=== PATIENT | male | born 1965 | race Caucasian/White ===

== ENCOUNTER 2017-10-23 15:45 | Observation (INO) | payer OTHER, SELFPAY ==
[2017-10-23] VITALS (10 sets, daily range): BP systolic 111–124; BP diastolic 69–91; PULSE 66–95; RESP 12–16; TEMP 36.4–37.1; O2SAT 96–100; BMI 29.9; BMI 27.8
--- NOTE | 2017-10-23 16:06 | EKG12_ITS ---
Test Reason : CHEST PAIN Blood Pressure : / mmHG Vent. Rate : 080 BPM Atrial Rate : 080 BPM P-R Int : 160 ms QRS Dur : 092 ms QT Int : 396 ms P-R-T Axes : 046 -29 019 degrees QTc Int : 456 ms Normal sinus rhythm Inferior infarct , age undetermined Abnormal ECG Confirmed by CORIE MCKINNEY ([id number]), clinical editor MARILY SILVA ([id number]) on 10/27/2017 1:42:25 PM Referred By: ROSY Confirmed By:CORIE MCKINNEY
--- NOTE | 2017-10-23 16:08 | RAD_ITS ---
STUDY: X-RAY CHEST REASON FOR EXAM: Male, 52 years old. Chest pain, history of [place] 9 years ago with cardiac stents TECHNIQUE: Single AP portable view of the chest. 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 The lungs are clear and expanded. There is no demonstrated pleural abnormality. Normal size heart. Normal mediastinum and [place]. Normal visualized pulmonary arteries. Normal visualized aortic arch and descending thoracic aorta. Normal visualized thoracic spine. Normal visualized ribs, clavicles, and shoulders. There is no demonstrated abnormality of the visualized soft tissue structures of the upper abdomen. RAD/Chest 1 View (Portable) IMPRESSION: Normal x-ray examination of the chest. Electronically Signed: Jd Elder MD at 16:42 EDT , Service support ,
[2017-10-23 16:16] LABS: Absolute Neutrophil Count 3.3 X10^3/uL (2.0-7.7); Basophil# 0.04 X10^3/uL; Basophil% 0.6 % (0-1); Eosinophil# 0.36 X10^3/uL; Eosinophils% 5.7 % (0-5); Hematocrit 44.4 % (40-54); Lymphocyte % 33.3 % (19-41); Mean Corp Hgb Conc 33.8 g/gl (32-36); Mean Corpuscular Volume 97.8 fL (80-94); Monocyte# 0.47 X10^3/uL; Monocyte% 7.5 % (0-10); Neutrophil # 3.32 X10^3/uL (2.7-7.7); Neutrophil % 52.7 % (47-70); Platelet Count 193 K/mm3 (150-450); RBC Distribution Width CV 13.5 % (11.6-14.6); Red Blood Count 4.54 M/mm3 (4.6-6.2); White Blood Count 6.3 K/mm3 (4.4-11.0)
[2017-10-23 16:18] LABS: POSITIVE COUNT NO; POSITIVE DIFFERENTIAL NO; POSITIVE MORPHOLOGY NO
[2017-10-23 16:33] LABS: Anion Gap 6 (5-15); BUN 11 mg/dL (7-18); BUN/Creat Ratio 10.6 RATIO (10-20); Calcium,Total 8.7 mg/dL (8.5-10.1); Chloride 106 mmol/L (98-107); Creatinine, Serum 1.04 mg/dL (0.70-1.30); EST Glomerular Filtration Rate 79 mL/min (>60); Est Glom Filt Rate - Afr Amer 96 mL/min (>60); Estimated Creatinine Clearance 89.12 ml/min; Glucose 119 mg/dL (74-106); Potassium 3.8 mmol/L (3.5-5.1); Sodium Level 138 mmol/L (136-145)
--- NOTE | 2017-10-23 18:24 | ED.DCSUM_ITS ---
- ER Visit Summary Date of Service: 10/23/17 Chief Complaint: Chest pain History of Present Illness: The patient is a 52 M presenting for evaluation secondary chest pain. Patient has a underlying history of coronary artery disease. Patient states that he received 6 stents 9 years ago and his most recent stress test was 4 years ago. Patient was at rest today and he had a sudden onset of chest pressure. Patient states that it was associated with diaphoresis and a feeling of presyncope. Patient states that it did not improve with a 9-year-old nitroglycerin pill that he took so he came to the emergency department. Denies any PE risk factors. Patient does take hypertension high cholesterol medications and occasionally smokes. Physical Examination: Vital signs are within normal limits, patient is afebrile. General: Patient is well-nourished well-developed and in no acute distress. Head: Normocephalic, atraumatic Eyes: Pupils equal round and reactive bilaterally, extra occular motion intact bialterally ENT: Moist mucous membranes Neck: Supple, no lymphadenopathy, no JVD, no meningismus CVS: Heart regular rate and rhythm, no murmurs, rubs or gallops, radial pulses 2 + bilaterally Resp: Respirations nondistressed, lung sounds clear bilaterally Abdomen: Soft, nontender, nondistended, no palpable masses, normal bowel sounds Back: Nontender Extremities: Nontender, atraumatic, active full range of motion, no peripheral edema Skin: warm, no rashes, no petechia Neuro: Alert and oriented x 4, CN 2-12 intact, no lateralizing neurological defecits Psyc: Normal affect Test Results: EKG shows sinus rhythm of [address] segments normal T waves and old Q waves inferiorly. Repeat EKG is unchanged from this. CBC chemistry troponin unremarkable, chest x-ray unremarkable per radiology Emergency Department Course and Treatment: Patient presented for evaluation secondary to chest pain. Patient's workup was negative as noted above. Patient was administered aspirin and nitroglycerin in the emergency department was chest pain-free on reevaluation. Patient's JENN risk score is 3 out of 7 and his heart score is 5. I do believe that he requires admission. Patient will be admitted under the hospitalist. Disposition: Admission Impression: 1 chest pain 2 history of coronary artery disease This note was generated with [employer] dictation software. It may contain incorrect words, spelling, and punctuation that were not noted in review of the chart prior to signing ED Disposition - Plan for ED Patient: Chief Complaint: Chest Pain
--- NOTE | 2017-10-23 19:04 | PCM.HP.STD ---
Problem List (1) Coronary artery disease Status: Chronic (2) H/O percutaneous transluminal coronary angioplasty Status: Chronic (3) HLD (hyperlipidemia) Status: Chronic Qualifiers: (4) HTN (hypertension) Status: Chronic Qualifiers: History of Present Illness Date of Admission: 10/23/17 Chief Complaint: Chest pain. The patient is a 52 year old M with past medical history as mentioned above presented to the medicine because of chest pain. His symptoms started today when he was driving with sudden onset chest pain, retrosternal/epigastric pain, dull aching pain, 5 out of 10 in severity, lasted for few minutes, associated with blurry vision and mild dizziness as well as diaphoresis and he was about to pass out and there was no aggravating or relieving factors. He took nitroglycerin which he has in his car but without improvement. He mentioned that his vision improved but he continued to have some chest discomfort/pressure. He denied associated shortness of breath, syncope but he reported that he was about to pass out. He denied nausea or vomiting. He denied heartburn or abdominal pain. He denied facial numbness or tingling. Denied slurred speech, focal arm or leg weakness. In the emergency room, his vital signs were stable. His routine blood work was unremarkable. His troponin was negative. EKG revealed normal sinus rhythm without evidence of acute ischemic changes. Chest x-ray showed no acute infiltrate, consolidation or effusion. He is being admitted for atypical chest pain for evaluation. Past Medical History Past Medical History (Chronic Problems): Chronic Problems (Last Updated 08/06/17 @ 10:02 by Zee King) Coronary artery disease (Chronic) H/O percutaneous transluminal coronary angioplasty (Chronic) HLD (hyperlipidemia) (Chronic) HTN (hypertension) (Chronic) Old myocardial infarction (Chronic) Atherosclerotic heart disease of [place] coronary artery without angina pectoris (Chronic) Allergies No Known Allergies Allergy (Verified 08/12/17 09:41) Home Medications: Ambulatory Orders Medication Instructions Recorded aspirin 81 mg tablet,delayed 81 mg PO QDAY 08/06/17 release clonazepam 0.5 mg tablet 0.5 mg PO PRN PRN 10 Days #30 tab 08/06/17 clopidogrel 75 mg tablet 75 mg PO QDAY 90 Days #90 tab 08/06/17 ezetimibe 10 mg tablet 10 mg PO QDAY 90 Days #90 tab 08/06/17 famotidine 20 mg tablet 20 mg PO QDAY 08/06/17 lisinopril 10 mg tablet 10 mg PO QDAY 90 Days #90 tab 08/06/17 loratadine 10 mg tablet 10 mg PO QDAY PRN 08/06/17 nitroglycerin 0.4 mg sublingual 0.4 mg SUBLINGUAL Q5M PRN 08/06/17 tablet pravastatin 80 mg tablet 80 mg PO QDAY 90 Days #90 tab 08/06/17 tadalafil 5 mg tablet 5 mg PO QDAY 30 Days #30 tab 08/06/17 Surgical History: - - PTCA. Psychiatric History: No pertinent psych hx Lives: Spouse/ Significant Other Smoking Status: Current some day smoker Tobacco Use: Cigars Alcohol: Heavy Drugs: None - *Family History Maternal History Items: No pertinent history Paternal History Items: No pertinent history Review of Systems Constitutional: Denies: Anorexia, Chills, Fever, Weakness Eyes: Reports: Blurred vision, Double vision. Denies: Drainage, Redness, Vision Change HEENT: Denies: Difficulty Hearing, Ear Pain, Eye Pain, Nasal bleeding, Nasal Congestion, Sore Throat Cardiovascular: Reports: Chest Pain, Light Headedness. Denies: Chest Tightness, Edema, Heaviness, Orthopnea, Palpitations, Paroxysmal Noc. Dyspnea, Syncope Respiratory: Denies: Cough, Pleuritic Pain, Shortness of Breath, Sputum production, Wheezing Gastrointestinal: Reports: Nausea. Denies: Abdominal Pain, Constipation, Diarrhea, Vomiting Genitourinary: Denies: Dysuria, Frequency, Hematuria Musculoskeletal: Denies: Arm Pain, Back Pain, Foot Pain Skin: Denies: Dryness, Jaundice Neurological: Denies: Balance problems, Double vision, Change in Speech, Slurred speech, Focal weakness, Headaches, Incoordination Psychiatric: Reports: Anxiety. Denies: Depression Endocrine: Denies: Change in Body Habitus, Polydipsia VTE Information - Inpt Only VTE Present on Admission: No VTE Mechan Device Prophylaxis: None VTE Pharm Prophylaxis ordered?: No - Physical Exam General: Alert, Oriented x3, Cooperative, No apparent distress HEENT: Atraumatic, PERRLA, EOMI Oral: Moist Mucosa, No Gingival or Mucosal Lesions/ Ulcerations Neck: Supple, No JVD, Negative Carotid Bruits, Trachea Midline, Thyroid Normal Size and Texture Lungs: Clear to auscultation, No rhonchi, No wheeze, No rales, Diminished Cardiovascular: Regular rate, Regular Rhythm, Normal S1, Normal S2, No murmurs, PMI Normal Abdomen: Bowel Sounds Present, Soft, Non Tender, Non-Distended, No Hepato-splenomegaly Extremities: No clubbing, No cyanosis, No edema Skin: No rashes, No breakdown Lymphatic: No Cervical, Supraclavicular, or Inguinal Adenopathy Neurological: Cranial nerves II-XII grossly intact, Motor Exam 5/5 strength throughout Psych/Mental Status: Normal Affect, Appropriate, Alert and oriented to time, place, person, mood and affect Vital Signs Temp Pulse Resp BP Pulse Ox 98.7 F 68 16 120/81 H 98 10/23/17 18:55 10/23/17 18:55 10/23/17 18:55 10/23/17 18:55 10/23/17 18:55 Oxygen Flow Rate (L/min) 2 Oxygen Delivery Method Room Air Weight: 204 lb 12.951 oz Body Mass Index (BMI) 27.8 Laboratory Tests 10/23/17 10/23/17 Range/Units 15:50 15:50 WBC 6.3 (4.4-11.0) K/mm3 RBC 4.54 L (4.6-6.2) M/mm3 Hgb 15.0 (13.0-16.5) g/dl Hct 44.4 (40-54) % MCV 97.8 H (80-94) fL MCH 33.0 H (27.0-32.0) pg MCHC 33.8 (32-36) g/gl RDW 13.5 (11.6-14.6) % RDW Differential 48.0 H (35.1-43.9) fl Plt Count 193 (150-450) K/mm3 MPV 10.0 (6.2-12.0) fl Immature Gran % (Auto) 0.200 (0.0-0.9) % Neut % (Auto) 52.7 (47-70) % Lymph % (Auto) 33.3 (19-41) % [place] % (Auto) 7.5 (0-10) % Eos % (Auto) 5.7 H (0-5) % Baso % (Auto) 0.6 (0-1) % Absolute Neuts (auto) 3.3 (2.0-7.7) X10^3/uL Absolute Lymphs (auto) 2.10 (0.83-4.51) X10^3/ul Total Counted Not Reportable Sodium 138 (136-145) mmol/L Potassium 3.8 (3.5-5.1) mmol/L Chloride 106 (98-107) mmol/L Carbon Dioxide 26.0 (21.0-32.0) mmol/L Anion Gap 6 (5-15) BUN 11 (7-18) mg/dL Creatinine 1.04 (0.70-1.30) mg/dL Estim Creat Clear Calc 89.12 ml/min Est GFR (MDRD) Af Amer 96 (>60) mL/min Est GFR (MDRD) Non-Af 79 (>60) mL/min BUN/Creatinine Ratio 10.6 (10-20) RATIO Glucose 119 H (74-106) mg/dL Calcium 8.7 (8.5-10.1) mg/dL Troponin I < 0.02 (<0.06) ng/mL Clinical Impression(s) from Imaging Studies Chest X-Ray 10/23/17 16:08 IMPRESSION: Normal x-ray examination of the chest. Electronically Signed: Jd Elder MD at 16:42 EDT , Service support , Assessment/Plan This is a 52 years old male patient presented to the medicine because of chest pain with blurry vision and is being admitted for evaluation. #1 atypical chest pain: With symptoms of blurry vision and mild dizziness. EKG revealed no acute ischemic changes. Troponin was negative. Vital signs are stable. No symptoms suggestive of stroke. He denied numbness or tingling, no focal arm or leg weakness. Chest x-ray showed no acute findings. He does have a history of CAD status post multiple stents. Plan: Admit to PCU for observation, cardiac monitoring, continue aspirin and Plavix, serial cardiac enzymes, repeat EKG tomorrow morning, nuclear stress test tomorrow morning if cardiac enzymes are negative. #2 CAD status post stents: EKG and troponin was unremarkable. Plan as above. Continue aspirin, Plavix, and lisinopril. #3 hypertension: Blood pressure stable, continue lisinopril. #4 hyperlipidemia: Continue statins. #5 DVT prophylaxis: Low risk patient, no prophylaxis indicated. This note was generated with [employer] software. It may contain incorrect words, spelling, and punctuation that were not noted in checking the note before signing. Code Visit OBSV E&M: 03997 Initial observation care L3
--- NOTE | 2017-10-23 19:11 | HP.PCM_ITS ---
Problem List (1) Coronary artery disease Status: Chronic (2) H/O percutaneous transluminal coronary angioplasty Status: Chronic (3) HLD (hyperlipidemia) Status: Chronic Qualifiers: (4) HTN (hypertension) Status: Chronic Qualifiers: History of Present Illness Date of Admission: 10/23/17 Chief Complaint: Chest pain. The patient is a 52 year old M with past medical history as mentioned above presented to the medicine because of chest pain. His symptoms started today when he was driving with sudden onset chest pain, retrosternal/epigastric pain, dull aching pain, 5 out of 10 in severity, lasted for few minutes, associated with blurry vision and mild dizziness as well as diaphoresis and he was about to pass out and there was no aggravating or relieving factors. He took nitroglycerin which he has in his car but without improvement. He mentioned that his vision improved but he continued to have some chest discomfort/ pressure. He denied associated shortness of breath, syncope but he reported that he was about to pass out. He denied nausea or vomiting. He denied heartburn or abdominal pain. He denied facial numbness or tingling. Denied slurred speech, focal arm or leg weakness. In the emergency room, his vital signs were stable. His routine blood work was unremarkable. His troponin was negative. EKG revealed normal sinus rhythm without evidence of acute ischemic changes. Chest x-ray showed no acute infiltrate, consolidation or effusion. He is being admitted for atypical chest pain for evaluation. Past Medical History Past Medical History (Chronic Problems): Chronic Problems (Last Updated 08/06/17 @ 10:02 by Zee King) Coronary artery disease (Chronic) H/O percutaneous transluminal coronary angioplasty (Chronic) HLD (hyperlipidemia) (Chronic) HTN (hypertension) (Chronic) Old myocardial infarction (Chronic) Atherosclerotic heart disease of [place] coronary artery without angina pectoris (Chronic) Allergies No Known Allergies Allergy (Verified 08/12/17 09:41) Home Medications: Ambulatory Orders Medication Instructions Recorded aspirin 81 mg tablet,delayed 81 mg PO QDAY 08/06/17 release clonazepam 0.5 mg tablet 0.5 mg PO PRN PRN 10 Days #30 tab 08/06/17 clopidogrel 75 mg tablet 75 mg PO QDAY 90 Days #90 tab 08/06/17 ezetimibe 10 mg tablet 10 mg PO QDAY 90 Days #90 tab 08/06/17 famotidine 20 mg tablet 20 mg PO QDAY 08/06/17 lisinopril 10 mg tablet 10 mg PO QDAY 90 Days #90 tab 08/06/17 loratadine 10 mg tablet 10 mg PO QDAY PRN 08/06/17 nitroglycerin 0.4 mg sublingual 0.4 mg SUBLINGUAL Q5M PRN 08/06/17 tablet pravastatin 80 mg tablet 80 mg PO QDAY 90 Days #90 tab 08/06/17 tadalafil 5 mg tablet 5 mg PO QDAY 30 Days #30 tab 08/06/17 Surgical History: - - PTCA. Psychiatric History: No pertinent psych hx Lives: Spouse/ Significant Other Smoking Status: Current some day smoker Tobacco Use: Cigars Alcohol: Heavy Drugs: None - *Family History Maternal History Items: No pertinent history Paternal History Items: No pertinent history Review of Systems Constitutional: Denies: Anorexia, Chills, Fever, Weakness Eyes: Reports: Blurred vision, Double vision. Denies: Drainage, Redness, Vision Change HEENT: Denies: Difficulty Hearing, Ear Pain, Eye Pain, Nasal bleeding, Nasal Congestion, Sore Throat Cardiovascular: Reports: Chest Pain, Light Headedness. Denies: Chest Tightness , Edema, Heaviness, Orthopnea, Palpitations, Paroxysmal Noc. Dyspnea, Syncope Respiratory: Denies: Cough, Pleuritic Pain, Shortness of Breath, Sputum production, Wheezing Gastrointestinal: Reports: Nausea. Denies: Abdominal Pain, Constipation, Diarrhea, Vomiting Genitourinary: Denies: Dysuria, Frequency, Hematuria Musculoskeletal: Denies: Arm Pain, Back Pain, Foot Pain Skin: Denies: Dryness, Jaundice Neurological: Denies: Balance problems, Double vision, Change in Speech, Slurred speech, Focal weakness, Headaches, Incoordination Psychiatric: Reports: Anxiety. Denies: Depression Endocrine: Denies: Change in Body Habitus, Polydipsia VTE Information - Inpt Only VTE Present on Admission: No VTE Mechan Device Prophylaxis: None VTE Pharm Prophylaxis ordered?: No - Physical Exam General: Alert, Oriented x3, Cooperative, No apparent distress HEENT: Atraumatic, PERRLA, EOMI Oral: Moist Mucosa, No Gingival or Mucosal Lesions/ Ulcerations Neck: Supple, No JVD, Negative Carotid Bruits, Trachea Midline, Thyroid Normal Size and Texture Lungs: Clear to auscultation, No rhonchi, No wheeze, No rales, Diminished Cardiovascular: Regular rate, Regular Rhythm, Normal S1, Normal S2, No murmurs, PMI Normal Abdomen: Bowel Sounds Present, Soft, Non Tender, Non-Distended, No Hepato- splenomegaly Extremities: No clubbing, No cyanosis, No edema Skin: No rashes, No breakdown Lymphatic: No Cervical, Supraclavicular, or Inguinal Adenopathy Neurological: Cranial nerves II-XII grossly intact, Motor Exam 5/5 strength throughout Psych/Mental Status: Normal Affect, Appropriate, Alert and oriented to time, place, person, mood and affect Vital Signs Temp Pulse Resp BP Pulse Ox 98.7 F 68 16 120/81 H 98 10/23/17 18:55 10/23/17 18:55 10/23/17 18:55 10/23/17 18:55 10/23/17 18:55 Oxygen Flow Rate (L/min) 2 Oxygen Delivery Method Room Air Weight: 204 lb 12.951 oz Body Mass Index (BMI) 27.8 Laboratory Tests 3 10/23/17 10/23/17 Range/Units 15:50 15:50 WBC 6.3 (4.4-11.0) K/mm3 RBC 4.54 L (4.6-6.2) M/mm3 Hgb 15.0 (13.0-16.5) g/dl Hct 44.4 (40-54) % MCV 97.8 H (80-94) fL MCH 33.0 H (27.0-32.0) pg MCHC 33.8 (32-36) g/gl RDW 13.5 (11.6-14.6) % RDW Differential 48.0 H (35.1-43.9) fl Plt Count 193 (150-450) K/mm3 MPV 10.0 (6.2-12.0) fl Immature Gran % (Auto) 0.200 (0.0-0.9) % Neut % (Auto) 52.7 (47-70) % Lymph % (Auto) 33.3 (19-41) % [place] % (Auto) 7.5 (0-10) % Eos % (Auto) 5.7 H (0-5) % Baso % (Auto) 0.6 (0-1) % Absolute Neuts (auto) 3.3 (2.0-7.7) X10^3/uL Absolute Lymphs (auto) 2.10 (0.83-4.51) X10^3/ul Total Counted Not Reportable Sodium 138 (136-145) mmol/L Potassium 3.8 (3.5-5.1) mmol/L Chloride 106 (98-107) mmol/L Carbon Dioxide 26.0 (21.0-32.0) mmol/L Anion Gap 6 (5-15) BUN 11 (7-18) mg/dL Creatinine 1.04 (0.70-1.30) mg/dL Estim Creat Clear Calc 89.12 ml/min Est GFR (MDRD) Af Amer 96 (>60) mL/min Est GFR (MDRD) Non-Af 79 (>60) mL/min BUN/Creatinine Ratio 10.6 (10-20) RATIO Glucose 119 H (74-106) mg/dL Calcium 8.7 (8.5-10.1) mg/dL Troponin I < 0.02 (<0.06) ng/mL Clinical Impression(s) from Imaging Studies Chest X-Ray 10/23/17 16:08 IMPRESSION: Normal x-ray examination of the chest. Electronically Signed: Jd Elder MD at 16:42 EDT , Service support , Assessment/Plan This is a 52 years old male patient presented to the medicine because of chest pain with blurry vision and is being admitted for evaluation. #1 atypical chest pain: With symptoms of blurry vision and mild dizziness. EKG revealed no acute ischemic changes. Troponin was negative. Vital signs are stable. No symptoms suggestive of stroke. He denied numbness or tingling, no focal arm or leg weakness. Chest x-ray showed no acute findings. He does have a history of CAD status post multiple stents. Plan: Admit to PCU for observation, cardiac monitoring, continue aspirin and Plavix, serial cardiac enzymes, repeat EKG tomorrow morning, nuclear stress test tomorrow morning if cardiac enzymes are negative. #2 CAD status post stents: EKG and troponin was unremarkable. Plan as above. Continue aspirin, Plavix, and lisinopril. #3 hypertension: Blood pressure stable, continue lisinopril. #4 hyperlipidemia: Continue statins. #5 DVT prophylaxis: Low risk patient, no prophylaxis indicated. This note was generated with [employer] software. It may contain incorrect words, spelling, and punctuation that were not noted in checking the note before signing. Code Visit OBSV E&M: 45988 Initial observation care L3
[2017-10-23] MEDS: 0.9% Normal Saline 1,000 ML 75 ML IV (20:56)
[2017-10-24 02:56] VITALS: PULSE 76
[2017-10-24 03:01] VITALS: BP 104/67; PULSE 62; RESP 14; TEMP 36.7; O2SAT 96
--- NOTE | 2017-10-24 04:56 | EKG12_ITS ---
Test Reason : AM EKG Blood Pressure : / mmHG Vent. Rate : 074 BPM Atrial Rate : 074 BPM P-R Int : 158 ms QRS Dur : 096 ms QT Int : 388 ms P-R-T Axes : 047 -19 032 degrees QTc Int : 430 ms Normal sinus rhythm Normal ECG When compared with ECG of 23-OCT-2017 16:07, MANUAL COMPARISON REQUIRED, DATA IS UNCONFIRMED Confirmed by CORIE MCKINNEY ([id number]), editor managing director MARILY SILVA ([id number]) on 10/27/2017 3:29:32 PM Referred By: KUMAR Confirmed By:CORIE MCKINNEY
[2017-10-24 05:42] VITALS: BP 126/74; PULSE 75; RESP 14; TEMP 36.8; O2SAT 96
[2017-10-24] MEDS: Lisinopril 10 MG Tablet PO (05:47)
[2017-10-24] MEDS: Clopidogrel Bisulfate 75 MG Tablet PO (05:47)
--- NOTE | 2017-10-24 05:55 | EKG12_ITS ---
Test Reason : REPEAT Blood Pressure : / mmHG Vent. Rate : 076 BPM Atrial Rate : 076 BPM P-R Int : 162 ms QRS Dur : 096 ms QT Int : 412 ms P-R-T Axes : 049 -27 036 degrees QTc Int : 463 ms Normal sinus rhythm Inferior infarct , age undetermined Abnormal ECG Confirmed by CORIE MCKINNEY ([id number]), medical editor MARILY SILVA ([id number]) on 10/27/2017 1:42:44 PM Referred By: VANNA Confirmed By:CORIE MCKINNEY
[2017-10-24] MEDS: Ezetimibe 10 MG Tablet PO (09:53)
[2017-10-24] MEDS: Famotidine 20 MG Tablet PO (09:53)
--- NOTE | 2017-10-24 09:58 | STRESSREP ---
Stress Test Report Exercise myocardial perfusion stress test. 52-year-old man with a history of chest pain. Stress protocol: Resting EKG demonstrates normal sinus rhythm with a rate of 76 bpm normal intervals and noted resting blood pressure is 130/82 mmHg. The patient exercised according to the regular Abhinav protocol for total duration of 8 minutes completing 2 minutes into stage III of the Abhinav protocol. The maximum heart rate attained was 162 bpm which was 97% maximum predicted heart rate the maximum workload attained was 10.1 metabolic equivalents. At rest there were no ST or T-wave changes noticed ischemia peak exercise upsloping ST changes were noted with no meet the criteria for ischemia. No clinical angina was noted no arrhythmias were noted. The test was terminated due to leg fatigue. The resting blood pressure was 130/82 with a final blood pressure 134/78. Myocardial perfusion protocol. 11.8 mCi of technetium 99m sestamibi was injected at rest. The patient exercised according to regular Abhinav protocol for 8 minutes attaining 97% maximum predicted heart rate at peak exercise 34.1 mCi of technetium 99m sestamibi was injected stress images were obtained stress and rest images were reconstructed and compared in the short axis vertical long and horizontal long axis. Gated images were also obtained. Perfusion SPECT analysis. Review of the stress images demonstrate normal uptake of tracer noted in all areas of the myocardium. The resting images similarly demonstrate normal uptake of tracer noted in all areas of the myocardium. No areas of reversibility are noted suggest ischemia. No previous infarct is noted. Gated SPECT analysis. Gated ejection fraction is 66%. Conclusion: Normal exercise myocardial perfusion stress test at a high workload. Preserved ejection fraction. No angina noted.
[2017-10-24 10:56] VITALS: BP 104/64; PULSE 72; RESP 16; TEMP 36.7; O2SAT 99
--- NOTE | 2017-10-24 11:10 | PCM.DC ---
- Discharge Diagnoses Current Active Problems: Current Active and Chronic Problems (Last Updated 08/06/17 @ 10:02 by Zee King) Coronary artery disease (Chronic) You will use the following diet at home:: Cardiac Discharge Activity: Return to Normal Activity Allergies/Adverse Reactions: Allergies No Known Allergies Allergy (Verified 08/12/17 09:41) Medications to take at Discharge aspirin 81 mg tablet,delayed release 81 mg PO QDAY 08/06/17 clonazepam 0.5 mg tablet 0.5 mg PO BID 10 Days #30 tab 08/06/17 clopidogrel 75 mg tablet 75 mg PO QDAY 90 Days #90 tab 08/06/17 ezetimibe 10 mg tablet 10 mg PO QDAY 90 Days #90 tab 08/06/17 famotidine 20 mg tablet 20 mg PO QDAY 08/06/17 loratadine 10 mg tablet 10 mg PO QDAY PRN 08/06/17 nitroglycerin 0.4 mg sublingual tablet 0.4 mg SUBLINGUAL Q5M PRN 08/06/17 pravastatin 80 mg tablet 80 mg PO QDAY 90 Days #90 tab 08/06/17 tadalafil 5 mg tablet 5 mg PO PRN PRN 30 Days #30 tab 08/06/17 Lisinopril [Prinivil] 5 mg PO QDAY 90 Days #90 tab 10/24/17 Primary Care Physician: Sergei Henley MD [Primary Care Provider] - Please follow up with your Primary Care Physician in: IN 2-3 WEEKS
--- NOTE | 2017-10-24 11:11 | DS.PCM_ITS ---
Discharge Date and Diagnosis Date of Admission: 10/23/17 Date of Discharge: 10/24/17 - Primary Discharge Diagnosis atypical chest pain most probably due to cart/musculoskeletal pain - Secondary Discharge Diagnosis Chronic Problems (Last Updated 08/06/17 @ 10:02 by Zee King) Coronary artery disease (Chronic) H/O percutaneous transluminal coronary angioplasty (Chronic) HLD (hyperlipidemia) (Chronic) HTN (hypertension) (Chronic) Old myocardial infarction (Chronic) Atherosclerotic heart disease of [place] coronary artery without angina pectoris (Chronic) Hospital Course and Treatment Imaging Results: 10/24/17 05:55 Nuclear Stress Test - Treadmil [NM] Routine Summary of Care Provided: [] This is a 52 years old male patient presented to the medicine because of chest pain with blurry vision and is being admitted for evaluation. #1 atypical chest pain most probably due to cart/musculoskeletal pain:. EKG revealed no acute ischemic changes. Troponin was negative. Vital signs are stable. No symptoms suggestive of stroke. He denied numbness or tingling, no focal arm or leg weakness. Chest x-ray showed no acute findings. He does have a history of CAD status post multiple stents. Patient was admitted on the monitored bed. continue aspirin and Plavix, serial cardiac enzymes, repeat EKG does not show any acute change. nuclear stress test done and does not show stress-induced ischemia. EF 66%. Reported as normal exercise myocardial perfusion stress test at high workload. No Angina noted. #2 CAD status post stents: EKG and troponin was unremarkable. Plan as above. Continue aspirin, Plavix, and lisinopril. #3 hypertension: Blood pressure stable, continue lisinopril. #4 hyperlipidemia: Continue statins. #5 DVT prophylaxis: Low risk patient, no prophylaxis indicated. Discharge meds reconciliation done. Discharge follow-up instructions completed. Discharge Activity: Return to Normal Activity Home Medications: Medications to take at Discharge aspirin 81 mg tablet,delayed release 81 mg PO QDAY 08/06/17 clonazepam 0.5 mg tablet 0.5 mg PO BID 10 Days #30 tab 08/06/17 clopidogrel 75 mg tablet 75 mg PO QDAY 90 Days #90 tab 08/06/17 ezetimibe 10 mg tablet 10 mg PO QDAY 90 Days #90 tab 08/06/17 famotidine 20 mg tablet 20 mg PO QDAY 08/06/17 loratadine 10 mg tablet 10 mg PO QDAY PRN 08/06/17 nitroglycerin 0.4 mg sublingual tablet 0.4 mg SUBLINGUAL Q5M PRN 08/06/17 pravastatin 80 mg tablet 80 mg PO QDAY 90 Days #90 tab 08/06/17 tadalafil 5 mg tablet 5 mg PO PRN PRN 30 Days #30 tab 08/06/17 Lisinopril [Prinivil] 5 mg PO QDAY 90 Days #90 tab 10/24/17 Primary Care Physician: Sergei Henley MD [Primary Care Provider] - Please follow up with your Primary Care Physician in: IN 2-3 WEEKS Meaningful Use Info Meaningful Use Diagnoses (Choose all that apply): None applicable Code Visit OBSV E&M: 79489 Observation care discharge
[2017-10-24 11:14] VITALS: PULSE 85
== END 2017-10-24 11:10 | disposition home or self-care (01) ==
LOC: ED 18:03 → PCU 18:18
PROVIDERS: Admitting Provider Hospitalist; Emergency Provider Emergency Medicine; Family Provider Family Medicine; PCP Family Medicine; Visit Provider Internal Medicine
DX: R07.89 Other chest pain (principal); I25.10 Atherosclerotic heart disease of native coronary artery without angina pectoris; I10 Essential (primary) hypertension; E78.5 Hyperlipidemia, unspecified; Z79.899 Other long term (current) drug therapy; Z79.82 Long term (current) use of aspirin; Z79.02 Long term (current) use of antithrombotics/antiplatelets; F17.290 Nicotine dependence, other tobacco product, uncomplicated; Z95.5 Presence of coronary angioplasty implant and graft; I25.2 Old myocardial infarction
CPT/HCPCS: 36415; 71045; 78452; 80048; 84484; 85025; 93005; 93017; 96360; 96361; 99218; 99285; 99406; A9500; J7030; A4216; G0378

== ENCOUNTER → 2019-01-14 08:31 | Outpatient (CLI) | payer OTHER, SELFPAY ==
[2018-07-28 08:20] VITALS: BMI 28.8
[2019-01-14 10:39] LABS: ALB/GLOB Ratio 1.1 RATIO (0.9-2.4); AST(SGOT) 35 U/L (15-37); Alanine Aminotransfer ALT/SGPT 50 U/L (16-61); Alkaline Phosphatase 85 U/L (45-117); Anion Gap 6 (5-15); BUN 12 mg/dL (7-18); BUN/Creat Ratio 13.3 RATIO (10-20); Calcium,Total 9.3 mg/dL (8.5-10.1); Chloride 107 mmol/L (98-107); Cholesterol 156 mg/dL (200); EST Glomerular Filtration Rate 92 mL/min (>60); Est Glom Filt Rate - Afr Amer 112 mL/min (>60); Globulin 3.6 g/dL (2.2-4.2); Glucose 102 mg/dL (74-106); High Density Lipoprotein 58 mg/dL; Potassium 4.6 mmol/L (3.5-5.1); Protein, Total 7.6 g/dL (6.4-8.2); Sodium Level 140 mmol/L (136-145); Triglycerides 103 mg/dL; Very Low Density Lipoprotein 21 mg/dL (5-40)
== END ==
PROVIDERS: Family Provider Family Medicine; PCP Family Medicine; Referring Provider Family Medicine; Visit Provider Family Medicine
DX: F43.29 Adjustment disorder with other symptoms (principal)
CPT/HCPCS: 36415; 80053; 80061

== ENCOUNTER → 2019-08-24 07:04 | Outpatient (CLI) | payer OTHER, SELFPAY ==
[2019-08-16 08:34] VITALS: BMI 28.2
[2019-08-24 10:45] LABS: ALB/GLOB Ratio 0.9 RATIO (0.9-2.4); AST(SGOT) 27 U/L (15-37); Alanine Aminotransfer ALT/SGPT 49 U/L (16-61); Albumin, Serum 3.8 g/dL (3.2-5.0); Alkaline Phosphatase 72 U/L (45-117); Anion Gap 3 (5-15); BUN 19 mg/dL (7-18); BUN/Creat Ratio 19.2 RATIO (10-20); Chloride 108 mmol/L (98-107); Cholesterol 186 mg/dL (200); Creatinine, Serum 0.99 mg/dL (0.70-1.30); EST Glomerular Filtration Rate 83 mL/min (>60); Est Glom Filt Rate - Afr Amer 101 mL/min (>60); Globulin 4.1 g/dL (2.2-4.2); Glucose 104 mg/dL (74-106); High Density Lipoprotein 60 mg/dL; PSA,Total - Annual Screen 0.55 ng/mL (0.00-4.00); Potassium 4.2 mmol/L (3.5-5.1); Protein, Total 7.9 g/dL (6.4-8.2); Sodium Level 140 mmol/L (136-145); Triglycerides 84 mg/dL; Very Low Density Lipoprotein 17 mg/dL (5-40)
[2019-08-24 10:49] LABS: AST(SGOT) 29 U/L (15-37); Alanine Aminotransfer ALT/SGPT 51 U/L (16-61); Albumin, Serum 3.9 g/dL (3.2-5.0); Alkaline Phosphatase 73 U/L (45-117); Bilirubin, Direct 0.06 mg/dL (0.00-0.30); Cholesterol 186 mg/dL (200); Globulin 3.9 g/dL (2.2-4.2); High Density Lipoprotein 61 mg/dL; Protein, Total 7.8 g/dL (6.4-8.2); Triglycerides 78 mg/dL; Very Low Density Lipoprotein 16 mg/dL (5-40)
== END ==
PROVIDERS: Family Provider Family Medicine; PCP Family Medicine; Referring Provider Internal Medicine Cardiovascular Disease; Visit Provider Internal Medicine Cardiovascular Disease
DX: I25.10 Atherosclerotic heart disease of native coronary artery without angina pectoris (principal); I10 Essential (primary) hypertension; E78.00 Pure hypercholesterolemia, unspecified; E78.5 Hyperlipidemia, unspecified; N52.9 Male erectile dysfunction, unspecified; Z95.5 Presence of coronary angioplasty implant and graft
CPT/HCPCS: 36415; 80053; 80061; 80076; 84153; G0103

== ENCOUNTER → 2019-08-26 12:02 | Outpatient (CLI) | payer OTHER, SELFPAY ==
[2019-08-16 08:34] VITALS: BMI 28.2
--- NOTE | 2019-08-26 12:06 | RAD_ITS ---
STUDY: X-RAY - RIGHT ANKLE REASON FOR EXAM: Male, 53 years old. Rolled right ankle today, swelling and pain lateral TECHNIQUE: 3 view(s) of the ankle. COMPARISON: None. FINDINGS: No fracture or dislocation. Large ankle joint effusion. Joint spaces are otherwise well-maintained. Marked lateral soft tissue swelling. Soft tissues and bony structures are otherwise unremarkable. RAD/Ankle min 3 Views IMPRESSION: 1. Joint effusion. 2. Marked lateral soft tissue swelling. Otherwise negative study. Electronically Signed: Felicita Turk MD at 17:55 EST Tel , Service support ,
== END ==
PROVIDERS: PCP Family Medicine; Referring Provider Nurse Practitioner Family; Visit Provider Nurse Practitioner Family
DX: S99.911A Unspecified injury of right ankle, initial encounter (principal); X50.1XXA Overexertion from prolonged static or awkward postures, initial encounter
CPT/HCPCS: 73610

== ENCOUNTER → 2020-09-20 08:24 | Outpatient (CLI) | payer OTHER, SELFPAY ==
[2020-08-14 08:21] VITALS: BMI 29.1
[2020-09-20 10:39] LABS: AST(SGOT) 28 U/L (15-37); Alanine Aminotransfer ALT/SGPT 52 U/L (16-61); Alkaline Phosphatase 69 U/L (45-117); Anion Gap 5 (5-15); BUN 12 mg/dL (7-18); BUN/Creat Ratio 11.3 RATIO (10-20); Calcium,Total 9.5 mg/dL (8.5-10.1); Chloride 106 mmol/L (98-107); Creatinine, Serum 1.06 mg/dL (0.70-1.30); EST Glomerular Filtration Rate 77 mL/min (>60); Est Glom Filt Rate - Afr Amer 93 mL/min (>60); Globulin 4.2 g/dL (2.2-4.2); Glucose 102 mg/dL (74-106); PSA,Total - Annual Screen 0.96 ng/mL (0.00-4.00); Potassium 4.7 mmol/L (3.5-5.1); Protein, Total 8.2 g/dL (6.4-8.2); Sodium Level 139 mmol/L (136-145)
[2020-09-20 10:42] LABS: AST(SGOT) 33 U/L (15-37); Alanine Aminotransfer ALT/SGPT 52 U/L (16-61); Alkaline Phosphatase 75 U/L (45-117); Bilirubin, Direct 0.11 mg/dL (0.00-0.30); Cholesterol 198 mg/dL (200); Globulin 4.2 g/dL (2.2-4.2); High Density Lipoprotein 71 mg/dL; Protein, Total 8.2 g/dL (6.4-8.2); Triglycerides 135 mg/dL; Very Low Density Lipoprotein 27 mg/dL (5-40)
== END ==
PROVIDERS: PCP Family Medicine; Referring Provider Family Medicine; Visit Provider Internal Medicine Cardiovascular Disease
DX: Z12.5 Encounter for screening for malignant neoplasm of prostate (principal); E78.00 Pure hypercholesterolemia, unspecified; I25.10 Atherosclerotic heart disease of native coronary artery without angina pectoris
CPT/HCPCS: 36415; 80053; 80061; 80076; 84153; G0103

== ENCOUNTER 2021-10-30 14:59 | Observation (INO) | payer OTHER, SELFPAY ==
[2021-10-30] VITALS (15 sets, daily range): BP systolic 89–178; BP diastolic 52–97; PULSE 53–112; RESP 13–19; TEMP 2.7–36.9; O2SAT 98–100; BMI 30.2; BMI 29.0
--- NOTE | 2021-10-30 15:10 | ED.VIS.CHEST ---
HPI History of Present Illness Chief Complaint: Chest Pain Informant: patient Onset/Context/Timing Onset: Today and Hours (1) Activity at onset: gradual Timing: Continuous Quality: Positive for Tightness Location: Right Chest and Left Chest Worsened By: Breathing Relieved By: - (It improves briefly after exhaling after taking a deep breath) Associated Symptoms: Negative for Nausea, Vomiting, Diaphoresis, Dyspnea, Cough, Fever, Lightheadedness, Acid Reflux and Palpitations Narrative Narrative: Patient presents with chest pain that began approximately 1 hour prior to arrival. Patient states he was driving when this began. Patient states it is mainly over his upper chest. Patient describes it as a tightness. Patient states it is starting to radiate into his left arm. Patient states it is worse whenever he takes a deep breath but feels better briefly whenever he exhales. Patient denies any nausea or vomiting. Patient denies any diaphoresis. Patient denies any shortness of breath or cough. Patient denies any lightheadedness. Patient denies any palpitations. CVD Risk Factors: Positive for Hypertension and Hypercholesterolemia; Negative for Diabetes, Family History 1' </=55 and Smoking PE Risk Factors: Negative for Recent Travel/Surgery, Recent Immobilization, Prior DVT or PE, Cancer and OCP + Smoking + >/=35 PFSH PFSH Medical History Atherosclerotic heart disease of [place] coronary artery without angina pectoris Essential hypertension HLD (hyperlipidemia) Old myocardial infarction Presence of stent in coronary artery (~06/19/10) Home Medications aspirin 81 mg tablet,delayed release 81 mg PO QDAY 08/06/17 [History Last Taken 10/23/17] clopidogrel 75 mg tablet 75 mg PO QDAY 90 Days #90 tab 08/06/17 [History Last Taken 10/23/17] ezetimibe 10 mg tablet 10 mg PO QDAY 90 Days #90 tab 08/06/17 [History Last Taken 10/23/17] loratadine 10 mg tablet 10 mg PO QDAY PRN 08/06/17 [History Last Taken 10/23/17] nitroglycerin 0.4 mg sublingual tablet 0.4 mg SUBLINGUAL Q5M PRN 08/06/17 [History Last Taken 10/23/17] pravastatin 80 mg tablet 80 mg PO QDAY 90 Days #90 tab 08/06/17 [History Last Taken 10/23/17] Allergy/AdvReac Type Severity Reaction Status Date / Time No Known Allergies Allergy Verified 10/30/21 15:07 Family History Grandfather , age 76 CVA (cerebral vascular accident) Surgical History History of left heart catheterization (~12/2010) Presence of coronary angioplasty implant and graft (~06/19/10) Social History Smoking Status: Former smoker how long ago did patient quit smokin alcohol intake: current alcohol intake frequency: 0-2 drinks per day Alcohol type: beer substance use type: does not use caffeine: Yes Type: coffee Number of servings: 2 what type of physical activity do you participate in: none seatbelt use: sometimes do you feel safe at home: Yes ROS ROS ED Constitutional Constitutional ED: Denies chills or fever(s) Eyes Eyes: Denies blurry vision or change in vision ENT ENT ED: Denies rhinorrhea or sore throat Cardiovascular Cardiovascular: Reports chest pain; Denies palpitations Respiratory/Chest Respiratory/Chest: Denies cough or dyspnea Gastrointestinal Gastrointestinal: Denies abdominal pain, nausea or vomiting Genitourinary Genitourinary ED: Denies dysuria or hematuria Musculoskeletal Musculoskeletal: Denies back pain or neck pain Integumentary Denies abscess or rash Neurologic Neurologic: Denies headache(s) or weakness Allergic/Immunologic Allergic/Immunologic ED: Denies mouth swelling or urticaria EXAM Physical Exam Const Vital Signs: 10/30/21 15:00 10/30/21 15:04 10/30/21 15:16 Temperature 97.5 F L Temperature Source Temporal Pulse Rate 106 H Respiratory Rate 17 Respiratory Effort Normal Blood Pressure 178/97 H Blood Pressure Mean 124 Pulse Ox 99 100 Oxygen Delivery Method Room Air Room Air Oxygen Flow Rate (L/min) 10/30/21 15:41 10/30/21 15:46 10/30/21 15:50 Temperature Temperature Source Pulse Rate 86 99 107 H Respiratory Rate Respiratory Effort Blood Pressure 144/95 H 143/94 H 127/91 H Blood Pressure Mean Pulse Ox Oxygen Delivery Method Oxygen Flow Rate (L/min) 10/30/21 16:00 10/30/21 17:00 10/30/21 17:32 Temperature Temperature Source Pulse Rate 86 87 53 L Respiratory Rate 13 15 17 Respiratory Effort Blood Pressure 130/87 H 131/91 H 89/52 L Blood Pressure Mean 101 104 64 Pulse Ox 98 98 100 Oxygen Delivery Method Room Air Room Air Nasal Cannula Oxygen Flow Rate (L/min) 2 10/30/21 17:35 10/30/21 18:00 Temperature Temperature Source Pulse Rate 53 L 87 Respiratory Rate 13 Respiratory Effort Blood Pressure 98/68 125/85 H Blood Pressure Mean 78 98 Pulse Ox 100 Oxygen Delivery Method Nasal Cannula Oxygen Flow Rate (L/min) 2 Positive well nourished and well developed General Appearance ED: well developed and NAD HEENT normocephalic and atraumatic Eyes PERRL and EOMs intact bilaterally Neck supple and no JVD Chest Wall palpation of chest normal Resp normal respiratory effort and clear to auscultation bilaterally Effort and Inspection: Negative for respiratory distress Cardio regular rate, regular rhythm and no murmurs GI normal to inspection, nondistended, normoactive bowel sounds, soft to palpation, non-tender and non-distended Extremity normal to inspection General Extremety ED: Negative for edema or tenderness General Extremity: Negative for edema Neuro oriented x3, CN's II-XII intact bilaterally and no sensory deficits noted Sensorium / Orientation: awake and alert Motor Exam: strength 5/5 throughout Psych mental status grossly normal Heart Score History: Moderately Suspicious ECG: Normal Age: >45 - <65 years Risk Factors: >/= 3 Risk Factors or History of CAD Troponin: </= Normal Limit Score: 4 MDM MDM MDM Narrative Medical decision making narrative: Patient was given aspirin and sublingual nitroglycerin here. Patient had no relief with this. Patient was given a dose of morphine. EKG was obtained. On my interpretation, it showed a normal sinus rhythm with a rate of 105. TN interval, QRS interval, and QTc intervals were all normal. [place] was normal. There are no acute ST or T wave changes. CBC and basic metabolic profile was obtained and was within normal limits. Initial high-sensitivity troponin was less than 3. D-dimer was 0.37. Portable 1 view chest x-ray was obtained. On my interpretation, lung osman are clear. There is normal cardiac silhouette. Bony thorax is normal. There is no acute process noted. Radiologist also interpreted the x-ray and agrees. While here in the emergency department, patient had an episode of bradycardia and hypotension. Because of this, CTA of the chest was ordered. There is no evidence of pulmonary embolus or aortic dissection. Repeat EKG was also obtained. On my interpretation there is a normal sinus rhythm with a rate of 89. There are no acute ST or T wave changes. This was unchanged compared to previous EKG. Patient was given a dose of Dilaudid here. 2-hour repeat high-sensitivity troponin was also less than 3. Case was discussed with the hospitalist. He will admit the patient for observation. Patient understood and was agreeable with the plan. All questions were answered. Lab Data Attestation: I reviewed the patient's lab results. Labs: Laboratory Results - last 24 hr 10/30/21 10/30/21 10/30/21 15:15 15:15 15:15 WBC 7.2 RBC 4.96 Hgb 16.4 Hct 47.8 MCV 96.4 H MCH 33.1 H MCHC 34.3 RDW Std Deviation 44.9 H RDW Coeff of [place] 12.7 Plt Count 235 MPV 9.7 Immature Gran % (Auto) 0.300 Neut % (Auto) 58.0 Lymph % (Auto) 27.6 [place] % (Auto) 10.3 H Eos % (Auto) 3.4 Baso % (Auto) 0.4 Absolute Neuts (auto) 4.2 Absolute Lymphs (auto) 1.97 Nucleated RBC % 0 D-Dimer Quant (PE/DVT) 0.37 Sodium 140 Potassium 3.9 Chloride 106 Carbon Dioxide 30.0 Anion Gap 4 L BUN 19 H Creatinine 1.19 Estim Creat Clear Calc 74.27 Est GFR (MDRD) Af Amer 81 Est GFR (MDRD) Non-Af 67 BUN/Creatinine Ratio 16.0 Glucose 94 Calcium 9.5 Magnesium Troponin I High Sens < 3 L 10/30/21 10/30/21 15:15 17:18 WBC RBC Hgb Hct MCV MCH MCHC RDW Std Deviation RDW Coeff of [place] Plt Count MPV Immature Gran % (Auto) Neut % (Auto) Lymph % (Auto) [place] % (Auto) Eos % (Auto) Baso % (Auto) Absolute Neuts (auto) Absolute Lymphs (auto) Nucleated RBC % D-Dimer Quant (PE/DVT) Sodium Potassium Chloride Carbon Dioxide Anion Gap BUN Creatinine Estim Creat Clear Calc Est GFR (MDRD) Af Amer Est GFR (MDRD) Non-Af BUN/Creatinine Ratio Glucose Calcium Magnesium 2.3 Troponin I High Sens < 3 L Radiography Diagnostic Testing: Clinical Impression(s) from Imaging Studies Chest X-Ray 10/30/21 15:25 IMPRESSION: Hyperinflation. The lungs are clear. Electronically Signed: Keith Bragg MD at 15:44 EDT , Chest CTA 10/30/21 17:30 IMPRESSION: ASHD and mild atelectasis within the dependent portion of both upper and lower lobes. No evidence for pulmonary embolus. No evidence for aortic aneurysm periaortic leak or dissection Electronically Signed: Pato Mahmood MD at 18:27 EDT , EKG Initial EKG: Attestation: I personally reviewed and interpreted this EKG as follows: Interpretation: No Acute Injury Pattern and Sinus Tachycardia (105) Comments: Old inferior infarct Follow-up EKG: Attestation: I personally reviewed and interpreted this EKG as follows: Interpretation: Sinus Rhythm (89) and No Acute Injury Pattern Prior: Unchanged Discharge Plan Dx/Rx/DC Orders Clinical Impression: Chest pain Disposition Disposition: Acute Care Hospital [facility]
--- NOTE | 2021-10-30 15:14 | EKG12_ITS ---
Test Reason : CP Blood Pressure : / mmHG Vent. Rate : 089 BPM Atrial Rate : 089 BPM P-R Int : 170 ms QRS Dur : 104 ms QT Int : 376 ms P-R-T Axes : 044 -23 020 degrees QTc Int : 457 ms Normal sinus rhythm Inferior [place], age undetermined Confirmed by AMMON SY, CIERRA ([id number]), food expeditor JOY PAULSON ([id number]) on 11/01/2021 9:58:38 AM Referred By: ETHEL Confirmed By:CIERRA VERDE MD
[2021-10-30] MEDS: Aspirin 81 MG TAB.CHEW 324 MG PO (15:18)
--- NOTE | 2021-10-30 15:25 | RAD_ITS ---
STUDY: X-RAY CHEST REASON FOR EXAM: Male, 56 years old. Chest pain TECHNIQUE: Single AP portable view of the chest. COMPARISON: Comparison is made with prior examination dated 10/23/2017. FINDINGS: EKG electrodes are seen. Hyperinflation. The lungs are clear. There is no demonstrated pleural abnormality. Normal size heart. Normal mediastinum and [place]. Normal visualized pulmonary arteries. Normal visualized aortic arch and descending thoracic aorta. There are degenerative changes of the visualized thoracic spine. Normal visualized ribs, clavicles, and shoulders. There is no demonstrated abnormality of the visualized soft tissue structures of the upper abdomen. RAD/Chest 1 View (Portable) IMPRESSION: Hyperinflation. The lungs are clear. Electronically Signed: Keith Bragg MD at 15:44 EDT ,
[2021-10-30 15:29] LABS: Absolute Lymphocyte Count 1.97 X10^3/uL (0.83-4.51); Absolute Neutrophil Count 4.2 X10^3/uL (2.0-7.7); Basophil# 0.03 X10^3/uL; Basophil% 0.4 % (0-1); Eosinophil# 0.24 X10^3/uL; Eosinophils% 3.4 % (0-5); Hematocrit 47.8 % (40-54); Hemoglobin 16.4 g/dL (13.0-16.5); Lymphocyte # 1.97 X10^3/ul (0.83-4.51); Lymphocyte % 27.6 % (19-41); Mean Corp Hgb Conc 34.3 g/dL (32-36); Mean Corpuscular Hgb 33.1 pg (27.0-32.0); Mean Corpuscular Volume 96.4 fL (80-94); Mean Platelet Vol. 9.7 fl (6.2-12.0); Monocyte# 0.74 X10^3/uL; Monocyte% 10.3 % (0-10); NRBC Flagged by Analyzer 0 % (0-5); Neutrophil # 4.15 X10^3/uL (2.7-7.7); Platelet Count 235 K/mm3 (150-450); RBC Distribution Width CV 12.7 % (11.6-14.6); RBC Distribution Width SD 44.9 fl (35.1-43.9); Red Blood Count 4.96 M/mm3 (4.6-6.2); White Blood Count 7.2 K/mm3 (4.4-11.0)
[2021-10-30] MEDS: Nitroglycerin SL (ED/IMG/CATH) 0.4 MG TABLET SL ×3 (15:41→15:50)
[2021-10-30 15:48] LABS: Anion Gap 4 (5-15); BUN 19 mg/dL (7-18); Calcium,Total 9.5 mg/dL (8.5-10.1); Chloride 106 mmol/L (98-107); Creatinine, Serum 1.19 mg/dL (0.70-1.30); EST Glomerular Filtration Rate 67 mL/min (>60); Est Glom Filt Rate - Afr Amer 81 mL/min (>60); Estimated Creatinine Clearance 74.27 ml/min; Glucose 94 mg/dL (74-106); Potassium 3.9 mmol/L (3.5-5.1); Sodium Level 140 mmol/L (136-145); Troponin-I HS < 3 pg/mL (3.0-78.0)
[2021-10-30 16:10] LABS: D-Dimer Quantitative (DVT/PE) 0.37 FEU/ug/m (0.27-0.49)
[2021-10-30] MEDS: Morphine 4 MG/ML Syringe IV (17:22)
--- NOTE | 2021-10-30 17:30 | CT_ITS ---
STUDY: CTA CHEST REASON FOR EXAM: Male, 56 years old. Chest pain RADIATION DOSAGE (If Supplied By Facility): CTDIvol = ( 11.87 ) mGy, DLP = ( 446.90 ) mGycm TECHNIQUE: The examination was performed with the intravenous administration of IV 100mL Isovue-370. Post-processing of the angiographic images was performed, with multiplanar reformation and 3D reconstruction. Individualized dose optimization techniques were used for this CT. COMPARISON: None. FINDINGS: Normal enhancement of the main pulmonary artery and right and left pulmonary arteries. Normal enhancement of the bilateral peripheral pulmonary arteries. There is no demonstrated pulmonary embolism. Minor atherosclerotic changes of the aorta without evidence for aneurysm. There is no demonstrated aortic dissection. Heart size is normal. There is multivessel coronary artery disease.. Normal mediastinum. Normal hilar regions. Normal visualized trachea and bronchi. The lungs are well expanded. Mild atelectasis within the dependent portion of both upper and lower lobes. There are thin-walled cystic changes in both upper lobes likely emphysematous changes.. Normal pleura. Normal chest wall structures. Dorsal spine demonstrates degenerative changes Normal visualized upper abdomen. CT/CTA Chest W/WO Contrast IMPRESSION: ASHD and mild atelectasis within the dependent portion of both upper and lower lobes. No evidence for pulmonary embolus. No evidence for aortic aneurysm periaortic leak or dissection Electronically Signed: Pato Mahmood MD at 18:27 EDT ,
--- NOTE | 2021-10-30 17:33 | EKG12_ITS ---
Test Reason : CP Blood Pressure : / mmHG Vent. Rate : 105 BPM Atrial Rate : 105 BPM P-R Int : 162 ms QRS Dur : 092 ms QT Int : 352 ms P-R-T Axes : 063 -41 041 degrees QTc Int : 465 ms Sinus tachycardia Left axis deviation Inferior infarct , age undetermined Abnormal ECG Confirmed by AMMON SY, CIERRA ([id number]), editorial writer JOY PAULSON ([id number]) on 11/01/2021 9:58:52 AM Referred By: ED Confirmed By:CIERRA VERDE MD
[2021-10-30] MEDS: Ondansetron 4 MG/2 ML Vial IV (17:34)
[2021-10-30] MEDS: 0.9% Normal Saline 1,000 ML 999 ML IV (17:34)
[2021-10-30 17:41] LABS: Troponin-I HS < 3 pg/mL (3.0-78.0)
--- NOTE | 2021-10-30 17:48 | EKG12_ITS ---
Test Reason : CP Blood Pressure : / mmHG Vent. Rate : 088 BPM Atrial Rate : 088 BPM P-R Int : 172 ms QRS Dur : 096 ms QT Int : 378 ms P-R-T Axes : 048 -27 017 degrees QTc Int : 457 ms Normal sinus rhythm Inferior [place], age undetermined, cannot be excluded Confirmed by AMMON SY, CIERRA ([id number]), editorial specialist JOY PAULSON ([id number]) on 11/02/2021 8:56:08 AM Referred By: ETHEL Confirmed By:CIERRA VERDE MD
[2021-10-30] MEDS: HYDROmorphone 1 MG/ML Syringe 0.5 MG IV (18:49)
--- NOTE | 2021-10-30 19:04 | PCM.HP.STD ---
HPI - General General Date of Admission: 10/30/21 Date of Service: 10/30/21 Chief Complaint: Chest pain since morning 10/30/2021 HPI Narrative JOVANY MUÑIZ, is a 56 M with history of coronary artery disease status post stent in May and June 2010 came to ED for chest pain that started about 10 AM today. Initially he felt 3-4/10 intensity and thought probably dyspepsia and took antacids with no relief. The pain got worse, 10/10 intensity with radiation to left arm and interscapular area. Chest pain, pressure quality, constant without relief from nitroglycerin but improved with IV morphine. Chest pain gets worse with deep inspiration. He denies any unusual exertional work more than his normal daily routine. Denies associated shortness of breath, dizziness, lightheadedness, palpitation or diaphoresis. No cough, fever or reviewed recent URI symptoms. In ED, vitals BP 136/88, heart rate 88/min. No hypoxia or tachypnea. Patient 2 high-sensitivity troponins negative. First EKG at admission sinus tachycardia 105 bpm, LAD, old inferior infarct. Second EKG at 1747 hrs. normal sinus rhythm 89 bpm with no significant ST-T changes. QTc 457 ms. Labs reviewed. D-dimer negative. Patient had chest x-ray and CTA chest, individually reviewed. Chest x-ray clear lung, hyperinflation. Chest CTA no evidence for pulmonary embolism, aortic aneurysm, dissection or periaortic leak. Mild atelectasis within the dependent portions of both upper and lower lobes. [facility] Medical History (Updated 10/30/21 @ 19:[address] Lucas Wood MD) Atherosclerotic heart disease of [place] coronary artery without angina pectoris Essential hypertension HLD (hyperlipidemia) Old myocardial infarction Presence of stent in coronary artery (~06/19/10) Home Medications aspirin 81 mg tablet,delayed release 81 mg PO QDAY 08/06/17 [History Last Taken 10/23/17] clopidogrel 75 mg tablet 75 mg PO QDAY 90 Days #90 tab 08/06/17 [History Last Taken 10/23/17] ezetimibe 10 mg tablet 10 mg PO QDAY 90 Days #90 tab 08/06/17 [History Last Taken 10/23/17] loratadine 10 mg tablet 10 mg PO QDAY PRN 08/06/17 [History Last Taken 10/23/17] nitroglycerin 0.4 mg sublingual tablet 0.4 mg SUBLINGUAL Q5M PRN 08/06/17 [History Last Taken 10/23/17] pravastatin 80 mg tablet 80 mg PO QDAY 90 Days #90 tab 08/06/17 [History Last Taken 10/23/17] Allergy/AdvReac Type Severity Reaction Status Date / Time No Known Allergies Allergy Verified 10/30/21 15:07 Family History Grandfather , age 76 CVA (cerebral vascular accident) Surgical History History of left heart catheterization (~12/2010) Presence of coronary angioplasty implant and graft (~06/19/10) Social History Smoking Status: Former smoker how long ago did patient quit smokin alcohol intake: current alcohol intake frequency: 0-2 drinks per day Alcohol type: beer substance use type: does not use caffeine: Yes Type: coffee Number of servings: 2 what type of physical activity do you participate in: none seatbelt use: sometimes do you feel safe at home: Yes ROS ROS Narrative Constitutional: Chest discomfort/pain. No fever. HEENT: Reports systems reviewed and no addt'l complaints, except as documented Respiratory/Chest: Admission HPI Gastrointestinal: Denies coffee ground emesis, hematemesis or vomiting or melena. Genitourinary: Denies burning urination or new urinary tract symptoms Musculoskeletal: Denies joint pain and limited range of motion Neurologic: No focal muscle weakness. Denies seizure-like activity skin: No ulcer. No rash Endocrinology: Reports systems reviewed and no addt'l complaints, except as documented Hematologic/Lymphatic: Reports systems reviewed and no addt'l complaints, except as documented Rest 14 ROS are negative except as mentioned in HPI Vital Signs Vital Signs Vital Signs: 10/30/21 15:00 10/30/21 15:04 10/30/21 15:16 Temperature 97.5 F L Temperature Source Temporal Pulse Rate 106 H Respiratory Rate 17 Respiratory Effort Normal Blood Pressure 178/97 H Blood Pressure Mean 124 Pulse Ox 99 100 Oxygen Delivery Method Room Air Room Air Oxygen Flow Rate (L/min) 10/30/21 15:41 10/30/21 15:46 10/30/21 15:50 Temperature Temperature Source Pulse Rate 86 99 107 H Respiratory Rate Respiratory Effort Blood Pressure 144/95 H 143/94 H 127/91 H Blood Pressure Mean Pulse Ox Oxygen Delivery Method Oxygen Flow Rate (L/min) 10/30/21 16:00 10/30/21 17:00 10/30/21 17:32 Temperature Temperature Source Pulse Rate 86 87 53 L Respiratory Rate 13 15 17 Respiratory Effort Blood Pressure 130/87 H 131/91 H 89/52 L Blood Pressure Mean 101 104 64 Pulse Ox 98 98 100 Oxygen Delivery Method Room Air Room Air Nasal Cannula Oxygen Flow Rate (L/min) 2 10/30/21 17:35 10/30/21 18:00 Temperature Temperature Source Pulse Rate 53 L 87 Respiratory Rate 13 Respiratory Effort Blood Pressure 98/68 125/85 H Blood Pressure Mean 78 98 Pulse Ox 100 Oxygen Delivery Method Nasal Cannula Oxygen Flow Rate (L/min) 2 Weight Weight: 222 lb 7.143 oz Body Mass Index (BMI) 30.2 Physical Exam Narrative General: Alert, Oriented x3, Cooperative HEENT: Atraumatic, PERRLA, EOMI, Normocephalic Oral: Oral mucosa dry. No Gingival or Mucosal Lesions/ Ulcerations Neck: Supple, No JVD, Negative Carotid Bruits Lungs: Air entry diminished in bilateral lung bases. No crepitation/rhonchi Cardiovascular: Regular rate, Regular Rhythm, Normal S1, Normal S2, No murmurs Abdomen: Bowel Sounds Present, Soft, Non Tender, Non-Distended : No renal angle tenderness. No suprapubic tenderness. Extremities: No edema, Capillary Refill Less than 3 Seconds Skin: No rashes, No breakdown Musculoskeletal: No Tenderness to Palpation of Joints or Extremities Neurological: Cranial nerves II-XII grossly intact, DTR 2+/4 and Symmetrical, Neuro grossly intact Psych/Mental Status: Normal Affect, Appropriate Results Lab / Micro Data Result Diagrams: 10/30/21 15:15 10/30/21 15:15 Labs: Laboratory Results - last 24 hr 10/30/21 15:15: WBC 7.2, RBC 4.96, Hgb 16.4, Hct 47.8, MCV 96.4 H, MCH 33.1 H, MCHC 34.3, RDW Std Deviation 44.9 H, RDW Coeff of Leticia 12.7, Plt Count 235, MPV 9.7, Immature Gran % (Auto) 0.300, Neut % (Auto) 58.0, Lymph % (Auto) 27.6, Will % (Auto) 10.3 H, Eos % (Auto) 3.4, Baso % (Auto) 0.4, Absolute Neuts (auto) 4.2, Absolute Lymphs (auto) 1.97, Nucleated RBC % 0 10/30/21 15:15: D-Dimer Quant (PE/DVT) 0.37 10/30/21 15:15: Sodium 140, Potassium 3.9, Chloride 106, Carbon Dioxide 30.0, Anion Gap 4 L, BUN 19 H, Creatinine 1.19, Estim Creat Clear Calc 74.27, Est GFR (MDRD) Af Amer 81, Est GFR (MDRD) Non-Af 67, BUN/Creatinine Ratio 16.0, Glucose 94, Calcium 9.5, Troponin I High Sens < 3 L 10/30/21 17:18: Troponin I High Sens < 3 L Radiology Impression Chest X-Ray 10/30/21 15:25 IMPRESSION: Hyperinflation. The lungs are clear. Electronically Signed: Keith Bragg MD at 15:44 EDT , Chest CTA 10/30/21 17:30 IMPRESSION: ASHD and mild atelectasis within the dependent portion of both upper and lower lobes. No evidence for pulmonary embolus. No evidence for aortic aneurysm periaortic leak or dissection Electronically Signed: Pato Mahmood MD at 18:27 EDT , Assessment & Plan Assessment/Plan (1) Chest pain, atypical: PLAN: 1. Atypical chest pain:The patient is being admitted in PCU in observation status. JENN risk score 3. Patient has known coronary artery disease status post stent. 1 more troponin after 6 hours of second troponin. If negative exercise/treadmill nuclear stress test tomorrow a.m. Chest pain since pleuritic/musculoskeletal in nature. TSH tomorrow a.m. 2. Atherosclerotic coronary artery disease status post stent in 2009: Patient follows Dr. Whyte. Last cardiology visit 08/20/2021 virtual visit. Patient was last admitted in October 2017 for similar chest pain and at that time exercise nuclear stress test was negative. Patient on aspirin Plavix and lisinopril. 3. Hypertension: Most recent blood pressure 142/89, not involved. Monitor BP and titrate up the dose as needed. 4. Dyslipidemia: Patient on pravastatin estimated. Fasting profile tomorrow a.m. 5. Obesity grade 1: BMI 30.2 kg/m?. Advised weight loss, counseling done. Ex-smoker. Quit smoking 2009. Living will/advanced directive/end of life care: Patient does not have living will or advanced directive. No designated power of corporate associate attorney for health. His is next to kin. After discussion of benefits/risks procedures involved with full code, DNR CC arrest and DNR CC, the patient and his opted for full code. Patient does want artificial life support including intubation, tube feed, ventilator and/chest compression, central venous catheter, vasopressor and DC shock if needed Total time spent in [id number] encounter in discussion of advanced directive 16 minutes. Charges/Coding Visit Charges OBSV E&M: 68671 Initial observation care L3 Procedures Hospitalists Procedures: 05533 Advncd Care Plan 30 Min
[2021-10-30 19:13] LABS: Magnesium 2.3 mg/dL (1.6-2.6)
--- NOTE | 2021-10-30 20:00 | EKG12_ITS ---
Test Reason : AM EKG Blood Pressure : / mmHG Vent. Rate : 095 BPM Atrial Rate : 095 BPM P-R Int : 164 ms QRS Dur : 108 ms QT Int : 374 ms P-R-T Axes : 059 -24 021 degrees QTc Int : 469 ms Normal sinus rhythm Inferior infarct , age undetermined Abnormal ECG When compared with ECG of 30-OCT-2021 19:55, MANUAL COMPARISON REQUIRED, DATA IS UNCONFIRMED Confirmed by JAY SY, EZIO ([id number]), order editor JOY PAULSON ([id number]) on 11/01/2021 9:32:13 AM Referred By: HEBER Confirmed By:EZIO THOMPSON MD
[2021-10-30] MEDS: Enoxaparin 40 MG/0.4 ML Syringe SC (20:31)
[2021-10-30] MEDS: Lactated Ringers 1,000 ML 100 ML IV (20:31)
[2021-10-30] MEDS: Acetaminophen 325 MG Tablet 650 MG PO (21:07)
[2021-10-30 21:38] LABS: Troponin-I HS < 3 pg/mL (3.0-78.0)
[2021-10-31] VITALS (7 sets, daily range): BP systolic 125–146; BP diastolic 86–104; PULSE 82–93; RESP 16–20; TEMP 36.4–36.7; O2SAT 94–98
[2021-10-31] MEDS: 0.9% Saline Lock 10 ML Syringe IV (01:47)
[2021-10-31] MEDS: Morphine 2 MG/ML Syringe IV (01:48)
--- NOTE | 2021-10-31 05:00 | EKG12_ITS ---
Test Reason : CP ADMIT Blood Pressure : / mmHG Vent. Rate : 101 BPM Atrial Rate : 101 BPM P-R Int : 164 ms QRS Dur : 108 ms QT Int : 344 ms P-R-T Axes : 055 -28 026 degrees QTc Int : 446 ms Sinus tachycardia Nonspecific T wave abnormality Abnormal ECG Confirmed by AMMON SY, CIERRA ([id number]), medical transcription editor JOY PAULSON ([id number]) on 11/01/2021 10:01:11 AM Referred By: HEBER Confirmed By:CIERRA VERDE MD
[2021-10-31 05:17] LABS: Hematocrit 43.2 % (40-54); Hemoglobin 14.2 g/dL (13.0-16.5); Mean Corp Hgb Conc 32.9 g/dL (32-36); Mean Corpuscular Hgb 32.3 pg (27.0-32.0); Mean Corpuscular Volume 98.2 fL (80-94); Mean Platelet Vol. 9.9 fl (6.2-12.0); Platelet Count 188 K/mm3 (150-450); RBC Distribution Width SD 46.4 fl (35.1-43.9); White Blood Count 6.1 K/mm3 (4.4-11.0)
[2021-10-31 05:55] LABS: Anion Gap 3 (5-15); BUN 9 mg/dL (7-18); Calcium,Total 8.6 mg/dL (8.5-10.1); Chloride 108 mmol/L (98-107); Cholesterol 158 mg/dL (200); EST Glomerular Filtration Rate 92 mL/min (>60); Est Glom Filt Rate - Afr Amer 112 mL/min (>60); Glucose 112 mg/dL (74-106); High Density Lipoprotein 66 mg/dL; Potassium 3.9 mmol/L (3.5-5.1); Sodium Level 139 mmol/L (136-145); Triglycerides 147 mg/dL; Very Low Density Lipoprotein 29 mg/dL (5-40)
[2021-10-31] MEDS: Clopidogrel Bisulfate 75 MG Tablet PO (06:08)
[2021-10-31] MEDS: Aspirin E.C. 81 MG Tablet PO (06:08)
[2021-10-31] MEDS: Acetaminophen 325 MG Tablet 650 MG PO (06:11)
[2021-10-31] MEDS: Pravastatin 80 MG Tablet PO (10:54)
[2021-10-31] MEDS: Ezetimibe 10 MG Tablet PO (10:54)
--- NOTE | 2021-10-31 12:37 | STRESSREP_ITS ---
Stress Test Report Date: 10-31-2021 Procedure: Exercise tolerance test/imaging study Indications: Chest pain; CAD; PCI Consent: Per the patient Procedure: The patient exercised on a Abhinav protocol for 9 minutes completing Stage III achieving a peak heart rate of 150 bpm (92% predicted maximal heart rate) with a peak blood pressure 184/72 mmHg and a peak MET capacity of 10 METs. The baseline ECG demonstrated normal sinus rhythm. The peak exercise ECG demonstrated no obvious ECG changes. There were no cardiac dysrhythmias pretest, during exercise, or recovery. The functional capacity was considered good. There was to have chest discomfort pretest, during exercise, and recovery without significant change. The examination was discontinued secondary to dyspnea. Impression: 1. Technically adequate (percent predicted maximal heart rate greater than 85%) exercise tolerance test 2. Peak exercise ECG with no obvious ECG changes 3. There were no cardiac dysrhythmias pretest, during exercise, or recovery 4. Nuclear images pending Myocardial perfusion imaging study: Technique: The patient was injected with 11.0 mCi of technetium 99m Cardiolite and subsequently rest SPECT Cardiolite nuclear imaging was obtained in the horizontal long, vertical long, and short axis views. The patient exercised on a Abhinav protocol for 9 minutes completing Stage III achieving a peak heart rate of 150 bpm (92% predicted maximal heart rate) with a peak blood pressure 184/72 mmHg and a peak MET capacity of 10 METs. The patient was injected with 33.8 mCi of technetium 99m Cardiolite and subsequently stress SPECT Cardiolite nuclear imaging was obtained in the horizontal long, vertical long, and short axis views. A gated Cardiolite study at peak stress was obtained. Interpretation: Rest and stress SPECT Cardiolite nuclear imaging status post realignment, normalization, and attenuation correction, demonstrates the appearance of relative uniform tracer uptake and myocardial perfusion appearing within normal limits. There is end systolic thickening and brightening. The gated Cardiolite study demonstrates myocardial thickening and inward wall motion. The reported LVEF is 68%. Impression: 1. Rest and stress SPECT Cardiolite nuclear imaging demonstrate relative uniform tracer uptake and myocardial perfusion appearing within normal limits. 2. The gated Cardiolite study reports an LVEF of 68%. This note was generated with [employer] software. It may contain incorrect words, spelling, and punctuation that were not noted in checking the note before signing.
--- NOTE | 2021-10-31 14:43 | PCM.DC ---
Discharge Instructions Diet Discharge Diet: No restrictions Activity Discharge Activity: Return to Normal Activity Weight Bearing Status: Full weight bearing Follow Up Care Test Results: Test results from this visit will be discussed in further detail at your follow-up appointment, if applicable. Discharge Plan Admission Admit Date/Time: 10/30/21 18:42 Primary Reason for Your Visit: non cardiac chest pain Attending Provider: Tera Weeks Primary Care Provider: Sergei Henley Discharge Orders/Prescriptions Prescriptions: Continued aspirin [Adult Low Dose Aspirin] 81 mg tablet,delayed release (DR/EC) 81 mg PO QDAY RF: 0 clopidogrel 75 mg tablet 75 mg PO QDAY 90 Days Qty: 90 RF: 0 ezetimibe 10 mg tablet 10 mg PO QDAY 90 Days Qty: 90 RF: 0 nitroglycerin [Nitrostat] 0.4 mg tablet, sublingual 0.4 mg SUBLINGUAL Q5M PRN (Reason: CHEST PAIN) RF: 0 pravastatin 80 mg tablet 80 mg PO QDAY 90 Days Qty: 90 RF: 0 loratadine [Claritin] 10 mg tablet 10 mg PO QDAY PRN (Reason: Allergies) RF: 0 Referrals / Follow Up: Sergei Henley MD [Primary Care Provider] - Within 2 Weeks Disposition Disposition (needs filled in before D/C Order can be placed): Home, Self Care
--- NOTE | 2021-10-31 15:06 | DS.PCM_ITS ---
Providers Date of Admission: 10/30/21 Date of Discharge: 10/31/21 Primary Care Physician: Dr. Sergei Henley MD Reason For Visit: CHEST PAIN Diagnosis Discharge Diagnosis (1) Chest pain, atypical: Status: Acute Code(s): R07.89 - Other chest pain Plan: 1. Musculoskeletal chest pain #2 coronary artery disease #3 essential hypertension #4 hyperlipidemia Medications at Discharge Home Medications aspirin 81 mg tablet,delayed release 81 mg PO QDAY 08/06/17 clopidogrel 75 mg tablet 75 mg PO QDAY 90 Days #90 tab 08/06/17 ezetimibe 10 mg tablet 10 mg PO QDAY 90 Days #90 tab 08/06/17 loratadine 10 mg tablet 10 mg PO QDAY PRN 08/06/17 nitroglycerin 0.4 mg sublingual tablet 0.4 mg SUBLINGUAL Q5M PRN 08/06/17 pravastatin 80 mg tablet 80 mg PO QDAY 90 Days #90 tab 08/06/17 Hospital Course Operations None Procedures Nuclear stress test Summary of Care Provided Minutes Spent on Discharge: 30 Hospital Course: This 56-year-old white male was seen in the emergency room at [facility] with chief complaint of precordial chest pain, [place] ent has a history of coronary artery disease in the past with a stent placed approximately 12 years ago. Patient's troponin was unremarkable, EKG did not show any acute ischemia, chest x-ray was unremarkable. Patient was placed in observation status on PCU, serial enzymes were obtained and these remained normal. On 10/31/2021, patient underwent a nuclear stress test that was negative for reversible ischemia. Patient was seen and examined on 10/31/2021: On examination he appeared in good health and spirits. Vital signs as documented. Skin warm and dry and without overt rashes. Neck without JVD, neck was supple, trachea midline, thyroid was normal. Lungs clear bilaterally, normal air movement was noted. Heart exam notable for regular rhythm, normal sounds and absence of murmurs, rubs or ga llops. Abdomen unremarkable and without evidence of organomegaly, masses, or abdominal aortic enlargement. Bowel sounds are present, abdomen is not distended. Extremities nonedematous, no cyanosis was noted, no clubbing was noted. Neuro: Cranial nerves II through XII are grossly intact, no focal motor deficits were noted, sensation to light touch and pinprick intact, motor exam 5/5 throughout. Psych: Patient is alert and oriented x3, he does not appear anxious or depressed, he does not appear agitated. Patient was discharged home in stable condition on 10/31/2021. Weight / BMI Weight Weight: 97 kg Body Mass Index (BMI) 29.0 ABG / Lab / Microbiology Data Result Diagrams: 10/31/21 04:43 10/31/21 04:43 Laboratory: Laboratory Results - last 24 hr 10/30/21 15:15: WBC 7.2, RBC 4.96, Hgb 16.4, Hct 47.8, MCV 96.4 H, MCH 33.1 H, MCHC 34.3, RDW Std Deviation 44.9 H, RDW Coeff of Leticia 12.7, Plt Count 235, MPV 9.7, Immature Gran % (Auto) 0.300, Neut % (Auto) 58.0, Lymph % (Auto) 27.6, [place] % (Auto) 10.3 H, Eos % (Auto) 3.4, Baso % (Auto) 0.4, Absolute Neuts (auto) 4.2, Absolute Lymphs (auto) 1.97, Nucleated RBC % 0 10/30/21 15:15: D-Dimer Quant (PE/DVT) 0.37 10/30/21 15:15: Sodium 140, Potassium 3.9, Chloride 106, Carbon Dioxide 30.0, An ion Gap 4 L, BUN 19 H, Creatinine 1.19, Estim Creat Clear Calc 74.27, Est GFR (MDRD) Af Amer 81, Est GFR (MDRD) Non-Af 67, BUN/Creatinine Ratio 16.0, Glucose 94, Calcium 9.5, Troponin I High Sens < 3 L 10/30/21 15:15: Magnesium 2.3 10/30/21 17:18: Troponin I High Sens < 3 L 10/30/21 21:13: Troponin I High Sens < 3 L 10/31/21 04:43: WBC 6.1, RBC 4.40 L, Hgb 14.2, Hct 43.2, MCV 98.2 H, MCH 32.3 H, MCHC 32.9, RDW Std Deviation 46.4 H, RDW Coeff of [place]icia 13.0, Plt Count 188, MPV 9.9 10/31/21 04:43: Sodium 139, Potassium 3.9, Chloride 108 H, Carbon Dioxide 28.0, Anion Gap 3 L, BUN 9, Creatinine 0.90, Estim Creat Clear Calc 98.20, Est GFR (MDRD) Af Amer 112, Est GFR (MDRD) Non-Af 92, BUN/Creatinine Ratio 10.0, Glucose 112 H, Calcium 8.6, Triglycerides 147, Cholesterol 158, LDL Cholesterol 63, VLDL Cholesterol 29, HDL Cholesterol 66, TSH 0.80 Radiography Diagnostic Testing: Radiology Impression Chest X-Ray 10/30/21 15:25 IMPRESSION: Hyperinflation. The lungs are clear. Electronically Signed: Keith Bragg MD at 15:44 EDT , Chest CTA 10/30/21 17:30 IMPRESSION: ASHD and mild atelectasis within the dependent portion of both upper and lower lobes. No evidence for pulmonary embolus. No evidence for aortic aneurysm periaortic leak or dissection Electronically Signed: Pato Mahmood MD at 18:27 EDT , D/C Instructions Discharge Diet: No restrictions Weight Bearing Status: Full weight bearing Meaningful Use Info Meaningful Use Diagnoses (Choose all that apply): None applicable Discharge Plan Admission Admit Date/Time: 10/30/21 18:42 Primary Reason for Your Visit: non cardiac chest pain Attending Provider: Tera Weeks Primary Care Provider: Sergei Henley Discharge Orders/Prescriptions Prescriptions: Continued aspirin [Adult Low Dose Aspirin] 81 mg tablet,delayed release (DR/EC) 81 mg PO QDAY RF: 0 clopidogrel 75 mg tablet 75 mg PO QDAY 90 Days Qty: 90 RF: 0 ezetimibe 10 mg tablet 10 mg PO QDAY 90 Days Qty: 90 RF: 0 nitroglycerin [Nitrostat] 0.4 mg tablet, sublingual 0.4 mg SUBLINGUAL Q5M PRN (Reason: CHEST PAIN) RF: 0 pravastatin 80 mg tablet 80 mg PO QDAY 90 Days Qty: 90 RF: 0 loratadine [Claritin] 10 mg tablet 10 mg PO QDAY PRN (Reason: Allergies) RF: 0 Referrals / Follow Up: Sergei Henley MD [Primary Care Provider] - Within 2 Weeks Disposition Disposition (needs filled in before D/C Order can be placed): Home, Self Care Charges/Coding Visit Charges OBSV E&M: 25624 Observation care discharge
== END 2021-10-31 14:45 | disposition home or self-care (01) ==
LOC: ED 18:45 → PCU 19:04
PROVIDERS: Admitting Provider Internal Medicine; Emergency Provider Emergency Medicine; PCP Family Medicine; Visit Provider Internal Medicine
DX: R07.89 Other chest pain (principal); R00.1 Bradycardia, unspecified; I25.10 Atherosclerotic heart disease of native coronary artery without angina pectoris; I10 Essential (primary) hypertension; E78.5 Hyperlipidemia, unspecified; I25.2 Old myocardial infarction; R00.0 Tachycardia, unspecified; R94.31 Abnormal electrocardiogram [ECG] [EKG]; Z87.891 Personal history of nicotine dependence; Z79.899 Other long term (current) drug therapy; Z79.02 Long term (current) use of antithrombotics/antiplatelets; Z79.82 Long term (current) use of aspirin; E66.9 Obesity, unspecified; Z68.30 Body mass index [BMI] 30.0-30.9, adult
CPT/HCPCS: 36415; 71045; 71275; 78452; 80048; 80061; 83735; 84443; 84484; 85025; 85027; 85379; 93005; 93017; 96361; 96372; 96374; 96375; 96376; 99218; 99251; 99285; A9500; J7030; J7120; A4216; G0378; G0463; J2405

== ENCOUNTER → 2022-05-06 | Outpatient (CLI) | payer OTHER, SELFPAY ==
[2022-05-06 10:07] LABS: Absolute Lymphocyte Count 1.23 X10^3/uL (0.83-4.51); Basophil# 0.04 X10^3/uL; Basophil% 0.7 % (0-1); Eosinophil# 0.18 X10^3/uL; Erythrocyte Sedimentation Rate 17 mm/hr (0-20); Hematocrit 47.7 % (40-54); Hemoglobin 15.8 g/dL (13.0-16.5); Lymphocyte # 1.23 X10^3/ul (0.83-4.51); Lymphocyte % 20.5 % (19-41); Mean Corp Hgb Conc 33.1 g/dL (32-36); Mean Corpuscular Hgb 32.6 pg (27.0-32.0); Mean Corpuscular Volume 98.4 fL (80-94); Mean Platelet Vol. 9.9 fl (6.2-12.0); Monocyte# 0.51 X10^3/uL; Monocyte% 8.5 % (0-10); NRBC Flagged by Analyzer 0 % (0-5); Neutrophil # 4.02 X10^3/uL (2.7-7.7); Neutrophil % 66.8 % (47-70); Platelet Count 223 K/mm3 (150-450); RBC Distribution Width CV 12.9 % (11.6-14.6); RBC Distribution Width SD 46.7 fl (35.1-43.9); Red Blood Count 4.85 M/mm3 (4.6-6.2)
[2022-05-06 10:20] LABS: Vitamin B12 289 pg/mL (211-911); Vitamin D,25 Hydroxy 37.3 ng/mL
[2022-05-06 10:25] LABS: ALB/GLOB Ratio 0.8 RATIO (0.9-2.4); AST(SGOT) 54 U/L (15-37); Alanine Aminotransfer ALT/SGPT 78 U/L (16-61); Albumin, Serum 3.6 g/dL (3.2-5.0); Alkaline Phosphatase 82 U/L (45-117); Anion Gap 9 (5-15); BUN 10 mg/dL (7-18); BUN/Creat Ratio 8.1 RATIO (10-20); Chloride 105 mmol/L (98-107); Cholesterol 179 mg/dL (200); Creatinine, Serum 1.24 mg/dL (0.70-1.30); EST Glomerular Filtration Rate 64 mL/min (>60); Est Glom Filt Rate - Afr Amer 77 mL/min (>60); Globulin 4.7 g/dL (2.2-4.2); Glucose 104 mg/dL (74-106); High Density Lipoprotein 78 mg/dL; Potassium 4.3 mmol/L (3.5-5.1); Protein, Total 8.3 g/dL (6.4-8.2); Sodium Level 140 mmol/L (136-145); Thyroid Stim Hormone (TSH) 0.99 uIU/mL (0.358-3.74); Triglycerides 169 mg/dL; Very Low Density Lipoprotein 34 mg/dL (5-40)
== END | disposition home or self-care (01) ==
LOC: MFPLAB 08:29
PROVIDERS: PCP Family Medicine; Referring Provider Family Medicine; Visit Provider Family Medicine
DX: I25.10 Atherosclerotic heart disease of native coronary artery without angina pectoris (principal); R41.3 Other amnesia
CPT/HCPCS: 36415; 80053; 80061; 82306; 82607; 84443; 85025; 85652

== ENCOUNTER → 2022-12-10 | Outpatient (CLI) | payer OTHER, SELFPAY ==
[2022-12-10 10:40] LABS: Hematocrit 47.1 % (40-54); Hemoglobin 15.8 g/dL (13.0-16.5); Mean Corp Hgb Conc 33.5 g/dL (32-36); Mean Corpuscular Hgb 33.2 pg (27.0-32.0); Mean Corpuscular Volume 98.9 fL (80-94); Mean Platelet Vol. 10.1 fl (6.2-12.0); Platelet Count 255 K/mm3 (150-450); RBC Distribution Width CV 13.2 % (11.6-14.6); RBC Distribution Width SD 48.8 fl (35.1-43.9); Red Blood Count 4.76 M/mm3 (4.6-6.2); White Blood Count 4.8 K/mm3 (4.4-11.0)
[2022-12-10 10:57] LABS: ALB/GLOB Ratio 0.8 RATIO (0.9-2.4); AST(SGOT) 32 U/L (15-37); Alanine Aminotransfer ALT/SGPT 42 U/L (16-61); Albumin, Serum 3.4 g/dL (3.2-5.0); Alkaline Phosphatase 78 U/L (45-117); Anion Gap 5 (5-15); BUN 14 mg/dL (7-18); BUN/Creat Ratio 12.6 RATIO (10-20); Chloride 106 mmol/L (98-107); Cholesterol 225 mg/dL (200); Creatinine, Serum 1.11 mg/dL (0.70-1.30); EST Glomerular Filtration Rate 72 mL/min (>60); Est Glom Filt Rate - Afr Amer 87 mL/min (>60); Globulin 4.3 g/dL (2.2-4.2); Glucose 99 mg/dL (74-106); High Density Lipoprotein 67 mg/dL; PSA,Total - Annual Screen 0.72 ng/mL (0.00-4.00); Potassium 4.5 mmol/L (3.5-5.1); Protein, Total 7.7 g/dL (6.4-8.2); Sodium Level 140 mmol/L (136-145); Triglycerides 94 mg/dL; Very Low Density Lipoprotein 19 mg/dL (5-40)
== END | disposition home or self-care (01) ==
LOC: MFPLAB 08:31
PROVIDERS: PCP Family Medicine; Visit Provider Family Medicine
DX: I25.10 Atherosclerotic heart disease of native coronary artery without angina pectoris (principal); Z12.5 Encounter for screening for malignant neoplasm of prostate
CPT/HCPCS: 36415; 80053; 80061; 84153; 85027; G0103

== ENCOUNTER 2023-04-23 21:32 | Observation (INO) | payer OTHER, SELFPAY ==
[2023-04-23 21:34] VITALS: BP 121/80; PULSE 83; RESP 12; O2SAT 99
--- NOTE | 2023-04-23 21:34 | CT_ITS ---
We are attempting to reach an attending provider to discuss findings. An addendum with communication details will be sent when the communication is complete. INDICATION: Neuro deficit, acute, stroke suspected EXAMINATION: CT BRAIN - CT Head Stroke Protocol W/O Contrast Injection TECHNIQUE: Multiple axial images were obtained of the head without intravenous contrast. A radiation dose optimization technique was used for this scan. IV Contrast dosage and agent: None. RADIATION DOSAGE (If Supplied By Facility): CTDIvol = ( ) mGy, DLP = ( ) mGycm COMPARISON: FINDINGS: BRAIN PARENCHYMA: No intra- or extra-axial hemorrhage. No evidence of acute infarct. No intracranial mass or mass effect. There is preservation of the marin/white matter interface. Posterior fossa structures are unremarkable. CSF SPACES: Appropriate for age. No hydrocephalus. Basal cisterns are patent. CALVARIUM, SKULL BASE, PARANASAL SINUSES AND MASTOID AIR CELLS: Clear. No discrete lytic or blastic abnormalities. ORBITS: Both globes, extraocular muscles, optic nerves and retrobulbar fat appear unremarkable. ASPECTS Score for Acute Strokes: 10 CT/STROKE Brain/Head without Cont IMPRESSION: Negative Brain CT without contrast. Electronically Signed: Kris White MD at 21:54 EDT ,
--- NOTE | 2023-04-23 21:34 | CT_ITS ---
We are attempting to reach an attending provider to discuss findings. An addendum with communication details will be sent when the communication is complete. STUDY: CTA HEAD AND NECK WITH CONTRAST REASON FOR EXAM: Male, 57 years old. Neuro deficit, acute, stroke suspected RADIATION DOSAGE (If Supplied By Facility): CTDIvol = ( 28.57 ) mGy, DLP = ( 868.89 ) mGycm TECHNIQUE: CT angiography was performed with a multi-detector CT scanner. Data acquisition was obtained from the skull base through the vertex following intravenous administration of IV 100mL [id number]-[id number]. MIP images were reconstructed from the axial data set. Post-processing of the angiographic images was performed, with multiplanar reformation and 3D reconstruction. Individualized dose optimization techniques were used for this CT. COMPARISON: No relevant priors. FINDINGS: Normal bilateral petrous carotid arteries. Normal right cavernous carotid artery with a normal supraclinoid bifurcation. Normal left cavernous carotid artery with a normal supraclinoid bifurcation. Normal right A1 segments of the anterior cerebral artery. Normal left A1 segments of the anterior cerebral artery. Normal intact anterior communicating artery (ACOM). Normal bilateral A2 segments of the anterior cerebral arteries. Normal right M1 and M2 segments of the middle cerebral arteries, with a normal M1 bifurcation. Normal left M1 and M2 segments of the middle cerebral arteries, with a normal M1 bifurcation. Normal right posterior communicating artery (PCOM). Normal left posterior communicating artery (PCOM). Normal bilateral vertebral arteries. Normal basilar artery with a normal basilar bifurcation. The visualized bilateral superior cerebellar (SCA) arteries are normal. Normal bilateral P1, P2 and visualized P3 segments of the posterior cerebral arteries. There is no demonstrated aneurysm of the [place]. There is no demonstrated abnormality of the visualized brain. AORTIC ARCH: Normal visualized aortic arch. Normal origins of the brachiocephalic, left common carotid, and left subclavian arteries. RIGHT CAROTID ARTERIES: Normal right common carotid artery (CCA). There is moderate atherosclerotic plaque formation with moderate narrowing of the right carotid bulb. There is moderate atherosclerotic plaque formation of the origin of the right internal carotid artery with an estimated stenosis of 50-69% stenosis. Normal visualized cervical portion of the right internal carotid artery. Normal origin of the right external carotid artery (ECA). LEFT CAROTID ARTERIES: Normal left common carotid artery (CCA). There is moderate atherosclerotic plaque formation with moderate narrowing of the carotid bulb. There is moderate atherosclerotic plaque formation of the origin of the left internal carotid artery with an estimated stenosis of 50-69% stenosis. Normal visualized cervical portion of the left internal carotid artery. Normal origin of the left external carotid artery (ECA). VERTEBRAL ARTERIES: Normal bilateral vertebral arteries. CT/STROKE CTA Head AND Neck W/Con IMPRESSION: Normal CTA Head with contrast. Moderate (60%) carotid stenosis bilaterally. Patent vertebral arteries bilaterally. Electronically Signed: Kris White MD at 22:05 EDT ,
--- NOTE | 2023-04-23 21:34 | EKG12_ITS ---
Test Reason : STROKE Blood Pressure : / mmHG Vent. Rate : 084 BPM Atrial Rate : 084 BPM P-R Int : 188 ms QRS Dur : 100 ms QT Int : 414 ms P-R-T Axes : 070 -33 -19 degrees QTc Int : 489 ms Critical Test Result: STEMI Normal sinus rhythm Left axis deviation Inferior infarct (cited on or before 31-OCT-2021) Lateral injury pattern ACUTE [place] / STEMI Abnormal ECG Confirmed by JAY SY, EZIO ([id number]), international editorial producer RUBI ROMERO ([id number]) on 04/24/2023 12:13:14 PM Referred By: Confirmed By:EZIO THOMPSON MD
--- NOTE | 2023-04-23 21:35 | ED.VIS.STROK ---
HPI History of Present Illness Chief Complaint: Stroke Alert Detail of Chief Complaint: Stroke and chest pain Informant: patient Narrative Narrative: Patient presents the emergency department via EMS. Initial call went out for person with chest pain. Patient was found to be bradycardic. In route to the hospital patient started experiencing left-sided facial droop and left-sided weakness. Stroke team was called from the field. Patient with prior cardiac history and cardiac stenting. No prior stroke history. He denies falls or head injuries. Denies recent illness. Describes pressure in his chest. Slight shortness of breath. PFSH PFSH Medical History Atherosclerotic heart disease of [place] coronary artery without angina pectoris Essential hypertension HLD (hyperlipidemia) Old myocardial infarction Presence of stent in coronary artery (~06/19/10) Home Medications aspirin 81 mg tablet,delayed release (Adult Low Dose Aspirin) 81 mg PO QDAY heart health 08/06/17 [History Last Taken 10/30/21] clopidogrel 75 mg tablet 75 mg PO QDAY anti platelet 90 days #90 tabs 08/06/17 [History Last Taken 10/30/21] loratadine 10 mg tablet (Claritin) 10 mg PO QDAY PRN Allergies 08/06/17 [History Last Taken 10/30/21] nitroglycerin 0.4 mg sublingual tablet (Nitrostat) 0.4 mg sublingual Q5M PRN CHEST PAIN 08/06/17 [History Last Taken 10/30/21] buspirone 5 mg tablet 5 mg PO BID 04/23/23 [History Last Taken Unknown] losartan 50 mg tablet 50 mg PO .day 04/23/23 [History Last Taken Unknown] sildenafil 100 mg tablet 100 mg PO PRN PRN sexual activity 04/23/23 [History Last Taken Unknown] Allergy/AdvReac Type Severity Reaction Status Date / Time No Known Allergies Allergy Verified 09/05/22 14:16 Family History Grandfather , age 76 CVA (cerebral vascular accident) Surgical History History of left heart catheterization (~12/2010) Presence of coronary angioplasty implant and graft (~06/19/10) Social History Smoking Status: Former smoker how long ago did patient quit smokin alcohol intake: current alcohol intake frequency: 0-2 drinks per day Alcohol type: beer substance use type: does not use caffeine: Yes Type: coffee Number of servings: 2 what type of physical activity do you participate in: none seatbelt use: sometimes do you feel safe at home: Yes ROS ROS ED Review of Systems ROS Unobtainable: other Constitutional Constitutional ED: Reports lethargy; Denies chills, fever(s), sweats or weight loss Eyes Eyes: Denies blurry vision, change in vision or diplopia ENT ENT ED: Denies rhinorrhea or sore throat Cardiovascular Cardiovascular: Reports chest pain; Denies orthopnea or racing heartbeat Respiratory/Chest Respiratory/Chest: Denies cough, dyspnea, dyspnea on exertion, orthopnea or sputum Gastrointestinal Gastrointestinal: Denies abdominal pain, diarrhea, nausea or vomiting Genitourinary Genitourinary ED: Denies dysuria, hematuria or urinary frequency Musculoskeletal Musculoskeletal: Denies arthralgias, back pain, myalgias or neck pain Integumentary Denies abscess, Abrasions or rash Neurologic Neurologic: Reports weakness; Denies headache(s) Psychiatric Psychiatric: Denies anxiety, depression or suicidal thoughts Endocrine Endocrinology: Denies polydipsia, polyphagia or polyuria Hematologic/Lymphatic Hematologic/Lymphatic: Denies easy bleeding, easy bruising or lymphadenopathy Allergic/Immunologic Allergic/Immunologic ED: Denies mouth swelling, tongue swelling or urticaria EXAM Physical Exam Const Vital Signs: 04/23/23 21:44 04/23/23 21:55 04/23/23 21:34 Temperature 97.0 F L Temperature Source Axillary Pulse Rate 82 83 Respiratory Rate 14 12 Blood Pressure 121/80 H 121/80 H Blood Pressure Mean 93 93 Pulse Ox 98 99 99 Oxygen Delivery Method Room Air Room Air Room Air 04/23/23 21:58 Temperature 96.7 F L Temperature Source Oral Pulse Rate Respiratory Rate Blood Pressure Blood Pressure Mean Pulse Ox Oxygen Delivery Method Positive well nourished and well developed General Appearance ED: well developed and NAD HEENT Reports TM's clear and moist mucous membranes normocephalic and atraumatic; Negative for trauma or tenderness Tympanic Membrane ED: Yes TM's clear Eyes PERRL and EOMs intact bilaterally General Eye ED: Negative for pale conjunctiva or scleral icterus Neck no lymphadenopathy, supple and no JVD General: Negative for tenderness Chest Wall inspection of chest normal and palpation of chest normal Chest: Negative for tenderness Resp normal respiratory effort and clear to auscultation bilaterally Effort and Inspection: Negative for respiratory distress or pain with movement Auscultation: Negative for rhonchi, wheezes or diminished lung sounds Cardio regular rate, regular rhythm, S1 normal heart sound, S2 normal heart sound and no murmurs Peripheral Pulses: pulses 2+ throughout GI normal to inspection, nondistended, normoactive bowel sounds, soft to palpation, non-tender, non-distended and no masses Back/Spine no CVA tenderness and no thoracic nor lumbar tenderness Extremity normal to inspection General Extremety ED: Negative for edema General Extremity: Negative for edema Neuro oriented x3, CN's II-XII intact bilaterally, no sensory deficits noted and gait normal Neuro Narrative: NIH stroke scale is a 10. Patient has left-sided facial droop with dysarthria as well as subtle weakness of the left arm and left leg with decree sensation on the left. Sensorium / Orientation: awake, alert, oriented to person, oriented to place and oriented to time Motor Exam: strength 5/5 throughout and strength abnormal Psych mental status grossly normal Skin no rashes or lesions noted and no wounds MDM MDM MDM Narrative Medical decision making narrative: Patient arrives via EMS. Stroke team called. Patient was evaluated in the hallway and sent to CT scanner. I did evaluate the transmitted EKG from [facility] which showed bradycardia without signs of ST elevation DE. Will obtain EKG upon arrival back to the room as well as basic labs and troponin. Patient will be evaluated by stroke neurologist via robot from [facility]. Patient was evaluated by [facility] neurology. When he arrived back from CT scanner his stroke symptoms had resolved. Facial droop was resolved slurred speech resolved weakness and paresthesias resolved. Stroke neurologist felt patient did not meet thrombolysis criteria and I am in agreement with this. Patient does continue to complain of chest pain and pressure. He was given morphine for pain. I withheld giving nitro as patient had taken a Viagra tablet prior to coming to the emergency department. EKG obtained on arrival showed a sinus rhythm with a rate of [address] elevation DE noted although the computer thought there was ST elevation DE. CT scan of the brain without contrast was normal. Patient had a CTA of the head and neck that showed 60% stenosis of bilateral carotid arteries. No LVO. Case will be discussed with hospitalist to evaluate patient for admission for TIA and chest pain. Lab Data Attestation: I reviewed the patient's lab results. Labs: Laboratory Results - last 24 hr 04/23/23 04/23/23 21:30 21:55 WBC 5.3 RBC 4.28 L Hgb 14.0 Hct 42.3 MCV 98.8 H MCH 32.7 H MCHC 33.1 RDW Std Deviation 45.7 H RDW Coeff of Leticia 12.6 Plt Count 226 MPV 9.5 Immature Gran % (Auto) 0.400 Neut % (Auto) 48.0 Lymph % (Auto) 32.1 [place] % (Auto) 12.1 H Eos % (Auto) 6.3 H Baso % (Auto) 1.1 H Absolute Neuts (auto) 2.5 Absolute Lymphs (auto) 1.69 Nucleated RBC % 0 PT 12.9 INR 1.0 APTT 23.0 L Sodium 141 Potassium 3.4 L Chloride 108 H Carbon Dioxide 24.0 Anion Gap 9 BUN 15 Creatinine 1.24 Estim Creat Clear Calc 70.40 Est GFR (MDRD) Af Amer 77 Est GFR (MDRD) Non-Af 63 BUN/Creatinine Ratio 12.1 Glucose 104 Calcium 8.8 Troponin I High Sens 6 Radiography Chest X-Ray - ED: 1 View Diagnostic Testing: Clinical Impression(s) from Imaging Studies Brain CT 04/23/23 21:34 IMPRESSION: Negative Brain CT without contrast. Electronically Signed: Kris White MD at 21:54 EDT , ADDENDUM: 04/23/232201 IMPRESSION: Negative Brain CT without contrast. N.B. : The above Results were Read Back by Kris White MD to Perez Dave DO, and understanding confirmed on 04/23/2023 21:55:56 (ET). Electronically Signed: Kris White MD at 21:54 EDT Reading Location ID and State: [id number] / [employer] , Service support , Head/Neck CTA 04/23/23 21:34 IMPRESSION: Normal CTA Head with contrast. Moderate (60%) carotid stenosis bilaterally. Patent vertebral arteries bilaterally. Electronically Signed: Kris White MD at 22:05 EDT Reading Location ID and State: [id number] / [employer] , Service support , ADDENDUM: 04/23/23 2213 IMPRESSION: Normal CTA Head with contrast. Moderate (60%) carotid stenosis bilaterally. Patent vertebral arteries bilaterally. N.B. : The above Results were Read Back by Kris White MD to Perez Dave DO, and understanding confirmed on 04/23/2023 22:06:20 (ET). Electronically Signed: Kris White MD at 22:05 EDT Reading Location ID and State: [id number] / [employer] , Service support , Chest X-Ray 04/23/23 22:14 IMPRESSION: Normal x-ray examination of the chest. Electronically Signed: Kris White MD at 22:32 EDT Reading Location ID and State: [id number] / [employer] , Service support , 1 view chest x-ray obtained interpreted by myself as no acute disease process. No evidence of infiltrate or pneumothorax. Radiology in agreement. EKG Initial EKG: Attestation: I personally reviewed and interpreted this EKG as follows: Comments: Sinus rhythm with a rate of [address] elevation DE noted. He had some nonspecific ST changes. Prior EKG tracings: available for review Prior: Unchanged Discharge Plan Dx/Rx/DC Orders Clinical Impression: Brain TIA, History of coronary artery disease, Chest pain Disposition Disposition: Acute Care Hospital [facility] Discharge Date/Time: 04/23/23 23:43
[2023-04-23 21:44] VITALS: BP 121/80; PULSE 82; RESP 14; TEMP 36.1; O2SAT 98
[2023-04-23 21:44] LABS: Absolute Lymphocyte Count 1.69 X10^3/uL (0.83-4.51); Absolute Neutrophil Count 2.5 X10^3/uL (2.0-7.7); Basophil# 0.06 X10^3/uL; Basophil% 1.1 % (0-1); Eosinophil# 0.33 X10^3/uL; Eosinophils% 6.3 % (0-5); Hematocrit 42.3 % (40-54); Lymphocyte # 1.69 X10^3/ul (0.83-4.51); Lymphocyte % 32.1 % (19-41); Mean Corp Hgb Conc 33.1 g/dL (32-36); Mean Corpuscular Hgb 32.7 pg (27.0-32.0); Mean Corpuscular Volume 98.8 fL (80-94); Mean Platelet Vol. 9.5 fl (6.2-12.0); Monocyte# 0.64 X10^3/uL; Monocyte% 12.1 % (0-10); NRBC Flagged by Analyzer 0 % (0-5); Neutrophil # 2.53 X10^3/uL (2.7-7.7); Platelet Count 226 K/mm3 (150-450); RBC Distribution Width CV 12.6 % (11.6-14.6); RBC Distribution Width SD 45.7 fl (35.1-43.9); Red Blood Count 4.28 M/mm3 (4.6-6.2); White Blood Count 5.3 K/mm3 (4.4-11.0)
[2023-04-23 21:55] VITALS: O2SAT 99
[2023-04-23 21:58] VITALS: TEMP 35.9; BMI 29.5
[2023-04-23 22:01] LABS: Anion Gap 9 (5-15); BUN 15 mg/dL (7-18); BUN/Creat Ratio 12.1 RATIO (10-20); Calcium,Total 8.8 mg/dL (8.5-10.1); Chloride 108 mmol/L (98-107); Creatinine, Serum 1.24 mg/dL (0.70-1.30); EST Glomerular Filtration Rate 63 mL/min (>60); Est Glom Filt Rate - Afr Amer 77 mL/min (>60); Glucose 104 mg/dL (74-106); Potassium 3.4 mmol/L (3.5-5.1); Sodium Level 141 mmol/L (136-145); Troponin-I HS 6 pg/mL (3.0-78.0)
[2023-04-23 22:12] LABS: Prothrombin Time (Protime)PT. 12.9 SECONDS (11.7-14.9)
--- NOTE | 2023-04-23 22:14 | RAD_ITS ---
STUDY: X-RAY CHEST REASON FOR EXAM: Male, 57 years old. Neuro deficit, acute, stroke suspected TECHNIQUE: Single AP portable view of the chest. COMPARISON: 10/30/2021 FINDINGS: The lungs are clear and expanded. There is no demonstrated pleural abnormality. Normal size heart. Normal mediastinum and [place]. Normal visualized pulmonary arteries. Normal visualized aortic arch and descending thoracic aorta. Normal visualized thoracic spine. Normal visualized ribs, clavicles, and shoulders. There is no demonstrated abnormality of the visualized soft tissue structures of the upper abdomen. RAD/Chest 1 View IMPRESSION: Normal x-ray examination of the chest. Electronically Signed: Kris White MD at 22:32 EDT ,
[2023-04-23] MEDS: Morphine 4 MG/ML Syringe IV (22:28)
[2023-04-23] MEDS: Ondansetron 4 MG/2 ML Vial IV (22:28)
--- NOTE | 2023-04-23 23:00 | EKG12_ITS ---
Test Reason : CP Admission Blood Pressure : / mmHG Vent. Rate : 086 BPM Atrial Rate : 086 BPM P-R Int : 182 ms QRS Dur : 096 ms QT Int : 396 ms P-R-T Axes : 043 -43 -20 degrees QTc Int : 473 ms Normal sinus rhythm Left axis deviation Inferior infarct , age undetermined Abnormal ECG When compared with ECG of 23-APR-2023 21:45, MANUAL COMPARISON REQUIRED, DATA IS UNCONFIRMED Confirmed by JAY SY, EZIO ([id number]), editor in chief newspaper RUBI ROMERO ([id number]) on 05/21/2023 1:49:06 PM Referred By: Brian Confirmed By:EZIO THOMPSON MD
--- NOTE | 2023-04-23 23:01 | HP.PCM.HOS_ITS ---
HPI - General General Date of Admission: 04/23/23 Date of Service: 04/23/23 Chief Complaint: chest pain HPI Narrative JOVANY MUÑIZ, is a 57 M history of CAD status post assistance about 13 years ago who presents emergency department with chest pain. Of note patient took half a tablet of sildenafil. His chest pain started after sexual encounter. His chest pain is substernal and nonradiating. He described chest pain as tightness and heaviness. He received morphine in the emergency department to help with his chest pain. Enroute to the hospital by the squad patient had strokelike symptoms. His strokelike symptoms was described at left facial droop; dysarthria; left arm weakness; and left leg weakness. Of note patient also had numbness of his left. ED physician reported that on initial presentation patient still had strokelike symptoms including facial droop. However after a CT scan patient's strokelike symptoms completely resolved. Teleneurologist saw patient and patient was not a candidate of thrombolytics. [facility] Medical History Atherosclerotic heart disease of [place] coronary artery without angina pectoris Essential hypertension HLD (hyperlipidemia) Old myocardial infarction Presence of stent in coronary artery (~06/19/10) Home Medications aspirin 81 mg tablet,delayed release (Adult Low Dose Aspirin) 81 mg PO QDAY [facility] 08/06/17 [History Last Taken 10/30/21] clopidogrel 75 mg tablet 75 mg PO QDAY anti platelet 90 days #90 tabs 08/06/17 [History Last Taken 10/30/21] loratadine 10 mg tablet (Claritin) 10 mg PO QDAY PRN Allergies 08/06/17 [History Last Taken 10/30/21] nitroglycerin 0.4 mg sublingual tablet (Nitrostat) 0.4 mg sublingual Q5M PRN CHEST PAIN 08/06/17 [History Last Taken 10/30/21] buspirone 5 mg tablet 5 mg PO BID 04/23/23 [History Last Taken Unknown] losartan 50 mg tablet 50 mg PO .day 04/23/23 [History Last Taken Unknown] sildenafil 100 mg tablet 100 mg PO PRN PRN sexual activity 04/23/23 [History Last Taken Unknown] Allergy/AdvReac Type Severity Reaction Status Date / Time No Known Allergies Allergy Verified 09/05/22 14:16 Family History Grandfather , age 76 CVA (cerebral vascular accident) Surgical History History of left heart catheterization (~12/2010) Presence of coronary angioplasty implant and graft (~06/19/10) Social History Smoking Status: Former smoker how long ago did patient quit smokin alcohol intake: current alcohol intake frequency: 0-2 drinks per day Alcohol type: beer substance use type: does not use caffeine: Yes Type: coffee Number of servings: 2 what type of physical activity do you participate in: none seatbelt use: sometimes do you feel safe at home: Yes ROS ROS Narrative Pertinent positives and pertinent negatives as noted in HPI. All other systems were reviewed and are negative Vital Signs Vital Signs Vital Signs: 04/23/23 21:44 04/23/23 21:55 04/23/23 21:34 Temperature 97.0 F L Temperature Source Axillary Pulse Rate 82 83 Respiratory Rate 14 12 Blood Pressure 121/80 H 121/80 H Blood Pressure Mean 93 93 Pulse Ox 98 99 99 Oxygen Delivery Method Room Air Room Air Room Air 04/23/23 21:58 Temperature 96.7 F L Temperature Source Oral Pulse Rate Respiratory Rate Blood Pressure Blood Pressure Mean Pulse Ox Oxygen Delivery Method Weight Weight: 98.7 kg Body Mass Index (BMI) 29.5 Physical Exam Narrative Physical exam: General: Well-nourished, well-developed. Head: Normocephalic, atraumatic, no tenderness Eyes: Vision is grossly intact. EOMI ENT, no trauma, moist mucous membranes, no rhinorrhea Neck: Nontender, No thyromegaly. CVS: Regular rate and rhythm. S1-S2 present. No murmur, gallop or rub. Respiratory : clear to auscultation bilaterally, chest wall nontender Abdomen: Soft, nontender, nondistended, normal bowel sounds, no masses : Deferred Back: Nontender, no CVA tenderness, no midline spinal tenderness, deformities, step-offs Extremities: Nontender full range of motion, no trauma Skin: Normal color, no trauma, abrasions Neuro: Alert, oriented, cranial nerves II through XII grossly intact. Psychiatry: Normal mood. Normal affect. Not depressed. Not anxious. Results Lab / Micro Data 04/24/23 03:25 04/24/23 03:25 Labs: Laboratory Results - last 24 hr 04/23/23 21:30: WBC 5.3, RBC 4.28 L, Hgb 14.0, Hct 42.3, MCV 98.8 H, MCH 32.7 H, MCHC 33.1, RDW Std Deviation 45.7 H, RDW Coeff of Leticia 12.6, Plt Count 226, MPV 9.5, Immature Gran % (Auto) 0.400, Neut % (Auto) 48.0, Lymph % (Auto) 32.1, [place] % (Auto) 12.1 H, Eos % (Auto) 6.3 H, Baso % (Auto) 1.1 H, Absolute Neuts (auto) 2.5, Absolute Lymphs (auto) 1.69, Nucleated RBC % 0, Sodium 141, Potassium 3.4 L , Chloride 108 H, Carbon Dioxide 24.0, Anion Gap 9, BUN 15, Creatinine 1.24, Estim Creat Clear Calc 70.40, Est GFR (MDRD) Af Amer 77, Est GFR (MDRD) Non-Af 63, BUN/Creatinine Ratio 12.1, Glucose 104, Calcium 8.8, Troponin I High Sens 6 04/23/23 21:55: PT 12.9, INR 1.0, APTT 23.0 L Radiology Impression Brain CT 04/23/23 21:34 IMPRESSION: Negative Brain CT without contrast. Electronically Signed: Kris White MD at 21:54 EDT , ADDENDUM: 04/23/232201 IMPRESSION: Negative Brain CT without contrast. N.B. : The above Results were Read Back by Kris White MD to Perez Dave DO, and understanding confirmed on 04/23/2023 21:55:56 (ET). Electronically Signed: Kris White MD at 21:54 EDT Reading Location ID and State: [id number] / [employer] , Service support , Head/Neck CTA 04/23/23 21:34 IMPRESSION: Normal CTA Head with contrast. Moderate (60%) carotid stenosis bilaterally. Patent vertebral arteries bilaterally. Electronically Signed: Kris White MD at 22:05 EDT Reading Location ID and State: [id number] / [employer] , Service support , ADDENDUM: 04/23/23 2213 IMPRESSION: Normal CTA Head with contrast. Moderate (60%) carotid stenosis bilaterally. Patent vertebral arteries bilaterally. N.B. : The above Results were Read Back by Kris White MD to Perez Dave DO, and understanding confirmed on 04/23/2023 22:06:20 (ET). Electronically Signed: Kris White MD at 22:05 EDT Reading Location ID and State: [id number] / [employer] , Service support , Chest X-Ray 04/23/23 22:14 IMPRESSION: Normal x-ray examination of the chest. Electronically Signed: Kris White MD at 22:32 EDT Reading Location ID and State: [id number] / [employer] , Service support , Assessment & Plan Assessment/Plan (1) Brain TIA: (2) Chest pain: PLAN: Plan TIA Serial NINDS NIH Scale ordered Impression of head/neck CTA by radiology:Normal CTA Head with contrast. Moderate (60%) carotid stenosis bilaterally. Patent vertebral arteries bilaterally Upon my personal head CT image review: I agree with radiologist interpretation Lipid profile and A1c ordered. Physical therapy, occupational therapy and speech therapy to work with patient. N.p.o. until bedside swallow eval. Daily aspirin. High intensity statin Permissive hypertension. Control blood pressure with labetalol for systolic blood pressure of more than 220 or diastolic blood pressure of more than 120. MRI of brain Echocardiogram ordered. Non-STEMI Place on a monitored bed at progressive care unit Actual CXR image was independently interpreted. No acute cardiopulmonary process was noted. Agrees with radiology disposition Actual EKG tracing was independently visualized. EKG tracing did not show ST elevation AK. ASA 81 mg p.o. daily; and Plavix continued. Morphine as needed for pain ordered We will check lipid panel. Statin: High intensity statin ordered. Initial high sensitive troponin 6 trended to 11,986 on fourth troponin. Stat EKG as needed for chest pain Started on a heparin drip and cardiology consulted. DVT prophylaxis ordered: Not indicated as patient be started on heparin drip for non-STEMI. Time spent in the patient's overall evaluation,decision-making process, review of diagnostic data, adjustment of management, discussion with other providers, nursing nursing and ancillary staff involved in patient's care documentation, 70 minutes. Charges/Coding Visit Charges Inpatient E&M: 95508 Init Hosp L3
[2023-04-23 23:38] VITALS: BP 126/83; PULSE 86; RESP 17; TEMP 36.6; O2SAT 99
[2023-04-23 23:55] VITALS: BP 117/81; PULSE 86; RESP 16; TEMP 36.6; O2SAT 96
[2023-04-24] VITALS (12 sets, daily range): BP systolic 110–142; BP diastolic 75–98; PULSE 70–87; RESP 15–18; TEMP 36.6–36.8; O2SAT 97–99; BMI 28.9
--- NOTE | 2023-04-24 00:08 | MRI_ITS ---
EXAM: MR brain without contrast. HISTORY: stroke TECHNIQUE: MR Brain W/O Contrast COMPARISON: Head CT April 23, 2023. LIMITATIONS: None. BRAIN: Normal marin/white matter differentiation. No diffusion abnormalities. Prominent vascular spaces on the right near the inferior basal ganglia at the level of the anterior commissure. VENTRICLES: No hydrocephalus. EXTRA-AXIAL SPACES: No hemorrhages, fluid collections, or masses. CALVARIUM/SKULL BASE: Normal. FACE/SINUSES: Mild mucosal thickening in the paranasal sinuses. SOFT TISSUES: Normal. OTHER: None. CONCLUSION: No acute infarct. Electronically Signed: Juventino Swain MD at 16:34 EDT , MRI/Brain without Contrast IMPRESSION: undefined
--- NOTE | 2023-04-24 00:08 | ECHOD_ITS ---
Reason For Study: TIA/CVA, Chest pain Procedure This was a 2D Doppler, Color Flow transthoracic echocardiogram. Exam performed portable in patient room. Left Ventricle Normal LV size. Left ventricular systolic function is normal. The estimated ejection fraction is 60 %. Stage 1 diastolic dysfunction. No regional wall motion abnormalities noted. Right Ventricle Normal RV size. Normal systolic function. Atria Normal left atrium. Normal right atrium. Mitral Valve Normal mitral valve. Tricuspid Valve Normal tricuspid valve. Aortic Valve Normal aortic valve. Pulmonic Valve Normal pulmonic valve. Great Vessels Normal aortic root. The pulmonary artery is normal size. Normal inferior vena cava. Pericardium/Pleural No pericardial effusion. MMode/2D Measurements & Calculations LVIDd: 5.0 cm IVSd: 1.2 cm Ao root diam: 3.2 cm LVIDs: 3.5 cm LVPWd: 1.2 cm RVDd: 4.1 cm FS: 30.0 % LAV(MOD-bp): 35.9 ml LVAd ap4: 27.2 cm2 LVAd ap2: 24.4 cm2 LAV(MOD-bp) Indexed: 16.3 ml/m2 LVLd ap4: 7.5 cm LVLd ap2: 7.9 cm LAV(MOD-sp2): 46.4 ml EDV(MOD-sp4): 90.5 ml EDV(MOD-sp2): 64.9 ml LAV(MOD-sp4): 27.6 ml EDV(sp4-el): 84.2 ml EDV(sp2-el): 64.3 ml LVAs ap4: 12.7 cm2 LVAs ap2: 13.0 cm2 LVLs ap4: 5.7 cm LVLs ap2: 6.4 cm ESV(MOD-sp4): 33.4 ml ESV(MOD-sp2): 30.8 ml ESV(sp4-el): 24.3 ml ESV(sp2-el): 22.4 ml EF(MOD-sp4): 63.0 % EF(MOD-sp2): 52.5 % EF(sp4-el): 71.1 % SV(MOD-sp4): 57.0 ml SV(MOD-sp2): 34.1 ml SV(sp4-el): 59.9 ml LA dimension(2D): 3.6 cm LA A4 area: 12.9 cm2 RA A4 area: 14.8 cm2 TAPSE: 2.0 cm Time Measurements MV dec time: 0.25 sec Doppler Measurements & Calculations MV E max raj: 49.4 cm/sec Lat Peak E' Raj: 10.4 cm/sec Med Peak E' Raj: 6.9 cm/sec MV A max raj: 56.6 cm/sec E/E' lat: 4.8 E/E' med: 7.1 MV E/A: 0.87 MV dec slope: 204.1 cm/sec2 Ao V2 max: 105.5 cm/sec LV V1 max: 86.2 cm/sec Ao max P.5 mmHg LV V1 max P.0 mmHg Ao V2 mean: 73.6 cm/sec LV V1 mean P.6 mmHg Ao mean P.5 mmHg LV V1 mean: 60.2 cm/sec Ao V2 VTI: 22.2 cm LV V1 VTI: 15.1 cm AV (velocity ratio): 0.68 PA V2 max: 110.8 cm/sec PA V2 mean: 81.1 cm/sec ECHO/Echo Complete Interpretation Summary Normal LV size. Left ventricular systolic function is normal. The estimated ejection fraction is 60 %. Stage 1 diastolic dysfunction. Ordering Physician: Ar Torres Referring Physician: Eduard Henley MD Performed By: Karely Sanchez RDCS, RVT
[2023-04-24 02:16] LABS: Troponin-I HS 2962 pg/mL (3.0-78.0)
[2023-04-24] MEDS: Heparin Injection (Vial) 5,000 UNIT/ML VIAL 4000 UNIT IV (03:23)
[2023-04-24] MEDS: HEPARIN/D5w 25,000 UNITS 25,000 UNITS/250 ML IV.SOLN. 10 UNITS CONT INF (03:25)
[2023-04-24] MEDS: 0.9% Saline Lock 10 ML Syringe IV (03:29)
[2023-04-24 03:34] LABS: Absolute Lymphocyte Count 1.02 X10^3/uL (0.83-4.51); Absolute Neutrophil Count 3.1 X10^3/uL (2.0-7.7); Basophil# 0.04 X10^3/uL; Basophil% 0.8 % (0-1); Eosinophil# 0.21 X10^3/uL; Eosinophils% 4.3 % (0-5); Hemoglobin 13.9 g/dL (13.0-16.5); Lymphocyte # 1.02 X10^3/ul (0.83-4.51); Lymphocyte % 20.9 % (19-41); Mean Corp Hgb Conc 33.1 g/dL (32-36); Mean Corpuscular Hgb 32.9 pg (27.0-32.0); Mean Corpuscular Volume 99.3 fL (80-94); Mean Platelet Vol. 9.2 fl (6.2-12.0); Monocyte# 0.45 X10^3/uL; Monocyte% 9.2 % (0-10); NRBC Flagged by Analyzer 0 % (0-5); Neutrophil # 3.12 X10^3/uL (2.7-7.7); Neutrophil % 64.2 % (47-70); Platelet Count 192 K/mm3 (150-450); RBC Distribution Width CV 12.8 % (11.6-14.6); RBC Distribution Width SD 45.9 fl (35.1-43.9); Red Blood Count 4.23 M/mm3 (4.6-6.2); White Blood Count 4.9 K/mm3 (4.4-11.0)
[2023-04-24 03:45] LABS: Partial Thromboplast Time 22.7 Seconds (24.1-36.2); Prothrombin Time (Protime)PT. 12.8 SECONDS (11.7-14.9)
[2023-04-24 04:01] LABS: Anion Gap 6 (5-15); BUN 14 mg/dL (7-18); BUN/Creat Ratio 15.4 RATIO (10-20); Calcium,Total 9.2 mg/dL (8.5-10.1); Chloride 108 mmol/L (98-107); Cholesterol 210 mg/dL (200); Creatinine, Serum 0.91 mg/dL (0.70-1.30); EST Glomerular Filtration Rate 91 mL/min (>60); Est Glom Filt Rate - Afr Amer 110 mL/min (>60); Estimated Creatinine Clearance 95.93 ml/min; Glucose 106 mg/dL (74-106); High Density Lipoprotein 71 mg/dL; Sodium Level 138 mmol/L (136-145); Triglycerides 258 mg/dL; Very Low Density Lipoprotein 52 mg/dL (5-40)
[2023-04-24 04:02] LABS: Troponin-I HS 10728 pg/mL (3.0-78.0)
[2023-04-24] MEDS: Aspirin E.C. 81 MG Tablet PO (06:25)
[2023-04-24] MEDS: Losartan Potassium 50 MG Tablet PO (06:25)
[2023-04-24] MEDS: Clopidogrel Bisulfate 75 MG Tablet PO (06:25)
--- NOTE | 2023-04-24 06:28 | EKG12_ITS ---
Test Reason : Blood Pressure : / mmHG Vent. Rate : 072 BPM Atrial Rate : 072 BPM P-R Int : 158 ms QRS Dur : 098 ms QT Int : 422 ms P-R-T Axes : 037 -19 -14 degrees QTc Int : 462 ms Normal sinus rhythm Nonspecific T wave abnormality Prolonged QT Abnormal ECG When compared with ECG of 24-APR-2023 00:38, MANUAL COMPARISON REQUIRED, DATA IS UNCONFIRMED Confirmed by JAY SY, EZIO ([id number]), editor in chief newspaper RUBI ROMERO ([id number]) on 05/21/2023 1:48:50 PM Referred By: JAY Confirmed By:EZIO THOMPSON MD
--- NOTE | 2023-04-24 07:26 | CON.PCM.CA_ITS ---
Assessment & Plan Assessment/Plan (1) NSTEMI (non-ST elevated myocardial infarction): PLAN: He presents with chest discomfort and is noted to have a non-ST elevation myocardial infarction. The plan at this time will be for him to undergo a left heart catheterization risk benefits alternatives have been explained to him and depending on the findings further recommendations will be made. * In the meantime he will continue on the aspirin * Continue clopidogrel * Continue beta-robert * Continue high intensity statin. (2) Atherosclerotic heart disease of [place] coronary artery without angina pectoris: QUALIFIERS: [place] vs. transplanted heart: [place] heart Qualified Code(s): I25.10 - Atherosclerotic heart disease of [place] coronary artery without angina pectoris PLAN: He does have a history of atherosclerotic cardiovascular disease. He has had previous stenting of the obtuse marginal branch and left anterior descending artery and this will be reevaluated at the cardiac catheterization. (3) Essential hypertension: PLAN: His blood pressure will continue to be treated by the current regimen. (4) HLD (hyperlipidemia): QUALIFIERS: Hyperlipidemia type: unspecified Qualified Code(s): E78.5 - Hyperlipidemia, unspecified PLAN: He will continue on high intensity statin. PLAN: Plan Cardiac catheterization demonstrated the following: Normal left main coronary artery. Left anterior descending artery previously stented is noted to have distal portion of the stent with a 95% stenotic lesion. Ramus intermedius which is subtotally occluded. Left circumflex artery with mild disease. Codominant right coronary artery with no significant disease. Preserved left ventricular systolic function. Based on the above angiographic findings the patient will undergo PCI of the mid LAD. HPI Consult Data Date of Consult: 04/24/23 HPI Narrative HPI Narrative: JOVANY MUÑIZ, is a 57 M who presents to the emergency room complaining of chest discomfort as well as difficulty enunciating his words. This apparently started last night. He had been compliant with all his medications and denied any shortness of breath or paroxysmal nocturnal dyspnea. He started complaining of the above called the emergency medical squad who at the time initially thought that he had had a cerebrovascular accident. He was brought to the emergency room and EKG on my read did demonstrate subtle changes in lead I and aVL and ST depression noted in 3 and aVF which may be considered on injury pattern but a ST FREDA was not called. And CT scan did not demonstrate any acute changes. Cardiac enzymes however were noted to be abnormal. He does have a history of hypertension, coronary artery disease status post previous angioplasty and stenting of the obtuse marginal branch, left circumflex artery, and left a nterior descending artery. He had had a stress test a year ago which demonstrated no evidence of ischemia. At this particular time his cardiac enzymes were noted to be markedly elevated. He was treated with intravenous heparin cardiology was called for further evaluation and management. [facility] Medical History (Updated 04/24/23 @ 07:[address] Jose Lockwood MD) Atherosclerotic heart disease of [place] coronary artery without angina pectoris Essential hypertension HLD (hyperlipidemia) Old myocardial infarction Presence of stent in coronary artery (~06/19/10) Home Medications aspirin 81 mg tablet,delayed release (Adult Low Dose Aspirin) 81 mg PO QDAY heart health 08/06/17 [History Last Taken 10/30/21] clopidogrel 75 mg tablet 75 mg PO QDAY anti platelet 90 days #90 tabs 08/06/17 [History Last Taken 10/30/21] loratadine 10 mg tablet (Claritin) 10 mg PO QDAY PRN Allergies 08/06/17 [History Last Taken 10/30/21] nitroglycerin 0.4 mg sublingual tablet (Nitrostat) 0.4 mg sublingual Q5M PRN CHEST PAIN 08/06/17 [History Last Taken 10/30/21] buspirone 5 mg tablet 5 mg PO BID 04/23/23 [History Last Taken Unknown] losartan 50 mg tablet 50 mg PO .day 04/23/23 [History Last Taken Unknown] sildenafil 100 mg tablet 100 mg PO PRN PRN sexual activity 04/23/23 [History Last Taken Unknown] Allergy/AdvReac Type Severity Reaction Status Date / Time No Known Allergies Allergy Verified 09/05/22 14:16 Family History Grandfather , age 76 CVA (cerebral vascular accident) Surgical History History of left heart catheterization (~12/2010) Presence of coronary angioplasty implant and graft (~06/19/10) Social History Smoking Status: Former smoker how long ago did patient quit smokin alcohol intake: current alcohol intake frequency: 0-2 drinks per day Alcohol type: beer substance use type: does not use caffeine: Yes Type: coffee Number of servings: 2 what type of physical activity do you participate in: none seatbelt use: sometimes do you feel safe at home: Yes ROS Constitutional Constitutional: Denies fever(s) or weight loss Eyes Eyes: Reports systems reviewed and no addt'l complaints, except as documented ENT HEENT: Reports systems reviewed and no addt'l complaints, except as documented Cardiovascular Cardiovascular: Denies chest pain at rest, chest pain with activity, dyspnea at rest, dyspnea on exertion, edema, palpitations or paroxysmal nocturnal dyspnea Respiratory/Chest Respiratory/Chest: Denies dyspnea on exertion, productive cough, shortness of breath at rest or shortness of breath with exertion Gastrointestinal Gastrointestinal: Denies change in bowel habits, nausea, vomiting or weight changes Genitourinary Genitourinary: Denies difficulty urinating Musculoskeletal Musculoskeletal: Denies joint stiffness or muscle weakness Integumentary Integumentary: Denies lesions Neurologic Neurologic: Denies dizziness or syncope Psychiatric Psychiatric: Denies anxiety Endocrine Endocrinology: Denies excessive sweating or fatigue Hematologic/Lymphatic Hematologic/Lymphatic: Denies anemia Allergic/Immunologic Allergic/Immunologic: Denies seasonal rhinorrhea Physical Exam Const alert, oriented x3 and no apparent distress General Appearance: cooperative HEENT hearing grossly normal bilaterally Head and Scalp: atraumatic Eyes EOMs intact bilaterally Neck General: normal visual inspection Chest inspection of chest normal and palpation of chest normal Resp normal respiratory effort Auscultation: clear to auscultation bilaterally Cardio regular rate, regular rhythm, S1 normal heart sound and S2 normal heart sound Jugular Venous Distention: JVD GI normal to inspection, nondistended, normoactive bowel sounds Extremity normal capillary refill and no pedal edema Peripheral Pulses: Yes pulses 2+ throughout and femoral pulses present Skin no rashes or lesions noted Neuro oriented x3 and CN's II-XII intact bilaterally Psych Appearance: grossly normal and appropriate Risk Stratification Risk Stratification Applicable: Yes Age >/= 65: No >/= 3 CAD Risk Factors (HTN, HLD, DM, family hx of CAD, or current smoker): Yes Aspirin Use in the Past 7 Days: Yes Severe Angina (>/= episodes in 24 hours): Yes EKG ST Changes >/= 0.5mm: No Positive Cardiac Marker: Yes JENN Risk Stratification Score: 4 JENN % Risk: 20% Risk Objective Data Vital Signs: Vital Signs Temp Pulse Resp BP Pulse Ox O2 Del Method 98.1 F 86 17 119/80 98 Room Air 04/24/23 03:37 04/24/23 03:37 04/24/23 03:37 04/24/23 03:37 04/24/23 03:37 04/24/23 03:37 Oxygen Delivery Method Room Air Weight: 213 lb 2.992 oz Body Mass Index (BMI) 28.9 Lab / Micro Data 04/24/23 03:25 04/24/23 03:25 Labs: Laboratory Results - last 24 hr 04/23/23 21:30: WBC 5.3, RBC 4.28 L, Hgb 14.0, Hct 42.3, MCV 98.8 H, MCH 32.7 H, MCHC 33.1, RDW Std Deviation 45.7 H, RDW Coeff of [place] 12.6, Plt Count 226, MPV 9.5, Immature Gran % (Auto) 0.400, Neut % (Auto) 48.0, Lymph % (Auto) 32.1, [place] % (Auto) 12.1 H, Eos % (Auto) 6.3 H, Baso % (Auto) 1.1 H, Absolute Neuts (auto) 2.5, Absolute Lymphs (auto) 1.69, Nucleated RBC % 0, Sodium 141, Potassium 3.4 L , Chloride 108 H, Carbon Dioxide 24.0, Anion Gap 9, BUN 15, Creatinine 1.24, Estim Creat Clear Calc 70.40, Est GFR (MDRD) Af Amer 77, Est GFR (MDRD) Non-Af 63, BUN/Creatinine Ratio 12.1, Glucose 104, Calcium 8.8, Troponin I High Sens 6 04/23/23 21:55: PT 12.9, INR 1.0, APTT 23.0 L 04/24/23 01:20: Troponin I High Sens 2962 H* 04/24/23 03:25: WBC 4.9, RBC 4.23 L, Hgb 13.9, Hct 42.0, MCV 99.3 H, MCH 32.9 H, MCHC 33.1, RDW Std Deviation 45.9 H, RDW Coeff of [place] 12.8, Plt Count 192, MPV 9.2, Immature Gran % (Auto) 0.600, Neut % (Auto) 64.2, Lymph % (Auto) 20.9, [place] % (Auto) 9.2, Eos % (Auto) 4.3, Baso % (Auto) 0.8, Absolute Neuts (auto) 3.1, Absolute Lymphs (auto) 1.02, Nucleated RBC % 0, PT 12.8, INR 1.0, APTT 22.7 L, Sodium 138, Potassium 4.0, Chloride 108 H, Carbon Dioxide 24.0, Anion Gap 6, BUN 14, Creatinine 0.91, Estim Creat Clear Calc 95.93, Est GFR (MDRD) Af Amer 110, Est GFR (MDRD) Non-Af 91, BUN/Creatinine Ratio 15.4, Glucose 106, Calcium 9.2, Troponin I High Sens 73919 H*, Triglycerides 258 H, Cholesterol 210 H, LDL Cholesterol 87, VLDL Cholesterol 52 H, HDL Cholesterol 71 Cardiology Labs/Tests 04/23/23 21:30: WBC 5.3, RBC 4.28 L, Hgb 14.0, Hct 42.3, MCV 98.8 H, MCH 32.7 H, MCHC 33.1, Plt Count 226, MPV 9.5, Immature Gran % (Auto) 0.400, Neut % (Auto) 48.0, Lymph % (Auto) 32.1, [place] % (Auto) 12.1 H, Eos % (Auto) 6.3 H, Baso % (Auto) 1.1 H, Absolute Neuts (auto) 2.5, Nucleated RBC % 0, Sodium 141, Potassium 3.4 L, Chloride 108 H, Carbon Dioxide 24.0, Anion Gap 9, BUN 15, Creatinine 1.24, Est GFR (MDRD) Af Amer 77, Est GFR (MDRD) Non-Af 63, BUN/Creatinine Ratio 12.1, Glucose 104, Calcium 8.8 04/23/23 21:55: PT 12.9, INR 1.0, APTT 23.0 L 04/24/23 03:25: WBC 4.9, RBC 4.23 L, Hgb 13.9, Hct 42.0, MCV 99.3 H, MCH 32.9 H, MCHC 33.1, Plt Count 192, MPV 9.2, Immature Gran % (Auto) 0.600, Neut % (Auto) 64.2, Lymph % (Auto) 20.9, [place] % (Auto) 9.2, Eos % (Auto) 4.3, Baso % (Auto) 0.8, Absolute Neuts (auto) 3.1, Nucleated RBC % 0, PT 12.8, INR 1.0, APTT 22.7 L , Sodium 138, Potassium 4.0, Chloride 108 H, Carbon Dioxide 24.0, Anion Gap 6, BUN 14, Creatinine 0.91, Est GFR (MDRD) Af Amer 110, Est GFR (MDRD) Non-Af 91, BUN/Creatinine Ratio 15.4, Glucose 106, Calcium 9.2, Triglycerides 258 H, Cholesterol 210 H, LDL Cholesterol 87, VLDL Cholesterol 52 H, HDL Cholesterol 71 Rhythm: EKG: ECHO: Stress Test: Cardiac Cath: PCI: CT Surgery: Holter monitor: EPS: PPM: CXR: Chest CT Scan: Radiography Diagnostic Testing: Radiology Impression Brain CT 04/23/23 21:34 IMPRESSION: Negative Brain CT without contrast. Electronically Signed: Kris White MD at 21:54 EDT , ADDENDUM: 04/23/232201 IMPRESSION: Negative Brain CT without contrast. N.B. : The above Results were Read Back by Kris White MD to Perez Dave DO, and understanding confirmed on 04/23/2023 21:55:56 (ET). Electronically Signed: Kris White MD at 21:54 EDT , Head/Neck CTA 04/23/23 21:34 IMPRESSION: Normal CTA Head with contrast. Moderate (60%) carotid stenosis bilaterally. Patent vertebral arteries bilaterally. Electronically Signed: Kris White MD at 22:05 EDT , ADDENDUM: 04/23/233 IMPRESSION: Normal CTA Head with contrast. Moderate (60%) carotid stenosis bilaterally. Patent vertebral arteries bilaterally. N.B. : The above Results were Read Back by Kris White MD to Perez Dave DO, and understanding confirmed on 04/23/2023 22:06:20 (ET). Electronically Signed: Kris White MD at 22:05 EDT , Chest X-Ray 04/23/23 22:14 IMPRESSION: Normal x-ray examination of the chest. Electronically Signed: Kris White MD at 22:32 EDT Reading Location ID and State: [id number] / [employer] , Service support ,
[2023-04-24 08:07] LABS: Troponin-I HS 11986 pg/mL (3.0-78.0)
--- NOTE | 2023-04-24 08:20 | PN.HOSP_ITS ---
Subjective Subjective Feels well. Some mild chest discomfort, but vastly improved. States that he had left sided weakness from his face to his leg. Now completely resolved. Objective Data Objective Data Vital Signs: Vital Signs Temp Pulse Resp BP Pulse Ox O2 Del Method 36.7 C 86 17 119/80 98 Room Air 04/24/23 03:37 04/24/23 03:37 04/24/23 03:37 04/24/23 03:37 04/24/23 03:37 04/24/23 03:37 Oxygen Delivery Method Room Air Weight: 96.7 kg Body Mass Index (BMI) 28.9 Lab / Micro Data 04/24/23 03:25 04/24/23 03:25 Labs: Laboratory Results - last 24 hr 04/23/23 21:30: WBC 5.3, RBC 4.28 L, Hgb 14.0, Hct 42.3, MCV 98.8 H, MCH 32.7 H, MCHC 33.1, RDW Std Deviation 45.7 H, RDW Coeff of [place] 12.6, Plt Count 226, MPV 9.5, Immature Gran % (Auto) 0.400, Neut % (Auto) 48.0, Lymph % (Auto) 32.1, [place] % (Auto) 12.1 H, Eos % (Auto) 6.3 H, Baso % (Auto) 1.1 H, Absolute Neuts (auto) 2.5, Absolute Lymphs (auto) 1.69, Nucleated RBC % 0, Sodium 141, Potassium 3.4 L , Chloride 108 H, Carbon Dioxide 24.0, Anion Gap 9, BUN 15, Creatinine 1.24, Estim Creat Clear Calc 70.40, Est GFR (MDRD) Af Amer 77, Est GFR (MDRD) Non-Af 63, BUN/Creatinine Ratio 12.1, Glucose 104, Calcium 8.8, Troponin I High Sens 6 04/23/23 21:55: PT 12.9, INR 1.0, APTT 23.0 L 04/24/23 01:20: Troponin I High Sens 2962 H* 04/24/23 03:25: WBC 4.9, RBC 4.23 L, Hgb 13.9, Hct 42.0, MCV 99.3 H, MCH 32.9 H, MCHC 33.1, RDW Std Deviation 45.9 H, RDW Coeff of [place] 12.8, Plt Count 192, MPV 9.2, Immature Gran % (Auto) 0.600, Neut % (Auto) 64.2, Lymph % (Auto) 20.9, [place] % (Auto) 9.2, Eos % (Auto) 4.3, Baso % (Auto) 0.8, Absolute Neuts (auto) 3.1, Absolute Lymphs (auto) 1.02, Nucleated RBC % 0, PT 12.8, INR 1.0, APTT 22.7 L, Sodium 138, Potassium 4.0, Chloride 108 H, Carbon Dioxide 24.0, Anion Gap 6, BUN 14, Creatinine 0.91, Estim Creat Clear Calc 95.93, Est GFR (MDRD) Af Amer 110, Est GFR (MDRD) Non-Af 91, BUN/Creatinine Ratio 15.4, Glucose 106, Calcium 9.2, Troponin I High Sens 68467 H*, Triglycerides 258 H, Cholesterol 210 H, LDL Cholesterol 87, VLDL Cholesterol 52 H, HDL Cholesterol 71 04/24/23 07:02: Troponin I High Sens 46416 H* Radiography Diagnostic Testing: Radiology Impression Brain CT 04/23/23 21:34 IMPRESSION: Negative Brain CT without contrast. Electronically Signed: Kris White MD at 21:54 EDT , ADDENDUM: 04/23/232 IMPRESSION: Negative Brain CT without contrast. N.B. : The above Results were Read Back by Kris White MD to Perez Dave DO, and understanding confirmed on 04/23/2023 21:55:56 (ET). Electronically Signed: Kris White MD at 21:54 EDT , Head/Neck CTA 04/23/23 21:34 IMPRESSION: Normal CTA Head with contrast. Moderate (60%) carotid stenosis bilaterally. Patent vertebral arteries bilaterally. Electronically Signed: Kris White MD at 22:05 EDT Reading Location ID and State: [phone] / [employer] Tel , Service support , ADDENDUM: 04/23/23 3091 IMPRESSION: Normal CTA Head with contrast. Moderate (60%) carotid stenosis bilaterally. Patent vertebral arteries bilaterally. N.B. : The above Results were Read Back by Kris White MD to Perez Dave DO, and understanding confirmed on 04/23/2023 22:06:20 (ET). Electronically Signed: Kris White MD at 22:05 EDT Reading Location ID and State: [phone] / [employer] Tel , Service support , Chest X-Ray 04/23/23 22:14 IMPRESSION: Normal x-ray examination of the chest. Electronically Signed: Kris White MD at 22:32 EDT Reading Location ID and State: [phone] / [employer] Tel , Service support , Physical Exam Const alert and no apparent distress HEENT head/scalp atraumatic and moist oral mucous membranes Resp normal respiratory effort, no retractions, no use of accessory muscles and clear to auscultation bilaterally Cardio regular rate, regular rhythm, S1 normal heart sound and S2 normal heart sound GI normal to inspection, nondistended, normoactive bowel sounds, soft to palpation and non-tender Extremity normal to inspection Neuro oriented x3, CN's II-XII intact bilaterally, moves all extremities, no focal motor deficits and no sensory deficits noted Sensorium / Orientation: awake and alert Coordination / Balance: [id number] test normal and [id number] test normal Speech: speech normal Psych affect normal Assessment & Plan Assessment/Plan (1) Brain TIA: PLAN: Suspected Pt had left-sided paresthesias and facial droop Head CT negative. CTA H/N showed 60% carotid stenosis. MRI pending PT OT ST Continue ASA (2) NSTEMI (non-ST elevated myocardial infarction): PLAN: Troponins up to 11,986. Heparin gtt ASA, clopidogrel, losartan s/p PCI to high-grade stenosis of LAD. Echo shows and EF of 60% PLAN: Plan Chronic conditions: * CAD: known. Previous PCI to OM and LAD. * HTN: continue losartan * ED: event occurred during sexual encounter while taking sildenafil. VTE prophylaxis: not indicted as pt is anticoagulated. Charges/Coding Visit Charges Inpatient E&M: 58536 Subs Hosp L2
--- NOTE | 2023-04-24 09:08 | NURSING ---
hemodialysis lab technician called saying that pt done with echo and ready. pt up to void and iv heparin continues. in at bedside. pt with no questions over proceedure. again with vent tachycardia obs on monitor with 8beats obs. pt pain free and no neuro symptoms at this time.
--- NOTE | 2023-04-24 10:09 | CL.D_ITS ---
Patient Name: JOVANY MUÑIZ Study Date: 04/24/2023 Performing: Jose Lockwood MD Ht: 72 inches 182.88 cm : 1965 Wt: 213.19 lbs 96.7 kg Age: 57 Gender: male BSA: 2.19 PROCEDURE(S) PERFORMED [id number])LHC/COR/LV CLINICAL PROFILE AND INDICATIONS Indications: ACS <= 24 hrs Heart Failure: None Stress/Imaging Stress/Image Study Performed: No CAD Presentations: Non-STEMI. Symptom onset Date/Time: 04/23/23 Time Not Available CONCLUSIONS High-grade stenosis noted in the mid LAD immediately post stent and is subtotally occluded ramus intermedius RECOMMENDATIONS Referred for immediate PCI DESCRIPTION OF PROCEDURE The patient arrived to the procedure lab. The risks and benefits of the procedure as well as a full description of our services here and current unavailability of surgical backup were fully explained to the patient and/or their significant other prior to the catheterization. The Timeout was completed, verifying the correct patient and procedure. The patient's procedural site was prepped and draped in the usual fashion. Local anesthetic was given subcutaneously to right radial region with Lidocaine 2%. Using a modified Seldinger technique, arterial access was obtained via the right radial artery, a 6Fr sheath was inserted. Left Coronary Artery selective angiography was performed in multiple views using a 5 Fr. 4.0 [place] catheter. Right Coronary Artery selective angiography was then performed in multiple views using a 5 Fr. 4.0 [place] catheter. Left Ventriculography was performed in [place] projection using a 5 Fr. [place] catheter. LV to AO pullback pressures were then recorded. CORONARY ANGIOGRAPHY DOMINANCE: Co- Dominant LEFT HEART ASSESSMENT Left Ventricular Ejection Fraction: by LV Gram 60 % Normal LV wall motion Normal Left Ventricular systolic function LEFT MAIN: Angiographically normal LEFT ANTERIOR DESCENDING ARTERY: Previously stented vessel is noted to be patent with the distal portion having a high-grade 95% stenotic lesion noted. The first diagonal vessel has mild disease CIRCUMFLEX ARTERY: Mild luminal irregularities RAMUS: Subtotally occluded RIGHT CORONARY ARTERY: Mild luminal irregularities COMPLICATIONS PROCEDURE MEDICATIONS Versed 1 mg IV Fentanyl 50 mcg IV Oxygen: 2 L/min via nasal cannula Heparin 5000 unit(s) IV 04/24/2023 10:02:23 SUMMARY OF HEMODYNAMIC DATA Time AIR REST ECG 09:30:15 AO 133/77 (102) SA 09:51:12 LV 128/0, 8 09:56:12 LV 129/0, 8 09:56:20 LV 125/1, 7 09:56:59 LV 133/3, 11 09:57:07 LVp 131/2, 11 09:57:13 AOp 128/79 (102) 09:57:20 Signed By Jose Lockwood MD On 04/24/2023 10:09:07 Jose Lockwood MD
--- NOTE | 2023-04-24 12:02 | CRPHASE1_ITS ---
Patient Communication Patient Information Former Patient:: Phase I PHII Cardiac Rehab Discussed with Patient:: Yes Guide to Cardiac Rehab Given to Patient:: Yes Cardiac Rehab Facility Choice List Given to Patient:: Yes Communication to Cardiac Rehab Choice Program [facility] CR PHII:: Communication Given to CR Rail Detector Car Operator:: Eileen Ray Phase II Cardiac Rehab:: Yes Sessions:: 36 sessions - 3 days/wk, 12 weeks Cardiac Rehabilitation Info Program Information Cardiac Rehabilitation Program Information: Cardiac Rehab The cardiac rehab team at [facility] consists of highly skilled exercise physiologists, nurses, respiratory therapists and physicians working together with you. Our purpose is to help you have a full recovery and achieve the goals you set for yourself. Over the years many of our patients have returned to activities they assumed they would never do again! We can help restore your confidence and motivation to make lifestyle changes that can have a significant impact on your health and quality of life! We can help answer questions and concerns you may have about exercise, lifestyle, medications, diet, stress and anxiety which are common following a hospitalization. WE monitor ECG and vital signs during exercise and discuss your progress with you and report to your physician(s). Cardiac Rehab is proven to help reduce readmissions, improve functional capacity and lower recurrence of problems with your heart. Our Cardiac Rehab program is Certified by the [place] [employer]-Vascular and Pulmonary [employer] (AACVPR) and Accredited by the [place] [employer] through our [facility]. You can contact us at . We invite you to call us with your questions or to get started in our program. If you have other questions or concerns be sure to ask your physician/provider during your follow-up visit. WE look forward to seeing you!
--- NOTE | 2023-04-24 12:03 | CRPH1.INSTRU ---
General Education Discussed with Patient CAD and cardiac anatomy and function:: Patient communicates acknowledgment Explanation of diagnoses and procedures:: Patient communicates acknowledgment Sign/Symptoms of PA:: Patient communicates acknowledgment Antiplatelet therapy: Patient communicates acknowledgment Proper use of NTG-SL: Patient communicates acknowledgment Emergency procedures and activation of EMS: Patient communicates acknowledgment Compliance of all prescribed medications: Patient communicates acknowledgment Smoking Risk Factors Patient Nicotine/Smoking Risk Factors Are:: Cigarettes and Non-smoker Recommendations Recommendations Include:: Previous smoker; encourage continued cessation Response Code Nicotine/Smoking Response Code:: Patient communicates acknowledgment Dyslipidemia Risk Factors Patient Dyslipidemia Risk Factors Are:: Total Cholesterol, Triglycerides, HDL and LDL Recommendations Recommendations Include:: Lipid profile provided, Reviewed NCEP/ATP guidelines and Therapeutic Lifestyle Change dietary guidelines Response Code Dyslipidemia Response Code:: Patient communicates acknowledgment Overweight/Obesity Risk Factors Patient Overweight/Obesity Risk Factors Are:: Overweight = 26-29 Recommendations Recommendations Include:: Weight loss of 5-10%, Reduced calorie diet and Exercise 5-7 times/week Response Code Overweight/Obesity:: Patient communicates acknowledgment Hypertension Recommendations Recommendations Include:: Maintain BP <130/85, DASH dietary guidelines, Decrease/maintain normal body weight and Moderation of ETOH Response Code Hypertension:: Patient communicates acknowledgment Heart Disease Risk Factors Patient Heart Disease Risk Factors Are:: Previous cardiac event Recommendations Recommendations Include:: Educated family members of their risk Response Code Heart Disease Response Code:: Patient communicates acknowledgment Diabetes Risk Factors Patient Diabetes Risk Factors Are:: No documented hx of diabetes Metabolic Syndrome Recommendations Recommendations Include:: Does not meet criteria Sedentary Risk Factors Patient Sedentary Risk Factors Are:: Lack of regular exercise Recommendations Recommendations Include:: Aerobic exercise 5-7 times/week for 20-30 minutes continuously, Benefits of regular exercise, Discussed home walking program and Monitored Outpatient Cardiac Rehab Response Code Sedentary Response Code:: Patient communicates acknowledgment Stress Recommendations Recommendations Include:: Identification of stressors, and assessment of coping skills and Stress management techniques Response Code Stress Response Code:: Patient communicates acknowledgment
[2023-04-24 12:13] LABS: ACT Activated Clotting Time 197 sec (74-137)
[2023-04-24] MEDS: 0.9% Normal Saline (1000mL) 1,000 ML 80 ML IV (12:28)
[2023-04-24] MEDS: TICAGRELOR 90 MG TABLET 180 MG PO (12:28)
[2023-04-24] MEDS: busPIRone 5 MG Tablet PO ×2 (12:28→21:55)
--- NOTE | 2023-04-24 14:05 | CASEMGMT ---
RN CM Face to Face with patient for initial transition planning/care coordination assessment. RN CM introduced self and role at [facility]. Patient lying in bed, alert and oriented, at bedside. Patient willing to participate in assessment and is able to answer all questions appropriately. Care providers, pharmacy, and demographics verified. Patient wishes to discharge home, denies need for home health at this time. Patient states he has no further needs or concerns at this time. CM to follow for discharge planning needs that may arise. PCP: Kale Specialists: [facility] Preferred Pharmacy: [facility] Insurance: [employer] Prescription Benefit: yes Living Will/HPOA: none LNOK: Living Arrangements: Patient lives with in a 1.5 story home with bed and bath on first floor. Patient has 1 step to enter the home. Patient states he is independent at home. Transportation: self, DME/HHC: Patient states he has raised toilet. No previous HHC or SNF Disposition Plan: Patient to discharge home with family support and follow-up plans in place. Margo BARRERA, RN, CM
[2023-04-24] MEDS: Acetaminophen 325 MG Tablet 650 MG PO (18:23)
[2023-04-24] MEDS: Atorvastatin Calcium 80 MG Tablet PO (21:55)
[2023-04-25 02:23] VITALS: BMI 28.9
[2023-04-25 04:12] VITALS: BP 126/80; PULSE 62; RESP 18; TEMP 36.2; O2SAT 97
[2023-04-25 06:52] LABS: Hematocrit 41.3 % (40-54); Hemoglobin 13.9 g/dL (13.0-16.5); Mean Corp Hgb Conc 33.7 g/dL (32-36); Mean Corpuscular Hgb 33.6 pg (27.0-32.0); Mean Corpuscular Volume 99.8 fL (80-94); Mean Platelet Vol. 9.5 fl (6.2-12.0); Platelet Count 185 K/mm3 (150-450); RBC Distribution Width CV 12.9 % (11.6-14.6); RBC Distribution Width SD 47.3 fl (35.1-43.9); Red Blood Count 4.14 M/mm3 (4.6-6.2); White Blood Count 4.7 K/mm3 (4.4-11.0)
--- NOTE | 2023-04-25 07:20 | PN.CARD_ITS ---
Subjective Subjective Patient seen and evaluated appears to be doing well. No complaints. Objective Data Vital Signs: Vital Signs Temp Pulse Resp BP Pulse Ox O2 Del Method 97.1 F L 62 18 126/80 H 97 Room Air 04/25/23 04:12 04/25/23 04:12 04/25/23 04:12 04/25/23 04:12 04/25/23 04:12 04/25/23 04:12 Oxygen Delivery Method Room Air Weight: 213 lb 2.992 oz Body Mass Index (BMI) 28.9 Intake & Output: Intake and Output for Last 24 Hours 04/23/23 04/24/23 04/25/23 23:59 23:59 23:59 Intake Total 1233.50 / 1233.50 Balance 1233.50 / 1233.50 Lab / Micro Data 04/25/23 06:27 04/24/23 03:25 Labs: Laboratory Results - last 24 hr 04/24/23 07:02: Troponin I High Sens 40049 H* 04/24/23 10:33: Activated Clotting Time 197 H 04/25/23 06:27: WBC 4.7, RBC 4.14 L, Hgb 13.9, Hct 41.3, MCV 99.8 H, MCH 33.6 H, MCHC 33.7, RDW Std Deviation 47.3 H, RDW Coeff of Leticia 12.9, Plt Count 185, MPV 9.5 Cardiology Labs/Tests 04/25/23 06:27: WBC 4.7, RBC 4.14 L, Hgb 13.9, Hct 41.3, MCV 99.8 H, MCH 33.6 H, MCHC 33.7, Plt Count 185, MPV 9.5 Rhythm: EKG: ECHO: Stress Test: Cardiac Cath: PCI: CT Surgery: Holter monitor: EPS: PPM: CXR: Chest CT Scan: Radiography Diagnostic Testing: Radiology Impression Brain MRI 04/24/23 00:08 IMPRESSION: undefined Echocardiogram 04/24/23 00:08 Interpretation Summary Normal LV size. Left ventricular systolic function is normal. The estimated ejection fraction is 60 %. Stage 1 diastolic dysfunction. Ordering Physician: Ar Torres Referring Physician: Eduard Henley MD Performed By: Karely Sanchez, RDCS, RVT Physical Exam Const alert and no apparent distress HEENT head/scalp atraumatic and moist oral mucous membranes Resp normal respiratory effort, no retractions, no use of accessory muscles and clear to auscultation bilaterally Cardio regular rate, regular rhythm, S1 normal heart sound and S2 normal heart sound GI normal to inspection, nondistended, normoactive bowel sounds, soft to palpation and non-tender Extremity normal to inspection Neuro oriented x3, CN's II-XII intact bilaterally, moves all extremities, no focal mot or deficits and no sensory deficits noted Sensorium / Orientation: awake and alert Coordination / Balance: [id number] test normal and [id number] test normal Speech: speech normal Psych affect normal Assessment & Plan Assessment/Plan (1) NSTEMI (non-ST elevated myocardial infarction): PLAN: He presents with chest discomfort and is noted to have a non-ST elevation myocardial infarction. Patient underwent PCI of the mid LAD previously stented vessel and ramus intermedius. Episode of 4 beat nonsustained VT noted. * In the meantime he will continue on the aspirin * Continue Brilinta * Continue beta-robert * Continue high intensity statin. (2) Atherosclerotic heart disease of [place] coronary artery without angina pecto ris: QUALIFIERS: [place] vs. transplanted heart: [place] heart Qualified Code(s): I25.10 - Atherosclerotic heart disease of [place] coronary artery without angina pectoris PLAN: He does have a history of atherosclerotic cardiovascular disease. He has had previous stenting of the obtuse marginal branch and left anterior descending artery. (3) Essential hypertension: PLAN: His blood pressure will continue to be treated by the current regimen. (4) HLD (hyperlipidemia): QUALIFIERS: Hyperlipidemia type: unspecified Qualified Code(s): E78.5 - Hyperlipidemia, unspecified PLAN: He will continue on high intensity statin. PLAN: Plan Cardiac catheterization demonstrated the following: Normal left main coronary artery. Left anterior descending artery previously stented is noted to have distal portion of the stent with a 95% stenotic lesion. Ramus intermedius which is subtotally occluded. Left circumflex artery with mild disease. Codominant right coronary artery with no significant disease. Preserved left ventricular systolic function. Based on the above angiographic findings the patient underwent PCI of the mid LAD and the ramus intermedius. Patient can be discharged for outpatient follow-up.
[2023-04-25 07:23] LABS: ALB/GLOB Ratio 0.8 RATIO (0.9-2.4); AST(SGOT) 73 U/L (15-37); Alanine Aminotransfer ALT/SGPT 50 U/L (16-61); Albumin, Serum 3.1 g/dL (3.2-5.0); Alkaline Phosphatase 61 U/L (45-117); Anion Gap 3 (5-15); BUN 10 mg/dL (7-18); BUN/Creat Ratio 10.2 RATIO (10-20); Calcium,Total 8.6 mg/dL (8.5-10.1); Chloride 109 mmol/L (98-107); Creatinine, Serum 0.98 mg/dL (0.70-1.30); EST Glomerular Filtration Rate 83 mL/min (>60); Est Glom Filt Rate - Afr Amer 100 mL/min (>60); Estimated Creatinine Clearance 89.08 ml/min; Globulin 3.9 g/dL (2.2-4.2); Glucose 104 mg/dL (74-106); Potassium 3.9 mmol/L (3.5-5.1); Sodium Level 139 mmol/L (136-145)
[2023-04-25 07:36] VITALS: O2SAT 96
--- NOTE | 2023-04-25 08:50 | PCM.PN.HOSP ---
Reason for Visit Reason for Visit: Diagnoses Hyperlipidemia, unspecified (04/23/23) Transient cerebral ischemic attack, unspecified (04/23/23) Essential (primary) hypertension (04/23/23) Non-ST elevation (NSTEMI) myocardial infarction (04/23/23) Atherosclerotic heart disease of [place] coronary artery without angina pectoris (04/23/23) Chest pain, unspecified (04/23/23) Subjective Subjective feels good Objective Data Objective Data Vital Signs: Vital Signs Temp Pulse Resp BP Pulse Ox O2 Del Method 36.2 C L 62 18 126/80 H 97 Room Air 04/25/23 04:12 04/25/23 04:12 04/25/23 04:12 04/25/23 04:12 04/25/23 04:12 04/25/23 07:50 Oxygen Delivery Method Room Air Weight: 96.7 kg Body Mass Index (BMI) 28.9 Intake & Output: Intake and Output for Last 24 Hours 04/23/23 04/24/23 04/25/23 23:59 23:59 23:59 Intake Total 1233.50 / 1233.50 Balance 1233.50 / 1233.50 Lab / Micro Data 04/25/23 06:27 04/25/23 06:27 Labs: Laboratory Results - last 24 hr 04/24/23 10:33: Activated Clotting Time 197 H 04/25/23 06:27: WBC 4.7, RBC 4.14 L, Hgb 13.9, Hct 41.3, MCV 99.8 H, MCH 33.6 H, MCHC 33.7, RDW Std Deviation 47.3 H, RDW Coeff of Leticia 12.9, Plt Count 185, MPV 9.5, Sodium 139, Potassium 3.9, Chloride 109 H, Carbon Dioxide 27.0, Anion Gap 3 L, BUN 10, Creatinine 0.98, Estim Creat Clear Calc 89.08, Est GFR (MDRD) Af Amer 100, Est GFR (MDRD) Non-Af 83, BUN/Creatinine Ratio 10.2, Glucose 104, Calcium 8.6, Total Bilirubin 0.40, AST 73 H, ALT 50, Alkaline Phosphatase 61, Total Protein 7.0, Albumin 3.1 L, Globulin 3.9, Albumin/Globulin Ratio 0.8 L Radiography Diagnostic Testing: Radiology Impression Brain MRI 04/24/23 00:08 IMPRESSION: undefined Echocardiogram 04/24/23 00:08 Interpretation Summary Normal LV size. Left ventricular systolic function is normal. The estimated ejection fraction is 60 %. Stage 1 diastolic dysfunction. Ordering Physician: Ar Torres Referring Physician: Eduard Henley MD Performed By: Karely Sanchez, LASHAWN, RVT Physical Exam Const alert and no apparent distress HEENT head/scalp atraumatic and moist oral mucous membranes Resp normal respiratory effort, no retractions, no use of accessory muscles and clear to auscultation bilaterally Cardio regular rate, regular rhythm, S1 normal heart sound and S2 normal heart sound GI normal to inspection, nondistended, normoactive bowel sounds, soft to palpation, non-tender and non-distended Extremity normal to inspection Assessment & Plan Assessment/Plan (1) NSTEMI (non-ST elevated myocardial infarction): PLAN: Troponins up to 11,986. ASA, ticagrelor, losartan s/p PCI to high-grade stenosis of LAD. Echo shows and EF of 60% (2) Brain TIA: PLAN: Suspected Pt had left-sided paresthesias and facial droop Head CT negative. CTA H/N showed 60% carotid stenosis. MRI negative. PT OT ST Continue ASA PLAN: Plan Chronic conditions: CAD: known. Previous PCI to OM and LAD. HTN: continue losartan ED: event occurred during sexual encounter while taking sildenafil.
[2023-04-25 09:32] LABS: Hemoglobin A1c 5.6 % (3.8-5.6)
--- NOTE | 2023-04-25 10:00 | EKG12_ITS ---
Test Reason : AM EKG Blood Pressure : / mmHG Vent. Rate : 063 BPM Atrial Rate : 063 BPM P-R Int : 156 ms QRS Dur : 092 ms QT Int : 428 ms P-R-T Axes : 038 -30 036 degrees QTc Int : 437 ms Normal sinus rhythm Left axis deviation Inferior infarct , age undetermined Abnormal ECG Confirmed by JAY SY, EZIO ([id number]), digital editor LEXII BARNES ([id number]) on 05/27/2023 2:28:53 PM Referred By: Confirmed By:EZIO THOMPSON MD
[2023-04-25 10:23] VITALS: BP 112/78; PULSE 63; RESP 18; TEMP 36.6; O2SAT 96
[2023-04-25] MEDS: Losartan Potassium 50 MG Tablet PO (10:30)
[2023-04-25] MEDS: Aspirin E.C. 81 MG Tablet PO (10:30)
[2023-04-25] MEDS: TICAGRELOR 90 MG TABLET PO (10:30)
[2023-04-25] MEDS: busPIRone 5 MG Tablet PO (10:30)
--- NOTE | 2023-04-25 11:01 | CL.I_ITS ---
Patient Name: JOVANY MUÑIZ Study Date: 04/24/2023 Performing: Keron Ray MD Ht: 72 inches 182.88 cm : 1965 Wt: 213.19 lbs 96.7 kg Age: 57 Gender: male BSA: 2.19 PROCEDURE(S) PERFORMED IC12-(81837/[id number])CONNIE W/WO PTCA, SINGLE CORONARY ARTERY IC12-([id number])CONNIE W/WO PTCA, SINGLE CORONARY ARTERY CLINICAL PROFILE AND CO-MORBIDITIES Indications: ACS <= 24 hrs Heart Failure: None Stress/Imaging Stress/Image Study Performed: No CAD Presentations: Non-STEMI. Symptom onset Date/Time: 04/23/23 Time Not Available CONCLUSIONS Successful CONNIE to mid LAD and proximal OM1. RECOMMENDATIONS DESCRIPTION OF PROCEDURE The patient arrived to the procedure lab. The risks and benefits of the procedure as well as a full description of our services here and current unavailability of surgical backup were fully explained to the patient and/or their significant other prior to the catheterization. The Timeout was completed, verifying the correct patient and procedure. The patient's procedural site was prepped and draped in the usual fashion. Local anesthetic was given subcutaneously to right radial region with Lidocaine 2% Using a modified Seldinger technique,arterial access was obtained via the right radial artery, a 6Fr sheath was inserted. Left Coronary Artery selective angiography was performed in multiple views using a 5 Fr. 4.0 [place] catheter. Right Coronary Artery selective angiography was then performed in multiple views using a 5 Fr. 4.0 [place] catheter. Left Ventriculography was performed in CHING projection using a 5 Fr. Pigtail catheter. LV to AO pullback pressures were then recorded.The images were reviewed and options discussed. A decision was then made to proceed with an Intervention, IVUS or other adjunct procedure. xb3.0 Guide catheter was inserted and engaged into the LCA. bmw Guide wire was advanced to the LAD. BMW Guide wire was advanced to the LAD. resolute 2x12 Drug Eluting stent was inserted. Drug Eluting stent was advanced across the lesion in the LAD, mid. Angiogram performed pre stent deployment. Angiogram performed post stent deployment. Guide wire was repositioned to the 1st OM 1.5x15 emerge Balloon catheter was inserted. Balloon catheter was advanced across lesion in the first obtuse marginal, proximal. PTCA balloon inflated at 12 atms for 14 secs. PTCA balloon inflated at 12 atms for 4 secs. PTCA balloon inflated at 12 atms for 7 secs. PTCA balloon inflated at 14 atms for 22 secs. PTCA balloon inflated at 12 atms for 5 secs. 2x18 resolute Drug Eluting stent was inserted. Drug Eluting stent was advanced across the lesion in the first obtuse marginal, proximal. Angiogram performed pre stent deployment. Angiogram performed post stent deployment. Angiogram performed post stent deployment. bmw Guide wire was advanced to the Circumflex. Priority One inserted Pass # 1 Priority One Removed Guide wire was repositioned to the 1st OM 2x12 emerge Balloon catheter was advanced across lesion in the first obtuse marginal, proximal. Angiogram performed pre balloon dilatation. The arterial sheath was pulled and a TR Band was applied for hemostasis INTERVENTION INFORMATION LESION SITE: LAD (Mid) Lesion Complexity: High/C, chronic total occlusion: No, lesion at bifurcation: No, thrombus present: No, lesion length: 12 mm, culprit lesion: Yes, Previously treated lesion: No Pre Stenosis: 95 % Pre intervention JENN flow: 3 PROCEDURE: Drug Eluting Stent Post Stenosis: 0 % Post intervention JENN flow: 3 Lesion Devices: [place] .014 190cm BMW [place] Straight Cordis 6 Fr XB3.0 100cm Guide Catheter Medtronic Resolute [place] RX CONNIE 2.0x12 LESION SITE: 1st OM (Proximal) Lesion Complexity: High/C, chronic total occlusion: No, lesion at bifurcation: Yes, thrombus present: No, lesion length: 15 mm, culprit lesion: Yes, Previously treated lesion: No Pre Stenosis: 99 % Pre intervention JENN flow: 2 PROCEDURE: Drug Eluting Stent with pre dilatation. We placed the stent taking care not to come back into the circumflex as the circumflex itself was a larger vessel. At the end of the PCI there appeared to be some haziness in the proximal part of the circumflex in some views. We inserted the guidewire into the circumflex and performed aspiration thrombectomy. We then reentered the OM1 and attempted to post dilate the stent with an NC balloon. The NC balloon did not cross into the OM1. There was excellent angiographic result and we did not pursue further attempts at postdilatation. Post Stenosis: 0 % Post intervention JENN flow: 3 Lesion Devices: [place] .014 190cm BMW [place] Straight Cordis 6 Fr XB3.0 100cm Guide Catheter Florencio Sci EMERGE MR 1.50x15 BALLOON Medtronic Resolute [place] RX CONNIE 2.0x18 Florencio Sci EMERGE MR 2.00x12 BALLOON COMPLICATIONS No Complications PROCEDURE MEDICATIONS Versed 1 mg IV Fentanyl 50 mcg IV Fentanyl 50 mcg IV Oxygen: 2 L/min via nasal cannula Heparin 5000 unit(s) IV 04/24/2023 10:02:23 Heparin 2000 unit(s) IV 04/24/2023 10:37:53 SUMMARY OF HEMODYNAMIC DATA Time AIR REST ECG 09:30:15 AO 133/77 (102) SA 09:51:12 LV 128/0, 8 09:56:12 LV 129/0, 8 09:56:20 LV 125/1, 7 09:56:59 LV 133/3, 11 09:57:07 LVp 131/2, 11 09:57:13 AOp 128/79 (102) 09:57:20 Signed By Keron Ray MD On 04/25/2023 11:01:10 Keron Ray MD
--- NOTE | 2023-04-25 12:03 | DS.PCM_ITS ---
Providers Date of Admission: 04/23/23 Primary Care Physician: Dr. Sergei Henley MD Consultations 04/24/23 02:23 Consult: Cardiology Routine Consulting Provider: Jose Lockwood Reason for Consult: non stemi EMERGENT Consult: No MD Notified: Yes Date Notified: 04/24/23 Time Notified: 02:23 Method of Notification: Text Method of Consult:: In-Person Reason For Visit: CHEST PAIN, TIA Diagnosis Discharge Diagnosis (1) NSTEMI (non-ST elevated myocardial infarction): Status: Acute Code(s): I21.4 - Non-ST elevation (NSTEMI) myocardial infarction Plan: Troponins up to 11,986. ASA, ticagrelor, losartan s/p PCI to high-grade stenosis of LAD. Echo shows and EF of 60% (2) Brain TIA: Status: Acute Code(s): G45.9 - Transient cerebral ischemic attack, unspecified Plan: Suspected Pt had left-sided paresthesias and facial droop Head CT negative. CTA H/N showed 60% carotid stenosis. MRI negative. PT OT ST Continue ASA Plan Chronic conditions: * CAD: known. Previous PCI to OM and LAD. * HTN: continue losartan * ED: event occurred during sexual encounter while taking sildenafil. Medications at Discharge Home Medications aspirin 81 mg tablet,delayed release (Adult Low Dose Aspirin) 81 mg PO QDAY heart health 08/06/17 loratadine 10 mg tablet (Claritin) 10 mg PO QDAY PRN Allergies 08/06/17 nitroglycerin 0.4 mg sublingual tablet (Nitrostat) 0.4 mg sublingual Q5M PRN CHEST PAIN 08/06/17 buspirone 5 mg tablet 5 mg PO BID 04/23/23 losartan 50 mg tablet 50 mg PO .day 04/23/23 sildenafil 100 mg tablet 100 mg PO PRN PRN sexual activity 04/23/23 atorvastatin 80 mg tablet 80 mg PO QHS #30 tabs 04/25/23 ticagrelor 90 mg tablet (Brilinta) 90 mg PO BID #60 tabs 04/25/23 Hospital Course Operations None Procedures 2-D Echocardiogram and Cardiac catheterization Summary of Care Provided Minutes Spent on Discharge: 32 Hospital Course: Patient presents with chest pain as well as left-sided paresthesias and weakness. Left-sided weakness paresthesias resolved. Patient was found to have non-ST ovation myocardial infarction. Patient underwent PCI to high-grade stenosis of the LAD. Echocardiogram showed EF of 60%. Patient was already on aspirin and clopidogrel but will continue with aspirin and be started on ticagrelor as well as high intensity statin with atorvastatin. For left-sided weakness, his work-up was unremarkable. His MRI of the brain was negative. Concerned the patient may have had a TIA but no evidence of that at this time. Patient is otherwise feeling well. The treatment will be overlapped with his myocardial infarction with a dual antiplatelet therapy. Weight / BMI Weight Weight: 96.7 kg Body Mass Index (BMI) 28.9 ABG / Lab / Microbiology Data 04/25/23 06:27 04/25/23 06:27 Laboratory: Laboratory Results - last 24 hr 04/24/23 10:33: Activated Clotting Time 197 H 04/25/23 06:27: WBC 4.7, RBC 4.14 L, Hgb 13.9, Hct 41.3, MCV 99.8 H, MCH 33.6 H, MCHC 33.7, RDW Std Deviation 47.3 H, RDW Coeff of Leticia 12.9, Plt Count 185, MPV 9.5, Sodium 139, Potassium 3.9, Chloride 109 H, Carbon Dioxide 27.0, Anion Gap 3 L, BUN 10, Creatinine 0.98, Estim Creat Clear Calc 89.08, Est GFR (MDRD) Af Amer 100, Est GFR (MDRD) Non-Af 83, BUN/Creatinine Ratio 10.2, Glucose 104, Hemoglobin A1c 5.6, Calcium 8.6, Total Bilirubin 0.40, AST 73 H, ALT 50, Alkaline Phosphatase 61, Total Protein 7.0, Albumin 3.1 L, Globulin 3.9, Albumin/Globulin Ratio 0.8 L Radiography Diagnostic Testing: Radiology Impression Brain MRI 04/24/23 00:08 IMPRESSION: undefined Meaningful Use Info Meaningful Use Diagnoses (Choose all that apply): AMI AMI/Post PCI/Angioplasty Aspirin given w/in 24hrs of arrival?: Yes ASA at discharge?: Yes Antiplatelet Therapy at Discharge:: Yes Statins at discharge?: Yes Taz/ARB at discharge?: Yes Beta Spencer at discharge?: No Reason Beta Spencer not ordered:: Drug Interaction Done w/ Acute VT measure.: Yes Documented LVEF (%): 60 Discharge Plan Admission Admit Date/Time: 04/23/23 22:47 Primary Reason for Your Visit: Myocardial infarction. Attending Provider: Rommel Youssef Primary Care Provider: Sergei Henley Consulting Providers: Jose Lockwood; Ar Torres Discharge Orders/Prescriptions Prescriptions: New atorvastatin 80 mg Tablet 80 mg PO QHS Qty: 30 0RF Brilinta 90 mg Tablet 90 mg PO BID Qty: 60 0RF Continued aspirin [Adult Low Dose Aspirin] 81 mg tablet,delayed release (DR/EC) 81 mg PO QDAY nitroglycerin [Nitrostat] 0.4 mg tablet, sublingual 0.4 mg SUBLINGUAL Q5M PRN (Reason: CHEST PAIN) Patient Comments: chest pain loratadine [Claritin] 10 mg tablet 10 mg PO QDAY PRN (Reason: Allergies) Patient Comments: allergy losartan 50 mg tablet 50 mg PO .day Patient Comments: TAKE 1 TABLET BY MOUTH EVERY DAY buspirone 5 mg tablet 5 mg PO BID Patient Comments: TAKE 1 TABLET BY MOUTH TWICE A DAY Held sildenafil 100 mg tablet 100 mg PO PRN PRN (Reason: sexual activity) Hold Instructions: until cleared by cargiology. Patient Comments: TAKE 1 TABLET BY MOUTH 1 HOUR PRIOR TO DESIRED INTERCOURSE Discontinued clopidogrel 75 mg tablet 75 mg PO QDAY 90 Days Qty: 90 Patient Comments: Referrals / Follow Up: [facility] [Provider Group] - Within 1 Month Sergei Henley MD [Primary Care Provider] - Within 2 Weeks Disposition Disposition (needs filled in before D/C Order can be placed): Home, Self Care Charges/Coding Visit Charges Inpatient E&M: 51812 Disch Hosp >30min
[2023-04-25 13:00] VITALS: BMI 28.9
--- NOTE | 2023-04-25 13:28 | CASEMGMT ---
Patient has order for discharge. Patient will be discharging on Brilinta. RN CM called [facility], copay is $49.72. RN CM in to update patient of copay, savings card provided to patient. Patient denies needs at discharge. Patient had no further questions or concerns.
== END 2023-04-25 14:51 | disposition home or self-care (01) | DRG 247 ==
LOC: ED 22:32 → PCU 23:10
PROVIDERS: Specialist; Admitting Provider Hospitalist; Emergency Provider Emergency Medicine; PCP Family Medicine
DX: I21.4 Non-ST elevation (NSTEMI) myocardial infarction (principal); I10 Essential (primary) hypertension; I25.10 Atherosclerotic heart disease of native coronary artery without angina pectoris; I25.2 Old myocardial infarction; E78.00 Pure hypercholesterolemia, unspecified; N52.2 Drug-induced erectile dysfunction; Z95.5 Presence of coronary angioplasty implant and graft; Z79.02 Long term (current) use of antithrombotics/antiplatelets; Z79.82 Long term (current) use of aspirin; Z79.899 Other long term (current) drug therapy; Z87.891 Personal history of nicotine dependence; R00.1 Bradycardia, unspecified; R53.1 Weakness; R29.810 Facial weakness
CPT/HCPCS: 36415; 70450; 70496; 70498; 70551; 71045; 80048; 80053; 80061; 83036; 84484; 85025; 85027; 85347; 85610; 85730; 92928; 93005; 93306; 93458; 96361; 96365; 96366; 96375; 96376; 99152; 99153; 99221; 99285; C1757; J7030; J7040; Q9967; A4216; C1769; C1887; C1894; C9600; G0378; J1327; J2405

== ENCOUNTER → 2023-06-02 | Outpatient (CLI) | payer OTHER, SELFPAY ==
[2023-06-02 10:17] LABS: Erythrocyte Sedimentation Rate 8 mm/hr (0-20)
[2023-06-02 10:20] LABS: Hematocrit 42.4 % (40-54); Hemoglobin 13.7 g/dL (13.0-16.5); Mean Corp Hgb Conc 32.3 g/dL (32-36); Mean Corpuscular Hgb 32.5 pg (27.0-32.0); Mean Corpuscular Volume 100.7 fL (80-94); Mean Platelet Vol. 9.8 fl (6.2-12.0); Platelet Count 261 K/mm3 (150-450); RBC Distribution Width CV 12.8 % (11.6-14.6); RBC Distribution Width SD 47.6 fl (35.1-43.9); Red Blood Count 4.21 M/mm3 (4.6-6.2); White Blood Count 6.3 K/mm3 (4.4-11.0)
[2023-06-02 10:42] LABS: Vitamin B12 309 pg/mL (211-911); Vitamin D,25 Hydroxy 34.5 ng/mL
[2023-06-02 11:11] LABS: ALB/GLOB Ratio 0.8 RATIO (0.9-2.4); AST(SGOT) 24 U/L (15-37); Alanine Aminotransfer ALT/SGPT 35 U/L (16-61); Albumin, Serum 3.4 g/dL (3.2-5.0); Alkaline Phosphatase 72 U/L (45-117); Anion Gap 4 (5-15); BUN 14 mg/dL (7-18); BUN/Creat Ratio 14.4 RATIO (10-20); Calcium,Total 8.7 mg/dL (8.5-10.1); Chloride 109 mmol/L (98-107); Creatinine, Serum 0.98 mg/dL (0.70-1.30); EST Glomerular Filtration Rate 84 mL/min (>60); Est Glom Filt Rate - Afr Amer 101 mL/min (>60); Ferritin 285 ng/mL (26-388); Globulin 4.2 g/dL (2.2-4.2); Glucose 103 mg/dL (74-106); Iron 101 ug/dL (65-175); Magnesium 2.6 mg/dL (1.6-2.6); Potassium 4.6 mmol/L (3.5-5.1); Protein, Total 7.6 g/dL (6.4-8.2); Sodium Level 141 mmol/L (136-145); Thyroid Stim Hormone (TSH) 1.26 uIU/mL (0.358-3.74)
== END | disposition home or self-care (01) ==
LOC: MFPLAB 08:24
PROVIDERS: PCP Family Medicine; Visit Provider Family Medicine
DX: M79.606 Pain in leg, unspecified (principal)
CPT/HCPCS: 36415; 80053; 82306; 82607; 82728; 83540; 83735; 84443; 85027; 85652

== ENCOUNTER 2023-06-14 16:35 | Observation (INO) | payer OTHER, SELFPAY ==
[2023-06-14 16:36] VITALS: BP 133/96; PULSE 100; RESP 20; TEMP 36.4; O2SAT 98; BMI 28.8
--- NOTE | 2023-06-14 16:48 | CT_ITS ---
STUDY: CT ABDOMEN AND PELVIS WITH CONTRAST REASON FOR EXAM: Male, 57 years old. Abdominal pain RADIATION DOSAGE (If Supplied By Facility): CTDIvol = ( 18.55 ) mGy, DLP = ( 1142.51 ) mGycm TECHNIQUE: Transaxial images were obtained from the dome of the diaphragm to the symphysis pubis without oral contrast. IV 100mL Isovue-370 was administered. Sagittal and coronal images were reconstructed. Individualized dose optimization techniques were used for this CT. COMPARISON: None. FINDINGS: Some dependent bibasilar atelectasis. The visualized portions of the heart are within normal limits. Normal liver. Normal gallbladder and extrahepatic biliary system. Normal spleen. Normal pancreas. Normal bilateral adrenal glands. Normal right kidney. Normal left kidney. Normal visualized stomach. Normal small intestine. There is diverticulosis, with thickening of the colon wall, and pericolonic inflammation changes consistent with acute diverticulitis. No loculated fluid collection to stress abscess. No pneumoperitoneum to suggest perforation. There is non-visualization of the appendix. Normal abdominal aorta. Normal inferior vena cava. Normal retroperitoneum. Normal urinary bladder. Normal abdominal wall. Normal osseous structures. CT/Abdomen/Pelvis W IV Cont ONLY IMPRESSION: Sigmoid diverticulitis without abscess or perforation. Electronically Signed: Kris White MD at 17:53 EDT ,
--- NOTE | 2023-06-14 16:48 | ED.VIS.GI ---
HPI HPI - GI History of Present Illness Chief Complaint: Abd Pain Narrative Narrative: 57-year-old male past medical history of hyperlipidemia, hypertension, coronary artery disease presents with abdominal pain that he has had since yesterday morning. He relates history that he has an intolerance to statins. Few months ago he had an [place]/stent placement, and was restarted on a statin. He was having intolerance to it with abdominal pain and leg cramping. He did not take it for 2 weeks and they started him on a new statin on Friday, approximately 5 days ago. He states he started the new statin, then began having the leg cramps and abdominal pain. This was early Friday morning. He stopped taking it, but continued to have pain and states it is worse even today. It started in the right lower quadrant and now has radiated to diffuse abdominal pain. He states his abdomen is also distended. He denies any previous past abdominal surgeries. No nausea or vomiting. He states he has not had a bowel movement since yesterday and he is not passing gas. [facility] Medical History Atherosclerotic heart disease of [place] coronary artery without angina pectoris (04/25/23) Essential hypertension History of coronary artery disease HLD (hyperlipidemia) Old myocardial infarction Presence of stent in coronary artery (04/25/23) Home Medications aspirin 81 mg tablet,delayed release (Adult Low Dose Aspirin) 81 mg PO QDAY [facility] 08/06/17 [History Last Taken 10/30/21] buspirone 5 mg tablet 5 mg PO BID 04/23/23 [History Last Taken Unknown] coenzyme Q10 100 mg capsule 100 mg PO DAILY 05/05/23 [History Last Taken Unknown] cetirizine 10 mg tablet 10 mg PO DAILY PRN 05/20/23 [History Last Taken Unknown] clopidogrel 75 mg tablet (Plavix) 75 mg PO QDAY #93 tabs 05/20/23 [Rx Last Taken Unknown] losartan 50 mg tablet 50 mg PO DAILY 05/20/23 [History Last Taken Unknown] evolocumab 140 mg/mL subcutaneous pen injector (Repatha SureLeonardick) 140 mg subcut Q2W #2 mL 06/13/23 [Rx Last Taken Unknown] nitroglycerin 0.4 mg sublingual tablet (Nitrostat) 0.4 mg sublingual Q5-15M PRN CHEST PAIN #25 tabs 06/13/23 [Rx Last Taken Unknown] Allergy/AdvReac Type Severity Reaction Status Date / Time No Known Allergies Allergy Verified 06/14/23 16:36 Family History Grandfather , age 76 CVA (cerebral vascular accident) Surgical History History of left heart catheterization (~12/2010) Presence of coronary angioplasty implant and graft (~06/19/10) Social History Smoking Status: Former smoker how long ago did patient quit smokin alcohol intake: current alcohol intake frequency: 0-2 drinks per day Alcohol type: beer substance use type: does not use caffeine: Yes Type: coffee Number of servings: 2 what type of physical activity do you participate in: none seatbelt use: sometimes do you feel safe at home: Yes ROS ROS ED ROS Narrative Constitutional: No fever, no chills. HEENT: No sore throat. No neck pain. No loss of vision. No rhinorrhea. Cardiovascular: No chest pain. No palpitations. No pedal edema. Respiratory: No cough, no shortness of breath. Abdominal: Positive right lower quadrant to diffuse abdominal pain. No nausea. No vomiting. Positive abdominal distention. Lack of flatulence. Genitourinary: No dysuria. No hematuria. Musculoskeletal: No myalgias. No arthralgias. Neurologic: No headaches. No dizziness. No lightheadedness. Skin: No rash. No change in color. Psychiatric: No depression. No anxiety. EXAM Physical Exam Narrative Exam Narrative: Afebrile. Vital signs noted. HEENT: Normocephalic. Atraumatic. PERRL, EOMI. Neck soft and supple. No point tenderness or step off. Cardiovascular: Regular rate and rhythm. No murmurs, rubs, or gallops appreciated. Respiratory: No tachypnea. Lungs clear to auscultation bilaterally. Gastrointestinal: Abdomen soft, diffuse tenderness, concentrated in right lower quadrant with normoactive bowel sounds. No rebound or guarding. Mild abdominal distention. Neurological: Awake. Alert. Nonfocal, nonlateralizing. Skin: No rash. Normal color. No pallor. Musculoskeletal: No pedal edema. Full range of motion extremities. Const Vital Signs: 06/14/23 16:36 06/14/23 17:16 Temperature 97.5 F L Temperature Source Temporal Pulse Rate 100 89 Respiratory Rate 20 H 18 Blood Pressure 133/96 H 131/93 H Blood Pressure Mean 108 105 Pulse Ox 98 96 Oxygen Delivery Method Room Air Room Air MDM MDM MDM Narrative Medical decision making narrative: In the differential diagnosis is bowel obstruction versus appendicitis versus diverticulitis/colitis. Patient was administered morphine and ondansetron for analgesia and bolused normal saline. I will obtain a CBC, CMP, and lipase along with UA. I do feel that CT imaging is indicated with IV contrast. I reviewed his laboratory work and he has normal white count of 8.9, hemoglobin 14.1, hematocrit 43.3, platelet count 251. Review of his CMP shows chloride slightly elevated at 108, glucose appropriately elevated at 119 with an anion gap low at 4, LFTs are grossly unremarkable with a normal AST and ALT. His lipase is slightly elevated to 35. He states that he drinks 2 beers daily but none yesterday. I do not feel he has a full-blown pancreatitis. I reviewed the CT report of the CT with IV contrast of the abdomen and pelvis which shows uncomplicated sigmoid diverticulitis without abscess or perforation. He was started on IV Cipro and Flagyl as he states that the initial dose of morphine did nothing for his pain. He was given an additional dose and reassessed. He states he is having intractable pain and cannot go through another night like he did last night of this type of pain. He was given 1.5 of Dilaudid intravenously. I discussed patient with Dr. Ligia Ramírez for assignment to observation on the medical surgical floor. Patient is in stable condition. History & Record Review Discussion w/independent historian: Patient Lab Data Attestation: I reviewed the patient's lab results. Labs: Laboratory Results - last 24 hr 06/14/23 17:01 WBC 8.9 RBC 4.32 L Hgb 14.1 Hct 43.3 MCV 100.2 H MCH 32.6 H MCHC 32.6 RDW Std Deviation 48.7 H RDW Coeff of Leticia 13.1 Plt Count 251 MPV 9.4 Immature Gran % (Auto) 0.500 Neut % (Auto) 83.8 H Lymph % (Auto) 10.2 L [place] % (Auto) 2.7 Eos % (Auto) 2.5 Baso % (Auto) 0.3 Absolute Neuts (auto) 7.4 Absolute Lymphs (auto) 0.90 Nucleated RBC % 0 Sodium 139 Potassium 4.4 Chloride 108 H Carbon Dioxide 27.0 Anion Gap 4 L BUN 13 Creatinine 1.09 Estim Creat Clear Calc 80.09 Est GFR (MDRD) Af Amer 89 Est GFR (MDRD) Non-Af 73 BUN/Creatinine Ratio 11.9 Glucose 119 H Calcium 9.0 Total Bilirubin 0.60 AST 18 ALT 30 Alkaline Phosphatase 72 Total Protein 8.0 Albumin 3.2 Globulin 4.8 H Albumin/Globulin Ratio 0.7 L Lipase 235 H Urine Color Yellow Urine Clarity Clear Urine pH 7.0 Ur Specific [place] 1.010 Urine Protein Negative Urine Glucose (UA) Normal Urine Ketones Negative Urine Occult Blood Negative Urine Nitrite Negative Urine Bilirubin Negative Urine Urobilinogen Normal Ur Leukocyte Esterase Negative Urine RBC 0 SEEN Urine WBC 0 SEEN Ur Squamous Epith Cells 0 SEEN Urine Bacteria 0 SEEN Urine Mucus 0 SEEN Radiography Diagnostic Testing: Clinical Impression(s) from Imaging Studies Abdomen/Pelvis CT 06/14/23 16:48 IMPRESSION: Sigmoid diverticulitis without abscess or perforation. Electronically Signed: Kris White MD at 17:53 EDT , Management Discussion w/another healthcare provider: Hospitalist Discharge Plan Dx/Rx/DC Orders Clinical Impression: Intractable abdominal pain, Sigmoid diverticulitis Disposition Disposition: Acute Care [facility]
[2023-06-14] MEDS: Ondansetron 4 MG/2 ML Vial IV (17:05)
[2023-06-14] MEDS: Morphine 4 MG/ML Syringe IV ×2 (17:05→18:27)
[2023-06-14 17:06] LABS: Bacteria 0 SEEN /hpf (None Seen); Mucous, Urine 0 SEEN /hpf (<or=2+); Red Blood Cells-Urine 0 SEEN /hpf (0-5); Squamous Epithelial Cells - UA 0 SEEN /hpf (0-5); White Blood Cells 0 SEEN /hpf (0-5)
[2023-06-14 17:09] LABS: Absolute Neutrophil Count 7.4 X10^3/uL (2.0-7.7); Basophil# 0.03 X10^3/uL; Basophil% 0.3 % (0-1); Eosinophil# 0.22 X10^3/uL; Eosinophils% 2.5 % (0-5); Hematocrit 43.3 % (40-54); Hemoglobin 14.1 g/dL (13.0-16.5); Lymphocyte % 10.2 % (19-41); Mean Corp Hgb Conc 32.6 g/dL (32-36); Mean Corpuscular Hgb 32.6 pg (27.0-32.0); Mean Corpuscular Volume 100.2 fL (80-94); Mean Platelet Vol. 9.4 fl (6.2-12.0); Monocyte# 0.24 X10^3/uL; Monocyte% 2.7 % (0-10); NRBC Flagged by Analyzer 0 % (0-5); Neutrophil # 7.42 X10^3/uL (2.7-7.7); Neutrophil % 83.8 % (47-70); Platelet Count 251 K/mm3 (150-450); RBC Distribution Width CV 13.1 % (11.6-14.6); RBC Distribution Width SD 48.7 fl (35.1-43.9); Red Blood Count 4.32 M/mm3 (4.6-6.2); White Blood Count 8.9 K/mm3 (4.4-11.0)
[2023-06-14 17:10] LABS: Color, Urine Yellow (Yellow); Glucose, Dipstick Normal (Normal); Ketone-Dipstick Negative (Negative); Leukocyte Esterase-Dipstick Negative /ul (Negative); Nitrite-Dipstick Negative (Negative); Occult Blood-Urine Negative /ul (Negative); Protein-Dipstick Negative (Negative); Urine Bilirubin Dipstick Negative (Negative); Urine Clarity Clear (Clear); Urine Urobilinogen Normal (Normal)
[2023-06-14 17:16] VITALS: BP 131/93; PULSE 89; RESP 18; O2SAT 96
[2023-06-14 17:26] LABS: ALB/GLOB Ratio 0.7 RATIO (0.9-2.4); AST(SGOT) 18 U/L (15-37); Alanine Aminotransfer ALT/SGPT 30 U/L (16-61); Albumin, Serum 3.2 g/dL (3.2-5.0); Alkaline Phosphatase 72 U/L (45-117); Anion Gap 4 (5-15); BUN 13 mg/dL (7-18); BUN/Creat Ratio 11.9 RATIO (10-20); Chloride 108 mmol/L (98-107); Creatinine, Serum 1.09 mg/dL (0.70-1.30); EST Glomerular Filtration Rate 73 mL/min (>60); Est Glom Filt Rate - Afr Amer 89 mL/min (>60); Estimated Creatinine Clearance 80.09 ml/min; Globulin 4.8 g/dL (2.2-4.2); Glucose 119 mg/dL (74-106); Lipase 235 U/L (13-75); Potassium 4.4 mmol/L (3.5-5.1); Sodium Level 139 mmol/L (136-145)
[2023-06-14] MEDS: 0.9% Normal Saline (1000mL) 1,000 ML 1000 ML IV (17:30)
[2023-06-14] MEDS: Ciprofloxacin 400 MG/200 ML BAG 200 MG IV (18:27)
--- NOTE | 2023-06-14 19:31 | PCM.HP.STD ---
HPI - General General Date of Admission: 06/14/23 Date of Service: 06/14/23 Chief Complaint: Abdominal pain HPI Narrative JOVANY MUÑIZ, is a 57-year-old male history of hypertension, coronary artery disease with stent placement 2 months ago who presented to [facility] 06/14/2023 with abdominal pain x1 day. Due to his coronary artery disease he had previously been on a statin but due to abdominal pain and leg cramping he was off it for 2 weeks and they tried a new statin 5 days ago but he had leg cramping and abdominal pain again which he stopped taking but pain is persisted, its primarily right lower quadrant but is somewhat generalized and he feels he has some abdominal distention as well. Not passing gas and no bowel movement since yesterday. CT abdomen obtained and showed sigmoid diverticulitis without perforation. Patient required IV pain medication and was having intractable pain and was deemed patient cannot be discharged home due to need for pain control, hospitalist contacted for admission. Patient evaluated with with at bedside. Reports history as above, reports he is feeling quite bloated presently and last bowel movement was yesterday morning, chronically has some loose stools but nothing different than usual, not feeling nauseous or vomiting at this time, primarily just has some generalized abdominal pain worse in the lower quadrants. Has been drinking water but has not been eating much food over this past day as he feels this worsens his symptoms. Had sweats last night but does not note of any fever. Denies any substance use, reports he drinks 2 beers daily and when clarifying he drinks 2 tall beers daily but patient not very forthcoming with drinking history with in room but denies any history of withdrawal and last up drinking for couple days when he had his heart attack in April and denied any withdrawal symptoms at that time. [facility] Medical History Atherosclerotic heart disease of [place] coronary artery without angina pectoris (04/25/23) Essential hypertension History of coronary artery disease HLD (hyperlipidemia) Old myocardial infarction Presence of stent in coronary artery (04/25/23) Home Medications aspirin 81 mg tablet,delayed release (Adult Low Dose Aspirin) 81 mg PO QDAY [employer] [facility] 08/06/17 [History Last Taken 10/30/21] buspirone 5 mg tablet 5 mg PO BID 04/23/23 [History Last Taken Unknown] coenzyme Q10 100 mg capsule 100 mg PO DAILY 05/05/23 [History Last Taken Unknown] cetirizine 10 mg tablet 10 mg PO DAILY PRN 05/20/23 [History Last Taken Unknown] clopidogrel 75 mg tablet (Plavix) 75 mg PO QDAY #93 tabs 05/20/23 [Rx Last Taken Unknown] losartan 50 mg tablet 50 mg PO DAILY 05/20/23 [History Last Taken Unknown] evolocumab 140 mg/mL subcutaneous pen injector (Repatha SureClick) 140 mg subcut Q2W #2 mL 06/13/23 [Rx Last Taken Unknown] nitroglycerin 0.4 mg sublingual tablet (Nitrostat) 0.4 mg sublingual Q5-15M PRN CHEST PAIN #25 tabs 06/13/23 [Rx Last Taken Unknown] Allergy/AdvReac Type Severity Reaction Status Date / Time No Known Allergies Allergy Verified 06/14/23 16:36 Family History Grandfather , age 76 CVA (cerebral vascular accident) Surgical History History of left heart catheterization (~12/2010) Presence of coronary angioplasty implant and graft (~06/19/10) Social History Smoking Status: Former smoker how long ago did patient quit smokin alcohol intake: current alcohol intake frequency: 0-2 drinks per day Alcohol type: beer substance use type: does not use caffeine: Yes Type: coffee Number of servings: 2 what type of physical activity do you participate in: none seatbelt use: sometimes do you feel safe at home: Yes ROS ROS Narrative General: Denies fever/chills but had some sweats yesterday HENT: Denies headache, denies stuffy nose, denies sore throat EYES: Denies changes in vision Resp: Denies cough, denies shortness of breath Cardiac: Denies chest pain GI: Diffuse abdominal pain worse in lower quadrants, denies nausea/vomiting : Denies changes in urination Extremity: Denies swelling MSK: Denies weakness Neuro: Denies any numbness/tingling Heme: Denies any bleeding or bruising Skin: Denies rashes Psychiatric: No complaints voiced Vital Signs Vital Signs Vital Signs: 06/14/23 16:36 06/14/23 17:16 Temperature 97.5 F L Temperature Source Temporal Pulse Rate 100 89 Respiratory Rate 20 H 18 Blood Pressure 133/96 H 131/93 H Blood Pressure Mean 108 105 Pulse Ox 98 96 Oxygen Delivery Method Room Air Room Air Weight Weight: 96.343 kg Body Mass Index (BMI) 28.8 Physical Exam Narrative General: Alert, oriented, no apparent distress HEENT: Atraumatic, normocephalic Eyes: Anicteric, normal conjunctiva, extraocular movements grossly intact Neck: Supple Respiratory: Clear to auscultation bilaterally, normal respiratory effort Cardiovascular: Regular rate and rhythm GI: Somewhat distended, tender primarily in lower quadrants without rebound or rigidity, some voluntary guarding with hands but did not demonstrate this when pushing with stethoscope Extremities: No edema Musculoskeletal: Moving all extremities Neuro: No overt focal neurological deficits Skin: No rashes appreciated Psych: Cooperative Results Lab / Micro Data 06/14/23 17:01 06/14/23 17:01 Labs: Laboratory Results - last 24 hr 06/14/23 17:01: WBC 8.9, RBC 4.32 L, Hgb 14.1, Hct 43.3, MCV 100.2 H, MCH 32.6 H, MCHC 32.6, RDW Std Deviation 48.7 H, RDW Coeff of Leticia 13.1, Plt Count 251, MPV 9.4, Immature Gran % (Auto) 0.500, Neut % (Auto) 83.8 H, Lymph % (Auto) 10.2 L, [place] % (Auto) 2.7, Eos % (Auto) 2.5, Baso % (Auto) 0.3, Absolute Neuts (auto) 7.4, Absolute Lymphs (auto) 0.90, Nucleated RBC % 0, Sodium 139, Potassium 4.4, Chloride 108 H, Carbon Dioxide 27.0, Anion Gap 4 L, BUN 13, Creatinine 1.09, Estim Creat Clear Calc 80.09, Est GFR (MDRD) Af Amer 89, Est GFR (MDRD) Non-Af 73, BUN/Creatinine Ratio 11.9, Glucose 119 H, Calcium 9.0, Total Bilirubin 0.60, AST 18, ALT 30, Alkaline Phosphatase 72, Total Protein 8.0, Albumin 3.2, Globulin 4.8 H, Albumin/Globulin Ratio 0.7 L, Lipase 235 H, Urine Color Yellow, Urine Clarity Clear, Urine pH 7.0, Ur Specific [place] 1.010, Urine Protein Negative, Urine Glucose (UA) Normal, Urine Ketones Negative, Urine Occult Blood Negative, Urine Nitrite Negative, Urine Bilirubin Negative, Urine Urobilinogen Normal, Ur Leukocyte Esterase Negative, Urine RBC 0 SEEN, Urine WBC 0 SEEN, Ur Squamous Epith Cells 0 SEEN, Urine Bacteria 0 SEEN, Urine Mucus 0 SEEN Radiology Impression Abdomen/Pelvis CT 06/14/23 16:48 IMPRESSION: Sigmoid diverticulitis without abscess or perforation. Electronically Signed: Kris White MD at 17:53 EDT , Assessment & Plan Assessment/Plan (1) Intractable abdominal pain: (2) Sigmoid diverticulitis: (3) Presence of stent in coronary artery: (4) Essential hypertension: PLAN: Plan #Abdominal pain secondary to sigmoid diverticulitis -CT abdomen demonstrated sigmoid diverticulitis -Patient with intractable pain necessitating IV pain medication so patient unable to be discharged from ED -Clear liquid diet, advance diet as tolerated, pain control -IV fluids -Zosyn, avoiding Cipro/Flagyl combination given his alcohol use and suspect poor outcomes versus nonadherence of discharged on Flagyl -Lipase is slightly elevated however symptoms, exam, imaging consistent with diverticulitis and not pancreatitis #coronary artery disease with stent 04/25/2023 -Patient on aspirin and Plavix at home -Has intolerance to statin #Alcohol use -Not very forthcoming with drinking history with in room but drinks 2 tall beers a day -Denies any history of significant withdrawal but again unclear if there is some underestimating of drinking and symptoms -CIWA monitoring with as needed Ativan coverage -Do not think patient needs started on phenobarb taper at this time #Hypertension -On home losartan #DVT ppx: Lovenox subcu Meliza Ramírez MD Time spent in the patient's overall evaluation,decision-making process, review of diagnostic data, adjustment of management, discussion with other providers, nursing nursing and ancillary staff involved in patient's care documentation, 56 minutes Charges/Coding Visit Charges Inpatient E&M: 52291 Init Hosp L2
[2023-06-14] MEDS: HYDROmorphone 0.5 MG/0.5 ML SYRINGE IV (19:51)
[2023-06-14] MEDS: metroNIDAZOLE 500 MG/100 ML BAG 100 MG IV (20:15)
[2023-06-14 20:16] VITALS: BP 137/86; PULSE 95; RESP 16; O2SAT 94
[2023-06-14 21:09] VITALS: BP 152/100; PULSE 88; RESP 22; TEMP 36.9; O2SAT 93
[2023-06-14 21:15] VITALS: BMI 29.0
[2023-06-14 21:28] VITALS: BP 127/86; PULSE 88; RESP 18; TEMP 36.7; O2SAT 95
[2023-06-14] MEDS: oxyCODONE 5 MG Tablet PO (21:39)
[2023-06-14] MEDS: Acetaminophen 325 MG Tablet 650 MG PO (21:39)
[2023-06-14] MEDS: 0.9% Normal Saline (1000mL) 1,000 ML 75 ML IV (21:39)
[2023-06-14] MEDS: Piperacil/Tazobactam 3.375 GM in 0.9% Normal Saline (50mL MB+) 50 ML IV (23:33)
[2023-06-14] MEDS: busPIRone 5 MG Tablet PO (23:35)
[2023-06-15] MEDS: oxyCODONE 5 MG Tablet PO (01:05)
[2023-06-15] MEDS: Acetaminophen 325 MG Tablet 650 MG PO (03:21)
[2023-06-15 03:27] VITALS: BP 128/89; PULSE 82; RESP 18; TEMP 36.6; O2SAT 99
[2023-06-15] MEDS: Morphine 2 MG/ML Syringe IV (03:30)
[2023-06-15] MEDS: Piperacil/Tazobactam 3.375 GM in 0.9% Normal Saline (50mL MB+) 50 ML IV (05:27)
[2023-06-15] MEDS: Ketorolac 15 MG/ML Vial IV (05:29)
[2023-06-15 07:26] VITALS: BP 119/83; PULSE 80; RESP 16; TEMP 36.6; O2SAT 99
--- NOTE | 2023-06-15 07:33 | PN.HOSP_ITS ---
Subjective Subjective Feeling better. Tolerated full liquid diet. Still with abdominal pain, but much better. Objective Data Objective Data Vital Signs: Vital Signs Temp Pulse Resp BP Pulse Ox O2 Del Method 36.6 C 80 16 119/83 H 99 Room Air 06/15/23 07:26 06/15/23 07:26 06/15/23 07:26 06/15/23 07:26 06/15/23 07:26 06/15/23 07:26 Oxygen Delivery Method Room Air Weight: 97.1 kg Body Mass Index (BMI) 29.0 Intake & Output: Intake and Output for Last 24 Hours 06/13/23 06/14/23 06/15/23 23:59 23:59 22:59 Intake Total 1900 / 1900 650 / 650 Balance 1900 / 1900 650 / 650 Lab / Micro Data 06/15/23 05:45 06/15/23 05:45 Labs: Laboratory Results - last 24 hr 06/14/23 17:01: WBC 8.9, RBC 4.32 L, Hgb 14.1, Hct 43.3, MCV 100.2 H, MCH 32.6 H , MCHC 32.6, RDW Std Deviation 48.7 H, RDW Coeff of [place] 13.1, Plt Count 251, MPV 9.4, Immature Gran % (Auto) 0.500, Neut % (Auto) 83.8 H, Lymph % (Auto) 10.2 L, [place] % (Auto) 2.7, Eos % (Auto) 2.5, Baso % (Auto) 0.3, Absolute Neuts (auto) 7.4, Absolute Lymphs (auto) 0.90, Nucleated RBC % 0, Sodium 139, Potassium 4.4, Chloride 108 H, Carbon Dioxide 27.0, Anion Gap 4 L, BUN 13, Creatinine 1.09, Estim Creat Clear Calc 80.09, Est GFR (MDRD) Af Amer 89, Est GFR (MDRD) Non-Af 73, BUN/Creatinine Ratio 11.9, Glucose 119 H, Calcium 9.0, Total Bilirubin 0.60, AST 18, ALT 30, Alkaline Phosphatase 72, Total Protein 8.0, Albumin 3.2, Globulin 4.8 H, Albumin/Globulin Ratio 0.7 L, Lipase 235 H, Urine Color Yellow, Urine Clarity Clear, Urine pH 7.0, Ur Specific [place] 1.010, Urine Protein Negative, Urine Glucose (UA) Normal, Urine Ketones Negative, Urine Occult Blood Negative, Urine Nitrite Negative, Urine Bilirubin Negative, Urine Urobilinogen Normal, Ur Leukocyte Esterase Negative, Urine RBC 0 SEEN, Urine WBC 0 SEEN, Ur Squamous Epith Cells 0 SEEN, Urine Bacteria 0 SEEN, Urine Mucus 0 SEEN Radiography Diagnostic Testing: Radiology Impression Abdomen/Pelvis CT 06/14/23 16:48 IMPRESSION: Sigmoid diverticulitis without abscess or perforation. Electronically Signed: Kris White MD at 17:53 EDT , Physical Exam Const alert and no apparent distress GI GI Narrative: distended, not taut. RLQ abdominal pain. Assessment & Plan Assessment/Plan (1) Sigmoid diverticulitis: PLAN: Abdominal pain secondary to sigmoid diverticulitis CT abdomen demonstrated sigmoid diverticulitis Patient with intractable pain necessitating IV pain medication so patient unable to be discharged from ED Full liquid diet, advance diet as tolerated, pain control IV fluids Zosyn, avoiding Cipro/Flagyl combination given his alcohol use and suspect poor outcomes versus nonadherence of discharged on Flagyl Lipase is slightly elevated however symptoms, exam, imaging consistent with diverticulitis and not pancreatitis Tolerated FLD. Feeling better. DC with augmentin. PLAN: Plan Chronic conditions: * coronary artery disease with stent 04/25/2023-Patient on aspirin and Plavix at home-Has intolerance to statin * Recent suspected TIA: ASA and clopidogrel * Alcohol use-Not very forthcoming with drinking history with in room but drinks 2 tall beers a day-Denies any history of significant withdrawal but again unclear if there is some underestimating of drinking and symptoms-CIWA monitoring with as needed Ativan coverage-Do not think patient needs started on phenobarb taper at this time * Hypertension-On home losartan #DVT ppx: Lovenox subcu
[2023-06-15 08:00] LABS: Absolute Lymphocyte Count 0.73 X10^3/uL (0.83-4.51); Absolute Neutrophil Count 5.7 X10^3/uL (2.0-7.7); Basophil# 0.02 X10^3/uL; Basophil% 0.3 % (0-1); Eosinophil# 0.18 X10^3/uL; Eosinophils% 2.6 % (0-5); Hematocrit 36.5 % (40-54); Hemoglobin 11.7 g/dL (13.0-16.5); Lymphocyte # 0.73 X10^3/ul (0.83-4.51); Lymphocyte % 10.5 % (19-41); Mean Corp Hgb Conc 32.1 g/dL (32-36); Mean Corpuscular Hgb 32.5 pg (27.0-32.0); Mean Corpuscular Volume 101.4 fL (80-94); Mean Platelet Vol. 9.9 fl (6.2-12.0); Monocyte# 0.32 X10^3/uL; Monocyte% 4.6 % (0-10); NRBC Flagged by Analyzer 0 % (0-5); Neutrophil # 5.69 X10^3/uL (2.7-7.7); Neutrophil % 81.6 % (47-70); Platelet Count 205 K/mm3 (150-450); RBC Distribution Width CV 13.4 % (11.6-14.6); RBC Distribution Width SD 50.3 fl (35.1-43.9)
[2023-06-15 08:38] LABS: ALB/GLOB Ratio 0.6 RATIO (0.9-2.4); AST(SGOT) 12 U/L (15-37); Alanine Aminotransfer ALT/SGPT 22 U/L (16-61); Albumin, Serum 2.5 g/dL (3.2-5.0); Alkaline Phosphatase 61 U/L (45-117); Anion Gap 7 (5-15); BUN 9 mg/dL (7-18); BUN/Creat Ratio 11.1 RATIO (10-20); Calcium,Total 7.9 mg/dL (8.5-10.1); Chloride 109 mmol/L (98-107); Creatinine, Serum 0.81 mg/dL (0.70-1.30); EST Glomerular Filtration Rate 103 mL/min (>60); Est Glom Filt Rate - Afr Amer 124 mL/min (>60); Estimated Creatinine Clearance 107.78 ml/min; Globulin 4.3 g/dL (2.2-4.2); Glucose 93 mg/dL (74-106); Potassium 3.6 mmol/L (3.5-5.1); Protein, Total 6.8 g/dL (6.4-8.2); Sodium Level 138 mmol/L (136-145)
--- NOTE | 2023-06-15 10:24 | DS.PCM_ITS ---
Providers Date of Admission: 06/14/23 Primary Care Physician: Dr. Sergei Henley MD Reason For Visit: DIVERTICULITIS Diagnosis Discharge Diagnosis (1) Sigmoid diverticulitis: Status: Acute Code(s): K57.32 - Diverticulitis of large intestine without perforation or abscess without bleeding Plan: Abdominal pain secondary to sigmoid diverticulitis CT abdomen demonstrated sigmoid diverticulitis Patient with intractable pain necessitating IV pain medication so patient unable to be discharged from ED Full liquid diet, advance diet as tolerated, pain control IV fluids Zosyn, avoiding Cipro/Flagyl combination given his alcohol use and suspect poor outcomes versus nonadherence of discharged on Flagyl Lipase is slightly elevated however symptoms, exam, imaging consistent with diverticulitis and not pancreatitis Tolerated FLD. Feeling better. DC with augmentin. Plan Chronic conditions: * coronary artery disease with stent 04/25/2023-Patient on aspirin and Plavix at home-Has intolerance to statin * Recent suspected TIA: ASA and clopidogrel * Alcohol use-Not very forthcoming with drinking history with in room but drinks 2 tall beers a day-Denies any history of significant withdrawal but again unclear if there is some underestimating of drinking and symptoms-CIWA monitoring with as needed Ativan coverage-Do not think patient needs started on phenobarb taper at this time * Hypertension-On home losartan #DVT ppx: Lovenox subcu Medications at Discharge Home Medications aspirin 81 mg tablet,delayed release (Adult Low Dose Aspirin) 81 mg PO QDAY [facility] 08/06/17 buspirone 5 mg tablet 5 mg PO BID 04/23/23 coenzyme Q10 100 mg capsule 100 mg PO DAILY 05/05/23 cetirizine 10 mg tablet 10 mg PO DAILY PRN allergy symptoms 05/20/23 clopidogrel 75 mg tablet (Plavix) 75 mg PO QDAY #93 tabs 05/20/23 losartan 50 mg tablet 50 mg PO DAILY 05/20/23 evolocumab 140 mg/mL subcutaneous pen injector (Repatha SureClick) 140 mg subcut Q2W #2 mL 06/13/23 nitroglycerin 0.4 mg sublingual tablet (Nitrostat) 0.4 mg sublingual Q5-15M PRN CHEST PAIN #25 tabs 06/13/23 cholecalciferol (vitamin D3) 25 mcg (1,000 unit) capsule 1,000 unit PO BID 06/14/23 cobalamine combinations capsule cap PO DAILY 06/14/23 acetaminophen 500 mg capsule 1,000 mg (2 x 500 mg) PO Q8H PRN PRN fever or pain #30 caps 06/15/23 amoxicillin 875 mg-potassium clavulanate 125 mg tablet 1 tab PO Q12H #14 tabs 06/15/23 oxycodone 5 mg capsule 5 mg PO Q6H PRN pain 3 days #12 caps 06/15/23 Hospital Course Operations None Procedures None Summary of Care Provided Minutes Spent on Discharge: 32 Hospital Course: 57-year-old male presents with 1 day history of abdominal pain. Patient had a CAT scan that showed diverticulitis. Patient was started on piperacillin/tazobactam was here. Today, the patient is doing much better and did have liquid diet. States that he is passing some liquidy stools but overall feeling better. Patient is otherwise stable and will be discharged home in stable condition. Patient advised to continue with antibiotics, which will be Augmentin, as well as a bland diet and advance as tolerated. Also advised the patient that, given his age he should have outpatient colonoscopy. Weight / BMI Weight Weight: 97.1 kg Body Mass Index (BMI) 29.0 ABG / Lab / Microbiology Data 06/15/23 05:45 06/15/23 05:45 Laboratory: Laboratory Results - last 24 hr 06/14/23 17:01: WBC 8.9, RBC 4.32 L, Hgb 14.1, Hct 43.3, MCV 100.2 H, MCH 32.6 H , MCHC 32.6, RDW Std Deviation 48.7 H, RDW Coeff of Leticia 13.1, Plt Count 251, MPV 9.4, Immature Gran % (Auto) 0.500, Neut % (Auto) 83.8 H, Lymph % (Auto) 10.2 L, Daniels % (Auto) 2.7, Eos % (Auto) 2.5, Baso % (Auto) 0.3, Absolute Neuts (auto) 7.4, Absolute Lymphs (auto) 0.90, Nucleated RBC % 0, Sodium 139, Potassium 4.4, Chloride 108 H, Carbon Dioxide 27.0, Anion Gap 4 L, BUN 13, Creatinine 1.09, Estim Creat Clear Calc 80.09, Est GFR (MDRD) Af Amer 89, Est GFR (MDRD) Non-Af 73, BUN/Creatinine Ratio 11.9, Glucose 119 H, Calcium 9.0, Total Bilirubin 0.60, AST 18, ALT 30, Alkaline Phosphatase 72, Total Protein 8.0, Albumin 3.2, Globulin 4.8 H, Albumin/Globulin Ratio 0.7 L, Lipase 235 H, Urine Color Yellow, Urine Clarity Clear, Urine pH 7.0, Ur Specific Pray 1.010, Urine Protein Negative, Urine Glucose (UA) Normal, Urine Ketones Negative, Urine Occult Blood Negative, Urine Nitrite Negative, Urine Bilirubin Negative, Urine Urobilinogen Normal, Ur Leukocyte Esterase Negative, Urine RBC 0 SEEN, Urine WBC 0 SEEN, Ur Squamous Epith Cells 0 SEEN, Urine Bacteria 0 SEEN, Urine Mucus 0 SEEN 06/15/23 05:45: WBC 7.0, RBC 3.60 L, Hgb 11.7 L, Hct 36.5 L, MCV 101.4 H, MCH 32.5 H, MCHC 32.1, RDW Std Deviation 50.3 H, RDW Coeff of Leticia 13.4, Plt Count 205, MPV 9.9, Immature Gran % (Auto) 0.400, Neut % (Auto) 81.6 H, Lymph % (Auto) 10.5 L, Daniels % (Auto) 4.6, Eos % (Auto) 2.6, Baso % (Auto) 0.3, Absolute Neuts (auto) 5.7, Absolute Lymphs (auto) 0.73 L, Nucleated RBC % 0, Sodium 138, Potassium 3.6, Chloride 109 H, Carbon Dioxide 22.0, Anion Gap 7, BUN 9, Creatinine 0.81, Estim Creat Clear Calc 107.78, Est GFR (MDRD) Af Amer 124, Est GFR (MDRD) Non-Af 103, BUN/Creatinine Ratio 11.1, Glucose 93, Calcium 7.9 L, Total Bilirubin 0.50, AST 12 L, ALT 22, Alkaline Phosphatase 61, Total Protein 6.8, Albumin 2.5 L, Globulin 4.3 H, Albumin/Globulin Ratio 0.6 L Radiography Diagnostic Testing: Radiology Impression Abdomen/Pelvis CT 06/14/23 16:48 IMPRESSION: Sigmoid diverticulitis without abscess or perforation. Electronically Signed: Kris White MD at 17:53 EDT , D/C Instructions Discharge Diet: Low fat / Low cholesterol ([place] diet, advance as tolerated.) Meaningful Use Info Meaningful Use Diagnoses (Choose all that apply): None applicable Discharge Plan Admission Admit Date/Time: 06/14/23 19:31 Primary Reason for Your Visit: Diverticulitis Attending Provider: Rommel Youssef Primary Care Provider: Sergei Henley Consulting Providers: Meliza Ramírez Instructions Additional Instructions / Restrictions: You had diverticulitis, which is infection of the colon. You are on antibiotics and please complete the antibiotics. If you have worsening abdominal pain, notify your physician or return to the emergency room for evaluation. For your diet, recommend just bland, boring diet, such as bananas, rice, applesauce and toast and then advance as tolerated. Given your age you should also have colonoscopy as outpatient. No urgency on the but over the coming several months would recommend following up with a senior online marketing manager. Discharge Orders/Prescriptions Prescriptions: New amoxicillin-pot clavulanate 875-125 mg tablet 1 tab PO Q12H Qty: 14 0RF oxycodone 5 mg capsule 5 mg PO Q6H PRN (Reason: pain) 3 Days Qty: 12 0RF acetaminophen 500 mg capsule 1,000 mg PO Q8H PRN PRN (Reason: fever or pain) Qty: 30 0RF Continued aspirin [Adult Low Dose Aspirin] 81 mg tablet,delayed release (DR/EC) 81 mg PO QDAY cetirizine 10 mg tablet 10 mg PO DAILY PRN (Reason: allergy symptoms) clopidogrel [Plavix] 75 mg tablet 75 mg PO QDAY Qty: 93 3RF Rx Instructions: 300mg (4 pills) on day one followed by 75mg (1 pill) daily starting day two cobalamine combinations Capsule PO DAILY Patient Comments: 1000mg daily cholecalciferol (vitamin D3) 25 mcg (1,000 unit) capsule 1,000 unit PO BID buspirone 5 mg tablet 5 mg PO BID Hold Instructions: not taking Patient Comments: TAKE 1 TABLET BY MOUTH TWICE A DAY losartan 50 mg tablet 50 mg PO DAILY coenzyme Q10 100 mg capsule 100 mg PO DAILY Hold Instructions: Side effects Repatha SureClick 140 mg/mL pen injector 140 mg subcut Q2W Qty: 2 11RF Patient Comments: pt was just prescribed it, has not started taking it yet nitroglycerin [Nitrostat] 0.4 mg tablet, sublingual 0.4 mg SUBLINGUAL Q5-15M PRN (Reason: CHEST PAIN) Qty: 25 3RF Referrals / Follow Up: [facility] [Provider Group] - Within 3 Months Sergei Henley MD [Primary Care Provider] - Within 2 Weeks Disposition Disposition (needs filled in before D/C Order can be placed): Home, Self Care Charges/Coding Visit Charges Inpatient E&M: 21909 Disch Hosp >30min
[2023-06-15] MEDS: 0.9% Normal Saline (1000mL) 1,000 ML 75 ML IV (10:26)
[2023-06-15] MEDS: busPIRone 5 MG Tablet PO (10:26)
[2023-06-15] MEDS: Clopidogrel Bisulfate 75 MG Tablet PO (10:26)
[2023-06-15] MEDS: Aspirin E.C. 81 MG Tablet PO (10:29)
== END 2023-06-15 11:40 | disposition home or self-care (01) ==
LOC: ED 19:19 → MS3 19:52
PROVIDERS: Admitting Provider Internal Medicine; Emergency Provider Emergency Medicine; PCP Family Medicine
DX: K57.32 Diverticulitis of large intestine without perforation or abscess without bleeding (principal); I25.10 Atherosclerotic heart disease of native coronary artery without angina pectoris; Z79.82 Long term (current) use of aspirin; I10 Essential (primary) hypertension; Z87.891 Personal history of nicotine dependence; Z95.5 Presence of coronary angioplasty implant and graft; E78.5 Hyperlipidemia, unspecified; I25.2 Old myocardial infarction; Z79.899 Other long term (current) drug therapy; Z79.02 Long term (current) use of antithrombotics/antiplatelets
CPT/HCPCS: 36415; 74177; 80053; 81001; 83690; 85025; 96361; 96365; 96366; 96367; 96375; 96376; 99221; 99283; J7030; J7040; Q9967; G0378; J0744; J2405

== ENCOUNTER → 2023-07-07 | Outpatient (CLI) | payer OTHER, SELFPAY ==
[2023-07-07 12:51] LABS: AST(SGOT) 31 U/L (15-37); Alanine Aminotransfer ALT/SGPT 52 U/L (16-61); Albumin, Serum 3.6 g/dL (3.2-5.0); Alkaline Phosphatase 72 U/L (45-117); Bilirubin, Direct 0.17 mg/dL (0.00-0.30); Cholesterol 152 mg/dL (200); Globulin 4.6 g/dL (2.2-4.2); High Density Lipoprotein 65 mg/dL; Protein, Total 8.2 g/dL (6.4-8.2); Triglycerides 140 mg/dL; Very Low Density Lipoprotein 28 mg/dL (5-40)
== END | disposition home or self-care (01) ==
PROVIDERS: PCP Family Medicine; Referring Provider Nurse Practitioner Family; Visit Provider Nurse Practitioner Family
DX: E78.5 Hyperlipidemia, unspecified (principal); Z95.5 Presence of coronary angioplasty implant and graft
CPT/HCPCS: 36415; 80061; 80076

== ENCOUNTER → 2023-09-10 | Outpatient (CLI) | payer OTHER, SELFPAY ==
--- OUTSIDE RECORDS SUMMARY | 2023-09-10 09:33 | XMS RPT_ITS | CCD ---
Author Name Unknown Address [address] [place] [address] Organization [facility] Care Team Providers Care Stonehand Name Role Phone Zee King Unavailable Unavailable Slava ZAZUETA, Bhavani Pike Unavailable [phone] Zee King Y Unavailable Unavailable Zee King Y Unavailable Unavailable Zee King Y Unavailable Unavailable Medications Completed/Discontinued Medications Medication Drug Class(es) Dates Sig (Normalized) Sig (Original) amoxicillin 500 mg oral capsule (5 sources) Penicillin-class Antibacterial Start: 07-07-2010 End: 07-14-2010 take 1 tablet by mouth twice daily AMOXICILLIN 500 MG CAPS One tablet by mouth twice daily AMOXICILLIN [id number] Latisha Zayas PA-C aspirin 81 mg oral tablet (10 sources) Nonsteroidal Anti-inflammatory Drug Start: 11-27-2011 take 1 tablet by mouth once daily ASPIRIN 81 MG TABS One tablet by mouth daily ASPIRIN [id number] Elizabet Avila Problems Active Problems Problem Classification Problem Date Documented Da te Episodic/Chronic Acute myocardial infarction (5 sources) ST elevation (STEMI) myocardial infarction of unspecified site; Translations: [ST elevation (STEMI) myocardial infarction of unspecified site] 07-07-2010 Chronic Coronary atherosclerosis and other heart disease (9 sources) Coronary atherosclerosis; Translations: [Atherosclerotic heart disease of nikolai coronary artery without angina pectoris] Onset: 11-27-2011 11-27-2011 Chronic Disorders of lipid metabolism (5 sources) Hyperlipidemia; Translations: [Hyperlipidemia, unspecified] 07-07-2010 Chronic Essential hypertension (5 sources) Hypertensive disorder; Translations: [Essential (primary) hypertension] 07-07-2010 Chronic Unclassified (6 sources) Long-term drug therapy; Translations: [Long-term (current) use of other medications] Onset: 06-10-2012 Resolved: 05-03-2015 06-10-2012 Past or Other Problems Problem Classification Problem Date Documented Da te Episodic/Chronic Coronary atherosclerosis and other heart disease (7 sources) Coronary angioplasty status; Translations: [History of myocardial infarction] Onset: 11-27-2011 11-27-2011 Episodic Disorders of teeth and jaw (5 sources) Dental caries; Translations: [Dental caries, unspecified] Onset: 07-07-2010 07-07-2010 Episodic Other aftercare (9 sources) Long-term (current) use of other medications; Translations: [Other manager long term care (current) drug therapy] Onset: 06-10-2012 Resolved: 05-03-2015 06-10-2012 Episodic Other circulatory disease (3 sources) History of myocardial infarction; Translations: [Old myocardial infarction] Onset: 11-27-2011 11-27-2011 Episodic Other nutritional; endocrine; and metabolic disorders (1 source) Body mass index (BMI) 28.0-28.9, adult; Translations: [Body mass index (BMI) 28.0-28.9, adult] Onset: 10-25-2013 07-09-2016 Episodic Unclassified (8 sources) Body mass index (BMI) 27.0-27.9, adult; Translations: [Body mass index (BMI) 28.0-28.9, adult] Onset: 10-25-2013 10-25-2013 Episodic Unclassified (6 sources) Family history of stroke; Translations: [Body mass index (BMI) 28.0-28.9, adult] Onset: 10-25-2013 05-05-2015 Episodic Results Test Name Value Interpretation Reference Range Facil ity Vital Signs Date Time Vital Sign Value Performing Clinician Nova benitez 01-20-2017 08:42-0400 BMI (Body Mass Index) 28.34 kg/m2 [facility] Work Phone: 01-20-2017 08:42-0400 BP Diastolic 76 mm[Hg] [facility] Work Phone: 01-20-2017 08:42-0400 BP Systolic 118 mm[Hg] [facility] Work Phone: 01-20-2017 08:42-0400 Height 182.88 cm Harumi DeFinis [facility] Work Phone: 01-20-2017 08:42-0400 Pulse (Heart Rate) 88 /min Harumi DeFinis [facility] Work Phone: 01-20-2017 08:42-0400 Respiratory Rate 20 /min Harumi DeFinis [facility] Work Phone: 01-20-2017 08:42-0400 Weight 94.8 kg Harumi DeFinis [facility] Work Phone: 07-09-2016 08:40-0500 Heart rate 75 /min Harumi DeFinis [facility] Work Phone: 07-09-2016 08:26-0500 BMI (Body Mass Index) 28.33 kg/m2 Harumi DeFin[facility] Work Phone: 07-09-2016 08:26-0500 BP Diastolic 90 mm[Hg] Harumi DeFinis [facility] Work Phone: 07-09-2016 08:26-0500 BP Systolic 130 mm[Hg] Harumi DeFinis [facility] Work Phone: 07-09-2016 08:26-0500 BSA (Body Surface Area) 2.17 m2 Harumi DeFinis [facility] Work Phone: 07-09-2016 08:26-0500 Pulse (Heart Rate) 75 /min Harumi DeFinis [facility] Work Phone: 07-09-2016 08:26-0500 Respiratory Rate 16 /min Harumi DeFinis [facility] Work Phone: 07-09-2016 08:26-0500 Weight 94.76 kg Harumi DeFinis [facility] Work Phone: 07-07-2010 15:49-0500 Height 182.88 cm Harumi DeFinis [facility] Work Phone: Procedures Date Procedure Procedure Detail Performing Clinician Start: 01-20-2017 End: 01-20-2017 Follow Up Appt 6 months Brain Whyte MD Start: 01-20-2017 End: 01-20-2017 MMM Brain Whyte MD Start: 11-28-2016 End: 12-02-2016 *Hepatic Function Panel Bhavani grajeda PA-C Work Phone: Start: 11-28-2016 End: 12-02-2016 Lipid 1996 panel - Serum or Plasma Bhavani Ralph PA-C Work Phone: Start: 11-28-2016 End: 12-02-2016 *Hepatic Function Panel Bhavani grajeda PA-C Work Phone: Start: 11-28-2016 End: 12-02-2016 Lipid panel [AGGREGATE] Bhavani grajeda PA-C Work Phone: Start: 07-09-2016 End: 07-09-2016 Follow Up Appt 6 months Bhavani grajeda PA-C Work Phone: Start: 07-09-2016 End: 07-09-2016 PFM Bhavani Ralph PA-C Work Phone: Start: 07-09-2016 End: 07-09-2016 Follow Up Appt 6 months Bhavani grajeda PA-C Work Phone: Start: 07-09-2016 End: 07-09-2016 PFM Bhavani Ralph PA-C Work Phone: Start: 05-03-2016 End: 05-30-2016 *Hepatic Function Panel Bhavani grajeda PA-C Work Phone: Start: 05-03-2016 End: 05-30-2016 Lipid 1996 panel - Serum or Plasma Bhavani Ralph PA-C Work Phone: Start: 05-03-2016 End: 05-30-2016 *Hepatic Function Panel Bhavani grajeda PA-C Work Phone: Start: 05-03-2016 End: 05-30-2016 Lipid panel [AGGREGATE] Bhavani grajeda PA-C Work Phone: Start: 01-05-2016 End: 01-05-2016 Follow Up Appt 6 months Brain Whyte MD Start: 01-05-2016 End: 01-05-2016 GEORGE Brain Whyte MD Start: 01-05-2016 End: 01-05-2016 Dietary management education, guidance, and counseling Zee King Start: 01-05-2016 End: 01-05-2016 Follow Up Appt 6 months Brain Whyte MD Start: 01-05-2016 End: 01-05-2016 MM Brain Whyte MD Start: 10-31-2015 End: 11-01-2015 *Hepatic Function Panel rBain Whyte MD Start: 10-31-2015 End: 11-01-2015 Lipid 1996 panel - Serum or Plasma Brain Whyte MD Start: 10-31-2015 End: 11-01-2015 *Hepatic Function Panel Brain Whyte MD Start: 10-31-2015 End: 11-01-2015 Lipid panel [AGGREGATE] Brain Whyte MD Start: 05-05-2015 End: 05-30-2016 Ecg routine ecg w/least 12 lds w/i&r Bhavani Ralph PA-C Work Phone: Start: 05-05-2015 End: 07-01-2016 Follow Up Appt 6 months Bhavani grajeda PA-C Work Phone: Start: 05-05-2015 End: 05-30-2016 PFM Bhavani Ralph PA-C Work Phone: Start: 05-05-2015 End: 05-30-2016 Electrocardiogram, complete Bhavani Daniel PA-C Work Phone: Start: 05-05-2015 End: 07-01-2016 Follow Up Appt 6 months Bhavani grajeda PA-C Work Phone: Start: 05-05-2015 End: 05-30-2016 PFM Bhavani Ralph PA-C Work Phone: Start: 05-01-2015 End: 05-01-2015 *Hepatic Function Panel Brain Whyte MD Start: 05-01-2015 End: 05-01-2015 Lipid 1996 panel - Serum or Plasma Brain Whyte MD Start: 05-01-2015 End: 05-01-2015 *Hepatic Function Panel Brain Whyte MD Start: 05-01-2015 End: 05-01-2015 Lipid panel [AGGREGATE] Brain Whyte MD Start: 11-04-2014 End: 04-26-2015 *Hepatic Function Panel Brain Whyte MD Start: 11-04-2014 End: 11-05-2014 Documentation of current medications Brain Whyte MD Start: 11-04-2014 End: 04-26-2015 Follow Up Appt 6 months Brain Whyte MD Start: 11-04-2014 End: 04-26-2015 Lipid 1996 panel - Serum or Plasma Brain Whyte MD Start: 11-04-2014 End: 04-26-2015 MMM Brain Whyte MD Start: 11-04-2014 End: 04-26-2015 *Hepatic Function Panel Brain Whyte MD Start: 11-04-2014 End: 11-05-2014 Documentation of current medications Brain Whyte MD Start: 11-04-2014 End: 04-26-2015 Follow Up Appt 6 months Brain Whyte MD Start: 11-04-2014 End: 04-26-2015 Lipid panel [AGGREGATE] Brain Whyte MD Start: 11-04-2014 End: 04-26-2015 MMM Brain Whyte MD Start: 10-31-2014 End: 11-03-2014 *Hepatic Function Panel Brain Whyte MD Start: 10-31-2014 End: 11-03-2014 Lipid 1996 panel - Serum or Plasma Brain Whyte MD Start: 10-31-2014 End: 11-03-2014 *Hepatic Function Panel Brain Whyte MD Start: 10-31-2014 End: 11-03-2014 Lipid panel [AGGREGATE] Brain Whyte MD Start: 05-02-2014 End: 04-26-2015 Follow Up Appt 6 months Bhavani grajeda PA-C Work Phone: Start: 05-02-2014 End: 04-26-2015 PF Bhavani Ralph PA-C Work Phone: Start: 05-02-2014 End: 04-26-2015 Follow Up Appt 6 months Bhavani grajeda PA-C Work Phone: Start: 05-02-2014 End: 04-26-2015 [facility] Bhavani Ralph PA-C Work Phone: Start: 04-11-2014 End: 05-02-2014 *Hepatic Function Panel Brain Whyte MD Start: 04-11-2014 End: 05-02-2014 Lipid 1996 panel - Serum or Plasma Brain Whyte MD Start: 04-11-2014 End: 05-02-2014 *Hepatic Function Panel Brain Whyte MD Start: 04-11-2014 End: 05-02-2014 Lipid panel [AGGREGATE] Brain Whyte MD Start: 10-25-2013 End: 11-09-2013 *Hepatic Function Panel Brain Whyte MD Start: 10-25-2013 End: 10-25-2013 Ecg routine ecg w/least 12 lds w/i&r Brain Whyte MD Start: 10-25-2013 End: 10-25-2013 Follow Up Appt 6 months Brain Whyte MD Start: 10-25-2013 End: 11-09-2013 Lipid 1996 panel - Serum or Plasma Brain Whyte MD Start: 10-25-2013 End: 10-25-2013 MMM Brain Whyte MD Start: 10-25-2013 End: 11-10-2013 Nuclear stress test -exercise Brain Whyte MD Start: 10-25-2013 End: 11-09-2013 *Hepatic Function Panel Brain Whyte MD Start: 10-25-2013 End: 10-25-2013 Electrocardiogram, complete Brain maravilla MD Start: 10-25-2013 End: 10-25-2013 Follow Up Appt 6 months Brain Whyte MD Start: 10-25-2013 End: 11-09-2013 Lipid panel [AGGREGATE] Brain Whyte MD Start: 10-25-2013 End: 10-25-2013 MMM Brain Whyte MD Start: 10-25-2013 End: 11-10-2013 Nuclear stress test -exercise Brain Whyte MD Start: 05-11-2013 End: 06-07-2013 *Hepatic Function Panel Bhavani grajeda PA-C Work Phone: Start: 05-11-2013 End: 06-07-2013 Lipid 1996 panel - Serum or Plasma Bhavani Ralph PA-C Work Phone: Start: 05-11-2013 End: 06-07-2013 *Hepatic Function Panel Bhavani grajeda PA-C Work Phone: Start: 05-11-2013 End: 06-07-2013 Lipid panel [AGGREGATE] Bhavani grajeda PA-C Work Phone: Start: 01-11-2013 End: 01-11-2013 Follow Up Appt 6 months Bhavani grajeda PA-C Work Phone: Start: 01-11-2013 End: 01-11-2013 PFM Bhavani Ralph PA-C Work Phone: Start: 01-11-2013 End: 01-11-2013 Follow Up Appt 6 months Bhavani grajeda PA-C Work Phone: Start: 01-11-2013 End: 01-11-2013 PFM Bhavani Ralph PA-C Work Phone: Start: 11-09-2012 End: 11-11-2012 *Hepatic Function Panel Brain Whyte MD Start: 11-09-2012 End: 11-11-2012 Lipid 1996 panel - Serum or Plasma Brain Whyte MD Start: 11-09-2012 End: 11-11-2012 *Hepatic Function Panel Brain Whyte MD Start: 11-09-2012 End: 11-11-2012 Lipid panel [AGGREGATE] Brain Whyte MD Start: 06-01-2012 End: 06-10-2012 *Hepatic Function Panel Brain Whyte MD Start: 06-01-2012 End: 12-30-2012 Follow Up Appt 6 months Brain Whyte MD Start: 06-01-2012 End: 06-10-2012 Lipid 1996 panel - Serum or Plasma Brain Whyte MD Start: 06-01-2012 End: 06-10-2012 *Hepatic Function Panel Brain Whyte MD Start: 06-01-2012 End: 12-30-2012 Follow Up Appt 6 months Brain Whyte MD Start: 06-01-2012 End: 06-10-2012 Lipid panel [AGGREGATE] Brain Whyte MD Start: 11-28-2011 End: 11-28-2011 Follow Up Appt 6 months Brain Whyte MD Start: 11-28-2011 End: 11-28-2011 Follow Up Appt 6 months Brain Whyte MD Plan of Treatment Date Care Activity Detail Author Start: 01-26-2018 End: 01-26-2018 Appointment Appointment [facility] Work Phone: Start: 08-12-2017 End: 08-12-2017 Appointment Appointment [facility] Work Phone: Start: 06-03-2017 End: 12-06-2016 *Hepatic Function Panel *Hepatic Function Panel [facility] Work Phone: Start: 06-03-2017 End: 12-06-2016 Lipid panel [AGGREGATE] *Lipid Profile CC PCP [facility] Work Phone: Start: 06-03-2017 End: 12-06-2016 *Hepatic Function Panel *Hepatic Function Panel [facility] Work Phone: Start: 06-03-2017 End: 12-06-2016 Lipid panel [AGGREGATE] *Lipid Profile CC PCP [facility] Work Phone: Start: 01-20-2017 End: 01-20-2017 Appointment Appointment [facility] Work Phone: Start: 01-20-2017 End: 01-20-2017 Appointment Appointment [facility] Work Phone: Start: 01-20-2017 End: 01-20-2017 Follow Up Appt 6 months Follow Up Appt 6 months [facility] Work Phone: Start: 01-20-2017 End: 01-20-2017 MMM MMM [facility] Work Phone: Start: 11-28-2016 End: 12-02-2016 *Hepatic Function Panel *Hepatic Function Panel [facility] Work Phone: Start: 11-28-2016 End: 12-02-2016 Lipid panel [AGGREGATE] *Lipid Profile CC PCP [facility] Work Phone: Start: 11-28-2016 End: 12-02-2016 *Hepatic Function Panel *Hepatic Function Panel [facility] Work Phone: Start: 11-28-2016 End: 12-02-2016 Lipid panel [AGGREGATE] *Lipid Profile CC PCP [facility] Work Phone: Start: 07-09-2016 End: 07-09-2016 Follow Up Appt 6 months Follow Up Appt 6 months [facility] Work Phone: Start: 07-09-2016 End: 07-09-2016 PFM PFM [facility] Work Phone: Start: 07-09-2016 End: 07-09-2016 Follow Up Appt 6 months Follow Up Appt 6 months [facility] Work Phone: Start: 07-09-2016 End: 07-09-2016 PFM PFM [facility] Work Phone: Start: 05-03-2016 End: 05-30-2016 *Hepatic Function Panel *Hepatic Function Panel [facility] Work Phone: Start: 05-03-2016 End: 05-30-2016 Lipid panel [AGGREGATE] *Lipid Profile CC PCP [facility] Work Phone: Start: 05-03-2016 End: 05-30-2016 *Hepatic Function Panel *Hepatic Function Panel [facility] Work Phone: Start: 05-03-2016 End: 05-30-2016 Lipid panel [AGGREGATE] *Lipid Profile CC PCP [facility] Work Phone: Start: 01-05-2016 End: 01-05-2016 Follow Up Appt 6 months Follow Up Appt 6 months [facility] Work Phone: Start: 01-05-2016 End: 01-05-2016 MMM MMM [facility] Work Phone: Start: 01-05-2016 End: 01-05-2016 Follow Up Appt 6 months Follow Up Appt 6 months [facility] Work Phone: Start: 01-05-2016 End: 01-05-2016 MMM MMM [facility] Work Phone: Start: 10-31-2015 End: 11-01-2015 *Hepatic Function Panel *Hepatic Function Panel [facility] Work Phone: Start: 10-31-2015 End: 11-01-2015 Lipid panel [AGGREGATE] *Lipid Profile CC PCP [facility] Work Phone: Start: 10-31-2015 End: 11-01-2015 *Hepatic Function Panel *Hepatic Function Panel [facility] Work Phone: Start: 10-31-2015 End: 11-01-2015 Lipid panel [AGGREGATE] *Lipid Profile CC PCP [facility] Work Phone: Start: 05-05-2015 End: 05-01-2015 *Hepatic Function Panel *Hepatic Function Panel [facility] Work Phone: Start: 05-05-2015 End: 05-30-2016 Ecg routine ecg w/least 12 lds w/i&r EKG (In office) [facility] Work Phone: Start: 05-05-2015 End: 05-05-2015 Follow Up Appt 6 months Follow Up Appt 6 months [facility] Work Phone: Start: 05-05-2015 End: 05-01-2015 Lipid panel [AGGREGATE] *Lipid Profile CC PCP [facility] Work Phone: Start: 05-05-2015 End: 05-30-2016 PFM PFM [facility] Work Phone: Start: 05-05-2015 End: 05-01-2015 *Hepatic Function Panel *Hepatic Function Panel [facility] Work Phone: Start: 05-05-2015 End: 05-30-2016 Electrocardiogram, complete EKG (In office) [facility] Work Phone: Start: 05-05-2015 End: 05-05-2015 Follow Up Appt 6 months Follow Up Appt 6 months [facility] Work Phone: Start: 05-05-2015 End: 05-01-2015 Lipid panel [AGGREGATE] *Lipid Profile CC PCP [facility] Work Phone: Start: 05-05-2015 End: 05-30-2016 PFM PFM [facility] Work Phone: Start: 11-04-2014 End: 04-26-2015 *Hepatic Function Panel *Hepatic Function Panel [facility] Work Phone: Start: 11-04-2014 End: 04-26-2015 Follow Up Appt 6 months Follow Up Appt 6 months [facility] Work Phone: Start: 11-04-2014 End: 04-26-2015 Lipid panel [AGGREGATE] *Lipid Profile CC PCP [facility] Work Phone: Start: 11-04-2014 End: 04-26-2015 MMM MMM [facility] Work Phone: Start: 11-04-2014 End: 04-26-2015 *Hepatic Function Panel *Hepatic Function Panel [facility] Work Phone: Start: 11-04-2014 End: 04-26-2015 Follow Up Appt 6 months Follow Up Appt 6 months [facility] Work Phone: Start: 11-04-2014 End: 04-26-2015 Lipid panel [AGGREGATE] *Lipid Profile CC PCP [facility] Work Phone: Start: 11-04-2014 End: 04-26-2015 MMM MMM [facility] Work Phone: Start: 10-31-2014 End: 11-03-2014 *Hepatic Function Panel *Hepatic Function Panel [facility] Work Phone: Start: 10-31-2014 End: 11-03-2014 Lipid panel [AGGREGATE] *Lipid Profile CC PCP [facility] Work Phone: Start: 10-31-2014 End: 11-03-2014 *Hepatic Function Panel *Hepatic Function Panel [facility] Work Phone: Start: 10-31-2014 End: 11-03-2014 Lipid panel [AGGREGATE] *Lipid Profile CC PCP [facility] Work Phone: Start: 05-02-2014 End: 04-26-2015 Follow Up Appt 6 months Follow Up Appt 6 months [facility] Work Phone: Start: 05-02-2014 End: 04-26-2015 PFM PFM [facility] Work Phone: Start: 05-02-2014 End: 04-26-2015 Follow Up Appt 6 months Follow Up Appt 6 months [facility] Work Phone: Start: 05-02-2014 End: 04-26-2015 PFM PFM [facility] Work Phone: Start: 04-11-2014 End: 05-02-2014 *Hepatic Function Panel *Hepatic Function Panel [facility] Work Phone: Start: 04-11-2014 End: 05-02-2014 Lipid panel [AGGREGATE] *Lipid Profile CC PCP [facility] Work Phone: Start: 04-11-2014 End: 05-02-2014 *Hepatic Function Panel *Hepatic Function Panel [facility] Work Phone: Start: 04-11-2014 End: 05-02-2014 Lipid panel [AGGREGATE] *Lipid Profile CC PCP [facility] Work Phone: Start: 10-25-2013 End: 11-09-2013 *Hepatic Function Panel *Hepatic Function Panel [facility] Work Phone: Start: 10-25-2013 End: 10-25-2013 Ecg routine ecg w/least 12 lds w/i&r EKG (In office) [facility] Phone: Start: 10-25-2013 End: 10-25-2013 Follow Up Appt 6 months Follow Up Appt 6 months [facility] Phone: Start: 10-25-2013 End: 11-09-2013 Lipid panel [AGGREGATE] *Lipid Profile CC PCP [facility] Work Phone: Start: 10-25-2013 End: 10-25-2013 MMM MMM [facility] Phone: Start: 10-25-2013 End: 10-25-2013 Nuclear stress test -exercise Nuclear stress test -exercise [facility] Phone: Start: 10-25-2013 End: 11-09-2013 *Hepatic Function Panel *Hepatic Function Panel [facility] Phone: Start: 10-25-2013 End: 10-25-2013 Electrocardiogram, complete EKG (In office) [facility] Phone: Start: 10-25-2013 End: 10-25-2013 Follow Up Appt 6 months Follow Up Appt 6 months [facility] Phone: Start: 10-25-2013 End: 11-09-2013 Lipid panel [AGGREGATE] *Lipid Profile CC PCP [facility] Work Phone: Start: 10-25-2013 End: 10-25-2013 MMM MMM [facility] Phone: Start: 10-25-2013 End: 10-25-2013 Nuclear stress test -exercise Nuclear stress test -exercise [facility] Phone: Start: 05-11-2013 End: 06-07-2013 *Hepatic Function Panel *Hepatic Function Panel [facility] Phone: Start: 05-11-2013 End: 06-07-2013 Lipid panel [AGGREGATE] *Lipid Profile [facility] Work Phone: Start: 05-11-2013 End: 06-07-2013 *Hepatic Function Panel *Hepatic Function Panel [facility] Work Phone: Start: 05-11-2013 End: 06-07-2013 Lipid panel [AGGREGATE] *Lipid Profile [facility] Work Phone: Start: 01-11-2013 End: 01-11-2013 Follow Up Appt 6 months Follow Up Appt 6 months [facility] Work Phone: Start: 01-11-2013 End: 01-11-2013 PFM PFM [facility] Work Phone: Start: 01-11-2013 End: 01-11-2013 Follow Up Appt 6 months Follow Up Appt 6 months [facility] Work Phone: Start: 01-11-2013 End: 01-11-2013 PFM PFM [facility] Work Phone: Start: 11-09-2012 End: 11-11-2012 *Hepatic Function Panel *Hepatic Function Panel [facility] Work Phone: Start: 11-09-2012 End: 11-11-2012 Lipid panel [AGGREGATE] *Lipid Profile [facility] Work Phone: Start: 11-09-2012 End: 11-11-2012 *Hepatic Function Panel *Hepatic Function Panel [facility] Work Phone: Start: 11-09-2012 End: 11-11-2012 Lipid panel [AGGREGATE] *Lipid Profile [facility] Work Phone: Start: 06-01-2012 End: 06-10-2012 *Hepatic Function Panel *Hepatic Function Panel [facility] Work Phone: Start: 06-01-2012 End: 12-30-2012 Follow Up Appt 6 months Follow Up Appt 6 months [facility] Work Phone: Start: 06-01-2012 End: 06-10-2012 Lipid panel [AGGREGATE] *Lipid Profile [facility] Work Phone: Start: 06-01-2012 End: 06-10-2012 *Hepatic Function Panel *Hepatic Function Panel [facility] Work Phone: Start: 06-01-2012 End: 12-30-2012 Follow Up Appt 6 months Follow Up Appt 6 months [facility] Work Phone: Start: 06-01-2012 End: 06-10-2012 Lipid panel [AGGREGATE] *Lipid Profile [facility] Work Phone: Start: 11-28-2011 End: 11-28-2011 Follow Up Appt 6 months Follow Up Appt 6 months [facility] Work Phone: Start: 11-28-2011 End: 11-28-2011 Follow Up Appt 6 months Follow Up Appt 6 months [facility] Work Phone: [facility] Work Phone: Additional Source Comments FOR RECORDS PERTAINING TO PATIENTS WHO ARE OR HAVE BEEN ENROLLED IN A CHEMICAL DEPENDENCY/SUBSTANCEABUSE PROGRAM, SOME INFORMATION MAY BE OMITTED. This clinical summary was aggregated from multiple sources. Caution should be exercised in using it in the provision of clinical care. This summary normalizes information from multiple sources, and as a consequence, information in this document may materially change the coding, format and clinical context of patient data. In addition, data may be omitted in some cases. CLINICAL DECISIONS SHOULD BE BASED ON THE PRIMARY CLINICAL RECORDS. [employer] provides no warranty or guarantee of the accuracy or completeness of information in this document.
[2023-09-10 10:09] LABS: Hematocrit 46.5 % (40-54); Hemoglobin 15.4 g/dL (13.0-16.5); Mean Corp Hgb Conc 33.1 g/dL (32-36); Mean Corpuscular Hgb 32.2 pg (27.0-32.0); Mean Corpuscular Volume 97.1 fL (80-94); Mean Platelet Vol. 9.9 fl (6.2-12.0); Platelet Count 260 K/mm3 (150-450); RBC Distribution Width CV 13.3 % (11.6-14.6); RBC Distribution Width SD 47.8 fl (35.1-43.9); Red Blood Count 4.79 M/mm3 (4.6-6.2); White Blood Count 5.9 K/mm3 (4.4-11.0)
[2023-09-10 10:25] LABS: Vitamin B12 438 pg/mL (211-911)
[2023-09-10 10:28] LABS: ALB/GLOB Ratio 0.9 RATIO (0.9-2.4); AST(SGOT) 32 U/L (15-37); Alanine Aminotransfer ALT/SGPT 46 U/L (16-61); Albumin, Serum 3.7 g/dL (3.2-5.0); Alkaline Phosphatase 63 U/L (45-117); Anion Gap 4 (5-15); BUN 19 mg/dL (7-18); BUN/Creat Ratio 20.5 RATIO (10-20); Calcium,Total 9.3 mg/dL (8.5-10.1); Chloride 104 mmol/L (98-107); Creatinine, Serum 0.93 mg/dL (0.70-1.30); EST Glomerular Filtration Rate 89 mL/min (>60); Est Glom Filt Rate - Afr Amer 107 mL/min (>60); Globulin 4.3 g/dL (2.2-4.2); Glucose 109 mg/dL (74-106); Potassium 4.6 mmol/L (3.5-5.1); Sodium Level 133 mmol/L (136-145)
[2023-09-10 11:18] LABS: Hemoglobin A1c 5.5 % (3.8-5.6)
[2023-09-12 13:08] LABS: Vitamin D 1,25-Dihydroxy 33.6 pg/mL (24.8-81.5)
== END | disposition home or self-care (01) ==
LOC: MFPLAB 08:53
PROVIDERS: Nurse Practitioner Family; PCP Family Medicine; Visit Provider Family Medicine
DX: R42 Dizziness and giddiness (principal); E55.9 Vitamin D deficiency, unspecified; E53.9 Vitamin B deficiency, unspecified
CPT/HCPCS: 36415; 80053; 82607; 82652; 83036; 85027

== ENCOUNTER 2023-10-02 06:24 | Day surgery (SDC) | payer OTHER, SELFPAY ==
--- OUTSIDE RECORDS SUMMARY | 2023-10-02 06:30 | XMS RPT_ITS | CCD ---
Author Name Unknown Address [address] [place] [address] Organization [facility] Care Team Providers Care Carton Stamper Name Role Phone Zee King Unavailable Unavailable Slava ZAZUETA, Bhavani Pike Unavailable [phone] Zee King Y Unavailable Unavailable Zee King Y Unavailable Unavailable Zee King Y Unavailable Unavailable Medications Completed/Discontinued Medications Medication Drug Class(es) Dates Sig (Normalized) Sig (Original) amoxicillin 500 mg oral capsule (5 sources) Penicillin-class Antibacterial Start: 07-07-2010 End: 07-14-2010 take 1 tablet by mouth twice daily AMOXICILLIN 500 MG CAPS One tablet by mouth twice daily AMOXICILLIN [id number] Latisha Zayas PA-C aspirin 81 mg oral tablet (10 sources) Nonsteroidal Anti-inflammatory Drug Start: 11-27-2011 take 1 tablet by mouth once daily ASPIRIN 81 MG TABS One tablet by mouth daily ASPIRIN [id number] Elizabet Avila Problems Active Problems Problem Classification Problem Date Documented Da te Episodic/Chronic Acute myocardial infarction (5 sources) ST elevation (STEMI) myocardial infarction of unspecified site; Translations: [ST elevation (STEMI) myocardial infarction of unspecified site] 07-07-2010 Chronic Coronary atherosclerosis and other heart disease (9 sources) Coronary atherosclerosis; Translations: [Atherosclerotic heart disease of [place] coronary artery without angina pectoris] Onset: 11-27-2011 [...] (current) use of other medications; Translations: [Other joint terminal attack controller (current) drug therapy] Onset: 06-10-2012 Resolved: 05-03-2015 [...] BMI (Body Mass Index) 28.34 kg/m2 [facility] Work Phone: 01-20-2017 08:42-0400 BP Diastolic 76 mm[Hg] [facility] Work Phone: 01-20-2017 08:42-0400 BP Systolic 118 mm[Hg] [facility] Work Phone: 01-20-2017 08:42-0400 Height 182.88 cm Harumi DeFinis [facility] Work Phone: 01-20-2017 08:42-0400 Pulse (Heart Rate) 88 /min Harumi DeFinis [facility] Work Phone: 01-20-2017 08:42-0400 Respiratory Rate 20 /min Harumi DeFinis [facility] Work Phone: 01-20-2017 08:42-0400 Weight 94.8 kg Harumi DeFinis [facility] Work Phone: 07-09-2016 08:40-0500 Heart rate 75 /min Harumi DeFinis [facility] Work Phone: 07-09-2016 08:26-0500 BMI (Body Mass Index) 28.33 kg/m2 Harumi DeFinis [facility] Work Phone: 07-09-2016 08:26-0500 BP Diastolic 90 mm[Hg] Harumi DeFinis [facility] Work Phone: 07-09-2016 08:26-0500 BP Systolic 130 mm[Hg] Harumi DeFinis [facility] Work Phone: 07-09-2016 08:26-0500 BSA (Body Surface Area) 2.17 m2 Harumi DeFinis [facility] Work Phone: 07-09-2016 08:26-0500 Pulse (Heart Rate) 75 /min Harumi DeFinis [facility] Work Phone: 07-09-2016 08:26-0500 Respiratory Rate 16 /min Harumi DeFinis [facility] Work Phone: 07-09-2016 08:26-0500 Weight 94.76 kg Harumi DeFinis [facility] Work Phone: 07-07-2010 15:49-0500 Height 182.88 cm Harumi DeFinis [facility] Work Phone: Procedures Date Procedure [...] Dietary management education, guidance, and counseling Zee Knig Start: 01-05-2016 End: 01-05-2016 Follow Up Appt 6 months Brain Whyte MD Start: 01-05-2016 End: 01-05-2016 MM Brain Whyte MD Start: 10-31-2015 End: 11-01-2015 *Hepatic Function Panel Brain Whyte MD Start: 10-31-2015 End: 11-01-2015 Lipid 1996 panel - Serum or Plasma Brani Whyte MD Start: 10-31-2015 End: 11-01-2015 *Hepatic [...] PA-C Work Phone: Start: 05-02-2014 End: 04-26-2015 [facility] Bhavani Ralph PA-C Work Phone: Start: [...] Author Start: 01-26-2018 End: 01-26-2018 Appointment Appointment [facility] Work Phone: Start: 08-12-2017 End: 08-12-2017 Appointment Appointment [facility] Work Phone: Start: 06-03-2017 End: 12-06-2016 *Hepatic Function Panel *Hepatic Function Panel [facility] Work Phone: Start: 06-03-2017 End: 12-06-2016 Lipid panel [AGGREGATE] *Lipid Profile CC PCP [facility] Work Phone: Start: 06-03-2017 End: 12-06-2016 *Hepatic Function Panel *Hepatic Function Panel [facility] Work Phone: Start: 06-03-2017 End: 12-06-2016 Lipid panel [AGGREGATE] *Lipid Profile CC PCP [facility] Work Phone: Start: 01-20-2017 End: 01-20-2017 Appointment Appointment [facility] Work Phone: Start: 01-20-2017 End: 01-20-2017 Appointment Appointment [facility] Work Phone: Start: 01-20-2017 End: 01-20-2017 Follow Up Appt 6 months Follow Up Appt 6 months [facility] Work Phone: Start: 01-20-2017 End: 01-20-2017 MMM MMM [facility] Work Phone: Start: 11-28-2016 End: 12-02-2016 *Hepatic Function Panel *Hepatic Function Panel [facility] Work Phone: Start: 11-28-2016 End: 12-02-2016 Lipid panel [AGGREGATE] *Lipid Profile CC PCP [facility] Work Phone: Start: 11-28-2016 End: 12-02-2016 *Hepatic Function Panel *Hepatic Function Panel [facility] Work Phone: Start: 11-28-2016 End: 12-02-2016 Lipid panel [AGGREGATE] *Lipid Profile CC PCP [facility] Work Phone: Start: 07-09-2016 End: 07-09-2016 Follow Up Appt 6 months Follow Up Appt 6 months [facility] Work Phone: Start: 07-09-2016 End: 07-09-2016 PFM PFM [facility] Work Phone: Start: 07-09-2016 End: 07-09-2016 Follow Up Appt 6 months Follow Up Appt 6 months [facility] Work Phone: Start: 07-09-2016 End: 07-09-2016 PFM PFM [facility] Work Phone: Start: 05-03-2016 End: 05-30-2016 *Hepatic Function Panel *Hepatic Function Panel [facility] Work Phone: Start: 05-03-2016 End: 05-30-2016 Lipid panel [AGGREGATE] *Lipid Profile CC PCP [facility] Work Phone: Start: 05-03-2016 End: 05-30-2016 *Hepatic Function Panel *Hepatic Function Panel [facility] Work Phone: Start: 05-03-2016 End: 05-30-2016 Lipid panel [AGGREGATE] *Lipid Profile CC PCP [facility] Work Phone: Start: 01-05-2016 End: 01-05-2016 Follow Up Appt 6 months Follow Up Appt 6 months [facility] Work Phone: Start: 01-05-2016 End: 01-05-2016 MMM MMM [facility] Work Phone: Start: 01-05-2016 End: 01-05-2016 Follow Up Appt 6 months Follow Up Appt 6 months [facility] Work Phone: Start: 01-05-2016 End: 01-05-2016 MMM MMM [facility] Work Phone: Start: 10-31-2015 End: 11-01-2015 *Hepatic Function Panel *Hepatic Function Panel [facility] Work Phone: Start: 10-31-2015 End: 11-01-2015 Lipid panel [AGGREGATE] *Lipid Profile CC PCP [facility] Work Phone: Start: 10-31-2015 End: 11-01-2015 *Hepatic Function Panel *Hepatic Function Panel [facility] Work Phone: Start: 10-31-2015 End: 11-01-2015 Lipid panel [AGGREGATE] *Lipid Profile CC PCP [facility] Work Phone: Start: 05-05-2015 End: 05-01-2015 *Hepatic Function Panel *Hepatic Function Panel [facility] Work Phone: Start: 05-05-2015 End: 05-30-2016 Ecg routine ecg w/least 12 lds w/i&r EKG (In office) [facility] Work Phone: Start: 05-05-2015 End: 05-05-2015 Follow Up Appt 6 months Follow Up Appt 6 months [facility] Work Phone: Start: 05-05-2015 End: 05-01-2015 Lipid panel [AGGREGATE] *Lipid Profile CC PCP [facility] Work Phone: Start: 05-05-2015 End: 05-30-2016 PFM PFM [facility] Work Phone: Start: 05-05-2015 End: 05-01-2015 *Hepatic Function Panel *Hepatic Function Panel [facility] Work Phone: Start: 05-05-2015 End: 05-30-2016 Electrocardiogram, complete EKG (In office) [facility] Work Phone: Start: 05-05-2015 End: 05-05-2015 Follow Up Appt 6 months Follow Up Appt 6 months [facility] Work Phone: Start: 05-05-2015 End: 05-01-2015 Lipid panel [AGGREGATE] *Lipid Profile CC PCP [facility] Work Phone: Start: 05-05-2015 End: 05-30-2016 PFM PFM [facility] Work Phone: Start: 11-04-2014 End: 04-26-2015 *Hepatic Function Panel *Hepatic Function Panel [facility] Work Phone: Start: 11-04-2014 End: 04-26-2015 Follow Up Appt 6 months Follow Up Appt 6 months [facility] Work Phone: Start: 11-04-2014 End: 04-26-2015 Lipid panel [AGGREGATE] *Lipid Profile CC PCP [facility] Work Phone: Start: 11-04-2014 End: 04-26-2015 MMM MMM [facility] Work Phone: Start: 11-04-2014 End: 04-26-2015 *Hepatic Function Panel *Hepatic Function Panel [facility] Work Phone: Start: 11-04-2014 End: 04-26-2015 Follow Up Appt 6 months Follow Up Appt 6 months [facility] Work Phone: Start: 11-04-2014 End: 04-26-2015 Lipid panel [AGGREGATE] *Lipid Profile CC PCP [facility] Work Phone: Start: 11-04-2014 End: 04-26-2015 MMM MMM [facility] Work Phone: Start: 10-31-2014 End: 11-03-2014 *Hepatic Function Panel *Hepatic Function Panel [facility] Work Phone: Start: 10-31-2014 End: 11-03-2014 Lipid panel [AGGREGATE] *Lipid Profile CC PCP [facility] Work Phone: Start: 10-31-2014 End: 11-03-2014 *Hepatic Function Panel *Hepatic Function Panel [facility] Work Phone: Start: 10-31-2014 End: 11-03-2014 Lipid panel [AGGREGATE] *Lipid Profile CC PCP [facility] Work Phone: Start: 05-02-2014 End: 04-26-2015 Follow Up Appt 6 months Follow Up Appt 6 months [facility] Work Phone: Start: 05-02-2014 End: 04-26-2015 PFM PFM [facility] Work Phone: Start: 05-02-2014 End: 04-26-2015 Follow Up Appt 6 months Follow Up Appt 6 months [facility] Work Phone: Start: 05-02-2014 End: 04-26-2015 PFM PFM [facility] Work Phone: Start: 04-11-2014 End: 05-02-2014 *Hepatic Function Panel *Hepatic Function Panel [facility] Work Phone: Start: 04-11-2014 End: 05-02-2014 Lipid panel [AGGREGATE] *Lipid Profile CC PCP [facility] Work Phone: Start: 04-11-2014 End: 05-02-2014 *Hepatic Function Panel *Hepatic Function Panel [facility] Work Phone: Start: 04-11-2014 End: 05-02-2014 Lipid panel [AGGREGATE] *Lipid Profile CC PCP [facility] Work Phone: Start: 10-25-2013 End: 11-09-2013 *Hepatic Function Panel *Hepatic Function Panel [facility] Work Phone: Start: 10-25-2013 End: 10-25-2013 Ecg routine ecg w/least 12 lds w/i&r EKG (In office) [facility] Phone: Start: 10-25-2013 End: 10-25-2013 Follow Up Appt 6 months Follow Up Appt 6 months [facility] Phone: Start: 10-25-2013 End: 11-09-2013 Lipid panel [AGGREGATE] *Lipid Profile CC PCP [facility] Work Phone: Start: 10-25-2013 End: 10-25-2013 MMM MMM [facility] Phone: Start: 10-25-2013 End: 10-25-2013 Nuclear stress test -exercise Nuclear stress test -exercise [facility] Phone: Start: 10-25-2013 End: 11-09-2013 *Hepatic Function Panel *Hepatic Function Panel [facility] Phone: Start: 10-25-2013 End: 10-25-2013 Electrocardiogram, complete EKG (In office) [facility] Phone: Start: 10-25-2013 End: 10-25-2013 Follow Up Appt 6 months Follow Up Appt 6 months [facility] [employer] Phone: Start: 10-25-2013 End: 11-09-2013 Lipid panel [AGGREGATE] *Lipid Profile CC PCP [facility] Work Phone: Start: 10-25-2013 End: 10-25-2013 MMM MMM [facility] Phone: Start: 10-25-2013 End: 10-25-2013 Nuclear stress test -exercise Nuclear stress test -exercise [facility] Phone: Start: 05-11-2013 End: 06-07-2013 *Hepatic Function Panel *Hepatic Function Panel [facility] [employer] Phone: Start: 05-11-2013 End: 06-07-2013 Lipid panel [AGGREGATE] *Lipid Profile [facility] Work Phone: Start: 05-11-2013 End: 06-07-2013 *Hepatic Function Panel *Hepatic Function Panel [facility] Work Phone: Start: 05-11-2013 End: 06-07-2013 Lipid panel [AGGREGATE] *Lipid Profile [facility] Work Phone: Start: 01-11-2013 End: 01-11-2013 Follow Up Appt 6 months Follow Up Appt 6 months [facility] Work Phone: Start: 01-11-2013 End: 01-11-2013 PFM PFM [facility] Work Phone: Start: 01-11-2013 End: 01-11-2013 Follow Up Appt 6 months Follow Up Appt 6 months [facility] Work Phone: Start: 01-11-2013 End: 01-11-2013 PFM PFM [facility] Work Phone: Start: 11-09-2012 End: 11-11-2012 *Hepatic Function Panel *Hepatic Function Panel [facility] Work Phone: Start: 11-09-2012 End: 11-11-2012 Lipid panel [AGGREGATE] *Lipid Profile [facility] Work Phone: Start: 11-09-2012 End: 11-11-2012 *Hepatic Function Panel *Hepatic Function Panel [facility] Work Phone: Start: 11-09-2012 End: 11-11-2012 Lipid panel [AGGREGATE] *Lipid Profile [facility] Work Phone: Start: 06-01-2012 End: 06-10-2012 *Hepatic Function Panel *Hepatic Function Panel [facility] Work Phone: Start: 06-01-2012 End: 12-30-2012 Follow Up Appt 6 months Follow Up Appt 6 months [facility] Work Phone: Start: 06-01-2012 [...] BE BASED ON THE PRIMARY CLINICAL RECORDS. [employer] provides no warranty or guarantee of the accuracy or completeness of information in this document.
[2023-10-02 06:44] VITALS: BP 134/81; PULSE 81; RESP 18; TEMP 35.8; O2SAT 100; BMI 27.5
[2023-10-02] MEDS: Lactated Ringers 1,000 ML 15 ML IV (06:54)
--- NOTE | 2023-10-02 07:25 | PCM.HP.BLA ---
History and Physical Date of Admission: 10/02/23 Date of Service: 07/17/23 MR#: [id number] Acct: [id number] Name: JOVANY KENNEY Rep #: [id number] : [id number] Provider: Dr. Olegario Segal MD Age/Sex: 57/M Location: [facility] Status: Signed Intake Vital Signs 06/14/2321:15 07/17/2308:17 Height 6 ft 6 ft Weight: 213 lb 2 oz BMI 28.9 BP 125/88 H Blood Pressure Location Rt brachial Position Sitting Respiration 18 Pulse 78 Pulse Source Monitor Temp 97.2 F L Temp Source Temporal Pulse Oximetry (%) 98 Oxygen Delivery Method room air Intake Visit Reasons: DIVERTICULITIS Chief Complaint: Diverticulitis Electrical Systems Drafter Required: No Is patient in pain?: No Allergies No Known Allergies Allergy (Verified 07/17/23 08:20) Medications aspirin 81 mg tablet,delayed release (Adult Low Dose Aspirin) 81 mg PO QDAY [facility] 08/06/17 [History Confirmed 07/17/23] coenzyme Q10 100 mg capsule 100 mg PO DAILY 05/05/23 [History Confirmed 07/17/23] cetirizine 10 mg tablet 10 mg PO DAILY PRN allergy symptoms 05/20/23 [History Confirmed 07/17/23] clopidogrel 75 mg tablet (Plavix) 75 mg PO QDAY #93 tabs 05/20/23 [Rx Confirmed 07/17/23] losartan 50 mg tablet 50 mg PO DAILY 05/20/23 [History Confirmed 07/17/23] evolocumab 140 mg/mL subcutaneous pen injector (Repatha SureClick) 140 mg subcut Q2W #2 mL 06/13/23 [Rx Confirmed 07/17/23] nitroglycerin 0.4 mg sublingual tablet (Nitrostat) 0.4 mg sublingual Q5-15M PRN CHEST PAIN #25 tabs 06/13/23 [Rx Confirmed 07/17/23] cholecalciferol (vitamin D3) 25 mcg (1,000 unit) capsule 1,000 unit PO BID 06/14/23 [History Confirmed 07/17/23] acetaminophen 500 mg capsule 1,000 mg (2 x 500 mg) PO Q8H PRN PRN fever or pain #30 caps 06/15/23 [Rx Confirmed 07/17/23] vitamin B complex (B Complex-Vitamin B12 tablet) 1 tab PO DAILY 07/17/23 [History Confirmed 07/17/23] [facility] Medical History (Updated 07/17/23 @ 15:[address] Olegario Segal MD) Atherosclerotic heart disease of [place] coronary artery without angina pectoris (04/25/23) Essential hypertension History of coronary artery disease HLD (hyperlipidemia) Old myocardial infarction Presence of stent in coronary artery (04/25/23) Sigmoid diverticulitis Surgical History History of left heart catheterization (~12/2010) Presence of coronary angioplasty implant and graft (~06/19/10) Family History Grandfather , age 76 CVA (cerebral vascular accident) Social History Smoking Status: Former smoker how long ago did patient quit smokin alcohol intake: current alcohol intake frequency: 0-2 drinks per day Alcohol type: beer substance use type: does not use caffeine: Yes Type: coffee Number of servings: 2 what type of physical activity do you participate in: none seatbelt use: sometimes do you feel safe at home: Yes HPI HPI HPI: Patient is a 57-year-old male who presents for need to schedule diagnostic colonoscopy secondary to recent episode of diverticulitis. They are referred for surgical consultation from Dr. Henley. Patient has not had prior colonoscopy, but he has had 2 negative Cologuard tests. He confirms the EMR record that he was evaluated and admitted for a brief inpatient stay related to this diagnosis early last month. He shares that the pain just left this week. He shares that he may have had a slightly delayed presentation as he initially blamed his symptoms on adverse effects from statin therapy. He has a history of multiple coronary stents?the last of which were placed this past April. He says that he was loaded up on statins after the stents and figured that his lower abdominal pain was related to this medication change. He otherwise describes that he had very small bowel movements around the time of his flare but near constant cramping like he had to go . He denies any urinary changes. He confirms this was his first and only episode to date. He denies any associated fevers or chills. He shares that his big question around this diagnosis is why he has right-sided pain when he has been advised by others that his pain should be left-sided. Mr. Kenney generally describes his bowel habits as normal . They have approximately 3 per day (all in the morning) and spend roughly 1 minute on the toilet with only some significant straining. They have not noticed recent bleeding or dark stools. They do not regularly take fiber supplements, but he does share that he recently started taking enema supplement after he was convinced by an [facility] to trial this medication. He also shares that his reasoning for starting the medication included that it is his grand daughter's name. Patient has a family history of diverticulitis in his father. He denies any awareness of inflammatory bowel disease or colon cancer. The patient's weight is stable. The patient confirms that he is prescribed Plavix and has been on this medication for the last 15 years. He confirms that he has been off this medication for planned procedures, but suggest that he may be on this medication indefinitely given his history. Relevant prior abdominal surgical history includes: None Patient does have a significant history of GERD and heartburn. He initially downplays this symptom, but then admits to episodes at least once per week where he uses Tums and then baking soda if the Tums are not effective. Lastly Mr. Lamas shares that he has a past history of tobacco smoking with at least 30 pack years. ROS General General: No weight change, appetite, fatigue, colon cancer, breast cancer or weakness HEENT HEENT: No difficulty swallowing, eye injury, eye surgery, swollen glands or hoarseness Endo Endocrine: No thyroid disease, diabetes mellitus, thyroid cancer, Hair loss, heat intolerance or cold intolerance Skin Skin: No rash or changing moles Breast Breast: No left breast lump, right breast lump, nipple discharge, breast pain, abnormal mammogram, abnormal US or breast enlargement Musc Musculoskeletal: No back problems, arthritis, rheumatoid arthritis, gout or joint pain Cardio Cardiovascular: Yes heart disease, high blood pressure, heart attack and heart stent; No murmur, pacemaker, atrial fibrillation, palpitations, shortness of breat with exertion or chest pain Psych Psychiatric: No depression, anxiety or hearing voices Resp Respiratory: No shortness of breath, No sleep apnea, No cough, No COPD, No asthma, No emphysema and No wheezing Gastro Gastrointestinal: Yes abdominal pain, No nausea or vomiting, Yes diarrhea, No constipation, No blood in stool, No acid reflux, No hemorrhoids, No ulcers, No gallbladder problem and No black,tarry stools Anthony Hematologic: Yes blood thinners, No blood disorders, No bleeding, No anemia and No blood clots Neuro Neurologic: No system reviewed and no additional complaints, except as documented, No as per HPI, No abnormal gait, No abnormal hearing, No abnormal movements, No abnormal speech, No behavioral changes, No burning sensations, No confusion, No convulsions, No disequilibrium, No dizziness, No localized weakness, No frequent falls, No headache(s), No lack of coordination, No loss of vision, No memory loss, Yes numbness, No other visual disturbances, No radicular pain, No restless legs, No sensory deficit, No syncope, Yes tingling, No tremor(s), No weakness and No other Exam Const General: cooperative and comfortable Orientation: alert, awake and oriented x3 Resp Effort & Inspection: normal respiratory effort GI Other: No scars, soft, nondistended, minimally tender to palpation along the right lower quadrant?otherwise unremarkable Assessment and Plan Assessment and Plan (1) Sigmoid diverticulitis: Status: Acute Comment: This is a 57-year-old male who presents for recent hospital follow-up of management of uncomplicated diverticulitis. As confirmed with patient this represents his first episode of diverticulitis. He also confirms that he is no longer symptomatic as of this week. Overall his exam is consistent with this report. I discussed with him the general natural history of diverticulitis and suggested that prediction of future recurrences is challenging. I did share with him that his initial presentation as a uncomplicated diagnosis is a positive. I suggested that one of the better means of preventing a recurrence is to minimize experiences of constipation. I reviewed with him his CT imaging which explains why he experienced right?sided symptoms. Per this imaging he has a redundant sigmoid colon and it was right at the turning point in his sigmoid colon where he had maximal inflammation. With all of this, I do agree that proceeding with a diagnostic colonoscopy is in order. I shared with him that occasionally colon cancer can masquerade as diverticulitis and that it is best that we proceed with a direct exam. He confirms understanding and wishes to proceed as recommended Plan: Plan will be to complete colonoscopy on first mutually agreeable date under local MAC. Pre-procedure prep (2-day) discussed and paper instructions provided. Patient is also made aware that he will need to have a car driver with him the day of the procedure. We will need to obtain clearance from cardiology to hold his Plavix for 5 days pre-? procedure. Given the recency of his stents this may affect the scheduling. (2) GERD (gastroesophageal reflux disease): Status: Acute Comment: Patient is a 57-year-old, , male with a past history of tobacco use including a 30-year pack year history who has at least weekly experiences of gastroesophageal reflux disease and heartburn. Given these demographic features and this medical history, I have shared with Mr. Kenney that we should consider possible Edan's screening EGD. After explanation he confirms an understanding of this rationale and agrees to proceed as recommended. Plan: Plan for concurrent EGD with above colonoscopy to perform screening for Dean's esophagus I have examined the patient the following changes are noted: Mr. Kenney confirms that he has had complete resolution of his abdominal pain. His bowel habits have returned to normal. He shares that his reflux remains stable in frequency is approximately 1 episode per week. He also confirms that he has completed his prep in anticipation of today's procedure and that his output is now clear. Lastly he confirms that he has held his scratch that Plavix for 6 days prior to today's procedure. Will now proceed to endoscopy suite for upper and lower endoscopy as discussed in greater detail above.
--- NOTE | 2023-10-02 07:30 | IMM_PTH ---
PATHOLOGY RESULTS PATIENT: JOVANY MUÑIZ LOC: EN U#:[id number] AGE/SX: 58/M ROOM: RE10/02/[address]: Dr. Olegario Segal MD : 1965 BED: DIS: 10/02/2023 SPEC #: [id number] RECD: 10/02/23 13:54 STATUS: ASHLEY REDex #: [id number] NICOL: 10/02/23 07:[address]: Olegario Segal DEPT: IMMUNOHISTOCHEMISTRY RECD BY: Lexii Grant ENTERED: 10/02/23 14:01 SP TYPE: IMMUNO OTHR DR: Dr. Eduard Henley MD Tissues: Stomach, NOS Gastric mucous membrane Procedures: H Pylori (initial) P53 (initial) KI-67 (add) PHYSICIAN & INSTITUTION [place] [id number] SPECIMEN INFORMATION: Tissue Source: B - Antrum, D - GE junction Clinical Info: Sigmoid diverticulitis, GERD Specimen Number: [id number] B & D CPT code: 47210 x2, 13016 METHODOLOGY: Deparaffinized sections of prefer/formalin-fixed tissue or PAP/DQ stained slides are incubated with monoclonal/polyclonal antibodies/oligonucleotide probes. Localization is made via biotin free immunoperoxidase method. Appropriate controls are performed and reacted as expected. Results on target cell population are indicated in the following table: RESULTS: ANTIBODY / CLONE RESULT Block B H Pylori (polyclonal) negative Block D P53 (DO-7) negative, null pattern Ki-67 (30-9) positive, low These tests were developed and their performance characteristics determined by [facility]. They may not have been cleared or approved by the U.S. Food and Drug Administration. The FDA has determined that such clearance or approval is not necessary. The above immunohistochemical/dualISH markers are ordered and reviewed by the Pathologist. INTERPRETATION: B. Antrum, biopsy: Negative for Helicobacter pylori organisms. D. Gastroesophageal junction, biopsy: No evidence of dysplasia. AM:ramana 10/06/2023
--- NOTE | 2023-10-02 07:30 | COLBX_PTH ---
PATHOLOGY RESULTS PATIENT: JOVANY MUÑIZ LOC: EN U#:[id number] AGE/SX: 58/M ROOM: RE10/02/[address]: Dr. Olegario Segal MD : 1965 BED: DIS: 10/02/2023 SPEC #: [id number] RECD: 10/02/23 10:41 STATUS: ASHLEY RENTERIA #: [id number] NICOL: 10/02/23 07:[address]: Olegario Segal DEPT: SURGICAL PATHOLOGY RECD BY: Dianne Carrera ENTERED: 10/02/23 10:42 SP TYPE: COLON BX OTHR DR: Dr. Eduard Henley MD Tissues: Pyloric portion of stomach Gastric mucous membrane Gastric mucous membrane Esophageal mucous membrane Esophagus, NOS Procedures: Special Stain Group II Surgery Specimen Level IV Surgery Specimen Level V Alcian Blue/PAS (control) HEADER OPERATION: Colonoscopy, EGD with biopsies PRE-OP DIAGNOSIS: Sigmoid diverticulitis, GERD TISSUE SUBMITTED: A - Pyloric nodule biopsy for histology, B - Antrum biopsy for H. pylori and path, C - Mucosal biopsy in cardia region, D - Gastroesophageal junction biopsy, E - Mid esophagus plaque biopsy MICROSCOPIC DIAGNOSIS A. Pyloric nodule, biopsy: Fragments of gastric mucosa with mild chronic inflammation. B. Gastric antrum, biopsy: Mild chronic gastritis. See comment. C. Gastric cardia, biopsy: Mild chronic inflammation. D. Gastroesophageal junction, biopsy: Mild chronic inflammation. Focal changes of reflux. 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 No evidence of dysplasia. See comment. E. Mid esophagus plaque, biopsy: Fragments of benign squamous mucosa. No evidence of inflammation. AM:ramana 10/03/2023 COMMENT B. The results of immunohistochemistry for Helicobacter pylori will be reported separately ([id number]). D. Immunohistochemistry ([id number]) for P53 and Ki-67 will be performed and results will be reported separately. Alcian blue/PAS stain with matched control supports the above diagnosis. MICROSCOPIC DESCRIPTION Slides are reviewed. GROSS DESCRIPTION A - Received in fixative is one container labeled with the patient's name and designated pyloric nodule biopsy. The specimen consists of two irregular fragments of light huang soft tissue that in aggregate measure 0.6 x 0.3 x 0.1 cm. The specimen is totally submitted in one cassette. B - Received in fixative is one container labeled with the patient's name and designated antrum biopsy. The specimen consists of multiple irregular fragments of light huang soft tissue that in aggregate measure 0.6 x 0.2 x 0.1 cm. The specimen is totally submitted in one cassette. C - Received in fixative is one container labeled with the patient's name and designated mucosal biopsy in cardia region. The specimen consists of one irregular fragment of light huang soft tissue that measures 0.4 x 0.3 x 0.1 cm. The specimen is totally submitted in one cassette. D - Received in fixative is one container labeled with the patient's name and designated GE junction biopsy. The specimen consists of multiple irregular fragments of light huang soft tissue that in aggregate measure 0.6 x 0.6 x 0.1 cm. The specimen is totally submitted in one cassette. E - Received in fixative is one container labeled with the patient's name and designated mid esophagus plaque biopsy. The specimen consists of two irregular fragments of light huang soft tissue that in aggregate measure 0.3 x 0.3 x 0.1 cm. The specimen is totally submitted in one cassette. / YIN:ramana 10/02/2023 TC:3 CPT: 52815 x5, 21569
[2023-10-02 08:30] VITALS: BP 107/74; BP 134/81; PULSE 89; RESP 16; TEMP 37; O2SAT 98
[2023-10-02 08:35] VITALS: BP 113/79; BP 134/81; PULSE 86; RESP 16; O2SAT 97
--- NOTE | 2023-10-02 08:37 | OP.CCLET_ITS ---
10/02/2023 Seregi Henley [address] [place] [address] Re : Upper GI endoscopy procedure for Ramsey Kenney Dear Dr. Henley This procedure was performed on September. My impressions and recommendations are as follows: Impressions : - No gross lesions in the entire examined duodenum. No specimens collected. - A single mucosal papule (nodule) found in the stomach. Biopsied. - Erythematous mucosa in the antrum. Biopsied. - Gastric mucosal variant. Biopsied. - Gastroesophageal flap valve classified as Hill Grade II (fold present, opens with respiration). No specimens collected. - Z-line irregular, 43 cm from the incisors. Biopsied. - Multiple plaques in the middle third of the esophagus. Biopsied. - Tortuous esophagus. No specimens collected. Recommendations : - Discharge patient to home (via wheelchair). - Resume previous diet today. - Use Protonix (pantoprazole) 40 mg PO daily today. - Await pathology results. - Telephone my office for pathology results in 1 week. - Post-Procedure Resumption of Antiplatelet Medications: Restart Plavix (clopidogrel) in 2 days 75 mg PO daily. Refer to managing physician for further adjustment of therapy. My findings are described in the full procedure note, which is enclosed. If I can be of further assistance, please feel free to contact me at Doctor phone number(s): , Work: . Sincerely, Olegario Segal MD 10/02/2023 8:36:40 AM This report has been signed electronically.
--- NOTE | 2023-10-02 08:37 | OP.EGD_ITS ---
Patient Name: Ramsey Kenney Procedure Date: 10/02/2023 7:14 AM Date of : 1965 Age: 58 Procedure: Upper GI endoscopy Indications: Screening for Dean's esophagus in patient at risk for this condition Providers: Olegario Segal MD Referring MD: Olegario Segal MD Medicines: See the Anesthesia note for documentation of the administered medications Patient Profile: Refer to note in patient chart for documentation of history and physical. Complications: No immediate complications. Estimated blood loss: Minimal. Procedure: Pre-Anesthesia Assessment: - The heart rate, respiratory rate, oxygen saturations, blood pressure, adequacy of pulmonary ventilation, and response to care were monitored throughout the procedure. After obtaining informed consent, the endoscope was passed under direct vision. Throughout the procedure, the patient's blood pressure, pulse, and oxygen saturations were monitored continuously. The Colonoscope was introduced through the mouth, and advanced to the third part of duodenum. The upper GI endoscopy was accomplished without difficulty. The patient tolerated the procedure well. Scope In: 7:39:34 AM Scope Out: 7:57:56 AM Total Procedure Duration Time 0 hours 18 minutes 22 seconds Findings: No gross lesions were noted in the entire examined duodenum. No biopsies or other specimens were collected for this exam. A single 3 mm mucosal papule (nodule) with no bleeding and no stigmata of recent bleeding was found at the pylorus. Biopsies were taken with a cold forceps for histology. Estimated blood loss was minimal. Localized mildly erythematous mucosa without bleeding was found in the gastric antrum. Biopsies were taken with a cold forceps for Helicobacter pylori testing. Estimated blood loss was minimal. Localized mild mucosal variance characterized by longitudinal markings was found in the cardia. Biopsies were taken with a cold forceps for histology. The gastroesophageal flap valve was visualized endoscopically and classified as Hill Grade II (fold present, opens with respiration). No biopsies or other specimens were collected for this exam. The Z-line was irregular and was found 43 cm from the incisors. Biopsies were taken with a cold forceps for histology. Estimated blood loss was minimal. Multiple 5 mm plaques were found in the middle third of the esophagus. Biopsies were taken with a cold forceps for histology. The lower third of the esophagus was moderately tortuous. No biopsies or other specimens were collected for this exam. Impression: - No gross lesions in the entire examined duodenum. No specimens collected. - A single mucosal papule (nodule) found in the stomach. Biopsied. - Erythematous mucosa in the antrum. Biopsied. - Gastric mucosal variant. Biopsied. - Gastroesophageal flap valve classified as Hill Grade II (fold present, opens with respiration). No specimens collected. - Z-line irregular, 43 cm from the incisors. Biopsied. - Multiple plaques in the middle third of the esophagus. Biopsied. - Tortuous esophagus. No specimens collected. Recommendation: - Discharge patient to home (via wheelchair). - Resume previous diet today. - Use Protonix (pantoprazole) 40 mg PO daily today. - Await pathology results. - Telephone my office for pathology results in 1 week. - Post-Procedure Resumption of Antiplatelet Medications: Restart Plavix (clopidogrel) in 2 days 75 mg PO daily. Refer to managing physician for further adjustment of therapy. Procedure Code(s): --- Professional --- 97178, Esophagogastroduodenoscopy, flexible, transoral; with biopsy, single or multiple Diagnosis Code(s): --- Professional --- K31.89, Other diseases of stomach and duodenum K22.89, Other specified disease of esophagus Q39.9, Congenital malformation of esophagus, unspecified Z13.810, Encounter for screening for upper gastrointestinal disorder CPT copyright 2021 [employer]. All rights reserved. The codes documented in this report are preliminary and upon medical records coder review may be revised to meet current compliance requirements. Olegario Segal MD 10/02/2023 8:36:40 AM This report has been signed electronically. Number of Addenda: 0 Note Initiated On: 10/02/2023 7:14 AM
[2023-10-02 08:40] VITALS: BP 119/85; BP 134/81; PULSE 80; RESP 16; O2SAT 100
--- NOTE | 2023-10-02 08:42 | OP.CCLET_ITS ---
10/02/2023 Sergei Henley [address] [place] [address] Re : Colonoscopy procedure for Ramsey Kenney Dear Dr. Henley This procedure was performed on September. My impressions and recommendations are as follows: Impressions : - Diverticulosis in the sigmoid colon. No specimens collected. - Internal hemorrhoids. No specimens collected. Recommendations : - Repeat colonoscopy in 10 years for screening purposes. - Telephone my office for study results in 1 week. - Post-Procedure Resumption of Antiplatelet Medications: Restart Plavix (clopidogrel) in 2 days 75 mg PO daily. Refer to managing physician for further adjustment of therapy. My findings are described in the full procedure note, which is enclosed. If I can be of further assistance, please feel free to contact me at Doctor phone number(s): , Work: . Sincerely, Olegario Segal MD 10/02/2023 8:42:13 AM This report has been signed electronically.
--- NOTE | 2023-10-02 08:42 | OP.COLON_ITS ---
Patient Name: Ramsey Kenney Procedure Date: 10/02/2023 7:58 AM Date of : 1965 Age: 58 Procedure: Colonoscopy Indications: Follow-up of diverticulitis Providers: Olegario Segal MD Referring MD: Olegario Segal MD Medicines: See the Anesthesia note for documentation of the administered medications Patient Profile: Refer to note in patient chart for documentation of history and physical. Last Colonoscopy: none. The patient's first colonoscopy is today. Complications: Asystole Procedure: Pre-Anesthesia Assessment: - The heart rate, respiratory rate, oxygen saturations, blood pressure, adequacy of pulmonary ventilation, and response to care were monitored throughout the procedure. After I obtained informed consent, the scope was passed under direct vision. Throughout the procedure, the patient's blood pressure, pulse, and oxygen saturations were monitored continuously. The Colonoscope was introduced through the anus and advanced to the cecum, identified by appendiceal orifice and ileocecal valve. The Colonoscope was introduced through the and advanced to. The colonoscopy was performed without difficulty. The patient tolerated the procedure fairly well. The quality of the bowel preparation was adequate to identify polyps greater than 5 mm in size. Scope In: 8:00:08 AM Scope Withdrawal Time 0 hours 12 minutes 32 seconds Scope Out: 8:22:45 AM Total Procedure Duration Time 0 hours 22 minutes 37 seconds Findings: The perianal and digital rectal examinations were normal. Many small and large-mouthed diverticula were found in the sigmoid colon. No biopsies or other specimens were collected for this exam. Internal hemorrhoids were found during retroflexion. The hemorrhoids were Grade I (internal hemorrhoids that do not prolapse). No biopsies or other specimens were collected for this exam. Impression: - Diverticulosis in the sigmoid colon. No specimens collected. - Internal hemorrhoids. No specimens collected. Recommendation: - Repeat colonoscopy in 10 years for screening purposes. - Telephone my office for study results in 1 week. - Post-Procedure Resumption of Antiplatelet Medications: Restart Plavix (clopidogrel) in 2 days 75 mg PO daily. Refer to managing physician for further adjustment of therapy. Procedure Code(s): --- Professional --- 48634, Colonoscopy, flexible; diagnostic, including collection of specimen(s) by brushing or washing, when performed (separate procedure) Diagnosis Code(s): --- Professional --- K64.0, First degree hemorrhoids K57.32, Diverticulitis of large intestine without perforation or abscess without bleeding K57.30, Diverticulosis of large intestine without perforation or abscess without bleeding CPT copyright 2021 [employer]. All rights reserved. The codes documented in this report are preliminary and upon death claim clerk review may be revised to meet current compliance requirements. Olegario Segal MD 10/02/2023 8:42:13 AM This report has been signed electronically. Number of Addenda: 0 Note Initiated On: 10/02/2023 7:58 AM
[2023-10-02 08:45] VITALS: BP 117/84; BP 134/81; PULSE 83; RESP 18; TEMP 37; O2SAT 97
[2023-10-02 09:00] VITALS: BP 134/81
== END 2023-10-02 09:15 | disposition home or self-care (01) ==
LOC: EN 06:27 → AC 06:28
PROVIDERS: PCP Family Medicine; Referring Provider Surgery; Visit Provider Surgery
PROC: 0DJD8ZZ Inspection of Lower Intestinal Tract, Via Natural or Artificial Opening Endoscopic (ICD-10-PCS; CPT 45378; principal; 2023-10-02 07:25)
DX: K57.32 Diverticulitis of large intestine without perforation or abscess without bleeding (principal); K22.70 Barrett's esophagus without dysplasia; K29.50 Unspecified chronic gastritis without bleeding; K64.0 First degree hemorrhoids; K21.9 Gastro-esophageal reflux disease without esophagitis; I25.10 Atherosclerotic heart disease of native coronary artery without angina pectoris; Q39.8 Other congenital malformations of esophagus; E78.00 Pure hypercholesterolemia, unspecified; I10 Essential (primary) hypertension; I25.2 Old myocardial infarction; Z95.5 Presence of coronary angioplasty implant and graft; Z79.02 Long term (current) use of antithrombotics/antiplatelets; Z79.82 Long term (current) use of aspirin; Z79.899 Other long term (current) drug therapy; Z87.891 Personal history of nicotine dependence; Z83.79 Family history of other diseases of the digestive system
CPT/HCPCS: 45378; 43239; 88305; 88307; 88313; 88341; 88342; J7120; J2405

== ENCOUNTER 2024-09-03 00:22 | Emergency (ER) | payer OTHER, SELFPAY ==
[2024-09-03 00:23] VITALS: BP 178/117; PULSE 99; RESP 24; TEMP 36.6; O2SAT 99; BMI 28.6
--- NOTE | 2024-09-03 00:29 | EKG12_ITS ---
Test Reason : CP Blood Pressure : */* mmHG Vent. Rate : 94 BPM Atrial Rate : 94 BPM P-R Int : 158 ms QRS Dur : 98 ms QT Int : 364 ms P-R-T Axes : 92 -28 28 degrees QTcB Int : 455 ms Normal sinus rhythm Cannot rule out Inferior infarct (cited on or before 25-Apr-2023) Abnormal ECG Confirmed by LJ SY, GUANAKO ([id number]), assignment editor RUBI ROMERO ([id number]) on 09/07/2024 7:16:39 AM Referred By: TB Confirmed By: GUANAKO CALHOUN MD
--- NOTE | 2024-09-03 00:29 | RAD_ITS ---
STUDY: X-RAY CHEST REASON FOR EXAM: Male, 58 years old patient with chest pain. TECHNIQUE: PA and lateral views of the chest. COMPARISON: April 23, 2023. FINDINGS: Cardiac monitoring leads are present. The lungs are clear and expanded. There is no demonstrated pleural abnormality. Normal size heart. Normal mediastinum and verona. Normal visualized pulmonary arteries. Normal visualized aortic arch and descending thoracic aorta. There are diffuse degenerative changes of the visualized thoracic spine. Normal visualized ribs, clavicles, and shoulders. There is no demonstrated abnormality of the visualized soft tissue structures of the upper abdomen. RAD/Chest PA and Lateral IMPRESSION: No radiographic evidence of acute cardiopulmonary disease. Electronically Signed: Layne Suh MD at 1:46 EST ,
--- NOTE | 2024-09-03 00:37 | ED.VIS.CHEST ---
HPI History of Present Illness Chief Complaint: Chest Pain Narrative Narrative: Patient is a 58-year-old male with past medical history of hypercholesteremia, GERD, hyperlipidemia, CAD status post stent May 2024 who presents to the emergency department chief complaint of chest pain and palpitations. Patient states that around 9:00 this evening he noted that his heart was racing and he developed chest discomfort. He states that he checked his blood pressure and it was elevated. He states that he attempted to take hot shower which originally made him feel better and he was able to go to sleep. He states that he woke up around 11 PM this evening and once again was not feeling right checked his blood pressure and was noted to be elevated therefore he came here further evaluation management. Patient states that he did take nitro prior to arrival and states that this did not help his chest discomfort. Patient states that he did take 2 aspirin prior to arrival here. Patient states that when this all started he was attempting to unfreeze his daughter's pipe at their trailer but was not do anything strenuous. Patient states that he saw his printed circuit board panels developer the day after Gisela and the checkup went well. [facility] Medical History Wears partial dentures High cholesterol Heartburn Gastric reflux History of diverticulitis Former smoker History of heart attack History of echocardiogram History of stress test Hypertension Cardiology follow-up encounter Sigmoid diverticulitis History of coronary artery disease Presence of stent in coronary artery (04/25/23) Essential hypertension HLD (hyperlipidemia) Old myocardial infarction Atherosclerotic heart disease of [place] coronary artery without angina pectoris (04/25/23) Home Medications ?Medication ?Instructions ?Recorded ?Last Taken ?Type aspirin 81 mg tablet,delayed 81 mg PO QDAY [facility] 08/06/17 09/26/23 History release (Adult Low Dose Aspirin) cetirizine 10 mg tablet 10 mg PO DAILY PRN allergy symptoms 05/20/23 Unknown History nitroglycerin 0.4 mg sublingual 0.4 mg sublingual Q5-15M PRN CHEST 06/13/23 Unknown Rx tablet (Nitrostat) PAIN #25 tabs acetaminophen 500 mg capsule 1,000 mg (2 x 500 mg) PO Q8H PRN 06/15/23 10/01/23 Rx PRN fever or pain #30 caps clopidogrel 75 mg tablet (Plavix) 75 mg PO QDAY #90 tabs 07/20/24 Unknown Rx losartan 50 mg tablet 100 mg PO DAILY 08/06/24 Unknown History pantoprazole 40 mg tablet,delayed 20 mg PO DAILY 08/06/24 Unknown History release pitavastatin calcium 1 mg tablet 1 mg PO QDAY 08/06/24 Unknown History Allergy/AdvReac Type Severity Reaction Status Date / Time No Known Allergies Allergy Verified 09/03/24 00:23 Family History Grandfather , age 76 CVA (cerebral vascular accident) Surgical History History of coronary artery stent placement History of cardiac catheterization Presence of coronary angioplasty implant and graft (04/25/23) History of left heart catheterization (~12/2010) Social History Smoking Status: Former smoker how long ago did patient quit smokin alcohol intake: current alcohol intake frequency: 0-2 drinks per day Alcohol type: beer substance use type: does not use caffeine: Yes Type: coffee Number of servings: 2 what type of physical activity do you participate in: none seatbelt use: sometimes do you feel safe at home: Yes ROS ROS ED ROS Narrative Constitutional: Denies any fevers, chills, headaches, lightheadedness, dizziness Eyes: Denies change in vision double vision blurry vision Cardiovascular: Complains of chest discomfort as noted above denies palpitations currently Respiratory: Denies coughing wheezing shortness of breath Abdomen: Denies abdominal pain nausea vomiting diarrhea currently : Denies any urinary symptoms Neurological: Denies numbness, weakness, tingling Musculoskeletal: Denies back pain Skin: Denies any rashes or lesions EXAM Physical Exam Narrative Exam Narrative: General: Patient was lying in bed rest comfortably did not appear to be acute distress Head: Atraumatic, normocephalic Eyes: PERRL bilaterally, EOMI bilaterally, no conjunctival injection noted Neck: Soft, supple, trachea midline Cardiovascular: Regular rate and rhythm no murmurs gallops rubs noted Respiratory: Clear to auscultation bilaterally no rales rhonchi or wheezes noted Abdomen: Soft, nondistended, nontender to palpation, bowel sounds present x 4 Extremities: +5/5 strength noted in the bilateral upper and lower extremities, radial pulses +2/4 in the bilateral extremities, no pedal edema on exam Neurological: Patient following commands knew that he was at [facility] year is 2024 Skin: Warm, dry, intact no rashes or lesions noted Const Vital Signs: 09/03/24 00:23 09/03/24 00:26 09/03/24 00:37 Temperature 98 F Temperature Source Oral Pulse Rate 99 Respiratory Rate 24 H Respiratory Effort Normal Blood Pressure 178/117 H Blood Pressure Mean 137 Pulse Ox 99 Oxygen Delivery Method Room Air Room Air 09/03/24 01:23 09/03/24 02:00 09/03/24 03:00 Temperature Temperature Source Pulse Rate 81 75 79 Respiratory Rate 12 16 18 Respiratory Effort Blood Pressure 144/91 H 150/105 H 140/89 H Blood Pressure Mean 108 120 106 Pulse Ox 97 99 97 Oxygen Delivery Method Room Air Room Air Room Air MDM MDM MDM Narrative Medical decision making narrative: Patient is a 58-year-old male who presented to the emerged part with a chief complaint of chest tightness and palpitations earlier this evening. Patient also is complaining of elevated blood pressure. On the differential diagnose includes but not limited to hypertensive emergency, hypertension, flash pulmonary edema, ACS. Once workup is obtained reviewed he will be reevaluated. Patient has noted be hypertensive here in the emergency department however his blood pressure slowly returning to baseline he is not tachycardic and his heart rate is in sinus rhythm. Patient will be given the remainder of the 325 mg of aspirin. Patient CBC reviewed and showed no evidence leukocytosis white blood count was 95.7, hemoglobin 13.4, plate count was noted to be 236. Patient sodium was 130, potassium normal at 3.8, creatinine normal at 1.29. Patient's magnesium level was 2.4. Patient's troponin was noted to be normal at 5 with a delta troponin obtained and normal at 6. Patient's EKG reviewed and independently interpreted by myself showed sinus rhythm with a rate of 94 beats per minutes patient's EKG was compared to a EKG on 04/23/2023 which was largely unchanged. Patient's chest x-ray reviewed by myself and by radiology showed no acute cardiopulmonary processes. I did add on a D-dimer to the workup which was normal at 0.44. Patient ambulated well here in the emergency department felt his normal self had no evidence hypoxia. Patient blood pressure has improved to a 140/89. I did review the patient's previous notes from his cardiology office visit on 08/06/2024 which once again showed that he had a stent placed where his other stent was to relieve a area of critical stenosis in the LAD. Did note that at the next office visit they will plan on obtaining a stress test. I called and discussed case with on-call printed circuit board panels developer Dr. Ray and he believes that he can follow-up in the outpatient setting with his printed circuit board panels developer as well as primary care physician. Once again the patient's pain did not get better with nitroglycerin. Advised the patient to keep a blood pressure log by randomly taking his blood pressure 2-3 times a day and write this down and take this to his appointment and to see if he needs to have his blood pressure medication adjusted. He was encouraged to return with worsening symptoms or any concerns. He is agreeable this plan as well as significant other bedside. He would like to go home at this point time all question concerns he is discharged home in stable condition. Lab Data Labs: Laboratory Results - last 24 hr 09/03/24 09/03/24 09/03/24 00:30 02:21 03:12 WBC 5.7 RBC 4.06 L Hgb 13.4 Hct 39.8 L MCV 98.0 H MCH 33.0 H MCHC 33.7 RDW Std Deviation 47.3 H RDW Coeff of Leticia 13.2 Plt Count 236 MPV 10.0 Immature Gran % (Auto) 0.500 Neut % (Auto) 53.8 Lymph % (Auto) 30.3 Beauregard % (Auto) 10.9 H Eos % (Auto) 3.3 Baso % (Auto) 1.2 H Absolute Neuts (auto) 3.1 Absolute Lymphs (auto) 1.72 Nucleated RBC % 0 D-Dimer Quant (PE/DVT) 0.44 Sodium 138 Potassium 3.8 Chloride 104 Carbon Dioxide 26.0 Anion Gap 8 BUN 18 Creatinine 1.29 Estim Creat Clear Calc 73.11 Est GFR (MDRD) Af Amer 73 Est GFR (MDRD) Non-Af 60 BUN/Creatinine Ratio 14.0 Glucose 102 Calcium 9.3 Magnesium 2.4 Troponin I High Sens 5 6 B-Natriuretic Peptide 7.1 TSH 2.110 Radiography Diagnostic Testing: Clinical Impression(s) from Imaging Studies Chest X-Ray 09/03/24 00:29 IMPRESSION: No radiographic evidence of acute cardiopulmonary disease. Electronically Signed: Layne Suh MD at 1:46 EST Reading Location ID and State: [address] [place] [address] , Service support , Discharge Plan Triage Chief Complaint: Chest Pain ED Provider: Jesus Romero Dx/Rx/DC Orders Clinical Impression: Chest pain, Essential hypertension Prescriptions: No Action aspirin [Adult Low Dose Aspirin] 81 mg tablet,delayed release (DR/EC) 81 mg PO QDAY cetirizine 10 mg tablet 10 mg PO DAILY PRN (Reason: allergy symptoms) pantoprazole 40 mg tablet,delayed release (DR/EC) 20 mg PO DAILY Rx Instructions: Take one tablet by mouth daily pitavastatin calcium 1 mg tablet 1 mg PO QDAY acetaminophen 500 mg capsule 1,000 mg PO Q8H PRN PRN (Reason: fever or pain) Qty: 30 0RF losartan 50 mg tablet 100 mg PO DAILY nitroglycerin [Nitrostat] 0.4 mg tablet, sublingual 0.4 mg SUBLINGUAL Q5-15M PRN (Reason: CHEST PAIN) Qty: 25 3RF clopidogrel [Plavix] 75 mg tablet 75 mg PO QDAY Qty: 90 3RF Primary Care Provider: Eduard Henley Referrals: Eduard Henley MD [Primary Care Provider] - Activity Restrictions/Additional Instructions: Follow-up with your primary care physician outpatient setting. Follow-up with your printed circuit board panels developer in the outpatient setting. Keep a blood pressure log as we discussed here by randomly writing the blood pressure down 2-3 times a day and take this to your scheduled appointment for them to review and to see if they need to increase your medication or add a second blood pressure medication. Return with worsening symptoms or any concerns. Print Language: [place] Disposition Disposition: Home, Self Care
[2024-09-03 00:39] LABS: Absolute Lymphocyte Count 1.72 X10^3/uL (0.83-4.51); Absolute Neutrophil Count 3.1 X10^3/uL (2.0-7.7); Basophil# 0.07 X10^3/uL; Basophil% 1.2 % (0-1); Eosinophil# 0.19 X10^3/uL; Eosinophils% 3.3 % (0-5); Hematocrit 39.8 % (40-54); Hemoglobin 13.4 g/dL (13.0-16.5); Lymphocyte # 1.72 X10^3/ul (0.83-4.51); Lymphocyte % 30.3 % (19-41); Mean Corp Hgb Conc 33.7 g/dL (32-36); Monocyte# 0.62 X10^3/uL; Monocyte% 10.9 % (0-10); NRBC Flagged by Analyzer 0 % (0-5); Neutrophil # 3.05 X10^3/uL (2.7-7.7); Neutrophil % 53.8 % (47-70); Platelet Count 236 K/mm3 (150-450); RBC Distribution Width CV 13.2 % (11.6-14.6); RBC Distribution Width SD 47.3 fl (35.1-43.9); Red Blood Count 4.06 M/mm3 (4.6-6.2); White Blood Count 5.7 K/mm3 (4.4-11.0)
[2024-09-03] MEDS: Aspirin 81 MG TAB.CHEW 162 MG PO (00:48)
[2024-09-03 01:04] LABS: Anion Gap 8 (5-15); BUN 18 mg/dL (7-18); Calcium,Total 9.3 mg/dL (8.5-10.1); Chloride 104 mmol/L (98-107); Creatinine, Serum 1.29 mg/dL (0.70-1.30); EST Glomerular Filtration Rate 60 mL/min (>60); Est Glom Filt Rate - Afr Amer 73 mL/min (>60); Estimated Creatinine Clearance 73.11 ml/min; Glucose 102 mg/dL (74-106); Magnesium 2.4 mg/dL (1.6-2.6); Potassium 3.8 mmol/L (3.5-5.1); Sodium Level 138 mmol/L (136-145); Troponin-I HS (w/2H Reflex) 5 pg/mL (3.0-78.0)
[2024-09-03 01:05] LABS: BNP,B-Type NATRIURETIC PEPTIDE 7.1 pg/mL (0-100)
[2024-09-03 01:23] VITALS: BP 144/91; PULSE 81; RESP 12; O2SAT 97
[2024-09-03 02:00] VITALS: BP 150/105; PULSE 75; RESP 16; O2SAT 99
[2024-09-03 02:24] LABS: Reflex Troponin-HS? (from REC) Y
[2024-09-03 02:40] VITALS: O2SAT 96
[2024-09-03 02:47] LABS: Troponin-I HS 6 pg/mL (3.0-78.0)
[2024-09-03 03:00] VITALS: BP 140/89; PULSE 79; RESP 18; O2SAT 97
[2024-09-03 03:34] LABS: D-Dimer Quantitative (DVT/PE) 0.44 FEU/ug/m (0.27-0.49)
[2024-09-03 03:53] VITALS: BP 145/100; PULSE 86; RESP 18; TEMP 36.7; O2SAT 98
== END 2024-09-03 03:55 | disposition home or self-care (01) ==
PROVIDERS: Emergency Provider Emergency Medicine; PCP Family Medicine; Visit Provider Emergency Medicine
DX: R07.89 Other chest pain (principal); I10 Essential (primary) hypertension; E78.00 Pure hypercholesterolemia, unspecified; I25.10 Atherosclerotic heart disease of native coronary artery without angina pectoris; I25.2 Old myocardial infarction; Z95.5 Presence of coronary angioplasty implant and graft; Z79.02 Long term (current) use of antithrombotics/antiplatelets; Z79.82 Long term (current) use of aspirin; Z79.899 Other long term (current) drug therapy; Z87.891 Personal history of nicotine dependence
CPT/HCPCS: 71046; 80048; 83735; 83880; 84443; 84484; 85025; 85379; 87631; 93005; 99284; A4216

== ENCOUNTER → 2024-09-03 | Outpatient (CLI) | payer OTHER, SELFPAY | END | disposition home or self-care (01) | LOC: CVS 01:39 | PROVIDERS: PCP Family Medicine; Referring Provider Specialist; Visit Provider Specialist | DX: R00.2 Palpitations (principal) | CPT/HCPCS: 93225; 93226 ==

== ENCOUNTER → 2024-09-28 | Outpatient (CLI) | payer OTHER, SELFPAY ==
[2024-09-28 11:04] LABS: ALB/GLOB Ratio 0.8 RATIO (0.9-2.4); AST(SGOT) 29 U/L (15-37); Alanine Aminotransfer ALT/SGPT 38 U/L (16-61); Albumin, Serum 3.7 g/dL (3.2-5.0); Alkaline Phosphatase 66 U/L (45-117); Anion Gap 5 (5-15); BUN 18 mg/dL (7-18); Calcium,Total 9.9 mg/dL (8.5-10.1); Chloride 104 mmol/L (98-107); Cholesterol 245 mg/dL (200); EST Glomerular Filtration Rate 65 mL/min (>60); Est Glom Filt Rate - Afr Amer 79 mL/min (>60); Globulin 4.8 g/dL (2.2-4.2); Glucose 105 mg/dL (74-106); High Density Lipoprotein 81 mg/dL; PSA,Total - Annual Screen 0.78 ng/mL (0.00-4.00); Potassium 4.4 mmol/L (3.5-5.1); Protein, Total 8.5 g/dL (6.4-8.2); Sodium Level 138 mmol/L (136-145); Triglycerides 101 mg/dL; Very Low Density Lipoprotein 20 mg/dL (5-40)
[2024-09-28 14:56] LABS: Vitamin B12 337 pg/mL (211-911)
[2024-09-30 15:30] LABS: Vitamin D,25 Hydroxy 35.3 ng/mL
== END | disposition home or self-care (01) ==
LOC: MFPLAB 08:20
PROVIDERS: PCP Family Medicine; Referring Provider Family Medicine; Visit Provider Family Medicine
DX: E53.9 Vitamin B deficiency, unspecified (principal); E78.5 Hyperlipidemia, unspecified; Z12.5 Encounter for screening for malignant neoplasm of prostate; R79.89 Other specified abnormal findings of blood chemistry
CPT/HCPCS: 36415; 80053; 80061; 82306; 82607; 84153; G0103

== ENCOUNTER → 2024-11-03 | Outpatient (CLI) | payer OTHER, SELFPAY ==
--- NOTE | 2024-11-03 18:05 | STRESSREP ---
Stress Test Report Exercise myocardial perfusion stress test. 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 The patient exercised according to the regular Abhinav protocol for a total duration of 6 minutes attaining a maximum heart rate of 155 bpm which was 97% of maximum predicted heart rate; the maximum workload was 7 metabolic equivalents. At rest there were no ST or T wave changes noted to suggest ischemia and at peak exercise upsloping ST changes only were noted which did not meet the criteria for ischemia. No clinical angina was noted the test was terminated due to the target heart rate being achieved/fatigue. The peak blood pressure was 150/78 mmHg. Rate-pressure product was 22,600. Myocardial perfusion protocol. 14.7 mCi of technetium 99m sestamibi was injected at rest. The patient exercised according to regular Abhinav protocol for total duration of 6 minutes and at peak exercise 44.1 mCi of technetium 99m sestamibi was injected stress images were obtained stress and rest images were reconstructed in comparing the short axis vertical long and horizontal long axis. Gated images were also obtained. Perfusion SPECT analysis: Review of the stress images demonstrate normal uptake of tracer noted in all areas of the myocardium. The resting images similarly demonstrate normal uptake of tracer noted in all areas of the myocardium. No areas of reversibility are noted to suggest ischemia no previous infarct was noted. Gated SPECT analysis: The gated ejection fraction is 61%. Conclusion: Normal exercise myocardial perfusion stress test at a moderate workload Preserved ejection fraction.
== END | disposition home or self-care (01) ==
PROVIDERS: PCP Family Medicine; Referring Provider Nurse Practitioner Family; Visit Provider Nurse Practitioner Family
DX: Z02.89 Encounter for other administrative examinations (principal); Z95.5 Presence of coronary angioplasty implant and graft; I10 Essential (primary) hypertension; E78.5 Hyperlipidemia, unspecified; R00.2 Palpitations
CPT/HCPCS: 78452; 93017; A9500

== ENCOUNTER 2025-01-22 13:46 | Emergency (ER) | payer OTHER, SELFPAY ==
[2025-01-22 13:46] VITALS: BP 166/108; PULSE 98; RESP 18; TEMP 36.4; O2SAT 100; BMI 27.1
--- NOTE | 2025-01-22 13:52 | EKG12_ITS ---
Test Reason : CP Blood Pressure : */* mmHG Vent. Rate : 88 BPM Atrial Rate : 88 BPM P-R Int : 168 ms QRS Dur : 98 ms QT Int : 384 ms P-R-T Axes : 66 -15 45 degrees QTcB Int : 464 ms Normal sinus rhythm with sinus arrhythmia Normal ECG Confirmed by JAY SY, EZIO ([id number]), health editor JOY PAULSON ([id number]) on 01/25/2025 7:48:42 AM Referred By: ISHA/OMAR Confirmed By: EZIO THOMPSON MD
[2025-01-22 14:09] LABS: Absolute Lymphocyte Count 1.12 X10^3/uL (0.83-4.51); Absolute Neutrophil Count 3.3 X10^3/uL (2.0-7.7); Basophil# 0.04 X10^3/uL; Basophil% 0.8 % (0-1); Eosinophil# 0.12 X10^3/uL; Eosinophils% 2.4 % (0-5); Hematocrit 43.5 % (40-54); Hemoglobin 14.9 g/dL (13.0-16.5); Lymphocyte # 1.12 X10^3/ul (0.83-4.51); Lymphocyte % 22.1 % (19-41); Mean Corp Hgb Conc 34.3 g/dL (32-36); Mean Corpuscular Hgb 33.3 pg (27.0-32.0); Mean Corpuscular Volume 97.1 fL (80-94); Mean Platelet Vol. 9.4 fl (6.2-12.0); Monocyte# 0.51 X10^3/uL; Monocyte% 10.1 % (0-10); NRBC Flagged by Analyzer 0 % (0-5); Neutrophil # 3.26 X10^3/uL (2.7-7.7); Neutrophil % 64.2 % (47-70); Platelet Count 211 K/mm3 (150-450); RBC Distribution Width SD 46.8 fl (35.1-43.9); Red Blood Count 4.48 M/mm3 (4.6-6.2); White Blood Count 5.1 K/mm3 (4.4-11.0)
--- NOTE | 2025-01-22 14:25 | RAD_ITS ---
PROCEDURE: CHEST 1 VIEW (PORTABLE) 01/22/2025 REASON FOR EXAM: CHEST PAIN TECHNIQUE: Frontal view of the chest. COMPARISON: Chest radiograph 09/03/2024. FINDINGS: Hardware: None. Heart: The heart size is normal. Lungs: No focal consolidation, pleural effusion or pneumothorax. Bones: Degenerative changes are identified within the thoracic spine. RAD/Chest 1 View (Portable) IMPRESSION: Negative Chest. Reading Location: [id number]
--- NOTE | 2025-01-22 14:35 | CM.ED ---
Social Work Date of referral: 01/22/25 Reason For Referral: Request for Advanced Care Directives (ACD's)Needed Referred by: Social Work Identification Patient provided consent to Social Work visit. sample worker requested patient bring in a copy of ACD's either during next visit or when out in the community (can drop off). Patient agreeable. Ligia Sue, KVNG, NECKTIE TURNER, 01/22/2025
[2025-01-22 14:36] LABS: Anion Gap 14 (5-15); BUN 12 mg/dL (4-19); Calcium,Total 9.5 mg/dL (7.6-11.0); Carbon Dioxide 21.7 mmol/L (21.0-32.0); Chloride 103 mmol/L (98-108); Creatinine, Serum 1.11 mg/dL (0.70-1.20); EST Glomerular Filtration Rate 76 (>60); Estimated Creatinine Clearance 76.71 ml/min (50-250); Glucose 97 mg/dL (70-99); Potassium 4.8 mmol/L (3.3-5.1); Sodium Level 139 mmol/L (133-145); Troponin T High Sensitivity < 6 ng/L (<=22)
--- NOTE | 2025-01-22 14:50 | ED.VIS.CHEST ---
HPI History of Present Illness Chief Complaint: Chest Pain Informant: patient and spouse/S.O. Onset/Context/Timing Onset: Today and Hours Activity at onset: gradual Timing: Continuous Quality: Positive for Dull Location: Substernal Current Severity: Mild Maximum Severity: Mild Worsened By: Nothing Relieved By: Nothing Associated Symptoms: Positive for Nausea; Negative for Vomiting, Diaphoresis, Dyspnea, Cough, Fever, Lightheadedness, Acid Reflux or Palpitations Narrative Narrative: 59-year-old male history of prior to MIs, CAD with a cardiac stents and hypertension. Is on Plavix and aspirin. He felt following up this morning Zemel last several days. He denies recent chest pain or exertional chest pain or exertional shortness of breath. His weight at work this morning 6 7 AM he started having some pain in his back. Which he states he had before with his MIs. And he gets some mild chest tightness. States felt fatigued. Mild nausea no vomiting. Prior Similar Symptoms: Yes Recent Illness/Hospitalization: No CVD Risk Factors: Positive for Hypertension PE Risk Factors: Negative for Recent Travel/Surgery, Recent Immobilization, Prior DVT or PE, Cancer or OCP + Smoking + >/=35 TAD Risk Factors: Negative for Marfan's Syndrome [facility] Medical History Wears partial dentures High cholesterol Heartburn Gastric reflux History of diverticulitis Former smoker History of heart attack History of echocardiogram History of stress test Hypertension Cardiology follow-up encounter Sigmoid diverticulitis History of coronary artery disease Presence of stent in coronary artery (04/25/23) Essential hypertension HLD (hyperlipidemia) Old myocardial infarction Atherosclerotic heart disease of [place] coronary artery without angina pectoris (04/25/23) Home Medications ?Medication ?Instructions ?Recorded ?Last Taken ?Type aspirin 81 mg tablet,delayed 81 mg PO QDAY [facility] 08/06/17 09/26/23 History release (Adult Low Dose Aspirin) cetirizine 10 mg tablet 10 mg PO DAILY PRN allergy symptoms 05/20/23 Unknown History nitroglycerin 0.4 mg sublingual 0.4 mg sublingual Q5-15M PRN CHEST 06/13/23 Unknown Rx tablet (Nitrostat) PAIN #25 tabs acetaminophen 500 mg capsule 1,000 mg (2 x 500 mg) PO Q8H PRN 06/15/23 10/01/23 Rx PRN fever or pain #30 caps clopidogrel 75 mg tablet (Plavix) 75 mg PO QDAY #90 tabs 07/20/24 Unknown Rx losartan 50 mg tablet 100 mg PO DAILY 08/06/24 Unknown History pantoprazole 40 mg tablet,delayed 20 mg PO DAILY 08/06/24 Unknown History release pitavastatin calcium 1 mg tablet 1 mg PO QDAY 08/06/24 Unknown History Allergy/AdvReac Type Severity Reaction Status Date / Time No Known Allergies Allergy Verified 10/27/24 08:12 Family History Grandfather , age 76 CVA (cerebral vascular accident) Surgical History History of coronary artery stent placement History of cardiac catheterization Presence of coronary angioplasty implant and graft (04/25/23) History of left heart catheterization (~12/2010) Social History Smoking Status: Former smoker how long ago did patient quit smokin alcohol intake: current alcohol intake frequency: 0-2 drinks per day Alcohol type: beer substance use type: does not use caffeine: Yes Type: coffee Number of servings: 2 what type of physical activity do you participate in: none seatbelt use: sometimes do you feel safe at home: Yes ROS ROS ED ROS Narrative Denies recent chest pain or exertional dyspnea or exertional chest pain. He had back pain and chest tightness today. Constitutional Constitutional ED: Denies chills or fever(s) Eyes Eyes: Reports none ENT ENT ED: Reports ear pain Cardiovascular Cardiovascular: Reports as per HPI and chest pain; Denies palpitations or racing heartbeat Respiratory/Chest Respiratory/Chest: Denies cough or dyspnea Gastrointestinal Gastrointestinal: Reports nausea; Denies abdominal pain, diarrhea, melena or vomiting Genitourinary Genitourinary ED: Denies dysuria or hematuria Musculoskeletal Musculoskeletal: Denies arthralgias Integumentary Denies abscess Neurologic Neurologic: Denies headache(s) Psychiatric Psychiatric: Denies anxiety Endocrine Endocrinology: Denies cold intolerance Hematologic/Lymphatic Hematologic/Lymphatic: Denies easy bleeding Allergic/Immunologic Allergic/Immunologic ED: Denies mouth swelling, tongue swelling or urticaria EXAM Physical Exam Narrative Exam Narrative: Well-appearing 59-year-old male. Vital signs stable afebrile. Pulse ox 100% on room air no hypoxia. at bedside. H EENT exam pupils round react light. Moist mucous membrane. Neck nontender no JVD. Lungs clear to auscultation bilaterally. Heart regular rhythm rate about 90 no murmur. Chest wall ribs nontender. Abdomen soft nontender. Moving all 4 extremities. Nontender no edema in his cast. 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 Equal and symmetrical radial pulses. Dorsi plantarflexion intact. Back nontender. Neurologically he is awake and alert answering questions and following commands. Const Vital Signs: 01/22/25 13:46 01/22/25 13:52 01/22/25 14:52 Temperature 97.5 F L Temperature Source Oral Pulse Rate 98 74 Respiratory Rate 18 12 Blood Pressure 166/108 H 140/95 H Blood Pressure Mean 127 110 Pulse Ox 100 100 Oxygen Delivery Method Room Air Room Air Room Air 01/22/25 15:06 01/22/25 16:00 01/22/25 17:00 Temperature Temperature Source Pulse Rate 68 74 72 Respiratory Rate 13 12 18 Blood Pressure 132/90 H 143/93 H 133/88 H Blood Pressure Mean 104 109 103 Pulse Ox 100 99 100 Oxygen Delivery Method Room Air Room Air Room Air Positive well nourished and well developed; Negative for cachectic, contractures or unkempt General Appearance ED: well developed and NAD; Negative for unkempt, cachectic, contractures or pallor Nutritional Appearance: Negative for cachectic HEENT Reports moist mucous membranes normocephalic and atraumatic Eyes PERRL and EOMs intact bilaterally Neck no lymphadenopathy, supple and no JVD General: Negative for tenderness Chest Wall inspection of chest normal and palpation of chest normal Chest: Negative for tenderness Resp normal respiratory effort and clear to auscultation bilaterally Cardio regular rhythm, S1 normal heart sound, S2 normal heart sound and no murmurs Peripheral Pulses: pulses 2+ throughout GI normal to inspection, nondistended, normoactive bowel sounds, soft to palpation, non-tender, non-distended and no masses Back/Spine no CVA tenderness and no thoracic nor lumbar tenderness Extremity normal to inspection General Extremety ED: Negative for edema, pulses abnormal or tenderness General Extremity: Negative for edema or pulses abnormal Neuro oriented x3 and CN's II-XII intact bilaterally Sensorium / Orientation: awake, alert, oriented to person, oriented to place and oriented to time; Negative for confused, lethargic or stuporous Motor Exam: strength 5/5 throughout Psych mental status grossly normal Appearance: Negative for unkempt Attitude: No agitated Mood & Affect: Negative for depressed, anxious or tearful Skin no rashes or lesions noted and no wounds General Skin Exam: Negative for jaundice or pallor Rashes: No rashes noted Trauma: Negative for abrasion, laceration or puncture Heart Score History: Slightly/Non-Suspicious ECG: Normal Age: >45 - <65 years Risk Factors: >/= 3 Risk Factors or History of CAD Troponin: </= Normal Limit Score: 3 MDM MDM MDM Narrative Medical decision making narrative: 59-year-old male with neck discomfort and chest tightness. Exam benign. No reproducible pain. Initial cardiac workup is negative. Awaiting a 2-hour troponin. He does have obviously cardiac history of multiple stents. He is on Plavix and aspirin. No signs of a dissection on chest x-ray exam. No evidence of any RP wound. Repeat exam patient is doing well at 5:52 PM. His tests are negative. Will be discharged home with outpatient follow-up as needed. History & Record Review Discussion w/independent historian: Patient Additional record(s) reviewed:: Prior inpatient record, Prior outpatient record, Prior ED visit and Prior labs Lab Data Attestation: I reviewed the patient's lab results. Lab results narrative: CBC white count of 5.1. H&H 14 and 43. Platelets 211. Electrolytes show gap 14. BUN and creatinine 12 and 1.1. Glucose 97. Initial troponin is less than 6. Chest x-ray is negative. 2-hour troponin less than 6. Labs: Laboratory Results - last 24 hr 01/22/25 01/22/25 14:00 15:58 WBC 5.1 RBC 4.48 L Hgb 14.9 Hct 43.5 MCV 97.1 H MCH 33.3 H MCHC 34.3 RDW Std Deviation 46.8 H RDW Coeff of Leticia 13.0 Plt Count 211 MPV 9.4 Immature Gran % (Auto) 0.400 Neut % (Auto) 64.2 Lymph % (Auto) 22.1 Clare % (Auto) 10.1 H Eos % (Auto) 2.4 Baso % (Auto) 0.8 Absolute Neuts (auto) 3.3 Absolute Lymphs (auto) 1.12 Nucleated RBC % 0 Sodium 139 Potassium 4.8 Chloride 103 Carbon Dioxide 21.7 Anion Gap 14 BUN 12 Creatinine 1.11 Estim Creat Clear Calc 76.71 Est GFR (MDRD) Non-Af 76 BUN/Creatinine Ratio 11.0 Glucose 97 Calcium 9.5 Troponin T High Sens < 6 Troponin T Hi Sens 2 Hr < 6 Radiography Chest X-Ray - ED: 1 View, Read by ED Physician, Normal, Heart, Lungs, Mediastinum, Bony Structures, No Acute Disease and Chronic Changes Diagnostic Testing: Clinical Impression(s) from Imaging Studies Chest X-Ray 01/22/25 14:25 IMPRESSION: Negative Chest. Reading Location: [facility] Chest x-ray, portable, single view interpreted by myself shows normal cardiac silhouette. Normal mediastinum. No goiter knob. Normal lung osman. No acute process. Rhythm Strip Rhythm Strip: Sinus Rhythm Rate: 88 Ectopy: None EKG Initial EKG: Attestation: I personally reviewed and interpreted this EKG as follows: Interpretation: Sinus Rhythm and No Acute Injury Pattern Comments: Normal sinus rhythm rate 88 no acute signs of [place] or ischemia. Discharge Plan Triage Chief Complaint: Chest Pain ED Provider: Robert Mercer Dx/Rx/DC Orders Clinical Impression: Chest pain, History of coronary artery disease, History of [place] (myocardial infarction) Instructions: ED Chest Pain, Uncertain Cause Prescriptions: No Action aspirin [Adult Low Dose Aspirin] 81 mg tablet,delayed release (DR/EC) 81 mg PO QDAY cetirizine 10 mg tablet 10 mg PO DAILY PRN (Reason: allergy symptoms) pantoprazole 40 mg tablet,delayed release (DR/EC) 20 mg PO DAILY Rx Instructions: Take one tablet by mouth daily pitavastatin calcium 1 mg tablet 1 mg PO QDAY acetaminophen 500 mg capsule 1,000 mg PO Q8H PRN PRN (Reason: fever or pain) Qty: 30 0RF losartan 50 mg tablet 100 mg PO DAILY nitroglycerin [Nitrostat] 0.4 mg tablet, sublingual 0.4 mg SUBLINGUAL Q5-15M PRN (Reason: CHEST PAIN) Qty: 25 3RF clopidogrel [Plavix] 75 mg tablet 75 mg PO QDAY Qty: 90 3RF Primary Care Provider: Eduard Henley Referrals: Eduard Henley MD [Primary Care Provider] - 3-5 Days Activity Restrictions/Additional Instructions: All your labs, EKG, chest x-ray were unremarkable. Follow-up with your doctor. Return if you are feeling worse. Nothing bad we can find today. Print Language: Sami Disposition Disposition: Home, Self Care
[2025-01-22 14:52] VITALS: BP 140/95; PULSE 74; RESP 12; O2SAT 100
--- OUTSIDE RECORDS SUMMARY | 2025-01-22 14:56 | XMS RPT_ITS | CCD ---
Author Organization [facility] Care Team Providers Care Home Improvement Installer Name Role Phone DeFinis, Harumi Y Unavailable Unavailable Slava RN, Bhavani Pike Unavailable DeFinis, Harumi Y Unavailable Unavailable DeFinis, Harumi Y Unavailable Unavailable DeFinis, Harumi Y Unavailable Unavailable Dr. Sergei Henley Primary Care Provider Dr. Sergei Henley Referring Provider Troy ESCUDERO, EUGENIA Miranda Attending Provider Dr. Rommel Lieberman Emergency Provider Dr. Lucas Wood Admit Provider Dr. Lucas Wood Attending Provider Dr. Lucas Wood Other Provider Dr. Tera Weeks Other Provider Dr. Brain Whyte Attending Provider Dr. Sergei Henley Primary Care Provider [phone] Dr. Perez Dave Emergency Provider Dr. Ar Torres Admit Provider Dr. Ar Torres Attending Provider Dr. Ar Torres Other Provider Dr. Jose Lockwood Other Provider Dr. Rommel Youssef Other Provider Dr. Rommel Youssef Attending Provider Dr. Jose Lockwood Attending Provider Dr. Sergei Henley Referring Provider Roof BINDER ROLLER, BINDER ROLLER-C Mitchell Harvey Attending Provider Dr. Sergei Henley Primary Care Provider Dr. Perez Dave Emergency Provider Dr. Ar Torres Admit Provider Dr. Ar Torres Attending Provider Dr. Ar Torres Other Provider Dr. Jose Lockwood Other Provider Dr. Rommel Youssef Other Provider Dr. Rommel Youssef Attending Provider Dr. Jose Lockwood Attending Provider [phone] Sergei Henley Referring Provider Sherly BINDER ROLLER, BINDER ROLLER-C Mitchell Harvey Attending Provider MD Donta Swenson Emergency Provider Dr. Meliza Ramírez Admit Provider Dr. Meliza Ramírez Other Provider Dr. Sergei Henley Primary Care Provider Dr. Rommel Youssef Attending Provider Dr. Rommel Youssef Other Provider Dr. Olegario Segal Attending Provider Dr. Sergei Henley Primary Care Provider Dr. Sergei Henley Referring Provider Sherly BINDER ROLLER, BINDER ROLLER-Cliff Harvey Attending Provider Dr. Olegario Segal Referring Provider Dr. Olegario Segal Other Provider Dr. Eduard Henley MD Primary Care Provider Dr. Eduard Henley MD Referring Provider Dr. Jose Lockwood MD Attending Provider Dr. Jesus Romero DO Attending Provider Dr. Jesus Romero DO Emergency Provider Flor SY, Dr. Arellano Attending Provider Flor SY, Dr. Arellano Referring Provider Kale SY, Dr. Chapa Attending Provider Roof BINDER ROLLER-C, Mitchell Candice Attending Provider [phone] Roof BINDER ROLLER-C, Mitchell H Referring Provider [phone] Roof BINDER ROLLER-C, Mitchell H Other Provider Kale, Eduard Primary Care Unavailable Akua Vang Attending Unavailable Kale, Eduard Referring Unavailable Rannic, Christopher Primary Care Unavailable Nuno Rayapradee Referring Unavailabl e Eileen Ray Attending UnavailJose Frederick Attending Unavailable Roof BINDER ROLLER, Mitchell Harvey Consulting Unavailable Roof BINDER ROLLER, Mitchell Harvey Referring Unavailable Kale, Christalexer Primary Care Unavailable Rannic, Christopher Primary Care Unavailable Mg Lewis Attending Unavailable Kale, Eduard Referring Unavailable Charly Canales Attending Unavailable [facility] Unavailable Ranney, Eduard Referring Unavailable Jose Lockwood Attending Unavailable Rannic, Christopher Primary Care Unavailable Ranney, Christalexer Referring Unavailable Ranney, Christopher Primary Care Unavailable Roof BINDER ROLLER, Mitchell Harvey Attending Unavailable Roof BINDER ROLLER, Mitchell Harvey Referring Unavailable Ranney, Christopher Primary Care Unavailable Eduard Henley Attending Unavailable Kale, Nunoer Referring Unavailable Ranney, Christopher Primary Care Unavailable Jesus Romero Attending Unavailable Flor, Nunoapradee Referring Unavailabl e Ranney, Christopher Primary Care Unavailable Eileen Ray Attending Unavailabl e Medications Current Medications Medication Drug Class(es) Dates Sig (Normalized) Sig (Original) acetaminophen 500 mg oral capsule (5 sources) Start: 06-15-2023 take 2 capsules by mouth every eight hours as needed for pain Acetaminophen 500 mg capsule Active 1000 mg PO EVERY 8 HOURS NEEDED as needed for fever or pain June 15, 2023 11:28am Start: 06-15-2023 take 1000 mg by mout h every eight hours as needed Acetaminophen Active 1000 MG PO EVERY 8 HOURS NEEDED June 15, 2023 10:28am aspirin 81 mg delayed release oral tablet (20 sources) Nonsteroidal Anti-inflammatory Drug Start: 08-06-2017 Aspirin (Adult Lo w Dose Aspirin) 81 mg tablet,delayed release (DR/EC) Active 81 mg PO daily August 06, 2017 1:00am Start: 11-27-2011 take 1 tablet by kolton th once daily ASPIRIN 81 MG TABS One tablet by mouth daily ASPIRIN [id number] Elizabet [facility] Start: 11-27-2011 take 1 tablet by kolton th once daily ASPIRIN 81 MG TABS One tablet by mouth daily [facility] [id number] [facility] Start: 11-27-2011 take 1 tablet by kolton th once daily ASPIRIN EC 81 MG TBEC One tablet by mouth daily ASPIRIN [id number] Bhavani Ralph PA-C cetirizine hydrochloride 10 mg oral tablet (7 sources) Histamine-1 Receptor Antagonist Start: 05-20-2023 take 1 tablet by mouth once daily as needed Cetirizine 10 mg tablet Active 10 mg PO DAILY as needed for allergy symptoms May 20, 2023 12:00am clopidogrel 75 mg oral tablet (20 sources) [id number] Platelet Inhibitor Start: 04-19-2024 End: 07-20-2024 take 1 tablet by mouth once daily Clopidogrel (Plavix) 75 mg tablet Active 75 mg PO daily July 20, 2024 12:09pm Start: 05-20-2023 End: 04-19-2024 take 2 tablets by mouth once daily Clopidogrel (Plavix) 75 mg tablet Discontinued 75 mg PO daily May 20, 2023 12:00am April 19, 2024 9:15am 300mg (4 pills) on day one followed by 75mg (1 pill) daily starting day two Start: 08-06-2017 End: 04-25-2023 take 1 tablet by mouth once daily Clopidogrel 75 mg tablet Discontinued 75 mg PO daily August 06, 2017 1:00am April 25, 2023 12:07pm Start: 11-27-2011 take 1 tablet by kolton th once daily PLAVIX 75 MG TABS One tablet by mouth daily CLOPIDOGREL BISULFATE [id number] Elizabet Avila 1 ml evolocumab 140 mg/ml auto-injector (4 sources) PCSK9 Inhibitor Start: 06-13-2023 Evolocumab (Repatha Sureclick) 140 mg/mL pen injector Active 140 MG SC every 2 weeks June 12, 2023 11:00pm On Hold: 09/11/2023- ? Side Effects losartan potassium 50 mg oral tablet (17 sources) Angiotensin 2 Receptor Robert Start: 08-06-2024 take 2 tablets by mouth once daily Losartan 50 mg tablet Active 100 mg PO DAILY August 06, 2024 2:50pm Start: 04-23-2023 End: 08-06-2024 take 1 tablet by mouth once daily Losartan 50 mg tablet Discontinued 50 mg PO DAILY May 20, 2023 1:31pm August 06, 2024 2:52pm nitroglycerin 0.4 mg sublingual tablet (20 sources) Nitrate Vasodilator Start: 06-13-2023 End: 06-13-2023 Nitroglycerin (Nitrostat) 0.4 mg tablet, sublingual Active 0.4 mg SL every 5 to 15 minutes as needed for CHEST PAIN June 13, 2023 10:53am Start: 06-13-2023 End: 06-13-2023 Nitroglycerin (Nitrostat) 0. 4 mg tablet, sublingual Active 0.4 MG SL every 5 to 15 minutes June 13, 2023 9:53am Start: 08-06-2017 End: 06-13-2023 Nitroglycerin (Nitrostat) 0. 4 mg tablet, sublingual Discontinued 0.4 mg SL Q5M as needed for CHEST PAIN August 06, 2017 1:00am June 13, 2023 10:53am Start: 08-06-2017 End: 06-13-2023 Nitroglycerin (Nitrostat) 0. 4 mg tablet, sublingual Discontinued 0.4 MG SL Q5M August 06, 2017 12:00am June 13, 2023 9:53am Start: 06-01-2012 NITROSTAT 0.4 MG SUBL 1 tablet under tongue every 5 min up to 3 X NITROGLYCERIN [id number] Brain Whyte MD Start: 11-27-2011 NITROGLYCERIN 0.4 MG/HR PT24 1 tablet under tongue every 5 min up to 3 X NITROGLYCERIN [id number] Elizabet Avila pantoprazole 40 mg delayed release oral tablet (2 sources) Proton Pump Inhibitor Start: 10-08-2023 End: 08-06-2024 take 1 tablet by mouth once daily Pantoprazole 40 mg tablet,delayed release (DR/EC) Active 20 mg PO DAILY August 06, 2024 2:50pm Take one tablet by mouth daily pitavastatin calcium 1 mg oral tablet (1 source) HMG-CoA Reductase Inhibitor Start: 08-06-2024 take 1 tablet by mouth once daily Pitavastatin Calcium 1 mg tablet Active 1 mg PO daily August 06, 2024 1:00am Completed/Discontinued Medications Medication Drug Class(es) Dates Sig (Normalized) Sig (Original) amoxicillin 500 mg oral capsule (5 sources) Penicillin-class Antibacterial Start: 07-07-2010 End: 07-14-2010 take 1 tablet by mouth twice daily AMOXICILLIN 500 MG CAPS One tablet by mouth twice daily AMOXICILLIN [id number] Latisha Zayas PA-C amoxicillin 875 mg / clavulanate 125 mg oral tablet (5 sources) Penicillin-class Antibacterial Start: 06-15-2023 End: 07-17-2023 Amoxicillin-Pot Clavulanate 875-125 mg tablet Discontinued 1 {tbl} PO Q12H June 15, 2023 12:00am July 17, 2023 9:20am Start: 06-15-2023 End: 07-17-2023 take 1 tablet by mouth every twelve hours Amoxicillin-Pot Clavulanate Discontinued 1 TABLET PO Q12H June 14, 2023 11:00pm July 17, 2023 8:20am atorvastatin 80 mg oral tablet (8 sources) HMG-CoA Reductase Inhibitor Start: 04-25-2023 End: 05-05-2023 take 1 tablet by mouth at bedtime Atorvastatin 80 mg Tablet Discontinued 80 mg PO AT BEDTIME April 25, 2023 12:00am May 05, 2023 4:32pm On Hold: Myalgias, diarrhea busPIRone hydrochloride 5 mg oral tablet (9 sources) Start: 04-23-2023 End: 07-17-2023 take 1 tablet by mouth twice daily Buspirone 5 mg tablet Discontinued 5 mg PO TWICE A DAY April 23, 2023 12:00am July 17, 2023 9:20am cholecalciferol 0.025 mg oral capsule (6 sources) Vitamin D Start: 06-14-2023 End: 08-06-2024 take 1 capsule by mouth twice daily Cholecalciferol (Vitamin D3) 25 mcg (1,000 unit) capsule Discontinued 1000 U PO TWICE A DAY June 14, 2023 12:00am August 06, 2024 2:51pm clonazePAM 0.5 mg oral tablet (17 sources) Benzodiazepine Start: 08-06-2017 End: 07-28-2018 take 1 tablet by mouth twice daily Clonazepam 0.5 mg tablet Discontinued 0.5 mg PO TWICE A DAY 30 August 06, 2017 1:00am July 28, 2018 9:30am Start: 11-27-2011 take 1 tablet by kolton three times daily as needed KLONOPIN 0.5 MG TABS One tablet by mouth three times daily as needed CLONAZEPAM [id number] Elizabet Avila Cobalamine Combinations (5 sources) Start: 06-14-2023 End: 07-17-2023 take 1 capsule by mouth once daily Cobalamine Combinations Discontinued CAP PO DAILY June 13, 2023 11:00pm July 17, 2023 8:21am Start: 06-14-2023 take 1 capsule by mo [facility] once daily Cobalamine Combinations Active CAP PO DAILY June 13, 2023 11:00pm Start: 06-14-2023 take 1 capsule by mo ut once daily Cobalamine Combinations Active CAP PO DAILY June 14, 2023 12:00am Cobalamine Combinations capsule (1 source) Start: 06-14-2023 End: 07-17-2023 take 1 capsule by mouth once daily Cobalamine Combinations capsule Discontinued NMA PO DAILY June 14, 2023 12:00am July 17, 2023 9:21am ezetimibe 10 mg oral tablet (17 sources) Dietary Cholesterol Absorption Inhibitor Start: 08-06-2017 End: 04-23-2023 take 1 tablet by mouth once daily Ezetimibe 10 mg tablet Discontinued 10 mg PO daily 90 90 August 06, 2017 1:00am April 23, 2023 9:57pm On Hold: elevated LFT Start: 06-01-2012 take 1 tablet by kolton th once daily ZETIA 10 MG TABS One tablet by mouth daily EZETIMIBE [id number] Brain Whyte MD famotidine 20 mg oral tablet (5 sources) Histamine-2 Receptor Antagonist Start: 10-25-2013 take 1 tablet by mouth once daily FAMOTIDINE 20 MG TABS One tablet by mouth daily FAMOTIDINE [id number] Brain Whyte MD fish oil (10 sources) Start: 06-01-2012 End: 01-11-2013 take 1 tablet by mouth once daily FISH OIL CAPS One tablet by mouth daily OMEGA-3 FATTY ACIDS CAPS [id number] Bhavani Ralph PA-C Start: 06-01-2012 take 1 tablet by kolton th once daily FISH OIL CAPS One tablet by mouth daily OMEGA-3 FATTY ACIDS CAPS [id number] Brain Whyte MD Start: 06-01-2012 End: 01-11-2013 take 1 tablet by mouth once daily FISH OIL CAPS One tablet by mouth daily OMEGA-3 FATTY ACIDS CAPS [id number] Bhavani Ralph PA-C Start: 06-01-2012 take 1 tablet by kolton th once daily FISH OIL CAPS One tablet by mouth daily OMEGA-3 FATTY ACIDS CAPS [id number] Brain Whyte MD lisinopril 10 mg oral tablet (20 sources) Angiotensin Converting Enzyme Inhibitor Start: 10-24-2017 End: 01-26-2018 take 5 mg by mouth once daily before breakfast Lisinopril 10 mg tablet Discontinued 5 mg PO daily October 24, 2017 11:09am January 26, 2018 8:38am Hold if SBP Advised to check blood pressure in the morning before breakfast. Start: 10-24-2017 End: 01-26-2018 take 5 mg by mouth once daily before breakfast Lisinopril Discontinued 5 MG PO daily October 24, 2017 10:09am January 26, 2018 7:38am Hold if SBP Advised to check blood pressure in the morning before breakfast. Start: 08-06-2017 End: 10-24-2017 take 1 tablet by mouth once daily Lisinopril 10 mg tablet Discontinued 10 mg PO daily August 06, 2017 1:00am October 24, 2017 11:09am Start: 11-28-2011 take 1 tablet by kolton th once daily LISINOPRIL 5 MG TABS One tablet by mouth daily LISINOPRIL [id number] Brain Whyte MD Start: 11-28-2011 End: 01-11-2013 take 1 tablet by mouth once daily LISINOPRIL 10 MG TABS One tablet by mouth daily LISINOPRIL [id number] Bhavani Ralph PA-C Start: 11-27-2011 take 1 tablet by kolton th once daily LISINOPRIL 2.5 MG TABS One tablet by mouth daily LISINOPRIL [id number] Elizabet Avila loratadine 10 mg oral tablet (20 sources) Start: 08-06-2017 End: 05-20-2023 take 1 tablet by mouth once daily as needed Loratadine (Claritin) 10 mg tablet Discontinued 10 mg PO daily as needed for Allergies August 06, 2017 1:00am May 20, 2023 1:32pm Start: 11-27-2011 take 1 tablet by kolton th once daily as needed CLARITIN 10 MG CAPS One tablet by mouth daily as needed LORATADINE [id number] Brain Whyte MD Start: 11-27-2011 take 1 tablet by kolton th once daily as needed CLARITIN 10 MG CAPS One tablet by mouth daily as needed LORATADINE [id number] Brain Whyte MD oxyCODONE hydrochloride 5 mg oral capsule (5 sources) Opioid Agonist Start: 06-15-2023 End: 07-17-2023 take 1 capsule by mouth every six hours as needed for pain Oxycodone 5 mg capsule Discontinued 5 mg PO EVERY 6 HOURS as needed for pain 07 13June 15, 2023 July 17, 2023 9:21am pravastatin sodium 80 mg oral tablet (17 sources) HMG-CoA Reductase Inhibitor Start: 08-06-2017 End: 04-23-2023 take 1 tablet by mouth once daily Pravastatin 80 mg tablet Discontinued 80 mg PO daily 90 90 August 06, 2017 1:00am April 23, 2023 9:57pm On Hold: elevated LFT Start: 06-01-2012 take 1 tablet by kolton th at bedtime PRAVASTATIN SODIUM 80 MG TABS One tablet by mouth at bedtime. PRAVASTATIN SODIUM [id number] Brain Whyte MD raNITIdine 150 mg oral tablet (5 sources) Histamine-2 Receptor Antagonist Start: 06-01-2012 take 1 tablet by mouth twice daily RANITIDINE HCL 150 MG TABS One tablet by mouth twice daily RANITIDINE HCL [id number] Brain Whyte MD rosuvastatin calcium 5 mg oral tablet (15 sources) HMG-CoA Reductase Inhibitor Start: 10-02-2023 End: 08-06-2024 take 1 tablet by mouth every week Rosuvastatin (Crestor) 5 mg tablet Discontinued 5 mg PO .weekly October 02, 2023 1:00am August 06, 2024 2:51pm Start: 05-20-2023 End: 06-13-2023 Rosuvastatin 40 mg tablet Discontinued 20 mg PO DAILY May 20, 2023 2:42pm June 13, 2023 10:37am Start: 05-20-2023 End: 06-13-2023 take 20 mg by mouth once daily Rosuvastatin Discontinu ed 20 MG PO DAILY May 20, 2023 1:42pm June 13, 2023 9:37am Start: 05-05-2023 End: 05-20-2023 take 1 tablet by mouth once daily Rosuvastatin 40 mg tablet Discontinued 40 mg PO DAILY May 05, 2023 12:00am May 20, 2023 2:43pm sildenafil 100 mg oral tablet (9 sources) Phosphodiesterase 5 Inhibitor Start: 04-23-2023 End: 05-20-2023 Sildenafil 100 mg tablet Discontinued 100 mg PO NEEDED as needed for sexual activity April 23, 2023 12:00am May 20, 2023 1:33pm On Hold: until cleared by cargiology. simvastatin 80 mg oral tablet (5 sources) HMG-CoA Reductase Inhibitor Start: 11-27-2011 take 1 tablet by mouth at bedtime SIMVASTATIN 80 MG TABS One tablet by mouth at bedtime. SIMVASTATIN [id number] Elizabet Avila tadalafil 5 mg oral tablet (17 sources) Phosphodiesterase 5 Inhibitor Start: 08-06-2017 End: 01-26-2018 Tadalafil 5 mg tablet Discontinued 5 mg PO NEEDED as needed for erectile August 06, 2017 1:00am January 26, 2018 8:38am Start: 06-01-2012 CIALIS 5 MG TA BS as directed TADALAFIL [id number] Brain Whyte MD ticagrelor 90 mg oral tablet (8 sources) Start: 04-25-2023 End: 05-20-2023 take 1 tablet by mouth twice daily Ticagrelor (Brilinta) 90 mg Tablet Discontinued 90 mg PO TWICE A DAY 60 April 25, 2023 12:00am May 20, 2023 2:39pm ubidecarenone 100 mg oral capsule (7 sources) Start: 05-05-2023 End: 09-11-2023 take 10 capsules by mouth once daily Coenzyme Q10 100 mg capsule Discontinued 100 mg PO DAILY May 05, 2023 12:00am September 11, 2023 9:36am Vitamin B Complex (B Complex-Vitamin B12) tablet (3 sources) Start: 07-17-2023 End: 08-06-2024 Vitamin B Complex (B Complex-Vitamin B12) tablet Discontinued 1 {tbl} PO DAILY July 17, 2023 1:00am August 06, 2024 2:51pm Start: 07-17-2023 take 1 tablet by kolton th once daily Vitamin B Complex (B Complex-Vitamin B12) tablet Active 1 TABLET PO DAILY July 17, 2023 12:00am Problems Active Problems Problem Classification Problem Date Documented Date Episodic/Chronic Abdominal pain (11 sources) Abdominal pain; Translations: [Unspecified abdominal pain] 06-14-2023 Episodic Acute myocardial infarction (18 sources) ST elevation (STEMI) myocardial infarction of unspecified site; Translations: [Myocardial infarction] 07-07-2010 Chronic Administrative/social admission (3 sources) Administrative reason for encounter; Translations: [Encounter for other administrative examinations] Onset: 11-09-2024 11-12-2023 Episodic Cardiac dysrhythmias (7 sources) Palpitations; Translations: [Palpitations] Onset: 09-22-2024 09-11-2023 Episodic Coronary atherosclerosis and other heart disease (20 sources) Coronary atherosclerosis; Translations: [Atherosclerotic heart disease of [place] coronary artery without angina pectoris] Onset: 11-27-2011 11-27-2011 Chronic Comment on above: PTCA with CONNIE to pro ximal 1st obtuse marginal artery & proximal to mid LCX 10, mid LAD 06/20; 04/25/23: CONNIE to mid LAD and proximal OM1 Coronary atherosclerosis and other heart disease (20 sources) Coronary angioplasty status; Translations: [History of myocardial infarction] Onset: 06-11-2010 11-27-2011 Episodic Comment on above: PTCA with CONNIE to pro ximal 1st obtuse marginal artery & proximal to mid LCX 10/10, mid LAD 11/ PTCA with CONNIE to pro ximal 1st obtuse marginal artery & proximal to mid LCX 05/20, mid LAD 06/20DES to mid LAD and proximal OM1 04/25/2023 Disorders of lipid metabolism (20 sources) Hyperlipidemia; Translations: [Hyperlipidemia, unspecified] Onset: 11-09-2024 07-07-2010 Chronic Diverticulosis and diverticulitis (13 sources) Diverticulitis of sigmoid colon; Translations: [Diverticulitis of large intestine without perforation or abscess without bleeding] 06-14-2023 Chronic Comment on above: This is a 57-year-ol d male who presents for recent hospital follow-up of management of uncomplicated diverticulitis. As confirmed with patient this represents his first episode of diverticulitis. He also confirms that he is no longer symptomatic as of this week. Overall his exam is consistent with this report. I discussed with him the general natural history of diverticulitis and suggested that prediction of future recurrences is challenging. I did share with him that his initial presentation as a uncomplicated diagnosis is a positive. I suggested that one of the better means of preventing a recurrence is to minimize experiences of constipation. I reviewed with him his CT imaging which explains why he experienced right sided symptoms. Per this imaging he has a redundant sigmoid colon and it was right at the turning point in his sigmoid colon where he had maximal inflammation. With all of this, I do agree that proceeding with a diagnostic colonoscopy is in order. I shared with him that occasionally colon cancer can masquerade as diverticulitis and that it is best that we proceed with a direct exam. He confirms understanding and wishes to proceed as recommended Esophageal disorders (5 sources) Gastroesophageal reflux disease; Translations: [Gastro-esophageal reflux disease without esophagitis] 07-17-2023 Chronic Comment on above: Patient is a 57-year -old, , male with a past history of tobacco use including a 30-year pack year history who has at least weekly experiences of gastroesophageal reflux disease and heartburn. Given these demographic features and this medical history, I have shared with Mr. Muñiz that we should consider possible Dean's screening EGD. After explanation he confirms an understanding of this rationale and agrees to proceed as recommended. Essential hypertension (20 sources) Hypertensive disorder; Translations: [Essential hypertension] Onset: 11-09-2024 07-07-2010 Chronic Nonspecific chest pain (20 sources) Atypical chest pain; Translations: [Other chest pain] Onset: 09-23-2024 Episodic Nutritional deficiencies (1 source) Vitamin B deficiency, unspecified; Translations: [Vitamin B deficiency, unspecified] Onset: 10-10-2024 Episodic Other circulatory disease (9 sources) H/O: heart disorder; Translations: [Personal history of other diseases of the circulatory system] 04-23-2023 Episodic Other circulatory disease (2 sources) Personal history of other diseases of the circulatory system; Translations: [Personal history of other diseases of circulatory system] 04-23-2023 Episodic Other connective tissue disease (3 sources) Muscle pain; Translations: [Myalgia, unspecified site] 09-11-2023 Episodic Other connective tissue disease (2 sources) Myalgia, unspecified site; Translations: [Myalgia and myositis, unspecified] 09-11-2023 Episodic Transient cerebral ischemia (15 sources) Transient cerebral ischemia; Translations: [Transient cerebral ischemic attack, unspecified] 04-23-2023 Chronic Unclassified (6 sources) Long-term drug therapy; Translations: [Long-term (current) use of other medications] Onset: 06-10-2012 Resolved: 05-03-2015 06-10-2012 Past or Other Problems Problem Classification Problem Date Documented Da te Episodic/Chronic Disorders of teeth and jaw (5 sources) Dental caries; Translations: [Dental caries, unspecified] Onset: 07-07-2010 07-07-2010 Episodic Other aftercare (9 sources) Long-term (current) use of other medications; Translations: [Other buttermaker continuous churn (current) drug therapy] Onset: 06-10-2012 Resolved: 05-03-2015 [...] Results Test Name Value Interpretation Reference Range Facility Urgent Care Visit Reporton 0 11-09-2024 Urgent Care Visit Report [facility] 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 (already paid on 10/27/24) Chief Complaint: STOMACH ISSUES Allergies No Known Allergies Allergy (Verified 10/27/24 08:12) Medications ???Medication ???Instructions ???Recorded ???Confirmed ???Type aspirin 81 mg tablet,delayed 81 mg PO QDAY heart health 7 10/27/24 History release (Adult Low Dose Aspirin) cetirizine 10 mg tablet 10 mg PO DAILY PRN allergy symptom s 05/20/23 08/06/24 History nitroglycerin 0.4 mg sublingual 0.4 mg sublingual Q5-15M PRN CHEST 06/13/23 09/03/24 Rx tablet (Nitrostat) PAIN #25 tabs acetaminophen 500 mg capsule 1,000 mg (2 x 500 mg) PO Q8H PRN 1 08/15/22 08/06/24 Rx PRN fever or pain #30 caps clopidogrel 75 mg tablet (Plavix) 75 mg PO QDAY #90 tabs 07/20/24 0 10/27/24 Rx losartan 50 mg tablet 100 mg PO DAILY 08/06/24 10/27/24 History pantoprazole 40 mg tablet,delayed 20 mg PO DAILY 08/06/24 10/27/24 History release pitavastatin calcium 1 mg tablet 1 mg PO QDAY 08/06/24 10/27/24 His tory 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) Surgical History History of coronary artery stent placement History of cardiac catheterization Presence of coronary angioplasty implant and graft (04/25/23) History of left heart catheterization ( 12/2010) Family History Grandfather , age 76 CVA (cerebral vascular accident) Social History Smoking Status: Former smoker how long ago did patient quit smokin alcohol intake: current alcohol intake frequency: 0-2 drinks per day Alcohol type: beer substance use type: does not use caffeine: Yes Type: coffee Number of servings: 2 what type of physical activity do you participate in: none seatbelt use: sometimes do you feel safe at home: Yes HPI HPI Chief Complaint: STOMACH ISSUES Details: JOVANY MUÑIZ, is a 59 M who presents to the office today for Office Procedures Physical Exam Coding PE Coding DOT PE: Yes Coding Level of Care Code No Charge Diagnoses 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 Eduard Henley MD Status: REG CLI Referring Dr: Mitchell Dubois NP [employer]LLER-C Sex: M C Stress Test Report Exercise myocardial perfusion stress test. 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 The patient exercised according to the regular Abhinav protocol for a total duration of 6 minutes attaining a maximum heart rate of 155bpm which was 97% of maximum predicted heart rate; the maximum workload was 7 metabolic equivalents. At rest there were no ST or T wave changes noted to suggest ischemia and at peak exercise upsloping ST changes only were noted whichdid not meet the criteria for ischemia. No clinical angina was noted the test was terminated due to the target heart rate being achieved/fatigue. The peak blood pressure was 150/78 mmHg. Rate-pressure product was 22,600. Myocardial perfusion protocol. 14.7 mCi of technetium 99m sestamibi was injected at rest. The patient exercised according to regular Abhinav protocol for total duration of 6 minutes and at peak exercise 44.1 mCi of technetium 99m sestamibi was injected stress images were obtained stress and rest images were reconstructed in comparing the short axis vertical long and horizontal long axis. Gated images were also obtained. Perfusion SPECT analysis: Review of the stress images demonstrate normal uptake of tracer noted in all areas of the myocardium. The resting images similarly demonstrate normal uptakeof tracer noted in all areas of the myocardium. No areas of reversibility are noted to suggest ischemia no previous infarct was noted. Gated SPECT analysis: The gated ejection fraction is 61%. Conclusion: Normal exercise myocardial perfusion stress test at a moderate workload Preserved ejection fraction. 11/03/241806 Date _ Jose Lockwood MD CC: EUGENIA Dubois; Dr. Eduard Henley MD ~ Date Dictated: 11/03/241804 Date Transcribed: 11/03/241804 Machine Turner: [place] Signed [facility] Work Phone: Stress Reporton 11-03-2024 Stress Report [facility] Cardiovascular Services [address] [place] [address] MR#: [id number] Acct: [id number] Name: JOVANY MUÑIZ Rep #: [id number] : 1965 59 From: Jose Lockwood MD Primary Care: Dr. Eduard Henley MD Status: REG CLI Referring Dr: Mitchell Dubois NP Sex: M C Stress Test Report Exercise myocardial perfusion stress test. 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 The patient exercised according to the regular Abhinav protocol for a total duration of 6 minutes attaining a maximum heart rate of 155 bpm which was 97% of maximum predicted heart rate; the maximum workload was 7 metabolic equivalents. At rest there were no ST or T wave changes noted to suggest ischemia and at peak exercise upsloping ST changes only were noted which did not meet the criteria for ischemia. No clinical angina was noted the test was terminated due to the target heart rate being achieved/fatigue. The peak blood pressure was 150/78 mmHg. Rate-pressure product was 22,600. Myocardial perfusion protocol. 14.7 mCi of technetium 99m sestamibi was injected at rest. The patient exercised according to regular Abhinav protocol for total duration of 6 minutes and at peak exercise 44.1 mCi of technetium 99m sestamibi was injected stress images were obtained stress and rest images were reconstructed in comparing the short axis vertical long and horizontal long axis. Gated images were also obtained. Perfusion SPECT analysis: Review of the stress images demonstrate normal uptake of tracer noted in all areas of the myocardium. The resting images similarly demonstrate normal uptake of tracer noted in all areas of the myocardium. No areas of reversibility are noted to suggest ischemia no previous infarct was noted. Gated SPECT analysis: The gated ejection fraction is 61%. Conclusion: Normal exercise myocardial perfusion stress test at a moderate workload Preserved ejection fraction. 11/03/241806 Date Jose Lockwood MD CC: EUGENIA Dubois; Dr. Eduard Henley MD Date Dictated: 11/03/241804 Date Transcribed: 11/03/241804 Machine Turner: CO Signed Normal [facility] Vitamin D,25 Hydroxyon 09-30 Vitamin D 25-OH 35.3 ng/mL Normal [facility] Comment on above: Order Comment: Order Date: 09/28/24Order Info: [id number] - [id number] Info: [id number] - VITD25 Result Comment: Mayte min D 25(OH) Status Range Deficiency <20 ng/mL (50nmol/L) Insufficiency 20 - 30 ng/mL (50 - 75 nmol/L) Sufficiency 30 - 100 ng/mL (75 - 250 nmol/L) Toxicity >100 ng/mL (>250 nmol/L) Performed By: #### M [id number] #### [facility] [address] [place], [address] 46-PT-Fymyluc DOrdered By: Cliff Henley on 09-28-2024 Vitamin D 25-Hydroxy 35.3 ng/mL [facility] Comment on above: Vitamin D 25(OH) Sta tus Range Deficiency <20 ng/mL (50nmol/L) Insufficiency 20 - 30 ng/mL (50 - 75 nmol/L) Sufficiency 30 - 100 ng/mL (75 - 250 nmol/L) Toxicity >100 ng/mL (>250 nmol/L) Albumin to globulin ratioOrd ered By: Eduard Henley on 09-28-2024 Albumin/Globulin [Mass ratio] 0.8 {ratio} Low 0.9-2.4 [facility] Bilirubin, totalOrdered By: Eduard Henley on 09-28-2024 Bilirubin [Mass/Vol] 0.50 mg/dL 0.20-1.00 [facility] Comment on above: For patients on eltr ombopag therapy, use of Dimension [place] TBIL is not recommended. Blood urea nitrogen (BUN)/cr eatinine ratioOrdered By: Eduard Henley on 09-28-2024 Urea nitrogen/Creatinine [Mass ratio] 15.0 mg/mg 10-20 [facility] Carbon dioxide measurementOr dered By: Eduard Henley on 09-28-2024 CO2 [Moles/Vol] 28.0 mmol/L 21.0-32.0 [facility] Chloride measurementOrdered By: Eduard Henley on 09-28-2024 Chloride [Moles/Vol] 104 mmol/L 98-107 [facility] Comprehensive Metabolic Prof ilon 09-28-2024 Albumin [Mass/Vol] 3.7 g/dL Normal 3.2-5.0 [facility] Comment on above: Order Comment: Order Date: 09/28/24Order Info: [id number] - CMPOrder Info: [id number] - LIPIDOrder Info: [id number] - PSA Performed By: #### M 100.970 #### [facility] [address] [place], [place], [id number] Albumin/Globulin [Mass ratio] 0.8 {ratio} Low 0.9-2.4 [facility] Comment on above: Order Comment: Order Date: 09/28/24Order Info: [id number] - CMPOrder Info: [id number] - LIPIDOrder Info: [id number] - PSA Performed By: #### M 100.678 #### [facility] [address] [place], [address] ALK P 66 U/L Normal 45-117 [facility] Comment on above: Order Comment: Order Date: 09/28/24Order Info: [id number] - CMPOrder Info: [id number] - LIPIDOrder Info: 7- - PSA Performed By: #### M 100.678 #### [facility] [address] [place], [address] ALT [Catalytic activity/Vol] 38 U/L Normal 16-61 [facility] Comment on above: Order Comment: Order Date: 09/28/24Order Info: 785- - CMPOrder Info: [id number] - LIPIDOrder Info: [id number] - PSA Performed By: #### M 100.678 #### [facility] [address] [place], [address] AST [Catalytic activity/Vol] 29 U/L Normal 15-37 [facility] Comment on above: Order Comment: Order Date: 09/28/24Order Info: 785- - CMPOrder Info: [id number] - LIPIDOrder Info: [id number] - PSA Performed By: #### M 100.678 #### [facility] [address] [place], [address] Bilirubin [Mass/Vol] 0.50 mg/dL Normal 0.20-1.00 [facility] Comment on above: Order Comment: Order Date: 09/28/24Order Info: [id number] - CMPOrder Info: [id number] - LIPIDOrder Info: [id number] - PSA Result Comment: For patients on eltrombopag therapy, use of Dimension [place] TBIL is not recommended. Performed By: #### M 100.678 #### [facility] [address] [place], [address] BUN/CRE 15.0 RATIO Normal 10-20 [facility] Comment on above: Order Comment: Order Date: 09/28/24Order Info: [id number] - CMPOrder Info: [id number] - LIPIDOrder Info: [id number] - PSA Performed By: #### M 100.678 #### [facility] [address] [place], [address] CA,Total 9.9 mg/dL Normal 8.5-10.1 [facility] Comment on above: Order Comment: Order Date: 09/28/24Order Info: 86-1 - CMPOrder Info: [id number] - LIPIDOrder Info: [id number] - PSA Performed By: #### M 100.678 #### [facility] [address] [place], [address] Chloride [Moles/Vol] 104 mmol/L Normal 98-107 [facility] Comment on above: Order Comment: Order Date: 09/28/24Order Info: 86-1 - CMPOrder Info: [id number] - LIPIDOrder Info: [id number] - PSA Performed By: #### M 100.678 #### [facility] [address] [place], [address] CO2 [Moles/Vol] 28.0 mmol/L Normal 21.0-32.0 [facility] Comment on above: Order Comment: Order Date: 09/28/24Order Info: 86-1 - CMPOrder Info: [id number] - LIPIDOrder Info: [id number] - PSA Performed By: #### M 100.678 #### [facility] [address] [place], [address] Creatinine [Mass/Vol] 1.20 mg/dL Normal 0.70-1.30 [facility] Comment on above: Order Comment: Order Date: 09/28/24Order Info: [id number] - CMPOrder Info: [id number] - LIPIDOrder Info: [id number] - PSA Result Comment: The validity of the calculated GFR GFRAA in patients over 70 years has not been determined. Clinical correlation is essential. Performed By: #### M 100.678 #### [facility] [address] [place], [address] EST GFR - AA 79 mL/min Normal >60 [facility] Comment on above: Order Comment: Order Date: 09/28/24Order Info: 86-1 - CMPOrder Info: [id number] - LIPIDOrder Info: [id number] - PSA Result Comment: Afri can Malian GFR Calc Performed By: #### M 100.678 #### [facility] [address] [place], [address] GAP 5 Normal 5-15 [facility] Comment on above: Order Comment: Order Date: 09/28/24Order Info: 785- - CMPOrder Info: [id number] - LIPIDOrder Info: [id number] - PSA Performed By: #### M 100.678 #### [facility] [address] [place], [address] GFR/1.73 sq M.predicted among non-blacks MDRD (S/P/Bld) [Vol rate/Area] 65 mL/min/{1.73_m2} Normal >60 [facility] Comment on above: Order Comment: Order Date: 09/28/24Order Info: [id number] - CMPOrder Info: [id number] - LIPIDOrder Info: [id number] - PSA Result Comment: Non- GFR Calc Performed By: #### M 100.678 #### [facility] [address] [place], [address] Globulin (S) [Mass/Vol] 4.8 g/dL High 2.2-4.2 [facility] Comment on above: Order Comment: Order Date: 09/28/24Order Info: 785- - CMPOrder Info: [id number] - LIPIDOrder Info: [id number] - PSA Performed By: #### M 100.678 #### [facility] [address] [place], [address] Glucose [Mass/Vol] 105 mg/dL Normal 74-106 [facility] Comment on above: Order Comment: Order Date: 09/28/24Order Info: [id number] - CMPOrder Info: [id number] - LIPIDOrder Info: [id number] - PSA Result Comment: Fast ing Glucose result from 100 to 125 mg/dL suggests IMPAIRED HOMEOSTASIS per A.D.A. criteria. Performed By: #### M 100.678 #### [facility] [address] [place], [address] Potassium [Moles/Vol] 4.4 mmol/L Normal 3.5-5.1 [facility] Comment on above: Order Comment: Order Date: 09/28/24Order Info: 785- - CMPOrder Info: [id number] - LIPIDOrder Info: [id number] - PSA Performed By: #### M 100.678 #### [facility] [address] [place], [address] Sodium [Moles/Vol] 138 mmol/L Normal 136-145 [facility] Comment on above: Order Comment: Order Date: 09/28/24Order Info: 785- - CMPOrder Info: [id number] - LIPIDOrder Info: [id number] - PSA Performed By: #### M 100.678 #### [facility] [address] [place], [address] T PROT 8.5 g/dL High 6.4-8.2 [facility] Comment on above: Order Comment: Order Date: 09/28/24Order Info: [id number] - CMPOrder Info: [id number] - LIPIDOrder Info: [id number] - PSA Performed By: #### M 100.678 #### [facility] [address] [place], [address] Urea nitrogen [Mass/Vol] 18 mg/dL Normal 7-18 [facility] Comment on above: Order Comment: Order Date: 09/28/24Order Info: 07 - CMPOrder Info: [id number] - LIPIDOrder Info: [id number] - PSA Performed By: #### M 100.678 #### [facility] [address] [place], [place], [address] Estimated glomerular filtrat ion rate (GFR) AmericanOrdered By: Eduard Henley on 09-28-2024 Estimated GFR (MDRD) Amer 79 mL/min >60 [facility] Comment on above: GFR Calc Glomerular filtration rate ( GFR) estimationOrdered By: Eduard Henley on 09-28-2024 Estimated GFR (MDRD) Non-Af Amer 65 mL/min >60 [facility] Comment on above: Non- GFR Calc Glucose measurementOrdered B y: Eduard Henley on 09-28-2024 Glucose [Mass/Vol] 105 mg/dL 74-106 [facility] Comment on above: Fasting Glucose resu lt from 100 to 125 mg/dL suggests IMPAIRED HOMEOSTASIS per A.D.A. criteria. High density lipoprotein (HD L) measurementOrdered By: Eduard Henley on 09-28-2024 Cholesterol in HDL [Mass/Vol] 81 mg/dL >40 [facility] Comment on above: The drugs N-Acetylcy steine and Metamizole may falsely depress this assay. Reference Range HDL <40 mg/dL Low HDL Cholesterol HDL >or= 60 mg/dL High HDL Cholesterol Laboratory - Chemistry and C hemistry - challengeOrdered By: Eduard Henley on 09-28-2024 AST [Catalytic activity/Vol] 29 U/L 15-37 [facility] Lipid Profileon 09-28-2024 Cholesterol [Mass/Vol] 245 mg/dL High 200 [facility] Comment on above: Order Comment: Order Date: 09/28/24Order Info: [id number] - CMPOrder Info: - LIPIDOrder Info: [id number] - PSA Result Comment: <200 mg/dL Desirable 200-240 mg/dL Borderline >240 mg/dL High Risk Performed By: #### M 100.678 #### [facility] [address] [place], [address] Cholesterol in HDL [Mass/Vol] 81 mg/dL Normal [facility] Comment on above: Order Comment: Order Date: 09/28/24Order Info: 86-1 - CMPOrder Info: [id number] - LIPIDOrder Info: [id number] - PSA Result Comment: The drugs N-Acetylcysteine and Metamizole may falsely depress this assay. Reference Range HDL <40 mg/dL Low HDL Cholesterol HDL >or= 60 mg/dL High HDL Cholesterol Performed By: #### M 100.678 #### [facility] [address] [place], [address] Cholesterol in LDL [Mass/Vol] 144 mg/dL High 0-130 [facility] Comment on above: Order Comment: Order Date: 09/28/24Order Info: [id number] - CMPOrder Info: [id number] - LIPIDOrder Info: [id number] - PSA Performed By: #### M 100.678 #### [facility] [address] [place], [address] Cholesterol in VLDL [Mass/Vol] 20 mg/dL Normal 5-40 [facility] Comment on above: Order Comment: Order Date: 09/28/24Order Info: 785- - CMPOrder Info: [id number] - LIPIDOrder Info: [id number] - PSA Performed By: #### M 100.678 #### [facility] [address] [place], [address] Triglyceride [Mass/Vol] 101 mg/dL Normal [facility] Comment on above: Order Comment: Order Date: 09/28/24Order Info: [id number] - CMPOrder Info: [id number] - LIPIDOrder Info: [id number] - PSA Result Comment: The drugs N-Acetylcysteine and Metamizole may falsely depress this assay. Serum Triglycerides Reference Interval Normal <150 mg/dL Borderline high 150 - 199 mg/dL High 200 - 499 mg/dL Very High > or = 500 mg/dL Performed By: #### M 100.678 #### [facility] [address] [place], [place], [address] Low density lipoprotein (LDL ) cholesterol measurementOrdered By: Eduard Henley on 09-28-2024 Cholesterol in LDL [Mass/Vol] 144 mg/dL High 0-130 [facility] PSA,Total - Annual Screenon 09-28-2024 PSA,TOT SCREEN 0.78 ng/mL Normal 0.00-4.00 [facility] Comment on above: Order Comment: Order Date: 09/28/24Order Info: [id number] - CMPOrder Info: [id number] - LIPIDOrder Info: [id number] - PSA Result Comment: This test was performed using the TPSA assay method for the [employer] chemistry system. Values obtained with different assay methods cannot be used interchangably. When changing PSA assays in the course of monitoring a patient, additional sequential testing should be carried out to confirm baseline values. Performed By: #### M 100.678 #### [facility] [address] [place], [place], [address] Potassium measurementOrdered By: Eduard Henley on 09-28-2024 Potassium [Moles/Vol] 4.4 mmol/L 3.5-5.1 [facility] Screening prostate specific antigen (PSA) measurementOrdered By: Eduard Henley on 09-28-2024 Prostate Specific Antigen Screen 0.78 ng/mL 0.00-4.00 [facility] Comment on above: This test was perfor med using the TPSA assay method for the[employer] chemistry system. Values obtained with differentassay methods cannot be used interchangably.When changing PSA assays in the course of monitoring apatient, additional sequential testing should be carriedout to confirm baseline values. Serum anion gap measurementO rdered By: Eduard Henley on 09-28-2024 Anion gap [Moles/Vol] 5 mmol/L 5-15 [facility] Serum globulin measurementOr dered By: Eduard Henley on 09-28-2024 Globulin (S) [Mass/Vol] 4.8 g/dL High 2.2-4.2 [facility] Serum or plasma alanine pedraza otransferase (ALT) measurementOrdered By: Eduard Henley on 09-28-2024 ALT [Catalytic activity/Vol] 38 U/L 16-61 [facility] Serum or plasma albumin randa urement (mass/volume)Ordered By: Eduard Henley on 09-28-2024 Albumin [Mass/Vol] 3.7 g/dL 3.2-5.0 [facility] Serum or plasma alkaline saw sphatase measurementOrdered By: Eduard Henley on 09-28-2024 ALP [Catalytic activity/Vol] 66 U/L 45-117 [facility] Serum or plasma calcium randa urement (mass/volume)Ordered By: Eduard Henley on 09-28-2024 Calcium [Mass/Vol] 9.9 mg/dL 8.5-10.1 [facility] Serum or plasma cholesterol measurement (mass/volume)Ordered By: Eduard Henley on 09-28-2024 Cholesterol [Mass/Vol] 245 mg/dL High <200 [facility] Comment on above: <200 mg/dL Desirable 200-240 mg/dL Borderline >240 mg/dL High Risk Serum or plasma creatinine m easurement (mass/volume)Ordered By: Eduard Henley on 09-28-2024 Creatinine [Mass/Vol] 1.20 mg/dL 0.70-1.30 [facility] Comment on above: The validity of the calculated GFR & GFRAA in patients over 70 years has not been determined. Clinical correlation is essential. Serum or plasma urea nitroge n measurement (mass/volume)Ordered By: Eduard Henley on 09-28-2024 Urea nitrogen [Mass/Vol] 18 mg/dL 7-18 [facility] Sodium levelOrdered By: Rubina Henley on 09-28-2024 Sodium [Moles/Vol] 138 mmol/L 136-145 [facility] Total proteinOrdered By: Mukesh istopher Henley on 09-28-2024 Protein [Mass/Vol] 8.5 g/dL High 6.4-8.2 [facility] Triglycerides measurementOrd ered By: Eduard Henley on 09-28-2024 Triglyceride [Mass/Vol] 101 mg/dL <199 [facility] Comment on above: The drugs N-Acetylcy steine and Metamizole may falsely depress this assay.Serum Triglycerides Reference Interval Normal <150 mg/dL Borderline high 150 - 199 mg/dL High 200 - 499 mg/dL Very High > or = 500 mg/dL Very low density lipoprotein (VLDL) cholesterol measurementOrdered By: Eduard Henley on 09-28-2024 VLDL Cholesterol 20 mg/dL 5-40 [facility] Vitamin B12on 09-28-2024 Cobalamin (Vitamin B12) [Mass/Vol] 337 pg/mL Normal 211-911 [facility] Comment on above: Order Comment: Order Date: 09/28/24Order Info: [id number] - [id number] Info: [id number] - VITD25 Performed By: #### M 100.678 #### [facility] [address] [place], [address] Vitamin B12 measurementOrder ed By: Eduard Henley on 09-28-2024 Cobalamin (Vitamin B12) [Mass/Vol] 337 pg/mL 211-911 [facility] 12 Lead EKGon 09-03-2024 12 Lead EKG [facility] Services [address] [place] [address] 12 Lead EKG 09/03/24 0023 MR#: [id number] Acct: [id number] Name: JOVANY MUÑIZ Rep #: [id number] : 1965 58 From: Eileen Ray MD Attending Dr: Status: DEP ER Ordering Dr: Jesus Romero DO Date: 09/03/24 Location: ED Sex: M C Admitted: Test Reason : CP Blood Pressure : */* mmHG Vent. Rate : 94 BPM Atrial Rate : 94 BPM P-R Int : 158 ms QRS Dur : 98 ms QT Int : 364 ms P-R-T Axes : 92 -28 28 degrees QTcB Int : 455 ms Normal sinus rhythm Cannot rule out Inferior infarct (cited on or before 25-Apr-2023) Abnormal ECG Confirmed by FLOR SY, GUANAKO ([id number]), health editor RUBI ROMERO ([id number]) on 09/07/2024 7:16:39 AM Referred By: TB Confirmed By: GUANAKO RAY MD 09/07/24 07 Date Eileen Ray MD CC: Dr. Eduard Henley MD; Dr. Jesus Romero, DO Signed Normal [facility] Absolute neutrophil countOrd ered By: Jesus Romero on 09-03-2024 Neutrophils (Bld) [#/Vol] 3.1 10*3/uL 2.0-7.7 [facility] BNP (brain natriuretic pepti de measurement)Ordered By: Jesus Romero on 09-03-2024 Natriuretic peptide B (Bld) [Mass/Vol] 7.1 pg/mL 0-100 [facility] BNP,B-Type NATRIURETIC PEPTI [place] 09-03-2024 Natriuretic peptide B (Bld) [Mass/Vol] 7.1 pg/mL Normal 0-100 [facility] Comment on above: Performed By: #### L 501.5200, L100.0100, L503.6620, L500.2500, L501.9520, L501.5425 #### [facility] [address] [place], [address] Basic Metabolic Profile (BMP )on 09-03-2024 BUN/CRE 14.0 RATIO Normal 10-20 [facility] Comment on above: Order Comment: 1 Y Performed By: #### L 501.5200, L100.0100, L503.6620, L500.2500, L501.9520, L501.5425 #### [facility] [address] [place], [address] CA,Total 9.3 mg/dL Normal 8.5-10.1 [facility] Comment on above: Order Comment: 1 Y Performed By: #### L 501.5200, L100.0100, L503.6620, L500.2500, L501.9520, L501.5425 #### [facility] [address] [place], [address] Chloride [Moles/Vol] 104 mmol/L Normal 98-107 [facility] Comment on above: Order Comment: 1 Y Performed By: #### L 501.5200, L100.0100, L503.6620, L500.2500, L501.9520, L501.5425 #### [facility] [address] [place], [address] CO2 [Moles/Vol] 26.0 mmol/L Normal 21.0-32.0 [facility] Comment on above: Order Comment: 1 Y Performed By: #### L 501.5200, L100.0100, L503.6620, L500.2500, L501.9520, L501.5425 #### [facility] [address] [place], [address] Creatinine [Mass/Vol] 1.29 mg/dL Normal 0.70-1.30 [facility] Comment on above: Order Comment: 1 Y Result Comment: The validity of the calculated GFR GFRAA in patients over 70 years has not been determined. Clinical correlation is essential. Performed By: #### L 501.5200, L100.0100, L503.6620, L500.2500, L501.9520, L501.5425 #### [facility] [address] [place], [address] ECRCL 73.11 ml/min Normal [facility] Comment on above: Order Comment: 1 Y Performed By: #### L 501.5200, L100.0100, L503.6620, L500.2500, L501.9520, L501.5425 #### [facility] [address] [place], [address] EST GFR - AA 73 mL/min Normal >60 [facility] Comment on above: Order Comment: 1 Y Result Comment: Afri can Malian GFR Calc Performed By: #### L 501.5200, L100.0100, L503.6620, L500.2500, L501.9520, L501.5425 #### [facility] [address] [place], [address] GAP 8 Normal 5-15 [facility] Comment on above: Order Comment: 1 Y Performed By: #### L 501.5200, L100.0100, L503.6620, L500.2500, L501.9520, L501.5425 #### [facility] [address] [place], [address] GFR/1.73 sq M.predicted among non-blacks MDRD (S/P/Bld) [Vol rate/Area] 60 mL/min/{1.73_m2} Normal >60 [facility] Comment on above: Order Comment: 1 Y Result Comment: Non- GFR Calc Performed By: #### L 501.5200, L100.0100, L503.6620, L500.2500, L501.9520, L501.5425 #### [facility] [address] [place], [address] Glucose [Mass/Vol] 102 mg/dL Normal 74-106 [facility] Comment on above: Order Comment: 1 Y Result Comment: Fast ing Glucose result from 100 to 125 mg/dL suggests IMPAIRED HOMEOSTASIS per A.D.A. criteria. Performed By: #### L 501.5200, L100.0100, L503.6620, L500.2500, L501.9520, L501.5425 #### [facility] [address] [place], [address] Potassium [Moles/Vol] 3.8 mmol/L Normal 3.5-5.1 [facility] Comment on above: Order Comment: 1 Y Result Comment: Slig ht Hemolysis, Result may be falsely increased. Performed By: #### L 501.5200, L100.0100, L503.6620, L500.2500, L501.9520, L501.5425 #### [facility] [address] [place], [address] Sodium [Moles/Vol] 138 mmol/L Normal 136-145 [facility] Comment on above: Order Comment: 1 Y Performed By: #### L 501.5200, L100.0100, L503.6620, L500.2500, L501.9520, L501.5425 #### [facility] [address] [place], [address] Urea nitrogen [Mass/Vol] 18 mg/dL Normal 7-18 [facility] Comment on above: Order Comment: 1 Y Performed By: #### L 501.5200, L100.0100, L503.6620, L500.2500, L501.9520, L501.5425 #### [facility] [address] [place], [address] Basophil percentageOrdered B y: Jesus Romero on 09-03-2024 Basophils/100 WBC (Bld) 1.2 % High 0-1 [facility] Blood urea nitrogen (BUN)/cr eatinine ratioOrdered By: Jesus Romero on 09-03-2024 Urea nitrogen/Creatinine [Mass ratio] 14.0 mg/mg 10-20 [facility] CBC W/Diff, Automatedon 08-12 Absolute Lymph 1.72 X10 3/uL Normal 0.83-4.51 [facility] Comment on above: Performed By: #### L 501.5200, L100.0100, L503.6620, L500.2500, L501.9520, L501.5425 #### [facility] [address] [place], [address] Absolute Neut 3.1 X10 3/uL Normal 2.0-7.7 [facility] Comment on above: Performed By: #### L 501.5200, L100.0100, L503.6620, L500.2500, L501.9520, L501.5425 #### [facility] [address] [place], [address] Basophils/100 WBC (Bld) 1.2 % High 0-1 [facility] Comment on above: Performed By: #### L 501.5200, L100.0100, L503.6620, L500.2500, L501.9520, L501.5425 #### [facility] [address] [place], [address] Eosinophils/100 WBC (Bld) 3.3 % Normal 0-5 [facility] Comment on above: Performed By: #### L 501.5200, L100.0100, L503.6620, L500.2500, L501.9520, L501.5425 #### [facility] [address] [place], [address] Erythrocyte distribution width (RBC) [Ratio] 13.2 % Normal 11.6-14.6 [facility] Comment on above: Performed By: #### L 501.5200, L100.0100, L503.6620, L500.2500, L501.9520, L501.5425 #### [facility] [address] [place], [address] Hematocrit (Bld) [Volume fraction] 39.8 % Low 40-54 [facility] Comment on above: Performed By: #### L 501.5200, L100.0100, L503.6620, L500.2500, L501.9520, L501.5425 #### [facility] [address] [place], [address] Hemoglobin (Bld) [Mass/Vol] 13.4 g/dL Normal 13.0-16.5 [facility] Comment on above: Performed By: #### L 501.5200, L100.0100, L503.6620, L500.2500, L501.9520, L501.5425 #### [facility] [address] [place], [address] IG% 0.500 Normal 0.0-0.9 [facility] Comment on above: Result Comment: IG% - Immature Granulocytes (promyelocytes, myelocytes and metamyelocytes) > 1% indicates that a LEFT SHIFT is Present. Performed By: #### L 501.5200, L100.0100, L503.6620, L500.2500, L501.9520, L501.5425 #### [facility] [address] [facility] [place], [address] Lymphocytes/100 WBC (Bld) 30.3 % Normal 19-41 [facility] Comment on above: Performed By: #### L 501.5200, L100.0100, L503.6620, L500.2500, L501.9520, L501.5425 #### [facility] [address] [place], [address] MCH (RBC) [Entitic mass] 33.0 pg High 27.0-32.0 [facility] Comment on above: Performed By: #### L 501.5200, L100.0100, L503.6620, L500.2500, L501.9520, L501.5425 #### [facility] [address] [place], [address] MCHC (RBC) [Mass/Vol] 33.7 g/dL Normal 32-36 [facility] Comment on above: Performed By: #### L 501.5200, L100.0100, L503.6620, L500.2500, L501.9520, L501.5425 #### [facility] [address] [place], [address] MCV (RBC) [Entitic vol] 98.0 fL High 80-94 [facility] Comment on above: Performed By: #### L 501.5200, L100.0100, L503.6620, L500.2500, L501.9520, L501.5425 #### [facility] [address] [place], [address] Monocytes/100 WBC (Bld) 10.9 % High 0-10 [facility] Comment on above: Performed By: #### L 501.5200, L100.0100, L503.6620, L500.2500, L501.9520, L501.5425 #### [facility] [address] [place], [address] Neutrophils/100 WBC (Bld) 53.8 % Normal 47-70 [facility] Comment on above: Performed By: #### L 501.5200, L100.0100, L503.6620, L500.2500, L501.9520, L501.5425 #### [facility] [address] [place], [address] Nucleated RBC (Bld) [#/Vol] 0 10*3/uL Normal 0-5 [facility] Comment on above: Performed By: #### L 501.5200, L100.0100, L503.6620, L500.2500, L501.9520, L501.5425 #### [facility] [address] [place], [address] Platelet mean volume (Bld) [Entitic vol] 10.0 fL Normal 6.2-12.0 [facility] Comment on above: Performed By: #### L 501.5200, L100.0100, L503.6620, L500.2500, L501.9520, L501.5425 #### [facility] [address] [place], [address] Platelets (Bld) [#/Vol] 236 10*3/uL Normal 150-450 [facility] Comment on above: Performed By: #### L 501.5200, L100.0100, L503.6620, L500.2500, L501.9520, L501.5425 #### [facility] [address] [place], [address] RBC (Bld) [#/Vol] 4.06 10*6/uL Low 4.6-6.2 [facility] Comment on above: Performed By: #### L 501.5200, L100.0100, L503.6620, L500.2500, L501.9520, L501.5425 #### [facility] [address] [place], [address] RDW SD 47.3 fl High 35.1-43.9 [facility] Comment on above: Performed By: #### L 501.5200, L100.0100, L503.6620, L500.2500, L501.9520, L501.5425 #### [facility] [address] [place], [address] WBC (Bld) [#/Vol] 5.7 10*3/uL Normal 4.4-11.0 [facility] Comment on above: Performed By: #### L 501.5200, L100.0100, L503.6620, L500.2500, L501.9520, L501.5425 #### [facility] [address] [place], [address] Carbon dioxide measurementOr dered By: Jesus Romero on 09-03-2024 CO2 [Moles/Vol] 26.0 mmol/L 21.0-32.0 [facility] Chest PA and Lateralon 09-03 Chest PA and Lateral [facility] [address] [place] [address] Chest PA and Lateral MR#: [id number] Acct: [id number] Name: JOVANY MUÑIZ Rep #: [id number] : 1965 M 58 From: Layne Suh MD PCP: Dr. Eduard Henley MD Status: [facility] ER Study: Chest PA and Lateral Date of Exam: 09/03/24 Exam# [id number] Ordering Dr: Jesus Romero DO -[id number] STUDY: X-RAY CHEST REASON FOR EXAM: Male, 58 years old patient with chest pain. TECHNIQUE: PA and lateral views of the chest. COMPARISON: April 23, 2023. FINDINGS: Cardiac monitoring leads are present. The lungs are clear and expanded. There is no demonstrated pleural abnormality. Normal size heart. Normal mediastinum and verona. Normal visualized pulmonary arteries. Normal visualized aortic arch and descending thoracic aorta. There are diffuse degenerative changes of the visualized thoracic spine. Normal visualized ribs, clavicles, and shoulders. There is no demonstrated abnormality of the visualized soft tissue structures of the upper abdomen. RAD/Chest PA and Lateral IMPRESSION: No radiographic evidence of acute cardiopulmonary disease. Electronically Signed: Layne Suh MD at 1:46 EST , CC: Dr. Eduard Henley MD; Dr. Jesus Romero DO Machine Turner: Signed Normal [facility] Chloride measurementOrdered By: Jesus Romero on 09-03-2024 Chloride [Moles/Vol] 104 mmol/L 98-107 [facility] D-Dimer Quantitative (DVT/PE )on 09-03-2024 D-DIMER QUANT 0.44 FEU/ug/m Normal 0.27-0.49 [facility] Comment on above: Result Comment: NORM AL D-Dimer level (<0.50) indicates no DVT or PE. Performed By: #### L [id number] #### [facility] [address] [place], [place], [id number] D-dimer measurement for deep venous thrombosisOrdered By: Jesus Romero on 09-03-2024 D-Dimer Quantitative (PE/DVT) 0.44 FEU/ug/m 0.27-0.49 [facility] Comment on above: NORMAL D-Dimer level (<0.50) indicates no DVT or PE. Emergency Department Summary on 09-03-2024 Emergency Department Summary [facility] Medical Records Department [address] [place] [address] Emergency Department Summary 09/03/24 MR#: [id number] Acct: [id number] Name: JOVANY MUÑIZ Rep #: [id number] : 1965 58 From: Jesus Romero DO PCP: Dr. Eduard Henley MD Status:REG ER Location: ED HPI History of Present Illness Chief Complaint: Chest Pain Narrative Narrative: Patient is a 58-year-old male with past medical history of hypercholesteremia, GERD, hyperlipidemia, CAD status post stent May 2024 who presents to the emergency department chief complaint of chest pain and palpitations. Patient states that around 9:00 this evening he noted that his heart was racing and he developed chest discomfort. He states that he checked his blood pressure and it was elevated. He states that he attempted to take hot shower which originally made him feel better and he was able to go to sleep. He states that he woke up around 11 PM this evening and once again was not feeling right checked his blood pressure and was noted to be elevated therefore he came here further evaluation management. Patient states that he did take nitro prior to arrival and states that this did not help his chest discomfort. Patient states that he did take 2 aspirin prior to arrival here. Patient states that when this all started he was attempting to unfreeze his daughter's pipe at their trailer but was not do anything strenuous. Patient states that he saw his players club representative the day after Gisela and the checkup went well. [facility] Medical History Wears partial dentures High cholesterol Heartburn Gastric reflux History of diverticulitis Former smoker History of heart attack History of echocardiogram History of stress test Hypertension Cardiology follow-up encounter Sigmoid diverticulitis History of coronary artery disease Presence of stent in coronary artery (04/25/23) Essential hypertension HLD (hyperlipidemia) 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) Home Medications ???Medication ???Instructions ???Recorded ???Last Taken ???Type aspirin 81 mg tablet,delayed 81 mg PO QDAY heart health 08/06/17 09/26/23 History release (Adult Low Dose Aspirin) cetirizine 10 mg tablet 10 mg PO DAILY PRN allergy symptoms 05/20/23 Unknown History nitroglycerin 0.4 mg sublingual 0.4 mg sublingual Q5-15M PRN CHEST 06/13/23 Unknown Rx tablet (Nitrostat) PAIN #25 tabs acetaminophen 500 mg capsule 1,000 mg (2 x 500 mg) PO Q8H PRN 06/15/23 10/01/23 Rx PRN fever or pain #30 caps clopidogrel 75 mg tablet (Plavix) 75 mg PO QDAY #90 tabs 07/20/24 Unknown Rx losartan 50 mg tablet 100 mg PO DAILY 08/06/24 Unknown History pantoprazole 40 mg tablet,delayed 20 mg PO DAILY 08/06/24 Unknown History release pitavastatin calcium 1 mg tablet 1 mg PO QDAY 08/06/24 Unknown History Allergy/AdvReac Type Severity Reaction Status Date / Time No Known Allergies Allergy Verified 09/03/24 00:23 Family History Grandfather , age 76 CVA (cerebral vascular accident) Surgical History History of coronary artery stent placement History of cardiac catheterization Presence of coronary angioplasty implant and graft (04/25/23) History of left heart catheterization ( 12/2010) Social History Smoking Status: Former smoker how long ago did patient quit smokin alcohol intake: current alcohol intake frequency: 0-2 drinks per day Alcohol type: beer substance use type: does not use caffeine: Yes Type: coffee Number of servings: 2 what type of physical activity do you participate in: none seatbelt use: sometimes do you feel safe at home: Yes ROS ROS ED ROS Narrative Constitutional: Denies any fevers, chills, headaches, lightheadedness, dizziness Eyes: Denies change in vision double vision blurry vision Cardiovascular: Complains of chest discomfort as noted above denies palpitations currently Respiratory: Denies coughing wheezing shortness of breath Abdomen: Denies abdominal pain nausea vomiting diarrhea currently : Denies any urinary symptoms Neurological: Denies numbness, weakness, tingling Musculoskeletal: Denies back pain Skin: Denies any rashes or lesions EXAM Physical Exam Narrative Exam Narrative: General: Patient was lying in bed rest comfortably did not appear to be acute distress Head: Atraumatic, normocephalic Eyes: PERRL bilaterally, EOMI bilaterally, no conjunctival injection noted Neck: Soft, supple, trachea midline Cardiovascular: Regular rate and rhythm no murmurs gallops rubs noted Respi (more content not included)... Normal [facility] Eosinophil percentageOrdered By: Jesus Rmoero on 09-03-2024 Eosinophils/100 WBC (Bld) 3.3 % 0-5 [facility] Erythrocyte distribution wid th ratioOrdered By: Jesus Romero on 09-03-2024 Erythrocyte distribution width (RBC) [Ratio] 13.2 % 11.6-14.6 [facility] Erythrocyte distribution wid th standard deviationOrdered By: Jesus Romero on 09-03-2024 Erythrocyte distribution width (RBC) [Entitic vol] 47.3 fL High 35.1-43.9 [facility] Estimated glomerular filtrat ion rate (GFR) AmericanOrdered By: Jesus Romero on 09-03-2024 Estimated GFR (MDRD) Amer 73 mL/min >60 [facility] Comment on above: GFR Calc Estimation of creatinine liudmila aranceOrdered By: Jesus Romero on 09-03-2024 Estimated Creatinine Clearance Calc 73.11 ml/min [facility] Glomerular filtration rate ( GFR) estimationOrdered By: Jesus Romero on 09-03-2024 Estimated GFR (MDRD) Non-Af Amer 60 mL/min >60 [facility] Comment on above: Non- GFR Calc Glucose measurementOrdered B y: Jesus Romero on 09-03-2024 Glucose [Mass/Vol] 102 mg/dL 74-106 [facility] Comment on above: Fasting Glucose resu lt from 100 to 125 mg/dL suggests IMPAIRED HOMEOSTASIS per A.D.A. criteria. Hematocrit Auto (Bld) [Volum e fraction]Ordered By: Jesus Romero on 09-03-2024 Hematocrit (Bld) [Volume fraction] 39.8 % Low 40-54 [facility] Hemoglobin measurementOrdere d By: Jesus Romero on 09-03-2024 Hemoglobin (Bld) [Mass/Vol] 13.4 g/dL 13.0-16.5 [facility] Immature granulocytes/100 WB C Auto (Bld)Ordered By: Jesus Romero on 09-03-2024 Immature granulocytes/100 WBC (Bld) 0.500 % 0.0-0.9 [facility] Comment on above: IG% - Immature Granu locytes (promyelocytes, myelocytes and metamyelocytes) > 1% indicates that a LEFT SHIFT is Present. Influenza virus A and B and SARS-CoV-2 (COVID-19) and Respiratory syncytial virus RNAOrdered By: Jesus Romero on 09-03-2024 SARS-CoV-2 (COVID-19) RNA LINDSAY+probe Ql (Unsp spec) [facility] L501.4020on 09-03-2024 TROPONIN-I HS 6 pg/mL Normal 3.0-78.0 [facility] Comment on above: Order Comment: 2 Result Comment: Plea se Note: New Test Units and Gender Specific Reference Ranges. For more information see Policy Stat Procedure [place] High Sensitivity Troponin (TNIH) and attachments. Performed By: #### M 100.678 #### [facility] [place], [address] L501.5425on 09-03-2024 TROPONIN-I HS 5 pg/mL Normal 3.0-78.0 [facility] Comment on above: Order Comment: 1 Y Result Comment: Plea se Note: New Test Units and Gender Specific Reference Ranges. For more information see Policy Stat Procedure [place] High Sensitivity Troponin (TNIH) and attachments. Performed By: #### L 501.5200, L100.0100, L503.6620, L500.2500, L501.9520, L501.5425 #### [facility] [address] [place], [address] Lymphocytes Auto (Unsp spec) [#/Vol]Ordered By: Jesus Romero on 09-03-2024 Lymphocytes (Bld) [#/Vol] 1.72 10*3/uL 0.83-4.51 [facility] Lymphocytes/100 WBC Auto (Un sp spec)Ordered By: Jesus Romero on 09-03-2024 Lymphocytes/100 WBC (Bld) 30.3 % 19-41 [facility] M100.678on 09-03-2024 M100.678 Pending SARS-CoV-2 (COVID 19) Negative INFLUENZA A Negative INFLUENZA B Negative RSV PCR Negative Normal [facility] Comment on above: Performed By: #### M 100.678 #### [facility] [address] [facility] [place], [address] MCV (mean corpuscular volume ) determinationOrdered By: Jesus Romero on 09-03-2024 MCV (RBC) [Entitic vol] 98.0 fL High 80-94 [facility] Magnesiumon 09-03-2024 Magnesium [Mass/Vol] 2.4 mg/dL Normal 1.6-2.6 [facility] Comment on above: Order Comment: 1 Y Result Comment: Slig ht Hemolysis, Result may be falsely increased. Performed By: #### L 501.5200, L100.0100, L503.6620, L500.2500, L501.9520, L501.5425 #### [facility] [address] [place], [address] Magnesium measurementOrdered By: Jesus Romero on 09-03-2024 Magnesium [Mass/Vol] 2.4 mg/dL 1.6-2.6 [facility] Comment on above: Slight Hemolysis, Re sult may be falsely increased. Mean corpuscular hemoglobin (MCH) determinationOrdered By: Jesus Romero on 09-03-2024 MCH (RBC) [Entitic mass] 33.0 pg High 27.0-32.0 [facility] Mean corpuscular hemoglobin concentration (MCHC) determinationOrdered By: Jesus Romero on 09-03-2024 MCHC (RBC) [Mass/Vol] 33.7 g/dL 32-36 [facility] Mean platelet volume determi nationOrdered By: Jesus Romero on 09-03-2024 Platelet mean volume (Bld) [Entitic vol] 10.0 fL 6.2-12.0 [facility] Monocyte percentageOrdered B y: Jesus Romero on 09-03-2024 Monocytes/100 WBC (Bld) 10.9 % High 0-10 [facility] Neutrophil percentageOrdered By: Jesus Romero on 09-03-2024 Neutrophils/100 WBC (Bld) 53.8 % 47-70 [facility] Nucleated red blood cell per centageOrdered By: Jesus Romero on 09-03-2024 Nucleated RBC/100 WBC (Bld) [Ratio] 0 % 0-5 [facility] Platelet countOrdered By: Imtiaz Romero on 09-03-2024 Platelets (Bld) [#/Vol] 236 10*3/uL 150-450 [facility] Potassium measurementOrdered By: Jesus Romero on 09-03-2024 Potassium [Moles/Vol] 3.8 mmol/L 3.5-5.1 [facility] Comment on above: Slight Hemolysis, Re sult may be falsely increased. RBC Auto (Bld) [#/Vol]Ordere d By: Jesus Romero on 09-03-2024 RBC (Bld) [#/Vol] 4.06 10*6/uL Low 4.6-6.2 [facility] Serum anion gap measurementO rdered By: Jesus Romero on 09-03-2024 Anion gap [Moles/Vol] 8 mmol/L 5-15 [facility] Serum or plasma calcium randa urement (mass/volume)Ordered By: Jesus Romero on 09-03-2024 Calcium [Mass/Vol] 9.3 mg/dL 8.5-10.1 [facility] Serum or plasma creatinine m easurement (mass/volume)Ordered By: Jesus Romero on 09-03-2024 Creatinine [Mass/Vol] 1.29 mg/dL 0.70-1.30 [facility] Comment on above: The validity of the calculated GFR & GFRAA in patients over 70 years has not been determined. Clinical correlation is essential. Serum or plasma urea nitroge n measurement (mass/volume)Ordered By: Jesus Romero on 09-03-2024 Urea nitrogen [Mass/Vol] 18 mg/dL 7-18 [facility] Sodium levelOrdered By: Amanda Romero on 09-03-2024 Sodium [Moles/Vol] 138 mmol/L 136-145 [facility] TSH QnOrdered By: Jesus hussein on 09-03-2024 Thyroid Stimulating Hormone (TSH) 2.110 uIU/mL 0.358-3.740 [facility] Thyroid Stim Hormone (TSH)on 09-03-2024 TSH 2.110 uIU/mL Normal 0.358-3.740 [facility] Comment on above: Order Comment: 1 Y Performed By: #### L 501.5200, L100.0100, L503.6620, L500.2500, L501.9520, L501.5425 #### [facility] [address] [place], [place], [address] Troponin IOrdered By: Jesus Romero on 09-03-2024 Troponin I High Sensitivity 6 pg/mL 3.0-78.0 [facility] Comment on above: Please Note: New Joan t Units and Gender Specific Reference Ranges. For more information see Policy Stat Procedure [place] High Sensitivity Troponin (TNIH) and attachments. White blood cell (WBC) count Ordered By: Jesus Romero on 09-03-2024 WBC (Bld) [#/Vol] 5.7 10*3/uL 4.4-11.0 [facility] Cardiology Visit Reporton Cardiology Visit Report [facility] [address] [place], [place] [address] OFFICE VISIT Date of Service: 08/06/24 MR#: [id number] Acct: [id number] Name: JOVANY MUÑIZ Rep #: [id number] : 1965 Provider: Dr. Jose Lockwood MD Age/Sex: 58/M Location: [facility] Status: Signed HPI HPI History of Present Illness Details: This is a 58-year-old white male who presents today for outpatient cardiovascular follow-up regarding a history of underlying CAD, PCI, hyperlipidemia, and hypertension. He presented [facility] on 04/23/2023 for assurance regarding stroke and chest pain. He was sent to CT scanner to rule out CVA. By the time he returned from CT scanner, his symptoms of stroke had resolved. On account of non-ST elevated myocardial infarction, he underwent a heart catheterization on 04/24/2023 that showed high-grade stenosis in the mid LAD immediately post stent and subtotally occluded ramus intermedius. Ejection fraction was 60%. He proceeded with drug-eluting stent to mid LAD and proximal OM1. He denies chest, arm, jaw, or neck discomfort. He acknowledges bilateral lower extremity edema. He denies claudication. He denies shortness of breath with activity, shortness of breath at rest, orthopnea, or PND. He denies chronic cough. He denies significant, sudden weight gain. He states dizziness, and near-syncope. He denies syncope. He denies blood in urine, blood in stool, or epistaxis. He denies fever with chills. He denies myalgia. He denies fatigue. He states weakness and night sweats. His exercise level has remained stable. Intake Vital Signs 05/20/23 13:29 08/06/24 13:53 Height 6 ft 6 ft Weight: 207 lb BMI 28.0 BP 138/89 H Blood Pressure Location Lt brachial Position Sitting Respiration 16 Pulse 89 Pulse Source Monitor Intake Visit Reasons: 1 y fu PREV PFM PT Therapeutic Sales Specialist Required: No Accompanied by: Self Is patient in pain?: No Allergies No Known Allergies Allergy (Verified 08/06/24 13:49) Medications ???Medication ???Instructions ???Recorded ???Confirmed ???Type aspirin 81 mg tablet,delayed 81 mg PO QDAY heart [facility] 08/06/17 08/06/24 History release (Adult Low Dose Aspirin) cetirizine 10 mg tablet 10 mg PO DAILY PRN allergy symptoms 05/20/23 08/06/24 History nitroglycerin 0.4 mg sublingual 0.4 mg sublingual Q5-15M PRN CHEST 06/13/23 08/06/24 Rx tablet (Nitrostat) PAIN #25 tabs acetaminophen 500 mg capsule 1,000 mg (2 x 500 mg) PO Q8H PRN 06/15/23 08/06/24 Rx PRN fever or pain #30 caps clopidogrel 75 mg tablet (Plavix) 75 mg PO QDAY #90 tabs 07/20/24 08/06/24 Rx losartan 50 mg tablet 100 mg PO DAILY 08/06/24 08/06/24 History pantoprazole 40 mg tablet,delayed 20 mg PO DAILY 08/06/24 History release pitavastatin calcium 1 mg tablet 1 mg PO QDAY 08/06/24 08/06/24 History Have you fallen in the past year?: No PFSH Medical History Wears partial dentures High cholesterol Heartburn Gastric reflux History of diverticulitis Former smoker History of heart attack History of echocardiogram History of stress test Hypertension Cardiology follow-up encounter Sigmoid diverticulitis History of coronary artery disease Presence of stent in coronary artery (04/25/23) Essential hypertension HLD (hyperlipidemia) 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) Surgical History History of coronary artery stent placement History of cardiac catheterization Presence of coronary angioplasty implant and graft (04/25/23) History of left heart catheterization ( 12/2010) Family History Grandfather , age 76 CVA (cerebral vascular accident) Social History Smoking Status: Former smoker how long ago did patient quit smokin alcohol intake: current alcohol intake frequency: 0-2 drinks per day Alcohol type: beer substance use type: does not use caffeine: Yes Type: coffee Number of servings: 2 what type of physical activity do you participate in: none seatbelt use: sometimes do you feel safe at home: Yes ROS Const Const: Negative for fatigue, weakness, headache(s), daytime sleepiness or difficulty sleeping ENT ENT: Negative for headache(s), dizziness or Nosebleed/epistaxis Cardio Chest Pain: No Palpitations: No Edema: None Resp Respiratory: Negative for SOB with activity, SOB at rest, SOB orthopnea SOB lying down or Cough GI GI: Negative nausea, vomiting or heartburn Neuro Neuro: Negative for dizziness, lightheadedness, near syncope, headache(s) or weakness End (more content not included)... [facility] Office Visit Reporton 2023 Office Visit Report [facility] [address] [place] [address] OFFICE VISIT Date of Service: 05/18/24 MR#: [id number] Acct: [id number] Patient: JOVANY MUÑIZ Rep #: [id number] : 1965 Provider: EUGENIA Costello Age/Sex: 58/M Location: [facility] Status: Signed Intake Vital Signs 10/02/23 06:44 05/18/24 12:31 05/18/24 12:50 Height 6 ft 6 ft Intake Visit Reasons: STOMACH ISSUES Chief Complaint: STOMACH ISSUES Therapeutic Sales Specialist Required: No Accompanied by: Self Is patient in pain?: Yes Allergies No Known Allergies Allergy (Verified 05/18/24 13:04) Medications ???Medication ???Instructions ???Recorded ???Confirmed ???Type aspirin 81 mg tablet,delayed 81 mg PO QDAY [facility] 08/06/17 05/18/24 History release (Adult Low Dose Aspirin) cetirizine 10 mg tablet 10 mg PO DAILY PRN allergy symptoms 05/20/23 05/18/24 History losartan 50 mg tablet 50 mg PO DAILY 05/20/23 05/18/24 History nitroglycerin 0.4 mg sublingual 0.4 mg sublingual Q5-15M PRN CHEST 06/13/23 05/18/24 Rx tablet (Nitrostat) PAIN #25 tabs cholecalciferol (vitamin D3) 25 1,000 unit PO BID 06/14/23 05/18/24 History mcg (1,000 unit) capsule acetaminophen 500 mg capsule 1,000 mg (2 x 500 mg) PO Q8H PRN 06/15/23 05/18/24 Rx PRN fever or pain #30 caps vitamin B complex (B 1 tab PO DAILY 07/17/23 05/18/24 History Complex-Vitamin B12 tablet) rosuvastatin 5 mg tablet (Crestor) 5 mg PO .weekly #30 tabs 10/02/23 05/18/24 Rx pantoprazole 40 mg tablet,delayed 40 mg PO DAILY #30 tabs 10/08/23 05/18/24 Rx release clopidogrel 75 mg tablet (Plavix) 75 mg PO QDAY #90 tabs 04/19/24 05/18/24 Rx Nurse's Note: Pt stated he has diverticulitis and was hospitalized a year ago for very similar symptoms. We sent patient to hospital for further evaluation. 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) Surgical History History of coronary artery stent placement History of cardiac catheterization Presence of coronary angioplasty implant and graft (04/25/23) History of left heart catheterization ( 12/2010) Family History Grandfather , age 76 CVA (cerebral vascular accident) Social History Smoking Status: Former smoker how long ago did patient quit smokin alcohol intake: current alcohol intake frequency: 0-2 drinks per day Alcohol type: beer substance use type: does not use caffeine: Yes Type: coffee Number of servings: 2 what type of physical activity do you participate in: none seatbelt use: sometimes do you feel safe at home: Yes HPI HPI Chief Complaint: STOMACH ISSUES Details: JOVANY MUÑIZ, is a 58 M who presents to the office today for Coding Level of Care Code Attention Mri Tech Comment Never seen/evaluated-sent to ER by front office administrator staff. Assessment and Plan Assessment and Plan Patient Instructions: Patient advised by front office administrator staff to proceed to ER for evaluation. No exam completed at this office. . 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 Chief Complaint: DOT physical Allergies No Known Allergies Allergy (Verified 10/02/23 06:43) [facility] Medical History (Updated 11/12/23 @ 12:35 by Charly JEWELL, PA) 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/23) Cardiology follow-up encounter Essential hypertension Former smoker Gastric reflux Heartburn High cholesterol History of coronary artery disease History of diverticulitis History of echocardiogram History of heart attack History of stress test HLD (hyperlipidemia) Hypertension Old myocardial infarction Presence of stent in coronary artery (04/25/23) Sigmoid diverticulitis Wears partial dentures Surgical History (Updated 09/25/23 @ 15:09 by Nica Burch) History of cardiac catheterization History of coronary artery stent placement History of left heart catheterization ( 12/2010) Presence of coronary angioplasty implant and graft (04/25/23) Family History Grandfather , age 76 CVA (cerebral vascular accident) Social History (Reviewed 07/17/23 @ 08:17 by Karely Mckeon Smoking Status: Former smoker how long ago did patient quit smokin alcohol intake: current alcohol intake frequency: 0-2 drinks per day Alcohol type: beer substance use type: does not use caffeine: Yes Type: coffee Number of servings: 2 what type of physical activity do you participate in: none seatbelt use: sometimes do you feel safe at home: Yes HPI HPI Chief Complaint: DOT physical Details: JOVANY MUÑIZ, is a 58 M who presents to the office today for DOT physical. Please see corresponding scanned documents with today's date. Office Procedures Physical Exam Coding PE Coding DOT PE: Yes Coding Level of Care Code No Charge Diagnoses Encounter for examination required by Department of 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) Z02.89 Assessment and Plan Assessment and Plan (1) Encounter for examination required by Department of 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): Status: Acute 11/12/23 1235 Date Charly Monaco Signature: Date (if applicable) CC: [facility] Basophil percentageOrdered B y: Carlita Stathopoulagustín on 09-10-2023 Bilirubin [Mass/Vol] 0.40 mg/dL 0.20-1.00 [facility] Comment on above: For patients on eltr ombopag therapy, use of Dimension [place] TBIL is not recommended. Chloride [Moles/Vol] 104 mmol/L 98-107 [facility] Glucose [Mass/Vol] 109 mg/dL 74-106 [facility] Comment on above: Fasting Glucose resu lt from 100 to 125 mg/dL suggests IMPAIRED HOMEOSTASIS per A.D.A. criteria. Hemoglobin (Bld) [Mass/Vol] 15.4 g/dL 13.0-16.5 [facility] Potassium [Moles/Vol] 4.6 mmol/L 3.5-5.1 [facility] Protein [Mass/Vol] 8.0 g/dL 6.4-8.2 [facility] Sodium [Moles/Vol] 133 mmol/L 136-145 [facility] WBC (Bld) [#/Vol] 5.9 10*3/uL 4.4-11.0 [facility] Determination of erythrocyte mean corpuscular volume (MCV)Ordered By: Carlita Ron on 09-10-2023 MCV (RBC) [Entitic vol] 97.1 fL 80-94 [facility] Erythrocyte distribution wid th ratioOrdered By: [facility] on 09-10-2023 Erythrocyte distribution width (RBC) [Ratio] 13.3 % 11.6-14.6 [facility] Erythrocyte distribution wid th standard deviationOrdered By: [facility] on 09-10-2023 Erythrocyte distribution width (RBC) [Entitic vol] 47.8 fL 35.1-43.9 [facility] Hematocrit Auto (Bld) [Volum e fraction]Ordered By: [facility] on 09-10-2023 Hematocrit (Bld) [Volume fraction] 46.5 % 40-54 [facility] Laboratory - Chemistry and C hemistry - challengeOrdered By: [facility] on 09-10-2023 Albumin/Globulin [Mass ratio] 0.9 {ratio} 0.9-2.4 [facility] ALP [Catalytic activity/Vol] 63 U/L 45-117 [facility] ALT [Catalytic activity/Vol] 46 U/L 16-61 [facility] CO2 [Moles/Vol] 25.0 mmol/L 21.0-32.0 [facility] Cobalamin (Vitamin B12) [Mass/Vol] 438 pg/mL 211-911 [facility] Globulin (S) [Mass/Vol] 4.3 g/dL 2.2-4.2 [facility] Urea nitrogen/Creatinine [Mass ratio] 20.5 mg/mg 10-20 [facility] - Hematology and Cell countsOrdered By: [facility] on 09-10-2023 MCH (RBC) [Entitic mass] 32.2 pg 27.0-32.0 [facility] MCHC (RBC) [Mass/Vol] 33.1 g/dL 32-36 [facility] Platelets (Bld) [#/Vol] 260 10*3/uL 150-450 [facility] No Panel InformationOrdered By: Carlita Velasquez on 09-10-2023 Estimated GFR (MDRD) Amer 107 mL/min >60 [facility] Comment on above: GFR Calc Estimated GFR (MDRD) Non-Af Amer 89 mL/min >60 [facility] Comment on above: Non- GFR Calc Platelet mean volume Codey-Ec ker (Bld) [Entitic vol]Ordered By: Carlita Velasquez on 09-10-2023 Platelet mean volume (Bld) [Entitic vol] 9.9 fL 6.2-12.0 [facility] RBC Auto (Bld) [#/Vol]Ordere d By: Carlita Velasquez on 09-10-2023 RBC (Bld) [#/Vol] 4.79 10*6/uL 4.6-6.2 [facility] Serum or plasma calcitriol m easurement (mass/volume)Ordered By: Carlita Velasquez on 09-10-2023 1,25-dihydroxyvitamin D3 [Mass/Vol] 33.6 pg/mL 24.8-81.5 [facility] Comment on above: Performed at: - [address] [id number] Director: Brandie Dial MD, Phone: [phone] Serum or plasma calcium randa urement (mass/volume)Ordered By: Carlita Velasquez on 09-10-2023 Calcium [Mass/Vol] 9.3 mg/dL 8.5-10.1 [facility] Serum or plasma creatinine m easurement (mass/volume)Ordered By: Carlita Velasquez on 09-10-2023 Creatinine [Mass/Vol] 0.93 mg/dL 0.70-1.30 [facility] Comment on above: The validity of the calculated GFR & GFRAA in patients over 70 years has not been determined. Clinical correlation is essential. Serum or plasma urea nitroge n measurement (mass/volume)Ordered By: Carlita Velasquez on 09-10-2023 Urea nitrogen [Mass/Vol] 19 mg/dL 7-18 [facility] Thin prep Papanicolaou smear with manual screeningOrdered By: Carlita Velasquez on 09-10-2023 Thin prep Papanicolaou smear with manual screening 3.7 g/dL 3.2-5.0 [facility] Thin prep Papanicolaou smear with manual screening 32 U/L 15-37 [facility] Thin prep Papanicolaou smear with manual screening 4 5-15 [facility] Whole blood hemoglobin A1c/t otal hemoglobin ratio (mass fraction)Ordered By: Carlita Velasquez on 09-10-2023 HbA1c (Bld) [Mass fraction] 5.5 % 3.8-5.6 [facility] Comment on above: Normal < 5.7 % Predi abetic 5.7 - 6.4 % Diabetic >or= 6.5 % Please note range changes. Basophil percentageOrdered B y: Mitchell Dubois on 07-07-2023 Bilirubin [Mass/Vol] 0.50 mg/dL 0.20-1.00 [facility] Comment on above: For patients on eltr ombopag therapy, use of Dimension [place] TBIL is not recommended. Cholesterol [Mass/Vol] 152 mg/dL <200 [facility] Comment on above: <200 mg/dL Desirable 200-240 mg/dL Borderline >240 mg/dL High Risk Protein [Mass/Vol] 8.2 g/dL 6.4-8.2 [facility] Triglyceride [Mass/Vol] 140 mg/dL <199 [facility] Comment on above: The drugs N-Acetylcy steine and Metamizole may falsely depress this assay.Serum Triglycerides Reference Interval Normal <150 mg/dL Borderline high 150 - 199 mg/dL High 200 - 499 mg/dL Very High > or = 500 mg/dL Direct bilirubinOrdered By: Mitchell Dubois on 07-07-2023 Bilirubin.direct [Mass/Vol] 0.17 mg/dL 0.00-0.30 [facility] - Chemistry and C hemistry - challengeOrdered By: Mitchell Dubois on 07-07-2023 ALP [Catalytic activity/Vol] 72 U/L 45-117 [facility] ALT [Catalytic activity/Vol] 52 U/L 16-61 [facility] Globulin (S) [Mass/Vol] 4.6 g/dL 2.2-4.2 [facility] Serum or plasma albumin randa urement (mass/volume)Ordered By: Mitchell Dubois on 07-07-2023 Albumin [Mass/Vol] 3.6 g/dL 3.2-5.0 [facility] Serum or plasma cholesterol in HDL measurement (mass/volume)Ordered By: Mitchell Dubois on 07-07-2023 Cholesterol in HDL [Mass/Vol] 65 mg/dL >40 [facility] Comment on above: The drugs N-Acetylcy steine and Metamizole may falsely depress this assay. Reference Range HDL <40 mg/dL Low HDL Cholesterol HDL >or= 60 mg/dL High HDL Cholesterol Serum or plasma cholesterol in VLDL measurement (mass/volume)Ordered By: Mitchell Dubois on 07-07-2023 Cholesterol in VLDL [Mass/Vol] 28 mg/dL 5-40 [facility] Serum or plasma low density lipoprotein (LDL) cholesterol measurement (mass/volume)Ordered By: Mitchell Dubois on 07-07-2023 Cholesterol in LDL [Mass/Vol] 59 mg/dL 0-130 [facility] Thin prep Papanicolaou smear with manual screeningOrdered By: Mitchell Dubois on 07-07-2023 Thin prep Papanicolaou smear with manual screening 31 U/L 15-37 [facility] Absolute lymphocyte countOrd ered By: Meliza Ramírez on 06-15-2023 Lymphocytes Auto (Unsp spec) [#/Vol] 0.73 10*3/uL 0.83-4.51 [facility] Basophil percentageOrdered B y: Meliza Ramírez on 06-15-2023 Basophils/100 WBC (Bld) 0.3 % 0-1 [facility] Bilirubin [Mass/Vol] 0.50 mg/dL 0.20-1.00 [facility] Comment on above: For patients on eltr ombopag therapy, use of Dimension [place] TBIL is not recommended. Chloride [Moles/Vol] 109 mmol/L 98-107 [facility] Eosinophils/100 WBC (Bld) 2.6 % 0-5 [facility] Glucose [Mass/Vol] 93 mg/dL 74-106 [facility] Neutrophils (Bld) [#/Vol] 5.7 10*3/uL 2.0-7.7 [facility] Neutrophils/100 WBC (Bld) 81.6 % 47-70 [facility] Potassium [Moles/Vol] 3.6 mmol/L 3.5-5.1 [facility] Protein [Mass/Vol] 6.8 g/dL 6.4-8.2 [facility] Sodium [Moles/Vol] 138 mmol/L 136-145 [facility] WBC (Bld) [#/Vol] 7.0 10*3/uL 4.4-11.0 [facility] Blood erythrocytes count (nu mber/volume)Ordered By: Meliza Ramírez on 06-15-2023 RBC (Bld) [#/Vol] 3.60 10*6/uL 4.6-6.2 [facility] Blood hemoglobin measurement (mass/volume)Ordered By: Meliza Ramírez on 06-15-2023 Hemoglobin (Bld) [Mass/Vol] 11.7 g/dL 13.0-16.5 [facility] Blood lymphocytes/100 leukoc ytesOrdered By: Meliza Ramírez on 06-15-2023 Lymphocytes/100 WBC (Bld) 10.5 % 19-41 [facility] Blood monocytes/100 leukocyt esOrdered By: Meliza Ramírez on 06-15-2023 Monocytes/100 WBC (Bld) 4.6 % 0-10 [facility] Blood platelet mean volumeOr dered By: Meliza Ramírez on 06-15-2023 Platelet mean volume (Bld) [Entitic vol] 9.9 fL 6.2-12.0 [facility] Determination of erythrocyte mean corpuscular volume (MCV)Ordered By: Meliza Ramírez on 06-15-2023 MCV (RBC) [Entitic vol] 101.4 fL 80-94 [facility] Hematocrit Auto (Bld) [Volum e fraction]Ordered By: Meliza Ramírez on 06-15-2023 Hematocrit (Bld) [Volume fraction] 36.5 % 40-54 [facility] - Chemistry and C hemistry - challengeOrdered By: Meliza Ramírez on 06-15-2023 ALP [Catalytic activity/Vol] 61 U/L 45-117 [facility] ALT [Catalytic activity/Vol] 22 U/L 16-61 [facility] CO2 [Moles/Vol] 22.0 mmol/L 21.0-32.0 [facility] Globulin (S) [Mass/Vol] 4.3 g/dL 2.2-4.2 [facility] Urea nitrogen/Creatinine [Mass ratio] 11.1 mg/mg 10-20 [facility] - Hematology and Cell countsOrdered By: Meliza Ramírez on 06-15-2023 Erythrocyte distribution width (RBC) [Entitic vol] 50.3 fL 35.1-43.9 [facility] Erythrocyte distribution width (RBC) [Ratio] 13.4 % 11.6-14.6 [facility] Immature granulocytes/100 WBC (Bld) 0.400 % 0.0-0.9 [facility] Comment on above: IG% - Immature Granu locytes (promyelocytes, myelocytes and metamyelocytes) > 1% indicates that a LEFT SHIFT is Present. MCH (RBC) [Entitic mass] 32.5 pg 27.0-32.0 [facility] Nucleated RBC/100 WBC (Bld) [Ratio] 0 % 0-5 [facility] MCHC Auto (RBC) [Mass/Vol]Or dered By: Meliza Ramírez on 06-15-2023 MCHC (RBC) [Mass/Vol] 32.1 g/dL 32-36 [facility] No Panel InformationOrdered By: Meliza Ramírez on 06-15-2023 Estimated Creatinine Clearance Calc 107.78 ml/min [facility] Estimated GFR (MDRD) Amer 124 mL/min >60 [facility] Comment on above: GFR Calc Estimated GFR (MDRD) Non-Af Amer 103 mL/min >60 [facility] Comment on above: Non- GFR Calc Platelets bldOrdered By: Rubén Ramírez on 06-15-2023 Platelets (Bld) [#/Vol] 205 10*3/uL 150-450 [facility] Serum or plasma albumin randa urement (mass/volume)Ordered By: Meliza Ramírez on 06-15-2023 Albumin [Mass/Vol] 2.5 g/dL 3.2-5.0 [facility] Serum or plasma albumin/glob ulin mass ratioOrdered By: Meliza Ramírez on 06-15-2023 Albumin/Globulin [Mass ratio] 0.6 {ratio} 0.9-2.4 [facility] Serum or plasma calcium randa urement (mass/volume)Ordered By: Meliza Ramírez on 06-15-2023 Calcium [Mass/Vol] 7.9 mg/dL 8.5-10.1 [facility] Serum or plasma creatinine m easurement (mass/volume)Ordered By: Meliza Ramírez on 06-15-2023 Creatinine [Mass/Vol] 0.81 mg/dL 0.70-1.30 [facility] Comment on above: The validity of the calculated GFR & GFRAA in patients over 70 years has not been determined. Clinical correlation is essential. Serum or plasma urea nitroge n measurement (mass/volume)Ordered By: Meliza Ramírez on 06-15-2023 Urea nitrogen [Mass/Vol] 9 mg/dL 7-18 [facility] Thin prep Papanicolaou smear with manual screeningOrdered By: Meliza Ramírez on 06-15-2023 Thin prep Papanicolaou smear with manual screening 12 U/L 15-37 [facility] Thin prep Papanicolaou smear with manual screening 7 5-15 [facility] Absolute lymphocyte countOrd ered By: Donta Swenson on 06-14-2023 Lymphocytes Auto (Unsp spec) [#/Vol] 0.90 10*3/uL 0.83-4.51 [facility] Basophil percentageOrdered B y: Donta Swenson on 06-14-2023 Basophil percentage 0 SEEN /hpf 0-5 [facility] Basophils/100 WBC (Bld) 0.3 % 0-1 [facility] Bilirubin [Mass/Vol] 0.60 mg/dL 0.20-1.00 [facility] Comment on above: For patients on eltr ombopag therapy, use of Dimension [place] TBIL is not recommended. Chloride [Moles/Vol] 108 mmol/L 98-107 [facility] Eosinophils/100 WBC (Bld) 2.5 % 0-5 [facility] Glucose [Mass/Vol] 119 mg/dL 74-106 [facility] Comment on above: Fasting Glucose resu lt from 100 to 125 mg/dL suggests IMPAIRED HOMEOSTASIS per A.D.A. criteria. Neutrophils (Bld) [#/Vol] 7.4 10*3/uL 2.0-7.7 [facility] Neutrophils/100 WBC (Bld) 83.8 % 47-70 [facility] Potassium [Moles/Vol] 4.4 mmol/L 3.5-5.1 [facility] Protein [Mass/Vol] 8.0 g/dL 6.4-8.2 [facility] Sodium [Moles/Vol] 139 mmol/L 136-145 [facility] WBC (Bld) [#/Vol] 8.9 10*3/uL 4.4-11.0 [facility] Bilirubin Test strip Ql (U)O rdered By: Donta Swenson on 06-14-2023 Bilirubin Ql (U) Negative Negative [facility] Blood erythrocytes count (nu mber/volume)Ordered By: Donta Swenson on 06-14-2023 RBC (Bld) [#/Vol] 4.32 10*6/uL 4.6-6.2 [facility] Blood hemoglobin measurement (mass/volume)Ordered By: Donta Swenson on 06-14-2023 Hemoglobin (Bld) [Mass/Vol] 14.1 g/dL 13.0-16.5 [facility] Blood lymphocytes/100 leukoc ytesOrdered By: Donta Swenson on 06-14-2023 Lymphocytes/100 WBC (Bld) 10.2 % 19-41 [facility] Blood monocytes/100 leukocyt esOrdered By: Donta Swenson on 06-14-2023 Monocytes/100 WBC (Bld) 2.7 % 0-10 [facility] Blood platelet mean volumeOr dered By: Donta Swenson on 06-14-2023 Platelet mean volume (Bld) [Entitic vol] 9.4 fL 6.2-12.0 [facility] Determination of erythrocyte mean corpuscular volume (MCV)Ordered By: Dnota Swenson on 06-14-2023 MCV (RBC) [Entitic vol] 100.2 fL 80-94 [facility] Hematocrit Auto (Bld) [Volum e fraction]Ordered By: Donta Swenson on 06-14-2023 Hematocrit (Bld) [Volume fraction] 43.3 % 40-54 [facility] Ketones Test strip Ql (U)Ord ered By: Donta Swenson on 06-14-2023 Ketones Ql (U) Negative Negative [facility] - Chemistry and C hemistry - challengeOrdered By: Donta Swenson on 06-14-2023 ALP [Catalytic activity/Vol] 72 U/L 45-117 [facility] ALT [Catalytic activity/Vol] 30 U/L 16-61 [facility] CO2 [Moles/Vol] 27.0 mmol/L 21.0-32.0 [facility] Globulin (S) [Mass/Vol] 4.8 g/dL 2.2-4.2 [facility] Lipase [Catalytic activity/Vol] 235 U/L 13-75 [facility] Comment on above: Please note:LIPASE r evised reference range effective 22. New Lipase methodology. Expected to produce lower values than the previous assay method. NEW Reference Range: 13 - 75 U/L Urea nitrogen/Creatinine [Mass ratio] 11.9 mg/mg 10-20 [facility] - Hematology and Cell countsOrdered By: Donta Swenson on 06-14-2023 Erythrocyte distribution width (RBC) [Entitic vol] 48.7 fL 35.1-43.9 [facility] Erythrocyte distribution width (RBC) [Ratio] 13.1 % 11.6-14.6 [facility] Immature granulocytes/100 WBC (Bld) 0.500 % 0.0-0.9 [facility] Comment on above: IG% - Immature Granu locytes (promyelocytes, myelocytes and metamyelocytes) > 1% indicates that a LEFT SHIFT is Present. MCH (RBC) [Entitic mass] 32.6 pg 27.0-32.0 [facility] Nucleated RBC/100 WBC (Bld) [Ratio] 0 % 0-5 [facility] MCHC Auto (RBC) [Mass/Vol]Or dered By: Donta Swenson on 06-14-2023 MCHC (RBC) [Mass/Vol] 32.6 g/dL 32-36 [facility] Mucus LM Ql (Urine sed)Order ed By: Donta Swenson on 06-14-2023 Mucus Ql (Urine sed) 0 SEEN /hpf [facility] Nitrite Test strip Ql (U)Ord ered By: Donta Swenson on 06-14-2023 Nitrite Ql (U) Negative Negative [facility] No Panel InformationOrdered By: Donta Swenson on 06-14-2023 Estimated Creatinine Clearance Calc 80.09 ml/min [facility] Estimated GFR (MDRD) Amer 89 mL/min >60 [facility] Comment on above: GFR Calc Estimated GFR (MDRD) Non-Af Amer 73 mL/min >60 [facility] Comment on above: Non- GFR Calc Platelets bldOrdered By: Goldie Swenson on 06-14-2023 Platelets (Bld) [#/Vol] 251 10*3/uL 150-450 [facility] Protein Test strip Ql (U)Ord ered By: Donta Swenson on 06-14-2023 Protein Ql (U) Negative Negative [facility] Serum or plasma albumin randa urement (mass/volume)Ordered By: Donta Swenson on 06-14-2023 Albumin [Mass/Vol] 3.2 g/dL 3.2-5.0 [facility] Serum or plasma albumin/glob ulin mass ratioOrdered By: Donta Swenson on 06-14-2023 Albumin/Globulin [Mass ratio] 0.7 {ratio} 0.9-2.4 [facility] Serum or plasma calcium randa urement (mass/volume)Ordered By: Donta Swenson on 06-14-2023 Calcium [Mass/Vol] 9.0 mg/dL 8.5-10.1 [facility] Serum or plasma creatinine m easurement (mass/volume)Ordered By: Donta Swenson on 06-14-2023 Creatinine [Mass/Vol] 1.09 mg/dL 0.70-1.30 [facility] Comment on above: The validity of the calculated GFR & GFRAA in patients over 70 years has not been determined. Clinical correlation is essential. Serum or plasma urea nitroge n measurement (mass/volume)Ordered By: Donta Swenson on 06-14-2023 Urea nitrogen [Mass/Vol] 13 mg/dL 7-18 [facility] Squamous epithelial cells de tection in urine sediment by light microscopyOrdered By: Donta Swenson on 06-14-2023 Epithelial cells.squamous LM Ql (Urine sed) 0 SEEN /hpf 0-5 [facility] Thin prep Papanicolaou smear with manual screeningOrdered By: Donta Swenson on 06-14-2023 Thin prep Papanicolaou smear with manual screening 18 U/L 15-37 [facility] Thin prep Papanicolaou smear with manual screening 4 5-15 [facility] Urine blood detectionOrdered By: Donta Swenson on 06-14-2023 RBC Ql (U) Negative Negative [facility] RBC Ql (U) 0 SEEN /hpf 0-5 [facility] Urine clarityOrdered By: Goldie Swenson on 06-14-2023 Clarity (U) Clear Clear [facility] Urine color determinationOrd ered By: Donta Swenson on 06-14-2023 Color (U) Yellow Yellow [facility] Urine glucose detectionOrder ed By: Donta Swenson on 06-14-2023 Glucose Ql (U) Normal mg/dl Normal [facility] Urine leukocyte esterase det ection by dipstickOrdered By: Donta Swenson on 06-14-2023 Leukocyte esterase Test strip Ql (U) Negative Negative [facility] Urine pHOrdered By: Donta dickerson on 06-14-2023 pH (U) 7.0 [pH] 5.0 - 8.0 [facility] Urine sediment bacteria coun t by microscopy (number/high power field)Ordered By: Donta Swenson on 06-14-2023 Bacteria LM.HPF (Urine sed) [#/Area] 0 /[HPF] None Seen [facility] Urine specific gravity measu rementOrdered By: Donta Swenson on 06-14-2023 Specific gravity (U) [Rel density] 1.010 1.002-1.030 [facility] Urobilinogen Auto test strip Ql (U)Ordered By: Donta Swenson on 06-14-2023 Urobilinogen Ql (U) Normal mg/dl Normal [facility] Basophil percentageOrdered B y: Sergei Henley on 06-02-2023 Bilirubin [Mass/Vol] 0.30 mg/dL 0.20-1.00 [facility] Comment on above: For patients on eltr ombopag therapy, use of Dimension [place] TBIL is not recommended. Chloride [Moles/Vol] 109 mmol/L 98-107 [facility] Glucose [Mass/Vol] 103 mg/dL 74-106 [facility] Comment on above: Fasting Glucose resu lt from 100 to 125 mg/dL suggests IMPAIRED HOMEOSTASIS per A.D.A. criteria. Potassium [Moles/Vol] 4.6 mmol/L 3.5-5.1 [facility] Protein [Mass/Vol] 7.6 g/dL 6.4-8.2 [facility] Sodium [Moles/Vol] 141 mmol/L 136-145 [facility] WBC (Bld) [#/Vol] 6.3 10*3/uL 4.4-11.0 [facility] Blood erythrocytes count (nu mber/volume)Ordered By: Sergei Henley on 06-02-2023 RBC (Bld) [#/Vol] 4.21 10*6/uL 4.6-6.2 [facility] Blood hemoglobin measurement (mass/volume)Ordered By: Sergei Henley on 06-02-2023 Hemoglobin (Bld) [Mass/Vol] 13.7 g/dL 13.0-16.5 [facility] Blood platelet mean volumeOr dered By: Sergei Henley on 06-02-2023 Platelet mean volume (Bld) [Entitic vol] 9.8 fL 6.2-12.0 [facility] Determination of erythrocyte mean corpuscular volume (MCV)Ordered By: Sergei Henley on 06-02-2023 MCV (RBC) [Entitic vol] 100.7 fL 80-94 [facility] Erythrocyte sedimentation ra teOrdered By: Sergei Henley on 06-02-2023 ESR (Bld) [Velocity] 8 mm/h 0-20 [facility] Hematocrit Auto (Bld) [Volum e fraction]Ordered By: Seregi Henley on 06-02-2023 Hematocrit (Bld) [Volume fraction] 42.4 % 40-54 [facility] Iron measurement (mass/mass) Ordered By: Sergei Henley on 06-02-2023 Iron (Unsp spec) [Mass/Mass] 101 ug/dL 65-175 [facility] Laboratory - Chemistry and C hemistry - challengeOrdered By: Sergei Henley on 06-02-2023 ALP [Catalytic activity/Vol] 72 U/L 45-117 [facility] ALT [Catalytic activity/Vol] 35 U/L 16-61 [facility] CO2 [Moles/Vol] 28.0 mmol/L 21.0-32.0 [facility] Cobalamin (Vitamin B12) [Mass/Vol] 309 pg/mL 211-911 [facility] Globulin (S) [Mass/Vol] 4.2 g/dL 2.2-4.2 [facility] Magnesium [Mass/Vol] 2.6 mg/dL 1.6-2.6 [facility] Urea nitrogen/Creatinine [Mass ratio] 14.4 mg/mg 10-20 [facility] Laboratory - Hematology and Cell countsOrdered By: Sergei Henley on 06-02-2023 Erythrocyte distribution width (RBC) [Entitic vol] 47.6 fL 35.1-43.9 [facility] Erythrocyte distribution width (RBC) [Ratio] 12.8 % 11.6-14.6 [facility] MCH (RBC) [Entitic mass] 32.5 pg 27.0-32.0 [facility] MCHC Auto (RBC) [Mass/Vol]Or dered By: Sergei Henley on 06-02-2023 MCHC (RBC) [Mass/Vol] 32.3 g/dL 32-36 [facility] No Panel InformationOrdered By: Sergei Henley on 06-02-2023 Estimated GFR (MDRD) Amer 101 mL/min >60 [facility] Comment on above: GFR Calc Estimated GFR (MDRD) Non-Af Amer 84 mL/min >60 [facility] Comment on above: Non- GFR Calc Thyroid Stimulating Hormone (TSH) 1.26 uIU/mL 0.358-3.74 [facility] Vitamin D 25-Hydroxy 34.5 ng/mL [facility] Comment on above: Vitamin D 25(OH) Sta tus Range Deficiency <20 ng/mL (50nmol/L) Insufficiency 20 - 30 ng/mL (50 - 75 nmol/L) Sufficiency 30 - 100 ng/mL (75 - 250 nmol/L) Toxicity >100 ng/mL (>250 nmol/L) Platelets bldOrdered By: Mukesh yohan Kale on 06-02-2023 Platelets (Bld) [#/Vol] 261 10*3/uL 150-450 [facility] Serum or plasma albumin randa urement (mass/volume)Ordered By: Sergei Henley on 06-02-2023 Albumin [Mass/Vol] 3.4 g/dL 3.2-5.0 [facility] Serum or plasma albumin/glob ulin mass ratioOrdered By: Sergei Henley on 06-02-2023 Albumin/Globulin [Mass ratio] 0.8 {ratio} 0.9-2.4 [facility] Serum or plasma calcium randa urement (mass/volume)Ordered By: Sergei Henley on 06-02-2023 Calcium [Mass/Vol] 8.7 mg/dL 8.5-10.1 [facility] Serum or plasma creatinine m easurement (mass/volume)Ordered By: Sergei Henley on 06-02-2023 Creatinine [Mass/Vol] 0.98 mg/dL 0.70-1.30 [facility] Comment on above: The validity of the calculated GFR & GFRAA in patients over 70 years has not been determined. Clinical correlation is essential. Serum or plasma ferritin seema surement (mass/volume)Ordered By: Sergei Henley on 06-02-2023 Ferritin [Mass/Vol] 285 ng/mL 26-388 [facility] Serum or plasma urea nitroge n measurement (mass/volume)Ordered By: Sergei Henley on 06-02-2023 Urea nitrogen [Mass/Vol] 14 mg/dL 7-18 [facility] Thin prep Papanicolaou smear with manual screeningOrdered By: Sergei Henley on 06-02-2023 Thin prep Papanicolaou smear with manual screening 24 U/L 15-37 [facility] Thin prep Papanicolaou smear with manual screening 4 5-15 [facility] Basophil percentageOrdered B y: Eileen Ray on 04-25-2023 Bilirubin [Mass/Vol] 0.40 mg/dL 0.20-1.00 [facility] Comment on above: For patients on eltr ombopag therapy, use of Dimension [place] TBIL is not recommended. Chloride [Moles/Vol] 109 mmol/L 98-107 [facility] Glucose [Mass/Vol] 104 mg/dL 74-106 [facility] Comment on above: Fasting Glucose resu lt from 100 to 125 mg/dL suggests IMPAIRED HOMEOSTASIS per A.D.A. criteria. Potassium [Moles/Vol] 3.9 mmol/L 3.5-5.1 [facility] Protein [Mass/Vol] 7.0 g/dL 6.4-8.2 [facility] Sodium [Moles/Vol] 139 mmol/L 136-145 [facility] WBC (Bld) [#/Vol] 4.7 10*3/uL 4.4-11.0 [facility] Blood erythrocytes count (nu mber/volume)Ordered By: Eileen Ray on 04-25-2023 RBC (Bld) [#/Vol] 4.14 10*6/uL 4.6-6.2 [facility] Blood hemoglobin measurement (mass/volume)Ordered By: Eileen Ray on 04-25-2023 Hemoglobin (Bld) [Mass/Vol] 13.9 g/dL 13.0-16.5 [facility] Blood platelet mean volumeOr dered By: Eileen Ray on 04-25-2023 Platelet mean volume (Bld) [Entitic vol] 9.5 fL 6.2-12.0 [facility] Determination of erythrocyte mean corpuscular volume (MCV)Ordered By: Eileen Ray on 04-25-2023 MCV (RBC) [Entitic vol] 99.8 fL 80-94 [facility] Hematocrit Auto (Bld) [Volum e fraction]Ordered By: Eileen Ray on 04-25-2023 Hematocrit (Bld) [Volume fraction] 41.3 % 40-54 [facility] Laboratory - Chemistry and C hemistry - challengeOrdered By: Eileen Ray on 04-25-2023 ALP [Catalytic activity/Vol] 61 U/L 45-117 [facility] ALT [Catalytic activity/Vol] 50 U/L 16-61 [facility] CO2 [Moles/Vol] 27.0 mmol/L 21.0-32.0 [facility] Globulin (S) [Mass/Vol] 3.9 g/dL 2.2-4.2 [facility] Urea nitrogen/Creatinine [Mass ratio] 10.2 mg/mg 10-20 [facility] Laboratory - Hematology and Cell countsOrdered By: Eileen Ray on 04-25-2023 Erythrocyte distribution width (RBC) [Entitic vol] 47.3 fL 35.1-43.9 [facility] Erythrocyte distribution width (RBC) [Ratio] 12.9 % 11.6-14.6 [facility] MCH (RBC) [Entitic mass] 33.6 pg 27.0-32.0 [facility] MCHC Auto (RBC) [Mass/Vol]Or dered By: Eileen Ray on 04-25-2023 MCHC (RBC) [Mass/Vol] 33.7 g/dL 32-36 [facility] No Panel InformationOrdered By: Eileen Ray on 04-25-2023 Estimated Creatinine Clearance Calc 89.08 ml/min [facility] Estimated GFR (MDRD) Amer 100 mL/min >60 [facility] Comment on above: GFR Calc Estimated GFR (MDRD) Non-Af Amer 83 mL/min >60 [facility] Comment on above: Non- GFR Calc Platelets bldOrdered By: Nuno Ray on 04-25-2023 Platelets (Bld) [#/Vol] 185 10*3/uL 150-450 [facility] Serum or plasma albumin randa urement (mass/volume)Ordered By: Eileen Ray on 04-25-2023 Albumin [Mass/Vol] 3.1 g/dL 3.2-5.0 [facility] Serum or plasma albumin/glob ulin mass ratioOrdered By: Eileen Ray on 04-25-2023 Albumin/Globulin [Mass ratio] 0.8 {ratio} 0.9-2.4 [facility] Serum or plasma calcium randa urement (mass/volume)Ordered By: Eileen Ray on 04-25-2023 Calcium [Mass/Vol] 8.6 mg/dL 8.5-10.1 [facility] Serum or plasma creatinine m easurement (mass/volume)Ordered By: Eileen Ray on 04-25-2023 Creatinine [Mass/Vol] 0.98 mg/dL 0.70-1.30 [facility] Comment on above: The validity of the calculated GFR & GFRAA in patients over 70 years has not been determined. Clinical correlation is essential. Serum or plasma urea nitroge n measurement (mass/volume)Ordered By: Eileen Ray on 04-25-2023 Urea nitrogen [Mass/Vol] 10 mg/dL 7-18 [facility] Thin prep Papanicolaou smear with manual screeningOrdered By: Eileen Ray on 04-25-2023 Thin prep Papanicolaou smear with manual screening 73 U/L [facility] Thin prep Papanicolaou smear with manual screening 3 - [facility] Whole blood hemoglobin A1c/t otal hemoglobin ratio (mass fraction)Ordered By: Ar Torres on 04-25-2023 HbA1c (Bld) [Mass fraction] 5.6 % 3.8-5.6 [facility] Comment on above: Normal < 5.7 % Predi abetic 5.7 - 6.4 % Diabetic >or= 6.5 % Please note range changes. Absolute lymphocyte countOrd ered By: Ar Torres on 04-24-2023 Lymphocytes Auto (Unsp spec) [#/Vol] 1.02 10*3/uL 0.83-4.51 [facility] Basophil percentageOrdered B y: Ar Torres on 04-24-2023 Basophils/100 WBC (Bld) 0.8 % 0-1 [facility] Cholesterol [Mass/Vol] 210 mg/dL <200 [facility] Comment on above: <200 mg/dL Desirable 200-240 mg/dL Borderline >240 mg/dL High Risk Eosinophils/100 WBC (Bld) 4.3 % 0-5 [facility] Neutrophils (Bld) [#/Vol] 3.1 10*3/uL 2.0-7.7 [facility] Neutrophils/100 WBC (Bld) 64.2 % 47-70 [facility] Triglyceride [Mass/Vol] 258 mg/dL <199 [facility] Comment on above: The drugs N-Acetylcy steine and Metamizole may falsely depress this assay.Serum Triglycerides Reference Interval Normal <150 mg/dL Borderline high 150 - 199 mg/dL High 200 - 499 mg/dL Very High > or = 500 mg/dL Blood lymphocytes/100 leukoc ytesOrdered By: Ar Torres on 04-24-2023 Lymphocytes/100 WBC (Bld) 20.9 % 19-41 [facility] Blood monocytes/100 leukocyt esOrdered By: Ar Torres on 04-24-2023 Monocytes/100 WBC (Bld) 9.2 % 0-10 [facility] INR in Blood by Coagulation assayOrdered By: Ar Torres on 04-24-2023 INR Coag (Bld) [Relative time] 1.0 {INR} [facility] Laboratory - CoagulationOrde red By: Ar Torres on 04-24-2023 aPTT Coag (Bld) [Time] 22.7 s 24.1-36.2 [facility] PT Coag (PPP) [Time] 12.8 s 11.7-14.9 [facility] Laboratory - Hematology and Cell countsOrdered By: Ar Torres on 04-24-2023 Immature granulocytes/100 WBC (Bld) 0.600 % 0.0-0.9 [facility] Comment on above: IG% - Immature Granu locytes (promyelocytes, myelocytes and metamyelocytes) > 1% indicates that a LEFT SHIFT is Present. Nucleated RBC/100 WBC (Bld) [Ratio] 0 % 0-5 [facility] No Panel InformationOrdered By: Rommel Youssef on 04-24-2023 Activated Clotting Time 197 sec 74-137 [facility] No Panel InformationOrdered By: Ar Torres on 04-24-2023 Troponin I High Sensitivity 59680 pg/mL 3.0-78.0 [facility] Comment on above: Critical Result(s) C alled at: 08:06:06 04/24/2023 by: Kendal Mcqueen. Results read back by same. Please Note: New Test Units and Gender Specific Reference Ranges. For more information see Policy Stat Procedure [place] High Sensitivity Troponin (TNIH) and attachments. Serum or plasma cholesterol in HDL measurement (mass/volume)Ordered By: Ar Torres on 04-24-2023 Cholesterol in HDL [Mass/Vol] 71 mg/dL >40 [facility] Comment on above: The drugs N-Acetylcy steine and Metamizole may falsely depress this assay. Reference Range HDL <40 mg/dL Low HDL Cholesterol HDL >or= 60 mg/dL High HDL Cholesterol Serum or plasma cholesterol in VLDL measurement (mass/volume)Ordered By: Ar Torres on 04-24-2023 Cholesterol in VLDL [Mass/Vol] 52 mg/dL 5-40 [facility] Serum or plasma low density lipoprotein (LDL) cholesterol measurement (mass/volume)Ordered By: Ar david on 04-24-2023 Cholesterol in LDL [Mass/Vol] 87 mg/dL 0-130 [facility] Absolute lymphocyte countOrd ered By: Perez Tenzin on 04-23-2023 Lymphocytes Auto (Unsp spec) [#/Vol] 1.69 10*3/uL 0.83-4.51 [facility] Basophil percentageOrdered B y: Perez Tenzin on 04-23-2023 Basophils/100 WBC (Bld) 1.1 % 0-1 [facility] Chloride [Moles/Vol] 108 mmol/L 98-107 [facility] Eosinophils/100 WBC (Bld) 6.3 % 0-5 [facility] Glucose [Mass/Vol] 104 mg/dL 74-106 [facility] Comment on above: Fasting Glucose resu lt from 100 to 125 mg/dL suggests IMPAIRED HOMEOSTASIS per A.D.A. criteria. Neutrophils (Bld) [#/Vol] 2.5 10*3/uL 2.0-7.7 [facility] Neutrophils/100 WBC (Bld) 48.0 % 47-70 [facility] Potassium [Moles/Vol] 3.4 mmol/L 3.5-5.1 [facility] Sodium [Moles/Vol] 141 mmol/L 136-145 [facility] WBC (Bld) [#/Vol] 5.3 10*3/uL 4.4-11.0 [facility] Blood erythrocytes count (nu mber/volume)Ordered By: Perez Dave on 04-23-2023 RBC (Bld) [#/Vol] 4.28 10*6/uL 4.6-6.2 [facility] Blood hemoglobin measurement (mass/volume)Ordered By: Perez Dave on 04-23-2023 Hemoglobin (Bld) [Mass/Vol] 14.0 g/dL 13.0-16.5 [facility] Blood lymphocytes/100 leukoc ytesOrdered By: Perez Dave on 04-23-2023 Lymphocytes/100 WBC (Bld) 32.1 % 19-41 [facility] Blood monocytes/100 leukocyt esOrdered By: Perez Dave on 04-23-2023 Monocytes/100 WBC (Bld) 12.1 % 0-10 [facility] Blood platelet mean volumeOr dered By: Perez Dave on 04-23-2023 Platelet mean volume (Bld) [Entitic vol] 9.5 fL 6.2-12.0 [facility] Determination of erythrocyte mean corpuscular volume (MCV)Ordered By: Perez Dave on 04-23-2023 MCV (RBC) [Entitic vol] 98.8 fL 80-94 [facility] Hematocrit Auto (Bld) [Volum e fraction]Ordered By: Perez Dave on 04-23-2023 Hematocrit (Bld) [Volume fraction] 42.3 % 40-54 [facility] INR in Blood by Coagulation assayOrdered By: Perez Dave on 04-23-2023 INR Coag (Bld) [Relative time] 1.0 {INR} [facility] Laboratory - Chemistry and C hemistry - challengeOrdered By: Perez Dave on 04-23-2023 CO2 [Moles/Vol] 24.0 mmol/L 21.0-32.0 [facility] Urea nitrogen/Creatinine [Mass ratio] 12.1 mg/mg 10-20 [facility] Laboratory - CoagulationOrde red By: Perez Dave on 04-23-2023 aPTT Coag (Bld) [Time] 23.0 s 24.1-36.2 [facility] PT Coag (PPP) [Time] 12.9 s 11.7-14.9 [facility] Laboratory - Hematology and Cell countsOrdered By: Perez Dave on 04-23-2023 Erythrocyte distribution width (RBC) [Entitic vol] 45.7 fL 35.1-43.9 [facility] Erythrocyte distribution width (RBC) [Ratio] 12.6 % 11.6-14.6 [facility] Immature granulocytes/100 WBC (Bld) 0.400 % 0.0-0.9 [facility] Comment on above: IG% - Immature Granu locytes (promyelocytes, myelocytes and metamyelocytes) > 1% indicates that a LEFT SHIFT is Present. MCH (RBC) [Entitic mass] 32.7 pg 27.0-32.0 [facility] Nucleated RBC/100 WBC (Bld) [Ratio] 0 % 0-5 [facility] MCHC Auto (RBC) [Mass/Vol]Or dered By: Perez Dave on 04-23-2023 MCHC (RBC) [Mass/Vol] 33.1 g/dL 32-36 [facility] No Panel InformationOrdered By: Perez Dave on 04-23-2023 Estimated Creatinine Clearance Calc 70.40 ml/min [facility] Estimated GFR (MDRD) Amer 77 mL/min >60 [facility] Comment on above: GFR Calc Estimated GFR (MDRD) Non-Af Amer 63 mL/min >60 [facility] Comment on above: Non- GFR Calc Troponin I High Sensitivity 6 pg/mL 3.0-78.0 [facility] Comment on above: Please Note: New Joan t Units and Gender Specific Reference Ranges. For more information see Policy Stat Procedure [place] High Sensitivity Troponin (TNIH) and attachments. Platelets bldOrdered By: Priti Dave on 04-23-2023 Platelets (Bld) [#/Vol] 226 10*3/uL 150-450 [facility] Serum or plasma calcium randa urement (mass/volume)Ordered By: Perez Dave on 04-23-2023 Calcium [Mass/Vol] 8.8 mg/dL 8.5-10.1 [facility] Serum or plasma creatinine m easurement (mass/volume)Ordered By: [facility]sus Richardsdirk on 04-23-2023 Creatinine [Mass/Vol] 1.24 mg/dL 0.70-1.30 [facility] Comment on above: The validity of the calculated GFR & GFRAA in patients over 70 years has not been determined. Clinical correlation is essential. Serum or plasma urea nitroge n measurement (mass/volume)Ordered By: [facility] Tenzin on 04-23-2023 Urea nitrogen [Mass/Vol] 15 mg/dL - [facility] Thin prep Papanicolaou smear with manual screeningOrdered By: [facility]23 Thin prep Papanicolaou smear with manual screening 9 - [facility] Absolute lymphocyte counton 05-06-2022 Lymphocytes Auto (Unsp spec) [#/Vol] 1.23 10*3/uL 0.83-4.51 [facility] Work Phone: Basophil percentageon 2021 Basophils/100 WBC (Bld) 0.7 % 0-1 [facility] Work Phone: Bilirubin [Mass/Vol] 0.50 mg/dL 0.20-1.00 [facility] Work Phone: Comment on above: For patients on eltr ombopag therapy, use of Dimension [place] TBIL is not recommended. Chloride [Moles/Vol] 105 mmol/L 98-107 [facility] Work Phone: Cholesterol [Mass/Vol] 179 mg/dL <200 [facility] Work Phone: Comment on above: <200 mg/dL Desirable 200-240 mg/dL Borderline >240 mg/dL High Risk Eosinophils/100 WBC (Bld) 3.0 % 0-5 [facility] Work Phone: Glucose [Mass/Vol] 104 mg/dL 74-106 [facility] Work Phone: Comment on above: Fasting Glucose resu lt from 100 to 125 mg/dL suggests IMPAIRED HOMEOSTASIS per A.D.A. criteria. Neutrophils (Bld) [#/Vol] 4.0 10*3/uL 2.0-7.7 [facility] Work Phone: Neutrophils/100 WBC (Bld) 66.8 % 47-70 [facility] Work Phone: Potassium [Moles/Vol] 4.3 mmol/L 3.5-5.1 [facility] Work Phone: Comment on above: Slight Hemolysis, Re sult may be falsely increased. Protein [Mass/Vol] 8.3 g/dL 6.4-8.2 [facility] Work Phone: Sodium [Moles/Vol] 140 mmol/L 136-145 [facility] Work Phone: Triglyceride [Mass/Vol] 169 mg/dL <199 [facility] Work Phone: [phone] Comment on above: The drugs N-Acetylcy steine and Metamizole may falsely depress this assay.Serum Triglycerides Reference Interval Normal <150 mg/dL Borderline high 150 - 199 mg/dL High 200 - 499 mg/dL Very High > or = 500 mg/dL WBC (Bld) [#/Vol] 6.0 10*3/uL 4.4-11.0 [facility] Work Phone: Blood erythrocytes count (nu mber/volume)on 05-06-2022 RBC (Bld) [#/Vol] 4.85 10*6/uL 4.6-6.2 [facility] Work Phone: Blood hemoglobin measurement (mass/volume)on 05-06-2022 Hemoglobin (Bld) [Mass/Vol] 15.8 g/dL 13.0-16.5 [facility] Work Phone: Blood lymphocytes/100 leukoc yteson 05-06-2022 Lymphocytes/100 WBC (Bld) 20.5 % 19-41 [facility] Work Phone: Blood monocytes/100 leukocyt eson 05-06-2022 Monocytes/100 WBC (Bld) 8.5 % 0-10 [facility] Work Phone: Blood platelet mean volumeon 05-06-2022 Platelet mean volume (Bld) [Entitic vol] 9.9 fL 6.2-12.0 [facility] Work Phone: Determination of erythrocyte mean corpuscular volume (MCV)on 05-06-2022 MCV (RBC) [Entitic vol] 98.4 fL 80-94 [facility] Work Phone: Erythrocyte sedimentation ra bobby 05-06-2022 ESR (Bld) [Velocity] 17 mm[facility]h 0-[facility]: Hematocrit Auto (Bld) [Volum e fraction]on 05-06-2022 Hematocrit (Bld) [Volume fraction] 47.7 % 40-54 [facility] Work Phone: Laboratory - Chemistry and C hemistry - challengeon 05-06-2022 ALP [Catalytic activity/Vol] 82 U/L 45-117 [facility] Work Phone: ALT [Catalytic activity/Vol] 78 U/L 16-61 [facility] Work Phone: [phone] CO2 [Moles/Vol] 26.0 mmol/L 21.0-32.0 [facility] Work Phone: [phone] Cobalamin (Vitamin B12) [Mass/Vol] 289 pg/mL 211-911 [facility] Work Phone: Globulin (S) [Mass/Vol] 4.7 g/dL 2.2-4.2 [facility] Work Phone: [phone] Urea nitrogen/Creatinine [Mass ratio] 8.1 mg/mg 10-20 [facility] Work Phone: Laboratory - Hematology and Cell countson 05-06-2022 Erythrocyte distribution width (RBC) [Entitic vol] 46.7 fL 35.1-43.9 [facility] Work Phone: [phone] Erythrocyte distribution width (RBC) [Ratio] 12.9 % 11.6-14.6 [facility] Work Phone: Immature granulocytes/100 WBC (Bld) 0.500 % 0.0-0.9 [facility] Work Phone: Comment on above: IG% - Immature Granu locytes (promyelocytes, myelocytes and metamyelocytes) > 1% indicates that a LEFT SHIFT is Present. MCH (RBC) [Entitic mass] 32.6 pg 27.0-32.0 [facility] Work Phone: [phone] Nucleated RBC/100 WBC (Bld) [Ratio] 0 % 0-5 [facility] Work Phone: [phone] MCHC Auto (RBC) [Mass/Vol]on 05-06-2022 MCHC (RBC) [Mass/Vol] 33.1 g/dL 32-36 [facility] Work Phone: No Panel Informationon 05-06 Estimated GFR (MDRD) Amer 77 mL/min >60 [facility] Work Phone: Comment on above: GFR Calc Estimated GFR (MDRD) Non-Af Amer 64 mL/min >60 [facility] Work Phone: Comment on above: Non- GFR Calc Thyroid Stimulating Hormone (TSH) 0.99 uIU/mL 0.358-3.74 [facility] Work Phone: [phone] Vitamin D 25-Hydroxy 37.3 ng/mL [facility] Work Phone: [phone] Comment on above: Vitamin D 25(OH) Sta tus Range Deficiency <20 ng/mL (50nmol/L) Insufficiency 20 - 30 ng/mL (50 - 75 nmol/L) Sufficiency 30 - 100 ng/mL (75 - 250 nmol/L) Toxicity >100 ng/mL (>250 nmol/L) Platelets bldon 05-06-2022 Platelets (Bld) [#/Vol] 223 10*3/uL 150-450 [facility] Work Phone: [phone] Serum or plasma albumin randa urement (mass/volume)on 05-06-2022 Albumin [Mass/Vol] 3.6 g/dL 3.2-5.0 [facility] Work Phone: Serum or plasma albumin/glob ulin mass ratioon 05-06-2022 Albumin/Globulin [Mass ratio] 0.8 {ratio} 0.9-2.4 [facility] Work Phone: Serum or plasma calcium randa urement (mass/volume)on 05-06-2022 Calcium [Mass/Vol] 9.0 mg/dL 8.5-10.1 [facility] Work Phone: Serum or plasma cholesterol in HDL measurement (mass/volume)on 05-06-2022 Cholesterol in HDL [Mass/Vol] 78 mg/dL >40 [facility] Work Phone: Comment on above: The drugs N-Acetylcy steine and Metamizole may falsely depress this assay. Reference Range HDL <40 mg/dL Low HDL Cholesterol HDL >or= 60 mg/dL High HDL Cholesterol Serum or plasma cholesterol in VLDL measurement (mass/volume)on 05-06-2022 Cholesterol in VLDL [Mass/Vol] 34 mg/dL 5-40 [facility] Work Phone: [phone] Serum or plasma creatinine m easurement (mass/volume)on 05-06-2022 Creatinine [Mass/Vol] 1.24 mg/dL 0.70-1.30 [facility] Work Phone: Comment on above: The validity of the calculated GFR & GFRAA in patients over 70 years has not been determined. Clinical correlation is essential. Serum or plasma low density lipoprotein (LDL) cholesterol measurement (mass/volume)on 05-06-2022 Cholesterol in LDL [Mass/Vol] 67 mg/dL 0-130 [facility] Work Phone: Serum or plasma urea nitroge n measurement (mass/volume)on 05-06-2022 Urea nitrogen [Mass/Vol] 10 mg/dL 7-18 [facility] Work Phone: [phone] Thin prep Papanicolaou smear with manual screeningon 05-06-2022 Thin prep Papanicolaou smear with manual screening 54 U/L 15-37 [facility] Work Phone: Comment on above: Slight Hemolysis, Re sult may be falsely increased. Thin prep Papanicolaou smear with manual screening 9 5-15 [facility] Work Phone: Basophil percentageon 2021 Chloride [Moles/Vol] 108 mmol/L 98-107 [facility] Work [facility]: Cholesterol [Mass/Vol] 158 mg/dL <200 [facility] Work Phone: [phone] Comment on above: <200 mg/dL Desirable 200-240 mg/dL Borderline >240 mg/dL High Risk Glucose [Mass/Vol] 112 mg/dL 74-106 [facility] Work Phone: Comment on above: Fasting Glucose resu lt from 100 to 125 mg/dL suggests IMPAIRED HOMEOSTASIS per A.D.A. criteria. Potassium [Moles/Vol] 3.9 mmol/L 3.5-5.1 [facility] Work Phone: Sodium [Moles/Vol] 139 mmol/L 136-145 [facility] Work Phone: [phone] Triglyceride [Mass/Vol] 147 mg/dL [facility] Work Phone: Comment on above: The drugs N-Acetylcy steine and Metamizole may falsely depress this assay.Serum Triglycerides Reference Interval Normal <150 mg/dL Borderline high 150 - 199 mg/dL High 200 - 499 mg/dL Very High > or = 500 mg/dL WBC (Bld) [#/Vol] 6.1 10*3/uL 4.4-11.0 [facility] Work Phone: [phone] Blood erythrocytes count (nu mber/volume)on 10-31-2021 RBC (Bld) [#/Vol] 4.40 10*6/uL 4.6-6.2 [facility] Work Phone: [phone] Blood hemoglobin measurement (mass/volume)on 10-31-2021 Hemoglobin (Bld) [Mass/Vol] 14.2 g/dL 13.0-16.5 [facility] Work Phone: [phone] Blood platelet mean volumeon 10-31-2021 Platelet mean volume (Bld) [Entitic vol] 9.9 fL 6.2-12.0 [facility] Work Phone: [phone] Determination of erythrocyte mean corpuscular volume (MCV)on 10-31-2021 MCV (RBC) [Entitic vol] 98.2 fL 80-94 [facility] Work Phone: [phone] Hematocrit Auto (Bld) [Volum e fraction]on 10-31-2021 Hematocrit (Bld) [Volume fraction] 43.2 % 40-54 [facility] Work Phone: [phone] Laboratory - Chemistry and C hemistry - challengeon 10-31-2021 CO2 [Moles/Vol] 28.0 mmol/L 21.0-32.0 [facility] Work Phone: [phone] Urea nitrogen/Creatinine [Mass ratio] 10.0 mg/mg 10-20 [facility] Work Phone: [phone] Laboratory - Hematology and Cell countson 10-31-2021 Erythrocyte distribution width (RBC) [Entitic vol] 46.4 fL 35.1-43.9 [facility] Work Phone: [phone] Erythrocyte distribution width (RBC) [Ratio] 13.0 % 11.6-14.6 [facility] Work Phone: [phone] MCH (RBC) [Entitic mass] 32.3 pg 27.0-32.0 [facility] Work Phone: [phone] MCHC Auto (RBC) [Mass/Vol]on 10-31-2021 MCHC (RBC) [Mass/Vol] 32.9 g/dL 32-36 [facility] Work Phone: [phone] No Panel Informationon 10-31 Estimated Creatinine Clearance Calc 98.20 ml/min [facility] Work Phone: [phone] Estimated GFR (MDRD) Amer 112 mL/min >60 [facility] Work Phone: [phone] Comment on above: GFR Calc Estimated GFR (MDRD) Non-Af Amer 92 mL/min >60 [facility] Work Phone: Comment on above: Non- GFR Calc Thyroid Stimulating Hormone (TSH) 0.80 uIU/mL 0.358-3.74 [facility] Work Phone: Platelets bldon 10-31-2021 Platelets (Bld) [#/Vol] 188 10*3/uL 150-450 [facility] Work Phone: Serum or plasma calcium randa urement (mass/volume)on 10-31-2021 Calcium [Mass/Vol] 8.6 mg/dL 8.5-10.1 [facility] Work Phone: [phone] Serum or plasma cholesterol in HDL measurement (mass/volume)on 10-31-2021 Cholesterol in HDL [Mass/Vol] 66 mg/dL [facility] Work Phone: Comment on above: The drugs N-Acetylcy steine and Metamizole may falsely depress this assay. Reference Range HDL <40 mg/dL Low HDL Cholesterol HDL >or= 60 mg/dL High HDL Cholesterol Serum or plasma cholesterol in VLDL measurement (mass/volume)on 10-31-2021 Cholesterol in VLDL [Mass/Vol] 29 mg/dL 5-40 [facility] Work Phone: [phone] Serum or plasma creatinine m easurement (mass/volume)on 10-31-2021 Creatinine [Mass/Vol] 0.90 mg/dL 0.70-1.30 [facility] Work Phone: Comment on above: The validity of the calculated GFR & GFRAA in patients over 70 years has not been determined. Clinical correlation is essential. Serum or plasma low density lipoprotein (LDL) cholesterol measurement (mass/volume)on 10-31-2021 Cholesterol in LDL [Mass/Vol] 63 mg/dL 0-130 [facility] Work Phone: [phone] Serum or plasma urea nitroge n measurement (mass/volume)on 10-31-2021 Urea nitrogen [Mass/Vol] 9 mg/dL 7-18 [facility] Work Phone: [phone] Thin prep Papanicolaou smear with manual screeningon 10-31-2021 Thin prep Papanicolaou smear with manual screening 3 5-15 [facility] Work Phone: Absolute lymphocyte counton 10-30-2021 Lymphocytes Auto (Unsp spec) [#/Vol] 1.97 10*3/uL 0.83-4.51 [facility] Work Phone: Basophil percentageon 2021 Basophils/100 WBC (Bld) 0.4 % 0-1 [facility] Work Phone: Chloride [Moles/Vol] 106 mmol/L 98-107 [facility] Work [facility]: Eosinophils/100 WBC (Bld) 3.4 % 0-5 [facility] Work Phone: Glucose [Mass/Vol] 94 mg/dL 74-106 [facility] Work Phone: Neutrophils (Bld) [#/Vol] 4.2 10*3/uL 2.0-7.7 [facility] Work Phone: Neutrophils/100 WBC (Bld) 58.0 % 47-70 [facility] Work Phone: Potassium [Moles/Vol] 3.9 mmol/L 3.5-5.1 [facility] Work Phone: Comment on above: Moderate Hemolysis, Result may be falsely increased. Sodium [Moles/Vol] 140 mmol/L 136-145 [facility] Work Phone: WBC (Bld) [#/Vol] 7.2 10*3/uL 4.4-11.0 [facility] Work Phone: Blood erythrocytes count (nu mber/volume)on 10-30-2021 RBC (Bld) [#/Vol] 4.96 10*6/uL 4.6-6.2 [facility] Work Phone: Blood hemoglobin measurement (mass/volume)on 10-30-2021 Hemoglobin (Bld) [Mass/Vol] 16.4 g/dL 13.0-16.5 [facility] Work Phone: Blood lymphocytes/100 leukoc yteson 10-30-2021 Lymphocytes/100 WBC (Bld) 27.6 % 19-41 [facility] Work Phone: Blood monocytes/100 leukocyt eson 10-30-2021 Monocytes/100 WBC (Bld) 10.3 % 0-10 [facility] Work Phone: [phone] Blood platelet mean volumeon 10-30-2021 Platelet mean volume (Bld) [Entitic vol] 9.7 fL 6.2-12.0 [facility] Work Phone: [phone] Determination of erythrocyte mean corpuscular volume (MCV)on 10-30-2021 MCV (RBC) [Entitic vol] 96.4 fL 80-94 [facility] Work Phone: [phone] Hematocrit Auto (Bld) [Volum e fraction]on 10-30-2021 Hematocrit (Bld) [Volume fraction] 47.8 % 40-54 [facility] Work Phone: Laboratory - Chemistry and C hemistry - challengeon 10-30-2021 CO2 [Moles/Vol] 30.0 mmol/L 21.0-32.0 [facility] Work Phone: Magnesium [Mass/Vol] 2.3 mg/dL 1.6-2.6 [facility] Work Phone: [phone] Comment on above: Moderate Hemolysis, Result may be falsely increased. Urea nitrogen/Creatinine [Mass ratio] 16.0 mg/mg 10-20 [facility] Work Phone: Laboratory - Hematology and Cell countson 10-30-2021 Erythrocyte distribution width (RBC) [Entitic vol] 44.9 fL 35.1-43.9 [facility] Work Phone: [phone] Erythrocyte distribution width (RBC) [Ratio] 12.7 % 11.6-14.6 [facility] Work Phone: [phone] Immature granulocytes/100 WBC (Bld) 0.300 % 0.0-0.9 [facility] Work Phone: [phone] Comment on above: IG% - Immature Granu locytes (promyelocytes, myelocytes and metamyelocytes) > 1% indicates that a LEFT SHIFT is Present. MCH (RBC) [Entitic mass] 33.1 pg 27.0-32.0 [facility] Work Phone: [phone] Nucleated RBC/100 WBC (Bld) [Ratio] 0 % 0-5 [facility] Work Phone: [phone] MCHC Auto (RBC) [Mass/Vol]on 10-30-2021 MCHC (RBC) [Mass/Vol] 34.3 g/dL 32-36 [facility] Work Phone: [phone] No Panel Informationon 10-30 Troponin I High Sensitivity < 3 pg/mL 3.0-78.0 [facility] Work Phone: [phone] Comment on above: Please Note: New Joan t Units and Gender Specific Reference Ranges. For more information see Policy Stat Procedure [place] High Sensitivity Troponin (TNIH) and attachments. Troponin I High Sensitivity < 3 pg/mL 3.0-78.0 [facility] Work Phone: [phone] Comment on above: Please Note: New Joan t Units and Gender Specific Reference Ranges. For more information see Policy Stat Procedure [place] High Sensitivity Troponin (TNIH) and attachments. D-Dimer Quantitative (PE/DVT) 0.37 FEU/ug/m 0.27-0.49 [facility] Work Phone: [phone] Comment on above: NORMAL D-Dimer level (<0.50) indicates no DVT or PE. Estimated Creatinine Clearance Calc 74.27 ml/min [facility] Work Phone: [phone] Estimated GFR (MDRD) Amer 81 mL/min >60 [facility] Work Phone: [phone] Comment on above: GFR Calc Estimated GFR (MDRD) Non-Af Amer 67 mL/min >60 [facility] Work Phone: [phone] Comment on above: Non- GFR Calc Platelets bldon 10-30-2021 Platelets (Bld) [#/Vol] 235 10*3/uL 150-450 [facility] Work Phone: [phone] Serum or plasma calcium randa urement (mass/volume)on 10-30-2021 Calcium [Mass/Vol] 9.5 mg/dL 8.5-10.1 [facility] Work Phone: Serum or plasma creatinine m easurement (mass/volume)on 10-30-2021 Creatinine [Mass/Vol] 1.19 mg/dL 0.70-1.30 [facility] Work Phone: Comment on above: The validity of the calculated GFR & GFRAA in patients over 70 years has not been determined. Clinical correlation is essential. Serum or plasma urea nitroge n measurement (mass/volume)on 10-30-2021 Urea nitrogen [Mass/Vol] 19 mg/dL 7-18 [facility] Work Phone: Thin prep Papanicolaou smear with manual screeningon 10-30-2021 Thin prep Papanicolaou smear with manual screening 4 5-15 [facility] Work Phone: Office Visiton 01-20-2017 Dietary management education, guidance, and counseling (procedure) yes Invalid Interpretation Code [facility] Work Phone: [phone] Documentation of current medications (procedure) Done Invalid Interpretation Code [facility] Work Phone: [phone] Fall risk assessment No Invalid Interpretation Code [facility] Work Phone: [phone] Lab Report: Bilirubin, Direc ton 12-02-2016 Bilirubin (direct) 0.10 mg/dL Invalid Interpretation Code 0.00-0.30 [facility] Work Phone: [phone] Lab Report: Comprehensive Wa tabolic Profilon 12-02-2016 Alanine aminotransferase (ALT) 55 U/L Invalid Interpretation Code 12-78 [facility] Work Phone: [phone] Albumin 4.0 g/dL Invalid Interpretation Code 3.4-5.0 [facility] Work Phone: [phone] Albumin/Globulin Ratio 1 {ratio} Invalid Interpretation Code 0.9-2.4 [facility] Work Phone: [phone] Alkaline phosphatase (ALP) 89 U/L Invalid Interpretation Code 45-117 [facility] Work Phone: [phone] ALP enzyme act/vol (Bld) 89 U/L 45-117 [facility] Work Phone: [phone] Anion gap 5 mmol/L Invalid Interpretation Code 5-15 [facility] Work Phone: [phone] Anion gap molar conc 5 mmol/L 5-[address] [facility] Work Phone: [phone] Aspartate aminotransferase (AST) 38 U/L High 15-37 [facility] Work Phone: [phone] Bilirubin (total) 0.40 mg/dL Invalid Interpretation Code 0.20-1.00 [facility] Work Phone: [phone] BUN/Creatinine Ratio 16.4 RATIO Invalid Interpretation Code 10-20 [facility] Work Phone: [phone] Calcium 8.8 mg/dL Invalid Interpretation Code 8.5-10.1 [facility] Work Phone: [phone] Chloride 108 mmol/L High 98-107 [facility] Work Phone: [phone] CO2 25.0 mmol/L Invalid Interpretation Code 21.0-32.0 [facility] Work Phone: [phone] CO2 ppres (BldV) 25.0 mmol/L 21.0-32.0 [facility] Work Phone: [phone] Creatinine 1.10 mg/dL Invalid Interpretation Code 0.70-1.30 [facility] Work Phone: [phone] eGFR (non-black) 74 mL/min/{1.73_m2} Invalid Interpretation Code >60 [facility] Work Phone: [phone] eGFR (non-black) 90 mL/min/{1.73_m2} Invalid Interpretation Code >60 [facility] Work Phone: [phone] EST GFR - AA 90 mL/min >60 [facility] Work Phone: [phone] Globulin 3.9 g/dL High 2.3-3.5 [facility] Work Phone: [phone] Globulin mass conc (S) 3.9 g/dL High 2.3-3.5 [facility] Work Phone: [phone] Glucose 89 mg/dL Invalid Interpretation Code 70-110 [facility] Work Phone: [phone] Glucose mass conc 89 mg/dL 70-110 [facility] Work Phone: [phone] Potassium molar conc 4.1 mmol/L Invalid Interpretation Code 3.5-5.1 [facility] Work Phone: [phone] Protein 7.9 g/dL Invalid Interpretation Code 6.4-8.2 [facility] Work Phone: [phone] Sodium 138 mmol/L Invalid Interpretation Code 136-145 [facility] Work Phone: [phone] Urea nitrogen 18 mg/dL Invalid Interpretation Code 7-18 [facility] Work Phone: [phone] Lab Report: Lipid Profileon 12-02-2016 Cholesterol 146 mg/dL Invalid Interpretation Code 200 [facility] Work Phone: [phone] HDL Cholesterol 55 mg/dL Invalid Interpretation Code [facility] Phone: [phone] LDL Cholesterol 64 mg/dL Invalid Interpretation Code 0-130 [facility] Work Phone: [phone] Triglyceride 135 mg/dL Invalid Interpretation Code [facility] Work Phone: [phone] very low density lipoproteins 27 mg/dL Invalid Interpretation Code 5-40 [facility] Work Phone: [phone] Lab Report: PSA,Total - [place] al Screenon 12-02-2016 prostate specific antigen (PSA) screening 0.43 ng/mL Invalid Interpretation Code 0.00-4.00 [facility] Phone: [phone] Protein mass conc 0.43 ng/mL 0.00-4.00 [facility] Work Phone: [phone] PSA,TOT SCREEN 0.43 ng/mL Invalid Interpretation Code 0.00-4.00 [facility] Work Phone: [phone] Office Visit: [facility] 07-09-20 16 Documentation of current medications (procedure) Done Invalid Interpretation Code [facility] Phone: [phone] Protein mass conc Done [facility] Phone: [phone] Replaced Document: Fernanda Ybarra CG Observationson 07-09-2016 EKG QRS axis -27 deg [facility] Work Phone: [phone] electrocardiogram interpretation Sinus Rhythm Low voltage in limb leads. ABNORMAL Invalid Interpretation Code [facility] Work Phone: [phone] GE use only - for [employer] import when terms are not otherwise specified 406 ms Invalid Interpretation Code [facility] Work Phone: [phone] Interpretation Sinus Rhythm Low voltage in limb leads. ABNORMAL [facility] Work Phone: [phone] P [place] 42 deg [facility] Work Phone: [phone] P wave axis, electrocardiogram 42 deg Invalid Interpretation Code [facility] Work Phone: [phone] KS Interval 162 ms [facility] Work Phone: [phone] KS interval, electrocardiogram 162 ms Invalid Interpretation Code [facility] Work Phone: [phone] Pulse (Heart Rate) 75 /min Invalid Interpretation Code [facility] Phone: [phone] QRS axis, electrocardiogram -27 deg Invalid Interpretation Code [facility] Work Phone: [phone] QRS Duration 102 ms [facility] Work Phone: [phone] QRS duration, electrocardiogram 102 ms Invalid Interpretation Code [facility] Phone: [phone] QT Interval new path ms [facility] Work Phone: [phone] QT interval, electrocardiogram new path ms Invalid Interpretation Code [facility] Work Phone: [phone] QTc Chan 406 ms [facility] Work Phone: [phone] T [place] 26 deg [facility] Work Phone: [phone] T wave axis, electrocardiogram 26 deg Invalid Interpretation Code [facility] Phone: [phone] Office Visiton 01-05-2016 Dietary management education, guidance, and counseling (procedure) yes Invalid Interpretation Code [facility] Phone: [phone] Clinical 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 Left ventricular Ejection fraction 55 % Invalid Interpretation Code [facility] Phone: [phone] Lab Report: Thyroid Stim Hor nikole (TSH)on 11-01-2015 Thyroid stimulating hormone (TSH) 1.25 u[iU]/mL Invalid Interpretation Code 0.358-3.74 [facility] Work Phone: [phone] Office Visit: [facility] 05-05-20 15 Tobacco smoking status NHIS Former smoker [facility] Work Phone: [phone] Tobacco use CPHS Former smoker Invalid Interpretation Code [facility] Work Phone: [phone] Office Visiton 11-04-2014 cardiac risk group C Invalid Interpretation Code [facility] Work Phone: [phone] General cardiovascular disease 10Y risk [#] [place].D'Agostino N/A Invalid Interpretation Code [facility] Work Phone: [phone] Vital Signs Date Time Vital Sign Value Performing Clinician Faci lity 09-03-2024 03:53-0500 Body temperature 98 [degF] Dr. Eduard Henley MD Work Phone: [facility] 09-03-2024 03:53-0500 Diastolic blood pressure 100 mm[Hg] Dr. Eduard Henley MD Work Phone: [facility] 09-03-2024 03:53-0500 Heart rate 86 /min Dr. Eduard Henley MD Work Phone: [facility] 09-03-2024 03:53-0500 Respiratory rate 18 /min Dr. Eduard Henley MD Work Phone: [facility] 09-03-2024 03:53-0500 SaO2% (BldA) [Mass fraction] 98 % Dr. Eduard Henley MD Work Phone: [facility] 09-03-2024 03:53-0500 Systolic blood pressure 145 mm[Hg] Dr. Eduard Henley MD Work Phone: [facility] 09-03-2024 00:23-0500 Body mass index (BMI) [Ratio] 28.6 kg/m2 Dr. Eduard Henley MD Work Phone: [facility] 09-03-2024 00:23-0500 Body weight 95.[address] Eduard Henley MD Work Phone: [facility] 08-06-2024 13:53-0500 Body mass index (BMI) [Ratio] 28 kg/m2 Dr. Eduard Henley MD Work Phone: [facility] 08-06-2024 13:53-0500 Body weight 93.[address] Eduard Henley MD Work Phone: [facility] 08-06-2024 13:53-0500 Diastolic blood pressure 89 mm[Hg] Dr. Eduard Henley MD Work Phone: [facility] 08-06-2024 13:53-0500 Heart rate 89 /min Dr. Eduard Henley MD Work Phone: 3(085)595-[address] [place] [address] 08-06-2024 13:53-0500 Respiratory rate 16 /min Dr. Eduard Henley MD Work Phone: [phone])019-897668 [place] [address] 08-06-2024 13:53-0500 Systolic blood pressure 138 mm[Hg] Dr. Eduard Henley MD Work Phone: [facility] 10-02-2023 08:45-0500 Body temperature 98.6 [degF] Dr. Sergei Henley Work Phone: [facility] 10-02-2023 08:45-0500 Diastolic blood pressure 84 mm[Hg] Dr. Sergei Henley Work Phone: [facility] 10-02-2023 08:45-0500 Heart rate 83 /min Dr. Sergei Henley Work Phone: [facility] 10-02-2023 08:45-0500 Respiratory rate 18 /min Dr. Sergei Henley Work Phone: [facility] 10-02-2023 08:45-0500 SaO2% (BldA) [Mass fraction] 97 % Dr. Sergei Henley Work Phone: [facility] 10-02-2023 08:45-0500 Systolic blood pressure 117 mm[Hg] Dr. Sergei Henley Work Phone: [facility] 10-02-2023 06:44-0500 Body height 182.[address] Sergei Henley Work Phone: [facility] 10-02-2023 06:44-0500 Body mass index (BMI) [Ratio] 27.5 kg/m2 Dr. Sergei Henley Work Phone: [facility] 10-02-2023 06:44-0500 Body weight [address] Sergei Henley Work Phone: [facility] 09-11-2023 08:30-0500 Body height 182.[address] Sergei Henley Work Phone: [phone] [address] 09-11-2023 08:27-0500 Body mass index (BMI) [Ratio] 28.6 kg/m2 Dr. Sergei Henley Work Phone: [phone])072-978568 [place] [address] 09-11-2023 08:27-0500 Body weight 95.[address] Sergei Henley Work Phone: [facility] 09-11-2023 08:27-0500 Diastolic blood pressure 85 mm[Hg] Dr. Sergei Henley Work Phone: [facility] 09-11-2023 08:27-0500 Heart rate 77 /min Dr. Sergei Henley Work Phone: [facility] 09-11-2023 08:27-0500 Respiratory rate 18 /min Dr. Sergei Henley Work Phone: [facility] 09-11-2023 08:27-0500 Systolic blood pressure 141 mm[Hg] Dr. Sergei Henley Work Phone: [facility] 07-17-2023 08:17-0500 Body mass index (BMI) [Ratio] 28.9 kg/m2 Dr. Sergei Henley Work Phone: [phone])344-542768 [place] [address] 07-17-2023 08:17-0500 Body temperature 97.2 [degF] Dr. Sergei Henley Work Phone: [facility] 07-17-2023 08:17-0500 Body weight 96.[address] Sergei Henley Work Phone: [facility] 07-17-2023 08:17-0500 Diastolic blood pressure 88 mm[Hg] Dr. Sergei Henley Work Phone: [facility] 07-17-2023 08:17-0500 Heart rate 78 /min Dr. Sergei Henley Work Phone: [facility] 07-17-2023 08:17-0500 Respiratory rate 18 /min Dr. Sergei Henley Work Phone: [facility] 07-17-2023 08:17-0500 SaO2% (BldA) [Mass fraction] 98 % Dr. Sergei Henley Work Phone: [facility] 07-17-2023 08:17-0500 Systolic blood pressure 125 mm[Hg] Dr. Sergei Henley Work Phone: [facility] 06-15-2023 07:26-0500 Body temperature 97.9 [degF] Dr. Sergei Henley Work Phone: [facility] 06-15-2023 07:26-0500 Diastolic blood pressure 83 mm[Hg] Dr. Sergei Henley Work Phone: [facility] 06-15-2023 07:26-0500 Heart rate 80 /min Dr. Sergei Henley Work Phone: [facility] 06-15-2023 07:26-0500 Respiratory rate 16 /min Dr. Sergei Henley Work Phone: [facility] 06-15-2023 07:26-0500 SaO2% (BldA) [Mass fraction] 99 % Dr. Sergei Henley Work Phone: [facility] 06-15-2023 07:26-0500 Systolic blood pressure 119 mm[Hg] Dr. Sergei Henley Work Phone: [facility] 06-14-2023 21:15-0400 Body height 182.[address] Sergei Helney Work Phone: [facility] 06-14-2023 21:15-0400 Body mass index (BMI) [Ratio] 29 kg/m2 Dr. Sergei Henley Work Phone: [facility] 06-14-2023 21:15-0400 Body weight 97.[address] Sergei Henley Work Phone: [facility] 06-14-2023 21:09-0400 Body temperature 98.4 [degF] Dr. Sergei Henley Work Phone: [facility] 06-14-2023 21:09-0400 Diastolic blood pressure 100 mm[Hg] Dr. Sergei Henley Work Phone: [facility] 06-14-2023 21:09-0400 Heart rate 88 /min Dr. Sergei Henley Work Phone: 9([phone])219-733468 [place] [address] 06-14-2023 21:09-0400 Respiratory rate 22 /min Dr. Sergei Henley Work Phone: [facility] 06-14-2023 21:09-0400 SaO2% (BldA) [Mass fraction] 93 % Dr. Sergei Henley Work Phone: [facility] 06-14-2023 21:09-0400 Systolic blood pressure 152 mm[Hg] Dr. Sergei Henley Work Phone: [facility] 06-14-2023 16:36-0400 Body height 182.[address] Sergei Henley Work Phone: [facility] 06-14-2023 16:36-0400 Body mass index (BMI) [Ratio] 28.8 kg/m2 Dr. Sergei Henley Work Phone: [facility] 06-14-2023 16:36-0400 Body weight 96.[address] Sergei Henley Work Phone: 5([phone])049-567[address] [place] [address] 05-20-2023 13:29-0400 Body height 182.[address] Sergei Henley Work Phone: 8([phone])540-929064 [address] 05-20-2023 13:27-0400 Body mass index (BMI) [Ratio] 29.4 kg/m2 Dr. Sergei Henley Work Phone: 2([phone])773-209768 [place] [address] 05-20-2023 13:27-0400 Body weight 98.[address] Sergei Henley Work Phone: 3([phone])191-765933 [place] [address] 05-20-2023 13:27-0400 Diastolic blood pressure 80 mm[Hg] Dr. Sergei Henley Work Phone: 5(605)073-707433 [place] [address] 05-20-2023 13:27-0400 Heart rate 84 /min Dr. Sergei Henley Work Phone: 0(254)597-891233 [place] [address] 05-20-2023 13:27-0400 Respiratory rate 18 /min Dr. Sergei Henley Work Phone: 3(002)305-209433 [place] [address] 05-20-2023 13:27-0400 Systolic blood pressure 131 mm[Hg] Dr. Sergei Henley Work Phone: 6(497)249-380433 [place] [address] 04-25-2023 13:00-0400 Body mass index (BMI) [Ratio] 28.9 kg/m2 Dr. Sergei Henley Work Phone: 1(274)423-829468 [place] [address] 04-25-2023 10:23-0400 Body temperature 97.8 [degF] Dr. Sergei Henley Work Phone: 9(298)365-144833 [place] [address] 04-25-2023 10:23-0400 Diastolic blood pressure 78 mm[Hg] Dr. Sergei Henley Work Phone: 4(488)291-999133 [place] [address] 04-25-2023 10:23-0400 Heart rate 63 /min Dr. Sergei Henley Work Phone: [phone] [place] [address] 04-25-2023 10:23-0400 Respiratory rate 18 /min Dr. Sergei Henley Work Phone: [facility] 04-25-2023 10:23-0400 SaO2% (BldA) [Mass fraction] 96 % Dr. Sergei Henley Work Phone: [facility] 04-25-2023 10:23-0400 Systolic blood pressure 112 mm[Hg] Dr. Sergei Henley Work Phone: [facility] 04-24-2023 00:09-0400 Body height 182.[address] Sergei Henley Work Phone: [facility] 04-24-2023 00:09-0400 Body weight 96.[address] Sergei Henley Work Phone: [facility] 04-23-2023 23:38-0400 Body temperature 97.9 [degF] [facility] 04-23-2023 23:38-0400 Diastolic blood pressure 83 mm[Hg] [facility] 04-23-2023 23:38-0400 Heart rate 86 /min [facility] 04-23-2023 23:38-0400 Respiratory rate 17 /min [facility] 04-23-2023 23:38-0400 SaO2% (BldA) [Mass fraction] 99 % [facility] 04-23-2023 23:38-0400 Systolic blood pressure 126 mm[Hg] [facility] 04-23-2023 21:58-0400 Body height 182.88 cm [facility] 04-23-2023 21:58-0400 Body mass index (BMI) [Ratio] 29.5 kg/m2 [facility] 04-23-2023 21:58-0400 Body weight 98.7 kg [facility] 10-31-2021 10:52-0400 Body temperature 97.6 [degF] Dr. Sergei Henley Work Phone: [facility] Work Phone: 10-31-2021 10:52-0400 Diastolic blood pressure 86 mm[Hg] Dr. Sergei Henley Work Phone: [facility] Work Phone: 10-31-2021 10:52-0400 Heart rate 83 /min Dr. Sergei Henley Work Phone: [facility] Work Phone: 10-31-2021 10:52-0400 Respiratory rate 16 /min Dr. Sergei Henley Work Phone: [facility] Work Phone: 10-31-2021 10:52-0400 SaO2% (BldA) [Mass fraction] 96 % Dr. Sergei Henley Work Phone: [facility] Work Phone: 10-31-2021 10:52-0400 Systolic blood pressure 133 mm[Hg] Dr. Sergei Henley Work Phone: [facility] Work Phone: 10-30-2021 19:35-0400 Body height 182.[address] Sergei Henley Work Phone: [facility] Work Phone: 10-30-2021 19:35-0400 Body mass index (BMI) [Ratio] 29 kg/m2 Dr. Sergei Henley Work Phone: [facility] Work Phone: 10-30-2021 19:35-0400 Body weight [address] Sergei Henley Work Phone: [facility] Work Phone: 10-30-2021 19:18-0400 Body temperature 98.2 [degF] Dr. Sergei Henley Work Phone: [facility] Work Phone: 10-30-2021 19:18-0400 Diastolic blood pressure 89 mm[Hg] Dr. Sergei Henley Work Phone: [facility] Work Phone: 10-30-2021 19:18-0400 Heart rate 99 /min Dr. Sergei Henley Work Phone: [facility] Work Phone: 10-30-2021 19:18-0400 Respiratory rate 16 /min Dr. Sergei Henley Work Phone: [facility] Work Phone: 10-30-2021 19:18-0400 SaO2% (BldA) [Mass fraction] 99 % Dr. Sergei Henley Work Phone: [facility] Work Phone: 10-30-2021 19:18-0400 Systolic blood pressure 142 mm[Hg] Dr. Sergei Henley Work Phone: [facility] Work Phone: 10-30-2021 15:00-0400 Body mass index (BMI) [Ratio] 30.2 kg/m2 Dr. Sergei Henley Work Phone: [facility] Work Phone: 10-30-2021 15:00-0400 Body weight 100.[address] Sergei Henley Work Phone: [facility] Work Phone: 08-20-2021 07:38-0500 Diastolic blood pressure 75 mm[Hg] Dr. Sergei Henley Work Phone: [facility] Work Phone: 08-20-2021 07:38-0500 Systolic blood pressure 138 mm[Hg] Dr. Sergei Henley Work Phone: [facility] Work Phone: 08-14-2020 07:21-0500 Body mass index (BMI) [Ratio] 29.1 kg/m2 Dr. Sergei Henley Work Phone: [facility] Work Phone: 01-20-2017 08:42-0400 BMI (Body Mass Index) 28.34 kg/m2 [facility] Work Phone: 01-20-2017 08:42-0400 BP Diastolic 76 mm[Hg] Harumi DeFinis [facility] Work Phone: 01-20-2017 08:42-0400 BP Systolic 118 mm[Hg] Harumi DeFinis [facility] Work Phone: 01-20-2017 08:42-0400 Height 182.88 cm Harumi DeFinis [facility] Work Phone: 01-20-2017 08:42-0400 Pulse (Heart Rate) 88 /min Harumi DeFinis [facility] Work Phone: 01-20-2017 08:42-0400 Respiratory Rate 20 /min Harumi DeFinis [facility] Work Phone: 01-20-2017 08:42-0400 Weight 94.8 kg Harumi DeFinis [facility] Work Phone: 07-09-2016 08:40-0500 Heart rate 75 /min Harumi DeFinis [facility] Work Phone: 07-09-2016 08:26-0500 BMI (Body Mass Index) 28.33 kg/m2 [facility] Work Phone: 07-09-2016 08:26-0500 BP Diastolic 90 mm[Hg] Harumi DeFinis [facility] Work Phone: 07-09-2016 08:26-0500 BP Systolic 130 mm[Hg] Harumi DeFinis [facility] Work Phone: 07-09-2016 08:26-0500 BSA (Body Surface Area) 2.17 m2 Harumi DeFinis [facility] Work Phone: 07-09-2016 08:26-0500 Pulse (Heart Rate) 75 /min Harumi DeFinis [facility] Work Phone: 07-09-2016 08:26-0500 Respiratory Rate 16 /min [facility]ee [facility] Work Phone: 07-09-2016 08:26-0500 Weight 94.76 kg Zee [facility] Work Phone: 07-07-2010 15:49-0500 Height 182.88 [facility] Work Phone: Encounters Encounter Date Encounter Type Care Provider Facility Start: 11-09-2024 End: 11-09-2024 ambulatory Eduard Henley Facility:[facility] Start: 11-03-2024 ambulatory Jose Lockwood Facility:[facility] Start: 11-03-2024 Non-patient / Non-visit Dr. Vita SY -[facility] Start: 11-03-2024 End: 11-03-[address] Eduard Henley MD Work Phone: [facility] Work Phone: Start: 11-03-2024 End: 11-03-2024 Patient encounter procedure Mitchell BELLO -[facility] Work Phone: Start: 11-03-2024 End: 11-03-2024 ambulatory Eduard Henley Facility:[facility] Start: 09-28-2024 End: 09-28-[address] Eduard Henley MD -Laboratory, [facility] Start: 09-28-2024 End: 09-28-2024 ambulatory Eduard Henley Facility:[facility] Start: 09-03-2024 ambulatory Eduard Henley Faci lity:[facility] Start: 09-03-2024 Non-patient / Non-visit Dr. Francheska Ray MD -[facility] Work Phone: Start: 09-03-2024 End: 09-03-[address] Eileen Ray MD -Cardiovascular Services Work Phone: Start: 09-03-2024 End: 09-03-2024 Emergency department patient visit Dr. Jesus Romero DO -Emergency Department Work Phone: Start: 09-03-2024 End: 09-03-2024 ambulatory Eileen Nunocecy Facility:[facility] Start: 08-06-2024 End: 08-06-[address] Jose Lockwood MD -[facility] Work Phone: Start: 08-06-2024 End: 08-06-2024 ambulatory Jose Lockwood Facility:[facility] Start: 05-18-2024 ambulatory Eduard Bhatt lity:[facility] Start: 11-12-2023 End: 11-12-2023 ambulatory Charly JEWELL Facility:[facility] Start: 10-02-2023 Non-patient / Non-visit Dr. Mario Henley Work Phone: [facility] Start: 10-02-2023 End: 10-02-2023 Admission to same day surgery center Dr. Sergei Henley Work Phone: [facility] Work Phone: Start: 10-02-2023 End: 10-02-[address] Sergei Henley Work Phone: [facility] Work Phone: Start: 09-11-2023 End: 09-11-[address] Sergei Henley Work Phone: [facility] Work Phone: Start: 09-10-2023 End: 09-10-[address] Sergei Henley Work Phone: [facility] Work Phone: Start: 09-10-2023 End: 09-10-[address] Sergei Henley Work Phone: [facility] Start: 07-17-2023 End: 07-17-[address] Sergei Henley Work Phone: [facility] Work Phone: Start: 07-07-2023 End: 07-07-[address] Sergei Henley Work Phone: [facility] Work Phone: Start: 07-07-2023 End: 07-07-[address] Sergei Henley Work Phone: [facility] Work Phone: Start: 06-15-2023 Non-patient / Non-visit Dr. Mario Henley Work Phone: [facility] Work Phone: Start: 06-14-2023 End: 06-15-2023 Evaluation and management of inpatient Dr. Sergei Henley Work Phone: [facility] Work Phone: Start: 06-14-2023 End: 06-15-[address] Sergei Henley Work Phone: [facility] Work Phone: Start: 06-02-2023 End: 06-02-[address] Sergei Henley Work Phone: [facility] Work Phone: Start: 06-02-2023 End: 06-02-[address] Sergei Henley Work Phone: [facility] Start: 05-20-2023 End: 05-20-[address] Sergei Henley Work Phone: [facility] Work Phone: Start: 04-25-2023 Non-patient / Non-visit Dr. Mario Henley Work Phone: [facility] Work Phone: Start: 04-25-2023 Non-patient / Non-visit Dr. Mario Henley Work Phone: [facility] Start: 04-24-2023 Non-patient / Non-visit Dr. Mario eHnley Work Phone: [facility] Start: 04-23-2023 Non-patient / Non-visit Dr. Mario Henley Work Phone: [facility] Work Phone: Start: 04-23-2023 End: 04-25-2023 Evaluation and management of inpatient [facility] Work Phone: Start: 05-06-2022 End: 05-06-2022 ambulatory [facility] Work Phone: Start: 05-06-2022 End: 05-06-2022 Patient encounter procedure [facility] Start: 10-31-2021 Non-patient / Non-visit Dr. Mario Henley Work Phone: [facility] Start: 10-30-2021 Non-patient / Non-visit Dr. Mario Henley Work Phone: [facility] Start: 10-30-2021 End: 10-31-2021 Evaluation and management of inpatient Dr. Sergei Henley [facility] Start: 08-20-2021 End: 08-20-[address] Sergei Henley Work Phone: [facility] Procedures Date Procedure Procedure Detail Performing Clinician Start: 11-03-2024 Radionuclide imaging of perfusion of myocardium under exercise stress Dr. Eduard Henley MD Work Phone: Start: 09-03-2024 SARS-CoV-2, Influenz a & RSV (PCR) Dr. Eduard Henley MD Work Phone: Start: 09-03-2024 X-ray of chest, PA a nd lateral views Dr. Eduard Henley MD Work Phone: Start: 10-02-[address] Neeraj Henley Work Phone: Start: 06-14-2023 Computed tomography of abdomen and pelvis with intravenous contrast Dr. Sergei Henley Work Phone: Start: 04-24-2023 MRI of brain without contrast Dr. Sergei Henley Work Phone: Start: 04-23-2023 Plain chest X-ray Start: 04-23-2023 CT angiography of he ad and neck Start: 04-23-2023 CT of head without contrast Start: 10-31-2021 Radionuclide imaging of perfusion of myocardium under exercise stress Dr. Sergei Henley Work Phone: Start: 10-30-2021 CT angiography of ch est with contrast Dr. Sergei Henley Work Phone: Start: 10-30-2021 Plain chest X-ray Dr. Cliff Henley Work Phone: Start: 01-20-2017 End: 01-20-2017 Follow Up Appt 6 months Brain Whyte MD Start: 01-20-2017 End: 01-20-2017 MM Brain Whyte MD Start: 11-28-2016 End: 12-02-2016 [...] Brain Whyte MD Start: 01-05-2016 End: 01-05-2016 DONI Whyte MD Start: 01-05-2016 End: 01-05-2016 Dietary management education, guidance, and counseling Zee King Start: 01-05-2016 End: 01-05-2016 Follow Up Appt 6 months Brain Whyte MD Start: 01-05-2016 End: 01-05-2016 DONI Whyte MD Start: 10-31-2015 End: 11-01-2015 *Hepatic [...] PA-C Work Phone: Start: 05-05-2015 End: 05-30-2016 PF Bhavani Ralph PA-C Work Phone: Start: 05-05-2015 End: 05-30-2016 Electrocardiogram, complete Bhavani Ralph PA-C Work Phone: Start: 05-05-2015 End: 07-01-2016 Follow Up Appt 6 months Bhavani grajeda PA-C Work Phone: Start: 05-05-2015 End: 05-30-2016 PF Bhavani Ralph PA-C Work Phone: Start: 05-01-2015 [...] PA-C Work Phone: Start: 05-02-2014 End: 04-26-2015 PFM Bhavani Ralph PA-C Work Phone: Start: 05-02-2014 End: 04-26-2015 Follow Up Appt 6 months Bhavani grajeda PA-C Work Phone: Start: 05-02-2014 End: 04-26-2015 PFM Bhavani Ralph PA-C Work Phone: Start: 04-11-2014 [...] Start: 10-25-2013 End: 10-25-2013 Electrocardiogram, complete Brain Whyte MD Start: 10-25-2013 End: 10-25-2013 [...] Treatment Date Care Activity Detail Author Start: 09-03-2024 [facility] Start: 10-02-2023 Patient discharge [facility] Start: 06-15-2023 Patient discharge [facility] Start: 06-14-2023 Following clinical pathway protocol [facility] Start: 06-14-2023 Assessment of risk of venous thromboembolism [facility] Start: 06-14-2023 Inhalation therapy procedure [facility] Start: 06-14-2023 Insertion of catheter into peripheral vein [facility] Start: 06-14-2023 Providing care according to standard [facility] Start: 06-14-2023 Provision of activity privileges [facility] Start: 06-14-2023 [facility] Start: 06-14-2023 Admission procedure [facility] Start: 06-14-2023 Verification routine [facility] Start: 06-14-2023 Hospital admission, emergency, from emergency room, medical nature [facility] Start: 04-25-2023 Patient referral [facility] Work Phone: Start: 04-25-2023 Patient discharge [facility] Start: 04-24-2023 Cardiac monitoring [facility] Start: 04-24-2023 Cardiac rehabilitation - phase 1 [facility] Start: 04-24-2023 Cardiac rehabilitation - phase 2 [facility] Start: 04-24-2023 Patient discharge [facility] Start: 04-24-2023 Systemic arterial pressure monitoring [facility] Start: 04-24-2023 End: 04-24-2023 Taking patient vital signs [facility] Start: 04-24-2023 Vascular disease risk assessment [facility] Start: 04-24-2023 Vital signs measurements [facility] Start: 04-24-2023 End: 04-24-2023 [facility] Start: 04-24-2023 End: 04-24-2023 Notification of physician [facility] Start: 04-24-2023 Patient education [facility] Start: 04-24-2023 Provision of activity privileges [facility] Start: 04-24-2023 Pulse taking [facility] Start: 04-24-2023 Wound care [facility] Start: 04-24-2023 Referral to players club representative [facility] Start: 04-24-2023 Following clinical pathway protocol [facility] Start: 04-24-2023 Assessment of risk of venous thromboembolism [facility] Start: 04-24-2023 Cardiac monitoring [facility] Start: 04-24-2023 Catheterization of vein [facility] Start: 04-24-2023 Elevation of head of bed [facility] Start: 04-24-2023 Exercises [facility] Start: 04-24-2023 Implementation of planned interventions [facility] Start: 04-24-2023 Insertion of catheter into peripheral vein [facility] Start: 04-24-2023 Measuring intake and output [facility] Start: 04-24-2023 Notification of physician [facility] Start: 04-24-2023 Providing care according to standard [facility] Start: 04-24-2023 Provision of activity privileges [facility] Start: 04-24-2023 Referral to occupational therapist [facility] Start: 04-24-2023 Referral to service [facility] Start: 04-24-2023 Speech therapy assessment [facility] Start: 04-24-2023 Tobacco use cessation education [facility] Start: 04-24-2023 [facility] Start: 04-24-2023 Vital signs measurements [facility] Start: 04-23-2023 Electrocardiographic procedure [facility] Start: 04-23-2023 Verification routine [facility] Start: 04-23-2023 Admission procedure [facility] Start: 04-23-2023 Oxygen therapy [facility] Start: 04-23-2023 [facility] Start: 01-26-2018 End: 01-26-2018 Appointment Appointment [facility] Work Phone: Start: 08-12-2017 End: 08-12-2017 Appointment Appointment [facility] Work Phone: Start: 06-03-2017 End: 12-06-2016 *Hepatic Function Panel *Hepatic Function Panel [facility] Work Phone: Start: 06-03-2017 End: 12-06-2016 Lipid panel [AGGREGATE] *Lipid Profile CC PCP [facility] Work Phone: Start: 06-03-2017 End: 12-06-2016 *Hepatic Function Panel *Hepatic Function Panel [facility] Work Phone: Start: 06-03-2017 End: 12-06-2016 Lipid panel [AGGREGATE] *Lipid Profile CC PCP [facility] Work Phone: Start: 01-20-2017 End: 01-20-2017 Appointment Appointment [facility] Work Phone: Start: 01-20-2017 End: 01-20-2017 Appointment Appointment [facility] Work Phone: Start: 01-20-2017 End: 01-20-2017 Follow Up Appt 6 months Follow Up Appt 6 months [facility] Work Phone: Start: 01-20-2017 End: 01-20-2017 MMM MMM [facility] Work Phone: Start: 11-28-2016 End: 12-02-2016 *Hepatic Function Panel *Hepatic Function Panel [facility] Work Phone: Start: 11-28-2016 End: 12-02-2016 Lipid panel [AGGREGATE] *Lipid Profile CC PCP [facility] Work Phone: Start: 11-28-2016 End: 12-02-2016 *Hepatic Function Panel *Hepatic Function Panel [facility] Work Phone: Start: 11-28-2016 End: 12-02-2016 Lipid panel [AGGREGATE] *Lipid Profile CC PCP [facility] Work Phone: Start: 07-09-2016 End: 07-09-2016 Follow Up Appt 6 months Follow Up Appt 6 months [facility] Work Phone: Start: 07-09-2016 End: 07-09-2016 PFM PFM [facility] Work Phone: Start: 07-09-2016 End: 07-09-2016 Follow Up Appt 6 months Follow Up Appt 6 months [facility] Work Phone: Start: 07-09-2016 End: 07-09-2016 PFM PFM [facility] Work Phone: Start: 05-03-2016 End: 05-30-2016 *Hepatic Function Panel *Hepatic Function Panel [facility] Work Phone: Start: 05-03-2016 End: 05-30-2016 Lipid panel [AGGREGATE] *Lipid Profile CC PCP [facility] Work Phone: Start: 05-03-2016 End: 05-30-2016 *Hepatic Function Panel *Hepatic Function Panel [facility] Work Phone: Start: 05-03-2016 End: 05-30-2016 Lipid panel [AGGREGATE] *Lipid Profile CC PCP [facility] Work Phone: Start: 01-05-2016 End: 01-05-2016 Follow Up Appt 6 months Follow Up Appt 6 months [facility] Work Phone: Start: 01-05-2016 End: 01-05-2016 MMM MMM [facility] Work Phone: Start: 01-05-2016 End: 01-05-2016 Follow Up Appt 6 months Follow Up Appt 6 months [facility] Work Phone: Start: 01-05-2016 End: 01-05-2016 MMM MMM [facility] Work Phone: Start: 10-31-2015 End: 11-01-2015 *Hepatic Function Panel *Hepatic Function Panel [facility] Work Phone: Start: 10-31-2015 End: 11-01-2015 Lipid panel [AGGREGATE] *Lipid Profile CC PCP [facility] Work Phone: Start: 10-31-2015 End: 11-01-2015 *Hepatic Function Panel *Hepatic Function Panel [facility] Work Phone: Start: 10-31-2015 End: 11-01-2015 Lipid panel [AGGREGATE] *Lipid Profile CC PCP [facility] Work Phone: Start: 05-05-2015 End: 05-01-2015 *Hepatic Function Panel *Hepatic Function Panel [facility] Work Phone: Start: 05-05-2015 End: 05-30-2016 Ecg routine ecg w/least 12 lds w/i&r EKG (In office) [facility] Work Phone: Start: 05-05-2015 End: 05-05-2015 Follow Up Appt 6 months Follow Up Appt 6 months [facility] Work Phone: Start: 05-05-2015 End: 05-01-2015 Lipid panel [AGGREGATE] *Lipid Profile CC PCP [facility] Work Phone: Start: 05-05-2015 End: 05-30-2016 PFM PFM [facility] Work Phone: Start: 05-05-2015 End: 05-01-2015 *Hepatic Function Panel *Hepatic Function Panel [facility] Work Phone: Start: 05-05-2015 End: 05-30-2016 Electrocardiogram, complete EKG (In office) [facility] Work Phone: Start: 05-05-2015 End: 05-05-2015 Follow Up Appt 6 months Follow Up Appt 6 months [facility] Work Phone: Start: 05-05-2015 End: 05-01-2015 Lipid panel [AGGREGATE] *Lipid Profile CC PCP [facility] Work Phone: Start: 05-05-2015 End: 05-30-2016 PFM PFM [facility] Work Phone: Start: 11-04-2014 End: 04-26-2015 *Hepatic Function Panel *Hepatic Function Panel [facility] Work Phone: Start: 11-04-2014 End: 04-26-2015 Follow Up Appt 6 months Follow Up Appt 6 months [facility] Work Phone: Start: 11-04-2014 End: 04-26-2015 Lipid panel [AGGREGATE] *Lipid Profile CC PCP [facility] Work Phone: Start: 11-04-2014 End: 04-26-2015 MMM MMM [facility] Work Phone: Start: 11-04-2014 End: 04-26-2015 *Hepatic Function Panel *Hepatic Function Panel [facility] Work Phone: Start: 11-04-2014 End: 04-26-2015 Follow Up Appt 6 months Follow Up Appt 6 months [facility] Work Phone: Start: 11-04-2014 End: 04-26-2015 Lipid panel [AGGREGATE] *Lipid Profile CC PCP [facility] Work Phone: Start: 11-04-2014 End: 04-26-2015 MMM MMM [facility] Work Phone: Start: 10-31-2014 End: 11-03-2014 *Hepatic Function Panel *Hepatic Function Panel [facility] Work Phone: Start: 10-31-2014 End: 11-03-2014 Lipid panel [AGGREGATE] *Lipid Profile CC PCP [facility] Work Phone: Start: 10-31-2014 End: 11-03-2014 *Hepatic Function Panel *Hepatic Function Panel [facility] Work Phone: Start: 10-31-2014 End: 11-03-2014 Lipid panel [AGGREGATE] *Lipid Profile CC PCP [facility] Work Phone: Start: 05-02-2014 End: 04-26-2015 Follow Up Appt 6 months Follow Up Appt 6 months [facility] Work Phone: Start: 05-02-2014 End: 04-26-2015 PFM PFM [facility] Work Phone: Start: 05-02-2014 End: 04-26-2015 Follow Up Appt 6 months Follow Up Appt 6 months [facility] Work Phone: Start: 05-02-2014 End: 04-26-2015 PFM PFM [facility] Work Phone: Start: 04-11-2014 End: 05-02-2014 *Hepatic Function Panel *Hepatic Function Panel [facility] Work Phone: Start: 04-11-2014 End: 05-02-2014 Lipid panel [AGGREGATE] *Lipid Profile CC PCP [facility] Work Phone: Start: 04-11-2014 End: 05-02-2014 *Hepatic Function Panel *Hepatic Function Panel [facility] Work Phone: Start: 04-11-2014 End: 05-02-2014 Lipid panel [AGGREGATE] *Lipid Profile CC PCP [facility] Work Phone: Start: 10-25-2013 End: 11-09-2013 *Hepatic Function Panel *Hepatic Function Panel [facility] Work Phone: Start: 10-25-2013 End: 10-25-2013 Ecg routine ecg w/least 12 lds w/i&r EKG (In office) [facility] Work Phone: Start: 10-25-2013 End: 10-25-2013 Follow Up Appt 6 months Follow Up Appt 6 months [facility] Work Phone: Start: 10-25-2013 End: 11-09-2013 Lipid panel [AGGREGATE] *Lipid Profile CC PCP [facility] Work Phone: Start: 10-25-2013 End: 10-25-2013 MMM MMM [facility] Work Phone: Start: 10-25-2013 End: 10-25-2013 Nuclear stress test -exercise Nuclear stress test -exercise [facility] Work Phone: Start: 10-25-2013 End: 11-09-2013 *Hepatic Function Panel *Hepatic Function Panel [facility] Work Phone: Start: 10-25-2013 End: 10-25-2013 Electrocardiogram, complete EKG (In office) [facility] Work Phone: Start: 10-25-2013 End: 10-25-2013 Follow Up Appt 6 months Follow Up Appt 6 months [facility] Work Phone: Start: 10-25-2013 End: 11-09-2013 Lipid panel [AGGREGATE] *Lipid Profile CC PCP [facility] Work Phone: Start: 10-25-2013 End: 10-25-2013 MMM MMM [facility] Work Phone: Start: 10-25-2013 End: 10-25-2013 Nuclear stress test -exercise Nuclear stress test -exercise [facility] Work Phone: Start: 05-11-2013 End: 06-07-2013 *Hepatic Function Panel *Hepatic Function Panel [facility] Work Phone: Start: 05-11-2013 End: 06-07-2013 Lipid panel [AGGREGATE] *Lipid Profile [facility] Work Phone: Start: 05-11-2013 End: 06-07-2013 *Hepatic Function Panel *Hepatic Function Panel [facility] Work Phone: Start: 05-11-2013 End: 06-07-2013 Lipid panel [AGGREGATE] *Lipid Profile [facility] Work Phone: Start: 01-11-2013 End: 01-11-2013 Follow Up Appt 6 months Follow Up Appt 6 months [facility] Work Phone: Start: 01-11-2013 End: 01-11-2013 PFM PFM [facility] Work Phone: Start: 01-11-2013 End: 01-11-2013 Follow Up Appt 6 months Follow Up Appt 6 months [facility] Work Phone: Start: 01-11-2013 End: 01-11-2013 PFM PFM [facility] Work Phone: Start: 11-09-2012 End: 11-11-2012 *Hepatic Function Panel *Hepatic Function Panel [facility] Work Phone: Start: 11-09-2012 End: 11-11-2012 Lipid panel [AGGREGATE] *Lipid Profile [facility] Work Phone: Start: 11-09-2012 End: 11-11-2012 *Hepatic Function Panel *Hepatic Function Panel [facility] Work Phone: Start: 11-09-2012 End: 11-11-2012 Lipid panel [AGGREGATE] *Lipid Profile [facility] Work Phone: Start: 06-01-2012 End: 06-10-2012 *Hepatic Function Panel *Hepatic Function Panel [facility] Work Phone: Start: 06-01-2012 End: 12-30-2012 Follow Up Appt 6 months Follow Up Appt 6 months [facility] Work Phone: Start: 06-01-2012 End: 06-10-2012 Lipid panel [AGGREGATE] *Lipid Profile [facility] Work Phone: Start: 06-01-2012 End: 06-10-2012 *Hepatic Function Panel *Hepatic Function Panel [facility] Work Phone: Start: 06-01-2012 End: 12-30-2012 Follow Up Appt 6 months Follow Up Appt 6 months [facility] Work Phone: Start: 06-01-2012 End: 06-10-2012 Lipid panel [AGGREGATE] *Lipid Profile [facility] Work Phone: Start: 11-28-2011 End: 11-28-2011 Follow Up Appt 6 months Follow Up Appt 6 months [facility] Work Phone: Start: 11-28-2011 End: 11-28-2011 Follow Up Appt 6 months Follow Up Appt 6 months [facility] Work Phone: Lipid 1996 panel - S sharon or Plasma [facility] Patient Education [facility] Work Phone: Patient referral [facility] Work Phone: [facility] Immunizations Immunization Date Immunization Notes Care Provider Fa cility 05-11-2021 Influenza, high dose seasonal Dr. Eduard Henley MD Work Phone: [facility] 05-11-2021 influenza, high dose seasonal, preservative-free Dr. Sergei Henley Work Phone: [facility] 06-25-[address] Sergei Henley Work Phone: [facility] 01-11-2014 tetanus and diphther ia toxoids, adsorbed, preservative free, for adult use (2 Lf of tetanus toxoid and 2 Lf of diphtheria toxoid) Dr. Sergei Henley Work Phone: [facility] Payers Date Payer Category Payer Private Health Insurance [id number] [id number] Self-pay [id number] 2011 Private Health Insurance [id number] Unknown [id number] 2.16.8 [id number] Unknown [id number] 2.16.8 [id number] Unknown [id number] 2.16.8 [id number] Unknown [id number] 2.16.8 [id number] Unknown [id number] 2.16.8 [id number] Unknown [id number] 2.16.8 [id number] Unknown [id number] 2.16.8 [id number] Unknown [id number] 2.16.8 [id number] Unknown [id number] 2.16.8 [id number] Unknown [id number] 2.16.8 [id number] Social History Date Type Detail Facility Start: 10-30-2021 End: 09-25-2023 Tobacco smoking status NHIS Unknown if ever smoked [facility] Start: 10-23-2017 Heavy [facility] Start: 10-23-2017 None [facility] Start: 10-23-2017 Spouse/ Signif icant Other [facility] Start: 10-23-2017 Cigars [facility] Start: 1965 Sex Assigned At Male [facility] Start: 04-25-2023 - [facility] Start: 10-27-2024 Tobacco smoking status NHIS Ex-smoker (finding) [facility] Start: 11-07-2024 Sex Male (finding) [facility] Medical Equipment Procedure Code Equipment Code Equipment Origin al Text Equipment Identifier Dates Drug-eluting coronary artery stent, [id number] lymer-coated [id number] FDA Start: 04-24-2023 Drug-eluting coronary artery stent, [id number]-cspibrqvyuobx-ol lymer-coated ()[id number] 02 FDA Start: 04-24-2023 Goals Date Patient Goal Desired Activity /State Functional Status Date Assessment Result Facility 06-15-2023 Functional status Activity Ability Indepe ndent [facility] Work Phone: 04-25-2023 Functional status Ambulates;Up a d jovon;Bathroom Privilege [facility] Work Phone: 10-31-2021 Functional status Independent [facility] Work Phone: Mental Status Date Assessment Result Facility 09-03-2024 Cognitive function Voice/Name [facility] Work Phone: 10-02-2023 Cognitive function Voice/Name [facility] Work Phone: 06-14-2023 Cognitive function Appropriate;Cooperativ e [facility] Work Phone: 04-25-2023 Cognitive function Voice/Name [facility] Work Phone: 04-23-2023 Cognitive function Voice/Name [facility] Work Phone: 10-31-2021 Cognitive function Voice/Name [facility] Work Phone: 10-30-2021 Cognitive function Voice/Name [facility] Work Phone: Clinical Notes 06-11-2010 to 08-06-2024 Note Date & Type Note Facility 08-06-2024 Evaluation note Diagnosis Onset Date Resolution HLD (hyperlipidemia) chronic August 06, 2024 1:33pm Presence of coronary angioplasty implant and graft April 25, 2023 chronic August 06, 2024 1:33pm [facility] Work Phone: 1(484) 862-872002-22-2024 Procedure [facility] 10-02-2023 Procedure [facility]02-22-2024 Procedure note [facility]02-22-2024 Procedure [facility] 06-15-2023 Progress note Author Rommel Youssef [facility] June 15, 2023 10:24am Note Date/Time June 15, 2023 7 :38am [facility] Medical Records Department [address] [place] [address] Progress Note - Hospitalist 06/15/2333 MR#: [id number] Acct: [id number] Name: JOVANY MUÑIZ Rep #:[id number] : 1965 57 From: Rommel Youssef DO PCP: Dr. Sergei Henley MD Status: ADM FELICITA Location: NE3 [id number] Subjective Subjective Feeling better. Tolerated full liquid diet. Still with abdominal pain, but much better. Objective Data Objective Data Vital Signs: Vital Signs Temp Pulse Resp BP Pulse Ox O2 Del Method 36.6 C 80 16 119/83 H 99 Room Air 06/15/23 07:26 06/15/23 07:26 06/15/23 07:26 06/15/23 07:26 06/15/23 07:26 06/15/23 07:26 Oxygen Delivery Method Room Air Weight: 97.1 kg Body Mass Index (BMI) 29.0 Intake & Output: Intake and Output for Last 24 Hours 06/13/23 06/14/23 06/15/23 23:59 23:59 22:59 Intake Total 1900 / 1900 650 / 650 Balance 1900 / 1900 650 / 650 Lab / Micro Data 06/15/23 05:45 06/15/23 05:45 Labs: Laboratory Results - last 24 hr 06/14/23 17:01: WBC 8.9, RBC 4.32 L, Hgb 14.1, Hct 43.3, MCV 100.2 H, MCH 32.6 H, MCHC 32.6, RDW Std Deviation 48.7 H, RDW Coeff of Leticia 13.1, Plt Count 251, MPV9.4, Immature Gran % (Auto) 0.500, Neut % (Auto) 83.8 H, Lymph % (Auto) 10.2 L, [place] % (Auto) 2.7, Eos % (Auto) 2.5, Baso % (Auto) 0.3, Absolute Neuts (auto) 7.4, Absolute Lymphs (auto) 0.90, Nucleated RBC % 0, Sodium 139, Potassium 4.4, Chloride 108 H, Carbon Dioxide 27.0, Anion Gap 4 L, BUN 13, Creatinine 1.09, Estim Creat Clear Calc 80.09, Est GFR (MDRD) Af Amer 89, Est GFR (MDRD) Non-Af 73, BUN/Creatinine Ratio 11.9, Glucose 119 H, Calcium 9.0, Total Bilirubin 0.60,AST 18, ALT 30, Alkaline Phosphatase 72, Total Protein 8.0, Albumin 3.2, Globulin 4.8 H, Albumin/Globulin Ratio 0.7 L, Lipase 235 H, Urine Color Yellow, Urine Clarity Clear, Urine pH 7.0, Ur Specific Winston 1.010, Urine Protein Negative, Urine Glucose (UA) Normal, Urine Ketones Negative, Urine Occult Blood Negative, Urine Nitrite Negative, Urine Bilirubin Negative, Urine Urobilinogen Normal, Ur Leukocyte Esterase Negative, Urine RBC 0 SEEN, Urine WBC 0 SEEN, Ur Squamous Epith Cells 0 SEEN, Urine Bacteria 0 SEEN, Urine Mucus 0 SEEN Radiography Diagnostic Testing: Radiology Impression Abdomen/Pelvis CT 06/14/23 16:48 IMPRESSION: Sigmoid diverticulitis without abscess or perforation. Electronically Signed: Kris [facility] MD at 17:53 EDT , Physical Exam Const alert and no apparent distress GI GI Narrative: distended, not taut. RLQ abdominal pain. Assessment & Plan Assessment/Plan (1) Sigmoid diverticulitis: PLAN: Abdominal pain secondary to sigmoid diverticulitis CT abdomen demonstrated sigmoid diverticulitis Patient with intractable pain necessitating IV pain medication so patient unableto be discharged from ED Full liquid diet, advance diet as tolerated, pain control IV fluids Zosyn, avoiding Cipro/Flagyl combination given his alcohol use and suspect poor outcomes versus nonadherence of discharged on Flagyl Lipase is slightly elevated however symptoms, exam, imaging consistent with diverticulitis and not pancreatitis Tolerated FLD. Feeling better. DC with augmentin. PLAN: Plan Chronic conditions: * coronary artery disease with stent 04/25/2023-Patient on aspirin and Plavix at home-Has intolerance to statin * Recent suspected TIA: ASA and clopidogrel * Alcohol use-Not very forthcoming with drinking history with in room but drinks 2 tall beers a day-Denies any history of significant withdrawal but again unclear if there is some underestimating of drinking and symptoms-CIWA monitoring with as needed Ativan coverage-Do not think patient needs started on phenobarb taper at this time * Hypertension-On home losartan #DVT ppx: Lovenox subcu 06/15/23 1024 <Electronically signed by Rommel Youssef DO> Cosigner Signature (if applicable): CC: ~ Signed [facility] Work Phone: 1(648) 677-104211-04-2023 History and physical note Author Meliza Ramírez [facility] June 14, 2023 7:41pm Note Date/Time June 14, 2023 7 :41pm [facility] Medical Records Department [address] [place] [address] H&P Exam - Hospitalist 06/14/231930 MR#: [id number] Acct: [id number] Name: JOVANY MUÑIZ Rep #:[id number] : 1965 57 From: Meliza Ramírez MD PCP: Dr. Sergei Henley MD Status: REG ER Location: ED HPI - General General Date of Admission: 06/14/23 Date of Service: 06/14/23 Chief Complaint: Abdominal pain HPI Narrative JOVANY MUÑIZ, is a 57-year-old male history of hypertension, coronary artery disease with stent placement 2 months ago who presented to [facility] 06/14/2023 with abdominal pain x1 day. Due to his coronary artery disease he had previously been on a statin but due to abdominal pain and leg cramping he was off it for 2 weeks and they tried a new statin 5 days ago but hehad leg cramping and abdominal pain again which he stopped taking but pain is persisted, its primarily right lower quadrant but is somewhat generalized and hefeels he has some abdominal distention as well. Not passing gas and no bowel movement since yesterday. CT abdomen obtained and showed sigmoid diverticulitiswithout perforation. Patient required IV pain medication and was having intractable pain and was deemed patient cannot be discharged home due to need for pain control, hospitalist contacted for admission. Patient evaluated with with at bedside. Reports history as above, reports he is feeling quite bloated presently and last bowel movement was yesterday morning, chronically hassome loose stools but nothing different than usual, not feeling nauseous or vomiting at this time, primarily just has some generalized abdominal pain worse in the lower quadrants. Has been drinking water but has not been eating much food over this past day as he feels this worsens his symptoms. Had sweats last night but does not note of any fever. Denies any substance use, reports he drinks 2 beers daily and when clarifying he drinks 2 tall beers daily but patient not very forthcoming with drinking history with in room but denies any history of withdrawal and last up drinking for couple days when he had his heart attack in April and denied any withdrawal symptoms at that time. [facility] Medical History 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/23) Essential hypertension History of coronary artery disease HLD (hyperlipidemia) Old myocardial infarction Presence of stent in coronary artery (04/25/23) Home Medications aspirin 81 mg tablet,delayed release (Adult Low Dose Aspirin) 81 mg PO QDAY [facility] 08/06/17 [History Last Taken 10/30/21] buspirone 5 mg tablet 5 mg PO BID 04/23/23 [History Last Taken Unknown] coenzyme Q10 100 mg capsule 100 mg PO DAILY 05/05/23 [History Last Taken Unknown] cetirizine 10 mg tablet 10 mg PO DAILY PRN 05/20/23 [History Last Taken Unknown] clopidogrel 75 mg tablet (Plavix) 75 mg PO QDAY #93 tabs 05/20/23 [Rx Last Taken Unknown] losartan 50 mg tablet 50 mg PO DAILY 05/20/23 [History Last Taken Unknown] evolocumab 140 mg/mL subcutaneous pen injector (Repatha SureClick) 140 mg [id number] #2 mL 06/13/23 [Rx Last Taken Unknown] nitroglycerin 0.4 mg sublingual tablet (Nitrostat) 0.4 mg sublingual Q5-15M PRN CHEST PAIN #25 tabs 06/13/23 [Rx Last Taken Unknown] Allergy/AdvReac Type Severity Reaction Status Date / Time No Known Allergies Allergy Verified 06/14/23 16:36 Family History Grandfather , age 76 CVA (cerebral vascular accident) Surgical History History of left heart catheterization (~12/2010) Presence of coronary angioplasty implant and graft (~06/19/10) Social History Smoking Status: Former smoker how long ago did patient quit smokin alcohol intake: current alcohol intake frequency: 0-2 drinks per day Alcohol type: beer substance use type: does not use caffeine: Yes Type: coffee Number of servings: 2 what type of physical activity do you participate in: none seatbelt use: sometimes do you feel safe at home: Yes ROS ROS Narrative General: Denies fever/chills but had some sweats yesterday HENT: Denies headache, denies stuffy nose, denies sore throat EYES: Denies changes in vision Resp: Denies cough, denies shortness of breath Cardiac: Denies chest pain GI: Diffuse abdominal pain worse in lower quadrants, denies nausea/vomiting : Denies changes in urination Extremity: Denies swelling MSK: Denies weakness Neuro: Denies any numbness/tingling Heme: Denies any bleeding or bruising Skin: Denies rashes Psychiatric: No complaints voiced Vital Signs Vital Signs Vital Signs: 06/14/23 16:36 06/14/23 17:16 Temperature 97.5 F L Temperature Source Temporal Pulse Rate 100 89 Respiratory Rate 20 H 18 Blood Pressure 133/96 H 131/93 H Blood Pressure Mean 108 105 Pulse Ox 98 96 Oxygen Delivery Method Room Air Room Air Weight Weight: 96.343 kg Body Mass Index (BMI) 28.8 Physical Exam Narrative General: Alert, oriented, no apparent distress HEENT: Atraumatic, normocephalic Eyes: Anicteric, normal conjunctiva, extraocular movements grossly intact Neck: Supple Respiratory: Clear to auscultation bilaterally, normal respiratory effort Cardiovascular: Regular rate and rhythm GI: Somewhat distended, tender primarily in lower quadrants without rebound or rigidity, some voluntary guarding with hands but did not demonstrate this when pushing with stethoscope Extremities: No edema Musculoskeletal: Moving all extremities Neuro: No overt focal neurological deficits Skin: No rashes appreciated Psych: Cooperative Results Lab / Micro Data 06/14/23 17:01 06/14/23 17:01 Labs: Laboratory Results - last 24 hr 06/14/23 17:01: WBC 8.9, RBC 4.32 L, Hgb 14.1, Hct 43.3, MCV 100.2 H, MCH 32.6 H, MCHC 32.6, RDW Std Deviation 48.7 H, RDW Coeff of Leticia 13.1, Plt Count 251, MPV9.4, Immature Gran % (Auto) 0.500, Neut % (Auto) 83.8 H, Lymph % (Auto) 10.2 L, [place] % (Auto) 2.7, Eos % (Auto) 2.5, Baso % (Auto) 0.3, Absolute Neuts (auto) 7.4, Absolute Lymphs (auto) 0.90, Nucleated RBC % 0, Sodium 139, Potassium 4.4, Chloride 108 H, Carbon Dioxide 27.0, Anion Gap 4 L, BUN 13, Creatinine 1.09, Estim Creat Clear Calc 80.09, Est GFR (MDRD) Af Amer 89, Est GFR (MDRD) Non-Af 73, BUN/Creatinine Ratio 11.9, Glucose 119 H, Calcium 9.0, Total Bilirubin 0.60,AST 18, ALT 30, Alkaline Phosphatase 72, Total Protein 8.0, Albumin 3.2, Globulin 4.8 H, Albumin/Globulin Ratio 0.7 L, Lipase 235 H, Urine Color Yellow, Urine Clarity Clear, Urine pH 7.0, Ur Specific Winston 1.010, Urine Protein Negative, Urine Glucose (UA) Normal, Urine Ketones Negative, Urine Occult Blood Negative, Urine Nitrite Negative, Urine Bilirubin Negative, Urine Urobilinogen Normal, Ur Leukocyte Esterase Negative, Urine RBC 0 SEEN, Urine WBC 0 SEEN, Ur Squamous Epith Cells 0 SEEN, Urine Bacteria 0 SEEN, Urine Mucus 0 SEEN Radiology Impression Abdomen/Pelvis CT 06/14/23 16:48 IMPRESSION: Sigmoid diverticulitis without abscess or perforation. Electronically Signed: Kris [facility] MD at 17:53 EDT , Assessment & Plan Assessment/Plan (1) Intractable abdominal pain: (2) Sigmoid diverticulitis: (3) Presence of stent in coronary artery: (4) Essential hypertension: PLAN: Plan #Abdominal pain secondary to sigmoid diverticulitis -CT abdomen demonstrated sigmoid diverticulitis -Patient with intractable pain necessitating IV pain medication so patient unable to be discharged from ED -Clear liquid diet, advance diet as tolerated, pain control -IV fluids -Zosyn, avoiding Cipro/Flagyl combination given his alcohol use and suspect pooroutcomes versus nonadherence of discharged on Flagyl -Lipase is slightly elevated however symptoms, exam, imaging consistent with diverticulitis and not pancreatitis #coronary artery disease with stent 04/25/2023 -Patient on aspirin and Plavix at home -Has intolerance to statin #Alcohol use -Not very forthcoming with drinking history with in room but drinks 2 tall beers a day -Denies any history of significant withdrawal but again unclear if there is someunderestimating of drinking and symptoms -CIWA monitoring with as needed Ativan coverage -Do not think patient needs started on phenobarb taper at this time #Hypertension -On home losartan #DVT ppx: Lovenox subcu Meliza Ramírez MD Time spent in the patient's overall evaluation,decision-making process, review of diagnostic data, adjustment of management, discussion with other providers, nursing nursing and ancillary staff involved in patient's care documentation, 56minutes Charges/Coding Visit Charges Inpatient E&M: 47269 Init Hosp L2 06/14/231940 <Electronically signed by Meliza Ramírez MD> Cosigner Signature (if applicable): CC: Dr. Sergei Henley MD; Dr. Meliza Ramírez MD~ Signed [facility] Work Phone: 1(148) 304-634011-04-2023 Discharge summary Author Donta Swenson [facility] June 14, 2023 7:24pm Note Date/Time June 14, 2023 4 :52pm [facility] Medical Records Department [address] [place] [address] Emergency Department Summary 06/14/23 MR#: [id number] Acct: [id number] Name: JOVANY MUÑIZ Rep #:[id number] : 1965 57 From: Donta Swenson MD PCP: Dr. Sergei Henley MD Status: REG ER Location: ED HPI HPI - GI History of Present Illness Chief Complaint: Abd Pain Narrative Narrative: 57-year-old male past medical history of hyperlipidemia, hypertension, coronary artery disease presents with abdominal pain that he has had since yesterday morning. He relates history that he has an intolerance to statins. Few months ago he had an MS/stent placement, and was restarted on a statin. He was having intolerance to it with abdominal pain and leg cramping. He did not take it for 2 weeks and they started him on a new statin on Friday, approximately 5 days ago. He states he started the new statin, then began having the leg cramps and abdominal pain. This was early Friday morning. He stopped taking it, but continued to have pain and states it is worse even today. It started in the right lower quadrant and now has radiated to diffuse abdominal pain. He states his abdomen is also distended. He denies any previous past abdominal surgeries. No nausea or vomiting. He states he has not had a bowel movement since yesterday and he is not passing gas. [facility] Medical History 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/23) Essential hypertension History of coronary artery disease HLD (hyperlipidemia) Old myocardial infarction Presence of stent in coronary artery (04/25/23) Home Medications aspirin 81 mg tablet,delayed release (Adult Low Dose Aspirin) 81 mg PO QDAY [facility] 08/06/17 [History Last Taken 10/30/21] buspirone 5 mg tablet 5 mg PO BID 04/23/23 [History Last Taken Unknown] coenzyme Q10 100 mg capsule 100 mg PO DAILY 05/05/23 [History Last Taken Unknown] cetirizine 10 mg tablet 10 mg PO DAILY PRN 05/20/23 [History Last Taken Unknown] clopidogrel 75 mg tablet (Plavix) 75 mg PO QDAY #93 tabs 05/20/23 [Rx Last Taken Unknown] losartan 50 mg tablet 50 mg PO DAILY 05/20/23 [History Last Taken Unknown] evolocumab 140 mg/mL subcutaneous pen injector (Repatha SureClick) 140 mg [id number] #2 mL 06/13/23 [Rx Last Taken Unknown] nitroglycerin 0.4 mg sublingual tablet (Nitrostat) 0.4 mg sublingual Q5-15M PRN CHEST PAIN #25 tabs 06/13/23 [Rx Last Taken Unknown] Allergy/AdvReac Type Severity Reaction Status Date / Time No Known Allergies Allergy Verified 06/14/23 16:36 Family History Grandfather , age 76 CVA (cerebral vascular accident) Surgical History History of left heart catheterization (~12/2010) Presence of coronary angioplasty implant and graft (~06/19/10) Social History Smoking Status: Former smoker how long ago did patient quit smokin alcohol intake: current alcohol intake frequency: 0-2 drinks per day Alcohol type: beer substance use type: does not use caffeine: Yes Type: coffee Number of servings: 2 what type of physical activity do you participate in: none seatbelt use: sometimes do you feel safe at home: Yes ROS ROS ED ROS Narrative Constitutional: No fever, no chills. HEENT: No sore throat. No neck pain. No loss of vision. No rhinorrhea. Cardiovascular: No chest pain. No palpitations. No pedal edema. Respiratory: No cough, no shortness of breath. Abdominal: Positive right lower quadrant to diffuse abdominal pain. No nausea. No vomiting. Positive abdominal distention. Lack of flatulence. Genitourinary: No dysuria. No hematuria. Musculoskeletal: No myalgias. No arthralgias. Neurologic: No headaches. No dizziness. No lightheadedness. Skin: No rash. No change in color. Psychiatric: No depression. No anxiety. EXAM Physical Exam Narrative Exam Narrative: Afebrile. Vital signs noted. HEENT: Normocephalic. Atraumatic. PERRL, EOMI. Neck soft and supple. No pointtenderness or step off. Cardiovascular: Regular rate and rhythm. No murmurs, rubs, or gallops appreciated. Respiratory: No tachypnea. Lungs clear to auscultation bilaterally. Gastrointestinal: Abdomen soft, diffuse tenderness, concentrated in right lower quadrant with normoactive bowel sounds. No rebound or guarding. Mild abdominaldistention. Neurological: Awake. Alert. Nonfocal, nonlateralizing. Skin: No rash. Normal color. No pallor. Musculoskeletal: No pedal edema. Full range of motion extremities. Const Vital Signs: 06/14/23 16:36 06/14/23 17:16 Temperature 97.5 F L Temperature Source Temporal Pulse Rate 100 89 Respiratory Rate 20 H 18 Blood Pressure 133/96 H 131/93 H Blood Pressure Mean 108 105 Pulse Ox 98 96 Oxygen Delivery Method Room Air Room Air [facility] MDM Narrative Medical decision making narrative: In the differential diagnosis is bowel obstruction versus appendicitis versus diverticulitis/colitis. Patient was administered morphine and ondansetron for analgesia and bolused normal saline. I will obtain a CBC, CMP, and lipase alongwith UA. I do feel that CT imaging is indicated with IV contrast. I reviewed his laboratory work and he has normal white count of 8.9, hemoglobin 14.1, hematocrit 43.3, platelet count 251. Review of his CMP shows chloride slightly elevated at 108, glucose appropriately elevated at 119 with an anion gap low at 4, LFTs are grossly unremarkable with a normal AST and ALT. His lipase is slightly elevated to 35. He states that he drinks 2 beers daily but none yesterday. I do not feel he has a full-blown pancreatitis. I reviewed the CT report of the CT with IV contrast of the abdomen and pelvis which shows uncomplicated sigmoid diverticulitis without abscess or perforation. He was started on IV Cipro and Flagyl as he states that the initial dose of morphine did nothing for his pain. He was given an additional dose and reassessed. He states he is having intractable pain and cannot go through another night like he did last night of this type of pain. He was given 1.5 of Dilaudid intravenously. I discussed patient with Dr. Ligia Ramírez for assignmentto observation on the medical surgical floor. Patient is in stable condition. History & Record Review Discussion w/independent historian: Patient Lab Data Attestation: I reviewed the patient's lab results. Labs: Laboratory Results - last 24 hr 06/14/23 17:01 WBC 8.9 RBC 4.32 L Hgb 14.1 Hct 43.3 MCV 100.2 H MCH 32.6 H MCHC 32.6 RDW Std Deviation 48.7 H RDW Coeff of Leticia 13.1 Plt Count 251 MPV 9.4 Immature Gran % (Auto) 0.500 Neut % (Auto) 83.8 H Lymph % (Auto) 10.2 L [place] % (Auto) 2.7 Eos % (Auto) 2.5 Baso % (Auto) 0.3 Absolute Neuts (auto) 7.4 Absolute Lymphs (auto) 0.90 Nucleated RBC % 0 Sodium 139 Potassium 4.4 Chloride 108 H Carbon Dioxide 27.0 Anion Gap 4 L BUN 13 Creatinine 1.09 Estim Creat Clear Calc 80.09 Est GFR (MDRD) Af Amer 89 Est GFR (MDRD) Non-Af 73 BUN/Creatinine Ratio 11.9 Glucose 119 H Calcium 9.0 Total Bilirubin 0.60 AST 18 ALT 30 Alkaline Phosphatase 72 Total Protein 8.0 Albumin 3.2 Globulin 4.8 H Albumin/Globulin Ratio 0.7 L Lipase 235 H Urine Color Yellow Urine Clarity Clear Urine pH 7.0 Ur Specific Winston 1.010 Urine Protein Negative Urine Glucose (UA) Normal Urine Ketones Negative Urine Occult Blood Negative Urine Nitrite Negative Urine Bilirubin Negative Urine Urobilinogen Normal Ur Leukocyte Esterase Negative Urine RBC 0 SEEN Urine WBC 0 SEEN Ur Squamous Epith Cells 0 SEEN Urine Bacteria 0 SEEN Urine Mucus 0 SEEN Radiography Diagnostic Testing: Clinical Impression(s) from Imaging Studies Abdomen/Pelvis CT 06/14/23 16:48 IMPRESSION: Sigmoid diverticulitis without abscess or perforation. Electronically Signed: Kris White MD at 17:53 EDT , Management Discussion w/another healthcare provider: Hospitalist Discharge Plan Dx/Rx/DC Orders Clinical Impression: Intractable abdominal pain, Sigmoid diverticulitis Disposition Disposition: Acute Care Hospital [facility] What to do if you have Problems For any increased pain, shortness of breath, bleeding, nausea or vomiting, chestpain, or any unexpected problems, contact your Primary Care Provider. Call [facility] ([phone]) or report to the closest Emergency Room. Call 911 if necessary. 06/14/231923 <Electronically signed by Donta Swenson MD> Cosigner Signature (if applicable): CC: Dr. Sergei Henley MD ~ Signed [facility] Work Phone: 1(615) 119-884911-04-2023 Discharge summary [facility] June 14, 2023 7:24pm Note Date/Time June 14, 2023 4 :52pm [facility] Medical Records Department [address] [place] [address] Emergency Department Summary 06/14/23 MR#: [id number] Acct: [id number] Name: JOVANY MUÑIZ Rep #:[id number] : 1965 57 From: Donta Swenson MD PCP: Dr. Sergei Henley MD Status: REG ER Location: ED HPI HPI - GI History of Present Illness Chief Complaint: Abd Pain Narrative Narrative: 57-year-old male past medical history of hyperlipidemia, hypertension, coronary artery disease presents with abdominal pain that he has had since yesterday morning. He relates history that he has an intolerance to statins. Few months ago he had an MS/stent placement, and was restarted on a statin. He was having intolerance to it with abdominal pain and leg cramping. He did not take it for 2 weeks and they started him on a new statin on Friday, approximately 5 days ago. He states he started the new statin, then began having the leg cramps and abdominal pain. This was early Friday morning. He stopped taking it, but continued to have pain and states it is worse even today. It started in the right lower quadrant and now has radiated to diffuse abdominal pain. He states his abdomen is also distended. He denies any previous past abdominal surgeries. No nausea or vomiting. He states he has not had a bowel movement since yesterday and he is not passing gas. [facility] Medical History 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/23) Essential hypertension History of coronary artery disease HLD (hyperlipidemia) Old myocardial infarction Presence of stent in coronary artery (04/25/23) Home Medications aspirin 81 mg tablet,delayed release (Adult Low Dose Aspirin) 81 mg PO QDAY [facility] 08/06/17 [History Last Taken 10/30/21] buspirone 5 mg tablet 5 mg PO BID 04/23/23 [History Last Taken Unknown] coenzyme Q10 100 mg capsule 100 mg PO DAILY 05/05/23 [History Last Taken Unknown] cetirizine 10 mg tablet 10 mg PO DAILY PRN 05/20/23 [History Last Taken Unknown] clopidogrel 75 mg tablet (Plavix) 75 mg PO QDAY #93 tabs 05/20/23 [Rx Last Taken Unknown] losartan 50 mg tablet 50 mg PO DAILY 05/20/23 [History Last Taken Unknown] evolocumab 140 mg/mL subcutaneous pen injector (Repatha SureClick) 140 mg [id number] #2 mL 06/13/23 [Rx Last Taken Unknown] nitroglycerin 0.4 mg sublingual tablet (Nitrostat) 0.4 mg sublingual Q5-15M PRN CHEST PAIN #25 tabs 06/13/23 [Rx Last Taken Unknown] Allergy/AdvReac Type Severity Reaction Status Date / Time No Known Allergies Allergy Verified 06/14/23 16:36 Family History Grandfather , age 76 CVA (cerebral vascular accident) Surgical History History of left heart catheterization (~12/2010) Presence of coronary angioplasty implant and graft (~06/19/10) Social History Smoking Status: Former smoker how long ago did patient quit smokin alcohol intake: current alcohol intake frequency: 0-2 drinks per day Alcohol type: beer substance use type: does not use caffeine: Yes Type: coffee Number of servings: 2 what type of physical activity do you participate in: none seatbelt use: sometimes do you feel safe at home: Yes ROS ROS ED ROS Narrative Constitutional: No fever, no chills. HEENT: No sore throat. No neck pain. No loss of vision. No rhinorrhea. Cardiovascular: No chest pain. No palpitations. No pedal edema. Respiratory: No cough, no shortness of breath. Abdominal: Positive right lower quadrant to diffuse abdominal pain. No nausea. No vomiting. Positive abdominal distention. Lack of flatulence. Genitourinary: No dysuria. No hematuria. Musculoskeletal: No myalgias. No arthralgias. Neurologic: No headaches. No dizziness. No lightheadedness. Skin: No rash. No change in color. Psychiatric: No depression. No anxiety. EXAM Physical Exam Narrative Exam Narrative: Afebrile. Vital signs noted. HEENT: Normocephalic. Atraumatic. PERRL, EOMI. Neck soft and supple. No pointtenderness or step off. Cardiovascular: Regular rate and rhythm. No murmurs, rubs, or gallops appreciated. Respiratory: No tachypnea. Lungs clear to auscultation bilaterally. Gastrointestinal: Abdomen soft, diffuse tenderness, concentrated in right lower quadrant with normoactive bowel sounds. No rebound or guarding. Mild abdominaldistention. Neurological: Awake. Alert. Nonfocal, nonlateralizing. Skin: No rash. Normal color. No pallor. Musculoskeletal: No pedal edema. Full range of motion extremities. Const Vital Signs: 06/14/23 16:36 06/14/23 17:16 Temperature 97.5 F L Temperature Source Temporal Pulse Rate 100 89 Respiratory Rate 20 H 18 Blood Pressure 133/96 H 131/93 H Blood Pressure Mean 108 105 Pulse Ox 98 96 Oxygen Delivery Method Room Air Room Air MDM MDM MDM Narrative Medical decision making narrative: In the differential diagnosis is bowel obstruction versus appendicitis versus diverticulitis/colitis. Patient was administered morphine and ondansetron for analgesia and bolused normal saline. I will obtain a CBC, CMP, and lipase alongwith UA. I do feel that CT imaging is indicated with IV contrast. I reviewed his laboratory work and he has normal white count of 8.9, hemoglobin 14.1, hematocrit 43.3, platelet count 251. Review of his CMP shows chloride slightly elevated at 108, glucose appropriately elevated at 119 with an anion gap low at 4, LFTs are grossly unremarkable with a normal AST and ALT. His lipase is slightly elevated to 35. He states that he drinks 2 beers daily but none yesterday. I do not feel he has a full-blown pancreatitis. I reviewed the CT report of the CT with IV contrast of the abdomen and pelvis which shows uncomplicated sigmoid diverticulitis without abscess or perforation. He was started on IV Cipro and Flagyl as he states that the initial dose of morphine did nothing for his pain. He was given an additional dose and reassessed. He states he is having intractable pain and cannot go through another night like he did last night of this type of pain. He was given 1.5 of Dilaudid intravenously. I discussed patient with Dr. Ligia Ramírez for assignmentto observation on the medical surgical floor. Patient is in stable condition. History & Record Review Discussion w/independent historian: Patient Lab Data Attestation: I reviewed the patient's lab results. Labs: Laboratory Results - last 24 hr 06/14/23 17:01 WBC 8.9 RBC 4.32 L Hgb 14.1 Hct 43.3 MCV 100.2 H MCH 32.6 H MCHC 32.6 RDW Std Deviation 48.7 H RDW Coeff of Leticia 13.1 Plt Count 251 MPV 9.4 Immature Gran % (Auto) 0.500 Neut % (Auto) 83.8 H Lymph % (Auto) 10.2 L [place] % (Auto) 2.7 Eos % (Auto) 2.5 Baso % (Auto) 0.3 Absolute Neuts (auto) 7.4 Absolute Lymphs (auto) 0.90 Nucleated RBC % 0 Sodium 139 Potassium 4.4 Chloride 108 H Carbon Dioxide 27.0 Anion Gap 4 L BUN 13 Creatinine 1.09 Estim Creat Clear Calc 80.09 Est GFR (MDRD) Af Amer 89 Est GFR (MDRD) Non-Af 73 BUN/Creatinine Ratio 11.9 Glucose 119 H Calcium 9.0 Total Bilirubin 0.60 AST 18 ALT 30 Alkaline Phosphatase 72 Total Protein 8.0 Albumin 3.2 Globulin 4.8 H Albumin/Globulin Ratio 0.7 L Lipase 235 H Urine Color Yellow Urine Clarity Clear Urine pH 7.0 Ur Specific [place] 1.010 Urine Protein Negative Urine Glucose (UA) Normal Urine Ketones Negative Urine Occult Blood Negative Urine Nitrite Negative Urine Bilirubin Negative Urine Urobilinogen Normal Ur Leukocyte Esterase Negative Urine RBC 0 SEEN Urine WBC 0 SEEN Ur Squamous Epith Cells 0 SEEN Urine Bacteria 0 SEEN Urine Mucus 0 SEEN Radiography Diagnostic Testing: Clinical Impression(s) from Imaging Studies Abdomen/Pelvis CT 06/14/23 16:48 IMPRESSION: Sigmoid diverticulitis without abscess or perforation. Electronically Signed: Kris White MD at 17:53 EDT , Management Discussion w/another healthcare provider: Hospitalist Discharge Plan Dx/Rx/DC Orders Clinical Impression: Intractable abdominal pain, Sigmoid diverticulitis Disposition Disposition: Acute Care Hospital [facility] What to do if you have Problems For any increased pain, shortness of breath, bleeding, nausea or vomiting, chestpain, or any unexpected problems, contact your Primary Care Provider. Call [facility] ([phone]) or report to the closest Emergency Room. Call 911 if necessary. 06/14/231923 <Electronically signed by Donta Swneson MD> Cosigner Signature (if applicable): CC: Dr. Sergei Henley MD ~ Signed [facility] Work Phone: 1(545) 627-913509-15-2023 Discharge summary Author Rommel Youssef [facility] April 25, 2023 12:09pm Note Date/Time April 25, 2023 12:06pm [facility] Medical Records Department [address] [place] [address] Discharge Summary 04/25/23 1203 MR#: [id number] Acct: [id number] Name: JOVANY MUÑIZ JOSE Rep #:[id number] 1 : 1965 57 From: Rommel Youssef DO PCP: Dr. Sergei Henley MD Status: [facility] Prov[facility] Date of Admission: 04/23/23 Primary Care Physician: Dr. Sergei Henley MD Consultations 04/24/23 02:23 Consult: Cardiology Routine Consulting Provider: Jose Lockwood Reason for Consult: non stemi EMERGENT Consult: No MD Notified: Yes Date Notified: 04/24/23 Time Notified: 02: Method of Notification: Text Method of Consult:: In-Person Reason For Visit: CHEST PAIN, TIA Diagnosis Discharge Diagnosis (1) NSTEMI (non-ST elevated myocardial infarction): Status: Acute Code(s): I21.4 - Non-ST elevation (NSTEMI) myocardial infarction Plan: Troponins up to 11,986. ASA, ticagrelor, losartan s/p PCI to high-grade stenosis of LAD. Echo shows and EF of 60% (2) Brain TIA: Status: Acute Code(s): G45.9 - Transient cerebral ischemic attack, unspecified Plan: Suspected Pt had left-sided paresthesias and facial droop Head CT negative. CTA H/N showed 60% carotid stenosis. MRI negative. PT OT ST Continue ASA Plan Chronic conditions: * CAD: known. Previous PCI to OM and LAD. * HTN: continue losartan * ED: event occurred during sexual encounter while taking sildenafil. Medications at Discharge Home Medications aspirin 81 mg tablet,delayed release (Adult Low Dose Aspirin) 81 mg PO QDAY [facility] 08/06/17 loratadine 10 mg tablet (Claritin) 10 mg PO QDAY PRN Allergies 08/06/17 nitroglycerin 0.4 mg sublingual tablet (Nitrostat) 0.4 mg sublingual Q5M PRN CHEST PAIN 08/06/17 buspirone 5 mg tablet 5 mg PO BID 04/23/23 losartan 50 mg tablet 50 mg PO .day 04/23/23 sildenafil 100 mg tablet 100 mg PO PRN PRN sexual activity 04/23/23 atorvastatin 80 mg tablet 80 mg PO QHS #30 tabs 04/25/23 ticagrelor 90 mg tablet (Brilinta) 90 mg PO BID #60 tabs 04/25/23 Hospital Course Operations None Procedures 2-D Echocardiogram and Cardiac catheterization Summary of Care Provided Minutes Spent on Discharge: 32 Hospital Course: Patient presents with chest pain as well as left-sided paresthesias and weakness. Left-sided weakness paresthesias resolved. Patient was found to havenon-ST ovation myocardial infarction. Patient underwent PCI to high-grade stenosis of the LAD. Echocardiogram showed EF of 60%. Patient was already on aspirin and clopidogrel but will continue with aspirin and be started on ticagrelor as well as high intensity statin with atorvastatin. For left-sided weakness, his work-up was unremarkable. His MRI of the brain wasnegative. Concerned the patient may have had a TIA but no evidence of that at this time. Patient is otherwise feeling well. The treatment will be overlappedwith his myocardial infarction with a dual antiplatelet therapy. Weight / BMI Weight Weight: 96.7 kg Body Mass Index (BMI) 28.9 ABG / Lab / Microbiology Data 04/25/23 06:27 04/25/23 06:27 Laboratory: Laboratory Results - last 24 hr 04/24/23 10:33: Activated Clotting Time 197 H 04/25/23 06:27: WBC 4.7, RBC 4.14 L, Hgb 13.9, Hct 41.3, MCV 99.8 H, MCH 33.6 H,MCHC 33.7, RDW Std Deviation 47.3 H, RDW Coeff of Leticia 12.9, Plt Count 185, MPV 9.5, Sodium 139, Potassium 3.9, Chloride 109 H, Carbon Dioxide 27.0, Anion Gap 3L, BUN 10, Creatinine 0.98, Estim Creat Clear Calc 89.08, Est GFR (MDRD) Af [id number], Est GFR (MDRD) Non-Af 83, BUN/Creatinine Ratio 10.2, Glucose 104, Hemoglobin A1c 5.6, Calcium 8.6, Total Bilirubin 0.40, AST 73 H, ALT 50, Alkaline Phosphatase 61, Total Protein 7.0, Albumin 3.1 L, Globulin 3.9, Albumin/Globulin Ratio 0.8 L Radiography Diagnostic Testing: Radiology Impression Brain MRI 04/24/23 00:08 IMPRESSION: undefined Meaningful Use Info Meaningful Use Diagnoses (Choose all that apply): AMI AMI/Post PCI/Angioplasty Aspirin given w/in 24hrs of arrival?: Yes ASA at discharge?: Yes Antiplatelet Therapy at Discharge:: Yes Statins at discharge?: Yes Taz/ARB at discharge?: Yes Beta Robert at discharge?: No Reason Beta Robert not ordered:: Drug Interaction Done w/ Acute MS measure.: Yes Documented LVEF (%): 60 Discharge Plan Admission Admit Date/Time: 04/23/23 22:47 Primary Reason for Your Visit: Myocardial infarction. Attending Provider: Rommel Youssef Primary Care Provider: Sergei Henley Consulting Providers: Jose Lockwood; Ar Torres Discharge Orders/Prescriptions Prescriptions: New atorvastatin 80 mg Tablet 80 mg PO QHS Qty: 30 0RF Brilinta 90 mg Tablet 90 mg PO BID Qty: 60 0RF Continued aspirin [Adult Low Dose Aspirin] 81 mg tablet,delayed release (DR/EC) 81 mg PO QDAY nitroglycerin [Nitrostat] 0.4 mg tablet, sublingual 0.4 mg SUBLINGUAL Q5M PRN (Reason: CHEST PAIN) Patient Comments: chest pain loratadine [Claritin] 10 mg tablet 10 mg PO QDAY PRN (Reason: Allergies) Patient Comments: allergy losartan 50 mg tablet 50 mg PO .day Patient Comments: TAKE 1 TABLET BY MOUTH EVERY DAY buspirone 5 mg tablet 5 mg PO BID Patient Comments: TAKE 1 TABLET BY MOUTH TWICE A DAY Held sildenafil 100 mg tablet 100 mg PO PRN PRN (Reason: sexual activity) Hold Instructions: until cleared by cargiology. Patient Comments: TAKE 1 TABLET BY MOUTH 1 HOUR PRIOR TO DESIRED INTERCOURSE Discontinued clopidogrel 75 mg tablet 75 mg PO QDAY 90 Days Qty: 90 Patient Comments: Referrals / Follow Up: [facility] [Provider Group] - Within 1 Month Sergei Henley MD [Primary Care Provider] - Within 2 Weeks Disposition Disposition (needs filled in before D/C Order can be placed): Home, Self Care Charges/Coding Visit Charges Inpatient E&M: 60792 Disch Hosp >30min 04/25/23 1209 <Electronically signed by Rommel Youssef DO> Cosigner Signature (if applicable): CC: Dr. Sergei Henley MD; Dr. Rommel Youssef DO~ Signed [facility] Work Phone: 1(243) 710-520809-15-2023 Progress note Author Rommel Youssef [facility] April 25, 2023 12:03pm Note Date/Time April 25, 2023 8:51am [facility] Medical Records Department [address] [place] [address] Progress Note - Hospitalist 04/25/23 0850 MR#: [id number] Acct: [id number] Name: JOVANY MUÑIZ Rep #:[id number] : 1965 57 From: Rommel Youssef DO PCP: Dr. Sergei Henley MD Status: ADM IN Location: [place] [address] Reason for Visit Reason for Visit: Diagnoses Hyperlipidemia, unspecified (04/23/23) Transient cerebral ischemic attack, unspecified (04/23/23) Essential (primary) hypertension (04/23/23) Non-ST elevation (NSTEMI) myocardial infarction (04/23/23) Atherosclerotic heart disease of [place] coronary artery without angina pectoris (04/23/23) Chest pain, unspecified (04/23/23) Subjective Subjective feels good Objective Data Objective Data Vital Signs: Vital Signs Temp Pulse Resp BP Pulse Ox O2 Del Method 36.2 C L 62 18 126/80 H 97 Room Air 04/25/23 04:12 04/25/23 04:12 04/25/23 04:12 04/25/23 04:12 04/25/23 04:12 04/25/23 07:50 Oxygen Delivery Method Room Air Weight: 96.7 kg Body Mass Index (BMI) 28.9 Intake & Output: Intake and Output for Last 24 Hours 04/23/23 04/24/23 04/25/23 23:59 23:59 23:59 Intake Total 1233.50 / 1233.50 Balance 1233.50 / 1233.50 Lab / Micro Data 04/25/23 06:27 04/25/23 06:27 Labs: Laboratory Results - last 24 hr 04/24/23 10:33: Activated Clotting Time 197 H 04/25/23 06:27: WBC 4.7, RBC 4.14 L, Hgb 13.9, Hct 41.3, MCV 99.8 H, MCH 33.6 H,MCHC 33.7, RDW Std Deviation 47.3 H, RDW Coeff of Leticia 12.9, Plt Count 185, MPV 9.5, Sodium 139, Potassium 3.9, Chloride 109 H, Carbon Dioxide 27.0, Anion Gap 3L, BUN 10, Creatinine 0.98, Estim Creat Clear Calc 89.08, Est GFR (MDRD) Af [id number], Est GFR (MDRD) Non-Af 83, BUN/Creatinine Ratio 10.2, Glucose 104, Calcium 8.6, Total Bilirubin 0.40, AST 73 H, ALT 50, Alkaline Phosphatase 61, Total Protein 7.0, Albumin 3.1 L, Globulin 3.9, Albumin/Globulin Ratio 0.8 L Radiography Diagnostic Testing: Radiology Impression Brain MRI 04/24/23 00:08 IMPRESSION: undefined Echocardiogram 04/24/23 00:08 Interpretation Summary Normal LV size. Left ventricular systolic function is normal. The estimated ejection fraction is 60 %. Stage 1 diastolic dysfunction. Ordering Physician: Ar Torres Referring Physician: Eduard Henley MD Performed By: Karely Sanchez, LASHAWN, RVT Physical Exam Const alert and no apparent distress HEENT head/scalp atraumatic and moist oral mucous membranes Resp normal respiratory effort, no retractions, no use of accessory muscles and clearto auscultation bilaterally Cardio regular rate, regular rhythm, S1 normal heart sound and S2 normal heart sound GI normal to inspection, nondistended, normoactive bowel sounds, soft to palpation,non-tender and non-distended Extremity normal to inspection Assessment & Plan Assessment/Plan (1) NSTEMI (non-ST elevated myocardial infarction): PLAN: Troponins up to 11,986. ASA, ticagrelor, losartan s/p PCI to high-grade stenosis of LAD. Echo shows and EF of 60% (2) Brain TIA: PLAN: Suspected Pt had left-sided paresthesias and facial droop Head CT negative. CTA H/N showed 60% carotid stenosis. MRI negative. PT OT ST Continue ASA PLAN: Plan Chronic conditions: * CAD: known. Previous PCI to OM and LAD. * HTN: continue losartan * ED: event occurred during sexual encounter while taking sildenafil. 04/25/23 1203 <Electronically signed by Rommel Youssef DO> Cosigner Signature (if applicable): CC: ~ Signed [facility] Work Phone: 1(338) 219-569609-15-2023 Progress note Author Jose Lockwood [facility] April 25, 2023 7:23am Note Date/Time April 25, 2023 7:23am [facility] Medical Records Department [address] [place] [address] Progress Note - Cardiology 04/25/2320 MR#: [id number] Acct: [id number] Name: JOVANY MUÑIZ Rep #:[id number] : 1965 57 From: Jose Lockwood MD PCP: Dr. Sergei Henley MD Status: ADM IN Location: [place] [address] Subjective Subjective Patient seen and evaluated appears to be doing well. No complaints. Objective Data Vital Signs: Vital Signs Temp Pulse Resp BP Pulse Ox O2 Del Method 97.1 F L 62 18 126/80 H 97 Room Air 04/25/23 04:12 04/25/23 04:12 04/25/23 04:12 04/25/23 04:12 04/25/23 04:12 04/25/23 04:12 Oxygen Delivery Method Room Air Weight: 213 lb 2.992 oz Body Mass Index (BMI) 28.9 Intake & Output: Intake and Output for Last 24 Hours 04/23/23 04/24/23 04/25/23 23:59 23:59 23:59 Intake Total 1233.50 / 1233.50 Balance 1233.50 / 1233.50 Lab / Micro Data 04/25/23 06:27 04/24/23 03:25 Labs: Laboratory Results - last 24 hr 04/24/23 07:02: Troponin I [place] Sens 27332 H* 04/24/23 10:33: Activated Clotting Time 197 H 04/25/23 06:27: WBC 4.7, RBC 4.14 L, Hgb 13.9, Hct 41.3, MCV 99.8 H, MCH 33.6 H,MCHC 33.7, RDW Std Deviation 47.3 H, RDW Coeff of Leticia 12.9, Plt Count 185, MPV 9.5 Cardiology Labs/Tests 04/25/23 06:27: WBC 4.7, RBC 4.14 L, Hgb 13.9, Hct 41.3, MCV 99.8 H, MCH 33.6 H,MCHC 33.7, Plt Count 185, MPV 9.5 Rhythm: EKG: ECHO: Stress Test: Cardiac Cath: PCI: CT Surgery: Holter monitor: EPS: PPM: CXR: Chest CT Scan: Radiography Diagnostic Testing: Radiology Impression Brain MRI 04/24/23 00:08 IMPRESSION: undefined Echocardiogram 04/24/23 00:08 Interpretation Summary Normal LV size. Left ventricular systolic function is normal. The estimated ejection fraction is 60 %. Stage 1 diastolic dysfunction. Ordering Physician: Ar Torres Referring Physician: Eduard Henley MD Performed By: Karely Sanchez, LASHAWN, RVT Physical Exam Const alert and no apparent distress HEENT head/scalp atraumatic and moist oral mucous membranes Resp normal respiratory effort, no retractions, no use of accessory muscles and clearto auscultation bilaterally Cardio regular rate, regular rhythm, S1 normal heart sound and S2 normal heart sound GI normal to inspection, nondistended, normoactive bowel sounds, soft to palpation and non-tender Extremity normal to inspection Neuro oriented x3, CN's II-XII intact bilaterally, moves all extremities, no focal motor deficits and no sensory deficits noted Sensorium / Orientation: awake and alert Coordination / Balance: [id number] test normal and [id number] test normal Speech: speech normal Psych affect normal Assessment & Plan Assessment/Plan (1) NSTEMI (non-ST elevated myocardial infarction): PLAN: He presents with chest discomfort and is noted to have a non-ST elevation myocardial infarction. Patient underwent PCI of the mid LAD previously stented vessel and ramus intermedius. Episode of 4 beat nonsustained VT noted. * In the meantime he will continue on the aspirin * Continue Brilinta * Continue beta-robert * Continue high intensity statin. (2) Atherosclerotic heart disease of [place] coronary artery without angina pectoris: QUALIFIERS: [place] vs. transplanted heart: [place] heart QualifiedCode(s): I25.10 - Atherosclerotic heart disease of [place] coronary artery without angina pectoris PLAN: He does have a history of atherosclerotic cardiovascular disease. He has had previous stenting of the obtuse marginal branch and left anterior descendingartery. (3) Essential hypertension: PLAN: His blood pressure will continue to be treated by the current regimen. (4) HLD (hyperlipidemia): QUALIFIERS: Hyperlipidemia type: unspecified Qualified Code(s): E78.5 - Hyperlipidemia, unspecified PLAN: He will continue on high intensity statin. PLAN: Plan Cardiac catheterization demonstrated the following: Normal left main coronary artery. Left anterior descending artery previously stented is noted to have distal portion of the stent with a 95% stenotic lesion. Ramus intermedius which is subtotally occluded. Left circumflex artery with mild disease. Codominant right coronary artery with no significant disease. Preserved left ventricular systolic function. Based on the above angiographic findings the patient underwent PCI of the mid LAD and the ramus intermedius. Patient can be discharged for outpatient follow-up. 04/25/23722 <Electronically signed by Jose Lockwood MD> Cosigner Signature (if applicable): CC: ~ Signed [facility] Work Phone: 1(523) 754-239009-14-2023 Progress note Author Rommel Youssef [facility] April 24, 2023 2:53pm Note Date/Time April 24, 2023 8:27am [facility] Medical Records Department [address] [place] [address] Progress Note - Hospitalist 04/24/23819 MR#: [id number] Acct: [id number] Name: JOVANY MUÑIZ Rep #:[id number] : 1965 57 From: Rommel Youssef DO PCP: Dr. Sergei Henley MD Status: ADM IN Location: [place] [address]- Subjective Subjective Feels well. Some mild chest discomfort, but vastly improved. States that he had left sided weakness from his face to his leg. Now completely resolved. Objective Data Objective Data Vital Signs: Vital Signs Temp Pulse Resp BP Pulse Ox O2 Del Method 36.7 C 86 17 119/80 98 Room Air 04/24/23 03:37 04/24/23 03:37 04/24/23 03:37 04/24/23 03:37 04/24/23 03:37 04/24/23 03:37 Oxygen Delivery Method Room Air Weight: 96.7 kg Body Mass Index (BMI) 28.9 Lab / Micro Data 04/24/23 03:25 04/24/23 03:25 Labs: Laboratory Results - last 24 hr 04/23/23 21:30: WBC 5.3, RBC 4.28 L, Hgb 14.0, Hct 42.3, MCV 98.8 H, MCH 32.7 H,MCHC 33.1, RDW Std Deviation 45.7 H, RDW Coeff of Leticia 12.6, Plt Count 226, MPV 9.5, Immature Gran % (Auto) 0.400, Neut % (Auto) 48.0, Lymph % (Auto) 32.1, [place]% (Auto) 12.1 H, Eos % (Auto) 6.3 H, Baso % (Auto) 1.1 H, Absolute Neuts (auto) 2.5, Absolute Lymphs (auto) 1.69, Nucleated RBC % 0, Sodium 141, Potassium 3.4 L, Chloride 108 H, Carbon Dioxide 24.0, Anion Gap 9, BUN 15, Creatinine 1.24, Estim Creat Clear Calc 70.40, Est GFR (MDRD) Af Amer 77, Est GFR (MDRD) Non-Af 63, BUN/Creatinine Ratio 12.1, Glucose 104, Calcium 8.8, Troponin I High Sens 6 04/23/23 21:55: PT 12.9, INR 1.0, APTT 23.0 L 04/24/23 01:20: Troponin I High Sens 2962 H* 04/24/23 03:25: WBC 4.9, RBC 4.23 L, Hgb 13.9, Hct 42.0, MCV 99.3 H, MCH 32.9 H,MCHC 33.1, RDW Std Deviation 45.9 H, RDW Coeff of Leticia 12.8, Plt Count 192, MPV 9.2, Immature Gran % (Auto) 0.600, Neut % (Auto) 64.2, Lymph % (Auto) 20.9, [place]% (Auto) 9.2, Eos % (Auto) 4.3, Baso % (Auto) 0.8, Absolute Neuts (auto) 3.1, Absolute Lymphs (auto) 1.02, Nucleated RBC % 0, PT 12.8, INR 1.0, APTT 22.7 L, Sodium 138, Potassium 4.0, Chloride 108 H, Carbon Dioxide 24.0, Anion Gap 6, BUN14, Creatinine 0.91, Estim Creat Clear Calc 95.93, Est GFR (MDRD) Af Amer 110, Est GFR (MDRD) Non-Af 91, BUN/Creatinine Ratio 15.4, Glucose 106, Calcium 9.2, Troponin I High Sens 46875 H*, Triglycerides 258 H, Cholesterol 210 H, LDL Cholesterol 87, VLDL Cholesterol 52 H, HDL Cholesterol 71 04/24/23 07:02: Troponin I High Sens 00369 H* Radiography Diagnostic Testing: Radiology Impression Brain CT 04/23/23 21:34 IMPRESSION: Negative Brain CT without contrast. Electronically Signed: Kris White MD at 21:54 EDT , ADDENDUM: 04/23/232201 IMPRESSION: Negative Brain CT without contrast. N.B. : The above Results were Read Back by Kris White MD to Perez Dave DO, and understanding confirmed on 04/23/2023 21:55:56 (ET). Electronically Signed: Kris White MD at 21:54 EDT , Head/Neck CTA 04/23/23 21:34 IMPRESSION: Normal CTA Head with contrast. Moderate (60%) carotid stenosis bilaterally. Patent vertebral arteries bilaterally. Electronically Signed: Kris White MD at 22:05 EDT Reading Location ID and State: [id number] / [facility] Tel , Service support , ADDENDUM: 04/23/23 7680 IMPRESSION: Normal CTA Head with contrast. Moderate (60%) carotid stenosis bilaterally. Patent vertebral arteries bilaterally. N.B. : The above Results were Read Back by Kris White MD to Perez Dave DO, and understanding confirmed on 04/23/2023 22:06:20 (ET). Electronically Signed: Kris White MD at 22:05 EDT Reading Location ID and State: [id number] / [facility] Tel , Service support , Chest X-Ray 04/23/23 22:14 IMPRESSION: Normal x-ray examination of the chest. Electronically Signed: Kris White MD at 22:32 EDT Reading Location ID and State: [id number] / [facility] Tel , Service support , Physical Exam Const alert and no apparent distress HEENT head/scalp atraumatic and moist oral mucous membranes Resp normal respiratory effort, no retractions, no use of accessory muscles and clearto auscultation bilaterally Cardio regular rate, regular rhythm, S1 normal heart sound and S2 normal heart sound GI normal to inspection, nondistended, normoactive bowel sounds, soft to palpation and non-tender Extremity normal to inspection Neuro oriented x3, CN's II-XII intact bilaterally, moves all extremities, no focal motor deficits and no sensory deficits noted Sensorium / Orientation: awake and alert Coordination / Balance: paulba-[id number] test normal and gpxh-tl-bocl test normal Speech: speech normal Psych affect normal Assessment & Plan Assessment/Plan (1) Brain TIA: PLAN: Suspected Pt had left-sided paresthesias and facial droop Head CT negative. CTA H/N showed 60% carotid stenosis. MRI pending PT OT ST Continue ASA (2) NSTEMI (non-ST elevated myocardial infarction): PLAN: Troponins up to 11,986. Heparin gtt ASA, clopidogrel, losartan s/p PCI to high-grade stenosis of LAD. Echo shows and EF of 60% PLAN: Plan Chronic conditions: * CAD: known. Previous PCI to OM and LAD. * HTN: continue losartan * ED: event occurred during sexual encounter while taking sildenafil. VTE prophylaxis: not indicted as pt is anticoagulated. Charges/Coding Visit Charges Inpatient E&M: 72095 Subs Hosp L2 04/24/23 1453 <Electronically signed by Rommel Youssef DO> Cosigner Signature (if applicable): CC: ~ Signed [facility] Work Phone: 1(761) 986-952009-14-2023 History and physical note Author Ar Torres [facility] April 24, 2023 10:35am Note Date/Time April 23, 2023 11:01pm [facility] Medical Records Department [address] [place] [address] H&P Exam - Hospitalist 04/23/23 2301 MR#: [id number] Acct: [id number] Name: JOVANY MUÑIZ Rep #:[id number] : 1965 57 From: Ar Torres MD PCP: Dr. Sergei Henley MD Status: ADM [facility] HPI - General General Date of Admission: 04/23/23 Date of Service: 04/23/23 Chief Complaint: chest pain HPI Narrative JOVANY MUÑIZ, is a 57 M history of CAD status post assistance about 13 years ago who presents emergency department with chest pain. Of note patient took half a tablet of sildenafil. His chest pain started after sexual encounter. His chestpain is substernal and nonradiating. He described chest pain as tightness and heaviness. He received morphine in the emergency department to help with his chest pain. Enroute to the hospital by the squad patient had strokelike symptoms. His strokelike symptoms was described at left facial droop; dysarthria; left arm weakness; and left leg weakness. Of note patient also had numbness of his left. ED physician reported that on initial presentation patient still had strokelikesymptoms including facial droop. However after a CT scan patient's strokelike symptoms completely resolved. Teleneurologist saw patient and patient was not acandidate of thrombolytics. [facility]LY [facility], LAT[facility] Medical History Atherosclerotic heart disease of [place] coronary artery without angina pectoris Essential hypertension HLD (hyperlipidemia) Old myocardial infarction Presence of stent in coronary artery (~06/19/10) Home Medications aspirin 81 mg tablet,delayed release (Adult Low Dose Aspirin) 81 mg PO QDAY heart health 08/06/17 [History Last Taken 10/30/21] clopidogrel 75 mg tablet 75 mg PO QDAY anti platelet 90 days #90 tabs 08/06/17 [History Last Taken 10/30/21] loratadine 10 mg tablet (Claritin) 10 mg PO QDAY PRN Allergies 08/06/17 [History Last Taken 10/30/21] nitroglycerin 0.4 mg sublingual tablet (Nitrostat) 0.4 mg sublingual Q5M PRN CHEST PAIN 08/06/17 [History Last Taken 10/30/21] buspirone 5 mg tablet 5 mg PO BID 04/23/23 [History Last Taken Unknown] losartan 50 mg tablet 50 mg PO .day 04/23/23 [History Last Taken Unknown] sildenafil 100 mg tablet 100 mg PO PRN PRN sexual activity 04/23/23 [History Last Taken Unknown] Allergy/AdvReac Type Severity Reaction Status Date / Time No Known Allergies Allergy Verified 09/05/22 14:16 Family History Grandfather , age 76 CVA (cerebral vascular accident) Surgical History History of left heart catheterization (~12/2010) Presence of coronary angioplasty implant and graft (~06/19/10) Social History Smoking Status: Former smoker how long ago did patient quit smokin alcohol intake: current alcohol intake frequency: 0-2 drinks per day Alcohol type: beer substance use type: does not use caffeine: Yes Type: coffee Number of servings: 2 what type of physical activity do you participate in: none seatbelt use: sometimes do you feel safe at home: Yes ROS ROS Narrative Pertinent positives and pertinent negatives as noted in HPI. All other systems were reviewed and are negative Vital Signs Vital Signs Vital Signs: 04/23/23 21:44 04/23/23 21:55 04/23/23 21:34 Temperature 97.0 F L Temperature Source Axillary Pulse Rate 82 83 Respiratory Rate 14 12 Blood Pressure 121/80 H 121/80 H Blood Pressure Mean 93 93 Pulse Ox 98 99 99 Oxygen Delivery Method Room Air Room Air Room Air 04/23/23 21:58 Temperature 96.7 F L Temperature Source Oral Pulse Rate Respiratory Rate Blood Pressure Blood Pressure Mean Pulse Ox Oxygen Delivery Method Weight Weight: 98.7 kg Body Mass Index (BMI) 29.5 Physical Exam Narrative Physical exam: General: Well-nourished, well-developed. Head: Normocephalic, atraumatic, no tenderness Eyes: Vision is grossly intact. EOMI ENT, no trauma, moist mucous membranes, no rhinorrhea Neck: Nontender, No thyromegaly. CVS: Regular rate and rhythm. S1-S2 present. No murmur, gallop or rub. Respiratory : clear to auscultation bilaterally, chest wall nontender Abdomen: Soft, nontender, nondistended, normal bowel sounds, no masses : Deferred Back: Nontender, no CVA tenderness, no midline spinal tenderness, deformities, step-offs Extremities: Nontender full range of motion, no trauma Skin: Normal color, no trauma, abrasions Neuro: Alert, oriented, cranial nerves II through XII grossly intact. Psychiatry: Normal mood. Normal affect. Not depressed. Not anxious. Results Lab / Micro Data 04/24/23 03:25 04/24/23 03:25 Labs: Laboratory Results - last 24 hr 04/23/23 21:30: WBC 5.3, RBC 4.28 L, Hgb 14.0, Hct 42.3, MCV 98.8 H, MCH 32.7 H,MCHC 33.1, RDW Std Deviation 45.7 H, RDW Coeff of Leticia 12.6, Plt Count 226, MPV 9.5, Immature Gran % (Auto) 0.400, Neut % (Auto) 48.0, Lymph % (Auto) 32.1, [place]% (Auto) 12.1 H, Eos % (Auto) 6.3 H, Baso % (Auto) 1.1 H, Absolute Neuts (auto) 2.5, Absolute Lymphs (auto) 1.69, Nucleated RBC % 0, Sodium 141, Potassium 3.4 L, Chloride 108 H, Carbon Dioxide 24.0, Anion Gap 9, BUN 15, Creatinine 1.24, Estim Creat Clear Calc 70.40, Est GFR (MDRD) Af Amer 77, Est GFR (MDRD) Non-Af 63, BUN/Creatinine Ratio 12.1, Glucose 104, Calcium 8.8, Troponin I High Sens 6 04/23/23 21:55: PT 12.9, INR 1.0, APTT 23.0 L Radiology Impression Brain CT 04/23/23 21:34 IMPRESSION: Negative Brain CT without contrast. Electronically Signed: Kris White MD at 21:54 EDT Reading Location ID and State: [employer] / [facility] Tel , Service support , ADDENDUM: 04/23/23 2202 IMPRESSION: Negative Brain CT without contrast. N.B. : The above Results were Read Back by Kris White MD to Perez Dave DO, and understanding confirmed on 04/23/2023 21:55:56 (ET). Electronically Signed: Kris White MD at 21:54 EDT Reading Location ID and State: [employer] / [facility] Tel , Service support , Head/Neck CTA 04/23/23 21:34 IMPRESSION: Normal CTA Head with contrast. Moderate (60%) carotid stenosis bilaterally. Patent vertebral arteries bilaterally. Electronically Signed: Kris White MD at 22:05 EDT Reading Location ID and State: [employer] / [facility] Tel , Service support , ADDENDUM: 04/23/23 2213 IMPRESSION: Normal CTA Head with contrast. Moderate (60%) carotid stenosis bilaterally. Patent vertebral arteries bilaterally. N.B. : The above Results were Read Back by Kris White MD to Perez Dave DO, and understanding confirmed on 04/23/2023 22:06:20 (ET). Electronically Signed: Kris White MD at 22:05 EDT , Chest X-Ray 04/23/23 22:14 IMPRESSION: Normal x-ray examination of the chest. Electronically Signed: Kris White MD at 22:32 EDT , Assessment & Plan Assessment/Plan (1) Brain TIA: (2) Chest pain: PLAN: Plan TIA Serial NINDS NIH Scale ordered Impression of head/neck CTA by radiology:Normal CTA Head with contrast. Moderate (60%) carotid stenosis bilaterally. Patent vertebral arteries bilaterally Upon my personal head CT image review: I agree with radiologist interpretation Lipid profile and A1c ordered. Physical therapy, occupational therapy and speech therapy to work with patient. N.p.o. until bedside swallow eval. Daily aspirin. High intensity statin Permissive hypertension. Control blood pressure with labetalol for systolic blood pressure of more than 220 or diastolic blood pressure of more than 120. MRI of brain Echocardiogram ordered. Non-STEMI Place on a monitored bed at progressive care unit Actual CXR image was independently interpreted. No acute cardiopulmonary process was noted. Agrees with radiology disposition Actual EKG tracing was independently visualized. EKG tracing did not show ST elevation MS. ASA 81 mg p.o. daily; and Plavix continued. Morphine as needed for pain ordered We will check lipid panel. Statin: High intensity statin ordered. Initial high sensitive troponin 6 trended to 11,986 on fourth troponin. Stat EKG as needed for chest pain Started on a heparin drip and cardiology consulted. DVT prophylaxis ordered: Not indicated as patient be started on heparin drip fornon-STEMI. Time spent in the patient's overall evaluation,decision-making process, review of diagnostic data, adjustment of management, discussion with other providers, nursing nursing and ancillary staff involved in patient's care documentation, 70minutes. Charges/Coding Visit Charges Inpatient E&M: 72824 Init Hosp L3 04/24/23 1035 <Electronically signed by Ar Torres MD> Cosigner Signature (if applicable): CC: Dr. Sergei Henley MD; Dr. Ar Torres MD~ Signed [facility] Work Phone: 1(901) 353-984209-14-2023 Consult note Author Jose Lockwood [facility] April 24, 2023 10:00am Note Date/Time April 24, 2023 7:34am [facility] Medical Records Department [address] [place] [address] Consultation - Cardiology 04/24/23 0726 MR#: [id number] Acct: [id number] Name: JOVANY MUÑIZ Rep #:[id number] : 1965 57 From: Jose Lockwood MD PCP: Dr. Sergei Henley MD Status: ADM IN Location: [place] [address] Assessment & Plan Assessment/Plan (1) NSTEMI (non-ST elevated myocardial infarction): PLAN: He presents with chest discomfort and is noted to have a non-ST elevation myocardial infarction. The plan at this time will be for him to undergo a left heart catheterization risk benefits alternatives have been explained to him and depending on the findings further recommendations will be made. * In the meantime he will continue on the aspirin * Continue clopidogrel * Continue beta-robert * Continue high intensity statin. (2) Atherosclerotic heart disease of [place] coronary artery without angina pectoris: QUALIFIERS: [place] vs. transplanted heart: [place] heart QualifiedCode(s): I25.10 - Atherosclerotic heart disease of [place] coronary artery without angina pectoris PLAN: He does have a history of atherosclerotic cardiovascular disease. He has had previous stenting of the obtuse marginal branch and left anterior descendingartery and this will be reevaluated at the cardiac catheterization. (3) Essential hypertension: PLAN: His blood pressure will continue to be treated by the current regimen. (4) HLD (hyperlipidemia): QUALIFIERS: Hyperlipidemia type: unspecified Qualified Code(s): E78.5 - Hyperlipidemia, unspecified PLAN: He will continue on high intensity statin. PLAN: Plan Cardiac catheterization demonstrated the following: Normal left main coronary artery. Left anterior descending artery previously stented is noted to have distal portion of the stent with a 95% stenotic lesion. Ramus intermedius which is subtotally occluded. Left circumflex artery with mild disease. Codominant right coronary artery with no significant disease. Preserved left ventricular systolic function. Based on the above angiographic findings the patient will undergo PCI of the midLAD. HPI Consult Data Date of Consult: 04/24/23 HPI Narrative HPI Narrative: JOVANY MUÑIZ, is a 57 M who presents to the emergency room complaining of chest discomfort as well as difficulty enunciating his words. This apparently startedlast night. He had been compliant with all his medications and denied any shortness of breath or paroxysmal nocturnal dyspnea. He started complaining of the above called the emergency medical squad who at the time initially thought that he had had a cerebrovascular accident. He was brought to the emergency room and EKG on my read did demonstrate subtle changes in lead I and aVL and ST depression noted in 3 and aVF which may be considered on injury pattern but a STEMI was not called. And CT scan did not demonstrate any acute changes. Cardiac enzymes however were noted to be abnormal. He does have a history of hypertension, coronary artery disease status post previous angioplasty and stenting of the obtuse marginal branch, left circumflex artery, and left anterior descending artery. He had had a stress test a year ago which demonstrated no evidence of ischemia. At this particular time his cardiac enzymes were noted to be markedly elevated. He was treated with intravenous heparin cardiology was called for further evaluation and management. FOR[facility]LY [facility], LAT[facility] Medical History (Updated 04/24/23 @ 07:[address] Jose Lockwood MD) Atherosclerotic heart disease of [place] coronary artery without angina pectoris Essential hypertension HLD (hyperlipidemia) Old myocardial infarction Presence of stent in coronary artery (~06/19/10) Home Medications aspirin 81 mg tablet,delayed release (Adult Low Dose Aspirin) 81 mg PO QDAY heart [facility] 08/06/17 [History Last Taken 10/30/21] clopidogrel 75 mg tablet 75 mg PO QDAY anti platelet 90 days #90 tabs 08/06/17 [History Last Taken 10/30/21] loratadine 10 mg tablet (Claritin) 10 mg PO QDAY PRN Allergies 08/06/17 [History Last Taken 10/30/21] nitroglycerin 0.4 mg sublingual tablet (Nitrostat) 0.4 mg sublingual Q5M PRN CHEST PAIN 08/06/17 [History Last Taken 10/30/21] buspirone 5 mg tablet 5 mg PO BID 04/23/23 [History Last Taken Unknown] losartan 50 mg tablet 50 mg PO .day 04/23/23 [History Last Taken Unknown] sildenafil 100 mg tablet 100 mg PO PRN PRN sexual activity 04/23/23 [History Last Taken Unknown] Allergy/AdvReac Type Severity Reaction Status Date / Time No Known Allergies Allergy Verified 09/05/22 14:16 Family History Grandfather , age 76 CVA (cerebral vascular accident) Surgical History History of left heart catheterization (~12/2010) Presence of coronary angioplasty implant and graft (~06/19/10) Social History Smoking Status: Former smoker how long ago did patient quit smokin alcohol intake: current alcohol intake frequency: 0-2 drinks per day Alcohol type: beer substance use type: does not use caffeine: Yes Type: coffee Number of servings: 2 what type of physical activity do you participate in: none seatbelt use: sometimes do you feel safe at home: Yes ROS Constitutional Constitutional: Denies fever(s) or weight loss Eyes Eyes: Reports systems reviewed and no addt'l complaints, except as documented ENT HEENT: Reports systems reviewed and no addt'l complaints, except as documented Cardiovascular Cardiovascular: Denies chest pain at rest, chest pain with activity, dyspnea at rest, dyspnea on exertion, edema, palpitations or paroxysmal nocturnal dyspnea Respiratory/Chest Respiratory/Chest: Denies dyspnea on exertion, productive cough, shortness of breath at rest or shortness of breath with exertion Gastrointestinal Gastrointestinal: Denies change in bowel habits, nausea, vomiting or weight changes Genitourinary Genitourinary: Denies difficulty urinating Musculoskeletal Musculoskeletal: Denies joint stiffness or muscle weakness Integumentary Integumentary: Denies lesions Neurologic Neurologic: Denies dizziness or syncope Psychiatric Psychiatric: Denies anxiety Endocrine Endocrinology: Denies excessive sweating or fatigue Hematologic/Lymphatic Hematologic/Lymphatic: Denies anemia Allergic/Immunologic Allergic/Immunologic: Denies seasonal rhinorrhea Physical Exam Const alert, oriented x3 and no apparent distress General Appearance: cooperative HEENT hearing grossly normal bilaterally Head and Scalp: atraumatic Eyes EOMs intact bilaterally Neck General: normal visual inspection Chest inspection of chest normal and palpation of chest normal Resp normal respiratory effort Auscultation: clear to auscultation bilaterally Cardio regular rate, regular rhythm, S1 normal heart sound and S2 normal heart sound Jugular Venous Distention: JVD GI normal to inspection, nondistended, normoactive bowel sounds Extremity normal capillary refill and no pedal edema Peripheral Pulses: Yes pulses 2+ throughout and femoral pulses present Skin no rashes or lesions noted Neuro oriented x3 and CN's II-XII intact bilaterally Psych Appearance: grossly normal and appropriate Risk Stratification Risk Stratification Applicable: Yes Age >/= 65: No >/= 3 CAD Risk Factors (HTN, HLD, DM, family hx of CAD, or current smoker): Yes Aspirin Use in the Past 7 Days: Yes Severe Angina (>/= episodes in 24 hours): Yes EKG ST Changes >/= 0.5mm: No Positive Cardiac Marker: Yes JENN Risk Stratification Score: 4 JENN % Risk: 20% Risk Objective Data Vital Signs: Vital Signs Temp Pulse Resp BP Pulse Ox O2 Del Method 98.1 F 86 17 119/80 98 Room Air 04/24/23 03:37 04/24/23 03:37 04/24/23 03:37 04/24/23 03:37 04/24/23 03:37 04/24/23 03:37 Oxygen Delivery Method Room Air Weight: 213 lb 2.992 oz Body Mass Index (BMI) 28.9 Lab / Micro Data 04/24/23 03:25 04/24/23 03:25 Labs: Laboratory Results - last 24 hr 04/23/23 21:30: WBC 5.3, RBC 4.28 L, Hgb 14.0, Hct 42.3, MCV 98.8 H, MCH 32.7 H,MCHC 33.1, RDW Std Deviation 45.7 H, RDW Coeff of Leticia 12.6, Plt Count 226, MPV 9.5, Immature Gran % (Auto) 0.400, Neut % (Auto) 48.0, Lymph % (Auto) 32.1, [place]% (Auto) 12.1 H, Eos % (Auto) 6.3 H, Baso % (Auto) 1.1 H, Absolute Neuts (auto) 2.5, Absolute Lymphs (auto) 1.69, Nucleated RBC % 0, Sodium 141, Potassium 3.4 L, Chloride 108 H, Carbon Dioxide 24.0, Anion Gap 9, BUN 15, Creatinine 1.24, Estim Creat Clear Calc 70.40, Est GFR (MDRD) Af Amer 77, Est GFR (MDRD) Non-Af 63, BUN/Creatinine Ratio 12.1, Glucose 104, Calcium 8.8, Troponin I High Sens 6 04/23/23 21:55: PT 12.9, INR 1.0, APTT 23.0 L 04/24/23 01:20: Troponin I High Sens 2962 H* 04/24/23 03:25: WBC 4.9, RBC 4.23 L, Hgb 13.9, Hct 42.0, MCV 99.3 H, MCH 32.9 H,MCHC 33.1, RDW Std Deviation 45.9 H, RDW Coeff of Leticia 12.8, Plt Count 192, MPV 9.2, Immature Gran % (Auto) 0.600, Neut % (Auto) 64.2, Lymph % (Auto) 20.9, [place]% (Auto) 9.2, Eos % (Auto) 4.3, Baso % (Auto) 0.8, Absolute Neuts (auto) 3.1, Absolute Lymphs (auto) 1.02, Nucleated RBC % 0, PT 12.8, INR 1.0, APTT 22.7 L, Sodium 138, Potassium 4.0, Chloride 108 H, Carbon Dioxide 24.0, Anion Gap 6, BUN14, Creatinine 0.91, Estim Creat Clear Calc 95.93, Est GFR (MDRD) Af Amer 110, Est GFR (MDRD) Non-Af 91, BUN/Creatinine Ratio 15.4, Glucose 106, Calcium 9.2, Troponin I High Sens 53600 H*, Triglycerides 258 H, Cholesterol 210 H, LDL Cholesterol 87, VLDL Cholesterol 52 H, HDL Cholesterol 71 Cardiology Labs/Tests 04/23/23 21:30: WBC 5.3, RBC 4.28 L, Hgb 14.0, Hct 42.3, MCV 98.8 H, MCH 32.7 H,MCHC 33.1, Plt Count 226, MPV 9.5, Immature Gran % (Auto) 0.400, Neut % (Auto) 48.0, Lymph % (Auto) 32.1, [place] % (Auto) 12.1 H, Eos % (Auto) 6.3 H, Baso % (Auto) 1.1 H, Absolute Neuts (auto) 2.5, Nucleated RBC % 0, Sodium 141, Potassium 3.4 L, Chloride 108 H, Carbon Dioxide 24.0, Anion Gap 9, BUN 15, Creatinine 1.24, Est GFR (MDRD) Af Amer 77, Est GFR (MDRD) Non-Af 63, BUN/Creatinine Ratio 12.1, Glucose 104, Calcium 8.8 04/23/23 21:55: PT 12.9, INR 1.0, APTT 23.0 L 04/24/23 03:25: WBC 4.9, RBC 4.23 L, Hgb 13.9, Hct 42.0, MCV 99.3 H, MCH 32.9 H,MCHC 33.1, Plt Count 192, MPV 9.2, Immature Gran % (Auto) 0.600, Neut % (Auto) 64.2, Lymph % (Auto) 20.9, [place] % (Auto) 9.2, Eos % (Auto) 4.3, Baso % (Auto) 0.8, Absolute Neuts (auto) 3.1, Nucleated RBC % 0, PT 12.8, INR 1.0, APTT 22.7 L, Sodium 138, Potassium 4.0, Chloride 108 H, Carbon Dioxide 24.0, Anion Gap 6, BUN 14, Creatinine 0.91, Est GFR (MDRD) Af Amer 110, Est GFR (MDRD) Non-Af 91, BUN/Creatinine Ratio 15.4, Glucose 106, Calcium 9.2, Triglycerides 258 H, Cholesterol 210 H, LDL Cholesterol 87, VLDL Cholesterol 52 H, HDL Cholesterol 71 Rhythm: EKG: ECHO: Stress Test: Cardiac Cath: PCI: CT Surgery: Holter monitor: EPS: PPM: CXR: Chest CT Scan: Radiography Diagnostic Testing: Radiology Impression Brain CT 04/23/23 21:34 IMPRESSION: Negative Brain CT without contrast. Electronically Signed: Kris White MD at 21:54 EDT Reading Location ID and State: [id number] / [facility] Tel , Service support , ADDENDUM: 04/23/232201 IMPRESSION: Negative Brain CT without contrast. N.B. : The above Results were Read Back by Kris White MD to Perez Dave DO, and understanding confirmed on 04/23/2023 21:55:56 (ET). Electronically Signed: Kris White MD at 21:54 EDT Reading Location ID and State: [id number] / [facility] Tel , Service support , Head/Neck CTA 04/23/23 21:34 IMPRESSION: Normal CTA Head with contrast. Moderate (60%) carotid stenosis bilaterally. Patent vertebral arteries bilaterally. Electronically Signed: Kris White MD at 22:05 EDT Reading Location ID and State: [id number] / [facility] Tel , Service support , ADDENDUM: 04/23/232212 IMPRESSION: Normal CTA Head with contrast. Moderate (60%) carotid stenosis bilaterally. Patent vertebral arteries bilaterally. N.B. : The above Results were Read Back by Kris White MD to Perez Dave DO, and understanding confirmed on 04/23/2023 22:06:20 (ET). Electronically Signed: Kris White MD at 22:05 EDT Reading Location ID and State: [id number] / [facility] Tel , Service support , Chest X-Ray 04/23/23 22:14 IMPRESSION: Normal x-ray examination of the chest. Electronically Signed: Kris White MD at 22:32 EDT Reading Location ID and State: [id number] / [facility] Tel , Service support , 04/24/23 1000 <Electronically signed by Jose Lockwood MD> Cosigner Signature (if applicable): CC: Dr. Sergei Henley MD; Dr. Jose Lockwood MD; Dr. Ar Torres MD~ Signed [facility] Work Phone: [phone]) 130-910009-14-2023 Discharge summary Author Perez Dave [facility] April 24, 2023 12:00am Note Date/Time April 23, 2023 9:39pm [facility] Medical Records Department [address] [place] [address] Emergency Department Summary 04/23/23 MR#: [id number] Acct: [id number] Name: JOVANY MUÑIZ Rep #:[id number] : 1965 57 From: Perez Dave DO PCP: Dr. Sergei Henley MD Status: ADM IN Location: [place] [address] HPI History of Present Illness Chief Complaint: Stroke Alert Detail of Chief Complaint: Stroke and chest pain Informant: patient Narrative Narrative: Patient presents the emergency department via EMS. Initial call went out for person with chest pain. Patient was found to be bradycardic. In route to the hospital patient started experiencing left-sided facial droop and left-sided weakness. Stroke team was called from the field. Patient with prior cardiac history and cardiac stenting. No prior stroke history. He denies falls or headinjuries. Denies recent illness. Describes pressure in his chest. Slight shortness of breath. [facility] Medical History Atherosclerotic heart disease of [place] coronary artery without angina pectoris Essential hypertension HLD (hyperlipidemia) Old myocardial infarction Presence of stent in coronary artery (~06/19/10) Home Medications aspirin 81 mg tablet,delayed release (Adult Low Dose Aspirin) 81 mg PO QDAY heart health 08/06/17 [History Last Taken 10/30/21] clopidogrel 75 mg tablet 75 mg PO QDAY anti platelet 90 days #90 tabs 08/06/17 [History Last Taken 10/30/21] loratadine 10 mg tablet (Claritin) 10 mg PO QDAY PRN Allergies 08/06/17 [History Last Taken 10/30/21] nitroglycerin 0.4 mg sublingual tablet (Nitrostat) 0.4 mg sublingual Q5M PRN CHEST PAIN 08/06/17 [History Last Taken 10/30/21] buspirone 5 mg tablet 5 mg PO BID 04/23/23 [History Last Taken Unknown] losartan 50 mg tablet 50 mg PO .day 04/23/23 [History Last Taken Unknown] sildenafil 100 mg tablet 100 mg PO PRN PRN sexual activity 04/23/23 [History Last Taken Unknown] Allergy/AdvReac Type Severity Reaction Status Date / Time No Known Allergies Allergy Verified 09/05/22 14:16 Family History Grandfather , age 76 CVA (cerebral vascular accident) Surgical History History of left heart catheterization (~12/2010) Presence of coronary angioplasty implant and graft (~06/19/10) Social History Smoking Status: Former smoker how long ago did patient quit smokin alcohol intake: current alcohol intake frequency: 0-2 drinks per day Alcohol type: beer substance use type: does not use caffeine: Yes Type: coffee Number of servings: 2 what type of physical activity do you participate in: none seatbelt use: sometimes do you feel safe at home: Yes ROS ROS ED Review of Systems ROS Unobtainable: other Constitutional Constitutional ED: Reports lethargy; Denies chills, fever(s), sweats or weight loss Eyes Eyes: Denies blurry vision, change in vision or diplopia ENT ENT ED: Denies rhinorrhea or sore throat Cardiovascular Cardiovascular: Reports chest pain; Denies orthopnea or racing heartbeat Respiratory/Chest Respiratory/Chest: Denies cough, dyspnea, dyspnea on exertion, orthopnea or sputum Gastrointestinal Gastrointestinal: Denies abdominal pain, diarrhea, nausea or vomiting Genitourinary Genitourinary ED: Denies dysuria, hematuria or urinary frequency Musculoskeletal Musculoskeletal: Denies arthralgias, back pain, myalgias or neck pain Integumentary Denies abscess, Abrasions or rash Neurologic Neurologic: Reports weakness; Denies headache(s) Psychiatric Psychiatric: Denies anxiety, depression or suicidal thoughts Endocrine Endocrinology: Denies polydipsia, polyphagia or polyuria Hematologic/Lymphatic Hematologic/Lymphatic: Denies easy bleeding, easy bruising or lymphadenopathy Allergic/Immunologic Allergic/Immunologic ED: Denies mouth swelling, tongue swelling or urticaria EXAM Physical Exam Const Vital Signs: 04/23/23 21:44 04/23/23 21:55 04/23/23 21:34 Temperature 97.0 F L Temperature Source Axillary Pulse Rate 82 83 Respiratory Rate 14 12 Blood Pressure 121/80 H 121/80 H Blood Pressure Mean 93 93 Pulse Ox 98 99 99 Oxygen Delivery Method Room Air Room Air Room Air 04/23/23 21:58 Temperature 96.7 F L Temperature Source Oral Pulse Rate Respiratory Rate Blood Pressure Blood Pressure Mean Pulse Ox Oxygen Delivery Method Positive well nourished and well developed General Appearance ED: well developed and NAD HEENT Reports TM's clear and moist mucous membranes normocephalic and atraumatic; Negative for trauma or tenderness Tympanic Membrane ED: Yes TM's clear Eyes PERRL and EOMs intact bilaterally General Eye ED: Negative for pale conjunctiva or scleral icterus Neck no lymphadenopathy, supple and no JVD General: Negative for tenderness Chest Wall inspection of chest normal and palpation of chest normal Chest: Negative for tenderness Resp normal respiratory effort and clear to auscultation bilaterally Effort and Inspection: Negative for respiratory distress or pain with movement Auscultation: Negative for rhonchi, wheezes or diminished lung sounds Cardio regular rate, regular rhythm, S1 normal heart sound, S2 normal heart sound and no murmurs Peripheral Pulses: pulses 2+ throughout GI normal to inspection, nondistended, normoactive bowel sounds, soft to palpation,non-tender, non-distended and no masses Back/Spine no CVA tenderness and no thoracic nor lumbar tenderness Extremity normal to inspection General Extremety ED: Negative for edema General Extremity: Negative for edema Neuro oriented x3, CN's II-XII intact bilaterally, no sensory deficits noted and gait normal Neuro Narrative: NIH stroke scale is a 10. Patient has left-sided facial droop with dysarthria as well as subtle weakness of the left arm and left leg with decree sensation onthe left. Sensorium / Orientation: awake, alert, oriented to person, oriented to place andoriented to time Motor Exam: strength 5/5 throughout and strength abnormal Psych mental status grossly normal Skin no rashes or lesions noted and no wounds MDM MDM MDM Narrative Medical decision making narrative: Patient arrives via EMS. Stroke team called. Patient was evaluated in the hallway and sent to CT scanner. I did evaluate the transmitted [facility] which showed bradycardia without signs of ST elevation MS. Will obtain EKG uponarrival back to the room as well as basic labs and troponin. Patient will be evaluated by stroke neurologist via robot from [facility]. Patient was evaluated by [facility] neurology. When he arrived back from CT scanner his stroke symptoms had resolved. Facial droop was resolved slurred speech resolvedweakness and paresthesias resolved. Stroke neurologist felt patient did not meet thrombolysis criteria and I am in agreement with this. Patient does continue to complain of chest pain and pressure. He was given morphine for pain. I withheld giving nitro as patient had taken a Viagra tablet prior to coming to the emergency department. EKG obtained on arrival showed a sinus rhythm with a rate of [address] elevation MS noted although the computerthought there was ST elevation MS. CT scan of the brain without contrast was normal. Patient had a CTA of the head and neck that showed 60% stenosis of bilateral carotid arteries. No LVO. Case will be discussed with hospitalist toevaluate patient for admission for TIA and chest pain. Lab Data Attestation: I reviewed the patient's lab results. Labs: Laboratory Results - last 24 hr 04/23/23 04/23/23 21:30 21:55 WBC 5.3 RBC 4.28 L Hgb 14.0 Hct 42.3 MCV 98.8 H MCH 32.7 H MCHC 33.1 RDW Std Deviation 45.7 H RDW Coeff of Leticia 12.6 Plt Count 226 MPV 9.5 Immature Gran % (Auto) 0.400 Neut % (Auto) 48.0 Lymph % (Auto) 32.1 [place] % (Auto) 12.1 H Eos % (Auto) 6.3 H Baso % (Auto) 1.1 H Absolute Neuts (auto) 2.5 Absolute Lymphs (auto) 1.69 Nucleated RBC % 0 PT 12.9 INR 1.0 APTT 23.0 L Sodium 141 Potassium 3.4 L Chloride 108 H Carbon Dioxide 24.0 Anion Gap 9 BUN 15 Creatinine 1.24 Estim Creat Clear Calc 70.40 Est GFR (MDRD) Af Amer 77 Est GFR (MDRD) Non-Af 63 BUN/Creatinine Ratio 12.1 Glucose 104 Calcium 8.8 Troponin I High Sens 6 Radiography Chest X-Ray - ED: 1 View Diagnostic Testing: Clinical Impression(s) from Imaging Studies Brain CT 04/23/23 21:34 IMPRESSION: Negative Brain CT without contrast. Electronically Signed: Kris White MD at 21:54 EDT Reading Location ID and State: [id number] / [facility] Tel , Service support , ADDENDUM: 04/23/232 IMPRESSION: Negative Brain CT without contrast. N.B. : The above Results were Read Back by Kris White MD to Perez Dave DO, and understanding confirmed on 04/23/2023 21:55:56 (ET). Electronically Signed: Kris White MD at 21:54 EDT Reading Location ID and State: [employer] / [facility] Tel , Service support , Head/Neck CTA 04/23/23 21:34 IMPRESSION: Normal CTA Head with contrast. Moderate (60%) carotid stenosis bilaterally. Patent vertebral arteries bilaterally. Electronically Signed: Kris White MD at 22:05 EDT Reading Location ID and State: [employer] / [facility] Tel , Service support , ADDENDUM: 04/23/233 IMPRESSION: Normal CTA Head with contrast. Moderate (60%) carotid stenosis bilaterally. Patent vertebral arteries bilaterally. N.B. : The above Results were Read Back by Kris White MD to Perez Dave DO, and understanding confirmed on 04/23/2023 22:06:20 (ET). Electronically Signed: Kris White MD at 22:05 EDT Reading Location ID and State: [employer] / [place] Tel , Service support , Chest X-Ray 04/23/23 22:14 IMPRESSION: Normal x-ray examination of the chest. Electronically Signed: Kris White MD at 22:32 EDT , 1 view chest x-ray obtained interpreted by myself as no acute disease process. No evidence of infiltrate or pneumothorax. Radiology in agreement. EKG Initial EKG: Attestation: I personally reviewed and interpreted this EKG as follows: Comments: Sinus rhythm with a rate of [address] elevation MS noted. Hehad some nonspecific ST changes. Prior EKG tracings: available for review Prior: Unchanged Discharge Plan Dx/Rx/DC Orders Clinical Impression: Brain TIA, History of coronary artery disease, Chest pain Disposition Disposition: Acute Care [facility] Discharge Date/Time: 04/23/23 23:43 What to do if you have Problems For any increased pain, shortness of breath, bleeding, nausea or vomiting, chestpain, or any unexpected problems, contact your Primary Care Provider. Call [facility] ([phone]) or report to the closest Emergency Room. Call 911 if necessary. 04/24/23 0000 <Electronically signed by Perez Dave DO> Cosigner Signature (if applicable): CC: Dr. Sergei Henley MD ~ Signed [facility] Work Phone: [phone]) 369-581111-01-2010 Evaluation note* Diagnosis Onset Date Resolution Status Atherosclerotic heart diseas e of [place] coronary artery without angina pectoris chronic Essential hypertension chron ic HLD (hyperlipidemia) chronic Presence of stent in coronary artery June, chronic [facility] Work Phone: [phone]) 128-502111-01-2010 Evaluation note* Diagnosis Onset Date Resolution Status Atherosclerotic heart diseas e of [place] coronary artery without angina pectoris chronic Essential hypertension chron ic HLD (hyperlipidemia) chronic Presence of stent in coronary artery June, chronic Chest pain, atypical acute [facility] Work Phone: Discharge summary Author Rommel Youssef [facility] June 15, 2023 10:31am Note Date/Time June 15, 2023 1 0:26am [facility] Medical Records Department [address] [place] [address] Discharge Summary 06/15/23 1024 MR#: [id number] Acct: [id number] Name: JOVANY MUÑIZ Rep #:[id number] : 1965 57 From: Rommel Youssef DO PCP: Dr. Sergei Henley MD Status: ADM FELICITA Location: [place] [address] Providers Date of Admission: 06/14/23 Primary Care Physician: Dr. Sergei Henley MD Reason For Visit: DIVERTICULITIS Diagnosis Discharge Diagnosis (1) Sigmoid diverticulitis: Status: Acute Code(s): K57.32 - Diverticulitis of large intestine without perforation or abscess without bleeding Plan: Abdominal pain secondary to sigmoid diverticulitis CT abdomen demonstrated sigmoid diverticulitis Patient with intractable pain necessitating IV pain medication so patient unableto be discharged from ED Full liquid diet, advance diet as tolerated, pain control IV fluids Zosyn, avoiding Cipro/Flagyl combination given his alcohol use and suspect poor outcomes versus nonadherence of discharged on Flagyl Lipase is slightly elevated however symptoms, exam, imaging consistent with diverticulitis and not pancreatitis Tolerated FLD. Feeling better. DC with augmentin. Plan Chronic conditions: * coronary artery disease with stent 04/25/2023-Patient on aspirin and Plavix at home-Has intolerance to statin * Recent suspected TIA: ASA and clopidogrel * Alcohol use-Not very forthcoming with drinking history with in room but drinks 2 tall beers a day-Denies any history of significant withdrawal but again unclear if there is some underestimating of drinking and symptoms-CIWA monitoring with as needed Ativan coverage-Do not think patient needs started on phenobarb taper at this time * Hypertension-On home losartan #DVT ppx: Lovenox subcu Medications at Discharge Home Medications aspirin 81 mg tablet,delayed release (Adult Low Dose Aspirin) 81 mg PO QDAY [facility] 08/06/17 buspirone 5 mg tablet 5 mg PO BID 04/23/23 coenzyme Q10 100 mg capsule 100 mg PO DAILY 05/05/23 cetirizine 10 mg tablet 10 mg PO DAILY PRN allergy symptoms 05/20/23 clopidogrel 75 mg tablet (Plavix) 75 mg PO QDAY #93 tabs 05/20/23 losartan 50 mg tablet 50 mg PO DAILY 05/20/23 evolocumab 140 mg/mL subcutaneous pen injector (Repatha SureClick) 140 mg [id number] #2 mL 06/13/23 nitroglycerin 0.4 mg sublingual tablet (Nitrostat) 0.4 mg sublingual Q5-15M PRN CHEST PAIN #25 tabs 06/13/23 cholecalciferol (vitamin D3) 25 mcg (1,000 unit) capsule 1,000 unit PO BID 06/14/23 cobalamine combinations capsule cap PO DAILY 06/14/23 acetaminophen 500 mg capsule 1,000 mg (2 x 500 mg) PO Q8H PRN PRN fever or pain #30 caps 06/15/23 amoxicillin 875 mg-potassium clavulanate 125 mg tablet 1 tab PO Q12H #14 tabs 06/15/23 oxycodone 5 mg capsule 5 mg PO Q6H PRN pain 3 days #12 caps 06/15/23 Hospital Course Operations None Procedures None Summary of Care Provided Minutes Spent on Discharge: 32 Hospital Course: 57-year-old male presents with 1 day history of abdominal pain. Patient had a CAT scan that showed diverticulitis. Patient was started on piperacillin/tazobactam was here. Today, the patient is doing much better and did have liquid diet. States that he is passing some liquidy stools but overallfeeling better. Patient is otherwise stable and will be discharged home in stable condition. Patient advised to continue with antibiotics, which will be Augmentin, as well as a bland diet and advance as tolerated. Also advised the patient that, given his age he should have outpatient colonoscopy. Weight / BMI Weight Weight: 97.1 kg Body Mass Index (BMI) 29.0 ABG / Lab / Microbiology Data 06/15/23 05:45 06/15/23 05:45 Laboratory: Laboratory Results - last 24 hr 06/14/23 17:01: WBC 8.9, RBC 4.32 L, Hgb 14.1, Hct 43.3, MCV 100.2 H, MCH 32.6 H, MCHC 32.6, RDW Std Deviation 48.7 H, RDW Coeff of Leticia 13.1, Plt Count 251, MPV9.4, Immature Gran % (Auto) 0.500, Neut % (Auto) 83.8 H, Lymph % (Auto) 10.2 L, [place] % (Auto) 2.7, Eos % (Auto) 2.5, Baso % (Auto) 0.3, Absolute Neuts (auto) 7.4, Absolute Lymphs (auto) 0.90, Nucleated RBC % 0, Sodium 139, Potassium 4.4, Chloride 108 H, Carbon Dioxide 27.0, Anion Gap 4 L, BUN 13, Creatinine 1.09, Estim Creat Clear Calc 80.09, Est GFR (MDRD) Af Amer 89, Est GFR (MDRD) Non-Af 73, BUN/Creatinine Ratio 11.9, Glucose 119 H, Calcium 9.0, Total Bilirubin 0.60,AST 18, ALT 30, Alkaline Phosphatase 72, Total Protein 8.0, Albumin 3.2, Globulin 4.8 H, Albumin/Globulin Ratio 0.7 L, Lipase 235 H, Urine Color Yellow, Urine Clarity Clear, Urine pH 7.0, Ur Specific [place] 1.010, Urine Protein Negative, Urine Glucose (UA) Normal, Urine Ketones Negative, Urine Occult Blood Negative, Urine Nitrite Negative, Urine Bilirubin Negative, Urine Urobilinogen Normal, Ur Leukocyte Esterase Negative, Urine RBC 0 SEEN, Urine WBC 0 SEEN, Ur Squamous Epith Cells 0 SEEN, Urine Bacteria 0 SEEN, Urine Mucus 0 SEEN 06/15/23 05:45: WBC 7.0, RBC 3.60 L, Hgb 11.7 L, Hct 36.5 L, MCV 101.4 H, MCH 32.5 H, MCHC 32.1, RDW Std Deviation 50.3 H, RDW Coeff of Leticia 13.4, Plt Count 205, MPV 9.9, Immature Gran % (Auto) 0.400, Neut % (Auto) 81.6 H, Lymph % (Auto)10.5 L, [place] % (Auto) 4.6, Eos % (Auto) 2.6, Baso % (Auto) 0.3, Absolute Neuts (auto) 5.7, Absolute Lymphs (auto) 0.73 L, Nucleated RBC % 0, Sodium 138, Potassium 3.6, Chloride 109 H, Carbon Dioxide 22.0, Anion Gap 7, BUN 9, Creatinine 0.81, Estim Creat Clear Calc 107.78, Est GFR (MDRD) Af Amer 124, Est GFR (MDRD) Non-Af 103, BUN/Creatinine Ratio 11.1, Glucose 93, Calcium 7.9 L, Total Bilirubin 0.50, AST 12 L, ALT 22, Alkaline Phosphatase 61, Total Protein 6.8, Albumin 2.5 L, Globulin 4.3 H, Albumin/Globulin Ratio 0.6 L Radiography Diagnostic Testing: Radiology Impression Abdomen/Pelvis CT 06/14/23 16:48 IMPRESSION: Sigmoid diverticulitis without abscess or perforation. Electronically Signed: Kris White MD at 17:53 EDT , D/C Instructions Discharge Diet: Low fat / Low cholesterol ([place] diet, advance as tolerated.) Meaningful Use Info Meaningful Use Diagnoses (Choose all that apply): None applicable Discharge Plan Admission Admit Date/Time: 06/14/23 19:31 Primary Reason for Your Visit: Diverticulitis Attending Provider: Rommel Youssef Primary Care Provider: Sergei Henley Consulting Providers: Meliza Ramírez Instructions Additional Instructions / Restrictions: You had diverticulitis, which is infection of the colon. You are on antibioticsand please complete the antibiotics. If you have worsening abdominal pain, notify your physician or return to the emergency room for evaluation. For your diet, recommend just bland, boring diet, such as bananas, rice, applesauce and toast and then advance as tolerated. Given your age you should also have colonoscopy as outpatient. No urgency on the but over the coming several months would recommend following up with a contact lens curve grinder. Discharge Orders/Prescriptions Prescriptions: New amoxicillin-pot clavulanate 875-125 mg tablet 1 tab PO Q12H Qty: 14 0RF oxycodone 5 mg capsule 5 mg PO Q6H PRN (Reason: pain) 3 Days Qty: 12 0RF acetaminophen 500 mg capsule 1,000 mg PO Q8H PRN PRN (Reason: fever or pain) Qty: 30 0RF Continued aspirin [Adult Low Dose Aspirin] 81 mg tablet,delayed release (DR/EC) 81 mg PO QDAY cetirizine 10 mg tablet 10 mg PO DAILY PRN (Reason: allergy symptoms) clopidogrel [Plavix] 75 mg tablet 75 mg PO QDAY Qty: 93 3RF Rx Instructions: 300mg (4 pills) on day one followed by 75mg (1 pill) daily starting day two cobalamine combinations Capsule PO DAILY Patient Comments: 1000mg daily cholecalciferol (vitamin D3) 25 mcg (1,000 unit) capsule 1,000 unit PO BID buspirone 5 mg tablet 5 mg PO BID Hold Instructions: not taking Patient Comments: TAKE 1 TABLET BY MOUTH TWICE A DAY losartan 50 mg tablet 50 mg PO DAILY coenzyme Q10 100 mg capsule 100 mg PO DAILY Hold Instructions: Side effects Repatha SureClick 140 mg/mL pen injector 140 mg subcut Q2W Qty: 2 11RF Patient Comments: pt was just prescribed it, has not started taking it yet nitroglycerin [Nitrostat] 0.4 mg tablet, sublingual 0.4 mg SUBLINGUAL Q5-15M PRN (Reason: CHEST PAIN) Qty: 25 3RF Referrals / Follow Up: [facility] [Provider Group] - Within 3 Months Sergei Henley MD [Primary Care Provider] - Within 2 Weeks Disposition Disposition (needs filled in before D/C Order can be placed): Home, Self Care Charges/Coding Visit Charges Inpatient E&M: 33500 Disch Hosp >30min 06/15/23 1031 <Electronically signed by Rommel Youssef DO> Cosigner Signature (if applicable): CC: Dr. Sergei Henley MD; Dr. Rommel Youssef DO~ Signed [facility] Work Phone: Evaluation noteNo assessment information available [facility] Work Phone: Evaluation note* Diagnosis Onset Date Resolution Status Brain TIA acute Chest pain acute History of coronary artery disease acute [facility] Work Phone: Evaluation note* Diagnosis Onset Date Resolution Status Brain TIA acute Chest pain acute History of coronary artery disease acute NSTEMI (non-ST elevated myocardial infarction) acute Atherosclerotic heart diseas e of [place] coronary artery without angina pectoris chronic Essential hypertension chron ic HLD (hyperlipidemia) chronic [facility] Work Phone: Evaluation note* Diagnosis Onset Date Resolution Status Essential hypertension chron ic HLD (hyperlipidemia) chronic Brain TIA resolved Chest pain resolved NSTEMI (non-ST elevated myoc ardial infarction) resolved Essential hypertension chron ic HLD (hyperlipidemia) chronic Presence of stent in coronary artery April 25, 023 [facility] Work Phone: Evaluation note* Diagnosis Onset Date Resolution Status Essential hypertension chron ic HLD (hyperlipidemia) chronic Brain TIA resolved Chest pain resolved NSTEMI (non-ST elevated myoc ardial infarction) resolved Essential hypertension chron ic HLD (hyperlipidemia) chronic Presence of stent in coronary artery April 25, chronic Intractable abdominal pain a cute Sigmoid diverticulitis acute Essential hypertension chron ic Presence of stent in coronary artery April 25, [facility] Work Phone: Evaluation note* Diagnosis Onset Date Resolution Status HLD (hyperlipidemia) chronic Brain TIA resolved Chest pain resolved NSTEMI (non-ST elevated myocardial infarction) resolved HLD (hyperlipidemia) chronic Sigmoid diverticulitis acute Intractable abdominal pain r esolved [facility] Work Phone: Evaluation note* Diagnosis Onset Date Resolution Status Essential hypertension chron ic HLD (hyperlipidemia) chronic Sigmoid diverticulitis acute Essential hypertension chron ic Intractable abdominal pain r esolved GERD (gastroesophageal reflux disease) acute Sigmoid diverticulitis acute Myalgia acute Palpitation acute HLD (hyperlipidemia) chronic Presence of coronary angiopl asty implant and graft April 25, 2023 [facility] Work Phone: Evaluation note* Diagnosis Onset Date Resolution Status Sigmoid diverticulitis acute Essential hypertension chron ic Intractable abdominal pain r esolved GERD (gastroesophageal reflux disease) acute Sigmoid diverticulitis acute Myalgia acute Palpitation acute HLD (hyperlipidemia) chronic Presence of coronary angiopl asty implant and graft April 25, 2023 [facility] Work Phone: History and physical note Author Meliza Ramírez [facility] June 14, 2023 7:41pm Note Date/Time June 14, 2023 7 :41pm [facility] Medical Records Department [address] [place] [address] H&P Exam - Hospitalist 06/14/231930 MR#: [id number] Acct: [id number] Name: JOVANY MUÑIZ Rep #:[id number] : 1965 57 From: Meliza Ramírez MD PCP: Dr. Sergei Henley MD Status: REG ER Location: ED HPI - General General Date of Admission: 06/14/23 Date of Service: 06/14/23 Chief Complaint: Abdominal pain HPI Narrative JOVANY MUÑIZ, is a 57-year-old male history of hypertension, coronary artery disease with stent placement 2 months ago who presented to [facility] 06/14/2023 with abdominal pain x1 day. Due to his coronary artery disease he had previously been on a statin but due to abdominal pain and leg cramping he was off it for 2 weeks and they tried a new statin 5 days ago but hehad leg cramping and abdominal pain again which he stopped taking but pain is persisted, its primarily right lower quadrant but is somewhat generalized and hefeels he has some abdominal distention as well. Not passing gas and no bowel movement since yesterday. CT abdomen obtained and showed sigmoid diverticulitiswithout perforation. Patient required IV pain medication and was having intractable pain and was deemed patient cannot be discharged home due to need for pain control, hospitalist contacted for admission. Patient evaluated with with at bedside. Reports history as above, reports he is feeling quite bloated presently and last bowel movement was yesterday morning, chronically hassome loose stools but nothing different than usual, not feeling nauseous or vomiting at this time, primarily just has some generalized abdominal pain worse in the lower quadrants. Has been drinking water but has not been eating much food over this past day as he feels this worsens his symptoms. Had sweats last night but does not note of any fever. Denies any substance use, reports he drinks 2 beers daily and when clarifying he drinks 2 tall beers daily but patient not very forthcoming with drinking history with in room but denies any history of withdrawal and last up drinking for couple days when he had his heart attack in April and denied any withdrawal symptoms at that time. [facility], LAT[facility] Medical History 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/23) Essential hypertension History of coronary artery disease HLD (hyperlipidemia) Old myocardial infarction Presence of stent in coronary artery (04/25/23) Home Medications aspirin 81 mg tablet,delayed release (Adult Low Dose Aspirin) 81 mg PO QDAY [facility] 08/06/17 [History Last Taken 10/30/21] buspirone 5 mg tablet 5 mg PO BID 04/23/23 [History Last Taken Unknown] coenzyme Q10 100 mg capsule 100 mg PO DAILY 05/05/23 [History Last Taken Unknown] cetirizine 10 mg tablet 10 mg PO DAILY PRN 05/20/23 [History Last Taken Unknown] clopidogrel 75 mg tablet (Plavix) 75 mg PO QDAY #93 tabs 05/20/23 [Rx Last Taken Unknown] losartan 50 mg tablet 50 mg PO DAILY 05/20/23 [History Last Taken Unknown] evolocumab 140 mg/mL subcutaneous pen injector (Repatha SureClick) 140 mg [id number] #2 mL 06/13/23 [Rx Last Taken Unknown] nitroglycerin 0.4 mg sublingual tablet (Nitrostat) 0.4 mg sublingual Q5-15M PRN CHEST PAIN #25 tabs 06/13/23 [Rx Last Taken Unknown] Allergy/AdvReac Type Severity Reaction Status Date / Time No Known Allergies Allergy Verified 06/14/23 16:36 Family History Grandfather , age 76 CVA (cerebral vascular accident) Surgical History History of left heart catheterization (~12/2010) Presence of coronary angioplasty implant and graft (~06/19/10) Social History Smoking Status: Former smoker how long ago did patient quit smokin alcohol intake: current alcohol intake frequency: 0-2 drinks per day Alcohol type: beer substance use type: does not use caffeine: Yes Type: coffee Number of servings: 2 what type of physical activity do you participate in: none seatbelt use: sometimes do you feel safe at home: Yes ROS ROS Narrative General: Denies fever/chills but had some sweats yesterday HENT: Denies headache, denies stuffy nose, denies sore throat EYES: Denies changes in vision Resp: Denies cough, denies shortness of breath Cardiac: Denies chest pain GI: Diffuse abdominal pain worse in lower quadrants, denies nausea/vomiting : Denies changes in urination Extremity: Denies swelling MSK: Denies weakness Neuro: Denies any numbness/tingling Heme: Denies any bleeding or bruising Skin: Denies rashes Psychiatric: No complaints voiced Vital Signs Vital Signs Vital Signs: 06/14/23 16:36 06/14/23 17:16 Temperature 97.5 F L Temperature Source Temporal Pulse Rate 100 89 Respiratory Rate 20 H 18 Blood Pressure 133/96 H 131/93 H Blood Pressure Mean 108 105 Pulse Ox 98 96 Oxygen Delivery Method Room Air Room Air Weight Weight: 96.343 kg Body Mass Index (BMI) 28.8 Physical Exam Narrative General: Alert, oriented, no apparent distress HEENT: Atraumatic, normocephalic Eyes: Anicteric, normal conjunctiva, extraocular movements grossly intact Neck: Supple Respiratory: Clear to auscultation bilaterally, normal respiratory effort Cardiovascular: Regular rate and rhythm GI: Somewhat distended, tender primarily in lower quadrants without rebound or rigidity, some voluntary guarding with hands but did not demonstrate this when pushing with stethoscope Extremities: No edema Musculoskeletal: Moving all extremities Neuro: No overt focal neurological deficits Skin: No rashes appreciated Psych: Cooperative Results Lab / Micro Data 06/14/23 17:01 06/14/23 17:01 Labs: Laboratory Results - last 24 hr 06/14/23 17:01: WBC 8.9, RBC 4.32 L, Hgb 14.1, Hct 43.3, MCV 100.2 H, MCH 32.6 H, MCHC 32.6, RDW Std Deviation 48.7 H, RDW Coeff of Leticia 13.1, Plt Count 251, MPV9.4, Immature Gran % (Auto) 0.500, Neut % (Auto) 83.8 H, Lymph % (Auto) 10.2 L, [place] % (Auto) 2.7, Eos % (Auto) 2.5, Baso % (Auto) 0.3, Absolute Neuts (auto) 7.4, Absolute Lymphs (auto) 0.90, Nucleated RBC % 0, Sodium 139, Potassium 4.4, Chloride 108 H, Carbon Dioxide 27.0, Anion Gap 4 L, BUN 13, Creatinine 1.09, Estim Creat Clear Calc 80.09, Est GFR (MDRD) Af Amer 89, Est GFR (MDRD) Non-Af 73, BUN/Creatinine Ratio 11.9, Glucose 119 H, Calcium 9.0, Total Bilirubin 0.60,AST 18, ALT 30, Alkaline Phosphatase 72, Total Protein 8.0, Albumin 3.2, Globulin 4.8 H, Albumin/Globulin Ratio 0.7 L, Lipase 235 H, Urine Color Yellow, Urine Clarity Clear, Urine pH 7.0, Ur Specific Winston 1.010, Urine Protein Negative, Urine Glucose (UA) Normal, Urine Ketones Negative, Urine Occult Blood Negative, Urine Nitrite Negative, Urine Bilirubin Negative, Urine Urobilinogen Normal, Ur Leukocyte Esterase Negative, Urine RBC 0 SEEN, Urine WBC 0 SEEN, Ur Squamous Epith Cells 0 SEEN, Urine Bacteria 0 SEEN, Urine Mucus 0 SEEN Radiology Impression Abdomen/Pelvis CT 06/14/23 16:48 IMPRESSION: Sigmoid diverticulitis without abscess or perforation. Electronically Signed: Kris [facility] MD at 17:53 EDT , Assessment & Plan Assessment/Plan (1) Intractable abdominal pain: (2) Sigmoid diverticulitis: (3) Presence of stent in coronary artery: (4) Essential hypertension: PLAN: Plan #Abdominal pain secondary to sigmoid diverticulitis -CT abdomen demonstrated sigmoid diverticulitis -Patient with intractable pain necessitating IV pain medication so patient unable to be discharged from ED -Clear liquid diet, advance diet as tolerated, pain control -IV fluids -Zosyn, avoiding Cipro/Flagyl combination given his alcohol use and suspect pooroutcomes versus nonadherence of discharged on Flagyl -Lipase is slightly elevated however symptoms, exam, imaging consistent with diverticulitis and not pancreatitis #coronary artery disease with stent 04/25/2023 -Patient on aspirin and Plavix at home -Has intolerance to statin #Alcohol use -Not very forthcoming with drinking history with in room but drinks 2 tall beers a day -Denies any history of significant withdrawal but again unclear if there is someunderestimating of drinking and symptoms -WA monitoring with as needed Ativan coverage -Do not think patient needs started on phenobarb taper at this time #Hypertension -On home losartan #DVT ppx: Lovenox subcu Meliza Ramírez MD Time spent in the patient's overall evaluation,decision-making process, review of diagnostic data, adjustment of management, discussion with other providers, nursing nursing and ancillary staff involved in patient's care documentation, 56minutes Charges/Coding Visit Charges Inpatient E&M: 57533 Init Hosp L2 06/14/231940 <Electronically signed by Meliza Ramírez MD> Cosigner Signature (if applicable): CC: Dr. Sergei Henley MD; Dr. Meliza Ramírez MD~ Signed [facility] Work Phone: History and physical note Author Olegario Segal [facility] October 02, 2023 7:28am Note Date/Time October 02, 2023 7:28am [facility] Medical Records Department [address] [place] [id number] History & Physical Exam 10/02/23 0725 MR#: [id number] Acct: [id number] Name: JOVANY MUÑIZ Rep #:[id number] : 1965 58 From: Olegario Blackburn PCP: Dr. Sergei Henley MD Status: [facility] Location: [place] [address] History and Physical Date of Admission: 10/02/23 Date of Service: 07/17/23 MR#: [id number] Acct: [id number] Name: JOVANY MUÑIZ Rep #: [id number] : 1965 Provider: Dr. Olegario Segal MD Age/Sex: 57/M Location: [facility] Status: Signed Intake Vital Signs 06/14/2321:15 07/17/2308:17 Height 6 ft 6 ft Weight: 213 lb 2 oz BMI 28.9 BP 125/88 H Blood Pressure Location Rt brachial Position Sitting Respiration 18 Pulse 78 Pulse Source Monitor Temp 97.2 F L Temp Source Temporal Pulse Oximetry (%) 98 Oxygen Delivery Method room air Intake Visit Reasons: DIVERTICULITIS Chief Complaint: Diverticulitis Therapeutic Sales Specialist Required: No Is patient in pain?: No Allergies No Known Allergies Allergy (Verified 07/17/23 08:20) Medications aspirin 81 mg tablet,delayed release (Adult Low Dose Aspirin) 81 mg PO QDAY [facility] 08/06/17 [History Confirmed 07/17/23] coenzyme Q10 100 mg capsule 100 mg PO DAILY 05/05/23 [History Confirmed 07/17/23] cetirizine 10 mg tablet 10 mg PO DAILY PRN allergy symptoms 05/20/23 [History Confirmed 07/17/23] clopidogrel 75 mg tablet (Plavix) 75 mg PO QDAY #93 tabs 05/20/23 [Rx Confirmed 07/17/23] losartan 50 mg tablet 50 mg PO DAILY 05/20/23 [History Confirmed 07/17/23] evolocumab 140 mg/mL subcutaneous pen injector ([place]ro SureLeonardick) 140 mg [id number] #2 mL 06/13/23 [Rx Confirmed 07/17/23] nitroglycerin 0.4 mg sublingual tablet (Nitrostat) 0.4 mg sublingual Q5-15M PRN CHEST PAIN #25 tabs 06/13/23 [Rx Confirmed 07/17/23] cholecalciferol (vitamin D3) 25 mcg (1,000 unit) capsule 1,000 unit PO BID 06/14/23 [History Confirmed 07/17/23] acetaminophen 500 mg capsule 1,000 mg (2 x 500 mg) PO Q8H PRN PRN fever or pain #30 caps 06/15/23 [Rx Confirmed 07/17/23] vitamin B complex (B Complex-Vitamin B12 tablet) 1 tab PO DAILY 07/17/23 [History Confirmed 07/17/23] PFSH Medical History (Updated 07/17/23 @ 15:[address] Olegario Segal MD) 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/23) Essential hypertension History of coronary artery disease HLD (hyperlipidemia) Old myocardial infarction Presence of stent in coronary artery (04/25/23) Sigmoid diverticulitis Surgical History History of left heart catheterization (~12/2010) Presence of coronary angioplasty implant and graft (~06/19/10) Family History Grandfather , age 76 CVA (cerebral vascular accident) Social History Smoking Status: Former smoker how long ago did patient quit smokin alcohol intake: current alcohol intake frequency: 0-2 drinks per day Alcohol type: beer substance use type: does not use caffeine: Yes Type: coffee Number of servings: 2 what type of physical activity do you participate in: none seatbelt use: sometimes do you feel safe at home: Yes HPI HPI HPI: Patient is a 57-year-old male who presents for need to schedule diagnostic colonoscopy secondary to recent episode of diverticulitis. They are referred for surgical consultation from Dr. Henley. Patient has not had prior colonoscopy, but he has had 2 negative Cologuard tests. He confirms the EMR record that he was evaluated and admitted for a brief inpatient stay related to this diagnosis early last month. He shares that the pain just left this week. He shares that he may have had a slightly delayed presentation as he initially blamed his symptoms on adverse effects from statin therapy. He has a history ofmultiple coronary stents?the last of which were placed this past April. He says that he was loaded up on statins after the stents and figured that his lower abdominal pain was related to this medication change. He otherwise describes that he had very small bowel movements around the time of his flare but near constant cramping like he had to go. He denies any urinary changes. He confirms this was his first and only episode to date. He denies any associated fevers or chills. He shares that his big question around this diagnosis is why he has right-sided pain when he has been advised by others thathis pain should be left-sided. Mr. Muñiz generally describes his bowel habits as normal. They have approximately 3 per day (all in the morning) and spend roughly 1 minute on the toilet with only some significant straining. They have not noticed recent bleeding or dark stools. They do not regularly take fiber supplements, but he does share that he recently started taking enema supplement after he was convinced by an [facility] to trial this medication. He also shares that his reasoning for starting the medication included that it is his grand daughter's name. Patient has a family history of diverticulitis in his father. He denies any awareness of inflammatory bowel disease or colon cancer. The patient's weight is stable. The patient confirms that he is prescribed Plavix and has been on this medication for the last 15 years. He confirms that he has been off this medication for planned procedures, but suggest that he may be on this medicationindefinitely given his history. Relevant prior abdominal surgical history includes: None Patient does have a significant history of GERD and heartburn. He initially downplays this symptom, but then admits to episodes at least once per week wherehe uses Tums and then baking soda if the Tums are not effective. Lastly Mr. Lamas shares that he has a past history of tobacco smoking with at least 30 pack years. ROS General General: No weight change, appetite, fatigue, colon cancer, breast cancer or weakness HEENT HEENT: No difficulty swallowing, eye injury, eye surgery, swollen glands or hoarseness Endo Endocrine: No thyroid disease, diabetes mellitus, thyroid cancer, Hair loss, heat intolerance or cold intolerance Skin Skin: No rash or changing moles Breast Breast: No left breast lump, right breast lump, nipple discharge, breast pain, abnormal mammogram, abnormal US or breast enlargement Musc Musculoskeletal: No back problems, arthritis, rheumatoid arthritis, gout or joint pain Cardio Cardiovascular: Yes heart disease, high blood pressure, heart attack and heart stent; No murmur, pacemaker, atrial fibrillation, palpitations, shortness of breat withexertion or chest pain Psych Psychiatric: No depression, anxiety or hearing voices Resp Respiratory: No shortness of breath, No sleep apnea, No cough, No COPD, No asthma, No emphysema and No wheezing Gastro Gastrointestinal: Yes abdominal pain, No nausea or vomiting, Yes diarrhea, No constipation, No blood in stool, No acid reflux, No hemorrhoids, No ulcers, No gallbladder problem and No black,tarry stools Anthony Hematologic: Yes blood thinners, No blood disorders, No bleeding, No anemia and No blood clots Neuro Neurologic: No system reviewed and no additional complaints, except as documented, No as per HPI, No abnormal gait, No abnormal hearing, No abnormal movements, No abnormal speech, No behavioral changes, No burning sensations, No confusion, No convulsions, No disequilibrium, No dizziness, No localized weakness, No frequent falls, No headache(s), No lack of coordination, No loss ofvision, No memory loss, Yes numbness, No other visual disturbances, No radicularpain, No restless legs, No sensory deficit, No syncope, Yes tingling, No tremor(s), No weakness and No other Exam Const General: cooperative and comfortable Orientation: alert, awake and oriented x3 Resp Effort & Inspection: normal respiratory effort GI Other: No scars, soft, nondistended, minimally tender to palpation along the right lower quadrant?otherwise unremarkable Assessment and Plan Assessment and Plan (1) Sigmoid diverticulitis: Status: Acute Comment: This is a 57-year-old male who presents for recent hospital follow-up of management of uncomplicated diverticulitis. As confirmed with patient this represents his first episode of diverticulitis. He also confirms that he is no longer symptomatic as of this week. Overall his exam is consistent with this report. I discussed with him the general natural history of diverticulitis and suggested that prediction of future recurrences is challenging. I did share with him that his initial presentation as a uncomplicated diagnosis is a positive. I suggested that one of the better means of preventing a recurrence is to minimize experiences of constipation. I reviewed with him his CT imaging which explains why he experienced right?sided symptoms. Per this imaging he hasa redundant sigmoid colon and it was right at the turning point in his sigmoid colon where he had maximal inflammation. With all of this, I do agree that proceeding with a diagnostic colonoscopy is in order. I shared with him that occasionally colon cancer can masquerade as diverticulitis and that it is best that we proceed with a direct exam. He confirms understanding and wishes to proceed as recommended Plan: Plan will be to complete colonoscopy on first mutually agreeable date under local MAC. Pre-procedure prep (2-day) discussed and paper instructions provided. Patient is also made aware that he will need to have a city route driver with him the day of the procedure. We will need to obtain clearance from cardiology to hold his Plavix for 5 days pre-? procedure. Given the recency of his stents this may affect the scheduling. (2) GERD (gastroesophageal reflux disease): Status: Acute Comment: Patient is a 57-year-old, , male with a past history of tobacco use including a 30-year pack year history who has at least weekly experiences of gastroesophageal reflux disease and heartburn. Given these demographic featuresand this medical history, I have shared with Mr. Muñiz that we should consider possible Dean's screening EGD. After explanation he confirms an understanding of this rationale and agrees to proceed as recommended. Plan: Plan for concurrent EGD with above colonoscopy to perform screening for Dean's esophagus I have examined the patient the following changes are noted: Mr. Muñiz confirmsthat he has had complete resolution of his abdominal pain. His bowel habits have returned to normal. He shares that his reflux remains stable in frequency is approximately 1 episode per week. He also confirms that he has completed hisprep in anticipation of today's procedure and that his output is now clear. Lastly he confirms that he has held his scratch that Plavix for 6 days prior to today's procedure. Will now proceed to endoscopy suite for upper and lower endoscopy as discussed in greater detail above. 10/02/23 0728 <Electronically signed by Olegario Segal MD> Cosigner Signature (if applicable): CC: Dr. Sergei Henley MD; Dr. Olegario Segal MD~ Signed [facility] Work Phone: Reason for referral (narrative)No reason for referral information availableWToledo Hospital Work Phone: Chief Complaint and Reason for Visit Chief Complaint 1 y fu CHEST PAIN Reason for Visit Atherosclerotic hear t disease of [place] coronary artery without angina pectoris Essential hypertension HLD (hyperlipidemia) Presence of stent in coronary artery Chief Complaint 1 y fu CHEST PAIN CHEST PAIN CHEST PAIN Reason for Visit Atherosclerotic hear t disease of [place] coronary artery without angina pectoris Essential hypertension HLD (hyperlipidemia) Presence of stent in coronary artery Chest pain, atypical Chief Complaint CHEST PAIN, TIA Reason for Visit Brain TIA Chest pain History of coronary artery disease Chief Complaint CHEST PAIN, TIA CHEST PAIN, TIA CHEST PAIN, TIA CHEST PAIN, TIA CHEST PAIN, TIA Reason for Visit Brain TIA Chest pain History of coronary artery disease NSTEMI (non-ST elevated myocardial infarction) Atherosclerotic heart disease of [place] coronary artery without angina pectoris Essential hypertension HLD (hyperlipidemia) Chief Complaint CHEST PAIN, TIA CHEST PAIN, TIA CHEST PAIN, TIA CHEST PAIN, TIA CHEST PAIN, TIA S/P [facility] 04/25 Reason for Visit Essential hypertensi on HLD (hyperlipidemia) Brain TIA Chest pain NSTEMI (non-ST elevated myocardial infarction) Essential hypertension HLD (hyperlipidemia) Presence of stent in coronary artery Chief Complaint CHEST PAIN, TIA CHEST PAIN, TIA CHEST PAIN, TIA CHEST PAIN, TIA CHEST PAIN, TIA S/P [facility] 04/25 DIVERTICULITIS Reason for Visit Essential hypertensi on HLD (hyperlipidemia) Brain TIA Chest pain NSTEMI (non-ST elevated myocardial infarction) Essential hypertension HLD (hyperlipidemia) Presence of stent in coronary artery Intractable abdominal pain Sigmoid diverticulitis Essential hypertension Presence of stent in coronary artery Chief Complaint CHEST PAIN, TIA CHEST PAIN, TIA CHEST PAIN, TIA CHEST PAIN, TIA CHEST PAIN, TIA S/P [facility] 04/25 DIVERTICULITIS DIVERTICULITIS Reason for Visit Essential hypertensi on HLD (hyperlipidemia) Brain TIA Chest pain NSTEMI (non-ST elevated myocardial infarction) Essential hypertension HLD (hyperlipidemia) Presence of stent in coronary artery Intractable abdominal pain Sigmoid diverticulitis Essential hypertension Presence of stent in coronary artery Chief Complaint CHEST PAIN, TIA CHEST PAIN, TIA CHEST PAIN, TIA CHEST PAIN, TIA CHEST PAIN, TIA S/P [facility] 04/25 DIVERTICULITIS DIVERTICULITIS EORDER Reason for Visit HLD (hyperlipidemia) Brain TIA Chest pain NSTEMI (non-ST elevated myocardial infarction) HLD (hyperlipidemia) Sigmoid diverticulitis Intractable abdominal pain Chief Complaint S/P [facility] 04/25 DIVERTICULITIS DIVERTICULITIS EORDER DIVERTICULITIS 3 M FU Reason for Visit Essential hypertensi on HLD (hyperlipidemia) Sigmoid diverticulitis Essential hypertension Intractable abdominal pain GERD (gastroesophageal reflux disease) Sigmoid diverticulitis Myalgia Palpitation HLD (hyperlipidemia) Presence of coronary angioplasty implant and graft Chief Complaint DIVERTICULITIS DIVERTICULITIS EORDER DIVERTICULITIS 3 M FU Reason for Visit Sigmoid diverticulit is Essential hypertension Intractable abdominal pain GERD (gastroesophageal reflux disease) Sigmoid diverticulitis Myalgia Palpitation HLD (hyperlipidemia) Presence of coronary angioplasty implant and graft Chief Complaint Admit Date 1 y fu PREV PFM PT August 06, 2024 1:33pm CP, PALPITATIONS September 03, 2024 1 2:22am 48 HOUR HOLTER, PALPATIONS September 03, 2024 1:38am 48 HOUR HOLTER, PALPATIONS September 03, 2024 2:04pm PALP November 03, 2024 6:1 2am PALP November 03, 2024 6:0 5pm Reason for Visit Admit Date HLD (hyperlipidemia) August 06, 2024 1:33pm Presence of coronary angioplasty implant and graft August 06, 2024 1:33pm Advance Directives No Advanced Directives Records Found Advance Directive Response Recorded Date/ Time Living Will No October 30, 2021 7:09pm Power of Construction Engineering Manager No October 30 7:09pm Advance Directive Response Recorded Date/ Time Living Will Yes April 23, 2023 9:57pm Power of Construction Engineering Manager Yes April 9:57pm Name of Medical Power of Construction Engineering Manager Jesus Muñiz April 23, 2023 9:57pm Advance Directive Response Recorded Date/ Time Name of Medical Power of Construction Engineering Manager Ellie Muñiz April 24, 2023 12:15am Living Will Yes April 24, 2023 12:15am Power of Construction Engineering Manager Yes April 12:15am Advance Directive Response Recorded Date/ Time Living Will No June 14 5:16pm Power of Construction Engineering Manager No June 14, 2023 5:16pm Name of Medical Power of Construction Engineering Manager Ellie Muñiz April 24, 2023 12:15am Advance Directive Response Recorded Date/ Time Name of Medical Power of Construction Engineering Manager Ellie Muñiz June 14, 2023 8:15pm Living Will Yes June 14 8:15pm Power of Construction Engineering Manager Yes June 14, 2023 8:15pm Name of Medical Power of Construction Engineering Manager Ellie Muñiz April 23, 2023 11:15pm Advance Directive Response Recorded Date/ Time Name of Medical Power of Construction Engineering Manager Ellie Muñiz June 14, 2023 8:15pm Living Will Yes June 14 8:15pm Power of Construction Engineering Manager Yes June 14, 2023 8:15pm Advance Directive Response Recorded Date/ Time Name of Medical Power of Construction Engineering Manager Ellie Muñiz June 14, 2023 8:15pm Name of Medical Power of Construction Engineering Manager September 25, 2023 3:03pm Living Will Yes September 25, 024 3:03pm Power of Construction Engineering Manager Yes September 25, 2023 3:03pm Advance Directive Response Recorded Date/ Time Living Will Yes April 24, 2023 12:15am Do you have a Healthcare Pow er of Construction Engineering Manager? Yes April 24, 2023 12:15am Living Will Yes September 03 1:26am Do you have a Healthcare Pow er of Construction Engineering Manager? Yes September 03, 2024 1:26am Name of Medical Power of Construction Engineering Manager ELLIE MUÑIZ September 03, 2024 1:26am Summary Purpose Family History No Family History Records Found Additional Source Comments Goals (unrecognized section and content) Goals may be documented in a n alternate sectionGoals may be documented in an alternate sectionGoals may be documented in an alternate sectionGoals may be documented in an alternate sectionGoals may be documented in an alternate section Care Teams (unrecognized sec tion and content) Team Status: Active Member Role Status Dates Dr. Sergei Henley MD Family Provider Active Dr. Sergei Henley MD Primary Care Provider Activ e Team Status: Active Member Role Status Dates Dr. Sergei Henley MD Primary Care Provider Activ e Dr. Perez Dave DO Emergency Provider Active Dr. Ar Torres MD Admit Provider, Attending Pro vider Active Team Status: Active Member Role Status Dates Dr. Sergei Henley MD Primary Care Provider Activ e Dr. Jose Lockwood MD Attending Provider Active Team Status: Active Member Role Status Dates Dr. Sergei Henley MD Primary Care Provider Activ e Dr. Perez Dave DO Emergency Provider Active Dr. Ar Torres MD Admit Provider, Attending Provider, Other Provider Active Dr. Jose Lockwood MD Other Provider Active Dr. Rommel Youssef DO Other Provider Active Team Status: Active Member Role Status Dates Dr. Sergei Henley MD Primary Care Provider Activ e Dr. Perez Dave DO Emergency Provider Active Dr. Ar Torres MD Admit Provider, Other Provide r Active Dr. Jose Lockwood MD Other Provider Active Dr. Rommle Youssef DO Attending Provider, Other Provid er Active Team Status: Active Member Role Status Dates Dr. Sergei Henley MD Primary Care Provider Activ e Dr. Perez Dave DO Emergency Provider Active Dr. Ar Torres MD Admit Provider, Other Provide r Active Dr. Jose Lockwood MD Attending Provider, Other Provide r Active Dr. Rommel Youssef , Other Provider Active Team Status: Inactive Member Role Status Dates Dr. Sergei Henley MD Primary Care Provider Activ e Dr. Perez Dave DO Emergency Provider Active Dr. Ar Torres MD Admit Provider, Other Provide r Active Dr. Jose Lockwood MD Other Provider Active Dr. Rommel Youssef DO Attending Provider Active Team Status: Inactive Member Role Status Dates Dr. Sergei Henley MD Primary Care Provider, Refe rring Provider Active Mitchell Dubois BINDER ROLLER, BINDER ROLLER-C Attending Provider Active Team Status: Inactive Member Role Status Dates Dr. Sergei Henley MD Primary Care Provider, Atte nding Provider Active Team Status: Active Member Role Status Dates Dr. Sergei Henley MD Primary Care Provider Activ e Donta Swenson MD Emergency Provider Active Dr. Meliza Ramírez MD Admit Provider, Attending Provid er Active Team Status: Active Member Role Status Dates Dr. Sergei Henley MD Primary Care Provider Activ e Donta Swenson MD Emergency Provider Active Dr. Meliza Ramírez MD Admit Provider, Other Provider A ctive Dr. Rommel Youssef DO Attending Provider, Other Provid er Active Team Status: Inactive Member Role Status Dates Dr. Sergei Henley MD Primary Care Provider Activ e Donta Swenson MD Emergency Provider Active Dr. Meliza Ramírez MD Admit Provider, Other Provider A ctive Dr. Rommel Youssef DO Attending Provider Active Team Status: Inactive Member Role Status Dates Dr. Sergei Henley MD Primary Care Provider Activ e Mitchell Dubois BINDER ROLLER, BINDER ROLLER-C Attending Provider, Referring Pro vider Active Team Status: Inactive Member Role Status Dates Dr. Sergei Henley MD Primary Care Provider, Refe rring Provider Active Dr. Olegario Segal MD Attending Provider Active Team Status: Active Member Role Status Dates Dr. Sergei Henley MD Primary Care Provider Activ e Dr. Olegario Segal MD Attending Provide r, Referring Provider, Other Provider Active Team Status: Inactive Member Role Status Dates Dr. Sergei Henley MD Primary Care Provider Activ e Dr. Olegario Segal MD Attending Provider, Referring P rovider Active Team Status: Active Member Role Status Dates Dr. Eduard Henley MD Primary Care Provider Acti ve Team Status: Inactive Member Role Status Dates Dr. Eduard Henley MD Primary Care Provider Acti ve Start: August 06, 2024 End: August 06, 2024 Dr. Eduard Henley MD Referring Provider Active Start: August 06, 2024 End: August 06, 2024 Dr. Jose Lockwood MD Attending Provider Active S tart: August 06, 2024 End: August 06, 2024 Team Status: Inactive Member Role Status Dates Dr. Eduard Henley MD Primary Care Provider Acti ve Start: September 03, 2024 End: September 03, 2024 Dr. Jesus Romero DO Attending Provider Active Start: September 03, 2024 End: September 03, 2024 Dr. Jesus Romero DO Emergency Provider Active Start: September 03, 2024 End: September 03, 2024 Team Status: Inactive Member Role Status Dates Dr. Eduard Henley MD Primary Care Provider Acti ve Start: September 03, 2024 End: September 03, 2024 Dr. Eileen Ray MD Attending Provider Activ e Start: September 03, 2024 End: September 03, 2024 Dr. Eileen Ray MD Referring Provider Activ e Start: September 03, 2024 End: September 03, 2024 Team Status: Active Member Role Status Dates Dr. Eduard Henley MD Primary Care Provider Acti ve Start: September 03, 2024 Dr. Eileen Ray MD Attending Provider Activ e Start: September 03, 2024 Dr. Eileen Ray MD Referring Provider Activ e Start: September 03, 2024 Team Status: Inactive Member Role Status Dates Dr. Eduard Henley MD Primary Care Provider Acti ve Start: September 28, 2024 End: September 28, 2024 Dr. Eduard Henley MD Attending Provider Active Start: September 28, 2024 End: September 28, 2024 Dr. Eduard Henley MD Referring Provider Active Start: September 28, 2024 End: September 28, 2024 Team Status: Inactive Member Role Status Dates Dr. Eduard Henley MD Primary Care Provider Acti ve Start: November 03, 2024 End: November 03, 2024 Mitchell Dubois BINDER ROLLER, BINDER ROLLER-C Attending Provider Active S tart: November 03, 2024 End: November 03, 2024 Mitchell Dubios BINDER ROLLER, BINDER ROLLER-C Referring Provider Active S tart: November 03, 2024 End: November 03, 2024 Team Status: Active Member Role Status Dates Dr. Eduard Henley MD Primary Care Provider Acti ve Start: November 03, 2024 Mitchell Dubois BINDER ROLLER, BINDER ROLLER-C Referring Provider Active S tart: November 03, 2024 Mitchell Dubois BINDER ROLLER, BINDER ROLLER-C Other Provider Active Start : November 03, 2024 Dr. Jose Lockwood MD Attending Provider Active S tart: November 03, 2024 (unrecognized sect ion and content) No Status Records Found INFORMATION SOURCE (unrecogn ized section and content) DATE CREATED AUTHOR 11/10/2024 [facility] FOR RECORDS PERTAINING TO PATIENTS WHO ARE [...] BE BASED ON THE PRIMARY CLINICAL RECORDS. [facility] [employer] [facility]. provides no warranty or guarantee of the accuracy or completeness of information in this document.
[2025-01-22 15:06] VITALS: BP 132/90; PULSE 68; RESP 13; O2SAT 100
[2025-01-22 16:00] VITALS: BP 143/93; PULSE 74; RESP 12; O2SAT 99
[2025-01-22 16:30] LABS: Troponin T High Sens 2 HR < 6 ng/L (<=22)
[2025-01-22 17:00] VITALS: BP 133/88; PULSE 72; RESP 18; O2SAT 100
[2025-01-22 18:07] VITALS: BP 145/91
== END 2025-01-22 18:08 | disposition home or self-care (01) ==
PROVIDERS: Emergency Provider Emergency Medicine; PCP Family Medicine; Visit Provider Emergency Medicine
DX: R07.89 Other chest pain (principal); I10 Essential (primary) hypertension; I25.10 Atherosclerotic heart disease of native coronary artery without angina pectoris; I25.2 Old myocardial infarction; Z95.5 Presence of coronary angioplasty implant and graft; Z79.02 Long term (current) use of antithrombotics/antiplatelets; Z79.82 Long term (current) use of aspirin; Z79.899 Other long term (current) drug therapy; Z87.891 Personal history of nicotine dependence
CPT/HCPCS: 71045; 80048; 84484; 85025; 93005; 99284; A4216

== ENCOUNTER 2025-01-22 20:28 | Emergency (ER) | payer OTHER, SELFPAY ==
[2025-01-22 20:30] VITALS: BP 124/85; PULSE 100; RESP 18; TEMP 37.4; O2SAT 100; BMI 29.0
--- NOTE | 2025-01-22 20:45 | EX.ED.DYSGE1 ---
HPI History of Present Illness Chief Complaint: Allergic Reaction Informant: patient and spouse/S.O. Onset/Context/Timing Onset: Today Context: Sudden Onset Timing: Continuous Current Severity: Moderate Maximum Severity: Moderate Narrative Narrative: 59-year-old male history of CAD [place] stent. Seen earlier tonight for atypical back pain. Workup was negative. He was discharged home. When he got home around 6:37 he is from dinner. Shortly thereafter he start developing itching redness and hives. He said he is never had allergic reaction before. He was brought in by squad he reportedly gave him subcu epinephrine. He denies any tongue or lip swelling. No trouble breathing or wheezing. Prior similar symptoms: No Recent Illness/Hospitalization: No [facility] Medical History Wears partial dentures High cholesterol Heartburn Gastric reflux History of diverticulitis Former smoker History of heart attack History of echocardiogram History of stress test Hypertension Cardiology follow-up encounter Sigmoid diverticulitis History of coronary artery disease Presence of stent in coronary artery (04/25/23) Essential hypertension HLD (hyperlipidemia) Old myocardial infarction Atherosclerotic heart disease of [place] coronary artery without angina pectoris (04/25/23) Home Medications ?Medication ?Instructions ?Recorded ?Last Taken ?Type aspirin 81 mg tablet,delayed 81 mg PO QDAY [facility] 08/06/17 09/26/23 History release (Adult Low Dose Aspirin) cetirizine 10 mg tablet 10 mg PO DAILY PRN allergy symptoms 05/20/23 Unknown History nitroglycerin 0.4 mg sublingual 0.4 mg sublingual Q5-15M PRN CHEST 06/13/23 Unknown Rx tablet (Nitrostat) PAIN #25 tabs acetaminophen 500 mg capsule 1,000 mg (2 x 500 mg) PO Q8H PRN 06/15/23 10/01/23 Rx PRN fever or pain #30 caps clopidogrel 75 mg tablet (Plavix) 75 mg PO QDAY #90 tabs 07/20/24 Unknown Rx losartan 50 mg tablet 100 mg PO DAILY 08/06/24 Unknown History pantoprazole 40 mg tablet,delayed 20 mg PO DAILY 08/06/24 Unknown History release pitavastatin calcium 1 mg tablet 1 mg PO QDAY 08/06/24 Unknown History Allergy/AdvReac Type Severity Reaction Status Date / Time shrimp Allergy Severe Anaphylaxis Verified 01/22/25 20:30 Family History Grandfather , age 76 CVA (cerebral vascular accident) Surgical History History of coronary artery stent placement History of cardiac catheterization Presence of coronary angioplasty implant and graft (04/25/23) History of left heart catheterization (~12/2010) Social History Smoking Status: Former smoker how long ago did patient quit smokin alcohol intake: current alcohol intake frequency: 0-2 drinks per day Alcohol type: beer substance use type: does not use caffeine: Yes Type: coffee Number of servings: 2 what type of physical activity do you participate in: none seatbelt use: sometimes do you feel safe at home: Yes ROS ROS ED ROS Narrative Itching. Hives. Constitutional Constitutional ED: Denies chills or fever(s) Eyes Eyes: Denies blurry vision Cardiovascular Cardiovascular: Denies chest pain Respiratory/Chest Respiratory/Chest: Denies cough Gastrointestinal Gastrointestinal: Denies abdominal pain or nausea Genitourinary Genitourinary ED: Denies dysuria or hematuria Musculoskeletal Musculoskeletal: Denies arthralgias or back pain Integumentary Reports rash and other Details: Itching and hives. ; Denies abscess or Abrasions Neurologic Neurologic: Denies headache(s) Psychiatric Psychiatric: Denies anxiety Endocrine Endocrinology: Denies cold intolerance Hematologic/Lymphatic Hematologic/Lymphatic: Reports none Allergic/Immunologic Allergic/Immunologic ED: Denies mouth swelling, tongue swelling or urticaria EXAM Physical Exam Narrative Exam Narrative: 59-year-old male sitting upright in bed with at bedside. He is anxious. H EENT exam pupils round react to light. Moist mucous membranes. Tongue and lips are not swelling. No trouble breathing. No stridor or drooling. Neck nontender. Lungs clear. Heart regular rhythm rate about 100 no murmur. Chest wall and ribs nontender. He has a red rash consistent with hives. It does beena. Abdomen soft nontender. No peritoneal signs. Moving all 4 extremities. He has redness on his upper extremities to it also blanches. Back nontender. Neurologically he is awake alert. He is anxious. No focal motor deficits. Exam consistent with allergic reaction. Const Vital Signs: 01/22/25 20:30 01/22/25 20:59 01/22/25 21:30 Temperature 99.3 F H Temperature Source Temporal Pulse Rate 100 107 H 109 H Respiratory Rate 18 19 H 18 Blood Pressure 124/85 H 120/86 H 130/77 H Blood Pressure Mean 98 97 94 Pulse Ox 100 100 100 Oxygen Delivery Method Nasal Cannula Nasal Cannula Nasal Cannula Oxygen Flow Rate (L/min) 2 3 2 01/22/25 22:00 Temperature Temperature Source Pulse Rate 107 H Respiratory Rate 16 Blood Pressure 133/72 H Blood Pressure Mean 92 Pulse Ox 98 Oxygen Delivery Method Room Air Oxygen Flow Rate (L/min) Positive well nourished and well developed; Negative for cachectic, contractures or unkempt General Appearance ED: well developed; Negative for unkempt, cachectic, contractures, cyanotic, diaphoretic or pallor Nutritional Appearance: Negative for cachectic HEENT Reports moist mucous membranes Negative for trauma or tenderness Eyes PERRL and EOMs intact bilaterally Neck no lymphadenopathy, supple and no JVD Chest Wall inspection of chest normal and palpation of chest normal Resp normal respiratory effort and clear to auscultation bilaterally Cardio regular rate, regular rhythm, S1 normal heart sound, S2 normal heart sound and no murmurs GI normal to inspection, nondistended, normoactive bowel sounds, non-tender, non-distended and no masses Auscultation: normoactive bowel sounds Palpation: soft; Negative for tender, guarding, mass or rebound tenderness present Back/Spine no CVA tenderness Extremity normal to inspection Extremity Narrative: Rash consistent with allergic reaction. Red. Blanches. General Extremety ED: Negative for edema or tenderness General Extremity: Negative for edema Neuro oriented x3 and CN's II-XII intact bilaterally Sensorium / Orientation: alert; Negative for orientation impaired, lethargic or stuporous Motor Exam: strength 5/5 throughout Psych mental status grossly normal Appearance: Negative for unkempt Mood & Affect: anxious Skin No no rashes or lesions noted, no wounds and skin turgor normal Skin Narrative: Red. Raised. Consistent with generalized allergic reaction of hives. Blanches. General Skin Exam: Negative for jaundice or pallor Lesions: No lesion noted Rashes: rashes noted Trauma: Negative for abrasion MDM MDM MDM Narrative Medical decision making narrative: 59-year-old male seen earlier today for atypical chest and back pain. Presents now secondary to a generalized allergic reaction to possibly eating shrimp. Gave epinephrine. He still having the rash and itching. Will be given IV Benadryl and Solu-Medrol and observe. Repeat exam patient is doing much better at 10:12 PM. Rash is almost resolved. Hives have resolved. He is feeling much better. Be discharged. He was given Solu-Medrol earlier. He will use Benadryl as needed. He knows to avoid shellfish. History & Record Review Discussion w/independent historian: Patient and Family Additional record(s) reviewed:: Prior inpatient record, Prior outpatient record, Prior ED visit and Prior labs Discharge Plan Triage Chief Complaint: Allergic Reaction ED Provider: Robert Mercer Dx/Rx/DC Orders Clinical Impression: Allergic reaction, Hives Instructions: ED Food Allergy Prescriptions: No Action aspirin [Adult Low Dose Aspirin] 81 mg tablet,delayed release (DR/EC) 81 mg PO QDAY cetirizine 10 mg tablet 10 mg PO DAILY PRN (Reason: allergy symptoms) pantoprazole 40 mg tablet,delayed release (DR/EC) 20 mg PO DAILY Rx Instructions: Take one tablet by mouth daily pitavastatin calcium 1 mg tablet 1 mg PO QDAY acetaminophen 500 mg capsule 1,000 mg PO Q8H PRN PRN (Reason: fever or pain) Qty: 30 0RF losartan 50 mg tablet 100 mg PO DAILY nitroglycerin [Nitrostat] 0.4 mg tablet, sublingual 0.4 mg SUBLINGUAL Q5-15M PRN (Reason: CHEST PAIN) Qty: 25 3RF clopidogrel [Plavix] 75 mg tablet 75 mg PO QDAY Qty: 90 3RF Primary Care Provider: Eduard Henley Referrals: Eduard Henley MD [Primary Care Provider] - As Needed Activity Restrictions/Additional Instructions: Benadryl as needed for itching. Avoid shrimp or shellfish seems that you have an allergy to it. Follow-up with your doctor as needed. Print Language: Croatian Disposition Disposition: Home, Self Care
[2025-01-22 20:59] VITALS: BP 120/86; PULSE 107; RESP 19; O2SAT 100
[2025-01-22] MEDS: MethylPREDNISolone 125 MG/2 ML Vial IV (21:00)
--- OUTSIDE RECORDS SUMMARY | 2025-01-22 21:18 | XMS RPT_ITS | CCD ---
Author Organization [facility] CliniSyfl Care Team Providers Care It Manager Name Role Phone DeFinis, Harumi Y Unavailable Unavailable Slava ZZAUETA, Bhavani Pike Unavailable DeFinis, Harumi Y Unavailable Unavailable DeFinis, Harumi Y Unavailable Unavailable DeFinis, Harumi Y Unavailable Unavailable Dr. Sergei Henley Primary Care Provider Dr. Sergei Henley Referring Provider Troy RADIOLOGY TECHNICIAN, RADIOLOGY TECHNICIAN-Cliff Miranda Attending Provider Dr. Rommel Lieberman Emergency [...] Attending Provider Dr. Sergei Henley Referring Provider Sherly RADIOLOGY TECHNICIAN, RADIOLOGY TECHNICIAN-C Mitchell Harvey Attending Provider Dr. Sergei Henley Primary Care Provider Dr. Perez Dave Emergency Provider Dr. Ar Torres Admit Provider Dr. Ar Torres Attending Provider Dr. Ar Torres Other Provider Dr. Jose Lockwood Other Provider Dr. Rommel Youssef Other Provider Dr. Rommel Youssef Attending Provider Dr. Jose Lockwood Attending Provider Dr. Sergei Henley Referring Provider Roof RADIOLOGY TECHNICIAN, RADIOLOGY TECHNICIAN-C Mitchell Harvey Attending Provider MD Donta Swenson Emergency Provider Dr. Meliza Ramírez Admit Provider Dr. Meliza Ramírez Other Provider Dr. Sergei Henley Primary Care Provider Dr. Rommel Youssef Attending Provider Dr. Rommel Youssef Other Provider Dr. Olegario Segal Attending Provider Dr. Sergei Henley Primary Care Provider Dr. Sergei Henley Referring Provider Roof RADIOLOGY TECHNICIAN, RADIOLOGY TECHNICIAN-C Mitchell Harvey Attending Provider Dr. Olgeario Segal Referring Provider Dr. Olegario Segal Other Provider Dr. Eduard Henley MD Primary Care Provider Dr. Eduard Henley MD Referring Provider [phone] Dr. Jose Lockwood MD Attending Provider Dr. Jesus Romero DO Attending Provider Dr. Jesus Romero DO Emergency Provider Flor SY, Dr. Arellano Attending Provider Flor SY, Dr. Arellano Referring Provider Kale SY, Dr. Chapa Attending Provider [phone] Roof RADIOLOGY TECHNICIAN-C, Mitchell H Attending Provider Roof RADIOLOGY TECHNICIAN-C, Mitchell H Referring Provider [phone] Roof RADIOLOGY TECHNICIAN-C, Mitchell H Other Provider Kale, Eduard Primary Care Unavailable Akua Vang Attending Unavailable Rannic, Christalexer Referring Unavailable Ranney, Christopher Primary Care Unavailable Nagajothi, Nagapradee Referring Unavailabl e Nagacris, Kariadee Attending Unavailabl e Jose Lockwood Attending Unavailable Roof RADIOLOGY TECHNICIAN, Mitchell H Consulting Unavailable Roof RADIOLOGY TECHNICIAN, Mitchell H Referring Unavailable Ranney, Christopher Primary Care Unavailable Ranney, Christopher Primary Care Unavailable Mg Lewis Attending Unavailable Ranney, Christopher Referring Unavailable Charly Canales Attending Unavailable Ranney, Christopher Primary Care Unavailable Rannic, Christopher Referring Unavailable Jose Lockwood Attending Unavailable Ranney, Christopher Primary Care Unavailable Ranney, Christopher Referring Unavailable Ranney, Christopher Primary Care Unavailable Roof RADIOLOGY TECHNICIAN, Mitchell Harvey Attending Unavailable Roof RADIOLOGY TECHNICIAN, Mitchell H Referring Unavailable Ranney, Christopher Primary Care Unavailable Kale, Eduard Attending Unavailable Ranney, Christopher Referring Unavailable Ranney, Christopher Primary Care Unavailable Jseus Romero Attending Unavailable Nagajothi, Nagapradee Referring Unavailabl e Ranney, Christopher Primary Care Unavailable Nagacris, Nunoapradee Attending Unavailabl venu Henley MD, Dr. Chapa Primary Care Provider Dr. Eduard Henley MD Referring Provider Mandie SY, Dr. Garcia Attending Provider [phone] Mg Rico Attending Provider Ruslan SY, Dr. Jones Emergency Provider Medications Current Medications Medication Drug Class(es) Dates Sig (Normalized) Sig (Original) acetaminophen 500 mg oral capsule (6 sources) Start: 06-15-2023 take 2 capsules by [...] TABS One tablet by mouth daily ASPIRIN [id number] [facility] Start: 11-27-2011 take 1 tablet by kolton th once daily ASPIRIN 81 MG TABS One tablet by mouth daily ASPIRIN [id number] [facility] Start: 11-27-2011 take 1 tablet by kolton th once daily ASPIRIN EC 81 MG TBEC One tablet by mouth daily ASPIRIN [id number] Bhavani Ralph PA-C cetirizine hydrochloride 10 mg oral tablet (8 sources) Histamine-1 Receptor Antagonist Start: 05-20-2023 take [...] mg tablet Discontinued 75 mg PO daily 90 90 August 06, 2017 1:00am April 25, 2023 12:07pm Start: 11-27-2011 take 1 tablet by kolotn th once daily PLAVIX 75 MG TABS One tablet by mouth daily CLOPIDOGREL BISULFATE [id number] Elizabet M Avila 1 ml evolocumab 140 mg/ml auto-injector (4 sources) PCSK9 Inhibitor Start: 06-13-2023 Evolocumab (Repatha Sureclick) 140 mg/mL pen injector Active 140 MG SC every 2 weeks June 12, 2023 11:00pm On Hold: 09/11/2023- ? Side Effects losartan potassium 50 mg oral tablet (20 sources) Angiotensin 2 Receptor Robert Start: 08-06-2024 [...] 5 min up to 3 X NITROGLYCERIN [id number] Brain Whyte MD Start: 11-27-2011 NITROGLYCERIN 0.4 MG/HR PT24 1 tablet under tongue every 5 min up to 3 X NITROGLYCERIN 11881787859 Elizabet Avila pantoprazole 40 mg delayed release oral tablet (4 sources) Proton Pump Inhibitor Start: 10-08-2023 End: 08-06-2024 take 1 tablet by mouth once daily Pantoprazole 40 mg tablet,delayed release (DR/EC) Active 20 mg PO DAILY August 06, 2024 2:50pm Take one tablet by mouth daily pitavastatin calcium 1 mg oral tablet (2 sources) HMG-CoA Reductase Inhibitor Start: 08-06-2024 take 1 [...] One tablet by mouth twice daily AMOXICILLIN [id number] Latisha Zayas PAGodfrey amoxicillin 875 mg / clavulanate 125 mg oral tablet (6 sources) Penicillin-class Antibacterial Start: 06-15-2023 End: 07-17-2023 Amoxicillin-Pot Clavulanate 875-125 mg tablet Discontinued 1 {tbl} PO Q12H June 15, 2023 12:00am July 17, 2023 9:20am Start: 06-15-2023 End: 07-17-2023 take 1 tablet by mouth every twelve hours Amoxicillin-Pot Clavulanate Discontinued 1 TABLET PO Q12H June 14, 2023 11:00pm July 17, 2023 8:20am atorvastatin 80 mg oral tablet (9 sources) HMG-CoA Reductase Inhibitor Start: 04-25-2023 End: 05-05-2023 take 1 tablet by mouth at bedtime Atorvastatin 80 mg Tablet Discontinued 80 mg PO AT BEDTIME April 25, 2023 12:00am May 05, 2023 4:32pm On Hold: Myalgias, diarrhea busPIRone hydrochloride 5 mg oral tablet (10 sources) Start: 04-23-2023 End: 07-17-2023 take 1 tablet by mouth twice daily Buspirone 5 mg tablet Discontinued 5 mg PO TWICE A DAY April 23, 2023 12:00am July 17, 2023 9:20am cholecalciferol 0.025 mg oral capsule (7 sources) Vitamin D Start: 06-14-2023 End: 08-06-2024 take 1 capsule by mouth twice daily Cholecalciferol (Vitamin D3) 25 mcg (1,000 unit) capsule Discontinued 1000 U PO TWICE A DAY June 14, 2023 12:00am August 06, 2024 2:51pm clonazePAM 0.5 mg oral tablet (18 sources) Benzodiazepine Start: 08-06-2017 End: 07-28-2018 take 1 tablet by mouth twice daily Clonazepam 0.5 mg tablet Discontinued 0.5 mg PO TWICE A DAY 09 06August 06, 2017 1:00am July 28, 2018 9:30am Start: 11-27-2011 take 1 tablet by kolton three times daily as needed KLONOPIN 0.5 MG TABS One tablet by mouth three times daily as needed CLONAZEPAM [id number] Elizabet Avila Cobalamin Combinations capsule (1 source) Start: 06-14-2023 End: 07-17-2023 take 1 capsule by mouth once daily Cobalamin Combinations capsule Discontinued NMA PO DAILY June 14, 2023 12:00am July 17, 2023 9:21am Cobalamine Combinations (5 sources) Start: 06-14-2023 End: 07-17-2023 take 1 capsule by mouth once daily Cobalamine Combinations Discontinued CAP PO DAILY June 13, 2023 11:00pm July 17, 2023 8:21am Start: 06-14-2023 take 1 capsule by mo [facility] once daily Cobalamine Combinations Active CAP PO DAILY June 13, 2023 11:00pm Start: 06-14-2023 take 1 capsule by mo [facility] once daily Cobalamine Combinations Active CAP PO DAILY June 14, 2023 12:00am Cobalamine Combinations capsule (1 source) Start: 06-14-2023 End: 07-17-2023 take 1 capsule by mouth once daily Cobalamine Combinations capsule Discontinued NMA PO DAILY June 14, 2023 12:00am July 17, 2023 9:21am ezetimibe 10 mg oral tablet (18 sources) Dietary Cholesterol Absorption Inhibitor Start: 08-06-2017 End: 04-23-2023 take 1 tablet by mouth once daily Ezetimibe 10 mg tablet Discontinued 10 mg PO daily August 06, 2017 1:00am April 23, 2023 9:57pm On Hold: elevated LFT Start: 06-01-2012 take 1 tablet by kolton th once daily ZETIA 10 MG TABS One tablet by mouth daily EZETIMIBE [id number] Brain Whyte MD famotidine 20 mg oral tablet (5 sources) Histamine-2 Receptor Antagonist Start: 10-25-2013 take 1 tablet by mouth once daily FAMOTIDINE 20 MG TABS One tablet by mouth daily FAMOTIDINE 85678314712 Brain Whyte MD fish oil (10 sources) Start: 06-01-2012 End: 01-11-2013 take 1 tablet by mouth once daily FISH OIL CAPS One tablet by mouth daily OMEGA-3 FATTY ACIDS CAPS [id number] Bhavani Ralph PA-C Start: 06-01-2012 take 1 tablet by kolton th once daily FISH OIL CAPS One tablet by mouth daily OMEGA-3 FATTY ACIDS CAPS 31624275768 Brain Whyte MD Start: 06-01-2012 End: 01-11-2013 take 1 tablet by mouth once daily FISH OIL CAPS One tablet by mouth daily OMEGA-3 FATTY ACIDS CAPS [id number] Bhavani Ralph PA-C Start: 06-01-2012 take 1 tablet by kolton th once daily FISH OIL CAPS One tablet by mouth daily OMEGA-3 FATTY ACIDS CAPS 95430022610 Brain Whyte MD lisinopril 10 mg oral [...] TABS One tablet by mouth daily LISINOPRIL 59890428947 Brain Whyte MD Start: 11-28-2011 End: 01-11-2013 take 1 tablet by mouth once daily LISINOPRIL 10 MG TABS One tablet by mouth daily LISINOPRIL [id number] Bhavani Ralph PA-C Start: 11-27-2011 take 1 tablet by kolton th once daily LISINOPRIL 2.5 MG TABS One tablet by mouth daily LISINOPRIL 36130129498 Elizabet Avila loratadine 10 mg oral tablet [...] tablet by mouth daily as needed LORATADINE 64032819208 Brain Whyte MD Start: 11-27-2011 take 1 tablet by kolton th once daily as needed CLARITIN 10 MG CAPS One tablet by mouth daily as needed LORATADINE 61727907168 Brain Whyte MD oxyCODONE hydrochloride 5 mg oral capsule (6 sources) Opioid Agonist Start: 06-15-2023 End: 07-17-2023 take 1 capsule by mouth every six hours as needed for pain Oxycodone 5 mg capsule Discontinued 5 mg PO EVERY 6 HOURS as needed for pain 07 13June 15, 2023 July 17, 2023 9:21am pravastatin sodium 80 mg oral tablet (18 sources) HMG-CoA Reductase Inhibitor Start: 08-06-2017 End: 04-23-2023 take 1 tablet by mouth once daily Pravastatin 80 mg tablet Discontinued 80 mg PO daily 90 90 August 06, 2017 1:00am April 23, 2023 9:57pm On Hold: elevated LFT Start: 06-01-2012 take 1 tablet by kolton th at bedtime PRAVASTATIN SODIUM 80 MG TABS One tablet by mouth at bedtime. PRAVASTATIN SODIUM [id number] Brain Whyte MD raNITIdine 150 mg oral tablet (5 sources) Histamine-2 Receptor Antagonist Start: 06-01-2012 take 1 tablet by mouth twice daily RANITIDINE HCL 150 MG TABS One tablet by mouth twice daily RANITIDINE HCL [id number] Brain Whyte MD rosuvastatin calcium 5 mg oral tablet (18 sources) HMG-CoA Reductase Inhibitor Start: 10-02-2023 End: [...] 2023 2:43pm sildenafil 100 mg oral tablet (10 sources) Phosphodiesterase 5 Inhibitor Start: 04-23-2023 End: [...] One tablet by mouth at bedtime. SIMVASTATIN [id number] Elizabetpili Avila tadalafil 5 mg oral tablet (18 sources) Phosphodiesterase 5 Inhibitor Start: 08-06-2017 End: 01-26-2018 Tadalafil 5 mg tablet Discontinued 5 mg PO NEEDED as needed for erectile 30 August 06, 2017 1:00am January 26, 2018 8:38am Start: 06-01-2012 CIALIS 5 MG TA BS as directed TADALAFIL [id number] Brain Whyte MD ticagrelor 90 mg oral tablet (9 sources) Start: 04-25-2023 End: 05-20-2023 take 1 tablet by mouth twice daily Ticagrelor (Brilinta) 90 mg Tablet Discontinued 90 mg PO TWICE A DAY 60 April 25, 2023 12:00am May 20, 2023 2:39pm ubidecarenone 100 mg oral capsule (8 sources) Start: 05-05-2023 End: 09-11-2023 take 10 capsules by mouth once daily Coenzyme Q10 100 mg capsule Discontinued 100 mg PO DAILY May 05, 2023 12:00am September 11, 2023 9:36am Vitamin B Complex (B Complex-Vitamin B12) tablet (4 sources) Start: 07-17-2023 End: 08-06-2024 Vitamin B Complex (B Complex-Vitamin B12) tablet Discontinued 1 {tbl} PO DAILY July 17, 2023 1:00am August 06, 2024 2:51pm Start: 07-17-2023 take 1 tablet by kolton th once daily Vitamin B Complex (B Complex-Vitamin B12) tablet Active 1 TABLET PO DAILY July 17, 2023 12:00am Problems Active Problems Problem Classification Problem Date Documented Date Episodic/Chronic Abdominal pain (12 sources) Abdominal pain; Translations: [Unspecified abdominal pain] 06-14-2023 Episodic Acute myocardial infarction (19 sources) ST elevation (STEMI) myocardial infarction of unspecified site; Translations: [Myocardial infarction] 07-07-2010 Chronic Administrative/social admission (5 sources) Administrative reason for encounter; Translations: [Encounter for other administrative examinations] Onset: 11-09-2024 11-12-2023 Episodic Cardiac dysrhythmias (8 sources) Palpitations; Translations: [Palpitations] Onset: 09-22-2024 09-11-2023 Episodic Coronary atherosclerosis and other heart disease (20 sources) Coronary atherosclerosis; Translations: [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..] unspecified] Onset: 10-10-2024 Episodic Other circulatory disease (11 sources) H/O: heart disorder; Translations: [Personal history of other diseases of the circulatory system] 04-23-2023 Episodic Other circulatory disease (2 sources) Personal history of other diseases of the circulatory system; Translations: [Personal history of other diseases of circulatory system] 04-23-2023 Episodic Other connective tissue disease (4 sources) Muscle pain; Translations: [Myalgia, unspecified site] 09-11-2023 Episodic Other connective tissue disease (2 sources) Myalgia, unspecified site; Translations: [Myalgia and myositis, unspecified] 09-11-2023 Episodic Transient cerebral ischemia (16 sources) Transient cerebral ischemia; Translations: [Transient cerebral ischemic attack, unspecified] 04-23-2023 Chronic Unclassified (6 sources) Long-term drug therapy; Translations: [Long-term (current) use of other medications] Onset: 06-10-2012 Resolved: 05-03-2015 06-10-2012 Past or Other Problems Problem Classification Problem Date Documented Da te Episodic/Chronic Coronary atherosclerosis and other heart disease (20 sources) Coronary angioplasty status; Translations: [History of myocardial infarction] Onset: 06-11-2010 11-27-2011 Episodic Comment on above: PTCA with CONNIE to pro ximal 1st obtuse marginal artery & proximal to mid LCX 05/20, mid LAD 06/20 PTCA with CONNIE to pro ximal 1st obtuse marginal artery & proximal to mid LCX 05/20, mid LAD 06/20DES to mid LAD and proximal OM1 04/25/2023 Disorders of teeth and jaw (5 sources) Dental caries; Translations: [Dental caries, unspecified] Onset: 07-07-2010 07-07-2010 Episodic Other aftercare (9 sources) Long-term (current) use of other medications; Translations: [Other long term care social worker (current) drug therapy] Onset: 06-10-2012 Resolved: 05-03-2015 [...] Test Name Value Interpretation Reference Range Facility Absolute lymphocyte countOrd ered By: ED PROVIDER on 01-22-2025 Lymphocytes Auto (Unsp spec) [#/Vol] 1.12 10*3/uL 0.83-4.51 [facility] Absolute neutrophil countOrd ered By: ED PROVIDER on 01-22-2025 Neutrophils (Bld) [#/Vol] 3.3 10*3/uL 2.0-7.7 [facility] Anion gap in Serum or Plasma Ordered By: ED PROVIDER on 01-22-2025 Anion gap [Moles/Vol] 14 mmol/L 5-15 [facility] Automated lymphocyte count a s percentage of total leukocytesOrdered By: ED PROVIDER on 01-22-2025 Lymphocytes/100 WBC Auto (Unsp spec) 22.1 % 19-41 [facility] BUN/creatinine ratioOrdered By: ED PROVIDER on 01-22-2025 Urea nitrogen/Creatinine [Mass ratio] 11.0 mg/mg 10-20 [facility] Basophil percentageOrdered B y: ED PROVIDER on 01-22-2025 Basophils/100 WBC (Bld) 0.8 % 0-1 [facility] Carbon dioxide, total [Moles /volume] in Central venous bloodOrdered By: ED PROVIDER on 01-22-2025 CO2 [Moles/Vol] 21.7 mmol/L 21.0-32.0 [facility] Chloride assayOrdered By: ED PROVIDER on 01-22-2025 Chloride [Moles/Vol] 103 mmol/L 98-108 [facility] Eosinophil percentageOrdered By: ED PROVIDER on 01-22-2025 Eosinophils/100 WBC (Bld) 2.4 % 0-5 [facility] Erythrocyte distribution wid th ratioOrdered By: ED PROVIDER on 01-22-2025 Erythrocyte distribution width (RBC) [Ratio] 13.0 % 11.6-14.6 [facility] Erythrocyte distribution wid th standard deviationOrdered By: ED PROVIDER on 01-22-2025 Erythrocyte distribution width (RBC) [Ratio] 46.8 fl High 35.1-43.9 [facility] Glomerular filtration rate ( GFR) estimation/1.73 sq m using serum, plasma, or whole bOrdered By: ED PROVIDER on 01-22-2025 GFR/1.73 sq M.predicted among non-blacks MDRD (S/P/Bld) [Vol rate/Area] 76 mL/min/{1.73_m2} >60 [facility] Comment on above: mL/min/1.73m2 CKD-EP I Creatinine Equation (2020) Hematocrit Auto (Bld) [Volum e fraction]Ordered By: ED PROVIDER on 01-22-2025 Hematocrit (Bld) [Volume fraction] 43.5 % 40-54 [facility] Hemoglobin measurementOrdere d By: ED PROVIDER on 01-22-2025 Hemoglobin (Bld) [Mass/Vol] 14.9 g/dL 13.0-16.5 [facility] Immature granulocytes/100 WB C Auto (Bld)Ordered By: ED PROVIDER on 06-14-2025 Immature granulocytes/100 WBC (Bld) 0.400 % 0.0-0.9 [facility] Comment on above: IG% - Immature Granu locytes (promyelocytes, myelocytes and metamyelocytes) > 1% indicates that a LEFT SHIFT is Present. MCV (mean corpuscular volume ) determinationOrdered By: ED PROVIDER on 01-22-2025 MCV (RBC) [Entitic vol] 97.1 fL High 80-94 [facility] Mean corpuscular hemoglobin (MCH) determinationOrdered By: ED PROVIDER on 01-22-2025 MCH (RBC) [Entitic mass] 33.3 pg High 27.0-32.0 [facility] Mean corpuscular hemoglobin concentration (MCHC) determinationOrdered By: ED PROVIDER on 01-22-2025 MCHC (RBC) [Mass/Vol] 34.3 g/dL 32-36 [facility] Mean platelet volume determi nationOrdered By: ED PROVIDER on 01-22-2025 Platelet mean volume (Bld) [Entitic vol] 9.4 fL 6.2-12.0 [facility] Monocyte percentageOrdered B y: ED PROVIDER on 01-22-2025 Monocytes/100 WBC (Bld) 10.1 % High 0-10 [facility] Neutrophil percentageOrdered By: ED PROVIDER on 01-22-2025 Neutrophils/100 WBC (Bld) 64.2 % 47-70 [facility] Nucleated red blood cell per centageOrdered By: ED PROVIDER on 01-22-2025 Nucleated RBC/100 WBC (Bld) [Ratio] 0 % 0-5 [facility] Platelet countOrdered By: ED PROVIDER on 01-22-2025 Platelets (Bld) [#/Vol] 211 10*3/uL 150-450 [facility] Potassium measurement (mass/ volume)Ordered By: ED PROVIDER on 01-22-2025 Potassium (Unsp spec) [Mass/Vol] 4.8 mmol/L 3.3-5.1 [facility] Comment on above: Hemolysis present, R esults could be affected. RBC Auto (Bld) [#/Vol]Ordere d By: ED PROVIDER on 01-22-2025 RBC (Bld) [#/Vol] 4.48 10*6/uL Low 4.6-6.2 [facility] Serum creatinine measurement (mass/volume)Ordered By: ED PROVIDER on 01-22-2025 Creatinine [Mass/Vol] 1.11 mg/dL 0.70-1.20 [facility] Serum glucose measurement (m ass/volume)Ordered By: ED PROVIDER on 01-22-2025 Glucose [Mass/Vol] 97 mg/dL 70-99 [facility] Serum or plasma calcium randa urement (mass/volume)Ordered By: ED PROVIDER on 01-22-2025 Calcium [Mass/Vol] 9.5 mg/dL 7.6-11.0 [facility] Serum or plasma urea nitroge n measurement (mass/volume)Ordered By: ED PROVIDER on 01-22-2025 Urea nitrogen [Mass/Vol] 12 mg/dL 4-19 [facility] Sodium levelOrdered By: ED Madisyn LEIJA on 01-22-2025 Sodium [Moles/Vol] 139 mmol/L 133-145 [facility] Troponin T.cardiac [Mass/vol ume] in Serum or Plasma by High sensitivity methodOrdered By: Robert Mercer on 01-22-2025 Troponin T.cardiac High sensitivity method [Mass/Vol] < 6 ng/L <22 [facility] Comment on above: Hemolysis present, R esults could be affected. White blood cell (WBC) count Ordered By: ED PROVIDER on 01-22-2025 WBC (Bld) [#/Vol] 5.1 10*3/uL 4.4-11.0 [facility] Urgent Care Visit Reporton 0 11-09-2024 Urgent Care Visit Report [facility] [address], [address] [place] [address] OFFICE VISIT Date of Service: 11/09/24 MR#: [id number] Acct: [id number] Name: JOVANY MUÑIZ Rep #: [id number] : 1965 Provider: FANTA Driscoll Age/Sex: 59/M Location: [facility] Status: Signed Intake Vital Signs 09/03/24 00:23 [...] mg PO QDAY 08/06/24 10/27/24 His tory [facility] Medical History Wears partial dentures High cholesterol Heartburn Gastric reflux History of diverticulitis Former smoker History of heart attack History of echocardiogram History of stress test Hypertension Cardiology follow-up encounter Sigmoid diverticulitis History of coronary artery disease Presence of stent in coronary artery (04/25/23) Essential hypertension HLD (hyperlipidemia) Old myocardial 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 (04/25/23) Surgical [...] HPI Chief Complaint: STOMACH ISSUES Details: JOVANY MUÑIZ is a 59 M who presents to the office today for Office Procedures Physical Exam Coding PE Coding DOT PE: Yes Coding Level of Care Code No Charge Diagnoses Encounter for examination required by Department of 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) Z02.89 Assessment and Plan Assessment and Plan (1) Encounter for examination required by Department of 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): Status: Acute 11/09/24 0632 Date Mg [place] Signature: Date (if applicable) CC: Normal [facility] Cardiovascular stress test r eportOrdered By: Jose Lockwood on 11-03-2024 Study report [facility] [address] [place] [address] MR#: [id number] Acct: [id number] Name: JOVANY MUÑIZ Rep #: [id number] : 1965 59 From: Jose Lockwood MD Primary Care: Dr. Eduard Henley MD Status: REG CLI Referring Dr: Mitchell Dubois NP RADIOLOGY TECHNICIAN-C Sex: M C Stress Test Report Exercise [...] 11/03/241806 Date _ Jose Lockwood MD CC: RADIOLOGY TECHNICIAN-C Mitchell Dubois; Dr. Eduard Henley MD ~ Date Dictated: 11/03/241804 Date Transcribed: 11/03/241804 [place]: [place] Signed [facility] Work Phone: Stress Reporton 11-03-2024 Stress Report [facility] [address] [place] [address] MR#: [id number] Acct: [id number] Name: JOVANY MUÑZI Rep #: [id number] : 1965 59 From: Jose Lockwood MD Primary Care: Dr. Eduard Henley MD Status: REG CLI Referring Dr: Mitchell Dubois NP RADIOLOGY TECHNICIAN-C Sex: M C Stress Test Report Exercise [...] MD Date Dictated: 11/03/241804 Date Transcribed: 11/03/241804 [place]: [place] Signed Normal [facility] Vitamin D,25 Hydroxyon 09-30 Vitamin D 25-OH 35.3 ng/mL Normal [facility] Comment on above: Order Comment: Order Date: 09/28/24Order Info: [id number] - [id number] Info: [id number] - [id number] Result Comment: Mayte min D 25(OH) Status Range Deficiency <20 ng/mL (50nmol/L) Insufficiency 20 - 30 ng/mL (50 - 75 nmol/L) Sufficiency 30 - 100 ng/mL (75 - 250 nmol/L) Toxicity >100 ng/mL (>250 nmol/L) Performed By: #### M 100.678 #### [facility] [address] [place], [address] [id number] DOrdered By: Cliff Henley on 09-28-2024 Vitamin D 25-Hydroxy 35.3 ng/mL [facility] Comment on above: Vitamin D 25(OH) Sta tus Range Deficiency <20 ng/mL (50nmol/L) Insufficiency 20 - 30 ng/mL (50 - 75 nmol/L) Sufficiency 30 - 100 ng/mL (75 - 250 nmol/L) Toxicity >100 ng/mL (>250 nmol/L) Albumin to globulin ratioOrd ered By: Eduard Henley on 09-28-2024 Albumin/Globulin [Mass ratio] 0.8 {ratio} Low 0.9-2.4 [facility] Bilirubin, totalOrdered By: Eduard Henley on 09-28-2024 Bilirubin [Mass/Vol] 0.50 mg/dL 0.20-1.00 [facility] Comment on above: For patients on eltr ombopag therapy, use of Dimension [place] TBIL is not recommended. Blood urea nitrogen (BUN)/cr eatinine ratioOrdered By: Eduard Henley on 09-28-2024 Urea nitrogen/Creatinine [Mass ratio] 15.0 mg/mg 10-20 [facility] Carbon dioxide measurementOr dered By: Eduard Henley on 09-28-2024 CO2 [Moles/Vol] 28.0 mmol/L 21.0-32.0 [facility] Chloride measurementOrdered By: Eduard Henley on 09-28-2024 Chloride [Moles/Vol] 104 mmol/L 98-107 [facility] Comprehensive Metabolic Prof ilon 09-28-2024 Albumin [Mass/Vol] 3.7 g/dL Normal 3.2-5.0 [facility] Comment on above: Order Comment: Order Date: 09/28/24Order Info: 86-1 - CMPOrder Info: [id number] - LIPIDOrder Info: [id number] - PSA Performed By: #### M 100.678 #### [facility] [address] [place], [address] Albumin/Globulin [Mass ratio] 0.8 {ratio} Low 0.9-2.4 [facility] Comment on above: Order Comment: Order Date: 09/28/24Order Info: 86-1 - CMPOrder Info: [id number] - LIPIDOrder Info: [id number] - PSA Performed By: #### M 100.678 #### [facility] [address] [place], [address] ALK P 66 U/L Normal 45-117 [facility] Comment on above: Order Comment: Order Date: 09/28/24Order Info: 86-1 - CMPOrder Info: [id number] - LIPIDOrder Info: [id number] - PSA Performed By: #### M 100.678 #### [facility] [address] [place], [address] ALT [Catalytic activity/Vol] 38 U/L Normal 16-61 [facility] Comment on above: Order Comment: Order Date: 09/28/24Order Info: [id number] - CMPOrder Info: [id number] - LIPIDOrder Info: [id number] - PSA Performed By: #### M 100.678 #### [facility] [address] [place], [address] AST [Catalytic activity/Vol] 29 U/L Normal 15-37 [facility] Comment on above: Order Comment: Order Date: 09/28/24Order Info: 86-1 - CMPOrder Info: [id number] - LIPIDOrder Info: [id number] - PSA Performed By: #### M 100.678 #### [facility] [address] [place], [address] Bilirubin [Mass/Vol] 0.50 mg/dL Normal 0.20-1.00 [facility] Comment on above: Order Comment: Order Date: 09/28/24Order Info: 86-1 - CMPOrder Info: [id number] - LIPIDOrder Info: [id number] - PSA Result Comment: For patients on eltrombopag therapy, use of Dimension [place] TBIL is not recommended. Performed By: #### M 100.678 #### [facility] [address] [place], [address] BUN/CRE 15.0 RATIO Normal 10-20 [facility] Comment on above: Order Comment: Order Date: 09/28/24Order Info: 86-1 - CMPOrder Info: [id number] - LIPIDOrder Info: [id number] - PSA Performed By: #### M 100.678 #### [facility] [address] [place], [address] CA,Total 9.9 mg/dL Normal 8.5-10.1 [facility] Comment on above: Order Comment: Order Date: 09/28/24Order Info: [id number] - CMPOrder Info: [id number] - LIPIDOrder Info: [id number] - PSA Performed By: #### M 100.678 #### [facility] [address] [place], [address] Chloride [Moles/Vol] 104 mmol/L Normal 98-107 [facility] Comment on above: Order Comment: Order Date: 09/28/24Order Info: [id number] - CMPOrder Info: [id number] - LIPIDOrder Info: [id number] - PSA Performed By: #### M 100.678 #### [facility] [address] [place], [address] CO2 [Moles/Vol] 28.0 mmol/L Normal 21.0-32.0 [facility] Comment on above: Order Comment: Order Date: 09/28/24Order Info: 86-1 - CMPOrder Info: [id number] - LIPIDOrder Info: [id number] - PSA Performed By: #### M 100.678 #### [facility] [address] [place], [address] Creatinine [Mass/Vol] 1.20 mg/dL Normal 0.70-1.30 [facility] Comment on above: Order Comment: Order Date: 09/28/24Order Info: 86-1 - CMPOrder Info: [id number] - LIPIDOrder Info: [id number] - PSA Result Comment: The validity of the calculated GFR GFRAA in patients over 70 years has not been determined. Clinical correlation is essential. Performed By: #### M 100.678 #### [facility] [address] [place], [address] EST GFR - AA 79 mL/min Normal >60 [facility] Comment on above: Order Comment: Order Date: 09/28/24Order Info: [id number]- - CMPOrder Info: - LIPIDOrder Info: [id number] - PSA Result Comment: Afri can Swiss GFR Calc Performed By: #### M 100.678 #### [facility] [address] [place], [address] GAP 5 Normal 5-15 [facility] Comment on above: Order Comment: Order Date: 09/28/24Order Info: [id number]- - CMPOrder Info: - LIPIDOrder Info: [id number] - PSA Performed By: #### M 100.678 #### [facility] [address] [place], [address] GFR/1.73 sq M.predicted among non-blacks MDRD (S/P/Bld) [Vol rate/Area] 65 mL/min/{1.73_m2} Normal >60 [facility] Comment on above: Order Comment: Order Date: 09/28/24Order Info: 86-1 - CMPOrder Info: [id number] - LIPIDOrder Info: [id number] - PSA Result Comment: Non- GFR Calc Performed By: #### M 100.678 #### [facility] [address] [place], [address] Globulin (S) [Mass/Vol] 4.8 g/dL High 2.2-4.2 [facility] Comment on above: Order Comment: Order Date: 09/28/24Order Info: [id number] - CMPOrder Info: [id number] - LIPIDOrder Info: [id number] - PSA Performed By: #### M 100.678 #### [facility] [address] [place], [address] Glucose [Mass/Vol] 105 mg/dL Normal 74-106 [facility] Comment on above: Order Comment: Order Date: 09/28/24Order Info: [id number]- - CMPOrder Info: [id number] - LIPIDOrder Info: [id number] - PSA Result Comment: Fast ing Glucose result from 100 to 125 mg/dL suggests IMPAIRED HOMEOSTASIS per A.D.A. criteria. Performed By: #### M 100.678 #### [facility] [address] [place], [address] Potassium [Moles/Vol] 4.4 mmol/L Normal 3.5-5.1 [facility] Comment on above: Order Comment: Order Date: 09/28/24Order Info: 785- - CMPOrder Info: [id number] - LIPIDOrder Info: [id number] - PSA Performed By: #### M 100.678 #### [facility] [address] [place], [address] Sodium [Moles/Vol] 138 mmol/L Normal 136-145 [facility] Comment on above: Order Comment: Order Date: 09/28/24Order Info: [id number] - CMPOrder Info: [id number] - LIPIDOrder Info: [id number] - PSA Performed By: #### M 100.678 #### [facility] [address] [place], [address] T PROT 8.5 g/dL High 6.4-8.2 [facility] Comment on above: Order Comment: Order Date: 09/28/24Order Info: [id number] - CMPOrder Info: [id number] - LIPIDOrder Info: [id number] - PSA Performed By: #### M 100.678 #### [facility] [address] [place], [place], [address] Urea nitrogen [Mass/Vol] 18 mg/dL Normal 7-18 [facility] Comment on above: Order Comment: Order Date: 09/28/24Order Info: [id number] - CMPOrder Info: [id number] - LIPIDOrder Info: [id number] - PSA Performed By: #### M 100.678 #### [facility] [address] [place], [place], [address] Estimated glomerular filtrat ion rate (GFR) AmericanOrdered By: Eduard Henley on 09-28-2024 Estimated GFR (MDRD) Amer 79 mL/min >60 [facility] Comment on above: GFR Calc Glomerular filtration rate ( GFR) estimationOrdered By: Eduard Henley on 09-28-2024 Estimated GFR (MDRD) Non-Af Amer 65 mL/min >60 [facility] Comment on above: Non- GFR Calc GFR/1.73 sq M.predicted among non-blacks MDRD (S/P/Bld) [Vol rate/Area] 65 mL/min/{1.73_m2} >60 [facility] Comment on above: Non- GFR Calc Glucose measurementOrdered B y: Eduard Henley on 09-28-2024 Glucose [Mass/Vol] 105 mg/dL 74-106 [facility] Comment on above: Fasting Glucose resu lt from 100 to 125 mg/dL suggests IMPAIRED HOMEOSTASIS per A.D.A. criteria. High density lipoprotein (HD L) measurementOrdered By: Eduard Henley on 09-28-2024 Cholesterol in HDL [Mass/Vol] 81 mg/dL >40 [facility] Comment on above: The drugs N-Acetylcy steine and Metamizole may falsely depress this assay. Reference Range HDL <40 mg/dL Low HDL Cholesterol HDL >or= 60 mg/dL High HDL Cholesterol Laboratory - Chemistry and C hemistry - challengeOrdered By: Eduard Henley on 09-28-2024 AST [Catalytic activity/Vol] 29 U/L 15-37 [facility] Lipid Profileon 09-28-2024 Cholesterol [Mass/Vol] 245 mg/dL High 200 [facility] Comment on above: Order Comment: Order Date: 09/28/24Order Info: 07- - CMPOrder Info: [id number] - LIPIDOrder Info: [id number] - PSA Result Comment: <200 mg/dL Desirable 200-240 mg/dL Borderline >240 mg/dL High Risk Performed By: #### M 100.678 #### [facility] [address] [place], [address] Cholesterol in HDL [Mass/Vol] 81 mg/dL Normal [facility] Comment on above: Order Comment: Order Date: 09/28/24Order Info: [id number] - CMPOrder Info: [id number] - LIPIDOrder Info: [id number] - PSA Result Comment: The drugs N-Acetylcysteine and Metamizole may falsely depress this assay. Reference Range HDL <40 mg/dL Low HDL Cholesterol HDL >or= 60 mg/dL High HDL Cholesterol Performed By: #### M 100.678 #### [facility] [address] [place], [address] Cholesterol in LDL [Mass/Vol] 144 mg/dL High 0-130 [facility] Comment on above: Order Comment: Order Date: 09/28/24Order Info: 07-1 - CMPOrder Info: [id number] - LIPIDOrder Info: [id number] - PSA Performed By: #### M 100.678 #### [facility] [address] [place], [address] Cholesterol in VLDL [Mass/Vol] 20 mg/dL Normal 5-40 [facility] Comment on above: Order Comment: Order Date: 09/28/24Order Info: 07- - CMPOrder Info: [id number] - LIPIDOrder Info: [id number] - PSA Performed By: #### M 100.678 #### [facility] [address] [place], [address] Triglyceride [Mass/Vol] 101 mg/dL Normal [facility] Comment on above: Order Comment: Order Date: 09/28/24Order Info: 1 - CMPOrder Info: [id number] - LIPIDOrder Info: [id number] - PSA Result Comment: The drugs N-Acetylcysteine and Metamizole may falsely depress this assay. Serum Triglycerides Reference Interval Normal <150 mg/dL Borderline high 150 - 199 mg/dL High 200 - 499 mg/dL Very High > or = 500 mg/dL Performed By: #### M 100.678 #### [facility] [address] [place], [place], [address] Low density lipoprotein (LDL ) cholesterol measurementOrdered By: Eduard Henley on 09-28-2024 Cholesterol in LDL [Mass/Vol] 144 mg/dL High 0-130 [facility] PSA,Total - Annual Screenon 09-28-2024 PSA,TOT SCREEN 0.78 ng/mL Normal 0.00-4.00 [facility] Comment on above: Order Comment: Order Date: 09/28/24Order Info: 07 - CMPOrder Info: [id number] - LIPIDOrder Info: [id number] - PSA Result Comment: This test was performed using the TPSA assay method for the [employer] chemistry system. Values obtained with different assay methods cannot be used interchangably. When changing PSA assays in the course of monitoring a patient, additional sequential testing should be carried out to confirm baseline values. Performed By: #### M 100.678 #### [facility] [address] [facility] [address] [place], [place], [id number] Potassium measurementOrdered By: Eduard Henley on 09-28-2024 Potassium [Moles/Vol] 4.4 mmol/L 3.5-5.1 [facility] Screening prostate specific antigen (PSA) measurementOrdered By: Eduard Henley on 09-28-2024 Prostate Specific Antigen Screen 0.78 ng/mL 0.00-4.00 [facility] Comment on above: This test was perfor med using the TPSA assay method for the[employer] chemistry system. Values obtained with differentassay methods cannot be used interchangably.When changing PSA assays in the course of monitoring apatient, additional sequential testing should be carriedout to confirm baseline values. Serum anion gap measurementO rdered By: Eduard Henley on 09-28-2024 Anion gap [Moles/Vol] 5 mmol/L 5-15 [facility] Serum globulin measurementOr dered By: Eduard Henley on 09-28-2024 Globulin (S) [Mass/Vol] 4.8 g/dL High 2.2-4.2 [facility] Serum or plasma alanine pedraza otransferase (ALT) measurementOrdered By: Eduard Henley on 09-28-2024 ALT [Catalytic activity/Vol] 38 U/L 16-61 [facility] Serum or plasma albumin randa urement (mass/volume)Ordered By: Eduard Henley on 09-28-2024 Albumin [Mass/Vol] 3.7 g/dL 3.2-5.0 [facility] Serum or plasma alkaline saw sphatase measurementOrdered By: Eduard Henley on 09-28-2024 ALP [Catalytic activity/Vol] 66 U/L 45-117 [facility] Serum or plasma calcium randa urement (mass/volume)Ordered By: Eduard Henley on 09-28-2024 Calcium [Mass/Vol] 9.9 mg/dL 8.5-10.1 [facility] Serum or plasma cholesterol measurement (mass/volume)Ordered By: Eduard Henley on 09-28-2024 Cholesterol [Mass/Vol] 245 mg/dL High <200 [facility] Comment on above: <200 mg/dL Desirable 200-240 mg/dL Borderline >240 mg/dL High Risk Serum or plasma creatinine m easurement (mass/volume)Ordered By: Eduard Henley on 09-28-2024 Creatinine [Mass/Vol] 1.20 mg/dL 0.70-1.30 [facility] Comment on above: The validity of the calculated GFR & GFRAA in patients over 70 years has not been determined. Clinical correlation is essential. Serum or plasma urea nitroge n measurement (mass/volume)Ordered By: Eduard Henley on 09-28-2024 Urea nitrogen [Mass/Vol] 18 mg/dL 7-18 [facility] Sodium levelOrdered By: Rubina Henley on 09-28-2024 Sodium [Moles/Vol] 138 mmol/L 136-145 [facility] Total proteinOrdered By: Mukesh Henley on 09-28-2024 Protein [Mass/Vol] 8.5 g/dL High 6.4-8.2 [facility] Triglycerides measurementOrd ered By: Eduard Henley on 09-28-2024 Triglyceride [Mass/Vol] 101 mg/dL <199 [facility] Comment on above: The drugs N-Acetylcy steine and Metamizole may falsely depress this assay.Serum Triglycerides Reference Interval Normal <150 mg/dL Borderline high 150 - 199 mg/dL High 200 - 499 mg/dL Very High > or = 500 mg/dL Very low density lipoprotein (VLDL) cholesterol measurementOrdered By: Eduard Henley on 09-28-2024 Very low density lipoprotein (VLDL) cholesterol measurement 20 mg/dL 5-40 [facility] VLDL Cholesterol 20 mg/dL 5-40 [facility] Vitamin B12on 09-28-2024 Cobalamin (Vitamin B12) [Mass/Vol] 337 pg/mL Normal 211-911 [facility] Comment on above: Order Comment: Order Date: 09/28/24Order Info: [id number] - I40Orwke Info: [id number] - [id number] Performed By: #### M 100.678 #### [facility] [address] [facility] [address] [place], [place], [address] Vitamin B12 measurementOrder ed By: Eduard Henley on 09-28-2024 Cobalamin (Vitamin B12) [Mass/Vol] 337 pg/mL 211-911 [facility] 12 Lead EKGon 09-03-2024 12 Lead EKG [facility] [address] [place] [address] 12 Lead EKG 09/03/24 0023 MR#: [id number] Acct: [id number] Name: JOVANY MUÑIZ Rep #: [id number] : 1965 58 From: Eileen Ray MD [...] Abnormal ECG Confirmed by FLOR SY, GUANAKO ([id number]), research editor RUBI ROMERO ([id number]) on 09/07/2024 7:16:39 AM Referred By: TB Confirmed By: GUANAKO RAY MD 09/07/24 0716 Date Eileen Ray MD CC: Dr. Eduard Henley MD; Dr. Jesus Romero, Signed Normal [facility] Absolute neutrophil countOrd ered By: Jesus Romero on 09-03-2024 Neutrophils (Bld) [#/Vol] 3.1 10*3/uL 2.0-7.7 [facility] BNP (brain natriuretic pepti de measurement)Ordered By: Jesus Romero on 09-03-2024 Natriuretic peptide B (Bld) [Mass/Vol] 7.1 pg/mL 0-100 [facility] BNP,B-Type NATRIURETIC PEPTI Torrey 09-03-2024 Natriuretic peptide B (Bld) [Mass/Vol] 7.1 pg/mL Normal 0-100 [facility] Comment on above: Performed By: #### L 501.5200, L100.0100, L503.6620, L500.2500, L501.9520, L501.5425 #### [facility] [place], [address] Basic Metabolic Profile (BMP )on 09-03-2024 BUN/CRE 14.0 RATIO Normal 10-20 [facility] Comment on above: Order Comment: 1 Y Performed By: #### L 501.5200, L100.0100, L503.6620, L500.2500, L501.9520, L501.5425 #### [facility] [address] [place], [address] CA,Total 9.3 mg/dL Normal 8.5-10.1 [facility] Comment on above: Order Comment: 1 Y Performed By: #### L 501.5200, L100.0100, L503.6620, L500.2500, L501.9520, L501.5425 #### [facility] [address] [place], [address] Chloride [Moles/Vol] 104 mmol/L Normal 98-107 [facility] Comment on above: Order Comment: 1 Y Performed By: #### L 501.5200, L100.0100, L503.6620, L500.2500, L501.9520, L501.5425 #### [facility] [address] [place], [address] CO2 [Moles/Vol] 26.0 mmol/L Normal 21.0-32.0 [facility] Comment on above: Order Comment: 1 Y Performed By: #### L 501.5200, L100.0100, L503.6620, L500.2500, L501.9520, L501.5425 #### [facility] [address] [place], [address] Creatinine [Mass/Vol] 1.29 mg/dL Normal 0.70-1.30 [facility] Comment on above: Order Comment: 1 Y Result Comment: The validity of the calculated GFR GFRAA in patients over 70 years has not been determined. Clinical correlation is essential. Performed By: #### L 501.5200, L100.0100, L503.6620, L500.2500, L501.9520, L501.5425 #### [facility] [address] [place], [address] ECRCL 73.11 ml/min Normal [facility] Comment on above: Order Comment: 1 Y Performed By: #### L 501.5200, L100.0100, L503.6620, L500.2500, L501.9520, L501.5425 #### [facility] [address] [place], [address] EST GFR - AA 73 mL/min Normal >60 [facility] Comment on above: Order Comment: 1 Y Result Comment: Afri can Swiss GFR Calc Performed By: #### L 501.5200, L100.0100, L503.6620, L500.2500, L501.9520, L501.5425 #### [facility] [address] [place], [address] GAP 8 Normal 5-15 [facility] Comment on above: Order Comment: 1 Y Performed By: #### L 501.5200, L100.0100, L503.6620, L500.2500, L501.9520, L501.5425 #### [facility] [address] [place], [address] GFR/1.73 sq M.predicted among non-blacks MDRD (S/P/Bld) [Vol rate/Area] 60 mL/min/{1.73_m2} Normal >60 [facility] Comment on above: Order Comment: 1 Y Result Comment: Non- GFR Calc Performed By: #### L 501.5200, L100.0100, L503.6620, L500.2500, L501.9520, L501.5425 #### [facility] [address] [place], [address] Glucose [Mass/Vol] 102 mg/dL Normal 74-106 [facility] Comment on above: Order Comment: 1 Y Result Comment: Fast ing Glucose result from 100 to 125 mg/dL suggests IMPAIRED HOMEOSTASIS per A.D.A. criteria. Performed By: #### L 501.5200, L100.0100, L503.6620, L500.2500, L501.9520, L501.5425 #### [facility] [address] [place], [address] Potassium [Moles/Vol] 3.8 mmol/L Normal 3.5-5.1 [facility] Comment on above: Order Comment: 1 Y Result Comment: Slig ht Hemolysis, Result may be falsely increased. Performed By: #### L 501.5200, L100.0100, L503.6620, L500.2500, L501.9520, L501.5425 #### [facility] [address] [place], [address] Sodium [Moles/Vol] 138 mmol/L Normal 136-145 [facility] Comment on above: Order Comment: 1 Y Performed By: #### L 501.5200, L100.0100, L503.6620, L500.2500, L501.9520, L501.5425 #### [facility] [address] [place], [address] Urea nitrogen [Mass/Vol] 18 mg/dL Normal 7-18 [facility] Comment on above: Order Comment: 1 Y Performed By: #### L 501.5200, L100.0100, L503.6620, L500.2500, L501.9520, L501.5425 #### [facility] [address] [place], [address] Basophil percentageOrdered B y: Jesus Romero on 09-03-2024 Basophils/100 WBC (Bld) 1.2 % High 0-1 [facility] Blood urea nitrogen (BUN)/cr eatinine ratioOrdered By: Jesus Romero on 09-03-2024 Urea nitrogen/Creatinine [Mass ratio] 14.0 mg/mg 10- [facility] CBC W/Diff, Automatedon 08-12 Absolute Lymph 1.72 X10 3/uL Normal 0.83-4.51 [facility] Comment on above: Performed By: #### L 501.5200, L100.0100, L503.6620, L500.2500, L501.9520, L501.5425 #### [facility] [address] [place], [address] Absolute Neut 3.1 X10 3/uL Normal 2.0-7.7 [facility] Comment on above: Performed By: #### L 501.5200, L100.0100, L503.6620, L500.2500, L501.9520, L501.5425 #### [facility] [address] [place], [address] Basophils/100 WBC (Bld) 1.2 % High 0-1 [facility] Comment on above: Performed By: #### L 501.5200, L100.0100, L503.6620, L500.2500, L501.9520, L501.5425 #### [facility] [address] [place], [address] Eosinophils/100 WBC (Bld) 3.3 % Normal 0-5 [facility] Comment on above: Performed By: #### L 501.5200, L100.0100, L503.6620, L500.2500, L501.9520, L501.5425 #### [facility] [address] [place], [address] Erythrocyte distribution width (RBC) [Ratio] 13.2 % Normal 11.6-14.6 [facility] Comment on above: Performed By: #### L 501.5200, L100.0100, L503.6620, L500.2500, L501.9520, L501.5425 #### [facility] [address] [place], [address] Hematocrit (Bld) [Volume fraction] 39.8 % Low 40-54 [facility] Comment on above: Performed By: #### L 501.5200, L100.0100, L503.6620, L500.2500, L501.9520, L501.5425 #### [facility] [address] [place], [address] Hemoglobin (Bld) [Mass/Vol] 13.4 g/dL Normal 13.0-16.5 [facility] Comment on above: Performed By: #### L 501.5200, L100.0100, L503.6620, L500.2500, L501.9520, L501.5425 #### [facility] [address] [place], [address] IG% 0.500 Normal 0.0-0.9 [facility] Comment on above: Result Comment: IG% - Immature Granulocytes (promyelocytes, myelocytes and metamyelocytes) > 1% indicates that a LEFT SHIFT is Present. Performed By: #### L 501.5200, L100.0100, L503.6620, L500.2500, L501.9520, L501.5425 #### [facility] [address] [place], [address] Lymphocytes/100 WBC (Bld) 30.3 % Normal 19-41 [facility] Comment on above: Performed By: #### L 501.5200, L100.0100, L503.6620, L500.2500, L501.9520, L501.5425 #### [facility] [address] [place], [address] MCH (RBC) [Entitic mass] 33.0 pg High 27.0-32.0 [facility] Comment on above: Performed By: #### L 501.5200, L100.0100, L503.6620, L500.2500, L501.9520, L501.5425 #### [facility] [address] [place], [address] MCHC (RBC) [Mass/Vol] 33.7 g/dL Normal 32-36 [facility] Comment on above: Performed By: #### L 501.5200, L100.0100, L503.6620, L500.2500, L501.9520, L501.5425 #### [facility] [address] [place], [address] MCV (RBC) [Entitic vol] 98.0 fL High 80-94 [facility] Comment on above: Performed By: #### L 501.5200, L100.0100, L503.6620, L500.2500, L501.9520, L501.5425 #### [facility] [address] [place], [address] Monocytes/100 WBC (Bld) 10.9 % High 0-10 [facility] Comment on above: Performed By: #### L 501.5200, L100.0100, L503.6620, L500.2500, L501.9520, L501.5425 #### [facility] [address] [place], [address] Neutrophils/100 WBC (Bld) 53.8 % Normal 47-70 [facility] Comment on above: Performed By: #### L 501.5200, L100.0100, L503.6620, L500.2500, L501.9520, L501.5425 #### [facility] [address] [place], [address] Nucleated RBC (Bld) [#/Vol] 0 10*3/uL Normal 0-5 [facility] Comment on above: Performed By: #### L 501.5200, L100.0100, L503.6620, L500.2500, L501.9520, L501.5425 #### [facility] [address] [place], [address] Platelet mean volume (Bld) [Entitic vol] 10.0 fL Normal 6.2-12.0 [facility] Comment on above: Performed By: #### L 501.5200, L100.0100, L503.6620, L500.2500, L501.9520, L501.5425 #### [facility] [address] [place], [address] Platelets (Bld) [#/Vol] 236 10*3/uL Normal 150-450 [facility] Comment on above: Performed By: #### L 501.5200, L100.0100, L503.6620, L500.2500, L501.9520, L501.5425 #### [facility] [address] [place], [address] RBC (Bld) [#/Vol] 4.06 10*6/uL Low 4.6-6.2 [facility] Comment on above: Performed By: #### L 501.5200, L100.0100, L503.6620, L500.2500, L501.9520, L501.5425 #### [facility] [address] [place], [address] RDW SD 47.3 fl High 35.1-43.9 [facility] Comment on above: Performed By: #### L 501.5200, L100.0100, L503.6620, L500.2500, L501.9520, L501.5425 #### [facility] [address] [place], [address] WBC (Bld) [#/Vol] 5.7 10*3/uL Normal 4.4-11.0 [facility] Comment on above: Performed By: #### L 501.5200, L100.0100, L503.6620, L500.2500, L501.9520, L501.5425 #### [facility] [address] [place], [address] Carbon dioxide measurementOr dered By: Jesus Romero on 09-03-2024 CO2 [Moles/Vol] 26.0 mmol/L 21.0-32.0 [facility] Chest PA and Lateralon 09-03 Chest PA and Lateral [facility] Imaging Services [address] [place] [address] Chest PA and Lateral MR#: [id number] Acct: [id number] Name: JOVANY MUÑIZ Rep #: [id number] : 1965 M 58 From: Layne Suh MD PCP: Dr. Eduard Henley MD Status: REG ER Study: Chest PA and Lateral Date of Exam: 09/03/24 Exam# [id number] Ordering Dr: Jesus Romero DO -[id number] STUDY: X-RAY CHEST REASON FOR EXAM: [...] Eduard Henley MD; Dr. Jesus Romero DO [place] Farmer: Signed Normal [facility] Chloride measurementOrdered By: Jesus Romero on 09-03-2024 Chloride [Moles/Vol] 104 mmol/L 98-107 [facility] D-Dimer Quantitative (DVT/PE )on 09-03-2024 D-DIMER QUANT 0.44 FEU/ug/m Normal 0.27-0.49 [facility] Comment on above: Result Comment: NORM AL D-Dimer level (<0.50) indicates no DVT or PE. Performed By: #### L 300.8000 #### [facility] [address] [facility] [place], [address] D-dimer measurement for deep venous thrombosisOrdered By: Jesus Romero on 09-03-2024 D-Dimer Quantitative (PE/DVT) 0.44 FEU/ug/m 0.27-0.49 [facility] Comment on above: NORMAL D-Dimer level (<0.50) indicates no DVT or PE. Emergency Department Summary on 09-03-2024 Emergency Department Summary [facility] Medical Records Department [address] [place] [address] Emergency Department Summary 09/03/24 MR#: [id number] Acct: [id number] Name: JOVANY MUÑIZ Rep #: [id number] : 1965 58 From: Jesus Romero DO [...] strenuous. Patient states that he saw his manager target the day after Gisela and the checkup went well. 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 Normal [facility] Eosinophil percentageOrdered By: Jesus Romero on 09-03-2024 Eosinophils/100 WBC (Bld) 3.3 % 0-5 [facility] Erythrocyte distribution wid th ratioOrdered By: Jesus Romero on 09-03-2024 Erythrocyte distribution width (RBC) [Ratio] 13.2 % 11.6-14.6 [facility] Erythrocyte distribution wid th standard deviationOrdered By: Jesus Romero on 09-03-2024 Erythrocyte distribution width (RBC) [Entitic vol] 47.3 fL High 35.1-43.9 [facility] Estimated glomerular filtrat ion rate (GFR) AmericanOrdered By: Jesus Romero on 09-03-2024 Estimated GFR (MDRD) Amer 73 mL/min >60 [facility] Comment on above: GFR Calc Estimation of creatinine liudmila aranceOrdered By: Jesus Romero on 09-03-2024 Estimated Creatinine Clearance Calc 73.11 ml/min [facility] Glomerular filtration rate ( GFR) estimationOrdered By: Jesus Romero on 09-03-2024 Estimated GFR (MDRD) Non-Af Amer 60 mL/min >60 [facility] Comment on above: Non- GFR Calc Glucose measurementOrdered B y: Jesus Romero on 09-03-2024 Glucose [Mass/Vol] 102 mg/dL 74-106 [facility] Comment on above: Fasting Glucose resu lt from 100 to 125 mg/dL suggests IMPAIRED HOMEOSTASIS per A.D.A. criteria. Hematocrit Auto (Bld) [Volum e fraction]Ordered By: Jesus Romero on 09-03-2024 Hematocrit (Bld) [Volume fraction] 39.8 % Low 40-54 [facility] Hemoglobin measurementOrdere d By: Jesus Romero on 09-03-2024 Hemoglobin (Bld) [Mass/Vol] 13.4 g/dL 13.0-16.5 [facility] Immature granulocytes/100 WB C Auto (Bld)Ordered By: Jesus Romero on 09-03-2024 Immature granulocytes/100 WBC (Bld) 0.500 % 0.0-0.9 [facility] Comment on above: IG% - Immature Granu locytes (promyelocytes, myelocytes and metamyelocytes) > 1% indicates that a LEFT SHIFT is Present. Influenza virus A and B and SARS-CoV-2 (COVID-19) and Respiratory syncytial virus RNAOrdered By: Jesus Romero on 09-03-2024 SARS-CoV-2 (COVID-19) RNA LINDSAY+probe Ql (Unsp spec) [facility] L501.4020on 09-03-2024 TROPONIN-I HS 6 pg/mL Normal 3.0-78.0 [facility] Comment on above: Order Comment: 2 Result Comment: Plea se Note: New Test Units and Gender Specific Reference Ranges. For more information see Policy Stat Procedure [place] High Sensitivity Troponin (TNIH) and attachments. Performed By: #### M 100.678 #### [facility] [address] [place], [address] L501.5425on 09-03-2024 TROPONIN-I HS 5 pg/mL Normal 3.0-78.0 [facility] Comment on above: Order Comment: 1 Y Result Comment: Plea se Note: New Test Units and Gender Specific Reference Ranges. For more information see Policy Stat Procedure [place] High Sensitivity Troponin (TNIH) and attachments. Performed By: #### L 501.5200, L100.0100, L503.6620, L500.2500, L501.9520, L501.5425 #### [facility] [address] [place], [address] Lymphocytes Auto (Unsp spec) [#/Vol]Ordered By: Jesus Romero on 09-03-2024 Lymphocytes (Bld) [#/Vol] 1.72 10*3/uL 0.83-4.51 [facility] Lymphocytes/100 WBC Auto (Un sp spec)Ordered By: Jesus Romero on 09-03-2024 Lymphocytes/100 WBC (Bld) 30.3 % 19-41 [facility] M100.678on 09-03-2024 M100.678 Pending SARS-CoV-2 (COVID 19) Negative INFLUENZA A Negative INFLUENZA B Negative RSV PCR Negative Normal [facility] Comment on above: Performed By: #### M 100.678 #### [facility] [address] [place], [address] MCV (mean corpuscular volume ) determinationOrdered By: Jesus Romero on 09-03-2024 MCV (RBC) [Entitic vol] 98.0 fL High 80-94 [facility] Magnesiumon 09-03-2024 Magnesium [Mass/Vol] 2.4 mg/dL Normal 1.6-2.6 [facility] Comment on above: Order Comment: 1 Y Result Comment: Slig ht Hemolysis, Result may be falsely increased. Performed By: #### L 501.5200, L100.0100, L503.6620, L500.2500, L501.9520, L501.5425 #### [facility] [address] [place], [address] Magnesium measurementOrdered By: Jesus Romero on 09-03-2024 Magnesium [Mass/Vol] 2.4 mg/dL 1.6-2.6 [facility] Comment on above: Slight Hemolysis, Re sult may be falsely increased. Mean corpuscular hemoglobin (MCH) determinationOrdered By: Jesus Romero on 09-03-2024 MCH (RBC) [Entitic mass] 33.0 pg High 27.0-32.0 [facility] Mean corpuscular hemoglobin concentration (MCHC) determinationOrdered By: Jesus Romero on 09-03-2024 MCHC (RBC) [Mass/Vol] 33.7 g/dL 32-36 [facility] Mean platelet volume determi nationOrdered By: Jesus Romero on 09-03-2024 Platelet mean volume (Bld) [Entitic vol] 10.0 fL 6.2-12.0 [facility] Monocyte percentageOrdered B y: Jesus Rmoero on 09-03-2024 Monocytes/100 WBC (Bld) 10.9 % High 0-10 [facility] Neutrophil percentageOrdered By: Jesus Romero on 09-03-2024 Neutrophils/100 WBC (Bld) 53.8 % 47-70 [facility] Nucleated red blood cell per centageOrdered By: Jesus Romero on 09-03-2024 Nucleated RBC/100 WBC (Bld) [Ratio] 0 % 0-5 [facility] Platelet countOrdered By: Imtiaz Romero on 09-03-2024 Platelets (Bld) [#/Vol] 236 10*3/uL 150-450 [facility] Potassium measurementOrdered By: Jesus Romero on 09-03-2024 Potassium [Moles/Vol] 3.8 mmol/L 3.5-5.1 [facility] Comment on above: Slight Hemolysis, Re sult may be falsely increased. RBC Auto (Bld) [#/Vol]Ordere d By: Jesus Romero on 09-03-2024 RBC (Bld) [#/Vol] 4.06 10*6/uL Low 4.6-6.2 [facility] Serum anion gap measurementO rdered By: Jesus Romero on 09-03-2024 Anion gap [Moles/Vol] 8 mmol/L 5-15 [facility] Serum or plasma calcium randa urement (mass/volume)Ordered By: Jesus Romero on 09-03-2024 Calcium [Mass/Vol] 9.3 mg/dL 8.5-10.1 [facility] Serum or plasma creatinine m easurement (mass/volume)Ordered By: Jesus Romero on 09-03-2024 Creatinine [Mass/Vol] 1.29 mg/dL 0.70-1.30 [facility] Comment on above: The validity of the calculated GFR & GFRAA in patients over 70 years has not been determined. Clinical correlation is essential. Serum or plasma urea nitroge n measurement (mass/volume)Ordered By: Jesus Romero on 09-03-2024 Urea nitrogen [Mass/Vol] 18 mg/dL 7-18 [facility] Sodium levelOrdered By: Amanda Romero on 09-03-2024 Sodium [Moles/Vol] 138 mmol/L 136-145 [facility] TSH QnOrdered By: Jesus hussein on 09-03-2024 Thyroid Stimulating Hormone (TSH) 2.110 uIU/mL 0.358-3.740 [facility] Thyroid Stim Hormone (TSH)on 09-03-2024 TSH 2.110 uIU/mL Normal 0.358-3.740 [facility] Comment on above: Order Comment: 1 Y Performed By: #### L 501.5200, L100.0100, L503.6620, L500.2500, L501.9520, L501.5425 #### [facility] [address] [place], [address] Troponin IOrdered By: Jesusjovita Romero on 09-03-2024 Troponin I High Sensitivity 6 pg/mL 3.0-78.0 [facility] Comment on above: Please Note: New Joan t Units and Gender Specific Reference Ranges. For more information see Policy Stat Procedure [place] High Sensitivity Troponin (TNIH) and attachments. White blood cell (WBC) count Ordered By: Jesus Romero on 09-03-2024 WBC (Bld) [#/Vol] 5.7 10*3/uL 4.4-11.0 [facility] Cardiology Visit Reporton Cardiology Visit Report [facility] [address] [place] [address] OFFICE VISIT Date of Service: 08/06/24 MR#: [id number] Acct: [id number] Name: JOVANY MUÑIZ Rep #: [id number] : 1965 Provider: Dr. Jose Lockwood MD Age/Sex: 58/M Location: [facility] Status: Signed HPI HPI History of Present Illness Details: This is a 58-year-old white male who presents today for outpatient cardiovascular follow-up regarding a history of underlying CAD, PCI, hyperlipidemia, and hypertension. 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 Normal [facility] Office Visit Reporton 2023 Office Visit Report [facility] [address] [place] [address] OFFICE VISIT Date of Service: 05/18/24 MR#: [id number] Acct: [id number] Patient: JOVANY MUÑIZ Rep #: [id number] : 1965 Provider: EUGENIA Costello Age/Sex: 58/M Location: [facility] Status: Signed Intake Vital Signs 10/02/23 06:44 05/18/24 12:31 05/18/24 12:50 Height 6 ft 6 ft Intake Visit Reasons: STOMACH ISSUES Chief Complaint: STOMACH ISSUES Ethnoarchaeology Professor Required: No Accompanied by: Self Is patient in pain?: Yes Allergies No Known Allergies Allergy (Verified 05/18/24 13:04) Medications ???Medication ???Instructions ???Recorded ???Confirmed ???Type aspirin 81 mg tablet,delayed 81 mg PO QDAY [facility] 08/06/17 05/18/24 History release (Adult Low Dose [...] sent patient to hospital for further evaluation. 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 Assessment and Plan Assessment and Plan Patient Instructions: Patient advised by front end developer javascript html css staff to proceed to ER for evaluation. No exam completed at this office. . 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 Chief Complaint: DOT physical Allergies No Known Allergies Allergy (Verified 10/02/23 06:43) [facility] Medical History (Updated 11/12/23 @ 12:35 by FANTA Rice) 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 Chloride [Moles/Vol] 104 mmol/L 98-107 [facility] Glucose [Mass/Vol] 109 mg/dL 74-106 [facility] Comment on above: Fasting Glucose resu lt from 100 to 125 mg/dL suggests IMPAIRED HOMEOSTASIS per A.D.A. criteria. Hemoglobin (Bld) [Mass/Vol] 15.4 g/dL 13.0-16.5 [facility] Potassium [Moles/Vol] 4.6 mmol/L 3.5-5.1 [facility] Protein [Mass/Vol] 8.0 g/dL 6.4-8.2 [facility] Sodium [Moles/Vol] 133 mmol/L 136-145 [facility] WBC (Bld) [#/Vol] 5.9 10*3/uL 4.4-11.0 [facility] Determination of erythrocyte mean corpuscular volume (MCV)Ordered By: Carliat Velasquez on 09-10-2023 MCV (RBC) [Entitic vol] 97.1 fL 80-94 [facility] Erythrocyte distribution wid th ratioOrdered By: Carlita Ron on 09-10-2023 Erythrocyte distribution width (RBC) [Ratio] 13.3 % 11.6-14.6 [facility] Erythrocyte distribution wid th standard deviationOrdered By: [facility] on 09-10-2023 Erythrocyte distribution width (RBC) [Entitic vol] 47.8 fL 35.1-43.9 [facility] Hematocrit Auto (Bld) [Volum e fraction]Ordered By: Carlita Ron on 09-10-2023 Hematocrit (Bld) [Volume fraction] 46.5 % 40-54 [facility] - Chemistry and C hemistry - challengeOrdered By: Carlita Velasquez on 09-10-2023 Albumin/Globulin [Mass ratio] 0.9 {ratio} 0.9-2.4 [facility] ALP [Catalytic activity/Vol] 63 U/L 45-117 [facility] ALT [Catalytic activity/Vol] 46 U/L 16-61 [facility] CO2 [Moles/Vol] 25.0 mmol/L 21.0-32.0 [facility] Cobalamin (Vitamin B12) [Mass/Vol] 438 pg/mL 211-911 [facility] Globulin (S) [Mass/Vol] 4.3 g/dL 2.2-4.2 [facility] Urea nitrogen/Creatinine [Mass ratio] 20.5 mg/mg 10-20 [facility] - Hematology and Cell countsOrdered By: Carlita Velasquez on 09-10-2023 MCH (RBC) [Entitic mass] 32.2 pg 27.0-32.0 [facility] MCHC (RBC) [Mass/Vol] 33.1 g/dL 32-36 [facility] Platelets (Bld) [#/Vol] 260 10*3/uL 150-450 [facility] No Panel InformationOrdered By: Carlita Velasquez on 09-10-2023 Estimated GFR (MDRD) Amer 107 mL/min >60 [facility] Comment on above: GFR Calc Estimated GFR (MDRD) Non-Af Amer 89 mL/min >60 [facility] Comment on above: Non- GFR Calc Platelet mean volume Codey-Ec ker (Bld) [Entitic vol]Ordered By: Carlita Velasquez on 09-10-2023 Platelet mean volume (Bld) [Entitic vol] 9.9 fL 6.2-12.0 [facility] RBC Auto (Bld) [#/Vol]Ordere d By: Carlita Velasquez on 09-10-2023 RBC (Bld) [#/Vol] 4.79 10*6/uL 4.6-6.2 [facility] Serum or plasma calcitriol m easurement (mass/volume)Ordered By: Carlita Velasquez on 09-10-2023 1,25-dihydroxyvitamin D3 [Mass/Vol] 33.6 pg/mL 24.8-81.5 [facility] Comment on above: Performed at: - [address] [id number] Director: Brandie Dial MD, Phone: [phone] Serum or plasma calcium randa urement (mass/volume)Ordered By: Carlita Velasquez on 09-10-2023 Calcium [Mass/Vol] 9.3 mg/dL 8.5-10.1 [facility] Serum or plasma creatinine m easurement (mass/volume)Ordered By: Carlita Velasquez on 09-10-2023 Creatinine [Mass/Vol] 0.93 mg/dL 0.70-1.30 [facility] Comment on above: The validity of the calculated GFR & GFRAA in patients over 70 years has not been determined. Clinical correlation is essential. Serum or plasma urea nitroge n measurement (mass/volume)Ordered By: Carlita Velasquez on 09-10-2023 Urea nitrogen [Mass/Vol] 19 mg/dL 7-18 [facility] Thin prep Papanicolaou smear with manual screeningOrdered By: [facility] on 09-10-2023 Thin prep Papanicolaou smear with manual screening 3.7 g/dL 3.2-5.0 [facility] Thin prep Papanicolaou smear with manual screening 32 U/L 15-37 [facility] Thin prep Papanicolaou smear with manual screening 4 5-15 [facility] Whole blood hemoglobin A1c/t otal hemoglobin ratio (mass fraction)Ordered By: Carlita Velasquez on 09-10-2023 HbA1c (Bld) [Mass fraction] 5.5 % 3.8-5.6 [facility] Comment on above: Normal < 5.7 % Predi abetic 5.7 - 6.4 % Diabetic >or= 6.5 % Please note range changes. Basophil percentageOrdered B y: Mitchell Dubois on 07-07-2023 Bilirubin [Mass/Vol] 0.50 mg/dL 0.20-1.00 [facility] Comment on above: For patients on eltr ombopag therapy, use of Dimension [place] TBIL is not recommended. Cholesterol [Mass/Vol] 152 mg/dL <200 [facility] Comment on above: <200 mg/dL Desirable 200-240 mg/dL Borderline >240 mg/dL High Risk Protein [Mass/Vol] 8.2 g/dL 6.4-8.2 [facility] Triglyceride [Mass/Vol] 140 mg/dL <199 [facility] Comment on above: The drugs N-Acetylcy steine and Metamizole may falsely depress this assay.Serum Triglycerides Reference Interval Normal <150 mg/dL Borderline high 150 - 199 mg/dL High 200 - 499 mg/dL Very High > or = 500 mg/dL Direct bilirubinOrdered By: Mitchell Dubois on 07-07-2023 Bilirubin.direct [Mass/Vol] 0.17 mg/dL 0.00-0.30 [facility] - Chemistry and C hemistry - challengeOrdered By: Mitchell Dubois on 07-07-2023 ALP [Catalytic activity/Vol] 72 U/L 45-117 [facility] ALT [Catalytic activity/Vol] 52 U/L 16-61 [facility] Globulin (S) [Mass/Vol] 4.6 g/dL 2.2-4.2 [facility] Serum or plasma albumin randa urement (mass/volume)Ordered By: Mitchell Dubois on 07-07-2023 Albumin [Mass/Vol] 3.6 g/dL 3.2-5.0 [facility] Serum or plasma cholesterol in HDL measurement (mass/volume)Ordered By: Mitchell Dubois on 07-07-2023 Cholesterol in HDL [Mass/Vol] 65 mg/dL >40 [facility] Comment on above: The drugs N-Acetylcy steine and Metamizole may falsely depress this assay. Reference Range HDL <40 mg/dL Low HDL Cholesterol HDL >or= 60 mg/dL High HDL Cholesterol Serum or plasma cholesterol in VLDL measurement (mass/volume)Ordered By: Mitchell Dubois on 07-07-2023 Cholesterol in VLDL [Mass/Vol] 28 mg/dL 5-40 [facility] Serum or plasma low density lipoprotein (LDL) cholesterol measurement (mass/volume)Ordered By: Mitchell Dubois on 07-07-2023 Cholesterol in LDL [Mass/Vol] 59 mg/dL 0-130 [facility] Thin prep Papanicolaou smear with manual screeningOrdered By: Mitchell Dubois on 07-07-2023 Thin prep Papanicolaou smear with manual screening 31 U/L 15-37 [facility] Absolute lymphocyte countOrd ered By: Meliza Ramírez on 06-15-2023 Lymphocytes Auto (Unsp spec) [#/Vol] 0.73 10*3/uL 0.83-4.51 [facility] Basophil percentageOrdered B y: Meliza Ramírez on 06-15-2023 Basophils/100 WBC (Bld) 0.3 % 0-1 [facility] Bilirubin [Mass/Vol] 0.50 mg/dL 0.20-1.00 [facility] Comment on above: For patients on eltr ombopag therapy, use of Dimension [place] TBIL is not recommended. Chloride [Moles/Vol] 109 mmol/L 98-107 [facility] Eosinophils/100 WBC (Bld) 2.6 % 0-5 [facility] Glucose [Mass/Vol] 93 mg/dL 74-106 [facility] Neutrophils (Bld) [#/Vol] 5.7 10*3/uL 2.0-7.7 [facility] Neutrophils/100 WBC (Bld) 81.6 % 47-70 [facility] Potassium [Moles/Vol] 3.6 mmol/L 3.5-5.1 [facility] Protein [Mass/Vol] 6.8 g/dL 6.4-8.2 [facility] Sodium [Moles/Vol] 138 mmol/L 136-145 [facility] WBC (Bld) [#/Vol] 7.0 10*3/uL 4.4-11.0 [facility] Blood erythrocytes count (nu mber/volume)Ordered By: Meliza Ramírez on 06-15-2023 RBC (Bld) [#/Vol] 3.60 10*6/uL 4.6-6.2 [facility] Blood hemoglobin measurement (mass/volume)Ordered By: Meliza Ramírez on 06-15-2023 Hemoglobin (Bld) [Mass/Vol] 11.7 g/dL 13.0-16.5 [facility] Blood lymphocytes/100 leukoc ytesOrdered By: Meliza Ramírez on 06-15-2023 Lymphocytes/100 WBC (Bld) 10.5 % 19-41 [facility] Blood monocytes/100 leukocyt esOrdered By: Meliza Ramírez on 06-15-2023 Monocytes/100 WBC (Bld) 4.6 % 0-10 [facility] Blood platelet mean volumeOr dered By: Meliza Ramírez on 06-15-2023 Platelet mean volume (Bld) [Entitic vol] 9.9 fL 6.2-12.0 [facility] Determination of erythrocyte mean corpuscular volume (MCV)Ordered By: Meliza Ramírez on 06-15-2023 MCV (RBC) [Entitic vol] 101.4 fL 80-94 [facility] Hematocrit Auto (Bld) [Volum e fraction]Ordered By: Meliza Ramírez on 06-15-2023 Hematocrit (Bld) [Volume fraction] 36.5 % 40-54 [facility] - Chemistry and C hemistry - challengeOrdered By: Meliza Ramírez on 06-15-2023 ALP [Catalytic activity/Vol] 61 U/L 45-117 [facility] ALT [Catalytic activity/Vol] 22 U/L 16-61 [facility] CO2 [Moles/Vol] 22.0 mmol/L 21.0-32.0 [facility] Globulin (S) [Mass/Vol] 4.3 g/dL 2.2-4.2 [facility] Urea nitrogen/Creatinine [Mass ratio] 11.1 mg/mg 10-20 [facility] - Hematology and Cell countsOrdered By: Meliza Ramírez on 06-15-2023 Erythrocyte distribution width (RBC) [Entitic vol] 50.3 fL 35.1-43.9 [facility] Erythrocyte distribution width (RBC) [Ratio] 13.4 % 11.6-14.6 [facility] Immature granulocytes/100 WBC (Bld) 0.400 % 0.0-0.9 [facility] Comment on above: IG% - Immature Granu locytes (promyelocytes, myelocytes and metamyelocytes) > 1% indicates that a LEFT SHIFT is Present. MCH (RBC) [Entitic mass] 32.5 pg 27.0-32.0 [facility] Nucleated RBC/100 WBC (Bld) [Ratio] 0 % 0-5 [facility] MCHC Auto (RBC) [Mass/Vol]Or dered By: Meliza Ramírez on 06-15-2023 MCHC (RBC) [Mass/Vol] 32.1 g/dL 32-36 [facility] No Panel InformationOrdered By: Meliza Ramírez on 06-15-2023 Estimated Creatinine Clearance Calc 107.78 ml/min [facility] Estimated GFR (MDRD) Amer 124 mL/min >60 [facility] Comment on above: GFR Calc Estimated GFR (MDRD) Non-Af Amer 103 mL/min >60 [facility] Comment on above: Non- GFR Calc Platelets bldOrdered By: Rubén Ramírez on 06-15-2023 Platelets (Bld) [#/Vol] 205 10*3/uL 150-450 [facility] Serum or plasma albumin randa urement (mass/volume)Ordered By: Meliza Ramírez on 06-15-2023 Albumin [Mass/Vol] 2.5 g/dL 3.2-5.0 [facility] Serum or plasma albumin/glob ulin mass ratioOrdered By: Meliza Ramírez on 06-15-2023 Albumin/Globulin [Mass ratio] 0.6 {ratio} 0.9-2.4 [facility] Serum or plasma calcium randa urement (mass/volume)Ordered By: Meliza Ramírez on 06-15-2023 Calcium [Mass/Vol] 7.9 mg/dL 8.5-10.1 [facility] Serum or plasma creatinine m easurement (mass/volume)Ordered By: Meliza Ramírez on 06-15-2023 Creatinine [Mass/Vol] 0.81 mg/dL 0.70-1.30 [facility] Comment on above: The validity of the calculated GFR & GFRAA in patients over 70 years has not been determined. Clinical correlation is essential. Serum or plasma urea nitroge n measurement (mass/volume)Ordered By: Meliza Ramírez on 06-15-2023 Urea nitrogen [Mass/Vol] 9 mg/dL 7-18 [facility] Thin prep Papanicolaou smear with manual screeningOrdered By: Meliza Ramírez on 06-15-2023 Thin prep Papanicolaou smear with manual screening 12 U/L 15-37 [facility] Thin prep Papanicolaou smear with manual screening 7 5-15 [facility] Absolute lymphocyte countOrd ered By: Donta Sheehanleigh on 06-14-2023 Lymphocytes Auto (Unsp spec) [#/Vol] 0.90 10*3/uL 0.83-4.51 [facility] Basophil percentageOrdered B y: Donta Polancoshaylaleigh on 06-14-2023 Basophil percentage 0 SEEN /hpf 0-5 [facility] Basophils/100 WBC (Bld) 0.3 % 0-1 [facility] Bilirubin [Mass/Vol] 0.60 mg/dL 0.20-1.00 [facility] Comment on above: For patients on eltr ombopag therapy, use of Dimension [place] TBIL is not recommended. Chloride [Moles/Vol] 108 mmol/L 98-107 [facility] Eosinophils/100 WBC (Bld) 2.5 % 0-5 [facility] Glucose [Mass/Vol] 119 mg/dL 74-106 [facility] Comment on above: Fasting Glucose resu lt from 100 to 125 mg/dL suggests IMPAIRED HOMEOSTASIS per A.D.A. criteria. Neutrophils (Bld) [#/Vol] 7.4 10*3/uL 2.0-7.7 [facility] Neutrophils/100 WBC (Bld) 83.8 % 47-70 [facility] Potassium [Moles/Vol] 4.4 mmol/L 3.5-5.1 [facility] Protein [Mass/Vol] 8.0 g/dL 6.4-8.2 [facility] Sodium [Moles/Vol] 139 mmol/L 136-145 [facility] WBC (Bld) [#/Vol] 8.9 10*3/uL 4.4-11.0 [facility] Bilirubin Test strip Ql (U)O rdered By: Donta Polancoaroldo on 06-14-2023 Bilirubin Ql (U) Negative Negative [facility] Blood erythrocytes count (nu mber/volume)Ordered By: Donta Swenson on 06-14-2023 RBC (Bld) [#/Vol] 4.32 10*6/uL 4.6-6.2 [facility] Blood hemoglobin measurement (mass/volume)Ordered By: Donta Swenson on 06-14-2023 Hemoglobin (Bld) [Mass/Vol] 14.1 g/dL 13.0-16.5 [facility] Blood lymphocytes/100 leukoc ytesOrdered By: Donta Swenson on 06-14-2023 Lymphocytes/100 WBC (Bld) 10.2 % 19-41 [facility] Blood monocytes/100 leukocyt esOrdered By: Donta Swenson on 06-14-2023 Monocytes/100 WBC (Bld) 2.7 % 0-10 [facility] Blood platelet mean volumeOr dered By: Donta Swenson on 06-14-2023 Platelet mean volume (Bld) [Entitic vol] 9.4 fL 6.2-12.0 [facility] Determination of erythrocyte mean corpuscular volume (MCV)Ordered By: Donta Swenson on 06-14-2023 MCV (RBC) [Entitic vol] 100.2 fL 80-94 [facility] Hematocrit Auto (Bld) [Volum e fraction]Ordered By: Donta Swenson on 06-14-2023 Hematocrit (Bld) [Volume fraction] 43.3 % 40-54 [facility] Ketones Test strip Ql (U)Ord ered By: Donta Swenson on 06-14-2023 Ketones Ql (U) Negative Negative [facility] Laboratory - Chemistry and C hemistry - challengeOrdered By: Donta Swenson on 06-14-2023 ALP [Catalytic activity/Vol] 72 U/L 45-117 [facility] ALT [Catalytic activity/Vol] 30 U/L 16-61 [facility] CO2 [Moles/Vol] 27.0 mmol/L 21.0-32.0 [facility] Globulin (S) [Mass/Vol] 4.8 g/dL 2.2-4.2 [facility] Lipase [Catalytic activity/Vol] 235 U/L 13-75 [facility] Comment on above: Please note:LIPASE r evised reference range effective 22. New Lipase methodology. Expected to produce lower values than the previous assay method. NEW Reference Range: 13 - 75 U/L Urea nitrogen/Creatinine [Mass ratio] 11.9 mg/mg 10-20 [facility] - Hematology and Cell countsOrdered By: Donta Swenson on 06-14-2023 Erythrocyte distribution width (RBC) [Entitic vol] 48.7 fL 35.1-43.9 [facility] Erythrocyte distribution width (RBC) [Ratio] 13.1 % 11.6-14.6 [facility] Immature granulocytes/100 WBC (Bld) 0.500 % 0.0-0.9 [facility] Comment on above: IG% - Immature Granu locytes (promyelocytes, myelocytes and metamyelocytes) > 1% indicates that a LEFT SHIFT is Present. MCH (RBC) [Entitic mass] 32.6 pg 27.0-32.0 [facility] Nucleated RBC/100 WBC (Bld) [Ratio] 0 % 0-5 [facility] MCHC Auto (RBC) [Mass/Vol]Or dered By: Donta Swenson on 06-14-2023 MCHC (RBC) [Mass/Vol] 32.6 g/dL 32-36 [facility] Mucus LM Ql (Urine sed)Order ed By: Donta Swenson on 06-14-2023 Mucus Ql (Urine sed) 0 SEEN /hpf [facility] Nitrite Test strip Ql (U)Ord ered By: Donta Swenson on 06-14-2023 Nitrite Ql (U) Negative Negative [facility] No Panel InformationOrdered By: Donta Swenson on 06-14-2023 Estimated Creatinine Clearance Calc 80.09 ml/min [facility] Estimated GFR (MDRD) Amer 89 mL/min >60 [facility] Comment on above: GFR Calc Estimated GFR (MDRD) Non-Af Amer 73 mL/min >60 [facility] Comment on above: Non- GFR Calc Platelets bldOrdered By: Goldie Swenson on 06-14-2023 Platelets (Bld) [#/Vol] 251 10*3/uL 150-450 [facility] Protein Test strip Ql (U)Ord ered By: Donta Swenson on 06-14-2023 Protein Ql (U) Negative Negative [facility] Serum or plasma albumin randa urement (mass/volume)Ordered By: Donta Swenson on 06-14-2023 Albumin [Mass/Vol] 3.2 g/dL 3.2-5.0 [facility] Serum or plasma albumin/glob ulin mass ratioOrdered By: Donta Swenson on 06-14-2023 Albumin/Globulin [Mass ratio] 0.7 {ratio} 0.9-2.4 [facility] Serum or plasma calcium randa urement (mass/volume)Ordered By: Donta Swenson on 06-14-2023 Calcium [Mass/Vol] 9.0 mg/dL 8.5-10.1 [facility] Serum or plasma creatinine m easurement (mass/volume)Ordered By: Donta Swenson on 06-14-2023 Creatinine [Mass/Vol] 1.09 mg/dL 0.70-1.30 [facility] Comment on above: The validity of the calculated GFR & GFRAA in patients over 70 years has not been determined. Clinical correlation is essential. Serum or plasma urea nitroge n measurement (mass/volume)Ordered By: Donta Swenson on 06-14-2023 Urea nitrogen [Mass/Vol] 13 mg/dL 7-18 [facility] Squamous epithelial cells de tection in urine sediment by light microscopyOrdered By: Donta Swenson on 06-14-2023 Epithelial cells.squamous LM Ql (Urine sed) 0 SEEN /hpf 0-5 [facility] Thin prep Papanicolaou smear with manual screeningOrdered By: Donta Swenson on 06-14-2023 Thin prep Papanicolaou smear with manual screening 18 U/L 15-37 [facility] Thin prep Papanicolaou smear with manual screening 4 5-15 [facility] Urine blood detectionOrdered By: Donta Swenson on 06-14-2023 RBC Ql (U) Negative Negative [facility] RBC Ql (U) 0 SEEN /hpf 0-5 [facility] Urine clarityOrdered By: Goldie Swenson on 06-14-2023 Clarity (U) Clear Clear [facility] Urine color determinationOrd ered By: Donta Swenson on 06-14-2023 Color (U) Yellow Yellow [facility] Urine glucose detectionOrder ed By: Donta Swenson on 06-14-2023 Glucose Ql (U) Normal mg/dl Normal [facility] Urine leukocyte esterase det ection by dipstickOrdered By: Donta Swenson on 06-14-2023 Leukocyte esterase Test strip Ql (U) Negative Negative [facility] Urine pHOrdered By: Donta dickerson on 06-14-2023 pH (U) 7.0 [pH] 5.0 - 8.0 [facility] Urine sediment bacteria coun t by microscopy (number/high power field)Ordered By: Donta Sheehanleigh on 06-14-2023 Bacteria LM.HPF (Urine sed) [#/Area] 0 /[HPF] None Seen [facility] Urine specific gravity measu rementOrdered By: Donta Swenson on 06-14-2023 Specific gravity (U) [Rel density] 1.010 1.002-1.030 [facility] Urobilinogen Auto test strip Ql (U)Ordered By: Donta Swenson on 06-14-2023 Urobilinogen Ql (U) Normal mg/dl Normal [facility] Basophil percentageOrdered B y: Sergei Henley on 06-02-2023 Bilirubin [Mass/Vol] 0.30 mg/dL 0.20-1.00 [facility] Comment on above: For patients on eltr ombopag therapy, use of Dimension [place] TBIL is not recommended. Chloride [Moles/Vol] 109 mmol/L 98-107 [facility] Glucose [Mass/Vol] 103 mg/dL 74-106 [facility] Comment on above: Fasting Glucose resu lt from 100 to 125 mg/dL suggests IMPAIRED HOMEOSTASIS per A.D.A. criteria. Potassium [Moles/Vol] 4.6 mmol/L 3.5-5.1 [facility] Protein [Mass/Vol] 7.6 g/dL 6.4-8.2 [facility] Sodium [Moles/Vol] 141 mmol/L 136-145 [facility] WBC (Bld) [#/Vol] 6.3 10*3/uL 4.4-11.0 [facility] Blood erythrocytes count (nu mber/volume)Ordered By: Sergei Henley on 06-02-2023 RBC (Bld) [#/Vol] 4.21 10*6/uL 4.6-6.2 [facility] Blood hemoglobin measurement (mass/volume)Ordered By: Sergei Henley on 06-02-2023 Hemoglobin (Bld) [Mass/Vol] 13.7 g/dL 13.0-16.5 [facility] Blood platelet mean volumeOr dered By: Sergei Henley on 06-02-2023 Platelet mean volume (Bld) [Entitic vol] 9.8 fL 6.2-12.0 [facility] Determination of erythrocyte mean corpuscular volume (MCV)Ordered By: Sergei Henley on 06-02-2023 MCV (RBC) [Entitic vol] 100.7 fL 80-94 [facility] Erythrocyte sedimentation ra teOrdered By: Sergei Henley on 06-02-2023 ESR (Bld) [Velocity] 8 mm/h 0-20 [facility] Hematocrit Auto (Bld) [Volum e fraction]Ordered By: Sergei Henley on 06-02-2023 Hematocrit (Bld) [Volume fraction] 42.4 % 40-54 [facility] Iron measurement (mass/mass) Ordered By: Sergei Henley on 06-02-2023 Iron (Unsp spec) [Mass/Mass] 101 ug/dL 65-175 [facility] - Chemistry and C hemistry - challengeOrdered By: Sergei Henley on 06-02-2023 ALP [Catalytic activity/Vol] 72 U/L 45-117 [facility] ALT [Catalytic activity/Vol] 35 U/L 16-61 [facility] CO2 [Moles/Vol] 28.0 mmol/L 21.0-32.0 [facility] Cobalamin (Vitamin B12) [Mass/Vol] 309 pg/mL 211-911 [facility] Globulin (S) [Mass/Vol] 4.2 g/dL 2.2-4.2 [facility] Magnesium [Mass/Vol] 2.6 mg/dL 1.6-2.6 [facility] Urea nitrogen/Creatinine [Mass ratio] 14.4 mg/mg 10-20 [facility] - Hematology and Cell countsOrdered By: Sergei Henley on 06-02-2023 Erythrocyte distribution width (RBC) [Entitic vol] 47.6 fL 35.1-43.9 [facility] Erythrocyte distribution width (RBC) [Ratio] 12.8 % 11.6-14.6 [facility] MCH (RBC) [Entitic mass] 32.5 pg 27.0-32.0 [facility] Auto (RBC) [Mass/Vol]Or dered By: Sergei Henley on 06-02-2023 MCHC (RBC) [Mass/Vol] 32.3 g/dL 32-36 [facility] No Panel InformationOrdered By: Sergei Henley on 06-02-2023 Estimated GFR (MDRD) Amer 101 mL/min >60 [facility] Comment on above: GFR Calc Estimated GFR (MDRD) Non-Af Amer 84 mL/min >60 [facility] Comment on above: Non- GFR Calc Thyroid Stimulating Hormone (TSH) 1.26 uIU/mL 0.358-3.74 [facility] Vitamin D 25-Hydroxy 34.5 ng/mL [facility] Comment on above: Vitamin D 25(OH) Sta tus Range Deficiency <20 ng/mL (50nmol/L) Insufficiency 20 - 30 ng/mL (50 - 75 nmol/L) Sufficiency 30 - 100 ng/mL (75 - 250 nmol/L) Toxicity >100 ng/mL (>250 nmol/L) Platelets bldOrdered By: Mukesh Henley on 06-02-2023 Platelets (Bld) [#/Vol] 261 10*3/uL 150-450 [facility] Serum or plasma albumin randa urement (mass/volume)Ordered By: Sergei Henley on 06-02-2023 Albumin [Mass/Vol] 3.4 g/dL 3.2-5.0 [facility] Serum or plasma albumin/glob ulin mass ratioOrdered By: Sergei Henley on 06-02-2023 Albumin/Globulin [Mass ratio] 0.8 {ratio} 0.9-2.4 [facility] Serum or plasma calcium randa urement (mass/volume)Ordered By: Sergei Henley on 06-02-2023 Calcium [Mass/Vol] 8.7 mg/dL 8.5-10.1 [facility] Serum or plasma creatinine m easurement (mass/volume)Ordered By: Sergei Henley on 06-02-2023 Creatinine [Mass/Vol] 0.98 mg/dL 0.70-1.30 [facility] Comment on above: The validity of the calculated GFR & GFRAA in patients over 70 years has not been determined. Clinical correlation is essential. Serum or plasma ferritin seema surement (mass/volume)Ordered By: Sergei Henley on 06-02-2023 Ferritin [Mass/Vol] 285 ng/mL 26-388 [facility] Serum or plasma urea nitroge n measurement (mass/volume)Ordered By: Sergei Henley on 06-02-2023 Urea nitrogen [Mass/Vol] 14 mg/dL 7-18 [facility] Thin prep Papanicolaou smear with manual screeningOrdered By: Sergei Henley on 06-02-2023 Thin prep Papanicolaou smear with manual screening 24 U/L 15-37 [facility] Thin prep Papanicolaou smear with manual screening 4 5-15 [facility] Basophil percentageOrdered B y: Eileen Ray on 04-25-2023 Bilirubin [Mass/Vol] 0.40 mg/dL 0.20-1.00 [facility] Comment on above: For patients on eltr ombopag therapy, use of Dimension [place] TBIL is not recommended. Chloride [Moles/Vol] 109 mmol/L 98-107 [facility] Glucose [Mass/Vol] 104 mg/dL 74-106 [facility] Comment on above: Fasting Glucose resu lt from 100 to 125 mg/dL suggests IMPAIRED HOMEOSTASIS per A.D.A. criteria. Potassium [Moles/Vol] 3.9 mmol/L 3.5-5.1 [facility] Protein [Mass/Vol] 7.0 g/dL 6.4-8.2 [facility] Sodium [Moles/Vol] 139 mmol/L 136-145 [facility] WBC (Bld) [#/Vol] 4.7 10*3/uL 4.4-11.0 [facility] Blood erythrocytes count (nu mber/volume)Ordered By: Eileen Ray on 04-25-2023 RBC (Bld) [#/Vol] 4.14 10*6/uL 4.6-6.2 [facility] Blood hemoglobin measurement (mass/volume)Ordered By: Eileen Ray on 04-25-2023 Hemoglobin (Bld) [Mass/Vol] 13.9 g/dL 13.0-16.5 [facility] Blood platelet mean volumeOr dered By: Eileen Ray on 04-25-2023 Platelet mean volume (Bld) [Entitic vol] 9.5 fL 6.2-12.0 [facility] Determination of erythrocyte mean corpuscular volume (MCV)Ordered By: Eileen Ray on 04-25-2023 MCV (RBC) [Entitic vol] 99.8 fL 80-94 [facility] Hematocrit Auto (Bld) [Volum e fraction]Ordered By: Eileen Ray on 04-25-2023 Hematocrit (Bld) [Volume fraction] 41.3 % 40-54 [facility] - Chemistry and C hemistry - challengeOrdered By: Eileen Ray on 04-25-2023 ALP [Catalytic activity/Vol] 61 U/L 45-117 [facility] ALT [Catalytic activity/Vol] 50 U/L 16-61 [facility] CO2 [Moles/Vol] 27.0 mmol/L 21.0-32.0 [facility] Globulin (S) [Mass/Vol] 3.9 g/dL 2.2-4.2 [facility] Urea nitrogen/Creatinine [Mass ratio] 10.2 mg/mg 10-20 [facility] - Hematology and Cell countsOrdered By: Eileen Ray on 04-25-2023 Erythrocyte distribution width (RBC) [Entitic vol] 47.3 fL 35.1-43.9 [facility] Erythrocyte distribution width (RBC) [Ratio] 12.9 % 11.6-14.6 [facility] MCH (RBC) [Entitic mass] 33.6 pg 27.0-32.0 [facility] MCHC Auto (RBC) [Mass/Vol]Or dered By: Eileen Ray on 04-25-2023 MCHC (RBC) [Mass/Vol] 33.7 g/dL 32-36 [facility] No Panel InformationOrdered By: Eileen Ray on 04-25-2023 Estimated Creatinine Clearance Calc 89.08 ml/min [facility] Estimated GFR (MDRD) Amer 100 mL/min >60 [facility] Comment on above: GFR Calc Estimated GFR (MDRD) Non-Af Amer 83 mL/min >60 [facility] Comment on above: Non- GFR Calc Platelets bldOrdered By: Nuno Ray on 04-25-2023 Platelets (Bld) [#/Vol] 185 10*3/uL 150-450 [facility] Serum or plasma albumin randa urement (mass/volume)Ordered By: Eileen Ray on 04-25-2023 Albumin [Mass/Vol] 3.1 g/dL 3.2-5.0 [facility] Serum or plasma albumin/glob ulin mass ratioOrdered By: Eileen Ray on 04-25-2023 Albumin/Globulin [Mass ratio] 0.8 {ratio} 0.9-2.4 [facility] Serum or plasma calcium randa urement (mass/volume)Ordered By: Eileen Ray on 04-25-2023 Calcium [Mass/Vol] 8.6 mg/dL 8.5-10.1 [facility] Serum or plasma creatinine m easurement (mass/volume)Ordered By: Eileen Ray on 04-25-2023 Creatinine [Mass/Vol] 0.98 mg/dL 0.70-1.30 [facility] Comment on above: The validity of the calculated GFR & GFRAA in patients over 70 years has not been determined. Clinical correlation is essential. Serum or plasma urea nitroge n measurement (mass/volume)Ordered By: Eileen Ray on 04-25-2023 Urea nitrogen [Mass/Vol] 10 mg/dL 7-18 [facility] Thin prep Papanicolaou smear with manual screeningOrdered By: Eileen Ray on 04-25-2023 Thin prep Papanicolaou smear with manual screening 73 U/L 1537 [facility] Thin prep Papanicolaou smear with manual screening 3 5-15 [facility] Whole blood hemoglobin A1c/t otal hemoglobin ratio (mass fraction)Ordered By: Ar Torres on 04-25-2023 HbA1c (Bld) [Mass fraction] 5.6 % 3.8-5.6 [facility] Comment on above: Normal < 5.7 % Predi abetic 5.7 - 6.4 % Diabetic >or= 6.5 % Please note range changes. Absolute lymphocyte countOrd ered By: Ar Torres on 04-24-2023 Lymphocytes Auto (Unsp spec) [#/Vol] 1.02 10*3/uL 0.83-4.51 [facility] Basophil percentageOrdered B y: Ar Torres on 04-24-2023 Basophils/100 WBC (Bld) 0.8 % 0-1 [facility] Cholesterol [Mass/Vol] 210 mg/dL <200 [facility] Comment on above: <200 mg/dL Desirable 200-240 mg/dL Borderline >240 mg/dL High Risk Eosinophils/100 WBC (Bld) 4.3 % 0-5 [facility] Neutrophils (Bld) [#/Vol] 3.1 10*3/uL 2.0-7.7 [facility] Neutrophils/100 WBC (Bld) 64.2 % 47-70 [facility] Triglyceride [Mass/Vol] 258 mg/dL <199 [facility] Comment on above: The drugs N-Acetylcy steine and Metamizole may falsely depress this assay.Serum Triglycerides Reference Interval Normal <150 mg/dL Borderline high 150 - 199 mg/dL High 200 - 499 mg/dL Very High > or = 500 mg/dL Blood lymphocytes/100 leukoc ytesOrdered By: Ar Torres on 04-24-2023 Lymphocytes/100 WBC (Bld) 20.9 % 19-41 [facility] Blood monocytes/100 leukocyt esOrdered By: Ar Torres on 04-24-2023 Monocytes/100 WBC (Bld) 9.2 % 0-10 [facility] INR in Blood by Coagulation assayOrdered By: Ar Torres on 04-24-2023 INR Coag (Bld) [Relative time] 1.0 {INR} [facility] - CoagulationOrde red By: Ar Torres on 04-24-2023 aPTT Coag (Bld) [Time] 22.7 s 24.1-36.2 [facility] PT Coag (PPP) [Time] 12.8 s 11.7-14.9 [facility] - Hematology and Cell countsOrdered By: Ar Torres on 04-24-2023 Immature granulocytes/100 WBC (Bld) 0.600 % 0.0-0.9 [facility] Comment on above: IG% - Immature Granu locytes (promyelocytes, myelocytes and metamyelocytes) > 1% indicates that a LEFT SHIFT is Present. Nucleated RBC/100 WBC (Bld) [Ratio] 0 % 0-5 [facility] No Panel InformationOrdered By: Rommel Youssef on 04-24-2023 Activated Clotting Time 197 sec 74-137 [facility] No Panel InformationOrdered By: Ar Torres on 04-24-2023 Troponin I High Sensitivity 74644 pg/mL 3.0-78.0 [facility] Comment on above: Critical Result(s) C alled at: 08:06:06 04/24/2023 by: Kendal Mcqueen. Results read back by same. Please Note: New Test Units and Gender Specific Reference Ranges. For more information see Policy Stat Procedure [place] High Sensitivity Troponin (TNIH) and attachments. Serum or plasma cholesterol in HDL measurement (mass/volume)Ordered By: Ar Torres on 04-24-2023 Cholesterol in HDL [Mass/Vol] 71 mg/dL >40 [facility] Comment on above: The drugs N-Acetylcy steine and Metamizole may falsely depress this assay. Reference Range HDL <40 mg/dL Low HDL Cholesterol HDL >or= 60 mg/dL High HDL Cholesterol Serum or plasma cholesterol in VLDL measurement (mass/volume)Ordered By: Ar Torres on 04-24-2023 Cholesterol in VLDL [Mass/Vol] 52 mg/dL 5-40 [facility] Serum or plasma low density lipoprotein (LDL) cholesterol measurement (mass/volume)Ordered By: Ar Torres on 04-24-2023 Cholesterol in LDL [Mass/Vol] 87 mg/dL 0-130 [facility] Absolute lymphocyte countOrd ered By: Perez Dave on 04-23-2023 Lymphocytes Auto (Unsp spec) [#/Vol] 1.69 10*3/uL 0.83-4.51 [facility] Basophil percentageOrdered B y: Perez Dave on 04-23-2023 Basophils/100 WBC (Bld) 1.1 % 0-1 [facility] Chloride [Moles/Vol] 108 mmol/L 98-107 [facility] Eosinophils/100 WBC (Bld) 6.3 % 0-5 [facility] Glucose [Mass/Vol] 104 mg/dL 74-106 [facility] Comment on above: Fasting Glucose resu lt from 100 to 125 mg/dL suggests IMPAIRED HOMEOSTASIS per A.D.A. criteria. Neutrophils (Bld) [#/Vol] 2.5 10*3/uL 2.0-7.7 [facility] Neutrophils/100 WBC (Bld) 48.0 % 47-70 [facility] Potassium [Moles/Vol] 3.4 mmol/L 3.5-5.1 [facility] Sodium [Moles/Vol] 141 mmol/L 136-145 [facility] WBC (Bld) [#/Vol] 5.3 10*3/uL 4.4-11.0 [facility] Blood erythrocytes count (nu mber/volume)Ordered By: Perez Dave on 04-23-2023 RBC (Bld) [#/Vol] 4.28 10*6/uL 4.6-6.2 [facility] Blood hemoglobin measurement (mass/volume)Ordered By: Perez Dave on 04-23-2023 Hemoglobin (Bld) [Mass/Vol] 14.0 g/dL 13.0-16.5 [facility] Blood lymphocytes/100 leukoc ytesOrdered By: Perez Dave on 04-23-2023 Lymphocytes/100 WBC (Bld) 32.1 % 19-41 [facility] Blood monocytes/100 leukocyt esOrdered By: Perez Dave on 04-23-2023 Monocytes/100 WBC (Bld) 12.1 % 0-10 [facility] Blood platelet mean volumeOr dered By: Perez Dave on 04-23-2023 Platelet mean volume (Bld) [Entitic vol] 9.5 fL 6.2-12.0 [facility] Determination of erythrocyte mean corpuscular volume (MCV)Ordered By: Perez Dave on 04-23-2023 MCV (RBC) [Entitic vol] 98.8 fL 80-94 [facility] Hematocrit Auto (Bld) [Volum e fraction]Ordered By: Perez Dave on 04-23-2023 Hematocrit (Bld) [Volume fraction] 42.3 % 40-54 [facility] INR in Blood by Coagulation assayOrdered By: Perez Dave on 04-23-2023 INR Coag (Bld) [Relative time] 1.0 {INR} [facility] - Chemistry and C hemistry - challengeOrdered By: [facility] on 04-23-2023 CO2 [Moles/Vol] 24.0 mmol/L 21.0-32.0 [facility] Urea nitrogen/Creatinine [Mass ratio] 12.1 mg/mg 10-20 [facility] - CoagulationOrde red By: Perez Dave on 04-23-2023 aPTT Coag (Bld) [Time] 23.0 s 24.1-36.2 [facility] PT Coag (PPP) [Time] 12.9 s 11.7-14.9 [facility] - Hematology and Cell countsOrdered By: Perez Dave on 04-23-2023 Erythrocyte distribution width (RBC) [Entitic vol] 45.7 fL 35.1-43.9 [facility] Erythrocyte distribution width (RBC) [Ratio] 12.6 % 11.6-14.6 [facility] Immature granulocytes/100 WBC (Bld) 0.400 % 0.0-0.9 [facility] Comment on above: IG% - Immature Granu locytes (promyelocytes, myelocytes and metamyelocytes) > 1% indicates that a LEFT SHIFT is Present. MCH (RBC) [Entitic mass] 32.7 pg 27.0-32.0 [facility] Nucleated RBC/100 WBC (Bld) [Ratio] 0 % 0-5 [facility] MCHC Auto (RBC) [Mass/Vol]Or dered By: Perez Dave on 04-23-2023 MCHC (RBC) [Mass/Vol] 33.1 g/dL 32-36 [facility] No Panel InformationOrdered By: Perez Dave on 04-23-2023 Estimated Creatinine Clearance Calc 70.40 ml/min [facility] Estimated GFR (MDRD) Amer 77 mL/min >60 [facility] Comment on above: GFR Calc Estimated GFR (MDRD) Non-Af Amer 63 mL/min >60 [facility] Comment on above: Non- GFR Calc Troponin I High Sensitivity 6 pg/mL 3.0-78.0 [facility] Comment on above: Please Note: New Joan t Units and Gender Specific Reference Ranges. For more information see Policy Stat Procedure [place] High Sensitivity Troponin (TNIH) and attachments. Platelets bldOrdered By: [facility] T[facility]in on 04-23-2023 Platelets (Bld) [#/Vol] 226 10*3/uL 150-450 [facility] Serum or plasma calcium randa urement (mass/volume)Ordered By: [facility]23 Calcium [Mass/Vol] 8.8 mg/dL 8.5-10.1 [facility] Serum or plasma creatinine m easurement (mass/volume)Ordered By: [facility] 04-[facility]23 Creatinine [Mass/Vol] 1.24 mg/dL 0.70-1.30 [facility] Comment on above: The validity of the calculated GFR & GFRAA in patients over 70 years has not been determined. Clinical correlation is essential. Serum or plasma urea nitroge n measurement (mass/volume)Ordered By: [place]es [place] Mauricedirk on 04-23-2023 Urea nitrogen [Mass/Vol] 15 mg/dL 7-18 [facility] Thin prep Papanicolaou smear with manual screeningOrdered By: [facility] on [facility]23 Thin prep Papanicolaou smear with manual screening 9 5-15 [facility] Absolute lymphocyte counton 05-06-2022 Lymphocytes Auto (Unsp spec) [#/Vol] 1.23 10*3/uL 0.83-4.51 [facility] Work Phone: Basophil percentageon 2021 Basophils/100 WBC (Bld) 0.7 % 0-1 [facility] Work Phone: Bilirubin [Mass/Vol] 0.50 mg/dL 0.20-1.00 [facility] Work Phone: Comment on above: For patients on eltr ombopag therapy, use of Dimension [place] TBIL is not recommended. Chloride [Moles/Vol] 105 mmol/L 98-107 [facility] Work Phone: Cholesterol [Mass/Vol] 179 mg/dL <200 [facility] Work Phone: Comment on above: <200 mg/dL Desirable 200-240 mg/dL Borderline >240 mg/dL High Risk Eosinophils/100 WBC (Bld) 3.0 % 0-5 [facility] Work Phone: Glucose [Mass/Vol] 104 mg/dL 74-106 [facility] Work Phone: Comment on above: Fasting Glucose resu lt from 100 to 125 mg/dL suggests IMPAIRED HOMEOSTASIS per A.D.A. criteria. Neutrophils (Bld) [#/Vol] 4.0 10*3/uL 2.0-7.7 [facility] Work Phone: Neutrophils/100 WBC (Bld) 66.8 % 47-70 [facility] Work Phone: Potassium [Moles/Vol] 4.3 mmol/L 3.5-5.1 [facility] Work Phone: Comment on above: Slight Hemolysis, Re sult may be falsely increased. Protein [Mass/Vol] 8.3 g/dL 6.4-8.2 [facility] Work Phone: Sodium [Moles/Vol] 140 mmol/L 136-145 [facility] Work Phone: [phone] Triglyceride [Mass/Vol] 169 mg/dL <199 [facility] Work Phone: [phone] Comment on above: The drugs N-Acetylcy steine and Metamizole may falsely depress this assay.Serum Triglycerides Reference Interval Normal <150 mg/dL Borderline high 150 - 199 mg/dL High 200 - 499 mg/dL Very High > or = 500 mg/dL WBC (Bld) [#/Vol] 6.0 10*3/uL 4.4-11.0 [facility] Work Phone: Blood erythrocytes count (nu mber/volume)on 05-06-2022 RBC (Bld) [#/Vol] 4.85 10*6/uL 4.6-6.2 [facility]: Blood hemoglobin measurement (mass/volume)on 05-06-2022 Hemoglobin (Bld) [Mass/Vol] 15.8 g/dL 13.0-16.5 [facility] Work Phone: Blood lymphocytes/100 leukoc yteson 05-06-2022 Lymphocytes/100 WBC (Bld) 20.5 % 19-41 [facility] Work Phone: Blood monocytes/100 leukocyt eson 05-06-2022 Monocytes/100 WBC (Bld) 8.5 % 0-10 [facility] Work Phone: Blood platelet mean volumeon 05-06-2022 Platelet mean volume (Bld) [Entitic vol] 9.9 fL 6.2-12.0 [facility] Work Phone: Determination of erythrocyte mean corpuscular volume (MCV)on 05-06-2022 MCV (RBC) [Entitic vol] 98.4 fL 80-94 [facility] Work Phone: Erythrocyte sedimentation ra bobby 05-06-2022 ESR (Bld) [Velocity] 17 mm/h 0-20 [facility]: Hematocrit Auto (Bld) [Volum e fraction]on 05-06-2022 Hematocrit (Bld) [Volume fraction] 47.7 % 40-54 [facility] Work Phone: Laboratory - Chemistry and C hemistry - challengeon 05-06-2022 ALP [Catalytic activity/Vol] 82 U/L 45-117 [facility] Work Phone: ALT [Catalytic activity/Vol] 78 U/L 16-61 [facility] Work Phone: CO2 [Moles/Vol] 26.0 mmol/L 21.0-32.0 [facility] Work Phone: [phone] Cobalamin (Vitamin B12) [Mass/Vol] 289 pg/mL 211-911 [facility] Work Phone: [phone] Globulin (S) [Mass/Vol] 4.7 g/dL 2.2-4.2 [facility] Work Phone: [phone] Urea nitrogen/Creatinine [Mass ratio] 8.1 mg/mg 10-20 [facility] Work Phone: [phone] Laboratory - Hematology and Cell countson 05-06-2022 Erythrocyte distribution width (RBC) [Entitic vol] 46.7 fL 35.1-43.9 [facility] Work Phone: [phone] Erythrocyte distribution width (RBC) [Ratio] 12.9 % 11.6-14.6 [facility] Work Phone: [phone] Immature granulocytes/100 WBC (Bld) 0.500 % 0.0-0.9 [facility] Work Phone: [phone] Comment on above: IG% - Immature Granu locytes (promyelocytes, myelocytes and metamyelocytes) > 1% indicates that a LEFT SHIFT is Present. MCH (RBC) [Entitic mass] 32.6 pg 27.0-32.0 [facility] Work Phone: [phone] Nucleated RBC/100 WBC (Bld) [Ratio] 0 % 0-5 [facility] Work Phone: [phone] MCHC Auto (RBC) [Mass/Vol]on 05-06-2022 MCHC (RBC) [Mass/Vol] 33.1 g/dL 32-36 [facility] Work Phone: [phone] Panel Informationon 05-06 Estimated GFR (MDRD) Amer 77 mL/min >60 [facility] Work Phone: [phone] Comment on above: GFR Calc Estimated GFR (MDRD) Non-Af Amer 64 mL/min >60 [facility] Work Phone: [phone] Comment on above: Non- GFR Calc Thyroid Stimulating Hormone (TSH) 0.99 uIU/mL 0.358-3.74 [facility] Work Phone: Vitamin D 25-Hydroxy 37.3 ng/mL [facility] Work Phone: Comment on above: Vitamin D 25(OH) Sta tus Range Deficiency <20 ng/mL (50nmol/L) Insufficiency 20 - 30 ng/mL (50 - 75 nmol/L) Sufficiency 30 - 100 ng/mL (75 - 250 nmol/L) Toxicity >100 ng/mL (>250 nmol/L) Platelets bldon 05-06-2022 Platelets (Bld) [#/Vol] 223 10*3/uL 150-450 [facility] Work Phone: Serum or plasma albumin randa urement (mass/volume)on 05-06-2022 Albumin [Mass/Vol] 3.6 g/dL 3.2-5.0 [facility] Work Phone: Serum or plasma albumin/glob ulin mass ratioon 05-06-2022 Albumin/Globulin [Mass ratio] 0.8 {ratio} 0.9-2.4 [facility] Work Phone: Serum or plasma calcium randa urement (mass/volume)on 05-06-2022 Calcium [Mass/Vol] 9.0 mg/dL 8.5-10.1 [facility] Work Phone: Serum or plasma cholesterol in HDL measurement (mass/volume)on 05-06-2022 Cholesterol in HDL [Mass/Vol] 78 mg/dL >40 [facility] Work Phone: Comment on above: The drugs N-Acetylcy steine and Metamizole may falsely depress this assay. Reference Range HDL <40 mg/dL Low HDL Cholesterol HDL >or= 60 mg/dL High HDL Cholesterol Serum or plasma cholesterol in VLDL measurement (mass/volume)on 05-06-2022 Cholesterol in VLDL [Mass/Vol] 34 mg/dL 5-40 [facility] Work Phone: Serum or plasma creatinine m easurement (mass/volume)on 05-06-2022 Creatinine [Mass/Vol] 1.24 mg/dL 0.70-1.30 [facility] Work Phone: Comment on above: The validity of the calculated GFR & GFRAA in patients over 70 years has not been determined. Clinical correlation is essential. Serum or plasma low density lipoprotein (LDL) cholesterol measurement (mass/volume)on 05-06-2022 Cholesterol in LDL [Mass/Vol] 67 mg/dL 0-130 [facility] Work Phone: [phone] Serum or plasma urea nitroge n measurement (mass/volume)on 05-06-2022 Urea nitrogen [Mass/Vol] 10 mg/dL 7-18 [facility] Work Phone: [phone] Thin prep Papanicolaou smear with manual screeningon 05-06-2022 Thin prep Papanicolaou smear with manual screening 54 U/L 15-37 [facility] Work Phone: Comment on above: Slight Hemolysis, Re sult may be falsely increased. Thin prep Papanicolaou smear with manual screening 9 5-15 [facility] Work Phone: Basophil percentageon 2021 Chloride [Moles/Vol] 108 mmol/L 98-107 [facility] Work Phone: [phone] Cholesterol [Mass/Vol] 158 mg/dL <200 [facility] Work Phone: [phone] Comment on above: <200 mg/dL Desirable 200-240 mg/dL Borderline >240 mg/dL High Risk Glucose [Mass/Vol] 112 mg/dL 74-106 [facility] Work Phone: [phone] Comment on above: Fasting Glucose resu lt from 100 to 125 mg/dL suggests IMPAIRED HOMEOSTASIS per A.D.A. criteria. Potassium [Moles/Vol] 3.9 mmol/L 3.5-5.1 [facility] Work Phone: [phone] Sodium [Moles/Vol] 139 mmol/L 136-145 [facility] Work Phone: [phone] Triglyceride [Mass/Vol] 147 mg/dL [facility] Work Phone: [phone] Comment on above: The drugs N-Acetylcy steine and Metamizole may falsely depress this assay.Serum Triglycerides Reference Interval Normal <150 mg/dL Borderline high 150 - 199 mg/dL High 200 - 499 mg/dL Very High > or = 500 mg/dL WBC (Bld) [#/Vol] 6.1 10*3/uL 4.4-11.0 [facility] Work Phone: [phone] Blood erythrocytes count (nu mber/volume)on 10-31-2021 RBC (Bld) [#/Vol] 4.40 10*6/uL 4.6-6.2 [facility] Work Phone: [phone] Blood hemoglobin measurement (mass/volume)on 10-31-2021 Hemoglobin (Bld) [Mass/Vol] 14.2 g/dL 13.0-16.5 [facility] Work Phone: [phone] Blood platelet mean volumeon 10-31-2021 Platelet mean volume (Bld) [Entitic vol] 9.9 fL 6.2-12.0 [facility] Work Phone: [phone] Determination of erythrocyte mean corpuscular volume (MCV)on 10-31-2021 MCV (RBC) [Entitic vol] 98.2 fL 80-94 [facility] Work Phone: [phone] Hematocrit Auto (Bld) [Volum e fraction]on 10-31-2021 Hematocrit (Bld) [Volume fraction] 43.2 % 40-54 [facility] Work Phone: [phone] Laboratory - Chemistry and C hemistry - challengeon 10-31-2021 CO2 [Moles/Vol] 28.0 mmol/L 21.0-32.0 [facility] Work Phone: [phone] Urea nitrogen/Creatinine [Mass ratio] 10.0 mg/mg 10-20 [facility] Work Phone: [phone] Laboratory - Hematology and Cell countson 10-31-2021 Erythrocyte distribution width (RBC) [Entitic vol] 46.4 fL 35.1-43.9 [facility] Work Phone: [phone] Erythrocyte distribution width (RBC) [Ratio] 13.0 % 11.6-14.6 [facility] Work Phone: MCH (RBC) [Entitic mass] 32.3 pg 27.0-32.0 [facility] Work Phone: [phone] MCHC Auto (RBC) [Mass/Vol]on 10-31-2021 MCHC (RBC) [Mass/Vol] 32.9 g/dL 32-36 [facility] Work Phone: [phone] Panel Informationon 10-31 Estimated Creatinine Clearance Calc 98.20 ml/min [facility] Work Phone: [phone] Estimated GFR (MDRD) Amer 112 mL/min >60 [facility] Work Phone: Comment on above: GFR Calc Estimated GFR (MDRD) Non-Af Amer 92 mL/min >60 [facility] Work Phone: Comment on above: Non- GFR Calc Thyroid Stimulating Hormone (TSH) 0.80 uIU/mL 0.358-3.74 [facility] Work Phone: Platelets bldon 10-31-2021 Platelets (Bld) [#/Vol] 188 10*3/uL 150-450 [facility] Work Phone: [phone] Serum or plasma calcium randa urement (mass/volume)on 10-31-2021 Calcium [Mass/Vol] 8.6 mg/dL 8.5-10.1 [facility] Work Phone: [phone] Serum or plasma cholesterol in HDL measurement (mass/volume)on 10-31-2021 Cholesterol in HDL [Mass/Vol] 66 mg/dL [facility] Work Phone: Comment on above: The drugs N-Acetylcy steine and Metamizole may falsely depress this assay. Reference Range HDL <40 mg/dL Low HDL Cholesterol HDL >or= 60 mg/dL High HDL Cholesterol Serum or plasma cholesterol in VLDL measurement (mass/volume)on 10-31-2021 Cholesterol in VLDL [Mass/Vol] 29 mg/dL 5-40 [facility] Work Phone: [phone] Serum or plasma creatinine m easurement (mass/volume)on 10-31-2021 Creatinine [Mass/Vol] 0.90 mg/dL 0.70-1.30 [facility] Work Phone: Comment on above: The validity of the calculated GFR & GFRAA in patients over 70 years has not been determined. Clinical correlation is essential. Serum or plasma low density lipoprotein (LDL) cholesterol measurement (mass/volume)on 10-31-2021 Cholesterol in LDL [Mass/Vol] 63 mg/dL 0-130 [facility] Work Phone: Serum or plasma urea nitroge n measurement (mass/volume)on 10-31-2021 Urea nitrogen [Mass/Vol] 9 mg/dL 7-18 [facility] Work Phone: Thin prep Papanicolaou smear with manual screeningon 10-31-2021 Thin prep Papanicolaou smear with manual screening 3 5-15 [facility] Work Phone: Absolute lymphocyte counton 10-30-2021 Lymphocytes Auto (Unsp spec) [#/Vol] 1.97 10*3/uL 0.83-4.51 [facility] Work Phone: Basophil percentageon 2021 Basophils/100 WBC (Bld) 0.4 % 0-1 [facility] Work Phone: Chloride [Moles/Vol] 106 mmol/L 98-107 [facility] Work Phone: Eosinophils/100 WBC (Bld) 3.4 % 0-5 [facility] Work Phone: Glucose [Mass/Vol] 94 mg/dL 74-106 [facility] Work Phone: Neutrophils (Bld) [#/Vol] 4.2 10*3/uL 2.0-7.7 [facility] Work Phone: Neutrophils/100 WBC (Bld) 58.0 % 47-70 [facility] Work Phone: Potassium [Moles/Vol] 3.9 mmol/L 3.5-5.1 [facility] Work Phone: Comment on above: Moderate Hemolysis, Result may be falsely increased. Sodium [Moles/Vol] 140 mmol/L 136-145 [facility] Work Phone: WBC (Bld) [#/Vol] 7.2 10*3/uL 4.4-11.0 [facility] Work Phone: Blood erythrocytes count (nu mber/volume)on 10-30-2021 RBC (Bld) [#/Vol] 4.96 10*6/uL 4.6-6.2 [facility] Work Phone: Blood hemoglobin measurement (mass/volume)on 10-30-2021 Hemoglobin (Bld) [Mass/Vol] 16.4 g/dL 13.0-16.5 [facility] Work Phone: Blood lymphocytes/100 leukoc yteson 10-30-2021 Lymphocytes/100 WBC (Bld) 27.6 % 19-41 [facility] Work Phone: Blood monocytes/100 leukocyt eson 10-30-2021 Monocytes/100 WBC (Bld) 10.3 % 0-10 [facility] Work Phone: Blood platelet mean volumeon 10-30-2021 Platelet mean volume (Bld) [Entitic vol] 9.7 fL 6.2-12.0 [facility] Work Phone: Determination of erythrocyte mean corpuscular volume (MCV)on 10-30-2021 MCV (RBC) [Entitic vol] 96.4 fL 80-94 [facility] Work Phone: Hematocrit Auto (Bld) [Volum e fraction]on 10-30-2021 Hematocrit (Bld) [Volume fraction] 47.8 % 40-54 [facility] Work Phone: Laboratory - Chemistry and C hemistry - challengeon 10-30-2021 CO2 [Moles/Vol] 30.0 mmol/L 21.0-32.0 [facility] Work Phone: Magnesium [Mass/Vol] 2.3 mg/dL 1.6-2.6 [facility] Work Phone: [phone] Comment on above: Moderate Hemolysis, Result may be falsely increased. Urea nitrogen/Creatinine [Mass ratio] 16.0 mg/mg 10-20 [facility] Work Phone: [phone] Laboratory - Hematology and Cell countson 10-30-2021 Erythrocyte distribution width (RBC) [Entitic vol] 44.9 fL 35.1-43.9 [facility] Work Phone: [phone] Erythrocyte distribution width (RBC) [Ratio] 12.7 % 11.6-14.6 [facility] Work Phone: [phone] Immature granulocytes/100 WBC (Bld) 0.300 % 0.0-0.9 [facility] Work Phone: [phone] Comment on above: IG% - Immature Granu locytes (promyelocytes, myelocytes and metamyelocytes) > 1% indicates that a LEFT SHIFT is Present. MCH (RBC) [Entitic mass] 33.1 pg 27.0-32.0 [facility] Work Phone: [phone] Nucleated RBC/100 WBC (Bld) [Ratio] 0 % 0-5 [facility] Work Phone: [phone] MCHC Auto (RBC) [Mass/Vol]on 10-30-2021 MCHC (RBC) [Mass/Vol] 34.3 g/dL 32-36 [facility] Work Phone: [phone] Panel Informationon 10-30 Troponin I High Sensitivity < 3 pg/mL 3.0-78.0 [facility] Work Phone: [phone] Comment on above: Please Note: New Joan t Units and Gender Specific Reference Ranges. For more information see Policy Stat Procedure [place] High Sensitivity Troponin (TNIH) and attachments. Troponin I High Sensitivity < 3 pg/mL 3.0-78.0 [facility] Work Phone: [phone] Comment on above: Please Note: New Joan t Units and Gender Specific Reference Ranges. For more information see Policy Stat Procedure [place] High Sensitivity Troponin (TNIH) and attachments. D-Dimer Quantitative (PE/DVT) 0.37 FEU/ug/m 0.27-0.49 [facility] Work Phone: Comment on above: NORMAL D-Dimer level (<0.50) indicates no DVT or PE. Estimated Creatinine Clearance Calc 74.27 ml/min [facility] Work Phone: Estimated GFR (MDRD) Amer 81 mL/min >60 [facility] Work Phone: Comment on above: GFR Calc Estimated GFR (MDRD) Non-Af Amer 67 mL/min >60 [facility] Work Phone: Comment on above: Non- GFR Calc Platelets bldon 10-30-2021 Platelets (Bld) [#/Vol] 235 10*3/uL 150-450 [facility] Work Phone: Serum or plasma calcium randa urement (mass/volume)on 10-30-2021 Calcium [Mass/Vol] 9.5 mg/dL 8.5-10.1 [facility] Work Phone: Serum or plasma creatinine m easurement (mass/volume)on 10-30-2021 Creatinine [Mass/Vol] 1.19 mg/dL 0.70-1.30 [facility] Work Phone: Comment on above: The validity of the calculated GFR & GFRAA in patients over 70 years has not been determined. Clinical correlation is essential. Serum or plasma urea nitroge n measurement (mass/volume)on 10-30-2021 Urea nitrogen [Mass/Vol] 19 mg/dL 7-18 [facility] Work Phone: Thin prep Papanicolaou smear with manual screeningon 10-30-2021 Thin prep Papanicolaou smear with manual screening 4 5-15 [facility] Work Phone: Office Visiton 01-20-2017 Dietary management education, guidance, and counseling (procedure) yes Invalid Interpretation Code [facility] Work Phone: [phone] Documentation of current medications (procedure) Done Invalid Interpretation Code [facility] Work Phone: [phone] Fall risk assessment No Invalid Interpretation Code [facility] Work Phone: [phone] Lab Report: Bilirubin, Direc ton 12-02-2016 Bilirubin (direct) 0.10 mg/dL Invalid Interpretation Code 0.00-0.30 [facility] Work Phone: [phone] Lab Report: Comprehensive Me tabolic Profilon 12-02-2016 Alanine aminotransferase (ALT) 55 U/L Invalid Interpretation Code 12-78 [facility] Work Phone: [phone] Albumin 4.0 g/dL Invalid Interpretation Code 3.4-5.0 [facility] Work Phone: [phone] Albumin/Globulin Ratio 1 {ratio} Invalid Interpretation Code 0.9-2.4 [facility] Work Phone: [phone] Alkaline phosphatase (ALP) 89 U/L Invalid Interpretation Code 45-117 [facility] Work Phone: [phone] ALP enzyme act/vol (Bld) 89 U/L 45-117 [facility] Work Phone: [phone] Anion gap 5 mmol/L Invalid Interpretation Code 5-15 [facility] Work Phone: [phone] Anion gap molar conc 5 mmol/L 5-[address] [facility] Work Phone: [phone] Aspartate aminotransferase (AST) 38 U/L High 15-37 [facility] Work Phone: [phone] Bilirubin (total) 0.40 mg/dL Invalid Interpretation Code 0.20-1.00 [facility] Work Phone: [phone] BUN/Creatinine Ratio 16.4 RATIO Invalid Interpretation Code 10-20 [facility] Work Phone: [phone] Calcium 8.8 mg/dL Invalid Interpretation Code 8.5-10.1 [facility] Work Phone: [phone] Chloride 108 mmol/L High 98-107 [facility] Work Phone: [phone] CO2 25.0 mmol/L Invalid Interpretation Code 21.0-32.0 [facility] Work Phone: [phone] CO2 ppres (BldV) 25.0 mmol/L 21.0-32.0 [facility] Work Phone: [phone] Creatinine 1.10 mg/dL Invalid Interpretation Code 0.70-1.30 [facility] Work Phone: [phone] eGFR (non-black) 74 mL/min/{1.73_m2} Invalid Interpretation Code >60 [facility] Work Phone: [phone] eGFR (non-black) 90 mL/min/{1.73_m2} Invalid Interpretation Code >60 [facility] Work Phone: [phone] EST GFR - AA 90 mL/min >60 [facility] Work Phone: [phone] Globulin 3.9 g/dL High 2.3-3.5 [facility] Work Phone: [phone] Globulin mass conc (S) 3.9 g/dL High 2.3-3.5 [facility] Work Phone: [phone] Glucose 89 mg/dL Invalid Interpretation Code 70-110 [facility] Work Phone: [phone] Glucose mass conc 89 mg/dL 70-110 [facility] Work Phone: [phone] Potassium molar conc 4.1 mmol/L Invalid Interpretation Code 3.5-5.1 [facility] Work Phone: [phone] Protein 7.9 g/dL Invalid Interpretation Code 6.4-8.2 [facility] Work Phone: [phone] Sodium 138 mmol/L Invalid Interpretation Code 136-145 [facility] Work Phone: [phone] Urea nitrogen 18 mg/dL Invalid Interpretation Code 7-18 [facility] Work Phone: [phone] Lab Report: Lipid Profileon 12-02-2016 Cholesterol 146 mg/dL Invalid Interpretation Code 200 [facility] Work Phone: [phone] HDL Cholesterol 55 mg/dL Invalid Interpretation Code [facility] Work Phone: [phone] LDL Cholesterol 64 mg/dL Invalid Interpretation Code 0-130 [facility] Work Phone: [phone] Triglyceride 135 mg/dL Invalid Interpretation Code [facility] Work Phone: [phone] very low density lipoproteins 27 mg/dL Invalid Interpretation Code 5-40 [facility] Work Phone: [phone] Lab Report: PSA,Total - [place] al Screenon 12-02-2016 prostate specific antigen (PSA) screening 0.43 ng/mL Invalid Interpretation Code 0.00-4.00 [facility] Work Phone: [phone] Protein mass conc 0.43 ng/mL 0.00-4.00 [facility] Work Phone: [phone] PSA,TOT SCREEN 0.43 ng/mL Invalid Interpretation Code 0.00-4.00 [facility] Work Phone: [phone] Office Visit: [facility] 07-09-20 16 Documentation of current medications (procedure) Done Invalid Interpretation Code [facility] Work Phone: [phone] Protein mass conc Done [facility] Work Phone: [phone] Replaced Document: [place] WHEELER Observationson 07-09-2016 EKG QRS axis -27 deg [facility] Work Phone: [phone] electrocardiogram interpretation Sinus Rhythm Low voltage in limb leads. ABNORMAL Invalid Interpretation Code [facility] Work Phone: [phone] GE use only - for [employer] import when terms are not otherwise specified 406 ms Invalid Interpretation Code [facility] Work Phone: [phone] Interpretation Sinus Rhythm Low voltage in limb leads. ABNORMAL [facility] Work Phone: [phone] P [place] 42 deg [facility] Work Phone: [phone] P wave axis, electrocardiogram 42 deg Invalid Interpretation Code [facility] Work Phone: [phone] HI Interval 162 ms [facility] Work Phone: [phone] HI interval, electrocardiogram 162 ms Invalid Interpretation Code [facility] Work Phone: [phone] Pulse (Heart Rate) 75 /min Invalid Interpretation Code [facility] Work Phone: [phone] QRS axis, electrocardiogram -27 deg Invalid Interpretation Code [facility] Work Phone: [phone] QRS Duration 102 ms [facility] Work Phone: [phone] QRS duration, electrocardiogram 102 ms Invalid Interpretation Code [facility] Work Phone: [phone] QT Interval new path ms [facility] Work Phone: [phone] QT interval, electrocardiogram new path ms Invalid Interpretation Code [facility] Work Phone: [phone] QTc Chan 406 ms [facility] Work Phone: [phone] T [place] 26 deg [facility] Work Phone: [phone] T wave axis, electrocardiogram 26 deg Invalid Interpretation Code [facility] Work Phone: [phone] Office Visiton 01-05-2016 Dietary management education, guidance, and counseling (procedure) yes Invalid Interpretation Code [facility] Work Phone: [phone] Clinical Lists Update: Prelo repairer kiln car 11-03-2015 Left ventricular Ejection fraction 55 % Invalid Interpretation Code [facility] Work Phone: [phone]) Lab Report: Thyroid Stim Hor nikole (TSH)on 11-01-2015 Thyroid stimulating hormone (TSH) 1.25 u[iU]/mL Invalid Interpretation Code 0.358-3.74 [facility] Work Phone: [phone] Office Visit: [facility] 05-05-20 15 Tobacco smoking status NHIS Former smoker [facility] Work Phone: [phone] Tobacco use CPHS Former smoker Invalid Interpretation Code [facility] Work Phone: [phone] Office Visiton 11-04-2014 cardiac risk group C Invalid Interpretation Code [facility] Work Phone: [phone] General cardiovascular disease 10Y risk [#] Sabina.D'Agostino N/A Invalid Interpretation Code [facility] Work Phone: [phone] Vital Signs Date Time Vital Sign Value Performing Clinician Nova benitez 01-22-2025 18:07-0400 Diastolic blood pressure 91 mm[Hg] Dr. Eduard Henley MD Work Phone: [facility] 01-22-2025 18:07-0400 Systolic blood pressure 145 mm[Hg] Dr. Eduard Henley MD Work Phone: [facility] 01-22-2025 17:00-0400 Heart rate 72 /min Dr. Eduard Henley MD Work Phone: [facility] 01-22-2025 17:00-0400 Respiratory rate 18 /min Dr. Eduard Henley MD Work Phone: [phone] [place] [address] 01-22-2025 17:00-0400 SaO2% (BldA) [Mass fraction] 100 % Dr. Eduard Henley MD Work Phone: [phone] [place] [address] 01-22-2025 13:46-0400 Body height 182.[address] Eduard Henley MD Work Phone: [phone] [place] [address] 01-22-2025 13:46-0400 Body mass index (BMI) [Ratio] 27.1 kg/m2 Dr. Eduard Henley MD Work Phone: [phone] [place] [address] 01-22-2025 13:46-0400 Body temperature 97.5 [degF] Dr. Eduard Henley MD Work Phone: [phone] [place] [address] 01-22-2025 13:46-0400 Body weight 90.[address] Eduard Henley MD Work Phone: [phone] [place] [address] 09-03-2024 03:53-0500 Body temperature 98 [degF] Dr. Eduard Henley MD Work Phone: [phone] [place] [address] 09-03-2024 03:53-0500 Diastolic blood pressure 100 mm[Hg] Dr. Eduard Henley MD Work Phone: [phone] [place] [address] 09-03-2024 03:53-0500 Heart rate 86 /min Dr. Eduard Henley MD Work Phone: [phone] [address] [place], [place] [address] 09-03-2024 03:53-0500 Respiratory rate 18 /min Dr. Eduard Henley MD Work Phone: 4(678)953-779257 [place] [address] 09-03-2024 03:53-0500 SaO2% (BldA) [Mass fraction] 98 % Dr. Eduard Henley MD Work Phone: 1(573)393-275157 [place] [address] 09-03-2024 03:53-0500 Systolic blood pressure 145 mm[Hg] Dr. Eduard Henley MD Work Phone: 2(912)808-449406 [place] [address] 09-03-2024 00:23-0500 Body mass index (BMI) [Ratio] 28.6 kg/m2 Dr. Eduard Henley MD Work Phone: 3(663)924-093557 [place] [address] 09-03-2024 00:23-0500 Body weight 95.[address] Eduard Henley MD Work Phone: 8(173)747-357657 [place] [address] 08-06-2024 13:53-0500 Body mass index (BMI) [Ratio] 28 kg/m2 Dr. Eduard Henley MD Work Phone: 3(097)291-806257 [place] [address] 08-06-2024 13:53-0500 Body weight 93.[address] Eduard Henley MD Work Phone: 4(695)026-033057 [place] [address] 08-06-2024 13:53-0500 Diastolic blood pressure 89 mm[Hg] Dr. Eduard Henley MD Work Phone: 2(399)486-107757 [place] [address] 08-06-2024 13:53-0500 Heart rate 89 /min Dr. Eduard Henley MD Work Phone: 8(037)034-691957 [place] [address] 08-06-2024 13:53-0500 Respiratory rate 16 /min Dr. Eduard Henley MD Work Phone: 7(468)579-023757 [place] [address] 08-06-2024 13:53-0500 Systolic blood pressure 138 mm[Hg] Dr. Eduard Henley MD Work Phone: 7(039)541-449857 [place] [address] 10-02-2023 08:45-0500 Body temperature 98.6 [degF] Dr. Sergei Henley Work Phone: 4(596)104-805057 [place] [address] 10-02-2023 08:45-0500 Diastolic blood pressure 84 mm[Hg] Dr. Sergei Henley Work Phone: 1(885)196-417709 [address] 10-02-2023 08:45-0500 Heart rate 83 /min Dr. Sergei Henley Work Phone: 6(097)657-043609 [address] 10-02-2023 08:45-0500 Respiratory rate 18 /min Dr. Sergei Henley Work Phone: [facility] 10-02-2023 08:45-0500 SaO2% (BldA) [Mass fraction] 97 % Dr. Sergei Henley Work Phone: [facility] 10-02-2023 08:45-0500 Systolic blood pressure 117 mm[Hg] Dr. Sergei Henley Work Phone: [facility] 10-02-2023 06:44-0500 Body height 182.[address] Sergei Henley Work Phone: [facility] 10-02-2023 06:44-0500 Body mass index (BMI) [Ratio] 27.5 kg/m2 Dr. Sergei Henley Work Phone: 4(385)116-356106 [place] [address] 10-02-2023 06:44-0500 Body weight [address] Sergei Henley Work Phone: [facility] 09-11-2023 08:30-0500 Body height 182.[address] Sergei Henley Work Phone: [facility] 09-11-2023 08:27-0500 Body mass index (BMI) [Ratio] 28.6 kg/m2 Dr. Sergei Henley Work Phone: [facility] 09-11-2023 08:27-0500 Body weight 95.[address] Sergei Henley Work Phone: [facility] 09-11-2023 08:27-0500 Diastolic blood pressure 85 mm[Hg] Dr. Sergei Henley Work Phone: [facility] 09-11-2023 08:27-0500 Heart rate 77 /min Dr. Sergei Henley Work Phone: [facility] 09-11-2023 08:27-0500 Respiratory rate 18 /min Dr. Sergei Henley Work Phone: [facility] 09-11-2023 08:27-0500 Systolic blood pressure 141 mm[Hg] Dr. Sergei Henley Work Phone: [facility] 07-17-2023 08:17-0500 Body mass index (BMI) [Ratio] 28.9 kg/m2 Dr. Sergei Henley Work Phone: [facility] 07-17-2023 08:17-0500 Body temperature 97.2 [degF] Dr. Sergei Henley Work Phone: [facility] 07-17-2023 08:17-0500 Body weight 96.[address] Sergei Henley Work Phone: [facility] 07-17-2023 08:17-0500 Diastolic blood pressure 88 mm[Hg] Dr. Sergei Henley Work Phone: [facility] 07-17-2023 08:17-0500 Heart rate 78 /min Dr. Sergei Henley Work Phone: [facility] 07-17-2023 08:17-0500 Respiratory rate 18 /min Dr. Sergei Henley Work Phone: [facility] 07-17-2023 08:17-0500 SaO2% (BldA) [Mass fraction] 98 % Dr. Sergei Henley Work Phone: [facility] 07-17-2023 08:17-0500 Systolic blood pressure 125 mm[Hg] Dr. Sergei Henley Work Phone: [facility] 06-15-2023 07:26-0500 Body temperature 97.9 [degF] Dr. Sergei Henley Work Phone: [facility] 06-15-2023 07:26-0500 Diastolic blood pressure 83 mm[Hg] Dr. Sergei Henley Work Phone: [facility] 06-15-2023 07:26-0500 Heart rate 80 /min Dr. Sergei Henley Work Phone: [facility] 06-15-2023 07:26-0500 Respiratory rate 16 /min Dr. Sergei Henley Work Phone: [facility] 06-15-2023 07:26-0500 SaO2% (BldA) [Mass fraction] 99 % Dr. Sergei Henley Work Phone: [facility] 06-15-2023 07:26-0500 Systolic blood pressure 119 mm[Hg] Dr. Sergei Henley Work Phone: [facility] 06-14-2023 21:15-0400 Body height 182.[address] Sergei Henley Work Phone: 0(869)568-442809 [address] 06-14-2023 21:15-0400 Body mass index (BMI) [Ratio] 29 kg/m2 Dr. Sergei Henley Work Phone: 9(742)902-388209 [address] 06-14-2023 21:15-0400 Body weight 97.[address] Sergei Henley Work Phone: [facility] 06-14-2023 21:09-0400 Body temperature 98.4 [degF] Dr. Sergei Henley Work Phone: [facility] 06-14-2023 21:09-0400 Diastolic blood pressure 100 mm[Hg] Dr. Sergei Henley Work Phone: 8(507)965-189506 [place] [address] 06-14-2023 21:09-0400 Heart rate 88 /min Dr. Sergei Henley Work Phone: [facility] 06-14-2023 21:09-0400 Respiratory rate 22 /min Dr. Sergei Henley Work Phone: [facility] 06-14-2023 21:09-0400 SaO2% (BldA) [Mass fraction] 93 % Dr. Sergei Henley Work Phone: [facility] 06-14-2023 21:09-0400 Systolic blood pressure 152 mm[Hg] Dr. Sergei Henley Work Phone: [facility] 06-14-2023 16:36-0400 Body height 182.[address] Sergei Henley Work Phone: [facility] 06-14-2023 16:36-0400 Body mass index (BMI) [Ratio] 28.8 kg/m2 Dr. Sergei Henley Work Phone: [facility] 06-14-2023 16:36-0400 Body weight 96.[address] Sergei Henley Work Phone: [facility] 05-20-2023 13:29-0400 Body height 182.[address] Sergei Henley Work Phone: 6(956)030-608606 [place] [address] 05-20-2023 13:27-0400 Body mass index (BMI) [Ratio] 29.4 kg/m2 Dr. Sergei Henley Work Phone: 8(921)616-720906 [place] [address] 05-20-2023 13:27-0400 Body weight 98.[address] Sergei Henley Work Phone: [facility] 05-20-2023 13:27-0400 Diastolic blood pressure 80 mm[Hg] Dr. Sergei Henley Work Phone: [facility] 05-20-2023 13:27-0400 Heart rate 84 /min Dr. Sergei Henley Work Phone: 3(039)493-523506 [place] [address] 05-20-2023 13:27-0400 Respiratory rate 18 /min Dr. Sergei Henley Work Phone: [facility] 05-20-2023 13:27-0400 Systolic blood pressure 131 mm[Hg] Dr. Sergei Henley Work Phone: [facility] 04-25-2023 13:00-0400 Body mass index (BMI) [Ratio] 28.9 kg/m2 Dr. Sergei Henley Work Phone: 0(414)567-588606 [place] [address] 04-25-2023 10:23-0400 Body temperature 97.8 [degF] Dr. Sergei Henley Work Phone: [facility] 04-25-2023 10:23-0400 Diastolic blood pressure 78 mm[Hg] Dr. Sergei Henley Work Phone: [facility] 04-25-2023 10:23-0400 Heart rate 63 /min Dr. Sergei Henley Work Phone: [facility] 04-25-2023 10:23-0400 Respiratory rate 18 /min Dr. Sergei Henley Work Phone: [facility] 04-25-2023 10:23-0400 SaO2% (BldA) [Mass fraction] 96 % Dr. Sergei Henley Work Phone: [facility] 04-25-2023 10:23-0400 Systolic blood pressure 112 mm[Hg] Dr. Sergei Henley Work Phone: [facility] 04-24-2023 00:09-0400 Body height 182.[address] Sergei Henley Work Phone: [facility] 04-24-2023 00:09-0400 Body weight 96.[address] Sergei Henley Work Phone: [facility] 04-23-2023 23:38-0400 Body temperature 97.9 [degF] [facility] 04-23-2023 23:38-0400 Diastolic blood pressure 83 mm[Hg] [facility] 04-23-2023 23:38-0400 Heart rate 86 /min [facility] 04-23-2023 23:38-0400 Respiratory rate 17 /min [facility] 04-23-2023 23:38-0400 SaO2% (BldA) [Mass fraction] 99 % [facility] 04-23-2023 23:38-0400 Systolic blood pressure 126 mm[Hg] [facility] 04-23-2023 21:58-0400 Body height 182.88 cm [facility] 04-23-2023 21:58-0400 Body mass index (BMI) [Ratio] 29.5 kg/m2 [facility] 04-23-2023 21:58-0400 Body weight 98.7 kg [facility] 10-31-2021 10:52-0400 Body temperature 97.6 [degF] Dr. Sergei Henley Work Phone: [facility] Work Phone: 10-31-2021 10:52-0400 Diastolic blood pressure 86 mm[Hg] Dr. Sergei Henley Work Phone: [facility] Work Phone: 10-31-2021 10:52-0400 Heart rate 83 /min Dr. Sergei Henley Work Phone: [facility] Work Phone: 10-31-2021 10:52-0400 Respiratory rate 16 /min Dr. Sergei Henley Work Phone: [facility] Work Phone: 10-31-2021 10:52-0400 SaO2% (BldA) [Mass fraction] 96 % Dr. Sergei Henley Work Phone: [facility] Work Phone: 10-31-2021 10:52-0400 Systolic blood pressure 133 mm[Hg] Dr. Sergei Henley Work Phone: [facility] Work Phone: 10-30-2021 19:35-0400 Body height 182.[address] Sergei Henley Work Phone: [facility] Work Phone: 10-30-2021 19:35-0400 Body mass index (BMI) [Ratio] 29 kg/m2 Dr. Sergei Henley Work Phone: [facility] Work Phone: 10-30-2021 19:35-0400 Body weight [address] Sergei Henley Work Phone: [facility] Work Phone: 10-30-2021 19:18-0400 Body temperature 98.2 [degF] Dr. Sergei Henley Work Phone: [facility] Work Phone: 10-30-2021 19:18-0400 Diastolic blood pressure 89 mm[Hg] Dr. Sergei Henley Work Phone: [facility] Work Phone: 10-30-2021 19:18-0400 Heart rate 99 /min Dr. Sergei Henley Work Phone: [facility] Work Phone: 10-30-2021 19:18-0400 Respiratory rate 16 /min Dr. Sergei Henley Work Phone: [facility] Work Phone: 10-30-2021 19:18-0400 SaO2% (BldA) [Mass fraction] 99 % Dr. Sergei Henley Work Phone: [facility] Work Phone: 10-30-2021 19:18-0400 Systolic blood pressure 142 mm[Hg] Dr. Sergei Henley Work Phone: [facility] Work Phone: 10-30-2021 15:00-0400 Body mass index (BMI) [Ratio] 30.2 kg/m2 Dr. Sergei Henley Work Phone: [facility] Work Phone: 10-30-2021 15:00-0400 Body weight 100.[address] Sergei Henley Work Phone: [facility] Work Phone: 08-20-2021 07:38-0500 Diastolic blood pressure 75 mm[Hg] Dr. Sergei Henley Work Phone: [facility] Work Phone: 08-20-2021 07:38-0500 Systolic blood pressure 138 mm[Hg] Dr. Sergei Henley Work Phone: [facility] Work Phone: 08-14-2020 07:21-0500 Body mass index (BMI) [Ratio] 29.1 kg/m2 Dr. Sergei Henley Work Phone: [facility] Work Phone: 01-20-2017 08:42-0400 BMI (Body Mass Index) 28.34 kg/m2 [facility] Work Phone: 01-20-2017 08:42-0400 BP Diastolic 76 mm[Hg] Russellumi DeFinis [facility] Work Phone: 01-20-2017 08:42-0400 BP Systolic 118 mm[Hg] [facility] Work Phone: 01-20-2017 08:42-0400 Height 182.88 cm [facility] Work Phone: 01-20-2017 08:42-0400 Pulse (Heart Rate) 88 /min Harumi DeFinis [facility] Work Phone: 01-20-2017 08:42-0400 Respiratory Rate 20 /min [facility] Work Phone: 01-20-2017 08:42-0400 Weight 94.8 kg [facility] Work Phone: 07-09-2016 08:40-0500 Heart rate 75 /min Zee DeFinis [facility] Work Phone: 07-09-2016 08:26-0500 BMI (Body Mass Index) 28.33 kg/m2 [facility] De[facility]henrik [facility] Work Phone: 07-09-2016 08:26-0500 BP Diastolic 90 mm[Hg] Russellumi DeFinis [facility] Work Phone: 07-09-2016 08:26-0500 BP Systolic 130 mm[Hg] [facility]ee Ultromexhen[facility] Work Phone: 07-09-2016 08:26-0500 BSA (Body Surface Area) 2.17 m2 Hartony Quividi [facility] Work Phone: 07-09-2016 08:26-0500 Pulse (Heart Rate) 75 /min Hartony Ultromexis [facility] Work Phone: 07-09-2016 08:26-0500 Respiratory Rate 16 /min Hartony Ultromexis [facility] Work Phone: 07-09-2016 08:26-0500 Weight 94.76 kg [facility] Work Phone: 07-07-2010 15:49-0500 Height 182.88 cm [email or web address] Work Phone: Encounters Encounter Date Encounter Type Care Provider Facility Start: 01-22-2025 End: 01-22-2025 Emergency department patient visit Dr. Eduard Henley MD Work Phone: -Emergency Department Work Phone: Start: 11-09-2024 End: 11-09-2024 Patient encounter procedure Mg Lewis PA -[facility] Work Phone: Start: 11-09-2024 End: 11-09-2024 ambulatory Eduard Henley Facility:[facility] Start: 11-03-2024 ambulatory Jose Lockwood Facility:[facility] Start: 11-03-2024 Non-patient / Non-visit Dr. Vita SY -[facility] Start: 11-03-2024 End: 11-03-[address] Eduard Henley MD Work Phone: [facility] Work Phone: Start: 11-03-2024 End: 11-03-2024 Patient encounter procedure Mitchell BELLO -[facility] Work Phone: Start: 11-03-2024 End: 11-03-2024 ambulatory Eduard Moralesvenice Facility:[facility] Start: 09-28-2024 End: 09-28-[address] Eduard Henley MD -Laboratory, [facility] Start: 09-28-2024 End: 09-28-2024 ambulatory Eduard Henley Facility:[facility] Start: 09-03-2024 ambulatory Eduard Almanzari lity:[facility] Start: 09-03-2024 Non-patient / Non-visit Dr. Francheska Ray MD -[facility] Work Phone: Start: 09-03-2024 End: 09-03-[address] Eileen Ray MD -Cardiovascular Services Work Phone: Start: 09-03-2024 End: 09-03-2024 Emergency department patient visit Dr. Jesus Romero DO -Emergency Department Work Phone: Start: 09-03-2024 End: 09-03-2024 ambulatory Eileen Ray Facility:[facility] Start: 08-06-2024 End: 08-06-[address] Jose Lockwood MD -[facility] Work Phone: Start: 08-06-2024 End: 08-06-2024 ambulatory Jose Lockwood Facility:[facility] Start: 05-18-2024 ambulatory Eduard Almanzari lity:[facility] Start: 11-12-2023 End: 11-12-2023 ambulatory Charly JEWELL Facility:[facility] Start: 10-02-2023 Non-patient / Non-visit Dr. Mario Henley Work Phone: [facility] Start: 10-02-2023 End: 10-02-2023 Admission to same day surgery center Dr. Sergei Henley Work Phone: [facility] Work Phone: Start: 10-02-2023 End: 10-02-[address] Sergei Henley Work Phone: [facility] Work Phone: Start: 09-11-2023 End: 09-11-[address] Sergei Henley Work Phone: [facility] Work Phone: Start: 09-10-2023 End: 09-10-[address] Sergei Henley Work Phone: [facility] Work Phone: Start: 09-10-2023 End: 09-10-[address] Sergei Henley Work Phone: [facility] Start: 07-17-2023 End: 07-17-[address] Sergei Henley Work Phone: [facility] Work Phone: Start: 07-07-2023 End: 07-07-[address] Sergei Henley Work Phone: [facility] Work Phone: Start: 07-07-2023 End: 07-07-[address] Sergei Henley Work Phone: [facility] Work Phone: Start: 06-15-2023 Non-patient / Non-visit Dr. Mario Henley Work Phone: [facility] Work Phone: Start: 06-14-2023 End: 06-15-2023 Evaluation and management of inpatient Dr. Sergei Henley Work Phone: [facility] Work Phone: Start: 06-14-2023 End: 06-15-[address] Sergei Henley Work Phone: [facility] Work Phone: Start: 06-02-2023 End: 06-02-[address] Sergei Henley Work Phone: [facility] Work Phone: Start: 06-02-2023 End: 06-02-[address] Sergei Henley Work Phone: [facility] Start: 05-20-2023 End: 05-20-[address] Sergei Henley Work Phone: [facility] Work Phone: Start: 04-25-2023 Non-patient / Non-visit Dr. Mario Henley Work Phone: [facility] Work Phone: Start: 04-25-2023 Non-patient / Non-visit Dr. Mario Henley Work Phone: [facility] Start: 04-24-2023 Non-patient / Non-visit Dr. Mario Henley Work Phone: [facility] Start: 04-23-2023 Non-patient / Non-visit Dr. Mario Henley Work Phone: [facility] Work Phone: Start: 04-23-2023 End: 04-25-2023 Evaluation and management of inpatient [facility] Work Phone: Start: 05-06-2022 End: 05-06-2022 ambulatory [facility] Work Phone: Start: 05-06-2022 End: 05-06-2022 Patient encounter procedure [facility] Start: 10-31-2021 Non-patient / Non-visit Dr. Mario Henley Work Phone: [facility] Start: 03-22-2022 Non-patient / Non-visit Dr. Mario Henley Work Phone: [facility] Start: 10-30-2021 End: 10-31-2021 Evaluation and management of inpatient Dr. Sergei Henley Work Phone: [facility] Start: 08-20-2021 End: 08-20-[address] Sergei Henley Work Phone: [facility] Procedures Date Procedure Procedure Detail Performing Clinician Start: 01-22-2025 Plain chest X-ray Dr. Cliff Henley MD Work Phone: Start: 01-22-[address] Eduard Henley MD Work Phone: Start: 11-03-2024 Radionuclide imaging of perfusion of myocardium under exercise stress Dr. Eduard Henley MD Work Phone: Start: 09-28-2024 Measurement of renal function Dr. Eduard Henley MD Work Phone: Comment on above: GFR Calc Start: 09-28-2024 Prostate specific an tigen measurement Dr. Eduard Henley MD Work Phone: Comment on above: This test was perfor med using the TPSA assay method for the[employer] region chemistry system. Values obtained with differentassay methods cannot be used interchangably.When changing PSA assays in the course of monitoring apatient, additional sequential testing should be carriedout to confirm baseline values. Start: 09-28-2024 Vitamin D, 25-hydrox y measurement Dr. Eduard Henley MD Work Phone: Comment on above: Vitamin D 25(OH) Sta tus Range Deficiency <20 ng/mL (50nmol/L) Insufficiency 20 - 30 ng/mL (50 - 75 nmol/L) Sufficiency 30 - 100 ng/mL (75 - 250 nmol/L) Toxicity >100 ng/mL (>250 nmol/L) Start: 09-03-2024 SARS-CoV-2, Influenz a & RSV [...] 11-28-2016 End: 12-02-2016 Lipid panel [AGGREGATE] Bhavani grajeda, PA-C Work Phone: Start: 07-09-2016 End: 07-09-2016 Follow Up Appt 6 months Bhavani Laureano Shai grajeda PA-C Work Phone: Start: 07-09-2016 End: 07-09-2016 PFM Bhavani Ralph PA-C Work Phone: Start: 07-09-2016 End: 07-09-2016 Follow Up Appt 6 months Bhavani Laureano Shai grajeda PA-C Work Phone: Start: 07-09-2016 End: [...] Brain Whyte MD Start: 01-05-2016 End: 01-05-2016 MMSridevi Whyte MD Start: 10-31-2015 End: 11-01-2015 *Hepatic [...] 10-25-2013 End: 11-09-2013 Lipid panel [AGGREGATE] Brain hWyte MD Start: 10-25-2013 End: 10-25-2013 MMM Brain Whyte MD Start: 10-25-2013 End: 11-10-2013 Nuclear stress test -exercise Brain Whyte MD Start: 05-11-2013 End: 06-07-2013 *Hepatic Function Panel Bhavani grajeda PA-C Work Phone: Start: 05-11-2013 End: 06-07-2013 Lipid 1996 panel - Serum or Plasma Bhavani Ralph PA-C Work Phone: Start: 05-11-2013 End: 06-07-2013 *Hepatic Function Panel Bhavain grajeda PA-C Work Phone: Start: 05-11-2013 End: [...] Treatment Date Care Activity Detail Author Start: 01-22-2025 End: 01-22-2025 [facility] Start: 09-03-2024 [facility] Start: 10-02-2023 Patient discharge [facility] Start: 06-15-2023 Patient discharge [facility] Start: 06-14-2023 Following clinical pathway protocol [facility] Start: 06-14-2023 Assessment of risk of venous thromboembolism [facility] Start: 06-14-2023 Inhalation therapy procedure [facility] Start: 06-14-2023 Insertion of catheter into peripheral vein [facility] Start: 06-14-2023 Providing care according to standard [facility] Start: 06-14-2023 Provision of activity privileges [facility] Start: 06-14-2023 [facility] Start: 06-14-2023 Admission procedure [facility] Start: 06-14-2023 Verification routine [facility] Start: 06-14-2023 Hospital admission, emergency, from emergency room, medical nature [facility] Start: 04-25-2023 Patient referral [facility] Work Phone: Start: 04-25-2023 Patient discharge [facility] Start: 04-24-2023 Cardiac monitoring [facility] Start: 04-24-2023 Cardiac rehabilitation - phase 1 [facility] Start: 04-24-2023 Cardiac rehabilitation - phase 2 [facility] Start: 04-24-2023 Patient discharge [facility] Start: 04-24-2023 Systemic arterial pressure monitoring [facility] Start: 04-24-2023 End: 04-24-2023 Taking patient vital signs [facility] Start: 04-24-2023 Vascular disease risk assessment [facility] Start: 04-24-2023 Vital signs measurements [facility] Start: 04-24-2023 End: 04-24-2023 [facility] Start: 04-24-2023 End: 04-24-2023 Notification of physician [facility] Start: 04-24-2023 Patient education [facility] Start: 04-24-2023 Provision of activity privileges [facility] Start: 04-24-2023 Pulse taking [facility] Start: 04-24-2023 Wound care [facility] Start: 04-24-2023 Referral to manager target [facility] Start: 04-24-2023 Following clinical pathway protocol [facility] Start: 04-24-2023 Assessment of risk of venous thromboembolism [facility] Start: 04-24-2023 Cardiac monitoring [facility] Start: 04-24-2023 Catheterization of vein [facility] Start: 04-24-2023 Elevation of head of bed [facility] Start: 04-24-2023 Exercises [facility] Start: 04-24-2023 Implementation of planned interventions [facility] Start: 04-24-2023 Insertion of catheter into peripheral vein [facility] Start: 04-24-2023 Measuring intake and output [facility] Start: 04-24-2023 Notification of physician [facility] Start: 04-24-2023 Providing care according to standard [facility] Start: 04-24-2023 Provision of activity privileges [facility] Start: 04-24-2023 Referral to occupational therapist [facility] Start: 04-24-2023 Referral to service [facility] Start: 04-24-2023 Speech therapy assessment [facility] Start: 04-24-2023 Tobacco use cessation education [facility] Start: 04-24-2023 [facility] Start: 04-24-2023 Vital signs measurements [facility] Start: 04-23-2023 Electrocardiographic procedure [facility] Start: 04-23-2023 Verification routine [facility] Start: 04-23-2023 Admission procedure [facility] Start: 04-23-2023 Oxygen therapy [facility] Start: 04-23-2023 [facility] Start: 01-26-2018 End: 01-26-2018 Appointment Appointment [facility] Work Phone: Start: 08-12-2017 End: 08-12-2017 Appointment Appointment [facility] Work Phone: Start: 06-03-2017 End: 12-06-2016 *Hepatic Function Panel *Hepatic Function Panel [facility] Work Phone: Start: 06-03-2017 End: 12-06-2016 Lipid panel [AGGREGATE] *Lipid Profile CC PCP [facility] Work Phone: Start: 06-03-2017 End: 12-06-2016 *Hepatic Function Panel *Hepatic Function Panel [facility] Work Phone: Start: 06-03-2017 End: 12-06-2016 Lipid panel [AGGREGATE] *Lipid Profile CC PCP [facility] Work Phone: Start: 01-20-2017 End: 01-20-2017 Appointment Appointment [facility] Work Phone: Start: 01-20-2017 End: 01-20-2017 Appointment Appointment [facility] Work Phone: Start: 01-20-2017 End: 01-20-2017 Follow Up Appt 6 months Follow Up Appt 6 months [facility] Work Phone: Start: 01-20-2017 End: 01-20-2017 MMM MMM [facility] Work Phone: Start: 11-28-2016 End: 12-02-2016 *Hepatic Function Panel *Hepatic Function Panel [facility] Work Phone: Start: 11-28-2016 End: 12-02-2016 Lipid panel [AGGREGATE] *Lipid Profile CC PCP [facility] Work Phone: Start: 11-28-2016 End: 12-02-2016 *Hepatic Function Panel *Hepatic Function Panel [facility] Work Phone: Start: 11-28-2016 End: 12-02-2016 Lipid panel [AGGREGATE] *Lipid Profile CC PCP [facility] Work Phone: Start: 07-09-2016 End: 07-09-2016 Follow Up Appt 6 months Follow Up Appt 6 months [facility] Work Phone: Start: 07-09-2016 End: 07-09-2016 PFM PFM [facility] Work Phone: Start: 07-09-2016 End: 07-09-2016 Follow Up Appt 6 months Follow Up Appt 6 months [facility] Work Phone: Start: 07-09-2016 End: 07-09-2016 PFM PFM [facility] Work Phone: Start: 05-03-2016 End: 05-30-2016 *Hepatic Function Panel *Hepatic Function Panel [facility] Work Phone: Start: 05-03-2016 End: 05-30-2016 Lipid panel [AGGREGATE] *Lipid Profile CC PCP [facility] Work Phone: Start: 05-03-2016 End: 05-30-2016 *Hepatic Function Panel *Hepatic Function Panel [facility] Work Phone: Start: 05-03-2016 End: 05-30-2016 Lipid panel [AGGREGATE] *Lipid Profile CC PCP [facility] Work Phone: Start: 01-05-2016 End: 01-05-2016 Follow Up Appt 6 months Follow Up Appt 6 months [facility] Work Phone: Start: 01-05-2016 End: 01-05-2016 MMM MMM [facility] Work Phone: Start: 01-05-2016 End: 01-05-2016 Follow Up Appt 6 months Follow Up Appt 6 months [facility] Work Phone: Start: 01-05-2016 End: 01-05-2016 MMM MMM [facility] Work Phone: Start: 10-31-2015 End: 11-01-2015 *Hepatic Function Panel *Hepatic Function Panel [facility] Work Phone: Start: 10-31-2015 End: 11-01-2015 Lipid panel [AGGREGATE] *Lipid Profile CC PCP [facility] Work Phone: Start: 10-31-2015 End: 11-01-2015 *Hepatic Function Panel *Hepatic Function Panel [facility] Work Phone: Start: 10-31-2015 End: 11-01-2015 Lipid panel [AGGREGATE] *Lipid Profile CC PCP [facility] Work Phone: Start: 05-05-2015 End: 05-01-2015 *Hepatic Function Panel *Hepatic Function Panel [facility] Work Phone: Start: 05-05-2015 End: 05-30-2016 Ecg routine ecg w/least 12 lds w/i&r EKG (In office) [facility] Work Phone: Start: 05-05-2015 End: 05-05-2015 Follow Up Appt 6 months Follow Up Appt 6 months [facility] Work Phone: Start: 05-05-2015 End: 05-01-2015 Lipid panel [AGGREGATE] *Lipid Profile CC PCP [facility] Work Phone: Start: 05-05-2015 End: 05-30-2016 PFM PFM [facility] Work Phone: Start: 05-05-2015 End: 05-01-2015 *Hepatic Function Panel *Hepatic Function Panel [facility] Work Phone: Start: 05-05-2015 End: 05-30-2016 Electrocardiogram, complete EKG (In office) [facility] Work Phone: Start: 05-05-2015 End: 05-05-2015 Follow Up Appt 6 months Follow Up Appt 6 months [facility] Work Phone: Start: 05-05-2015 End: 05-01-2015 Lipid panel [AGGREGATE] *Lipid Profile CC PCP [facility] Work Phone: Start: 05-05-2015 End: 05-30-2016 PFM PFM [facility] Work Phone: Start: 11-04-2014 End: 04-26-2015 *Hepatic Function Panel *Hepatic Function Panel [facility] Work Phone: Start: 11-04-2014 End: 04-26-2015 Follow Up Appt 6 months Follow Up Appt 6 months [facility] Work Phone: Start: 11-04-2014 End: 04-26-2015 Lipid panel [AGGREGATE] *Lipid Profile CC PCP [facility] Work Phone: Start: 11-04-2014 End: 04-26-2015 MM MMM [facility] Work Phone: Start: 11-04-2014 End: 04-26-2015 *Hepatic Function Panel *Hepatic Function Panel [facility] Work Phone: Start: 11-04-2014 End: 04-26-2015 Follow Up Appt 6 months Follow Up Appt 6 months [facility] Work Phone: Start: 11-04-2014 End: 04-26-2015 Lipid panel [AGGREGATE] *Lipid Profile CC PCP [facility] Work Phone: Start: 11-04-2014 End: 04-26-2015 MM MM [facility] Work Phone: Start: 10-31-2014 [...] PCP [facility] Work Phone: Start: 05-02-2014 End: 04-26-2015 Follow Up Appt 6 months Follow Up Appt 6 months [facility] Work Phone: Start: 05-02-2014 End: 04-26-2015 PFM PFM [facility] Work Phone: Start: 05-02-2014 End: 04-26-2015 Follow Up Appt 6 months Follow Up Appt 6 months [facility] Work Phone: Start: 05-02-2014 End: 04-26-2015 PFM PFM [facility] Work Phone: Start: 04-11-2014 End: 05-02-2014 *Hepatic Function Panel *Hepatic Function Panel [facility] Work Phone: Start: 04-11-2014 End: 05-02-2014 Lipid panel [AGGREGATE] *Lipid Profile CC PCP [facility] Work Phone: Start: 04-11-2014 End: 05-02-2014 *Hepatic Function Panel *Hepatic Function Panel [facility] Work Phone: Start: 04-11-2014 End: 05-02-2014 Lipid panel [AGGREGATE] *Lipid Profile CC PCP [facility] Work Phone: Start: 10-25-2013 End: 11-09-2013 *Hepatic Function Panel *Hepatic Function Panel [facility] Work Phone: Start: 10-25-2013 End: 10-25-2013 Ecg routine ecg w/least 12 lds w/i&r EKG (In office) [facility] Work Phone: Start: 10-25-2013 End: 10-25-2013 Follow Up Appt 6 months Follow Up Appt 6 months [facility] Work Phone: Start: 10-25-2013 End: 11-09-2013 Lipid panel [AGGREGATE] *Lipid Profile CC PCP [facility] Work Phone: Start: 10-25-2013 End: 10-25-2013 MMM MMM [facility] Work Phone: Start: 10-25-2013 End: 10-25-2013 Nuclear stress test -exercise Nuclear stress test -exercise [facility] Work Phone: Start: 10-25-2013 End: 11-09-2013 *Hepatic Function Panel *Hepatic Function Panel [facility] Work Phone: Start: 10-25-2013 End: 10-25-2013 Electrocardiogram, complete EKG (In office) [facility] Work Phone: Start: 10-25-2013 End: 10-25-2013 Follow Up Appt 6 months Follow Up Appt 6 months [facility] Work Phone: Start: 10-25-2013 End: 11-09-2013 Lipid panel [AGGREGATE] *Lipid Profile CC PCP [facility] Work Phone: Start: 10-25-2013 End: 10-25-2013 MMM MMM [facility] Work Phone: Start: 10-25-2013 End: 10-25-2013 Nuclear stress test -exercise Nuclear stress test -exercise [facility] Work Phone: Start: 05-11-2013 End: 06-07-2013 *Hepatic Function Panel *Hepatic Function Panel [facility] Work Phone: Start: 05-11-2013 End: 06-07-2013 Lipid panel [AGGREGATE] *Lipid Profile [facility] Work Phone: Start: 05-11-2013 End: 06-07-2013 *Hepatic Function Panel *Hepatic Function Panel [facility] Work Phone: Start: 05-11-2013 End: 06-07-2013 Lipid panel [AGGREGATE] *Lipid Profile [facility] Work Phone: Start: 01-11-2013 End: 01-11-2013 Follow Up Appt 6 months Follow Up Appt 6 months [facility] Work Phone: Start: 01-11-2013 End: 01-11-2013 PFM PFM [facility] Work Phone: Start: 01-11-2013 End: 01-11-2013 Follow Up Appt 6 months Follow Up Appt 6 months [facility] Work Phone: Start: 01-11-2013 End: [...] End: 11-11-2012 Lipid panel [AGGREGATE] *Lipid Profile [facility] Work Phone: Start: 06-01-2012 End: 06-10-2012 *Hepatic Function Panel *Hepatic Function Panel [facility] Work Phone: Start: 06-01-2012 End: 12-30-2012 Follow Up Appt 6 months Follow Up Appt 6 months [facility] Work Phone: Start: 06-01-2012 End: 06-10-2012 Lipid panel [AGGREGATE] *Lipid Profile [facility] Work Phone: Start: 06-01-2012 End: 06-10-2012 *Hepatic Function Panel *Hepatic Function Panel [facility] Work Phone: Start: 06-01-2012 End: 12-30-2012 Follow Up Appt 6 months Follow Up Appt 6 months [facility] Work Phone: Start: 06-01-2012 End: 06-10-2012 Lipid panel [AGGREGATE] *Lipid Profile [facility] Work Phone: Start: 11-28-2011 End: 11-28-2011 Follow Up Appt 6 months Follow Up Appt 6 months [facility] Work Phone: Start: 11-28-2011 End: 11-28-2011 Follow Up Appt 6 months Follow Up Appt 6 months [facility] Work Phone: Lipid 1996 panel - S sharon or Plasma [facility] Patient Education [facility] Work Phone: Patient referral [facility] Work Phone: Troponin T.cardiac [Mass/volume] in Serum or Plasma by High sensitivity method [facility] Immunizations Immunization Date Immunization Notes Care Provider [place] 05-11-2021 Influenza, high dose seasonal Dr. Eduard Henley MD Work Phone: [facility] 05-11-2021 influenza, high dose seasonal, preservative-free Dr. Sergei Henley Work Phone: [facility] 06-25-[address] Sergei Henley Work Phone: [facility] 01-11-2014 tetanus and diphther ia toxoids, adsorbed, preservative free, for adult use (2 Lf of tetanus toxoid and 2 Lf of diphtheria toxoid) Dr. Sergei Henley Work Phone: [facility] Payers Date Payer Category Payer Private Health Insurance [id number] Self-pay [id number] 2011 Private Health Insurance [id number] Unknown [id number] 2.16.8 [id number] Unknown [id number] 2.16.8 [id number] Unknown [id number] 2.16.8 [id number] Unknown [id number] 2.16.8 [id number] Unknown [id number] 2.16.8 [id number] Unknown [id number] 2.16.8 [id number] Unknown [id number] 2.16.8 [id number] Unknown [id number] 2.16.8 [id number] Unknown [id number] 2.16.8 [id number] Unknown [id number] 2.16.8 [id number] Social History Date Type Detail Facility Start: 10-30-2021 End: 09-25-2023 Tobacco smoking status NHIS Unknown if ever smoked [facility] Start: 10-23-2017 Heavy [facility] Start: 10-23-2017 None [facility] Start: 10-23-2017 Spouse/ Signif icant Other [facility] Start: 10-23-2017 Cigars [facility] Start: 1965 Sex Assigned At Male [facility] Start: 04-25-2023 - [facility] Start: 10-27-2024 End: 01-22-2025 Tobacco smoking status NHIS Ex-smoker (finding) [facility] Start: 11-07-2024 Sex Male (finding) [facility] Medical Equipment Procedure Code Equipment Code Equipment Origin al Text Equipment Identifier Dates Drug-eluting coronary artery stent, [id number] lymer-coated [id number] FDA Start: 04-24-2023 Drug-eluting coronary artery stent, [id number]-kwlmnrwnlarxx-ho lymer-coated [id number] FDA Start: 04-24-2023 Goals Date Patient Goal Desired Activity /State Functional Status Date Assessment Result Facility 06-15-2023 Functional status Activity Ability Indepe ndent [facility] Work Phone: 04-25-2023 Functional status Ambulates;Up a d jovon;Bathroom Privilege [facility] Work Phone: 10-31-2021 Functional status Independent [facility] Work Phone: Mental Status Date Assessment Result Facility 01-22-2025 Cognitive function Voice/Name [facility] Work Phone: 09-03-2024 Cognitive function Voice/Name [facility] Work Phone: 10-02-2023 Cognitive function Voice/Name [facility] Work Phone: 06-14-2023 Cognitive function Appropriate;Cooperativ e [facility] Work Phone: 04-25-2023 Cognitive function Voice/Name [facility] Work Phone: 04-23-2023 Cognitive function Voice/Name [facility] Work Phone: 10-31-2021 Cognitive function Voice/Name [facility] Work Phone: 10-30-2021 Cognitive function Voice/Name [facility] Work Phone: Clinical Notes 06-11-2010 to 01-22-2025 Note Date & Type Note Facility 01-22-2025 Discharge summary [facility] 01-22-2025 Radiology Diagnostic study note [facility] Imaging Services [address] [place], [place] [address] Chest 1 View (Portable) MR#: [id number] Acct: [id number] Name: JOVANY MUÑIZ Rep #: [id number] : 1965 M 59 From: Shanelle Ramos MD PCP: Dr. Eduard Henley MD Status: REG ER Study:Chest 1 View (Portable) Date of Exam: 01/22/25 Exam# [id number] Ordering Dr: Dave Mercer MD PROCEDURE: CHEST 1 VIEW (PORTABLE) 01/22/2025 REASON FOR EXAM: CHEST PAIN TECHNIQUE: Frontal view of the chest. COMPARISON: Chest radiograph 09/03/2024. FINDINGS: Hardware: None. Heart: The heart size is normal. Lungs: No focal consolidation, pleural effusion or pneumothorax. Bones: Degenerative changes are identified within the thoracic spine. RAD/Chest 1 View (Portable) IMPRESSION: Negative Chest. Reading Location: [id number] CC: Dr. Eduard Henley MD; Dr. Robert Mercer MD ~ [place]: Signed [facility] 01-22-2025 Discharge summary Note Date/Time January 22, 2025 5:53pm [facility] Medical Records Department [address] [place] [address] Emergency Department Summary 01/22/25 MR#: [id number] Acct: [id number] Name: JOVANY MUÑIZ Rep #:[id number] : 1965 59 From: Robert Mercer MD PCP: Dr. Eduard Henley MD Status :REG ER Location: ED HPI History of Present Illness Chief Complaint: Chest Pain Informant: patient and spouse/S.O. Onset/Context/Timing Onset: Today and Hours Activity at onset: gradual Timing: Continuous Quality: Positive for Dull Location: Substernal Current Severity: Mild Maximum Severity: Mild Worsened By: Nothing Relieved By: Nothing Associated Symptoms: Positive for Nausea; Negative for Vomiting, Diaphoresis, Dyspnea, Cough, Fever, Lightheadedness, Acid Reflux or Palpitations Narrative Narrative: 59-year-old male history of prior to MIs, CAD with a cardiac stents and hypertension. Is on Plavix and aspirin. He felt following up this morning Zemel last several days. He denies recent chest pain or exertional chest pain or exertional shortness of breath. His weight at work this morning 6 7 AM he started having some pain in his back. Which he states he had before with his MIs. And he gets some mild chest tightness. States felt fatigued. Mild nauseano vomiting. Prior Similar Symptoms: Yes Recent Illness/Hospitalization: No CVD Risk Factors: Positive for Hypertension PE Risk Factors: Negative for Recent Travel/Surgery, Recent Immobilization, Prior DVT or PE, Cancer or OCP + Smoking + >/=35 TAD Risk Factors: Negative for Marfan's Syndrome PFSH PFS Medical History Wears partial dentures High cholesterol Heartburn Gastric reflux History of diverticulitis Former smoker History of heart attack History of echocardiogram History of stress test Hypertension Cardiology follow-up encounter Sigmoid diverticulitis History of coronary artery disease Presence of stent in coronary artery (04/25/23) Essential hypertension HLD (hyperlipidemia) Old myocardial 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 (04/25/23) Home Medications ?Medication ?Instructions ?Recorded ?Last Taken ?Type aspirin 81 mg tablet,delayed 81 mg PO QDAY heart healt [facility] 08/06/17 09/26/23 History release (Adult Low Dose Aspirin) cetirizine 10 mg tablet 10 mg PO DAILY PRN allergy s ymptoms 05/20/23 Unknown History nitroglycerin 0.4 mg sublingual 0.4 mg sublingual Q5-1 5M PRN CHEST 06/13/23 Unknown Rx tablet (Nitrostat) PAIN #25 tabs acetaminophen 500 mg capsule 1,000 mg (2 x 500 mg) PO Q8H PRN 06/15/23 10/01/23 Rx PRN fever or pain #30 caps clopidogrel 75 mg tablet (Plavix) 75 mg PO QDAY #90 ta bs 07/20/24 Unknown Rx losartan 50 mg tablet 100 mg PO DAILY 08/06/24 Unk nown History pantoprazole 40 mg tablet,delayed 20 mg PO DAILY 08/06 Unknown History release pitavastatin calcium 1 mg tablet 1 mg PO QDAY 08/06/24 Unknown History Allergy/AdvReac Type Severity Reaction Status Date / Time No Known Allergies Allergy Verified 10/27/24 08:12 Family History Grandfather , age 76 CVA (cerebral vascular accident) Surgical History History of coronary artery stent placement History of cardiac catheterization Presence of coronary angioplasty implant and graft (04/25/23) History of left heart catheterization (~12/2010) Social History Smoking Status: Former smoker how [...] home: Yes ROS ROS ED ROS Narrative Denies recent chest pain or exertional dyspnea or exertional chest pain. He hadback pain and chest tightness today. Constitutional Constitutional ED: Denies chills or fever(s) Eyes Eyes: Reports none ENT ENT ED: Reports ear pain Cardiovascular Cardiovascular: Reports as per HPI and chest pain; Denies palpitations or racingheartbeat Respiratory/Chest Respiratory/Chest: Denies cough or dyspnea Gastrointestinal Gastrointestinal: Reports nausea; Denies abdominal pain, diarrhea, melena or vomiting Genitourinary Genitourinary ED: Denies dysuria or hematuria Musculoskeletal Musculoskeletal: Denies arthralgias Integumentary Denies abscess Neurologic Neurologic: Denies headache(s) Psychiatric Psychiatric: Denies anxiety Endocrine Endocrinology: Denies cold intolerance Hematologic/Lymphatic Hematologic/Lymphatic: Denies easy bleeding Allergic/Immunologic Allergic/Immunologic ED: Denies mouth swelling, tongue swelling or urticaria EXAM Physical Exam Narrative Exam Narrative: Well-appearing 59-year-old male. Vital signs stable afebrile. Pulse ox 100% onroom air no hypoxia. at bedside. H EENT exam pupils round react light. Moist mucous membrane. Neck nontender no JVD. Lungs clear to auscultation bilaterally. Heart regular rhythm rate about 90 no murmur. Chest wall ribs nontender. Abdomen soft nontender. Moving all 4 extremities. Nontender no edema in his cast. 5 out of 5 director of assessing strength. Equal and symmetrical radial pulses. Dorsi plantarflexion intact. Back nontender. Neurologically he is awake and alert answering questions and following commands. Const Vital Signs: 01/22/25 13:46 01/22/25 13:52 01/22/25 14:52 Temperature 97.5 F L Temperature Source Oral Pulse Rate 98 74 Respiratory Rate 18 12 Blood Pressure 166/108 H 140/95 H Blood Pressure Mean 127 110 Pulse Ox 100 100 Oxygen Delivery Method Room Air Room Air Room Air 01/22/25 15:06 01/22/25 16:00 01/22/25 17:00 Temperature Temperature Source Pulse Rate 68 74 72 Respiratory Rate 13 12 18 Blood Pressure 132/90 H 143/93 H 133/88 H Blood Pressure Mean 104 109 103 Pulse Ox 100 99 100 Oxygen Delivery Method Room Air Room Air Room Air Positive well nourished and well developed; Negative for cachectic, contracturesor unkempt General Appearance ED: well developed and NAD; Negative for unkempt, cachectic, contractures or pallor Nutritional Appearance: Negative for cachectic HEENT Reports moist mucous membranes normocephalic and atraumatic Eyes PERRL and EOMs intact bilaterally Neck no lymphadenopathy, supple and no JVD General: Negative for tenderness Chest Wall inspection of chest normal and palpation of chest normal Chest: Negative for tenderness Resp normal respiratory effort and clear to auscultation bilaterally Cardio regular rhythm, S1 normal heart sound, S2 normal heart sound and no murmurs Peripheral Pulses: pulses 2+ throughout GI normal to inspection, nondistended, normoactive bowel sounds, soft to palpation,non-tender, non-distended and no masses Back/Spine no CVA tenderness and no thoracic nor lumbar tenderness Extremity normal to inspection General Extremety ED: Negative for edema, pulses abnormal or tenderness General Extremity: Negative for edema or pulses abnormal Neuro oriented x3 and CN's II-XII intact bilaterally Sensorium / Orientation: awake, alert, oriented to person, oriented to place andoriented to time; Negative for confused, lethargic or stuporous Motor Exam: strength 5/5 throughout Psych mental status grossly normal Appearance: Negative for unkempt Attitude: No agitated Mood & Affect: Negative for depressed, anxious or tearful Skin no rashes or lesions noted and no wounds General Skin Exam: Negative for jaundice or pallor Rashes: No rashes noted Trauma: Negative for abrasion, laceration or puncture Heart Score History: Slightly/Non-Suspicious ECG: Normal Age: >45 - <65 years Risk Factors: >/= 3 Risk Factors or History of CAD Troponin: </= Normal Limit Score: 3 MDM MDM MDM Narrative Medical decision making narrative: 59-year-old male with neck discomfort and chest tightness. Exam benign. No reproducible pain. Initial cardiac workup is negative. Awaiting a 2-hour troponin. He does have obviously cardiac history of multiple stents. He is on Plavix and aspirin. No signs of a dissection on chest x-ray exam. No evidence of any RP wound. Repeat exam patient is doing well at 5:52 PM. His tests are negative. Will be discharged home with outpatient follow-up as needed. History & Record Review Discussion w/independent historian: Patient Additional record(s) reviewed:: Prior inpatient record, Prior outpatient record,Prior ED visit and Prior labs Lab Data Attestation: I reviewed the patient's lab results. Lab results narrative: CBC white count of 5.1. H&H 14 and 43. Platelets 211. Electrolytes show gap 14. BUN and creatinine 12 and 1.1. Glucose 97. Initial troponin is less than 6. Chest x-ray is negative. 2-hour troponin less than 6. Labs: Laboratory Results - last 24 hr 01/22/25 01/22/25 14:00 15:58 WBC 5.1 RBC 4.48 L Hgb 14.9 Hct 43.5 MCV 97.1 H MCH 33.3 H MCHC 34.3 RDW Std Deviation 46.8 H RDW Coeff of Leticia 13.0 Plt Count 211 MPV 9.4 Immature Gran % (Auto) 0.400 Neut % (Auto) 64.2 Lymph % (Auto) 22.1 Cherry % (Auto) 10.1 H Eos % (Auto) 2.4 Baso % (Auto) 0.8 Absolute Neuts (auto) 3.3 Absolute Lymphs (auto) 1.12 Nucleated RBC % 0 Sodium 139 Potassium 4.8 Chloride 103 Carbon Dioxide 21.7 Anion Gap 14 BUN 12 Creatinine 1.11 Estim Creat Clear Calc 76.71 Est GFR (MDRD) Non-Af 76 BUN/Creatinine Ratio 11.0 Glucose 97 Calcium 9.5 Troponin T High Sens < 6 Troponin T Hi Sens 2 Hr < 6 Radiography Chest X-Ray - ED: 1 View, Read by ED Physician, Normal, Heart, Lungs, Mediastinum, Bony Structures, No Acute Disease and Chronic Changes Diagnostic Testing: Clinical Impression(s) from Imaging Studies Chest X-Ray 01/22/25 14:25 IMPRESSION: Negative Chest. Reading Location: [facility] Chest x-ray, portable, single view interpreted by myself shows normal cardiac silhouette. Normal mediastinum. No goiter knob. Normal lung osman. No acuteprocess. Rhythm Strip Rhythm Strip: Sinus Rhythm Rate: 88 Ectopy: None EKG Initial EKG: Attestation: I personally reviewed and interpreted this EKG as follows: Interpretation: Sinus Rhythm and No Acute Injury Pattern Comments: Normal sinus rhythm rate 88 no acute signs of IN or ischemia. Discharge Plan Triage Chief Complaint: Chest Pain ED Provider: Robert Mercer Dx/Rx/DC Orders Clinical Impression: Chest pain, History of coronary artery disease, History of IN (myocardial infarction) Instructions: ED Chest Pain, Uncertain Cause Prescriptions: No Action aspirin [Adult Low Dose Aspirin] 81 mg tablet,delayed release (DR/EC) 81 mg PO QDAY cetirizine 10 mg tablet 10 mg PO DAILY PRN (Reason: allergy symptoms) pantoprazole 40 mg tablet,delayed release (DR/EC) 20 mg PO DAILY Rx Instructions: Take one tablet by mouth daily pitavastatin calcium 1 mg tablet 1 mg PO QDAY acetaminophen 500 mg capsule 1,000 mg PO Q8H PRN PRN (Reason: fever or pain) Qty: 30 0RF losartan 50 mg tablet 100 mg PO DAILY nitroglycerin [Nitrostat] 0.4 mg tablet, sublingual 0.4 mg SUBLINGUAL Q5-15M PRN (Reason: CHEST PAIN) Qty: 25 3RF clopidogrel [Plavix] 75 mg tablet 75 mg PO QDAY Qty: 90 3RF Primary Care Provider: Eduard Henley Referrals: Eduard Henley MD [Primary Care Provider] - 3-5 Days Activity Restrictions/Additional Instructions: All your labs, EKG, chest x-ray were unremarkable. Follow-up with your doctor. Return if you are feeling worse. Nothing bad we can find today. Print Language: Nicaraguan Disposition Disposition: Home, Self Care What to do if you have Problems For any increased pain, shortness of breath, bleeding, nausea or vomiting, chestpain, or any unexpected problems, contact your Primary Care Provider. Call [facility] ([phone]) or report to the closest Emergency Room. Call 911 if necessary. 01/22/251752 <Electronically signed by Robert Mercer MD> Cosigner Signature (if applicable): CC: Dr. Eduard Henley MD ~ Signed [facility] Work Phone: 1(816) 895-884404-01-2025 Evaluation note* Diagnosis Onset Date Resolution Status Admit Date Encounter for examination required by Department of 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) acute November 09, 2024 5:56am [facility] Work Phone: 1(951) 979-718512-27-2024 Evaluation note* Diagnosis Onset Date Resolution Status Admit Date HLD (hyperlipidemia) chronic Dece mber 2023 1:33pm Presence of coronary angioplasty implant and graft April 25, 2023 chronic August 062023 1:33pm [facility] Work Phone: 1(767) 472-311502-22-2024 [facility] Procedure note [facility]02-22-2024 Procedure [facility] 06-15-2023 Progress note Author Rommel Youssef [facility] June 15, 2023 10:24am Note Date/Time June 15, 2023 7 :38am [facility] Medical Records Department [address] [place] [address] Progress Note - Hospitalist 06/15/23 0733 MR#: [id number] Acct: [id number] Name: JOVANY MUÑIZ Rep #:[id number] : 1965 57 From: Rommel Youssef DO PCP: Dr. Sergei Henley MD Status: ADM [facility]ELIC[facility] Location: [facility] [id number] Subjective Subjective Feeling better. Tolerated full liquid [...] 83.8 H, Lymph % (Auto) 10.2 L, Cherry % (Auto) 2.7, Eos % (Auto) 2.5, [...] Clarity Clear, Urine pH 7.0, Ur Specific [place] 1.010, Urine Protein Negative, Urine Glucose (UA) [...] Cosigner Signature (if applicable): CC: ~ Signed [facility] Work Phone: 1(885) 532-737411-04-2023 History and physical note Author Meliza Ramírez [facility] June 14, 2023 7:41pm Note Date/Time June 14, 2023 7 :41pm [facility] Medical Records Department [address] [place] [address] H&P Exam - Hospitalist 06/14/231930 MR#: [id number] Acct: [id number] Name: JOVANY MUÑIZ Rep #:[id number] : 1965 57 From: Meliza Ramírez MD PCP: Dr. Segrei Henley MD Status: REG ER Location: ED HPI - General General Date of Admission: 06/14/23 Date of Service: 06/14/23 Chief Complaint: Abdominal pain HPI Narrative JOVANY MUÑIZ, is a 57-year-old male history of hypertension, coronary artery disease with stent placement 2 months ago who presented to [facility] 06/14/2023 with abdominal pain x1 day. Due [...] denied any withdrawal symptoms at that time. 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 (04/25/23) Essential hypertension History of coronary artery disease HLD (hyperlipidemia) Old myocardial infarction Presence of stent in coronary artery (04/25/23) Home Medications aspirin 81 mg tablet,delayed release (Adult Low Dose Aspirin) 81 mg PO QDAY [facility] 08/06/17 [History Last Taken 10/30/21] buspirone 5 [...] evolocumab 140 mg/mL subcutaneous pen injector (Repatha Tyroneick) 140 mg [id number] #2 mL 06/13/23 [Rx Last Taken Unknown] [...] 83.8 H, Lymph % (Auto) 10.2 L, Cherry % (Auto) 2.7, Eos % (Auto) 2.5, [...] Clarity Clear, Urine pH 7.0, Ur Specific [place] 1.010, Urine Protein Negative, Urine Glucose (UA) [...] documentation, 56minutes Charges/Coding Visit Charges Inpatient E&M: 15710 Init Hosp L2 06/14/231940 <Electronically signed by Meliza Ramírez MD> Cosigner Signature (if applicable): CC: Dr. Sergei Henley MD; Dr. Meliza Ramírez MD~ Signed [facility] Work Phone: 1(534) 803-363911-04-2023 Discharge summary Author Donta Swenson [facility] June 14, 2023 7:24pm Note Date/Time June 14, 2023 4 :52pm [facility] Medical Records Department [address] [place] [address] Emergency Department Summary 06/14/23 MR#: [id number] Acct: [id number] Name: JOVANY MUÑIZ Rep #:[id number] : 1965 57 From: Donta Swenson [...] statins. Few months ago he had an IN/stent placement, and was restarted on a statin. [...] yesterday and he is not passing gas. 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 (04/25/23) Essential hypertension History of coronary artery disease HLD (hyperlipidemia) Old myocardial infarction Presence of stent in coronary artery (04/25/23) Home Medications aspirin 81 mg tablet,delayed release (Adult Low Dose Aspirin) 81 mg PO QDAY [facility] 08/06/17 [History Last Taken 10/30/21] buspirone 5 [...] subcutaneous pen injector (Repatha SureClick) 140 mg [id number] #2 mL 06/13/23 [Rx Last Taken Unknown] [...] 83.8 H Lymph % (Auto) 10.2 L Cherry % (Auto) 2.7 Eos % (Auto) 2.5 [...] Clarity Clear Urine pH 7.0 Ur Specific [place] 1.010 Urine Protein Negative Urine Glucose (UA) [...] Sigmoid diverticulitis Disposition Disposition: Acute Care Hospital [facility] What to do if you have Problems For any increased pain, shortness of breath, bleeding, nausea or vomiting, chestpain, or any unexpected problems, contact your Primary Care Provider. Call [facility] ([phone]) or report to the closest Emergency Room. Call 911 if necessary. 06/14/231923 <Electronically signed by Donta Swenson MD> Cosigner Signature (if applicable): CC: Dr. Sergei Henley MD ~ Signed [facility] Work Phone: 1(660) 188-130711-04-2023 Discharge summary Author Donta Swenson [facility] June 14, 2023 7:24pm Note Date/Time June 14, 2023 4 :52pm [facility] Medical Records Department [address] [place] [address] Emergency Department Summary 06/14/23 MR#: [id number] Acct: [id number] Name: JOVANY MUÑIZ Rep #:[id number] : 1965 57 From: Donta Swenson [...] statins. Few months ago he had an IN/stent placement, and was restarted on a statin. [...] yesterday and he is not passing gas. 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 (04/25/23) Essential hypertension History of coronary artery disease HLD (hyperlipidemia) Old myocardial infarction Presence of stent in coronary artery (04/25/23) Home Medications aspirin 81 mg tablet,delayed release (Adult Low Dose Aspirin) 81 mg PO QDAY [facility] 08/06/17 [History Last Taken 10/30/21] buspirone 5 [...] subcutaneous pen injector (Repatha SureClick) 140 mg [id number] #2 mL 06/13/23 [Rx Last Taken Unknown] [...] 83.8 H Lymph % (Auto) 10.2 L Cherry % (Auto) 2.7 Eos % (Auto) 2.5 [...] Clarity Clear Urine pH 7.0 Ur Specific [place] 1.010 Urine Protein Negative Urine Glucose (UA) [...] Sigmoid diverticulitis Disposition Disposition: Acute Care Hospital [facility] What to do if you have Problems For any increased pain, shortness of breath, bleeding, nausea or vomiting, chestpain, or any unexpected problems, contact your Primary Care Provider. Call [facility] ([phone]) or report to the closest Emergency Room. Call 911 if necessary. 06/14/231923 <Electronically signed by Donta Swenson MD> Cosigner Signature (if applicable): CC: Dr. Sergei Henley MD ~ Signed [facility] Work Phone: 1(312) 450-691109-15-2023 Discharge summary Author Rommel Youssef [facility] April 25, 2023 12:09pm Note Date/Time April 25, 2023 12:06pm [facility] Medical Records Department [address] [place] [address] Discharge Summary 04/25/23 1203 MR#: [id number] Acct: [id number] Name: JOVANY MUÑIZ Rep #:[id number] 1 : 1965 57 From: Rommel Youssef DO PCP: Dr. Sergei Henley MD Status: ADM IN Location: [place] [address] Providers Date of Admission: 04/23/23 Primary Care Physician: Dr. Sergei Henley MD Consultations 04/24/23 02:23 Consult: Cardiology Routine Consulting Provider: Jose Lockwood Reason for Consult: non stemi EMERGENT Consult: No MD Notified: Yes Date Notified: 04/24/23 Time Notified: 02:23 Method of Notification: Text Method of Consult:: [...] Clear Calc 89.08, Est GFR (MDRD) Af [id number], Est GFR (MDRD) Non-Af 83, BUN/Creatinine Ratio [...] not ordered:: Drug Interaction Done w/ Acute IN measure.: Yes Documented LVEF (%): 60 Discharge [...] 90 Patient Comments: Referrals / Follow Up: [facility] [Provider Group] - Within 1 Month Sergei Henley MD [Primary Care Provider] - Within 2 Weeks Disposition Disposition (needs filled in before D/C Order can be placed): Home, Self Care Charges/Coding Visit Charges Inpatient E&M: 28891 Disch Hosp >30min 04/25/23 1209 <Electronically signed by Rommel Youssef DO> Cosigner Signature (if applicable): CC: Dr. Sergie Henley MD; Dr. Rommel Youssef DO~ Signed [facility] Work Phone: 1(809) 576-742409-15-2023 Progress note Author Rommel Youssef [facility] April 25, 2023 12:03pm Note Date/Time April 25, 2023 8:51am [facility] Medical Records Department [address] [place] [address] Progress Note - Hospitalist 04/25/23 0850 MR#: [id number] Acct: [id number] Name: JOVANY MUÑIZ Rep #:[id number] : 1965 57 From: Rommel Youssef DO PCP: Dr. 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 (04/23/23) Chest [...] Clear Calc 89.08, Est GFR (MDRD) Af Vfeb998, Est GFR (MDRD) Non-Af 83, BUN/Creatinine Ratio [...] Eduard Henley MD Performed By: Karely Sanchez, RDCS, RVT Physical Exam Const alert and no [...] Cosigner Signature (if applicable): CC: ~ Signed [facility] Work Phone: 1(667) 110-397709-15-2023 Progress note Author Jose Lockwood [facility] April 25, 2023 7:23am Note Date/Time April 25, 2023 7:23am [facility] Medical Records Department [address] [place] [address] Progress Note - Cardiology 04/25/23719 MR#: [id number] Acct: [id number] Name: JOVANY MUÑIZ Rep #:[id number] : 1965 57 From: Jose Lockwood MD PCP: Dr. Sergei Henley MD Status: ADM IN [facility] Subjective Subjective Patient seen and evaluated appears [...] hr 04/24/23 07:02: Troponin I High Sens 26186 H* 04/24/23 10:33: Activated Clotting Time 197 [...] Eduard Henley MD Performed By: Karely Sanchez, RDCS, RVT Physical Exam Const alert and no [...] Orientation: awake and alert Coordination / Balance: aknwuq-rx-njwr test normal and rckb-fn-yjri test normal Speech: speech normal Psych affect [...] intensity statin. 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 Sergei Henley MD Status: ADM IN Location: [place] [address]- Subjective Subjective Feels well. Some mild chest [...] % (Auto) 48.0, Lymph % (Auto) 32.1, Cherry% (Auto) 12.1 H, Eos % (Auto) 6.3 [...] % (Auto) 64.2, Lymph % (Auto) 20.9, Cherry% (Auto) 9.2, Eos % (Auto) 4.3, Baso [...] 106, Calcium 9.2, Troponin I High Sens 96815 H*, Triglycerides 258 H, Cholesterol 210 H, LDL Cholesterol 87, VLDL Cholesterol 52 H, HDL Cholesterol 71 04/24/23 07:02: Troponin I High Sens 72986 H* Radiography Diagnostic Testing: Radiology Impression Brain CT 04/23/23 21:34 IMPRESSION: Negative Brain CT without contrast. Electronically Signed: Kris White MD at 21:54 EDT Reading Location ID and State: 994 / [employer] Tel , Service support , ADDENDUM: 04/23/23 2202 IMPRESSION: Negative Brain CT without contrast. N.B. : The above Results were Read Back by Kris White MD to Perez Dave DO, and understanding confirmed on 04/23/2023 21:55:56 (ET). Electronically Signed: Kris White MD at 21:54 EDT Reading Location ID and State: [employer] / [employer] , Service support , Head/Neck CTA 04/23/23 21:34 IMPRESSION: Normal CTA Head with contrast. Moderate (60%) carotid stenosis bilaterally. Patent vertebral arteries bilaterally. Electronically Signed: Kris White MD at 22:05 EDT Reading Location ID and State: 994 / [employer] , Service support , ADDENDUM: 04/23/23 2213 IMPRESSION: Normal CTA Head with contrast. Moderate (60%) carotid stenosis bilaterally. Patent vertebral arteries bilaterally. N.B. : The above Results were Read Back by Kris White MD to Perez Dave DO, and understanding confirmed on 04/23/2023 22:06:20 (ET). Electronically Signed: Kris White MD at 22:05 EDT Reading Location ID and State: 994 / [employer] Tel , Service support , Chest X-Ray 04/23/23 22:14 IMPRESSION: Normal x-ray examination of the chest. Electronically Signed: Kris White MD at 22:32 EDT , Physical Exam Const alert and [...] Orientation: awake and alert Coordination / Balance: shmwte-te-tbgd test normal and liym-zx-mtqe test normal Speech: speech normal Psych affect [...] is anticoagulated. Charges/Coding Visit Charges Inpatient E&M: 17101 Subs Hosp L2 04/24/23 5324 <Electronically signed by Rommel Youssef DO> Cosigner Signature (if applicable): CC: ~ Signed [facility] Work Phone: 1(882) 264-130209-14-2023 History and physical note Author Ar Torres [facility] April 24, 2023 10:35am Note Date/Time April 23, 2023 11:01pm [facility] Medical Records Department [address] [facility] [place] [address] H&P Exam - Hospitalist 04/23/23 2301 MR#: [id number] Acct: [id number] Name: JOVANY MUÑIZ Rep #:[id number] : 1965 57 From: Ar Torres MD PCP: Dr. Sergei Henley MD Status: ADM IN Location: [place] [address]50327- 1 HPI - General General Date of [...] and patient was not acandidate of thrombolytics. 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 N.B. : The above Results were Read Back by Kris White MD to Perez Dave DO, and understanding confirmed on 04/23/2023 21:55:56 (ET). Electronically Signed: Kris White MD at 21:54 EDT Reading Location ID and State: 994 / [employer] , Service support , Head/Neck CTA 04/23/23 21:34 IMPRESSION: Normal CTA Head with contrast. Moderate (60%) carotid stenosis bilaterally. Patent vertebral arteries bilaterally. Electronically Signed: Kris White MD at 22:05 EDT Reading Location ID and State: 994 / [employer] , Service support , ADDENDUM: 04/23/233 IMPRESSION: Normal CTA Head with contrast. Moderate (60%) carotid stenosis bilaterally. Patent vertebral arteries bilaterally. N.B. : The above Results were Read Back by Kris White MD to Perez Dave DO, and understanding confirmed on 04/23/2023 22:06:20 (ET). Electronically Signed: Kris White MD at 22:05 EDT Reading Location ID and State: 994 / [employer] , Service support , Chest X-Ray 04/23/23 22:14 IMPRESSION: Normal x-ray examination of the chest. Electronically Signed: Kris White MD at 22:32 EDT Reading Location ID and State: 994 / [employer] , Service support , Assessment & Plan Assessment/Plan (1) Brain [...] EKG tracing did not show ST elevation IN. ASA 81 mg p.o. daily; and Plavix [...] documentation, 70minutes. Charges/Coding Visit Charges Inpatient E&M: 28120 Init Hosp L3 04/24/23 1035 <Electronically signed by Ar Torres MD> Cosigner Signature (if applicable): CC: Dr. Sergei Henley MD; Dr. Ar Torres MD~ Signed [facility] Work Phone: [phone]) 185-786909-14-2023 Consult note Author Jose Lockwood [facility] April 24, 2023 10:00am Note Date/Time April 24, 2023 7:34am [facility] Medical Records Department [address] [place] [address] Consultation - Cardiology 04/24/23 0726 MR#: [id number] Acct: [id number] Name: JOVANY MUÑIZ Rep #:[id number] : 1965 57 From: Jose Lockwood MD PCP: Dr. Sergei Henley MD Status: ADM IN Location: [place] [address] Assessment & Plan Assessment/Plan (1) NSTEMI (non-ST [...] intensity statin. 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 [facility] Medical History (Updated 04/24/23 @ 07:[address] 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 Essential hypertension [...] % (Auto) 48.0, Lymph % (Auto) 32.1, Cherry% (Auto) 12.1 H, Eos % (Auto) 6.3 [...] % (Auto) 64.2, Lymph % (Auto) 20.9, Cherry% (Auto) 9.2, Eos % (Auto) 4.3, Baso [...] 106, Calcium 9.2, Troponin I High Sens 87169 H*, Triglycerides 258 H, Cholesterol 210 H, LDL Cholesterol 87, VLDL Cholesterol 52 H, HDL Cholesterol 71 Cardiology Labs/Tests 04/23/23 21:30: WBC 5.3, RBC 4.28 L, Hgb 14.0, Hct 42.3, MCV 98.8 H, MCH 32.7 H,MCHC 33.1, Plt Count 226, MPV 9.5, Immature Gran % (Auto) 0.400, Neut % (Auto) 48.0, Lymph % (Auto) 32.1, Cherry % (Auto) 12.1 H, Eos % (Auto) [...] % (Auto) 64.2, Lymph % (Auto) 20.9, Cherry % (Auto) 9.2, Eos % (Auto) 4.3, [...] White MD at 21:54 EDT , ADDENDUM: 04/23/232 IMPRESSION: Negative Brain CT [...] Kris White MD at 22:05 EDT , ADDENDUM: 04/23/23 2213 IMPRESSION: Normal CTA [...] Kris White MD at 22:32 EDT , 04/24/23 1000 <Electronically signed by Jose Lockwood MD> Cosigner Signature (if applicable): CC: Dr. Sergei Henley MD; Dr. Jose Lockwood MD; Dr. Ar Torres MD~ Signed [facility] Work Phone: 1(122) 824-972809-14-2023 Discharge summary Author Perez Dave [facility] April 24, 2023 12:00am Note Date/Time April 23, 2023 9:39pm [facility] Medical Records Department [address] [place] [address] Emergency Department Summary 04/23/23 MR#: [id number] Acct: [id number] Name: ANTONINOJOVANY JOSE Rep #:[id number] : 1965 57 From: Perez Dave DO PCP: Dr. Sergei Henley MD Status: ADM IN Location: [place] [address] HPI History of Present Illness Chief Complaint: [...] in his chest. Slight shortness of breath. 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 Will obtain EKG uponarrival back to the room as well as basic labs and troponin. Patient will be evaluated by stroke neurologist via robot from [facility]. Patient was evaluated by [facility] neurology. When he arrived back from CT [...] of [address] elevation IN noted although the computerthought there was ST elevation IN. CT scan of the brain without contrast [...] % (Auto) 48.0 Lymph % (Auto) 32.1 Cherry % (Auto) 12.1 H Eos % (Auto) [...] White MD at 21:54 EDT , ADDENDUM: 04/23/239 IMPRESSION: Negative Brain CT without contrast. N.B. : The above Results were Read Back by Kris White MD to Perez Dave DO, and understanding confirmed on 04/23/2023 21:55:56 (ET). Electronically Signed: Kris White MD at 21:54 EDT Reading Location ID and State: 994 / [employer] , Service support , Head/Neck CTA 04/23/23 21:34 IMPRESSION: Normal CTA Head with contrast. Moderate (60%) carotid stenosis bilaterally. Patent vertebral arteries bilaterally. Electronically Signed: Kris White MD at 22:05 EDT Reading Location ID and State: 994 / [employer] , Service support , ADDENDUM: 04/23/23 2213 IMPRESSION: Normal CTA Head with contrast. Moderate (60%) carotid stenosis bilaterally. Patent vertebral arteries bilaterally. N.B. : The above Results were Read Back by Kris White MD to Perez Dave DO, and understanding confirmed on 04/23/2023 22:06:20 (ET). Electronically Signed: Kris White MD at 22:05 EDT Reading Location ID and State: 994 / [employer] , Service support , Chest X-Ray [...] rate of [address] elevation IN noted. Hehad some nonspecific ST changes. Prior EKG tracings: available for review Prior: Unchanged Discharge Plan Dx/Rx/DC Orders Clinical Impression: Brain TIA, History of coronary artery disease, Chest pain Disposition Disposition: Acute Care Hospital [facility] Discharge Date/Time: 04/23/23 23:43 What to do if you have Problems For any increased pain, shortness of breath, bleeding, nausea or vomiting, chestpain, or any unexpected problems, contact your Primary Care Provider. Call [facility] ([phone]) or report to the closest Emergency Room. Call 911 if necessary. 04/24/23 0000 <Electronically signed by Perez Dave DO> Cosigner Signature (if applicable): CC: Dr. Sergei Henley MD ~ Signed [facility] Work Phone: 1(724) 528-399711-01-2010 Evaluation note* Diagnosis Onset Date Resolution Status Atherosclerotic heart diseas e of iroquois coronary artery without angina pectoris chronic Essential hypertension chron ic HLD (hyperlipidemia) chronic Presence of stent in coronary artery June, chronic [facility] Work Phone: 1(412) 467-588811-01-2010 Evaluation note* Diagnosis Onset Date Resolution Status Atherosclerotic heart diseas e of iroquois coronary artery without angina pectoris chronic Essential hypertension chron ic HLD (hyperlipidemia) chronic Presence of stent in coronary artery June, chronic Chest pain, atypical acute [facility] Work Phone: Discharge summary Author Rommel Youssef [facility] June 15, 2023 10:31am Note Date/Time June 15, 2023 1 0:26am [facility] Medical Records Department [address] [place] [address] Discharge Summary 06/15/23 1024 MR#: [id number] Acct: [id number] Name: JOVANY MUÑIZ Rep #:[id number] : 1965 57 From: Rommel Youssef DO PCP: Dr. Sergei Henley MD Status: ADM FELICITA Location: [place] [address] Providers Date of Admission: 06/14/23 Primary Care [...] Low Dose Aspirin) 81 mg PO QDAY [facility] 08/06/17 buspirone 5 mg tablet 5 mg PO BID 04/23/23 coenzyme Q10 100 mg capsule 100 mg PO DAILY 05/05/23 cetirizine 10 mg tablet 10 mg PO DAILY PRN allergy symptoms 05/20/23 clopidogrel 75 mg tablet (Plavix) 75 mg PO QDAY #93 tabs 05/20/23 losartan 50 mg tablet 50 mg PO DAILY 05/20/23 evolocumab 140 mg/mL subcutaneous pen injector (Repatha SureClick) 140 mg [id number] #2 mL 06/13/23 nitroglycerin 0.4 mg sublingual tablet (Nitrostat) 0.4 mg sublingual Q5-15M PRN CHEST PAIN #25 tabs 06/13/23 cholecalciferol (vitamin D3) 25 mcg (1,000 unit) capsule 1,000 unit PO BID 06/14/23 cobalamine combinations capsule cap PO DAILY 06/14/23 acetaminophen 500 mg capsule 1,000 mg (2 x 500 mg) PO Q8H PRN PRN fever or pain #30 caps 11/05/23 amoxicillin 875 mg-potassium clavulanate 125 mg tablet [...] 83.8 H, Lymph % (Auto) 10.2 L, Cherry % (Auto) 2.7, Eos % (Auto) 2.5, [...] Clarity Clear, Urine pH 7.0, Ur Specific [place] 1.010, Urine Protein Negative, Urine Glucose (UA) [...] (Auto) 81.6 H, Lymph % (Auto)10.5 L, Cherry % (Auto) 4.6, Eos % (Auto) 2.6, [...] Discharge Diet: Low fat / Low cholesterol ([place] diet, advance as tolerated.) Meaningful Use Info [...] months would recommend following up with a repair miller. Discharge Orders/Prescriptions Prescriptions: New amoxicillin-pot clavulanate 875-125 [...] Qty: 25 3RF Referrals / Follow Up: [facility] [Provider Group] - Within 3 Months Sergei Henley MD [Primary Care Provider] - Within 2 Weeks Disposition Disposition (needs filled in before D/C Order can be placed): Home, Self Care Charges/Coding Visit Charges Inpatient E&M: 15725 Disch Hosp >30min 06/15/23 1031 <Electronically signed by Rommel Youssef DO> Cosigner Signature (if applicable): CC: Dr. Sergei Henley MD; Dr. Rommel Youssef DO~ Signed [facility] Work Phone: evaluation noteNo assessment information available [facility] Work Phone: Evaluation note* Diagnosis Onset Date Resolution Status Brain TIA acute Chest pain acute History of coronary artery disease acute [facility] Work Phone: Evaluation note* Diagnosis Onset Date Resolution Status Brain TIA acute Chest pain acute History of coronary artery disease acute NSTEMI (non-ST elevated myocardial infarction) acute Atherosclerotic heart diseas e of iroquois coronary artery without angina pectoris chronic Essential hypertension chron ic HLD (hyperlipidemia) [facility] Work Phone: Evaluation note* Diagnosis Onset Date Resolution Status Essential hypertension chron ic HLD (hyperlipidemia) chronic Brain TIA resolved Chest pain resolved NSTEMI (non-ST elevated myoc ardial infarction) resolved Essential hypertension chron ic HLD (hyperlipidemia) chronic Presence of stent in coronary artery April 25, 023 chronic [facility] Work Phone: Evaluation note* Diagnosis Onset Date Resolution Status Essential hypertension chron ic HLD (hyperlipidemia) chronic Brain TIA resolved Chest pain resolved NSTEMI (non-ST elevated myoc ardial infarction) resolved Essential hypertension chron ic HLD (hyperlipidemia) chronic Presence of stent in coronary artery April 25, 023 chronic Intractable abdominal pain a cute Sigmoid diverticulitis acute Essential hypertension chron ic Presence of stent in coronary artery April 25, [facility] Work Phone: Evaluation note* Diagnosis Onset Date Resolution Status HLD (hyperlipidemia) chronic Brain TIA resolved Chest pain resolved NSTEMI (non-ST elevated myocardial infarction) resolved HLD (hyperlipidemia) chronic Sigmoid diverticulitis acute Intractable abdominal pain r esolved [facility] Work Phone: Evaluation note* Diagnosis Onset Date Resolution Status Essential hypertension chron ic HLD (hyperlipidemia) chronic Sigmoid diverticulitis acute Essential hypertension chron ic Intractable abdominal pain r esolved GERD (gastroesophageal reflux disease) acute Sigmoid diverticulitis acute Myalgia acute Palpitation acute HLD (hyperlipidemia) chronic Presence of coronary angiopl asty implant and graft April 25, 2023 [facility] Work Phone: Evaluation note* Diagnosis Onset Date Resolution Status Sigmoid diverticulitis acute Essential hypertension chron ic Intractable abdominal pain r esolved GERD (gastroesophageal reflux disease) acute Sigmoid diverticulitis acute Myalgia acute Palpitation acute HLD (hyperlipidemia) chronic Presence of coronary angiopl asty implant and graft April 25, 2023 [facility] Work Phone: History and physical note Author Meliza Ramírez [facility] June 14, 2023 7:41pm Note Date/Time June 14, 2023 7 :41pm [facility] Medical Records Department [address] [place] [id number] H&P Exam - Hospitalist 06/14/231930 MR#: [id number] Acct: [id number] Name: JOVANY MUÑIZ Rep #:[id number] : 1965 57 From: Meliza Ramírez MD PCP: Dr. Sergei Henley MD Status: REG ER Location: ED HPI - General General Date of Admission: 06/14/23 Date of Service: 06/14/23 Chief Complaint: Abdominal pain HPI Narrative JOVANY MUÑIZ, is a 57-year-old male history of hypertension, coronary artery disease with stent placement 2 months ago who presented to [facility] 06/14/2023 with abdominal pain x1 day. Due [...] denied any withdrawal symptoms at that time. 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 (04/25/23) Essential hypertension History of coronary artery disease HLD (hyperlipidemia) Old myocardial infarction Presence of stent in coronary artery (04/25/23) Home Medications aspirin 81 mg tablet,delayed release (Adult Low Dose Aspirin) 81 mg PO QDAY [facility] 08/06/17 [History Last Taken 10/30/21] buspirone 5 [...] Unknown] evolocumab 140 mg/mL subcutaneous pen injector (Morro Robert) 140 mg [id number] #2 mL 06/13/23 [Rx Last Taken Unknown] [...] 83.8 H, Lymph % (Auto) 10.2 L, Cherry % (Auto) 2.7, Eos % (Auto) 2.5, [...] Clarity Clear, Urine pH 7.0, Ur Specific [place] 1.010, Urine Protein Negative, Urine Glucose (UA) [...] documentation, 56minutes Charges/Coding Visit Charges Inpatient E&M: 93159 Init Hosp L2 06/14/231940 <Electronically signed by Meliza Ramírez MD> Cosigner Signature (if applicable): CC: Dr. Sergei Henley MD; Dr. Meliza Ramírez MD~ Signed [facility] Work Phone: History and physical note Author Olegario Segal [facility] October 02, 2023 7:28am Note Date/Time October 02, 2023 7:28am [facility] Medical Records Department [address] [place] [address] History & Physical Exam 10/02/23 0725 MR#: [id number] Acct: [id number] Name: JOVANY MUÑIZ Rep #:[id number] : 1965 58 From: Olegario Blackburn PCP: Dr. Sergei Henley MD Status: [facility] Location: [place] [address] History and Physical Date of Admission: 10/02/23 Date of Service: 07/17/23 MR#: [id number] Acct: [id number] Name: JOVANY MUÑIZ Rep #: [id number] : 1965 Provider: Dr. Olegario Segal MD Age/Sex: 57/M Location: [facility] Status: Signed Intake Vital Signs 06/14/2321:15 07/17/2308:17 Height 6 ft 6 ft Weight: 213 lb 2 oz BMI 28.9 BP 125/88 H Blood Pressure Location Rt brachial Position Sitting Respiration 18 Pulse 78 Pulse Source Monitor Temp 97.2 F L Temp Source Temporal Pulse Oximetry (%) 98 Oxygen Delivery Method room air Intake Visit Reasons: DIVERTICULITIS Chief Complaint: Diverticulitis Ethnoarchaeology Professor Required: No Is patient in pain?: No Allergies No Known Allergies Allergy (Verified 07/17/23 08:20) Medications aspirin 81 mg tablet,delayed release (Adult Low Dose Aspirin) 81 mg PO QDAY [facility] 08/06/17 [History Confirmed 07/17/23] coenzyme Q10 100 [...] 07/17/23] evolocumab 140 mg/mL subcutaneous pen injector (Repatha SureClick) 140 mg [id number] #2 mL 06/13/23 [Rx Confirmed 07/17/23] nitroglycerin [...] tab PO DAILY 07/17/23 [History Confirmed 07/17/23] [facility] Medical History (Updated 07/17/23 @ 15:[address] 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 He also [...] that he will need to have a bus driver/monitor with him the day of the procedure. [...] endoscopy as discussed in greater detail above. 10/02/23727 <Electronically signed by Olegario Segal MD> Cosigner Signature (if applicable): CC: Dr. Sergei Henley MD; Dr. Olegario Segal MD~ Signed [facility] Work Phone: Hospital Discharge instructions Additional Instructions All your labs, EKG, chest x-ray were unremarkable. Follow-up with your doctor. Return if you are feeling worse. Nothing bad we can find today.[facility] Work Phone: Reason for referral (narrative)No reason for referral information [facility] Work Phone: Chief Complaint and Reason for Visit Chief Complaint 1 y fu CHEST PAIN Reason for Visit Atherosclerotic hear t disease of iroquois coronary artery without angina pectoris Essential hypertension HLD (hyperlipidemia) Presence of stent in coronary artery Chief Complaint 1 y fu CHEST PAIN CHEST PAIN CHEST PAIN Reason for Visit Atherosclerotic hear t disease of iroquois coronary artery without angina pectoris Essential hypertension [...] elevated myocardial infarction) 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 Essential hypertension HLD (hyperlipidemia) Chief Complaint CHEST PAIN, TIA CHEST PAIN, TIA CHEST PAIN, TIA CHEST PAIN, TIA CHEST PAIN, TIA S/P [facility] 04/25 Reason for Visit Essential hypertensi on HLD (hyperlipidemia) Brain TIA Chest pain NSTEMI (non-ST elevated myocardial infarction) Essential hypertension HLD (hyperlipidemia) Presence of stent in coronary artery Chief Complaint CHEST PAIN, TIA CHEST PAIN, TIA CHEST PAIN, TIA CHEST PAIN, TIA CHEST PAIN, TIA S/P [facility] 15 DIVERTICULITIS Reason for Visit Essential hypertensi on HLD (hyperlipidemia) Brain TIA Chest pain NSTEMI (non-ST elevated myocardial infarction) Essential hypertension HLD (hyperlipidemia) Presence of stent in coronary artery Intractable abdominal pain Sigmoid diverticulitis Essential hypertension Presence of stent in coronary artery Chief Complaint CHEST PAIN, TIA CHEST PAIN, TIA CHEST PAIN, TIA CHEST PAIN, TIA CHEST PAIN, TIA S/P [facility] 15 DIVERTICULITIS DIVERTICULITIS Reason for Visit Essential hypertensi on HLD (hyperlipidemia) Brain TIA Chest pain NSTEMI (non-ST elevated myocardial infarction) Essential hypertension HLD (hyperlipidemia) Presence of stent in coronary artery Intractable abdominal pain Sigmoid diverticulitis Essential hypertension Presence of stent in coronary artery Chief Complaint CHEST PAIN, TIA CHEST PAIN, TIA CHEST PAIN, TIA CHEST PAIN, TIA CHEST PAIN, TIA S/P [facility] 04/25 DIVERTICULITIS DIVERTICULITIS EORDER Reason for Visit HLD (hyperlipidemia) Brain TIA Chest pain NSTEMI (non-ST elevated myocardial infarction) HLD (hyperlipidemia) Sigmoid diverticulitis Intractable abdominal pain Chief Complaint S/P [facility] 04/25 DIVERTICULITIS DIVERTICULITIS EORDER DIVERTICULITIS 3 [...] implant and graft August 06, 2024 1:33pm Chief Complaint Admit Date PALP November 03, 2024 6:1 2am PALP November 03, 2024 6:0 5pm DOT PHYSICAL/SELF PAY (already paid on ) November 09, 2024 5:56am chest pain January 22, 2025 1:46 pm Reason for Visit Admit Date Encounter for 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) November 09, 2024 5:56am Advance Directives Advance Directive Response Recorded Date/ Time Living Will No October 30, 2021 7:09pm Power of Cellophaner No October 30 7:09pm Advance Directive Response Recorded Date/ Time Living Will Yes April 23, 2023 9:57pm Power of Cellophaner Yes April 9:57pm Name of Medical Power of Cellophaner Jesus Muñiz April 23, 2023 9:57pm Advance Directive Response Recorded Date/ Time Name of Medical Power of Cellophaner Ellie Muñiz April 24, 2023 12:15am Living Will Yes April 24, 2023 12:15am Power of Cellophaner Yes April 12:15am Advance Directive Response Recorded Date/ Time Living Will No June 14 5:16pm Power of Cellophaner No June 14, 2023 5:16pm Name of Medical Power of Cellophaner Ellie Muñiz April 24, 2023 12:15am Advance Directive Response Recorded Date/ Time Name of Medical Power of Cellophaner Ellie Muñiz June 14, 2023 8:15pm Living Will Yes June 14 8:15pm Power of Cellophaner Yes June 14, 2023 8:15pm Name of Medical Power of Cellophaner Ellie Muñiz April 23, 2023 11:15pm Advance Directive Response Recorded Date/ Time Name of Medical Power of Cellophaner Ellie Muñiz June 14, 2023 8:15pm Living Will Yes June 14 8:15pm Power of Cellophaner Yes June 14, 2023 8:15pm Advance Directive Response Recorded Date/ Time Name of Medical Power of Cellophaner Ellie Muñiz June 14, 2023 8:15pm Name of Medical Power of Cellophaner September 25, 2023 3:03pm Living Will Yes September 25, 024 3:03pm Power of Cellophaner Yes September 25, 2023 3:03pm Advance Directive Response Recorded Date/ Time Living Will Yes April 24, 2023 12:15am Do you have a Healthcare Pow er of Cellophaner? Yes April 24, 2023 12:15am Living Will Yes September 03 1:26am Do you have a Healthcare Pow er of Cellophaner? Yes September 03, 2024 1:26am Name of Medical Power of Cellophaner ELLIE MUÑIZ September 03, 2024 1:26am Advance Directive Response Recorded Date/ Time Do you have a Healthcare Power of Cellophaner? Yes January 22, 2025 2:10pm Name of Medical Power of Cellophaner Ellie Muñiz January 22, 2025 2:10pm Summary Purpose Family History No Family History [...] Provider Active Dr. Rommel Youssef DO Attending Provider, Other Provid er Active Team Status: Active Member Role Status Dates Dr. Sergei Henley MD Primary Care Provider Activ e Dr. Perez Dave DO Emergency Provider Active Dr. Ar Torres MD Admit Provider, Other Provide r Active Dr. Jose Lockwood MD Attending Provider, Other Provide r Active Dr. Rommel Youssef DO Other Provider Active Team Status: Inactive Member [...] Provider, Refe rring Provider Active Mitchell Dubois RADIOLOGY TECHNICIAN, RADIOLOGY TECHNICIAN-C Attending Provider Active Team Status: Inactive Member [...] Sergei Henley MD Primary Care Provider Activ venu Swenson MD Emergency Provider Active Dr. Meliza Ramírez MD Admit Provider, Other Provider A ctive Dr. Rommel Youssef DO Attending Provider Active Team Status: Inactive Member Role Status Dates Dr. Sergei Henley MD Primary Care Provider Activ e Mitchell Dubois RADIOLOGY TECHNICIAN, RADIOLOGY TECHNICIAN-C Attending Provider, Referring Pro vider Active Team [...] 2024 End: November 03, 2024 Mitchell Dubois RADIOLOGY TECHNICIAN, RADIOLOGY TECHNICIAN-C Attending Provider Active S tart: November 03, 2024 End: November 03, 2024 Mitchell Dubois RADIOLOGY TECHNICIAN, RADIOLOGY TECHNICIAN-C Referring Provider Active S tart: November 03, 2024 End: November 03, 2024 Team Status: Active Member Role Status Dates Dr. Eduard Henley MD Primary Care Provider Acti ve Start: November 03, 2024 Mitchell Dubois RADIOLOGY TECHNICIAN, RADIOLOGY TECHNICIAN-C Referring Provider Active S tart: November 03, 2024 Mitchell Dubois RADIOLOGY TECHNICIAN, RADIOLOGY TECHNICIAN-C Other Provider Active Start : November 03, 2024 Dr. Jose Lockwood MD Attending Provider Active S tart: November 03, 2024 Team Status: Inactive Member Role Status Dates Dr. Eduard Henley MD Primary Care Provider Acti ve Start: November 09, 2024 End: November 09, 2024 Dr. Eduard Henley MD Referring Provider Active Start: November 09, 2024 End: November 09, 2024 Mg JEWELL, PA Attending Provider Active Start: November 09, 2024 End: November 09, 2024 Team Status: Inactive Member Role Status Dates Dr. Eduard Henley MD Primary Care Provider Acti ve Start: January 22, 2025 End: January 22, 2025 Dr. Robert Mercer MD Emergency Provider Active S tart: January 22, 2025 End: January 22, 2025 (unrecognized sect ion and content) No Status Records Found INFORMATION SOURCE (unrecogn ized section and content) DATE CREATED AUTHOR 11/10/2024 [facility] FOR RECORDS PERTAINING TO PATIENTS WHO ARE [...] BE BASED ON THE PRIMARY CLINICAL RECORDS. [employer] provides no warranty or guarantee of the accuracy or completeness of information in this document.
[2025-01-22 21:30] VITALS: BP 130/77; PULSE 109; RESP 18; O2SAT 100
[2025-01-22 22:00] VITALS: BP 133/72; PULSE 107; RESP 16; O2SAT 98
[2025-01-22 22:23] VITALS: BP 120/77; PULSE 104; RESP 13; TEMP 36.6; O2SAT 98
== END 2025-01-22 22:27 | disposition home or self-care (01) ==
PROVIDERS: Emergency Provider Emergency Medicine; PCP Family Medicine; Visit Provider Emergency Medicine
DX: L50.0 Allergic urticaria (principal); I25.10 Atherosclerotic heart disease of native coronary artery without angina pectoris; I25.2 Old myocardial infarction; I10 Essential (primary) hypertension; Z95.5 Presence of coronary angioplasty implant and graft; Z79.02 Long term (current) use of antithrombotics/antiplatelets; Z79.82 Long term (current) use of aspirin; Z79.899 Other long term (current) drug therapy; Z87.891 Personal history of nicotine dependence
CPT/HCPCS: 96374; 99284; A4216

== ENCOUNTER 2025-01-27 15:40 | Outpatient (CLI) | payer OTHER, SELFPAY ==
[2025-01-27 18:03] LABS: Cholesterol 251 mg/dL (<=200); High Density Lipoprotein 89 mg/dL; Low Density Lipoprotein Calc. 131 mg/dL; Triglycerides 156 mg/dL; Very Low Density Lipoprotein 31 mg/dL (5-40); Vitamin B12 743 pg/mL (180-914); cholesterol:hdl ratio screen 2.83
[2025-02-01 20:08] LABS: Beef <0.10 kU/L (Class 0); Chocolate <0.10 kU/L (Class 0); Codfish <0.10 kU/L (Class 0); Corn <0.10 kU/L (Class 0); Egg, Whole <0.10 kU/L (Class 0); Milk (Cow) <0.10 kU/L (Class 0); Mussels <0.10 kU/L (Class 0); Peanut <0.10 kU/L (Class 0); Pork <0.10 kU/L (Class 0); Salmon <0.10 kU/L (Class 0); Soybean <0.10 kU/L (Class 0); Tuna <0.10 kU/L (Class 0); Wheat <0.10 kU/L (Class 0)
== END 2025-01-27 23:59 | disposition home or self-care (01) ==
LOC: MFPLAB 15:44
PROVIDERS: PCP Family Medicine; Referring Provider Family Medicine; Visit Provider Family Medicine
DX: E78.5 Hyperlipidemia, unspecified (principal); E53.9 Vitamin B deficiency, unspecified
CPT/HCPCS: 36415; 80061; 82607; 86003; 86005

== ENCOUNTER 2025-06-09 19:36 | Observation (INO) | payer OTHER, SELFPAY ==
[2025-06-09] VITALS (22 sets, daily range): BP systolic 96–140; BP diastolic 71–87; PULSE 80–97; RESP 14–20; TEMP 36.4–36.7; O2SAT 95–98; BMI 26.4; BMI 26.0
--- NOTE | 2025-06-09 20:10 | CT_ITS ---
PROCEDURE: CT ABDOMEN/PELVIS W IV CONT ONLY 06/09/2025 REASON FOR EXAM: LOWER ABD PAIN AND SYNCOPE TECHNIQUE: Procedure Code: [id number] Modality: CT Procedure: ABDOMEN/PELVIS W IV CONT ONLY Coronal and Sagittal reconstruction series were provided. CONTRAST: Isovue 370 VOLUME: 95 mL One or more dose reduction techniques were used (e.g., Automated exposure control, adjustment of the mA and/or kV according to patient size, use of iterative reconstruction technique. RADIATION DOSE SUMMARY: DLP: 969.71 mGycm COMPARISON: None available. FINDINGS: Lung bases: Clear. Mild dependent atelectasis. Liver: Mild hepatic steatosis, otherwise unremarkable. Gallbladder: Unremarkable. No biliary ductal dilatation. Spleen: Unremarkable. Pancreas: Unremarkable. Adrenals: Unremarkable Kidneys: Unremarkable. No urolithiasis or hydronephrosis. Bladder: Unremarkable. Reproductive Organs: Unremarkable, nonenlarged prostate. Bowel: Unremarkable stomach and small bowel. No evidence of obstruction. Normal appendix. Moderate distal colonic diverticulosis with segmental wall thickening of the sigmoid colon, suggestive of mild acute segmental colitis versus uncomplicated diverticulitis. Lymph nodes: No suspicious lymph node enlargement. Vasculature: Mild undulating aneurysmal dilatation of the infrarenal abdominal aorta, measuring up to 2.7 cm in maximal diameter. No dissection. Moderate atherosclerotic disease. Peritoneum / Retroperitoneum: No ascites or free air. Bones: Mild multilevel degenerative changes of the spine. CT/Abdomen/Pelvis W IV Cont ONLY IMPRESSION: 1. Moderate distal colonic diverticulosis, with probable mild acute segmental c olitis versus uncomplicated diverticulitis of the sigmoid colon. 2. Mild undulating aneurysmal dilatation of the infrarenal abdominal aorta. Reading Location: [id number]
--- NOTE | 2025-06-09 20:11 | EKG12_ITS ---
Test Reason : DYSRHYTHMIA Blood Pressure : */* mmHG Vent. Rate : 81 BPM Atrial Rate : 81 BPM P-R Int : 184 ms QRS Dur : 84 ms QT Int : 374 ms P-R-T Axes : 56 -39 15 degrees QTcB Int : 434 ms Normal sinus rhythm Left axis deviation Low voltage QRS Inferior infarct , age undetermined Abnormal ECG Confirmed by JAY SY, EZIO ([id number]), tape editor RUBI ROMERO ([id number]) on 06/11/2025 8:02:31 AM Referred By: RITO Confirmed By: EZIO THOMPSON MD
--- NOTE | 2025-06-09 20:12 | EX.ED.DYSGE1 ---
HPI History of Present Illness Chief Complaint: Syncope Informant: patient and spouse/S.O. Onset/Context/Timing Onset: Today Context: Sudden Onset Timing: Intermittent Current Severity: Gone Maximum Severity: Moderate Narrative Narrative: 59-year-old male history of NV CAD with stent on Plavix and aspirin. Patient feeling fine. Denies recent illness. He wanted to have a bowel movement it was done with a bowel movement stood up pulled his pants up and had a syncopal episode. heard him fall out of the floor. And said she went to open the door he was leaning against the door she said he was diaphoretic and unresponsive. But he was breathing. He had a second episode because he [place] get up to get on the toilet again. And then the third. He typically has not had syncopal events. He has a no history of cardiac dysrhythmia. He denies recent illness or melena. He denies any other complaints he denies a headache, chest pain or shortness of breath. He has some mild abdominal discomfort. Said has been feeling fine recently other than some mild diarrhea after using magnesium. Prior similar symptoms: No Recent Illness/Hospitalization: No PFSH PFS Medical History Wears partial dentures High cholesterol Heartburn Gastric reflux History of diverticulitis Former smoker History of heart attack History of echocardiogram History of stress test Hypertension Cardiology follow-up encounter Sigmoid diverticulitis History of coronary artery disease Presence of stent in coronary artery (04/25/23) Essential hypertension HLD (hyperlipidemia) Old myocardial infarction Atherosclerotic heart disease of [place] coronary artery without angina pectoris (04/25/23) Home Medications ?Medication ?Instructions ?Recorded ?Last Taken ?Type aspirin 81 mg tablet,delayed 81 mg PO QDAY [facility] 08/06/17 06/09/25 History release (Adult Low Dose Aspirin) cetirizine 10 mg tablet 10 mg PO PRN allergy symptoms 05/20/23 Unknown History nitroglycerin 0.4 mg sublingual 0.4 mg sublingual Q5-15M PRN CHEST 06/13/23 Unknown Rx tablet (Nitrostat) PAIN #25 tabs acetaminophen 500 mg capsule 1,000 mg PO Q8H PRN fever or pain 06/09/25 06/09/25 History epinephrine 0.3 mg/0.3 mL 0.3 mg IM PRN allergy to scallops 06/09/25 Unknown History injection, auto-injector essential 1 ea PO DAILY 06/09/25 06/09/25 History inclisiran 284 mg/1.5 mL 284 mg subcut .COMPLEX 06/09/25 06/03/25 History subcutaneous syringe (Leqvio) losartan 100 mg tablet 100 mg PO DAILY 06/09/25 06/09/25 History psyllium husk-calcium 1 gram-60 mg 2 cap PO QHS 06/09/25 06/09/25 History capsule (Metamucil Plus Calcium) Allergy/AdvReac Type Severity Reaction Status Date / Time shrimp Allergy Severe Anaphylaxis Verified 06/09/25 19:37 scallops Allergy Anaphylaxis Verified 06/09/25 19:37 Family History Grandfather , age 76 CVA (cerebral vascular accident) Surgical History History of coronary artery stent placement History of cardiac catheterization Presence of coronary angioplasty implant and graft (04/25/23) History of left heart catheterization (~12/2010) Social History Smoking Status: Former smoker how long ago did patient quit smokin alcohol intake: current alcohol intake frequency: 0-2 drinks per day Alcohol type: beer substance use type: does not use caffeine: Yes Type: coffee Number of servings: 2 what type of physical activity do you participate in: none seatbelt use: sometimes do you feel safe at home: Yes ROS ROS ED ROS Narrative Denies recent illness or and some diarrhea after using magnesium. Constitutional Constitutional ED: Denies chills or fever(s) Eyes Eyes: Denies blurry vision ENT ENT ED: Denies ear pain Cardiovascular Cardiovascular: Denies chest pain Respiratory/Chest Respiratory/Chest: Denies cough or dyspnea Gastrointestinal Gastrointestinal: Reports abdominal pain and diarrhea; Denies nausea or vomiting Genitourinary Genitourinary ED: Denies dysuria or hematuria Musculoskeletal Musculoskeletal: Denies arthralgias Integumentary Denies abscess Neurologic Neurologic: Denies headache(s) Psychiatric Psychiatric: Denies anxiety or depression Hematologic/Lymphatic Hematologic/Lymphatic: Reports none Allergic/Immunologic Allergic/Immunologic ED: Denies mouth swelling, tongue swelling or urticaria EXAM Physical Exam Narrative Exam Narrative: 59-year-old male vital signs stable afebrile. No acute distress. Sitting upright in bed. at bedside. Blood pressure 100/73. Pulse ox 96% on room air no hypoxia. H EENT exam pupils round react light. Moist mucous membranes. Neck nontender no JVD. No signs of trauma to her face or scalp. Nontender. Back nontender. Lungs clear to auscultation bilaterally. Heart regular rhythm rate about 80 no murmur. Chest wall ribs nontender. Abdomen soft nondistended normal bowel sounds peritoneal signs. Minimal right lower quadrant tenderness. Moving all 4 extremities. 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 Normal dorsi plantarflexion. Nontender no edema. No deformity. Normal range of motion. Neurologically he is awake alert. Answering questions following commands. NIH is 0. Patient really does not remember the episodes. Const Vital Signs: 06/09/25 19:36 06/09/25 19:41 06/09/25 19:45 Temperature 97.6 F L Temperature Source Oral Pulse Rate 80 80 Pulse Rate [Lying] Pulse Rate [Sitting (for 1 minute prior to obtaining)] Pulse Rate [Standing (for 1 minute prior to obtaining)] Respiratory Rate 16 18 Blood Pressure 100/73 96/72 Blood Pressure [Lying] Blood Pressure [Sitting (for 1 minute prior to obtaining)] Blood Pressure [Standing (for 1 minute prior to obtaining)] Blood Pressure Mean 82 81 Blood Pressure Mean [Lying] Blood Pressure Mean [Sitting (for 1 minute prior to obtaining)] Blood Pressure Mean [Standing (for 1 minute prior to obtaining)] Pulse Ox 96 98 Oxygen Delivery Method 06/09/25 20:00 06/09/25 20:15 06/09/25 20:30 Temperature Temperature Source Pulse Rate 82 82 Pulse Rate [Lying] Pulse Rate [Sitting (for 1 minute prior to obtaining)] Pulse Rate [Standing (for 1 minute prior to obtaining)] Respiratory Rate 20 H 18 Blood Pressure 103/71 113/79 103/72 Blood Pressure [Lying] Blood Pressure [Sitting (for 1 minute prior to obtaining)] Blood Pressure [Standing (for 1 minute prior to obtaining)] Blood Pressure Mean 81 90 82 Blood Pressure Mean [Lying] Blood Pressure Mean [Sitting (for 1 minute prior to obtaining)] Blood Pressure Mean [Standing (for 1 minute prior to obtaining)] Pulse Ox 95 96 Oxygen Delivery Method 06/09/25 20:30 06/09/25 20:30 06/09/25 20:39 Temperature Temperature Source Pulse Rate 85 Pulse Rate [Lying] Pulse Rate [Sitting (for 1 minute prior to obtaining)] Pulse Rate [Standing (for 1 minute prior to obtaining)] Respiratory Rate 18 Blood Pressure 103/72 103/72 Blood Pressure [Lying] Blood Pressure [Sitting (for 1 minute prior to obtaining)] Blood Pressure [Standing (for 1 minute prior to obtaining)] Blood Pressure Mean 82 82 Blood Pressure Mean [Lying] Blood Pressure Mean [Sitting (for 1 minute prior to obtaining)] Blood Pressure Mean [Standing (for 1 minute prior to obtaining)] Pulse Ox 96 Oxygen Delivery Method Room Air 06/09/25 20:45 06/09/25 20:50 06/09/25 20:51 Temperature Temperature Source Pulse Rate 89 Pulse Rate [Lying] 88 Pulse Rate [Sitting (for 1 minute prior to obtaining)] 90 Pulse Rate [Standing (for 1 minute prior to obtaining)] 97 Respiratory Rate Blood Pressure 115/77 117/79 Blood Pressure [Lying] 117/79 Blood Pressure [Sitting (for 1 minute prior to obtaining)] 113/75 Blood Pressure [Standing (for 1 minute prior to obtaining)] 110/77 Blood Pressure Mean 88 90 Blood Pressure Mean [Lying] 91 Blood Pressure Mean [Sitting (for 1 minute prior to obtaining)] 87 Blood Pressure Mean [Standing (for 1 minute prior to obtaining)] 88 Pulse Ox 95 97 Oxygen Delivery Method 06/09/25 20:51 06/09/25 20:52 06/09/25 21:00 Temperature Temperature Source Pulse Rate 91 95 Pulse Rate [Lying] Pulse Rate [Sitting (for 1 minute prior to obtaining)] Pulse Rate [Standing (for 1 minute prior to obtaining)] Respiratory Rate 14 20 H Blood Pressure 113/75 110/77 114/79 Blood Pressure [Lying] Blood Pressure [Sitting (for 1 minute prior to obtaining)] Blood Pressure [Standing (for 1 minute prior to obtaining)] Blood Pressure Mean 87 87 89 Blood Pressure Mean [Lying] Blood Pressure Mean [Sitting (for 1 minute prior to obtaining)] Blood Pressure Mean [Standing (for 1 minute prior to obtaining)] Pulse Ox 97 96 Oxygen Delivery Method 06/09/25 21:15 06/09/25 21:30 06/09/25 22:00 Temperature Temperature Source Pulse Rate 90 87 Pulse Rate [Lying] Pulse Rate [Sitting (for 1 minute prior to obtaining)] Pulse Rate [Standing (for 1 minute prior to obtaining)] Respiratory Rate 18 18 Blood Pressure 114/74 111/75 135/84 H Blood Pressure [Lying] Blood Pressure [Sitting (for 1 minute prior to obtaining)] Blood Pressure [Standing (for 1 minute prior to obtaining)] Blood Pressure Mean 86 87 99 Blood Pressure Mean [Lying] Blood Pressure Mean [Sitting (for 1 minute prior to obtaining)] Blood Pressure Mean [Standing (for 1 minute prior to obtaining)] Pulse Ox Oxygen Delivery Method MDM MDM MDM Narrative Medical decision making narrative: 59-year-old male was on the toilet at home and a syncopal event and then a second and then the third. Prior to the syncope he was not having any complaints. No prior history. Denies any chest pain. No headache or significant abdominal pain. Some mild right lower quadrant discomfort. Repeat exam patient's doing well at 11:15 PM. We discussed his test results.. This is either a colitis or or a diverticulitis. This does not explain his 3 syncopal episodes. They are comfortable with him being admitted to the hospital overnight. I will the talk to hospitalist about starting antibiotics for his diverticulitis. And further evaluation of the syncope. He will be given morphine for pain. History & Record Review Discussion w/independent historian: Patient and Family Additional record(s) reviewed:: Prior inpatient record, Prior outpatient record, Prior ED visit and Prior labs Lab Data Attestation: I reviewed the patient's lab results. Lab results narrative: CBC shows white count of 5. H&H 13 and 38. Platelets 234. Electrolytes show a gap of 16. BUN and creatinine are 14 and 0.9. Glucose 141. Liver enzymes are normal. Troponin less than 6. 2-hour troponin less than 6. Urinalysis is negative. Chest x-ray unremarkable. EKG unremarkable. Labs: Laboratory Results - last 24 hr 06/09/25 06/09/25 06/09/25 19:40 21:04 21:45 WBC 5.0 RBC 3.92 L Hgb 13.0 Hct 38.7 L MCV 98.7 H MCH 33.2 H MCHC 33.6 RDW Std Deviation 46.5 H RDW Coeff of Leticia 12.9 Plt Count 234 MPV 9.9 Immature Gran % (Auto) 0.800 Neut % (Auto) 47.1 Lymph % (Auto) 35.7 [place] % (Auto) 11.6 H Eos % (Auto) 4.0 Baso % (Auto) 0.8 Absolute Neuts (auto) 2.4 Absolute Lymphs (auto) 1.79 Nucleated RBC % 0 Sodium 135 Potassium 3.4 Chloride 100 Carbon Dioxide 19.5 L Anion Gap 16 H BUN 14 Creatinine 0.98 Estim Creat Clear Calc 86.88 Est GFR (MDRD) Non-Af 87 BUN/Creatinine Ratio 14.5 Glucose 141 H Calcium 9.0 Total Bilirubin 0.28 Direct Bilirubin 0.13 AST 26 ALT 19 Alkaline Phosphatase 63 Troponin T High Sens < 6 Troponin T Hi Sens 2 Hr < 6 Total Protein 7.0 Albumin 3.7 Globulin 3.3 Urine Color Straw Urine Clarity Clear Urine pH 6.0 Ur Specific [place] 1.010 Urine Protein 15 H Urine Glucose (UA) Normal Urine Ketones Negative Urine Occult Blood Negative Urine Nitrite Negative Urine Bilirubin Negative Urine Urobilinogen Normal Ur Leukocyte Esterase Negative Urine RBC 0 SEEN Urine WBC 0-5 SEEN Ur Squamous Epith Cells 0-5 SEEN Urine Bacteria RARE Hyaline Casts 0-5 SEEN Urine Mucus 0 SEEN Radiography Chest X-Ray - ED: 1 View, Read by ED Physician, Normal, Heart, Lungs, Mediastinum, Bony Structures, No Acute Disease and Chronic Changes Diagnostic Testing: Clinical Impression(s) from Imaging Studies Abdomen/Pelvis CT 06/09/25 20:10 IMPRESSION: 1. Moderate distal colonic diverticulosis, with probable mild acute segmental colitis versus uncomplicated diverticulitis of the sigmoid colon. 2. Mild undulating aneurysmal dilatation of the infrarenal abdominal aorta. Reading Location: [facility] Chest X-Ray 06/09/25 20:37 IMPRESSION: No Acute Findings. [facility] x-ray, portable, single view turbid by myself and radiology shows normal cardiac silhouette. Normal mediastinum. Normal lung osman. No acute process. Chronic changes. Rhythm Strip Rhythm Strip: Sinus Rhythm Rate: 81 Ectopy: None EKG Initial EKG: Attestation: I personally reviewed and interpreted this EKG as follows: Interpretation: Sinus Rhythm and No Acute Injury Pattern Comments: Normal sinus rhythm rate 81 no acute signs of NV or ischemia. Low voltage. Discharge Plan Dx/Rx/DC Orders Clinical Impression: Syncope and collapse, History of NV (myocardial infarction), Diverticulitis Disposition Disposition: Acute Care Hospital [facility]
--- OUTSIDE RECORDS SUMMARY | 2025-06-09 20:20 | XMS RPT_ITS | CCD ---
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 Sergei Henley Primary Care Provider Dr. Sergei Henley Referring Provider Troy ESCUEDRO, EUGENIA Miranda Attending Provider Dr. Rommel Lieberman [...] Provider Dr. Sergei Henley Referring Provider Roof STATOR WINDER, STATOR WINDER-C Mitchell Harvey Attending Provider Dr. Sergei Henley Primary Care Provider Dr. Perez Dave Emergency Provider Dr. Ar Torres Admit Provider Dr. Ar Torres Attending Provider Dr. Ar Torres Other Provider Dr. Jose Lockwood Other Provider Dr. Rommel Youssef Other Provider Dr. Rommel Youssef Attending Provider Dr. Jose Lockwood Attending Provider [phone] Sergei Henley Referring Provider Sherly STATOR WINDER, STATOR WINDER-C Mitchell Harvey Attending Provider MD Donta Swenson Emergency Provider Dr. Meliza Ramírez Admit Provider Dr. Meliza Ramírez Other Provider Dr. Sergei Henley Primary Care Provider Dr. Rommel Youssef Attending Provider Dr. Rommel Youssef Other Provider Dr. Olegario Segal Attending Provider Dr. Sergei Henley Primary Care Provider Dr. Sergei Henley Referring Provider Sherly STATOR WINDER, STATOR WINDER-Cliff Harvey Attending Provider Dr. Olegario Segal Referring Provider Dr. Olegario Segal Other Provider Dr. Eduard Henley MD Primary Care Provider Dr. Eduard Henley MD Referring Provider Dr. Jose Lockwood MD Attending Provider Nick ABARCA, Dr. Lee Attending Provider Nick ABARCA, Dr. Lee Emergency Provider [phone] Flor SY, Dr. Arellano Attending Provider Flor SY, Dr. Arellano Referring Provider Kale SY, Dr. Chapa Attending Provider [phone] Roof STATOR WINDER-C, Mitchell H Attending Provider Roof STATOR WINDER-C, Mitchell H Referring Provider Roof STATOR WINDER-C, Mitchell H Other Provider Kale SY, Dr. Chapa Primary Care Provider Kale SY, Dr. Chapa Referring Provider Mandie SY, Dr. Garcia Attending Provider [phone] Mg Rico Attending Provider Ruslan SY, Dr. Jones Emergency Provider Kale SY, Dr. Chapa Primary Care Provider Kale SY, Dr. Chapa Referring Provider Ruslan SY, Dr. Jones Attending Provider Kale SY, Dr. Chapa Attending Provider [phone] Roof STATOR WINDER, Mitchell H Attending Unavailable Kale, Eduard Referring Unavailable Ranney, Christopher Primary Care Unavailable Mg Rico Attending Unavailable Eduard Henley Referring Unavailable Ranney, Christopher Primary Care Unavailable Eduard Henley Attending Unavailable Eduard Henley Referring Unavailable Ranney, Christopher Primary Care Unavailable Ranney, Christopher Primary Care Unavailable Eileen Ray Attending Unavailabl Eileen Hall Referring UnavailRobert Rice Attending Unavailable Kale, Christopher Primary Care Unavailable Robert Mercer Attending Unavailable Rannic, Christopher Primary Care Unavailable Ranney, Christopher Primary Care Unavailable Jesus Romero Attending Unavailable Eduard Henley Attending Unavailable Ranney, Christopher Referring Unavailable Ranney, Christopher Primary Care Unavailable Roof STATOR WINDER, Mitchell Harvey Attending Unavailable Sherly STATOR WINDER, Mitchell H Referring Unavailable Eduard Henley Primary Care Unavailable Jose Lockwood Attending Unavailable Sherly STATOR WINDER, Mitchell Harvey Consulting Unavailable Sherly STATOR WINDER, Mitchell Harvey Referring Unavailable Eduard Henley Primary Care Unavailable Eduard Henley Primary Care Unavailable Eileen Ray Attending Unavailabl e Flor, Nunoapradee Referring Unavailabl e Eduard Henley Primary Care Unavailable Akua Vang Attending Unavailable Eduard Henley Referring Unavailable Eduard Henley Primary Care Unavailable Jose Lockwood Attending Unavailable Eduard Henley Referring Unavailable Kale SY, Dr. Chapa Primary Care Physicia n Ruslan SY, Dr. Jones Attending Physician Ruslan SY, Dr. Jones Emergency Department Physici an Kale SY, Dr. Chapa Attending Physician Kale SY, Dr. Chapa Referring Provider Sherly STATOR WINDER-CMitchell Attending Physician Allergies Allergy Classification Reported Allergen(s) Allergy Type Date of Onset Reaction(s) Facility (3 sources) shrimp allergenic extract Drug Allergy 01-22-2025 Anaphylaxis [facility] (1 source) Scallop - dietary Drug allergy (disorder) 05-05-2025 [facility] Repository (1 source) Shrimp product Drug allergy (disorder) 05-05-2025 [facility] Repository (1 source) scallop allergenic extract Drug Allergy 05-05-2025 Anaphylaxis [facility] Medications Current Medications Medication Drug Class(es) Dates Sig (Normalized) Sig (Original) acetaminophen 500 mg oral capsule (9 sources) Start: 06-15-2023 take 2 capsules by mouth every eight hours as needed for pain Acetaminophen 500 mg capsule Active 1000 mg PO EVERY 8 HOURS NEEDED as needed for fever or pain June 15, 2023 11:28am Complies with drug therapy Start: 06-15-2023 take 1000 mg by mout h every eight hours as needed Acetaminophen Active 1000 MG PO EVERY 8 HOURS NEEDED June 15, 2023 10:28am aspirin 81 mg delayed release oral tablet (20 sources) Nonsteroidal Anti-inflammatory Drug Start: 08-06-2017 Aspirin (Adult Lo w Dose Aspirin) 81 mg tablet,delayed release (DR/EC) Active 81 mg PO daily August 06, 2017 1:00am [facility] Complies with drug therapy Start: 11-27-2011 take 1 tablet by kolton th once daily ASPIRIN 81 MG TABS One tablet by mouth daily ASPIRIN [id number] Elizabet Sridevi Avila Start: 11-27-2011 take 1 tablet by kolton th once daily ASPIRIN 81 MG TABS One tablet by mouth daily ASPIRIN [id number] Elizabet Avila Start: 11-27-2011 take 1 tablet by kolton th once daily ASPIRIN EC 81 MG TBEC One tablet by mouth daily ASPIRIN [id number] Bhavani Ralph PA-C cetirizine hydrochloride 10 mg oral tablet (11 sources) Histamine-1 Receptor Antagonist Start: 05-20-2023 take 1 tablet by mouth once daily as needed Cetirizine 10 mg tablet Active 10 mg PO DAILY as needed for allergy symptoms May 20, 2023 12:00am Complies with drug therapy clopidogrel 75 mg oral tablet (20 sources) [id number] Platelet Inhibitor Start: 04-19-2024 End: 07-20-2024 take 1 tablet by mouth once daily Clopidogrel (Plavix) 75 mg tablet Active 75 mg PO daily 90 July 20, 2024 12:09pm Complies with drug therapy Start: 05-20-2023 End: 04-19-2024 take 2 tablets by mouth once daily Clopidogrel (Plavix) 75 mg tablet Discontinued 75 mg PO daily 93 3 May 20, 2023 12:00am April 19, 2024 9:15am 300mg (4 pills) on day one followed by 75mg (1 pill) daily starting day two Start: 08-06-2017 End: 04-25-2023 take 1 tablet by mouth once daily Clopidogrel 75 mg tablet Discontinued 75 mg PO daily 90 90 0 August 06, 2017 1:00am April 25, 2023 12:07pm anti platelet Start: 11-27-2011 take 1 tablet by kolton th once daily PLAVIX 75 MG TABS One tablet by mouth daily CLOPIDOGREL BISULFATE [id number] Elizabet Avila 1 ml evolocumab 140 mg/ml auto-injector (4 sources) PCSK9 Inhibitor Start: 06-13-2023 Evolocumab (Repatha Barryclick) 140 mg/mL pen injector Active 140 MG SC every 2 weeks June 12, 2023 11:00pm On Hold: 09/11/2023- ? Side Effects losartan potassium 50 mg oral tablet (20 sources) Angiotensin 2 Receptor Robert Start: 08-06-2024 take 2 tablets by mouth once daily Losartan 50 mg tablet Active 100 mg PO DAILY August 06, 2024 2:50pm Complies with drug therapy Start: 04-23-2023 End: 08-06-2024 take 1 tablet by mouth once daily Losartan 50 mg tablet Discontinued 50 mg PO DAILY May 20, 2023 1:31pm August 06, 2024 2:52pm nitroglycerin 0.4 mg sublingual tablet (20 sources) Nitrate Vasodilator Start: 06-13-2023 End: 06-13-2023 Nitroglycerin (Nitrostat) 0.4 mg tablet, sublingual Active 0.4 mg SL every 5 to 15 minutes as needed for CHEST PAIN 02 11June 13, 2023 10:53am Complies with drug therapy Start: 06-13-2023 End: 06-13-2023 Nitroglycerin (Nitrostat) 0. [...] 5 min up to 3 X NITROGLYCERIN [id number] Brain Whyte MD Start: 11-27-2011 NITROGLYCERIN 0.4 MG/HR PT24 1 tablet under tongue every 5 min up to 3 X NITROGLYCERIN [id number] Elizabet Avila pantoprazole 40 mg delayed release oral tablet (10 sources) Proton Pump Inhibitor Start: 10-08-2023 End: 08-06-2024 take 1 tablet by mouth once daily Pantoprazole 40 mg tablet,delayed release (DR/EC) Active 20 mg PO DAILY August 06, 2024 2:50pm Take one tablet by mouth daily Complies with drug therapy pitavastatin calcium 1 mg oral tablet (6 sources) HMG-CoA Reductase Inhibitor Start: 05-05-2025 take 0.5 mg by mouth once daily Pitavastatin Calcium 1 mg tablet Active 0.5 mg PO daily May 05, 2025 9:17am Complies with drug therapy Start: 08-06-2024 End: 05-05-2025 take 1 tablet by mouth once daily Pitavastatin Calcium 1 mg tablet Discontinued 1 mg PO daily August 06, 2024 1:00am May 05, 2025 9:17am Completed/Discontinued Medications Medication Drug Class(es) Dates Sig (Normalized) Sig (Original) amoxicillin 500 mg oral capsule (5 sources) Penicillin-class Antibacterial Start: 07-07-2010 End: 07-14-2010 take 1 tablet by mouth twice daily AMOXICILLIN 500 MG CAPS One tablet by mouth twice daily AMOXICILLIN [id number] Latisha Zayas PA-C amoxicillin 875 mg / clavulanate 125 mg oral tablet (9 sources) Penicillin-class Antibacterial Start: 06-15-2023 End: 07-17-2023 Amoxicillin-Pot Clavulanate 875-125 mg tablet Discontinued 1 {tbl} PO Q12H 14 0 June 15, 2023 12:00am July 17, 2023 9:20am Start: 06-15-2023 End: 07-17-2023 take 1 tablet by mouth every twelve hours Amoxicillin-Pot Clavulanate Discontinued 1 TABLET PO Q12H June 14, 2023 11:00pm July 17, 2023 8:20am atorvastatin 80 mg oral tablet (12 sources) HMG-CoA Reductase Inhibitor Start: 04-25-2023 End: 05-05-2023 take 1 tablet by mouth at bedtime Atorvastatin 80 mg Tablet Discontinued 80 mg PO AT BEDTIME 30 0 April 25, 2023 12:00am May 05, 2023 4:32pm On Hold: Myalgias, diarrhea busPIRone hydrochloride 5 mg oral tablet (13 sources) Start: 04-23-2023 End: 07-17-2023 take 1 tablet by mouth twice daily Buspirone 5 mg tablet Discontinued 5 mg PO TWICE A DAY April 23, 2023 12:00am July 17, 2023 9:20am cholecalciferol 0.025 mg oral capsule (10 sources) Vitamin D Start: 06-14-2023 End: 08-06-2024 take 1 capsule by mouth twice daily Cholecalciferol (Vitamin D3) 25 mcg (1,000 unit) capsule Discontinued 1000 U PO TWICE A DAY June 14, 2023 12:00am August 06, 2024 2:51pm clonazePAM 0.5 mg oral tablet (20 sources) Benzodiazepine Start: 08-06-2017 End: 07-28-2018 take 1 tablet by mouth twice daily Clonazepam 0.5 mg tablet Discontinued 0.5 mg PO TWICE A DAY 30 10 0 August 06, 2017 1:00am July 28, 2018 9:30am Start: 11-27-2011 take 1 tablet by kolton three times daily as needed KLONOPIN 0.5 MG TABS One tablet by mouth three times daily as needed CLONAZEPAM [id number] Elizabet Avila Cobalamin Combinations capsule (4 sources) Start: 06-14-2023 End: 07-17-2023 take 1 capsule by mouth once daily Cobalamin Combinations capsule Discontinued NMA PO DAILY June 14, 2023 12:00am July 17, 2023 9:21am Cobalamine Combinations (5 sources) Start: 06-14-2023 End: 07-17-2023 take 1 capsule by mouth once daily Cobalamine Combinations Discontinued CAP PO DAILY June 13, 2023 11:00pm July 17, 2023 8:21am Start: 06-14-2023 take 1 capsule by mo [facility] once daily Cobalamine Combinations Active CAP PO DAILY June 13, 2023 11:00pm Start: 06-14-2023 take 1 capsule by mo [facility] once daily Cobalamine Combinations Active CAP PO DAILY June 14, 2023 12:00am Cobalamine Combinations capsule (1 source) Start: 06-14-2023 End: 07-17-2023 take 1 capsule by mouth once daily Cobalamine Combinations capsule Discontinued NMA PO DAILY June 14, 2023 12:00am July 17, 2023 9:21am ezetimibe 10 mg oral tablet (20 sources) Dietary Cholesterol Absorption Inhibitor Start: 08-06-2017 End: 04-23-2023 take 1 tablet by mouth once daily Ezetimibe 10 mg tablet Discontinued 10 mg PO daily 90 90 0 August 06, 2017 1:00am April 23, 2023 9:57pm cholesterol On Hold: elevated LFT Start: 06-01-2012 take 1 tablet by kolton th once daily ZETIA 10 MG TABS One tablet by mouth daily EZETIMIBE [id number] Brain Whyte MD famotidine 20 mg oral tablet (5 sources) Histamine-2 Receptor Antagonist Start: 10-25-2013 take 1 tablet by mouth once daily FAMOTIDINE 20 MG TABS One tablet by mouth daily FAMOTIDINE [id number] Brain Whyte MD fish oil (10 sources) Start: 06-01-2012 End: 01-11-2013 take 1 tablet by mouth once daily FISH OIL CAPS One tablet by mouth daily OMEGA-3 FATTY ACIDS CAPS [id number] Bhavani Ralph PA-C Start: 06-01-2012 take 1 tablet by kolton th once daily FISH OIL CAPS One tablet by mouth daily OMEGA-3 FATTY ACIDS CAPS [id number] Brain Whyte MD Start: 06-01-2012 End: 01-11-2013 take 1 tablet by mouth once daily FISH OIL CAPS One tablet by mouth daily OMEGA-3 FATTY ACIDS CAPS [id number] Bhavani Ralph PA-C Start: 06-01-2012 take 1 tablet by kolton th once daily FISH OIL CAPS One tablet by mouth daily OMEGA-3 FATTY ACIDS CAPS [id number] Brain Whyte MD lisinopril 10 mg oral tablet (20 sources) Angiotensin Converting Enzyme Inhibitor Start: 10-24-2017 End: 01-26-2018 take 5 mg by mouth once daily before breakfast Lisinopril 10 mg tablet Discontinued 5 mg PO daily 90 90 0 October 24, 2017 11:09am January 26, 2018 8:38am Hold if SBP Advised to check blood pressure in the morning before breakfast. Start: 10-24-2017 End: 01-26-2018 take 5 mg by mouth once daily before breakfast Lisinopril Discontinued 5 MG PO daily 90 90 October 24, 2017 10:09am January 26, 2018 7:38am Hold if SBP Advised to check blood pressure in the morning before breakfast. Start: 08-06-2017 End: 10-24-2017 take 1 tablet by mouth once daily Lisinopril 10 mg tablet Discontinued 10 mg PO daily 90 90 0 August 06, 2017 1:00am October 24, 2017 11:09am Start: 11-28-2011 take 1 tablet by kolton th once daily LISINOPRIL 5 MG TABS One tablet by mouth daily LISINOPRIL [id number] Brain Whyte MD Start: 11-28-2011 End: 01-11-2013 take 1 tablet by mouth once daily LISINOPRIL 10 MG TABS One tablet by mouth daily LISINOPRIL [id number] Bhavani Ralph PA-C Start: 11-27-2011 take 1 tablet by kolton th once daily LISINOPRIL 2.5 MG TABS One tablet by mouth daily LISINOPRIL [id number] Elizabet Avila loratadine 10 mg oral tablet [...] tablet by mouth daily as needed LORATADINE [id number] Brain Whyte MD Start: 11-27-2011 take 1 tablet by kolton th once daily as needed CLARITIN 10 MG CAPS One tablet by mouth daily as needed LORATADINE [id number] Brain Whyte MD oxyCODONE hydrochloride 5 mg oral capsule (9 sources) Opioid Agonist Start: 06-15-2023 End: 07-17-2023 take 1 capsule by mouth every six hours as needed for pain Oxycodone 5 mg capsule Discontinued 5 mg PO EVERY 6 HOURS as needed for pain 12 3 0 June 15, 2023 July 17, 2023 9:21am Diverticulitis of sigmoid colon pravastatin sodium 80 mg oral tablet (20 sources) HMG-CoA Reductase Inhibitor Start: 08-06-2017 End: 04-23-2023 take 1 tablet by mouth once daily Pravastatin 80 mg tablet Discontinued 80 mg PO daily 90 90 0 August 06, 2017 1:00am April 23, 2023 9:57pm cholesterol On Hold: elevated LFT Start: 06-01-2012 take 1 tablet by kolton th at bedtime PRAVASTATIN SODIUM 80 MG TABS One tablet by mouth at bedtime. PRAVASTATIN SODIUM [id number] Brain Whyte MD raNITIdine 150 mg oral tablet (5 sources) Histamine-2 Receptor Antagonist Start: 06-01-2012 take 1 tablet by mouth twice daily RANITIDINE HCL 150 MG TABS One tablet by mouth twice daily RANITIDINE HCL [id number] Brain Whyte MD rosuvastatin calcium 5 mg oral tablet (20 sources) HMG-CoA Reductase Inhibitor Start: 10-02-2023 End: 08-06-2024 take 1 tablet by mouth every week Rosuvastatin (Crestor) 5 mg tablet Discontinued 5 mg PO .weekly 10 07October 02, 2023 1:00am August 06, 2024 2:51pm Start: 05-20-2023 End: 06-13-2023 Rosuvastatin 40 mg tablet Discontinued 20 mg PO DAILY 10 07May 20, 2023 2:42pm June 13, 2023 10:37am Start: 05-20-2023 End: 06-13-2023 take 20 mg by mouth once daily Rosuvastatin Discontinu ed 20 MG PO DAILY May 20, 2023 1:42pm June 13, 2023 9:37am Start: 05-05-2023 End: 05-20-2023 take 1 tablet by mouth once daily Rosuvastatin 40 mg tablet Discontinued 40 mg PO DAILY 10 07May 05, 2023 12:00am May 20, 2023 2:43pm sildenafil 100 mg oral tablet (13 sources) Phosphodiesterase 5 Inhibitor Start: 04-23-2023 End: [...] One tablet by mouth at bedtime. SIMVASTATIN [id number] Elizabetpili Avila tadalafil 5 mg oral tablet (20 sources) Phosphodiesterase 5 Inhibitor Start: 08-06-2017 End: 01-26-2018 Tadalafil 5 mg tablet Discontinued 5 mg PO NEEDED as needed for erectile 30 30 0 August 06, 2017 1:00am January 26, 2018 8:38am Start: 06-01-2012 CIALIS 5 MG TA BS as directed TADALAFIL [id number] Brain Whyte MD ticagrelor 90 mg oral tablet (12 sources) Start: 04-25-2023 End: 05-20-2023 take 1 tablet by mouth twice daily Ticagrelor (Brilinta) 90 mg Tablet Discontinued 90 mg PO TWICE A DAY 60 0 April 25, 2023 12:00am May 20, 2023 2:39pm ubidecarenone 100 mg oral capsule (11 sources) Start: 05-05-2023 End: 09-11-2023 take 10 capsules by mouth once daily Coenzyme Q10 100 mg capsule Discontinued 100 mg PO DAILY May 05, 2023 12:00am September 11, 2023 9:36am Vitamin B Complex (B Complex-Vitamin B12) tablet (7 sources) Start: 07-17-2023 End: 08-06-2024 Vitamin B Complex (B Complex-Vitamin B12) tablet Discontinued 1 {tbl} PO DAILY July 17, 2023 1:00am August 06, 2024 2:51pm Start: 07-17-2023 take 1 tablet by kolton th once daily Vitamin B Complex (B Complex-Vitamin B12) tablet Active 1 TABLET PO DAILY July 17, 2023 12:00am Problems Active Problems Problem Classification Problem Date Documented Date Episodic/Chronic Abdominal pain (15 sources) Abdominal pain; Translations: [Unspecified abdominal pain] 06-14-2023 Episodic Acute myocardial infarction (20 sources) ST elevation (STEMI) myocardial infarction of unspecified site; Translations: [Myocardial infarction] 07-07-2010 Chronic Coronary atherosclerosis and other heart disease (20 sources) Coronary atherosclerosis; Translations: [Atherosclerotic heart disease of elem coronary artery without angina pectoris] Onset: 11-27-2011 11-27-2011 Chronic Comment on above: PTCA with CONNIE to pro ximal 1st obtuse marginal artery & proximal to mid LCX 05/20, mid LAD 06/20; 04/25/23: CONNIE to mid LAD and proximal OM1 Disorders of lipid metabolism (20 sources) Hyperlipidemia; Translations: [Hyperlipidemia, unspecified] Onset: 11-09-2024 07-07-2010 Chronic Diverticulosis and diverticulitis (17 sources) Diverticulitis of sigmoid colon; Translations: [Diverticulitis [...] wishes to proceed as recommended Esophageal disorders (9 sources) Gastroesophageal reflux disease; Translations: [Gastro-esophageal reflux disease without esophagitis] 07-17-2023 Chronic Comment on above: Patient is a 57-year -old, , male with a past history of tobacco use including a 30-year pack year history who has at least weekly experiences of gastroesophageal reflux disease and heartburn. Given these demographic features and this medical history, I have shared with Mr. Pablito that we should consider possible Dean's screening EGD. After explanation he confirms an understanding of this rationale and agrees to proceed as recommended. Essential hypertension (20 sources) Hypertensive disorder; Translations: [Essential hypertension] Onset: 11-09-2024 07-07-2010 Chronic Other circulatory disease (17 sources) H/O: heart disorder; Translations: [Personal history of other diseases of the circulatory system] 04-23-2023 Episodic Other circulatory disease (2 sources) Personal history of other diseases of the circulatory system; Translations: [Personal history of other diseases of circulatory system] 04-23-2023 Episodic Other connective tissue disease (7 sources) Muscle pain; Translations: [Myalgia, unspecified site] 09-11-2023 Episodic Other connective tissue disease (2 sources) Myalgia, unspecified site; Translations: [Myalgia and myositis, unspecified] 09-11-2023 Episodic Transient cerebral ischemia (19 sources) Transient cerebral ischemia; Translations: [Transient cerebral ischemic attack, unspecified] 04-23-2023 Chronic Unclassified (6 sources) Long-term drug therapy; Translations: [Long-term (current) use of other medications] Onset: 06-10-2012 Resolved: 05-03-2015 06-10-2012 Past or Other Problems Problem Classification Problem Date Documented Da te Episodic/Chronic Administrative/social admission (10 sources) Administrative reason for encounter; Translations: [Encounter for other administrative examinations] Onset: 11-09-2024 11-12-2023 Episodic Allergic reactions (7 sources) Urticaria; Translations: [Urticaria, unspecified] Onset: 01-28-2025 01-22-2025 Episodic Cardiac dysrhythmias (11 sources) Palpitations; Translations: [Palpitations] Onset: 09-22-2024 09-11-2023 Episodic Coronary atherosclerosis and other heart disease (20 sources) Coronary angioplasty status; Translations: [History of myocardial infarction] Onset: 06-11-2010 11-27-2011 Episodic Comment on above: PTCA with CONNIE to pro ximal 1st obtuse marginal artery & proximal to mid LCX 10/10, mid LAD 11/10 PTCA with CONNIE to pro ximal 1st obtuse marginal artery & proximal to mid LCX 10/10, mid LAD 11/DES to mid LAD and proximal OM1 04/25/2023 Disorders of teeth and jaw (5 sources) Dental caries; Translations: [Dental caries, unspecified] Onset: 07-07-2010 07-07-2010 Episodic Nonspecific chest pain (20 sources) Atypical chest pain; Translations: [Other chest pain] Onset: 01-28-2025 Episodic Nutritional deficiencies (1 source) Vitamin B deficiency, unspecified; Translations: [Vitamin B deficiency, unspecified] Onset: 10-10-2024 Episodic Other aftercare (9 sources) Long-term (current) use of other medications; Translations: [Other jail (current) drug therapy] Onset: 06-10-2012 Resolved: 05-03-2015 [...] Test Name Value Interpretation Reference Range Facility Cardiology Visit Reporton Cardiology Visit Report [facility] [address] [place] [address] OFFICE VISIT Date of Service: 05/05/25 MR#: [id number] Acct: [id number] Name: JOVANY MUÑIZ Rep #: [id number] : 1965 Provider: EUGENIA south Age/Sex: 59/M [place] [facility] [place] Signed HPI HPI History of Present Illness Details: This is a 59-year-old white male who presents today for outpatient cardiovascular follow-up regarding a history of underlying CAD, PCI, hyperlipidemia, and hypertension. He was noted to have inferior myocardial infarction with stenting to his obtuse marginal, proximal to mid circumflex, proximal to mid LAD in 2009. He presented [facility] on 04/23/2023 for assurance regarding stroke and [...] level has remained stable. 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 Machine Required: No Accompanied by: Is patient in pain?: No Allergies shrimp Allergy (Severe, Verified 05/05/25 08:30) Anaphylaxis scallops Allergy (Verified 05/05/25 08:30) Anaphylaxis Medications ???Medication ???Instructions ???Recorded ???Confirmed ???Type aspirin 81 mg tablet,delayed 81 mg PO QDAY heart [facility] 7 05/05/25 History release (Adult Low Dose Aspirin) cetirizine 10 mg tablet 10 mg PO DAILY PRN allergy symptom s 05/20/23 05/05/25 History nitroglycerin 0.4 mg sublingual 0.4 mg sublingual Q5-15M PRN CHEST 06/13/23 05/05/25 Rx tablet (Nitrostat) PAIN #25 tabs acetaminophen 500 mg capsule 1,000 mg (2 x 500 mg) PO Q8H PRN 1 08/15/22 05/05/25 Rx PRN fever or pain #30 caps clopidogrel 75 mg tablet (Plavix) 75 mg PO QDAY #90 tabs 07/20/24 0 05/05/25 Rx losartan 50 mg tablet 100 mg PO DAILY 08/06/24 05/05/25 History pantoprazole 40 mg tablet,delayed 20 mg PO DAILY 08/06/24 05/05/25 History release pitavastatin calcium 1 mg tablet 0.5 mg PO QDAY 05/05/25 05/05/25 H istory Ejection fraction %: 60 PFSH Medical History Wears partial dentures High cholesterol Heartburn Gastric reflux History of diverticulitis Former smoker History of heart attack History of echocardiogram History of stress test Hypertension Cardiology follow-up encounter Sigmoid diverticulitis History of coronary artery disease Presence of stent in coronary artery (04/25/23) Essential hypertension HLD (hyperlipidemia) Old myocardial infarction 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 Normal [facility] L5500.0550on 02-01-2025 BEEF <0.10 Normal Class 0 [facility] Comment on above: Performed By: #### L 500.2500, L501.4021, L100.0100 #### [facility] Laboratory [address] [place], [address] CHOCOLATE <0.10 Normal Class 0 [facility] Comment on above: Performed By: #### L 500.2500, L501.4021, L100.0100 #### [facility] [address] [place], [address] CODFISH <0.10 Normal Class 0 [facility] Comment on above: Performed By: #### L 500.2500, L501.4021, L100.0100 #### [facility] [address] [place], [address] COMMENT Comment Normal . [facility] Comment on above: Result Comment: Master bennett of Specific IgE Class Description of Class ----- < 0.10 0 Negative 0.10 - 0.31 0/I Equivocal/Low 0.32 - 0.55 I Low 0.56 - 1.40 II Moderate 1.41 - 3.90 III High 3.91 - 19.00 IV Very High 19.01 - 100.00 V Very High >100.00 Very High Performed By: #### L 500.2500, L501.4021, L100.0100 #### [facility] [address] [place], [address] CORN <0.10 Normal Class 0 [facility] Comment on above: Performed By: #### L 500.2500, L501.4021, L100.0100 #### [facility] [address] [place], [address] EGG, WHOLE <0.10 Normal Class 0 [facility] Comment on above: Result Comment: Perf ormed at: [facility] [id number] Administrative Services Manager: Brandie Dial MD, Phone: [phone] Performed By: #### L 500.2500, L501.4021, L100.0100 #### [facility] [address] [place], [address] MILK (COW) <0.10 Normal Class 0 [facility] Comment on above: Performed By: #### L 500.2500, L501.4021, L100.0100 #### [facility] [address] [place], [address] MUSSELS <0.10 Normal Class 0 [facility] Comment on above: Performed By: #### L 500.2500, L501.4021, L100.0100 #### [facility] [address] [place], [address] PEANUT <0.10 Normal Class 0 [facility] Comment on above: Performed By: #### L 500.2500, L501.4021, L100.0100 #### [facility] [address] [place], [address] PORK <0.10 Normal Class 0 [facility] Comment on above: Performed By: #### L 500.2500, L501.4021, L100.0100 #### [facility] [address] [place], [address] SALMON <0.10 Normal Class 0 [facility] Comment on above: Performed By: #### L 500.2500, L501.4021, L100.0100 #### [facility] [address] [place], [address] SHRIMP 0.50 kU/L Abnormal Class I [facility] Comment on above: Performed By: #### L 500.2500, L501.4021, L100.0100 #### [facility] [address] [place], [address] SOYBEAN <0.10 Normal Class 0 [facility] Comment on above: Performed By: #### L 500.2500, L501.4021, L100.0100 #### [facility] [address] [place], [address] TUNA <0.10 Normal Class 0 [facility] Comment on above: Performed By: #### L 500.2500, L501.4021, L100.0100 #### [facility] [address] [place], [address] WHEAT <0.10 Normal Class 0 [facility] Comment on above: Performed By: #### L 500.2500, L501.4021, L100.0100 #### [facility] [address] [place], [address] Calculated very low density lipoprotein (VLDL) cholesterol measurementOrdered By: Eduard Henley on 01-27-2025 Calculated very low density lipoprotein (VLDL) cholesterol measurement 31 mg/dL 5-40 [facility] LDL calc ser/plasOrdered By: Eduard Henley on 01-27-2025 Cholesterol in LDL [Mass/Vol] 131 mg/dL [facility] Comment on above: Vibizkcons=260-192 m g/dL & Higher Wyiu=635 mg/dL or greater Laboratory - Miscellaneous t estsOrdered By: Eduard Henley on 01-27-2025 Service comment (Unsp spec) [Interp] Comment . [facility] Comment on above: Levels of Specific I gE Class Description of Class ----- < 0.10 0 Negative 0.10 - 0.31 0/I Equivocal/Low 0.32 - 0.55 I Low 0.56 - 1.40 II Moderate 1.41 - 3.90 III High 3.91 - 19.00 IV Very High 19.01 - 100.00 V Very High >100.00 Very High Lipid Profileon 01-27-2025 CHOL:HDL 2.83 Normal [facility] Comment on above: Order Comment: Order Date: 10/01/24 Order Info: [id number] - LIPID Performed By: #### L 500.4100 #### [facility] [address] [place], [address] Cholesterol [Mass/Vol] 251 mg/dL High <=200 [facility] Comment on above: Order Comment: Order Date: 10/01/24 Order Info: [id number] - LIPID Result Comment: Chol esterol level, Desirable <200 mg/dL Borderline high cholesterol 200-239 mg/dL High cholesterol >=240 mg/dL Recommendations of the NCEP Adult Treatment Panel for the following risk-cutoff thresholds for the [place] population. Performed By: #### L 500.4100 #### [facility] [address] [place], [place], [id number] Cholesterol in HDL [Mass/Vol] 89 mg/dL Normal [facility] Comment on above: Order Comment: Order Date: 10/01/24 Order Info: [id number] - LIPID Result Comment: Anum onal Cholesterol Education Program (NCEP) guidelines: <40 mg/dL: Low HDL-cholesterol (major risk factor for CHD) >= 60 mg/dL: High HDL-cholesterol (negative risk factor for CHD) HDL-cholesterol is affected by a number of factors, e.g. smoking, exercise, hormones, sex and age. Performed By: #### L 500.4100 #### [facility] [address] [place], [place], [id number] Cholesterol in LDL [Mass/Vol] 131 mg/dL Normal [facility] Comment on above: Order Comment: Order Date: 10/01/24 Order Info: [id number] - LIPID Result Comment: Bord rzjziw=474-707 mg/dL Higher Xoma=114 mg/dL or greater Performed By: #### L 500.4100 #### [facility] [address] [place], [place], [address] Cholesterol in VLDL [Mass/Vol] 31 mg/dL Normal 5-40 [facility] Comment on above: Order Comment: Order Date: 10/01/24 Order Info: [id number] - LIPID Performed By: #### L 500.4100 #### [facility] [address] [place], [place], [address] Triglyceride [Mass/Vol] 156 mg/dL Normal [facility] Comment on above: Order Comment: Order Date: 10/01/24 Order Info: [id number] - LIPID Result Comment: The drugs N-Acetylcysteine and Metamizole may falsely depress this assay. Normal range: <150 mg/dL Borderline High: 150-199 mg/dL High: 200-499 mg/dL Very High: >500 mg/dL Performed By: #### L 500.4100 #### [facility] [address] [place], [place], [address] Screening total cholesterol/ high density lipoprotein (HDL) cholesterol ratioOrdered By: Eduard Henley on 01-27-2025 Cholesterol.total/Choles terol in HDL [Mass ratio] 2.83 {ratio} [facility] Serum beef IgE antibody assa y (units/volume)Ordered By: Eduard Henley on 01-27-2025 Beef IgE Qn (S) <0.10 kU/L Class 0 [facility] Serum codfish IgE antibody a ssay (units/volume)Ordered By: Eduard Henley on 01-27-2025 Codfish IgE Qn (S) <0.10 kU/L Class 0 [facility] Serum corn IgE antibody assa y (units/volume)Ordered By: Eduard Henley on 01-27-2025 [place] IgE Qn (S) <0.10 kU/L Class 0 [facility] Serum cow milk IgE antibody assay (units/volume)Ordered By: Eduard Henley on 01-27-2025 Cow milk IgE Qn (S) <0.10 kU/L Class 0 [facility] Serum or plasma cholesterol in HDL measurement (mass/volume)Ordered By: Eduard Henley on 01-27-2025 Cholesterol in HDL [Mass/Vol] 89 mg/dL >40 [facility] Comment on above: National Cholesterol Education Program (NCEP) guidelines:<40 mg/dL: Low HDL-cholesterol (major risk factor for CHD)>= 60 mg/dL: High HDL-cholesterol (negative risk factor for CHD)HDL-cholesterol is affected by a number of factors, e.g. smoking, exercise, hormones, sex and age. Serum or plasma cholesterol measurement (mass/volume)Ordered By: Eduard Henley on 01-27-2025 Cholesterol [Mass/Vol] 251 mg/dL High <201 [facility] Comment on above: Cholesterol level, D esirable <200 mg/dLBorderline high cholesterol 200-239 mg/dLHigh cholesterol >=240 mg/dLRecommendations of the NCEP Adult Treatment Panel for the following risk-cutoff thresholds for the [place] population. Serum peanut IgE antibody as say (units/volume)Ordered By: Eduard Henley on 01-27-2025 Peanut IgE Qn (S) <0.10 kU/L Class 0 [facility] Serum pork IgE antibody assa y (units/volume)Ordered By: Eduard Henley on 01-27-2025 Pork IgE Qn (S) <0.10 kU/L Class 0 [facility] Serum salmon IgE antibody as say (units/volume)Ordered By: Eduard Henley on 01-27-2025 Junior IgE Qn (S) <0.10 kU/L Class 0 [facility] Serum soybean IgE antibody a ssay (units/volume)Ordered By: Eduard Henley on 01-27-2025 Soybean IgE Qn (S) <0.10 kU/L Class 0 [facility] Serum tuna IgE antibody assa y (units/volume)Ordered By: Eduard Henley on 01-27-2025 Tuna IgE Qn (S) <0.10 kU/L Class 0 [facility] Serum wheat IgE antibody ass ay (units/volume)Ordered By: Eduard Henley on 01-27-2025 Wheat IgE Qn (S) <0.10 kU/L Class 0 [facility] Serum whole egg IgE antibody assay (units/volume)Ordered By: Eduard Henley on 01-27-2025 Whole Egg IgE Qn (S) <0.10 kU/L Class 0 [facility] Comment on above: Performed at: [address] [id number] Director: Brandie Dial MD, Phone: [phone] Triglycerides measurementOrd ered By: Eduard Henley on 01-27-2025 Triglyceride [Mass/Vol] 156 mg/dL <199 [facility] Comment on above: The drugs N-Acetylcy steine and Metamizole may falsely depress this assay. Normal range: <150 mg/dLBorderline High: 150-199 mg/dLHigh: 200-499 mg/dLVery High: >500 mg/dL Vitamin B12on 01-27-2025 Cobalamin (Vitamin B12) [Mass/Vol] 743 pg/mL Normal 180-914 [facility] Comment on above: Order Comment: Order Date: 10/01/24Order Info: [id number] - LIPID Performed By: #### L 503.0106, L5500.0550 ####[facility] [address] [facility] [place], [address] Vitamin B12 ser/plasOrdered By: Eduard Henley on 01-27-2025 Cobalamin (Vitamin B12) [Mass/Vol] 743 pg/mL 180-914 [facility] 12 Lead EKGon 01-22-2025 12 Lead EKG [facility] Cardiovascular Services [address] [place] [address] 12 Lead EKG 01/22/25 1351 MR#: [id number] Acct: [id number] Name: JOVANY MUÑIZ Rep #: [id number] : 1965 59 From: Jose Lockwood MD Attending Dr: Status: DEP ER Ordering Dr: Robert Mercer MD Date: 01/22/25 Location: ED Sex: M C Admitted: Test Reason : CP Blood Pressure : */* mmHG Vent. Rate : 88 BPM Atrial Rate : 88 BPM P-R Int : 168 ms QRS Dur : 98 ms QT Int : 384 ms P-R-T Axes : 66 -15 45 degrees QTcB Int : 464 ms Normal sinus rhythm with sinus arrhythmia Normal ECG Confirmed by MANDIE SY, JOSE ([id number]), satellite project site monitor JOY PAULSON ([id number]) on 01/25/2025 7:48:42 AM Referred By: ISHA/RUSLAN Confirmed By: JOSE LOCKWOOD MD 01/25/25 0748 Date Jose Lockwood MD CC: Dr. Eduard Henley MD; Dr. Robert Mercer MD Signed Normal [facility] Absolute lymphocyte countOrd ered By: ED PROVIDER on 01-22-2025 Lymphocytes Auto (Unsp spec) [#/Vol] 1.12 10*3/uL 0.83-4.51 [facility] Absolute neutrophil countOrd ered By: ED PROVIDER on 01-22-2025 Neutrophils (Bld) [#/Vol] 3.3 10*3/uL 2.0-7.7 [facility] Anion gap in Serum or Plasma Ordered By: ED PROVIDER on 01-22-2025 Anion gap [Moles/Vol] 14 mmol/L 5-15 [facility] Automated blood erythrocyte countOrdered By: ED PROVIDER on 01-22-2025 RBC (Bld) [#/Vol] 4.48 10*6/uL Low 4.6-6.2 [facility] Comment on above: Performed By: #### L 500.2500, L501.4021, L100.0100 #### [facility] Laboratory [address] [place], [place], [address] Automated blood hematocrit ( percentage)Ordered By: ED PROVIDER on 01-22-2025 Hematocrit (Bld) [Volume fraction] 43.5 % Normal 40-54 [facility] Comment on above: Performed By: #### L 500.2500, L501.4021, L100.0100 #### [facility] [address] [place], [address] Automated lymphocyte count a s percentage of total leukocytesOrdered By: ED PROVIDER on 01-22-2025 Lymphocytes/100 WBC Auto (Unsp spec) 22.1 % 19-41 [facility] BUN/creatinine ratioOrdered By: ED PROVIDER on 01-22-2025 Urea nitrogen/Creatinine [Mass ratio] 11.0 mg/mg 10- [facility] Basic Metabolic Profile (BMP )on 01-22-2025 BUN/CRE 11.0 RATIO Normal -20 [facility] Comment on above: Performed By: #### L 500.2500, L501.4021, L100.0100 #### [facility] Laboratory [address] [place], [address] ECRCL 76.71 ml/min Normal 50-250 [facility] Comment on above: Performed By: #### L 500.2500, L501.4021, L100.0100 #### [facility] [address] [place], [address] GAP 14 Normal 5-15 [facility] Comment on above: Performed By: #### L 500.2500, L501.4021, L100.0100 #### [facility] [address] [place], [address] Potassium [Moles/Vol] 4.8 mmol/L Normal 3.3-5.1 [facility] Comment on above: Result Comment: Hemo lysis present, Results??could be affected. ?? Performed By: #### L 500.2500, L501.4021, L100.0100 #### [facility] [address] [place], [address] Basophil percentageOrdered B y: ED PROVIDER on 01-22-2025 Basophils/100 WBC (Bld) 0.8 % Normal 0-1 [facility] Comment on above: Performed By: #### L 500.2500, L501.4021, L100.0100 #### [facility] [address] [place], [address] CBC W/Diff, Automatedon 01-09 Absolute Lymph 1.12 X10 3/uL Normal 0.83-4.51 [facility] Comment on above: Performed By: #### L 500.2500, L501.4021, L100.0100 #### [facility] [address] [place], [address] Absolute Neut 3.3 X10 3/uL Normal 2.0-7.7 [facility] Comment on above: Performed By: #### L 500.2500, L501.4021, L100.0100 #### [facility] [address] [place], [address] IG% 0.400 Normal 0.0-0.9 [facility] Comment on above: Result Comment: IG% - Immature Granulocytes (promyelocytes, myelocytes and metamyelocytes) > 1% indicates that a LEFT SHIFT is Present. Performed By: #### L 500.2500, L501.4021, L100.0100 #### [facility] [address] [place], [address] Lymphocytes/100 WBC (Bld) 22.1 % Normal 19-41 [facility] Comment on above: Performed By: #### L 500.2500, L501.4021, L100.0100 #### [facility] [address] [place], [address] Nucleated RBC (Bld) [#/Vol] 0 10*3/uL Normal 0-5 [facility] Comment on above: Performed By: #### L 500.2500, L501.4021, L100.0100 #### [facility] [address] [place], [address] RDW SD 46.8 fl High 35.1-43.9 [facility] Comment on above: Performed By: #### L 500.2500, L501.4021, L100.0100 #### [facility] [address] [place], [address] Carbon dioxide, total [Moles /volume] in Central venous bloodOrdered By: ED PROVIDER on 01-22-2025 CO2 [Moles/Vol] 21.7 mmol/L Normal 21.0-32.0 [facility] Comment on above: Performed By: #### L 500.2500, L501.4021, L100.0100 #### [facility] Laboratory [address] [place], [address] Chest 1 View (Portable)on Chest 1 View (Portable) [facility] Imaging Services [address] [place] [address] Chest 1 View (Portable) MR#: [id number] Acct: [id number] Name: JOVANY MUÑIZ Rep #: [id number] : 1965 M 59 From: Rachael Santos nd, MD PCP: Dr. Eduard Henley MD Status: REG ER Study: Chest 1 View (Portable) Date of Exam: 01/22/25 Exam# [id number] Ordering Dr: Robert Mercer MD PROCEDURE: CHEST 1 VIEW (PORTABLE) 01/22/2025 REASON FOR EXAM: CHEST PAIN TECHNIQUE: Frontal view of the chest. COMPARISON: Chest radiograph 09/03/2024. FINDINGS: Hardware: None. Heart: The heart size is normal. Lungs: No focal consolidation, pleural effusion or pneumothorax. Bones: Degenerative changes are identified within the thoracic spine. RAD/Chest 1 View (Portable) IMPRESSION: Negative Chest. Reading Location: [id number] CC: Dr. Eduard Henley MD; Dr. Robert Mercer MD Train Station Server: Signed Normal [facility] Chloride assayOrdered By: ED PROVIDER on 01-22-2025 Chloride [Moles/Vol] 103 mmol/L Normal 98-108 [facility] Comment on above: Performed By: #### L 500.2500, L501.4021, L100.0100 #### [facility] [address] [place], [address] Emergency Department Summary on 01-22-2025 Emergency Department Summary [facility] Medical Records Department [address] [place] [address] Emergency Department Summary 01/22/25 MR#: [id number] Acct: [id number] Name: JOVANY MUÑIZ Rep #: [id number] : 1965 59 From: Robert Mercer MD PCP: Dr. Eduard Henley MD Status:REG ER Location: ED HPI History of Present Illness Chief Complaint: Allergic Reaction Informant: patient and spouse/S.O. Onset/Context/Timin g Onset: Today Context: Sudden Onset Timing: Continuous Current Severity: Moderate Maximum Severity: Moderate Narrative Narrative: 59-year-old male history of CAD PR stent. Seen earlier tonight for atypical back pain. Workup was negative. He was discharged home. When he got home around 6:37 he is from dinner. Shortly thereafter he start developing itching redness and hives. He said he is never had allergic reaction before. He was brought in by squad he reportedly gave him subcu epinephrine. He denies any tongue or lip swelling. No trouble breathing or wheezing. 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) Home Medications ???Medication ???Instructions ???Recorded ???Last Taken ???Type aspirin 81 mg tablet,delayed 81 mg PO QDAY [facility] 7 09/26/23 History release (Adult Low Dose Aspirin) cetirizine 10 mg tablet 10 mg PO DAILY PRN allergy symptom s 05/20/23 Unknown History nitroglycerin 0.4 mg sublingual 0.4 mg sublingual Q5-15M PRN CHEST 06/13/23 Unknown Rx tablet (Nitrostat) PAIN #25 tabs acetaminophen 500 mg capsule 1,000 mg (2 x 500 mg) PO Q8H PRN 1 08/15/22 10/01/23 Rx PRN fever or pain #30 caps clopidogrel 75 mg tablet (Plavix) 75 mg PO QDAY #90 tabs 07/20/24 U nknown Rx losartan 50 mg tablet 100 mg PO DAILY 08/06/24 Unknown H istory pantoprazole 40 mg tablet,delayed 20 mg PO DAILY 08/06/24 Unknown H istory release pitavastatin calcium 1 mg tablet 1 mg PO QDAY 08/06/24 Unknown Hist ory Allergy/AdvReac Type Severity Reaction Status Date / Time shrimp Allergy Severe Anaphylaxis Verified 01/22/25 20:30 Family History Grandfather , age 76 CVA [...] home: Yes ROS ROS ED ROS Narrative Itching. Hives. Constitutional Constitutional ED: Denies chills or fever(s) Eyes Eyes: Denies blurry vision Cardiovascular Cardiovascular: Denies chest pain Respiratory/Chest Respiratory/Chest: Denies cough Gastrointestinal Gastrointestinal: Denies abdominal pain or nausea Genitourinary Genitourinary ED: Denies dysuria or hematuria Musculoskeletal Musculoskeletal: Denies arthralgias or back pain Integumentary Reports rash and other Details: Itching and hives. ; Denies abscess or Abrasions Neurologic Neurologic: Denies headache(s) Psychiatric Psychiatric: Denies anxiety Endocrine Endocrinology: Denies cold intolerance Hematologic/Lymphat ic Hematologic/Lymphat ic: Reports none Allergic/Immunologi c Allergic/Immunologi c ED: Denies mouth swelling, tongue swelling or urticaria EXAM Physical Exam Narrative Exam Narrative: 59-year-old male sitting upright in bed with at bedside. He is anxious. H EENT exam pupils round react to light. Moist mucous membranes. Tongue and lips are not swelling. No trouble breathing. No stridor or drooling. Neck nontender. Lungs clear. Heart regular rhythm rate about 100 no murmur. Chest wall and ribs nontender. He has a red rash consistent with hives. It does beena. Abdomen soft nontender. No peritoneal signs. (more content not included)... Normal [facility] Emergency Department Summary [facility] Medical Records Department [address] [place] [address] Emergency Department Summary 01/22/25 MR#: [id number] Acct: [id number] Name: JOVANY MUÑIZ Rep #: [id number] : 1965 59 From: Robert Mercer MD PCP: Dr. Eduard Henley MD Status:REG ER Location: ED HPI History of Present Illness Chief Complaint: Chest Pain Informant: patient and spouse/S.O. Onset/Context/Timin g Onset: Today and Hours Activity at onset: [...] mild chest tightness. States felt fatigued. Mild nausea no vomiting. Prior Similar Symptoms: Yes Recent Illness/Hospitaliza tion: No CVD Risk Factors: Positive for Hypertension PE Risk Factors: Negative for Recent Travel/Surgery, Recent Immobilization, Prior DVT or PE, Cancer or OCP + Smoking + >/=35 TAD Risk Factors: Negative for Marfan's Syndrome PFSH PFSH Medical History Wears partial dentures High cholesterol Heartburn Gastric reflux History of diverticulitis Former smoker History of heart attack History of echocardiogram History of stress test Hypertension Cardiology follow-up encounter Sigmoid diverticulitis History of coronary artery disease Presence of stent in coronary artery (04/25/23) Essential hypertension HLD (hyperlipidemia) Old myocardial infarction 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) Home Medications ???Medication ???Instructions ???Recorded ???Last Taken ???Type aspirin 81 mg tablet,delayed 81 mg PO QDAY heart health 7 09/26/23 History release (Adult Low Dose Aspirin) cetirizine 10 mg tablet 10 mg PO DAILY PRN allergy symptom s 05/20/23 Unknown History nitroglycerin 0.4 mg sublingual 0.4 mg sublingual Q5-15M PRN CHEST 06/13/23 Unknown Rx tablet (Nitrostat) PAIN #25 tabs acetaminophen 500 mg capsule 1,000 mg (2 x 500 mg) PO Q8H PRN 1 08/15/22 10/01/23 Rx PRN fever or pain #30 caps clopidogrel 75 mg tablet (Plavix) 75 mg PO QDAY #90 tabs 07/20/24 U nknown Rx losartan 50 mg tablet 100 mg PO DAILY 08/06/24 Unknown H istory pantoprazole 40 mg tablet,delayed 20 mg PO DAILY 08/06/24 Unknown H istory release pitavastatin calcium 1 mg tablet 1 mg PO QDAY 08/06/24 Unknown Hist ory Allergy/AdvReac Type Severity Reaction Status Date / [...] exertional dyspnea or exertional chest pain. He had back pain and chest tightness today. Constitutional Constitutional ED: Denies chills or fever(s) Eyes Eyes: Reports none ENT ENT ED: Reports ear pain Cardiovascular Cardiovascular: Reports as per HPI and chest pain; Denies palpitations or racing heartbeat Respiratory/Chest Respiratory/Chest: Denies cough or dyspnea Gastrointestinal Gastrointestinal: Reports nausea; Denies abdominal pain, diarrhea, melena or vomiting Genitourinary Genitourinary ED: Denies dysuria or hematuria Musculoskeletal Musculoskeletal: Denies arthralgias Integumentary Denies abscess Neurologic Neurologic: Denies headache(s) Psychiatric Psychiatric: Denies anxiety Endocrine Endocrinology: Denies cold intolerance Hematol (more content not included)... Normal [facility] Eosinophil percentageOrdered By: ED PROVIDER on 01-22-2025 Eosinophils/100 WBC (Bld) 2.4 % Normal 0-5 [facility] Comment on above: Performed By: #### L 500.2500, L501.4021, L100.0100 #### [facility] [address] [place], [address] Erythrocyte distribution wid th ratioOrdered By: ED PROVIDER on 01-22-2025 Erythrocyte distribution width (RBC) [Ratio] 13.0 % Normal 11.6-14.6 [facility] Comment on above: Performed By: #### L 500.2500, L501.4021, L100.0100 #### [facility] [address] [place], [address] Erythrocyte distribution wid th standard deviationOrdered By: ED PROVIDER on 01-22-2025 Erythrocyte distribution width (RBC) [Ratio] 46.8 fl High 35.1-43.9 [facility] Glomerular filtration rate ( GFR) estimation/1.73 sq m using serum, plasma, or whole bOrdered By: ED PROVIDER on 01-22-2025 GFR/1.73 sq M.predicted among non-blacks MDRD (S/P/Bld) [Vol rate/Area] 76 mL/min/{1.73_m2} Normal >60 [facility] Comment on above: mL/min/1.73m2 CKD-EP I Creatinine Equation (2020) Result Comment: mL/m in/1.73m2 CKD-EPI Creatinine Equation (2020) Performed By: #### L 500.2500, L501.4021, L100.0100 #### [facility] [address] [place], [address] Hemoglobin measurementOrdere d By: ED PROVIDER on 01-22-2025 Hemoglobin (Bld) [Mass/Vol] 14.9 g/dL Normal 13.0-16.5 [facility] Comment on above: Performed By: #### L 500.2500, L501.4021, L100.0100 #### [facility] [address] [place], [address] Immature granulocytes/100 WB C Auto (Bld)Ordered By: ED PROVIDER on 01-22-2025 Immature granulocytes/100 WBC (Bld) 0.400 % 0.0-0.9 [facility] Comment on above: IG% - Immature Granu locytes (promyelocytes, myelocytes and metamyelocytes) > 1% indicates that a LEFT SHIFT is Present. L499.0042on 01-22-2025 Trop T High Sen < 6 Normal <=22 [facility] Comment on above: Performed By: #### L 499.0042 #### [facility] [address] [place], [address] L499.0043on 01-22-2025 Trop T High Sen Normal <=22 [facility] Comment on above: Result Comment: PABLITO ENT DISCHARGED Performed By: #### L 500.2500, L501.4021, L100.0100 #### [facility] [address] [place], [address] L501.4021on 01-22-2025 Trop T High Sen < 6 Normal <=22 [facility] Comment on above: Result Comment: Hemo lysis present, Results??could be affected. ?? Performed By: #### L 500.2500, L501.4021, L100.0100 #### [facility] [address] [place], [address] MCV (mean corpuscular volume ) determinationOrdered By: ED PROVIDER on 01-22-2025 MCV (RBC) [Entitic vol] 97.1 fL High 80-94 [facility] Comment on above: Performed By: #### L 500.2500, L501.4021, L100.0100 #### [facility] [address] [place], [address] Mean corpuscular hemoglobin (MCH) determinationOrdered By: ED PROVIDER on 01-22-2025 MCH (RBC) [Entitic mass] 33.3 pg High 27.0-32.0 [facility] Comment on above: Performed By: #### L 500.2500, L501.4021, L100.0100 #### [facility] [address] [place], [address] Mean corpuscular hemoglobin concentration (MCHC) determinationOrdered By: ED PROVIDER on 01-22-2025 MCHC (RBC) [Mass/Vol] 34.3 g/dL Normal 32-36 [facility] Comment on above: Performed By: #### L 500.2500, L501.4021, L100.0100 #### [facility] [address] [place], [address] Mean platelet volume determi nationOrdered By: ED PROVIDER on 01-22-2025 Platelet mean volume (Bld) [Entitic vol] 9.4 fL Normal 6.2-12.0 [facility] Comment on above: Performed By: #### L 500.2500, L501.4021, L100.0100 #### [facility] [address] [place], [address] Monocyte percentageOrdered B y: ED PROVIDER on 01-22-2025 Monocytes/100 WBC (Bld) 10.1 % High 0-10 [facility] Comment on above: Performed By: #### L 500.2500, L501.4021, L100.0100 #### [facility] [address] [place], [address] Neutrophil percentageOrdered By: ED PROVIDER on 01-22-2025 Neutrophils/100 WBC (Bld) 64.2 % Normal 47-70 [facility] Comment on above: Performed By: #### L 500.2500, L501.4021, L100.0100 #### [facility] [address] [place], [address] Nucleated red blood cell per centageOrdered By: ED PROVIDER on 01-22-2025 Nucleated RBC/100 WBC (Bld) [Ratio] 0 % 0-5 [facility] Platelet countOrdered By: ED PROVIDER on 01-22-2025 Platelets (Bld) [#/Vol] 211 10*3/uL Normal 150-450 [facility] Comment on above: Performed By: #### L 500.2500, L501.4021, L100.0100 #### [facility] [address] [place], [address] Potassium measurement (mass/ volume)Ordered By: ED PROVIDER on 01-22-2025 Potassium (Unsp spec) [Mass/Vol] 4.8 mmol/L 3.3-5.1 [facility] Comment on above: Hemolysis present, R esults could be affected. Serum creatinine measurement (mass/volume)Ordered By: ED PROVIDER on 01-22-2025 Creatinine [Mass/Vol] 1.11 mg/dL Normal 0.70-1.20 [facility] Comment on above: Performed By: #### L 500.2500, L501.4021, L100.0100 #### [facility] [address] [place], [address] Serum glucose measurement (m ass/volume)Ordered By: ED PROVIDER on 01-22-2025 Glucose [Mass/Vol] 97 mg/dL Normal 70-99 [facility] Comment on above: Performed By: #### L 500.2500, L501.4021, L100.0100 #### [facility] [address] [place], [address] Serum or plasma calcium randa urement (mass/volume)Ordered By: ED PROVIDER on 01-22-2025 Calcium [Mass/Vol] 9.5 mg/dL Normal 7.6-11.0 [facility] Comment on above: Performed By: #### L 500.2500, L501.4021, L100.0100 #### [facility] [address] [place], [address] Serum or plasma urea nitroge n measurement (mass/volume)Ordered By: ED PROVIDER on 01-22-2025 Urea nitrogen [Mass/Vol] 12 mg/dL Normal 4-19 [facility] Comment on above: Performed By: #### L 500.2500, L501.4021, L100.0100 #### [facility] [address] [place], [address] Sodium levelOrdered By: ED Madisyn LEIJA on 01-22-2025 Sodium [Moles/Vol] 139 mmol/L Normal 133-145 [facility] Comment on above: Performed By: #### L 500.2500, L501.4021, L100.0100 #### [facility] [address] [place], [address] Troponin T.cardiac [Mass/vol ume] in Serum or Plasma by High sensitivity methodOrdered By: Robert Mercer on 01-22-2025 Troponin T.cardiac High sensitivity method [Mass/Vol] < 6 ng/L <22 [facility] Comment on above: Hemolysis present, R esults could be affected. White blood cell (WBC) count Ordered By: ED PROVIDER on 01-22-2025 WBC (Bld) [#/Vol] 5.1 10*3/uL Normal 4.4-11.0 [facility] Comment on above: Performed By: #### L 500.2500, L501.4021, L100.0100 #### [facility] [address] [place], [address] Urgent Care Visit Reporton 0 11-09-2024 Urgent Care Visit Report [facility] [address], [address] [place], [place] [address] OFFICE VISIT Date of Service: 11/09/24 MR#: [id number] Acct: [id number] Name: JOVANY MUÑIZ Rep #: [id number] : 1965 Provider: FANTA Driscoll Age/Sex: 59/M Location: [facility] Status: Signed Intake Vital Signs 09/03/24 00:23 [...] mg PO QDAY 08/06/24 10/27/24 His tory [facility] Medical History Wears partial dentures High cholesterol Heartburn Gastric reflux History of diverticulitis Former smoker History of heart attack History of echocardiogram History of stress test Hypertension Cardiology follow-up encounter Sigmoid diverticulitis History of coronary artery disease Presence of stent in coronary artery (04/25/23) Essential hypertension HLD (hyperlipidemia) 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 Eduard Henley MD Status: REG CLI Referring Dr: Mitchell Dubois NP [facility]-C Sex: M C Stress Test Report Exercise [...] 11/03/241806 Date _ Jose Lockwood MD CC: [facility]-C Mitchell Dubois; Dr. Eduard Henley MD ~ Date Dictated: 11/03/241804 Date Transcribed: 11/03/241804 Train Station Server: [place] Signed [facility] Work Phone: Stress Reporton 11-03-2024 Stress Report [facility] [address] [place] [address] MR#: [id number] Acct: [id number] Name: JOVANY MUÑIZ Rep #: [id number] : 1965 59 From: Jose Lockwood MD Primary Care: Dr. Eduard Henley MD Status: REG CLI Referring Dr: Mitchell Dubois NP [facility]ER-C Sex: M C Stress Test Report Exercise [...] MD Date Dictated: 11/03/241804 Date Transcribed: 11/03/241804 Train Station Server: [place] Signed Normal [facility] Vitamin D,25 Hydroxyon 09-30 Vitamin D 25-OH 35.3 ng/mL Normal [facility] Comment on above: Order Comment: Order Date: 09/28/24Order Info: [id number] - [id number] Info: [id number] - VITD25 Result Comment: Mayte min D 25(OH) Status Range Deficiency <20 ng/mL (50nmol/L) Insufficiency 20 - 30 ng/mL (50 - 75 nmol/L) Sufficiency 30 - 100 ng/mL (75 - 250 nmol/L) Toxicity >100 ng/mL (>250 nmol/L) Performed By: #### L 501.9910, L506.1000, L500.4050, L503.0105, L500.4100 ####[facility] [address] [place], [address] [id number] DOrdered By: Cliff Henley on 09-28-2024 Vitamin D 25-Hydroxy 35.3 ng/mL [facility] Comment on above: Vitamin D 25(OH) Sta tus Range Deficiency <20 ng/mL (50nmol/L) Insufficiency 20 - 30 ng/mL (50 - 75 nmol/L) Sufficiency 30 - 100 ng/mL (75 - 250 nmol/L) Toxicity >100 ng/mL (>250 nmol/L) Albumin to globulin ratioOrd ered By: Eduard Henley on 09-28-2024 Albumin/Globulin [Mass ratio] 0.8 {ratio} Low 0.9-2.4 [facility] Bilirubin, totalOrdered By: Eduard Henley on 09-28-2024 Bilirubin [Mass/Vol] 0.50 mg/dL 0.20-1.00 [facility] Comment on above: For patients on eltr ombopag therapy, use of Dimension [place] TBIL is not recommended. Blood urea nitrogen (BUN)/cr eatinine ratioOrdered By: Eduard Henley on 09-28-2024 Urea nitrogen/Creatinine [Mass ratio] 15.0 mg/mg 10-20 [facility] Carbon dioxide measurementOr dered By: Eduard Henley on 09-28-2024 CO2 [Moles/Vol] 28.0 mmol/L 21.0-32.0 [facility] Chloride measurementOrdered By: Eduard Henley on 09-28-2024 Chloride [Moles/Vol] 104 mmol/L 98-107 [facility] Comprehensive Metabolic Prof ilon 09-28-2024 Albumin [Mass/Vol] 3.7 g/dL Normal 3.2-5.0 [facility] Comment on above: Order Comment: Order Date: 09/28/24 Order Info: [id number] - CMP Order Info: [id number] - LIPID Order Info: [id number] - PSA Performed By: #### L 501.9910, L506.1000, L500.4050, L503.0105, L500.4100 #### [facility] [address] [place], [address] Albumin/Globulin [Mass ratio] 0.8 {ratio} Low 0.9-2.4 [facility] Comment on above: Order Comment: Order Date: 09/28/24 Order Info: [id number] - CMP Order Info: [id number] - LIPID Order Info: [id number] - PSA Performed By: #### L 501.9910, L506.1000, L500.4050, L503.0105, L500.4100 #### [facility] [address] [place], [address] ALK P 66 U/L Normal 45-117 [facility] Comment on above: Order Comment: Order Date: 09/28/24 Order Info: [id number] - CMP Order Info: [id number] - LIPID Order Info: [id number] - PSA Performed By: #### L 501.9910, L506.1000, L500.4050, L503.0105, L500.4100 #### [facility] [address] [place], [address] ALT [Catalytic activity/Vol] 38 U/L Normal 16-61 [facility] Comment on above: Order Comment: Order Date: 09/28/24 Order Info: [id number] - CMP Order Info: [id number] - LIPID Order Info: [id number] - PSA Performed By: #### L 501.9910, L506.1000, L500.4050, L503.0105, L500.4100 #### [facility] [address] [place], [address] AST [Catalytic activity/Vol] 29 U/L Normal 15-37 [facility] Comment on above: Order Comment: Order Date: 09/28/24 Order Info: [id number] - CMP Order Info: [id number] - LIPID Order Info: [id number] - PSA Performed By: #### L 501.9910, L506.1000, L500.4050, L503.0105, L500.4100 #### [facility] [address] [place], [address] Bilirubin [Mass/Vol] 0.50 mg/dL Normal 0.20-1.00 [facility] Comment on above: Order Comment: Order Date: 09/28/24 Order Info: [id number] - CMP Order Info: - LIPID Order Info: [id number] - PSA Result Comment: For patients on eltrombopag therapy, use of Dimension [place] TBIL is not recommended. Performed By: #### L 501.9910, L506.1000, L500.4050, L503.0105, L500.4100 #### [facility] [address] [place], [address] BUN/CRE 15.0 RATIO Normal 10-20 [facility] Comment on above: Order Comment: Order Date: 09/28/24 Order Info: [id number] - CMP Order Info: - LIPID Order Info: [id number] - PSA Performed By: #### L 501.9910, L506.1000, L500.4050, L503.0105, L500.4100 #### [facility] [address] [place], [address] CA,Total 9.9 mg/dL Normal 8.5-10.1 [facility] Comment on above: Order Comment: Order Date: 09/28/24 Order Info: [id number] - CMP Order Info: - LIPID Order Info: [id number] - PSA Performed By: #### L 501.9910, L506.1000, L500.4050, L503.0105, L500.4100 #### [facility] [address] [place], [address] Chloride [Moles/Vol] 104 mmol/L Normal 98-107 [facility] Comment on above: Order Comment: Order Date: 09/28/24 Order Info: [id number] - CMP Order Info: [id number] - LIPID Order Info: [id number] - PSA Performed By: #### L 501.9910, L506.1000, L500.4050, L503.0105, L500.4100 #### [facility] [address] [place], [address] CO2 [Moles/Vol] 28.0 mmol/L Normal 21.0-32.0 [facility] Comment on above: Order Comment: Order Date: 09/28/24 Order Info: [id number]- - CMP Order Info: - LIPID Order Info: 1 - PSA Performed By: #### L 501.9910, L506.1000, L500.4050, L503.0105, L500.4100 #### [facility] [address] [place], [address] Creatinine [Mass/Vol] 1.20 mg/dL Normal 0.70-1.30 [facility] Comment on above: Order Comment: Order Date: 09/28/24 Order Info: [id number] - CMP Order Info: - LIPID Order Info: [id number] - PSA Result Comment: The validity of the calculated GFR GFRAA in patients over 70 years has not been determined. Clinical correlation is essential. Performed By: #### L 501.9910, L506.1000, L500.4050, L503.0105, L500.4100 #### [facility] [address] [place], [address] EST GFR - AA 79 mL/min Normal >60 [facility] Comment on above: Order Comment: Order Date: 09/28/24 Order Info: [id number] - CMP Order Info: - LIPID Order Info: [id number] - PSA Result Comment: Afri can English GFR Calc Performed By: #### L 501.9910, L506.1000, L500.4050, L503.0105, L500.4100 #### [facility] [address] [place], [address] GAP 5 Normal 5-15 [facility] Comment on above: Order Comment: Order Date: 09/28/24 Order Info: [id number] - CMP Order Info: - LIPID Order Info: [id number] - PSA Performed By: #### L 501.9910, L506.1000, L500.4050, L503.0105, L500.4100 #### [facility] [address] [place], [address] GFR/1.73 sq M.predicted among non-blacks MDRD (S/P/Bld) [Vol rate/Area] 65 mL/min/{1.73_m2} Normal >60 [facility] Comment on above: Order Comment: Order Date: 09/28/24 Order Info: 07 - CMP Order Info: - LIPID Order Info: [id number] - PSA Result Comment: Non- GFR Calc Performed By: #### L 501.9910, L506.1000, L500.4050, L503.0105, L500.4100 #### [facility] [address] [place], [address] Globulin (S) [Mass/Vol] 4.8 g/dL High 2.2-4.2 [facility] Comment on above: Order Comment: Order Date: 09/28/24 Order Info: [id number] - CMP Order Info: [id number] - LIPID Order Info: [id number] - PSA Performed By: #### L 501.9910, L506.1000, L500.4050, L503.0105, L500.4100 #### [facility] [address] [place], [address] Glucose [Mass/Vol] 105 mg/dL Normal 74-106 [facility] Comment on above: Order Comment: Order Date: 09/28/24 Order Info: [id number] - CMP Order Info: [id number] - LIPID Order Info: [id number] - PSA Result Comment: Fast ing Glucose result from 100 to 125 mg/dL suggests IMPAIRED HOMEOSTASIS per A.D.A. criteria. Performed By: #### L 501.9910, L506.1000, L500.4050, L503.0105, L500.4100 #### [facility] [address] [place], [address] Potassium [Moles/Vol] 4.4 mmol/L Normal 3.5-5.1 [facility] Comment on above: Order Comment: Order Date: 09/28/24 Order Info: [id number]- - CMP Order Info: [id number] - LIPID Order Info: [id number] - PSA Performed By: #### L 501.9910, L506.1000, L500.4050, L503.0105, L500.4100 #### [facility] [address] [place], [address] Sodium [Moles/Vol] 138 mmol/L Normal 136-145 [facility] Comment on above: Order Comment: Order Date: 09/28/24 Order Info: 07 - CMP Order Info: [id number] - LIPID Order Info: [id number] - PSA Performed By: #### L 501.9910, L506.1000, L500.4050, L503.0105, L500.4100 #### [facility] [address] [place], [address] T PROT 8.5 g/dL High 6.4-8.2 [facility] Comment on above: Order Comment: Order Date: 09/28/24 Order Info: [id number]- - CMP Order Info: [id number] - LIPID Order Info: [id number] - PSA Performed By: #### L 501.9910, L506.1000, L500.4050, L503.0105, L500.4100 #### [facility] [address] [place], [address] Urea nitrogen [Mass/Vol] 18 mg/dL Normal 7-18 [facility] Comment on above: Order Comment: Order Date: 09/28/24 Order Info: [id number]- - CMP Order Info: [id number] - LIPID Order Info: [id number] - PSA Performed By: #### L 501.9910, L506.1000, L500.4050, L503.0105, L500.4100 #### [facility] [place], [address] Estimated glomerular filtrat ion rate (GFR) AmericanOrdered By: Eduard Henley on 09-28-2024 Estimated GFR (MDRD) Amer 79 mL/min >60 [facility] Comment on above: GFR Calc Glomerular filtration rate ( GFR) estimationOrdered By: Eduard Henley on 09-28-2024 Estimated GFR (MDRD) Non-Af Amer 65 mL/min >60 [facility] Comment on above: Non- GFR Calc GFR/1.73 sq M.predicted among non-blacks MDRD (S/P/Bld) [Vol rate/Area] 65 mL/min/{1.73_m2} >60 [facility] Comment on above: Non- GFR Calc Glucose measurementOrdered B y: Eduard Henley on 09-28-2024 Glucose [Mass/Vol] 105 mg/dL 74-106 [facility] Comment on above: Fasting Glucose resu lt from 100 to 125 mg/dL suggests IMPAIRED HOMEOSTASIS per A.D.A. criteria. High density lipoprotein (HD L) measurementOrdered By: Eduard Henley on 09-28-2024 Cholesterol in HDL [Mass/Vol] 81 mg/dL >40 [facility] Comment on above: The drugs N-Acetylcy steine and Metamizole may falsely depress this assay. Reference Range HDL <40 mg/dL Low HDL Cholesterol HDL >or= 60 mg/dL High HDL Cholesterol Laboratory - Chemistry and C hemistry - challengeOrdered By: Eduard Henley on 09-28-2024 AST [Catalytic activity/Vol] 29 U/L 15-37 [facility] Lipid Profileon 09-28-2024 Cholesterol [Mass/Vol] 245 mg/dL High 200 [facility] Comment on above: Order Comment: Order Date: 09/28/24 Order Info: [id number] - CMP Order Info: [id number] - LIPID Order Info: [id number] - PSA Result Comment: <200 mg/dL Desirable 200-240 mg/dL Borderline >240 mg/dL High Risk Performed By: #### L 501.9910, L506.1000, L500.4050, L503.0105, L500.4100 #### [facility] [address] [place], [address] Cholesterol in HDL [Mass/Vol] 81 mg/dL Normal [facility] Comment on above: Order Comment: Order Date: 09/28/24 Order Info: [id number] - CMP Order Info: [id number] - LIPID Order Info: [id number] - PSA Result Comment: The drugs N-Acetylcysteine and Metamizole may falsely depress this assay. Reference Range HDL <40 mg/dL Low HDL Cholesterol HDL >or= 60 mg/dL High HDL Cholesterol Performed By: #### L 501.9910, L506.1000, L500.4050, L503.0105, L500.4100 #### [facility] [address] [place], [address] Cholesterol in LDL [Mass/Vol] 144 mg/dL High 0-130 [facility] Comment on above: Order Comment: Order Date: 09/28/24 Order Info: [id number] - CMP Order Info: [id number] - LIPID Order Info: [id number] - PSA Performed By: #### L 501.9910, L506.1000, L500.4050, L503.0105, L500.4100 #### [facility] [address] [place], [address] Cholesterol in VLDL [Mass/Vol] 20 mg/dL Normal 5-40 [facility] Comment on above: Order Comment: Order Date: 09/28/24 Order Info: [id number] - CMP Order Info: [id number] - LIPID Order Info: [id number] - PSA Performed By: #### L 501.9910, L506.1000, L500.4050, L503.0105, L500.4100 #### [facility] [address] [place], [address] Triglyceride [Mass/Vol] 101 mg/dL Normal [facility] Comment on above: Order Comment: Order Date: 09/28/24 Order Info: [id number] - CMP Order Info: [id number] - LIPID Order Info: [id number] - PSA Result Comment: The drugs N-Acetylcysteine and Metamizole may falsely depress this assay. Serum Triglycerides Reference Interval Normal <150 mg/dL Borderline high 150 - 199 mg/dL High 200 - 499 mg/dL Very High > or = 500 mg/dL Performed By: #### L 501.9910, L506.1000, L500.4050, L503.0105, L500.4100 #### [facility] [address] [place], [address] Low density lipoprotein (LDL ) cholesterol measurementOrdered By: Eduard Henley on 09-28-2024 Cholesterol in LDL [Mass/Vol] 144 mg/dL High 0-130 [facility] PSA,Total - Annual Screenon 09-28-2024 PSA,TOT SCREEN 0.78 ng/mL Normal 0.00-4.00 [facility] Comment on above: Order Comment: Order Date: 09/28/24Order Info: [id number] - CMPOrder Info: [id number] - LIPIDOrder Info: [id number] - PSA Result Comment: This test was performed using the TPSA assay method for the [employer] chemistry system. Values obtained with different assay methods cannot be used interchangably. When changing PSA assays in the course of monitoring a patient, additional sequential testing should be carried out to confirm baseline values. Performed By: #### L 501.9910, L506.1000, L500.4050, L503.0105, L500.4100 ####[facility] [address] [place], [place], [id number] Potassium measurementOrdered By: Eduard Henley on 09-28-2024 Potassium [Moles/Vol] 4.4 mmol/L 3.5-5.1 [facility] Screening prostate specific antigen (PSA) measurementOrdered By: Eduard Henley on 09-28-2024 Prostate Specific Antigen Screen 0.78 ng/mL 0.00-4.00 [facility] Comment on above: This test was perfor med using the TPSA assay method for the[employer] chemistry system. Values obtained with differentassay methods cannot be used interchangably.When changing PSA assays in the course of monitoring apatient, additional sequential testing should be carriedout to confirm baseline values. Serum anion gap measurementO rdered By: Eduard Henley on 09-28-2024 Anion gap [Moles/Vol] 5 mmol/L 5-15 [facility] Serum globulin measurementOr dered By: Eduard Henley on 09-28-2024 Globulin (S) [Mass/Vol] 4.8 g/dL High 2.2-4.2 [facility] Serum or plasma alanine pedraza otransferase (ALT) measurementOrdered By: Eduard Henley on 09-28-2024 ALT [Catalytic activity/Vol] 38 U/L 16-61 [facility] Serum or plasma albumin randa urement (mass/volume)Ordered By: Eduard Henley on 09-28-2024 Albumin [Mass/Vol] 3.7 g/dL 3.2-5.0 [facility] Serum or plasma alkaline saw sphatase measurementOrdered By: Eduard Henley on 09-28-2024 ALP [Catalytic activity/Vol] 66 U/L 45-117 [facility] Serum or plasma calcium randa urement (mass/volume)Ordered By: Eduard Henley on 09-28-2024 Calcium [Mass/Vol] 9.9 mg/dL 8.5-10.1 [facility] Serum or plasma cholesterol measurement (mass/volume)Ordered By: Eduard Henley on 09-28-2024 Cholesterol [Mass/Vol] 245 mg/dL High <200 [facility] Comment on above: <200 mg/dL Desirable 200-240 mg/dL Borderline >240 mg/dL High Risk Serum or plasma creatinine m easurement (mass/volume)Ordered By: Eduard Henley on 09-28-2024 Creatinine [Mass/Vol] 1.20 mg/dL 0.70-1.30 [facility] Comment on above: The validity of the calculated GFR & GFRAA in patients over 70 years has not been determined. Clinical correlation is essential. Serum or plasma urea nitroge n measurement (mass/volume)Ordered By: Eduard Henley on 09-28-2024 Urea nitrogen [Mass/Vol] 18 mg/dL 7-18 [facility] Sodium levelOrdered By: Rubina surendraher Henley on 09-28-2024 Sodium [Moles/Vol] 138 mmol/L 136-145 [facility] Total proteinOrdered By: Mukesh juanher Henley on 09-28-2024 Protein [Mass/Vol] 8.5 g/dL High 6.4-8.2 [facility] Triglycerides measurementOrd ered By: Eduard Henley on 09-28-2024 Triglyceride [Mass/Vol] 101 mg/dL <199 [facility] Comment on above: The drugs N-Acetylcy steine and Metamizole may falsely depress this assay.Serum Triglycerides Reference Interval Normal <150 mg/dL Borderline high 150 - 199 mg/dL High 200 - 499 mg/dL Very High > or = 500 mg/dL Very low density lipoprotein (VLDL) cholesterol measurementOrdered By: Eduard Henley on 09-28-2024 Very low density lipoprotein (VLDL) cholesterol measurement 20 mg/dL 5-40 [facility] VLDL Cholesterol 20 mg/dL 5-40 [facility] Vitamin B12on 09-28-2024 Cobalamin (Vitamin B12) [Mass/Vol] 337 pg/mL Normal 211-911 [facility] Comment on above: Order Comment: Order Date: 09/28/24Order Info: [id number] - [id number] Info: [id number] - [id number] Performed By: #### L 501.9910, L506.1000, L500.4050, L503.0105, L500.4100 ####[facility] [address] [place], [address] Vitamin B12 measurementOrder ed By: Eduard Henley on 09-28-2024 Cobalamin (Vitamin B12) [Mass/Vol] 337 pg/mL 211-911 [facility] 12 Lead EKGon 09-03-2024 12 Lead EKG [facility] Cardiovascular Services [address] [place] [address] 12 Lead EKG 09/03/24 0023 MR#: [id number] Acct: [id number] Name: JOVANY MUÑIZ Rep #: [id number] : 1965 58 From: Eileen Ray MD [...] Abnormal ECG Confirmed by FLOR SY, GUANAKO ([id number]), satellite project site monitor RUBI ROMERO ([id number]) on 09/07/2024 7:16:39 AM Referred By: TB Confirmed By: GUANAKO RAY MD 09/07/24 0716 Date Eileen Ray MD CC: Dr. Eduard Henley MD; Dr. Jesus Romero, Signed Normal [facility] Absolute neutrophil countOrd ered By: Jesus Romero on 09-03-2024 Neutrophils (Bld) [#/Vol] 3.1 10*3/uL 2.0-7.7 [facility] BNP (brain natriuretic pepti de measurement)Ordered By: Jessu Romero on 09-03-2024 Natriuretic peptide B (Bld) [Mass/Vol] 7.1 pg/mL 0-100 [facility] BNP,B-Type NATRIURETIC PEPTI Torrey 09-03-2024 Natriuretic peptide B (Bld) [Mass/Vol] 7.1 pg/mL Normal 0-100 [facility] Comment on above: Performed By: #### L 501.5425, L501.5200, L100.0100, L503.6620, L500.2500, L501.9520 ####[facility] [address] [place], [address] Basic Metabolic Profile (BMP )on 09-03-2024 BUN/CRE 14.0 RATIO Normal 10-20 [facility] Comment on above: Order Comment: 1Y Performed By: #### L 501.5425, L501.5200, L100.0100, L503.6620, L500.2500, L501.9520 ####[facility] [address] [place], [address] CA,Total 9.3 mg/dL Normal 8.5-10.1 [facility] Comment on above: Order Comment: 1Y Performed By: #### L 501.5425, L501.5200, L100.0100, L503.6620, L500.2500, L501.9520 ####[facility] [address] [place], [address] Chloride [Moles/Vol] 104 mmol/L Normal 98-107 [facility] Comment on above: Order Comment: 1Y Performed By: #### L 501.5425, L501.5200, L100.0100, L503.6620, L500.2500, L501.9520 ####[facility] [address] [place], [address] CO2 [Moles/Vol] 26.0 mmol/L Normal 21.0-32.0 [facility] Comment on above: Order Comment: 1Y Performed By: #### L 501.5425, L501.5200, L100.0100, L503.6620, L500.2500, L501.9520 ####[facility] [address] [place], [address] Creatinine [Mass/Vol] 1.29 mg/dL Normal 0.70-1.30 [facility] Comment on above: Order Comment: 1Y Result Comment: The validity of the calculated GFR GFRAA in patients over 70 years has not been determined. Clinical correlation is essential. Performed By: #### L 501.5425, L501.5200, L100.0100, L503.6620, L500.2500, L501.9520 ####[facility] [address] [place], [address] ECRCL 73.11 ml/min Normal [facility] Comment on above: Order Comment: 1Y Performed By: #### L 501.5425, L501.5200, L100.0100, L503.6620, L500.2500, L501.9520 ####[facility] [address] [place], [address] EST GFR - AA 73 mL/min Normal >60 [facility] Comment on above: Order Comment: 1Y Result Comment: Afri can English GFR Calc Performed By: #### L 501.5425, L501.5200, L100.0100, L503.6620, L500.2500, L501.9520 ####[facility] [address] [place], [address] GAP 8 Normal 5-15 [facility] Comment on above: Order Comment: 1Y Performed By: #### L 501.5425, L501.5200, L100.0100, L503.6620, L500.2500, L501.9520 ####[facility] [address] [place], [address] GFR/1.73 sq M.predicted among non-blacks MDRD (S/P/Bld) [Vol rate/Area] 60 mL/min/{1.73_m2} Normal >60 [facility] Comment on above: Order Comment: 1Y Result Comment: Non- GFR Calc Performed By: #### L 501.5425, L501.5200, L100.0100, L503.6620, L500.2500, L501.9520 ####[facility] [address] [place], [address] Glucose [Mass/Vol] 102 mg/dL Normal 74-106 [facility] Comment on above: Order Comment: 1Y Result Comment: Fast ing Glucose result from 100 to 125 mg/dL suggests IMPAIRED HOMEOSTASIS per A.D.A. criteria. Performed By: #### L 501.5425, L501.5200, L100.0100, L503.6620, L500.2500, L501.9520 ####[facility] [address] [place], [address] Potassium [Moles/Vol] 3.8 mmol/L Normal 3.5-5.1 [facility] Comment on above: Order Comment: 1Y Result Comment: Slig ht Hemolysis, Result may be falsely increased. Performed By: #### L 501.5425, L501.5200, L100.0100, L503.6620, L500.2500, L501.9520 ####[facility] [address] [place], [address] Sodium [Moles/Vol] 138 mmol/L Normal 136-145 [facility] Comment on above: Order Comment: 1Y Performed By: #### L 501.5425, L501.5200, L100.0100, L503.6620, L500.2500, L501.9520 ####[facility] [address] [place], [address] Urea nitrogen [Mass/Vol] 18 mg/dL Normal 7-18 [facility] Comment on above: Order Comment: 1Y Performed By: #### L 501.5425, L501.5200, L100.0100, L503.6620, L500.2500, L501.9520 ####[facility] [address] [place], [address] Basophil percentageOrdered B y: Jesus Romero on 09-03-2024 Basophils/100 WBC (Bld) 1.2 % High 0-1 [facility] Blood urea nitrogen (BUN)/cr eatinine ratioOrdered By: Jesus Romero on 09-03-2024 Urea nitrogen/Creatinine [Mass ratio] 14.0 mg/mg 10-20 [facility] CBC W/Diff, Automatedon 01-2 Absolute Lymph 1.72 X10 3/uL Normal 0.83-4.51 [facility] Comment on above: Performed By: #### L 501.5425, L501.5200, L100.0100, L503.6620, L500.2500, L501.9520 ####[facility] [address] [place], [address] Absolute Neut 3.1 X10 3/uL Normal 2.0-7.7 [facility] Comment on above: Performed By: #### L 501.5425, L501.5200, L100.0100, L503.6620, L500.2500, L501.9520 ####[facility] [address] [place], [address] Basophils/100 WBC (Bld) 1.2 % High 0-1 [facility] Comment on above: Performed By: #### L 501.5425, L501.5200, L100.0100, L503.6620, L500.2500, L501.9520 ####[facility] [address] [place], [address] Eosinophils/100 WBC (Bld) 3.3 % Normal 0-5 [facility] Comment on above: Performed By: #### L 501.5425, L501.5200, L100.0100, L503.6620, L500.2500, L501.9520 ####[facility] [address] [place], [address] Erythrocyte distribution width (RBC) [Ratio] 13.2 % Normal 11.6-14.6 [facility] Comment on above: Performed By: #### L 501.5425, L501.5200, L100.0100, L503.6620, L500.2500, L501.9520 ####[facility] [address] [place], [address] Hematocrit (Bld) [Volume fraction] 39.8 % Low 40-54 [facility] Comment on above: Performed By: #### L 501.5425, L501.5200, L100.0100, L503.6620, L500.2500, L501.9520 ####[facility] [address] [place], [address] Hemoglobin (Bld) [Mass/Vol] 13.4 g/dL Normal 13.0-16.5 [facility] Comment on above: Performed By: #### L 501.5425, L501.5200, L100.0100, L503.6620, L500.2500, L501.9520 ####[facility] [address] [place], [address] IG% 0.500 Normal 0.0-0.9 [facility] Comment on above: Result Comment: IG% - Immature Granulocytes (promyelocytes, myelocytes and metamyelocytes) > 1% indicates that a LEFT SHIFT is Present. Performed By: #### L 501.5425, L501.5200, L100.0100, L503.6620, L500.2500, L501.9520 ####[facility] [address] [place], [address] Lymphocytes/100 WBC (Bld) 30.3 % Normal 19-41 [facility] Comment on above: Performed By: #### L 501.5425, L501.5200, L100.0100, L503.6620, L500.2500, L501.9520 ####[facility] [address] [place], [address] MCH (RBC) [Entitic mass] 33.0 pg High 27.0-32.0 [facility] Comment on above: Performed By: #### L 501.5425, L501.5200, L100.0100, L503.6620, L500.2500, L501.9520 ####[facility] [address] [place], [address] MCHC (RBC) [Mass/Vol] 33.7 g/dL Normal 32-36 [facility] Comment on above: Performed By: #### L 501.5425, L501.5200, L100.0100, L503.6620, L500.2500, L501.9520 ####[facility] [address] [place], [address] MCV (RBC) [Entitic vol] 98.0 fL High 80-94 [facility] Comment on above: Performed By: #### L 501.5425, L501.5200, L100.0100, L503.6620, L500.2500, L501.9520 ####[facility] [address] [place], [address] Monocytes/100 WBC (Bld) 10.9 % High 0-10 [facility] Comment on above: Performed By: #### L 501.5425, L501.5200, L100.0100, L503.6620, L500.2500, L501.9520 ####[facility] [address] [place], [address] Neutrophils/100 WBC (Bld) 53.8 % Normal 47-70 [facility] Comment on above: Performed By: #### L 501.5425, L501.5200, L100.0100, L503.6620, L500.2500, L501.9520 ####[facility] [address] [place], [address] Nucleated RBC (Bld) [#/Vol] 0 10*3/uL Normal 0-5 [facility] Comment on above: Performed By: #### L 501.5425, L501.5200, L100.0100, L503.6620, L500.2500, L501.9520 ####[facility] [address] [place], [address] Platelet mean volume (Bld) [Entitic vol] 10.0 fL Normal 6.2-12.0 [facility] Comment on above: Performed By: #### L 501.5425, L501.5200, L100.0100, L503.6620, L500.2500, L501.9520 ####[facility] [address] [place], [address] Platelets (Bld) [#/Vol] 236 10*3/uL Normal 150-450 [facility] Comment on above: Performed By: #### L 501.5425, L501.5200, L100.0100, L503.6620, L500.2500, L501.9520 ####[facility] [address] [place], [address] RBC (Bld) [#/Vol] 4.06 10*6/uL Low 4.6-6.2 [facility] Comment on above: Performed By: #### L 501.5425, L501.5200, L100.0100, L503.6620, L500.2500, L501.9520 ####[facility] [address] [place], [address] RDW SD 47.3 fl High 35.1-43.9 [facility] Comment on above: Performed By: #### L 501.5425, L501.5200, L100.0100, L503.6620, L500.2500, L501.9520 ####[facility] [address] [place], [address] WBC (Bld) [#/Vol] 5.7 10*3/uL Normal 4.4-11.0 [facility] Comment on above: Performed By: #### L 501.5425, L501.5200, L100.0100, L503.6620, L500.2500, L501.9520 ####[facility] [address] [place], [address] Carbon dioxide measurementOr dered By: Jesus Romero on 09-03-2024 CO2 [Moles/Vol] 26.0 mmol/L 21.0-32.0 [facility] Chest PA and Lateralon 09-03 Chest PA and Lateral [facility] Imaging Services [address] [place] [address] Chest PA and Lateral MR#: [id number] Acct: [id number] Name: JOVANY MUÑIZ Rep #: [id number] : 1965 M 58 From: Layne Suh MD PCP: Dr. Eduard Henley MD Status: REG ER Study: Chest PA and Lateral Date of Exam: 09/03/24 Exam# [id number] Ordering Dr: Jesus Romero DO -[id number] STUDY: X-RAY CHEST REASON FOR EXAM: [...] Eduard Henley MD; Dr. 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 Performed By: #### L 300.8000 #### [facility] [address] [facility], [address] D-dimer measurement for deep venous thrombosisOrdered By: Jesus Romero on 09-03-2024 D-Dimer Quantitative (PE/DVT) 0.44 FEU/ug/m 0.27-0.49 [facility] Comment on above: NORMAL D-Dimer level (<0.50) indicates no DVT or PE. Emergency Department Summary on 09-03-2024 Emergency Department Summary [facility] Medical Records Department [address] [place] [address] Emergency Department Summary 09/03/24 MR#: [id number] Acct: [id number] Name: JOVANY MUÑIZ Rep #: [id number] : 1965 58 From: Jesus Romero DO [...] strenuous. Patient states that he saw his regulatory associate the day after Gisela and the checkup went well. [facility] Medical History Wears partial dentures High cholesterol Heartburn Gastric reflux History of diverticulitis Former smoker History of heart attack History of echocardiogram History of stress test Hypertension Cardiology follow-up encounter Sigmoid diverticulitis History of coronary artery disease Presence of stent in coronary artery (04/25/23) Essential hypertension HLD (hyperlipidemia) Old myocardial infarction 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) Home Medications ???Medication ???Instructions ???Recorded ???Last Taken ???Type aspirin 81 mg tablet,delayed 81 mg PO QDAY heart [facility] 08/06/17 09/26/23 History release (Adult Low Dose [...] noted Respi (more content not included)... Normal [facility] Eosinophil percentageOrdered By: Jesus Romero on 09-03-2024 Eosinophils/100 WBC (Bld) 3.3 % 0-5 [facility] Erythrocyte distribution wid th ratioOrdered By: Jesus Romero on 09-03-2024 Erythrocyte distribution width (RBC) [Ratio] 13.2 % 11.6-14.6 [facility] Erythrocyte distribution wid th standard deviationOrdered By: Jesus Romero on 09-03-2024 Erythrocyte distribution width (RBC) [Entitic vol] 47.3 fL High 35.1-43.9 [facility] Estimated glomerular filtrat ion rate (GFR) AmericanOrdered By: Jesus Romero on 09-03-2024 Estimated GFR (MDRD) Amer 73 mL/min >60 [facility] Comment on above: GFR Calc Estimation of creatinine liudmila aranceOrdered By: Jesus Romero on 09-03-2024 Estimated Creatinine Clearance Calc 73.11 ml/min [facility] Glomerular filtration rate ( GFR) estimationOrdered By: Jesus Romero on 09-03-2024 Estimated GFR (MDRD) Non-Af Amer 60 mL/min >60 [facility] Comment on above: Non- GFR Calc Glucose measurementOrdered B y: Jesus Romero on 09-03-2024 Glucose [Mass/Vol] 102 mg/dL 74-106 [facility] Comment on above: Fasting Glucose resu lt from 100 to 125 mg/dL suggests IMPAIRED HOMEOSTASIS per A.D.A. criteria. Hematocrit Auto (Bld) [Volum e fraction]Ordered By: Jesus Romero on 09-03-2024 Hematocrit (Bld) [Volume fraction] 39.8 % Low 40-54 [facility] Hemoglobin measurementOrdere d By: Jesus Romero on 09-03-2024 Hemoglobin (Bld) [Mass/Vol] 13.4 g/dL 13.0-16.5 [facility] Immature granulocytes/100 WB C Auto (Bld)Ordered By: Jesus Romero on 09-03-2024 Immature granulocytes/100 WBC (Bld) 0.500 % 0.0-0.9 [facility] Comment on above: IG% - Immature Granu locytes (promyelocytes, myelocytes and metamyelocytes) > 1% indicates that a LEFT SHIFT is Present. Influenza virus A and B and SARS-CoV-2 (COVID-19) and Respiratory syncytial virus RNAOrdered By: Jesus Romero on 09-03-2024 SARS-CoV-2 (COVID-19) RNA LINDSAY+probe Ql (Unsp spec) [facility] L501.4020on 09-03-2024 TROPONIN-I HS 6 pg/mL Normal 3.0-78.0 [facility] Comment on above: Order Comment: 2 Result Comment: Plea se Note: New Test Units and Gender Specific Reference Ranges. For more information see Policy Stat Procedure [place] High Sensitivity Troponin (TNIH) and attachments. Performed By: #### L 500.2500, L501.4021, L100.0100 #### [facility] [address] [place], [address] L501.5425on 09-03-2024 TROPONIN-I HS 5 pg/mL Normal 3.0-78.0 [facility] Comment on above: Order Comment: 1Y Result Comment: Plea se Note: New Test Units and Gender Specific Reference Ranges. For more information see Policy Stat Procedure [place] High Sensitivity Troponin (TNIH) and attachments. Performed By: #### L 501.5425, L501.5200, L100.0100, L503.6620, L500.2500, L501.9520 ####[facility] [address] [place], [address] Lymphocytes Auto (Unsp spec) [#/Vol]Ordered By: Jesus Romero on 09-03-2024 Lymphocytes (Bld) [#/Vol] 1.72 10*3/uL 0.83-4.51 [facility] Lymphocytes/100 WBC Auto (Un sp spec)Ordered By: Jesus Romero on 09-03-2024 Lymphocytes/100 WBC (Bld) 30.3 % 19-41 [facility] M100.678on 09-03-2024 M100.678 Pending SARS-CoV-2 (COVID 19) Negative INFLUENZA A Negative INFLUENZA B Negative RSV PCR Negative Normal [facility] Comment on above: Performed By: #### L 500.2500, L501.4021, L100.0100 #### [facility] [address] [place], [address] MCV (mean corpuscular volume ) determinationOrdered By: Jesus Romero on 09-03-2024 MCV (RBC) [Entitic vol] 98.0 fL High 80-94 [facility] Magnesiumon 09-03-2024 Magnesium [Mass/Vol] 2.4 mg/dL Normal 1.6-2.6 [facility] Comment on above: Order Comment: 1Y Result Comment: Slig ht Hemolysis, Result may be falsely increased. Performed By: #### L 501.5425, L501.5200, L100.0100, L503.6620, L500.2500, L501.9520 ####[facility] [id number] [place], [address] Magnesium measurementOrdered By: Jesus Romero on 09-03-2024 Magnesium [Mass/Vol] 2.4 mg/dL 1.6-2.6 [facility] Comment on above: Slight Hemolysis, Re sult may be falsely increased. Mean corpuscular hemoglobin (MCH) determinationOrdered By: Jesus Romero on 09-03-2024 MCH (RBC) [Entitic mass] 33.0 pg High 27.0-32.0 [facility] Mean corpuscular hemoglobin concentration (MCHC) determinationOrdered By: Jesus Romero on 09-03-2024 MCHC (RBC) [Mass/Vol] 33.7 g/dL 32-36 [facility] Mean platelet volume determi nationOrdered By: Jesus Romero on 09-03-2024 Platelet mean volume (Bld) [Entitic vol] 10.0 fL 6.2-12.0 [facility] Monocyte percentageOrdered B y: Jesus Romero on 09-03-2024 Monocytes/100 WBC (Bld) 10.9 % High 0-10 [facility] Neutrophil percentageOrdered By: Jesus Romero on 09-03-2024 Neutrophils/100 WBC (Bld) 53.8 % 47-70 [facility] Nucleated red blood cell per centageOrdered By: Jesus Romero on 09-03-2024 Nucleated RBC/100 WBC (Bld) [Ratio] 0 % 0-5 [facility] Platelet countOrdered By: Imtiaz Romero on 09-03-2024 Platelets (Bld) [#/Vol] 236 10*3/uL 150-450 [facility] Potassium measurementOrdered By: Jesus Romero on 09-03-2024 Potassium [Moles/Vol] 3.8 mmol/L 3.5-5.1 [facility] Comment on above: Slight Hemolysis, Re sult may be falsely increased. RBC Auto (Bld) [#/Vol]Ordere d By: Jesus Romero on 09-03-2024 RBC (Bld) [#/Vol] 4.06 10*6/uL Low 4.6-6.2 [facility] Serum anion gap measurementO rdered By: Jesus Romero on 09-03-2024 Anion gap [Moles/Vol] 8 mmol/L 5-15 [facility] Serum or plasma calcium randa urement (mass/volume)Ordered By: Jesus Romero on 09-03-2024 Calcium [Mass/Vol] 9.3 mg/dL 8.5-10.1 [facility] Serum or plasma creatinine m easurement (mass/volume)Ordered By: Jesus Romero on 09-03-2024 Creatinine [Mass/Vol] 1.29 mg/dL 0.70-1.30 [facility] Comment on above: The validity of the calculated GFR & GFRAA in patients over 70 years has not been determined. Clinical correlation is essential. Serum or plasma urea nitroge n measurement (mass/volume)Ordered By: Jesus Romero on 09-03-2024 Urea nitrogen [Mass/Vol] 18 mg/dL 7-18 [facility] Sodium levelOrdered By: Amanda Romero on 09-03-2024 Sodium [Moles/Vol] 138 mmol/L 136-145 [facility] TSH QnOrdered By: Jesus hussein on 09-03-2024 Thyroid Stimulating Hormone (TSH) 2.110 uIU/mL 0.358-3.740 [facility] Thyroid Stim Hormone (TSH)on 09-03-2024 TSH 2.110 uIU/mL Normal 0.358-3.740 [facility] Comment on above: Order Comment: 1Y Performed By: #### L 501.5425, L501.5200, L100.0100, L503.6620, L500.2500, L501.9520 ####[facility] [id number] [place], [place], [id number] Troponin IOrdered By: Jesus Romero on 09-03-2024 Troponin I High Sensitivity 6 pg/mL 3.0-78.0 [facility] Comment on above: Please Note: New Joan t Units and Gender Specific Reference Ranges. For more information see Policy Stat Procedure [place] High Sensitivity Troponin (TNIH) and attachments. White blood cell (WBC) count Ordered By: Jesus Romero on 09-03-2024 WBC (Bld) [#/Vol] 5.7 10*3/uL 4.4-11.0 [facility] Cardiology Visit Reporton Cardiology Visit Report [facility] [address] [place] [address] OFFICE VISIT Date of Service: 08/06/24 MR#: [id number] Acct: [id number] Name: JOVANY MUÑIZ Rep #: [id number] : 1965 Provider: Dr. Jose Lockwood MD Age/Sex: 58/M Location: [facility] Status: Signed HPI HPI History of Present Illness Details: This is a 58-year-old white male who presents today for outpatient cardiovascular follow-up regarding a history of underlying CAD, PCI, hyperlipidemia, and hypertension. 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 Assessment and Plan Assessment and Plan Patient Instructions: Patient advised by front end manager staff to proceed to ER for evaluation. No exam completed at this office. . 05/18/24 1422 Date Akua Vang NP-C Jacinda Signature: Date (if applicable) CC: Normal [facility] Basophil percentageOrdered B y: Carlita Velasquez on 09-10-2023 Bilirubin [Mass/Vol] 0.40 mg/dL 0.20-1.00 [facility] Comment on above: For patients on eltr ombopag therapy, use of Dimension [place] TBIL is not recommended. Chloride [Moles/Vol] 104 mmol/L 98-107 [facility] Glucose [Mass/Vol] 109 mg/dL 74-106 [facility] Comment on above: Fasting Glucose resu lt from 100 to 125 mg/dL suggests IMPAIRED HOMEOSTASIS per A.D.A. criteria. Hemoglobin (Bld) [Mass/Vol] 15.4 g/dL 13.0-16.5 [facility] Potassium [Moles/Vol] 4.6 mmol/L 3.5-5.1 [facility] Protein [Mass/Vol] 8.0 g/dL 6.4-8.2 [facility] Sodium [Moles/Vol] 133 mmol/L 136-145 [facility] WBC (Bld) [#/Vol] 5.9 10*3/uL 4.4-11.0 [facility] Determination of erythrocyte mean corpuscular volume (MCV)Ordered By: Carlita Statlexi on 09-10-2023 MCV (RBC) [Entitic vol] 97.1 fL 80-94 [facility] Erythrocyte distribution wid th ratioOrdered By: [facility] on 09-10-2023 Erythrocyte distribution width (RBC) [Ratio] 13.3 % 11.6-14.6 [facility] Erythrocyte distribution wid th standard deviationOrdered By: [facility] on 09-10-2023 Erythrocyte distribution width (RBC) [Entitic vol] 47.8 fL 35.1-43.9 [facility] Hematocrit Auto (Bld) [Volum e fraction]Ordered By: [facility] on 09-10-2023 Hematocrit (Bld) [Volume fraction] 46.5 % 40-54 [facility] Laboratory - Chemistry and C hemistry - challengeOrdered By: [facility] on 09-10-2023 Albumin/Globulin [Mass ratio] 0.9 {ratio} 0.9-2.4 [facility] ALP [Catalytic activity/Vol] 63 U/L 45-117 [facility] ALT [Catalytic activity/Vol] 46 U/L 16-61 [facility] CO2 [Moles/Vol] 25.0 mmol/L 21.0-32.0 [facility] Cobalamin (Vitamin B12) [Mass/Vol] 438 pg/mL 211-911 [facility] Globulin (S) [Mass/Vol] 4.3 g/dL 2.2-4.2 [facility] Urea nitrogen/Creatinine [Mass ratio] 20.5 mg/mg 10-20 [facility] Laboratory - Hematology and Cell countsOrdered By: Carlita Velasquez on 09-10-2023 MCH (RBC) [Entitic mass] 32.2 pg 27.0-32.0 [facility] MCHC (RBC) [Mass/Vol] 33.1 g/dL 32-36 [facility] Platelets (Bld) [#/Vol] 260 10*3/uL 150-450 [facility] No Panel InformationOrdered By: Carlita Velasquez on 09-10-2023 Estimated GFR (MDRD) Amer 107 mL/min >60 [facility] Comment on above: GFR Calc Estimated GFR (MDRD) Non-Af Amer 89 mL/min >60 [facility] Comment on above: Non- GFR Calc Platelet mean volume Codey-Ec ker (Bld) [Entitic vol]Ordered By: Carlita Velasquez on 09-10-2023 Platelet mean volume (Bld) [Entitic vol] 9.9 fL 6.2-12.0 [facility] RBC Auto (Bld) [#/Vol]Ordere d By: Carlita Velasquez on 09-10-2023 RBC (Bld) [#/Vol] 4.79 10*6/uL 4.6-6.2 [facility] Serum or plasma calcitriol m easurement (mass/volume)Ordered By: Carlita Velasquez on 09-10-2023 1,25-dihydroxyvitamin D3 [Mass/Vol] 33.6 pg/mL 24.8-81.5 [facility] Comment on above: Performed at: [address] [id number] Director: Brandie Dial MD, Phone: [phone] Serum or plasma calcium randa urement (mass/volume)Ordered By: Carlita Velasquez on 09-10-2023 Calcium [Mass/Vol] 9.3 mg/dL 8.5-10.1 [facility] Serum or plasma creatinine m easurement (mass/volume)Ordered By: Carlita Velasquez on 09-10-2023 Creatinine [Mass/Vol] 0.93 mg/dL 0.70-1.30 [facility] Comment on above: The validity of the calculated GFR & GFRAA in patients over 70 years has not been determined. Clinical correlation is essential. Serum or plasma urea nitroge n measurement (mass/volume)Ordered By: Carlita Velasquez on 09-10-2023 Urea nitrogen [Mass/Vol] 19 mg/dL 7-18 [facility] Thin prep Papanicolaou smear with manual screeningOrdered By: Carlita Velasquez on 09-10-2023 Thin prep Papanicolaou smear with manual screening 3.7 g/dL 3.2-5.0 [facility] Thin prep Papanicolaou smear with manual screening 32 U/L 15-37 [facility] Thin prep Papanicolaou smear with manual screening 4 5-15 [facility] Whole blood hemoglobin A1c/t otal hemoglobin ratio (mass fraction)Ordered By: Carlita Velasquez on 09-10-2023 HbA1c (Bld) [Mass fraction] 5.5 % 3.8-5.6 [facility] Comment on above: Normal < 5.7 % Predi abetic 5.7 - 6.4 % Diabetic >or= 6.5 % Please note range changes. Basophil percentageOrdered B y: Mitchell Dubois on 07-07-2023 Bilirubin [Mass/Vol] 0.50 mg/dL 0.20-1.00 [facility] Comment on above: For patients on eltr ombopag therapy, use of Dimension [place] TBIL is not recommended. Cholesterol [Mass/Vol] 152 mg/dL <200 [facility] Comment on above: <200 mg/dL Desirable 200-240 mg/dL Borderline >240 mg/dL High Risk Protein [Mass/Vol] 8.2 g/dL 6.4-8.2 [facility] Triglyceride [Mass/Vol] 140 mg/dL <199 [facility] Comment on above: The drugs N-Acetylcy steine and Metamizole may falsely depress this assay.Serum Triglycerides Reference Interval Normal <150 mg/dL Borderline high 150 - 199 mg/dL High 200 - 499 mg/dL Very High > or = 500 mg/dL Direct bilirubinOrdered By: Mitchell Dubois on 07-07-2023 Bilirubin.direct [Mass/Vol] 0.17 mg/dL 0.00-0.30 [facility] Laboratory - Chemistry and C hemistry - challengeOrdered By: Mitchell Dubois on 07-07-2023 ALP [Catalytic activity/Vol] 72 U/L 45-117 [facility] ALT [Catalytic activity/Vol] 52 U/L 16-61 [facility] Globulin (S) [Mass/Vol] 4.6 g/dL 2.2-4.2 [facility] Serum or plasma albumin randa urement (mass/volume)Ordered By: Mitchell Dubois on 07-07-2023 Albumin [Mass/Vol] 3.6 g/dL 3.2-5.0 [facility] Serum or plasma cholesterol in HDL measurement (mass/volume)Ordered By: Mitchell Dubois on 07-07-2023 Cholesterol in HDL [Mass/Vol] 65 mg/dL >40 [facility] Comment on above: The drugs N-Acetylcy steine and Metamizole may falsely depress this assay. Reference Range HDL <40 mg/dL Low HDL Cholesterol HDL >or= 60 mg/dL High HDL Cholesterol Serum or plasma cholesterol in VLDL measurement (mass/volume)Ordered By: Mitchell Dubois on 07-07-2023 Cholesterol in VLDL [Mass/Vol] 28 mg/dL 5-40 [facility] Serum or plasma low density lipoprotein (LDL) cholesterol measurement (mass/volume)Ordered By: Mitchell Dubios on 07-07-2023 Cholesterol in LDL [Mass/Vol] 59 mg/dL 0-130 [facility] Thin prep Papanicolaou smear with manual screeningOrdered By: Mitchell Dubois on 07-07-2023 Thin prep Papanicolaou smear with manual screening 31 U/L 15-37 [facility] Absolute lymphocyte countOrd ered By: Meliza Ramírez on 06-15-2023 Lymphocytes Auto (Unsp spec) [#/Vol] 0.73 10*3/uL 0.83-4.51 [facility] Basophil percentageOrdered B y: Meliza Ramírez on 06-15-2023 Basophils/100 WBC (Bld) 0.3 % 0-1 [facility] Bilirubin [Mass/Vol] 0.50 mg/dL 0.20-1.00 [facility] Comment on above: For patients on eltr ombopag therapy, use of Dimension [place] TBIL is not recommended. Chloride [Moles/Vol] 109 mmol/L 98-107 [facility] Eosinophils/100 WBC (Bld) 2.6 % 0-5 [facility] Glucose [Mass/Vol] 93 mg/dL 74-106 [facility] Neutrophils (Bld) [#/Vol] 5.7 10*3/uL 2.0-7.7 [facility] Neutrophils/100 WBC (Bld) 81.6 % 47-70 [facility] Potassium [Moles/Vol] 3.6 mmol/L 3.5-5.1 [facility] Protein [Mass/Vol] 6.8 g/dL 6.4-8.2 [facility] Sodium [Moles/Vol] 138 mmol/L 136-145 [facility] WBC (Bld) [#/Vol] 7.0 10*3/uL 4.4-11.0 [facility] Blood erythrocytes count (nu mber/volume)Ordered By: Meliza Ramírez on 06-15-2023 RBC (Bld) [#/Vol] 3.60 10*6/uL 4.6-6.2 [facility] Blood hemoglobin measurement (mass/volume)Ordered By: Meliza Ramírez on 06-15-2023 Hemoglobin (Bld) [Mass/Vol] 11.7 g/dL 13.0-16.5 [facility] Blood lymphocytes/100 leukoc ytesOrdered By: Meliza Ramírez on 06-15-2023 Lymphocytes/100 WBC (Bld) 10.5 % 19-41 [facility] Blood monocytes/100 leukocyt esOrdered By: Meliza Ramírez on 06-15-2023 Monocytes/100 WBC (Bld) 4.6 % 0-10 [facility] Blood platelet mean volumeOr dered By: Meliza Ramírez on 06-15-2023 Platelet mean volume (Bld) [Entitic vol] 9.9 fL 6.2-12.0 [facility] Determination of erythrocyte mean corpuscular volume (MCV)Ordered By: Meliza Ramírez on 06-15-2023 MCV (RBC) [Entitic vol] 101.4 fL 80-94 [facility] Hematocrit Auto (Bld) [Volum e fraction]Ordered By: Meliza Ramírez on 06-15-2023 Hematocrit (Bld) [Volume fraction] 36.5 % 40-54 [facility] Laboratory - Chemistry and C hemistry - challengeOrdered By: Meliza Ramírez on 06-15-2023 ALP [Catalytic activity/Vol] 61 U/L 45-117 [facility] ALT [Catalytic activity/Vol] 22 U/L 16-61 [facility] CO2 [Moles/Vol] 22.0 mmol/L 21.0-32.0 [facility] Globulin (S) [Mass/Vol] 4.3 g/dL 2.2-4.2 [facility] Urea nitrogen/Creatinine [Mass ratio] 11.1 mg/mg 10-20 [facility] Laboratory - Hematology and Cell countsOrdered By: Meliza Ramírez on 06-15-2023 Erythrocyte distribution width (RBC) [Entitic vol] 50.3 fL 35.1-43.9 [facility] Erythrocyte distribution width (RBC) [Ratio] 13.4 % 11.6-14.6 [facility] Immature granulocytes/100 WBC (Bld) 0.400 % 0.0-0.9 [facility] Comment on above: IG% - Immature Granu locytes (promyelocytes, myelocytes and metamyelocytes) > 1% indicates that a LEFT SHIFT is Present. MCH (RBC) [Entitic mass] 32.5 pg 27.0-32.0 [facility] Nucleated RBC/100 WBC (Bld) [Ratio] 0 % 0-5 [facility] MCHC Auto (RBC) [Mass/Vol]Or dered By: Meliza Ramírez on 06-15-2023 MCHC (RBC) [Mass/Vol] 32.1 g/dL 32-36 [facility] No Panel InformationOrdered By: Meliza Ramírez on 06-15-2023 Estimated Creatinine Clearance Calc 107.78 ml/min [facility] Estimated GFR (MDRD) Amer 124 mL/min >60 [facility] Comment on above: GFR Calc Estimated GFR (MDRD) Non-Af Amer 103 mL/min >60 [facility] Comment on above: Non- GFR Calc Platelets bldOrdered By: Rubén Ramírez on 06-15-2023 Platelets (Bld) [#/Vol] 205 10*3/uL 150-450 [facility] Serum or plasma albumin randa urement (mass/volume)Ordered By: Meliza Ramírez on 06-15-2023 Albumin [Mass/Vol] 2.5 g/dL 3.2-5.0 [facility] Serum or plasma albumin/glob ulin mass ratioOrdered By: Meliza Ramírez on 06-15-2023 Albumin/Globulin [Mass ratio] 0.6 {ratio} 0.9-2.4 [facility] Serum or plasma calcium randa urement (mass/volume)Ordered By: Meliza Ramírez on 06-15-2023 Calcium [Mass/Vol] 7.9 mg/dL 8.5-10.1 [facility] Serum or plasma creatinine m easurement (mass/volume)Ordered By: Meliza Ramírez on 06-15-2023 Creatinine [Mass/Vol] 0.81 mg/dL 0.70-1.30 [facility] Comment on above: The validity of the calculated GFR & GFRAA in patients over 70 years has not been determined. Clinical correlation is essential. Serum or plasma urea nitroge n measurement (mass/volume)Ordered By: Meliza Ramírez on 06-15-2023 Urea nitrogen [Mass/Vol] 9 mg/dL 7-18 [facility] Thin prep Papanicolaou smear with manual screeningOrdered By: Meliza Ramírez on 06-15-2023 Thin prep Papanicolaou smear with manual screening 12 U/L 15-37 [facility] Thin prep Papanicolaou smear with manual screening 7 5-15 [facility] Absolute lymphocyte countOrd ered By: Donta Swenson on 06-14-2023 Lymphocytes Auto (Unsp spec) [#/Vol] 0.90 10*3/uL 0.83-4.51 [facility] Basophil percentageOrdered B y: Donta Swenson on 06-14-2023 Basophil percentage 0 SEEN /hpf 0-5 [facility] Basophils/100 WBC (Bld) 0.3 % 0-1 [facility] Bilirubin [Mass/Vol] 0.60 mg/dL 0.20-1.00 [facility] Comment on above: For patients on eltr ombopag therapy, use of Dimension [place] TBIL is not recommended. Chloride [Moles/Vol] 108 mmol/L 98-107 [facility] Eosinophils/100 WBC (Bld) 2.5 % 0-5 [facility] Glucose [Mass/Vol] 119 mg/dL 74-106 [facility] Comment on above: Fasting Glucose resu lt from 100 to 125 mg/dL suggests IMPAIRED HOMEOSTASIS per A.D.A. criteria. Neutrophils (Bld) [#/Vol] 7.4 10*3/uL 2.0-7.7 [facility] Neutrophils/100 WBC (Bld) 83.8 % 47-70 [facility] Potassium [Moles/Vol] 4.4 mmol/L 3.5-5.1 [facility] Protein [Mass/Vol] 8.0 g/dL 6.4-8.2 [facility] Sodium [Moles/Vol] 139 mmol/L 136-145 [facility] WBC (Bld) [#/Vol] 8.9 10*3/uL 4.4-11.0 [facility] Bilirubin Test strip Ql (U)O rdered By: Donta Swenson on 06-14-2023 Bilirubin Ql (U) Negative Negative [facility] Blood erythrocytes count (nu mber/volume)Ordered By: Donta Swenson on 06-14-2023 RBC (Bld) [#/Vol] 4.32 10*6/uL 4.6-6.2 [facility] Blood hemoglobin measurement (mass/volume)Ordered By: Donta Swenson on 06-14-2023 Hemoglobin (Bld) [Mass/Vol] 14.1 g/dL 13.0-16.5 [facility] Blood lymphocytes/100 leukoc ytesOrdered By: Donta Swenson on 06-14-2023 Lymphocytes/100 WBC (Bld) 10.2 % 19-41 [facility] Blood monocytes/100 leukocyt esOrdered By: Donta Swenson on 06-14-2023 Monocytes/100 WBC (Bld) 2.7 % 0-10 [facility] Blood platelet mean volumeOr dered By: Donta Swenson on 06-14-2023 Platelet mean volume (Bld) [Entitic vol] 9.4 fL 6.2-12.0 [facility] Determination of erythrocyte mean corpuscular volume (MCV)Ordered By: Donta Swenson on 06-14-2023 MCV (RBC) [Entitic vol] 100.2 fL 80-94 [facility] Hematocrit Auto (Bld) [Volum e fraction]Ordered By: Donta Swenson on 06-14-2023 Hematocrit (Bld) [Volume fraction] 43.3 % 40-54 [facility] Ketones Test strip Ql (U)Ord ered By: Donta Swenson on 06-14-2023 Ketones Ql (U) Negative Negative [facility] Laboratory - Chemistry and C hemistry - challengeOrdered By: Donta Swenson on 06-14-2023 ALP [Catalytic activity/Vol] 72 U/L 45-117 [facility] ALT [Catalytic activity/Vol] 30 U/L 16-61 [facility] CO2 [Moles/Vol] 27.0 mmol/L 21.0-32.0 [facility] Globulin (S) [Mass/Vol] 4.8 g/dL 2.2-4.2 [facility] Lipase [Catalytic activity/Vol] 235 U/L 13-75 [facility] Comment on above: Please note:LIPASE r evised reference range effective 22. New Lipase methodology. Expected to produce lower values than the previous assay method. NEW Reference Range: 13 - 75 U/L Urea nitrogen/Creatinine [Mass ratio] 11.9 mg/mg 10-20 [facility] Laboratory - Hematology and Cell countsOrdered By: Donta Swenson on 06-14-2023 Erythrocyte distribution width (RBC) [Entitic vol] 48.7 fL 35.1-43.9 [facility] Erythrocyte distribution width (RBC) [Ratio] 13.1 % 11.6-14.6 [facility] Immature granulocytes/100 WBC (Bld) 0.500 % 0.0-0.9 [facility] Comment on above: IG% - Immature Granu locytes (promyelocytes, myelocytes and metamyelocytes) > 1% indicates that a LEFT SHIFT is Present. MCH (RBC) [Entitic mass] 32.6 pg 27.0-32.0 [facility] Nucleated RBC/100 WBC (Bld) [Ratio] 0 % 0-5 [facility] MCHC Auto (RBC) [Mass/Vol]Or dered By: Donta Swenson on 06-14-2023 MCHC (RBC) [Mass/Vol] 32.6 g/dL 32-36 [facility] Mucus LM Ql (Urine sed)Order ed By: Donta Swenson on 06-14-2023 Mucus Ql (Urine sed) 0 SEEN /hpf [facility] Nitrite Test strip Ql (U)Ord ered By: Donta Swenson on 06-14-2023 Nitrite Ql (U) Negative Negative [facility] No Panel InformationOrdered By: Donta Swenson on 06-14-2023 Estimated Creatinine Clearance Calc 80.09 ml/min [facility] Estimated GFR (MDRD) Amer 89 mL/min >60 [facility] Comment on above: GFR Calc Estimated GFR (MDRD) Non-Af Amer 73 mL/min >60 [facility] Comment on above: Non- GFR Calc Platelets bldOrdered By: Goldie Swenson on 06-14-2023 Platelets (Bld) [#/Vol] 251 10*3/uL 150-450 [facility] Protein Test strip Ql (U)Ord ered By: Donta Swenson on 06-14-2023 Protein Ql (U) Negative Negative [facility] Serum or plasma albumin randa urement (mass/volume)Ordered By: Donta Swenson on 06-14-2023 Albumin [Mass/Vol] 3.2 g/dL 3.2-5.0 [facility] Serum or plasma albumin/glob ulin mass ratioOrdered By: Donta Swenson on 06-14-2023 Albumin/Globulin [Mass ratio] 0.7 {ratio} 0.9-2.4 [facility] Serum or plasma calcium randa urement (mass/volume)Ordered By: Donta Swenson on 06-14-2023 Calcium [Mass/Vol] 9.0 mg/dL 8.5-10.1 [facility] Serum or plasma creatinine m easurement (mass/volume)Ordered By: Donta Swenson on 06-14-2023 Creatinine [Mass/Vol] 1.09 mg/dL 0.70-1.30 [facility] Comment on above: The validity of the calculated GFR & GFRAA in patients over 70 years has not been determined. Clinical correlation is essential. Serum or plasma urea nitroge n measurement (mass/volume)Ordered By: Donta Swenson on 06-14-2023 Urea nitrogen [Mass/Vol] 13 mg/dL 7-18 [facility] Squamous epithelial cells de tection in urine sediment by light microscopyOrdered By: Donta Swenson on 06-14-2023 Epithelial cells.squamous LM Ql (Urine sed) 0 SEEN /hpf 0-5 [facility] Thin prep Papanicolaou smear with manual screeningOrdered By: Donta Swenson on 06-14-2023 Thin prep Papanicolaou smear with manual screening 18 U/L 15-37 [facility] Thin prep Papanicolaou smear with manual screening 4 5-15 [facility] Urine blood detectionOrdered By: Donta Swenson on 06-14-2023 RBC Ql (U) Negative Negative [facility] RBC Ql (U) 0 SEEN /hpf 0-5 [facility] Urine clarityOrdered By: Goldie Swenson on 06-14-2023 Clarity (U) Clear Clear [facility] Urine color determinationOrd ered By: Donta Swenson on 06-14-2023 Color (U) Yellow Yellow [facility] Urine glucose detectionOrder ed By: Donta Swenson on 06-14-2023 Glucose Ql (U) Normal mg/dl Normal [facility] Urine leukocyte esterase det ection by dipstickOrdered By: Donta Swenson on 06-14-2023 Leukocyte esterase Test strip Ql (U) Negative Negative [facility] Urine pHOrdered By: Donta dickerson on 06-14-2023 pH (U) 7.0 [pH] 5.0 - 8.0 [facility] Urine sediment bacteria coun t by microscopy (number/high power field)Ordered By: Donta Swenson on 06-14-2023 Bacteria LM.HPF (Urine sed) [#/Area] 0 /[HPF] None Seen [facility] Urine specific gravity measu rementOrdered By: Donta Swenson on 06-14-2023 Specific gravity (U) [Rel density] 1.010 1.002-1.030 [facility] Urobilinogen Auto test strip Ql (U)Ordered By: Donta Swenson on 06-14-2023 Urobilinogen Ql (U) Normal mg/dl Normal [facility] Basophil percentageOrdered B y: Sergei Henley on 06-02-2023 Bilirubin [Mass/Vol] 0.30 mg/dL 0.20-1.00 [facility] Comment on above: For patients on eltr ombopag therapy, use of Dimension [place] TBIL is not recommended. Chloride [Moles/Vol] 109 mmol/L 98-107 [facility] Glucose [Mass/Vol] 103 mg/dL 74-106 [facility] Comment on above: Fasting Glucose resu lt from 100 to 125 mg/dL suggests IMPAIRED HOMEOSTASIS per A.D.A. criteria. Potassium [Moles/Vol] 4.6 mmol/L 3.5-5.1 [facility] Protein [Mass/Vol] 7.6 g/dL 6.4-8.2 [facility] Sodium [Moles/Vol] 141 mmol/L 136-145 [facility] WBC (Bld) [#/Vol] 6.3 10*3/uL 4.4-11.0 [facility] Blood erythrocytes count (nu mber/volume)Ordered By: Sergei Henley on 06-02-2023 RBC (Bld) [#/Vol] 4.21 10*6/uL 4.6-6.2 [facility] Blood hemoglobin measurement (mass/volume)Ordered By: Sergei Henley on 06-02-2023 Hemoglobin (Bld) [Mass/Vol] 13.7 g/dL 13.0-16.5 [facility] Blood platelet mean volumeOr dered By: Sergei Henley on 06-02-2023 Platelet mean volume (Bld) [Entitic vol] 9.8 fL 6.2-12.0 [facility] Determination of erythrocyte mean corpuscular volume (MCV)Ordered By: Sergei Henley on 06-02-2023 MCV (RBC) [Entitic vol] 100.7 fL 80-94 [facility] Erythrocyte sedimentation ra teOrdered By: Sergei Henley on 06-02-2023 ESR (Bld) [Velocity] 8 mm/h 0-20 [facility] Hematocrit Auto (Bld) [Volum e fraction]Ordered By: Sergei Henley on 06-02-2023 Hematocrit (Bld) [Volume fraction] 42.4 % 40-54 [facility] Iron measurement (mass/mass) Ordered By: Sergei Henley on 06-02-2023 Iron (Unsp spec) [Mass/Mass] 101 ug/dL 65-175 [facility] Laboratory - Chemistry and C hemistry - challengeOrdered By: Sergei Henley on 06-02-2023 ALP [Catalytic activity/Vol] 72 U/L 45-117 [facility] ALT [Catalytic activity/Vol] 35 U/L 16-61 [facility] CO2 [Moles/Vol] 28.0 mmol/L 21.0-32.0 [facility] Cobalamin (Vitamin B12) [Mass/Vol] 309 pg/mL 211-911 [facility] Globulin (S) [Mass/Vol] 4.2 g/dL 2.2-4.2 [facility] Magnesium [Mass/Vol] 2.6 mg/dL 1.6-2.6 [facility] Urea nitrogen/Creatinine [Mass ratio] 14.4 mg/mg 10-20 [facility] Laboratory - Hematology and Cell countsOrdered By: Sergei Henley on 06-02-2023 Erythrocyte distribution width (RBC) [Entitic vol] 47.6 fL 35.1-43.9 [facility] Erythrocyte distribution width (RBC) [Ratio] 12.8 % 11.6-14.6 [facility] MCH (RBC) [Entitic mass] 32.5 pg 27.0-32.0 [facility] MCHC Auto (RBC) [Mass/Vol]Or dered By: Sergei Henley on 06-02-2023 MCHC (RBC) [Mass/Vol] 32.3 g/dL 32-36 [facility] No Panel InformationOrdered By: Sergei Henley on 06-02-2023 Estimated GFR (MDRD) Amer 101 mL/min >60 [facility] Comment on above: GFR Calc Estimated GFR (MDRD) Non-Af Amer 84 mL/min >60 [facility] Comment on above: Non- GFR Calc Thyroid Stimulating Hormone (TSH) 1.26 uIU/mL 0.358-3.74 [facility] Vitamin D 25-Hydroxy 34.5 ng/mL [facility] Comment on above: Vitamin D 25(OH) Sta tus Range Deficiency <20 ng/mL (50nmol/L) Insufficiency 20 - 30 ng/mL (50 - 75 nmol/L) Sufficiency 30 - 100 ng/mL (75 - 250 nmol/L) Toxicity >100 ng/mL (>250 nmol/L) Platelets bldOrdered By: Chr istophe Kale on 06-02-2023 Platelets (Bld) [#/Vol] 261 10*3/uL 150-450 [facility] Serum or plasma albumin randa urement (mass/volume)Ordered By: Sergei Henley on 06-02-2023 Albumin [Mass/Vol] 3.4 g/dL 3.2-5.0 [facility] Serum or plasma albumin/glob ulin mass ratioOrdered By: Sergei Henley on 06-02-2023 Albumin/Globulin [Mass ratio] 0.8 {ratio} 0.9-2.4 [facility] Serum or plasma calcium randa urement (mass/volume)Ordered By: Sergei Henley on 06-02-2023 Calcium [Mass/Vol] 8.7 mg/dL 8.5-10.1 [facility] Serum or plasma creatinine m easurement (mass/volume)Ordered By: Sergei Henley on 06-02-2023 Creatinine [Mass/Vol] 0.98 mg/dL 0.70-1.30 [facility] Comment on above: The validity of the calculated GFR & GFRAA in patients over 70 years has not been determined. Clinical correlation is essential. Serum or plasma ferritin seema surement (mass/volume)Ordered By: Sergei Henley on 06-02-2023 Ferritin [Mass/Vol] 285 ng/mL 26-388 [facility] Serum or plasma urea nitroge n measurement (mass/volume)Ordered By: Sergei Henley on 06-02-2023 Urea nitrogen [Mass/Vol] 14 mg/dL 7-18 [facility] Thin prep Papanicolaou smear with manual screeningOrdered By: Sergei Henley on 06-02-2023 Thin prep Papanicolaou smear with manual screening 24 U/L 15-37 [facility] Thin prep Papanicolaou smear with manual screening 4 5- [facility] Basophil percentageOrdered B y: Eileen Ray on 04-25-2023 Bilirubin [Mass/Vol] 0.40 mg/dL 0.20-1.00 [facility] Comment on above: For patients on eltr ombopag therapy, use of Dimension [place] TBIL is not recommended. Chloride [Moles/Vol] 109 mmol/L 98-107 [facility] Glucose [Mass/Vol] 104 mg/dL 74-106 [facility] Comment on above: Fasting Glucose resu lt from 100 to 125 mg/dL suggests IMPAIRED HOMEOSTASIS per A.D.A. criteria. Potassium [Moles/Vol] 3.9 mmol/L 3.5-5.1 [facility] Protein [Mass/Vol] 7.0 g/dL 6.4-8.2 [facility] Sodium [Moles/Vol] 139 mmol/L 136-145 [facility] WBC (Bld) [#/Vol] 4.7 10*3/uL 4.4-11.0 [facility] Blood erythrocytes count (nu mber/volume)Ordered By: Eileen Ray on 04-25-2023 RBC (Bld) [#/Vol] 4.14 10*6/uL 4.6-6.2 [facility] Blood hemoglobin measurement (mass/volume)Ordered By: Eileen Ray on 04-25-2023 Hemoglobin (Bld) [Mass/Vol] 13.9 g/dL 13.0-16.5 [facility] Blood platelet mean volumeOr dered By: Eileen Ray on 04-25-2023 Platelet mean volume (Bld) [Entitic vol] 9.5 fL 6.2-12.0 [facility] Determination of erythrocyte mean corpuscular volume (MCV)Ordered By: Eileen Ray on 04-25-2023 MCV (RBC) [Entitic vol] 99.8 fL 80-94 [facility] Hematocrit Auto (Bld) [Volum e fraction]Ordered By: Eileen Ray on 04-25-2023 Hematocrit (Bld) [Volume fraction] 41.3 % 40-54 [facility] Laboratory - Chemistry and C hemistry - challengeOrdered By: Eileen Ray on 04-25-2023 ALP [Catalytic activity/Vol] 61 U/L 45-117 [facility] ALT [Catalytic activity/Vol] 50 U/L 16-61 [facility] CO2 [Moles/Vol] 27.0 mmol/L 21.0-32.0 [facility] Globulin (S) [Mass/Vol] 3.9 g/dL 2.2-4.2 [facility] Urea nitrogen/Creatinine [Mass ratio] 10.2 mg/mg 10-20 [facility] Laboratory - Hematology and Cell countsOrdered By: Eileen Ray on 04-25-2023 Erythrocyte distribution width (RBC) [Entitic vol] 47.3 fL 35.1-43.9 [facility] Erythrocyte distribution width (RBC) [Ratio] 12.9 % 11.6-14.6 [facility] MCH (RBC) [Entitic mass] 33.6 pg 27.0-32.0 [facility] MCHC Auto (RBC) [Mass/Vol]Or dered By: Eileen Ray on 04-25-2023 MCHC (RBC) [Mass/Vol] 33.7 g/dL 32-36 [facility] No Panel InformationOrdered By: Eileen Ray on 04-25-2023 Estimated Creatinine Clearance Calc 89.08 ml/min [facility] Estimated GFR (MDRD) Amer 100 mL/min >60 [facility] Comment on above: GFR Calc Estimated GFR (MDRD) Non-Af Amer 83 mL/min >60 [facility] Comment on above: Non- GFR Calc Platelets bldOrdered By: Nuno Ray on 04-25-2023 Platelets (Bld) [#/Vol] 185 10*3/uL 150-450 [facility] Serum or plasma albumin randa urement (mass/volume)Ordered By: Eileen Ray on 04-25-2023 Albumin [Mass/Vol] 3.1 g/dL 3.2-5.0 [facility] Serum or plasma albumin/glob ulin mass ratioOrdered By: Eileen Ray on 04-25-2023 Albumin/Globulin [Mass ratio] 0.8 {ratio} 0.9-2.4 [facility] Serum or plasma calcium randa urement (mass/volume)Ordered By: Eileen Ray on 04-25-2023 Calcium [Mass/Vol] 8.6 mg/dL 8.5-10.1 [facility] Serum or plasma creatinine m easurement (mass/volume)Ordered By: Eileen Ray on 04-25-2023 Creatinine [Mass/Vol] 0.98 mg/dL 0.70-1.30 [facility] Comment on above: The validity of the calculated GFR & GFRAA in patients over 70 years has not been determined. Clinical correlation is essential. Serum or plasma urea nitroge n measurement (mass/volume)Ordered By: Eileen Ray on 04-25-2023 Urea nitrogen [Mass/Vol] 10 mg/dL 7-18 [facility] Thin prep Papanicolaou smear with manual screeningOrdered By: Eileen Ray on 04-25-2023 Thin prep Papanicolaou smear with manual screening 73 U/L 15-37 [facility] Thin prep Papanicolaou smear with manual screening 3 5-15 [facility] Whole blood hemoglobin A1c/t otal hemoglobin ratio (mass fraction)Ordered By: Ar Torres on 04-25-2023 HbA1c (Bld) [Mass fraction] 5.6 % 3.8-5.6 [facility] Comment on above: Normal < 5.7 % Predi abetic 5.7 - 6.4 % Diabetic >or= 6.5 % Please note range changes. Absolute lymphocyte countOrd ered By: Ar Torres on 04-24-2023 Lymphocytes Auto (Unsp spec) [#/Vol] 1.02 10*3/uL 0.83-4.51 [facility] Basophil percentageOrdered B y: Ar Torres on 04-24-2023 Basophils/100 WBC (Bld) 0.8 % 0-1 [facility] Cholesterol [Mass/Vol] 210 mg/dL <200 [facility] Comment on above: <200 mg/dL Desirable 200-240 mg/dL Borderline >240 mg/dL High Risk Eosinophils/100 WBC (Bld) 4.3 % 0-5 [facility] Neutrophils (Bld) [#/Vol] 3.1 10*3/uL 2.0-7.7 [facility] Neutrophils/100 WBC (Bld) 64.2 % 47-70 [facility] Triglyceride [Mass/Vol] 258 mg/dL <199 [facility] Comment on above: The drugs N-Acetylcy steine and Metamizole may falsely depress this assay.Serum Triglycerides Reference Interval Normal <150 mg/dL Borderline high 150 - 199 mg/dL High 200 - 499 mg/dL Very High > or = 500 mg/dL Blood lymphocytes/100 leukoc ytesOrdered By: Ar Torres on 04-24-2023 Lymphocytes/100 WBC (Bld) 20.9 % 19-41 [facility] Blood monocytes/100 leukocyt esOrdered By: Ar Torres on 04-24-2023 Monocytes/100 WBC (Bld) 9.2 % 0-10 [facility] INR in Blood by Coagulation assayOrdered By: Ar Torres on 04-24-2023 INR Coag (Bld) [Relative time] 1.0 {INR} [facility] Laboratory - CoagulationOrde red By: Ar Torres on 04-24-2023 aPTT Coag (Bld) [Time] 22.7 s 24.1-36.2 [facility] PT Coag (PPP) [Time] 12.8 s 11.7-14.9 [facility] Laboratory - Hematology and Cell countsOrdered By: Ar Torres on 04-24-2023 Immature granulocytes/100 WBC (Bld) 0.600 % 0.0-0.9 [facility] Comment on above: IG% - Immature Granu locytes (promyelocytes, myelocytes and metamyelocytes) > 1% indicates that a LEFT SHIFT is Present. Nucleated RBC/100 WBC (Bld) [Ratio] 0 % 0-5 [facility] No Panel InformationOrdered By: Rommel Youssef on 04-24-2023 Activated Clotting Time 197 sec 74-137 [facility] No Panel InformationOrdered By: Ar Torres on 04-24-2023 Troponin I High Sensitivity 67974 pg/mL 3.0-78.0 [facility] Comment on above: Critical Result(s) C alled at: 08:06:06 04/24/2023 by: Kendal Mcqueen. Results read back by same. Please Note: New Test Units and Gender Specific Reference Ranges. For more information see Policy Stat Procedure [place] High Sensitivity Troponin (TNIH) and attachments. Serum or plasma cholesterol in HDL measurement (mass/volume)Ordered By: Ar Torres on 04-24-2023 Cholesterol in HDL [Mass/Vol] 71 mg/dL >40 [facility] Comment on above: The drugs N-Acetylcy steine and Metamizole may falsely depress this assay. Reference Range HDL <40 mg/dL Low HDL Cholesterol HDL >or= 60 mg/dL High HDL Cholesterol Serum or plasma cholesterol in VLDL measurement (mass/volume)Ordered By: Ar Torres on 04-24-2023 Cholesterol in VLDL [Mass/Vol] 52 mg/dL 5-40 [facility] Serum or plasma low density lipoprotein (LDL) cholesterol measurement (mass/volume)Ordered By: Ar Torres on 04-24-2023 Cholesterol in LDL [Mass/Vol] 87 mg/dL 0-130 [facility] Absolute lymphocyte countOrd ered By: Perez Dave on 04-23-2023 Lymphocytes Auto (Unsp spec) [#/Vol] 1.69 10*3/uL 0.83-4.51 [facility] Basophil percentageOrdered B y: Perez Dave on 04-23-2023 Basophils/100 WBC (Bld) 1.1 % 0-1 [facility] Chloride [Moles/Vol] 108 mmol/L 98-107 [facility] Eosinophils/100 WBC (Bld) 6.3 % 0-5 [facility] Glucose [Mass/Vol] 104 mg/dL 74-106 [facility] Comment on above: Fasting Glucose resu lt from 100 to 125 mg/dL suggests IMPAIRED HOMEOSTASIS per A.D.A. criteria. Neutrophils (Bld) [#/Vol] 2.5 10*3/uL 2.0-7.7 [facility] Neutrophils/100 WBC (Bld) 48.0 % 47-70 [facility] Potassium [Moles/Vol] 3.4 mmol/L 3.5-5.1 [facility] Sodium [Moles/Vol] 141 mmol/L 136-145 [facility] WBC (Bld) [#/Vol] 5.3 10*3/uL 4.4-11.0 [facility] Blood erythrocytes count (nu mber/volume)Ordered By: Perez Dave on 04-23-2023 RBC (Bld) [#/Vol] 4.28 10*6/uL 4.6-6.2 [facility] Blood hemoglobin measurement (mass/volume)Ordered By: Perez Dave on 04-23-2023 Hemoglobin (Bld) [Mass/Vol] 14.0 g/dL 13.0-16.5 [facility] Blood lymphocytes/100 leukoc ytesOrdered By: Perez Dave on 04-23-2023 Lymphocytes/100 WBC (Bld) 32.1 % 19-41 [facility] Blood monocytes/100 leukocyt esOrdered By: Perez Dave on 04-23-2023 Monocytes/100 WBC (Bld) 12.1 % 0-10 [facility] Blood platelet mean volumeOr dered By: Perez Dave on 04-23-2023 Platelet mean volume (Bld) [Entitic vol] 9.5 fL 6.2-12.0 [facility] Determination of erythrocyte mean corpuscular volume (MCV)Ordered By: Perez Dave on 04-23-2023 MCV (RBC) [Entitic vol] 98.8 fL 80-94 [facility] Hematocrit Auto (Bld) [Volum e fraction]Ordered By: Perez Dave on 04-23-2023 Hematocrit (Bld) [Volume fraction] 42.3 % 40-54 [facility] INR in Blood by Coagulation assayOrdered By: Perez Dave on 04-23-2023 INR Coag (Bld) [Relative time] 1.0 {INR} [facility] Laboratory - Chemistry and C hemistry - challengeOrdered By: Perez Dave on 04-23-2023 CO2 [Moles/Vol] 24.0 mmol/L 21.0-32.0 [facility] Urea nitrogen/Creatinine [Mass ratio] 12.1 mg/mg 10-20 [facility] Laboratory - CoagulationOrde red By: Perez Dave on 04-23-2023 aPTT Coag (Bld) [Time] 23.0 s 24.1-36.2 [facility] PT Coag (PPP) [Time] 12.9 s 11.7-14.9 [facility] Laboratory - Hematology and Cell countsOrdered By: Perez Dave on 04-23-2023 Erythrocyte distribution width (RBC) [Entitic vol] 45.7 fL 35.1-43.9 [facility] Erythrocyte distribution width (RBC) [Ratio] 12.6 % 11.6-14.6 [facility] Immature granulocytes/100 WBC (Bld) 0.400 % 0.0-0.9 [facility] Comment on above: IG% - Immature Granu locytes (promyelocytes, myelocytes and metamyelocytes) > 1% indicates that a LEFT SHIFT is Present. MCH (RBC) [Entitic mass] 32.7 pg 27.0-32.0 [facility] Nucleated RBC/100 WBC (Bld) [Ratio] 0 % 0-5 [facility] MCHC Auto (RBC) [Mass/Vol]Or dered By: Perez Dave on 04-23-2023 MCHC (RBC) [Mass/Vol] 33.1 g/dL 32-36 [facility] No Panel InformationOrdered By: Perez Dave on 04-23-2023 Estimated Creatinine Clearance Calc 70.40 ml/min [facility] Estimated GFR (MDRD) Amer 77 mL/min >60 [facility] Comment on above: GFR Calc Estimated GFR (MDRD) Non-Af Amer 63 mL/min >60 [facility] Comment on above: Non- GFR Calc Troponin I High Sensitivity 6 pg/mL 3.0-78.0 [facility] Comment on above: Please Note: New Joan t Units and Gender Specific Reference Ranges. For more information see Policy Stat Procedure [place] High Sensitivity Troponin (TNIH) and attachments. Platelets bldOrdered By: Priti Dave on 04-23-2023 Platelets (Bld) [#/Vol] 226 10*3/uL 150-450 [facility] Serum or plasma calcium randa urement (mass/volume)Ordered By: [facility] on 04-[facility]23 Calcium [Mass/Vol] 8.8 mg/dL 8.5-10.1 [facility] Serum or plasma creatinine m easurement (mass/volume)Ordered By: Houston Tenzin on 04-23-2023 Creatinine [Mass/Vol] 1.24 mg/dL 0.70-1.30 [facility] Comment on above: The validity of the calculated GFR & GFRAA in patients over 70 years has not been determined. Clinical correlation is essential. Serum or plasma urea nitroge n measurement (mass/volume)Ordered By: [facility] on 04-23-2023 Urea nitrogen [Mass/Vol] 15 mg/dL 7-18 [facility] Thin prep Papanicolaou smear with manual screeningOrdered By: [facility] on 04-23-2023 Thin prep Papanicolaou smear with manual screening 9 5-15 [facility] Absolute lymphocyte counton 05-06-2022 Lymphocytes Auto (Unsp spec) [#/Vol] 1.23 10*3/uL 0.83-4.51 [facility] Work Phone: Basophil percentageon 2021 Basophils/100 WBC (Bld) 0.7 % 0-1 [facility] Work Phone: Bilirubin [Mass/Vol] 0.50 mg/dL 0.20-1.00 [facility] Work Phone: Comment on above: For patients on eltr ombopag therapy, use of Dimension [place] TBIL is not recommended. Chloride [Moles/Vol] 105 mmol/L 98-107 [facility] Work Phone: Cholesterol [Mass/Vol] 179 mg/dL <200 [facility] Work Phone: Comment on above: <200 mg/dL Desirable 200-240 mg/dL Borderline >240 mg/dL High Risk Eosinophils/100 WBC (Bld) 3.0 % 0-5 [facility] Work Phone: Glucose [Mass/Vol] 104 mg/dL 74-106 [facility] Work Phone: Comment on above: Fasting Glucose resu lt from 100 to 125 mg/dL suggests IMPAIRED HOMEOSTASIS per A.D.A. criteria. Neutrophils (Bld) [#/Vol] 4.0 10*3/uL 2.0-7.7 [facility] Work Phone: Neutrophils/100 WBC (Bld) 66.8 % 47-70 [facility] Work Phone: Potassium [Moles/Vol] 4.3 mmol/L 3.5-5.1 [facility] Work Phone: Comment on above: Slight Hemolysis, Re sult may be falsely increased. Protein [Mass/Vol] 8.3 g/dL 6.4-8.2 [facility] Work Phone: Sodium [Moles/Vol] 140 mmol/L 136-145 [facility] Work Phone: Triglyceride [Mass/Vol] 169 mg/dL <199 [facility] Work Phone: Comment on above: The drugs N-Acetylcy steine and Metamizole may falsely depress this assay.Serum Triglycerides Reference Interval Normal <150 mg/dL Borderline high 150 - 199 mg/dL High 200 - 499 mg/dL Very High > or = 500 mg/dL WBC (Bld) [#/Vol] 6.0 10*3/uL 4.4-11.0 [facility] Work Phone: Blood erythrocytes count (nu mber/volume)on 05-06-2022 RBC (Bld) [#/Vol] 4.85 10*6/uL 4.6-6.2 [facility] Work Phone: Blood hemoglobin measurement (mass/volume)on 05-06-2022 Hemoglobin (Bld) [Mass/Vol] 15.8 g/dL 13.0-16.5 [facility] Work Phone: Blood lymphocytes/100 leukoc yteson 05-06-2022 Lymphocytes/100 WBC (Bld) 20.5 % 19-41 [facility] Work Phone: Blood monocytes/100 leukocyt eson 05-06-2022 Monocytes/100 WBC (Bld) 8.5 % 0-10 [facility] Work Phone: Blood platelet mean volumeon 05-06-2022 Platelet mean volume (Bld) [Entitic vol] 9.9 fL 6.2-12.0 [facility] Work Phone: Determination of erythrocyte mean corpuscular volume (MCV)on 05-06-2022 MCV (RBC) [Entitic vol] 98.4 fL 80-94 [facility] Work Phone: Erythrocyte sedimentation ra bobby 05-06-2022 ESR (Bld) [Velocity] 17 mm/h 0-20 [facility] Work Phone: Hematocrit Auto (Bld) [Volum e fraction]on 05-06-2022 Hematocrit (Bld) [Volume fraction] 47.7 % 40-54 [facility] Work Phone: Laboratory - Chemistry and C hemistry - challengeon 05-06-2022 ALP [Catalytic activity/Vol] 82 U/L 45-117 [facility] Work Phone: ALT [Catalytic activity/Vol] 78 U/L 16-61 [facility] Work Phone: CO2 [Moles/Vol] 26.0 mmol/L 21.0-32.0 [facility] Work Phone: [phone] Cobalamin (Vitamin B12) [Mass/Vol] 289 pg/mL 211-911 [facility] Work Phone: Globulin (S) [Mass/Vol] 4.7 g/dL 2.2-4.2 [facility] Work Phone: Urea nitrogen/Creatinine [Mass ratio] 8.1 mg/mg 10-20 [facility] Work Phone: Laboratory - Hematology and Cell countson 05-06-2022 Erythrocyte distribution width (RBC) [Entitic vol] 46.7 fL 35.1-43.9 [facility] Work Phone: Erythrocyte distribution width (RBC) [Ratio] 12.9 % 11.6-14.6 [facility] Work Phone: [phone] Immature granulocytes/100 WBC (Bld) 0.500 % 0.0-0.9 [facility] Work Phone: [phone] Comment on above: IG% - Immature Granu locytes (promyelocytes, myelocytes and metamyelocytes) > 1% indicates that a LEFT SHIFT is Present. MCH (RBC) [Entitic mass] 32.6 pg 27.0-32.0 [facility] Work Phone: [phone] Nucleated RBC/100 WBC (Bld) [Ratio] 0 % 0-5 [facility] Work Phone: [phone] MCHC Auto (RBC) [Mass/Vol]on 05-06-2022 MCHC (RBC) [Mass/Vol] 33.1 g/dL 32-36 [facility] Work Phone: No Panel Informationon 05-06 Estimated GFR (MDRD) Amer 77 mL/min >60 [facility] Work Phone: [phone] Comment on above: GFR Calc Estimated GFR (MDRD) Non-Af Amer 64 mL/min >60 [facility] Work Phone: [phone] Comment on above: Non- GFR Calc Thyroid Stimulating Hormone (TSH) 0.99 uIU/mL 0.358-3.74 [facility] Work Phone: [phone] Vitamin D 25-Hydroxy 37.3 ng/mL [facility] Work Phone: [phone] Comment on above: Vitamin D 25(OH) Sta tus Range Deficiency <20 ng/mL (50nmol/L) Insufficiency 20 - 30 ng/mL (50 - 75 nmol/L) Sufficiency 30 - 100 ng/mL (75 - 250 nmol/L) Toxicity >100 ng/mL (>250 nmol/L) Platelets bldon 05-06-2022 Platelets (Bld) [#/Vol] 223 10*3/uL 150-450 [facility] Work Phone: Serum or plasma albumin randa urement (mass/volume)on 05-06-2022 Albumin [Mass/Vol] 3.6 g/dL 3.2-5.0 [facility] Work Phone: Serum or plasma albumin/glob ulin mass ratioon 05-06-2022 Albumin/Globulin [Mass ratio] 0.8 {ratio} 0.9-2.4 [facility] Work Phone: Serum or plasma calcium randa urement (mass/volume)on 05-06-2022 Calcium [Mass/Vol] 9.0 mg/dL 8.5-10.1 [facility] Work Phone: Serum or plasma cholesterol in HDL measurement (mass/volume)on 05-06-2022 Cholesterol in HDL [Mass/Vol] 78 mg/dL >40 [facility] Work Phone: Comment on above: The drugs N-Acetylcy steine and Metamizole may falsely depress this assay. Reference Range HDL <40 mg/dL Low HDL Cholesterol HDL >or= 60 mg/dL High HDL Cholesterol Serum or plasma cholesterol in VLDL measurement (mass/volume)on 05-06-2022 Cholesterol in VLDL [Mass/Vol] 34 mg/dL 5-40 [facility] Work Phone: Serum or plasma creatinine m easurement (mass/volume)on 05-06-2022 Creatinine [Mass/Vol] 1.24 mg/dL 0.70-1.30 [facility] Work Phone: Comment on above: The validity of the calculated GFR & GFRAA in patients over 70 years has not been determined. Clinical correlation is essential. Serum or plasma low density lipoprotein (LDL) cholesterol measurement (mass/volume)on 05-06-2022 Cholesterol in LDL [Mass/Vol] 67 mg/dL 0-130 [facility] Work Phone: Serum or plasma urea nitroge n measurement (mass/volume)on 05-06-2022 Urea nitrogen [Mass/Vol] 10 mg/dL 7-18 [facility] Work Phone: Thin prep Papanicolaou smear with manual screeningon 05-06-2022 Thin prep Papanicolaou smear with manual screening 54 U/L 15-37 [facility] Work Phone: Comment on above: Slight Hemolysis, Re sult may be falsely increased. Thin prep Papanicolaou smear with manual screening 9 5-15 [facility] Work Phone: Basophil percentageon 2021 Chloride [Moles/Vol] 108 mmol/L 98-107 [facility] Work Phone: Cholesterol [Mass/Vol] 158 mg/dL <200 [facility] Work Phone: Comment on above: <200 mg/dL Desirable 200-240 mg/dL Borderline >240 mg/dL High Risk Glucose [Mass/Vol] 112 mg/dL 74-106 [facility] Work Phone: Comment on above: Fasting Glucose resu lt from 100 to 125 mg/dL suggests IMPAIRED HOMEOSTASIS per A.D.A. criteria. Potassium [Moles/Vol] 3.9 mmol/L 3.5-5.1 [facility] Work Phone: Sodium [Moles/Vol] 139 mmol/L 136-145 [facility] Work Phone: Triglyceride [Mass/Vol] 147 mg/dL [facility] Work Phone: Comment on above: The drugs N-Acetylcy steine and Metamizole may falsely depress this assay.Serum Triglycerides Reference Interval Normal <150 mg/dL Borderline high 150 - 199 mg/dL High 200 - 499 mg/dL Very High > or = 500 mg/dL WBC (Bld) [#/Vol] 6.1 10*3/uL 4.4-11.0 [facility] Work Phone: [phone] Blood erythrocytes count (nu mber/volume)on 10-31-2021 RBC (Bld) [#/Vol] 4.40 10*6/uL 4.6-6.2 [facility] Work Phone: [phone] Blood hemoglobin measurement (mass/volume)on 10-31-2021 Hemoglobin (Bld) [Mass/Vol] 14.2 g/dL 13.0-16.5 [facility] Work Phone: [phone] Blood platelet mean volumeon 10-31-2021 Platelet mean volume (Bld) [Entitic vol] 9.9 fL 6.2-12.0 [facility] Work Phone: [phone] Determination of erythrocyte mean corpuscular volume (MCV)on 10-31-2021 MCV (RBC) [Entitic vol] 98.2 fL 80-94 [facility] Work Phone: [phone] Hematocrit Auto (Bld) [Volum e fraction]on 10-31-2021 Hematocrit (Bld) [Volume fraction] 43.2 % 40-54 [facility] Work Phone: [phone] Laboratory - Chemistry and C hemistry - challengeon 10-31-2021 CO2 [Moles/Vol] 28.0 mmol/L 21.0-32.0 [facility] Work Phone: [phone] Urea nitrogen/Creatinine [Mass ratio] 10.0 mg/mg 10-20 [facility] Work Phone: [phone] Laboratory - Hematology and Cell countson 10-31-2021 Erythrocyte distribution width (RBC) [Entitic vol] 46.4 fL 35.1-43.9 [facility] Work Phone: [phone] Erythrocyte distribution width (RBC) [Ratio] 13.0 % 11.6-14.6 [facility] Work Phone: [phone] MCH (RBC) [Entitic mass] 32.3 pg 27.0-32.0 [facility] Work Phone: [phone] MCHC Auto (RBC) [Mass/Vol]on 10-31-2021 MCHC (RBC) [Mass/Vol] 32.9 g/dL 32-36 [facility] Work Phone: [phone] No Panel Informationon 10-31 Estimated Creatinine Clearance Calc 98.20 ml/min [facility] Work Phone: [phone] Estimated GFR (MDRD) Amer 112 mL/min >60 [facility] Work Phone: Comment on above: GFR Calc Estimated GFR (MDRD) Non-Af Amer 92 mL/min >60 [facility] Work Phone: Comment on above: Non- GFR Calc Thyroid Stimulating Hormone (TSH) 0.80 uIU/mL 0.358-3.74 [facility] Work Phone: Platelets bldon 10-31-2021 Platelets (Bld) [#/Vol] 188 10*3/uL 150-450 [facility] Work Phone: Serum or plasma calcium randa urement (mass/volume)on 10-31-2021 Calcium [Mass/Vol] 8.6 mg/dL 8.5-10.1 [facility] Work Phone: Serum or plasma cholesterol in HDL measurement (mass/volume)on 10-31-2021 Cholesterol in HDL [Mass/Vol] 66 mg/dL [facility] Work Phone: Comment on above: The drugs N-Acetylcy steine and Metamizole may falsely depress this assay. Reference Range HDL <40 mg/dL Low HDL Cholesterol HDL >or= 60 mg/dL High HDL Cholesterol Serum or plasma cholesterol in VLDL measurement (mass/volume)on 10-31-2021 Cholesterol in VLDL [Mass/Vol] 29 mg/dL 5-40 [facility] Work Phone: Serum or plasma creatinine m easurement (mass/volume)on 10-31-2021 Creatinine [Mass/Vol] 0.90 mg/dL 0.70-1.30 [facility] Work Phone: Comment on above: The validity of the calculated GFR & GFRAA in patients over 70 years has not been determined. Clinical correlation is essential. Serum or plasma low density lipoprotein (LDL) cholesterol measurement (mass/volume)on 10-31-2021 Cholesterol in LDL [Mass/Vol] 63 mg/dL 0-130 [facility] Work Phone: Serum or plasma urea nitroge n measurement (mass/volume)on 10-31-2021 Urea nitrogen [Mass/Vol] 9 mg/dL 7-18 [facility] Work Phone: Thin prep Papanicolaou smear with manual screeningon 10-31-2021 Thin prep Papanicolaou smear with manual screening 3 5-15 [facility] Work Phone: Absolute lymphocyte counton 10-30-2021 Lymphocytes Auto (Unsp spec) [#/Vol] 1.97 10*3/uL 0.83-4.51 [facility] Work Phone: Basophil percentageon 2021 Basophils/100 WBC (Bld) 0.4 % 0-1 [facility] Work Phone: Chloride [Moles/Vol] 106 mmol/L 98-107 [facility] Work Phone: Eosinophils/100 WBC (Bld) 3.4 % 0-5 [facility] Work Phone: Glucose [Mass/Vol] 94 mg/dL 74-106 [facility] Work Phone: Neutrophils (Bld) [#/Vol] 4.2 10*3/uL 2.0-7.7 [facility] Work Phone: Neutrophils/100 WBC (Bld) 58.0 % 47-70 [facility] Work Phone: Potassium [Moles/Vol] 3.9 mmol/L 3.5-5.1 [facility] Work Phone: Comment on above: Moderate Hemolysis, Result may be falsely increased. Sodium [Moles/Vol] 140 mmol/L 136-145 [facility] Work Phone: WBC (Bld) [#/Vol] 7.2 10*3/uL 4.4-11.0 [facility] Work Phone: Blood erythrocytes count (nu mber/volume)on 10-30-2021 RBC (Bld) [#/Vol] 4.96 10*6/uL 4.6-6.2 [facility] Work Phone: Blood hemoglobin measurement (mass/volume)on 10-30-2021 Hemoglobin (Bld) [Mass/Vol] 16.4 g/dL 13.0-16.5 [facility] Work Phone: Blood lymphocytes/100 leukoc yteson 10-30-2021 Lymphocytes/100 WBC (Bld) 27.6 % 19-41 [facility] Work Phone: Blood monocytes/100 leukocyt eson 10-30-2021 Monocytes/100 WBC (Bld) 10.3 % 0-10 [facility] Work Phone: Blood platelet mean volumeon 10-30-2021 Platelet mean volume (Bld) [Entitic vol] 9.7 fL 6.2-12.0 [facility] Work Phone: Determination of erythrocyte mean corpuscular volume (MCV)on 10-30-2021 MCV (RBC) [Entitic vol] 96.4 fL 80-94 [facility] Work Phone: [phone] Hematocrit Auto (Bld) [Volum e fraction]on 10-30-2021 Hematocrit (Bld) [Volume fraction] 47.8 % 40-54 [facility] Work Phone: [phone] Laboratory - Chemistry and C hemistry - challengeon 10-30-2021 CO2 [Moles/Vol] 30.0 mmol/L 21.0-32.0 [facility] Work Phone: [phone] Magnesium [Mass/Vol] 2.3 mg/dL 1.6-2.6 [facility] Work Phone: Comment on above: Moderate Hemolysis, Result may be falsely increased. Urea nitrogen/Creatinine [Mass ratio] 16.0 mg/mg 10-20 [facility] Work Phone: Laboratory - Hematology and Cell countson 10-30-2021 Erythrocyte distribution width (RBC) [Entitic vol] 44.9 fL 35.1-43.9 [facility] Work Phone: Erythrocyte distribution width (RBC) [Ratio] 12.7 % 11.6-14.6 [facility] Work Phone: Immature granulocytes/100 WBC (Bld) 0.300 % 0.0-0.9 [facility] Work Phone: [phone] Comment on above: IG% - Immature Granu locytes (promyelocytes, myelocytes and metamyelocytes) > 1% indicates that a LEFT SHIFT is Present. MCH (RBC) [Entitic mass] 33.1 pg 27.0-32.0 [facility] Work Phone: [phone] Nucleated RBC/100 WBC (Bld) [Ratio] 0 % 0-5 [facility] Work Phone: [phone] MCHC Auto (RBC) [Mass/Vol]on 10-30-2021 MCHC (RBC) [Mass/Vol] 34.3 g/dL 32-36 [facility] Work Phone: No Panel Informationon 10-30 Troponin I High Sensitivity < 3 pg/mL 3.0-78.0 [facility] Work Phone: Comment on above: Please Note: New Joan t Units and Gender Specific Reference Ranges. For more information see Policy Stat Procedure [place] High Sensitivity Troponin (TNIH) and attachments. Troponin I High Sensitivity < 3 pg/mL 3.0-78.0 [facility] Work Phone: [phone] Comment on above: Please Note: New Joan t Units and Gender Specific Reference Ranges. For more information see Policy Stat Procedure [place] High Sensitivity Troponin (TNIH) and attachments. D-Dimer Quantitative (PE/DVT) 0.37 FEU/ug/m 0.27-0.49 [facility] Work Phone: [phone] Comment on above: NORMAL D-Dimer level (<0.50) indicates no DVT or PE. Estimated Creatinine Clearance Calc 74.27 ml/min [facility] Work Phone: [phone] Estimated GFR (MDRD) Amer 81 mL/min >60 [facility] Work Phone: [phone] Comment on above: GFR Calc Estimated GFR (MDRD) Non-Af Amer 67 mL/min >60 [facility] Work Phone: [phone] Comment on above: Non- GFR Calc Platelets bldon 10-30-2021 Platelets (Bld) [#/Vol] 235 10*3/uL 150-450 [facility] Work Phone: Serum or plasma calcium randa urement (mass/volume)on 10-30-2021 Calcium [Mass/Vol] 9.5 mg/dL 8.5-10.1 [facility] Work Phone: Serum or plasma creatinine m easurement (mass/volume)on 10-30-2021 Creatinine [Mass/Vol] 1.19 mg/dL 0.70-1.30 [facility] Work Phone: Comment on above: The validity of the calculated GFR & GFRAA in patients over 70 years has not been determined. Clinical correlation is essential. Serum or plasma urea nitroge n measurement (mass/volume)on 10-30-2021 Urea nitrogen [Mass/Vol] 19 mg/dL 7-18 [facility] Work Phone: Thin prep Papanicolaou smear with manual screeningon 10-30-2021 Thin prep Papanicolaou smear with manual screening 4 5-15 [facility] Work Phone: Office Visiton 01-20-2017 Dietary management education, guidance, and counseling (procedure) yes Invalid Interpretation Code [facility] Work Phone: [phone] Documentation of current medications (procedure) Done Invalid Interpretation Code [facility] Work Phone: [phone] Fall risk assessment No Invalid Interpretation Code [facility] Work Phone: [phone] Lab Report: Bilirubin, Direc ton 12-02-2016 Bilirubin (direct) 0.10 mg/dL Invalid Interpretation Code 0.00-0.30 [facility] Work Phone: [phone] Lab Report: Comprehensive Me tabolic Profilon 12-02-2016 Alanine aminotransferase (ALT) 55 U/L Invalid Interpretation Code 12-78 [facility] Work Phone: [phone] Albumin 4.0 g/dL Invalid Interpretation Code 3.4-5.0 [facility] Work Phone: [phone] Albumin/Globulin Ratio 1 {ratio} Invalid Interpretation Code 0.9-2.4 [facility] Work Phone: [phone] Alkaline phosphatase (ALP) 89 U/L Invalid Interpretation Code 45-117 [facility] Work Phone: [phone] ALP enzyme act/vol (Bld) 89 U/L 45-117 [facility] Work Phone: [phone] Anion gap 5 mmol/L Invalid Interpretation Code 5-15 [facility] Work Phone: [phone] Anion gap molar conc 5 mmol/L 5-[address] [facility] Work Phone: [phone]) Aspartate aminotransferase (AST) 38 U/L High 15-37 [facility] Work Phone: [phone] Bilirubin (total) 0.40 mg/dL Invalid Interpretation Code 0.20-1.00 [facility] Work Phone: [phone] BUN/Creatinine Ratio 16.4 RATIO Invalid Interpretation Code 10-20 [facility] Work Phone: [phone] Calcium 8.8 mg/dL Invalid Interpretation Code 8.5-10.1 [facility] Work Phone: [phone] Chloride 108 mmol/L High 98-107 [facility] Work Phone: [phone] CO2 25.0 mmol/L Invalid Interpretation Code 21.0-32.0 [facility] Work Phone: [phone] CO2 ppres (BldV) 25.0 mmol/L 21.0-32.0 [facility] Work Phone: [phone] Creatinine 1.10 mg/dL Invalid Interpretation Code 0.70-1.30 [facility] Work Phone: [phone] eGFR (non-black) 74 mL/min/{1.73_m2} Invalid Interpretation Code >60 [facility] Work Phone: [phone] eGFR (non-black) 90 mL/min/{1.73_m2} Invalid Interpretation Code >60 [facility] Work Phone: [phone] EST GFR - AA 90 mL/min >60 [facility] Work Phone: [phone] Globulin 3.9 g/dL High 2.3-3.5 [facility] Work Phone: [phone] Globulin mass conc (S) 3.9 g/dL High 2.3-3.5 [facility] Work Phone: [phone] Glucose 89 mg/dL Invalid Interpretation Code 70-110 [facility] Work Phone: [phone] Glucose mass conc 89 mg/dL 70-110 [facility] Work Phone: [phone] Potassium molar conc 4.1 mmol/L Invalid Interpretation Code 3.5-5.1 [facility] Work Phone: [phone] Protein 7.9 g/dL Invalid Interpretation Code 6.4-8.2 [facility] Work Phone: [phone] Sodium 138 mmol/L Invalid Interpretation Code 136-145 [facility] Work Phone: [phone] Urea nitrogen 18 mg/dL Invalid Interpretation Code 7-18 [facility] Work Phone: [phone] Lab Report: Lipid Profileon 12-02-2016 Cholesterol 146 mg/dL Invalid Interpretation Code 200 [facility] Work Phone: [phone] HDL Cholesterol 55 mg/dL Invalid Interpretation Code [facility] Work Phone: [phone] LDL Cholesterol 64 mg/dL Invalid Interpretation Code 0-130 [facility] Work Phone: [phone] Triglyceride 135 mg/dL Invalid Interpretation Code [facility] Work Phone: [phone] very low density lipoproteins 27 mg/dL Invalid Interpretation Code 5-40 [facility] Work Phone: [phone] Lab Report: PSA,Total - [place] al Screenon 12-02-2016 prostate specific antigen (PSA) screening 0.43 ng/mL Invalid Interpretation Code 0.00-4.00 [facility] Work Phone: [phone] Protein mass conc 0.43 ng/mL 0.00-4.00 [facility] Work Phone: [phone] PSA,TOT SCREEN 0.43 ng/mL Invalid Interpretation Code 0.00-4.00 [facility] Work Phone: [phone] Office Visit: [facility] 07-09-20 16 Documentation of current medications (procedure) Done Invalid Interpretation Code [facility] Work Phone: Protein mass conc Done [facility] Work Phone: Replaced Document: Fernanda Ybarra CG Observationson 07-09-2016 EKG QRS axis -27 deg [facility] Work Phone: [phone] electrocardiogram interpretation Sinus Rhythm Low voltage in limb leads. ABNORMAL Invalid Interpretation Code [facility] Work Phone: [phone] GE use only - for [employer] import when terms are not otherwise specified 406 ms Invalid Interpretation Code [facility] Work Phone: Interpretation Sinus Rhythm Low voltage in limb leads. ABNORMAL [facility] Work Phone: [phone] P [place] 42 deg [facility] Work Phone: [phone] P wave axis, electrocardiogram 42 deg Invalid Interpretation Code [facility] Work Phone: [phone] UT Interval 162 ms [facility] Work Phone: [phone] UT interval, electrocardiogram 162 ms Invalid Interpretation Code [facility] Work Phone: [phone] Pulse (Heart Rate) 75 /min Invalid Interpretation Code [facility] Work Phone: QRS axis, electrocardiogram -27 deg Invalid Interpretation Code [facility] Work Phone: [phone] QRS Duration 102 ms [facility] Work Phone: QRS duration, electrocardiogram 102 ms Invalid Interpretation Code [facility] Work Phone: QT Interval new path ms [facility] Work Phone: QT interval, electrocardiogram new path ms Invalid Interpretation Code [facility] Work Phone: QTc Chan 406 ms [facility] Work Phone: T [place] 26 deg [facility] Work Phone: T wave axis, electrocardiogram 26 deg Invalid Interpretation Code [facility] Work Phone: Office Visiton 01-05-2016 Dietary management education, guidance, and counseling (procedure) yes Invalid Interpretation Code [facility] Work Phone: Clinical 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 Left ventricular Ejection fraction 55 % Invalid Interpretation Code [facility] Work Phone: [phone] Lab Report: Thyroid Stim Hor nikole (TSH)on 11-01-2015 Thyroid stimulating hormone (TSH) 1.25 u[iU]/mL Invalid Interpretation Code 0.358-3.74 [facility] Work Phone: [phone] Office Visit: [facility] 05-05-20 15 Tobacco smoking status NHIS Former smoker [facility] Work Phone: [phone] Tobacco use CPHS Former smoker Invalid Interpretation Code [facility] Work Phone: [phone] Office Visiton 11-04-2014 cardiac risk group C Invalid Interpretation Code [facility] Work Phone: [phone] General cardiovascular disease 10Y risk [#] [place]D'Agostino N/A Invalid Interpretation Code [facility] Work Phone: [phone] Vital Signs Date Time Vital Sign Value Performing Clinician Faci lity 05-05-2025 08:28-0400 Body height 182.[address] Eduard Henley MD Work Phone: [facility] 05-05-2025 08:28-0400 Body mass index (BMI) [Ratio] 26.8 kg/m2 Dr. Eduard Henley MD Work Phone: [facility] 05-05-2025 08:28-0400 Body weight 89.[address] Eduard Henley MD Work Phone: [facility] 05-05-2025 08:28-0400 Diastolic blood pressure 78 mm[Hg] Dr. Eduard Henley MD Work Phone: [facility] 05-05-2025 08:28-0400 Heart rate 75 /min Dr. Eduard Henley MD Work Phone: [facility] 05-05-2025 08:28-0400 Respiratory rate 16 /min Dr. Eduard Henley MD Work Phone: [facility] 05-05-2025 08:28-0400 SaO2% (BldA) [Mass fraction] 98 % Dr. Eduard Henley MD Work Phone: [facility] 05-05-2025 08:28-0400 Systolic blood pressure 138 mm[Hg] Dr. Eduard Henley MD Work Phone: [facility] [facility] 01-22-2025 22:23-0400 Body temperature 97.9 [degF] Dr. Eduard Henley MD Work Phone: 0(838)064-405968 [place] [address] 01-22-2025 22:23-0400 Diastolic blood pressure 77 mm[Hg] Dr. Eduard Henley MD Work Phone: 1(678)390-971568 [place] [address] 01-22-2025 22:23-0400 Heart rate 104 /min Dr. Eduard Henley MD Work Phone: 2(494)993-738103 [place] [address] 01-22-2025 22:23-0400 Respiratory rate 13 /min Dr. Eduard Henley MD Work Phone: 2(445)809-504003 [place] [address] 01-22-2025 22:23-0400 SaO2% (BldA) [Mass fraction] 98 % Dr. Eduard Henley MD Work Phone: 0(839)060-354103 [place] [address] 01-22-2025 22:23-0400 Systolic blood pressure 120 mm[Hg] Dr. Eduard Henley MD Work Phone: 2(762)160-952368 [place] [address] 01-22-2025 21:30-0400 Inhaled oxygen flow rate 2 L/min Dr. Eduard Henley MD Work Phone: 5(691)957-311168 [place] [address] 01-22-2025 20:30-0400 Body height 182.[address] Eduard Henley MD Work Phone: 9(055)108-555303 [place] [address] 01-22-2025 20:30-0400 Body mass index (BMI) [Ratio] 29 kg/m2 Dr. Eduard Henley MD Work Phone: 5(667)271-853768 [place] [address] 01-22-2025 20:30-0400 Body weight 97.[address] Eduard Henley MD Work Phone: 6(688)581-130103 [place] [address] 01-22-2025 18:07-0400 Diastolic blood pressure 91 mm[Hg] Dr. Eduard Henley MD Work Phone: [facility] 01-22-2025 18:07-0400 Systolic blood pressure 145 mm[Hg] Dr. Eduard Henley MD Work Phone: [facility] 01-22-2025 17:00-0400 Heart rate 72 /min Dr. Eduard Henley MD Work Phone: 1(720)355-258768 [place] [address] 01-22-2025 17:00-0400 Respiratory rate 18 /min Dr. Eduard Henley MD Work Phone: 2(238)934-352421 [address] 01-22-2025 17:00-0400 SaO2% (BldA) [Mass fraction] 100 % Dr. Eduard Henley MD Work Phone: 1(838)286-759021 [address] 01-22-2025 13:46-0400 Body height 182.[address] Eduard Henley MD Work Phone: 7(863)013-606568 [place] [address] 01-22-2025 13:46-0400 Body mass index (BMI) [Ratio] 27.1 kg/m2 Dr. Eduard Henley MD Work Phone: 0(892)636-629468 [place] [address] 01-22-2025 13:46-0400 Body temperature 97.5 [degF] Dr. Eduard Henley MD Work Phone: 1(709)003-224268 [place] [address] 01-22-2025 13:46-0400 Body weight 90.[address] Eduard Henley MD Work Phone: 4(229)614-945468 [place] [address] 09-03-2024 03:53-0500 Body temperature 98 [degF] Dr. Eduard Henley MD Work Phone: 7(871)960-267721 [address] 09-03-2024 03:53-0500 Diastolic blood pressure 100 mm[Hg] Dr. Eduard Henley MD Work Phone: 5(521)027-121968 [place] [address] 09-03-2024 03:53-0500 Heart rate 86 /min Dr. Eduard Henley MD Work Phone: 8(428)435-040203 [place] [address] 09-03-2024 03:53-0500 Respiratory rate 18 /min Dr. Eduard Henley MD Work Phone: 7(091)078-339603 [place] [address] 09-03-2024 03:53-0500 SaO2% (BldA) [Mass fraction] 98 % Dr. Eduard Henley MD Work Phone: 7(895)578-906203 [place] [address] 09-03-2024 03:53-0500 Systolic blood pressure 145 mm[Hg] Dr. Eduard Henley MD Work Phone: 3(101)519-719103 [place] [address] 09-03-2024 00:23-0500 Body mass index (BMI) [Ratio] 28.6 kg/m2 Dr. Eduard Henley MD Work Phone: 1(376)727-812503 [place] [address] 09-03-2024 00:23-0500 Body weight 95.[address] Eduard Henley MD Work Phone: 8(257)032-910203 [place] [address] 08-06-2024 13:53-0500 Body mass index (BMI) [Ratio] 28 kg/m2 Dr. Eduard Henley MD Work Phone: 4(643)229-250803 [place] [address] 08-06-2024 13:53-0500 Body weight 93.[address] Eduard Henley MD Work Phone: 6(324)948-020403 [place] [address] 08-06-2024 13:53-0500 Diastolic blood pressure 89 mm[Hg] Dr. Eduard Henley MD Work Phone: 8(463)040-576703 [place] [address] 08-06-2024 13:53-0500 Heart rate 89 /min Dr. Eduard Henley MD Work Phone: 4(890)127-688503 [place] [address] 08-06-2024 13:53-0500 Respiratory rate 16 /min Dr. Eduard Henley MD Work Phone: 6(676)993-566003 [place] [address] 08-06-2024 13:53-0500 Systolic blood pressure 138 mm[Hg] Dr. Eduard Henley MD Work Phone: 3(552)253-807103 [place] [address] 10-02-2023 08:45-0500 Body temperature 98.6 [degF] Dr. Sergei Henley Work Phone: [facility] 10-02-2023 08:45-0500 Diastolic blood pressure 84 mm[Hg] Dr. Sergei Henley Work Phone: [facility] 10-02-2023 08:45-0500 Heart rate 83 /min Dr. Sergei Henley Work Phone: 5(474)405-272668 [place] [address] 10-02-2023 08:45-0500 Respiratory rate 18 /min Dr. Sergei Henley Work Phone: [facility] 10-02-2023 08:45-0500 SaO2% (BldA) [Mass fraction] 97 % Dr. Sergei Henley Work Phone: 7(395)255-712368 [place] [address] 10-02-2023 08:45-0500 Systolic blood pressure 117 mm[Hg] Dr. Sergei Henley Work Phone: 9(973)076-619168 [place] [address] 10-02-2023 06:44-0500 Body height 182.[address] Sergei Henley Work Phone: 8(506)998-253621 [address] 10-02-2023 06:44-0500 Body mass index (BMI) [Ratio] 27.5 kg/m2 Dr. Sergei Henley Work Phone: 4(464)524-118668 [place] [address] 10-02-2023 06:44-0500 Body weight [address] Sergei Henley Work Phone: 7(890)116-013568 [place] [address] 09-11-2023 08:30-0500 Body height 182.[address] Sergei Henley Work Phone: 0(293)773-905521 [address] 09-11-2023 08:27-0500 Body mass index (BMI) [Ratio] 28.6 kg/m2 Dr. Sergei Henley Work Phone: [facility] 09-11-2023 08:27-0500 Body weight 95.[address] Sergei Henley Work Phone: 9(654)261-802768 [place] [address] 09-11-2023 08:27-0500 Diastolic blood pressure 85 mm[Hg] Dr. Sergei Henley Work Phone: [facility] 09-11-2023 08:27-0500 Heart rate 77 /min Dr. Sergei Henley Work Phone: [facility] 09-11-2023 08:27-0500 Respiratory rate 18 /min Dr. Sergei Henley Work Phone: [facility] 09-11-2023 08:27-0500 Systolic blood pressure 141 mm[Hg] Dr. Sergei Henley Work Phone: [facility] 07-17-2023 08:17-0500 Body mass index (BMI) [Ratio] 28.9 kg/m2 Dr. Sergei Henley Work Phone: [facility] 07-17-2023 08:17-0500 Body temperature 97.2 [degF] Dr. Sergei Henley Work Phone: [facility] 07-17-2023 08:17-0500 Body weight 96.[address] Sergei Henley Work Phone: [facility] 07-17-2023 08:17-0500 Diastolic blood pressure 88 mm[Hg] Dr. Sergei Henley Work Phone: [facility] 07-17-2023 08:17-0500 Heart rate 78 /min Dr. Sergei Henley Work Phone: [facility] 07-17-2023 08:17-0500 Respiratory rate 18 /min Dr. Sergei Henley Work Phone: [facility] 07-17-2023 08:17-0500 SaO2% (BldA) [Mass fraction] 98 % Dr. Sergei Henley Work Phone: [facility] 07-17-2023 08:17-0500 Systolic blood pressure 125 mm[Hg] Dr. Sergei Henley Work Phone: [facility] 06-15-2023 07:26-0500 Body temperature 97.9 [degF] Dr. Sergei Henley Work Phone: [facility] 06-15-2023 07:26-0500 Diastolic blood pressure 83 mm[Hg] Dr. Sergei Henley Work Phone: [facility] 06-15-2023 07:26-0500 Heart rate 80 /min Dr. Sergei Henley Work Phone: [facility] 06-15-2023 07:26-0500 Respiratory rate 16 /min Dr. Sergei Henley Work Phone: [facility] 06-15-2023 07:26-0500 SaO2% (BldA) [Mass fraction] 99 % Dr. Sergei Henley Work Phone: [facility] 06-15-2023 07:26-0500 Systolic blood pressure 119 mm[Hg] Dr. Sergei Henley Work Phone: [facility] 06-14-2023 21:15-0400 Body height 182.[address] Sergei Henley Work Phone: [facility] 06-14-2023 21:15-0400 Body mass index (BMI) [Ratio] 29 kg/m2 Dr. Sergei Henley Work Phone: [facility] 06-14-2023 21:15-0400 Body weight 97.[address] Sergei Henley Work Phone: [facility] 06-14-2023 21:09-0400 Body temperature 98.4 [degF] Dr. Sergei Henley Work Phone: [facility] 06-14-2023 21:09-0400 Diastolic blood pressure 100 mm[Hg] Dr. Sergei Henley Work Phone: [facility] 06-14-2023 21:09-0400 Heart rate 88 /min Dr. Sergei Henley Work Phone: [facility] 06-14-2023 21:09-0400 Respiratory rate 22 /min Dr. Sergei Henley Work Phone: [facility] 06-14-2023 21:09-0400 SaO2% (BldA) [Mass fraction] 93 % Dr. Sergei Henley Work Phone: [facility] 06-14-2023 21:09-0400 Systolic blood pressure 152 mm[Hg] Dr. Sergei Henley Work Phone: [facility] 06-14-2023 16:36-0400 Body height 182.[address] Sergei Henley Work Phone: [facility] 06-14-2023 16:36-0400 Body mass index (BMI) [Ratio] 28.8 kg/m2 Dr. Sergei Henley Work Phone: [facility] 06-14-2023 16:36-0400 Body weight 96.[address] Sergei Henley Work Phone: [facility] 05-20-2023 13:29-0400 Body height 182.[address] Sergei Henley Work Phone: [facility] 05-20-2023 13:27-0400 Body mass index (BMI) [Ratio] 29.4 kg/m2 Dr. Sergei Henley Work Phone: [facility] 05-20-2023 13:27-0400 Body weight 98.[address] Sergei Henley Work Phone: [facility] 05-20-2023 13:27-0400 Diastolic blood pressure 80 mm[Hg] Dr. Sergei Henley Work Phone: [facility] 05-20-2023 13:27-0400 Heart rate 84 /min Dr. Sergei Henley Work Phone: [facility] 05-20-2023 13:27-0400 Respiratory rate 18 /min Dr. Sergei Henley Work Phone: [facility] 05-20-2023 13:27-0400 Systolic blood pressure 131 mm[Hg] Dr. Sergei Henley Work Phone: [facility] 04-25-2023 13:00-0400 Body mass index (BMI) [Ratio] 28.9 kg/m2 Dr. Sergei Henley Work Phone: [facility] 04-25-2023 10:23-0400 Body temperature 97.8 [degF] Dr. Sergei Henley Work Phone: [facility] 04-25-2023 10:23-0400 Diastolic blood pressure 78 mm[Hg] Dr. Sergei Henley Work Phone: [facility] 04-25-2023 10:23-0400 Heart rate 63 /min Dr. Sergei Henley Work Phone: [facility] 04-25-2023 10:23-0400 Respiratory rate 18 /min Dr. Sergei Henley Work Phone: [facility] 04-25-2023 10:23-0400 SaO2% (BldA) [Mass fraction] 96 % Dr. Sergei Henley Work Phone: [facility] 04-25-2023 10:23-0400 Systolic blood pressure 112 mm[Hg] Dr. Sergei Henley Work Phone: [facility] 04-24-2023 00:09-0400 Body height 182.[address] Sergei Henley Work Phone: [facility] 04-24-2023 00:09-0400 Body weight 96.[address] Sergei Henley Work Phone: [facility] 04-23-2023 23:38-0400 Body temperature 97.9 [degF] [facility] 04-23-2023 23:38-0400 Diastolic blood pressure 83 mm[Hg] [facility] 04-23-2023 23:38-0400 Heart rate 86 /min [facility] 04-23-2023 23:38-0400 Respiratory rate 17 /min [facility] 04-23-2023 23:38-0400 SaO2% (BldA) [Mass fraction] 99 % [facility] 04-23-2023 23:38-0400 Systolic blood pressure 126 mm[Hg] [facility] 04-23-2023 21:58-0400 Body height 182.88 cm [facility] 04-23-2023 21:58-0400 Body mass index (BMI) [Ratio] 29.5 kg/m2 [facility] 04-23-2023 21:58-0400 Body weight 98.7 kg [facility] 10-31-2021 10:52-0400 Body temperature 97.6 [degF] Dr. Sergei Henley Work Phone: [facility] Work Phone: 10-31-2021 10:52-0400 Diastolic blood pressure 86 mm[Hg] Dr. Sergei Henley Work Phone: [facility] Work Phone: 10-31-2021 10:52-0400 Heart rate 83 /min Dr. Sergei Henley Work Phone: [facility] Work Phone: 10-31-2021 10:52-0400 Respiratory rate 16 /min Dr. Sergei Henley Work Phone: [facility] Work Phone: 10-31-2021 10:52-0400 SaO2% (BldA) [Mass fraction] 96 % Dr. Sergei Henley Work Phone: [facility] Work Phone: 10-31-2021 10:52-0400 Systolic blood pressure 133 mm[Hg] Dr. Sergei Henley Work Phone: [facility] Work Phone: 10-30-2021 19:35-0400 Body height 182.[address] Sergei Henley Work Phone: [facility] Work Phone: 10-30-2021 19:35-0400 Body mass index (BMI) [Ratio] 29 kg/m2 Dr. Sergei Henley Work Phone: [facility] Work Phone: 10-30-2021 19:35-0400 Body weight [address] Sergei Henley Work Phone: [facility] Work Phone: 10-30-2021 19:18-0400 Body temperature 98.2 [degF] Dr. Sergei Henley Work Phone: [facility] Work Phone: 10-30-2021 19:18-0400 Diastolic blood pressure 89 mm[Hg] Dr. Sergei Henley Work Phone: [facility] Work Phone: 10-30-2021 19:18-0400 Heart rate 99 /min Dr. Sergei Henley Work Phone: [facility] Work Phone: 10-30-2021 19:18-0400 Respiratory rate 16 /min Dr. Sergei Henley Work Phone: [facility] Work Phone: 10-30-2021 19:18-0400 SaO2% (BldA) [Mass fraction] 99 % Dr. Sergei Henley Work Phone: [facility] Work Phone: 10-30-2021 19:18-0400 Systolic blood pressure 142 mm[Hg] Dr. Sergei Henley Work Phone: [facility] Work Phone: 10-30-2021 15:00-0400 Body mass index (BMI) [Ratio] 30.2 kg/m2 Dr. Sergei Henley Work Phone: [facility] Work Phone: 10-30-2021 15:00-0400 Body weight 100.[address] Sergei Henley Work Phone: [facility] Work Phone: 08-20-2021 07:38-0500 Diastolic blood pressure 75 mm[Hg] Dr. Sergei Henley Work Phone: [facility] Work Phone: 08-20-2021 07:38-0500 Systolic blood pressure 138 mm[Hg] Dr. Sergei Henley Work Phone: [facility] Work Phone: 08-14-2020 07:21-0500 Body mass index (BMI) [Ratio] 29.1 kg/m2 Dr. Sergei Henley Work Phone: [facility] Work Phone: 01-20-2017 08:42-0400 BMI (Body Mass Index) 28.34 kg[facility] Work Phone: 01-20-2017 08:42-0400 BP Diastolic 76 mm[Hg] Harumi DeFinis [facility] Work Phone: 01-20-2017 08:42-0400 BP Systolic 118 mm[Hg] Harumi DeFinis [facility] Work Phone: 01-20-2017 08:42-0400 Height 182.88 cm Harumi DeFinis [facility] Work Phone: 01-20-2017 08:42-0400 Pulse (Heart Rate) 88 /min Harumi DeFinis [facility] Work Phone: 01-20-2017 08:42-0400 Respiratory Rate 20 /min Harumi DeFinis [facility] Work Phone: 01-20-2017 08:42-0400 Weight 94.8 kg Harumi DeFinis [facility] Work Phone: 07-09-2016 08:40-0500 Heart rate 75 /min Harumi DeFinis [facility] Work Phone: 07-09-2016 08:26-0500 BMI (Body Mass Index) 28.33 kg/m2 Harumi Fernando [facility] Work Phone: 07-09-2016 08:26-0500 BP Diastolic 90 mm[Hg] Harumi DeFinis [facility] Work Phone: 07-09-2016 08:26-0500 BP Systolic 130 mm[Hg] Harumi DeFinhenrik [facility] Work Phone: 07-09-2016 08:26-0500 BSA (Body Surface Area) 2.17 m2 Harumi DeFinis [facility] Work Phone: 07-09-2016 08:26-0500 Pulse (Heart Rate) 75 /min Hartony DeFinhenrik [facility] Work Phone: 07-09-2016 08:26-0500 Respiratory Rate 16 /min Hartony DeFinis [facility] Work Phone: 07-09-2016 08:26-0500 Weight 94.76 kg Hartony DeFinhenrik [facility] Work Phone: 07-07-2010 15:49-0500 Height 182.88 cm Russellumi DeFinhenrik [facility] Work Phone: Encounters Encounter Date Encounter Type Care Provider Facility Start: 05-05-2025 End: 05-05-2025 Patient encounter procedure Mitchell Dubois [facility] Work Phone: Start: 05-05-2025 End: 05-05-2025 ambulatory Mitchell Dubois NP Facility:[facility] Start: 01-27-2025 End: 01-27-[address] Eduard Henley MD Work Phone: [facility] Work Phone: Start: 01-27-2025 End: 01-27-[address] Eduard Henley MD -[facility] Start: 01-27-2025 End: 01-27-2025 ambulatory Eduard Henley Facility:[facility] Start: 01-22-2025 End: 01-22-2025 Emergency department patient visit Dr. Eduard Henley MD Work Phone: -Emergency Department Work Phone: Start: 01-22-2025 End: 01-22-2025 Emergency department patient visit Dr. Eduard Henley MD Work Phone: -Emergency Department Work Phone: Start: 11-09-2024 End: 11-09-2024 Patient encounter procedure Mg JEWELL [facility] Work Phone: Start: 11-09-2024 End: 11-09-2024 ambulatory Mg JEWELL Facility:[facility] Start: 11-03-2024 ambulatory Jose Lockwood Facility:[facility] Start: 11-03-2024 Non-patient / Non-visit Dr. Vita SY -[facility] Start: 11-03-2024 End: 11-03-[address] Eduard Henley MD Work Phone: [facility] Work Phone: Start: 11-03-2024 End: 11-03-2024 Patient encounter procedure Mitchell Dubois [facility] Work Phone: Start: 11-03-2024 End: 11-03-2024 ambulatory Mitchell Dubois NP Facility:[facility] Start: 09-28-2024 End: 09-28-[address] Eduard Henley MD -[facility] Start: 09-28-2024 End: 09-28-2024 ambulatory Eduard Henley Facility:[facility] Start: 09-03-2024 ambulatory Eduard Henley Faci lity:[facility] Start: 09-03-2024 Non-patient / Non-visit Dr. Francheska Ray MD -[facility] Work Phone: Start: 09-03-2024 End: 09-03-[address] Eileen Ray MD -[facility] Work Phone: Start: 09-03-2024 End: 09-03-2024 Emergency department patient visit Dr. Jesus Romero DO -Emergency Department Work Phone: Start: 09-03-2024 End: 09-03-2024 ambulatory Eduard Henley Facility:[facility] Start: 08-06-2024 End: 08-06-[address] Jose Lockwood MD -[facility] Work Phone: Start: 08-06-2024 End: 08-06-2024 ambulatory Eduard Henley Facility:[facility] Start: 05-18-2024 ambulatory Eduard Henley Faci lity:[facility] Start: 10-02-2023 Non-patient / Non-visit Dr. Mario Henley Work Phone: [facility] Start: 10-02-2023 End: 10-02-2023 Admission to same day surgery center Dr. Sergei Henley Work Phone: [facility] Work Phone: Start: 10-02-2023 End: 10-02-[address] Sergei Henley Work Phone: [facility] Work Phone: Start: 09-11-2023 End: 09-11-[address] Sergei Henley Work Phone: [facility] Work Phone: Start: 09-10-2023 End: 09-10-[address] Sergei Henley Work Phone: [facility] Work Phone: Start: 09-10-2023 End: 09-10-[address] Sergei Henley Work Phone: [facility] Start: 07-17-2023 End: 07-17-[address] Sergei Henley Work Phone: [facility] Work Phone: Start: 07-07-2023 End: 07-07-[address] Sergei Henley Work Phone: [facility] Work Phone: Start: 07-07-2023 End: 07-07-[address] Sergei Henley Work Phone: [facility] Work Phone: Start: 06-15-2023 Non-patient / Non-visit Dr. Mario Henley Work Phone: [facility] Work Phone: Start: 06-14-2023 End: 06-15-2023 Evaluation and management of inpatient Dr. Sergei Henley Work Phone: [facility] Work Phone: Start: 06-14-2023 End: 06-15-[address] Sergei Henley Work Phone: [facility] Work Phone: Start: 06-02-2023 End: 06-02-[address] Sergei Henley Work Phone: [facility] Work Phone: Start: 06-02-2023 End: 06-02-[address] Sergei Henley Work Phone: [facility] Start: 05-20-2023 End: 05-20-[address] Sergei Henley Work Phone: [facility] Work Phone: Start: 04-25-2023 Non-patient / Non-visit Dr. Mario Henley Work Phone: [facility] Work Phone: Start: 04-25-2023 Non-patient / Non-visit Dr. Mario Henley Work Phone: [facility] Start: 04-24-2023 Non-patient / Non-visit Dr. Mario Henley Work Phone: [facility] Start: 04-23-2023 Non-patient / Non-visit Dr. Mario Henley Work Phone: [facility] Work Phone: Start: 04-23-2023 End: 04-25-2023 Evaluation and management of inpatient [facility] Work Phone: Start: 05-06-2022 End: 05-06-2022 ambulatory [facility] Work Phone: Start: 05-06-2022 End: 05-06-2022 Patient encounter procedure [facility] Start: 10-31-2021 Non-patient / Non-visit Dr. Mario Henley Work Phone: [facility] Start: 10-30-2021 Non-patient / Non-visit Dr. Mario Henley Work Phone: [facility] Start: 10-30-2021 End: 10-31-2021 Evaluation and management of inpatient [facility]. Sergei Henley [facility] Start: 08-20-2021 End: 08-20-[address] Sergei Henley Work Phone: [facility] Procedures Date Procedure Procedure Detail Performing Clinician Start: 01-27-2025 Lawrence Henley MD Work Phone: Start: 01-27-2025 Briana Henley MD Work Phone: Start: 01-27-[address] Neeraj Henley MD Work Phone: Start: 01-22-2025 Plain chest X-ray Dr. Cliff [...] med using the TPSA assay method for [employer] chemistry system. Values obtained with differentassay methods [...] PA a nd lateral views Dr. Eduard eHnley MD Work Phone: Start: 10-02-[address] [...] Brain Whyte MD Start: 01-05-2016 End: 01-05-2016 MMM Brain Whyte MD Start: 10-31-2015 End: 11-01-2015 [...] Date Care Activity Detail Author Start: 01-22-2025 [facility] Start: 01-22-2025 End: 01-22-2025 [facility] Start: 09-03-2024 [facility] Start: 02-22-2024 Patient discharge [facility] Start: 06-15-2023 Patient discharge [facility] Start: 06-14-2023 Following clinical pathway protocol [facility] Start: 06-14-2023 Assessment of risk of venous thromboembolism [facility] Start: 06-14-2023 Inhalation therapy procedure [facility] Start: 06-14-2023 Insertion of catheter into peripheral vein [facility] Start: 06-14-2023 Providing care according to standard [facility] Start: 06-14-2023 Provision of activity privileges [facility] Start: 06-14-2023 [facility] Start: 06-14-2023 Admission procedure [facility] Start: 06-14-2023 Verification routine [facility] Start: 06-14-2023 Hospital admission, emergency, from emergency room, medical nature [facility] Start: 04-25-2023 Patient referral [facility] Work Phone: Start: 04-25-2023 Patient discharge [facility] Start: 04-24-2023 Cardiac monitoring [facility] Start: 04-24-2023 Cardiac rehabilitation - phase 1 [facility] Start: 04-24-2023 Cardiac rehabilitation - phase 2 [facility] Start: 04-24-2023 Patient discharge [facility] Start: 04-24-2023 Systemic arterial pressure monitoring [facility] Start: 04-24-2023 End: 04-24-2023 Taking patient vital signs [facility] Start: 04-24-2023 Vascular disease risk assessment [facility] Start: 04-24-2023 Vital signs measurements [facility] Start: 04-24-2023 End: 04-24-2023 [facility] Start: 04-24-2023 End: 04-24-2023 Notification of physician [facility] Start: 04-24-2023 Patient education [facility] Start: 04-24-2023 Provision of activity privileges [facility] Start: 04-24-2023 Pulse taking [facility] Start: 04-24-2023 Wound care [facility] Start: 04-24-2023 Referral to regulatory associate [facility] Start: 04-24-2023 Following clinical pathway protocol [facility] Start: 04-24-2023 Assessment of risk of venous thromboembolism [facility] Start: 04-24-2023 Cardiac monitoring [facility] Start: 04-24-2023 Catheterization of vein [facility] Start: 04-24-2023 Elevation of head of bed [facility] Start: 04-24-2023 Exercises [facility] Start: 04-24-2023 Implementation of planned interventions [facility] Start: 04-24-2023 Insertion of catheter into peripheral vein [facility] Start: 04-24-2023 Measuring intake and output [facility] Start: 04-24-2023 Notification of physician [facility] Start: 04-24-2023 Providing care according to standard [facility] Start: 04-24-2023 Provision of activity privileges [facility] Start: 04-24-2023 Referral to occupational therapist [facility] Start: 04-24-2023 Referral to service [facility] Start: 04-24-2023 Speech therapy assessment [facility] Start: 04-24-2023 Tobacco use cessation education [facility] Start: 04-24-2023 [facility] Start: 04-24-2023 Vital signs measurements [facility] Start: 04-23-2023 Electrocardiographic procedure [facility] Start: 04-23-2023 Verification routine [facility] Start: 04-23-2023 Admission procedure [facility] Start: 04-23-2023 Oxygen therapy [facility] Start: 04-23-2023 [facility] Start: 01-26-2018 End: 01-26-2018 Appointment Appointment [email or web address] Work Phone: Start: 08-12-2017 End: 08-12-2017 Appointment Appointment [facility] Phone: Start: 06-03-2017 End: 12-06-2016 *Hepatic Function Panel *Hepatic Function Panel [facility] Phone: Start: 06-03-2017 End: 12-06-2016 Lipid panel [AGGREGATE] *Lipid Profile CC PCP [email or web address] Work Phone: Start: 06-03-2017 End: 12-06-2016 *Hepatic Function Panel *Hepatic Function Panel [facility] Work Phone: Start: 06-03-2017 End: 12-06-2016 Lipid panel [AGGREGATE] *Lipid Profile CC PCP [facility] Work Phone: Start: 01-20-2017 End: 01-20-2017 Appointment Appointment [facility] Work Phone: Start: 01-20-2017 End: 01-20-2017 Appointment Appointment [facility] Work Phone: Start: 01-20-2017 End: 01-20-2017 Follow Up Appt 6 months Follow Up Appt 6 months [facility] Work Phone: Start: 01-20-2017 End: 01-20-2017 MMM MMM [facility] Work Phone: Start: 11-28-2016 End: 12-02-2016 *Hepatic Function Panel *Hepatic Function Panel [facility] Work Phone: Start: 11-28-2016 End: 12-02-2016 Lipid panel [AGGREGATE] *Lipid Profile CC PCP [facility] Work Phone: Start: 11-28-2016 End: 12-02-2016 *Hepatic Function Panel *Hepatic Function Panel [facility] Work Phone: Start: 11-28-2016 End: 12-02-2016 Lipid panel [AGGREGATE] *Lipid Profile CC PCP [facility] Work Phone: Start: 07-09-2016 End: 07-09-2016 Follow Up Appt 6 months Follow Up Appt 6 months [facility] Work Phone: Start: 07-09-2016 End: 07-09-2016 PFM PFM [facility] Work Phone: Start: 07-09-2016 End: 07-09-2016 Follow Up Appt 6 months Follow Up Appt 6 months [facility] Work Phone: Start: 07-09-2016 End: 07-09-2016 PFM PFM [facility] Work Phone: Start: 05-03-2016 End: 05-30-2016 *Hepatic Function Panel *Hepatic Function Panel [facility] Work Phone: Start: 05-03-2016 End: 05-30-2016 Lipid panel [AGGREGATE] *Lipid Profile CC PCP [facility] Work Phone: Start: 05-03-2016 End: 05-30-2016 *Hepatic Function Panel *Hepatic Function Panel [facility] Work Phone: Start: 05-03-2016 End: 05-30-2016 Lipid panel [AGGREGATE] *Lipid Profile CC PCP [facility] Work Phone: Start: 01-05-2016 End: 01-05-2016 Follow Up Appt 6 months Follow Up Appt 6 months [facility] Work Phone: Start: 01-05-2016 End: 01-05-2016 MMM MMM [facility] Work Phone: Start: 01-05-2016 End: 01-05-2016 Follow Up Appt 6 months Follow Up Appt 6 months [facility] Work Phone: Start: 01-05-2016 End: 01-05-2016 MMM MMM [facility] Work Phone: Start: 10-31-2015 End: [...] w/least 12 lds w/i&r EKG (In office) [facility] Work Phone: Start: 05-05-2015 End: 05-05-2015 Follow Up Appt 6 months Follow Up Appt 6 months [facility] Work Phone: Start: 05-05-2015 End: 05-01-2015 Lipid panel [AGGREGATE] *Lipid Profile CC PCP [facility] Work Phone: Start: 05-05-2015 End: 05-30-2016 PFM PFM [facility] Work Phone: Start: 05-05-2015 End: 05-01-2015 *Hepatic Function Panel *Hepatic Function Panel [facility] Work Phone: Start: 05-05-2015 End: 05-30-2016 Electrocardiogram, complete EKG (In office) [facility] Work Phone: Start: 05-05-2015 End: 05-05-2015 Follow Up Appt 6 months Follow Up Appt 6 months [facility] Work Phone: Start: 05-05-2015 End: 05-01-2015 Lipid panel [AGGREGATE] *Lipid Profile CC PCP [facility] Work Phone: Start: 05-05-2015 End: 05-30-2016 PFM PFM [facility] Work Phone: Start: 11-04-2014 End: 04-26-2015 *Hepatic Function Panel *Hepatic Function Panel [facility] Work Phone: Start: 11-04-2014 End: 04-26-2015 Follow Up Appt 6 months Follow Up Appt 6 months [facility] Work Phone: Start: 11-04-2014 End: 04-26-2015 Lipid panel [AGGREGATE] *Lipid Profile CC PCP [facility] Work Phone: Start: 11-04-2014 End: 04-26-2015 MMM MMM [facility] Work Phone: Start: 11-04-2014 End: 04-26-2015 *Hepatic Function Panel *Hepatic Function Panel [facility] Work Phone: Start: 11-04-2014 End: 04-26-2015 Follow Up Appt 6 months Follow Up Appt 6 months [facility] Work Phone: Start: 11-04-2014 End: 04-26-2015 Lipid panel [AGGREGATE] *Lipid Profile CC PCP [facility] Work Phone: Start: 11-04-2014 End: 04-26-2015 MMM MMM [facility] Work Phone: Start: 10-31-2014 End: 11-03-2014 *Hepatic Function Panel *Hepatic Function Panel [facility] Work Phone: Start: 10-31-2014 End: 11-03-2014 Lipid panel [AGGREGATE] *Lipid Profile CC PCP [facility] Work Phone: Start: 10-31-2014 End: 11-03-2014 *Hepatic Function Panel *Hepatic Function Panel [facility] Work Phone: Start: 10-31-2014 End: 11-03-2014 Lipid panel [AGGREGATE] *Lipid Profile CC PCP [facility] Work Phone: Start: 05-02-2014 End: 04-26-2015 Follow Up Appt 6 months Follow Up Appt 6 months [facility] Work Phone: Start: 05-02-2014 End: 04-26-2015 PFM PFM [facility] Work Phone: Start: 05-02-2014 End: 04-26-2015 Follow Up Appt 6 months Follow Up Appt 6 months [facility] Work Phone: Start: 05-02-2014 End: [...] 6 months Follow Up Appt 6 months [facility] Work Phone: Start: 10-25-2013 End: 11-09-2013 Lipid panel [AGGREGATE] *Lipid Profile CC PCP [facility] Work Phone: Start: 10-25-2013 End: [...] stress test -exercise Nuclear stress test -exercise [facility] Work Phone: Start: 05-11-2013 End: 06-07-2013 *Hepatic Function Panel *Hepatic Function Panel [facility] Work Phone: Start: 05-11-2013 End: 06-07-2013 Lipid panel [AGGREGATE] *Lipid Profile [facility] Work Phone: Start: 05-11-2013 End: 06-07-2013 *Hepatic Function Panel *Hepatic Function Panel [facility] Work Phone: Start: 05-11-2013 End: 06-07-2013 Lipid panel [AGGREGATE] *Lipid Profile [facility] Work Phone: Start: 01-11-2013 End: 01-11-2013 Follow Up Appt 6 months Follow Up Appt 6 months [facility] Work Phone: Start: 01-11-2013 End: 01-11-2013 PFM PFM [facility] Work Phone: Start: 01-11-2013 End: 01-11-2013 Follow Up Appt 6 months Follow Up Appt 6 months [facility] Work Phone: Start: 01-11-2013 End: 01-11-2013 PFM PFM [facility] Work Phone: Start: 11-09-2012 End: 11-11-2012 *Hepatic Function Panel *Hepatic Function Panel [facility] Work Phone: Start: 11-09-2012 End: 11-11-2012 Lipid panel [AGGREGATE] *Lipid Profile [facility] Work Phone: Start: 11-09-2012 End: 11-11-2012 *Hepatic Function Panel *Hepatic Function Panel [facility] Work Phone: Start: 11-09-2012 End: 11-11-2012 Lipid panel [AGGREGATE] *Lipid Profile [facility] Work Phone: Start: 06-01-2012 End: 06-10-2012 *Hepatic Function Panel *Hepatic Function Panel [facility] Work Phone: Start: 06-01-2012 End: 12-30-2012 Follow Up Appt 6 months Follow Up Appt 6 months [facility] Work Phone: Start: 06-01-2012 End: 06-10-2012 Lipid panel [AGGREGATE] *Lipid Profile [facility] Work Phone: Start: 06-01-2012 End: 06-10-2012 *Hepatic Function Panel *Hepatic Function Panel [facility] Work Phone: Start: 06-01-2012 End: 12-30-2012 Follow Up Appt 6 months Follow Up Appt 6 months [facility] Work Phone: Start: 06-01-2012 End: 06-10-2012 Lipid panel [AGGREGATE] *Lipid Profile [facility] Work Phone: Start: 11-28-2011 End: 11-28-2011 Follow Up Appt 6 months Follow Up Appt 6 months [facility] Work Phone: Start: 11-28-2011 End: 11-28-2011 Follow Up Appt 6 months Follow Up Appt 6 months [facility] Work Phone: Lipid 1996 panel - S sharon or Plasma [facility] Patient Education [facility] Work Phone: Patient referral [facility] Work Phone: Troponin T.cardiac [Mass/volume] in Serum or Plasma by High sensitivity method [facility] Immunizations Immunization Date Immunization Notes Care Provider Fa cili 05-11-2021 Influenza, high dose seasonal Dr. Eduard Henley MD Work Phone: [facility] 05-11-2021 influenza, high dose seasonal, preservative-free Dr. Sergei Henley Work Phone: [facility] 06-25-[address] Sergei Henley Work Phone: [facility] 01-11-2014 tetanus and diphther ia toxoids, adsorbed, preservative free, for adult use (2 Lf of tetanus toxoid and 2 Lf of diphtheria toxoid) Dr. Sergei Henley Work Phone: [facility] Payers Date Payer Category Payer Private Health Insurance [id number] Private Health Insurance [id number] Self-pay [id number] 2011 Private Health Insurance [id number] Unknown [id number] 2.16.8 [id number] Unknown [id number] 2.16.8 [id number] Unknown [id number] 2.16.8 [id number] Unknown [id number] 2.16.8 [id number] Unknown [id number] 2.16.8 [id number] Unknown [id number] 2.16.8 [id number] Unknown [id number] 2.16.8 [id number] Unknown [id number] 2.16.8 [id number] Unknown [id number] 2.16.8 [id number] Unknown [id number] 2.16.8 [id number] Unknown [id number] 2.16.8 [id number] Unknown [id number] 2.16.8 [id number] Unknown [id number] 2.16.8 [id number] Social History Date Type Detail Facility Start: 10-30-2021 End: 09-25-2023 Tobacco smoking status NHIS Unknown if ever smoked [facility] Start: 10-23-[address] [facility] Start: 10-23-[address] [facility] Start: 10-23-2017 Spouse/ Signif icant Other [facility] Start: 10-23-[address] [facility] Start: 1965 Sex Assigned At Male [facility] Start: 04-25-2023 - [facility] Start: 10-27-2024 End: 01-22-2025 Tobacco smoking status NHIS Ex-smoker (finding) [facility] Start: 11-07-2024 Sex Male (finding) [facility] Sex Male [facility] Medical Equipment Procedure Code Equipment Code Equipment Origin al Text Equipment Identifier Dates Drug-eluting coronary artery stent, qkr-[id number]-[id number] lymer-coated [id number] 24 FDA Start: 04-24-2023 Drug-eluting coronary artery stent, [id number]-vn lymer-coated ()[id number] 02 FDA Start: 04-24-2023 Goals Date Patient Goal Desired Activity /State Functional Status Date Assessment Result Facility 06-15-2023 Functional status Activity Ability Indepe ndent [facility] Work Phone: 04-25-2023 Functional status Ambulates;Up a d jovon;Bathroom Privilege [facility] Work Phone: 10-31-2021 Functional status Independent [facility] Work Phone: Mental Status Date Assessment Result Facility 01-22-2025 Cognitive function Voice/Name [facility] Work Phone: 09-03-2024 Cognitive function Voice/Name [facility] Work Phone: 10-02-2023 Cognitive function Voice/Name [facility] Work Phone: 06-14-2023 Cognitive function Appropriate;Cooperativ e [facility] Work Phone: 04-25-2023 Cognitive function Voice/Name [facility] Work Phone: 04-23-2023 Cognitive function Voice/Name [facility] Work Phone: 10-31-2021 Cognitive function Voice/Name [facility] Work Phone: 10-30-2021 Cognitive function Voice/Name [facility] Work Phone: Clinical Notes 06-11-2010 to 05-05-2025 Note Date & Type Note Facility 05-05-2025 Progress note [facility] 01-22-2025 Discharge summary [facility] 01-22-2025 Discharge summary [facility] 01-22-2025 Radiology Diagnostic study note [facility] Imaging Services [address] [place], [place] [address] Chest 1 View (Portable) MR#: [id number] Acct: [id number] Name: JOVANY MUÑIZ Rep #: [id number] : 1965 M 59 From: Shanelle Ramos MD PCP: Dr. Eduard Henley MD Status: REG ER Study:Chest 1 View (Portable) Date of Exam: 01/22/25 Exam# [id number] Ordering Dr: Dave Mercer MD PROCEDURE: CHEST 1 VIEW (PORTABLE) 01/22/2025 REASON FOR EXAM: CHEST PAIN TECHNIQUE: Frontal view of the chest. COMPARISON: Chest radiograph 09/03/2024. FINDINGS: Hardware: None. Heart: The heart size is normal. Lungs: No focal consolidation, pleural effusion or pneumothorax. Bones: Degenerative changes are identified within the thoracic spine. RAD/Chest 1 View (Portable) IMPRESSION: Negative Chest. Reading Location: [facility] CC: Dr. Eduard Henley MD; Dr. Robert Mercer MD ~ Train Station Server: Signed [facility] 01-22-2025 Discharge summary Note Date/Time January 22, 2025 5:53pm [facility] Medical Records Department [address] [place] [address] Emergency Department Summary 01/22/25 MR#: [id number] Acct: [id number] Name: JOVANY MUÑIZ Rep #:[id number] : 1965 59 From: Robert Mercer [...] TAD Risk Factors: Negative for Marfan's Syndrome [facility] Medical History Wears partial dentures High cholesterol Heartburn Gastric reflux History of diverticulitis Former smoker History of heart attack History of echocardiogram History of stress test Hypertension Cardiology follow-up encounter Sigmoid diverticulitis History of coronary artery disease Presence of stent in coronary artery (04/25/23) Essential hypertension HLD (hyperlipidemia) Old myocardial infarction 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) Home [...] in his cast. 5 out of 5 digital program manager strength. Equal and symmetrical radial pulses. Dorsi [...] % (Auto) 64.2 Lymph % (Auto) 22.1 Irion % (Auto) 10.1 H Eos % (Auto) [...] 01/22/25 14:25 IMPRESSION: Negative Chest. Reading Location: [facility] Chest x-ray, portable, single view interpreted [...] rhythm rate 88 no acute signs of PR or ischemia. Discharge Plan Triage Chief Complaint: Chest Pain ED Provider: Robert Mercer Dx/Rx/DC Orders Clinical Impression: Chest pain, History of coronary artery disease, History of PR (myocardial infarction) Instructions: ED Chest Pain, Uncertain [...] bad we can find today. Print Language: [place] Disposition Disposition: Home, Self Care What to do if you have Problems For any increased pain, shortness of breath, bleeding, nausea or vomiting, chestpain, or any unexpected problems, contact your Primary Care Provider. Call [facility] ([phone]) or report to the closest Emergency Room. Call 911 if necessary. 01/22/251752 <Electronically signed by Robert Mercer MD> [facility] ([facility] applicable[facility] CC: Dr. Eduard Henley MD ~ Signed [facility] Work Phone: 1(258) 828-933106-14-2025 Discharge summary Author Robert Mercer [facility] Note Date/Time January 22, 2025 10:1 6pm [facility] Medical Records Department [address] [place] [address] Emergency Department Summary 01/22/25 MR#: [id number] Acct: [id number] Name: JOVANY MUÑIZ Rep #:[id number] : 1965 59 From: Robert Mercer MD PCP: Dr. Eduard Henley MD Status :REG ER Location: ED HPI History of Present Illness Chief Complaint: Allergic Reaction Informant: patient and spouse/S.O. Onset/Context/Timing Onset: Today Context: Sudden Onset Timing: Continuous Current Severity: Moderate Maximum Severity: Moderate Narrative Narrative: 59-year-old male history of CAD PR stent. Seen earlier tonight for atypical back pain. Workup was negative. He was discharged home. When he got home around 6:37 he is from dinner. Shortly thereafter he start developing itching redness and hives. He said he is never had allergic reaction before. He was brought in by squad he reportedly gave him subcu epinephrine. He denies any tongue or lip swelling. No trouble breathing or wheezing. Prior similar symptoms: No Recent Illness/Hospitalization: No PFSH PFSH Medical History Wears partial dentures High cholesterol Heartburn Gastric reflux History of diverticulitis Former smoker History of heart attack History of echocardiogram History of stress test Hypertension Cardiology follow-up encounter Sigmoid diverticulitis History of coronary artery disease Presence of stent in coronary artery (04/25/23) Essential hypertension HLD (hyperlipidemia) Old myocardial infarction 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) Home [...] Type Severity Reaction Status Date / Time shrimp Allergy Severe Anaphylaxis Verified 01/22/25 20:30 Family History Grandfather , age 76 CVA [...] home: Yes ROS ROS ED ROS Narrative Itching. Hives. Constitutional Constitutional ED: Denies chills or fever(s) Eyes Eyes: Denies blurry vision Cardiovascular Cardiovascular: Denies chest pain Respiratory/Chest Respiratory/Chest: Denies cough Gastrointestinal Gastrointestinal: Denies abdominal pain or nausea Genitourinary Genitourinary ED: Denies dysuria or hematuria Musculoskeletal Musculoskeletal: Denies arthralgias or back pain Integumentary Reports rash and other Details: Itching and hives. ; Denies abscess or Abrasions Neurologic Neurologic: Denies headache(s) Psychiatric Psychiatric: Denies anxiety Endocrine Endocrinology: Denies cold intolerance Hematologic/Lymphatic Hematologic/Lymphatic: Reports none Allergic/Immunologic Allergic/Immunologic ED: Denies mouth swelling, tongue swelling or urticaria EXAM Physical Exam Narrative Exam Narrative: 59-year-old male sitting upright in bed with at bedside. He is anxious. HEENT exam pupils round react to light. Moist mucous membranes. Tongue and lipsare not swelling. No trouble breathing. No stridor or drooling. Neck nontender. Lungs clear. Heart regular rhythm rate about 100 no murmur. Chest wall and ribs nontender. He has a red rash consistent with hives. It does beena. Abdomen soft nontender. No peritoneal signs. Moving all 4 extremities. He has redness on his upper extremities to it also blanches. Backnontender. Neurologically he is awake alert. He is anxious. No focal motor deficits. Exam consistent with allergic reaction. Const Vital Signs: 01/22/25 20:30 01/22/25 20:59 01/22/25 21:30 Temperature 99.3 F H Temperature Source Temporal Pulse Rate 100 107 H 109 H Respiratory Rate 18 19 H 18 Blood Pressure 124/85 H 120/86 H 130/77 H Blood Pressure Mean 98 97 94 Pulse Ox 100 100 100 Oxygen Delivery Method Nasal Cannula Nasal Cannula Nasal Cannula Oxygen Flow Rate (L/min) 2 3 2 01/22/25 22:00 Temperature Temperature Source Pulse Rate 107 H Respiratory Rate 16 Blood Pressure 133/72 H Blood Pressure Mean 92 Pulse Ox 98 Oxygen Delivery Method Room Air Oxygen Flow Rate (L/min) Positive well nourished and well developed; Negative for cachectic, contracturesor unkempt General Appearance ED: well developed; Negative for unkempt, cachectic, contractures, cyanotic, diaphoretic or pallor Nutritional Appearance: Negative for cachectic HEENT Reports moist mucous membranes Negative for trauma or tenderness Eyes PERRL and EOMs intact bilaterally Neck no lymphadenopathy, supple and no JVD Chest Wall inspection of chest normal and palpation of chest normal Resp normal respiratory effort and clear to auscultation bilaterally Cardio regular rate, regular rhythm, S1 normal heart sound, S2 normal heart sound and no murmurs GI normal to inspection, nondistended, normoactive bowel sounds, non-tender, non-distended and no masses Auscultation: normoactive bowel sounds Palpation: soft; Negative for tender, guarding, mass or rebound tenderness present Back/Spine no CVA tenderness Extremity normal to inspection Extremity Narrative: Rash consistent with allergic reaction. Red. Blanches. General Extremety ED: Negative for edema or tenderness General Extremity: Negative for edema Neuro oriented x3 and CN's II-XII intact bilaterally Sensorium / Orientation: alert; Negative for orientation impaired, lethargic or stuporous Motor Exam: strength 5/5 throughout Psych mental status grossly normal Appearance: Negative for unkempt Mood & Affect: anxious Skin No no rashes or lesions noted, no wounds and skin turgor normal Skin Narrative: Red. Raised. Consistent with generalized allergic reaction of hives. Blanches. General Skin Exam: Negative for jaundice or pallor Lesions: No lesion noted Rashes: rashes noted Trauma: Negative for abrasion MDM MDM MDM Narrative Medical decision making narrative: 59-year-old male seen earlier today for atypical chest and back pain. Presents now secondary to a generalized allergic reaction to possibly eating shrimp. Gave epinephrine. He still having the rash and itching. Will be given IV Benadryl and Solu-Medrol and observe. Repeat exam patient is doing much better at 10:12 PM. Rash is almost resolved. Hives have resolved. He is feeling much better. Be discharged. He was given Solu- Medrol earlier. He will use Benadryl as needed. He knows to avoid shellfish. History & Record Review Discussion w/independent historian: Patient and Family Additional record(s) reviewed:: Prior inpatient record, Prior outpatient record,Prior ED visit and Prior labs Discharge Plan Triage Chief Complaint: Allergic Reaction ED Provider: Robert Mercer Dx/Rx/DC Orders Clinical Impression: Allergic reaction, Hives Instructions: ED Food Allergy Prescriptions: No Action aspirin [Adult Low Dose [...] Eduard Henley MD [Primary Care Provider] - As Needed Activity Restrictions/Additional Instructions: Benadryl as needed for itching. Avoid shrimp or shellfish seems that you have an allergy to it. Follow-up with your doctor as needed. Print Language: [place] Disposition Disposition: Home, Self Care What to do if you have Problems For any increased pain, shortness of breath, bleeding, nausea or vomiting, chestpain, or any unexpected problems, contact your Primary Care Provider. Call [facility] ([phone]) or report to the closest Emergency Room. Call 911 if necessary. 01/22/256 <Electronically signed by Robert Mercer MD> Cosigner Signature (if applicable): CC: Dr. Eduard Henley MD ~ Signed [facility] Work Phone: 1([phone]) 740-818804-01-2025 Evaluation note* Diagnosis Onset Date Resolution Status Admit Date Encounter for examination required by Department of 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) acute November 09, 2024 5:56am [facility] Work Phone: 1(879) 291-453712-27-2024 Evaluation note* Diagnosis Onset Date Resolution Status Admit Date HLD (hyperlipidemia) chronic Dece mber 2023 1:33pm Presence of coronary angioplasty implant and graft April 25, 2023 chronic August 062023 1:33pm [facility] Work Phone: 1(151) 998-173702-22-2024 Procedure [facility] 10-02-2023 Procedure [facility]02-22-2024 Procedure note [facility]02-22-2024 Procedure [facility] 06-15-2023 Progress note Author Rommel Youssef [facility] June 15, 2023 10:24am Note Date/Time June 15, 2023 7 :38am [facility] Medical Records Department [address] [place] [address] Progress Note - Hospitalist 06/15/23 0733 MR#: [id number] Acct: [id number] Name: JOVANY MUÑIZ Rep #:[id number] : 1965 57 From: Rommel Youssef DO PCP: Dr. Sergei Henley MD Status: ADM [place] Location: [place] [id number] Subjective Subjective Feeling better. Tolerated full liquid [...] 83.8 H, Lymph % (Auto) 10.2 L, Irion % (Auto) 2.7, Eos % (Auto) 2.5, [...] Clarity Clear, Urine pH 7.0, Ur Specific [place] 1.010, Urine Protein Negative, Urine Glucose (UA) [...] Signed: Kris White MD at 17:53 EDT Reading Location ID and State: [facility] / [place] Tel , Service support , Physical Exam [...] Cosigner Signature (if applicable): CC: ~ Signed [facility] Work Phone: 1(993) 532-213811-04-2023 History and physical note Author Meliza Ramírez [facility] June 14, 2023 7:41pm Note Date/Time June 14, 2023 7 :41pm [facility] Medical Records Department [address] [place] [address] H&P Exam - Hospitalist 06/14/231930 MR#: [id number] Acct: [id number] Name: JOVANY MUÑIZ Rep #:[id number] : 1965 57 From: Meliza Ramírez MD PCP: Dr. Sergei Henley MD Status: REG ER Location: ED HPI - General General Date of Admission: 06/14/23 Date of Service: 06/14/23 Chief Complaint: Abdominal pain HPI Narrative JOVANY MUÑIZ, is a 57-year-old male history of hypertension, coronary artery disease with stent placement 2 months ago who presented to [facility] 06/14/2023 with abdominal pain x1 day. Due [...] denied any withdrawal symptoms at that time. [facility] Medical History 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) Essential hypertension History of coronary artery disease HLD (hyperlipidemia) Old myocardial infarction Presence of stent in coronary artery (04/25/23) Home Medications aspirin 81 mg tablet,delayed release (Adult Low Dose Aspirin) 81 mg PO QDAY [facility] 08/06/17 [History Last Taken 10/30/21] buspirone [...] subcutaneous pen injector (Repatha SureClick) 140 mg [id number] #2 mL 06/13/23 [Rx Last Taken Unknown] [...] 83.8 H, Lymph % (Auto) 10.2 L, Irion % (Auto) 2.7, Eos % (Auto) 2.5, [...] Clarity Clear, Urine pH 7.0, Ur Specific [place] 1.010, Urine Protein Negative, Urine Glucose (UA) [...] diverticulitis without abscess or perforation. Electronically Signed: rKis White MD at 17:53 EDT , Assessment [...] documentation, 56minutes Charges/Coding Visit Charges Inpatient E&M: 65184 Init Hosp L2 06/14/231940 <Electronically signed by Meliza Ramírez MD> Cosigner Signature (if applicable): CC: Dr. Sergei Henley MD; Dr. Meliza Ramírez MD~ Signed [facility] Work Phone: 1(236) 349-175811-04-2023 Discharge summary Author Donta Swenson [facility] June 14, 2023 7:24pm Note Date/Time June 14, 2023 4 :52pm [facility] Medical Records Department [address] [place] [address] Emergency Department Summary 06/14/23 MR#: [id number] Acct: [id number] Name: JOVANY MUÑIZ Rep #:[id number] : 1965 57 From: Donta Swenson [...] statins. Few months ago he had an PR/stent placement, and was restarted on a statin. [...] yesterday and he is not passing gas. [facility] Medical History 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) Essential hypertension History of coronary artery disease HLD (hyperlipidemia) Old myocardial infarction Presence of stent in coronary artery (04/25/23) Home Medications aspirin 81 mg tablet,delayed release (Adult Low Dose Aspirin) 81 mg PO QDAY [facility] 08/06/17 [History Last Taken 10/30/21] buspirone [...] subcutaneous pen injector (Repatha SureClick) 140 mg iatpxvI1X #2 mL 06/13/23 [Rx Last Taken Unknown] [...] 83.8 H Lymph % (Auto) 10.2 L Irion % (Auto) 2.7 Eos % (Auto) 2.5 [...] Clarity Clear Urine pH 7.0 Ur Specific [place] 1.010 Urine Protein Negative Urine Glucose (UA) [...] pain, Sigmoid diverticulitis Disposition Disposition: Acute Care [facility] What to do if you have Problems For any increased pain, shortness of breath, bleeding, nausea or vomiting, chestpain, or any unexpected problems, contact your Primary Care Provider. Call [facility] ([phone]) or report to the closest Emergency Room. Call 911 if necessary. 06/14/231923 <Electronically signed by Donta Swenson MD> Cosigner Signature (if applicable): CC: Dr. Sergei Henley MD ~ Signed [facility] Work Phone: 1(757) 360-847411-04-2023 Discharge summary Author Donta [facility] June 14, 2023 7:24pm Note Date/Time June 14, 2023 4 :52pm [facility] Medical Records Department [address] [place] [address] Emergency Department Summary 06/14/23 MR#: [id number] Acct: [id number] Name: JOVANY MUÑIZ Rep #:[id number] : 1965 57 From: Donta Swenson [...] statins. Few months ago he had an PR/stent placement, and was restarted on a statin. [...] yesterday and he is not passing gas. [facility] Medical History 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) Essential hypertension History of coronary artery disease HLD (hyperlipidemia) Old myocardial infarction Presence of stent in coronary artery (04/25/23) Home Medications aspirin 81 mg tablet,delayed release (Adult Low Dose Aspirin) 81 mg PO QDAY [facility] 08/06/17 [History Last Taken 10/30/21] buspirone [...] subcutaneous pen injector (Repatha SureClick) 140 mg [id number] #2 mL 06/13/23 [Rx Last Taken Unknown] [...] 83.8 H Lymph % (Auto) 10.2 L Irion % (Auto) 2.7 Eos % (Auto) 2.5 [...] Clarity Clear Urine pH 7.0 Ur Specific [place] 1.010 Urine Protein Negative Urine Glucose (UA) [...] Sigmoid diverticulitis Disposition Disposition: Acute Care [facility] What to do if you have Problems For any increased pain, shortness of breath, bleeding, nausea or vomiting, chestpain, or any unexpected problems, contact your Primary Care Provider. Call [facility] ([phone]) or report to the closest Emergency Room. Call 911 if necessary. 06/14/231923 <Electronically signed by Donta Swenson MD> Cosigner Signature (if applicable): CC: Dr. Sergei Henley MD ~ Signed [facility] Work Phone: 1(989) 739-473309-15-2023 Discharge summary Author Rommel Youssef [facility] April 25, 2023 12:09pm Note Date/Time April 25, 2023 12:06pm [facility] Medical Records Department [address] [place] [address] Discharge Summary 04/25/23 1203 MR#: [id number] Acct: [id number] Name: JOVANY MUÑIZ Rep #:[id number] : 1965 57 From: Rommel Youssef DO PCP: Dr. Sergei Henley MD Status: ADM IN Location: [place] [address] Providers Date of Admission: 04/23/23 Primary Care Physician: Dr. Sergei Henley MD Consultations 04/24/23 02:23 Consult: Cardiology Routine Consulting Provider: Jose Lockwood Reason for Consult: non stemi EMERGENT Consult: No MD Notified: Yes Date Notified: 04/24/23 Time Notified: : Method of Notification: Text Method of Consult:: [...] Clear Calc 89.08, Est GFR (MDRD) Af [id number], Est GFR (MDRD) Non-Af 83, BUN/Creatinine Ratio [...] not ordered:: Drug Interaction Done w/ Acute PR measure.: Yes Documented LVEF (%): 60 Discharge [...] 90 Patient Comments: Referrals / Follow Up: [facility] [Provider Group] - Within 1 Month Sergei Henley MD [Primary Care Provider] - Within 2 Weeks Disposition Disposition (needs filled in before D/C Order can be placed): Home, Self Care Charges/Coding Visit Charges Inpatient E&M: 86415 Disch Hosp >30min 04/25/23 1209 <Electronically signed by Rommel Youssef DO> Cosigner Signature (if applicable): CC: Dr. Sergei Henley MD; Dr. Rommel Youssef DO~ Signed [facility] Work Phone: 1(296) 695-469009-15-2023 Progress note Author Rommel Youssef [facility] April 25, 2023 12:03pm Note Date/Time April 25, 2023 8:51am [facility] Medical Records Department [address] [place] [address] Progress Note - Hospitalist 04/25/23 0850 MR#: [id number] Acct: [id number] Name: JOVANY MUÑIZ Rep #:[id number] : 1965 57 From: Rommel Youssef DO PCP: Dr. Sergei Henley MD Status: ADM IN Location: [address] 1 Reason for Visit Reason for Visit: Diagnoses Hyperlipidemia, unspecified (04/23/23) Transient cerebral ischemic attack, unspecified (04/23/23) Essential (primary) hypertension (04/23/23) Non-ST elevation (NSTEMI) myocardial infarction (04/23/23) Atherosclerotic heart disease of elem coronary artery without angina pectoris (04/23/23) Chest [...] Clear Calc 89.08, Est GFR (MDRD) Af [id number], Est GFR (MDRD) Non-Af 83, BUN/Creatinine Ratio [...] Eduard Henley MD Performed By: Karely Sanchez, MARENCS, RVT Physical Exam Const alert and no [...] Cosigner Signature (if applicable): CC: ~ Signed [facility] Work Phone: 1([phone]) 193-803909-15-2023 Evaluation note* Diagnosis Onset Date Resolution Status Admit Date Essential hypertension chronic Se pt2024 8:12am HLD (hyperlipidemia) chronic Apr 8:12am Presence of coronary angioplasty implant and graft April 25, 2023 chronic April 122024 8:12am [facility] Work Phone: 1([phone]) 817-900709-15-2023 Progress note Author Jose Lockwood [facility] April 25, 2023 7:23am Note Date/Time April 25, 2023 7:23am [facility] Medical Records Department [address] [place] [address] Progress Note - Cardiology 04/25/2320 MR#: [id number] Acct: [id number] Name: JOVANY MUÑIZ Rep #:[id number] : 1965 57 From: Jose Lockwood MD PCP: Dr. Sergei Henley MD Status: ADM IN Location: [place] [address] Subjective Subjective Patient seen and evaluated appears to be doing well. No complaints. Objective Data Vital Signs: Vital Signs Temp Pulse Resp BP Pulse Ox O2 Del Method 97.1 F L 62 18 126/80 H 97 Room Air 04/25/23 04:12 04/25/23 04:12 04/25/23 04:12 04/25/23 04:12 04/25/23 04:04/25/23 04:12 Oxygen Delivery Method Room Air Weight: 213 lb 2.992 oz Body Mass Index (BMI) 28.9 Intake & Output: Intake and Output for Last 24 Hours 04/23/23 04/24/23 04/25/23 23:59 23:59 23:59 Intake Total 1233.50 / 1233.50 Balance 1233.50 / 1233.50 Lab / Micro Data 04/25/23 06:27 04/24/23 03:25 Labs: Laboratory Results - last 24 hr 04/24/23 07:02: Troponin I High Sens 63321 H* 04/24/23 10:33: Activated Clotting Time 197 [...] Orientation: awake and alert Coordination / Balance: isljcm-xz-sclh test normal and kytf-gj-rfpd test normal Speech: speech normal Psych affect [...] intensity statin. (2) Atherosclerotic heart disease of elem coronary artery without angina pectoris: QUALIFIERS: [place] vs. transplanted heart: elem heart QualifiedCode(s): I25.10 - Atherosclerotic heart disease of elem coronary artery without angina pectoris PLAN: He [...] Patient can be discharged for outpatient follow-up. 04/25/23 0723 <Electronically signed by Jose Lockwood MD> Cosigner Signature (if applicable): CC: ~ Signed [facility] Work Phone: 1([phone]) 894-204709-14-2023 Progress note Author Rommel Youssef [facility] April 24, 2023 2:53pm Note Date/Time April 24, 2023 8:27am [facility] Medical Records Department [address] [place] [address] Progress Note - Hospitalist 04/24/23 0820 MR#: [id number] Acct: [id number] Name: JOVANY MUÑIZ Rep #:[id number] : 1965 57 From: Rommel Youssef DO PCP: Dr. Sergei Hneley MD Status: ADM IN Location: [place] [address] Subjective Subjective Feels well. Some mild chest [...] % (Auto) 48.0, Lymph % (Auto) 32.1, Irion% (Auto) 12.1 H, Eos % (Auto) 6.3 [...] % (Auto) 64.2, Lymph % (Auto) 20.9, Irion% (Auto) 9.2, Eos % (Auto) 4.3, Baso [...] 106, Calcium 9.2, Troponin I High Sens 23951 H*, Triglycerides 258 H, Cholesterol 210 H, LDL Cholesterol 87, VLDL Cholesterol 52 H, HDL Cholesterol 71 04/24/23 07:02: Troponin I High Sens 20029 H* Radiography Diagnostic Testing: Radiology Impression Brain CT 04/23/23 21:34 IMPRESSION: Negative Brain CT without contrast. Electronically Signed: Kris White MD at 21:54 EDT , ADDENDUM: 09/13/23 2202 IMPRESSION: Negative Brain CT without contrast. N.B. : The above Results were Read Back by Kris White MD to Perez Dave DO, and understanding confirmed on 04/23/2023 21:55:56 (ET). Electronically Signed: Kris White MD at 21:54 EDT Reading Location ID and State: 994 / [employer] Tel , Service support , Head/Neck CTA 04/23/23 21:34 IMPRESSION: Normal CTA Head with contrast. Moderate (60%) carotid stenosis bilaterally. Patent vertebral arteries bilaterally. Electronically Signed: Kris White MD at 22:05 EDT Reading Location ID and State: 994 / [employer] Tel , Service support , ADDENDUM: 04/23/233 IMPRESSION: Normal CTA Head with contrast. Moderate (60%) carotid stenosis bilaterally. Patent vertebral arteries bilaterally. N.B. : The above Results were Read Back by Kris White MD to Perez Dave DO, and understanding confirmed on 04/23/2023 22:06:20 (ET). Electronically Signed: Kris White MD at 22:05 EDT Reading Location ID and State: 994 / [employer] Tel , Service support , Chest X-Ray 04/23/23 22:14 IMPRESSION: Normal x-ray examination of the chest. Electronically Signed: Kris White MD at 22:32 EDT Reading Location ID and State: 994 / [employer] Tel , Service support , Physical Exam [...] Orientation: awake and alert Coordination / Balance: trtzue-nu-vxrc test normal and zuvp-gp-xgwz test normal Speech: speech normal Psych affect [...] is anticoagulated. Charges/Coding Visit Charges Inpatient E&M: 36724 Subs Hosp L2 04/24/23 9152 <Electronically signed by Rommel Youssef DO> Cosigner Signature (if applicable): CC: ~ Signed [facility] Work Phone: [phone]) 883-461909-14-2023 History and physical note Author Ar oTrres [facility] April 24, 2023 10:35am Note Date/Time April 23, 2023 11:01pm [facility] Medical Records Department [address] [facility] [place] [address] H&P Exam - Hospitalist 04/23/23 2301 MR#: [id number] Acct: [id number] Name: JOVANY MUÑIZ Rep #:[id number] : 1965 57 From: Ar Torres MD PCP: Dr. Sergei Henley MD Status: ADM IN Location: [place] [id number] HPI - General General Date of [...] and patient was not acandidate of thrombolytics. [facility] Medical History Atherosclerotic heart disease of elem coronary artery without angina pectoris Essential hypertension [...] % (Auto) 48.0, Lymph % (Auto) 32.1, Irion% (Auto) 12.1 H, Eos % (Auto) 6.3 [...] Reading Location ID and State: 994 / [employer] Tel , Service support , ADDENDUM: 04/23/23 2213 IMPRESSION: Normal CTA Head with contrast. Moderate (60%) carotid stenosis bilaterally. Patent vertebral arteries bilaterally. N.B. : The above Results were Read Back by Kris White MD to Perez Dave DO, and understanding confirmed on 04/23/2023 22:06:20 (ET). Electronically Signed: Kris White MD at 22:05 EDT Reading Location ID and State: 994 / [employer] Tel , Service support , Chest X-Ray 04/23/23 22:14 IMPRESSION: Normal x-ray examination of the chest. Electronically Signed: Kris White MD at 22:32 EDT Reading Location ID and State: 994 / [employer] Tel , Service support , Assessment & [...] EKG tracing did not show ST elevation PR. ASA 81 mg p.o. daily; and Plavix [...] documentation, 70minutes. Charges/Coding Visit Charges Inpatient E&M: 25358 Init Hosp L3 04/24/23 1035 <Electronically signed by Ar Torres MD> Cosigner Signature (if applicable): CC: Dr. Sergei Henley MD; Dr. Ar Torres MD~ Signed [facility] Work Phone: [phone]) 787-456309-14-2023 Consult note Author Jose Lockwood [facility] April 24, 2023 10:00am Note Date/Time April 24, 2023 7:34am [facility] Medical Records Department [address] [place] [address] Consultation - Cardiology 04/24/2326 MR#: [id number] Acct: [id number] Name: JOVANY MUÑIZ Rep #:[id number] : 1965 57 From: Jose Lockwood MD PCP: Dr. Sergei Henley MD Status: ADM IN Location: [place] [address] Assessment & Plan Assessment/Plan (1) NSTEMI (non-ST [...] intensity statin. (2) Atherosclerotic heart disease of elem coronary artery without angina pectoris: QUALIFIERS: [place] vs. transplanted heart: elem heart QualifiedCode(s): I25.10 - Atherosclerotic heart disease of elem coronary artery without angina pectoris PLAN: He [...] was called for further evaluation and management. [facility] Medical History (Updated 04/24/23 @ 07:[address] Jose Lockwood MD) Atherosclerotic heart disease of elem coronary artery without angina pectoris Essential hypertension [...] 03:37 04/24/23 03:37 04/24/23 03:37 04/24/23 03:37 09/14/23 03:37 Oxygen Delivery Method Room Air Weight: [...] % (Auto) 48.0, Lymph % (Auto) 32.1, Irion% (Auto) 12.1 H, Eos % (Auto) 6.3 [...] % (Auto) 64.2, Lymph % (Auto) 20.9, Irion% (Auto) 9.2, Eos % (Auto) 4.3, Baso [...] 106, Calcium 9.2, Troponin I High Sens 62139 H*, Triglycerides 258 H, Cholesterol 210 H, LDL Cholesterol 87, VLDL Cholesterol 52 H, HDL Cholesterol 71 Cardiology Labs/Tests 04/23/23 21:30: WBC 5.3, RBC 4.28 L, Hgb 14.0, Hct 42.3, MCV 98.8 H, MCH 32.7 H,MCHC 33.1, Plt Count 226, MPV 9.5, Immature Gran % (Auto) 0.400, Neut % (Auto) 48.0, Lymph % (Auto) 32.1, Irion % (Auto) 12.1 H, Eos % (Auto) [...] % (Auto) 64.2, Lymph % (Auto) 20.9, Irion % (Auto) 9.2, Eos % (Auto) 4.3, [...] Reading Location ID and State: 994 / [employer] Tel , Service support , ADDENDUM: 04/23/232201 IMPRESSION: Negative Brain CT without contrast. N.B. : The above Results were Read Back by Kris White MD to Perez Dave DO, and understanding confirmed on 04/23/2023 21:55:56 (ET). Electronically Signed: Kris White MD at 21:54 EDT Reading Location ID and State: 994 / [employer] Tel , Service support , Head/Neck CTA 04/23/23 21:34 IMPRESSION: Normal CTA Head with contrast. Moderate (60%) carotid stenosis bilaterally. Patent vertebral arteries bilaterally. Electronically Signed: Kris White MD at 22:05 EDT Reading Location ID and State: 994 / [employer] Tel , Service support , ADDENDUM: 04/23/23 [...] Lockwood MD; Dr. Ar Torres MD~ Signed [facility] Work Phone: 1([phone]) 705-562209-14-2023 Discharge summary Author [facility] April 24, 2023 12:00am Note Date/Time April 23, 2023 9:39pm [facility] Medical Records Department [address] [place] [address] Emergency Department Summary 04/23/23 MR#: [id number] Acct: [id number] Name: JOVANY MUÑIZ Rep #:[id number] : 1965 57 From: Perez Dave DO PCP: Dr. Sergei Henley MD Status: ADM IN Location: [place] [address] HPI History of Present Illness Chief Complaint: [...] in his chest. Slight shortness of breath. [facility] Medical History Atherosclerotic heart disease of elem coronary artery without angina pectoris Essential hypertension [...] I did evaluate the transmitted EKG from [facility] which showed bradycardia without signs of ST elevation PR. Will obtain EKG uponarrival back to the room as well as basic labs and troponin. Patient will be evaluated by stroke neurologist via robot from [facility]. Patient was evaluated by [facility] neurology. When he arrived back from CT [...] of [address] elevation PR noted although the computerthought there was ST elevation PR. CT scan of the brain without contrast [...] % (Auto) 48.0 Lymph % (Auto) 32.1 Irion % (Auto) 12.1 H Eos % (Auto) [...] White MD at 22:05 EDT , ADDENDUM: 04/23/233 IMPRESSION: Normal CTA Head [...] rate of [address] elevation PR noted. Hehad some nonspecific ST changes. Prior EKG tracings: available for review Prior: Unchanged Discharge Plan Dx/Rx/DC Orders Clinical Impression: Brain TIA, History of coronary artery disease, Chest pain Disposition Disposition: Acute Care [facility] Discharge Date/Time: 04/23/23 23:43 What to do if you have Problems For any increased pain, shortness of breath, bleeding, nausea or vomiting, chestpain, or any unexpected problems, contact your Primary Care Provider. Call [facility] ([phone]) or report to the closest Emergency Room. Call 911 if necessary. 04/24/23 0000 <Electronically signed by Perez Dave DO> Cosigner Signature (if applicable): CC: Dr. Sergei Henley MD ~ Signed [facility] Work Phone: 1(755) 296-644611-01-2010 Evaluation note* Diagnosis Onset Date Resolution Status Atherosclerotic heart diseas e of elem coronary artery without angina pectoris chronic Essential hypertension chron ic HLD (hyperlipidemia) chronic Presence of stent in coronary artery June, chronic [facility] Work Phone: [phone]) 695-947011-01-2010 Evaluation note* Diagnosis Onset Date Resolution Status Atherosclerotic heart diseas e of elem coronary artery without angina pectoris chronic Essential hypertension chron ic HLD (hyperlipidemia) chronic Presence of stent in coronary artery June, chronic Chest pain, atypical acute [facility] Work Phone: Discharge summary Author Rommel Youssef [facility] June 15, 2023 10:31am Note Date/Time June 15, 2023 1 0:26am [facility] Medical Records Department [address] [place] [id number] Discharge Summary 06/15/23 [facility] MR#: [id number] Acct: [id number] Name: JOVANY MUÑIZ Rep #:[id number] : 1965 57 From: Rommel Youssef DO PCP: Dr. Sergei Henley MD Status: ADM FELICITA Location: [address] Providers Date of Admission: 06/14/23 Primary Care [...] Dose Aspirin) 81 mg PO QDAY [facility] 08/06/17 buspirone 5 mg tablet 5 [...] subcutaneous pen injector (Repatha SureClick) 140 mg [id number] #2 mL 06/13/23 nitroglycerin 0.4 mg sublingual [...] 83.8 H, Lymph % (Auto) 10.2 L, [place] % (Auto) 2.7, Eos % (Auto) 2.5, [...] Clarity Clear, Urine pH 7.0, Ur Specific [place] 1.010, Urine Protein Negative, Urine Glucose (UA) [...] (Auto) 81.6 H, Lymph % (Auto)10.5 L, [place] % (Auto) 4.6, Eos % (Auto) 2.6, [...] Discharge Diet: Low fat / Low cholesterol (Champion diet, advance as tolerated.) Meaningful Use Info [...] months would recommend following up with a cloth shrinking machine operator helper. Discharge Orders/Prescriptions Prescriptions: New amoxicillin-pot clavulanate 875-125 [...] Qty: 25 3RF Referrals / Follow Up: [facility] [Provider Group] - Within 3 Months Sergei Henley MD [Primary Care Provider] - Within 2 Weeks Disposition Disposition (needs filled in before D/C Order can be placed): Home, Self Care Charges/Coding Visit Charges Inpatient E&M: 29144 Disch Hosp >30min 06/15/23 1031 <Electronically signed by Rommel Youssef DO> Cosigner Signature (if applicable): CC: Dr. Sergei Henley MD; Dr. Rommel Youssef, DO~ Signed [facility] Work Phone: Evaluation noteNo assessment information available [facility] Work Phone: Evaluation note* Diagnosis Onset Date Resolution Status Brain TIA acute Chest pain acute History of coronary artery disease acute [facility] Work Phone: Evaluation note* Diagnosis Onset Date Resolution Status Brain TIA acute Chest pain acute History of coronary artery disease acute NSTEMI (non-ST elevated myocardial infarction) acute Atherosclerotic heart diseas e of elem coronary artery without angina pectoris chronic Essential hypertension chron ic HLD (hyperlipidemia) [facility] Work Phone: Evaluation note* Diagnosis Onset Date Resolution Status Essential hypertension chron ic HLD (hyperlipidemia) chronic Brain TIA resolved Chest pain resolved NSTEMI (non-ST elevated myoc ardial infarction) resolved Essential hypertension chron ic HLD (hyperlipidemia) chronic Presence of stent in coronary artery April 25, 023 chronic [facility] Work Phone: Evaluation note* Diagnosis [...] in coronary artery April 25, 023 chronic [facility] Work Phone: Evaluation note* Diagnosis Onset Date Resolution Status HLD (hyperlipidemia) chronic Brain TIA resolved Chest pain resolved NSTEMI (non-ST elevated myocardial infarction) resolved HLD (hyperlipidemia) chronic Sigmoid diverticulitis acute Intractable abdominal pain r esolved [facility] Work Phone: Evaluation note* Diagnosis Onset Date Resolution Status Essential hypertension chron ic HLD (hyperlipidemia) chronic Sigmoid diverticulitis acute Essential hypertension chron ic Intractable abdominal pain r esolved GERD (gastroesophageal reflux disease) acute Sigmoid diverticulitis acute Myalgia acute Palpitation acute HLD (hyperlipidemia) chronic Presence of coronary angiopl asty implant and graft April 25, 2023 [facility] Work Phone: Evaluation note* Diagnosis Onset Date Resolution Status Sigmoid diverticulitis acute Essential hypertension chron ic Intractable abdominal pain r esolved GERD (gastroesophageal reflux disease) acute Sigmoid diverticulitis acute Myalgia acute Palpitation acute HLD (hyperlipidemia) chronic Presence of coronary angiopl asty implant and graft April 25, 2023 chronic [facility] Work Phone: History and physical note Author Meliza Ramírez [facility] June 14, 2023 7:41pm Note Date/Time June 14, 2023 7 :41pm [facility] Medical Records Department [address] [place] [address] H&P Exam - Hospitalist 06/14/231930 MR#: [id number] Acct: [id number] Name: JOVANY MUÑIZ Rep #:[id number] : 1965 57 From: Meliza Ramírez MD PCP: Dr. Sergei Henley MD Status: REG ER Location: ED HPI - General General Date of Admission: 06/14/23 Date of Service: 06/14/23 Chief Complaint: Abdominal pain HPI Narrative JOVANY MUÑIZ, is a 57-year-old male history of hypertension, coronary artery disease with stent placement 2 months ago who presented to [facility] 06/14/2023 with abdominal pain x1 day. Due [...] denied any withdrawal symptoms at that time. [facility] Medical History 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) Essential hypertension History of coronary artery disease HLD (hyperlipidemia) Old myocardial infarction Presence of stent in coronary artery (04/25/23) Home Medications aspirin 81 mg tablet,delayed release (Adult Low Dose Aspirin) 81 mg PO QDAY [facility] 08/06/17 [History Last Taken 10/30/21] buspirone [...] subcutaneous pen injector (Repatha SureClick) 140 mg [id number] #2 mL 06/13/23 [Rx Last Taken Unknown] [...] 83.8 H, Lymph % (Auto) 10.2 L, [place] % (Auto) 2.7, Eos % (Auto) 2.5, [...] Clarity Clear, Urine pH 7.0, Ur Specific [place] 1.010, Urine Protein Negative, Urine Glucose (UA) [...] documentation, 56minutes Charges/Coding Visit Charges Inpatient E&M: 22491 Init Hosp L2 06/14/231940 <Electronically signed by Meliza Ramírez MD> Cosigner Signature (if applicable): CC: Dr. Sergei Henley MD; Dr. Meliza Ramírez MD~ Signed [facility] Work Phone: History and physical note Author Olegario Segal [facility] October 02, 2023 7:28am Note Date/Time October 02, 2023 7:28am [facility] Medical Records Department [address] [place] [address] History & Physical Exam 10/02/23 0725 MR#: [id number] Acct: [id number] Name: JOVANY MUÑIZ Rep #:[id number] : 1965 58 From: Olegario Blackburn PCP: Dr. Seregi Henley MD Status: REG [facility] Location: [place] [address] History and Physical Date of Admission: 10/02/23 Date of Service: 07/17/23 MR#: [id number] Acct: [id number] Name: JOVANY MUÑIZ Rep #: [id number] : 1965 Provider: Dr. 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 Olegario Segal MD) 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) Essential [...] supplement after he was convinced by an inflow Kevin to trial this medication. He also [...] that he will need to have a medical driver with him the day of the [...] Henley MD; Dr. Olegario Segal MD~ Signed [facility] Work Phone: Hospital Discharge instructions Additional Instructions All your labs, EKG, chest x-ray were unremarkable. Follow-up with your doctor. Return if you are feeling worse. Nothing bad we can find today.[facility] Work Phone: Hospital Discharge instructions Additional Instructions Benadryl as needed for itching. Avoid shrimp or shellfish seems that you have an allergy to it. Follow-up with your doctor as needed.[facility] Work Phone: Progress note Author Mitchell Dubois [facility] Note Date/Time May 05, 2025 9:39am [facility] [address] [place] [address] OFFICE VISIT Date of Service: 05/05/25 MR#: [id number] Acct: [id number] Name: JOVANY MUÑIZ Rep #: [id number] : 1965 Provider: EUGENIA Dubois Age/Sex: 59/M Location: [facility] Status: Signed HPI HPI History of Present Illness Details: This is a 59-year-old white male who presents today for outpatient cardiovascular follow-up regarding a history of underlying CAD, PCI, hyperlipidemia, and hypertension. He was noted to have inferior myocardial infarction with stenting to his obtuse marginal, proximal to mid circumflex, proximal to mid LAD in 2009. He presented [facility] on 04/23/2023 for assurance regarding stroke and chest pain. He was sent to CT scanner to rule out CVA. By the time he returned from CT scanner, his symptoms of stroke had resolved. On account of non-ST elevated myocardial infarction, heunderwent a heart catheterization on 04/24/2023 that showed high-grade stenosis in the mid LAD immediately post stent and subtotally occluded ramus intermedius. Ejection fraction was 60%. He proceeded with drug-eluting stent to mid LAD andproximal OM1. He denies chest, arm, jaw, or neck discomfort. He acknowledges bilateral lowerextremity edema. He denies claudication. He denies shortness of breath with activity, shortness of breath at rest, orthopnea, or PND. He denies chronic cough. He denies significant, sudden weight gain. He states dizziness, and near-syncope. He denies syncope. He denies blood in urine, blood in stool, or epistaxis. He denies fever with chills. He denies myalgia. He denies fatigue.He states weakness and night sweats. His exercise level has remained stable. 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: No Accompanied by: Is patient in pain?: No Allergies shrimp Allergy (Severe, Verified 05/05/25 08:30) Anaphylaxis scallops Allergy (Verified 05/05/25 08:30) Anaphylaxis Medications ?Medication ?Instructions ?Recorded ?Confirmed ?Type aspirin 81 mg tablet,delayed 81 mg PO QDAY [facility] 08/06/17 05/05/25 History release (Adult Low Dose Aspirin) cetirizine 10 mg tablet 10 mg PO DAILY PRN allergy s ymptoms 05/20/23 05/05/25 History nitroglycerin 0.4 mg sublingual 0.4 mg sublingual Q5-1 5M PRN CHEST 06/13/23 05/05/25 Rx tablet (Nitrostat) PAIN #25 tabs acetaminophen 500 mg capsule 1,000 mg (2 x 500 mg) PO Q8H PRN 06/15/23 05/05/25 Rx PRN fever or pain #30 caps clopidogrel 75 mg tablet (Plavix) 75 mg PO QDAY #90 ta bs 07/20/24 05/05/25 Rx losartan 50 mg tablet 100 mg PO DAILY 08/06/24 History pantoprazole 40 mg tablet,delayed 20 mg PO DAILY 08/0605/05/25 History release pitavastatin calcium 1 mg tablet 0.5 mg PO QDAY 05/05/25 History Ejection fraction %: 60 PFSH Medical History Wears partial dentures High cholesterol Heartburn Gastric reflux History of diverticulitis Former smoker History of heart attack History of echocardiogram History of stress test Hypertension Cardiology follow-up encounter Sigmoid diverticulitis History of coronary artery disease Presence of stent in coronary artery (04/25/23) Essential hypertension HLD (hyperlipidemia) Old myocardial infarction 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) Surgical History History of coronary artery stent placement History of cardiac catheterization Presence of coronary angioplasty implant and graft (04/25/23) History of left heart catheterization (~12/2010) Family History Grandfather , age 76 CVA [...] weakness, headache(s), daytime sleepiness or difficulty sleeping Eyes Eyes: Negative for blind spots, loss of peripheral vision or transient loss of vision ENT ENT: Negative for headache(s), dizziness, tinnitus, Nosebleed/epistaxis or balance problems Cardio Chest Pain: No Palpitations: No Edema: None Muscle aches with walking: Bilateral (Attributes to statins) Resp Respiratory: Negative for SOB with activity, SOB at rest, SOB orthopnea\SOB lying down or Cough GI GI: Negative nausea, vomiting, heartburn, vomiting blood/hematemesis, bright, red blood in stools or black,tarry stools : Negative for hematuria or frequent nighttime urination/ nocturia Musc Musc: Positive for muscle aches/ myalgia (BLE. Attributes to statins. ); Negative for joint pain or balance problems Skin Skin: Negative non-healing lesions, rash or wounds Neuro Neuro: Negative for dizziness, lightheadedness, near syncope, headache(s) or weakness Anthony Hematologic/Lymphatic: Positive for easy bleeding and easy bruising Endo Endo: Negative for fatigue Allergy Allergy/Immunology: Negative for rash Cardiology Exam Const Appearance: cooperative, healthy appearing, comfortable and no acute distress Nutritional Appearance: well nourished and overweight Orientation: alert, awake and oriented x3 Head Head: normal to inspection Ears: hearing grossly normal bilaterally Nose: external nose normal Face and Sinus: face symmetric Mouth: moist mucous membranes Eyes General: appearance normal, both eyes and all related structures Eyelids: eyelids normal EOM: EOM intact bilaterally Neck Neck: normal visual inspection and no JVD Carotids: normal carotid upstroke Chest Chest inspection: normal inspection of the chest, symmetric chest movement and normal respiratory effort; Negative cough Auscultation: Bilateral: Clear to Auscultation Cardio Rate: regular rate Rhythm: regular rhythm Heart sounds: S1 normal and S2 normal; Negative rub, gallop or murmur GI GI: normal to inspection Neuro General: patient alert, patient awake, patient oriented x3 and CN's II-XI intactbilaterally Skin Skin: no rashes or lesions noted Extremities Pulses: Normal: Right Posterior Tibial Pulse, Left Posterior Tibial Pulse, RightRadial Pulse and Left Radial Pulse Lower Extremity Edema: None: Bilateral Psych Psychological: normal affect Supplemental Info Supplemental Information Echocardiogram from 04/24/2023: Interpretation Summary Normal LV size. Left ventricular systolic function is normal. The estimated ejection fraction is 60 %. Stage 1 diastolic dysfunction. Stress Test Report Date: 11/04/2024 Procedure: Pharmacologic stress nuclear imaging study Indications: Dyspnea on exertion Consent: Per the patient Procedure: The patient underwent pharmacologic (Regadenoson 0.4mg ) evaluation with a peak heart rate of 91 beats per minute (61%predicted maximal heart rate) and a peak blood pressure of 120/72 mmHg. The baseline ECG demonstrated sinus rhythm. The peak pharmacologic ECG no ischemic changes. There were no cardiac dysrhythmias pretest, during pharmacologic infusion, or recovery. There was no complaint of chest discomfort during pharmacologic infusion or recovery. The patient was injected with 11.9 millicuries of technetium 99m Cardiolite and subsequently rest SPECT Cardiolite nuclear imaging was obtained in the horizontal long, vertical long, and short axis views. The patient underwent pharmacologic (Regadenoson) evaluation. The patient was injected with 34.5 millicuries of technetium 99m Cardiolite and subsequently stress SPECT Cardiolite nuclear imaging was obtained in the horizontal long, vertical long, and short axis views. A gated Cardiolite study at peak stress was obtained. The examination was stopped secondary to completion of protocol. Rest and stress SPECT Cardiolite nuclear imaging status post realignment, normalization, and attenuation correction demonstrate no fixed or reversible perfusion defects. There is end systolic thickening and brightening. The gatedCardiolite study demonstrates myocardial thickening and inward wall motion. Thereported LVEF is 88%. Impression: 1. Pharmacologic (Regadenoson) evaluation 2. Peak pharmacologic ECG with no ischemic changes. 3. There were no cardiac dysrhythmias pretest, during pharmacologic infusion, or recovery. 5. Rest and stress SPECT Cardiolite nuclear imaging demonstrate relative uniform tracer uptake and myocardial perfusion appearing within normal limits. 6. The gated Cardiolite study reports an LVEF of 88%. Stress Test Report 10-31-2021 Impression: 1.? Rest and stress SPECT Cardiolite nuclear imaging demonstrate relative uniform tracer uptake and myocardial perfusion appearing within normal limits. 2.? The gated Cardiolite study reports an LVEF of 68%. Heart Catheterization from 04/24/2023: CONCLUSIONS High-grade stenosis noted in the mid LAD immediately post stent and is subtotally occluded ramus intermedius RECOMMENDATIONS Referred for immediate PCI CORONARY ANGIOGRAPHY DOMINANCE: Co- Dominant LEFT HEART ASSESSMENT Left Ventricular Ejection Fraction: by LV Gram 60 % Normal LV wall motion Normal Left Ventricular systolic function LEFT MAIN: Angiographically normal LEFT ANTERIOR DESCENDING ARTERY: Previously stented vessel is noted to be patent with the distal portion having a high-grade 95% stenotic lesion noted. The first diagonal vessel has mild disease CIRCUMFLEX ARTERY: Mild luminal irregularities RAMUS: Subtotally occluded RIGHT CORONARY ARTERY: Mild luminal irregularities Labs: LDL Cholesterol, (0-130) 144 mg/dL H HDL Cholesterol, (40-) 89 mg/dL Cholesterol, (<=200) 251 mg/dL H Triglycerides, (-199) 156 mg/dL Diagnostics: Electrocardiogram Echocardiogram Stress Test Stress Test Nuclear Medicine Cardiac Catheterization Chest X-Ray Chest CTA Abdomen/Pelvis CT Past Visits: Cardiology Visit Today Assessment and Plan Assessment and Plan (1) Presence of coronary angioplasty implant and graft: Status: Chronic Comment: PTCA with CONNIE to proximal 1st obtuse marginal artery & proximal to mid LCX 05/20, mid LAD 06/20 CONNIE to mid LAD and proximal OM1 04/25/2023 Plan: He has a history of stenting in 2009 as well as April 2023. This appears stable. We will continue to monitor and not make any medication regimen changes. We will continue to promote risk factor and lifestyle modification. (2) HLD (hyperlipidemia): Status: Chronic Qualifiers: Hyperlipidemia type: unspecified Qualified Code(s): E78.5 - Hyperlipidemia, unspecified Plan: Lipid panel from 01/27/2025 showed Total Cholesterol: 251, HDL: 89, LDL: 131, and Triglycerides: 156. He has been tolerant to statin and Repatha. We discussed nonstatin therapy options such as Leqvio. Information was given to him today. He will review this and contact our office if he wishes to proceed. (3) Essential hypertension: Status: Chronic Plan: His blood pressure is elevated in office today. We discussed the importance of blood pressure control. He states at home he monitors it regularly and it is better controlled. For now, we will continue current medical therapy and continue to monitor. Medications: Changed From pitavastatin calcium 1 mg PO QDAY To pitavastatin calcium 0.5 mg PO QDAY Plan Details Additional Comments: Thank you for allowing us to participate in the patients plan of care, if you have any questions please do not hesitate to call. Plan was reviewed with patient/family member along with red flag symptoms. Understanding was acknowledged. Questions were answered to apparent satisfaction. This note was generated using a voice recognition system and there may be incorrect words, spelling or punctuation that were not noted when reviewing the office note prior to saving. Portions of this documentation were copied and pasted from previous office visitnotes to provide a cohesive continuity of the history. The note has been reviewed, edited, and updated, as necessary. 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) Coding Level of Care Code Off vis,est,level 4 Diagnoses Presence of coronary angioplasty implant and graft Z95.5 Hyperlipidemia, unspecified hyperlipidemia type E78.5 Hyperlipidemia type: unspecified Essential hypertension I10 Coding Level of Care Code Off vis,est,level 4 Diagnoses Presence of coronary angioplasty implant and graft Z95.5 Hyperlipidemia, unspecified hyperlipidemia type E78.5 Hyperlipidemia type: unspecified Essential hypertension I10 Clinical Quality Measures Cardiac Ejection fraction %: 60 05/05/25 1011 <Electronically signed by Mitchell BELLO> Date _ Mitchell Dubois NP, NP-C Cosigner Signature: Date (if applicable) CC: ~ [facility] Work Phone: Reason for referral (narrative)No reason for referral information availableWBlanchard [facility] Work Phone: Chief Complaint and Reason for Visit Chief Complaint 1 y fu CHEST PAIN Reason for Visit Atherosclerotic hear t disease of elem coronary artery without angina pectoris Essential hypertension HLD (hyperlipidemia) Presence of stent in coronary artery Chief Complaint 1 y fu CHEST PAIN CHEST PAIN CHEST PAIN Reason for Visit Atherosclerotic hear t disease of elem coronary artery without angina pectoris Essential hypertension [...] elevated myocardial infarction) Atherosclerotic heart disease of elem coronary artery without angina pectoris Essential hypertension HLD (hyperlipidemia) Chief Complaint CHEST PAIN, TIA CHEST PAIN, TIA CHEST PAIN, TIA CHEST PAIN, TIA CHEST PAIN, TIA S/P [facility] 15 Reason for Visit Essential hypertensi on HLD (hyperlipidemia) Brain TIA Chest pain NSTEMI (non-ST elevated myocardial infarction) Essential hypertension HLD (hyperlipidemia) Presence of stent in coronary artery Chief Complaint CHEST PAIN, TIA CHEST PAIN, TIA CHEST PAIN, TIA CHEST PAIN, TIA CHEST PAIN, TIA S/P [facility] 15 DIVERTICULITIS Reason for Visit Essential hypertensi on HLD (hyperlipidemia) Brain TIA Chest pain NSTEMI (non-ST elevated myocardial infarction) Essential hypertension HLD (hyperlipidemia) Presence of stent in coronary artery Intractable abdominal pain Sigmoid diverticulitis Essential hypertension Presence of stent in coronary artery Chief Complaint CHEST PAIN, TIA CHEST PAIN, TIA CHEST PAIN, TIA CHEST PAIN, TIA CHEST PAIN, TIA S/P [facility] 15 DIVERTICULITIS DIVERTICULITIS Reason for Visit Essential hypertensi on HLD (hyperlipidemia) Brain TIA Chest pain NSTEMI (non-ST elevated myocardial infarction) Essential hypertension HLD (hyperlipidemia) Presence of stent in coronary artery Intractable abdominal pain Sigmoid diverticulitis Essential hypertension Presence of stent in coronary artery Chief Complaint CHEST PAIN, TIA CHEST PAIN, TIA CHEST PAIN, TIA CHEST PAIN, TIA CHEST PAIN, TIA S/P [facility] 15 DIVERTICULITIS DIVERTICULITIS EORDER Reason for Visit HLD (hyperlipidemia) Brain TIA Chest pain NSTEMI (non-ST elevated myocardial infarction) HLD (hyperlipidemia) Sigmoid diverticulitis Intractable abdominal pain Chief Complaint S/P [facility] 0915 DIVERTICULITIS DIVERTICULITIS EORDER DIVERTICULITIS 3 M FU [...] of 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) November 09, 2024 5:56am Chief Complaint Admit Date PALP November 03, 2024 6:1 2am PALP November 03, 2024 6:0 5pm DOT PHYSICAL/SELF PAY (already paid on ) November 09, 2024 5:56am chest pain January 22, 2025 1:46 pm anaphylaxis January 22, 2025 8:28 pm Chief Complaint Admit Date chest pain January 22, 2025 1:46 pm anaphylaxis January 22, 2025 8:28 pm 9 M FU May 05, 2025 8:12am Reason for Visit Admit Date Essential hypertension May 05, 2 025 8:12am HLD (hyperlipidemia) May 05 8:12am Presence of coronary angioplasty implant and graft May 05, 2025 8:12am Advance Directives Advance Directive Response Recorded Date/ Time Living Will No October 30, 2021 7:09pm Power of Stenographic Court Reporter No October 30 7:09pm Advance Directive Response Recorded Date/ Time Living Will Yes April 23, 2023 9:57pm Power of Stenographic Court Reporter Yes April 9:57pm Name of Medical Power of Stenographic Court Reporter Jesus Muñiz April 23, 2023 9:57pm Advance Directive Response Recorded Date/ Time Name of Medical Power of Stenographic Court Reporter Ellie Muñiz April 24, 2023 12:15am Living Will Yes April 24, 2023 12:15am Power of Stenographic Court Reporter Yes April 12:15am Advance Directive Response Recorded Date/ Time Living Will No June 14 5:16pm Power of Stenographic Court Reporter No June 14, 2023 5:16pm Name of Medical Power of Stenographic Court Reporter Ellie Muñiz April 24, 2023 12:15am Advance Directive Response Recorded Date/ Time Name of Medical Power of Stenographic Court Reporter Ellie Muñiz June 14, 2023 8:15pm Living Will Yes June 14 8:15pm Power of Stenographic Court Reporter Yes June 14, 2023 8:15pm Name of Medical Power of Stenographic Court Reporter Ellie Muñiz April 23, 2023 11:15pm Advance Directive Response Recorded Date/ Time Name of Medical Power of Stenographic Court Reporter Ellie Muñiz June 14, 2023 8:15pm Living Will Yes June 14 8:15pm Power of Stenographic Court Reporter Yes June 14, 2023 8:15pm Advance Directive Response Recorded Date/ Time Name of Medical Power of Stenographic Court Reporter Ellie Muñiz June 14, 2023 8:15pm Name of Medical Power of Stenographic Court Reporter September 25, 2023 3:03pm Living Will Yes September 25, 024 3:03pm Power of Stenographic Court Reporter Yes September 25, 2023 3:03pm Advance Directive Response Recorded Date/ Time Living Will Yes April 24, 2023 12:15am Do you have a Healthcare Pow er of Stenographic Court Reporter? Yes April 24, 2023 12:15am Living Will Yes September 03 1:26am Do you have a Healthcare Pow er of Stenographic Court Reporter? Yes September 03, 2024 1:26am Name of Medical Power of Stenographic Court Reporter ELLIE MUÑIZ September 03, 2024 1:26am Advance Directive Response Recorded Date/ Time Do you have a Healthcare Power of Stenographic Court Reporter? Yes January 22, 2025 2:10pm Name of Medical Power of Stenographic Court Reporter Ellie Muñiz January 22, 2025 2:10pm Advance Directive Response Recorded Date/ Time Do you have a Healthcare Power of Stenographic Court Reporter? Yes January 22, 2025 9:41pm Do you have a Healthcare Power of Stenographic Court Reporter? Yes January 22, 2025 2:10pm Name of Medical Power of Stenographic Court Reporter Ellie Muñiz January 22, 2025 2:10pm Summary [...] Care Provider Activ e Dr. Perez Dave , DO Emergency Provider Active Dr. Ar Torres MD Admit Provider, Attending Pro vider Active Team Status: Active Member Role Status Dates Dr. Sergei Henley MD Primary Care Provider Activ e Dr. Jose Lockwood MD Attending Provider Active Team Status: Active Member Role Status Dates Dr. Sergei Henley MD Primary Care Provider Activ e Dr. Perez Dave , DO Emergency Provider Active Dr. Ar Torres MD Admit Provider, Attending Provider, Other Provider Active Dr. Jose Lockwood MD Other Provider Active Dr. Rommel Youssef , Other Provider Active Team Status: Active Member Role Status Dates Dr. Sergei Henley MD Primary Care Provider Activ e Dr. Perez Dave , DO Emergency Provider Active Dr. Ar Torres [...] Provider, Refe rring Provider Active Mitchell Dubois STATOR WINDER, STATOR WINDER-C Attending Provider Active Team Status: Inactive Member [...] Primary Care Provider Activ e Mitchell Dubois STATOR WINDER, STATOR WINDER-C Attending Provider, Referring Pro vider Active Team [...] Olegario Segal MD Attending Provider, Referring P nikhil Active Team Status: Active Member Role Status [...] 2024 End: November 03, 2024 Mitchell Dubois STATOR WINDER, STATOR WINDER-C Attending Provider Active S tart: November 03, 2024 End: November 03, 2024 Mitchell Dubois STATOR WINDER, STATOR WINDER-C Referring Provider Active S tart: November 03, 2024 End: November 03, 2024 Team Status: Active Member Role Status Dates Dr. Eduard Henley MD Primary Care Provider Acti ve Start: November 03, 2024 Mitchell Dubois STATOR WINDER, STATOR WINDER-C Referring Provider Active S tart: November 03, 2024 Mitchell Dubois STATOR WINDER, STATOR WINDER-C Other Provider Active Start : November 03, [...] January 22, 2025 End: January 22, 2025 Team Status: Inactive Member Role Status Dates Dr. Eduard Henley MD Primary Care Provider Acti ve Start: January 22, 2025 End: January 22, 2025 Dr. Robert Mercer MD Attending Provider Active S tart: January 22, 2025 End: January 22, 2025 Dr. Robert Mercer MD Emergency Provider Active S tart: January 22, 2025 End: January 22, 2025 Team Status: Inactive Member Role Status Dates Dr. Eduard Henley MD Primary Care Provider Acti ve Start: January 27, 2025 End: January 27, 2025 Dr. Eduard Henley MD Attending Provider Active Start: January 27, 2025 End: January 27, 2025 Dr. Eduard Henley MD Referring Provider Active Start: January 27, 2025 End: January 27, 2025 Team Status: Active Member Role/Relationship Status Dates Dr. Eduard Henley MD Primary care physician Act ximena Team Status: Inactive Member Role/Relationship Status Dates Dr. Eduard Henley MD Primary care physician Act ximena Start: January 22, 2025 End: January 22, 2025 Dr. Robert Mercer MD Attending physician Active Start: January 22, 2025 End: January 22, 2025 Dr. Robert Mercer MD Emergency Departmen t Physician Active Start: January 22, 2025 End: January 22, 2025 Team Status: Inactive Member Role/Relationship Status Dates Dr. Eduard Henley MD Primary care physician Act ximena Start: January 22, 2025 End: January 22, 2025 Dr. Robert Mercer MD Attending physician Active Start: January 22, 2025 End: January 22, 2025 Dr. Robert Mercer MD Emergency Departmen t Physician Active Start: January 22, 2025 End: January 22, 2025 Team Status: Inactive Member Role/Relationship Status Dates Dr. Eduard Henley MD Primary care physician Act ximena Start: January 27, 2025 End: January 27, 2025 Dr. Eduard Henley MD Attending physician Active Start: January 27, 2025 End: January 27, 2025 Dr. Eduard Henley MD Referring Provider Active Start: January 27, 2025 End: January 27, 2025 Team Status: Inactive Member Role/Relationship Status Dates Dr. Eduard Henley MD Primary care physician Act ximena Start: May 05, 2025 End: May 05, 2025 Dr. Eduard Henley MD Referring Provider Active Start: May 05, 2025 End: May 05, 2025 Mitchell Dubois STATOR WINDER, STATOR WINDER-C Attending physician Active Start: May 05, 2025 End: May 05, 2025 (unrecognized sect ion and content) No Status Records Found INFORMATION SOURCE (unrecogn ized section and content) DATE CREATED AUTHOR 05/06/2025 [facility] FOR RECORDS PERTAINING TO PATIENTS WHO [...] ON THE PRIMARY CLINICAL RECORDS. [facility] [employer], [facility]. provides no warranty or guarantee of the accuracy or completeness of information in this document.
--- NOTE | 2025-06-09 20:37 | RAD_ITS ---
PROCEDURE: CHEST 1 VIEW (PORTABLE) 06/09/2025 REASON FOR EXAM: CHEST PAIN TECHNIQUE: Frontal view of the chest. COMPARISON: 09/03/2024 FINDINGS: Hardware: None. Heart: The heart size is normal. Lungs: The lungs are clear. No pneumothorax or pleural effusion. Bones: The bones are unremarkable. RAD/Chest 1 View (Portable) IMPRESSION: No Acute Findings. Reading Location[facility]
[2025-06-09 20:58] LABS: AST(SGOT) 26 U/L (<=37); Alanine Aminotransfer ALT/SGPT 19 U/L (<=46); Albumin, Serum 3.7 g/dL (3.4-4.8); Alkaline Phosphatase 63 U/L (40-129); Anion Gap 16 (5-15); BUN 14 mg/dL (4-19); BUN/Creat Ratio 14.5 RATIO (10-20); Bilirubin, Direct 0.13 mg/dL (0.00-0.30); Calcium,Total 9.0 mg/dL (7.6-11.0); Carbon Dioxide 19.5 mmol/L (21.0-32.0); Chloride 100 mmol/L (98-108); Estimated Creatinine Clearance 86.88 ml/min (50-250); Globulin 3.3 g/dL (2.2-4.2); Glucose 141 mg/dL (70-99); Potassium 3.4 mmol/L (3.3-5.1)
[2025-06-09] MEDS: 0.9% Normal Saline (1000mL) 1,000 ML 999 ML IV (21:01)
[2025-06-09 21:07] LABS: Hematocrit 38.7 % (40-54); Hemoglobin 13.0 g/dL (13.0-16.5); Immature Granulocytes Count 0.040 X10^3/uL (0.0-0.0); Mean Corp Hgb Conc 33.6 g/dL (32-36); Mean Corpuscular Volume 98.7 fL (80-94); Mean Platelet Vol. 9.9 fl (6.2-12.0); NRBC Flagged by Analyzer 0 % (0-5); Platelet Count 234 K/mm3 (150-450); RBC Distribution Width CV 12.9 % (11.6-14.6); RBC Distribution Width SD 46.5 fl (35.1-43.9); Red Blood Count 3.92 M/mm3 (4.6-6.2); White Blood Count 5.0 K/mm3 (4.4-11.0)
[2025-06-09 21:10] LABS: Mucous, Urine 0 SEEN /hpf (<or=2+); Red Blood Cells-Urine 0 SEEN /hpf (0-5)
[2025-06-09 21:26] LABS: Color, Urine Straw (Yellow); Glucose, Dipstick Normal (Normal); Ketone-Dipstick Negative (Negative); Leukocyte Esterase-Dipstick Negative /ul (Negative); Nitrite-Dipstick Negative (Negative); Occult Blood-Urine Negative /ul (Negative); Protein-Dipstick 15 mg/dl (Negative); Specific Gravity, Urine 1.010 (1.002-1.030); Urine Bilirubin Dipstick Negative (Negative)
[2025-06-09 21:32] LABS: Troponin T High Sensitivity < 6 ng/L (<=22)
[2025-06-09 22:08] LABS: Squamous Epithelial Cells - UA 0-5 SEEN /hpf (0-5)
[2025-06-09 22:17] LABS: Troponin T High Sens 2 HR < 6 ng/L (<=22)
--- NOTE | 2025-06-09 23:33 | PCM.HP.STD ---
HPI - General General Date of Admission: 06/09/25 Date of Service: 06/09/25 Chief Complaint: Syncope, N/lack of appetite/abdominal pain/diarrhea HPI Narrative The patient is a 59 y/o M w/ PMHx: CKD stage II per GFR trending, CAD s/p PCI, HTN, HLD, Former tobacco use, Hx prior diverticulitis last ~2-3 years prior who presents to the [facility] ED on 06/09/25 with history of increased lack of appetite, fatigue and malaise over the last approximate week with onset over the last 2 to 3 days mild left lower quadrant discomfort and loose stools as well as nausea but no emesis nor any fevers or chills and on day of presentation reported to have been using the bathroom with recurrent bowel movements with syncopal events twice in that setting and occurring once again when attempting to be up and moving with no head trauma but lightheadedness/dizziness prompting eventual ED evaluation to be cautious. Workup in the ED included T97.6, heart rate 80, BP 100/73, respiratory rate 16, 96% on room air, positive orthostatics, CBC with WC 5.0, [place] 13, platelet 234 without marked shift, CMP with carbon oxide 19.5, anion gap 16, BUN/creatinine 14/0.98, GFR 87, glucose 141, hepatic profile unremarkable, troponin less than 6 x 2, urinalysis unremarkable, chest x-ray with no acute cardiopulmonary findings, EKG with sinus rhythm with no acute evidence of ischemia, CT abdomen and pelvis with moderate distal colonic diverticulosis, probable mild acute segmental colitis versus uncomplicated diverticulitis of the sigmoid colon, mild undulating aneurysmal dilatation of the infrarenal abdominal aorta. In the ED patient ministered 1 L normal saline, ciprofloxacin 500 mg p.o. x 1, Flagyl 500 mg p.o. x 1, morphine 4 mg IV x 1, Zofran 4 mg IV x 1. FOR[facility]LY [facility] Medical History CKD (chronic kidney disease), stage II Wears partial dentures High cholesterol Gastric reflux History of diverticulitis Former smoker History of echocardiogram History of stress test Hypertension Cardiology follow-up encounter Sigmoid diverticulitis History of coronary artery disease Presence of stent in coronary artery (04/25/23) Essential hypertension HLD (hyperlipidemia) Atherosclerotic heart disease of [place] coronary artery without angina pectoris (04/25/23) Home Medications ?Medication ?Instructions ?Recorded ?Last Taken ?Type aspirin 81 mg tablet,delayed 81 mg PO QDAY [facility] 08/06/17 06/09/25 History release (Adult Low Dose Aspirin) cetirizine 10 mg tablet 10 mg PO PRN allergy symptoms 05/20/23 Unknown History nitroglycerin 0.4 mg sublingual 0.4 mg sublingual Q5-15M PRN CHEST 06/13/23 Unknown Rx tablet (Nitrostat) PAIN #25 tabs acetaminophen 500 mg capsule 1,000 mg PO Q8H PRN fever or pain 06/09/25 06/09/25 History epinephrine 0.3 mg/0.3 mL 0.3 mg IM PRN allergy to scallops 06/09/25 Unknown History injection, auto-injector essential 1 ea PO DAILY 06/09/25 06/09/25 History inclisiran 284 mg/1.5 mL 284 mg subcut .COMPLEX 06/09/25 06/03/25 History subcutaneous syringe (Leqvio) losartan 100 mg tablet 100 mg PO DAILY 06/09/25 06/09/25 History psyllium husk-calcium 1 gram-60 mg 2 cap PO QHS 06/09/25 06/09/25 History capsule (Metamucil Plus Calcium) Allergy/AdvReac Type Severity Reaction Status Date / Time shrimp Allergy Severe Anaphylaxis Verified 06/09/25 19:37 scallops Allergy Anaphylaxis Verified 06/09/25 19:37 Family History Grandfather , age 76 CVA (cerebral vascular accident) Father Diabetes Mother Dementia Surgical History History of coronary artery stent placement History of cardiac catheterization Presence of coronary angioplasty implant and graft (04/25/23) History of left heart catheterization (~12/2010) Social History adopted: No household members: spouse housing: house Smoking Status: Former smoker how long ago did patient quit smokin alcohol intake: current alcohol intake frequency: 0-2 drinks per day Alcohol type: beer substance use type: does not use caffeine: Yes Type: coffee Number of servings: 2 what type of physical activity do you participate in: none seatbelt use: sometimes do you feel safe at home: Yes ROS ROS Narrative Admission Review of Systems: CONSTITUTIONAL: No weight loss, fever, chills, + weakness or fatigue. HEENT: + Lightheadedness/dizziness. Eyes: No visual loss, blurred vision, double vision or yellow sclerae. Ears, Nose, Throat: No hearing loss, sneezing, congestion, runny nose or sore throat. SKIN: No rash or itching, lesions, wounds. CARDIOVASCULAR: + Lightheadedness/dizziness, syncopal events. No chest pain, chest pressure or chest discomfort, palpitations, edema, orthopnea. RESPIRATORY: No shortness of breath, cough or sputum, wheezing, hemoptysis. GASTROINTESTINAL: + Anorexia, nausea without emesis, diarrhea, abdominal pain. No melena, BRBPR. GENITOURINARY: No dysuria, frequency, urgency or retention. NEUROLOGICAL: + Lightheadedness, dizziness, syncopal events. No headache, paralysis, ataxia, numbness or tingling in the extremities, focal weakness, change in bowel or bladder control, seizure. MUSCULOSKELETAL: + muscle, back pain, joint pain or stiffness. HEMATOLOGIC: No anemia, bleeding or bruising. LYMPHATICS: No enlarged nodes. No history of splenectomy. PSYCHIATRIC: No history of depression or anxiety. ENDOCRINOLOGIC: No reports of sweating, cold or heat intolerance. No polyuria or polydipsia. ALLERGIES: + History of anaphylaxis. Vital Signs Vital Signs Vital Signs: 06/09/25 19:36 06/09/25 19:41 06/09/25 19:45 Temperature 97.6 F L Temperature Source Oral Pulse Rate 80 80 Pulse Rate [Lying] Pulse Rate [Sitting (for 1 minute prior to obtaining)] Pulse Rate [Standing (for 1 minute prior to obtaining)] Respiratory Rate 16 18 Blood Pressure 100/73 96/72 Blood Pressure [Lying] Blood Pressure [Sitting (for 1 minute prior to obtaining)] Blood Pressure [Standing (for 1 minute prior to obtaining)] Blood Pressure Mean 82 81 Blood Pressure Mean [Lying] Blood Pressure Mean [Sitting (for 1 minute prior to obtaining)] Blood Pressure Mean [Standing (for 1 minute prior to obtaining)] Pulse Ox 96 98 Oxygen Delivery Method 06/09/25 20:00 06/09/25 20:15 06/09/25 20:30 Temperature Temperature Source Pulse Rate 82 82 Pulse Rate [Lying] Pulse Rate [Sitting (for 1 minute prior to obtaining)] Pulse Rate [Standing (for 1 minute prior to obtaining)] Respiratory Rate 20 H 18 Blood Pressure 103/71 113/79 103/72 Blood Pressure [Lying] Blood Pressure [Sitting (for 1 minute prior to obtaining)] Blood Pressure [Standing (for 1 minute prior to obtaining)] Blood Pressure Mean 81 90 82 Blood Pressure Mean [Lying] Blood Pressure Mean [Sitting (for 1 minute prior to obtaining)] Blood Pressure Mean [Standing (for 1 minute prior to obtaining)] Pulse Ox 95 96 Oxygen Delivery Method 06/09/25 20:30 06/09/25 20:30 06/09/25 20:39 Temperature Temperature Source Pulse Rate 85 Pulse Rate [Lying] Pulse Rate [Sitting (for 1 minute prior to obtaining)] Pulse Rate [Standing (for 1 minute prior to obtaining)] Respiratory Rate 18 Blood Pressure 103/72 103/72 Blood Pressure [Lying] Blood Pressure [Sitting (for 1 minute prior to obtaining)] Blood Pressure [Standing (for 1 minute prior to obtaining)] Blood Pressure Mean 82 82 Blood Pressure Mean [Lying] Blood Pressure Mean [Sitting (for 1 minute prior to obtaining)] Blood Pressure Mean [Standing (for 1 minute prior to obtaining)] Pulse Ox 96 Oxygen Delivery Method Room Air 06/09/25 20:45 06/09/25 20:50 06/09/25 20:51 Temperature Temperature Source Pulse Rate 89 Pulse Rate [Lying] 88 Pulse Rate [Sitting (for 1 minute prior to obtaining)] 90 Pulse Rate [Standing (for 1 minute prior to obtaining)] 97 Respiratory Rate Blood Pressure 115/77 117/79 Blood Pressure [Lying] 117/79 Blood Pressure [Sitting (for 1 minute prior to obtaining)] 113/75 Blood Pressure [Standing (for 1 minute prior to obtaining)] 110/77 Blood Pressure Mean 88 90 Blood Pressure Mean [Lying] 91 Blood Pressure Mean [Sitting (for 1 minute prior to obtaining)] 87 Blood Pressure Mean [Standing (for 1 minute prior to obtaining)] 88 Pulse Ox 95 97 Oxygen Delivery Method 06/09/25 20:51 06/09/25 20:52 06/09/25 21:00 Temperature Temperature Source Pulse Rate 91 95 Pulse Rate [Lying] Pulse Rate [Sitting (for 1 minute prior to obtaining)] Pulse Rate [Standing (for 1 minute prior to obtaining)] Respiratory Rate 14 20 H Blood Pressure 113/75 110/77 114/79 Blood Pressure [Lying] Blood Pressure [Sitting (for 1 minute prior to obtaining)] Blood Pressure [Standing (for 1 minute prior to obtaining)] Blood Pressure Mean 87 87 89 Blood Pressure Mean [Lying] Blood Pressure Mean [Sitting (for 1 minute prior to obtaining)] Blood Pressure Mean [Standing (for 1 minute prior to obtaining)] Pulse Ox 97 96 Oxygen Delivery Method 06/09/25 21:15 06/09/25 21:30 06/09/25 22:00 Temperature Temperature Source Pulse Rate 90 87 Pulse Rate [Lying] Pulse Rate [Sitting (for 1 minute prior to obtaining)] Pulse Rate [Standing (for 1 minute prior to obtaining)] Respiratory Rate 18 18 Blood Pressure 114/74 111/75 135/84 H Blood Pressure [Lying] Blood Pressure [Sitting (for 1 minute prior to obtaining)] Blood Pressure [Standing (for 1 minute prior to obtaining)] Blood Pressure Mean 86 87 99 Blood Pressure Mean [Lying] Blood Pressure Mean [Sitting (for 1 minute prior to obtaining)] Blood Pressure Mean [Standing (for 1 minute prior to obtaining)] Pulse Ox Oxygen Delivery Method 06/09/25 23:29 Temperature 98.0 F Temperature Source Pulse Rate 91 Pulse Rate [Lying] Pulse Rate [Sitting (for 1 minute prior to obtaining)] Pulse Rate [Standing (for 1 minute prior to obtaining)] Respiratory Rate 16 Blood Pressure 129/87 H Blood Pressure [Lying] Blood Pressure [Sitting (for 1 minute prior to obtaining)] Blood Pressure [Standing (for 1 minute prior to obtaining)] Blood Pressure Mean 101 Blood Pressure Mean [Lying] Blood Pressure Mean [Sitting (for 1 minute prior to obtaining)] Blood Pressure Mean [Standing (for 1 minute prior to obtaining)] Pulse Ox 98 Oxygen Delivery Method Weight Weight: 194 lb 7.163 oz Body Mass Index (BMI) 26.4 Physical Exam Narrative Physical Examination: General: Awake, alert, oriented x 3 and cooperative, seated upright in bed in no apparent distress, fatigued, reporting left lower quadrant worsening abdominal discomfort 5 out of 10 in severity and mild nausea. Skin: Normal color, normal turgor, no icterus, no cyanosis except occasional stage ecchymoses, abrasion. HEENT: AT/NC, EOMI, PERRLA, mildly dry MM, no carotid bruits or JVD noted. Lungs: Mildly diminished, greater bases, appropriate effort, no rales, ronchi or wheezing. Heart: Regular rate and rhythm; no gallop, rub audible. Abdomen: Soft, mild discomfort to left lower quadrant palpation but no rebound or guarding, no marked distention, mildly hyperactive BS, no appreciated HSM. Extremities: No cyanosis, clubbing, or edema. Neurological: Patient awake, alert, oriented as noted, cognitive function intact; pupils equally reactive to light and accommodation, cranial nerves grossly normal, moving all 4 extremities, no focal deficits, strength mildly globally decreased Psychiatric: Affect appears fatigued otherwise normal, no acute evidence of depressive or anxiety feelings. Results Lab / Micro Data 06/09/25 19:40 06/09/25 19:40 Labs: Laboratory Results - last 24 hr 06/09/25 19:40: WBC 5.0, RBC 3.92 L, Hgb 13.0, Hct 38.7 L, MCV 98.7 H, MCH 33.2 H, MCHC 33.6, RDW Std Deviation 46.5 H, RDW Coeff of [place]icia 12.9, Plt Count 234, MPV 9.9, Immature Gran % (Auto) 0.800, Neut % (Auto) 47.1, Lymph % (Auto) 35.7, [place] % (Auto) 11.6 H, Eos % (Auto) 4.0, Baso % (Auto) 0.8, Absolute Neuts (auto) 2.4, Absolute Lymphs (auto) 1.79, Nucleated RBC % 0, Sodium 135, Potassium 3.4, Chloride 100, Carbon Dioxide 19.5 L, Anion Gap 16 H, BUN 14, Creatinine 0.98, Estim Creat Clear Calc 86.88, Est GFR (MDRD) Non-Af 87, BUN/Creatinine Ratio 14.5, Glucose 141 H, Calcium 9.0, Total Bilirubin 0.28, Direct Bilirubin 0.13, AST 26, ALT 19, Alkaline Phosphatase 63, Troponin T High Sens < 6, Total Protein 7.0, Albumin 3.7, Globulin 3.3 06/09/25 21:04: Urine Color Straw, Urine Clarity Clear, Urine pH 6.0, Ur Specific [place] 1.010, Urine Protein 15 H, Urine Glucose (UA) Normal, Urine Ketones Negative, Urine Occult Blood Negative, Urine Nitrite Negative, Urine Bilirubin Negative, Urine Urobilinogen Normal, Ur Leukocyte Esterase Negative, Urine RBC 0 SEEN, Urine WBC 0-5 SEEN, Ur Squamous Epith Cells 0-5 SEEN, Urine Bacteria RARE, Hyaline Casts 0-5 SEEN, Urine Mucus 0 SEEN 06/09/25 21:45: Troponin T Hi Sens 2 Hr < 6 Rhythm Strip Rhythm Strip: Sinus Rhythm Rate: 81 Ectopy: None Imaging Radiology Impression Abdomen/Pelvis CT 06/09/25 20:10 IMPRESSION: 1. Moderate distal colonic diverticulosis, with probable mild acute segmental colitis versus uncomplicated diverticulitis of the sigmoid colon. 2. Mild undulating aneurysmal dilatation of the infrarenal abdominal aorta. Reading Location: [id number] Chest X-Ray 06/09/25 20:37 IMPRESSION: No Acute Findings. Reading Location: [facility] Assessment & Plan Assessment/Plan (1) Diverticulitis: (2) Syncope and collapse: PLAN: Plan The patient is a 59 y/o M w/ PMHx: CKD stage II per GFR trending, CAD s/p PCI, HTN, HLD, Former tobacco use, Hx prior diverticulitis last ~2-3 years prior who presents to the [facility] ED on 06/09/25 with history of increased lack of appetite, fatigue and malaise over the last approximate week with onset over the last 2 to 3 days mild left lower quadrant discomfort and loose stools as well as nausea but no emesis nor any fevers or chills and on day of presentation reported to have been using the bathroom with recurrent bowel movements with syncopal events twice in that setting and occurring once again when attempting to be up and moving with no head trauma but lightheadedness/dizziness prompting eventual ED evaluation to be cautious. #1. Syncopal Event, orthostatic suspect likely secondary to GI losses and vasovagal event: EKG in ED w/ sinus rhythm with nonspecific changes without evidence of acute ischemia, CXR w/ no acute cardiopulmonary findings, CT abdomen pelvis with concern for acute diverticulitis, initial trop normal. Will admit to PCU, place on a monitored bed to assure no acute myocardial infarction with serial cardiac enzymes and EKGs, will give an additional 1 L bolus given positive orthostatics, will continue maintenance fluids following, will maintain on fall precautions, will obtain echocardiogram to be cautious, continue treatment as noted above #2. #2. Acute Diverticulitis: CT A/P w/ evidence of probable mild acute segmental colitis versus uncomplicated diverticulitis of the sigmoid colon and given patient now with worsening left lower quadrant discomfort rating it 5 out of 10 with lack of appetite and mild nausea I do suspect this is the case, as noted above likely from GI losses with concurrent syncopal event, will give additional 1 L fluid and maintain on maintenance IV fluid, monitor I&Os, maintain on clears until clinically improving, will maintain on zosyn regimen, IV PPI will have anti-emetics, pain regimen PRN. Consider diet advancement to clears in AM if clinically improved. #3. Hyperglycemia without diabetic history: Admission glucose 141, possibly stress response, will repeat CMP in a.m. and if further elevated may investigate further. #4. Chronic Kidney Disease Stage II per GFR trending: Admission BUN/Cr 14/0.98, GFR 87, baseline renal function primarily 0.8-1.2, repeat BMP in AM. #5. CAD: Status post PCI, will continue aspirin, losartan, not on any beta-robert therapy per current list for clarifying to be certain, unable to take statins, noted to have recently been initiated on Leqvio outpatient. #6. Hypertension: Continue home regimen including losartan with hold parameters as needed especially given orthostasis, PRN hydralazine. #7. Hyperlipidemia: Patient not on statin, notes intolerance, recently initiated outpatient on Leqvio. #8. Former tobacco use: Encourage continued tobacco cessation. #9. Incidentally noted mildly undulating aneurysmal dilatation infrarenal abdominal aorta: Noted on CT abdomen and pelvis, encouraged follow-up outpatient for reevaluation/reimaging. #10. DVT prophylaxis: Lovenox. Charges/Coding Visit Charges Inpatient E&M: 52951 Init Hosp L3
--- OUTSIDE RECORDS SUMMARY | 2025-06-09 23:35 | XMS RPT_ITS | CCD ---
Author Organization [facility] Care Team Providers Care Mat Weaver Name Role Phone DeFinis, Harumi Y Unavailable [...] Provider Dr. Sergei Henley Referring Provider Roof MICA LAMINATING MACHINE FEEDER, MICA LAMINATING MACHINE FEEDER-C Mitchell Harvey Attending Provider Dr. Sergei Henley Primary Care Provider Dr. Perez Dave Emergency Provider Dr. Ar Torres Admit Provider Dr. Ar Torres Attending Provider Dr. Ar Torres Other Provider Dr. Jose Lockwood Other Provider Dr. Rommel Youssef Other Provider Dr. Rommel Youssef Attending Provider Dr. Jose Lockwood Attending Provider [phone] Sergei Henley Referring Provider Sherly MICA LAMINATING MACHINE FEEDER, MICA LAMINATING MACHINE FEEDER-C Mitchell Harvey Attending Provider MD Donta Swenson Emergency Provider Dr. Meliza Ramírez Admit Provider Dr. Meliza Ramírez Other Provider Dr. Sergei Henley Primary Care Provider Dr. Rommel Youssef Attending Provider Dr. Rommel Youssef Other Provider Dr. Olegario Segal Attending Provider Dr. Sergei Henley Primary Care Provider Dr. Sergei Henley Referring Provider Sherly MICA LAMINATING MACHINE FEEDER, MICA LAMINATING MACHINE FEEDER-Cliff Harvey Attending Provider Dr. Olegario Segal Referring Provider Dr. Olegario Segal Other Provider Dr. Eduard Henley MD Primary Care Provider Dr. Eduard Henley MD Referring Provider [phone] Dr. Jose Lockwood MD Attending Provider Nick ABARCA, Dr. Lee Attending Provider [phone] Nick ABARCA, Dr. Lee Emergency Provider Flor SY, Dr. Arellano Attending Provider Flor SY, Dr. Arellano Referring Provider Kale SY, Dr. Chapa Attending Provider [phone] Roof MICA LAMINATING MACHINE FEEDER-C, Mitchell H Attending Provider Roof MICA LAMINATING MACHINE FEEDER-C, Mitchell H Referring Provider Roof MICA LAMINATING MACHINE FEEDER-C, Mitchell H Other Provider Kale SY, Dr. Chapa Primary Care Provider Kale SY, Dr. Chapa Referring Provider Mandie SY, Dr. Garcia Attending Provider [phone] Rico Attending Provider [phone] Ruslan SY, Dr. Jones Emergency Provider Kale SY, Dr. Chapa Primary Care Provider Kale SY, Dr. Chapa Referring Provider Ruslan SY, Dr. Jones Attending Provider Kale SY, Dr. Chapa Attending Provider [phone] Roof MICA LAMINATING MACHINE FEEDER, Mitchell H Attending Unavailable Kale, Eduard Referring [...] Unavailable Ranney, Christopher Primary Care Unavailable Roof MICA LAMINATING MACHINE FEEDER, Mitchell Harvey Attending Unavailable Sherly MICA LAMINATING MACHINE FEEDER, Mitchell H Referring Unavailable Eduard Henley Primary Care Unavailable Jose Lockwood Attending Unavailable Sherly MICA LAMINATING MACHINE FEEDER, Mitchell Harvey Consulting Unavailable Sherly MICA LAMINATING MACHINE FEEDER, Mitchell Harvey Referring Unavailable Eduard Henley Primary [...] n Ruslan SY, Dr. Jones Attending Physician [phone] Ruslan SY, Dr. Jones Emergency Department Physici an Kale SY, Dr. Chapa Attending Physician Kale SY, Dr. Chapa Referring Provider Sherly MICA LAMINATING MACHINE FEEDER-CMitchell Attending Physician [phone] Allergies Allergy Classification Reported Allergen(s) Allergy Type Date of Onset Reaction(s) Facility (3 sources) shrimp allergenic extract Drug Allergy 01-22-2025 Anaphylaxis [facility] (1 source) Scallop - dietary Drug allergy (disorder) 05-05-2025 [facility] Repository (1 source) Shrimp product Drug allergy (disorder) 05-05-2025 [facility] Repository (1 source) scallop allergenic extract Drug Allergy 05-05-2025 Anaphylaxis [facility] Medications Current Medications Medication Drug Class(es) Dates [...] mg PO daily August 06, 2017 1:00am [facility] Complies with drug therapy Start: 11-27-2011 take 1 tablet by kolton th once daily ASPIRIN 81 MG TABS One tablet by mouth daily ASPIRIN [id number] Elizabet Sridevi Avila Start: 11-27-2011 take 1 tablet by kolton th once daily ASPIRIN 81 MG TABS One tablet by mouth daily ASPIRIN 02483218319 Elizabet Avila Start: 11-27-2011 take 1 tablet by kolton th once daily ASPIRIN EC 81 MG TBEC One tablet by mouth daily ASPIRIN 15277047548 Bhavani Ralph PA-C cetirizine hydrochloride 10 mg [...] One tablet by mouth daily CLOPIDOGREL BISULFATE 82899843758 Elizabet Avila 1 ml evolocumab 140 mg/ml [...] 5 min up to 3 X NITROGLYCERIN [id number] Brain Whyte MD Start: 11-27-2011 NITROGLYCERIN 0.4 MG/HR PT24 1 tablet under tongue every 5 min up to 3 X NITROGLYCERIN 28580873029 Elizabet Avila pantoprazole 40 mg delayed release [...] One tablet by mouth twice daily AMOXICILLIN 25476740307 Latisha Zayas PA-C amoxicillin 875 mg / [...] mouth three times daily as needed CLONAZEPAM 48770784961 Elizabet Avila Cobalamin Combinations capsule (4 sources) [...] Start: 06-14-2023 take 1 capsule by mo [facility] once daily Cobalamine Combinations Active CAP PO DAILY June 13, 2023 11:00pm Start: 06-14-2023 take 1 capsule by mo [facility] once daily Cobalamine Combinations Active CAP [...] TABS One tablet by mouth daily EZETIMIBE 30257701756 Brain Whyte MD famotidine 20 mg oral tablet (5 sources) Histamine-2 Receptor Antagonist Start: 10-25-2013 take 1 tablet by mouth once daily FAMOTIDINE 20 MG TABS One tablet by mouth daily FAMOTIDINE 99186133836 Brain Whyte MD fish oil (10 sources) Start: 06-01-2012 End: 01-11-2013 take 1 tablet by mouth once daily FISH OIL CAPS One tablet by mouth daily OMEGA-3 FATTY ACIDS CAPS 08906684187 Bhavani Ralph PA-C Start: 06-01-2012 take 1 tablet by kolton th once daily FISH OIL CAPS One tablet by mouth daily OMEGA-3 FATTY ACIDS CAPS 45079708119 Brain Whyte MD Start: 06-01-2012 End: 01-11-2013 take 1 tablet by mouth once daily FISH OIL CAPS One tablet by mouth daily OMEGA-3 FATTY ACIDS CAPS 91682178962 Bhavani Ralph PA-C Start: 06-01-2012 take 1 tablet by kolton th once daily FISH OIL CAPS One tablet by mouth daily OMEGA-3 FATTY ACIDS CAPS 38797237635 Brain Whyte MD lisinopril 10 mg oral [...] TABS One tablet by mouth daily LISINOPRIL 55161924128 Brain Whyte MD Start: 11-28-2011 End: 01-11-2013 take 1 tablet by mouth once daily LISINOPRIL 10 MG TABS One tablet by mouth daily LISINOPRIL 70123379591 Bhavani Ralph PA-C Start: 11-27-2011 take 1 tablet by kolton th once daily LISINOPRIL 2.5 MG TABS One tablet by mouth daily LISINOPRIL 89565035773 Elizabet Avila loratadine 10 mg oral tablet [...] tablet by mouth daily as needed LORATADINE 44359057765 Brain Whyte MD Start: 11-27-2011 take 1 tablet by kolton th once daily as needed CLARITIN 10 MG CAPS One tablet by mouth daily as needed LORATADINE 96041048010 Brain Whyte MD oxyCODONE hydrochloride 5 mg [...] tablet by mouth at bedtime. PRAVASTATIN SODIUM 15665916346 Brain Whyte MD raNITIdine 150 mg oral tablet (5 sources) Histamine-2 Receptor Antagonist Start: 06-01-2012 take 1 tablet by mouth twice daily RANITIDINE HCL 150 MG TABS One tablet by mouth twice daily RANITIDINE HCL 78193301453 Brain Whyte MD rosuvastatin calcium 5 mg [...] One tablet by mouth at bedtime. SIMVASTATIN 11078521652 Elizabetpili Avila tadalafil 5 mg oral tablet (20 sources) Phosphodiesterase 5 Inhibitor Start: 08-06-2017 End: 01-26-2018 Tadalafil 5 mg tablet Discontinued 5 mg PO NEEDED as needed for erectile 30 30 0 August 06, 2017 1:00am January 26, 2018 8:38am Start: 06-01-2012 CIALIS 5 MG TA BS as directed TADALAFIL 27657361116 Brain Whyte MD ticagrelor 90 mg oral [...] Coronary atherosclerosis; Translations: [Atherosclerotic heart disease of [place] coronary artery without angina pectoris] Onset: 11-27-2011 [...] medical history, I have shared with Mr. Pbalito that we should consider possible Dean's screening [...] (current) use of other medications; Translations: [Other detention (current) drug therapy] Onset: 06-10-2012 Resolved: 05-03-2015 [...] Facility Cardiology Visit Reporton Cardiology Visit Report [facility] [address] [place] [address] OFFICE VISIT Date of Service: 05/05/25 MR#: [id number] Acct: [id number] Name: JOVANY MUÑIZ Rep #: [id number] : 1965 Provider: EUGENIA south Age/Sex: 59/M Location: [facility] Status: Signed HPI HPI History of Present Illness Details: This is a 59-year-old white male who presents today for outpatient cardiovascular follow-up regarding a history of underlying CAD, PCI, hyperlipidemia, and hypertension. He was noted to have inferior myocardial infarction with stenting to his obtuse marginal, proximal to mid circumflex, proximal to mid LAD in 2009. He presented [facility] on 04/23/2023 for assurance regarding stroke [...] room air Intake Visit Reasons: 9 M Business Segment Manager Required: No Accompanied by: Is patient in pain?: No Allergies shrimp Allergy (Severe, Verified 05/05/25 08:30) Anaphylaxis scallops Allergy (Verified 05/05/25 08:30) Anaphylaxis Medications ???Medication ???Instructions ???Recorded ???Confirmed ???Type aspirin 81 mg tablet,delayed 81 mg PO QDAY heart [facility] 7 05/05/25 History release (Adult Low [...] Old myocardial infarction Atherosclerotic heart disease of [place] coronary artery without angina pectoris (04/25/23) Surgical [...] of vision (more content not included)... Normal [facility] L5500.0550on 02-01-2025 BEEF <0.10 Normal Class 0 [facility] Comment on above: Performed By: #### L 500.2500, L501.4021, L100.0100 #### [facility] [address] [place], [address] CHOCOLATE <0.10 Normal Class 0 [facility] Comment on above: Performed By: #### L 500.2500, L501.4021, L100.0100 #### [facility] [address] [place], [address] CODFISH <0.10 Normal Class 0 [facility] Comment on above: Performed By: #### L 500.2500, L501.4021, L100.0100 #### [facility] [address] [place], [address] COMMENT Comment Normal . [facility] Comment on above: Result Comment: Master bennett of Specific IgE Class Description of Class ----- < 0.10 0 Negative 0.10 - 0.31 0/I Equivocal/Low 0.32 - 0.55 I Low 0.56 - 1.40 II Moderate 1.41 - 3.90 III High 3.91 - 19.00 IV Very High 19.01 - 100.00 V Very High >100.00 Very High Performed By: #### L 500.2500, L501.4021, L100.0100 #### [facility] [address] [place], [address] CORN <0.10 Normal Class 0 [facility] Comment on above: Performed By: #### L 500.2500, L501.4021, L100.0100 #### [facility] [address] [place], [address] EGG, WHOLE <0.10 Normal Class 0 [facility] Comment on above: Result Comment: Perf ormed at: [facility] [id number] Duct Layer Supervisor: Brandie Dial MD, Phone: [phone] Performed By: #### L 500.2500, L501.4021, L100.0100 #### [facility] [address] [place], [address] MILK (COW) <0.10 Normal Class 0 [facility] Comment on above: Performed By: #### L 500.2500, L501.4021, L100.0100 #### [facility] [address] [place], [address] MUSSELS <0.10 Normal Class 0 [facility] Comment on above: Performed By: #### L 500.2500, L501.4021, L100.0100 #### [facility] [address] [place], [address] PEANUT <0.10 Normal Class 0 [facility] Comment on above: Performed By: #### L 500.2500, L501.4021, L100.0100 #### [facility] [address] [place], [address] PORK <0.10 Normal Class 0 [facility] Comment on above: Performed By: #### L 500.2500, L501.4021, L100.0100 #### [facility] [address] [place], [address] SALMON <0.10 Normal Class 0 [facility] Comment on above: Performed By: #### L 500.2500, L501.4021, L100.0100 #### [facility] [address] [place], [address] SHRIMP 0.50 kU/L Abnormal Class I [facility] Comment on above: Performed By: #### L 500.2500, L501.4021, L100.0100 #### [facility] [address] [place], [address] SOYBEAN <0.10 Normal Class 0 [facility] Comment on above: Performed By: #### L 500.2500, L501.4021, L100.0100 #### [facility] [address] [place], [address] TUNA <0.10 Normal Class 0 [facility] Comment on above: Performed By: #### L 500.2500, L501.4021, L100.0100 #### [facility] [address] [place], [address] WHEAT <0.10 Normal Class 0 [facility] Comment on above: Performed By: #### L 500.2500, L501.4021, L100.0100 #### [facility] [address] [place], [address] Calculated very low density lipoprotein (VLDL) cholesterol measurementOrdered By: Eduard Henley on 01-27-2025 Calculated very low density lipoprotein (VLDL) cholesterol measurement 31 mg/dL 5-40 [facility] LDL calc ser/plasOrdered By: Eduard Henley on 01-27-2025 Cholesterol in LDL [Mass/Vol] 131 mg/dL [facility] Comment on above: Dynpgzmrpa=148-190 m g/dL & Higher Fsod=872 mg/dL or greater Laboratory - Miscellaneous t estsOrdered By: Eduard Henley on 01-27-2025 Service comment (Unsp spec) [Interp] Comment . [facility] Comment on above: Levels of Specific I gE Class Description of Class ----- < 0.10 0 Negative 0.10 - 0.31 0/I Equivocal/Low 0.32 - 0.55 I Low 0.56 - 1.40 II Moderate 1.41 - 3.90 III High 3.91 - 19.00 IV Very High 19.01 - 100.00 V Very High >100.00 Very High Lipid Profileon 01-27-2025 CHOL:HDL 2.83 Normal [facility] Comment on above: Order Comment: Order Date: 10/01/24 Order Info: [id number] - LIPID Performed By: #### L 500.4100 #### [facility] [address] [place], [address] Cholesterol [Mass/Vol] 251 mg/dL High <=200 [facility] Comment on above: Order Comment: Order Date: 10/01/24 Order Info: [id number] - LIPID Result Comment: Chol esterol level, Desirable <200 mg/dL Borderline high cholesterol 200-239 mg/dL High cholesterol >=240 mg/dL Recommendations of the NCEP Adult Treatment Panel for the following risk-cutoff thresholds for the [place] population. Performed By: #### L 500.4100 #### [facility] [address] [place], [place], [address] Cholesterol in HDL [Mass/Vol] 89 mg/dL Normal [facility] Comment on above: Order Comment: Order Date: 10/01/24 Order Info: [id number] - LIPID Result Comment: Anum onal Cholesterol Education Program (NCEP) guidelines: <40 mg/dL: Low HDL-cholesterol (major risk factor for CHD) >= 60 mg/dL: High HDL-cholesterol (negative risk factor for CHD) HDL-cholesterol is affected by a number of factors, e.g. smoking, exercise, hormones, sex and age. Performed By: #### L 500.4100 #### [facility] [address] [place], [place], [address] Cholesterol in LDL [Mass/Vol] 131 mg/dL Normal [facility] Comment on above: Order Comment: Order Date: 10/01/24 Order Info: [id number] - LIPID Result Comment: Bord yeganm=943-149 mg/dL Higher Yxnc=059 mg/dL or greater Performed By: #### L 500.4100 #### [facility] [address] [place], [place], [address] Cholesterol in VLDL [Mass/Vol] 31 mg/dL Normal 5-40 [facility] Comment on above: Order Comment: Order Date: 10/01/24 Order Info: [id number] - LIPID Performed By: #### L 500.4100 #### [facility] [address] [place], [place], [address] Triglyceride [Mass/Vol] 156 mg/dL Normal [facility] Comment on above: Order Comment: Order Date: 10/01/24 Order Info: [id number] - LIPID Result Comment: The drugs N-Acetylcysteine and Metamizole may falsely depress this assay. Normal range: <150 mg/dL Borderline High: 150-199 mg/dL High: 200-499 mg/dL Very High: >500 mg/dL Performed By: #### L 500.4100 #### [facility] [address] [place], [place], [address] Screening total cholesterol/ high density lipoprotein (HDL) cholesterol ratioOrdered By: Eduard Henley on 01-27-2025 Cholesterol.total/Choles terol in HDL [Mass ratio] 2.83 {ratio} [facility] Serum beef IgE antibody assa y (units/volume)Ordered By: Eduard Henley on 01-27-2025 Beef IgE Qn (S) <0.10 kU/L Class 0 [facility] Serum codfish IgE antibody a ssay (units/volume)Ordered By: Eduard Henley on 01-27-2025 Codfish IgE Qn (S) <0.10 kU/L Class 0 [facility] Serum corn IgE antibody assa y (units/volume)Ordered By: Eduard Henley on 01-27-2025 [place] IgE Qn (S) <0.10 kU/L Class 0 [facility] Serum cow milk IgE antibody assay (units/volume)Ordered By: Eduard Henley on 01-27-2025 Cow milk IgE Qn (S) <0.10 kU/L Class 0 [facility] Serum or plasma cholesterol in HDL measurement (mass/volume)Ordered By: Eduard Henley on 01-27-2025 Cholesterol in HDL [Mass/Vol] 89 mg/dL >40 [facility] Comment on above: National Cholesterol Education Program (NCEP) guidelines:<40 mg/dL: Low HDL-cholesterol (major risk factor for CHD)>= 60 mg/dL: High HDL-cholesterol (negative risk factor for CHD)HDL-cholesterol is affected by a number of factors, e.g. smoking, exercise, hormones, sex and age. Serum or plasma cholesterol measurement (mass/volume)Ordered By: Eduard Henley on 01-27-2025 Cholesterol [Mass/Vol] 251 mg/dL High <201 [facility] Comment on above: Cholesterol level, D esirable <200 mg/dLBorderline high cholesterol 200-239 mg/dLHigh cholesterol >=240 mg/dLRecommendations of the NCEP Adult Treatment Panel for the following risk-cutoff thresholds for the [place] population. Serum peanut IgE antibody as say (units/volume)Ordered By: Eduard Henley on 01-27-2025 Peanut IgE Qn (S) <0.10 kU/L Class 0 [facility] Serum pork IgE antibody assa y (units/volume)Ordered By: Eduard Henley on 01-27-2025 Pork IgE Qn (S) <0.10 kU/L Class 0 [facility] Serum salmon IgE antibody as say (units/volume)Ordered By: Eduard Henley on 01-27-2025 [place] IgE Qn (S) <0.10 kU/L Class 0 [facility] Serum soybean IgE antibody a ssay (units/volume)Ordered By: Eduard Henley on 01-27-2025 Soybean IgE Qn (S) <0.10 kU/L Class 0 [facility] Serum tuna IgE antibody assa y (units/volume)Ordered By: Eduard Henley on 01-27-2025 Tuna IgE Qn (S) <0.10 kU/L Class 0 [facility] Serum wheat IgE antibody ass ay (units/volume)Ordered By: Eduard Henley on 01-27-2025 Wheat IgE Qn (S) <0.10 kU/L Class 0 [facility] Serum whole egg IgE antibody assay (units/volume)Ordered By: Eduard Henley on 01-27-2025 Whole Egg IgE Qn (S) <0.10 kU/L Class 0 [facility] Comment on above: Performed at: [address] [id number] Director: Brandie Dial MD, Phone: [phone] Triglycerides measurementOrd ered By: Eduard Henley on 01-27-2025 Triglyceride [Mass/Vol] 156 mg/dL <199 [facility] Comment on above: The drugs N-Acetylcy steine and Metamizole may falsely depress this assay. Normal range: <150 mg/dLBorderline High: 150-199 mg/dLHigh: 200-499 mg/dLVery High: >500 mg/dL Vitamin B12on 01-27-2025 Cobalamin (Vitamin B12) [Mass/Vol] 743 pg/mL Normal 180-914 [facility] Comment on above: Order Comment: Order Date: 10/01/24Order Info: [id number] - LIPID Performed By: #### L 503.0106, L5500.0550 ####[facility] [id number] [facility] [place], [address] Vitamin B12 ser/plasOrdered By: Eduard Henley on 01-27-2025 Cobalamin (Vitamin B12) [Mass/Vol] 743 pg/mL 180-914 [facility] 12 Lead EKGon 01-22-2025 12 Lead EKG [facility] [address] [place] [address] 12 Lead EKG 01/22/25 1351 MR#: [id number] Acct: [id number] Name: JOVANY MUÑIZ Rep #: [id number] : 1965 59 From: Jose Lockwood MD [...] Normal ECG Confirmed by MANDIE SY, JOSE ([id number]), editor dictionary JOY PAULSON ([id number]) on 01/25/2025 7:48:42 AM Referred By: ISHA/RUSLAN Confirmed By: JOSE LOCKWOOD MD 01/25/25 0748 Date Jose Lockwood MD CC: Dr. Eduard Henley MD; Dr. Robert Mercer MD Signed Normal [facility] Absolute lymphocyte countOrd ered By: ED PROVIDER on 01-22-2025 Lymphocytes Auto (Unsp spec) [#/Vol] 1.12 10*3/uL 0.83-4.51 [facility] Absolute neutrophil countOrd ered By: ED PROVIDER on 01-22-2025 Neutrophils (Bld) [#/Vol] 3.3 10*3/uL 2.0-7.7 [facility] Anion gap in Serum or Plasma Ordered By: ED PROVIDER on 01-22-2025 Anion gap [Moles/Vol] 14 mmol/L 5-15 [facility] Automated blood erythrocyte countOrdered By: ED PROVIDER on 01-22-2025 RBC (Bld) [#/Vol] 4.48 10*6/uL Low 4.6-6.2 [facility] Comment on above: Performed By: #### L 500.2500, L501.4021, L100.0100 #### [facility] [address] [place], [place], [address] Automated blood hematocrit ( percentage)Ordered By: ED PROVIDER on 01-22-2025 Hematocrit (Bld) [Volume fraction] 43.5 % Normal 40-54 [facility] Comment on above: Performed By: #### L 500.2500, L501.4021, L100.0100 #### [facility] [address] [place], [address] Automated lymphocyte count a s percentage of total leukocytesOrdered By: ED PROVIDER on 01-22-2025 Lymphocytes/100 WBC Auto (Unsp spec) 22.1 % 19-41 [facility] BUN/creatinine ratioOrdered By: ED PROVIDER on 01-22-2025 Urea nitrogen/Creatinine [Mass ratio] 11.0 mg/mg 10- [facility] Basic Metabolic Profile (BMP )on 01-22-2025 BUN/CRE 11.0 RATIO Normal -20 [facility] Comment on above: Performed By: #### L 500.2500, L501.4021, L100.0100 #### [facility] [address] [place], [address] ECRCL 76.71 ml/min Normal 50-250 [facility] Comment on above: Performed By: #### L 500.2500, L501.4021, L100.0100 #### [facility] [address] [place], [address] GAP 14 Normal 5-15 [facility] Comment on above: Performed By: #### L 500.2500, L501.4021, L100.0100 #### [facility] [address] [place], [address] Potassium [Moles/Vol] 4.8 mmol/L Normal 3.3-5.1 [facility] Comment on above: Result Comment: Hemo lysis present, Results??could be affected. ?? Performed By: #### L 500.2500, L501.4021, L100.0100 #### [facility] [address] [place], [address] Basophil percentageOrdered B y: ED PROVIDER on 01-22-2025 Basophils/100 WBC (Bld) 0.8 % Normal 0-1 [facility] Comment on above: Performed By: #### L 500.2500, L501.4021, L100.0100 #### [facility] [address] [place], [address] CBC W/Diff, Automatedon 01-09 Absolute Lymph 1.12 X10 3/uL Normal 0.83-4.51 [facility] Comment on above: Performed By: #### L 500.2500, L501.4021, L100.0100 #### [facility] [address] [place], [address] Absolute Neut 3.3 X10 3/uL Normal 2.0-7.7 [facility] Comment on above: Performed By: #### L 500.2500, L501.4021, L100.0100 #### [facility] [address] [place], [address] IG% 0.400 Normal 0.0-0.9 [facility] Comment on above: Result Comment: IG% - Immature Granulocytes (promyelocytes, myelocytes and metamyelocytes) > 1% indicates that a LEFT SHIFT is Present. Performed By: #### L 500.2500, L501.4021, L100.0100 #### [facility] [address] [place], [address] Lymphocytes/100 WBC (Bld) 22.1 % Normal 19-41 [facility] Comment on above: Performed By: #### L 500.2500, L501.4021, L100.0100 #### [facility] [address] [place], [address] Nucleated RBC (Bld) [#/Vol] 0 10*3/uL Normal 0-5 [facility] Comment on above: Performed By: #### L 500.2500, L501.4021, L100.0100 #### [facility] [address] [place], [address] RDW SD 46.8 fl High 35.1-43.9 [facility] Comment on above: Performed By: #### L 500.2500, L501.4021, L100.0100 #### [facility] [address] [place], [address] Carbon dioxide, total [Moles /volume] in Central venous bloodOrdered By: ED PROVIDER on 01-22-2025 CO2 [Moles/Vol] 21.7 mmol/L Normal 21.0-32.0 [facility] Comment on above: Performed By: #### L 500.2500, L501.4021, L100.0100 #### [facility] [address] [place], [address] Chest 1 View (Portable)on Chest 1 View (Portable) [facility] Imaging Services [address] [address] Chest 1 View (Portable) MR#: [id number] Acct: [id number] Name: JOVANY MUÑIZ Rep #: [id number] : 1965 M 59 From: Rachael Santos nd, MD PCP: Dr. Eduard Henley MD Status: REG ER Study: Chest 1 View (Portable) Date of Exam: 01/22/25 Exam# [id number] Ordering Dr: Robert Mercer MD PROCEDURE: CHEST 1 VIEW (PORTABLE) 01/22/2025 REASON FOR EXAM: CHEST PAIN TECHNIQUE: Frontal view of the chest. COMPARISON: Chest radiograph 09/03/2024. FINDINGS: Hardware: None. Heart: The heart size is normal. Lungs: No focal consolidation, pleural effusion or pneumothorax. Bones: Degenerative changes are identified within the thoracic spine. RAD/Chest 1 View (Portable) IMPRESSION: Negative Chest. Reading Location: [id number] CC: Dr. Eduard Henley MD; Dr. Robert Mercer MD Fermenter Operator: Signed Normal [facility] Chloride assayOrdered By: ED PROVIDER on 01-22-2025 Chloride [Moles/Vol] 103 mmol/L Normal 98-108 [facility] Comment on above: Performed By: #### L 500.2500, L501.4021, L100.0100 #### [facility] [address] [place], [address] Emergency Department Summary on 01-22-2025 Emergency Department Summary [facility] Medical Records Department [address] [place] [address] Emergency Department Summary 01/22/25 MR#: [id number] Acct: [id number] Name: JOVANY MUÑIZ Rep #: [id number] : 1965 59 From: Robert Mercer MD PCP: Dr. Eduard Henley MD Status:REG ER Location: ED HPI History of Present Illness Chief Complaint: Allergic Reaction Informant: patient and spouse/S.O. Onset/Context/Timin g Onset: Today Context: Sudden Onset Timing: Continuous Current Severity: Moderate Maximum Severity: Moderate Narrative Narrative: 59-year-old male history of CAD OK stent. Seen earlier tonight for atypical back [...] Old myocardial infarction Atherosclerotic heart disease of [place] coronary artery without angina pectoris (04/25/23) Home Medications ???Medication ???Instructions ???Recorded ???Last Taken ???Type aspirin 81 mg tablet,delayed [address] [facility] 7 09/26/23 History release (Adult Low Dose [...] peritoneal signs. (more content not included)... 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 Normal [facility] Eosinophil percentageOrdered By: ED PROVIDER on 01-22-2025 Eosinophils/100 WBC (Bld) 2.4 % Normal 0-5 [facility] Comment on above: Performed By: #### L 500.2500, L501.4021, L100.0100 #### [facility] [address] [place], [address] Erythrocyte distribution wid th ratioOrdered By: ED PROVIDER on 01-22-2025 Erythrocyte distribution width (RBC) [Ratio] 13.0 % Normal 11.6-14.6 [facility] Comment on above: Performed By: #### L 500.2500, L501.4021, L100.0100 #### [facility] [address] [place], [address] Erythrocyte distribution wid th standard deviationOrdered By: ED PROVIDER on 01-22-2025 Erythrocyte distribution width (RBC) [Ratio] 46.8 fl High 35.1-43.9 [facility] Glomerular filtration rate ( GFR) estimation/1.73 sq m using serum, plasma, or whole bOrdered By: ED PROVIDER on 01-22-2025 GFR/1.73 sq M.predicted among non-blacks MDRD (S/P/Bld) [Vol rate/Area] 76 mL/min/{1.73_m2} Normal >60 [facility] Comment on above: mL/min/1.73m2 CKD-EP I Creatinine Equation (2020) Result Comment: mL/m in/1.73m2 CKD-EPI Creatinine Equation (2020) Performed By: #### L 500.2500, L501.4021, L100.0100 #### [facility] [address] [place], [address] Hemoglobin measurementOrdere d By: ED PROVIDER on 01-22-2025 Hemoglobin (Bld) [Mass/Vol] 14.9 g/dL Normal 13.0-16.5 [facility] Comment on above: Performed By: #### L 500.2500, L501.4021, L100.0100 #### [facility] [address] [place], [address] Immature granulocytes/100 WB C Auto (Bld)Ordered By: ED PROVIDER on 01-22-2025 Immature granulocytes/100 WBC (Bld) 0.400 % 0.0-0.9 [facility] Comment on above: IG% - Immature Granu locytes (promyelocytes, myelocytes and metamyelocytes) > 1% indicates that a LEFT SHIFT is Present. L499.0042on 01-22-2025 Trop T High Sen < 6 Normal <=22 [facility] Comment on above: Performed By: #### L 499.0042 #### [facility] [address] [place], [address] L499.0043on 01-22-2025 Trop T High Sen Normal <=22 [facility] Comment on above: Result Comment: PABLITO ENT DISCHARGED Performed By: #### L 500.2500, L501.4021, L100.0100 #### [facility] [address] [place], [address] L501.4021on 01-22-2025 Trop T High Sen < 6 Normal <=22 [facility] Comment on above: Result Comment: Hemo lysis present, Results??could be affected. ?? Performed By: #### L 500.2500, L501.4021, L100.0100 #### [facility] [address] [place], [address] MCV (mean corpuscular volume ) determinationOrdered By: ED PROVIDER on 01-22-2025 MCV (RBC) [Entitic vol] 97.1 fL High 80-94 [facility] Comment on above: Performed By: #### L 500.2500, L501.4021, L100.0100 #### [facility] [address] [place], [address] Mean corpuscular hemoglobin (MCH) determinationOrdered By: ED PROVIDER on 01-22-2025 MCH (RBC) [Entitic mass] 33.3 pg High 27.0-32.0 [facility] Comment on above: Performed By: #### L 500.2500, L501.4021, L100.0100 #### [facility] [address] [place], [address] Mean corpuscular hemoglobin concentration (MCHC) determinationOrdered By: ED PROVIDER on 01-22-2025 MCHC (RBC) [Mass/Vol] 34.3 g/dL Normal 32-36 [facility] Comment on above: Performed By: #### L 500.2500, L501.4021, L100.0100 #### [facility] [address] [place], [address] Mean platelet volume determi nationOrdered By: ED PROVIDER on 01-22-2025 Platelet mean volume (Bld) [Entitic vol] 9.4 fL Normal 6.2-12.0 [facility] Comment on above: Performed By: #### L 500.2500, L501.4021, L100.0100 #### [facility] [address] [place], [address] Monocyte percentageOrdered B y: ED PROVIDER on 01-22-2025 Monocytes/100 WBC (Bld) 10.1 % High 0-10 [facility] Comment on above: Performed By: #### L 500.2500, L501.4021, L100.0100 #### [facility] [address] [place], [address] Neutrophil percentageOrdered By: ED PROVIDER on 01-22-2025 Neutrophils/100 WBC (Bld) 64.2 % Normal 47-70 [facility] Comment on above: Performed By: #### L 500.2500, L501.4021, L100.0100 #### [facility] [address] [place], [address] Nucleated red blood cell per centageOrdered By: ED PROVIDER on 01-22-2025 Nucleated RBC/100 WBC (Bld) [Ratio] 0 % 0-5 [facility] Platelet countOrdered By: ED PROVIDER on 01-22-2025 Platelets (Bld) [#/Vol] 211 10*3/uL Normal 150-450 [facility] Comment on above: Performed By: #### L 500.2500, L501.4021, L100.0100 #### [facility] [address] [place], [address] Potassium measurement (mass/ volume)Ordered By: ED PROVIDER on 01-22-2025 Potassium (Unsp spec) [Mass/Vol] 4.8 mmol/L 3.3-5.1 [facility] Comment on above: Hemolysis present, R esults could be affected. Serum creatinine measurement (mass/volume)Ordered By: ED PROVIDER on 01-22-2025 Creatinine [Mass/Vol] 1.11 mg/dL Normal 0.70-1.20 [facility] Comment on above: Performed By: #### L 500.2500, L501.4021, L100.0100 #### [facility] [address] [place], [address] Serum glucose measurement (m ass/volume)Ordered By: ED PROVIDER on 01-22-2025 Glucose [Mass/Vol] 97 mg/dL Normal 70-99 [facility] Comment on above: Performed By: #### L 500.2500, L501.4021, L100.0100 #### [facility] [address] [place], [address] Serum or plasma calcium randa urement (mass/volume)Ordered By: ED PROVIDER on 01-22-2025 Calcium [Mass/Vol] 9.5 mg/dL Normal 7.6-11.0 [facility] Comment on above: Performed By: #### L 500.2500, L501.4021, L100.0100 #### [facility] [address] [place], [address] Serum or plasma urea nitroge n measurement (mass/volume)Ordered By: ED PROVIDER on 01-22-2025 Urea nitrogen [Mass/Vol] 12 mg/dL Normal 4-19 [facility] Comment on above: Performed By: #### L 500.2500, L501.4021, L100.0100 #### [facility] [address] [place], [address] Sodium levelOrdered By: ED Madisyn LEIJA on 01-22-2025 Sodium [Moles/Vol] 139 mmol/L Normal 133-145 [facility] Comment on above: Performed By: #### L 500.2500, L501.4021, L100.0100 #### [facility] [address] [place], [address] Troponin T.cardiac [Mass/vol ume] in Serum or Plasma by High sensitivity methodOrdered By: Robert Mercer on 01-22-2025 Troponin T.cardiac High sensitivity method [Mass/Vol] < 6 ng/L <22 [facility] Comment on above: Hemolysis present, R esults could be affected. White blood cell (WBC) count Ordered By: ED PROVIDER on 01-22-2025 WBC (Bld) [#/Vol] 5.1 10*3/uL Normal 4.4-11.0 [facility] Comment on above: Performed By: #### L 500.2500, L501.4021, L100.0100 #### [facility] [address] [place], [address] Urgent Care Visit Reporton 0 11-09-2024 Urgent Care Visit Report [facility] [address] [place], [place] [address] OFFICE VISIT Date of Service: 11/09/24 MR#: [id number] Acct: [id number] Name: JOVANY MUÑIZ Rep #: [id number] : 1965 Provider: FANTA Driscoll Age/Sex: 59/M Location: [facility] Status: Signed Intake Vital Signs 09/03/24 00:23 [...] mg PO QDAY 08/06/24 10/27/24 His tory [facility] Medical History Wears partial dentures High cholesterol Heartburn Gastric reflux History of diverticulitis Former smoker History of heart attack History of echocardiogram History of stress test Hypertension Cardiology follow-up encounter Sigmoid diverticulitis History of coronary artery disease Presence of stent in coronary artery (04/25/23) Essential hypertension HLD (hyperlipidemia) Old 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 Eduard Henley MD Status: REG CLI Referring Dr: Mitchell Dubois NP [employer]-C Sex: M C Stress Test Report Exercise [...] 11/03/241806 Date _ Jose Lockwood MD CC: [employer]-C Mitchell Dubois; Dr. 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, [address] 89-CO-Udbsapc DOrdered By: Cliff Henley on 09-28-2024 Vitamin D 25-Hydroxy 35.3 ng/mL [facility] Comment on above: Vitamin D 25(OH) Sta tus Range Deficiency <20 ng/mL (50nmol/L) Insufficiency 20 - 30 ng/mL (50 - 75 nmol/L) Sufficiency 30 - 100 ng/mL (75 - 250 nmol/L) Toxicity >100 ng/mL (>250 nmol/L) Albumin to globulin ratioOrd ered By: Eduard Henley on 09-28-2024 Albumin/Globulin [Mass ratio] 0.8 {ratio} Low 0.9-2.4 [facility] Bilirubin, totalOrdered By: Eduard Henley on 09-28-2024 Bilirubin [Mass/Vol] 0.50 mg/dL 0.20-1.00 [facility] Comment on above: For patients on eltr ombopag therapy, use of Dimension [place] TBIL is not recommended. Blood urea nitrogen (BUN)/cr eatinine ratioOrdered By: Eduard Henley on 09-28-2024 Urea nitrogen/Creatinine [Mass ratio] 15.0 mg/mg 10-20 [facility] Carbon dioxide measurementOr dered By: Eduard Henley on 09-28-2024 CO2 [Moles/Vol] 28.0 mmol/L 21.0-32.0 [facility] Chloride measurementOrdered By: Eduard Henley on 09-28-2024 Chloride [Moles/Vol] 104 mmol/L 98-107 [facility] Comprehensive Metabolic Prof ilon 09-28-2024 Albumin [Mass/Vol] 3.7 g/dL Normal 3.2-5.0 [facility] Comment on above: Order Comment: Order Date: 09/28/24 Order Info: [id number] - CMP Order Info: [id number] - LIPID Order Info: [id number] - PSA Performed By: #### L 501.9910, L506.1000, L500.4050, L503.0105, L500.4100 #### [facility] [address] [place], [address] Albumin/Globulin [Mass ratio] 0.8 {ratio} Low 0.9-2.4 [facility] Comment on above: Order Comment: Order Date: 09/28/24 Order Info: 0786-1 - CMP Order Info: [id number] - LIPID Order Info: 2851 - PSA Performed By: #### L 501.9910, L506.1000, L500.4050, L503.0105, L500.4100 #### [facility] [address] [place], [address] ALK P 66 U/L Normal 45-117 [facility] Comment on above: Order Comment: Order Date: 09/28/24 Order Info: [id number] - CMP Order Info: [id number] - LIPID Order Info: [id number] - PSA Performed By: #### L 501.9910, L506.1000, L500.4050, L503.0105, L500.4100 #### [facility] [address] [place], [address] ALT [Catalytic activity/Vol] 38 U/L Normal 16-61 [facility] Comment on above: Order Comment: Order Date: 09/28/24 Order Info: 0786 - CMP Order Info: [id number] - LIPID Order Info: [id number] - PSA Performed By: #### L 501.9910, L506.1000, L500.4050, L503.0105, L500.4100 #### [facility] [address] [place], [address] AST [Catalytic activity/Vol] 29 U/L Normal 15-37 [facility] Comment on above: Order Comment: Order Date: 09/28/24 Order Info: [id number] - CMP Order Info: [id number] - LIPID Order Info: [id number] - PSA Performed By: #### L 501.9910, L506.1000, L500.4050, L503.0105, L500.4100 #### [facility] [address] [place], [address] Bilirubin [Mass/Vol] 0.50 mg/dL Normal 0.20-1.00 [facility] Comment on above: Order Comment: Order Date: 09/28/24 Order Info: [id number] - CMP Order Info: - LIPID Order Info: [id number] - PSA Result Comment: For patients on eltrombopag therapy, use of Dimension [place] TBIL is not recommended. Performed By: #### L 501.9910, L506.1000, L500.4050, L503.0105, L500.4100 #### [facility] [address] [place], [address] BUN/CRE 15.0 RATIO Normal 10-20 [facility] Comment on above: Order Comment: Order Date: 09/28/24 Order Info: [id number] - CMP Order Info: - LIPID Order Info: [id number] - PSA Performed By: #### L 501.9910, L506.1000, L500.4050, L503.0105, L500.4100 #### [facility] [address] [place], [address] CA,Total 9.9 mg/dL Normal 8.5-10.1 [facility] Comment on above: Order Comment: Order Date: 09/28/24 Order Info: [id number] - CMP Order Info: - LIPID Order Info: [id number] - PSA Performed By: #### L 501.9910, L506.1000, L500.4050, L503.0105, L500.4100 #### [facility] [address] [place], [address] Chloride [Moles/Vol] 104 mmol/L Normal 98-107 [facility] Comment on above: Order Comment: Order Date: 09/28/24 Order Info: [id number] - CMP Order Info: [id number] - LIPID Order Info: [id number] - PSA Performed By: #### L 501.9910, L506.1000, L500.4050, L503.0105, L500.4100 #### [facility] [address] [place], [address] CO2 [Moles/Vol] 28.0 mmol/L Normal 21.0-32.0 [facility] Comment on above: Order Comment: Order Date: 09/28/24 Order Info: 785- - CMP Order Info: - LIPID Order Info: 1 - PSA Performed By: #### L 501.9910, L506.1000, L500.4050, L503.0105, L500.4100 #### [facility] [address] [place], [address] Creatinine [Mass/Vol] 1.20 mg/dL Normal 0.70-1.30 [facility] Comment on above: Order Comment: Order Date: 09/28/24 Order Info: [id number] - CMP Order Info: - LIPID Order Info: [id number] - PSA Result Comment: The validity of the calculated GFR GFRAA in patients over 70 years has not been determined. Clinical correlation is essential. Performed By: #### L 501.9910, L506.1000, L500.4050, L503.0105, L500.4100 #### [facility] [address] [place], [address] EST GFR - AA 79 mL/min Normal >60 [facility] Comment on above: Order Comment: Order Date: 09/28/24 Order Info: [id number] - CMP Order Info: - LIPID Order Info: [id number] - PSA Result Comment: Afri can [place] GFR Calc Performed By: #### L 501.9910, L506.1000, L500.4050, L503.0105, L500.4100 #### [facility] [address] [place], [address] GAP 5 Normal 5-15 [facility] Comment on above: Order Comment: Order Date: 09/28/24 Order Info: [id number] - CMP Order Info: - LIPID Order Info: [id number] - PSA Performed By: #### L 501.9910, L506.1000, L500.4050, L503.0105, L500.4100 #### [facility] [address] [place], [address] GFR/1.73 sq M.predicted among non-blacks MDRD (S/P/Bld) [Vol rate/Area] 65 mL/min/{1.73_m2} Normal >60 [facility] Comment on above: Order Comment: Order Date: 09/28/24 Order Info: 07 - CMP Order Info: - LIPID Order Info: [id number] - PSA Result Comment: Non- GFR Calc Performed By: #### L 501.9910, L506.1000, L500.4050, L503.0105, L500.4100 #### [facility] [address] [place], [address] Globulin (S) [Mass/Vol] 4.8 g/dL High 2.2-4.2 [facility] Comment on above: Order Comment: Order Date: 09/28/24 Order Info: [id number] - CMP Order Info: [id number] - LIPID Order Info: [id number] - PSA Performed By: #### L 501.9910, L506.1000, L500.4050, L503.0105, L500.4100 #### [facility] [address] [place], [address] Glucose [Mass/Vol] 105 mg/dL Normal 74-106 [facility] Comment on above: Order Comment: Order Date: 09/28/24 Order Info: 0786 - CMP Order Info: [id number] - LIPID Order Info: [id number] - PSA Result Comment: Fast ing Glucose result from 100 to 125 mg/dL suggests IMPAIRED HOMEOSTASIS per A.D.A. criteria. Performed By: #### L 501.9910, L506.1000, L500.4050, L503.0105, L500.4100 #### [facility] [address] [place], [address] Potassium [Moles/Vol] 4.4 mmol/L Normal 3.5-5.1 [facility] Comment on above: Order Comment: Order Date: 09/28/24 Order Info: 0786- - CMP Order Info: [id number] - LIPID Order Info: [id number] - PSA Performed By: #### L 501.9910, L506.1000, L500.4050, L503.0105, L500.4100 #### [facility] [address] [place], [address] Sodium [Moles/Vol] 138 mmol/L Normal 136-145 [facility] Comment on above: Order Comment: Order Date: 09/28/24 Order Info: 07 - CMP Order Info: [id number] - LIPID Order Info: [id number] - PSA Performed By: #### L 501.9910, L506.1000, L500.4050, L503.0105, L500.4100 #### [facility] [address] [place], [address] T PROT 8.5 g/dL High 6.4-8.2 [facility] Comment on above: Order Comment: Order Date: 09/28/24 Order Info: 0786- - CMP Order Info: [id number] - LIPID Order Info: [id number] - PSA Performed By: #### L 501.9910, L506.1000, L500.4050, L503.0105, L500.4100 #### [facility] [address] [place], [address] Urea nitrogen [Mass/Vol] 18 mg/dL Normal 7-18 [facility] Comment on above: Order Comment: Order Date: 09/28/24 Order Info: 0786- - CMP Order Info: [id number] - LIPID Order Info: [id number] - PSA Performed By: #### L 501.9910, L506.1000, L500.4050, L503.0105, L500.4100 #### [facility] [place], [address] Estimated glomerular filtrat ion rate (GFR) AmericanOrdered By: Eduard Henley on 09-28-2024 Estimated GFR (MDRD) Amer 79 mL/min >60 [facility] Comment on above: GFR Calc Glomerular filtration rate ( GFR) estimationOrdered By: Eduard Henley on 09-28-2024 Estimated GFR (MDRD) Non-Af Amer 65 mL/min >60 [facility] Comment on above: Non- GFR Calc GFR/1.73 sq M.predicted among non-blacks MDRD (S/P/Bld) [Vol rate/Area] 65 mL/min/{1.73_m2} >60 [facility] Comment on above: Non- GFR Calc Glucose measurementOrdered B y: Eduard Henley on 09-28-2024 Glucose [Mass/Vol] 105 mg/dL 74-106 [facility] Comment on above: Fasting Glucose resu lt from 100 to 125 mg/dL suggests IMPAIRED HOMEOSTASIS per A.D.A. criteria. High density lipoprotein (HD L) measurementOrdered By: Eduard Henley on 09-28-2024 Cholesterol in HDL [Mass/Vol] 81 mg/dL >40 [facility] Comment on above: The drugs N-Acetylcy steine and Metamizole may falsely depress this assay. Reference Range HDL <40 mg/dL Low HDL Cholesterol HDL >or= 60 mg/dL High HDL Cholesterol Laboratory - Chemistry and C hemistry - challengeOrdered By: Eduard Henley on 09-28-2024 AST [Catalytic activity/Vol] 29 U/L 15-37 [facility] Lipid Profileon 09-28-2024 Cholesterol [Mass/Vol] 245 mg/dL High 200 [facility] Comment on above: Order Comment: Order Date: 09/28/24 Order Info: [id number] - CMP Order Info: [id number] - LIPID Order Info: [id number] - PSA Result Comment: <200 mg/dL Desirable 200-240 mg/dL Borderline >240 mg/dL High Risk Performed By: #### L 501.9910, L506.1000, L500.4050, L503.0105, L500.4100 #### [facility] [address] [place], [address] Cholesterol in HDL [Mass/Vol] 81 mg/dL Normal [facility] Comment on above: Order Comment: Order Date: 09/28/24 Order Info: [id number] - CMP Order Info: [id number] - LIPID Order Info: [id number] - PSA Result Comment: The drugs N-Acetylcysteine and Metamizole may falsely depress this assay. Reference Range HDL <40 mg/dL Low HDL Cholesterol HDL >or= 60 mg/dL High HDL Cholesterol Performed By: #### L 501.9910, L506.1000, L500.4050, L503.0105, L500.4100 #### [facility] [address] [place], [address] Cholesterol in LDL [Mass/Vol] 144 mg/dL High 0-130 [facility] Comment on above: Order Comment: Order Date: 09/28/24 Order Info: [id number] - CMP Order Info: [id number] - LIPID Order Info: [id number] - PSA Performed By: #### L 501.9910, L506.1000, L500.4050, L503.0105, L500.4100 #### [facility] [address] [place], [address] Cholesterol in VLDL [Mass/Vol] 20 mg/dL Normal 5-40 [facility] Comment on above: Order Comment: Order Date: 09/28/24 Order Info: [id number]- - CMP Order Info: [id number] - LIPID Order Info: [id number] - PSA Performed By: #### L 501.9910, L506.1000, L500.4050, L503.0105, L500.4100 #### [facility] [address] [place], [address] Triglyceride [Mass/Vol] 101 mg/dL Normal [facility] Comment on above: Order Comment: Order Date: 09/28/24 Order Info: [id number] - CMP Order Info: [id number] - LIPID Order Info: [id number] - PSA Result Comment: The drugs N-Acetylcysteine and Metamizole may falsely depress this assay. Serum Triglycerides Reference Interval Normal <150 mg/dL Borderline high 150 - 199 mg/dL High 200 - 499 mg/dL Very High > or = 500 mg/dL Performed By: #### L 501.9910, L506.1000, L500.4050, L503.0105, L500.4100 #### [facility] [address] [place], [address] Low density lipoprotein (LDL ) cholesterol measurementOrdered By: Eduard Henley on 09-28-2024 Cholesterol in LDL [Mass/Vol] 144 mg/dL High 0-130 [facility] PSA,Total - Annual Screenon 09-28-2024 PSA,TOT SCREEN 0.78 ng/mL Normal 0.00-4.00 [facility] Comment on above: Order Comment: Order Date: 09/28/24Order Info: [id number] - CMPOrder Info: [id number] - LIPIDOrder Info: [id number] - PSA Result Comment: This test was performed using the TPSA assay method for the DotProduct chemistry system. Values obtained with different assay methods cannot be used interchangably. When changing PSA assays in the course of monitoring a patient, additional sequential testing should be carried out to confirm baseline values. Performed By: #### L 501.9910, L506.1000, L500.4050, L503.0105, L500.4100 ####[facility] [address] [facility] [place], [place], [id number] Potassium measurementOrdered By: Eduard Henley on 09-28-2024 Potassium [Moles/Vol] 4.4 mmol/L 3.5-5.1 [facility] Screening prostate specific antigen (PSA) measurementOrdered By: Eduard Henley on 09-28-2024 Prostate Specific Antigen Screen 0.78 ng/mL 0.00-4.00 [facility] Comment on above: This test was [...] [Moles/Vol] 5 mmol/L 5-15 [facility] Serum globulin measurementOr dered By: Eduard Henley on 09-28-2024 Globulin (S) [Mass/Vol] 4.8 g/dL High 2.2-4.2 [facility] Serum or plasma alanine pedraza otransferase (ALT) measurementOrdered By: Eduard Henley on 09-28-2024 ALT [Catalytic activity/Vol] 38 U/L 16-61 [facility] Serum or plasma albumin randa urement (mass/volume)Ordered By: Eduard Henley on 09-28-2024 Albumin [Mass/Vol] 3.7 g/dL 3.2-5.0 [facility] Serum or plasma alkaline saw sphatase measurementOrdered By: Eduard Henley on 09-28-2024 ALP [Catalytic activity/Vol] 66 U/L 45-117 [facility] Serum or plasma calcium randa urement (mass/volume)Ordered By: Eduard Henley on 09-28-2024 Calcium [Mass/Vol] 9.9 mg/dL 8.5-10.1 [facility] Serum or plasma cholesterol measurement (mass/volume)Ordered By: Eduard Henley on 09-28-2024 Cholesterol [Mass/Vol] 245 mg/dL High <200 [facility] Comment on above: <200 mg/dL Desirable 200-240 mg/dL Borderline >240 mg/dL High Risk Serum or plasma creatinine m easurement (mass/volume)Ordered By: Eduard Henley on 09-28-2024 Creatinine [Mass/Vol] 1.20 mg/dL 0.70-1.30 [facility] Comment on above: The validity of the calculated GFR & GFRAA in patients over 70 years has not been determined. Clinical correlation is essential. Serum or plasma urea nitroge n measurement (mass/volume)Ordered By: Eduard Henley on 09-28-2024 Urea nitrogen [Mass/Vol] 18 mg/dL 7-18 [facility] Sodium levelOrdered By: Rubina surendraher Henley on 09-28-2024 Sodium [Moles/Vol] 138 mmol/L 136-145 [facility] Total proteinOrdered By: Mukesh juanher Henley on 09-28-2024 Protein [Mass/Vol] 8.5 g/dL High 6.4-8.2 [facility] Triglycerides measurementOrd ered By: Eduard Henley on 09-28-2024 Triglyceride [Mass/Vol] 101 mg/dL <199 [facility] Comment on above: The drugs N-Acetylcy steine and Metamizole may falsely depress this assay.Serum Triglycerides Reference Interval Normal <150 mg/dL Borderline high 150 - 199 mg/dL High 200 - 499 mg/dL Very High > or = 500 mg/dL Very low density lipoprotein (VLDL) cholesterol measurementOrdered By: Eduard Henley on 09-28-2024 Very low density lipoprotein (VLDL) cholesterol measurement 20 mg/dL 5-40 [facility] VLDL Cholesterol 20 mg/dL 5-40 [facility] Vitamin B12on 09-28-2024 Cobalamin (Vitamin B12) [Mass/Vol] 337 pg/mL Normal 211-911 [facility] Comment on above: Order Comment: Order Date: 09/28/24Order Info: [id number] - K51Pchbv Info: [id number] - VITD25 Performed By: #### L 501.9910, L506.1000, L500.4050, L503.0105, L500.4100 ####[facility] [address] [facility] [place], [address] Vitamin B12 measurementOrder ed By: Eduard Henley on 09-28-2024 Cobalamin (Vitamin B12) [Mass/Vol] 337 pg/mL 211-911 [facility] 12 Lead EKGon 09-03-2024 12 Lead EKG [facility] Cardiovascular Services [address] [place] [address] 12 Lead EKG 09/03/24 0023 MR#: [id number] Acct: [id number] Name: JOVANY MUÑIZ Rep #: [id number] : 1965 58 From: Eileen Ray MD [...] Abnormal ECG Confirmed by FLOR SY, GUANAKO ([id number]), editor dictionary RUBI ROMERO ([id number]) on 09/07/2024 7:16:39 AM Referred By: TB Confirmed By: GUANAKO RAY MD 09/07/24 0716 Date Eileen Ray MD CC: Dr. Eduard Henley MD; Dr. Jesus Romero, Signed Normal [facility] Absolute neutrophil countOrd ered By: Jesus Romero on 09-03-2024 Neutrophils (Bld) [#/Vol] 3.1 10*3/uL 2.0-7.7 [facility] BNP (brain natriuretic pepti de measurement)Ordered By: Jesus Romero on 09-03-2024 Natriuretic peptide B (Bld) [Mass/Vol] 7.1 pg/mL 0-100 [facility] BNP,B-Type NATRIURETIC PEPTI Torrey 09-03-2024 Natriuretic peptide B (Bld) [Mass/Vol] 7.1 pg/mL Normal 0-100 [facility] Comment on above: Performed By: #### L 501.5425, L501.5200, L100.0100, L503.6620, L500.2500, L501.9520 ####[facility] [address] [place], [address] Basic Metabolic Profile (BMP )on 09-03-2024 BUN/CRE 14.0 RATIO Normal 10-20 [facility] Comment on above: Order Comment: 1Y Performed By: #### L 501.5425, L501.5200, L100.0100, L503.6620, L500.2500, L501.9520 ####[facility] [address] [place], [address] CA,Total 9.3 mg/dL Normal 8.5-10.1 [facility] Comment on above: Order Comment: 1Y Performed By: #### L 501.5425, L501.5200, L100.0100, L503.6620, L500.2500, L501.9520 ####[facility] [address] [place], [address] Chloride [Moles/Vol] 104 mmol/L Normal 98-107 [facility] Comment on above: Order Comment: 1Y Performed By: #### L 501.5425, L501.5200, L100.0100, L503.6620, L500.2500, L501.9520 ####[facility] [address] [place], [address] CO2 [Moles/Vol] 26.0 mmol/L Normal 21.0-32.0 [facility] Comment on above: Order Comment: 1Y Performed By: #### L 501.5425, L501.5200, L100.0100, L503.6620, L500.2500, L501.9520 ####[facility] [address] [place], [address] Creatinine [Mass/Vol] 1.29 mg/dL Normal 0.70-1.30 [facility] Comment on above: Order Comment: 1Y Result Comment: The validity of the calculated GFR GFRAA in patients over 70 years has not been determined. Clinical correlation is essential. Performed By: #### L 501.5425, L501.5200, L100.0100, L503.6620, L500.2500, L501.9520 ####[facility] [address] [place], [address] ECRCL 73.11 ml/min Normal [facility] Comment on above: Order Comment: 1Y Performed By: #### L 501.5425, L501.5200, L100.0100, L503.6620, L500.2500, L501.9520 ####[facility] [address] [place], [address] EST GFR - AA 73 mL/min Normal >60 [facility] Comment on above: Order Comment: 1Y Result Comment: Afri can [place] GFR Calc Performed By: #### L 501.5425, L501.5200, L100.0100, L503.6620, L500.2500, L501.9520 ####[facility] [address] [place], [address] GAP 8 Normal 5-15 [facility] Comment on above: Order Comment: 1Y Performed By: #### L 501.5425, L501.5200, L100.0100, L503.6620, L500.2500, L501.9520 ####[facility] [address] [place], [address] GFR/1.73 sq M.predicted among non-blacks MDRD (S/P/Bld) [Vol rate/Area] 60 mL/min/{1.73_m2} Normal >60 [facility] Comment on above: Order Comment: 1Y Result Comment: Non- GFR Calc Performed By: #### L 501.5425, L501.5200, L100.0100, L503.6620, L500.2500, L501.9520 ####[facility] [address] [place], [address] Glucose [Mass/Vol] 102 mg/dL Normal 74-106 [facility] Comment on above: Order Comment: 1Y Result Comment: Fast ing Glucose result from 100 to 125 mg/dL suggests IMPAIRED HOMEOSTASIS per A.D.A. criteria. Performed By: #### L 501.5425, L501.5200, L100.0100, L503.6620, L500.2500, L501.9520 ####[facility] [address] [place], [address] Potassium [Moles/Vol] 3.8 mmol/L Normal 3.5-5.1 [facility] Comment on above: Order Comment: 1Y Result Comment: Slig ht Hemolysis, Result may be falsely increased. Performed By: #### L 501.5425, L501.5200, L100.0100, L503.6620, L500.2500, L501.9520 ####[facility] [address] [place], [address] Sodium [Moles/Vol] 138 mmol/L Normal 136-145 [facility] Comment on above: Order Comment: 1Y Performed By: #### L 501.5425, L501.5200, L100.0100, L503.6620, L500.2500, L501.9520 ####[facility] [address] [place], [address] Urea nitrogen [Mass/Vol] 18 mg/dL Normal 7-18 [facility] Comment on above: Order Comment: 1Y Performed By: #### L 501.5425, L501.5200, L100.0100, L503.6620, L500.2500, L501.9520 ####[facility] [address] [place], [address] Basophil percentageOrdered B y: Jesus Romero on 09-03-2024 Basophils/100 WBC (Bld) 1.2 % High 0-1 [facility] Blood urea nitrogen (BUN)/cr eatinine ratioOrdered By: Jesus Romero on 09-03-2024 Urea nitrogen/Creatinine [Mass ratio] 14.0 mg/mg 10-20 [facility] CBC W/Diff, Automatedon 01-2 Absolute Lymph 1.72 X10 3/uL Normal 0.83-4.51 [facility] Comment on above: Performed By: #### L 501.5425, L501.5200, L100.0100, L503.6620, L500.2500, L501.9520 ####[facility] [address] [place], [address] Absolute Neut 3.1 X10 3/uL Normal 2.0-7.7 [facility] Comment on above: Performed By: #### L 501.5425, L501.5200, L100.0100, L503.6620, L500.2500, L501.9520 ####[facility] [address] [place], [address] Basophils/100 WBC (Bld) 1.2 % High 0-1 [facility] Comment on above: Performed By: #### L 501.5425, L501.5200, L100.0100, L503.6620, L500.2500, L501.9520 ####[facility] [address] [place], [address] Eosinophils/100 WBC (Bld) 3.3 % Normal 0-5 [facility] Comment on above: Performed By: #### L 501.5425, L501.5200, L100.0100, L503.6620, L500.2500, L501.9520 ####[facility] [address] [place], [address] Erythrocyte distribution width (RBC) [Ratio] 13.2 % Normal 11.6-14.6 [facility] Comment on above: Performed By: #### L 501.5425, L501.5200, L100.0100, L503.6620, L500.2500, L501.9520 ####[facility] [address] [place], [address] Hematocrit (Bld) [Volume fraction] 39.8 % Low 40-54 [facility] Comment on above: Performed By: #### L 501.5425, L501.5200, L100.0100, L503.6620, L500.2500, L501.9520 ####[facility] [address] [place], [address] Hemoglobin (Bld) [Mass/Vol] 13.4 g/dL Normal 13.0-16.5 [facility] Comment on above: Performed By: #### L 501.5425, L501.5200, L100.0100, L503.6620, L500.2500, L501.9520 ####[facility] [address] [place], [address] IG% 0.500 Normal 0.0-0.9 [facility] Comment on above: Result Comment: IG% - Immature Granulocytes (promyelocytes, myelocytes and metamyelocytes) > 1% indicates that a LEFT SHIFT is Present. Performed By: #### L 501.5425, L501.5200, L100.0100, L503.6620, L500.2500, L501.9520 ####[facility] [address] [place], [address] Lymphocytes/100 WBC (Bld) 30.3 % Normal 19-41 [facility] Comment on above: Performed By: #### L 501.5425, L501.5200, L100.0100, L503.6620, L500.2500, L501.9520 ####[facility] [address] [place], [address] MCH (RBC) [Entitic mass] 33.0 pg High 27.0-32.0 [facility] Comment on above: Performed By: #### L 501.5425, L501.5200, L100.0100, L503.6620, L500.2500, L501.9520 ####[facility] [address] [place], [address] MCHC (RBC) [Mass/Vol] 33.7 g/dL Normal 32-36 [facility] Comment on above: Performed By: #### L 501.5425, L501.5200, L100.0100, L503.6620, L500.2500, L501.9520 ####[facility] [address] [place], [address] MCV (RBC) [Entitic vol] 98.0 fL High 80-94 [facility] Comment on above: Performed By: #### L 501.5425, L501.5200, L100.0100, L503.6620, L500.2500, L501.9520 ####[facility] [address] [place], [address] Monocytes/100 WBC (Bld) 10.9 % High 0-10 [facility] Comment on above: Performed By: #### L 501.5425, L501.5200, L100.0100, L503.6620, L500.2500, L501.9520 ####[facility] [address] [place], [address] Neutrophils/100 WBC (Bld) 53.8 % Normal 47-70 [facility] Comment on above: Performed By: #### L 501.5425, L501.5200, L100.0100, L503.6620, L500.2500, L501.9520 ####[facility] [address] [place], [address] Nucleated RBC (Bld) [#/Vol] 0 10*3/uL Normal 0-5 [facility] Comment on above: Performed By: #### L 501.5425, L501.5200, L100.0100, L503.6620, L500.2500, L501.9520 ####[facility] [address] [place], [address] Platelet mean volume (Bld) [Entitic vol] 10.0 fL Normal 6.2-12.0 [facility] Comment on above: Performed By: #### L 501.5425, L501.5200, L100.0100, L503.6620, L500.2500, L501.9520 ####[facility] [address] [place], [address] Platelets (Bld) [#/Vol] 236 10*3/uL Normal 150-450 [facility] Comment on above: Performed By: #### L 501.5425, L501.5200, L100.0100, L503.6620, L500.2500, L501.9520 ####[facility] [address] [place], [address] RBC (Bld) [#/Vol] 4.06 10*6/uL Low 4.6-6.2 [facility] Comment on above: Performed By: #### L 501.5425, L501.5200, L100.0100, L503.6620, L500.2500, L501.9520 ####[facility] [address] [place], [address] RDW SD 47.3 fl High 35.1-43.9 [facility] Comment on above: Performed By: #### L 501.5425, L501.5200, L100.0100, L503.6620, L500.2500, L501.9520 ####[facility] [address] [place], [address] WBC (Bld) [#/Vol] 5.7 10*3/uL Normal 4.4-11.0 [facility] Comment on above: Performed By: #### L 501.5425, L501.5200, L100.0100, L503.6620, L500.2500, L501.9520 ####[facility] [address] [place], [address] Carbon dioxide measurementOr dered By: Jesus Romero on 09-03-2024 CO2 [Moles/Vol] 26.0 mmol/L 21.0-32.0 [facility] Chest PA and Lateralon 09-03 Chest PA and Lateral [facility] Imaging Services [address] [place] [address] Chest PA and Lateral MR#: [id number] Acct: [id number] Name: JOVANY MUÑIZ Rep #: [id number] : 1965 M 58 From: Layne Suh MD PCP: Dr. Eduard Henley MD Status: REG ER Study: Chest PA and Lateral Date of Exam: 09/03/24 Exam# [id number] Ordering Dr: Jesus Romero DO -[id number] STUDY: X-RAY CHEST REASON FOR EXAM: [...] Eduard Henley MD; Dr. 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 Performed By: #### L 300.8000 #### [facility] [address] [place], [address] D-dimer measurement for deep venous thrombosisOrdered By: Jesus Romero on 09-03-2024 D-Dimer Quantitative (PE/DVT) 0.44 FEU/ug/m 0.27-0.49 [facility] Comment on above: NORMAL D-Dimer level (<0.50) indicates no DVT or PE. Emergency Department Summary on 09-03-2024 Emergency Department Summary [facility] Medical Records Department [address] [place] [address] Emergency Department Summary 09/03/24 MR#: [id number] Acct: [id number] Name: JOVANY MUÑIZ Rep #: [id number] : 1965 58 From: Jesus Romero DO [...] strenuous. 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 Normal [facility] Eosinophil percentageOrdered By: Jesus Romero on 09-03-2024 Eosinophils/100 WBC (Bld) 3.3 % 0-5 [facility] Erythrocyte distribution wid th ratioOrdered By: Jesus Romero on 09-03-2024 Erythrocyte distribution width (RBC) [Ratio] 13.2 % 11.6-14.6 [facility] Erythrocyte distribution wid th standard deviationOrdered By: Jesus Romero on 09-03-2024 Erythrocyte distribution width (RBC) [Entitic vol] 47.3 fL High 35.1-43.9 [facility] Estimated glomerular filtrat ion rate (GFR) AmericanOrdered By: Jesus Romero on 09-03-2024 Estimated GFR (MDRD) Amer 73 mL/min >60 [facility] Comment on above: GFR Calc Estimation of creatinine liudmila aranceOrdered By: Jesus Romero on 09-03-2024 Estimated Creatinine Clearance Calc 73.11 ml/min [facility] Glomerular filtration rate ( GFR) estimationOrdered By: Jesus Romero on 09-03-2024 Estimated GFR (MDRD) Non-Af Amer 60 mL/min >60 [facility] Comment on above: Non- GFR Calc Glucose measurementOrdered B y: Jesus Romero on 09-03-2024 Glucose [Mass/Vol] 102 mg/dL 74-106 [facility] Comment on above: Fasting Glucose resu lt from 100 to 125 mg/dL suggests IMPAIRED HOMEOSTASIS per A.D.A. criteria. Hematocrit Auto (Bld) [Volum e fraction]Ordered By: Jesus Romero on 09-03-2024 Hematocrit (Bld) [Volume fraction] 39.8 % Low 40-54 [facility] Hemoglobin measurementOrdere d By: Jesus Romero on 09-03-2024 Hemoglobin (Bld) [Mass/Vol] 13.4 g/dL 13.0-16.5 [facility] Immature granulocytes/100 WB C Auto (Bld)Ordered By: Jesus Romero on 09-03-2024 Immature granulocytes/100 WBC (Bld) 0.500 % 0.0-0.9 [facility] Comment on above: IG% - Immature Granu locytes (promyelocytes, myelocytes and metamyelocytes) > 1% indicates that a LEFT SHIFT is Present. Influenza virus A and B and SARS-CoV-2 (COVID-19) and Respiratory syncytial virus RNAOrdered By: Jesus Romero on 09-03-2024 SARS-CoV-2 (COVID-19) RNA LINDSAY+probe Ql (Unsp spec) [facility] L501.4020on 09-03-2024 TROPONIN-I HS 6 pg/mL Normal 3.0-78.0 [facility] Comment on above: Order Comment: 2 Result Comment: Plea se Note: New Test Units and Gender Specific Reference Ranges. For more information see Policy Stat Procedure [place] High Sensitivity Troponin (TNIH) and attachments. Performed By: #### L 500.2500, L501.4021, L100.0100 #### [facility] [address] [place], [address] L501.5425on 09-03-2024 TROPONIN-I HS 5 pg/mL Normal 3.0-78.0 [facility] Comment on above: Order Comment: 1Y Result Comment: Plea se Note: New Test Units and Gender Specific Reference Ranges. For more information see Policy Stat Procedure [place] High Sensitivity Troponin (TNIH) and attachments. Performed By: #### L 501.5425, L501.5200, L100.0100, L503.6620, L500.2500, L501.9520 ####[facility] [address] [place], [address] Lymphocytes Auto (Unsp spec) [#/Vol]Ordered By: Jesus Romero on 09-03-2024 Lymphocytes (Bld) [#/Vol] 1.72 10*3/uL 0.83-4.51 [facility] Lymphocytes/100 WBC Auto (Un sp spec)Ordered By: Jesus Romero on 09-03-2024 Lymphocytes/100 WBC (Bld) 30.3 % 19-41 [facility] M100.678on 09-03-2024 M100.678 Pending SARS-CoV-2 (COVID 19) Negative INFLUENZA A Negative INFLUENZA B Negative RSV PCR Negative Normal [facility] Comment on above: Performed By: #### L 500.2500, L501.4021, L100.0100 #### [facility] [address] [place], [address] MCV (mean corpuscular volume ) determinationOrdered By: Jesus Romero on 09-03-2024 MCV (RBC) [Entitic vol] 98.0 fL High 80-94 [facility] Magnesiumon 09-03-2024 Magnesium [Mass/Vol] 2.4 mg/dL Normal 1.6-2.6 [place] [facility] Comment on above: Order Comment: 1Y Result Comment: Slig ht Hemolysis, Result may be falsely increased. Performed By: #### L 501.5425, L501.5200, L100.0100, L503.6620, L500.2500, L501.9520 ####[facility] [id number] [place], [address] Magnesium measurementOrdered By: Jesus Romero on 09-03-2024 Magnesium [Mass/Vol] 2.4 mg/dL 1.6-2.6 [facility] Comment on above: Slight Hemolysis, Re sult may be falsely increased. Mean corpuscular hemoglobin (MCH) determinationOrdered By: Jesus Romero on 09-03-2024 MCH (RBC) [Entitic mass] 33.0 pg High 27.0-32.0 [facility] Mean corpuscular hemoglobin concentration (MCHC) determinationOrdered By: Jesus Romero on 09-03-2024 MCHC (RBC) [Mass/Vol] 33.7 g/dL 32-36 [facility] Mean platelet volume determi nationOrdered By: Jesus Romero on 09-03-2024 Platelet mean volume (Bld) [Entitic vol] 10.0 fL 6.2-12.0 [facility] Monocyte percentageOrdered B y: Jesus Romero on 09-03-2024 Monocytes/100 WBC (Bld) 10.9 % High 0-10 [facility] Neutrophil percentageOrdered By: Jesus Romero on 09-03-2024 Neutrophils/100 WBC (Bld) 53.8 % 47-70 [facility] Nucleated red blood cell per centageOrdered By: Jesus Romero on 09-03-2024 Nucleated RBC/100 WBC (Bld) [Ratio] 0 % 0-5 [facility] Platelet countOrdered By: Imtiaz Romero on 09-03-2024 Platelets (Bld) [#/Vol] 236 10*3/uL 150-450 [facility] Potassium measurementOrdered By: Jesus Romero on 09-03-2024 Potassium [Moles/Vol] 3.8 mmol/L 3.5-5.1 [facility] Comment on above: Slight Hemolysis, Re sult may be falsely increased. RBC Auto (Bld) [#/Vol]Ordere d By: Jesus Romero on 09-03-2024 RBC (Bld) [#/Vol] 4.06 10*6/uL Low 4.6-6.2 [facility] Serum anion gap measurementO rdered By: Jesus Romero on 09-03-2024 Anion gap [Moles/Vol] 8 mmol/L 5-15 [facility] Serum or plasma calcium randa urement (mass/volume)Ordered By: Jesus Romero on 09-03-2024 Calcium [Mass/Vol] 9.3 mg/dL 8.5-10.1 [facility] Serum or plasma creatinine m easurement (mass/volume)Ordered By: Jesus Romero on 09-03-2024 Creatinine [Mass/Vol] 1.29 mg/dL 0.70-1.30 [facility] Comment on above: The validity of the calculated GFR & GFRAA in patients over 70 years has not been determined. Clinical correlation is essential. Serum or plasma urea nitroge n measurement (mass/volume)Ordered By: Jesus Romero on 09-03-2024 Urea nitrogen [Mass/Vol] 18 mg/dL 7-18 [facility] Sodium levelOrdered By: Amanda Romero on 09-03-2024 Sodium [Moles/Vol] 138 mmol/L 136-145 [facility] TSH QnOrdered By: Jesus hussein on 09-03-2024 Thyroid Stimulating Hormone (TSH) 2.110 uIU/mL 0.358-3.740 [facility] Thyroid Stim Hormone (TSH)on 09-03-2024 TSH 2.110 uIU/mL Normal 0.358-3.740 [facility] Comment on above: Order Comment: 1Y Performed By: #### L 501.5425, L501.5200, L100.0100, L503.6620, L500.2500, L501.9520 ####[facility] [id number] [place], [place], [id number] Troponin IOrdered By: Jesus Romero on 09-03-2024 Troponin I High Sensitivity 6 pg/mL 3.0-78.0 [facility] Comment on above: Please Note: New Joan t Units and Gender Specific Reference Ranges. For more information see Policy Stat Procedure [place] High Sensitivity Troponin (TNIH) and attachments. White blood cell (WBC) count Ordered By: Jesus Romero on 09-03-2024 WBC (Bld) [#/Vol] 5.7 10*3/uL 4.4-11.0 [facility] Cardiology Visit Reporton Cardiology Visit Report [facility] [address] [place] [address] OFFICE VISIT Date of Service: 08/06/24 MR#: [id number] Acct: [id number] Name: JOVANY MUÑIZ Rep #: [id number] : 1965 Provider: Dr. Jose Lockwood MD Age/Sex: 58/M Location: [facility] Status: Signed HPI HPI History of Present Illness Details: This is a 58-year-old white male who presents today for outpatient cardiovascular follow-up regarding a history of underlying CAD, PCI, hyperlipidemia, and hypertension. 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 Normal [facility] Office Visit Reporton 2023 Office Visit Report [facility] [address] [place] [address] OFFICE VISIT Date of Service: 05/18/24 MR#: [id number] Acct: [id number] Patient: JOVANY MUÑIZ Rep #: [id number] : 1965 Provider: EUGENIA Costello Age/Sex: 58/M Location: [facility] Status: Signed Intake Vital Signs 10/02/23 06:44 05/18/24 12:31 05/18/24 12:50 Height 6 ft 6 ft Intake Visit Reasons: STOMACH ISSUES Chief Complaint: STOMACH ISSUES Business Segment Manager Required: No Accompanied by: Self Is patient [...] sent patient to hospital for further evaluation. 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 Assessment and Plan Assessment and Plan Patient Instructions: Patient advised by front end assistant staff to proceed to ER for evaluation. No exam completed at this office. . 05/18/24 1422 Date Akua Vang NP-C Jacinda Signature: Date (if applicable) CC: Normal [facility] Basophil percentageOrdered B y: Carlita Velasquez on 09-10-2023 Bilirubin [Mass/Vol] 0.40 mg/dL 0.20-1.00 [facility] Comment on above: For patients on eltr ombopag therapy, use of Dimension [place] TBIL is not recommended. Chloride [Moles/Vol] 104 mmol/L 98-107 [facility] Glucose [Mass/Vol] 109 mg/dL 74-106 [facility] Comment on above: Fasting Glucose resu lt from 100 to 125 mg/dL suggests IMPAIRED HOMEOSTASIS per A.D.A. criteria. Hemoglobin (Bld) [Mass/Vol] 15.4 g/dL 13.0-16.5 [facility] Potassium [Moles/Vol] 4.6 mmol/L 3.5-5.1 [facility] Protein [Mass/Vol] 8.0 g/dL 6.4-8.2 [facility] Sodium [Moles/Vol] 133 mmol/L 136-145 [facility] WBC (Bld) [#/Vol] 5.9 10*3/uL 4.4-11.0 [facility] Determination of erythrocyte mean corpuscular volume (MCV)Ordered By: Carlita Statlexi on 09-10-2023 MCV (RBC) [Entitic vol] 97.1 fL 80-94 [facility] Erythrocyte distribution wid th ratioOrdered By: [facility] on 09-10-2023 Erythrocyte distribution width (RBC) [Ratio] 13.3 % 11.6-14.6 [facility] Erythrocyte distribution wid th standard deviationOrdered By: [facility] on 09-10-2023 Erythrocyte distribution width (RBC) [Entitic vol] 47.8 fL 35.1-43.9 [facility] Hematocrit Auto (Bld) [Volum e fraction]Ordered By: [facility] on 09-10-2023 Hematocrit (Bld) [Volume fraction] 46.5 % 40-54 [facility] Laboratory - Chemistry and C hemistry - challengeOrdered By: [facility] on 09-10-2023 Albumin/Globulin [Mass ratio] 0.9 {ratio} 0.9-2.4 [facility] ALP [Catalytic activity/Vol] 63 U/L 45-117 [facility] ALT [Catalytic activity/Vol] 46 U/L 16-61 [facility] CO2 [Moles/Vol] 25.0 mmol/L 21.0-32.0 [facility] Cobalamin (Vitamin B12) [Mass/Vol] 438 pg/mL 211-911 [facility] Globulin (S) [Mass/Vol] 4.3 g/dL 2.2-4.2 [facility] Urea nitrogen/Creatinine [Mass ratio] 20.5 mg/mg 10-20 [facility] Laboratory - Hematology and Cell countsOrdered By: Carlita Velasquez on 09-10-2023 MCH (RBC) [Entitic mass] 32.2 pg 27.0-32.0 [facility] MCHC (RBC) [Mass/Vol] 33.1 g/dL 32-36 [facility] Platelets (Bld) [#/Vol] 260 10*3/uL 150-450 [facility] No Panel InformationOrdered By: Carlita Velasquez on 09-10-2023 Estimated GFR (MDRD) Amer 107 mL/min >60 [facility] Comment on above: GFR Calc Estimated GFR (MDRD) Non-Af Amer 89 mL/min >60 [facility] Comment on above: Non- GFR Calc Platelet mean volume Codey-Ec ker (Bld) [Entitic vol]Ordered By: Carlita Velasquez on 09-10-2023 Platelet mean volume (Bld) [Entitic vol] 9.9 fL 6.2-12.0 [facility] RBC Auto (Bld) [#/Vol]Ordere d By: Carlita Velasquez on 09-10-2023 RBC (Bld) [#/Vol] 4.79 10*6/uL 4.6-6.2 [facility] Serum or plasma calcitriol m easurement (mass/volume)Ordered By: Carlita Velasquez on 09-10-2023 1,25-dihydroxyvitamin D3 [Mass/Vol] 33.6 pg/mL 24.8-81.5 [facility] Comment on above: Performed at: [address] [id number] Director: Brandie Dial MD, Phone: [phone] Serum or plasma calcium randa urement (mass/volume)Ordered By: Carlita Velasquez on 09-10-2023 Calcium [Mass/Vol] 9.3 mg/dL 8.5-10.1 [facility] Serum or plasma creatinine m easurement (mass/volume)Ordered By: Carlita Velasquez on 09-10-2023 Creatinine [Mass/Vol] 0.93 mg/dL 0.70-1.30 [facility] Comment on above: The validity of the calculated GFR & GFRAA in patients over 70 years has not been determined. Clinical correlation is essential. Serum or plasma urea nitroge n measurement (mass/volume)Ordered By: Carlita Velasquez on 09-10-2023 Urea nitrogen [Mass/Vol] 19 mg/dL 7-18 [facility] Thin prep Papanicolaou smear with manual screeningOrdered By: Carlita Velasquez on 09-10-2023 Thin prep Papanicolaou smear with manual screening 3.7 g/dL 3.2-5.0 [facility] Thin prep Papanicolaou smear with manual screening 32 U/L 15-37 [facility] Thin prep Papanicolaou smear with manual screening 4 5-15 [facility] Whole blood hemoglobin A1c/t otal hemoglobin ratio (mass fraction)Ordered By: Carlita Velasquez on 09-10-2023 HbA1c (Bld) [Mass fraction] 5.5 % 3.8-5.6 [facility] Comment on above: Normal < 5.7 % Predi abetic 5.7 - 6.4 % Diabetic >or= 6.5 % Please note range changes. Basophil percentageOrdered B y: Mitchell Dubois on 07-07-2023 Bilirubin [Mass/Vol] 0.50 mg/dL 0.20-1.00 [facility] Comment on above: For patients on eltr ombopag therapy, use of Dimension [place] TBIL is not recommended. Cholesterol [Mass/Vol] 152 mg/dL <200 [facility] Comment on above: <200 mg/dL Desirable 200-240 mg/dL Borderline >240 mg/dL High Risk Protein [Mass/Vol] 8.2 g/dL 6.4-8.2 [facility] Triglyceride [Mass/Vol] 140 mg/dL <199 [facility] Comment on above: The drugs N-Acetylcy steine and Metamizole may falsely depress this assay.Serum Triglycerides Reference Interval Normal <150 mg/dL Borderline high 150 - 199 mg/dL High 200 - 499 mg/dL Very High > or = 500 mg/dL Direct bilirubinOrdered By: Mitchell Dubois on 07-07-2023 Bilirubin.direct [Mass/Vol] 0.17 mg/dL 0.00-0.30 [facility] Laboratory - Chemistry and C hemistry - challengeOrdered By: Mitchell Dubois on 07-07-2023 ALP [Catalytic activity/Vol] 72 U/L 45-117 [facility] ALT [Catalytic activity/Vol] 52 U/L 16-61 [facility] Globulin (S) [Mass/Vol] 4.6 g/dL 2.2-4.2 [facility] Serum or plasma albumin randa urement (mass/volume)Ordered By: Mitchell Dubois on 07-07-2023 Albumin [Mass/Vol] 3.6 g/dL 3.2-5.0 [facility] Serum or plasma cholesterol in HDL measurement (mass/volume)Ordered By: Mitchell Dubois on 07-07-2023 Cholesterol in HDL [Mass/Vol] 65 mg/dL >40 [facility] Comment on above: The drugs N-Acetylcy steine and Metamizole may falsely depress this assay. Reference Range HDL <40 mg/dL Low HDL Cholesterol HDL >or= 60 mg/dL High HDL Cholesterol Serum or plasma cholesterol in VLDL measurement (mass/volume)Ordered By: Mitchell Dubois on 07-07-2023 Cholesterol in VLDL [Mass/Vol] 28 mg/dL 5-40 [facility] Serum or plasma low density lipoprotein (LDL) cholesterol measurement (mass/volume)Ordered By: Mitchell Dubois on 07-07-2023 Cholesterol in LDL [Mass/Vol] 59 mg/dL 0-130 [facility] Thin prep Papanicolaou smear with manual screeningOrdered By: Mitchell Dubois on 07-07-2023 Thin prep Papanicolaou smear with manual screening 31 U/L 15-37 [facility] Absolute lymphocyte countOrd ered By: Meliza Ramírez on 06-15-2023 Lymphocytes Auto (Unsp spec) [#/Vol] 0.73 10*3/uL 0.83-4.51 [facility] Basophil percentageOrdered B y: Meliza Ramírez on 06-15-2023 Basophils/100 WBC (Bld) 0.3 % 0-1 [facility] Bilirubin [Mass/Vol] 0.50 mg/dL 0.20-1.00 [facility] Comment on above: For patients on eltr ombopag therapy, use of Dimension [place] TBIL is not recommended. Chloride [Moles/Vol] 109 mmol/L 98-107 [facility] Eosinophils/100 WBC (Bld) 2.6 % 0-5 [facility] Glucose [Mass/Vol] 93 mg/dL 74-106 [facility] Neutrophils (Bld) [#/Vol] 5.7 10*3/uL 2.0-7.7 [facility] Neutrophils/100 WBC (Bld) 81.6 % 47-70 [facility] Potassium [Moles/Vol] 3.6 mmol/L 3.5-5.1 [facility] Protein [Mass/Vol] 6.8 g/dL 6.4-8.2 [facility] Sodium [Moles/Vol] 138 mmol/L 136-145 [facility] WBC (Bld) [#/Vol] 7.0 10*3/uL 4.4-11.0 [facility] Blood erythrocytes count (nu mber/volume)Ordered By: Meliza Ramírez on 06-15-2023 RBC (Bld) [#/Vol] 3.60 10*6/uL 4.6-6.2 [facility] Blood hemoglobin measurement (mass/volume)Ordered By: Meliza Ramírez on 06-15-2023 Hemoglobin (Bld) [Mass/Vol] 11.7 g/dL 13.0-16.5 [facility] Blood lymphocytes/100 leukoc ytesOrdered By: Meliza Ramírez on 06-15-2023 Lymphocytes/100 WBC (Bld) 10.5 % 19-41 [facility] Blood monocytes/100 leukocyt esOrdered By: Meliza Ramírez on 06-15-2023 Monocytes/100 WBC (Bld) 4.6 % 0-10 [facility] Blood platelet mean volumeOr dered By: Meliza Ramírez on 06-15-2023 Platelet mean volume (Bld) [Entitic vol] 9.9 fL 6.2-12.0 [facility] Determination of erythrocyte mean corpuscular volume (MCV)Ordered By: Meliza Ramírez on 06-15-2023 MCV (RBC) [Entitic vol] 101.4 fL 80-94 [facility] Hematocrit Auto (Bld) [Volum e fraction]Ordered By: Meliza Ramírez on 06-15-2023 Hematocrit (Bld) [Volume fraction] 36.5 % 40-54 [facility] Laboratory - Chemistry and C hemistry - challengeOrdered By: Meliza Ramírez on 06-15-2023 ALP [Catalytic activity/Vol] 61 U/L 45-117 [facility] ALT [Catalytic activity/Vol] 22 U/L 16-61 [facility] CO2 [Moles/Vol] 22.0 mmol/L 21.0-32.0 [facility] Globulin (S) [Mass/Vol] 4.3 g/dL 2.2-4.2 [facility] Urea nitrogen/Creatinine [Mass ratio] 11.1 mg/mg 10-20 [facility] Laboratory - Hematology and Cell countsOrdered By: Meliza Ramírez on 06-15-2023 Erythrocyte distribution width (RBC) [Entitic vol] 50.3 fL 35.1-43.9 [facility] Erythrocyte distribution width (RBC) [Ratio] 13.4 % 11.6-14.6 [facility] Immature granulocytes/100 WBC (Bld) 0.400 % 0.0-0.9 [facility] Comment on above: IG% - Immature Granu locytes (promyelocytes, myelocytes and metamyelocytes) > 1% indicates that a LEFT SHIFT is Present. MCH (RBC) [Entitic mass] 32.5 pg 27.0-32.0 [facility] Nucleated RBC/100 WBC (Bld) [Ratio] 0 % 0-5 [facility] MCHC Auto (RBC) [Mass/Vol]Or dered By: Meliza Ramírez on 06-15-2023 MCHC (RBC) [Mass/Vol] 32.1 g/dL 32-36 [facility] No Panel InformationOrdered By: Meliza Ramírez on 06-15-2023 Estimated Creatinine Clearance Calc 107.78 ml/min [facility] Estimated GFR (MDRD) Amer 124 mL/min >60 [facility] Comment on above: GFR Calc Estimated GFR (MDRD) Non-Af Amer 103 mL/min >60 [facility] Comment on above: Non- GFR Calc Platelets bldOrdered By: Rubén Ramírez on 06-15-2023 Platelets (Bld) [#/Vol] 205 10*3/uL 150-450 [facility] Serum or plasma albumin randa urement (mass/volume)Ordered By: Meliza Ramírez on 06-15-2023 Albumin [Mass/Vol] 2.5 g/dL 3.2-5.0 [facility] Serum or plasma albumin/glob ulin mass ratioOrdered By: Meliza Ramírez on 06-15-2023 Albumin/Globulin [Mass ratio] 0.6 {ratio} 0.9-2.4 [facility] Serum or plasma calcium randa urement (mass/volume)Ordered By: Meliza Ramírez on 06-15-2023 Calcium [Mass/Vol] 7.9 mg/dL 8.5-10.1 [facility] Serum or plasma creatinine m easurement (mass/volume)Ordered By: Meliza Ramírez on 06-15-2023 Creatinine [Mass/Vol] 0.81 mg/dL 0.70-1.30 [facility] Comment on above: The validity of the calculated GFR & GFRAA in patients over 70 years has not been determined. Clinical correlation is essential. Serum or plasma urea nitroge n measurement (mass/volume)Ordered By: Meliza Ramírez on 06-15-2023 Urea nitrogen [Mass/Vol] 9 mg/dL 7-18 [facility] Thin prep Papanicolaou smear with manual screeningOrdered By: Meliza Ramírez on 06-15-2023 Thin prep Papanicolaou smear with manual screening 12 U/L 15-37 [facility] Thin prep Papanicolaou smear with manual screening 7 5-15 [facility] Absolute lymphocyte countOrd ered By: Donta Swenson on 06-14-2023 Lymphocytes Auto (Unsp spec) [#/Vol] 0.90 10*3/uL 0.83-4.51 [facility] Basophil percentageOrdered B y: Donta Swenson on 06-14-2023 Basophil percentage 0 SEEN /hpf 0-5 [facility] Basophils/100 WBC (Bld) 0.3 % 0-1 [facility] Bilirubin [Mass/Vol] 0.60 mg/dL 0.20-1.00 [facility] Comment on above: For patients on eltr ombopag therapy, use of Dimension [place] TBIL is not recommended. Chloride [Moles/Vol] 108 mmol/L 98-107 [facility] Eosinophils/100 WBC (Bld) 2.5 % 0-5 [facility] Glucose [Mass/Vol] 119 mg/dL 74-106 [facility] Comment on above: Fasting Glucose resu lt from 100 to 125 mg/dL suggests IMPAIRED HOMEOSTASIS per A.D.A. criteria. Neutrophils (Bld) [#/Vol] 7.4 10*3/uL 2.0-7.7 [facility] Neutrophils/100 WBC (Bld) 83.8 % 47-70 [facility] Potassium [Moles/Vol] 4.4 mmol/L 3.5-5.1 [facility] Protein [Mass/Vol] 8.0 g/dL 6.4-8.2 [facility] Sodium [Moles/Vol] 139 mmol/L 136-145 [facility] WBC (Bld) [#/Vol] 8.9 10*3/uL 4.4-11.0 [facility] Bilirubin Test strip Ql (U)O rdered By: Donta Swenson on 06-14-2023 Bilirubin Ql (U) Negative Negative [facility] Blood erythrocytes count (nu mber/volume)Ordered By: Donta Swenson on 06-14-2023 RBC (Bld) [#/Vol] 4.32 10*6/uL 4.6-6.2 [facility] Blood hemoglobin measurement (mass/volume)Ordered By: Donta Swenson on 06-14-2023 Hemoglobin (Bld) [Mass/Vol] 14.1 g/dL 13.0-16.5 [facility] Blood lymphocytes/100 leukoc ytesOrdered By: Donta Swenson on 06-14-2023 Lymphocytes/100 WBC (Bld) 10.2 % 19-41 [facility] Blood monocytes/100 leukocyt esOrdered By: Donta Swenson on 06-14-2023 Monocytes/100 WBC (Bld) 2.7 % 0-10 [facility] Blood platelet mean volumeOr dered By: Donta Swenson on 06-14-2023 Platelet mean volume (Bld) [Entitic vol] 9.4 fL 6.2-12.0 [facility] Determination of erythrocyte mean corpuscular volume (MCV)Ordered By: Donta Swenson on 06-14-2023 MCV (RBC) [Entitic vol] 100.2 fL 80-94 [facility] Hematocrit Auto (Bld) [Volum e fraction]Ordered By: Donta Swenson on 06-14-2023 Hematocrit (Bld) [Volume fraction] 43.3 % 40-54 [facility] Ketones Test strip Ql (U)Ord ered By: Donta Swenson on 06-14-2023 Ketones Ql (U) Negative Negative [facility] Laboratory - Chemistry and C hemistry - challengeOrdered By: Donta Swenson on 06-14-2023 ALP [Catalytic activity/Vol] 72 U/L 45-117 [facility] ALT [Catalytic activity/Vol] 30 U/L 16-61 [facility] CO2 [Moles/Vol] 27.0 mmol/L 21.0-32.0 [facility] Globulin (S) [Mass/Vol] 4.8 g/dL 2.2-4.2 [facility] Lipase [Catalytic activity/Vol] 235 U/L 13-75 [facility] Comment on above: Please note:LIPASE r evised reference range effective 22. New Lipase methodology. Expected to produce lower values than the previous assay method. NEW Reference Range: 13 - 75 U/L Urea nitrogen/Creatinine [Mass ratio] 11.9 mg/mg 10-20 [facility] Laboratory - Hematology and Cell countsOrdered By: Donta Swenson on 06-14-2023 Erythrocyte distribution width (RBC) [Entitic vol] 48.7 fL 35.1-43.9 [facility] Erythrocyte distribution width (RBC) [Ratio] 13.1 % 11.6-14.6 [facility] Immature granulocytes/100 WBC (Bld) 0.500 % 0.0-0.9 [facility] Comment on above: IG% - Immature Granu locytes (promyelocytes, myelocytes and metamyelocytes) > 1% indicates that a LEFT SHIFT is Present. MCH (RBC) [Entitic mass] 32.6 pg 27.0-32.0 [facility] Nucleated RBC/100 WBC (Bld) [Ratio] 0 % 0-5 [facility] MCHC Auto (RBC) [Mass/Vol]Or dered By: Donta Swenson on 06-14-2023 MCHC (RBC) [Mass/Vol] 32.6 g/dL 32-36 [facility] Mucus LM Ql (Urine sed)Order ed By: Donta Swenson on 06-14-2023 Mucus Ql (Urine sed) 0 SEEN /hpf [facility] Nitrite Test strip Ql (U)Ord ered By: Donta Swenson on 06-14-2023 Nitrite Ql (U) Negative Negative [facility] No Panel InformationOrdered By: Donta Swenson on 06-14-2023 Estimated Creatinine Clearance Calc 80.09 ml/min [facility] Estimated GFR (MDRD) Amer 89 mL/min >60 [facility] Comment on above: GFR Calc Estimated GFR (MDRD) Non-Af Amer 73 mL/min >60 [facility] Comment on above: Non- GFR Calc Platelets bldOrdered By: Goldie Swenson on 06-14-2023 Platelets (Bld) [#/Vol] 251 10*3/uL 150-450 [facility] Protein Test strip Ql (U)Ord ered By: Donta Swenson on 06-14-2023 Protein Ql (U) Negative Negative [facility] Serum or plasma albumin randa urement (mass/volume)Ordered By: Donta Swenson on 06-14-2023 Albumin [Mass/Vol] 3.2 g/dL 3.2-5.0 [facility] Serum or plasma albumin/glob ulin mass ratioOrdered By: Donta Swenson on 06-14-2023 Albumin/Globulin [Mass ratio] 0.7 {ratio} 0.9-2.4 [facility] Serum or plasma calcium randa urement (mass/volume)Ordered By: Donta Swenson on 06-14-2023 Calcium [Mass/Vol] 9.0 mg/dL 8.5-10.1 [facility] Serum or plasma creatinine m easurement (mass/volume)Ordered By: Donta Swenson on 06-14-2023 Creatinine [Mass/Vol] 1.09 mg/dL 0.70-1.30 [facility] Comment on above: The validity of the calculated GFR & GFRAA in patients over 70 years has not been determined. Clinical correlation is essential. Serum or plasma urea nitroge n measurement (mass/volume)Ordered By: Donta Swenson on 06-14-2023 Urea nitrogen [Mass/Vol] 13 mg/dL 7-18 [facility] Squamous epithelial cells de tection in urine sediment by light microscopyOrdered By: Donta Swenson on 06-14-2023 Epithelial cells.squamous LM Ql (Urine sed) 0 SEEN /hpf 0-5 [facility] Thin prep Papanicolaou smear with manual screeningOrdered By: Donta Swenson on 06-14-2023 Thin prep Papanicolaou smear with manual screening 18 U/L 15-37 [facility] Thin prep Papanicolaou smear with manual screening 4 5-15 [facility] Urine blood detectionOrdered By: Donta Swenson on 06-14-2023 RBC Ql (U) Negative Negative [facility] RBC Ql (U) 0 SEEN /hpf 0-5 [facility] Urine clarityOrdered By: Goldie Swenson on 06-14-2023 Clarity (U) Clear Clear [facility] Urine color determinationOrd ered By: Donta Swenson on 06-14-2023 Color (U) Yellow Yellow [facility] Urine glucose detectionOrder ed By: Donta Swenson on 06-14-2023 Glucose Ql (U) Normal mg/dl Normal [facility] Urine leukocyte esterase det ection by dipstickOrdered By: Donta Swenson on 06-14-2023 Leukocyte esterase Test strip Ql (U) Negative Negative [facility] Urine pHOrdered By: Donta dickerson on 06-14-2023 pH (U) 7.0 [pH] 5.0 - 8.0 [facility] Urine sediment bacteria coun t by microscopy (number/high power field)Ordered By: Donta Swenson on 06-14-2023 Bacteria LM.HPF (Urine sed) [#/Area] 0 /[HPF] None Seen [facility] Urine specific gravity measu rementOrdered By: Donta Swenson on 06-14-2023 Specific gravity (U) [Rel density] 1.010 1.002-1.030 [facility] Urobilinogen Auto test strip Ql (U)Ordered By: Donta Swenson on 06-14-2023 Urobilinogen Ql (U) Normal mg/dl Normal [facility] Basophil percentageOrdered B y: Sergei Henley on 06-02-2023 Bilirubin [Mass/Vol] 0.30 mg/dL 0.20-1.00 [facility] Comment on above: For patients on eltr ombopag therapy, use of Dimension [place] TBIL is not recommended. Chloride [Moles/Vol] 109 mmol/L 98-107 [facility] Glucose [Mass/Vol] 103 mg/dL 74-106 [facility] Comment on above: Fasting Glucose resu lt from 100 to 125 mg/dL suggests IMPAIRED HOMEOSTASIS per A.D.A. criteria. Potassium [Moles/Vol] 4.6 mmol/L 3.5-5.1 [facility] Protein [Mass/Vol] 7.6 g/dL 6.4-8.2 [facility] Sodium [Moles/Vol] 141 mmol/L 136-145 [facility] WBC (Bld) [#/Vol] 6.3 10*3/uL 4.4-11.0 [facility] Blood erythrocytes count (nu mber/volume)Ordered By: Sergei Henley on 06-02-2023 RBC (Bld) [#/Vol] 4.21 10*6/uL 4.6-6.2 [facility] Blood hemoglobin measurement (mass/volume)Ordered By: Sergei Henley on 06-02-2023 Hemoglobin (Bld) [Mass/Vol] 13.7 g/dL 13.0-16.5 [facility] Blood platelet mean volumeOr dered By: Sergei Henley on 06-02-2023 Platelet mean volume (Bld) [Entitic vol] 9.8 fL 6.2-12.0 [facility] Determination of erythrocyte mean corpuscular volume (MCV)Ordered By: Sergei Henley on 06-02-2023 MCV (RBC) [Entitic vol] 100.7 fL 80-94 [facility] Erythrocyte sedimentation ra teOrdered By: Sergei Henley on 06-02-2023 ESR (Bld) [Velocity] 8 mm/h 0-20 [facility] Hematocrit Auto (Bld) [Volum e fraction]Ordered By: Sergei Henley on 06-02-2023 Hematocrit (Bld) [Volume fraction] 42.4 % 40-54 [facility] Iron measurement (mass/mass) Ordered By: Sergei Henley on 06-02-2023 Iron (Unsp spec) [Mass/Mass] 101 ug/dL 65-175 [facility] Laboratory - Chemistry and C hemistry - challengeOrdered By: Sergei Henley on 06-02-2023 ALP [Catalytic activity/Vol] 72 U/L 45-117 [facility] ALT [Catalytic activity/Vol] 35 U/L 16-61 [facility] CO2 [Moles/Vol] 28.0 mmol/L 21.0-32.0 [facility] Cobalamin (Vitamin B12) [Mass/Vol] 309 pg/mL 211-911 [facility] Globulin (S) [Mass/Vol] 4.2 g/dL 2.2-4.2 [facility] Magnesium [Mass/Vol] 2.6 mg/dL 1.6-2.6 [facility] Urea nitrogen/Creatinine [Mass ratio] 14.4 mg/mg 10-20 [facility] Laboratory - Hematology and Cell countsOrdered By: Sergei Henley on 06-02-2023 Erythrocyte distribution width (RBC) [Entitic vol] 47.6 fL 35.1-43.9 [facility] Erythrocyte distribution width (RBC) [Ratio] 12.8 % 11.6-14.6 [facility] MCH (RBC) [Entitic mass] 32.5 pg 27.0-32.0 [facility] MCHC Auto (RBC) [Mass/Vol]Or dered By: Sergei Henley on 06-02-2023 MCHC (RBC) [Mass/Vol] 32.3 g/dL 32-36 [facility] No Panel InformationOrdered By: Sergei Henley on 06-02-2023 Estimated GFR (MDRD) Amer 101 mL/min >60 [facility] Comment on above: GFR Calc Estimated GFR (MDRD) Non-Af Amer 84 mL/min >60 [facility] Comment on above: Non- GFR Calc Thyroid Stimulating Hormone (TSH) 1.26 uIU/mL 0.358-3.74 [facility] Vitamin D 25-Hydroxy 34.5 ng/mL [facility] Comment on above: Vitamin D 25(OH) Sta tus Range Deficiency <20 ng/mL (50nmol/L) Insufficiency 20 - 30 ng/mL (50 - 75 nmol/L) Sufficiency 30 - 100 ng/mL (75 - 250 nmol/L) Toxicity >100 ng/mL (>250 nmol/L) Platelets bldOrdered By: Chr istophe Kale on 06-02-2023 Platelets (Bld) [#/Vol] 261 10*3/uL 150-450 [facility] Serum or plasma albumin randa urement (mass/volume)Ordered By: Sergei Henley on 06-02-2023 Albumin [Mass/Vol] 3.4 g/dL 3.2-5.0 [facility] Serum or plasma albumin/glob ulin mass ratioOrdered By: Sergei Henley on 06-02-2023 Albumin/Globulin [Mass ratio] 0.8 {ratio} 0.9-2.4 [facility] Serum or plasma calcium ranad urement (mass/volume)Ordered By: Sergei Henley on 06-02-2023 Calcium [Mass/Vol] 8.7 mg/dL 8.5-10.1 [facility] Serum or plasma creatinine m easurement (mass/volume)Ordered By: Sergei Henley on 06-02-2023 Creatinine [Mass/Vol] 0.98 mg/dL 0.70-1.30 [facility] Comment on above: The validity of the calculated GFR & GFRAA in patients over 70 years has not been determined. Clinical correlation is essential. Serum or plasma ferritin seema surement (mass/volume)Ordered By: Sergei Henley on 06-02-2023 Ferritin [Mass/Vol] 285 ng/mL 26-388 [facility] Serum or plasma urea nitroge n measurement (mass/volume)Ordered By: Sergei Henley on 06-02-2023 Urea nitrogen [Mass/Vol] 14 mg/dL 7-18 [facility] Thin prep Papanicolaou smear with manual screeningOrdered By: Sergei Henley on 06-02-2023 Thin prep Papanicolaou smear with manual screening 24 U/L 15-37 [facility] Thin prep Papanicolaou smear with manual screening 4 5- [facility] Basophil percentageOrdered B y: Eileen Ray on 04-25-2023 Bilirubin [Mass/Vol] 0.40 mg/dL 0.20-1.00 [facility] Comment on above: For patients on eltr ombopag therapy, use of Dimension [place] TBIL is not recommended. Chloride [Moles/Vol] 109 mmol/L 98-107 [facility] Glucose [Mass/Vol] 104 mg/dL 74-106 [facility] Comment on above: Fasting Glucose resu lt from 100 to 125 mg/dL suggests IMPAIRED HOMEOSTASIS per A.D.A. criteria. Potassium [Moles/Vol] 3.9 mmol/L 3.5-5.1 [facility] Protein [Mass/Vol] 7.0 g/dL 6.4-8.2 [facility] Sodium [Moles/Vol] 139 mmol/L 136-145 [facility] WBC (Bld) [#/Vol] 4.7 10*3/uL 4.4-11.0 [facility] Blood erythrocytes count (nu mber/volume)Ordered By: Eileen Ray on 04-25-2023 RBC (Bld) [#/Vol] 4.14 10*6/uL 4.6-6.2 [facility] Blood hemoglobin measurement (mass/volume)Ordered By: Eileen Ray on 04-25-2023 Hemoglobin (Bld) [Mass/Vol] 13.9 g/dL 13.0-16.5 [facility] Blood platelet mean volumeOr dered By: Eileen Ray on 04-25-2023 Platelet mean volume (Bld) [Entitic vol] 9.5 fL 6.2-12.0 [facility] Determination of erythrocyte mean corpuscular volume (MCV)Ordered By: Eileen Ray on 04-25-2023 MCV (RBC) [Entitic vol] 99.8 fL 80-94 [facility] Hematocrit Auto (Bld) [Volum e fraction]Ordered By: Eileen Ray on 04-25-2023 Hematocrit (Bld) [Volume fraction] 41.3 % 40-54 [facility] Laboratory - Chemistry and C hemistry - challengeOrdered By: Eileen Ray on 04-25-2023 ALP [Catalytic activity/Vol] 61 U/L 45-117 [facility] ALT [Catalytic activity/Vol] 50 U/L 16-61 [facility] CO2 [Moles/Vol] 27.0 mmol/L 21.0-32.0 [facility] Globulin (S) [Mass/Vol] 3.9 g/dL 2.2-4.2 [facility] Urea nitrogen/Creatinine [Mass ratio] 10.2 mg/mg 10-20 [facility] Laboratory - Hematology and Cell countsOrdered By: Eileen Ray on 04-25-2023 Erythrocyte distribution width (RBC) [Entitic vol] 47.3 fL 35.1-43.9 [facility] Erythrocyte distribution width (RBC) [Ratio] 12.9 % 11.6-14.6 [facility] MCH (RBC) [Entitic mass] 33.6 pg 27.0-32.0 [facility] MCHC Auto (RBC) [Mass/Vol]Or dered By: Eileen Ray on 04-25-2023 MCHC (RBC) [Mass/Vol] 33.7 g/dL 32-36 [facility] No Panel InformationOrdered By: Eileen Ray on 04-25-2023 Estimated Creatinine Clearance Calc 89.08 ml/min [facility] Estimated GFR (MDRD) Amer 100 mL/min >60 [facility] Comment on above: GFR Calc Estimated GFR (MDRD) Non-Af Amer 83 mL/min >60 [facility] Comment on above: Non- GFR Calc Platelets bldOrdered By: Nuno Ray on 04-25-2023 Platelets (Bld) [#/Vol] 185 10*3/uL 150-450 [facility] Serum or plasma albumin randa urement (mass/volume)Ordered By: Eileen Ray on 04-25-2023 Albumin [Mass/Vol] 3.1 g/dL 3.2-5.0 [facility] Serum or plasma albumin/glob ulin mass ratioOrdered By: Eileen Ray on 04-25-2023 Albumin/Globulin [Mass ratio] 0.8 {ratio} 0.9-2.4 [facility] Serum or plasma calcium randa urement (mass/volume)Ordered By: Eileen Ray on 04-25-2023 Calcium [Mass/Vol] 8.6 mg/dL 8.5-10.1 [facility] Serum or plasma creatinine m easurement (mass/volume)Ordered By: Eileen Ray on 04-25-2023 Creatinine [Mass/Vol] 0.98 mg/dL 0.70-1.30 [facility] Comment on above: The validity of the calculated GFR & GFRAA in patients over 70 years has not been determined. Clinical correlation is essential. Serum or plasma urea nitroge n measurement (mass/volume)Ordered By: Eileen Ray on 04-25-2023 Urea nitrogen [Mass/Vol] 10 mg/dL 7-18 [facility] Thin prep Papanicolaou smear with manual screeningOrdered By: Eileen Ray on 04-25-2023 Thin prep Papanicolaou smear with manual screening 73 U/L 15-37 [facility] Thin prep Papanicolaou smear with manual screening 3 5-15 [facility] Whole blood hemoglobin A1c/t otal hemoglobin ratio (mass fraction)Ordered By: Ar Torres on 04-25-2023 HbA1c (Bld) [Mass fraction] 5.6 % 3.8-5.6 [facility] Comment on above: Normal < 5.7 % Predi abetic 5.7 - 6.4 % Diabetic >or= 6.5 % Please note range changes. Absolute lymphocyte countOrd ered By: Ar Torres on 04-24-2023 Lymphocytes Auto (Unsp spec) [#/Vol] 1.02 10*3/uL 0.83-4.51 [facility] Basophil percentageOrdered B y: Ar Torres on 04-24-2023 Basophils/100 WBC (Bld) 0.8 % 0-1 [facility] Cholesterol [Mass/Vol] 210 mg/dL <200 [facility] Comment on above: <200 mg/dL Desirable 200-240 mg/dL Borderline >240 mg/dL High Risk Eosinophils/100 WBC (Bld) 4.3 % 0-5 [facility] Neutrophils (Bld) [#/Vol] 3.1 10*3/uL 2.0-7.7 [facility] Neutrophils/100 WBC (Bld) 64.2 % 47-70 [facility] Triglyceride [Mass/Vol] 258 mg/dL <199 [facility] Comment on above: The drugs N-Acetylcy steine and Metamizole may falsely depress this assay.Serum Triglycerides Reference Interval Normal <150 mg/dL Borderline high 150 - 199 mg/dL High 200 - 499 mg/dL Very High > or = 500 mg/dL Blood lymphocytes/100 leukoc ytesOrdered By: Ar Torres on 04-24-2023 Lymphocytes/100 WBC (Bld) 20.9 % 19-41 [facility] Blood monocytes/100 leukocyt esOrdered By: Ar Torres on 04-24-2023 Monocytes/100 WBC (Bld) 9.2 % 0-10 [facility] INR in Blood by Coagulation assayOrdered By: Ar Torres on 04-24-2023 INR Coag (Bld) [Relative time] 1.0 {INR} [facility] Laboratory - CoagulationOrde red By: Ar Torres on 04-24-2023 aPTT Coag (Bld) [Time] 22.7 s 24.1-36.2 [facility] PT Coag (PPP) [Time] 12.8 s 11.7-14.9 [facility] Laboratory - Hematology and Cell countsOrdered By: Ar Torres on 04-24-2023 Immature granulocytes/100 WBC (Bld) 0.600 % 0.0-0.9 [facility] Comment on above: IG% - Immature Granu locytes (promyelocytes, myelocytes and metamyelocytes) > 1% indicates that a LEFT SHIFT is Present. Nucleated RBC/100 WBC (Bld) [Ratio] 0 % 0-5 [facility] No Panel InformationOrdered By: Rommel Youssef on 04-24-2023 Activated Clotting Time 197 sec 74-137 [facility] No Panel InformationOrdered By: Ar Torres on 04-24-2023 Troponin I High Sensitivity 48190 pg/mL 3.0-78.0 [facility] Comment on above: Critical Result(s) C alled at: 08:06:06 04/24/2023 by: Kendal Mcqueen. Results read back by same. Please Note: New Test Units and Gender Specific Reference Ranges. For more information see Policy Stat Procedure [place] High Sensitivity Troponin (TNIH) and attachments. Serum or plasma cholesterol in HDL measurement (mass/volume)Ordered By: Ar Torres on 04-24-2023 Cholesterol in HDL [Mass/Vol] 71 mg/dL >40 [facility] Comment on above: The drugs N-Acetylcy steine and Metamizole may falsely depress this assay. Reference Range HDL <40 mg/dL Low HDL Cholesterol HDL >or= 60 mg/dL High HDL Cholesterol Serum or plasma cholesterol in VLDL measurement (mass/volume)Ordered By: Ar Torres on 04-24-2023 Cholesterol in VLDL [Mass/Vol] 52 mg/dL 5-40 [facility] Serum or plasma low density lipoprotein (LDL) cholesterol measurement (mass/volume)Ordered By: Ar Torres on 04-24-2023 Cholesterol in LDL [Mass/Vol] 87 mg/dL 0-130 [facility] Absolute lymphocyte countOrd ered By: Perez Dave on 04-23-2023 Lymphocytes Auto (Unsp spec) [#/Vol] 1.69 10*3/uL 0.83-4.51 [facility] Basophil percentageOrdered B y: Perez Dave on 04-23-2023 Basophils/100 WBC (Bld) 1.1 % 0-1 [facility] Chloride [Moles/Vol] 108 mmol/L 98-107 [facility] Eosinophils/100 WBC (Bld) 6.3 % 0-5 [facility] Glucose [Mass/Vol] 104 mg/dL 74-106 [facility] Comment on above: Fasting Glucose resu lt from 100 to 125 mg/dL suggests IMPAIRED HOMEOSTASIS per A.D.A. criteria. Neutrophils (Bld) [#/Vol] 2.5 10*3/uL 2.0-7.7 [facility] Neutrophils/100 WBC (Bld) 48.0 % 47-70 [facility] Potassium [Moles/Vol] 3.4 mmol/L 3.5-5.1 [facility] Sodium [Moles/Vol] 141 mmol/L 136-145 [facility] WBC (Bld) [#/Vol] 5.3 10*3/uL 4.4-11.0 [facility] Blood erythrocytes count (nu mber/volume)Ordered By: Perez Dave on 04-23-2023 RBC (Bld) [#/Vol] 4.28 10*6/uL 4.6-6.2 [facility] Blood hemoglobin measurement (mass/volume)Ordered By: Perez Dave on 04-23-2023 Hemoglobin (Bld) [Mass/Vol] 14.0 g/dL 13.0-16.5 [facility] Blood lymphocytes/100 leukoc ytesOrdered By: Perez Dave on 04-23-2023 Lymphocytes/100 WBC (Bld) 32.1 % 19-41 [facility] Blood monocytes/100 leukocyt esOrdered By: Perez Dave on 04-23-2023 Monocytes/100 WBC (Bld) 12.1 % 0-10 [facility] Blood platelet mean volumeOr dered By: Perez Dave on 04-23-2023 Platelet mean volume (Bld) [Entitic vol] 9.5 fL 6.2-12.0 [facility] Determination of erythrocyte mean corpuscular volume (MCV)Ordered By: Perez Dave on 04-23-2023 MCV (RBC) [Entitic vol] 98.8 fL 80-94 [facility] Hematocrit Auto (Bld) [Volum e fraction]Ordered By: Perez Dave on 04-23-2023 Hematocrit (Bld) [Volume fraction] 42.3 % 40-54 [facility] INR in Blood by Coagulation assayOrdered By: Perez Dave on 04-23-2023 INR Coag (Bld) [Relative time] 1.0 {INR} [facility] Laboratory - Chemistry and C hemistry - challengeOrdered By: Perez Dave on 04-23-2023 CO2 [Moles/Vol] 24.0 mmol/L 21.0-32.0 [facility] Urea nitrogen/Creatinine [Mass ratio] 12.1 mg/mg 10-20 [facility] Laboratory - CoagulationOrde red By: Perez Dave on 04-23-2023 aPTT Coag (Bld) [Time] 23.0 s 24.1-36.2 [facility] PT Coag (PPP) [Time] 12.9 s 11.7-14.9 [facility] Laboratory - Hematology and Cell countsOrdered By: Perez Dave on 04-23-2023 Erythrocyte distribution width (RBC) [Entitic vol] 45.7 fL 35.1-43.9 [facility] Erythrocyte distribution width (RBC) [Ratio] 12.6 % 11.6-14.6 [facility] Immature granulocytes/100 WBC (Bld) 0.400 % 0.0-0.9 [facility] Comment on above: IG% - Immature Granu locytes (promyelocytes, myelocytes and metamyelocytes) > 1% indicates that a LEFT SHIFT is Present. MCH (RBC) [Entitic mass] 32.7 pg 27.0-32.0 [facility] Nucleated RBC/100 WBC (Bld) [Ratio] 0 % 0-5 [facility] MCHC Auto (RBC) [Mass/Vol]Or dered By: Perez Dave on 04-23-2023 MCHC (RBC) [Mass/Vol] 33.1 g/dL 32-36 [facility] No Panel InformationOrdered By: Perez Dave on 04-23-2023 Estimated Creatinine Clearance Calc 70.40 ml/min [facility] Estimated GFR (MDRD) Amer 77 mL/min >60 [facility] Comment on above: GFR Calc Estimated GFR (MDRD) Non-Af Amer 63 mL/min >60 [facility] Comment on above: Non- GFR Calc Troponin I High Sensitivity 6 pg/mL 3.0-78.0 [facility] Comment on above: Please Note: New Joan t Units and Gender Specific Reference Ranges. For more information see Policy Stat Procedure [place] High Sensitivity Troponin (TNIH) and attachments. Platelets bldOrdered By: Priti Dave on 04-23-2023 Platelets (Bld) [#/Vol] 226 10*3/uL 150-450 [facility] Serum or plasma calcium randa urement (mass/volume)Or[facility] By: [facility] Calcium [Mass/Vol] 8.8 mg/dL 8.5-10.1 [facility] Serum or plasma creatinine m easurement (mass/volume)Ordered By: [place] Tenzin on 04-23-2023 Creatinine [Mass/Vol] 1.24 mg/dL 0.70-1.30 [facility] Comment on above: The validity of the calculated GFR & GFRAA in patients over 70 years has not been determined. Clinical correlation is essential. Serum or plasma urea nitroge n measurement (mass/volume)Ordered By: [facility] Urea nitrogen [Mass/Vol] 15 mg/dL 7-18 [facility] Thin prep Papanicolaou smear with manual screeningOrdered By: [facility]23 Thin prep Papanicolaou smear with manual screening 9 5-15 [facility] Absolute lymphocyte counton 05-06-2022 Lymphocytes Auto (Unsp spec) [#/Vol] 1.23 10*3/uL 0.83-4.51 [facility] Work Phone: Basophil percentageon 2021 Basophils/100 WBC (Bld) 0.7 % 0-1 [facility] Work Phone: Bilirubin [Mass/Vol] 0.50 mg/dL 0.20-1.00 [facility] Work Phone: Comment on above: For patients on eltr ombopag therapy, use of Dimension [place] TBIL is not recommended. Chloride [Moles/Vol] 105 mmol/L 98-107 [facility] Work Phone: Cholesterol [Mass/Vol] 179 mg/dL <200 [facility] Work Phone: Comment on above: <200 mg/dL Desirable 200-240 mg/dL Borderline >240 mg/dL High Risk Eosinophils/100 WBC (Bld) 3.0 % 0-5 [facility] Work Phone: Glucose [Mass/Vol] 104 mg/dL 74-106 [facility] Work Phone: Comment on above: Fasting Glucose resu lt from 100 to 125 mg/dL suggests IMPAIRED HOMEOSTASIS per A.D.A. criteria. Neutrophils (Bld) [#/Vol] 4.0 10*3/uL 2.0-7.7 [facility] Work Phone: Neutrophils/100 WBC (Bld) 66.8 % 47-70 [facility] Work Phone: Potassium [Moles/Vol] 4.3 mmol/L 3.5-5.1 [facility] Work Phone: Comment on above: Slight Hemolysis, Re sult may be falsely increased. Protein [Mass/Vol] 8.3 g/dL 6.4-8.2 [facility] Work Phone: Sodium [Moles/Vol] 140 mmol/L 136-145 [facility] Work Phone: Triglyceride [Mass/Vol] 169 mg/dL <199 [facility] Work Phone: Comment on above: The drugs N-Acetylcy steine and Metamizole may falsely depress this assay.Serum Triglycerides Reference Interval Normal <150 mg/dL Borderline high 150 - 199 mg/dL High 200 - 499 mg/dL Very High > or = 500 mg/dL WBC (Bld) [#/Vol] 6.0 10*3/uL 4.4-11.0 [facility] Work Phone: Blood erythrocytes count (nu mber/volume)on 05-06-2022 RBC (Bld) [#/Vol] 4.85 10*6/uL 4.6-6.2 [facility] Work Phone: Blood hemoglobin measurement (mass/volume)on 05-06-2022 Hemoglobin (Bld) [Mass/Vol] 15.8 g/dL 13.0-16.5 [facility] Work Phone: Blood lymphocytes/100 leukoc yteson 05-06-2022 Lymphocytes/100 WBC (Bld) 20.5 % 19-41 [facility] Work Phone: Blood monocytes/100 leukocyt eson 05-06-2022 Monocytes/100 WBC (Bld) 8.5 % 0-10 [facility] Work Phone: Blood platelet mean volumeon 05-06-2022 Platelet mean volume (Bld) [Entitic vol] 9.9 fL 6.2-12.0 [facility] Work Phone: Determination of erythrocyte mean corpuscular volume (MCV)on 05-06-2022 MCV (RBC) [Entitic vol] 98.4 fL 80-94 [facility] Work Phone: Erythrocyte sedimentation ra bobby 05-06-2022 ESR (Bld) [Velocity] 17 mm[facility]h 0-[facility] Work Phone: Hematocrit Auto (Bld) [Volum e fraction]on 05-06-2022 Hematocrit (Bld) [Volume fraction] 47.7 % 40-54 [facility] Work Phone: Laboratory - Chemistry and C hemistry - challengeon 05-06-2022 ALP [Catalytic activity/Vol] 82 U/L 45-117 [facility] Work Phone: ALT [Catalytic activity/Vol] 78 U/L 16-61 [facility] Work Phone: CO2 [Moles/Vol] 26.0 mmol/L 21.0-32.0 [facility] Work Phone: [phone] Cobalamin (Vitamin B12) [Mass/Vol] 289 pg/mL 211-911 [facility] Work Phone: Globulin (S) [Mass/Vol] 4.7 g/dL 2.2-4.2 [facility] Work Phone: Urea nitrogen/Creatinine [Mass ratio] 8.1 mg/mg 10-20 [facility] Work Phone: Laboratory - Hematology and Cell countson 05-06-2022 Erythrocyte distribution width (RBC) [Entitic vol] 46.7 fL 35.1-43.9 [facility] Work Phone: Erythrocyte distribution width (RBC) [Ratio] 12.9 % 11.6-14.6 [facility] Work Phone: [phone] Immature granulocytes/100 WBC (Bld) 0.500 % 0.0-0.9 [facility] Work Phone: [phone] Comment on above: IG% - Immature Granu locytes (promyelocytes, myelocytes and metamyelocytes) > 1% indicates that a LEFT SHIFT is Present. MCH (RBC) [Entitic mass] 32.6 pg 27.0-32.0 [facility] Work Phone: [phone] Nucleated RBC/100 WBC (Bld) [Ratio] 0 % 0-5 [facility] Work Phone: [phone] MCHC Auto (RBC) [Mass/Vol]on 05-06-2022 MCHC (RBC) [Mass/Vol] 33.1 g/dL 32-36 [facility] Work Phone: No Panel Informationon 05-06 Estimated GFR (MDRD) Amer 77 mL/min >60 [facility] Work Phone: [phone] Comment on above: GFR Calc Estimated GFR (MDRD) Non-Af Amer 64 mL/min >60 [facility] Work Phone: [phone] Comment on above: Non- GFR Calc Thyroid Stimulating Hormone (TSH) 0.99 uIU/mL 0.358-3.74 [facility] Work Phone: [phone] Vitamin D 25-Hydroxy 37.3 ng/mL [facility] Work Phone: [phone] Comment on above: Vitamin D 25(OH) Sta tus Range Deficiency <20 ng/mL (50nmol/L) Insufficiency 20 - 30 ng/mL (50 - 75 nmol/L) Sufficiency 30 - 100 ng/mL (75 - 250 nmol/L) Toxicity >100 ng/mL (>250 nmol/L) Platelets bldon 05-06-2022 Platelets (Bld) [#/Vol] 223 10*3/uL 150-450 [facility] Work Phone: Serum or plasma albumin randa urement (mass/volume)on 05-06-2022 Albumin [Mass/Vol] 3.6 g/dL 3.2-5.0 [facility] Work Phone: Serum or plasma albumin/glob ulin mass ratioon 05-06-2022 Albumin/Globulin [Mass ratio] 0.8 {ratio} 0.9-2.4 [facility] Work Phone: Serum or plasma calcium randa urement (mass/volume)on 05-06-2022 Calcium [Mass/Vol] 9.0 mg/dL 8.5-10.1 [facility] Work Phone: Serum or plasma cholesterol in HDL measurement (mass/volume)on 05-06-2022 Cholesterol in HDL [Mass/Vol] 78 mg/dL >40 [facility] Work Phone: Comment on above: The drugs N-Acetylcy steine and Metamizole may falsely depress this assay. Reference Range HDL <40 mg/dL Low HDL Cholesterol HDL >or= 60 mg/dL High HDL Cholesterol Serum or plasma cholesterol in VLDL measurement (mass/volume)on 05-06-2022 Cholesterol in VLDL [Mass/Vol] 34 mg/dL 5-40 [facility] Work Phone: Serum or plasma creatinine m easurement (mass/volume)on 05-06-2022 Creatinine [Mass/Vol] 1.24 mg/dL 0.70-1.30 [facility] Work Phone: Comment on above: The validity of the calculated GFR & GFRAA in patients over 70 years has not been determined. Clinical correlation is essential. Serum or plasma low density lipoprotein (LDL) cholesterol measurement (mass/volume)on 05-06-2022 Cholesterol in LDL [Mass/Vol] 67 mg/dL 0-130 [facility] Work Phone: Serum or plasma urea nitroge n measurement (mass/volume)on 05-06-2022 Urea nitrogen [Mass/Vol] 10 mg/dL 7-18 [facility] Work Phone: Thin prep Papanicolaou smear with manual screeningon 05-06-2022 Thin prep Papanicolaou smear with manual screening 54 U/L 15-37 [facility] Work Phone: Comment on above: Slight Hemolysis, Re sult may be falsely increased. Thin prep Papanicolaou smear with manual screening 9 5-15 [facility] Work Phone: Basophil percentageon 2021 Chloride [Moles/Vol] 108 mmol/L 98-107 [facility] Work Phone: Cholesterol [Mass/Vol] 158 mg/dL <200 [facility] Work Phone: Comment on above: <200 mg/dL Desirable 200-240 mg/dL Borderline >240 mg/dL High Risk Glucose [Mass/Vol] 112 mg/dL 74-106 [facility] Work Phone: Comment on above: Fasting Glucose resu lt from 100 to 125 mg/dL suggests IMPAIRED HOMEOSTASIS per A.D.A. criteria. Potassium [Moles/Vol] 3.9 mmol/L 3.5-5.1 [facility] Work Phone: Sodium [Moles/Vol] 139 mmol/L 136-145 [facility] Work Phone: Triglyceride [Mass/Vol] 147 mg/dL [facility] Work Phone: Comment on above: The drugs N-Acetylcy steine and Metamizole may falsely depress this assay.Serum Triglycerides Reference Interval Normal <150 mg/dL Borderline high 150 - 199 mg/dL High 200 - 499 mg/dL Very High > or = 500 mg/dL WBC (Bld) [#/Vol] 6.1 10*3/uL 4.4-11.0 [facility] Work Phone: [phone] Blood erythrocytes count (nu mber/volume)on 10-31-2021 RBC (Bld) [#/Vol] 4.40 10*6/uL 4.6-6.2 [facility] Work Phone: [phone] Blood hemoglobin measurement (mass/volume)on 10-31-2021 Hemoglobin (Bld) [Mass/Vol] 14.2 g/dL 13.0-16.5 [facility] Work Phone: [phone] Blood platelet mean volumeon 10-31-2021 Platelet mean volume (Bld) [Entitic vol] 9.9 fL 6.2-12.0 [facility] Work Phone: [phone] Determination of erythrocyte mean corpuscular volume (MCV)on 10-31-2021 MCV (RBC) [Entitic vol] 98.2 fL 80-94 [facility] Work Phone: [phone] Hematocrit Auto (Bld) [Volum e fraction]on 10-31-2021 Hematocrit (Bld) [Volume fraction] 43.2 % 40-54 [facility] Work Phone: [phone] Laboratory - Chemistry and C hemistry - challengeon 10-31-2021 CO2 [Moles/Vol] 28.0 mmol/L 21.0-32.0 [facility] Work Phone: [phone] Urea nitrogen/Creatinine [Mass ratio] 10.0 mg/mg 10-20 [facility] Work Phone: [phone] Laboratory - Hematology and Cell countson 10-31-2021 Erythrocyte distribution width (RBC) [Entitic vol] 46.4 fL 35.1-43.9 [facility] Work Phone: [phone] Erythrocyte distribution width (RBC) [Ratio] 13.0 % 11.6-14.6 [facility] Work Phone: [phone] MCH (RBC) [Entitic mass] 32.3 pg 27.0-32.0 [facility] Work Phone: [phone] MCHC Auto (RBC) [Mass/Vol]on 10-31-2021 MCHC (RBC) [Mass/Vol] 32.9 g/dL 32-36 [facility] Work Phone: [phone] No Panel Informationon 10-31 Estimated Creatinine Clearance Calc 98.20 ml/min [facility] Work Phone: [phone] Estimated GFR (MDRD) Amer 112 mL/min >60 [facility] Work Phone: Comment on above: GFR Calc Estimated GFR (MDRD) Non-Af Amer 92 mL/min >60 [facility] Work Phone: Comment on above: Non- GFR Calc Thyroid Stimulating Hormone (TSH) 0.80 uIU/mL 0.358-3.74 [facility] Work Phone: Platelets bldon 10-31-2021 Platelets (Bld) [#/Vol] 188 10*3/uL 150-450 [facility] Work Phone: Serum or plasma calcium randa urement (mass/volume)on 10-31-2021 Calcium [Mass/Vol] 8.6 mg/dL 8.5-10.1 [facility] Work Phone: Serum or plasma cholesterol in HDL measurement (mass/volume)on 10-31-2021 Cholesterol in HDL [Mass/Vol] 66 mg/dL [facility] Work Phone: Comment on above: The drugs N-Acetylcy steine and Metamizole may falsely depress this assay. Reference Range HDL <40 mg/dL Low HDL Cholesterol HDL >or= 60 mg/dL High HDL Cholesterol Serum or plasma cholesterol in VLDL measurement (mass/volume)on 10-31-2021 Cholesterol in VLDL [Mass/Vol] 29 mg/dL 5-40 [facility] Work Phone: Serum or plasma creatinine m easurement (mass/volume)on 10-31-2021 Creatinine [Mass/Vol] 0.90 mg/dL 0.70-1.30 [facility] Work Phone: Comment on above: The validity of the calculated GFR & GFRAA in patients over 70 years has not been determined. Clinical correlation is essential. Serum or plasma low density lipoprotein (LDL) cholesterol measurement (mass/volume)on 10-31-2021 Cholesterol in LDL [Mass/Vol] 63 mg/dL 0-130 [facility] Work Phone: Serum or plasma urea nitroge n measurement (mass/volume)on 10-31-2021 Urea nitrogen [Mass/Vol] 9 mg/dL 7-18 [facility] Work Phone: Thin prep Papanicolaou smear with manual screeningon 10-31-2021 Thin prep Papanicolaou smear with manual screening 3 5-15 [facility] Work Phone: Absolute lymphocyte counton 10-30-2021 Lymphocytes Auto (Unsp spec) [#/Vol] 1.97 10*3/uL 0.83-4.51 [facility] Work Phone: Basophil percentageon 2021 Basophils/100 WBC (Bld) 0.4 % 0-1 [facility] Work Phone: Chloride [Moles/Vol] 106 mmol/L 98-107 [facility] Work Phone: Eosinophils/100 WBC (Bld) 3.4 % 0-5 [facility] Work Phone: Glucose [Mass/Vol] 94 mg/dL 74-106 [facility] Work Phone: Neutrophils (Bld) [#/Vol] 4.2 10*3/uL 2.0-7.7 [facility] Work Phone: Neutrophils/100 WBC (Bld) 58.0 % 47-70 [facility] Work Phone: Potassium [Moles/Vol] 3.9 mmol/L 3.5-5.1 [facility] Work Phone: Comment on above: Moderate Hemolysis, Result may be falsely increased. Sodium [Moles/Vol] 140 mmol/L 136-145 [facility] Work Phone: WBC (Bld) [#/Vol] 7.2 10*3/uL 4.4-11.0 [facility] Work Phone: Blood erythrocytes count (nu mber/volume)on 10-30-2021 RBC (Bld) [#/Vol] 4.96 10*6/uL 4.6-6.2 [facility] Work Phone: Blood hemoglobin measurement (mass/volume)on 10-30-2021 Hemoglobin (Bld) [Mass/Vol] 16.4 g/dL 13.0-16.5 [facility] Work Phone: Blood lymphocytes/100 leukoc yteson 10-30-2021 Lymphocytes/100 WBC (Bld) 27.6 % 19-41 [facility] Work Phone: Blood monocytes/100 leukocyt eson 10-30-2021 Monocytes/100 WBC (Bld) 10.3 % 0-10 [facility] Work Phone: Blood platelet mean volumeon 10-30-2021 Platelet mean volume (Bld) [Entitic vol] 9.7 fL 6.2-12.0 [facility] Work Phone: Determination of erythrocyte mean corpuscular volume (MCV)on 10-30-2021 MCV (RBC) [Entitic vol] 96.4 fL 80-94 [facility] Work Phone: [phone] Hematocrit Auto (Bld) [Volum e fraction]on 10-30-2021 Hematocrit (Bld) [Volume fraction] 47.8 % 40-54 [facility] Work Phone: [phone] Laboratory - Chemistry and C hemistry - challengeon 10-30-2021 CO2 [Moles/Vol] 30.0 mmol/L 21.0-32.0 [facility] Work Phone: [phone] Magnesium [Mass/Vol] 2.3 mg/dL 1.6-2.6 [facility] Work Phone: Comment on above: Moderate Hemolysis, Result may be falsely increased. Urea nitrogen/Creatinine [Mass ratio] 16.0 mg/mg 10-20 [facility] Work Phone: Laboratory - Hematology and Cell countson 10-30-2021 Erythrocyte distribution width (RBC) [Entitic vol] 44.9 fL 35.1-43.9 [facility] Work Phone: Erythrocyte distribution width (RBC) [Ratio] 12.7 % 11.6-14.6 [facility] Work Phone: Immature granulocytes/100 WBC (Bld) 0.300 % 0.0-0.9 [facility] Work Phone: [phone] Comment on above: IG% - Immature Granu locytes (promyelocytes, myelocytes and metamyelocytes) > 1% indicates that a LEFT SHIFT is Present. MCH (RBC) [Entitic mass] 33.1 pg 27.0-32.0 [facility] Work Phone: [phone] Nucleated RBC/100 WBC (Bld) [Ratio] 0 % 0-5 [facility] Work Phone: [phone] MCHC Auto (RBC) [Mass/Vol]on 10-30-2021 MCHC (RBC) [Mass/Vol] 34.3 g/dL 32-36 [facility] Work Phone: No Panel Informationon 10-30 Troponin I High Sensitivity < 3 pg/mL 3.0-78.0 [facility] Work Phone: Comment on above: Please Note: New Joan t Units and Gender Specific Reference Ranges. For more information see Policy Stat Procedure [place] High Sensitivity Troponin (TNIH) and attachments. Troponin I High Sensitivity < 3 pg/mL 3.0-78.0 [facility] Work Phone: [phone] Comment on above: Please Note: New Joan t Units and Gender Specific Reference Ranges. For more information see Policy Stat Procedure [place] High Sensitivity Troponin (TNIH) and attachments. D-Dimer Quantitative (PE/DVT) 0.37 FEU/ug/m 0.27-0.49 [facility] Work Phone: [phone] Comment on above: NORMAL D-Dimer level (<0.50) indicates no DVT or PE. Estimated Creatinine Clearance Calc 74.27 ml/min [facility] Work Phone: [phone] Estimated GFR (MDRD) Amer 81 mL/min >60 [facility] Work Phone: [phone] Comment on above: GFR Calc Estimated GFR (MDRD) Non-Af Amer 67 mL/min >60 [facility] Work Phone: [phone] Comment on above: Non- GFR Calc Platelets bldon 10-30-2021 Platelets (Bld) [#/Vol] 235 10*3/uL 150-450 [facility] Work Phone: Serum or plasma calcium randa urement (mass/volume)on 10-30-2021 Calcium [Mass/Vol] 9.5 mg/dL 8.5-10.1 [facility] Work Phone: Serum or plasma creatinine m easurement (mass/volume)on 10-30-2021 Creatinine [Mass/Vol] 1.19 mg/dL 0.70-1.30 [facility] Work Phone: Comment on above: The validity of the calculated GFR & GFRAA in patients over 70 years has not been determined. Clinical correlation is essential. Serum or plasma urea nitroge n measurement (mass/volume)on 10-30-2021 Urea nitrogen [Mass/Vol] 19 mg/dL 7-18 [facility] Work Phone: Thin prep Papanicolaou smear with manual screeningon 10-30-2021 Thin prep Papanicolaou smear with manual screening 4 5-15 [facility] Work Phone: Office Visiton 01-20-2017 Dietary management education, guidance, and counseling (procedure) yes Invalid Interpretation Code [facility] Work Phone: [phone] Documentation of current medications (procedure) Done Invalid Interpretation Code [facility] Work Phone: [phone] Fall risk assessment No Invalid Interpretation Code [facility] Work Phone: [phone] Lab Report: Bilirubin, Direc ton 12-02-2016 Bilirubin (direct) 0.10 mg/dL Invalid Interpretation Code 0.00-0.30 [facility] Work Phone: [phone] Lab Report: Comprehensive Me tabolic Profilon 12-02-2016 Alanine aminotransferase (ALT) 55 U/L Invalid Interpretation Code 12-78 [facility] Work Phone: [phone] Albumin 4.0 g/dL Invalid Interpretation Code 3.4-5.0 [facility] Work Phone: [phone] Albumin/Globulin Ratio 1 {ratio} Invalid Interpretation Code 0.9-2.4 [facility] Work Phone: [phone] Alkaline phosphatase (ALP) 89 U/L Invalid Interpretation Code 45-117 [facility] Work Phone: [phone] ALP enzyme act/vol (Bld) 89 U/L 45-117 [facility] Work Phone: [phone] Anion gap 5 mmol/L Invalid Interpretation Code 5-15 [facility] Work Phone: [phone] Anion gap molar conc 5 mmol/L 5-[address] [facility] Work Phone: [phone] Aspartate aminotransferase (AST) 38 U/L High 15-37 [facility] Work Phone: [phone] Bilirubin (total) 0.40 mg/dL Invalid Interpretation Code 0.20-1.00 [facility] Work Phone: [phone] BUN/Creatinine Ratio 16.4 RATIO Invalid Interpretation Code 10-20 [facility] Work Phone: [phone] Calcium 8.8 mg/dL Invalid Interpretation Code 8.5-10.1 [facility] Work Phone: [phone] Chloride 108 mmol/L High 98-107 [facility] Work Phone: [phone] CO2 25.0 mmol/L Invalid Interpretation Code 21.0-32.0 [facility] Work Phone: [phone] CO2 ppres (BldV) 25.0 mmol/L 21.0-32.0 [facility] Work Phone: [phone] Creatinine 1.10 mg/dL Invalid Interpretation Code 0.70-1.30 [facility] Work Phone: [phone] eGFR (non-black) 74 mL/min/{1.73_m2} Invalid Interpretation Code >60 [facility] Work Phone: [phone] eGFR (non-black) 90 mL/min/{1.73_m2} Invalid Interpretation Code >60 [facility] Work Phone: [phone] EST GFR - AA 90 mL/min >60 [facility] Work Phone: [phone] Globulin 3.9 g/dL High 2.3-3.5 [facility] Work Phone: [phone] Globulin mass conc (S) 3.9 g/dL High 2.3-3.5 [facility] Work Phone: [phone] Glucose 89 mg/dL Invalid Interpretation Code 70-110 [facility] Work Phone: [phone] Glucose mass conc 89 mg/dL 70-110 [facility] Work Phone: [phone] Potassium molar conc 4.1 mmol/L Invalid Interpretation Code 3.5-5.1 [facility] Work Phone: [phone] Protein 7.9 g/dL Invalid Interpretation Code 6.4-8.2 [facility] Work Phone: [phone] Sodium 138 mmol/L Invalid Interpretation Code 136-145 [facility] Work Phone: [phone] Urea nitrogen 18 mg/dL Invalid Interpretation Code 7-18 [facility] Work Phone: [phone] Lab Report: Lipid Profileon 12-02-2016 Cholesterol 146 mg/dL Invalid Interpretation Code 200 [facility] Work Phone: [phone] HDL Cholesterol 55 mg/dL Invalid Interpretation Code [facility] Work Phone: [phone] LDL Cholesterol 64 mg/dL Invalid Interpretation Code 0-130 [facility] Work Phone: [phone] Triglyceride 135 mg/dL Invalid Interpretation Code [facility] Work Phone: [phone] very low density lipoproteins 27 mg/dL Invalid Interpretation Code 5-40 [facility] Work Phone: [phone] Lab Report: PSA,Total - [place] al Screenon 12-02-2016 prostate specific antigen (PSA) screening 0.43 ng/mL Invalid Interpretation Code 0.00-4.00 [facility] Work Phone: [phone] Protein mass conc 0.43 ng/mL 0.00-4.00 [facility] Work Phone: [phone] PSA,TOT SCREEN 0.43 ng/mL Invalid Interpretation Code 0.00-4.00 [facility] Work Phone: [phone] Office Visit: [facility] 07-09-20 16 Documentation of current medications (procedure) Done Invalid Interpretation Code [facility] Work Phone: Protein mass conc Done [facility] Work Phone: Replaced Document: Fernanda Ybarra CG Observationson 07-09-2016 EKG QRS axis -27 deg [facility] Work Phone: [phone] electrocardiogram interpretation Sinus Rhythm Low voltage in limb leads. ABNORMAL Invalid Interpretation Code [facility] Work Phone: [phone] GE use only - for [employer] import when terms are not otherwise specified 406 ms Invalid Interpretation Code [facility] Work Phone: Interpretation Sinus Rhythm Low voltage in limb leads. ABNORMAL [facility] Work Phone: [phone] P [place] 42 deg [facility] Work Phone: [phone] P wave axis, electrocardiogram 42 deg Invalid Interpretation Code [facility] Work Phone: [phone] SC Interval 162 ms [facility] Work Phone: [phone] SC interval, electrocardiogram 162 ms Invalid Interpretation Code [facility] Work Phone: [phone] Pulse (Heart Rate) 75 /min Invalid Interpretation Code [facility] Work Phone: QRS axis, electrocardiogram -27 deg Invalid Interpretation Code [facility] Work Phone: [phone] QRS Duration 102 ms [facility] Work Phone: QRS duration, electrocardiogram 102 ms Invalid Interpretation Code [facility] Work Phone: QT Interval new path ms [facility] Work Phone: QT interval, electrocardiogram new path ms Invalid Interpretation Code [facility] Work Phone: QTc Chan 406 ms [facility] Work Phone: T [place] 26 deg [facility] Work Phone: T wave axis, electrocardiogram 26 deg Invalid Interpretation Code [facility] Work Phone: Office Visiton 01-05-2016 Dietary management education, guidance, and counseling (procedure) yes Invalid Interpretation Code [facility] Work Phone: Clinical Lists Update: 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 Left ventricular Ejection fraction 55 % Invalid Interpretation Code [facility] Work Phone: [phone] Lab Report: Thyroid Stim Hor nikole (TSH)on 11-01-2015 Thyroid stimulating hormone (TSH) 1.25 u[iU]/mL Invalid Interpretation Code 0.358-3.74 [facility] Work Phone: [phone] Office Visit: [facility] 05-05-20 15 Tobacco smoking status NHIS Former smoker [facility] Work Phone: [phone] Tobacco use CPHS Former smoker Invalid Interpretation Code [facility] Work Phone: [phone] Office Visiton 11-04-2014 cardiac risk group C Invalid Interpretation Code [facility] Work Phone: [phone] General cardiovascular disease 10Y risk [#] Pelzer.D'Agostino N/A Invalid Interpretation Code [facility] Work Phone: [phone] Vital Signs Date Time Vital Sign Value Performing Clinician Faci lity 05-05-2025 08:28-0400 Body height 182.[address] Eduard Henley MD Work Phone: [facility] 05-05-2025 08:28-0400 Body mass index (BMI) [Ratio] 26.8 kg/m2 Dr. Eduard Henley MD Work Phone: [facility] 05-05-2025 08:28-0400 Body weight 89.[address] Eduard Henley MD Work Phone: [facility] 05-05-2025 08:28-0400 Diastolic blood pressure 78 mm[Hg] Dr. Eduard Henley MD Work Phone: [facility] 05-05-2025 08:28-0400 Heart rate 75 /min Dr. Eduard Henley MD Work Phone: [facility] 05-05-2025 08:28-0400 Respiratory rate 16 /min Dr. Eduard Henley MD Work Phone: [facility] 05-05-2025 08:28-0400 SaO2% (BldA) [Mass fraction] 98 % Dr. Eduard Henley MD Work Phone: [facility] 05-05-2025 08:28-0400 Systolic blood pressure 138 mm[Hg] Dr. Eduard Henley MD Work Phone: [facility] 01-22-2025 22:23-0400 Body temperature 97.9 [degF] Dr. Eduard Henley MD Work Phone: 6(872)224-716365 [place] [address] 01-22-2025 22:23-0400 Diastolic blood pressure 77 mm[Hg] Dr. Eduard Henley MD Work Phone: 8(878)203-990365 [place] [address] 01-22-2025 22:23-0400 Heart rate 104 /min Dr. Eduard Henley MD Work Phone: 8(529)917-454958 [place] [address] 01-22-2025 22:23-0400 Respiratory rate 13 /min Dr. Eduard Henley MD Work Phone: 1(611)364-883158 [place] [address] 01-22-2025 22:23-0400 SaO2% (BldA) [Mass fraction] 98 % Dr. Eduard Henley MD Work Phone: 7(360)847-648658 [place] [address] 01-22-2025 22:23-0400 Systolic blood pressure 120 mm[Hg] Dr. Eduard Henley MD Work Phone: 2(951)001-575865 [place] [address] 01-22-2025 21:30-0400 Inhaled oxygen flow rate 2 L/min Dr. Eduard Henley MD Work Phone: 8(722)247-031965 [place] [address] 01-22-2025 20:30-0400 Body height 182.[address] Eduard Henley MD Work Phone: 2(121)726-679158 [place] [address] 01-22-2025 20:30-0400 Body mass index (BMI) [Ratio] 29 kg/m2 Dr. Eduard Henley MD Work Phone: 9(957)208-410065 [place] [address] 01-22-2025 20:30-0400 Body weight 97.[address] Eduard Henley MD Work Phone: 8(758)473-262758 [place] [address] 01-22-2025 18:07-0400 Diastolic blood pressure 91 mm[Hg] Dr. Eduard Henley MD Work Phone: [facility] 01-22-2025 18:07-0400 Systolic blood pressure 145 mm[Hg] Dr. Eduard Henley MD Work Phone: [facility] 01-22-2025 17:00-0400 Heart rate 72 /min Dr. Edaurd Henley MD Work Phone: 9(443)447-551165 [place] [address] 01-22-2025 17:00-0400 Respiratory rate 18 /min Dr. Eduard Henley MD Work Phone: 2(351)803-885697 [address] 01-22-2025 17:00-0400 SaO2% (BldA) [Mass fraction] 100 % Dr. Eduard Henley MD Work Phone: 4(911)127-395897 [address] 01-22-2025 13:46-0400 Body height 182.[address] Eduard Henley MD Work Phone: 8(863)168-344465 [place] [address] 01-22-2025 13:46-0400 Body mass index (BMI) [Ratio] 27.1 kg/m2 Dr. Eduard Henley MD Work Phone: 8(429)350-612765 [place] [address] 01-22-2025 13:46-0400 Body temperature 97.5 [degF] Dr. Eduard Henley MD Work Phone: 1(087)091-120565 [place] [address] 01-22-2025 13:46-0400 Body weight 90.[address] Eduard Henley MD Work Phone: 3(449)940-506265 [place] [address] 09-03-2024 03:53-0500 Body temperature 98 [degF] Dr. Eduard Henley MD Work Phone: 5(489)572-169497 [address] 09-03-2024 03:53-0500 Diastolic blood pressure 100 mm[Hg] Dr. Eduard Henley MD Work Phone: 7(836)166-680965 [place] [address] 09-03-2024 03:53-0500 Heart rate 86 /min Dr. Eduard Henley MD Work Phone: 0(056)440-526958 [place] [address] 09-03-2024 03:53-0500 Respiratory rate 18 /min Dr. Eduard Henley MD Work Phone: 0(044)483-273758 [place] [address] 09-03-2024 03:53-0500 SaO2% (BldA) [Mass fraction] 98 % Dr. Eduard Henley MD Work Phone: 1(707)966-926758 [place] [address] 09-03-2024 03:53-0500 Systolic blood pressure 145 mm[Hg] Dr. Eduard Henley MD Work Phone: 7(469)157-124458 [place] [address] 09-03-2024 00:23-0500 Body mass index (BMI) [Ratio] 28.6 kg/m2 Dr. Eduard Henley MD Work Phone: 5(042)152-482158 [place] [address] 09-03-2024 00:23-0500 Body weight 95.[address] Eduard Henley MD Work Phone: 1(374)987-825458 [place] [address] 08-06-2024 13:53-0500 Body mass index (BMI) [Ratio] 28 kg/m2 Dr. Eduard Henley MD Work Phone: 9(828)075-341158 [place] [address] 08-06-2024 13:53-0500 Body weight 93.[address] Eduard Henley MD Work Phone: 2(154)925-415158 [place] [address] 08-06-2024 13:53-0500 Diastolic blood pressure 89 mm[Hg] Dr. Eduard Henley MD Work Phone: 0(924)124-117758 [place] [address] 08-06-2024 13:53-0500 Heart rate 89 /min Dr. Eduard Henley MD Work Phone: 7(909)036-868658 [place] [address] 08-06-2024 13:53-0500 Respiratory rate 16 /min Dr. Eduard Henley MD Work Phone: 0(728)761-317358 [place] [address] 08-06-2024 13:53-0500 Systolic blood pressure 138 mm[Hg] Dr. Eduard Henley MD Work Phone: 8(912)154-182858 [place] [address] 10-02-2023 08:45-0500 Body temperature 98.6 [degF] Dr. Sergei Henley Work Phone: [facility] 10-02-2023 08:45-0500 Diastolic blood pressure 84 mm[Hg] Dr. Sergei Henley Work Phone: [facility] 10-02-2023 08:45-0500 Heart rate 83 /min Dr. Sergei Henley Work Phone: 9(979)360-618965 [place] [address] 10-02-2023 08:45-0500 Respiratory rate 18 /min Dr. Sergei Henley Work Phone: [facility] 10-02-2023 08:45-0500 SaO2% (BldA) [Mass fraction] 97 % Dr. Sergei Henley Work Phone: 8(473)866-259665 [place] [address] 10-02-2023 08:45-0500 Systolic blood pressure 117 mm[Hg] Dr. Sergei Henley Work Phone: [phone] [place] [address] 10-02-2023 06:44-0500 Body height 182.[address] Sergei Henley Work Phone: [phone] [address] 10-02-2023 06:44-0500 Body mass index (BMI) [Ratio] 27.5 kg/m2 Dr. Sergei Henley Work Phone: [phone] [place] [address] 10-02-2023 06:44-0500 Body weight [address] Sergei Henley Work Phone: [phone] [place] [address] 09-11-2023 08:30-0500 Body height 182.[address] Sergei Henley Work Phone: [phone] [address] 09-11-2023 08:27-0500 Body mass index (BMI) [Ratio] 28.6 kg/m2 Dr. Sergei Henley Work Phone: [facility] 09-11-2023 08:27-0500 Body weight 95.[address] Sergei Henley Work Phone: [phone] [place] [address] 09-11-2023 08:27-0500 Diastolic blood pressure 85 mm[Hg] Dr. Sergei Henley Work Phone: [facility] 09-11-2023 08:27-0500 Heart rate 77 /min Dr. Sergei Henley Work Phone: [facility] 09-11-2023 08:27-0500 Respiratory rate 18 /min Dr. Sergei Helney Work Phone: [facility] 09-11-2023 08:27-0500 Systolic blood pressure 141 mm[Hg] Dr. Sergei Henley Work Phone: [facility] 07-17-2023 08:17-0500 Body mass index (BMI) [Ratio] 28.9 kg/m2 Dr. Sergei Henley Work Phone: [facility] 07-17-2023 08:17-0500 Body temperature 97.2 [degF] Dr. Sergei Henley Work Phone: [facility] 07-17-2023 08:17-0500 Body weight 96.[address] Sergei Henley Work Phone: [facility] 07-17-2023 08:17-0500 Diastolic blood pressure 88 mm[Hg] Dr. Sergei Henley Work Phone: [facility] 07-17-2023 08:17-0500 Heart rate 78 /min Dr. Sergei Henley Work Phone: [facility] 07-17-2023 08:17-0500 Respiratory rate 18 /min Dr. Sergei Henley Work Phone: [facility] 07-17-2023 08:17-0500 SaO2% (BldA) [Mass fraction] 98 % Dr. Sergei Henley Work Phone: [facility] 07-17-2023 08:17-0500 Systolic blood pressure 125 mm[Hg] Dr. Sergei Henley Work Phone: [facility] 06-15-2023 07:26-0500 Body temperature 97.9 [degF] Dr. Sergei Henley Work Phone: [facility] 06-15-2023 07:26-0500 Diastolic blood pressure 83 mm[Hg] Dr. Sergei Henley Work Phone: [facility] 06-15-2023 07:26-0500 Heart rate 80 /min Dr. Sergei Henley Work Phone: [facility] 06-15-2023 07:26-0500 Respiratory rate 16 /min Dr. Sergei Henley Work Phone: [facility] 06-15-2023 07:26-0500 SaO2% (BldA) [Mass fraction] 99 % Dr. Sergei Henley Work Phone: [facility] 06-15-2023 07:26-0500 Systolic blood pressure 119 mm[Hg] Dr. Sergei Henley Work Phone: [facility] 06-14-2023 21:15-0400 Body height 182.[address] Sergei Henley Work Phone: [facility] 06-14-2023 21:15-0400 Body mass index (BMI) [Ratio] 29 kg/m2 Dr. Sergei Henley Work Phone: [facility] 06-14-2023 21:15-0400 Body weight 97.[address] Sergei Henley Work Phone: [facility] 06-14-2023 21:09-0400 Body temperature 98.4 [degF] Dr. Sergei Henley Work Phone: [facility] 06-14-2023 21:09-0400 Diastolic blood pressure 100 mm[Hg] Dr. Sergei Henley Work Phone: [facility] 06-14-2023 21:09-0400 Heart rate 88 /min Dr. Sergei Henley Work Phone: [facility] 06-14-2023 21:09-0400 Respiratory rate 22 /min Dr. Sergei Henley Work Phone: [facility] 06-14-2023 21:09-0400 SaO2% (BldA) [Mass fraction] 93 % Dr. Sergei Henley Work Phone: [facility] 06-14-2023 21:09-0400 Systolic blood pressure 152 mm[Hg] Dr. Sergei Henley Work Phone: [facility] 06-14-2023 16:36-0400 Body height 182.[address] Sergei Henley Work Phone: [facility] 06-14-2023 16:36-0400 Body mass index (BMI) [Ratio] 28.8 kg/m2 Dr. Sergei Henley Work Phone: [facility] 06-14-2023 16:36-0400 Body weight 96.[address] Sergei Henley Work Phone: [facility] 05-20-2023 13:29-0400 Body height 182.[address] Sergei Henley Work Phone: [facility] 05-20-2023 13:27-0400 Body mass index (BMI) [Ratio] 29.4 kg/m2 Dr. Sergei Henley Work Phone: [facility] 05-20-2023 13:27-0400 Body weight 98.[address] Sergei Henley Work Phone: [facility] 05-20-2023 13:27-0400 Diastolic blood pressure 80 mm[Hg] Dr. Sergei Henley Work Phone: [facility] 05-20-2023 13:27-0400 Heart rate 84 /min Dr. Sergei Henley Work Phone: [facility] 05-20-2023 13:27-0400 Respiratory rate 18 /min Dr. Sergei Henley Work Phone: [facility] 05-20-2023 13:27-0400 Systolic blood pressure 131 mm[Hg] Dr. Sergei Henley Work Phone: [facility] 04-25-2023 13:00-0400 Body mass index (BMI) [Ratio] 28.9 kg/m2 Dr. Sergei Henley Work Phone: [facility] 04-25-2023 10:23-0400 Body temperature 97.8 [degF] Dr. Sergei Henley Work Phone: [facility] 04-25-2023 10:23-0400 Diastolic blood pressure 78 mm[Hg] Dr. Sergei Henley Work Phone: [facility] 04-25-2023 10:23-0400 Heart rate 63 /min Dr. Sergei Henley Work Phone: [facility] 04-25-2023 10:23-0400 Respiratory rate 18 /min Dr. Sergei Henley Work Phone: [facility] 04-25-2023 10:23-0400 SaO2% (BldA) [Mass fraction] 96 % Dr. Sergei Henley Work Phone: [facility] 04-25-2023 10:23-0400 Systolic blood pressure 112 mm[Hg] Dr. Sergei Henley Work Phone: [facility] 04-24-2023 00:09-0400 Body height 182.[address] Sergei Henley Work Phone: [facility] 04-24-2023 00:09-0400 Body weight 96.[address] Sergei Henley Work Phone: [facility] 04-23-2023 23:38-0400 Body temperature 97.9 [degF] [facility] 04-23-2023 23:38-0400 Diastolic blood pressure 83 mm[Hg] [facility] 04-23-2023 23:38-0400 Heart rate 86 /min [facility] 04-23-2023 23:38-0400 Respiratory rate 17 /min [facility] 04-23-2023 23:38-0400 SaO2% (BldA) [Mass fraction] 99 % [facility] 04-23-2023 23:38-0400 Systolic blood pressure 126 mm[Hg] [facility] 04-23-2023 21:58-0400 Body height 182.88 cm [facility] 04-23-2023 21:58-0400 Body mass index (BMI) [Ratio] 29.5 kg/m2 [facility] 04-23-2023 21:58-0400 Body weight 98.7 kg [facility] 10-31-2021 10:52-0400 Body temperature 97.6 [degF] Dr. Sergei Henley Work Phone: [facility] Work Phone: 10-31-2021 10:52-0400 Diastolic blood pressure 86 mm[Hg] Dr. Sergei Henley Work Phone: [facility] Work Phone: 10-31-2021 10:52-0400 Heart rate 83 /min Dr. Sergei Henley Work Phone: [facility] Work Phone: 10-31-2021 10:52-0400 Respiratory rate 16 /min Dr. Sergei Henley Work Phone: [facility] Work Phone: 10-31-2021 10:52-0400 SaO2% (BldA) [Mass fraction] 96 % Dr. Sergei Henley Work Phone: [facility] Work Phone: 10-31-2021 10:52-0400 Systolic blood pressure 133 mm[Hg] Dr. Sergei Henley Work Phone: [facility] Work Phone: 10-30-2021 19:35-0400 Body height 182.[address] Sergei Henley Work Phone: [facility] Work Phone: 10-30-2021 19:35-0400 Body mass index (BMI) [Ratio] 29 kg/m2 Dr. Sergei Henley Work Phone: [facility] Work Phone: 10-30-2021 19:35-0400 Body weight [address] Sergei Henley Work Phone: [facility] Work Phone: 10-30-2021 19:18-0400 Body temperature 98.2 [degF] Dr. Sergei Henley Work Phone: [facility] Work Phone: 10-30-2021 19:18-0400 Diastolic blood pressure 89 mm[Hg] Dr. Sergei Henley Work Phone: [facility] Work Phone: 10-30-2021 19:18-0400 Heart rate 99 /min Dr. Sergei Henley Work Phone: [facility] Work Phone: 10-30-2021 19:18-0400 Respiratory rate 16 /min Dr. Sergei Henley Work Phone: [facility] Work Phone: 10-30-2021 19:18-0400 SaO2% (BldA) [Mass fraction] 99 % Dr. Sergei Henley Work Phone: [facility] Work Phone: 10-30-2021 19:18-0400 Systolic blood pressure 142 mm[Hg] Dr. Sergei Henley Work Phone: [facility] Work Phone: 10-30-2021 15:00-0400 Body mass index (BMI) [Ratio] 30.2 kg/m2 Dr. Sergei Henley Work Phone: [facility] Work Phone: 10-30-2021 15:00-0400 Body weight 100.[address] Sergei Henley Work Phone: [facility] Work Phone: 08-20-2021 07:38-0500 Diastolic blood pressure 75 mm[Hg] Dr. Sergei Henley Work Phone: [facility] Work Phone: 08-20-2021 07:38-0500 Systolic blood pressure 138 mm[Hg] Dr. Sergei Henley Work Phone: [facility] Work Phone: 08-14-2020 07:21-0500 Body mass index (BMI) [Ratio] 29.1 kg/m2 Dr. Sergei Henley Work Phone: [facility] Work Phone: 01-20-2017 08:42-0400 BMI (Body Mass Index) 28.34 kg/m2 [facility] Work Phone: 01-20-2017 08:42-0400 BP Diastolic 76 mm[Hg] Harumi DeFinis [facility] Work Phone: 01-20-2017 08:42-0400 BP Systolic 118 mm[Hg] Harumi DeFinis [facility] Work Phone: 01-20-2017 08:42-0400 Height 182.88 cm Harumi DeFinis [facility] Work Phone: 01-20-2017 08:42-0400 Pulse (Heart Rate) 88 /min Harumi DeFinis [facility] Work Phone: 01-20-2017 08:42-0400 Respiratory Rate 20 /min Harumi DeFinis [facility] Work Phone: 01-20-2017 08:42-0400 Weight 94.8 kg Harumi DeFinis [facility] Work Phone: 07-09-2016 08:40-0500 Heart rate 75 /min Harumi DeFinis [facility] Work Phone: 07-09-2016 08:26-0500 BMI (Body Mass Index) 28.33 kg/m2 Harumi Fernando [facility] Work Phone: 07-09-2016 08:26-0500 BP Diastolic 90 mm[Hg] Harumi DeFinis [facility] Work Phone: 07-09-2016 08:26-0500 BP Systolic 130 mm[Hg] Harumi DeFinhenrik [facility] Work Phone: 07-09-2016 08:26-0500 BSA (Body Surface Area) 2.17 m2 Harumi DeFinis [facility] Work Phone: 07-09-2016 08:26-0500 Pulse (Heart Rate) 75 /min Hartony DeFinhenrik [facility] Work Phone: 07-09-2016 08:26-0500 Respiratory Rate 16 /min Hartony DeFinis [facility] Work Phone: 07-09-2016 08:26-0500 Weight 94.76 kg Hartony DeFinhenrik [facility] Work Phone: 07-07-2010 15:49-0500 Height 182.88 cm Russellumi DeFinhenrik [facility] Work Phone: Encounters Encounter Date Encounter Type Care Provider Facility Start: 05-05-2025 End: 05-05-2025 Patient encounter procedure Mitchell Dubois [employer]C -[facility] Work Phone: Start: 05-05-2025 End: 05-05-2025 ambulatory Mitchell Dubois NP Facility:[facility] Start: 01-27-2025 End: 01-27-[address] Eduard Henley MD Work Phone: [facility] Work Phone: Start: 01-27-2025 End: 01-27-[address] Eduard Henley MD -[facility] Start: 01-27-2025 End: 01-27-2025 ambulatory Eduard Henley Facility:[facility] Start: 01-22-2025 End: 01-22-2025 Emergency department patient [...] 11-03-2024 Non-patient / Non-visit Dr. Vita SY -[facility] Start: 11-03-2024 End: 11-03-[address] Eduard Henley MD Work Phone: [facility] Work Phone: Start: 11-03-2024 End: 11-03-2024 Patient encounter procedure Mitchell Dubois [employer]-C -[facility] Work Phone: Start: 11-03-2024 End: 11-03-2024 ambulatory Mitchell Dubois NP Facility:[facility] Start: 09-28-2024 End: 09-28-[address] Eduard Henley MD -[facility] Start: 09-28-2024 End: 09-28-2024 ambulatory Eduard Henley Facility:[facility] Start: 09-03-2024 ambulatory Eduard Henley Faci lity:[facility] Start: 09-03-2024 Non-patient / Non-visit Dr. Francheska Ray MD -[facility] Work Phone: Start: 09-03-2024 End: 09-03-[address] Eileen Ray MD -[facility] Work Phone: Start: 09-03-2024 End: 09-03-2024 Emergency department patient visit Dr. Jesus Romero DO -Emergency Department Work Phone: Start: 09-03-2024 End: 09-03-2024 ambulatory Eduard Henley Facility:[facility] Start: 08-06-2024 End: 08-06-[address] Jose Lockwood MD -[facility] Work Phone: Start: 08-06-2024 End: 08-06-2024 ambulatory Eduard Henley Facility:[facility] Start: 05-18-2024 ambulatory Eduard Henley Faci lity:[facility] Start: 10-02-2023 Non-patient / Non-visit Dr. Mario Henley Work Phone: [facility] Start: 10-02-2023 End: 10-02-2023 Admission to same day surgery center Dr. Sergei Henley Work Phone: [facility] Work Phone: Start: 10-02-2023 End: 10-02-[address] Sergei Henley Work Phone: [facility] Work Phone: Start: 09-11-2023 End: 09-11-[address] Sergei Henley Work Phone: [facility] Work Phone: Start: 09-10-2023 End: 09-10-[address] Sergei Henley Work Phone: [facility] Work Phone: Start: 09-10-2023 End: 09-10-[address] Sergei Henley Work Phone: [facility] Start: 07-17-2023 End: 07-17-[address] Sergei Henley Work Phone: [facility] Work Phone: Start: 07-07-2023 End: 07-07-[address] Sergei Henley Work Phone: [facility] Work Phone: Start: 07-07-2023 End: 07-07-[address] Sergei Henley Work Phone: [facility] Work Phone: Start: 06-15-2023 Non-patient / Non-visit Dr. Mario Henley Work Phone: [facility] Work Phone: Start: 06-14-2023 End: 06-15-2023 Evaluation and management of inpatient Dr. Sergei Henley Work Phone: [facility] Work Phone: Start: 06-14-2023 End: 06-15-[address] Sergei Henley Work Phone: [facility] Work Phone: Start: 06-02-2023 End: 06-02-[address] Sergei Henley Work Phone: [facility] Work Phone: Start: 06-02-2023 End: 06-02-[address] Sergei Henley Work Phone: [facility] Start: 05-20-2023 End: 05-20-[address] Sergei Henley Work Phone: [facility] Work Phone: Start: 04-25-2023 Non-patient / Non-visit Dr. Mario Henley Work Phone: [facility] Work Phone: Start: 04-25-2023 Non-patient / Non-visit Dr. Mario Henley Work Phone: [facility] Start: 04-24-2023 Non-patient / Non-visit Dr. Mario Henley Work Phone: [facility] Start: 04-23-2023 Non-patient / Non-visit Dr. Mario Henley Work Phone: [facility] Work Phone: Start: 04-23-2023 End: 04-25-2023 Evaluation and management of inpatient [facility] Work Phone: Start: 05-06-2022 End: 05-06-2022 ambulatory [facility] Work Phone: Start: 05-06-2022 End: 05-06-2022 Patient encounter procedure [facility] Start: 10-31-2021 Non-patient / Non-visit Dr. Mario Henley Work Phone: [facility] Start: 10-30-2021 Non-patient / Non-visit Dr. Mario Henley Work Phone: [facility] Start: 10-30-2021 End: 10-31-2021 Evaluation and management of inpatient [facility] Serge[facility] Start: 08-20-2021 End: 08-20-[address] Sergei Henley Work Phone: [facility] Procedures Date [...] med using the TPSA assay method for Siving Egil [employer] chemistry system. Values obtained with differentassay methods [...] Date Care Activity Detail Author Start: 01-22-2025 [facility] Start: 01-22-2025 End: 01-22-2025 [facility] Start: 09-03-2024 [facility] Start: 02-22-2024 Patient discharge [facility] Start: 06-15-2023 Patient discharge [facility] Start: 06-14-2023 Following clinical pathway protocol [facility] Start: 06-14-2023 Assessment of risk of venous thromboembolism [facility] Start: 06-14-2023 Inhalation therapy procedure [facility] Start: 06-14-2023 Insertion of catheter into peripheral vein [facility] Start: 06-14-2023 Providing care according to standard [facility] Start: 06-14-2023 Provision of activity privileges [facility] Start: 06-14-2023 [facility] Start: 06-14-2023 Admission procedure [facility] Start: 06-14-2023 Verification routine [facility] Start: 06-14-2023 Hospital admission, emergency, from emergency room, medical nature [facility] Start: 04-25-2023 Patient referral [facility] Work Phone: Start: 04-25-2023 Patient discharge [facility] Start: 04-24-2023 Cardiac monitoring [facility] Start: 04-24-2023 Cardiac rehabilitation - phase 1 [facility] Start: 04-24-2023 Cardiac rehabilitation - phase 2 [facility] Start: 04-24-2023 Patient discharge [facility] Start: 04-24-2023 Systemic arterial pressure monitoring [facility] Start: 04-24-2023 End: 04-24-2023 Taking patient vital signs [facility] Start: 04-24-2023 Vascular disease risk assessment [facility] Start: 04-24-2023 Vital signs measurements [facility] Start: 04-24-2023 End: 04-24-2023 [facility] Start: 04-24-2023 End: 04-24-2023 Notification of physician [facility] Start: 04-24-2023 Patient education [facility] Start: 04-24-2023 Provision of activity privileges [facility] Start: 04-24-2023 Pulse taking [facility] Start: 04-24-2023 Wound care [facility] Start: 04-24-2023 Referral to machine package sealer [facility] Start: 04-24-2023 Following clinical pathway protocol [facility] Start: 04-24-2023 Assessment of risk of venous thromboembolism [facility] Start: 04-24-2023 Cardiac monitoring [facility] Start: 04-24-2023 Catheterization of vein [facility] Start: 04-24-2023 Elevation of head of bed [facility] Start: 04-24-2023 Exercises [facility] Start: 04-24-2023 Implementation of planned interventions [facility] Start: 04-24-2023 Insertion of catheter into peripheral vein [facility] Start: 04-24-2023 Measuring intake and output [facility] Start: 04-24-2023 Notification of physician [facility] Start: 04-24-2023 Providing care according to standard [facility] Start: 04-24-2023 Provision of activity privileges [facility] Start: 04-24-2023 Referral to occupational therapist [facility] Start: 04-24-2023 Referral to service [facility] Start: 04-24-2023 Speech therapy assessment [facility] Start: 04-24-2023 Tobacco use cessation education [facility] Start: 04-24-2023 [facility] Start: 04-24-2023 Vital signs measurements [facility] Start: 04-23-2023 Electrocardiographic procedure [facility] Start: 04-23-2023 Verification routine [facility] Start: 04-23-2023 Admission procedure [facility] Start: 04-23-2023 Oxygen therapy [facility] Start: 04-23-2023 [facility] Start: 01-26-2018 End: 01-26-2018 Appointment Appointment [facility] Work Phone: Start: 08-12-2017 End: 08-12-2017 Appointment Appointment [facility] Phone: Start: 06-03-2017 End: 12-06-2016 *Hepatic Function Panel *Hepatic Function Panel [facility] Phone: Start: 06-03-2017 End: 12-06-2016 Lipid panel [AGGREGATE] *Lipid Profile CC PCP [facility] Work Phone: Start: 06-03-2017 End: 12-06-2016 *Hepatic Function Panel *Hepatic Function Panel [facility] Work Phone: Start: 06-03-2017 End: 12-06-2016 Lipid panel [AGGREGATE] *Lipid Profile CC PCP [facility] Work Phone: Start: 01-20-2017 End: 01-20-2017 Appointment Appointment [facility] Work Phone: Start: 01-20-2017 End: 01-20-2017 Appointment Appointment [facility] Work Phone: Start: 01-20-2017 End: 01-20-2017 Follow Up Appt 6 months Follow Up Appt 6 months [facility] Work Phone: Start: 01-20-2017 End: 01-20-2017 MMM MMM [facility] Work Phone: Start: 11-28-2016 End: 12-02-2016 *Hepatic Function Panel *Hepatic Function Panel [facility] Work Phone: Start: 11-28-2016 End: 12-02-2016 Lipid panel [AGGREGATE] *Lipid Profile CC PCP [facility] Work Phone: Start: 11-28-2016 End: 12-02-2016 *Hepatic Function Panel *Hepatic Function Panel [facility] Work Phone: Start: 11-28-2016 End: 12-02-2016 Lipid panel [AGGREGATE] *Lipid Profile CC PCP [facility] Work Phone: Start: 07-09-2016 End: 07-09-2016 Follow Up Appt 6 months Follow Up Appt 6 months [facility] Work Phone: Start: 07-09-2016 End: 07-09-2016 PFM PFM [facility] Work Phone: Start: 07-09-2016 End: 07-09-2016 Follow Up Appt 6 months Follow Up Appt 6 months [facility] Work Phone: Start: 07-09-2016 End: 07-09-2016 PFM PFM [facility] Work Phone: Start: 05-03-2016 End: 05-30-2016 *Hepatic Function Panel *Hepatic Function Panel [facility] Work Phone: Start: 05-03-2016 End: 05-30-2016 Lipid panel [AGGREGATE] *Lipid Profile CC PCP [facility] Work Phone: Start: 05-03-2016 End: 05-30-2016 *Hepatic Function Panel *Hepatic Function Panel [facility] Work Phone: Start: 05-03-2016 End: 05-30-2016 Lipid panel [AGGREGATE] *Lipid Profile CC PCP [facility] Work Phone: Start: 01-05-2016 End: 01-05-2016 Follow Up Appt 6 months Follow Up Appt 6 months [facility] Work Phone: Start: 01-05-2016 End: 01-05-2016 MMM MMM [facility] Work Phone: Start: 01-05-2016 End: 01-05-2016 Follow Up Appt 6 months Follow Up Appt 6 months [facility] Work Phone: Start: 01-05-2016 End: 01-05-2016 MMM MMM [facility] Work Phone: Start: 10-31-2015 End: [...] w/least 12 lds w/i&r EKG (In office) [facility] Work Phone: Start: 05-05-2015 End: 05-05-2015 Follow Up Appt 6 months Follow Up Appt 6 months [facility] Work Phone: Start: 05-05-2015 End: 05-01-2015 Lipid panel [AGGREGATE] *Lipid Profile CC PCP [facility] Work Phone: Start: 05-05-2015 End: 05-30-2016 PFM PFM [facility] Work Phone: Start: 05-05-2015 End: 05-01-2015 *Hepatic Function Panel *Hepatic Function Panel [facility] Work Phone: Start: 05-05-2015 End: 05-30-2016 Electrocardiogram, complete EKG (In office) [facility] Work Phone: Start: 05-05-2015 End: 05-05-2015 Follow Up Appt 6 months Follow Up Appt 6 months [facility] Work Phone: Start: 05-05-2015 End: 05-01-2015 Lipid panel [AGGREGATE] *Lipid Profile CC PCP [facility] Work Phone: Start: 05-05-2015 End: 05-30-2016 PFM PFM [facility] Work Phone: Start: 11-04-2014 End: 04-26-2015 *Hepatic Function Panel *Hepatic Function Panel [facility] Work Phone: Start: 11-04-2014 End: 04-26-2015 Follow Up Appt 6 months Follow Up Appt 6 months [facility] Work Phone: Start: 11-04-2014 End: 04-26-2015 Lipid panel [AGGREGATE] *Lipid Profile CC PCP [facility] Work Phone: Start: 11-04-2014 End: 04-26-2015 MMM MMM [facility] Work Phone: Start: 11-04-2014 End: 04-26-2015 *Hepatic Function Panel *Hepatic Function Panel [facility] Work Phone: Start: 11-04-2014 End: 04-26-2015 Follow Up Appt 6 months Follow Up Appt 6 months [facility] Work Phone: Start: 11-04-2014 End: 04-26-2015 Lipid panel [AGGREGATE] *Lipid Profile CC PCP [facility] Work Phone: Start: 11-04-2014 End: 04-26-2015 MMM MMM [facility] Work Phone: Start: 10-31-2014 End: 11-03-2014 *Hepatic Function Panel *Hepatic Function Panel [facility] Work Phone: Start: 10-31-2014 End: 11-03-2014 Lipid panel [AGGREGATE] *Lipid Profile CC PCP [facility] Work Phone: Start: 10-31-2014 End: 11-03-2014 *Hepatic Function Panel *Hepatic Function Panel [facility] Work Phone: Start: 10-31-2014 End: 11-03-2014 Lipid panel [AGGREGATE] *Lipid Profile CC PCP [facility] Work Phone: Start: 05-02-2014 End: 04-26-2015 Follow Up Appt 6 months Follow Up Appt 6 months [facility] Work Phone: Start: 05-02-2014 End: 04-26-2015 PFM PFM [facility] Work Phone: Start: 05-02-2014 End: 04-26-2015 Follow Up Appt 6 months Follow Up Appt 6 months [facility] Work Phone: Start: 05-02-2014 End: 04-26-2015 PFM PFM [facility] Work Phone: Start: 04-11-2014 End: [...] 6 months Follow Up Appt 6 months [facility] Work Phone: Start: 10-25-2013 End: 11-09-2013 Lipid panel [AGGREGATE] *Lipid Profile CC PCP [facility] Work Phone: Start: 10-25-2013 End: [...] stress test -exercise Nuclear stress test -exercise [facility] Work Phone: Start: 05-11-2013 End: 06-07-2013 *Hepatic Function Panel *Hepatic Function Panel [facility] Work Phone: Start: 05-11-2013 End: 06-07-2013 Lipid panel [AGGREGATE] *Lipid Profile [facility] Work Phone: Start: 05-11-2013 End: 06-07-2013 *Hepatic Function Panel *Hepatic Function Panel [facility] Work Phone: Start: 05-11-2013 End: 06-07-2013 Lipid panel [AGGREGATE] *Lipid Profile [facility] Work Phone: Start: 01-11-2013 End: 01-11-2013 Follow Up Appt 6 months Follow Up Appt 6 months [facility] Work Phone: Start: 01-11-2013 End: 01-11-2013 PFM PFM [facility] Work Phone: Start: 01-11-2013 End: 01-11-2013 Follow Up Appt 6 months Follow Up Appt 6 months [facility] Work Phone: Start: 01-11-2013 End: 01-11-2013 PFM PFM [facility] Work Phone: Start: 11-09-2012 End: 11-11-2012 *Hepatic Function Panel *Hepatic Function Panel [facility] Work Phone: Start: 11-09-2012 End: 11-11-2012 Lipid panel [AGGREGATE] *Lipid Profile [facility] Work Phone: Start: 11-09-2012 End: 11-11-2012 *Hepatic Function Panel *Hepatic Function Panel [facility] Work Phone: Start: 11-09-2012 End: 11-11-2012 Lipid panel [AGGREGATE] *Lipid Profile [facility] Work Phone: Start: 06-01-2012 End: 06-10-2012 *Hepatic Function Panel *Hepatic Function Panel [facility] Work Phone: Start: 06-01-2012 End: 12-30-2012 Follow Up Appt 6 months Follow Up Appt 6 months [facility] Work Phone: Start: 06-01-2012 End: 06-10-2012 Lipid panel [AGGREGATE] *Lipid Profile [facility] Work Phone: Start: 06-01-2012 End: 06-10-2012 *Hepatic Function Panel *Hepatic Function Panel [facility] Work Phone: Start: 06-01-2012 End: 12-30-2012 Follow Up Appt 6 months Follow Up Appt 6 months [facility] Work Phone: Start: 06-01-2012 End: 06-10-2012 Lipid panel [AGGREGATE] *Lipid Profile [facility] Work Phone: Start: 11-28-2011 End: 11-28-2011 Follow Up Appt 6 months Follow Up Appt 6 months [facility] Work Phone: Start: 11-28-2011 End: 11-28-2011 Follow Up Appt 6 months Follow Up Appt 6 months [facility] Work Phone: Lipid 1996 panel - S sharon or Plasma [facility] Patient Education [facility] Work Phone: Patient referral [facility] Work Phone: Troponin T.cardiac [Mass/volume] in Serum or Plasma by High sensitivity method [facility] Immunizations Immunization Date Immunization Notes Care Provider Fa cili 05-11-2021 Influenza, high dose seasonal Dr. Eduard Henley MD Work Phone: [facility] 05-11-2021 influenza, high dose seasonal, preservative-free Dr. Sergei Henley Work Phone: [facility] 06-25-[address] Sergei Henley Work Phone: [facility] 01-11-2014 tetanus and diphther ia toxoids, adsorbed, preservative free, for adult use (2 Lf of tetanus toxoid and 2 Lf of diphtheria toxoid) Dr. Sergei Henley Work Phone: [facility] Payers Date Payer Category Payer Private Health Insurance [id number] 2024 Private Health Insurance [id number] 2024 Self-pay [id number] 2011 Private Health Insurance [id number] Unknown [id number] 2.16.8 [id number] Unknown [id number] 2.16.8 [id number] Unknown [id number] 2.16.8 [id number] Unknown [id number] 2.16.8 [id number] Unknown [id number] 2.16.8 [id number] Unknown [id number] 2.16.8 [id number] Unknown [id number] 2.16.8 [id number] Unknown [id number] 2.16.8 [id number] Unknown [id number] 2.16.8 [id number] Unknown [id number] 2.16.8 [id number] Unknown [id number] 2.16.8 [id number] Unknown [id number] 2.16.8 [id number] Unknown [id number] 2.16.8 [id number] Social History Date Type Detail Facility Start: 10-30-2021 End: 09-25-2023 Tobacco smoking status NHIS Unknown if ever smoked [facility] Start: 10-23-2017 Heavy [facility] Start: 10-23-2017 None [facility] Start: 10-23-2017 Spouse/ Signif icant Other [facility] Start: 10-23-2017 Cigars [facility] Start: 1965 Sex Assigned At Male [facility] Start: 04-25-2023 - [facility] Start: 10-27-2024 End: 01-22-2025 Tobacco smoking status NHIS Ex-smoker (finding) [facility] Start: 11-07-2024 Sex Male (finding) [facility] Sex Male [facility] Medical Equipment Procedure Code Equipment Code Equipment Origin al Text Equipment Identifier Dates Drug-eluting coronary artery stent, wum-empqmvxsneljc-wj lymer-coated ()[id number] 24 FDA Start: 04-24-2023 Drug-eluting coronary artery stent, clv-rajpyeuinezyf-jz lymer-coated ()[id number] 02 FDA Start: 04-24-2023 Goals Date Patient Goal Desired Activity /State Functional Status Date Assessment Result Facility 06-15-2023 Functional status Activity Ability Indepe ndent [facility] Work Phone: 04-25-2023 Functional status Ambulates;Up a d jovon;Bathroom Privilege [facility] Work Phone: 10-31-2021 Functional status Independent [facility] Work Phone: Mental Status Date Assessment Result Facility 01-22-2025 Cognitive function Voice/Name [facility] Work Phone: 09-03-2024 Cognitive function Voice/Name [facility] Work Phone: 10-02-2023 Cognitive function Voice/Name [facility] Work Phone: 06-14-2023 Cognitive function Appropriate;Cooperativ e [facility] Work Phone: 04-25-2023 Cognitive function Voice/Name [facility] Work Phone: 04-23-2023 Cognitive function Voice/Name [facility] Work Phone: 10-31-2021 Cognitive function Voice/Name [facility] Work Phone: 10-30-2021 Cognitive function Voice/Name [facility] Work Phone: Clinical Notes 06-11-2010 to 05-05-2025 Note Date & Type Note Facility 05-05-2025 Progress note [facility] 01-22-2025 Discharge summary [facility] 01-22-2025 Discharge summary [facility] 01-22-2025 Radiology Diagnostic study note [facility] Imaging Services [address] [place], [place] [address] Chest 1 View (Portable) MR#: [id number] Acct: [id number] Name: JOVANY MUÑIZ Rep #: [id number] : 1965 M 59 From: Shanelle Ramos MD PCP: Dr. Eduard Henley MD Status: REG ER Study:Chest 1 View (Portable) Date of Exam: 01/22/25 Exam# [id number] Ordering Dr: Dave Mercer MD PROCEDURE: CHEST 1 VIEW (PORTABLE) 01/22/2025 REASON FOR EXAM: CHEST PAIN TECHNIQUE: Frontal view of the chest. COMPARISON: Chest radiograph 09/03/2024. FINDINGS: Hardware: None. Heart: The heart size is normal. Lungs: No focal consolidation, pleural effusion or pneumothorax. Bones: Degenerative changes are identified within the thoracic spine. RAD/Chest 1 View (Portable) IMPRESSION: Negative Chest. Reading Location: [facility] CC: Dr. Eduard Henley MD; Dr. 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 dEuard Henley MD Status :REG ER Location: ED [...] TAD Risk Factors: Negative for Marfan's Syndrome [facility] Medical History Wears partial dentures High cholesterol Heartburn Gastric reflux History of diverticulitis Former smoker History of heart attack History of echocardiogram History of stress test Hypertension Cardiology follow-up encounter Sigmoid diverticulitis History of coronary artery disease Presence of stent in coronary artery (04/25/23) Essential hypertension HLD (hyperlipidemia) Old myocardial infarction Atherosclerotic heart disease of [place] coronary artery without angina pectoris (04/25/23) Home [...] in his cast. 5 out of 5 shoe cobbler strength. Equal and symmetrical radial pulses. Dorsi [...] % (Auto) 64.2 Lymph % (Auto) 22.1 [place] % (Auto) 10.1 H Eos % (Auto) [...] 01/22/25 14:25 IMPRESSION: Negative Chest. Reading Location: [facility] Chest x-ray, portable, single view interpreted by myself shows normal cardiac silhouette. Normal mediastinum. No goiter knob. Normal lung osman. No acuteprocess. Rhythm Strip Rhythm Strip: Sinus Rhythm Rate: 88 Ectopy: None EKG Initial EKG: Attestation: I personally reviewed and interpreted this EKG as follows: Interpretation: Sinus Rhythm and No Acute Injury Pattern Comments: Normal sinus rhythm rate 88 no acute signs of OK or ischemia. Discharge Plan Triage Chief Complaint: Chest Pain ED Provider: Robert Mercer Dx/Rx/DC Orders Clinical Impression: Chest pain, History of coronary artery disease, History of OK (myocardial infarction) Instructions: ED Chest Pain, Uncertain [...] bad we can find today. Print Language: Gabonese Disposition Disposition: Home, Self Care What to do if you have Problems For any increased pain, shortness of breath, bleeding, nausea or vomiting, chestpain, or any unexpected problems, contact your Primary Care Provider. Call [facility] ([phone]) or report to the closest Emergency Room. Call 911 if necessary. 01/22/251752 <Electronically signed by Robert Mercer MD> [facility] Signature (if applicable): CC: Dr. Eduard Henley MD ~ Signed [facility] Work Phone: 1(475) 497-146706-14-2025 Discharge summary Author Robert Mercer [facility] Note Date/Time January 22, 2025 10:1 6pm [facility] Medical Records Department [address] [place] [address] Emergency Department Summary 01/22/25 MR#: [id number] Acct: [id number] Name: JOVANY MUÑIZ Rep #:[id number] : 1965 59 From: Robert Mercer MD PCP: Dr. Eduard Henley MD Status :REG ER Location: ED HPI History of Present Illness Chief Complaint: Allergic Reaction Informant: patient and spouse/S.O. Onset/Context/Timing Onset: Today Context: Sudden Onset Timing: Continuous Current Severity: Moderate Maximum Severity: Moderate Narrative Narrative: 59-year-old male history of CAD OK stent. Seen earlier tonight for atypical back [...] Old myocardial infarction Atherosclerotic heart disease of [place] coronary artery without angina pectoris (04/25/23) Home [...] with your doctor as needed. Print Language: Gabonese Disposition Disposition: Home, Self Care What to do if you have Problems For any increased pain, shortness of breath, bleeding, nausea or vomiting, chestpain, or any unexpected problems, contact your Primary Care Provider. Call [facility] ([phone]) or report to the closest Emergency Room. Call 911 if necessary. 01/22/256 <Electronically signed by Robert Mercer MD> Cosigner Signature (if applicable): CC: Dr. Eduard Henley MD ~ Signed [facility] Work Phone: 1(856) 303-685404-01-2025 Evaluation note* Diagnosis Onset Date Resolution Status Admit Date Encounter for examination required by Department of 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) acute November 09, 2024 5:56am [facility] Work Phone: 1(107) 381-201912-27-2024 Evaluation note* Diagnosis Onset Date Resolution Status Admit Date HLD (hyperlipidemia) chronic Dece mber 2023 1:33pm Presence of coronary angioplasty implant and graft April 25, 2023 chronic August 062023 1:33pm [facility] Work Phone: 1(429) 209-883402-22-2024 Procedure [facility] 10-02-2023 [facility]2024 Procedure note [facility]02-22-2024 Procedure [facility] 06-15-2023 Progress note Author Rommel Youssef [facility] June 15, 2023 10:24am Note Date/Time June 15, 2023 7 :38am [facility] Medical Records Department [address] [place] [address] Progress Note - Hospitalist 06/15/23 0733 MR#: [id number] Acct: [id number] Name: JOVANY MUÑIZ Rep #:[id number] : 1965 57 From: Rommel Youssef DO PCP: Dr. Sergei Henley MD Status: ADM [place]EL[place] Location: [place]3 [id number] Subjective Subjective Feeling better. Tolerated full liquid [...] 83.8 H, Lymph % (Auto) 10.2 L, [place] % (Auto) 2.7, Eos % (Auto) 2.5, [...] Clarity Clear, Urine pH 7.0, Ur Specific [place] 1.010, Urine Protein Negative, Urine Glucose (UA) [...] 17:53 EDT Reading Location ID and State: [facility] / [place] Tel , Service support , Physical Exam [...] Cosigner Signature (if applicable): CC: ~ Signed [facility] Work Phone: 1(445) 449-904211-04-2023 History and physical note Author Meliza Ramírez [facility] June 14, 2023 7:41pm Note Date/Time June 14, 2023 7 :41pm [facility] Medical Records Department [address] [place] [address] H&P Exam - Hospitalist 06/14/231930 MR#: [id number] Acct: [id number] Name: JOVANY MUÑIZ Rep #:[id number] : 1965 57 From: Meliza Ramírez MD PCP: Dr. Sergei Henley MD Status: REG ER Location: ED HPI - General General Date of Admission: 06/14/23 Date of Service: 06/14/23 Chief Complaint: Abdominal pain HPI Narrative JOVANY MUÑIZ, is a 57-year-old male history of hypertension, coronary artery disease with stent placement 2 months ago who presented to [facility] 06/14/2023 with abdominal pain x1 day. [...] denied any withdrawal symptoms at that time. [facility] Medical History Atherosclerotic heart disease of [place] coronary artery without angina pectoris (04/25/23) Essential hypertension History of coronary artery disease HLD (hyperlipidemia) Old myocardial infarction Presence of stent in coronary artery (04/25/23) Home Medications aspirin 81 mg tablet,delayed release (Adult Low Dose Aspirin) [address] [facility] 08/06/17 [History Last Taken 10/30/21] buspirone 5 [...] subcutaneous pen injector (Repatha SureClick) 140 mg [id number] #2 mL 06/13/23 [Rx Last Taken Unknown] [...] 83.8 H, Lymph % (Auto) 10.2 L, [place] % (Auto) 2.7, Eos % (Auto) 2.5, [...] Clarity Clear, Urine pH 7.0, Ur Specific [place] 1.010, Urine Protein Negative, Urine Glucose (UA) [...] -On home losartan #DVT ppx: Lovenox subcu Mleiza Ramírez MD Time spent in the patient's overall evaluation,decision-making process, review of diagnostic data, adjustment of management, discussion with other providers, nursing nursing and ancillary staff involved in patient's care documentation, 56minutes Charges/Coding Visit Charges Inpatient E&M: 48500 Init Hosp L2 06/14/231940 <Electronically signed by Meliza Ramírez MD> Cosigner Signature (if applicable): CC: Dr. Sergei Henley MD; Dr. Meliza Ramírez MD~ Signed [facility] Work Phone: 1(872) 597-579111-04-2023 Discharge summary Author Donta Swenson [facility] June 14, 2023 7:24pm Note Date/Time June 14, 2023 4 :52pm [facility] Medical Records Department [address] [place] [address] Emergency Department Summary 06/14/23 MR#: [id number] Acct: [id number] Name: JOVANY MUÑIZ Rep #:[id number] : 1965 57 From: Donta Swenson MD PCP: Dr. Sergei eHnley MD Status: REG ER Location: ED HPI HPI - GI History of Present Illness Chief Complaint: Abd Pain Narrative Narrative: 57-year-old male past medical history of hyperlipidemia, hypertension, coronary artery disease presents with abdominal pain that he has had since yesterday morning. He relates history that he has an intolerance to statins. Few months ago he had an OK/stent placement, and was restarted on a statin. [...] yesterday and he is not passing gas. [facility] Medical History Atherosclerotic heart disease of [place] coronary artery without angina pectoris (04/25/23) Essential hypertension History of coronary artery disease HLD (hyperlipidemia) Old myocardial infarction Presence of stent in coronary artery (04/25/23) Home Medications aspirin 81 mg tablet,delayed release (Adult Low Dose Aspirin) [address] [facility] 08/06/17 [History Last Taken 10/30/21] buspirone 5 [...] subcutaneous pen injector (Repatha SureClick) 140 mg [id number] #2 mL 06/13/23 [Rx Last Taken Unknown] [...] 83.8 H Lymph % (Auto) 10.2 L [place] % (Auto) 2.7 Eos % (Auto) 2.5 [...] Clarity Clear Urine pH 7.0 Ur Specific [place] 1.010 Urine Protein Negative Urine Glucose (UA) [...] pain, Sigmoid diverticulitis Disposition Disposition: Acute Care [facility] What to do if you have Problems For any increased pain, shortness of breath, bleeding, nausea or vomiting, chestpain, or any unexpected problems, contact your Primary Care Provider. Call [facility] ([phone]) or report to the closest Emergency Room. Call 911 if necessary. 06/14/231923 <Electronically signed by Donta Swenson MD> Cosigner Signature (if applicable): CC: Dr. Sergei Henley MD ~ Signed [facility] Work Phone: 1(725) 344-860111-04-2023 Discharge summary Author Donta [facility] June 14, 2023 7:24pm Note Date/Time June 14, 2023 4 :52pm [facility] Medical Records Department [address] [place] [address] Emergency Department Summary 06/14/23 MR#: [id number] Acct: [id number] Name: JOVANY MUÑIZ Rep #:[id number] : 1965 57 From: Donta Swenson [...] statins. Few months ago he had an OK/stent placement, and was restarted on a statin. [...] yesterday and he is not passing gas. [facility] Medical History Atherosclerotic heart disease of [place] coronary artery without angina pectoris (04/25/23) Essential hypertension History of coronary artery disease HLD (hyperlipidemia) Old myocardial infarction Presence of stent in coronary artery (04/25/23) Home Medications aspirin 81 mg tablet,delayed release (Adult Low Dose Aspirin) [address] [facility] 08/06/17 [History Last Taken 10/30/21] buspirone 5 [...] subcutaneous pen injector (Repatha SureClick) 140 mg [id number] #2 mL 06/13/23 [Rx Last Taken Unknown] [...] 83.8 H Lymph % (Auto) 10.2 L [place] % (Auto) 2.7 Eos % (Auto) 2.5 [...] Clarity Clear Urine pH 7.0 Ur Specific [place] 1.010 Urine Protein Negative Urine Glucose (UA) [...] Sigmoid diverticulitis Disposition Disposition: Acute Care [facility] What to do if you have Problems For any increased pain, shortness of breath, bleeding, nausea or vomiting, chestpain, or any unexpected problems, contact your Primary Care Provider. Call [facility] ([phone]) or report to the closest Emergency Room. Call 911 if necessary. 06/14/231923 <Electronically signed by Donta Swenson MD> Cosigner Signature (if applicable): CC: Dr. Sergei Henley MD ~ Signed [facility] Work Phone: 1(325) 695-564609-15-2023 Discharge summary Author Rommel Youssef [facility] April 25, 2023 12:09pm Note Date/Time April 25, 2023 12:06pm [facility] Medical Records Department [address] [place] [address] Discharge Summary 04/25/23 1203 MR#: [id number] Acct: [id number] Name: JOVANY MUÑIZ Rep #:[id number] : 1965 57 From: Rommel Youssef DO PCP: Dr. Sergei Henley MD Status: ADM IN Location: [place] [address] Providers Date of Admission: 04/23/23 Primary Care [...] Clear Calc 89.08, Est GFR (MDRD) Af [id number], Est GFR (MDRD) Non-Af 83, BUN/Creatinine Ratio [...] not ordered:: Drug Interaction Done w/ Acute OK measure.: Yes Documented LVEF (%): 60 Discharge [...] 90 Patient Comments: Referrals / Follow Up: [facility] [Provider Group] - Within 1 Month Sergei Henley MD [Primary Care Provider] - Within 2 Weeks Disposition Disposition (needs filled in before D/C Order can be placed): Home, Self Care Charges/Coding Visit Charges Inpatient E&M: 40758 Disch Hosp >30min 04/25/23 1209 <Electronically signed by Rommel Youssef DO> Cosigner Signature (if applicable): CC: Dr. Sergei Henley MD; Dr. Rommel Youssef DO~ Signed [facility] Work Phone: 1(388) 909-634509-15-2023 Progress note Author Rommel Youssef [facility] April 25, 2023 12:03pm Note Date/Time April 25, 2023 8:51am [facility] Medical Records Department [address] [place] [address] Progress Note - Hospitalist 04/25/23 0850 MR#: [id number] Acct: [id number] Name: JOVANY MUÑIZ Rep #:[id number] : 1965 57 From: Rommel Youssef DO PCP: Dr. Sergei Henley MD Status: ADM IN Location: [address] 1 Reason for Visit Reason for Visit: Diagnoses Hyperlipidemia, unspecified (04/23/23) Transient cerebral ischemic attack, unspecified (04/23/23) Essential (primary) hypertension (04/23/23) Non-ST elevation (NSTEMI) myocardial infarction (04/23/23) Atherosclerotic heart disease of [place] coronary artery without angina pectoris (04/23/23) Chest [...] Clear Calc 89.08, Est GFR (MDRD) Af Ultp949, Est GFR (MDRD) Non-Af 83, BUN/Creatinine Ratio [...] Cosigner Signature (if applicable): CC: ~ Signed [facility] Work Phone: 1(319) 232-606209-15-2023 Evaluation note* Diagnosis Onset Date Resolution Status Admit Date Essential hypertension chronic Se pt2024 8:12am HLD (hyperlipidemia) chronic Apr 8:12am Presence of coronary angioplasty implant and graft April 25, 2023 chronic April 122024 8:12am [facility] Work Phone: 1(854) 827-958309-15-2023 Progress note Author Jose Lockwood [facility] April 25, 2023 7:23am Note Date/Time April 25, 2023 7:23am [facility] Medical Records Department [address] [place] [address] Progress Note - Cardiology 04/25/2320 MR#: [id number] Acct: [id number] Name: JOVANY MUÑIZ Rep #:[id number] : 1965 57 From: Jose Lockwood MD PCP: Dr. Sergei Henley MD Status: ADM IN Location: [place] [address] Subjective Subjective Patient seen and evaluated appears [...] hr 04/24/23 07:02: Troponin I High Sens 53720 H* 04/24/23 10:33: Activated Clotting Time 197 [...] Orientation: awake and alert Coordination / Balance: mxwftg-ve-hqso test normal and lajd-hy-zpiw test normal Speech: speech normal Psych affect [...] intensity statin. (2) Atherosclerotic heart disease of [place] coronary artery without angina pectoris: QUALIFIERS: [place] vs. transplanted heart: [place] heart QualifiedCode(s): I25.10 - Atherosclerotic heart disease of [place] coronary artery without angina pectoris PLAN: He [...] Cosigner Signature (if applicable): CC: ~ Signed [facility] Work Phone: 1(486) 194-104909-14-2023 Progress note Author Rommel Youssef [facility] April 24, 2023 2:53pm Note Date/Time April 24, 2023 8:27am [facility] Medical Records Department [address] [place] [address] Progress Note - Hospitalist 04/24/23 0820 MR#: [id number] Acct: [id number] Name: JOVANY MUÑIZ Rep #:[id number] : 1965 57 From: Rommel Youssef DO PCP: Dr. Sergei Henley MD Status: ADM IN Location: [place] [address] Subjective Subjective Feels well. Some mild chest [...] % (Auto) 48.0, Lymph % (Auto) 32.1, [place]% (Auto) 12.1 H, Eos % (Auto) 6.3 [...] % (Auto) 64.2, Lymph % (Auto) 20.9, [place]% (Auto) 9.2, Eos % (Auto) 4.3, Baso [...] 106, Calcium 9.2, Troponin I High Sens 94610 H*, Triglycerides 258 H, Cholesterol 210 H, LDL Cholesterol 87, VLDL Cholesterol 52 H, HDL Cholesterol 71 04/24/23 07:02: Troponin I High Sens 27093 H* Radiography Diagnostic Testing: Radiology Impression Brain [...] Reading Location ID and State: 994 / [employer] , Service support , Head/Neck CTA 04/23/23 21:34 IMPRESSION: Normal CTA Head with contrast. Moderate (60%) carotid stenosis bilaterally. Patent vertebral arteries bilaterally. Electronically Signed: Kris White MD at 22:05 EDT Reading Location ID and State: 994 / [employer] , Service support , ADDENDUM: 04/23/233 IMPRESSION: Normal CTA Head with contrast. Moderate (60%) carotid stenosis bilaterally. Patent vertebral arteries bilaterally. N.B. : The above Results were Read Back by Kris White MD to Perez Dave DO, and understanding confirmed on 04/23/2023 22:06:20 (ET). Electronically Signed: Kris White MD at 22:05 EDT Reading Location ID and State: 994 / [employer] , Service support , Chest X-Ray 04/23/23 22:14 IMPRESSION: Normal x-ray examination of the chest. Electronically Signed: Kris White MD at 22:32 EDT Reading Location ID and State: 994 / [employer] , Service support , Physical Exam [...] Orientation: awake and alert Coordination / Balance: tnnxoz-ju-obma test normal and dqzu-ro-jjei test normal Speech: speech normal Psych affect [...] is anticoagulated. Charges/Coding Visit Charges Inpatient E&M: 28663 Subs Hosp L2 04/24/23 8043 <Electronically signed by Rommel Youssef DO> Cosigner Signature (if applicable): CC: ~ Signed [facility] Work Phone: 1(979) 775-244309-14-2023 History and physical note Author Ar Torres [facility] April 24, 2023 10:35am Note Date/Time April 23, 2023 11:01pm [facility] Medical Records Department [address] [place] [address] H&P Exam - Hospitalist 04/23/23 2301 MR#: [id number] Acct: [id number] Name: JOVANY MUÑIZ Rep #:[id number] : 1965 57 From: Ar Torres MD PCP: Dr. Sergei Henley MD Status: ADM IN Location: [place] [id number] HPI - General General Date of [...] and patient was not acandidate of thrombolytics. [facility] Medical History Atherosclerotic heart disease of [place] coronary artery without angina pectoris Essential hypertension [...] % (Auto) 48.0, Lymph % (Auto) 32.1, [place]% (Auto) 12.1 H, Eos % (Auto) 6.3 [...] Reading Location ID and State: 994 / [employer] , Service support , ADDENDUM: 04/23/23 2213 IMPRESSION: Normal CTA Head with contrast. Moderate (60%) carotid stenosis bilaterally. Patent vertebral arteries bilaterally. N.B. : The above Results were Read Back by Kris White MD to Perez Dave DO, and understanding confirmed on 04/23/2023 22:06:20 (ET). Electronically Signed: Kris White MD at 22:05 EDT Reading Location ID and State: 994 / [employer] , Service support , Chest X-Ray 04/23/23 22:14 IMPRESSION: Normal x-ray examination of the chest. Electronically Signed: Kris Whtie MD at 22:32 EDT Reading Location ID and State: 994 / [employer] , Service support , Assessment & [...] EKG tracing did not show ST elevation OK. ASA 81 mg p.o. daily; and Plavix [...] documentation, 70minutes. Charges/Coding Visit Charges Inpatient E&M: 75864 Init Hosp L3 04/24/23 1035 <Electronically signed by Ar Torres MD> Cosigner Signature (if applicable): CC: Dr. Sergei Henley MD; Dr. Ar Torres MD~ Signed [facility] Work Phone: 1(106) 246-594009-14-2023 Consult note Author Jose Lockwood [facility] April 24, 2023 10:00am Note Date/Time April 24, 2023 7:34am [facility] Medical Records Department [address] [place] [address] Consultation - Cardiology 04/24/2326 MR#: [id number] Acct: [id number] Name: JOVANY MUÑIZ Rep #:[id number] : 1965 57 From: Jose Lockwood MD PCP: Dr. Sergei Henley MD Status: ADM IN Location: [place] [address] Assessment & Plan Assessment/Plan (1) NSTEMI (non-ST [...] intensity statin. (2) Atherosclerotic heart disease of [place] coronary artery without angina pectoris: QUALIFIERS: [place] vs. transplanted heart: [place] heart QualifiedCode(s): I25.10 - Atherosclerotic heart disease of [place] coronary artery without angina pectoris PLAN: He [...] was called for further evaluation and management. [facility] Medical History (Updated 04/24/23 @ 07:[address] Jose Lockwood MD) Atherosclerotic heart disease of [place] coronary artery without angina pectoris Essential hypertension [...] % (Auto) 48.0, Lymph % (Auto) 32.1, [place]% (Auto) 12.1 H, Eos % (Auto) 6.3 [...] % (Auto) 64.2, Lymph % (Auto) 20.9, [place]% (Auto) 9.2, Eos % (Auto) 4.3, Baso [...] 106, Calcium 9.2, Troponin I High Sens 09755 H*, Triglycerides 258 H, Cholesterol 210 H, LDL Cholesterol 87, VLDL Cholesterol 52 H, HDL Cholesterol 71 Cardiology Labs/Tests 04/23/23 21:30: WBC 5.3, RBC 4.28 L, Hgb 14.0, Hct 42.3, MCV 98.8 H, MCH 32.7 H,MCHC 33.1, Plt Count 226, MPV 9.5, Immature Gran % (Auto) 0.400, Neut % (Auto) 48.0, Lymph % (Auto) 32.1, [place] % (Auto) 12.1 H, Eos % (Auto) [...] % (Auto) 64.2, Lymph % (Auto) 20.9, [place] % (Auto) 9.2, Eos % (Auto) 4.3, [...] Reading Location ID and State: 994 / [employer] , Service support , ADDENDUM: 04/23/232201 IMPRESSION: Negative Brain CT without contrast. N.B. : The above Results were Read Back by Kris White MD to Perez Dave DO, and understanding confirmed on 04/23/2023 21:55:56 (ET). Electronically Signed: Kris White MD at 21:54 EDT Reading Location ID and State: 994 / [employer] , Service support , Head/Neck CTA 04/23/23 21:34 IMPRESSION: Normal CTA Head with contrast. Moderate (60%) carotid stenosis bilaterally. Patent vertebral arteries bilaterally. Electronically Signed: Krsi White MD at 22:05 EDT Reading Location ID and State: 994 / [employer] , Service support , ADDENDUM: 04/23/23 [...] Lockwood MD; Dr. Ar Torres MD~ Signed [facility] Work Phone: 1([phone]) 891-116009-14-2023 Discharge summary Author [facility] April 24, 2023 12:00am Note Date/Time April 23, 2023 9:39pm [facility] Medical Records Department [address] [place] [address] Emergency Department Summary 04/23/23 MR#: [id number] Acct: [id number] Name: JOVANY MUÑIZ Rep #:[id number] : 1965 57 From: Perez Dave DO PCP: Dr. Sergei Henley MD Status: ADM IN Location: [place] [address] HPI History of Present Illness Chief Complaint: [...] in his chest. Slight shortness of breath. [facility] Medical History Atherosclerotic heart disease of [place] coronary artery without angina pectoris Essential hypertension [...] I did evaluate the transmitted EKG from [facility] which showed bradycardia without signs of ST elevation OK. Will obtain EKG uponarrival back to the room as well as basic labs and troponin. Patient will be evaluated by stroke neurologist via robot from [facility]. Patient was evaluated by [facility] neurology. When he arrived back from [...] of [address] elevation [place] noted although the computerthought there was ST elevation OK. CT scan of the brain without contrast [...] % (Auto) 48.0 Lymph % (Auto) 32.1 [place] % (Auto) 12.1 H Eos % (Auto) [...] rate of [address] elevation OK noted. Hehad some nonspecific ST changes. Prior EKG tracings: available for review Prior: Unchanged Discharge Plan Dx/Rx/DC Orders Clinical Impression: Brain TIA, History of coronary artery disease, Chest pain Disposition Disposition: Acute Care Hospital [facility] Discharge Date/Time: 04/23/23 23:43 What to do if you have Problems For any increased pain, shortness of breath, bleeding, nausea or vomiting, chestpain, or any unexpected problems, contact your Primary Care Provider. Call [facility] ([phone]) or report to the closest Emergency Room. Call 911 if necessary. 04/24/23 0000 <Electronically signed by Perez Dave DO> Cosigner Signature (if applicable): CC: Dr. Sergei Henley MD ~ Signed [facility] Work Phone: 1(729) 185-140711-01-2010 Evaluation note* Diagnosis Onset Date Resolution Status Atherosclerotic heart diseas e of [place] coronary artery without angina pectoris chronic Essential hypertension chron ic HLD (hyperlipidemia) chronic Presence of stent in coronary artery June, chronic [facility] Work Phone: 1(368) 385-975811-01-2010 Evaluation note* Diagnosis Onset Date Resolution Status Atherosclerotic heart diseas e of [place] coronary artery without angina pectoris chronic Essential hypertension chron ic HLD (hyperlipidemia) chronic Presence of stent in coronary artery June, chronic Chest pain, atypical acute [facility] Work Phone: Discharge summary Author Rommle Youssef [facility] June 15, 2023 10:31am Note Date/Time June 15, 2023 1 0:26am [facility] Medical Records Department [address] [place] [address] Discharge Summary 06/15/23 [facility] MR#: [id number] Acct: [id number] Name: JOVANY MUÑIZ Rep #:[id number] : 1965 57 From: Rommel Youssef DO PCP: Dr. Sergei Henley MD Status: ADM FELIC[place] Location: [address] Providers Date of Admission: 06/14/23 Primary [...] Dose Aspirin) 81 mg PO QDAY heart [facility] 08/06/17 buspirone 5 mg tablet 5 [...] subcutaneous pen injector (Repatha SureClick) 140 mg [id number] #2 mL 06/13/23 nitroglycerin 0.4 mg sublingual [...] 83.8 H, Lymph % (Auto) 10.2 L, [place] % (Auto) 2.7, Eos % (Auto) 2.5, [...] Clarity Clear, Urine pH 7.0, Ur Specific [place] 1.010, Urine Protein Negative, Urine Glucose (UA) [...] (Auto) 81.6 H, Lymph % (Auto)10.5 L, [place] % (Auto) 4.6, Eos % (Auto) 2.6, [...] Discharge Diet: Low fat / Low cholesterol ([place] diet, advance as tolerated.) Meaningful Use Info [...] months would recommend following up with a local [place] truck driver. Discharge Orders/Prescriptions Prescriptions: New amoxicillin-pot clavulanate 875-125 [...] Qty: 25 3RF Referrals / Follow Up: [facility] [Provider Group] - Within 3 Months Sergei Henley MD [Primary Care Provider] - Within 2 Weeks Disposition Disposition (needs filled in before D/C Order can be placed): Home, Self Care Charges/Coding Visit Charges Inpatient E&M: 89616 Disch Hosp >30min 06/15/23 1031 <Electronically signed by Rommel Youssef DO> Cosigner Signature (if applicable): CC: Dr. Sergei Henley MD; Dr. Rommel Youssef, DO~ Signed [facility] Work Phone: Evaluation noteNo assessment information available [facility] Work Phone: Evaluation note* Diagnosis Onset Date Resolution Status Brain TIA acute Chest pain acute History of coronary artery disease acute [facility] Work Phone: Evaluation note* Diagnosis Onset Date Resolution Status Brain TIA acute Chest pain acute History of coronary artery disease acute NSTEMI (non-ST elevated myocardial infarction) acute Atherosclerotic heart diseas e of [place] coronary artery without angina pectoris chronic Essential hypertension chron ic HLD (hyperlipidemia) [facility] Work Phone: Evaluation note* Diagnosis Onset Date Resolution Status Essential hypertension chron ic HLD (hyperlipidemia) chronic Brain TIA resolved Chest pain resolved NSTEMI (non-ST elevated myoc ardial infarction) resolved Essential hypertension chron ic HLD (hyperlipidemia) chronic Presence of stent in coronary artery April 25, 023 chronic [facility] Work Phone: Evaluation note* Diagnosis Onset [...] in coronary artery April 25, 023 chronic [facility] Work Phone: Evaluation note* Diagnosis Onset Date Resolution Status HLD (hyperlipidemia) chronic Brain TIA resolved Chest pain resolved NSTEMI (non-ST elevated myocardial infarction) resolved HLD (hyperlipidemia) chronic Sigmoid diverticulitis acute Intractable abdominal pain r esolved [facility] Work Phone: Evaluation note* Diagnosis Onset Date Resolution Status Essential hypertension chron ic HLD (hyperlipidemia) chronic Sigmoid diverticulitis acute Essential hypertension chron ic Intractable abdominal pain r esolved GERD (gastroesophageal reflux disease) acute Sigmoid diverticulitis acute Myalgia acute Palpitation acute HLD (hyperlipidemia) chronic Presence of coronary angiopl asty implant and graft April 25, 2023 [facility] Work Phone: Evaluation note* Diagnosis Onset Date Resolution Status Sigmoid diverticulitis acute Essential hypertension chron ic Intractable abdominal pain r esolved GERD (gastroesophageal reflux disease) acute Sigmoid diverticulitis acute Myalgia acute Palpitation acute HLD (hyperlipidemia) chronic Presence of coronary angiopl asty implant and graft April 25, 2023 chronic [facility] Work Phone: History and physical note Author Meliza Ramírez [facility] June 14, 2023 7:41pm Note Date/Time June 14, 2023 7 :41pm [facility] Medical Records Department [address] [place] [address] H&P Exam - Hospitalist 06/14/231930 MR#: [id number] Acct: [id number] Name: JOVANY MUÑIZ Rep #:[id number] : 1965 57 From: Meliza Ramírez MD PCP: Dr. Sergei Henley MD Status: REG ER Location: ED HPI - General General Date of Admission: 06/14/23 Date of Service: 06/14/23 Chief Complaint: Abdominal pain HPI Narrative JOVANY MUÑIZ, is a 57-year-old male history of hypertension, coronary artery disease with stent placement 2 months ago who presented to [facility] 06/14/2023 with abdominal pain x1 day. [...] denied any withdrawal symptoms at that time. [facility] Medical History Atherosclerotic heart disease of [place] coronary artery without angina pectoris (04/25/23) Essential hypertension History of coronary artery disease HLD (hyperlipidemia) Old myocardial infarction Presence of stent in coronary artery (04/25/23) Home Medications aspirin 81 mg tablet,delayed release (Adult Low Dose Aspirin) [address] [facility] 08/06/17 [History Last Taken 10/30/21] buspirone 5 [...] subcutaneous pen injector (Repatha SureClick) 140 mg arkeluZ2F #2 mL 06/13/23 [Rx Last Taken Unknown] [...] 83.8 H, Lymph % (Auto) 10.2 L, [place] % (Auto) 2.7, Eos % (Auto) 2.5, [...] Clarity Clear, Urine pH 7.0, Ur Specific [place] 1.010, Urine Protein Negative, Urine Glucose (UA) [...] documentation, 56minutes Charges/Coding Visit Charges Inpatient E&M: 25413 Init Hosp L2 06/14/231940 <Electronically signed by Meliza Ramírez MD> Cosigner Signature (if applicable): CC: Dr. Sergei Henley MD; Dr. Meliza Ramírez MD~ Signed [facility] Work Phone: History and physical note Author Olegario Segal [facility] October 02, 2023 7:28am Note Date/Time October 02, 2023 7:28am [facility] Medical Records Department [address] [place] [address] History & Physical Exam 10/02/23 0725 MR#: [id number] Acct: [id number] Name: JOVANY MUÑIZ Rep #:[id number] : 1965 58 From: Olegario Blackburn PCP: Dr. Sergei Henley MD [facility] Location: [place] [address] History and Physical Date of Admission: 10/02/23 Date of Service: 07/17/23 MR#: [id number] Acct: [id number] Name: JOVANY MUÑIZ Rep #: [id number] : 1965 Provider: Dr. Olegario Segal MD Age/Sex: 57/M Location: [facility] Status: Signed Intake Vital Signs 06/14/2321:15 07/17/2308:17 Height 6 ft 6 ft Weight: 213 lb 2 oz BMI 28.9 BP 125/88 H Blood Pressure Location Rt brachial Position Sitting Respiration 18 Pulse 78 Pulse Source Monitor Temp 97.2 F L Temp Source Temporal Pulse Oximetry (%) 98 Oxygen Delivery Method room air Intake Visit Reasons: DIVERTICULITIS Chief Complaint: Diverticulitis Business Segment Manager Required: No Is patient in pain?: No Allergies No Known Allergies Allergy (Verified 07/17/23 08:20) Medications aspirin 81 mg tablet,delayed release (Adult Low Dose Aspirin) [address] [facility] 08/06/17 [History Confirmed 07/17/23] coenzyme Q10 100 [...] subcutaneous pen injector (Repatha SureClick) 140 mg erlcdfN7A #2 mL 06/13/23 [Rx Confirmed 07/17/23] nitroglycerin [...] Olegario Segal MD) Atherosclerotic heart disease of [place] coronary artery without angina pectoris (04/25/23) Essential [...] that he will need to have a cdl flatbed truck driver with him the day of the [...] Henley MD; Dr. Olegario Segal MD~ Signed [facility] Work Phone: Hospital Discharge instructions Additional Instructions All your labs, EKG, chest x-ray were unremarkable. Follow-up with your doctor. Return if you are feeling worse. Nothing bad we can find today.[facility] Work Phone: Hospital Discharge instructions Additional Instructions Benadryl as needed for itching. Avoid shrimp or shellfish seems that you have an allergy to it. Follow-up with your doctor as needed.[facility] Work Phone: Progress note Author Mitchell Dubois [facility] Note Date/Time May 05, 2025 9:39am [facility] [address] [place] [address] OFFICE VISIT Date of Service: 05/05/25 MR#: [id number] Acct: [id number] Name: JOVANY MUÑIZ Rep #: [id number] : 1965 Provider: EUGENIA Dubois Age/Sex: 59/M Location: [facility] Status: Signed HPI HPI History of Present Illness Details: This is a 59-year-old white male who presents today for outpatient cardiovascular follow-up regarding a history of underlying CAD, PCI, hyperlipidemia, and hypertension. He was noted to have inferior myocardial infarction with stenting to his obtuse marginal, proximal to mid circumflex, proximal to mid LAD in 2009. He presented [facility] on 04/23/2023 for assurance regarding stroke [...] air Intake Visit Reasons: 9 M FU Business Segment Manager Required: No Accompanied by: Is patient in [...] Old myocardial infarction Atherosclerotic heart disease of [place] coronary artery without angina pectoris (04/25/23) Surgical [...] updated, as necessary. 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) Coding Level of Care Code Off vis,est,level [...] Cosigner Signature: Date (if applicable) CC: ~ [facility] Work Phone: Reason for referral (narrative)No reason for referral information availableWTriHealth Work Phone: Chief Complaint and Reason for Visit Chief Complaint 1 y fu CHEST PAIN Reason for Visit Atherosclerotic hear t disease of [place] coronary artery without angina pectoris Essential hypertension HLD (hyperlipidemia) Presence of stent in coronary artery Chief Complaint 1 y fu CHEST PAIN CHEST PAIN CHEST PAIN Reason for Visit Atherosclerotic hear t disease of [place] coronary artery without angina pectoris Essential hypertension [...] elevated myocardial infarction) Atherosclerotic heart disease of [place] coronary artery without angina pectoris Essential hypertension HLD (hyperlipidemia) Chief Complaint CHEST PAIN, TIA CHEST PAIN, TIA CHEST PAIN, TIA CHEST PAIN, TIA CHEST PAIN, TIA S/P [facility] 15 Reason for Visit Essential hypertensi on HLD (hyperlipidemia) Brain TIA Chest pain NSTEMI (non-ST elevated myocardial infarction) Essential hypertension HLD (hyperlipidemia) Presence of stent in coronary artery Chief Complaint CHEST PAIN, TIA CHEST PAIN, TIA CHEST PAIN, TIA CHEST PAIN, TIA CHEST PAIN, TIA S/P [facility] 15 DIVERTICULITIS Reason for Visit Essential hypertensi on HLD (hyperlipidemia) Brain TIA Chest pain NSTEMI (non-ST elevated myocardial infarction) Essential hypertension HLD (hyperlipidemia) Presence of stent in coronary artery Intractable abdominal pain Sigmoid diverticulitis Essential hypertension Presence of stent in coronary artery Chief Complaint CHEST PAIN, TIA CHEST PAIN, TIA CHEST PAIN, TIA CHEST PAIN, TIA CHEST PAIN, TIA S/P [facility] 15 DIVERTICULITIS DIVERTICULITIS Reason for Visit Essential hypertensi on HLD (hyperlipidemia) Brain TIA Chest pain NSTEMI (non-ST elevated myocardial infarction) Essential hypertension HLD (hyperlipidemia) Presence of stent in coronary artery Intractable abdominal pain Sigmoid diverticulitis Essential hypertension Presence of stent in coronary artery Chief Complaint CHEST PAIN, TIA CHEST PAIN, TIA CHEST PAIN, TIA CHEST PAIN, TIA CHEST PAIN, TIA S/P [facility] 15 DIVERTICULITIS DIVERTICULITIS EORDER Reason for Visit HLD (hyperlipidemia) Brain TIA Chest pain NSTEMI (non-ST elevated myocardial infarction) HLD (hyperlipidemia) Sigmoid diverticulitis Intractable abdominal pain Chief Complaint S/P [facility] 0915 DIVERTICULITIS DIVERTICULITIS EORDER DIVERTICULITIS 3 M [...] No October 30, 2021 7:09pm Power of Pier Hand No October 30 7:09pm Advance Directive Response Recorded Date/ Time Living Will Yes April 23, 2023 9:57pm Power of [place] Hand Yes April 9:57pm Name of Medical Power of Pier Hand Jesus Muñiz April 23, 2023 9:57pm Advance Directive Response Recorded Date/ Time Name of Medical Power of [place] Hand Ellie Muñiz April 24, 2023 12:15am Living Will Yes April 24, 2023 12:15am Power of [place] Hand Yes April 12:15am Advance Directive Response Recorded Date/ Time Living Will No June 14 5:16pm Power of [place] Hand No June 14, 2023 5:16pm Name of Medical Power of [place] Hand Ellie Muñiz April 24, 2023 12:15am Advance Directive Response Recorded Date/ Time Name of Medical Power of [place] Hand Ellie Muñiz June 14, 2023 8:15pm Living Will Yes June 14 8:15pm Power of [place] Hand Yes June 14, 2023 8:15pm Name of Medical Power of [place] Hand Ellie Muñiz April 23, 2023 11:15pm Advance Directive Response Recorded Date/ Time Name of Medical Power of [place] Hand Ellie Muñiz June 14, 2023 8:15pm Living Will Yes June 14 8:15pm Power of [place] Hand Yes June 14, 2023 8:15pm Advance Directive Response Recorded Date/ Time Name of Medical Power of Pier Hand Ellie Muñiz June 14, 2023 8:15pm Name of Medical Power of Pier Hand September 25, 2023 3:03pm Living Will Yes September 25, 024 3:03pm Power of [place] Hand Yes September 25, 2023 3:03pm Advance Directive Response Recorded Date/ Time Living Will Yes April 24, 2023 12:15am Do you have a Healthcare Pow er of [place] Hand? Yes April 24, 2023 12:15am Living Will Yes September 03 1:26am Do you have a Healthcare Pow er of [place] Hand? Yes September 03, 2024 1:26am Name of Medical Power of Pier Hand ELLIE MUÑIZ September 03, 2024 1:26am Advance Directive Response Recorded Date/ Time Do you have a Healthcare Power of [place] Hand? Yes January 22, 2025 2:10pm Name of Medical Power of [place] Hand Ellie Muñiz January 22, 2025 2:10pm Advance Directive Response Recorded Date/ Time Do you have a Healthcare Power of [place] Hand? Yes January 22, 2025 9:41pm Do you have a Healthcare Power of [place] Hand? Yes January 22, 2025 2:10pm Name of Medical Power of [place] Hand Ellie Muñiz January 22, 2025 2:10pm Summary [...] Provider, Refe rring Provider Active Mitchell Dubois [employer]INATING MACHINE [employer]EDER, M[employer]ATING MACHINE FEEDER-C Attending Provider Active Team Status: Inactive Member [...] Primary Care Provider Activ e Mitchell Dubois [employer]ATING MACHINE [employer]ED[employer], [employer]ATING MACHINE [employer]EDER-C Attending Provider, Referring Pro vider Active Team [...] 28, 2024 End: September 28, 2024 Dr. dEuard Henley MD Attending Provider Active Start: September 28, 2024 End: September 28, 2024 Dr. Eduard Henley MD Referring Provider Active Start: September 28, 2024 End: September 28, 2024 Team Status: Inactive Member Role Status Dates Dr. Eduard Henley MD Primary Care Provider Acti ve Start: November 03, 2024 End: November 03, 2024 Mitchell Dubois [employer]ATING MACHINE [employer]EDER, M[employer] L[employer]INATING MACHINE FEEDER-C Attending Provider Active S tart: November 03, 2024 End: November 03, 2024 Mitchell Dubois M[employer] L[employer]INATING MACHINE FEEDER, M[employer] L[employer]INATING MACHINE FEEDER-C Referring Provider Active S tart: November 03, 2024 End: November 03, 2024 Team Status: Active Member Role Status Dates Dr. 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 [facility] [employer], [facility]. provides no warranty or guarantee of the accuracy or completeness of information in this document.
--- NOTE | 2025-06-09 23:58 | ECHOD_ITS ---
Reason For Study Reason For Study: Syncope/Near Syncope Procedure This was a 2D Doppler, Color Flow transthoracic echocardiogram. Exam performed portable in patient room. Left Ventricle Normal LV size. The left ventricular ejection fraction is 65 %. Stage 1 diastolic dysfunction. No regional wall motion abnormalities noted. Right Ventricle Normal RV size. Normal systolic function. Atria Normal left atrium. Normal right atrium. Mitral Valve Normal mitral valve. Tricuspid Valve Normal tricuspid valve. Mild (1+) tricuspid valve insufficiency. Pulmonary artery systolic pressure is 27 mmHg. Aortic Valve Normal aortic valve. Pulmonic Valve Normal pulmonic valve. Great Vessels Normal aortic root. The pulmonary artery is normal size. Inferior vena cava collapse with respiration. Pericardium/Pleural No pericardial effusion. MMode/2D Measurements & Calculations LVIDd: 5.1 cm IVSd: 0.99 cm Ao root diam: 3.0 cm LVIDs: 3.2 cm LVPWd: 1.0 cm RVDd: 2.9 cm FS: 37.1 % LAV(MOD-bp): 32.3 ml LVAd ap4: 28.7 cm2 SV(MOD-sp4): 55.4 ml LAV(MOD-bp) Indexed: 15.4 ml/m2 LVLd ap4: 7.7 cm SI(MOD-sp4): 26.3 ml/m2 LAV(MOD-sp2): 28.4 ml EDV(MOD-sp4): 88.0 ml LAV(MOD-sp4): 29.4 ml EDV(sp4-el): 90.5 ml LVAs ap4: 15.4 cm2 LVLs ap4: 6.2 cm ESV(MOD-sp4): 32.6 ml ESV(sp4-el): 32.3 ml EF(MOD-sp4): 62.9 % EF(sp4-el): 64.3 % SV(sp4-el): 58.2 ml LA A4 area: 13.3 cm2 LA dimension(2D): 3.7 cm RA A4 area: 15.6 cm2 TAPSE: 2.5 cm Time Measurements MV dec time: 0.20 sec Doppler Measurements & Calculations MV E max raj: 46.5 cm/sec Lat Peak E' Raj: 13.0 cm/sec Med Peak E' Raj: 7.1 cm/sec MV A max raj: 70.7 cm/sec E/E' lat: 3.6 E/E' med: 6.6 MV E/A: 0.66 Ao V2 max: 116.8 cm/sec LV V1 max: 100.9 cm/sec MV dec slope: 227.9 cm/sec2 Ao max P.5 mmHg LV V1 max P.1 mmHg Ao V2 mean: 94.5 cm/sec LV V1 mean P.3 mmHg Ao mean P.7 mmHg LV V1 mean: 70.9 cm/sec Ao V2 VTI: 24.0 cm LV V1 VTI: 19.7 cm AV (velocity ratio): 0.82 PA V2 max: 115.4 cm/sec TR max raj: 243.3 cm/sec TR max P.7 mmHg ECHO/Echo Complete Interpretation Summary The left ventricular ejection fraction is 65 %. Stage 1 diastolic dysfunction. Normal LV size. Structurally normal valves. Ordering Physician: Riddhi Azul Referring Physician: Eduard Henley Performed By: Kavitha Dubois RDCS, RVT
[2025-06-10 00:11] VITALS: BP 107/72; BP 120/79; BP 140/85; PULSE 90; PULSE 98
--- OUTSIDE RECORDS SUMMARY | 2025-06-10 00:12 | XMS RPT_ITS | CCD ---
Author Organization [facility] Care Team Providers Care Half Section Ironer Name Role Phone DeFinis, Harumi Y Unavailable [...] Provider Dr. Sergei Henley Referring Provider Roof TOUR SALES REPRESENTATIVE, TOUR SALES REPRESENTATIVE-C Mitchell Harvey Attending Provider Dr. Sergei Henley Primary Care Provider Dr. Perez Dave Emergency Provider Dr. Ar Torres Admit Provider Dr. Ar Torres Attending Provider Dr. Ar Torres Other Provider Dr. Jose Lockwood Other Provider Dr. Rommel Youssef Other Provider Dr. Rommel Youssef Attending Provider Dr. Jose Lockwood Attending Provider [phone] Sergei Henley Referring Provider Sherly TOUR SALES REPRESENTATIVE, TOUR SALES REPRESENTATIVE-C Mitchell Harvey Attending Provider MD Donta Swenson Emergency Provider Dr. Meliza Ramírez Admit Provider Dr. Meliza Ramírez Other Provider Dr. Sergei Henley Primary Care Provider Dr. Rommel Youssef Attending Provider Dr. Rommel Youssef Other Provider Dr. Olegario Segal Attending Provider Dr. Sergei Henley Primary Care Provider Dr. Sergei Henley Referring Provider Sherly TOUR SALES REPRESENTATIVE, TOUR SALES REPRESENTATIVE-Cliff Harvey Attending Provider Dr. Olegario Segal Referring Provider Dr. Olegario Segal Other Provider Dr. Eduard Henley MD Primary Care Provider Dr. Eduard Henley MD Referring Provider Dr. Jose Lockwood MD Attending Provider Nick ABARCA, Dr. Lee Attending Provider Nick ABARCA, Dr. Lee Emergency Provider [phone] Flor SY, Dr. Arellano Attending Provider Flor SY, Dr. Arellano Referring Provider Kale SY, Dr. Chapa Attending Provider Roof TOUR SALES REPRESENTATIVE-C, Mitchell H Attending Provider Roof TOUR SALES REPRESENTATIVE-C, Mitchell H Referring Provider Roof TOUR SALES REPRESENTATIVE-C, Mitchell H Other Provider Kale SY, Dr. Chapa Primary Care Provider Kale SY, Dr. Chapa Referring Provider Mandie SY, Dr. Garcia Attending Provider [phone] Rico Attending Provider Ruslan SY, Dr. Jones Emergency Provider Kale SY, Dr. Chapa Primary Care Provider Kale SY, Dr. Chapa Referring Provider Ruslan SY, Dr. Jones Attending Provider Kale SY, Dr. Chapa Attending Provider Roof TOUR SALES REPRESENTATIVE, Mitchell H Attending Unavailable Kale, Eduard Referring [...] Unavailable Ranney, Christopher Primary Care Unavailable Roof TOUR SALES REPRESENTATIVE, Mitchell Harevy Attending Unavailable Sherly TOUR SALES REPRESENTATIVE, Mitchell H Referring Unavailable Eduard Henley Primary Care Unavailable Jose Lockwood Attending Unavailable Sherly TOUR SALES REPRESENTATIVE, Mitchell Harvey Consulting Unavailable Sherly TOUR SALES REPRESENTATIVE, Mitchell Harvey Referring Unavailable Eduard Henley Primary Care Unavailable Eduard Henley Primary Care Unavailable Eileen Ray Attending Unavailabl e Flor, Nunoapradee Referring Unavailabl e Eduard Henley Primary Care Unavailable Akua Vang Attending Unavailable Eduard Henley Referring Unavailable dEuard Henley Primary Care Unavailable Jose Lockwood Attending Unavailable Eduard Henley Referring Unavailable Kale SY, Dr. Chapa Primary Care Physicia n Ruslan SY, Dr. Jones Attending Physician [phone] Ruslan SY, Dr. Jones Emergency Department Physici an Kale SY, Dr. Chapa Attending Physician Kale SY, Dr. Chapa Referring Provider [phone] Sherly TOUR SALES REPRESENTATIVE-CMitchell Attending Physician Allergies Allergy Classification Reported Allergen(s) Allergy Type Date of Onset Reaction(s) Facility (3 sources) shrimp allergenic extract Drug Allergy 01-22-2025 Anaphylaxis [facility] (1 source) Scallop - dietary Drug allergy (disorder) 05-05-2025 [facility] Repository (1 source) Shrimp product Drug allergy (disorder) 05-05-2025 [facility] Repository (1 source) scallop allergenic extract Drug Allergy 05-05-2025 Anaphylaxis [facility] Medications Current Medications Medication Drug Class(es) [...] mg PO daily August 06, 2017 1:00am [facility] Complies with drug therapy Start: 11-27-2011 take 1 tablet by kolton th once daily ASPIRIN 81 MG TABS One tablet by mouth daily ASPIRIN [id number] Elizabet Sridevi Avila Start: 11-27-2011 take 1 tablet by kolton th once daily ASPIRIN 81 MG TABS One tablet by mouth daily ASPIRIN 40155789066 Elizabet Avila Start: 11-27-2011 take 1 tablet by kolton th once daily ASPIRIN EC 81 MG TBEC One tablet by mouth daily ASPIRIN 15900844374 Bhavani Ralph PA-C cetirizine hydrochloride 10 mg [...] One tablet by mouth daily CLOPIDOGREL BISULFATE 32199180839 Elizabet Avila 1 ml evolocumab 140 mg/ml [...] 5 min up to 3 X NITROGLYCERIN [id number] Brain Whyte MD Start: 11-27-2011 NITROGLYCERIN 0.4 MG/HR PT24 1 tablet under tongue every 5 min up to 3 X NITROGLYCERIN 52550643124 Elizabet Avila pantoprazole 40 mg delayed release [...] One tablet by mouth twice daily AMOXICILLIN 71637800322 Latisha Zayas PA-C amoxicillin 875 mg / [...] mouth three times daily as needed CLONAZEPAM 01078667773 Elizabet Avila Cobalamin Combinations capsule (4 sources) [...] Start: 06-14-2023 take 1 capsule by mo [facility] once daily Cobalamine Combinations Active CAP PO DAILY June 13, 2023 11:00pm Start: 06-14-2023 take 1 capsule by mo [facility] once daily Cobalamine Combinations Active CAP PO [...] TABS One tablet by mouth daily EZETIMIBE 46081221254 Brain Whyte MD famotidine 20 mg oral tablet (5 sources) Histamine-2 Receptor Antagonist Start: 10-25-2013 take 1 tablet by mouth once daily FAMOTIDINE 20 MG TABS One tablet by mouth daily FAMOTIDINE 71852734356 Brain Whyte MD fish oil (10 sources) Start: 06-01-2012 End: 01-11-2013 take 1 tablet by mouth once daily FISH OIL CAPS One tablet by mouth daily OMEGA-3 FATTY ACIDS CAPS 76219122695 Bhavani Ralph PA-C Start: 06-01-2012 take 1 tablet by kolton th once daily FISH OIL CAPS One tablet by mouth daily OMEGA-3 FATTY ACIDS CAPS 47510340388 Brain Whyte MD Start: 06-01-2012 End: 01-11-2013 take 1 tablet by mouth once daily FISH OIL CAPS One tablet by mouth daily OMEGA-3 FATTY ACIDS CAPS 15987438225 Bhavani Ralph PA-C Start: 06-01-2012 take 1 tablet by kolton th once daily FISH OIL CAPS One tablet by mouth daily OMEGA-3 FATTY ACIDS CAPS 90137036459 Brain Whyte MD lisinopril 10 mg oral [...] TABS One tablet by mouth daily LISINOPRIL 46101407539 Brain Whyte MD Start: 11-28-2011 End: 01-11-2013 take 1 tablet by mouth once daily LISINOPRIL 10 MG TABS One tablet by mouth daily LISINOPRIL 07699542129 Bhavani Ralph PA-C Start: 11-27-2011 take 1 tablet by kolton th once daily LISINOPRIL 2.5 MG TABS One tablet by mouth daily LISINOPRIL 08316282161 Elizabet Avila loratadine 10 mg oral tablet [...] tablet by mouth daily as needed LORATADINE 37471519645 Brain Whyte MD Start: 11-27-2011 take 1 tablet by kolton th once daily as needed CLARITIN 10 MG CAPS One tablet by mouth daily as needed LORATADINE 35161741095 Brain Whyte MD oxyCODONE hydrochloride 5 mg [...] tablet by mouth at bedtime. PRAVASTATIN SODIUM 57432425596 Brain Whyte MD raNITIdine 150 mg oral tablet (5 sources) Histamine-2 Receptor Antagonist Start: 06-01-2012 take 1 tablet by mouth twice daily RANITIDINE HCL 150 MG TABS One tablet by mouth twice daily RANITIDINE HCL 57513784810 Brain Whyte MD rosuvastatin calcium 5 mg [...] One tablet by mouth at bedtime. SIMVASTATIN 07856668055 Elizabetipli Avila tadalafil 5 mg oral tablet (20 sources) Phosphodiesterase 5 Inhibitor Start: 08-06-2017 End: 01-26-2018 Tadalafil 5 mg tablet Discontinued 5 mg PO NEEDED as needed for erectile 30 30 0 August 06, 2017 1:00am January 26, 2018 8:38am Start: 06-01-2012 CIALIS 5 MG TA BS as directed TADALAFIL 42562120787 Brain Whyte MD ticagrelor 90 mg oral [...] Coronary atherosclerosis; Translations: [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] Onset: 11-27-2011 [...] (current) use of other medications; Translations: [Other shelter (current) drug therapy] Onset: 06-10-2012 Resolved: 05-03-2015 [...] Facility Cardiology Visit Reporton Cardiology Visit Report [facility] [address] [place] [address] OFFICE VISIT Date of Service: 05/05/25 MR#: [id number] Acct: [id number] Name: JOVANY MUÑIZ Rep #: [id number] : 1965 Provider: EUGENIA south Age/Sex: 59/M Location: [facility] Status: Signed HPI HPI History of Present Illness Details: This is a 59-year-old white male who presents today for outpatient cardiovascular follow-up regarding a history of underlying CAD, PCI, hyperlipidemia, and hypertension. He was noted to have inferior myocardial infarction with stenting to his obtuse marginal, proximal to mid circumflex, proximal to mid LAD in 2009. 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 Normal [facility] L5500.0550on 02-01-2025 BEEF <0.10 Normal Class 0 [facility] Comment on above: Performed By: #### L 500.2500, L501.4021, L100.0100 #### [facility] [address] [place], [address] CHOCOLATE <0.10 Normal Class 0 [facility] Comment on above: Performed By: #### L 500.2500, L501.4021, L100.0100 #### [facility] [address] [place], [address] CODFISH <0.10 Normal Class 0 [facility] Comment on above: Performed By: #### L 500.2500, L501.4021, L100.0100 #### [facility] [address] [place], [address] COMMENT Comment Normal . [facility] Comment on above: Result Comment: Master bennett of Specific IgE Class Description of Class ----- < 0.10 0 Negative 0.10 - 0.31 0/I Equivocal/Low 0.32 - 0.55 I Low 0.56 - 1.40 II Moderate 1.41 - 3.90 III High 3.91 - 19.00 IV Very High 19.01 - 100.00 V Very High >100.00 Very High Performed By: #### L 500.2500, L501.4021, L100.0100 #### [facility] [address] [place], [address] CORN <0.10 Normal Class 0 [facility] Comment on above: Performed By: #### L 500.2500, L501.4021, L100.0100 #### [facility] [address] [place], [address] EGG, WHOLE <0.10 Normal Class 0 [facility] Comment on above: Result Comment: Perf ormed at: [facility] [address] [id number] Ordnance Handler: Brandie Dial MD, Phone: [phone] Performed By: #### L 500.2500, L501.4021, L100.0100 #### [facility] [address] [place], [address] MILK (COW) <0.10 Normal Class 0 [facility] Comment on above: Performed By: #### L 500.2500, L501.4021, L100.0100 #### [facility] [address] [place], [address] MUSSELS <0.10 Normal Class 0 [facility] Comment on above: Performed By: #### L 500.2500, L501.4021, L100.0100 #### [facility] [address] [place], [address] PEANUT <0.10 Normal Class 0 [facility] Comment on above: Performed By: #### L 500.2500, L501.4021, L100.0100 #### [facility] [address] [place], [address] PORK <0.10 Normal Class 0 [facility] Comment on above: Performed By: #### L 500.2500, L501.4021, L100.0100 #### [facility] [address] [place], [address] SALMON <0.10 Normal Class 0 [facility] Comment on above: Performed By: #### L 500.2500, L501.4021, L100.0100 #### [facility] [address] [place], [address] SHRIMP 0.50 kU/L Abnormal Class I [facility] Comment on above: Performed By: #### L 500.2500, L501.4021, L100.0100 #### [facility] [address] [place], [address] SOYBEAN <0.10 Normal Class 0 [facility] Comment on above: Performed By: #### L 500.2500, L501.4021, L100.0100 #### [facility] [address] [place], [address] TUNA <0.10 Normal Class 0 [facility] Comment on above: Performed By: #### L 500.2500, L501.4021, L100.0100 #### [facility] [address] [place], [address] WHEAT <0.10 Normal Class 0 [facility] Comment on above: Performed By: #### L 500.2500, L501.4021, L100.0100 #### [facility] [address] [place], [address] Calculated very low density lipoprotein (VLDL) cholesterol measurementOrdered By: Eduard Henley on 01-27-2025 Calculated very low density lipoprotein (VLDL) cholesterol measurement 31 mg/dL 5-40 [facility] LDL calc ser/plasOrdered By: Eduard Henley on 01-27-2025 Cholesterol in LDL [Mass/Vol] 131 mg/dL [facility] Comment on above: Pjgdvdbrue=737-947 m g/dL & Higher Ugbj=148 mg/dL or greater Laboratory - Miscellaneous t estsOrdered By: Eduard Henley on 01-27-2025 Service comment (Unsp spec) [Interp] Comment . [facility] Comment on above: Levels of Specific I gE Class Description of Class ----- < 0.10 0 Negative 0.10 - 0.31 0/I Equivocal/Low 0.32 - 0.55 I Low 0.56 - 1.40 II Moderate 1.41 - 3.90 III High 3.91 - 19.00 IV Very High 19.01 - 100.00 V Very High >100.00 Very High Lipid Profileon 01-27-2025 CHOL:HDL 2.83 Normal [facility] Comment on above: Order Comment: Order Date: 10/01/24 Order Info: [id number] - LIPID Performed By: #### L 500.4100 #### [facility] [address] [place], [address] Cholesterol [Mass/Vol] 251 mg/dL High <=200 [facility] Comment on above: Order Comment: Order Date: 10/01/24 Order Info: [id number] - LIPID Result Comment: Chol esterol level, Desirable <200 mg/dL Borderline high cholesterol 200-239 mg/dL High cholesterol >=240 mg/dL Recommendations of the NCEP Adult Treatment Panel for the following risk-cutoff thresholds for the [place] population. Performed By: #### L 500.4100 #### [facility] [address] [place], [place], [address] Cholesterol in HDL [Mass/Vol] 89 mg/dL Normal [facility] Comment on above: Order Comment: Order Date: 10/01/24 Order Info: [id number] - LIPID Result Comment: Anum onal Cholesterol Education Program (NCEP) guidelines: <40 mg/dL: Low HDL-cholesterol (major risk factor for CHD) >= 60 mg/dL: High HDL-cholesterol (negative risk factor for CHD) HDL-cholesterol is affected by a number of factors, e.g. smoking, exercise, hormones, sex and age. Performed By: #### L 500.4100 #### [facility] [address] [place], [place], [address] Cholesterol in LDL [Mass/Vol] 131 mg/dL Normal [facility] Comment on above: Order Comment: Order Date: 10/01/24 Order Info: [id number] - LIPID Result Comment: Bord tblzba=117-768 mg/dL Higher Zezv=840 mg/dL or greater Performed By: #### L 500.4100 #### [facility] [address] [place], [place], [address] Cholesterol in VLDL [Mass/Vol] 31 mg/dL Normal 5-40 [facility] Comment on above: Order Comment: Order Date: 10/01/24 Order Info: [id number] - LIPID Performed By: #### L 500.4100 #### [facility] [address] [place], [place], [address] Triglyceride [Mass/Vol] 156 mg/dL Normal [facility] Comment on above: Order Comment: Order Date: 10/01/24 Order Info: [id number] - LIPID Result Comment: The drugs N-Acetylcysteine and Metamizole may falsely depress this assay. Normal range: <150 mg/dL Borderline High: 150-199 mg/dL High: 200-499 mg/dL Very High: >500 mg/dL Performed By: #### L 500.4100 #### [facility] [address] [place], [place], [address] Screening total cholesterol/ high density lipoprotein (HDL) cholesterol ratioOrdered By: Eduard Henley on 01-27-2025 Cholesterol.total/Choles terol in HDL [Mass ratio] 2.83 {ratio} [facility] Serum beef IgE antibody assa y (units/volume)Ordered By: Eduard Henley on 01-27-2025 Beef IgE Qn (S) <0.10 kU/L Class 0 [facility] Serum codfish IgE antibody a ssay (units/volume)Ordered By: Eduard Henley on 01-27-2025 Codfish IgE Qn (S) <0.10 kU/L Class 0 [facility] Serum corn IgE antibody assa y (units/volume)Ordered By: Eduard Henley on 01-27-2025 [place] IgE Qn (S) <0.10 kU/L Class 0 [facility] Serum cow milk IgE antibody assay (units/volume)Ordered By: Eduard Henley on 01-27-2025 Cow milk IgE Qn (S) <0.10 kU/L Class 0 [facility] Serum or plasma cholesterol in HDL measurement (mass/volume)Ordered By: Eduard Henlye on 01-27-2025 Cholesterol in HDL [Mass/Vol] 89 mg/dL >40 [facility] Comment on above: National Cholesterol Education Program (NCEP) guidelines:<40 mg/dL: Low HDL-cholesterol (major risk factor for CHD)>= 60 mg/dL: High HDL-cholesterol (negative risk factor for CHD)HDL-cholesterol is affected by a number of factors, e.g. smoking, exercise, hormones, sex and age. Serum or plasma cholesterol measurement (mass/volume)Ordered By: Eduard Henley on 01-27-2025 Cholesterol [Mass/Vol] 251 mg/dL High <201 [facility] Comment on above: Cholesterol level, D esirable <200 mg/dLBorderline high cholesterol 200-239 mg/dLHigh cholesterol >=240 mg/dLRecommendations of the NCEP Adult Treatment Panel for the following risk-cutoff thresholds for the [place] population. Serum peanut IgE antibody as say (units/volume)Ordered By: Eduard Henley on 01-27-2025 Peanut IgE Qn (S) <0.10 kU/L Class 0 [facility] Serum pork IgE antibody assa y (units/volume)Ordered By: Eduard Henley on 01-27-2025 Pork IgE Qn (S) <0.10 kU/L Class 0 [facility] Serum salmon IgE antibody as say (units/volume)Ordered By: Eduard Henley on 01-27-2025 [place] IgE Qn (S) <0.10 kU/L Class 0 [facility] Serum soybean IgE antibody a ssay (units/volume)Ordered By: Eduard Henley on 01-27-2025 Soybean IgE Qn (S) <0.10 kU/L Class 0 [facility] Serum tuna IgE antibody assa y (units/volume)Ordered By: Eduard Henley on 01-27-2025 Tuna IgE Qn (S) <0.10 kU/L Class 0 [facility] Serum wheat IgE antibody ass ay (units/volume)Ordered By: Eduard Henley on 01-27-2025 Wheat IgE Qn (S) <0.10 kU/L Class 0 [facility] Serum whole egg IgE antibody assay (units/volume)Ordered By: Eduard Henley on 01-27-2025 Whole Egg IgE Qn (S) <0.10 kU/L Class 0 [facility] Comment on above: Performed at: [address] [id number] Director: Brandie Dial MD, Phone: [phone] Triglycerides measurementOrd ered By: Eduard Henley on 01-27-2025 Triglyceride [Mass/Vol] 156 mg/dL <199 [facility] Comment on above: The drugs N-Acetylcy steine and Metamizole may falsely depress this assay. Normal range: <150 mg/dLBorderline High: 150-199 mg/dLHigh: 200-499 mg/dLVery High: >500 mg/dL Vitamin B12on 01-27-2025 Cobalamin (Vitamin B12) [Mass/Vol] 743 pg/mL Normal 180-914 [facility] Comment on above: Order Comment: Order Date: 10/01/24Order Info: [id number] - LIPID Performed By: #### L 503.0106, L5500.0550 ####[facility] [id number] [facility] [place], [address] Vitamin B12 ser/plasOrdered By: Eduard Henley on 01-27-2025 Cobalamin (Vitamin B12) [Mass/Vol] 743 pg/mL 180-914 [facility] 12 Lead EKGon 01-22-2025 12 Lead EKG [facility] [address] [place] [address] 12 Lead EKG 01/22/25 1351 MR#: [id number] Acct: [id number] Name: JOVANY MUÑIZ Rep #: [id number] : 1965 59 From: Jose Lockwood MD [...] Normal ECG Confirmed by MANDIE SY, JOSE ([id number]), script editor JOY PAULSON ([id number]) on 01/25/2025 7:48:42 AM Referred By: ISHA/RUSLAN Confirmed By: JOSE LOCKWOOD MD 01/25/25 0748 Date Jose Lockwood MD CC: Dr. Eduard Henley MD; Dr. Robert Mercer MD Signed Normal [facility] Absolute lymphocyte countOrd ered By: ED PROVIDER on 01-22-2025 Lymphocytes Auto (Unsp spec) [#/Vol] 1.12 10*3/uL 0.83-4.51 [facility] Absolute neutrophil countOrd ered By: ED PROVIDER on 01-22-2025 Neutrophils (Bld) [#/Vol] 3.3 10*3/uL 2.0-7.7 [facility] Anion gap in Serum or Plasma Ordered By: ED PROVIDER on 01-22-2025 Anion gap [Moles/Vol] 14 mmol/L 5-15 [facility] Automated blood erythrocyte countOrdered By: ED PROVIDER on 01-22-2025 RBC (Bld) [#/Vol] 4.48 10*6/uL Low 4.6-6.2 [facility] Comment on above: Performed By: #### L 500.2500, L501.4021, L100.0100 #### [facility] [address] [place], [place], [address] Automated blood hematocrit ( percentage)Ordered By: ED PROVIDER on 01-22-2025 Hematocrit (Bld) [Volume fraction] 43.5 % Normal 40-54 [facility] Comment on above: Performed By: #### L 500.2500, L501.4021, L100.0100 #### [facility] [address] [place], [address] Automated lymphocyte count a s percentage of total leukocytesOrdered By: ED PROVIDER on 01-22-2025 Lymphocytes/100 WBC Auto (Unsp spec) 22.1 % 19-41 [facility] BUN/creatinine ratioOrdered By: ED PROVIDER on 01-22-2025 Urea nitrogen/Creatinine [Mass ratio] 11.0 mg/mg 10- [facility] Basic Metabolic Profile (BMP )on 01-22-2025 BUN/CRE 11.0 RATIO Normal -20 [facility] Comment on above: Performed By: #### L 500.2500, L501.4021, L100.0100 #### [facility] [address] [place], [address] ECRCL 76.71 ml/min Normal 50-250 [facility] Comment on above: Performed By: #### L 500.2500, L501.4021, L100.0100 #### [facility] [address] [place], [address] GAP 14 Normal 5-15 [facility] Comment on above: Performed By: #### L 500.2500, L501.4021, L100.0100 #### [facility] [address] [place], [address] Potassium [Moles/Vol] 4.8 mmol/L Normal 3.3-5.1 [facility] Comment on above: Result Comment: Hemo lysis present, Results??could be affected. ?? Performed By: #### L 500.2500, L501.4021, L100.0100 #### [facility] [address] [place], [address] Basophil percentageOrdered B y: ED PROVIDER on 01-22-2025 Basophils/100 WBC (Bld) 0.8 % Normal 0-1 [facility] Comment on above: Performed By: #### L 500.2500, L501.4021, L100.0100 #### [facility] [address] [place], [address] CBC W/Diff, Automatedon 01-09 Absolute Lymph 1.12 X10 3/uL Normal 0.83-4.51 [facility] Comment on above: Performed By: #### L 500.2500, L501.4021, L100.0100 #### [facility] [address] [place], [address] Absolute Neut 3.3 X10 3/uL Normal 2.0-7.7 [facility] Comment on above: Performed By: #### L 500.2500, L501.4021, L100.0100 #### [facility] [address] [place], [address] IG% 0.400 Normal 0.0-0.9 [facility] Comment on above: Result Comment: IG% - Immature Granulocytes (promyelocytes, myelocytes and metamyelocytes) > 1% indicates that a LEFT SHIFT is Present. Performed By: #### L 500.2500, L501.4021, L100.0100 #### [facility] [address] [place], [address] Lymphocytes/100 WBC (Bld) 22.1 % Normal 19-41 [facility] Comment on above: Performed By: #### L 500.2500, L501.4021, L100.0100 #### [facility] [address] [place], [address] Nucleated RBC (Bld) [#/Vol] 0 10*3/uL Normal 0-5 [facility] Comment on above: Performed By: #### L 500.2500, L501.4021, L100.0100 #### [facility] [address] [place], [address] RDW SD 46.8 fl High 35.1-43.9 [facility] Comment on above: Performed By: #### L 500.2500, L501.4021, L100.0100 #### [facility] [address] [place], [address] Carbon dioxide, total [Moles /volume] in Central venous bloodOrdered By: ED PROVIDER on 01-22-2025 CO2 [Moles/Vol] 21.7 mmol/L Normal 21.0-32.0 [facility] Comment on above: Performed By: #### L 500.2500, L501.4021, L100.0100 #### [facility] [address] [place], [address] Chest 1 View (Portable)on Chest 1 View (Portable) [facility] Imaging Services [address] [place] [address] Chest 1 View (Portable) MR#: [id number] Acct: [id number] Name: JOVANY MUÑIZ Rep #: [id number] : 1965 M 59 From: Rachael Santos nd, MD PCP: Dr. Eduard Henley MD Status: REG ER Study: Chest 1 View (Portable) Date of Exam: 01/22/25 Exam# [id number] Ordering Dr: Robert Mercer MD PROCEDURE: CHEST 1 VIEW (PORTABLE) 01/22/2025 REASON FOR EXAM: CHEST PAIN TECHNIQUE: Frontal view of the chest. COMPARISON: Chest radiograph 09/03/2024. FINDINGS: Hardware: None. Heart: The heart size is normal. Lungs: No focal consolidation, pleural effusion or pneumothorax. Bones: Degenerative changes are identified within the thoracic spine. RAD/Chest 1 View (Portable) IMPRESSION: Negative Chest. Reading Location: [id number] CC: Dr. Eduard Henley MD; Dr. Robert Mercer MD Learning Technologist: Signed Normal [facility] Chloride assayOrdered By: ED PROVIDER on 01-22-2025 Chloride [Moles/Vol] 103 mmol/L Normal 98-108 [facility] Comment on above: Performed By: #### L 500.2500, L501.4021, L100.0100 #### [facility] [address] [place], [address] Emergency Department Summary on 01-22-2025 Emergency Department Summary [facility] Medical Records Department [address] [place] [address] Emergency Department Summary 01/22/25 MR#: [id number] Acct: [id number] Name: JOVANY MUÑIZ Rep #: [id number] : 1965 59 From: Robert Mercer MD PCP: Dr. Eduard Henley MD Status:REG ER Location: ED HPI History of Present Illness Chief Complaint: Allergic Reaction Informant: patient and spouse/S.O. Onset/Context/Timin g Onset: Today Context: Sudden Onset Timing: Continuous Current Severity: Moderate Maximum Severity: Moderate Narrative Narrative: 59-year-old male history of CAD GA stent. 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 (more content not included)... 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 Normal [facility] Eosinophil percentageOrdered By: ED PROVIDER on 01-22-2025 Eosinophils/100 WBC (Bld) 2.4 % Normal 0-5 [facility] Comment on above: Performed By: #### L 500.2500, L501.4021, L100.0100 #### [facility] [address] [place], [address] Erythrocyte distribution wid th ratioOrdered By: ED PROVIDER on 01-22-2025 Erythrocyte distribution width (RBC) [Ratio] 13.0 % Normal 11.6-14.6 [facility] Comment on above: Performed By: #### L 500.2500, L501.4021, L100.0100 #### [facility] [address] [place], [address] Erythrocyte distribution wid th standard deviationOrdered By: ED PROVIDER on 01-22-2025 Erythrocyte distribution width (RBC) [Ratio] 46.8 fl High 35.1-43.9 [facility] Glomerular filtration rate ( GFR) estimation/1.73 sq m using serum, plasma, or whole bOrdered By: ED PROVIDER on 01-22-2025 GFR/1.73 sq M.predicted among non-blacks MDRD (S/P/Bld) [Vol rate/Area] 76 mL/min/{1.73_m2} Normal >60 [facility] Comment on above: mL/min/1.73m2 CKD-EP I Creatinine Equation (2020) Result Comment: mL/m in/1.73m2 CKD-EPI Creatinine Equation (2020) Performed By: #### L 500.2500, L501.4021, L100.0100 #### [facility] [address] [place], [address] Hemoglobin measurementOrdere d By: ED PROVIDER on 01-22-2025 Hemoglobin (Bld) [Mass/Vol] 14.9 g/dL Normal 13.0-16.5 [facility] Comment on above: Performed By: #### L 500.2500, L501.4021, L100.0100 #### [facility] [address] [place], [address] Immature granulocytes/100 WB C Auto (Bld)Ordered By: ED PROVIDER on 01-22-2025 Immature granulocytes/100 WBC (Bld) 0.400 % 0.0-0.9 [facility] Comment on above: IG% - Immature Granu locytes (promyelocytes, myelocytes and metamyelocytes) > 1% indicates that a LEFT SHIFT is Present. L499.0042on 01-22-2025 Trop T High Sen < 6 Normal <=22 [facility] Comment on above: Performed By: #### L 499.0042 #### [facility] [address] [place], [address] L499.0043on 01-22-2025 Trop T High Sen Normal <=22 [facility] Comment on above: Result Comment: PABLITO ENT DISCHARGED Performed By: #### L 500.2500, L501.4021, L100.0100 #### [facility] [address] [place], [address] L501.4021on 01-22-2025 Trop T High Sen < 6 Normal <=22 [facility] Comment on above: Result Comment: Hemo lysis present, Results??could be affected. ?? Performed By: #### L 500.2500, L501.4021, L100.0100 #### [facility] [address] [place], [address] MCV (mean corpuscular volume ) determinationOrdered By: ED PROVIDER on 01-22-2025 MCV (RBC) [Entitic vol] 97.1 fL High 80-94 [facility] Comment on above: Performed By: #### L 500.2500, L501.4021, L100.0100 #### [facility] [address] [place], [address] Mean corpuscular hemoglobin (MCH) determinationOrdered By: ED PROVIDER on 01-22-2025 MCH (RBC) [Entitic mass] 33.3 pg High 27.0-32.0 [facility] Comment on above: Performed By: #### L 500.2500, L501.4021, L100.0100 #### [facility] [address] [place], [address] Mean corpuscular hemoglobin concentration (MCHC) determinationOrdered By: ED PROVIDER on 01-22-2025 MCHC (RBC) [Mass/Vol] 34.3 g/dL Normal 32-36 [facility] Comment on above: Performed By: #### L 500.2500, L501.4021, L100.0100 #### [facility] [address] [place], [address] Mean platelet volume determi nationOrdered By: ED PROVIDER on 01-22-2025 Platelet mean volume (Bld) [Entitic vol] 9.4 fL Normal 6.2-12.0 [facility] Comment on above: Performed By: #### L 500.2500, L501.4021, L100.0100 #### [facility] [address] [place], [address] Monocyte percentageOrdered B y: ED PROVIDER on 01-22-2025 Monocytes/100 WBC (Bld) 10.1 % High 0-10 [facility] Comment on above: Performed By: #### L 500.2500, L501.4021, L100.0100 #### [facility] [address] [place], [address] Neutrophil percentageOrdered By: ED PROVIDER on 01-22-2025 Neutrophils/100 WBC (Bld) 64.2 % Normal 47-70 [facility] Comment on above: Performed By: #### L 500.2500, L501.4021, L100.0100 #### [facility] [address] [place], [address] Nucleated red blood cell per centageOrdered By: ED PROVIDER on 01-22-2025 Nucleated RBC/100 WBC (Bld) [Ratio] 0 % 0-5 [facility] Platelet countOrdered By: ED PROVIDER on 01-22-2025 Platelets (Bld) [#/Vol] 211 10*3/uL Normal 150-450 [facility] Comment on above: Performed By: #### L 500.2500, L501.4021, L100.0100 #### [facility] [address] [place], [address] Potassium measurement (mass/ volume)Ordered By: ED PROVIDER on 01-22-2025 Potassium (Unsp spec) [Mass/Vol] 4.8 mmol/L 3.3-5.1 [facility] Comment on above: Hemolysis present, R esults could be affected. Serum creatinine measurement (mass/volume)Ordered By: ED PROVIDER on 01-22-2025 Creatinine [Mass/Vol] 1.11 mg/dL Normal 0.70-1.20 [facility] Comment on above: Performed By: #### L 500.2500, L501.4021, L100.0100 #### [facility] [address] [place], [address] Serum glucose measurement (m ass/volume)Ordered By: ED PROVIDER on 01-22-2025 Glucose [Mass/Vol] 97 mg/dL Normal 70-99 [facility] Comment on above: Performed By: #### L 500.2500, L501.4021, L100.0100 #### [facility] [address] [place], [address] Serum or plasma calcium randa urement (mass/volume)Ordered By: ED PROVIDER on 01-22-2025 Calcium [Mass/Vol] 9.5 mg/dL Normal 7.6-11.0 [facility] Comment on above: Performed By: #### L 500.2500, L501.4021, L100.0100 #### [facility] [address] [place], [address] Serum or plasma urea nitroge n measurement (mass/volume)Ordered By: ED PROVIDER on 01-22-2025 Urea nitrogen [Mass/Vol] 12 mg/dL Normal 4-19 [facility] Comment on above: Performed By: #### L 500.2500, L501.4021, L100.0100 #### [facility] [address] [place], [address] Sodium levelOrdered By: ED Madisyn LEIJA on 01-22-2025 Sodium [Moles/Vol] 139 mmol/L Normal 133-145 [facility] Comment on above: Performed By: #### L 500.2500, L501.4021, L100.0100 #### [facility] [address] [place], [address] Troponin T.cardiac [Mass/vol ume] in Serum or Plasma by High sensitivity methodOrdered By: Robert Mercer on 01-22-2025 Troponin T.cardiac High sensitivity method [Mass/Vol] < 6 ng/L <22 [facility] Comment on above: Hemolysis present, R esults could be affected. White blood cell (WBC) count Ordered By: ED PROVIDER on 01-22-2025 WBC (Bld) [#/Vol] 5.1 10*3/uL Normal 4.4-11.0 [facility] Comment on above: Performed By: #### L 500.2500, L501.4021, L100.0100 #### [facility] [address] [place], [address] Urgent Care Visit Reporton 0 11-09-2024 Urgent Care Visit Report [facility] [address], [address] [place], [place] [address] OFFICE VISIT Date of Service: 11/09/24 MR#: [id number] Acct: [id number] Name: JOVANY MUÑIZ Rep #: [id number] : 1965 Provider: FANTA Driscoll Age/Sex: 59/M Location: [facility] Status: Signed Intake Vital Signs 09/03/24 00:23 [...] mg PO QDAY 08/06/24 10/27/24 His tory [facility] Medical History Wears partial dentures High cholesterol Heartburn Gastric reflux History of diverticulitis Former smoker History of heart attack History of echocardiogram History of stress test Hypertension Cardiology follow-up encounter Sigmoid diverticulitis History of coronary artery disease Presence of stent in coronary artery (04/25/23) Essential hypertension HLD (hyperlipidemia) Old myocardial infarction 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 Eduard Henley MD Status: REG CLI Referring Dr: Mitchell Dubois NP TOUR SALES REPRESENTATIVE-C Sex: M C Stress Test Report Exercise [...] 11/03/241806 Date _ Jose Lockwood MD CC: TOUR SALES REPRESENTATIVE-C Mitchell Dubois; Dr. Eduard Henley MD ~ Date Dictated: 11/03/241804 Date Transcribed: 11/03/241804 Learning Technologist: [place] Signed [facility] Work Phone: Stress Reporton 11-03-2024 Stress Report [facility] [address] [place] [address] MR#: [id number] Acct: [id number] Name: JOVANY MUÑIZ Rep #: [id number] : 1965 59 From: Jose Lockwood MD Primary Care: Dr. Eduard Henley MD Status: REG CLI Referring Dr: Mitchell Dubois NP TOUR SALES REPRESENTATIVE-C Sex: M C Stress Test Report Exercise [...] MD Date Dictated: 11/03/241804 Date Transcribed: 11/03/241804 Learning Technologist: CO Signed Normal [facility] Vitamin D,25 Hydroxyon 09-30 Vitamin D 25-OH 35.3 ng/mL Normal [facility] Comment on above: Order Comment: Order Date: 09/28/24Order Info: [id number] - G09Lcbor Info: [id number] - VITD25 Result Comment: Mayte min D 25(OH) Status Range Deficiency <20 ng/mL (50nmol/L) Insufficiency 20 - 30 ng/mL (50 - 75 nmol/L) Sufficiency 30 - 100 ng/mL (75 - 250 nmol/L) Toxicity >100 ng/mL (>250 nmol/L) Performed By: #### L 501.9910, L506.1000, L500.4050, L503.0105, L500.4100 ####[facility] [address] [place], [address] 20-UT-Pbcikwf DOrdered By: Cliff Henley on 09-28-2024 Vitamin D 25-Hydroxy 35.3 ng/mL [facility] Comment on above: Vitamin D 25(OH) Sta tus Range Deficiency <20 ng/mL (50nmol/L) Insufficiency 20 - 30 ng/mL (50 - 75 nmol/L) Sufficiency 30 - 100 ng/mL (75 - 250 nmol/L) Toxicity >100 ng/mL (>250 nmol/L) Albumin to globulin ratioOrd ered By: Eduard Henley on 09-28-2024 Albumin/Globulin [Mass ratio] 0.8 {ratio} Low 0.9-2.4 [facility] Bilirubin, totalOrdered By: Eduard Henley on 09-28-2024 Bilirubin [Mass/Vol] 0.50 mg/dL 0.20-1.00 [facility] Comment on above: For patients on eltr ombopag therapy, use of Dimension [place] TBIL is not recommended. Blood urea nitrogen (BUN)/cr eatinine ratioOrdered By: Eduard Henley on 09-28-2024 Urea nitrogen/Creatinine [Mass ratio] 15.0 mg/mg 10-20 [facility] Carbon dioxide measurementOr dered By: Eduard Henley on 09-28-2024 CO2 [Moles/Vol] 28.0 mmol/L 21.0-32.0 [facility] Chloride measurementOrdered By: Eduard Henley on 09-28-2024 Chloride [Moles/Vol] 104 mmol/L 98-107 [facility] Comprehensive Metabolic Prof ilon 09-28-2024 Albumin [Mass/Vol] 3.7 g/dL Normal 3.2-5.0 [facility] Comment on above: Order Comment: Order Date: 09/28/24 Order Info: [id number] - CMP Order Info: [id number] - LIPID Order Info: [id number] - PSA Performed By: #### L 501.9910, L506.1000, L500.4050, L503.0105, L500.4100 #### [facility] [address] [place], [address] Albumin/Globulin [Mass ratio] 0.8 {ratio} Low 0.9-2.4 [facility] Comment on above: Order Comment: Order Date: 09/28/24 Order Info: [id number] - CMP Order Info: [id number] - LIPID Order Info: 2851 - PSA Performed By: #### L 501.9910, L506.1000, L500.4050, L503.0105, L500.4100 #### [facility] [address] [place], [address] ALK P 66 U/L Normal 45-117 [facility] Comment on above: Order Comment: Order Date: 09/28/24 Order Info: [id number] - CMP Order Info: [id number] - LIPID Order Info: [id number] - PSA Performed By: #### L 501.9910, L506.1000, L500.4050, L503.0105, L500.4100 #### [facility] [address] [place], [address] ALT [Catalytic activity/Vol] 38 U/L Normal 16-61 [facility] Comment on above: Order Comment: Order Date: 09/28/24 Order Info: 0786 - CMP Order Info: [id number] - LIPID Order Info: [id number] - PSA Performed By: #### L 501.9910, L506.1000, L500.4050, L503.0105, L500.4100 #### [facility] [address] [place], [address] AST [Catalytic activity/Vol] 29 U/L Normal 15-37 [facility] Comment on above: Order Comment: Order Date: 09/28/24 Order Info: [id number] - CMP Order Info: [id number] - LIPID Order Info: [id number] - PSA Performed By: #### L 501.9910, L506.1000, L500.4050, L503.0105, L500.4100 #### [facility] [address] [place], [address] Bilirubin [Mass/Vol] 0.50 mg/dL Normal 0.20-1.00 [facility] Comment on above: Order Comment: Order Date: 09/28/24 Order Info: [id number] - CMP Order Info: - LIPID Order Info: [id number] - PSA Result Comment: For patients on eltrombopag therapy, use of Dimension [place] TBIL is not recommended. Performed By: #### L 501.9910, L506.1000, L500.4050, L503.0105, L500.4100 #### [facility] [address] [place], [address] BUN/CRE 15.0 RATIO Normal 10-20 [facility] Comment on above: Order Comment: Order Date: 09/28/24 Order Info: [id number] - CMP Order Info: - LIPID Order Info: [id number] - PSA Performed By: #### L 501.9910, L506.1000, L500.4050, L503.0105, L500.4100 #### [facility] [address] [place], [address] CA,Total 9.9 mg/dL Normal 8.5-10.1 [facility] Comment on above: Order Comment: Order Date: 09/28/24 Order Info: [id number] - CMP Order Info: - LIPID Order Info: [id number] - PSA Performed By: #### L 501.9910, L506.1000, L500.4050, L503.0105, L500.4100 #### [facility] [address] [place], [address] Chloride [Moles/Vol] 104 mmol/L Normal 98-107 [facility] Comment on above: Order Comment: Order Date: 09/28/24 Order Info: [id number] - CMP Order Info: [id number] - LIPID Order Info: [id number] - PSA Performed By: #### L 501.9910, L506.1000, L500.4050, L503.0105, L500.4100 #### [facility] [address] [place], [address] CO2 [Moles/Vol] 28.0 mmol/L Normal 21.0-32.0 [facility] Comment on above: Order Comment: Order Date: 09/28/24 Order Info: [id number]- - CMP Order Info: - LIPID Order Info: 1 - PSA Performed By: #### L 501.9910, L506.1000, L500.4050, L503.0105, L500.4100 #### [facility] [address] [place] [place], [address] Creatinine [Mass/Vol] 1.20 mg/dL Normal 0.70-1.30 [facility] Comment on above: Order Comment: Order Date: 09/28/24 Order Info: [id number] - CMP Order Info: - LIPID Order Info: [id number] - PSA Result Comment: The validity of the calculated GFR GFRAA in patients over 70 years has not been determined. Clinical correlation is essential. Performed By: #### L 501.9910, L506.1000, L500.4050, L503.0105, L500.4100 #### [facility] [address] [place], [address] EST GFR - AA 79 mL/min Normal >60 [facility] Comment on above: Order Comment: Order Date: 09/28/24 Order Info: [id number] - CMP Order Info: - LIPID Order Info: [id number] - PSA Result Comment: Afri can [place] GFR Calc Performed By: #### L 501.9910, L506.1000, L500.4050, L503.0105, L500.4100 #### [facility] [address] [place], [address] GAP 5 Normal 5-15 [facility] Comment on above: Order Comment: Order Date: 09/28/24 Order Info: [id number] - CMP Order Info: - LIPID Order Info: [id number] - PSA Performed By: #### L 501.9910, L506.1000, L500.4050, L503.0105, L500.4100 #### [facility] [address] [place], [address] GFR/1.73 sq M.predicted among non-blacks MDRD (S/P/Bld) [Vol rate/Area] 65 mL/min/{1.73_m2} Normal >60 [facility] Comment on above: Order Comment: Order Date: 09/28/24 Order Info: 07 - CMP Order Info: - LIPID Order Info: [id number] - PSA Result Comment: Non- GFR Calc Performed By: #### L 501.9910, L506.1000, L500.4050, L503.0105, L500.4100 #### [facility] [address] [place], [address] Globulin (S) [Mass/Vol] 4.8 g/dL High 2.2-4.2 [facility] Comment on above: Order Comment: Order Date: 09/28/24 Order Info: [id number] - CMP Order Info: [id number] - LIPID Order Info: [id number] - PSA Performed By: #### L 501.9910, L506.1000, L500.4050, L503.0105, L500.4100 #### [facility] [address] [place], [address] Glucose [Mass/Vol] 105 mg/dL Normal 74-106 [facility] Comment on above: Order Comment: Order Date: 09/28/24 Order Info: 0786 - CMP Order Info: [id number] - LIPID Order Info: [id number] - PSA Result Comment: Fast ing Glucose result from 100 to 125 mg/dL suggests IMPAIRED HOMEOSTASIS per A.D.A. criteria. Performed By: #### L 501.9910, L506.1000, L500.4050, L503.0105, L500.4100 #### [facility] [address] [place], [address] Potassium [Moles/Vol] 4.4 mmol/L Normal 3.5-5.1 [facility] Comment on above: Order Comment: Order Date: 09/28/24 Order Info: 0786- - CMP Order Info: [id number] - LIPID Order Info: [id number] - PSA Performed By: #### L 501.9910, L506.1000, L500.4050, L503.0105, L500.4100 #### [facility] [address] [place], [address] Sodium [Moles/Vol] 138 mmol/L Normal 136-145 [facility] Comment on above: Order Comment: Order Date: 09/28/24 Order Info: 07 - CMP Order Info: [id number] - LIPID Order Info: [id number] - PSA Performed By: #### L 501.9910, L506.1000, L500.4050, L503.0105, L500.4100 #### [facility] [address] [place], [address] T PROT 8.5 g/dL High 6.4-8.2 [facility] Comment on above: Order Comment: Order Date: 09/28/24 Order Info: 0786- - CMP Order Info: [id number] - LIPID Order Info: [id number] - PSA Performed By: #### L 501.9910, L506.1000, L500.4050, L503.0105, L500.4100 #### [facility] [address] [place], [address] Urea nitrogen [Mass/Vol] 18 mg/dL Normal 7-18 [facility] Comment on above: Order Comment: Order Date: 09/28/24 Order Info: [id number]- - CMP Order Info: [id number] - LIPID Order Info: [id number] - PSA Performed By: #### L 501.9910, L506.1000, L500.4050, L503.0105, L500.4100 #### [facility] [place], [address] Estimated glomerular filtrat ion rate (GFR) AmericanOrdered By: Eduard Henley on 09-28-2024 Estimated GFR (MDRD) Amer 79 mL/min >60 [facility] Comment on above: GFR Calc Glomerular filtration rate ( GFR) estimationOrdered By: Eduard Henley on 09-28-2024 Estimated GFR (MDRD) Non-Af Amer 65 mL/min >60 [facility] Comment on above: Non- GFR Calc GFR/1.73 sq M.predicted among non-blacks MDRD (S/P/Bld) [Vol rate/Area] 65 mL/min/{1.73_m2} >60 [facility] Comment on above: Non- GFR Calc Glucose measurementOrdered B y: Eduard Henley on 09-28-2024 Glucose [Mass/Vol] 105 mg/dL 74-106 [facility] Comment on above: Fasting Glucose resu lt from 100 to 125 mg/dL suggests IMPAIRED HOMEOSTASIS per A.D.A. criteria. High density lipoprotein (HD L) measurementOrdered By: Eduard Henley on 09-28-2024 Cholesterol in HDL [Mass/Vol] 81 mg/dL >40 [facility] Comment on above: The drugs N-Acetylcy steine and Metamizole may falsely depress this assay. Reference Range HDL <40 mg/dL Low HDL Cholesterol HDL >or= 60 mg/dL High HDL Cholesterol Laboratory - Chemistry and C hemistry - challengeOrdered By: Eduard Henley on 09-28-2024 AST [Catalytic activity/Vol] 29 U/L 15-37 [facility] Lipid Profileon 09-28-2024 Cholesterol [Mass/Vol] 245 mg/dL High 200 [facility] Comment on above: Order Comment: Order Date: 09/28/24 Order Info: [id number] - CMP Order Info: [id number] - LIPID Order Info: [id number] - PSA Result Comment: <200 mg/dL Desirable 200-240 mg/dL Borderline >240 mg/dL High Risk Performed By: #### L 501.9910, L506.1000, L500.4050, L503.0105, L500.4100 #### [facility] [address] [place], [address] Cholesterol in HDL [Mass/Vol] 81 mg/dL Normal [facility] Comment on above: Order Comment: Order Date: 09/28/24 Order Info: [id number] - CMP Order Info: [id number] - LIPID Order Info: [id number] - PSA Result Comment: The drugs N-Acetylcysteine and Metamizole may falsely depress this assay. Reference Range HDL <40 mg/dL Low HDL Cholesterol HDL >or= 60 mg/dL High HDL Cholesterol Performed By: #### L 501.9910, L506.1000, L500.4050, L503.0105, L500.4100 #### [facility] [address] [place], [address] Cholesterol in LDL [Mass/Vol] 144 mg/dL High 0-130 [facility] Comment on above: Order Comment: Order Date: 09/28/24 Order Info: [id number] - CMP Order Info: [id number] - LIPID Order Info: [id number] - PSA Performed By: #### L 501.9910, L506.1000, L500.4050, L503.0105, L500.4100 #### [facility] [address] [place], [address] Cholesterol in VLDL [Mass/Vol] 20 mg/dL Normal 5-40 [facility] Comment on above: Order Comment: Order Date: 09/28/24 Order Info: [id number]- - CMP Order Info: [id number] - LIPID Order Info: [id number] - PSA Performed By: #### L 501.9910, L506.1000, L500.4050, L503.0105, L500.4100 #### [facility] [address] [place], [address] Triglyceride [Mass/Vol] 101 mg/dL Normal [facility] Comment on above: Order Comment: Order Date: 09/28/24 Order Info: [id number] - CMP Order Info: [id number] - LIPID Order Info: [id number] - PSA Result Comment: The drugs N-Acetylcysteine and Metamizole may falsely depress this assay. Serum Triglycerides Reference Interval Normal <150 mg/dL Borderline high 150 - 199 mg/dL High 200 - 499 mg/dL Very High > or = 500 mg/dL Performed By: #### L 501.9910, L506.1000, L500.4050, L503.0105, L500.4100 #### [facility] [address] [place], [address] Low density lipoprotein (LDL ) cholesterol measurementOrdered By: Eduard Henley on 09-28-2024 Cholesterol in LDL [Mass/Vol] 144 mg/dL High 0-130 [facility] PSA,Total - Annual Screenon 09-28-2024 PSA,TOT SCREEN 0.78 ng/mL Normal 0.00-4.00 [facility] Comment on above: Order Comment: Order Date: 09/28/24Order Info: [id number] - CMPOrder Info: [id number] - LIPIDOrder Info: [id number] - PSA Result Comment: This test was performed using the TPSA assay method for the [employer] chemistry system. Values obtained with different assay methods cannot be used interchangably. When changing PSA assays in the course of monitoring a patient, additional sequential testing should be carried out to confirm baseline values. Performed By: #### L 501.9910, L506.1000, L500.4050, L503.0105, L500.4100 ####[facility] [address] [facility] [address] [place], [place], [address] Potassium measurementOrdered By: Eduard Henley on 09-28-2024 Potassium [Moles/Vol] 4.4 mmol/L 3.5-5.1 [facility] Screening prostate specific antigen (PSA) measurementOrdered By: Eduard Henley on 09-28-2024 Prostate Specific Antigen Screen 0.78 ng/mL 0.00-4.00 [facility] Comment on above: This test was perfor med using the TPSA assay method for the[employer] chemistry system. Values obtained with differentassay methods cannot be used interchangably.When changing PSA assays in the course of monitoring apatient, additional sequential testing should be carriedout to confirm baseline values. Serum anion gap measurementO rdered By: Eduard Henley on 09-28-2024 Anion gap [Moles/Vol] 5 mmol/L 5-15 [facility] Serum globulin measurementOr dered By: Eduard Henley on 09-28-2024 Globulin (S) [Mass/Vol] 4.8 g/dL High 2.2-4.2 [facility] Serum or plasma alanine pedraza otransferase (ALT) measurementOrdered By: Eduard Henley on 09-28-2024 ALT [Catalytic activity/Vol] 38 U/L 16-61 [facility] Serum or plasma albumin randa urement (mass/volume)Ordered By: Eduard Henley on 09-28-2024 Albumin [Mass/Vol] 3.7 g/dL 3.2-5.0 [facility] Serum or plasma alkaline saw sphatase measurementOrdered By: Eduard Henley on 09-28-2024 ALP [Catalytic activity/Vol] 66 U/L 45-117 [facility] Serum or plasma calcium randa urement (mass/volume)Ordered By: Eduard Henley on 09-28-2024 Calcium [Mass/Vol] 9.9 mg/dL 8.5-10.1 [facility] Serum or plasma cholesterol measurement (mass/volume)Ordered By: Eduard Henley on 09-28-2024 Cholesterol [Mass/Vol] 245 mg/dL High <200 [facility] Comment on above: <200 mg/dL Desirable 200-240 mg/dL Borderline >240 mg/dL High Risk Serum or plasma creatinine m easurement (mass/volume)Ordered By: Eduard Henley on 09-28-2024 Creatinine [Mass/Vol] 1.20 mg/dL 0.70-1.30 [facility] Comment on above: The validity of the calculated GFR & GFRAA in patients over 70 years has not been determined. Clinical correlation is essential. Serum or plasma urea nitroge n measurement (mass/volume)Ordered By: Eduard Henley on 09-28-2024 Urea nitrogen [Mass/Vol] 18 mg/dL 7-18 [facility] Sodium levelOrdered By: Rubina surendraher Henley on 09-28-2024 Sodium [Moles/Vol] 138 mmol/L 136-145 [facility] Total proteinOrdered By: Mukesh juanher Henley on 09-28-2024 Protein [Mass/Vol] 8.5 g/dL High 6.4-8.2 [facility] Triglycerides measurementOrd ered By: Eduard Henley on 09-28-2024 Triglyceride [Mass/Vol] 101 mg/dL <199 [facility] Comment on above: The drugs N-Acetylcy steine and Metamizole may falsely depress this assay.Serum Triglycerides Reference Interval Normal <150 mg/dL Borderline high 150 - 199 mg/dL High 200 - 499 mg/dL Very High > or = 500 mg/dL Very low density lipoprotein (VLDL) cholesterol measurementOrdered By: Eduard Henley on 09-28-2024 Very low density lipoprotein (VLDL) cholesterol measurement 20 mg/dL 5-40 [facility] VLDL Cholesterol 20 mg/dL 5-40 [facility] Vitamin B12on 09-28-2024 Cobalamin (Vitamin B12) [Mass/Vol] 337 pg/mL Normal 211-911 [facility] Comment on above: Order Comment: Order Date: 09/28/24Order Info: [id number] - [id number] Info: [id number] - VITD25 Performed By: #### L 501.9910, L506.1000, L500.4050, L503.0105, L500.4100 ####[facility] [address] [facility] [address] [place], [address] Vitamin B12 measurementOrder ed By: Eduard Henley on 09-28-2024 Cobalamin (Vitamin B12) [Mass/Vol] 337 pg/mL 211-911 [facility] 12 Lead EKGon 09-03-2024 12 Lead EKG [facility] Cardiovascular Services [address] [place] [address] 12 Lead EKG 09/03/24 0023 MR#: [id number] Acct: [id number] Name: JOVANY MUÑIZ Rep #: [id number] : 1965 58 From: Eileen Ray MD [...] Abnormal ECG Confirmed by FLOR SY, GUANAKO ([id number]), script editor RUBI ROMERO ([id number]) on 09/07/2024 7:16:39 AM Referred By: TB Confirmed By: GUANAKO RAY MD 09/07/24 0716 Date Eileen Ray MD CC: Dr. Eduard Henley MD; Dr. Jesus Romero, Signed Normal [facility] Absolute neutrophil countOrd ered By: Jesus Romero on 09-03-2024 Neutrophils (Bld) [#/Vol] 3.1 10*3/uL 2.0-7.7 [facility] BNP (brain natriuretic pepti de measurement)Ordered By: Jesus Romero on 09-03-2024 Natriuretic peptide B (Bld) [Mass/Vol] 7.1 pg/mL 0-100 [facility] BNP,B-Type NATRIURETIC PEPTI Torrey 09-03-2024 Natriuretic peptide B (Bld) [Mass/Vol] 7.1 pg/mL Normal 0-100 [facility] Comment on above: Performed By: #### L 501.5425, L501.5200, L100.0100, L503.6620, L500.2500, L501.9520 ####[facility] [address] [place], [address] Basic Metabolic Profile (BMP )on 09-03-2024 BUN/CRE 14.0 RATIO Normal 10-20 [facility] Comment on above: Order Comment: 1Y Performed By: #### L 501.5425, L501.5200, L100.0100, L503.6620, L500.2500, L501.9520 ####[facility] [address] [place], [address] CA,Total 9.3 mg/dL Normal 8.5-10.1 [facility] Comment on above: Order Comment: 1Y Performed By: #### L 501.5425, L501.5200, L100.0100, L503.6620, L500.2500, L501.9520 ####[facility] [address] [place], [address] Chloride [Moles/Vol] 104 mmol/L Normal 98-107 [facility] Comment on above: Order Comment: 1Y Performed By: #### L 501.5425, L501.5200, L100.0100, L503.6620, L500.2500, L501.9520 ####[facility] [address] [place], [address] CO2 [Moles/Vol] 26.0 mmol/L Normal 21.0-32.0 [facility] Comment on above: Order Comment: 1Y Performed By: #### L 501.5425, L501.5200, L100.0100, L503.6620, L500.2500, L501.9520 ####[facility] [address] [place], [address] Creatinine [Mass/Vol] 1.29 mg/dL Normal 0.70-1.30 [facility] Comment on above: Order Comment: 1Y Result Comment: The validity of the calculated GFR GFRAA in patients over 70 years has not been determined. Clinical correlation is essential. Performed By: #### L 501.5425, L501.5200, L100.0100, L503.6620, L500.2500, L501.9520 ####[facility] [address] [place], [address] ECRCL 73.11 ml/min Normal [facility] Comment on above: Order Comment: 1Y Performed By: #### L 501.5425, L501.5200, L100.0100, L503.6620, L500.2500, L501.9520 ####[facility] [address] [place], [address] EST GFR - AA 73 mL/min Normal >60 [facility] Comment on above: Order Comment: 1Y Result Comment: Afri can [place] GFR Calc Performed By: #### L 501.5425, L501.5200, L100.0100, L503.6620, L500.2500, L501.9520 ####[facility] [address] [place], [address] GAP 8 Normal 5-15 [facility] Comment on above: Order Comment: 1Y Performed By: #### L 501.5425, L501.5200, L100.0100, L503.6620, L500.2500, L501.9520 ####[facility] [address] [place], [address] GFR/1.73 sq M.predicted among non-blacks MDRD (S/P/Bld) [Vol rate/Area] 60 mL/min/{1.73_m2} Normal >60 [facility] Comment on above: Order Comment: 1Y Result Comment: Non- GFR Calc Performed By: #### L 501.5425, L501.5200, L100.0100, L503.6620, L500.2500, L501.9520 ####[facility] [address] [place], [address] Glucose [Mass/Vol] 102 mg/dL Normal 74-106 [facility] Comment on above: Order Comment: 1Y Result Comment: Fast ing Glucose result from 100 to 125 mg/dL suggests IMPAIRED HOMEOSTASIS per A.D.A. criteria. Performed By: #### L 501.5425, L501.5200, L100.0100, L503.6620, L500.2500, L501.9520 ####[facility] [address] [place], [address] Potassium [Moles/Vol] 3.8 mmol/L Normal 3.5-5.1 [facility] Comment on above: Order Comment: 1Y Result Comment: Slig ht Hemolysis, Result may be falsely increased. Performed By: #### L 501.5425, L501.5200, L100.0100, L503.6620, L500.2500, L501.9520 ####[facility] [address] [place], [address] Sodium [Moles/Vol] 138 mmol/L Normal 136-145 [facility] Comment on above: Order Comment: 1Y Performed By: #### L 501.5425, L501.5200, L100.0100, L503.6620, L500.2500, L501.9520 ####[facility] [address] [place], [address] Urea nitrogen [Mass/Vol] 18 mg/dL Normal 7-18 [facility] Comment on above: Order Comment: 1Y Performed By: #### L 501.5425, L501.5200, L100.0100, L503.6620, L500.2500, L501.9520 ####[facility] [address] [place], [address] Basophil percentageOrdered B y: Jesus Romero on 09-03-2024 Basophils/100 WBC (Bld) 1.2 % High 0-1 [facility] Blood urea nitrogen (BUN)/cr eatinine ratioOrdered By: Jesus Romero on 09-03-2024 Urea nitrogen/Creatinine [Mass ratio] 14.0 mg/mg 10-20 [facility] CBC W/Diff, Automatedon 01-2 Absolute Lymph 1.72 X10 3/uL Normal 0.83-4.51 [facility] Comment on above: Performed By: #### L 501.5425, L501.5200, L100.0100, L503.6620, L500.2500, L501.9520 ####[facility] [address] [place], [address] Absolute Neut 3.1 X10 3/uL Normal 2.0-7.7 [facility] Comment on above: Performed By: #### L 501.5425, L501.5200, L100.0100, L503.6620, L500.2500, L501.9520 ####[facility] [address] [place], [address] Basophils/100 WBC (Bld) 1.2 % High 0-1 [facility] Comment on above: Performed By: #### L 501.5425, L501.5200, L100.0100, L503.6620, L500.2500, L501.9520 ####[facility] [address] [place], [address] Eosinophils/100 WBC (Bld) 3.3 % Normal 0-5 [facility] Comment on above: Performed By: #### L 501.5425, L501.5200, L100.0100, L503.6620, L500.2500, L501.9520 ####[facility] [address] [place], [address] Erythrocyte distribution width (RBC) [Ratio] 13.2 % Normal 11.6-14.6 [facility] Comment on above: Performed By: #### L 501.5425, L501.5200, L100.0100, L503.6620, L500.2500, L501.9520 ####[facility] [address] [place], [address] Hematocrit (Bld) [Volume fraction] 39.8 % Low 40-54 [facility] Comment on above: Performed By: #### L 501.5425, L501.5200, L100.0100, L503.6620, L500.2500, L501.9520 ####[facility] [address] [place], [address] Hemoglobin (Bld) [Mass/Vol] 13.4 g/dL Normal 13.0-16.5 [facility] Comment on above: Performed By: #### L 501.5425, L501.5200, L100.0100, L503.6620, L500.2500, L501.9520 ####[facility] [address] [place], [address] IG% 0.500 Normal 0.0-0.9 [facility] Comment on above: Result Comment: IG% - Immature Granulocytes (promyelocytes, myelocytes and metamyelocytes) > 1% indicates that a LEFT SHIFT is Present. Performed By: #### L 501.5425, L501.5200, L100.0100, L503.6620, L500.2500, L501.9520 ####[facility] [address] [place], [address] Lymphocytes/100 WBC (Bld) 30.3 % Normal 19-41 [facility] Comment on above: Performed By: #### L 501.5425, L501.5200, L100.0100, L503.6620, L500.2500, L501.9520 ####[facility] [address], [address] MCH (RBC) [Entitic mass] 33.0 pg High 27.0-32.0 [facility] Comment on above: Performed By: #### L 501.5425, L501.5200, L100.0100, L503.6620, L500.2500, L501.9520 ####[facility] [address] [place], [address] MCHC (RBC) [Mass/Vol] 33.7 g/dL Normal 32-36 [facility] Comment on above: Performed By: #### L 501.5425, L501.5200, L100.0100, L503.6620, L500.2500, L501.9520 ####[facility] [address] [place], [address] MCV (RBC) [Entitic vol] 98.0 fL High 80-94 [facility] Comment on above: Performed By: #### L 501.5425, L501.5200, L100.0100, L503.6620, L500.2500, L501.9520 ####[facility] [address] [place], [address] Monocytes/100 WBC (Bld) 10.9 % High 0-10 [facility] Comment on above: Performed By: #### L 501.5425, L501.5200, L100.0100, L503.6620, L500.2500, L501.9520 ####[facility] [address] [place], [address] Neutrophils/100 WBC (Bld) 53.8 % Normal 47-70 [facility] Comment on above: Performed By: #### L 501.5425, L501.5200, L100.0100, L503.6620, L500.2500, L501.9520 ####[facility] [address] [place], [address] Nucleated RBC (Bld) [#/Vol] 0 10*3/uL Normal 0-5 [facility] Comment on above: Performed By: #### L 501.5425, L501.5200, L100.0100, L503.6620, L500.2500, L501.9520 ####[facility] [address] [place], [address] Platelet mean volume (Bld) [Entitic vol] 10.0 fL Normal 6.2-12.0 [facility] Comment on above: Performed By: #### L 501.5425, L501.5200, L100.0100, L503.6620, L500.2500, L501.9520 ####[facility] [address] [place], [address] Platelets (Bld) [#/Vol] 236 10*3/uL Normal 150-450 [facility] Comment on above: Performed By: #### L 501.5425, L501.5200, L100.0100, L503.6620, L500.2500, L501.9520 ####[facility] [address] [place], [address] RBC (Bld) [#/Vol] 4.06 10*6/uL Low 4.6-6.2 [facility] Comment on above: Performed By: #### L 501.5425, L501.5200, L100.0100, L503.6620, L500.2500, L501.9520 ####[facility] [address] [place], [address] RDW SD 47.3 fl High 35.1-43.9 [facility] Comment on above: Performed By: #### L 501.5425, L501.5200, L100.0100, L503.6620, L500.2500, L501.9520 ####[facility] [address] [place], [address] WBC (Bld) [#/Vol] 5.7 10*3/uL Normal 4.4-11.0 [facility] Comment on above: Performed By: #### L 501.5425, L501.5200, L100.0100, L503.6620, L500.2500, L501.9520 ####[facility] [address] [place], [address] Carbon dioxide measurementOr dered By: Jesus Romero on 09-03-2024 CO2 [Moles/Vol] 26.0 mmol/L 21.0-32.0 [facility] Chest PA and Lateralon 09-03 Chest PA and Lateral [facility] Imaging Services [address] [place] [address] Chest PA and Lateral MR#: [id number] Acct: [id number] Name: JOVANY MUÑIZ Rep #: [id number] : 1965 M 58 From: Layne Suh MD PCP: Dr. Eduard Henley MD Status: REG ER Study: Chest PA and Lateral Date of Exam: 09/03/24 Exam# [id number] Ordering Dr: Jesus Romero DO -[id number] STUDY: X-RAY CHEST REASON FOR EXAM: [...] Eduard Henley MD; Dr. Jesus Romero DO Learning Technologist: Signed Normal [facility] Chloride measurementOrdered By: Jesus Romero on 09-03-2024 Chloride [Moles/Vol] 104 mmol/L 98-107 [facility] D-Dimer Quantitative (DVT/PE )on 09-03-2024 D-DIMER QUANT 0.44 FEU/ug/m Normal 0.27-0.49 [facility] Comment on above: Result Comment: NORM AL D-Dimer level (<0.50) indicates no DVT or PE. Performed By: #### L 300.8000 #### [facility] [address] [facility] [place], [address] D-dimer measurement for deep venous thrombosisOrdered By: Jesus Romero on 09-03-2024 D-Dimer Quantitative (PE/DVT) 0.44 FEU/ug/m 0.27-0.49 [facility] Comment on above: NORMAL D-Dimer level (<0.50) indicates no DVT or PE. Emergency Department Summary on 09-03-2024 Emergency Department Summary [facility] Medical Records Department [address] [place] [address] Emergency Department Summary 09/03/24 MR#: [id number] Acct: [id number] Name: JOVANY MUÑIZ Rep #: [id number] : 1965 58 From: Jesus Romero DO [...] strenuous. Patient states that he saw his leader writer the day after Gisela and the checkup went well. 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 Normal [facility] Eosinophil percentageOrdered By: Jesus Romero on 09-03-2024 Eosinophils/100 WBC (Bld) 3.3 % 0-5 [facility] Erythrocyte distribution wid th ratioOrdered By: Jesus Romero on 09-03-2024 Erythrocyte distribution width (RBC) [Ratio] 13.2 % 11.6-14.6 [facility] Erythrocyte distribution wid th standard deviationOrdered By: Jesus Romero on 09-03-2024 Erythrocyte distribution width (RBC) [Entitic vol] 47.3 fL High 35.1-43.9 [facility] Estimated glomerular filtrat ion rate (GFR) AmericanOrdered By: Jesus Romero on 09-03-2024 Estimated GFR (MDRD) Amer 73 mL/min >60 [facility] Comment on above: GFR Calc Estimation of creatinine liudmila aranceOrdered By: Jesus Romero on 09-03-2024 Estimated Creatinine Clearance Calc 73.11 ml/min [facility] Glomerular filtration rate ( GFR) estimationOrdered By: Jesus Romero on 09-03-2024 Estimated GFR (MDRD) Non-Af Amer 60 mL/min >60 [facility] Comment on above: Non- GFR Calc Glucose measurementOrdered B y: Jesus Romero on 09-03-2024 Glucose [Mass/Vol] 102 mg/dL 74-106 [facility] Comment on above: Fasting Glucose resu lt from 100 to 125 mg/dL suggests IMPAIRED HOMEOSTASIS per A.D.A. criteria. Hematocrit Auto (Bld) [Volum e fraction]Ordered By: Jesus Romero on 09-03-2024 Hematocrit (Bld) [Volume fraction] 39.8 % Low 40-54 [facility] Hemoglobin measurementOrdere d By: Jesus Romero on 09-03-2024 Hemoglobin (Bld) [Mass/Vol] 13.4 g/dL 13.0-16.5 [facility] Immature granulocytes/100 WB C Auto (Bld)Ordered By: Jesus Romero on 09-03-2024 Immature granulocytes/100 WBC (Bld) 0.500 % 0.0-0.9 [facility] Comment on above: IG% - Immature Granu locytes (promyelocytes, myelocytes and metamyelocytes) > 1% indicates that a LEFT SHIFT is Present. Influenza virus A and B and SARS-CoV-2 (COVID-19) and Respiratory syncytial virus RNAOrdered By: Jesus Romero on 09-03-2024 SARS-CoV-2 (COVID-19) RNA LINDSAY+probe Ql (Unsp spec) [facility] L501.4020on 09-03-2024 TROPONIN-I HS 6 pg/mL Normal 3.0-78.0 [facility] Comment on above: Order Comment: 2 Result Comment: Plea se Note: New Test Units and Gender Specific Reference Ranges. For more information see Policy Stat Procedure [place] High Sensitivity Troponin (TNIH) and attachments. Performed By: #### L 500.2500, L501.4021, L100.0100 #### [facility] [address] [place], [address] L501.5425on 09-03-2024 TROPONIN-I HS 5 pg/mL Normal 3.0-78.0 [facility] Comment on above: Order Comment: 1Y Result Comment: Plea se Note: New Test Units and Gender Specific Reference Ranges. For more information see Policy Stat Procedure [place] High Sensitivity Troponin (TNIH) and attachments. Performed By: #### L 501.5425, L501.5200, L100.0100, L503.6620, L500.2500, L501.9520 ####[facility] [address] [place], [address] Lymphocytes Auto (Unsp spec) [#/Vol]Ordered By: Jesus Romero on 09-03-2024 Lymphocytes (Bld) [#/Vol] 1.72 10*3/uL 0.83-4.51 [facility] Lymphocytes/100 WBC Auto (Un sp spec)Ordered By: Jesus Romero on 09-03-2024 Lymphocytes/100 WBC (Bld) 30.3 % 19-41 [facility] M100.678on 09-03-2024 M100.678 Pending SARS-CoV-2 (COVID 19) Negative INFLUENZA A Negative INFLUENZA B Negative RSV PCR Negative Normal [facility] Comment on above: Performed By: #### L 500.2500, L501.4021, L100.0100 #### [facility] [address] [place], [address] MCV (mean corpuscular volume ) determinationOrdered By: Jesus Romero on 09-03-2024 MCV (RBC) [Entitic vol] 98.0 fL High 80-94 [facility] Magnesiumon 09-03-2024 Magnesium [Mass/Vol] 2.4 mg/dL Normal 1.6-2.6 [facility] Comment on above: Order Comment: 1Y Result Comment: Slig ht Hemolysis, Result may be falsely increased. Performed By: #### L 501.5425, L501.5200, L100.0100, L503.6620, L500.2500, L501.9520 ####[facility] [address] [place], [address] Magnesium measurementOrdered By: Jesus Romero on 09-03-2024 Magnesium [Mass/Vol] 2.4 mg/dL 1.6-2.6 [facility] Comment on above: Slight Hemolysis, Re sult may be falsely increased. Mean corpuscular hemoglobin (MCH) determinationOrdered By: Jesus Romero on 09-03-2024 MCH (RBC) [Entitic mass] 33.0 pg High 27.0-32.0 [facility] Mean corpuscular hemoglobin concentration (MCHC) determinationOrdered By: Jesus Romero on 09-03-2024 MCHC (RBC) [Mass/Vol] 33.7 g/dL 32-36 [facility] Mean platelet volume determi nationOrdered By: Jesus Romero on 09-03-2024 Platelet mean volume (Bld) [Entitic vol] 10.0 fL 6.2-12.0 [facility] Monocyte percentageOrdered B y: Jesus Romero on 09-03-2024 Monocytes/100 WBC (Bld) 10.9 % High 0-10 [facility] Neutrophil percentageOrdered By: Jesus Romero on 09-03-2024 Neutrophils/100 WBC (Bld) 53.8 % 47-70 [facility] Nucleated red blood cell per centageOrdered By: Jesus Romero on 09-03-2024 Nucleated RBC/100 WBC (Bld) [Ratio] 0 % 0-5 [facility] Platelet countOrdered By: Imtiaz Romero on 09-03-2024 Platelets (Bld) [#/Vol] 236 10*3/uL 150-450 [facility] Potassium measurementOrdered By: Jesus Romero on 09-03-2024 Potassium [Moles/Vol] 3.8 mmol/L 3.5-5.1 [facility] Comment on above: Slight Hemolysis, Re sult may be falsely increased. RBC Auto (Bld) [#/Vol]Ordere d By: Jesus Romero on 09-03-2024 RBC (Bld) [#/Vol] 4.06 10*6/uL Low 4.6-6.2 [facility] Serum anion gap measurementO rdered By: Jesus Romero on 09-03-2024 Anion gap [Moles/Vol] 8 mmol/L 5-15 [facility] Serum or plasma calcium randa urement (mass/volume)Ordered By: Jesus Romero on 09-03-2024 Calcium [Mass/Vol] 9.3 mg/dL 8.5-10.1 [facility] Serum or plasma creatinine m easurement (mass/volume)Ordered By: Jesus Romero on 09-03-2024 Creatinine [Mass/Vol] 1.29 mg/dL 0.70-1.30 [facility] Comment on above: The validity of the calculated GFR & GFRAA in patients over 70 years has not been determined. Clinical correlation is essential. Serum or plasma urea nitroge n measurement (mass/volume)Ordered By: Jesus Romero on 09-03-2024 Urea nitrogen [Mass/Vol] 18 mg/dL 7-18 [facility] Sodium levelOrdered By: Amanda Romero on 09-03-2024 Sodium [Moles/Vol] 138 mmol/L 136-145 [facility] TSH QnOrdered By: Jesus hussein on 09-03-2024 Thyroid Stimulating Hormone (TSH) 2.110 uIU/mL 0.358-3.740 [facility] Thyroid Stim Hormone (TSH)on 09-03-2024 TSH 2.110 uIU/mL Normal 0.358-3.740 [facility] Comment on above: Order Comment: 1Y Performed By: #### L 501.5425, L501.5200, L100.0100, L503.6620, L500.2500, L501.9520 ####[facility] [address] [place], [place], [address] Troponin IOrdered By: Jesus Romero on 09-03-2024 Troponin I High Sensitivity 6 pg/mL 3.0-78.0 [facility] Comment on above: Please Note: New Joan t Units and Gender Specific Reference Ranges. For more information see Policy Stat Procedure [place] High Sensitivity Troponin (TNIH) and attachments. White blood cell (WBC) count Ordered By: Jesus Romero on 09-03-2024 WBC (Bld) [#/Vol] 5.7 10*3/uL 4.4-11.0 [facility] Cardiology Visit Reporton Cardiology Visit Report [facility] [address] [place] [address] OFFICE VISIT Date of Service: 08/06/24 MR#: [id number] Acct: [id number] Name: JOVANY MÑUIZ Rep #: [id number] : 1965 Provider: Dr. Jose Lockwood MD Age/Sex: 58/M Location: [facility] Status: Signed HPI HPI History of Present Illness Details: This is a 58-year-old white male who presents today for outpatient cardiovascular follow-up regarding a history of underlying CAD, PCI, hyperlipidemia, and hypertension. 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 [facility] Medical History Wears partial dentures High cholesterol Heartburn Gastric reflux History of diverticulitis Former smoker History of heart attack History of echocardiogram History of stress test Hypertension Cardiology follow-up encounter Sigmoid diverticulitis History of coronary artery disease Presence of stent in coronary artery (04/25/23) Essential hypertension HLD (hyperlipidemia) Old myocardial infarction 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 (04/25/23) Surgical [...] for Coding Level of Care Code Attention Front Attendant Comment Never seen/evaluated-sent to ER by front desk associate staff. Assessment and Plan Assessment and Plan Patient Instructions: Patient advised by front desk associate staff to proceed to ER for evaluation. No exam completed at this office. . 05/18/24 1422 Date Akua Vang NP-C Jacinda Signature: Date (if applicable) CC: Normal [facility] Basophil percentageOrdered B y: Carlita Velasquez on 09-10-2023 Bilirubin [Mass/Vol] 0.40 mg/dL 0.20-1.00 [facility] Comment on above: For patients on eltr ombopag therapy, use of Dimension [place] TBIL is not recommended. Chloride [Moles/Vol] 104 mmol/L 98-107 [facility] Glucose [Mass/Vol] 109 mg/dL 74-106 [facility] Comment on above: Fasting Glucose resu lt from 100 to 125 mg/dL suggests IMPAIRED HOMEOSTASIS per A.D.A. criteria. Hemoglobin (Bld) [Mass/Vol] 15.4 g/dL 13.0-16.5 [facility] Potassium [Moles/Vol] 4.6 mmol/L 3.5-5.1 [facility] Protein [Mass/Vol] 8.0 g/dL 6.4-8.2 [facility] Sodium [Moles/Vol] 133 mmol/L 136-145 [facility] WBC (Bld) [#/Vol] 5.9 10*3/uL 4.4-11.0 [facility] Determination of erythrocyte mean corpuscular volume (MCV)Ordered By: Carlita Statlexi on 09-10-2023 MCV (RBC) [Entitic vol] 97.1 fL 80-94 [facility] Erythrocyte distribution wid th ratioOrdered By: [facility] on 09-10-2023 Erythrocyte distribution width (RBC) [Ratio] 13.3 % 11.6-14.6 [facility] Erythrocyte distribution wid th standard deviationOrdered By: [facility] on 09-10-2023 Erythrocyte distribution width (RBC) [Entitic vol] 47.8 fL 35.1-43.9 [facility] Hematocrit Auto (Bld) [Volum e fraction]Ordered By: [facility] on 09-10-2023 Hematocrit (Bld) [Volume fraction] 46.5 % 40-54 [facility] - Chemistry and C hemistry - challengeOrdered By: [facility] on 09-10-2023 Albumin/Globulin [Mass ratio] 0.9 {ratio} 0.9-2.4 [facility] ALP [Catalytic activity/Vol] 63 U/L 45-117 [facility] ALT [Catalytic activity/Vol] 46 U/L 16-61 [facility] CO2 [Moles/Vol] 25.0 mmol/L 21.0-32.0 [facility] Cobalamin (Vitamin B12) [Mass/Vol] 438 pg/mL 211-911 [facility] Globulin (S) [Mass/Vol] 4.3 g/dL 2.2-4.2 [facility] Urea nitrogen/Creatinine [Mass ratio] 20.5 mg/mg 10-20 [facility] - Hematology and Cell countsOrdered By: Carlita Velasquez on 09-10-2023 MCH (RBC) [Entitic mass] 32.2 pg 27.0-32.0 [facility] MCHC (RBC) [Mass/Vol] 33.1 g/dL 32-36 [facility] Platelets (Bld) [#/Vol] 260 10*3/uL 150-450 [facility] No Panel InformationOrdered By: Carlita Velasquez on 09-10-2023 Estimated GFR (MDRD) Amer 107 mL/min >60 [facility] Comment on above: GFR Calc Estimated GFR (MDRD) Non-Af Amer 89 mL/min >60 [facility] Comment on above: Non- GFR Calc Platelet mean volume Codey-Ec ker (Bld) [Entitic vol]Ordered By: Carlita Velasquez on 09-10-2023 Platelet mean volume (Bld) [Entitic vol] 9.9 fL 6.2-12.0 [facility] RBC Auto (Bld) [#/Vol]Ordere d By: Carlita Velasquez on 09-10-2023 RBC (Bld) [#/Vol] 4.79 10*6/uL 4.6-6.2 [facility] Serum or plasma calcitriol m easurement (mass/volume)Ordered By: Carlita Velasquez on 09-10-2023 1,25-dihydroxyvitamin D3 [Mass/Vol] 33.6 pg/mL 24.8-81.5 [facility] Comment on above: Performed at: [address] [id number] Director: Brandie Dial MD, Phone: [phone] Serum or plasma calcium randa urement (mass/volume)Ordered By: Carlita Velasquez on 09-10-2023 Calcium [Mass/Vol] 9.3 mg/dL 8.5-10.1 [facility] Serum or plasma creatinine m easurement (mass/volume)Ordered By: Carlita Velasquez on 09-10-2023 Creatinine [Mass/Vol] 0.93 mg/dL 0.70-1.30 [facility] Comment on above: The validity of the calculated GFR & GFRAA in patients over 70 years has not been determined. Clinical correlation is essential. Serum or plasma urea nitroge n measurement (mass/volume)Ordered By: Carlita Velasquez on 09-10-2023 Urea nitrogen [Mass/Vol] 19 mg/dL 7-18 [facility] Thin prep Papanicolaou smear with manual screeningOrdered By: Carlita Velasquez on 09-10-2023 Thin prep Papanicolaou smear with manual screening 3.7 g/dL 3.2-5.0 [facility] Thin prep Papanicolaou smear with manual screening 32 U/L 15-37 [facility] Thin prep Papanicolaou smear with manual screening 4 5-15 [facility] Whole blood hemoglobin A1c/t otal hemoglobin ratio (mass fraction)Ordered By: Carlita Velasquez on 09-10-2023 HbA1c (Bld) [Mass fraction] 5.5 % 3.8-5.6 [facility] Comment on above: Normal < 5.7 % Predi abetic 5.7 - 6.4 % Diabetic >or= 6.5 % Please note range changes. Basophil percentageOrdered B y: Mitchell Dubois on 07-07-2023 Bilirubin [Mass/Vol] 0.50 mg/dL 0.20-1.00 [facility] Comment on above: For patients on eltr ombopag therapy, use of Dimension [place] TBIL is not recommended. Cholesterol [Mass/Vol] 152 mg/dL <200 [facility] Comment on above: <200 mg/dL Desirable 200-240 mg/dL Borderline >240 mg/dL High Risk Protein [Mass/Vol] 8.2 g/dL 6.4-8.2 [facility] Triglyceride [Mass/Vol] 140 mg/dL <199 [facility] Comment on above: The drugs N-Acetylcy steine and Metamizole may falsely depress this assay.Serum Triglycerides Reference Interval Normal <150 mg/dL Borderline high 150 - 199 mg/dL High 200 - 499 mg/dL Very High > or = 500 mg/dL Direct bilirubinOrdered By: Mitchell Dubois on 07-07-2023 Bilirubin.direct [Mass/Vol] 0.17 mg/dL 0.00-0.30 [facility] - Chemistry and C hemistry - challengeOrdered By: Mitchell Dubois on 07-07-2023 ALP [Catalytic activity/Vol] 72 U/L 45-117 [facility] ALT [Catalytic activity/Vol] 52 U/L 16-61 [facility] Globulin (S) [Mass/Vol] 4.6 g/dL 2.2-4.2 [facility] Serum or plasma albumin randa urement (mass/volume)Ordered By: Mitchell Dubois on 07-07-2023 Albumin [Mass/Vol] 3.6 g/dL 3.2-5.0 [facility] Serum or plasma cholesterol in HDL measurement (mass/volume)Ordered By: Mitchell Dubois on 07-07-2023 Cholesterol in HDL [Mass/Vol] 65 mg/dL >40 [facility] Comment on above: The drugs N-Acetylcy steine and Metamizole may falsely depress this assay. Reference Range HDL <40 mg/dL Low HDL Cholesterol HDL >or= 60 mg/dL High HDL Cholesterol Serum or plasma cholesterol in VLDL measurement (mass/volume)Ordered By: Mitchell Dubois on 07-07-2023 Cholesterol in VLDL [Mass/Vol] 28 mg/dL 5-40 [facility] Serum or plasma low density lipoprotein (LDL) cholesterol measurement (mass/volume)Ordered By: Mitchell Dubois on 07-07-2023 Cholesterol in LDL [Mass/Vol] 59 mg/dL 0-130 [facility] Thin prep Papanicolaou smear with manual screeningOrdered By: Mitchell Dubois on 07-07-2023 Thin prep Papanicolaou smear with manual screening 31 U/L 15-37 [facility] Absolute lymphocyte countOrd ered By: Meliza Ramírez on 06-15-2023 Lymphocytes Auto (Unsp spec) [#/Vol] 0.73 10*3/uL 0.83-4.51 [facility] Basophil percentageOrdered B y: Meliza Ramírez on 06-15-2023 Basophils/100 WBC (Bld) 0.3 % 0-1 [facility] Bilirubin [Mass/Vol] 0.50 mg/dL 0.20-1.00 [facility] Comment on above: For patients on eltr ombopag therapy, use of Dimension [place] TBIL is not recommended. Chloride [Moles/Vol] 109 mmol/L 98-107 [facility] Eosinophils/100 WBC (Bld) 2.6 % 0-5 [facility] Glucose [Mass/Vol] 93 mg/dL 74-106 [facility] Neutrophils (Bld) [#/Vol] 5.7 10*3/uL 2.0-7.7 [facility] Neutrophils/100 WBC (Bld) 81.6 % 47-70 [facility] Potassium [Moles/Vol] 3.6 mmol/L 3.5-5.1 [facility] Protein [Mass/Vol] 6.8 g/dL 6.4-8.2 [facility] Sodium [Moles/Vol] 138 mmol/L 136-145 [facility] WBC (Bld) [#/Vol] 7.0 10*3/uL 4.4-11.0 [facility] Blood erythrocytes count (nu mber/volume)Ordered By: Meliza Ramírez on 06-15-2023 RBC (Bld) [#/Vol] 3.60 10*6/uL 4.6-6.2 [facility] Blood hemoglobin measurement (mass/volume)Ordered By: Meliza Ramírez on 06-15-2023 Hemoglobin (Bld) [Mass/Vol] 11.7 g/dL 13.0-16.5 [facility] Blood lymphocytes/100 leukoc ytesOrdered By: Meliza Ramírez on 06-15-2023 Lymphocytes/100 WBC (Bld) 10.5 % 19-41 [facility] Blood monocytes/100 leukocyt esOrdered By: Meliza Ramírez on 06-15-2023 Monocytes/100 WBC (Bld) 4.6 % 0-10 [facility] Blood platelet mean volumeOr dered By: Meliza Ramírez on 06-15-2023 Platelet mean volume (Bld) [Entitic vol] 9.9 fL 6.2-12.0 [facility] Determination of erythrocyte mean corpuscular volume (MCV)Ordered By: Meliza Ramírez on 06-15-2023 MCV (RBC) [Entitic vol] 101.4 fL 80-94 [facility] Hematocrit Auto (Bld) [Volum e fraction]Ordered By: Meliza Ramírez on 06-15-2023 Hematocrit (Bld) [Volume fraction] 36.5 % 40-54 [facility] - Chemistry and C hemistry - challengeOrdered By: Meliza Ramírez on 06-15-2023 ALP [Catalytic activity/Vol] 61 U/L 45-117 [facility] ALT [Catalytic activity/Vol] 22 U/L 16-61 [facility] CO2 [Moles/Vol] 22.0 mmol/L 21.0-32.0 [facility] Globulin (S) [Mass/Vol] 4.3 g/dL 2.2-4.2 [facility] Urea nitrogen/Creatinine [Mass ratio] 11.1 mg/mg 10-20 [facility] - Hematology and Cell countsOrdered By: Meliza Ramírez on 06-15-2023 Erythrocyte distribution width (RBC) [Entitic vol] 50.3 fL 35.1-43.9 [facility] Erythrocyte distribution width (RBC) [Ratio] 13.4 % 11.6-14.6 [facility] Immature granulocytes/100 WBC (Bld) 0.400 % 0.0-0.9 [facility] Comment on above: IG% - Immature Granu locytes (promyelocytes, myelocytes and metamyelocytes) > 1% indicates that a LEFT SHIFT is Present. MCH (RBC) [Entitic mass] 32.5 pg 27.0-32.0 [facility] Nucleated RBC/100 WBC (Bld) [Ratio] 0 % 0-5 [facility] MCHC Auto (RBC) [Mass/Vol]Or dered By: Meliza Ramírez on 06-15-2023 MCHC (RBC) [Mass/Vol] 32.1 g/dL 32-36 [facility] No Panel InformationOrdered By: Meliza Ramírez on 06-15-2023 Estimated Creatinine Clearance Calc 107.78 ml/min [facility] Estimated GFR (MDRD) Amer 124 mL/min >60 [facility] Comment on above: GFR Calc Estimated GFR (MDRD) Non-Af Amer 103 mL/min >60 [facility] Comment on above: Non- GFR Calc Platelets bldOrdered By: Rubén Ramírez on 06-15-2023 Platelets (Bld) [#/Vol] 205 10*3/uL 150-450 [facility] Serum or plasma albumin randa urement (mass/volume)Ordered By: Meliza Ramírez on 06-15-2023 Albumin [Mass/Vol] 2.5 g/dL 3.2-5.0 [facility] Serum or plasma albumin/glob ulin mass ratioOrdered By: Meliza Ramírez on 06-15-2023 Albumin/Globulin [Mass ratio] 0.6 {ratio} 0.9-2.4 [facility] Serum or plasma calcium randa urement (mass/volume)Ordered By: Meliza Ramírez on 06-15-2023 Calcium [Mass/Vol] 7.9 mg/dL 8.5-10.1 [facility] Serum or plasma creatinine m easurement (mass/volume)Ordered By: Meliza Ramírez on 06-15-2023 Creatinine [Mass/Vol] 0.81 mg/dL 0.70-1.30 [facility] Comment on above: The validity of the calculated GFR & GFRAA in patients over 70 years has not been determined. Clinical correlation is essential. Serum or plasma urea nitroge n measurement (mass/volume)Ordered By: Meliza Ramírez on 06-15-2023 Urea nitrogen [Mass/Vol] 9 mg/dL 7-18 [facility] Thin prep Papanicolaou smear with manual screeningOrdered By: Meliza Ramírez on 06-15-2023 Thin prep Papanicolaou smear with manual screening 12 U/L 15-37 [facility] Thin prep Papanicolaou smear with manual screening 7 5-15 [facility] Absolute lymphocyte countOrd ered By: Donta Swenson on 06-14-2023 Lymphocytes Auto (Unsp spec) [#/Vol] 0.90 10*3/uL 0.83-4.51 [facility] Basophil percentageOrdered B y: Donta Swenson on 06-14-2023 Basophil percentage 0 SEEN /hpf 0-5 [facility] Basophils/100 WBC (Bld) 0.3 % 0-1 [facility] Bilirubin [Mass/Vol] 0.60 mg/dL 0.20-1.00 [facility] Comment on above: For patients on eltr ombopag therapy, use of Dimension [place] TBIL is not recommended. Chloride [Moles/Vol] 108 mmol/L 98-107 [facility] Eosinophils/100 WBC (Bld) 2.5 % 0-5 [facility] Glucose [Mass/Vol] 119 mg/dL 74-106 [facility] Comment on above: Fasting Glucose resu lt from 100 to 125 mg/dL suggests IMPAIRED HOMEOSTASIS per A.D.A. criteria. Neutrophils (Bld) [#/Vol] 7.4 10*3/uL 2.0-7.7 [facility] Neutrophils/100 WBC (Bld) 83.8 % 47-70 [facility] Potassium [Moles/Vol] 4.4 mmol/L 3.5-5.1 [facility] Protein [Mass/Vol] 8.0 g/dL 6.4-8.2 [facility] Sodium [Moles/Vol] 139 mmol/L 136-145 [facility] WBC (Bld) [#/Vol] 8.9 10*3/uL 4.4-11.0 [facility] Bilirubin Test strip Ql (U)O rdered By: Donta Swenson on 06-14-2023 Bilirubin Ql (U) Negative Negative [facility] Blood erythrocytes count (nu mber/volume)Ordered By: Donta Swenson on 06-14-2023 RBC (Bld) [#/Vol] 4.32 10*6/uL 4.6-6.2 [facility] Blood hemoglobin measurement (mass/volume)Ordered By: Donta Swenson on 06-14-2023 Hemoglobin (Bld) [Mass/Vol] 14.1 g/dL 13.0-16.5 [facility] Blood lymphocytes/100 leukoc ytesOrdered By: Donta Swenson on 06-14-2023 Lymphocytes/100 WBC (Bld) 10.2 % 19-41 [facility] Blood monocytes/100 leukocyt esOrdered By: Donta Swenson on 06-14-2023 Monocytes/100 WBC (Bld) 2.7 % 0-10 [facility] Blood platelet mean volumeOr dered By: Donta Swenson on 06-14-2023 Platelet mean volume (Bld) [Entitic vol] 9.4 fL 6.2-12.0 [facility] Determination of erythrocyte mean corpuscular volume (MCV)Ordered By: Donta Swensno on 06-14-2023 MCV (RBC) [Entitic vol] 100.2 fL 80-94 [facility] Hematocrit Auto (Bld) [Volum e fraction]Ordered By: Donta Swenson on 06-14-2023 Hematocrit (Bld) [Volume fraction] 43.3 % 40-54 [facility] Ketones Test strip Ql (U)Ord ered By: Donta Swenson on 06-14-2023 Ketones Ql (U) Negative Negative [facility] - Chemistry and C hemistry - challengeOrdered By: Donta Swenson on 06-14-2023 ALP [Catalytic activity/Vol] 72 U/L 45-117 [facility] ALT [Catalytic activity/Vol] 30 U/L 16-61 [facility] CO2 [Moles/Vol] 27.0 mmol/L 21.0-32.0 [facility] Globulin (S) [Mass/Vol] 4.8 g/dL 2.2-4.2 [facility] Lipase [Catalytic activity/Vol] 235 U/L 13-75 [facility] Comment on above: Please note:LIPASE r evised reference range effective 22. New Lipase methodology. Expected to produce lower values than the previous assay method. NEW Reference Range: 13 - 75 U/L Urea nitrogen/Creatinine [Mass ratio] 11.9 mg/mg 10-20 [facility] - Hematology and Cell countsOrdered By: Donta Swenson on 06-14-2023 Erythrocyte distribution width (RBC) [Entitic vol] 48.7 fL 35.1-43.9 [facility] Erythrocyte distribution width (RBC) [Ratio] 13.1 % 11.6-14.6 [facility] Immature granulocytes/100 WBC (Bld) 0.500 % 0.0-0.9 [facility] Comment on above: IG% - Immature Granu locytes (promyelocytes, myelocytes and metamyelocytes) > 1% indicates that a LEFT SHIFT is Present. MCH (RBC) [Entitic mass] 32.6 pg 27.0-32.0 [facility] Nucleated RBC/100 WBC (Bld) [Ratio] 0 % 0-5 [facility] MCHC Auto (RBC) [Mass/Vol]Or dered By: Donta Swenson on 06-14-2023 MCHC (RBC) [Mass/Vol] 32.6 g/dL 32-36 [facility] Mucus LM Ql (Urine sed)Order ed By: Donta Swenson on 06-14-2023 Mucus Ql (Urine sed) 0 SEEN /hpf [facility] Nitrite Test strip Ql (U)Ord ered By: Donta Swenson on 06-14-2023 Nitrite Ql (U) Negative Negative [facility] No Panel InformationOrdered By: Donta Swenson on 06-14-2023 Estimated Creatinine Clearance Calc 80.09 ml/min [facility] Estimated GFR (MDRD) Amer 89 mL/min >60 [facility] Comment on above: GFR Calc Estimated GFR (MDRD) Non-Af Amer 73 mL/min >60 [facility] Comment on above: Non- GFR Calc Platelets bldOrdered By: Goldie Swenson on 06-14-2023 Platelets (Bld) [#/Vol] 251 10*3/uL 150-450 [facility] Protein Test strip Ql (U)Ord ered By: Donta Swenson on 06-14-2023 Protein Ql (U) Negative Negative [facility] Serum or plasma albumin randa urement (mass/volume)Ordered By: Donta Swenson on 06-14-2023 Albumin [Mass/Vol] 3.2 g/dL 3.2-5.0 [facility] Serum or plasma albumin/glob ulin mass ratioOrdered By: Donta Swenson on 06-14-2023 Albumin/Globulin [Mass ratio] 0.7 {ratio} 0.9-2.4 [facility] Serum or plasma calcium randa urement (mass/volume)Ordered By: Donta Swenson on 06-14-2023 Calcium [Mass/Vol] 9.0 mg/dL 8.5-10.1 [facility] Serum or plasma creatinine m easurement (mass/volume)Ordered By: Donta Swenson on 06-14-2023 Creatinine [Mass/Vol] 1.09 mg/dL 0.70-1.30 [facility] Comment on above: The validity of the calculated GFR & GFRAA in patients over 70 years has not been determined. Clinical correlation is essential. Serum or plasma urea nitroge n measurement (mass/volume)Ordered By: Donta Swenson on 06-14-2023 Urea nitrogen [Mass/Vol] 13 mg/dL 7-18 [facility] Squamous epithelial cells de tection in urine sediment by light microscopyOrdered By: Donta Swenson on 06-14-2023 Epithelial cells.squamous LM Ql (Urine sed) 0 SEEN /hpf 0-5 [facility] Thin prep Papanicolaou smear with manual screeningOrdered By: Donta Swenson on 06-14-2023 Thin prep Papanicolaou smear with manual screening 18 U/L 15-37 [facility] Thin prep Papanicolaou smear with manual screening 4 5-15 [facility] Urine blood detectionOrdered By: Dotna Swenson on 06-14-2023 RBC Ql (U) Negative Negative [facility] RBC Ql (U) 0 SEEN /hpf 0-5 [facility] Urine clarityOrdered By: Goldie Swenson on 06-14-2023 Clarity (U) Clear Clear [facility] Urine color determinationOrd ered By: Donta Swenson on 06-14-2023 Color (U) Yellow Yellow [facility] Urine glucose detectionOrder ed By: Donta Swenson on 06-14-2023 Glucose Ql (U) Normal mg/dl Normal [facility] Urine leukocyte esterase det ection by dipstickOrdered By: Donta Swenson on 06-14-2023 Leukocyte esterase Test strip Ql (U) Negative Negative [facility] Urine pHOrdered By: Donta dickerson on 06-14-2023 pH (U) 7.0 [pH] 5.0 - 8.0 [facility] Urine sediment bacteria coun t by microscopy (number/high power field)Ordered By: Donta Swenson on 06-14-2023 Bacteria LM.HPF (Urine sed) [#/Area] 0 /[HPF] None Seen [facility] Urine specific gravity measu rementOrdered By: Donta Swenson on 06-14-2023 Specific gravity (U) [Rel density] 1.010 1.002-1.030 [facility] Urobilinogen Auto test strip Ql (U)Ordered By: Donta Swenson on 06-14-2023 Urobilinogen Ql (U) Normal mg/dl Normal [facility] Basophil percentageOrdered B y: Sergei Henley on 06-02-2023 Bilirubin [Mass/Vol] 0.30 mg/dL 0.20-1.00 [facility] Comment on above: For patients on eltr ombopag therapy, use of Dimension [place] TBIL is not recommended. Chloride [Moles/Vol] 109 mmol/L 98-107 [facility] Glucose [Mass/Vol] 103 mg/dL 74-106 [facility] Comment on above: Fasting Glucose resu lt from 100 to 125 mg/dL suggests IMPAIRED HOMEOSTASIS per A.D.A. criteria. Potassium [Moles/Vol] 4.6 mmol/L 3.5-5.1 [facility] Protein [Mass/Vol] 7.6 g/dL 6.4-8.2 [facility] Sodium [Moles/Vol] 141 mmol/L 136-145 [facility] WBC (Bld) [#/Vol] 6.3 10*3/uL 4.4-11.0 [facility] Blood erythrocytes count (nu mber/volume)Ordered By: Sergei Henley on 06-02-2023 RBC (Bld) [#/Vol] 4.21 10*6/uL 4.6-6.2 [facility] Blood hemoglobin measurement (mass/volume)Ordered By: Sergei Henley on 06-02-2023 Hemoglobin (Bld) [Mass/Vol] 13.7 g/dL 13.0-16.5 [facility] Blood platelet mean volumeOr dered By: Sergei Henley on 06-02-2023 Platelet mean volume (Bld) [Entitic vol] 9.8 fL 6.2-12.0 [facility] Determination of erythrocyte mean corpuscular volume (MCV)Ordered By: Sergei Henley on 06-02-2023 MCV (RBC) [Entitic vol] 100.7 fL 80-94 [facility] Erythrocyte sedimentation ra teOrdered By: Sergei Henley on 06-02-2023 ESR (Bld) [Velocity] 8 mm/h 0-20 [facility] Hematocrit Auto (Bld) [Volum e fraction]Ordered By: Sergei Henley on 06-02-2023 Hematocrit (Bld) [Volume fraction] 42.4 % 40-54 [facility] Iron measurement (mass/mass) Ordered By: Sergei Henley on 06-02-2023 Iron (Unsp spec) [Mass/Mass] 101 ug/dL 65-175 [facility] Laboratory - Chemistry and C hemistry - challengeOrdered By: Sergei Henley on 06-02-2023 ALP [Catalytic activity/Vol] 72 U/L 45-117 [facility] ALT [Catalytic activity/Vol] 35 U/L 16-61 [facility] CO2 [Moles/Vol] 28.0 mmol/L 21.0-32.0 [facility] Cobalamin (Vitamin B12) [Mass/Vol] 309 pg/mL 211-911 [facility] Globulin (S) [Mass/Vol] 4.2 g/dL 2.2-4.2 [facility] Magnesium [Mass/Vol] 2.6 mg/dL 1.6-2.6 [facility] Urea nitrogen/Creatinine [Mass ratio] 14.4 mg/mg 10-20 [facility] Laboratory - Hematology and Cell countsOrdered By: Sergei Henley on 06-02-2023 Erythrocyte distribution width (RBC) [Entitic vol] 47.6 fL 35.1-43.9 [facility] Erythrocyte distribution width (RBC) [Ratio] 12.8 % 11.6-14.6 [facility] MCH (RBC) [Entitic mass] 32.5 pg 27.0-32.0 [facility] MCHC Auto (RBC) [Mass/Vol]Or dered By: Sergei Henley on 06-02-2023 MCHC (RBC) [Mass/Vol] 32.3 g/dL 32-36 [facility] No Panel InformationOrdered By: Sergei Henley on 06-02-2023 Estimated GFR (MDRD) Amer 101 mL/min >60 [facility] Comment on above: GFR Calc Estimated GFR (MDRD) Non-Af Amer 84 mL/min >60 [facility] Comment on above: Non- GFR Calc Thyroid Stimulating Hormone (TSH) 1.26 uIU/mL 0.358-3.74 [facility] Vitamin D 25-Hydroxy 34.5 ng/mL [facility] Comment on above: Vitamin D 25(OH) Sta tus Range Deficiency <20 ng/mL (50nmol/L) Insufficiency 20 - 30 ng/mL (50 - 75 nmol/L) Sufficiency 30 - 100 ng/mL (75 - 250 nmol/L) Toxicity >100 ng/mL (>250 nmol/L) Platelets bldOrdered By: Chr istophe Kale on 06-02-2023 Platelets (Bld) [#/Vol] 261 10*3/uL 150-450 [facility] Serum or plasma albumin randa urement (mass/volume)Ordered By: Sergei Henley on 06-02-2023 Albumin [Mass/Vol] 3.4 g/dL 3.2-5.0 [facility] Serum or plasma albumin/glob ulin mass ratioOrdered By: Sergei Henley on 06-02-2023 Albumin/Globulin [Mass ratio] 0.8 {ratio} 0.9-2.4 [facility] Serum or plasma calcium randa urement (mass/volume)Ordered By: Sergei Henley on 06-02-2023 Calcium [Mass/Vol] 8.7 mg/dL 8.5-10.1 [facility] Serum or plasma creatinine m easurement (mass/volume)Ordered By: Sergei Henley on 06-02-2023 Creatinine [Mass/Vol] 0.98 mg/dL 0.70-1.30 [facility] Comment on above: The validity of the calculated GFR & GFRAA in patients over 70 years has not been determined. Clinical correlation is essential. Serum or plasma ferritin seema surement (mass/volume)Ordered By: Sergei Henley on 06-02-2023 Ferritin [Mass/Vol] 285 ng/mL 26-388 [facility] Serum or plasma urea nitroge n measurement (mass/volume)Ordered By: Sergei Henley on 06-02-2023 Urea nitrogen [Mass/Vol] 14 mg/dL 7-18 [facility] Thin prep Papanicolaou smear with manual screeningOrdered By: Sergei Henley on 06-02-2023 Thin prep Papanicolaou smear with manual screening 24 U/L 15-37 [facility] Thin prep Papanicolaou smear with manual screening 4 5- [facility] Basophil percentageOrdered B y: Eileen Ray on 04-25-2023 Bilirubin [Mass/Vol] 0.40 mg/dL 0.20-1.00 [facility] Comment on above: For patients on eltr ombopag therapy, use of Dimension [place] TBIL is not recommended. Chloride [Moles/Vol] 109 mmol/L 98-107 [facility] Glucose [Mass/Vol] 104 mg/dL 74-106 [facility] Comment on above: Fasting Glucose resu lt from 100 to 125 mg/dL suggests IMPAIRED HOMEOSTASIS per A.D.A. criteria. Potassium [Moles/Vol] 3.9 mmol/L 3.5-5.1 [facility] Protein [Mass/Vol] 7.0 g/dL 6.4-8.2 [facility] Sodium [Moles/Vol] 139 mmol/L 136-145 [facility] WBC (Bld) [#/Vol] 4.7 10*3/uL 4.4-11.0 [facility] Blood erythrocytes count (nu mber/volume)Ordered By: Eileen Ray on 04-25-2023 RBC (Bld) [#/Vol] 4.14 10*6/uL 4.6-6.2 [facility] Blood hemoglobin measurement (mass/volume)Ordered By: Eileen Ray on 04-25-2023 Hemoglobin (Bld) [Mass/Vol] 13.9 g/dL 13.0-16.5 [facility] Blood platelet mean volumeOr dered By: Eileen Ray on 04-25-2023 Platelet mean volume (Bld) [Entitic vol] 9.5 fL 6.2-12.0 [facility] Determination of erythrocyte mean corpuscular volume (MCV)Ordered By: Eileen Ray on 04-25-2023 MCV (RBC) [Entitic vol] 99.8 fL 80-94 [facility] Hematocrit Auto (Bld) [Volum e fraction]Ordered By: Eileen Ray on 04-25-2023 Hematocrit (Bld) [Volume fraction] 41.3 % 40-54 [facility] Laboratory - Chemistry and C hemistry - challengeOrdered By: Eileen Ray on 04-25-2023 ALP [Catalytic activity/Vol] 61 U/L 45-117 [facility] ALT [Catalytic activity/Vol] 50 U/L 16-61 [facility] CO2 [Moles/Vol] 27.0 mmol/L 21.0-32.0 [facility] Globulin (S) [Mass/Vol] 3.9 g/dL 2.2-4.2 [facility] Urea nitrogen/Creatinine [Mass ratio] 10.2 mg/mg 10-20 [facility] Laboratory - Hematology and Cell countsOrdered By: Eileen Ray on 04-25-2023 Erythrocyte distribution width (RBC) [Entitic vol] 47.3 fL 35.1-43.9 [facility] Erythrocyte distribution width (RBC) [Ratio] 12.9 % 11.6-14.6 [facility] MCH (RBC) [Entitic mass] 33.6 pg 27.0-32.0 [facility] MCHC Auto (RBC) [Mass/Vol]Or dered By: Eileen Ray on 04-25-2023 MCHC (RBC) [Mass/Vol] 33.7 g/dL 32-36 [facility] No Panel InformationOrdered By: Eileen Ray on 04-25-2023 Estimated Creatinine Clearance Calc 89.08 ml/min [facility] Estimated GFR (MDRD) Amer 100 mL/min >60 [facility] Comment on above: GFR Calc Estimated GFR (MDRD) Non-Af Amer 83 mL/min >60 [facility] Comment on above: Non- GFR Calc Platelets bldOrdered By: Nuno Ray on 04-25-2023 Platelets (Bld) [#/Vol] 185 10*3/uL 150-450 [facility] Serum or plasma albumin randa urement (mass/volume)Ordered By: Eileen Ray on 04-25-2023 Albumin [Mass/Vol] 3.1 g/dL 3.2-5.0 [facility] Serum or plasma albumin/glob ulin mass ratioOrdered By: Eileen Ray on 04-25-2023 Albumin/Globulin [Mass ratio] 0.8 {ratio} 0.9-2.4 [facility] Serum or plasma calcium randa urement (mass/volume)Ordered By: Eileen Ray on 04-25-2023 Calcium [Mass/Vol] 8.6 mg/dL 8.5-10.1 [facility] Serum or plasma creatinine m easurement (mass/volume)Ordered By: Eileen Ray on 04-25-2023 Creatinine [Mass/Vol] 0.98 mg/dL 0.70-1.30 [facility] Comment on above: The validity of the calculated GFR & GFRAA in patients over 70 years has not been determined. Clinical correlation is essential. Serum or plasma urea nitroge n measurement (mass/volume)Ordered By: Eileen Ray on 04-25-2023 Urea nitrogen [Mass/Vol] 10 mg/dL 7-18 [facility] Thin prep Papanicolaou smear with manual screeningOrdered By: Eileen Ray on 04-25-2023 Thin prep Papanicolaou smear with manual screening 73 U/L 15-37 [facility] Thin prep Papanicolaou smear with manual screening 3 5-15 [facility] Whole blood hemoglobin A1c/t otal hemoglobin ratio (mass fraction)Ordered By: Ar Torres on 04-25-2023 HbA1c (Bld) [Mass fraction] 5.6 % 3.8-5.6 [facility] Comment on above: Normal < 5.7 % Predi abetic 5.7 - 6.4 % Diabetic >or= 6.5 % Please note range changes. Absolute lymphocyte countOrd ered By: Ar Torres on 04-24-2023 Lymphocytes Auto (Unsp spec) [#/Vol] 1.02 10*3/uL 0.83-4.51 [facility] Basophil percentageOrdered B y: Ar Torres on 04-24-2023 Basophils/100 WBC (Bld) 0.8 % 0-1 [facility] Cholesterol [Mass/Vol] 210 mg/dL <200 [facility] Comment on above: <200 mg/dL Desirable 200-240 mg/dL Borderline >240 mg/dL High Risk Eosinophils/100 WBC (Bld) 4.3 % 0-5 [facility] Neutrophils (Bld) [#/Vol] 3.1 10*3/uL 2.0-7.7 [facility] Neutrophils/100 WBC (Bld) 64.2 % 47-70 [facility] Triglyceride [Mass/Vol] 258 mg/dL <199 [facility] Comment on above: The drugs N-Acetylcy steine and Metamizole may falsely depress this assay.Serum Triglycerides Reference Interval Normal <150 mg/dL Borderline high 150 - 199 mg/dL High 200 - 499 mg/dL Very High > or = 500 mg/dL Blood lymphocytes/100 leukoc ytesOrdered By: Ar Torres on 04-24-2023 Lymphocytes/100 WBC (Bld) 20.9 % 19-41 [facility] Blood monocytes/100 leukocyt esOrdered By: Ar Torres on 04-24-2023 Monocytes/100 WBC (Bld) 9.2 % 0-10 [facility] INR in Blood by Coagulation assayOrdered By: Ar Torres on 04-24-2023 INR Coag (Bld) [Relative time] 1.0 {INR} [facility] Laboratory - CoagulationOrde red By: Ar Torres on 04-24-2023 aPTT Coag (Bld) [Time] 22.7 s 24.1-36.2 [facility] PT Coag (PPP) [Time] 12.8 s 11.7-14.9 [facility] Laboratory - Hematology and Cell countsOrdered By: Ar Torres on 04-24-2023 Immature granulocytes/100 WBC (Bld) 0.600 % 0.0-0.9 [facility] Comment on above: IG% - Immature Granu locytes (promyelocytes, myelocytes and metamyelocytes) > 1% indicates that a LEFT SHIFT is Present. Nucleated RBC/100 WBC (Bld) [Ratio] 0 % 0-5 [facility] No Panel InformationOrdered By: Rommel Youssef on 04-24-2023 Activated Clotting Time 197 sec 74-137 [facility] No Panel InformationOrdered By: Ar Torres on 04-24-2023 Troponin I High Sensitivity 79631 pg/mL 3.0-78.0 [facility] Comment on above: Critical Result(s) C alled at: 08:06:06 04/24/2023 by: Kendal Mcqueen. Results read back by same. Please Note: New Test Units and Gender Specific Reference Ranges. For more information see Policy Stat Procedure [place] High Sensitivity Troponin (TNIH) and attachments. Serum or plasma cholesterol in HDL measurement (mass/volume)Ordered By: Ar Torres on 04-24-2023 Cholesterol in HDL [Mass/Vol] 71 mg/dL >40 [facility] Comment on above: The drugs N-Acetylcy steine and Metamizole may falsely depress this assay. Reference Range HDL <40 mg/dL Low HDL Cholesterol HDL >or= 60 mg/dL High HDL Cholesterol Serum or plasma cholesterol in VLDL measurement (mass/volume)Ordered By: Ar Torres on 04-24-2023 Cholesterol in VLDL [Mass/Vol] 52 mg/dL 5-40 [facility] Serum or plasma low density lipoprotein (LDL) cholesterol measurement (mass/volume)Ordered By: Ar Torres on 04-24-2023 Cholesterol in LDL [Mass/Vol] 87 mg/dL 0-130 [facility] Absolute lymphocyte countOrd ered By: Perez Dave on 04-23-2023 Lymphocytes Auto (Unsp spec) [#/Vol] 1.69 10*3/uL 0.83-4.51 [facility] Basophil percentageOrdered B y: Perez Dave on 04-23-2023 Basophils/100 WBC (Bld) 1.1 % 0-1 [facility] Chloride [Moles/Vol] 108 mmol/L 98-107 [facility] Eosinophils/100 WBC (Bld) 6.3 % 0-5 [facility] Glucose [Mass/Vol] 104 mg/dL 74-106 [facility] Comment on above: Fasting Glucose resu lt from 100 to 125 mg/dL suggests IMPAIRED HOMEOSTASIS per A.D.A. criteria. Neutrophils (Bld) [#/Vol] 2.5 10*3/uL 2.0-7.7 [facility] Neutrophils/100 WBC (Bld) 48.0 % 47-70 [facility] Potassium [Moles/Vol] 3.4 mmol/L 3.5-5.1 [facility] Sodium [Moles/Vol] 141 mmol/L 136-145 [facility] WBC (Bld) [#/Vol] 5.3 10*3/uL 4.4-11.0 [facility] Blood erythrocytes count (nu mber/volume)Ordered By: Perez Dave on 04-23-2023 RBC (Bld) [#/Vol] 4.28 10*6/uL 4.6-6.2 [facility] Blood hemoglobin measurement (mass/volume)Ordered By: Perez Dave on 04-23-2023 Hemoglobin (Bld) [Mass/Vol] 14.0 g/dL 13.0-16.5 [facility] Blood lymphocytes/100 leukoc ytesOrdered By: Perez Dave on 04-23-2023 Lymphocytes/100 WBC (Bld) 32.1 % 19-41 [facility] Blood monocytes/100 leukocyt esOrdered By: Perez Dave on 04-23-2023 Monocytes/100 WBC (Bld) 12.1 % 0-10 [facility] Blood platelet mean volumeOr dered By: Perez Dave on 04-23-2023 Platelet mean volume (Bld) [Entitic vol] 9.5 fL 6.2-12.0 [facility] Determination of erythrocyte mean corpuscular volume (MCV)Ordered By: Perez Dave on 04-23-2023 MCV (RBC) [Entitic vol] 98.8 fL 80-94 [facility] Hematocrit Auto (Bld) [Volum e fraction]Ordered By: Perez Dave on 04-23-2023 Hematocrit (Bld) [Volume fraction] 42.3 % 40-54 [facility] INR in Blood by Coagulation assayOrdered By: Perez Dave on 04-23-2023 INR Coag (Bld) [Relative time] 1.0 {INR} [facility] Laboratory - Chemistry and C hemistry - challengeOrdered By: Perez Dave on 04-23-2023 CO2 [Moles/Vol] 24.0 mmol/L 21.0-32.0 [facility] Urea nitrogen/Creatinine [Mass ratio] 12.1 mg/mg 10-20 [facility] Laboratory - CoagulationOrde red By: Perez Dave on 04-23-2023 aPTT Coag (Bld) [Time] 23.0 s 24.1-36.2 [facility] PT Coag (PPP) [Time] 12.9 s 11.7-14.9 [facility] Laboratory - Hematology and Cell countsOrdered By: Perez Dave on 04-23-2023 Erythrocyte distribution width (RBC) [Entitic vol] 45.7 fL 35.1-43.9 [facility] Erythrocyte distribution width (RBC) [Ratio] 12.6 % 11.6-14.6 [facility] Immature granulocytes/100 WBC (Bld) 0.400 % 0.0-0.9 [facility] Comment on above: IG% - Immature Granu locytes (promyelocytes, myelocytes and metamyelocytes) > 1% indicates that a LEFT SHIFT is Present. MCH (RBC) [Entitic mass] 32.7 pg 27.0-32.0 [facility] Nucleated RBC/100 WBC (Bld) [Ratio] 0 % 0-5 [facility] MCHC Auto (RBC) [Mass/Vol]Or dered By: Perez Dave on 04-23-2023 MCHC (RBC) [Mass/Vol] 33.1 g/dL 32-36 [facility] No Panel InformationOrdered By: Perez Dave on 04-23-2023 Estimated Creatinine Clearance Calc 70.40 ml/min [facility] Estimated GFR (MDRD) Amer 77 mL/min >60 [facility] Comment on above: GFR Calc Estimated GFR (MDRD) Non-Af Amer 63 mL/min >60 [facility] Comment on above: Non- GFR Calc Troponin I High Sensitivity 6 pg/mL 3.0-78.0 [facility] Comment on above: Please Note: New Joan t Units and Gender Specific Reference Ranges. For more information see Policy Stat Procedure [place] High Sensitivity Troponin (TNIH) and attachments. Platelets bldOrdered By: Priti Dave on 04-23-2023 Platelets (Bld) [#/Vol] 226 10*3/uL 150-450 [facility] Serum or plasma calcium randa urement (mass/volume)Ordered By: [facility] on 04-23-2023 Calcium [Mass/Vol] 8.8 mg/dL 8.5-10.1 [facility] Serum or plasma creatinine m easurement (mass/volume)Ordered By: [place] Tenzin on 04-23-2023 Creatinine [Mass/Vol] 1.24 mg/dL 0.70-1.30 [facility] Comment on above: The validity of the calculated GFR & GFRAA in patients over 70 years has not been determined. Clinical correlation is essential. Serum or plasma urea nitroge n measurement (mass/volume)Ordered By: [facility] on 04-23-2023 Urea nitrogen [Mass/Vol] 15 mg/dL 7-18 [facility] Thin prep Papanicolaou smear with manual screeningOrdered By: [facility] on 04-23-2023 Thin prep Papanicolaou smear with manual screening 9 5-15 [facility] Absolute lymphocyte counton 05-06-2022 Lymphocytes Auto (Unsp spec) [#/Vol] 1.23 10*3/uL 0.83-4.51 [facility] Work Phone: Basophil percentageon 2021 Basophils/100 WBC (Bld) 0.7 % 0-1 [facility] Work Phone: Bilirubin [Mass/Vol] 0.50 mg/dL 0.20-1.00 [facility] Work Phone: Comment on above: For patients on eltr ombopag therapy, use of Dimension [place] TBIL is not recommended. Chloride [Moles/Vol] 105 mmol/L 98-107 [facility] Work Phone: Cholesterol [Mass/Vol] 179 mg/dL <200 [facility] Work Phone: Comment on above: <200 mg/dL Desirable 200-240 mg/dL Borderline >240 mg/dL High Risk Eosinophils/100 WBC (Bld) 3.0 % 0-5 [facility] Work Phone: Glucose [Mass/Vol] 104 mg/dL 74-106 [facility] Work Phone: Comment on above: Fasting Glucose resu lt from 100 to 125 mg/dL suggests IMPAIRED HOMEOSTASIS per A.D.A. criteria. Neutrophils (Bld) [#/Vol] 4.0 10*3/uL 2.0-7.7 [facility] Work Phone: Neutrophils/100 WBC (Bld) 66.8 % 47-70 [facility] Work Phone: Potassium [Moles/Vol] 4.3 mmol/L 3.5-5.1 [facility] Work Phone: Comment on above: Slight Hemolysis, Re sult may be falsely increased. Protein [Mass/Vol] 8.3 g/dL 6.4-8.2 [facility] Work Phone: Sodium [Moles/Vol] 140 mmol/L 136-145 [facility] Work Phone: Triglyceride [Mass/Vol] 169 mg/dL <199 [facility] Work Phone: Comment on above: The drugs N-Acetylcy steine and Metamizole may falsely depress this assay.Serum Triglycerides Reference Interval Normal <150 mg/dL Borderline high 150 - 199 mg/dL High 200 - 499 mg/dL Very High > or = 500 mg/dL WBC (Bld) [#/Vol] 6.0 10*3/uL 4.4-11.0 [facility] Work Phone: Blood erythrocytes count (nu mber/volume)on 05-06-2022 RBC (Bld) [#/Vol] 4.85 10*6/uL 4.6-6.2 [facility] Work Phone: Blood hemoglobin measurement (mass/volume)on 05-06-2022 Hemoglobin (Bld) [Mass/Vol] 15.8 g/dL 13.0-16.5 [facility] Work Phone: Blood lymphocytes/100 leukoc yteson 05-06-2022 Lymphocytes/100 WBC (Bld) 20.5 % 19-41 [facility] Work Phone: Blood monocytes/100 leukocyt eson 05-06-2022 Monocytes/100 WBC (Bld) 8.5 % 0-10 [facility] Work Phone: Blood platelet mean volumeon 05-06-2022 Platelet mean volume (Bld) [Entitic vol] 9.9 fL 6.2-12.0 [facility] Work Phone: Determination of erythrocyte mean corpuscular volume (MCV)on 05-06-2022 MCV (RBC) [Entitic vol] 98.4 fL 80-94 [facility] Work Phone: Erythrocyte sedimentation ra bobby 05-06-2022 ESR (Bld) [Velocity] 17 mm/h 0-20 [facility]: Hematocrit Auto (Bld) [Volum e fraction]on 05-06-2022 Hematocrit (Bld) [Volume fraction] 47.7 % 40-54 [facility] Work Phone: Laboratory - Chemistry and C hemistry - challengeon 05-06-2022 ALP [Catalytic activity/Vol] 82 U/L 45-117 [facility] Work Phone: ALT [Catalytic activity/Vol] 78 U/L 16-61 [facility] Work Phone: CO2 [Moles/Vol] 26.0 mmol/L 21.0-32.0 [facility] Work Phone: [phone] Cobalamin (Vitamin B12) [Mass/Vol] 289 pg/mL 211-911 [facility] Work Phone: Globulin (S) [Mass/Vol] 4.7 g/dL 2.2-4.2 [facility] Work Phone: Urea nitrogen/Creatinine [Mass ratio] 8.1 mg/mg 10-20 [facility] Work Phone: Laboratory - Hematology and Cell countson 05-06-2022 Erythrocyte distribution width (RBC) [Entitic vol] 46.7 fL 35.1-43.9 [facility] Work Phone: Erythrocyte distribution width (RBC) [Ratio] 12.9 % 11.6-14.6 [facility] Work Phone: [phone] Immature granulocytes/100 WBC (Bld) 0.500 % 0.0-0.9 [facility] Work Phone: [phone] Comment on above: IG% - Immature Granu locytes (promyelocytes, myelocytes and metamyelocytes) > 1% indicates that a LEFT SHIFT is Present. MCH (RBC) [Entitic mass] 32.6 pg 27.0-32.0 [facility] Work Phone: [phone] Nucleated RBC/100 WBC (Bld) [Ratio] 0 % 0-5 [facility] Work Phone: [phone] MCHC Auto (RBC) [Mass/Vol]on 05-06-2022 MCHC (RBC) [Mass/Vol] 33.1 g/dL 32-36 [facility] Work Phone: No Panel Informationon 05-06 Estimated GFR (MDRD) Amer 77 mL/min >60 [facility] Work Phone: [phone] Comment on above: GFR Calc Estimated GFR (MDRD) Non-Af Amer 64 mL/min >60 [facility] Work Phone: [phone] Comment on above: Non- GFR Calc Thyroid Stimulating Hormone (TSH) 0.99 uIU/mL 0.358-3.74 [facility] Work Phone: [phone] Vitamin D 25-Hydroxy 37.3 ng/mL [facility] Work Phone: [phone] Comment on above: Vitamin D 25(OH) Sta tus Range Deficiency <20 ng/mL (50nmol/L) Insufficiency 20 - 30 ng/mL (50 - 75 nmol/L) Sufficiency 30 - 100 ng/mL (75 - 250 nmol/L) Toxicity >100 ng/mL (>250 nmol/L) Platelets bldon 05-06-2022 Platelets (Bld) [#/Vol] 223 10*3/uL 150-450 [facility] Work Phone: Serum or plasma albumin randa urement (mass/volume)on 05-06-2022 Albumin [Mass/Vol] 3.6 g/dL 3.2-5.0 [facility] Work Phone: Serum or plasma albumin/glob ulin mass ratioon 05-06-2022 Albumin/Globulin [Mass ratio] 0.8 {ratio} 0.9-2.4 [facility] Work Phone: Serum or plasma calcium randa urement (mass/volume)on 05-06-2022 Calcium [Mass/Vol] 9.0 mg/dL 8.5-10.1 [facility] Work Phone: Serum or plasma cholesterol in HDL measurement (mass/volume)on 05-06-2022 Cholesterol in HDL [Mass/Vol] 78 mg/dL >40 [facility] Work Phone: Comment on above: The drugs N-Acetylcy steine and Metamizole may falsely depress this assay. Reference Range HDL <40 mg/dL Low HDL Cholesterol HDL >or= 60 mg/dL High HDL Cholesterol Serum or plasma cholesterol in VLDL measurement (mass/volume)on 05-06-2022 Cholesterol in VLDL [Mass/Vol] 34 mg/dL 5-40 [facility] Work Phone: Serum or plasma creatinine m easurement (mass/volume)on 05-06-2022 Creatinine [Mass/Vol] 1.24 mg/dL 0.70-1.30 [facility] Work Phone: Comment on above: The validity of the calculated GFR & GFRAA in patients over 70 years has not been determined. Clinical correlation is essential. Serum or plasma low density lipoprotein (LDL) cholesterol measurement (mass/volume)on 05-06-2022 Cholesterol in LDL [Mass/Vol] 67 mg/dL 0-130 [facility] Work Phone: Serum or plasma urea nitroge n measurement (mass/volume)on 05-06-2022 Urea nitrogen [Mass/Vol] 10 mg/dL 7-18 [facility] Work Phone: Thin prep Papanicolaou smear with manual screeningon 05-06-2022 Thin prep Papanicolaou smear with manual screening 54 U/L 15-37 [facility] Work Phone: Comment on above: Slight Hemolysis, Re sult may be falsely increased. Thin prep Papanicolaou smear with manual screening 9 5-15 [facility] Work Phone: Basophil percentageon 2021 Chloride [Moles/Vol] 108 mmol/L 98-107 [facility] Work Phone: Cholesterol [Mass/Vol] 158 mg/dL <200 [facility] Work Phone: Comment on above: <200 mg/dL Desirable 200-240 mg/dL Borderline >240 mg/dL High Risk Glucose [Mass/Vol] 112 mg/dL 74-106 [facility] Work Phone: Comment on above: Fasting Glucose resu lt from 100 to 125 mg/dL suggests IMPAIRED HOMEOSTASIS per A.D.A. criteria. Potassium [Moles/Vol] 3.9 mmol/L 3.5-5.1 [facility] Work Phone: Sodium [Moles/Vol] 139 mmol/L 136-145 [facility] Work Phone: Triglyceride [Mass/Vol] 147 mg/dL [facility] Work Phone: Comment on above: The drugs N-Acetylcy steine and Metamizole may falsely depress this assay.Serum Triglycerides Reference Interval Normal <150 mg/dL Borderline high 150 - 199 mg/dL High 200 - 499 mg/dL Very High > or = 500 mg/dL WBC (Bld) [#/Vol] 6.1 10*3/uL 4.4-11.0 [facility] Work Phone: [phone] Blood erythrocytes count (nu mber/volume)on 10-31-2021 RBC (Bld) [#/Vol] 4.40 10*6/uL 4.6-6.2 [facility] Work Phone: [phone] Blood hemoglobin measurement (mass/volume)on 10-31-2021 Hemoglobin (Bld) [Mass/Vol] 14.2 g/dL 13.0-16.5 [facility] Work Phone: [phone] Blood platelet mean volumeon 10-31-2021 Platelet mean volume (Bld) [Entitic vol] 9.9 fL 6.2-12.0 [facility] Work Phone: [phone] Determination of erythrocyte mean corpuscular volume (MCV)on 10-31-2021 MCV (RBC) [Entitic vol] 98.2 fL 80-94 [facility] Work Phone: [phone] Hematocrit Auto (Bld) [Volum e fraction]on 10-31-2021 Hematocrit (Bld) [Volume fraction] 43.2 % 40-54 [facility] Work Phone: [phone] Laboratory - Chemistry and C hemistry - challengeon 10-31-2021 CO2 [Moles/Vol] 28.0 mmol/L 21.0-32.0 [facility] Work Phone: [phone] Urea nitrogen/Creatinine [Mass ratio] 10.0 mg/mg 10-20 [facility] Work Phone: [phone] Laboratory - Hematology and Cell countson 10-31-2021 Erythrocyte distribution width (RBC) [Entitic vol] 46.4 fL 35.1-43.9 [facility] Work Phone: [phone] Erythrocyte distribution width (RBC) [Ratio] 13.0 % 11.6-14.6 [facility] Work Phone: [phone] MCH (RBC) [Entitic mass] 32.3 pg 27.0-32.0 [facility] Work Phone: [phone] MCHC Auto (RBC) [Mass/Vol]on 10-31-2021 MCHC (RBC) [Mass/Vol] 32.9 g/dL 32-36 [facility] Work Phone: [phone] No Panel Informationon 10-31 Estimated Creatinine Clearance Calc 98.20 ml/min [facility] Work Phone: [phone] Estimated GFR (MDRD) Amer 112 mL/min >60 [facility] Work Phone: Comment on above: GFR Calc Estimated GFR (MDRD) Non-Af Amer 92 mL/min >60 [facility] Work Phone: Comment on above: Non- GFR Calc Thyroid Stimulating Hormone (TSH) 0.80 uIU/mL 0.358-3.74 [facility] Work Phone: Platelets bldon 10-31-2021 Platelets (Bld) [#/Vol] 188 10*3/uL 150-450 [facility] Work Phone: Serum or plasma calcium randa urement (mass/volume)on 10-31-2021 Calcium [Mass/Vol] 8.6 mg/dL 8.5-10.1 [facility] Work Phone: Serum or plasma cholesterol in HDL measurement (mass/volume)on 10-31-2021 Cholesterol in HDL [Mass/Vol] 66 mg/dL [facility] Work Phone: Comment on above: The drugs N-Acetylcy steine and Metamizole may falsely depress this assay. Reference Range HDL <40 mg/dL Low HDL Cholesterol HDL >or= 60 mg/dL High HDL Cholesterol Serum or plasma cholesterol in VLDL measurement (mass/volume)on 10-31-2021 Cholesterol in VLDL [Mass/Vol] 29 mg/dL 5-40 [facility] Work Phone: Serum or plasma creatinine m easurement (mass/volume)on 10-31-2021 Creatinine [Mass/Vol] 0.90 mg/dL 0.70-1.30 [facility] Work Phone: Comment on above: The validity of the calculated GFR & GFRAA in patients over 70 years has not been determined. Clinical correlation is essential. Serum or plasma low density lipoprotein (LDL) cholesterol measurement (mass/volume)on 10-31-2021 Cholesterol in LDL [Mass/Vol] 63 mg/dL 0-130 [facility] Work Phone: Serum or plasma urea nitroge n measurement (mass/volume)on 10-31-2021 Urea nitrogen [Mass/Vol] 9 mg/dL 7-18 [facility] Work Phone: Thin prep Papanicolaou smear with manual screeningon 10-31-2021 Thin prep Papanicolaou smear with manual screening 3 5-15 [facility] Work Phone: Absolute lymphocyte counton 10-30-2021 Lymphocytes Auto (Unsp spec) [#/Vol] 1.97 10*3/uL 0.83-4.51 [facility] Work Phone: Basophil percentageon 2021 Basophils/100 WBC (Bld) 0.4 % 0-1 [facility] Work Phone: Chloride [Moles/Vol] 106 mmol/L 98-107 [facility] Work Phone: Eosinophils/100 WBC (Bld) 3.4 % 0-5 [facility] Work Phone: Glucose [Mass/Vol] 94 mg/dL 74-106 [facility] Work Phone: Neutrophils (Bld) [#/Vol] 4.2 10*3/uL 2.0-7.7 [facility] Work Phone: Neutrophils/100 WBC (Bld) 58.0 % 47-70 [facility] Work Phone: Potassium [Moles/Vol] 3.9 mmol/L 3.5-5.1 [facility] Work Phone: Comment on above: Moderate Hemolysis, Result may be falsely increased. Sodium [Moles/Vol] 140 mmol/L 136-145 [facility] Work Phone: WBC (Bld) [#/Vol] 7.2 10*3/uL 4.4-11.0 [facility] Work Phone: Blood erythrocytes count (nu mber/volume)on 10-30-2021 RBC (Bld) [#/Vol] 4.96 10*6/uL 4.6-6.2 [facility] Work Phone: Blood hemoglobin measurement (mass/volume)on 10-30-2021 Hemoglobin (Bld) [Mass/Vol] 16.4 g/dL 13.0-16.5 [facility] Work Phone: Blood lymphocytes/100 leukoc yteson 10-30-2021 Lymphocytes/100 WBC (Bld) 27.6 % 19-41 [facility] Work Phone: Blood monocytes/100 leukocyt eson 10-30-2021 Monocytes/100 WBC (Bld) 10.3 % 0-10 [facility] Work Phone: Blood platelet mean volumeon 10-30-2021 Platelet mean volume (Bld) [Entitic vol] 9.7 fL 6.2-12.0 [facility] Work Phone: Determination of erythrocyte mean corpuscular volume (MCV)on 10-30-2021 MCV (RBC) [Entitic vol] 96.4 fL 80-94 [facility] Work Phone: [phone] Hematocrit Auto (Bld) [Volum e fraction]on 10-30-2021 Hematocrit (Bld) [Volume fraction] 47.8 % 40-54 [facility] Work Phone: [phone] Laboratory - Chemistry and C hemistry - challengeon 10-30-2021 CO2 [Moles/Vol] 30.0 mmol/L 21.0-32.0 [facility] Work Phone: [phone] Magnesium [Mass/Vol] 2.3 mg/dL 1.6-2.6 [facility] Work Phone: Comment on above: Moderate Hemolysis, Result may be falsely increased. Urea nitrogen/Creatinine [Mass ratio] 16.0 mg/mg 10-20 [facility] Work Phone: Laboratory - Hematology and Cell countson 10-30-2021 Erythrocyte distribution width (RBC) [Entitic vol] 44.9 fL 35.1-43.9 [facility] Work Phone: Erythrocyte distribution width (RBC) [Ratio] 12.7 % 11.6-14.6 [facility] Work Phone: Immature granulocytes/100 WBC (Bld) 0.300 % 0.0-0.9 [facility] Work Phone: [phone] Comment on above: IG% - Immature Granu locytes (promyelocytes, myelocytes and metamyelocytes) > 1% indicates that a LEFT SHIFT is Present. MCH (RBC) [Entitic mass] 33.1 pg 27.0-32.0 [facility] Work Phone: [phone] Nucleated RBC/100 WBC (Bld) [Ratio] 0 % 0-5 [facility] Work Phone: [phone] MCHC Auto (RBC) [Mass/Vol]on 10-30-2021 MCHC (RBC) [Mass/Vol] 34.3 g/dL 32-36 [facility] Work Phone: No Panel Informationon 10-30 Troponin I High Sensitivity < 3 pg/mL 3.0-78.0 [facility] Work Phone: Comment on above: Please Note: New Joan t Units and Gender Specific Reference Ranges. For more information see Policy Stat Procedure [place] High Sensitivity Troponin (TNIH) and attachments. Troponin I High Sensitivity < 3 pg/mL 3.0-78.0 [facility] Work Phone: [phone] Comment on above: Please Note: New Joan t Units and Gender Specific Reference Ranges. For more information see Policy Stat Procedure [place] High Sensitivity Troponin (TNIH) and attachments. D-Dimer Quantitative (PE/DVT) 0.37 FEU/ug/m 0.27-0.49 [facility] Work Phone: [phone] Comment on above: NORMAL D-Dimer level (<0.50) indicates no DVT or PE. Estimated Creatinine Clearance Calc 74.27 ml/min [facility] Work Phone: [phone] Estimated GFR (MDRD) Amer 81 mL/min >60 [facility] Work Phone: [phone] Comment on above: GFR Calc Estimated GFR (MDRD) Non-Af Amer 67 mL/min >60 [facility] Work Phone: [phone] Comment on above: Non- GFR Calc Platelets bldon 10-30-2021 Platelets (Bld) [#/Vol] 235 10*3/uL 150-450 [facility] Work Phone: Serum or plasma calcium randa urement (mass/volume)on 10-30-2021 Calcium [Mass/Vol] 9.5 mg/dL 8.5-10.1 [facility] Work Phone: Serum or plasma creatinine m easurement (mass/volume)on 10-30-2021 Creatinine [Mass/Vol] 1.19 mg/dL 0.70-1.30 [facility] Work Phone: Comment on above: The validity of the calculated GFR & GFRAA in patients over 70 years has not been determined. Clinical correlation is essential. Serum or plasma urea nitroge n measurement (mass/volume)on 10-30-2021 Urea nitrogen [Mass/Vol] 19 mg/dL 7-18 [facility] Work Phone: Thin prep Papanicolaou smear with manual screeningon 10-30-2021 Thin prep Papanicolaou smear with manual screening 4 5-15 [facility] Work Phone: Office Visiton 01-20-2017 Dietary management education, guidance, and counseling (procedure) yes Invalid Interpretation Code [facility] Work Phone: [phone] Documentation of current medications (procedure) Done Invalid Interpretation Code [facility] Work Phone: [phone] Fall risk assessment No Invalid Interpretation Code [facility] Work Phone: [phone] Lab Report: Bilirubin, Direc ton 12-02-2016 Bilirubin (direct) 0.10 mg/dL Invalid Interpretation Code 0.00-0.30 [facility] Work Phone: [phone] Lab Report: Comprehensive Me tabolic Profilon 12-02-2016 Alanine aminotransferase (ALT) 55 U/L Invalid Interpretation Code 12-78 [facility] Work Phone: [phone] Albumin 4.0 g/dL Invalid Interpretation Code 3.4-5.0 [facility] Work Phone: [phone] Albumin/Globulin Ratio 1 {ratio} Invalid Interpretation Code 0.9-2.4 [facility] Work Phone: [phone] Alkaline phosphatase (ALP) 89 U/L Invalid Interpretation Code 45-117 [facility] Work Phone: [phone] ALP enzyme act/vol (Bld) 89 U/L 45-117 [facility] Work Phone: [phone] Anion gap 5 mmol/L Invalid Interpretation Code 5-15 [facility] Work Phone: [phone] Anion gap molar conc 5 mmol/L 5-[address] [facility] Work Phone: [phone] Aspartate aminotransferase (AST) 38 U/L High 15-37 [facility] Work Phone: [phone] Bilirubin (total) 0.40 mg/dL Invalid Interpretation Code 0.20-1.00 [facility] Work Phone: [phone] BUN/Creatinine Ratio 16.4 RATIO Invalid Interpretation Code 10-20 [facility] Work Phone: [phone] Calcium 8.8 mg/dL Invalid Interpretation Code 8.5-10.1 [facility] Work Phone: [phone] Chloride 108 mmol/L High 98-107 [facility] Work Phone: [phone] CO2 25.0 mmol/L Invalid Interpretation Code 21.0-32.0 [facility] Work Phone: [phone] CO2 ppres (BldV) 25.0 mmol/L 21.0-32.0 [facility] Work Phone: [phone] Creatinine 1.10 mg/dL Invalid Interpretation Code 0.70-1.30 [facility] Work Phone: [phone] eGFR (non-black) 74 mL/min/{1.73_m2} Invalid Interpretation Code >60 [facility] Work Phone: [phone] eGFR (non-black) 90 mL/min/{1.73_m2} Invalid Interpretation Code >60 [facility] Work Phone: [phone] EST GFR - AA 90 mL/min >60 [facility] Work Phone: [phone] Globulin 3.9 g/dL High 2.3-3.5 [facility] Work Phone: [phone] Globulin mass conc (S) 3.9 g/dL High 2.3-3.5 [facility] Work Phone: [phone] Glucose 89 mg/dL Invalid Interpretation Code 70-110 [facility] Work Phone: [phone] Glucose mass conc 89 mg/dL 70-110 [facility] Work Phone: [phone] Potassium molar conc 4.1 mmol/L Invalid Interpretation Code 3.5-5.1 [facility] Work Phone: [phone] Protein 7.9 g/dL Invalid Interpretation Code 6.4-8.2 [facility] Work Phone: [phone] Sodium 138 mmol/L Invalid Interpretation Code 136-145 [facility] Work Phone: [phone] Urea nitrogen 18 mg/dL Invalid Interpretation Code 7-18 [facility] Work Phone: [phone] Lab Report: Lipid Profileon 12-02-2016 Cholesterol 146 mg/dL Invalid Interpretation Code 200 [facility] Work Phone: [phone] HDL Cholesterol 55 mg/dL Invalid Interpretation Code [facility] Work Phone: [phone] LDL Cholesterol 64 mg/dL Invalid Interpretation Code 0-130 [facility] Work Phone: [phone] Triglyceride 135 mg/dL Invalid Interpretation Code [facility] Work Phone: [phone] very low density lipoproteins 27 mg/dL Invalid Interpretation Code 5-40 [facility] Work Phone: [phone] Lab Report: PSA,Total - [place] al Screenon 12-02-2016 prostate specific antigen (PSA) screening 0.43 ng/mL Invalid Interpretation Code 0.00-4.00 [facility] Work Phone: [phone] Protein mass conc 0.43 ng/mL 0.00-4.00 [facility] Work Phone: [phone] PSA,TOT SCREEN 0.43 ng/mL Invalid Interpretation Code 0.00-4.00 [facility] Work Phone: [phone] Office Visit: [facility] 07-09-20 16 Documentation of current medications (procedure) Done Invalid Interpretation Code [facility] Work Phone: Protein mass conc Done [facility] Work Phone: Replaced Document: Fernanda Ybarra CG Observationson 07-09-2016 EKG QRS axis -27 deg [facility] Work Phone: [phone] electrocardiogram interpretation Sinus Rhythm Low voltage in limb leads. ABNORMAL Invalid Interpretation Code [facility] Work Phone: [phone] GE use only - for [employer] import when terms are not otherwise specified 406 ms Invalid Interpretation Code [facility] Work Phone: Interpretation Sinus Rhythm Low voltage in limb leads. ABNORMAL [facility] Work Phone: [phone] P [place] 42 deg [facility] Work Phone: [phone] P wave axis, electrocardiogram 42 deg Invalid Interpretation Code [facility] Work Phone: [phone] RI Interval 162 ms [facility] Work Phone: [phone] RI interval, electrocardiogram 162 ms Invalid Interpretation Code [facility] Work Phone: [phone] Pulse (Heart Rate) 75 /min Invalid Interpretation Code [facility] Work Phone: QRS axis, electrocardiogram -27 deg Invalid Interpretation Code [facility] Work Phone: [phone] QRS Duration 102 ms [facility] Work Phone: QRS duration, electrocardiogram 102 ms Invalid Interpretation Code [facility] Work Phone: QT Interval new path ms [facility] Work Phone: QT interval, electrocardiogram new path ms Invalid Interpretation Code [facility] Work Phone: QTc Chan 406 ms [facility] Work Phone: T [place] 26 deg [facility] Work Phone: T wave axis, electrocardiogram 26 deg Invalid Interpretation Code [facility] Work Phone: Office Visiton 01-05-2016 Dietary management education, guidance, and counseling (procedure) yes Invalid Interpretation Code [facility] Work Phone: Clinical Lists 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: 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 Left ventricular Ejection fraction 55 % Invalid Interpretation Code [facility] Work Phone: [phone] Lab Report: Thyroid Stim Hor nikole (TSH)on 11-01-2015 Thyroid stimulating hormone (TSH) 1.25 u[iU]/mL Invalid Interpretation Code 0.358-3.74 [facility] Work Phone: [phone] Office Visit: [facility] 05-05-20 15 Tobacco smoking status NHIS Former smoker [facility] Work Phone: [phone] Tobacco use CPHS Former smoker Invalid Interpretation Code [facility] Work Phone: [phone] Office Visiton 11-04-2014 cardiac risk group C Invalid Interpretation Code [facility] Work Phone: [phone] General cardiovascular disease 10Y risk [#] [place].D'Agostino N/A Invalid Interpretation Code [facility] Work Phone: [phone] Vital Signs Date Time Vital Sign Value Performing Clinician Faci lity 05-05-2025 08:28-0400 Body height 182.[address] Eduard Henley MD Work Phone: [facility] 05-05-2025 08:28-0400 Body mass index (BMI) [Ratio] 26.8 kg/m2 Dr. Eduard Henley MD Work Phone: [facility] 05-05-2025 08:28-0400 Body weight 89.[address] Eduard Henley MD Work Phone: [facility] 05-05-2025 08:28-0400 Diastolic blood pressure 78 mm[Hg] Dr. Eduard Henley MD Work Phone: [facility] 05-05-2025 08:28-0400 Heart rate 75 /min Dr. Eduard Henley MD Work Phone: [facility] 05-05-2025 08:28-0400 Respiratory rate 16 /min Dr. Eduard Henley MD Work Phone: [facility] 05-05-2025 08:28-0400 SaO2% (BldA) [Mass fraction] 98 % Dr. Eduard Henley MD Work Phone: [facility] 05-05-2025 08:28-0400 Systolic blood pressure 138 mm[Hg] Dr. Eduard Henley MD Work Phone: [facility] 01-22-2025 22:23-0400 Body temperature 97.9 [degF] Dr. Eduard Henley MD Work Phone: 6(542)569-645111 [place] [address] 01-22-2025 22:23-0400 Diastolic blood pressure 77 mm[Hg] Dr. Eduard Henley MD Work Phone: 3(679)876-989711 [place] [address] 01-22-2025 22:23-0400 Heart rate 104 /min Dr. Eduard Henley MD Work Phone: 7(793)852-618419 [place] [address] 01-22-2025 22:23-0400 Respiratory rate 13 /min Dr. Eduard Henley MD Work Phone: 9(515)880-777719 [place] [address] 01-22-2025 22:23-0400 SaO2% (BldA) [Mass fraction] 98 % Dr. Eduard Henley MD Work Phone: 1(521)896-927319 [place] [address] 01-22-2025 22:23-0400 Systolic blood pressure 120 mm[Hg] Dr. Eduard Henley MD Work Phone: 2(219)688-421911 [place] [address] 01-22-2025 21:30-0400 Inhaled oxygen flow rate 2 L/min Dr. Eduard Henley MD Work Phone: 5(348)318-559011 [place] [address] 01-22-2025 20:30-0400 Body height 182.[address] Eduard Henley MD Work Phone: 0(310)[phone] [place] [address] 01-22-2025 20:30-0400 Body mass index (BMI) [Ratio] 29 kg/m2 Dr. Eduard Henley MD Work Phone: 4(030)313-043011 [place] [address] 01-22-2025 20:30-0400 Body weight 97.[address] Eduard Henley MD Work Phone: 1(833)555-006419 [place] [address] 01-22-2025 18:07-0400 Diastolic blood pressure 91 mm[Hg] Dr. Eduard Henley MD Work Phone: [facility] 01-22-2025 18:07-0400 Systolic blood pressure 145 mm[Hg] Dr. Eduard Henley MD Work Phone: [facility] 01-22-2025 17:00-0400 Heart rate 72 /min Dr. Eduard Henley MD Work Phone: 0(521)607-899111 [place] [address] 01-22-2025 17:00-0400 Respiratory rate 18 /min Dr. Eduard Henley MD Work Phone: 2(554)503-901208 [address] 01-22-2025 17:00-0400 SaO2% (BldA) [Mass fraction] 100 % Dr. Eduard Henley MD Work Phone: 4(722)110-737008 [address] 01-22-2025 13:46-0400 Body height 182.[address] Edurad Henley MD Work Phone: 0(596)[phone] [place] [address] 01-22-2025 13:46-0400 Body mass index (BMI) [Ratio] 27.1 kg/m2 Dr. Eduard Henley MD Work Phone: 8(051)641-766911 [place] [address] 01-22-2025 13:46-0400 Body temperature 97.5 [degF] Dr. Eduard Henley MD Work Phone: 5(908)165-724511 [place] [address] 01-22-2025 13:46-0400 Body weight 90.[address] Eduard Henley MD Work Phone: 6(110)096-182611 [place] [address] 09-03-2024 03:53-0500 Body temperature 98 [degF] Dr. Eduard Henley MD Work Phone: 7(718)326-173608 [address] 09-03-2024 03:53-0500 Diastolic blood pressure 100 mm[Hg] Dr. Eduard Henley MD Work Phone: 1(941)752-759811 [place] [address] 09-03-2024 03:53-0500 Heart rate 86 /min Dr. Eduard Henley MD Work Phone: 1(622)[phone] [place] [address] 09-03-2024 03:53-0500 Respiratory rate 18 /min Dr. Eduard Henley MD Work Phone: 1([phone])498-674219 [place] [address] 09-03-2024 03:53-0500 SaO2% (BldA) [Mass fraction] 98 % Dr. Eduard Henley MD Work Phone: 4(589)182-220019 [place] [address] 09-03-2024 03:53-0500 Systolic blood pressure 145 mm[Hg] Dr. Eduard Henley MD Work Phone: 6(739)291-621019 [place] [address] 09-03-2024 00:23-0500 Body mass index (BMI) [Ratio] 28.6 kg/m2 Dr. Eduard Henley MD Work Phone: 6(300)248-872319 [place] [address] 09-03-2024 00:23-0500 Body weight 95.[address] Eduard Henley MD Work Phone: 0(953)403-089719 [place] [address] 08-06-2024 13:53-0500 Body mass index (BMI) [Ratio] 28 kg/m2 Dr. Eduard Henley MD Work Phone: 8(228)182-591219 [place] [address] 08-06-2024 13:53-0500 Body weight 93.[address] Eduard Henley MD Work Phone: 4(123)380-986119 [place] [address] 08-06-2024 13:53-0500 Diastolic blood pressure 89 mm[Hg] Dr. Eduard Henley MD Work Phone: 7(063)634-667919 [place] [address] 08-06-2024 13:53-0500 Heart rate 89 /min Dr. Eduard Henley MD Work Phone: 7(679)234-667119 [place] [address] 08-06-2024 13:53-0500 Respiratory rate 16 /min Dr. Eduard Henley MD Work Phone: 9(776)531-070619 [place] [address] 08-06-2024 13:53-0500 Systolic blood pressure 138 mm[Hg] Dr. Eduard Henley MD Work Phone: 3(139)846-953219 [place] [address] 10-02-2023 08:45-0500 Body temperature 98.6 [degF] Dr. Sergei Henley Work Phone: [facility] 10-02-2023 08:45-0500 Diastolic blood pressure 84 mm[Hg] Dr. Sergei Henley Work Phone: [facility] 10-02-2023 08:45-0500 Heart rate 83 /min Dr. Sergei Henley Work Phone: 6(677)792-243611 [place] [address] 10-02-2023 08:45-0500 Respiratory rate 18 /min Dr. Sergei Henley Work Phone: [facility] 10-02-2023 08:45-0500 SaO2% (BldA) [Mass fraction] 97 % Dr. Sergei Henley Work Phone: 0(707)043-986611 [place] [address] 10-02-2023 08:45-0500 Systolic blood pressure 117 mm[Hg] Dr. Sergei Henley Work Phone: 0(447)194-790411 [place] [address] 10-02-2023 06:44-0500 Body height 182.[address] Sergei Henley Work Phone: 1(232)179-382808 [address] 10-02-2023 06:44-0500 Body mass index (BMI) [Ratio] 27.5 kg/m2 Dr. Sergei Henley Work Phone: 7(527)666-353011 [place] [address] 10-02-2023 06:44-0500 Body weight [address] Sergei Henley Work Phone: 5(594)769-359711 [place] [address] 09-11-2023 08:30-0500 Body height 182.[address] Sergei Henley Work Phone: 5(015)618-635108 [address] 09-11-2023 08:27-0500 Body mass index (BMI) [Ratio] 28.6 kg/m2 Dr. Sergei Henley Work Phone: [facility] 09-11-2023 08:27-0500 Body weight 95.[address] Sergei Henley Work Phone: 6(858)358-375811 [place] [address] 09-11-2023 08:27-0500 Diastolic blood pressure 85 mm[Hg] Dr. Sergei Henley Work Phone: [facility] 09-11-2023 08:27-0500 Heart rate 77 /min Dr. Sergei Henley Work Phone: [facility] 09-11-2023 08:27-0500 Respiratory rate 18 /min Dr. Sergei Henley Work Phone: [facility] 09-11-2023 08:27-0500 Systolic blood pressure 141 mm[Hg] Dr. Sergei Henley Work Phone: [facility] 07-17-2023 08:17-0500 Body mass index (BMI) [Ratio] 28.9 kg/m2 Dr. Sergei Henley Work Phone: [facility] 07-17-2023 08:17-0500 Body temperature 97.2 [degF] Dr. Sergei Henley Work Phone: [facility] 07-17-2023 08:17-0500 Body weight 96.[address] eSrgei Henley Work Phone: [facility] 07-17-2023 08:17-0500 Diastolic blood pressure 88 mm[Hg] Dr. Sergei Henley Work Phone: [facility] 07-17-2023 08:17-0500 Heart rate 78 /min Dr. Sergei Henley Work Phone: [facility] 07-17-2023 08:17-0500 Respiratory rate 18 /min Dr. Sergei Henley Work Phone: [facility] 07-17-2023 08:17-0500 SaO2% (BldA) [Mass fraction] 98 % Dr. Sergei Henley Work Phone: [facility] 07-17-2023 08:17-0500 Systolic blood pressure 125 mm[Hg] Dr. Sergei Henley Work Phone: [facility] 06-15-2023 07:26-0500 Body temperature 97.9 [degF] Dr. Sergei Henley Work Phone: [facility] 06-15-2023 07:26-0500 Diastolic blood pressure 83 mm[Hg] Dr. Sergei Henley Work Phone: [facility] 06-15-2023 07:26-0500 Heart rate 80 /min Dr. Sergei Henley Work Phone: [facility] 06-15-2023 07:26-0500 Respiratory rate 16 /min Dr. Sergei Henley Work Phone: [facility] 06-15-2023 07:26-0500 SaO2% (BldA) [Mass fraction] 99 % Dr. Sergei Henley Work Phone: [facility] 06-15-2023 07:26-0500 Systolic blood pressure 119 mm[Hg] Dr. Sergei Henley Work Phone: [facility] 06-14-2023 21:15-0400 Body height 182.[address] Sergei Henley Work Phone: [facility] 06-14-2023 21:15-0400 Body mass index (BMI) [Ratio] 29 kg/m2 Dr. Sergei Henley Work Phone: [facility] 06-14-2023 21:15-0400 Body weight 97.[address] Sergei Henley Work Phone: [facility] 06-14-2023 21:09-0400 Body temperature 98.4 [degF] Dr. Sergei Henley Work Phone: [facility] 06-14-2023 21:09-0400 Diastolic blood pressure 100 mm[Hg] Dr. Sergei Henley Work Phone: [facility] 06-14-2023 21:09-0400 Heart rate 88 /min Dr. Sergei Henley Work Phone: [facility] 06-14-2023 21:09-0400 Respiratory rate 22 /min Dr. Sergei Henley Work Phone: [facility] 06-14-2023 21:09-0400 SaO2% (BldA) [Mass fraction] 93 % Dr. Sergei Henley Work Phone: [facility] 06-14-2023 21:09-0400 Systolic blood pressure 152 mm[Hg] Dr. Sergei Henley Work Phone: [facility] 06-14-2023 16:36-0400 Body height 182.[address] Sergei Henley Work Phone: [facility] 06-14-2023 16:36-0400 Body mass index (BMI) [Ratio] 28.8 kg/m2 Dr. Sergei Henley Work Phone: [facility] 06-14-2023 16:36-0400 Body weight 96.[address] Sergei Henley Work Phone: [facility] 05-20-2023 13:29-0400 Body height 182.[address] Sergei Henley Work Phone: [facility] 05-20-2023 13:27-0400 Body mass index (BMI) [Ratio] 29.4 kg/m2 Dr. Sergei Henley Work Phone: [facility] 05-20-2023 13:27-0400 Body weight 98.[address] Sergei Henley Work Phone: [facility] 05-20-2023 13:27-0400 Diastolic blood pressure 80 mm[Hg] Dr. Sergei Henley Work Phone: [facility] 05-20-2023 13:27-0400 Heart rate 84 /min Dr. Sergei Henley Work Phone: [facility] 05-20-2023 13:27-0400 Respiratory rate 18 /min Dr. Sergei Henley Work Phone: [facility] 05-20-2023 13:27-0400 Systolic blood pressure 131 mm[Hg] Dr. Sergei Henley Work Phone: [facility] 04-25-2023 13:00-0400 Body mass index (BMI) [Ratio] 28.9 kg/m2 Dr. Sergei Henley Work Phone: [facility] 04-25-2023 10:23-0400 Body temperature 97.8 [degF] Dr. Sergei Henley Work Phone: [facility] 04-25-2023 10:23-0400 Diastolic blood pressure 78 mm[Hg] Dr. Sergei Henley Work Phone: [facility] 04-25-2023 10:23-0400 Heart rate 63 /min Dr. Sergei Henley Work Phone: [facility] 04-25-2023 10:23-0400 Respiratory rate 18 /min Dr. Sergei Henley Work Phone: [facility] 04-25-2023 10:23-0400 SaO2% (BldA) [Mass fraction] 96 % Dr. Sergei Henley Work Phone: [facility] 04-25-2023 10:23-0400 Systolic blood pressure 112 mm[Hg] Dr. Sergei Henley Work Phone: [facility] 04-24-2023 00:09-0400 Body height 182.[address] Sergei Henley Work Phone: [facility] 04-24-2023 00:09-0400 Body weight 96.[address] Sergei Henley Work Phone: [facility] 04-23-2023 23:38-0400 Body temperature 97.9 [degF] [facility] 04-23-2023 23:38-0400 Diastolic blood pressure 83 mm[Hg] [facility] 04-23-2023 23:38-0400 Heart rate 86 /min [facility] 04-23-2023 23:38-0400 Respiratory rate 17 /min [facility] 04-23-2023 23:38-0400 SaO2% (BldA) [Mass fraction] 99 % [facility] 04-23-2023 23:38-0400 Systolic blood pressure 126 mm[Hg] [facility] 04-23-2023 21:58-0400 Body height 182.88 cm [facility] 04-23-2023 21:58-0400 Body mass index (BMI) [Ratio] 29.5 kg/m2 [facility] 04-23-2023 21:58-0400 Body weight 98.7 kg [facility] 10-31-2021 10:52-0400 Body temperature 97.6 [degF] Dr. Sergei Henley Work Phone: [facility] Work Phone: 10-31-2021 10:52-0400 Diastolic blood pressure 86 mm[Hg] Dr. Sergei Henley Work Phone: [facility] Work Phone: 10-31-2021 10:52-0400 Heart rate 83 /min Dr. Sergei Henley Work Phone: [facility] Work Phone: 10-31-2021 10:52-0400 Respiratory rate 16 /min Dr. Sergei Henley Work Phone: [facility] Work Phone: 10-31-2021 10:52-0400 SaO2% (BldA) [Mass fraction] 96 % Dr. Sergei Henley Work Phone: [facility] Work Phone: 10-31-2021 10:52-0400 Systolic blood pressure 133 mm[Hg] Dr. Sergei Henley Work Phone: [facility] Work Phone: 10-30-2021 19:35-0400 Body height 182.[address] Sergei Henley Work Phone: [facility] Work Phone: 10-30-2021 19:35-0400 Body mass index (BMI) [Ratio] 29 kg/m2 Dr. Sergei Henley Work Phone: [facility] Work Phone: 10-30-2021 19:35-0400 Body weight [address] Sergei Henley Work Phone: [facility] Work Phone: 10-30-2021 19:18-0400 Body temperature 98.2 [degF] Dr. Sergei Henley Work Phone: [facility] Work Phone: 10-30-2021 19:18-0400 Diastolic blood pressure 89 mm[Hg] Dr. Sergei Henley Work Phone: [facility] Work Phone: 10-30-2021 19:18-0400 Heart rate 99 /min Dr. Sergei Henley Work Phone: [facility] Work Phone: 10-30-2021 19:18-0400 Respiratory rate 16 /min Dr. Sergei Henley Work Phone: [facility] Work Phone: 10-30-2021 19:18-0400 SaO2% (BldA) [Mass fraction] 99 % Dr. Sergei Henley Work Phone: [facility] Work Phone: 10-30-2021 19:18-0400 Systolic blood pressure 142 mm[Hg] Dr. Sergei Henley Work Phone: [facility] Work Phone: 10-30-2021 15:00-0400 Body mass index (BMI) [Ratio] 30.2 kg/m2 Dr. Sergei Henley Work Phone: [facility] Work Phone: 10-30-2021 15:00-0400 Body weight 100.[address] Sergei Henley Work Phone: [facility] Work Phone: 08-20-2021 07:38-0500 Diastolic blood pressure 75 mm[Hg] Dr. Sergei Henley Work Phone: [facility] Work Phone: 08-20-2021 07:38-0500 Systolic blood pressure 138 mm[Hg] Dr. Sergei Henley Work Phone: [facility] Work Phone: 08-14-2020 07:21-0500 Body mass index (BMI) [Ratio] 29.1 kg/m2 Dr. Sergei Henley Work Phone: [facility] Work Phone: 01-20-2017 08:42-0400 BMI (Body Mass Index) 28.34 kg/m2 [facility] Work Phone: 01-20-2017 08:42-0400 BP Diastolic 76 mm[Hg] Harumi DeFinis [facility] Work Phone: 01-20-2017 08:42-0400 BP Systolic 118 mm[Hg] Harumi DeFinis [facility] Work Phone: 01-20-2017 08:42-0400 Height 182.88 cm Harumi DeFinis [facility] Work Phone: 01-20-2017 08:42-0400 Pulse (Heart Rate) 88 /min Harumi DeFinis [facility] Work Phone: 01-20-2017 08:42-0400 Respiratory Rate 20 /min Harumi DeFinis [facility] Work Phone: 01-20-2017 08:42-0400 Weight 94.8 kg Harumi DeFinis [facility] Work Phone: 07-09-2016 08:40-0500 Heart rate 75 /min Harumi DeFinis [facility] Work Phone: 07-09-2016 08:26-0500 BMI (Body Mass Index) 28.33 kg/m2 Harumi Fernando [facility] Work Phone: 07-09-2016 08:26-0500 BP Diastolic 90 mm[Hg] Harumi DeFinis [facility] Work Phone: 07-09-2016 08:26-0500 BP Systolic 130 mm[Hg] Harumi DeFinhenrik [facility] Work Phone: 07-09-2016 08:26-0500 BSA (Body Surface Area) 2.17 m2 Harumi DeFinis [facility] Work Phone: 07-09-2016 08:26-0500 Pulse (Heart Rate) 75 /min Hartony DeFinhenrik [facility] Work Phone: 07-09-2016 08:26-0500 Respiratory Rate 16 /min Hartony DeFinis [facility] Work Phone: 07-09-2016 08:26-0500 Weight 94.76 kg Hartony DeFinhenrik [facility] Work Phone: 07-07-2010 15:49-0500 Height 182.88 cm Russellumi DeFinhenrik [facility] Work Phone: Encounters Encounter Date Encounter Type Care Provider Facility Start: 05-05-2025 End: 05-05-2025 Patient encounter procedure Mtichell Dubois TOUR SALES REPRESENTATIVE-C -[facility] Work Phone: Start: 05-05-2025 End: 05-05-2025 ambulatory Mitchell Dubois NP Facility:[facility] Start: 01-27-2025 End: 01-27-[address] Eduard Henley MD Work Phone: [facility] Work Phone: Start: 01-27-2025 End: 01-27-[address] Eduard Henley MD -[facility] Start: 01-27-2025 End: 01-27-2025 ambulatory Eduard Henley Facility:[facility] Start: 01-22-2025 End: 01-22-2025 Emergency department [...] 11-03-2024 Non-patient / Non-visit Dr. Vita SY -[facility] Start: 11-03-2024 End: 11-03-[address] Eduard Henley MD Work Phone: [facility] Work Phone: Start: 11-03-2024 End: 11-03-2024 Patient encounter procedure Mitchell Dubois TOUR SALES REPRESENTATIVE-C -[facility] Work Phone: Start: 11-03-2024 End: 11-03-2024 ambulatory Mitchell Dubois NP Facility:[facility] Start: 09-28-2024 End: 09-28-[address] Eduard Henley MD -[facility] Start: 09-28-2024 End: 09-28-2024 ambulatory Eduard Henley Facility:[facility] Start: 09-03-2024 ambulatory Eduard Henley Faci lity:[facility] Start: 09-03-2024 Non-patient / Non-visit Dr. Francheska Ray MD -[facility] Work Phone: Start: 09-03-2024 End: 09-03-[address] Eileen Ray MD -[facility] Work Phone: Start: 09-03-2024 End: 09-03-2024 Emergency department patient visit Dr. Jesus Romero DO -Emergency Department Work Phone: Start: 09-03-2024 End: 09-03-2024 ambulatory Eduard Henley Facility:[facility] Start: 08-06-2024 End: 08-06-[address] Jose Lockwood MD -[facility] Work Phone: Start: 08-06-2024 End: 08-06-2024 ambulatory Eduard Henley Facility:[facility] Start: 05-18-2024 ambulatory Eduard Henley Faci lity:[facility] Start: 10-02-2023 Non-patient / Non-visit Dr. Mario Henley Work Phone: [facility] Start: 10-02-2023 End: 10-02-2023 Admission to same day surgery center Dr. Sergei Henley Work Phone: [facility] Work Phone: Start: 10-02-2023 End: 10-02-[address] Sergei Henley Work Phone: [facility] Work Phone: Start: 09-11-2023 End: 09-11-[address] Sergei Henley Work Phone: [facility] Work Phone: Start: 09-10-2023 End: 09-10-[address] Sergei Henley Work Phone: [facility] Work Phone: Start: 09-10-2023 End: 09-10-[address] Sergei Henley Work Phone: [facility] Start: 07-17-2023 End: 07-17-[address] Sergei Henley Work Phone: [facility] Work Phone: Start: 07-07-2023 End: 07-07-[address] Sergei Henley Work Phone: [facility] Work Phone: Start: 07-07-2023 End: 07-07-[address] Sergei Henley Work Phone: [facility] Work Phone: Start: 06-15-2023 Non-patient / Non-visit Dr. Mario Henley Work Phone: [facility] Work Phone: Start: 06-14-2023 End: 06-15-2023 Evaluation and management of inpatient Dr. Sergei Henley Work Phone: [facility] Work Phone: Start: 06-14-2023 End: 06-15-[address] Sergei Henley Work Phone: [facility] Work Phone: Start: 06-02-2023 End: 06-02-[address] Sergei Henley Work Phone: [facility] Work Phone: Start: 06-02-2023 End: 06-02-[address] Sergei Henley Work Phone: [facility] Start: 05-20-2023 End: 05-20-[address] Sergei Henley Work Phone: [facility] Work Phone: Start: 04-25-2023 Non-patient / Non-visit Dr. Mario Henley Work Phone: [facility] Work Phone: Start: 04-25-2023 Non-patient / Non-visit Dr. Mario Henley Work Phone: [facility] Start: 04-24-2023 Non-patient / Non-visit Dr. Mario Henley Work Phone: [facility] Start: 04-23-2023 Non-patient / Non-visit Dr. Mario Henley Work Phone: [facility] Work Phone: Start: 04-23-2023 End: 04-25-2023 Evaluation and management of inpatient [facility] Work Phone: Start: 05-06-2022 End: 05-06-2022 ambulatory [facility] Work Phone: Start: 05-06-2022 End: 05-06-2022 Patient encounter procedure [facility] Start: 10-31-2021 Non-patient / Non-visit Dr. Mario Henley Work Phone: [facility] Start: 10-30-2021 Non-patient / Non-visit Dr. Mario Henley Work Phone: [facility] Start: 10-30-2021 End: 10-31-2021 Evaluation and management of inpatient [facility]. Sergei [facility] Start: 08-20-2021 End: 08-20-[address] Sergei Henley Work Phone: [facility] Procedures Date Procedure [...] med using the TPSA assay method for [employer] chemistry system. Values obtained with differentassay methods [...] Date Care Activity Detail Author Start: 01-22-2025 [facility] Start: 01-22-2025 End: 01-22-2025 [facility] Start: 09-03-2024 [facility] Start: 02-22-2024 Patient discharge [facility] Start: 06-15-2023 Patient discharge [facility] Start: 06-14-2023 Following clinical pathway protocol [facility] Start: 06-14-2023 Assessment of risk of venous thromboembolism [facility] Start: 06-14-2023 Inhalation therapy procedure [facility] Start: 06-14-2023 Insertion of catheter into peripheral vein [facility] Start: 06-14-2023 Providing care according to standard [facility] Start: 06-14-2023 Provision of activity privileges [facility] Start: 06-14-2023 [facility] Start: 06-14-2023 Admission procedure [facility] Start: 06-14-2023 Verification routine [facility] Start: 06-14-2023 Hospital admission, emergency, from emergency room, medical nature [facility] Start: 04-25-2023 Patient referral [facility] Work Phone: Start: 04-25-2023 Patient discharge [facility] Start: 04-24-2023 Cardiac monitoring [facility] Start: 04-24-2023 Cardiac rehabilitation - phase 1 [facility] Start: 04-24-2023 Cardiac rehabilitation - phase 2 [facility] Start: 04-24-2023 Patient discharge [facility] Start: 04-24-2023 Systemic arterial pressure monitoring [facility] Start: 04-24-2023 End: 04-24-2023 Taking patient vital signs [facility] Start: 04-24-2023 Vascular disease risk assessment [facility] Start: 04-24-2023 Vital signs measurements [facility] Start: 04-24-2023 End: 04-24-2023 [facility] Start: 04-24-2023 End: 04-24-2023 Notification of physician [facility] Start: 04-24-2023 Patient education [facility] Start: 04-24-2023 Provision of activity privileges [facility] Start: 04-24-2023 Pulse taking [facility] Start: 04-24-2023 Wound care [facility] Start: 04-24-2023 Referral to leader writer [facility] Start: 04-24-2023 Following clinical pathway protocol [facility] Start: 04-24-2023 Assessment of risk of venous thromboembolism [facility] Start: 04-24-2023 Cardiac monitoring [facility] Start: 04-24-2023 Catheterization of vein [facility] Start: 04-24-2023 Elevation of head of bed [facility] Start: 04-24-2023 Exercises [facility] Start: 04-24-2023 Implementation of planned interventions [facility] Start: 04-24-2023 Insertion of catheter into peripheral vein [facility] Start: 04-24-2023 Measuring intake and output [facility] Start: 04-24-2023 Notification of physician [facility] Start: 04-24-2023 Providing care according to standard [facility] Start: 04-24-2023 Provision of activity privileges [facility] Start: 04-24-2023 Referral to occupational therapist [facility] Start: 04-24-2023 Referral to service [facility] Start: 04-24-2023 Speech therapy assessment [facility] Start: 04-24-2023 Tobacco use cessation education [facility] Start: 04-24-2023 [facility] Start: 04-24-2023 Vital signs measurements [facility] Start: 04-23-2023 Electrocardiographic procedure [facility] Start: 04-23-2023 Verification routine [facility] Start: 04-23-2023 Admission procedure [facility] Start: 04-23-2023 Oxygen therapy [facility] Start: 04-23-2023 [facility] Start: 01-26-2018 End: 01-26-2018 Appointment Appointment [facility] Work Phone: Start: 08-12-2017 End: 08-12-2017 Appointment Appointment [facility] Phone: Start: 06-03-2017 End: 12-06-2016 *Hepatic Function Panel *Hepatic Function Panel [facility] Phone: Start: 06-03-2017 End: 12-06-2016 Lipid panel [AGGREGATE] *Lipid Profile CC PCP [facility] Work Phone: Start: 06-03-2017 End: 12-06-2016 *Hepatic Function Panel *Hepatic Function Panel [facility] Work Phone: Start: 06-03-2017 End: 12-06-2016 Lipid panel [AGGREGATE] *Lipid Profile CC PCP [facility] Work Phone: Start: 01-20-2017 End: 01-20-2017 Appointment Appointment [facility] Work Phone: Start: 01-20-2017 End: 01-20-2017 Appointment Appointment [facility] Work Phone: Start: 01-20-2017 End: 01-20-2017 Follow Up Appt 6 months Follow Up Appt 6 months [facility] Work Phone: Start: 01-20-2017 End: 01-20-2017 MMM MMM [facility] Work Phone: Start: 11-28-2016 End: 12-02-2016 *Hepatic Function Panel *Hepatic Function Panel [facility] Work Phone: Start: 11-28-2016 End: 12-02-2016 Lipid panel [AGGREGATE] *Lipid Profile CC PCP [facility] Work Phone: Start: 11-28-2016 End: 12-02-2016 *Hepatic Function Panel *Hepatic Function Panel [facility] Work Phone: Start: 11-28-2016 End: 12-02-2016 Lipid panel [AGGREGATE] *Lipid Profile CC PCP [facility] Work Phone: Start: 07-09-2016 End: 07-09-2016 Follow Up Appt 6 months Follow Up Appt 6 months [facility] Work Phone: Start: 07-09-2016 End: 07-09-2016 PFM PFM [facility] Work Phone: Start: 07-09-2016 End: 07-09-2016 Follow Up Appt 6 months Follow Up Appt 6 months [facility] Work Phone: Start: 07-09-2016 End: 07-09-2016 PFM PFM [facility] Work Phone: Start: 05-03-2016 End: 05-30-2016 *Hepatic Function Panel *Hepatic Function Panel [facility] Work Phone: Start: 05-03-2016 End: 05-30-2016 Lipid panel [AGGREGATE] *Lipid Profile CC PCP [facility] Work Phone: Start: 05-03-2016 End: 05-30-2016 *Hepatic Function Panel *Hepatic Function Panel [facility] Work Phone: Start: 05-03-2016 End: 05-30-2016 Lipid panel [AGGREGATE] *Lipid Profile CC PCP [facility] Work Phone: Start: 01-05-2016 End: 01-05-2016 Follow Up Appt 6 months Follow Up Appt 6 months [facility] Work Phone: Start: 01-05-2016 End: 01-05-2016 MMM MMM [facility] Work Phone: Start: 01-05-2016 End: 01-05-2016 Follow Up Appt 6 months Follow Up Appt 6 months [facility] Work Phone: Start: 01-05-2016 End: 01-05-2016 MMM MMM [facility] Work Phone: Start: 10-31-2015 End: [...] w/least 12 lds w/i&r EKG (In office) [facility] Work Phone: Start: 05-05-2015 End: 05-05-2015 Follow Up Appt 6 months Follow Up Appt 6 months [facility] Work Phone: Start: 05-05-2015 End: 05-01-2015 Lipid panel [AGGREGATE] *Lipid Profile CC PCP [facility] Work Phone: Start: 05-05-2015 End: 05-30-2016 PFM PFM [facility] Work Phone: Start: 05-05-2015 End: 05-01-2015 *Hepatic Function Panel *Hepatic Function Panel [facility] Work Phone: Start: 05-05-2015 End: 05-30-2016 Electrocardiogram, complete EKG (In office) [facility] Work Phone: Start: 05-05-2015 End: 05-05-2015 Follow Up Appt 6 months Follow Up Appt 6 months [facility] Work Phone: Start: 05-05-2015 End: 05-01-2015 Lipid panel [AGGREGATE] *Lipid Profile CC PCP [facility] Work Phone: Start: 05-05-2015 End: 05-30-2016 PFM PFM [facility] Work Phone: Start: 11-04-2014 End: 04-26-2015 *Hepatic Function Panel *Hepatic Function Panel [facility] Work Phone: Start: 11-04-2014 End: 04-26-2015 Follow Up Appt 6 months Follow Up Appt 6 months [facility] Work Phone: Start: 11-04-2014 End: 04-26-2015 Lipid panel [AGGREGATE] *Lipid Profile CC PCP [facility] Work Phone: Start: 11-04-2014 End: 04-26-2015 MMM MMM [facility] Work Phone: Start: 11-04-2014 End: 04-26-2015 *Hepatic Function Panel *Hepatic Function Panel [facility] Work Phone: Start: 11-04-2014 End: 04-26-2015 Follow Up Appt 6 months Follow Up Appt 6 months [facility] Work Phone: Start: 11-04-2014 End: 04-26-2015 Lipid panel [AGGREGATE] *Lipid Profile CC PCP [facility] Work Phone: Start: 11-04-2014 End: 04-26-2015 MMM MMM [facility] Work Phone: Start: 10-31-2014 End: 11-03-2014 *Hepatic Function Panel *Hepatic Function Panel [facility] Work Phone: Start: 10-31-2014 End: 11-03-2014 Lipid panel [AGGREGATE] *Lipid Profile CC PCP [facility] Work Phone: Start: 10-31-2014 End: 11-03-2014 *Hepatic Function Panel *Hepatic Function Panel [facility] Work Phone: Start: 10-31-2014 End: 11-03-2014 Lipid panel [AGGREGATE] *Lipid Profile CC PCP [facility] Work Phone: Start: 05-02-2014 End: 04-26-2015 Follow Up Appt 6 months Follow Up Appt 6 months [facility] Work Phone: Start: 05-02-2014 End: 04-26-2015 PFM PFM [facility] Work Phone: Start: 05-02-2014 End: 04-26-2015 Follow Up Appt 6 months Follow Up Appt 6 months [facility] Work Phone: Start: 05-02-2014 End: [...] 6 months Follow Up Appt 6 months [facility] Work Phone: Start: 10-25-2013 End: 11-09-2013 Lipid panel [AGGREGATE] *Lipid Profile CC PCP [facility] Work Phone: Start: 10-25-2013 End: [...] stress test -exercise Nuclear stress test -exercise [facility] Work Phone: Start: 05-11-2013 End: 06-07-2013 *Hepatic Function Panel *Hepatic Function Panel [facility] Work Phone: Start: 05-11-2013 End: 06-07-2013 Lipid panel [AGGREGATE] *Lipid Profile [facility] Work Phone: Start: 05-11-2013 End: 06-07-2013 *Hepatic Function Panel *Hepatic Function Panel [facility] Work Phone: Start: 05-11-2013 End: 06-07-2013 Lipid panel [AGGREGATE] *Lipid Profile [facility] Work Phone: Start: 01-11-2013 End: 01-11-2013 Follow Up Appt 6 months Follow Up Appt 6 months [facility] Work Phone: Start: 01-11-2013 End: 01-11-2013 PFM PFM [facility] Work Phone: Start: 01-11-2013 End: 01-11-2013 Follow Up Appt 6 months Follow Up Appt 6 months [facility] Work Phone: Start: 01-11-2013 End: 01-11-2013 PFM PFM [facility] Work Phone: Start: 11-09-2012 End: 11-11-2012 *Hepatic Function Panel *Hepatic Function Panel [facility] Work Phone: Start: 11-09-2012 End: 11-11-2012 Lipid panel [AGGREGATE] *Lipid Profile [facility] Work Phone: Start: 11-09-2012 End: 11-11-2012 *Hepatic Function Panel *Hepatic Function Panel [facility] Work Phone: Start: 11-09-2012 End: 11-11-2012 Lipid panel [AGGREGATE] *Lipid Profile [facility] Work Phone: Start: 06-01-2012 End: 06-10-2012 *Hepatic Function Panel *Hepatic Function Panel [facility] Work Phone: Start: 06-01-2012 End: 12-30-2012 Follow Up Appt 6 months Follow Up Appt 6 months [facility] Work Phone: Start: 06-01-2012 End: 06-10-2012 Lipid panel [AGGREGATE] *Lipid Profile [facility] Work Phone: Start: 06-01-2012 End: 06-10-2012 *Hepatic Function Panel *Hepatic Function Panel [facility] Work Phone: Start: 06-01-2012 End: 12-30-2012 Follow Up Appt 6 months Follow Up Appt 6 months [facility] Work Phone: Start: 06-01-2012 End: 06-10-2012 Lipid panel [AGGREGATE] *Lipid Profile [facility] Work Phone: Start: 11-28-2011 End: 11-28-2011 Follow Up Appt 6 months Follow Up Appt 6 months [facility] Work Phone: Start: 11-28-2011 End: 11-28-2011 Follow Up Appt 6 months Follow Up Appt 6 months [facility] Work Phone: Lipid 1996 panel - S sharon or Plasma [facility] Patient Education [facility] Work Phone: [facility] referral [facility] Work Phone: Troponin T.cardiac [Mass/volume] in Serum or Plasma by High sensitivity method [facility] Immunizations Immunization Date Immunization Notes Care Provider Fa cili 05-11-2021 Influenza, high dose seasonal Dr. Eduard Henley MD Work Phone: [facility] 05-11-2021 influenza, high dose seasonal, preservative-free Dr. Sergei Henley Work Phone: [facility] 06-25-[address] Sergei Henley Work Phone: [facility] 01-11-2014 tetanus and diphther ia toxoids, adsorbed, preservative free, for adult use (2 Lf of tetanus toxoid and 2 Lf of diphtheria toxoid) Dr. Seregi Henley Work Phone: [facility] Payers Date Payer Category Payer Private Health Insurance [id number] 2024 Private Health Insurance [id number] 2024 Self-pay [id number] 2011 Private Health Insurance [id number] Unknown [id number] 2.16.8 [id number] Unknown [id number] 2.16.8 [id number] Unknown [id number] 2.16.8 [id number] Unknown [id number] 2.16.8 [id number] Unknown [id number] 2.16.8 [id number] Unknown [id number] 2.16.8 [id number] Unknown [id number] 2.16.8 [id number] Unknown [id number] 2.16.8 [id number] Unknown [id number] 2.16.8 [id number] Unknown [id number] 2.16.8 [id number] Unknown [id number] 2.16.8 [id number] Unknown [id number] 2.16.8 [id number] Unknown [id number] 2.16.8 [id number] Social History Date Type Detail Facility Start: 10-30-2021 End: 09-25-2023 Tobacco smoking status NHIS Unknown if ever smoked [facility] Start: 10-23-2017 Heavy [facility] Start: 10-23-2017 None [facility] Start: 10-23-2017 Spouse/ Signif icant Other [facility] Start: 10-23-2017 Cigars [facility] Start: 1965 Sex Assigned At Male W [facility] Start: 04-25-2023 - [facility] Start: 10-27-2024 End: 01-22-2025 Tobacco smoking status NHIS Ex-smoker (finding) [facility] Start: 11-07-2024 Sex Male (finding) [facility] Sex Male [facility] Medical Equipment Procedure Code Equipment Code Equipment Origin al Text Equipment Identifier Dates Drug-eluting coronary artery stent, dta-zgivdvbxyilwo-vf lymer-coated ()[id number] 24 FDA Start: 04-24-2023 Drug-eluting coronary artery stent, kna-wiozsitsmnopy-ps lymer-coated ()[id number] 02 FDA Start: 04-24-2023 Goals Date Patient Goal Desired Activity /State Functional Status Date Assessment Result Facility 06-15-2023 Functional status Activity Ability Indepe ndent [facility] Work Phone: 04-25-2023 Functional status Ambulates;Up a d jovon;Bathroom Privilege [facility] Work Phone: 10-31-2021 Functional status Independent [facility] Work Phone: Mental Status Date Assessment Result Facility 01-22-2025 Cognitive function Voice/Name [facility] Work Phone: 09-03-2024 Cognitive function Voice/Name [facility] Work Phone: 10-02-2023 Cognitive function Voice/Name [facility] Work Phone: 06-14-2023 Cognitive function Appropriate;Cooperativ e [facility] Work Phone: 04-25-2023 Cognitive function Voice/Name [facility] Work Phone: 04-23-2023 Cognitive function Voice/Name [facility] Work Phone: 10-31-2021 Cognitive function Voice/Name [facility] Work Phone: 10-30-2021 Cognitive function Voice/Name [facility] Work Phone: Clinical Notes 06-11-2010 to 05-05-2025 Note Date & Type Note Facility 05-05-2025 Progress note [facility] 01-22-2025 Discharge summary [facility] 01-22-2025 Discharge summary [facility] 01-22-2025 Radiology Diagnostic study note [facility] Imaging Services [address], [place] [address] Chest 1 View (Portable) MR#: [id number] Acct: [id number] Name: JOVANY MUÑIZ Rep #: [id number] : 1965 M 59 From: Shanelle Ramos MD PCP: Dr. Eduard Henley MD Status: REG ER Study:Chest 1 View (Portable) Date of Exam: 01/22/25 Exam# [id number] Ordering Dr: Dave Mercer MD PROCEDURE: CHEST 1 VIEW (PORTABLE) 01/22/2025 REASON FOR EXAM: CHEST PAIN TECHNIQUE: Frontal view of the chest. COMPARISON: Chest radiograph 09/03/2024. FINDINGS: Hardware: None. Heart: The heart size is normal. Lungs: No focal consolidation, pleural effusion or pneumothorax. Bones: Degenerative changes are identified within the thoracic spine. RAD/Chest 1 View (Portable) IMPRESSION: Negative Chest. Reading Location: [facility] CC: Dr. Eduard Henley MD; Dr. Robert Mercer MD ~ Learning Technologist: Signed [facility] 01-22-2025 Discharge summary Note Date/Time January 22, 2025 5:53pm [facility] Medical Records Department [address] [place] [address] Emergency Department Summary 01/22/25 MR#: [id number] Acct: [id number] Name: JOVANY MUÑIZ Rep #:[id number] : 1965 59 From: Robert Mercer [...] TAD Risk Factors: Negative for Marfan's Syndrome [facility] Medical History Wears partial dentures High cholesterol Heartburn Gastric reflux History of diverticulitis Former smoker History of heart attack History of echocardiogram History of stress test Hypertension Cardiology follow-up encounter Sigmoid diverticulitis History of coronary artery disease Presence of stent in coronary artery (04/25/23) Essential hypertension HLD (hyperlipidemia) Old myocardial infarction 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 5 out of 5 check examiner strength. Equal and symmetrical radial pulses. Dorsi [...] % (Auto) 64.2 Lymph % (Auto) 22.1 [place] % (Auto) 10.1 H Eos % (Auto) [...] 01/22/25 14:25 IMPRESSION: Negative Chest. Reading Location: [facility] Chest x-ray, portable, single view interpreted by myself shows normal cardiac silhouette. Normal mediastinum. No goiter knob. Normal lung osman. No acuteprocess. Rhythm Strip Rhythm Strip: Sinus Rhythm Rate: 88 Ectopy: None EKG Initial EKG: Attestation: I personally reviewed and interpreted this EKG as follows: Interpretation: Sinus Rhythm and No Acute Injury Pattern Comments: Normal sinus rhythm rate 88 no acute signs of GA or ischemia. Discharge Plan Triage Chief Complaint: Chest Pain ED Provider: Robert Mercer Dx/Rx/DC Orders Clinical Impression: Chest pain, History of coronary artery disease, History of GA (myocardial infarction) Instructions: ED Chest Pain, Uncertain [...] bad we can find today. Print Language: Burkinan Disposition Disposition: Home, Self Care What to do if you have Problems For any increased pain, shortness of breath, bleeding, nausea or vomiting, chestpain, or any unexpected problems, contact your Primary Care Provider. Call [facility] ([phone]) or report to the closest Emergency Room. Call 911 if necessary. 01/22/251752 <Electronically signed by Robert Mercer MD> [facility] Signature (if applicable): CC: Dr. Eduard Henley MD ~ Signed [facility] Work Phone: 1(247) 487-585406-14-2025 Discharge summary Author Robert Mercer [facility] Note Date/Time January 22, 2025 10:1 6pm [facility] Medical Records Department [address] [place] [address] Emergency Department Summary 01/22/25 MR#: [id number] Acct: [id number] Name: JOVANY MUÑIZ Rep #:[id number] : 1965 59 From: Robert Mercer MD PCP: Dr. Eduard Henley MD Status :REG ER Location: ED HPI History of Present Illness Chief Complaint: Allergic Reaction Informant: patient and spouse/S.O. Onset/Context/Timing Onset: Today Context: Sudden Onset Timing: Continuous Current Severity: Moderate Maximum Severity: Moderate Narrative Narrative: 59-year-old male history of CAD GA stent. 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 Print Language: Burkinan Disposition Disposition: Home, Self Care What to do if you have Problems For any increased pain, shortness of breath, bleeding, nausea or vomiting, chestpain, or any unexpected problems, contact your Primary Care Provider. Call [facility] ([phone]) or report to the closest Emergency Room. Call 911 if necessary. 01/22/256 <Electronically signed by Robert Mercer MD> Cosigner Signature (if applicable): CC: Dr. Eduard Henley MD ~ Signed [facility] Work Phone: 1(831) 636-223304-01-2025 Evaluation note* Diagnosis Onset Date Resolution Status Admit Date Encounter for examination required by Department of 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) acute November 09, 2024 5:56am [facility] Work Phone: 1(243) 550-796712-27-2024 Evaluation note* Diagnosis Onset Date Resolution Status Admit Date HLD (hyperlipidemia) chronic Dece mber 2023 1:33pm Presence of coronary angioplasty implant and graft April 25, 2023 chronic August 062023 1:33pm [facility] Work Phone: 1(944) 362-355902-22-2024 Procedure [facility] 10-02-2023 Procedure [facility]02-22-2024 Procedure note [facility]02-22-2024 Procedure [facility] 06-15-2023 Progress note Author Rommel Youssef [facility] June 15, 2023 10:24am Note Date/Time June 15, 2023 7 :38am [facility] Medical Records Department [address] [place] [address] Progress Note - Hospitalist 06/15/23 0733 MR#: [id number] Acct: [id number] Name: JOVANY MUÑIZ Rep #:[id number] : 1965 57 From: Rommel Youssef DO PCP: Dr. Sergei Henley MD Status: ADM FELICITA Location: MD3 [id number] Subjective Subjective Feeling better. Tolerated full liquid [...] 83.8 H, Lymph % (Auto) 10.2 L, [place] % (Auto) 2.7, Eos % (Auto) 2.5, [...] Clarity Clear, Urine pH 7.0, Ur Specific [place] 1.010, Urine Protein Negative, Urine Glucose (UA) [...] 17:53 EDT Reading Location ID and State: [facility] / [place] Tel , Service support , Physical Exam [...] Cosigner Signature (if applicable): CC: ~ Signed [facility] Work Phone: 1(543) 282-630611-04-2023 History and physical note Author Meliza Ramírez [facility] June 14, 2023 7:41pm Note Date/Time June 14, 2023 7 :41pm [facility] Medical Records Department [address] [place] [address] H&P Exam - Hospitalist 06/14/231930 MR#: [id number] Acct: [id number] Name: JOVANY MUÑIZ Rep #:[id number] : 1965 57 From: Meliza Ramírez MD PCP: Dr. Sergei Henley MD Status: REG ER Location: ED HPI - General General Date of Admission: 06/14/23 Date of Service: 06/14/23 Chief Complaint: Abdominal pain HPI Narrative JOVANY MUÑIZ, is a 57-year-old male history of hypertension, coronary artery disease with stent placement 2 months ago who presented to [facility] 06/14/2023 with abdominal pain x1 day. [...] denied any withdrawal symptoms at that time. 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 (04/25/23) Essential hypertension History of coronary artery disease HLD (hyperlipidemia) Old myocardial infarction Presence of stent in coronary artery (04/25/23) Home Medications aspirin 81 mg tablet,delayed release (Adult Low Dose Aspirin) 81 mg PO QDAY [facility] 08/06/17 [History Last Taken 10/30/21] buspirone 5 [...] subcutaneous pen injector (Repatha SureClick) 140 mg [id number] #2 mL 06/13/23 [Rx Last Taken Unknown] [...] 83.8 H, Lymph % (Auto) 10.2 L, [place] % (Auto) 2.7, Eos % (Auto) 2.5, [...] Clarity Clear, Urine pH 7.0, Ur Specific [place] 1.010, Urine Protein Negative, Urine Glucose (UA) [...] documentation, 56minutes Charges/Coding Visit Charges Inpatient E&M: 29931 Init Hosp L2 06/14/231940 <Electronically signed by Meliza Ramírez MD> Cosigner Signature (if applicable): CC: Dr. Sergei Henley MD; Dr. Meliza Ramírez MD~ Signed [facility] Work Phone: 1(801) 916-513311-04-2023 Discharge summary Author Donta Swenson [facility] June 14, 2023 7:24pm Note Date/Time June 14, 2023 4 :52pm [facility] Medical Records Department [address] [place] [address] Emergency Department Summary 06/14/23 MR#: [id number] Acct: [id number] Name: JOVANY MUÑIZ Rep #:[id number] : 1965 57 From: Donta Swenson [...] statins. Few months ago he had an GA/stent placement, and was restarted on a statin. [...] yesterday and he is not passing gas. 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 (04/25/23) Essential hypertension History of coronary artery disease HLD (hyperlipidemia) Old myocardial infarction Presence of stent in coronary artery (04/25/23) Home Medications aspirin 81 mg tablet,delayed release (Adult Low Dose Aspirin) 81 mg PO QDAY [facility] 08/06/17 [History Last Taken 10/30/21] buspirone 5 [...] subcutaneous pen injector (Repatha SureClick) 140 mg [id number] #2 mL 06/13/23 [Rx Last Taken Unknown] [...] 83.8 H Lymph % (Auto) 10.2 L [place] % (Auto) 2.7 Eos % (Auto) 2.5 [...] Clarity Clear Urine pH 7.0 Ur Specific [place] 1.010 Urine Protein Negative Urine Glucose (UA) [...] pain, Sigmoid diverticulitis Disposition Disposition: Acute Care [facility] What to do if you have Problems For any increased pain, shortness of breath, bleeding, nausea or vomiting, chestpain, or any unexpected problems, contact your Primary Care Provider. Call [facility] ([phone]) or report to the closest Emergency Room. Call 911 if necessary. 06/14/231923 <Electronically signed by Donta Swenson MD> Cosigner Signature (if applicable): CC: Dr. Sergei Henley MD ~ Signed [facility] Work Phone: 1(674) 770-518811-04-2023 Discharge summary Author Donta [facility] June 14, 2023 7:24pm Note Date/Time June 14, 2023 4 :52pm [facility] Medical Records Department [address] [place] [address] Emergency Department Summary 06/14/23 MR#: [id number] Acct: [id number] Name: JOVANY MUÑIZ Rep #:[id number] : 1965 57 From: Donta Swenson [...] statins. Few months ago he had an GA/stent placement, and was restarted on a statin. [...] yesterday and he is not passing gas. 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 (04/25/23) Essential hypertension History of coronary artery disease HLD (hyperlipidemia) Old myocardial infarction Presence of stent in coronary artery (04/25/23) Home Medications aspirin 81 mg tablet,delayed release (Adult Low Dose Aspirin) 81 mg PO QDAY [facility] 08/06/17 [History Last Taken 10/30/21] buspirone 5 [...] subcutaneous pen injector (Repatha SureClick) 140 mg [id number] #2 mL 06/13/23 [Rx Last Taken Unknown] [...] 83.8 H Lymph % (Auto) 10.2 L [place] % (Auto) 2.7 Eos % (Auto) 2.5 [...] Clarity Clear Urine pH 7.0 Ur Specific [place] 1.010 Urine Protein Negative Urine Glucose (UA) [...] Sigmoid diverticulitis Disposition Disposition: Acute Care Hospital [facility] What to do if you have Problems For any increased pain, shortness of breath, bleeding, nausea or vomiting, chestpain, or any unexpected problems, contact your Primary Care Provider. Call [facility] ([phone]) or report to the closest Emergency Room. Call 911 if necessary. 06/14/231923 <Electronically signed by Donta Swenson MD> Cosigner Signature (if applicable): CC: Dr. Sergei Henley MD ~ Signed [facility] Work Phone: 1(209) 171-957609-15-2023 Discharge summary Author Rommel Yosusef [facility] April 25, 2023 12:09pm Note Date/Time April 25, 2023 12:06pm [facility] Medical Records Department [address] [place] [address] Discharge Summary 04/25/23 1203 MR#: [id number] Acct: [id number] Name: JOVANY MUÑIZ Rep #:[id number] : 1965 57 From: Rommel Youssef DO PCP: Dr. Sergei Henley MD Status: ADM IN Location: [place] [address] Providers Date of Admission: 04/23/23 Primary Care [...] Clear Calc 89.08, Est GFR (MDRD) Af Upbw445, Est GFR (MDRD) Non-Af 83, BUN/Creatinine Ratio [...] not ordered:: Drug Interaction Done w/ Acute GA measure.: Yes Documented LVEF (%): 60 Discharge [...] 90 Patient Comments: Referrals / Follow Up: [facility] [Provider Group] - Within 1 Month Sergei Henley MD [Primary Care Provider] - Within 2 Weeks Disposition Disposition (needs filled in before D/C Order can be placed): Home, Self Care Charges/Coding Visit Charges Inpatient E&M: 28162 Disch Hosp >30min 04/25/23 1209 <Electronically signed by Rommel Youssef DO> Cosigner Signature (if applicable): CC: Dr. Sergei Henley MD; Dr. Rommel Youssef DO~ Signed [facility] Work Phone: 1(656) 332-541209-15-2023 Progress note Author Rommel Youssef [facility] April 25, 2023 12:03pm Note Date/Time April 25, 2023 8:51am [facility] Medical Records Department [address] [place] [address] Progress Note - Hospitalist 04/25/23 0850 MR#: [id number] Acct: [id number] Name: JOVANY MUÑIZ Rep #:[id number] : 1965 57 From: Rommel Youssef DO PCP: Dr. 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 (04/23/23) Chest [...] Clear Calc 89.08, Est GFR (MDRD) Af Hkus526, Est GFR (MDRD) Non-Af 83, BUN/Creatinine Ratio [...] Cosigner Signature (if applicable): CC: ~ Signed [facility] Work Phone: 1(308) 158-213609-15-2023 Evaluation note* Diagnosis Onset Date Resolution Status Admit Date Essential hypertension chronic Se pt2024 8:12am HLD (hyperlipidemia) chronic Apr 8:12am Presence of coronary angioplasty implant and graft April 25, 2023 chronic April 122024 8:12am [facility] Work Phone: 1(701) 413-167509-15-2023 Progress note Author Jose Lockwood [facility] April 25, 2023 7:23am Note Date/Time April 25, 2023 7:23am [facility] Medical Records Department [address] [place] [address] Progress Note - Cardiology 04/25/2320 MR#: [id number] Acct: [id number] Name: JOVANY MUÑIZ Rep #:[id number] : 1965 57 From: Jose Lockwood MD PCP: Dr. Sergei Henley MD Status: ADM IN Location: [place] [address] Subjective Subjective Patient seen and evaluated appears [...] hr 04/24/23 07:02: Troponin I High Sens 84469 H* 04/24/23 10:33: Activated Clotting Time 197 [...] Orientation: awake and alert Coordination / Balance: qdncgr-uk-ferk test normal and kuiq-um-vgld test normal Speech: speech normal Psych affect [...] intensity statin. 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 Sergei Henley MD Status: ADM IN Location: [place] [address] Subjective Subjective Feels well. Some mild chest [...] % (Auto) 48.0, Lymph % (Auto) 32.1, [place]% (Auto) 12.1 H, Eos % (Auto) 6.3 [...] % (Auto) 64.2, Lymph % (Auto) 20.9, [place]% (Auto) 9.2, Eos % (Auto) 4.3, Baso [...] 106, Calcium 9.2, Troponin I High Sens 51135 H*, Triglycerides 258 H, Cholesterol 210 H, LDL Cholesterol 87, VLDL Cholesterol 52 H, HDL Cholesterol 71 04/24/23 07:02: Troponin I High Sens 80507 H* Radiography Diagnostic Testing: Radiology Impression Brain [...] Reading Location ID and State: 994 / [employer] , Service support , Head/Neck CTA 04/23/23 21:34 IMPRESSION: Normal CTA Head with contrast. Moderate (60%) carotid stenosis bilaterally. Patent vertebral arteries bilaterally. Electronically Signed: Kris White MD at 22:05 EDT Reading Location ID and State: 994 / [employer] [employer] , Service support , ADDENDUM: 04/23/233 IMPRESSION: Normal CTA Head with contrast. Moderate (60%) carotid stenosis bilaterally. Patent vertebral arteries bilaterally. N.B. : The above Results were Read Back by Kris White MD to Perez Dave DO, and understanding confirmed on 04/23/2023 22:06:20 (ET). Electronically Signed: Kris White MD at 22:05 EDT Reading Location ID and State: 994 / [employer] , Service support , Chest X-Ray 04/23/23 22:14 IMPRESSION: Normal x-ray examination of the chest. Electronically Signed: Kris White MD at 22:32 EDT Reading Location ID and State: 9[address] / [employer] , Service support , Physical Exam [...] Orientation: awake and alert Coordination / Balance: qtryjs-il-ckqn test normal and fsyi-do-ewjo test normal Speech: speech normal Psych affect [...] is anticoagulated. Charges/Coding Visit Charges Inpatient E&M: 81121 Subs Hosp L2 04/24/23 6013 <Electronically signed by Rommel Youssef DO> Cosigner Signature (if applicable): CC: ~ Signed [facility] Work Phone: 1(913) 118-282309-14-2023 History and physical note Author Ar Torres [facility] April 24, 2023 10:35am Note Date/Time April 23, 2023 11:01pm [facility] Medical Records Department [address] [facility] [place] [address] H&P Exam - Hospitalist 04/23/23 2301 MR#: [id number] Acct: [id number] Name: JVOANY MUÑIZ Rep #:[id number] : 1965 57 From: Ar Torres MD PCP: Dr. Sergei Henley MD Status: ADM IN Location: [place] [id number]- [id number] HPI - General General Date of [...] and patient was not acandidate of thrombolytics. 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 Moderate (60%) carotid stenosis bilaterally. Patent vertebral arteries bilaterally. N.B. : The above Results were Read Back by Kris White MD to Perez Dave DO, and understanding confirmed on 04/23/2023 22:06:20 (ET). Electronically Signed: Kris White MD at 22:05 EDT Reading Location ID and State: 9[address] / [employer] , Service support , Chest X-Ray 04/23/23 22:14 IMPRESSION: Normal x-ray examination of the chest. Electronically Signed: Kris White MD at 22:32 EDT Reading Location ID and State: 994 / [employer] , Service support , Assessment & [...] EKG tracing did not show ST elevation GA. ASA 81 mg p.o. daily; and Plavix [...] documentation, 70minutes. Charges/Coding Visit Charges Inpatient E&M: 86603 Init Hosp L3 04/24/23 1035 <Electronically signed by Ar Torres MD> Cosigner Signature (if applicable): CC: Dr. Sergei Henley MD; Dr. Ar Torres MD~ Signed [facility] Work Phone: 1(478) 454-880109-14-2023 Consult note Author Jose Lockwood [facility] April 24, 2023 10:00am Note Date/Time April 24, 2023 7:34am [facility] Medical Records Department [address] [place] [address] Consultation - Cardiology 04/24/2326 MR#: [id number] Acct: [id number] Name: JOVANY MUÑIZ Rep #:[id number] : 1965 57 From: Jose Lockwood MD PCP: Dr. Sergei Henley MD Status: ADM IN Location: [place] [address] Assessment & Plan Assessment/Plan (1) NSTEMI (non-ST [...] intensity statin. 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 [facility] Medical History (Updated 04/24/23 @ 07:[address] 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 Essential hypertension [...] % (Auto) 48.0, Lymph % (Auto) 32.1, [place]% (Auto) 12.1 H, Eos % (Auto) 6.3 [...] % (Auto) 64.2, Lymph % (Auto) 20.9, [place]% (Auto) 9.2, Eos % (Auto) 4.3, Baso [...] 106, Calcium 9.2, Troponin I High Sens 21536 H*, Triglycerides 258 H, Cholesterol 210 H, LDL Cholesterol 87, VLDL Cholesterol 52 H, HDL Cholesterol 71 Cardiology Labs/Tests 04/23/23 21:30: WBC 5.3, RBC 4.28 L, Hgb 14.0, Hct 42.3, MCV 98.8 H, MCH 32.7 H,MCHC 33.1, Plt Count 226, MPV 9.5, Immature Gran % (Auto) 0.400, Neut % (Auto) 48.0, Lymph % (Auto) 32.1, [place] % (Auto) 12.1 H, Eos % (Auto) [...] % (Auto) 64.2, Lymph % (Auto) 20.9, [place] % (Auto) 9.2, Eos % (Auto) 4.3, [...] Reading Location ID and State: 9[address] / [employer] , Service support , ADDENDUM: 04/23/232201 IMPRESSION: Negative Brain CT without contrast. N.B. : The above Results were Read Back by Kris White MD to Perez Dave DO, and understanding confirmed on 04/23/2023 21:55:56 (ET). Electronically Signed: Kris White MD at 21:54 EDT Reading Location ID and State: 9[address] / [employer] , Service support , Head/Neck CTA 04/23/23 21:34 IMPRESSION: Normal CTA Head with contrast. Moderate (60%) carotid stenosis bilaterally. Patent vertebral arteries bilaterally. Electronically Signed: Kris White MD at 22:05 EDT Reading Location ID and State: 9[address] / [employer] , Service support , ADDENDUM: 04/23/23 [...] Lockwood MD; Dr. Ar Torres MD~ Signed [facility] Work Phone: [phone]) 419-594309-14-2023 Discharge summary Author [facility] April 24, 2023 12:00am Note Date/Time April 23, 2023 9:39pm [facility] Medical Records Department [address] [place] [address] Emergency Department Summary 04/23/23 MR#: [id number] Acct: [id number] Name: JOVANY MUÑIZ Rep #:[id number] : 1965 57 From: Perez Dave DO PCP: Dr. Sergei Henley MD Status: ADM IN Location: [place] [address] HPI History of Present Illness Chief Complaint: [...] in his chest. Slight shortness of breath. 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 Will obtain EKG uponarrival back to the room as well as basic labs and troponin. Patient will be evaluated by stroke neurologist via robot from [facility]. Patient was evaluated by [facility] neurology. When he arrived back [...] of [address] elevation GA noted although the computerthought there was ST elevation GA. CT scan of the brain without contrast [...] % (Auto) 48.0 Lymph % (Auto) 32.1 [place] % (Auto) 12.1 H Eos % (Auto) [...] rate of [address] elevation GA noted. Hehad some nonspecific ST changes. Prior EKG tracings: available for review Prior: Unchanged Discharge Plan Dx/Rx/DC Orders Clinical Impression: Brain TIA, History of coronary artery disease, Chest pain Disposition Disposition: Acute Care Hospital [facility] Discharge Date/Time: 04/23/23 23:43 What to do if you have Problems For any increased pain, shortness of breath, bleeding, nausea or vomiting, chestpain, or any unexpected problems, contact your Primary Care Provider. Call [facility] ([phone]) or report to the closest Emergency Room. Call 911 if necessary. 04/24/23 0000 <Electronically signed by Perez Dave DO> Cosigner Signature (if applicable): CC: Dr. Sergei Henley MD ~ Signed [facility] Work Phone: 1(751) 883-782511-01-2010 Evaluation note* Diagnosis Onset Date Resolution Status Atherosclerotic heart diseas e of marshall coronary artery without angina pectoris chronic Essential hypertension chron ic HLD (hyperlipidemia) chronic Presence of stent in coronary artery June, chronic [facility] Work Phone: 1(233) 152-622611-01-2010 Evaluation note* Diagnosis Onset Date Resolution Status Atherosclerotic heart diseas e of marshall coronary artery without angina pectoris chronic Essential hypertension chron ic HLD (hyperlipidemia) chronic Presence of stent in coronary artery June, chronic Chest pain, atypical acute [facility] Work Phone: Discharge summary Author Rommel Youssef [facility] June 15, 2023 10:31am Note Date/Time June 15, 2023 1 0:26am [facility] Medical Records Department [address] [place] [address] Discharge Summary 06/15/23 [facility] MR#: [id number] Acct: [id number] Name: JOVANY MUÑIZ Rep #:[id number] : 1965 57 From: Rommel Youssef DO PCP: Dr. Sergei Henley MD Status: ADM FELICITA Location: [address] Providers Date of Admission: 06/14/23 Primary [...] Dose Aspirin) 81 mg PO QDAY heart [facility] 08/06/17 buspirone 5 mg tablet 5 [...] subcutaneous pen injector (Repatha SureClick) 140 mg [id number] #2 mL 06/13/23 nitroglycerin 0.4 mg sublingual [...] 83.8 H, Lymph % (Auto) 10.2 L, [place] % (Auto) 2.7, Eos % (Auto) 2.5, [...] Clarity Clear, Urine pH 7.0, Ur Specific [place] 1.010, Urine Protein Negative, Urine Glucose (UA) [...] (Auto) 81.6 H, Lymph % (Auto)10.5 L, [place] % (Auto) 4.6, Eos % (Auto) 2.6, [...] Discharge Diet: Low fat / Low cholesterol ([place] diet, advance as tolerated.) Meaningful Use Info [...] months would recommend following up with a mediation commissioner. Discharge Orders/Prescriptions Prescriptions: New amoxicillin-pot clavulanate 875-125 [...] Qty: 25 3RF Referrals / Follow Up: [facility] [Provider Group] - Within 3 Months Sergei Henley MD [Primary Care Provider] - Within 2 Weeks Disposition Disposition (needs filled in before D/C Order can be placed): Home, Self Care Charges/Coding Visit Charges Inpatient E&M: 09289 Disch Hosp >30min 06/15/23 1031 <Electronically signed by Rommel Youssef DO> Cosigner Signature (if applicable): CC: Dr. Sergei Henley MD; Dr. Rommel Youssef, DO~ Signed [facility] Work Phone: Evaluation noteNo assessment information available [facility] Work Phone: Evaluation note* Diagnosis Onset Date Resolution Status Brain TIA acute Chest pain acute History of coronary artery disease acute [facility] Work Phone: Evaluation note* Diagnosis Onset Date Resolution Status Brain TIA acute Chest pain acute History of coronary artery disease acute NSTEMI (non-ST elevated myocardial infarction) acute Atherosclerotic heart diseas e of marshall coronary artery without angina pectoris chronic Essential hypertension chron ic HLD (hyperlipidemia) [facility] Work Phone: Evaluation note* Diagnosis Onset Date Resolution Status Essential hypertension chron ic HLD (hyperlipidemia) chronic Brain TIA resolved Chest pain resolved NSTEMI (non-ST elevated myoc ardial infarction) resolved Essential hypertension chron ic HLD (hyperlipidemia) chronic Presence of stent in coronary artery April 25, 023 chronic [facility] Work Phone: Evaluation note* Diagnosis Onset [...] in coronary artery April 25, 023 chronic [facility] Work Phone: Evaluation note* Diagnosis Onset Date Resolution Status HLD (hyperlipidemia) chronic Brain TIA resolved Chest pain resolved NSTEMI (non-ST elevated myocardial infarction) resolved HLD (hyperlipidemia) chronic Sigmoid diverticulitis acute Intractable abdominal pain r esolved [facility] Work Phone: Evaluation note* Diagnosis Onset Date Resolution Status Essential hypertension chron ic HLD (hyperlipidemia) chronic Sigmoid diverticulitis acute Essential hypertension chron ic Intractable abdominal pain r esolved GERD (gastroesophageal reflux disease) acute Sigmoid diverticulitis acute Myalgia acute Palpitation acute HLD (hyperlipidemia) chronic Presence of coronary angiopl asty implant and graft April 25, 2023 [facility] Work Phone: Evaluation note* Diagnosis Onset Date Resolution Status Sigmoid diverticulitis acute Essential hypertension chron ic Intractable abdominal pain r esolved GERD (gastroesophageal reflux disease) acute Sigmoid diverticulitis acute Myalgia acute Palpitation acute HLD (hyperlipidemia) chronic Presence of coronary angiopl asty implant and graft April 25, 2023 chronic [facility] Work Phone: History and physical note Author Meliza Ramírez [facility] June 14, 2023 7:41pm Note Date/Time June 14, 2023 7 :41pm [facility] Medical Records Department [address] [place] [address] H&P Exam - Hospitalist 06/14/231930 MR#: [id number] Acct: [id number] Name: JOVANY MUÑIZ Rep #:[id number] : 1965 57 From: Meliza Ramírez MD PCP: Dr. Sergei Henley MD Status: REG ER Location: ED HPI - General General Date of Admission: 06/14/23 Date of Service: 06/14/23 Chief Complaint: Abdominal pain HPI Narrative JOVANY MUÑIZ, is a 57-year-old male history of hypertension, coronary artery disease with stent placement 2 months ago who presented to [facility] 06/14/2023 with abdominal pain x1 day. [...] denied any withdrawal symptoms at that time. 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 (04/25/23) Essential hypertension History of coronary artery disease HLD (hyperlipidemia) Old myocardial infarction Presence of stent in coronary artery (04/25/23) Home Medications aspirin 81 mg tablet,delayed release (Adult Low Dose Aspirin) 81 mg PO QDAY [facility] 08/06/17 [History Last Taken 10/30/21] buspirone 5 [...] subcutaneous pen injector (Repatha SureClick) 140 mg [id number] #2 mL 06/13/23 [Rx Last Taken Unknown] [...] 83.8 H, Lymph % (Auto) 10.2 L, [place] % (Auto) 2.7, Eos % (Auto) 2.5, [...] Clarity Clear, Urine pH 7.0, Ur Specific [place] 1.010, Urine Protein Negative, Urine Glucose (UA) [...] documentation, 56minutes Charges/Coding Visit Charges Inpatient E&M: 16332 Init Hosp L2 06/14/231940 <Electronically signed by Meliza Ramírez MD> Cosigner Signature (if applicable): CC: Dr. Sergei Henley MD; Dr. Meliza Ramírez MD~ Signed [facility] Work Phone: History and physical note Author Olegario Segal [facility] October 02, 2023 7:28am Note Date/Time October 02, 2023 7:28am [facility] Medical Records Department [address] [place] [address] History & Physical Exam 10/02/23 0725 MR#: [id number] Acct: [id number] Name: JOVANY MUÑIZ Rep #:[id number] : 1965 58 From: Olegario Blackburn PCP: Dr. Sergei Henley MD Status: REG [facility] Location: [place] [address] History and Physical Date of Admission: 10/02/23 Date of Service: 07/17/23 MR#: [id number] Acct: [id number] Name: JOVANY MUÑIZ Rep #: [id number] : 1965 Provider: Dr. Olegario Segal MD Age/Sex: 57/M Location: [facility] Status: Signed Intake Vital Signs 06/14/2321:15 07/17/2308:17 Height 6 ft 6 ft Weight: 213 lb 2 oz BMI 28.9 BP 125/88 H Blood Pressure Location Rt brachial Position Sitting Respiration 18 Pulse 78 Pulse Source Monitor Temp 97.2 F L Temp Source Temporal Pulse Oximetry (%) 98 Oxygen Delivery Method room air Intake Visit Reasons: DIVERTICULITIS Chief Complaint: Diverticulitis Supervisor Smoke Control Required: No Is patient in pain?: No Allergies No Known Allergies Allergy (Verified 07/17/23 08:20) Medications aspirin 81 mg tablet,delayed release (Adult Low Dose Aspirin) 81 mg PO QDAY [facility] 08/06/17 [History Confirmed 07/17/23] coenzyme Q10 100 [...] subcutaneous pen injector (Repatha SureClick) 140 mg kjqffhY2Q #2 mL 06/13/23 [Rx Confirmed 07/17/23] nitroglycerin [...] Olegario Segal MD) 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 Olegario Segal MD~ Signed [facility] Work Phone: Hospital Discharge instructions Additional Instructions All your labs, EKG, chest x-ray were unremarkable. Follow-up with your doctor. Return if you are feeling worse. Nothing bad we can find today.[facility] Work Phone: Hospital Discharge instructions Additional Instructions Benadryl as needed for itching. Avoid shrimp or shellfish seems that you have an allergy to it. Follow-up with your doctor as needed.[facility] Work Phone: Progress note Author Mitchell Dubois [facility] Note Date/Time May 05, 2025 9:39am [facility] [address] [place] [address] OFFICE VISIT Date of Service: 05/05/25 MR#: [id number] Acct: [id number] Name: JOVANY MUÑIZ Rep #: [id number] : 1965 Provider: EUGENIA Dubois Age/Sex: 59/M Location: [facility] Status: Signed HPI HPI History of Present Illness Details: This is a 59-year-old white male who presents today for outpatient cardiovascular follow-up regarding a history of underlying CAD, PCI, hyperlipidemia, and hypertension. He was noted to have inferior myocardial infarction with stenting to his obtuse marginal, proximal to mid circumflex, proximal to mid LAD in 2009. 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 Follow Up: 12-15 Months (LOCUM TENENS) Coding Level of Care Code Off vis,est,level [...] Cosigner Signature: Date (if applicable) CC: ~ [facility] Work Phone: Reason for referral (narrative)No reason for referral information available[facility] Work Phone: Chief Complaint and Reason for Visit Chief Complaint 1 y fu CHEST PAIN Reason for Visit Atherosclerotic hear t disease of marshall coronary artery without angina pectoris Essential hypertension HLD (hyperlipidemia) Presence of stent in coronary artery Chief Complaint 1 y fu CHEST PAIN CHEST PAIN CHEST PAIN Reason for Visit Atherosclerotic hear t disease of marshall coronary artery without angina pectoris Essential hypertension [...] elevated myocardial infarction) 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 Essential hypertension HLD (hyperlipidemia) Chief Complaint CHEST PAIN, TIA CHEST PAIN, TIA CHEST PAIN, TIA CHEST PAIN, TIA CHEST PAIN, TIA S/P [facility] 15 Reason for Visit Essential hypertensi on HLD (hyperlipidemia) Brain TIA Chest pain NSTEMI (non-ST elevated myocardial infarction) Essential hypertension HLD (hyperlipidemia) Presence of stent in coronary artery Chief Complaint CHEST PAIN, TIA CHEST PAIN, TIA CHEST PAIN, TIA CHEST PAIN, TIA CHEST PAIN, TIA S/P [facility] 15 DIVERTICULITIS Reason for Visit Essential hypertensi on HLD (hyperlipidemia) Brain TIA Chest pain NSTEMI (non-ST elevated myocardial infarction) Essential hypertension HLD (hyperlipidemia) Presence of stent in coronary artery Intractable abdominal pain Sigmoid diverticulitis Essential hypertension Presence of stent in coronary artery Chief Complaint CHEST PAIN, TIA CHEST PAIN, TIA CHEST PAIN, TIA CHEST PAIN, TIA CHEST PAIN, TIA S/P [facility] 15 DIVERTICULITIS DIVERTICULITIS Reason for Visit Essential hypertensi on HLD (hyperlipidemia) Brain TIA Chest pain NSTEMI (non-ST elevated myocardial infarction) Essential hypertension HLD (hyperlipidemia) Presence of stent in coronary artery Intractable abdominal pain Sigmoid diverticulitis Essential hypertension Presence of stent in coronary artery Chief Complaint CHEST PAIN, TIA CHEST PAIN, TIA CHEST PAIN, TIA CHEST PAIN, TIA CHEST PAIN, TIA S/P [facility] 15 DIVERTICULITIS DIVERTICULITIS EORDER Reason for Visit HLD (hyperlipidemia) Brain TIA Chest pain NSTEMI (non-ST elevated myocardial infarction) HLD (hyperlipidemia) Sigmoid diverticulitis Intractable abdominal pain Chief Complaint S/P [facility] 0915 DIVERTICULITIS DIVERTICULITIS EORDER DIVERTICULITIS 3 M [...] No October 30, 2021 7:09pm Power of Seeing Eye Dog Teacher No October 30 7:09pm Advance Directive Response Recorded Date/ Time Living Will Yes April 23, 2023 9:57pm Power of Seeing Eye Dog Teacher Yes April 9:57pm Name of Medical Power of Seeing Eye Dog Teacher Jesus Muñiz April 23, 2023 9:57pm Advance Directive Response Recorded Date/ Time Name of Medical Power of Seeing Eye Dog Teacher Ellie Muñiz April 24, 2023 12:15am Living Will Yes April 24, 2023 12:15am Power of Seeing Eye Dog Teacher Yes April 12:15am Advance Directive Response Recorded Date/ Time Living Will No June 14 5:16pm Power of Seeing Eye Dog Teacher No June 14, 2023 5:16pm Name of Medical Power of Seeing Eye Dog Teacher Ellie Muñiz April 24, 2023 12:15am Advance Directive Response Recorded Date/ Time Name of Medical Power of Seeing Eye Dog Teacher Ellie Muñiz June 14, 2023 8:15pm Living Will Yes June 14 8:15pm Power of Seeing Eye Dog Teacher Yes June 14, 2023 8:15pm Name of Medical Power of Seeing Eye Dog Teacher Ellie Muñiz April 23, 2023 11:15pm Advance Directive Response Recorded Date/ Time Name of Medical Power of Seeing Eye Dog Teacher Ellie Muñiz June 14, 2023 8:15pm Living Will Yes June 14 8:15pm Power of Seeing Eye Dog Teacher Yes June 14, 2023 8:15pm Advance Directive Response Recorded Date/ Time Name of Medical Power of Seeing Eye Dog Teacher Ellie Muñiz June 14, 2023 8:15pm Name of Medical Power of Seeing Eye Dog Teacher September 25, 2023 3:03pm Living Will Yes September 25, 024 3:03pm Power of Seeing Eye Dog Teacher Yes September 25, 2023 3:03pm Advance Directive Response Recorded Date/ Time Living Will Yes April 24, 2023 12:15am Do you have a Healthcare Pow er of Seeing Eye Dog Teacher? Yes April 24, 2023 12:15am Living Will Yes September 03 1:26am Do you have a Healthcare Pow er of Seeing Eye Dog Teacher? Yes September 03, 2024 1:26am Name of Medical Power of Seeing Eye Dog Teacher ELLIE MUÑIZ September 03, 2024 1:26am Advance Directive Response Recorded Date/ Time Do you have a Healthcare Power of Seeing Eye Dog Teacher? Yes January 22, 2025 2:10pm Name of Medical Power of Seeing Eye Dog Teacher Ellie Muñiz January 22, 2025 2:10pm Advance Directive Response Recorded Date/ Time Do you have a Healthcare Power of Seeing Eye Dog Teacher? Yes January 22, 2025 9:41pm Do you have a Healthcare Power of Seeing Eye Dog Teacher? Yes January 22, 2025 2:10pm Name of Medical Power of Seeing Eye Dog Teacher Ellie Muñiz January 22, 2025 2:10pm Summary [...] Provider, Refe rring Provider Active Mitchell Dubois TOUR SALES REPRESENTATIVE, TOUR SALES REPRESENTATIVE-C Attending Provider Active Team Status: Inactive Member [...] Primary Care Provider Activ e Mitchell Dubois TOUR SALES REPRESENTATIVE, TOUR SALES REPRESENTATIVE-C Attending Provider, Referring Pro vider Active Team [...] 2024 End: November 03, 2024 Mitchell Dubois TOUR SALES REPRESENTATIVE, TOUR SALES REPRESENTATIVE-C Attending Provider Active S tart: November 03, 2024 End: November 03, 2024 Mitchell Dubois TOUR SALES REPRESENTATIVE, TOUR SALES REPRESENTATIVE-C Referring Provider Active S tart: November 03, 2024 End: November 03, 2024 Team Status: Active Member Role Status Dates Dr. Eduard Henley MD Primary Care Provider Acti ve Start: November 03, 2024 Mitchell Dubois TOUR SALES REPRESENTATIVE, TOUR SALES REPRESENTATIVE-C Referring Provider Active S tart: November 03, 2024 Mitchell Dubois TOUR SALES REPRESENTATIVE, TOUR SALES REPRESENTATIVE-C Other Provider Active Start : November 03, [...] 2025 End: May 05, 2025 Mitchell Dubois TOUR SALES REPRESENTATIVE, TOUR SALES REPRESENTATIVE-C Attending physician Active Start: May 05, 2025 End: May 05, 2025 (unrecognized sect ion and content) No Status Records Found INFORMATION SOURCE (unrecogn ized section and content) DATE CREATED AUTHOR 05/06/2025 [facility] FOR RECORDS PERTAINING TO PATIENTS WHO [...] BE BASED ON THE PRIMARY CLINICAL RECORDS. [facility] [employer], [facility]. provides no warranty or guarantee of the accuracy or completeness of information in this document.
[2025-06-10 00:13] LABS: Troponin T High Sens 4 HR < 6 ng/L (<=22)
--- OUTSIDE RECORDS SUMMARY | 2025-06-10 00:14 | XMS RPT_ITS | CCD ---
Author Organization [facility] Care Team Providers Care Chronic Care Nurse Name Role Phone DeFinis, Harumi Y Unavailable [...] Provider Dr. Sergei Henley Referring Provider Roof AUTO PAINTER, AUTO PAINTER-C Mitchell Harvey Attending Provider Dr. Sergei Henley Primary Care Provider Dr. Perez Dave Emergency Provider Dr. Ar Torres Admit Provider Dr. Ar Torres Attending Provider Dr. Ar Torres Other Provider Dr. Jose Lockwood Other Provider Dr. Rommel Youssef Other Provider Dr. Rommel Youssef Attending Provider Dr. Jose Lockwood Attending Provider [phone] Sergei Henley Referring Provider Sherly AUTO PAINTER, AUTO PAINTER-C Mitchell Harvey Attending Provider MD Donta Swenson Emergency Provider Dr. Meliza Ramírez Admit Provider Dr. Meliza Ramírez Other Provider Dr. Sergei Henley Primary Care Provider Dr. Rommel Youssef Attending Provider Dr. Rommel Youssef Other Provider Dr. Olegario Segal Attending Provider Dr. Sergei Henley Primary Care Provider Dr. Sergei Henley Referring Provider Sherly AUTO PAINTER, AUTO PAINTER-Cliff Harvey Attending Provider Dr. Olegario Segal Referring Provider Dr. Olegario Segal Other Provider Dr. Eduard Henley MD Primary Care Provider Dr. Eduard Henley MD Referring Provider Dr. Jose Lockwood MD Attending Provider Nick ABARCA, Dr. Lee Attending Provider Nick ABARCA, Dr. Lee Emergency Provider [phone] Flor SY, Dr. Arellano Attending Provider Flor SY, Dr. Arellano Referring Provider Kale SY, Dr. Chapa Attending Provider Roof AUTO PAINTER-C, Mitchell H Attending Provider Roof AUTO PAINTER-C, Mitchell H Referring Provider Roof AUTO PAINTER-C, Mitchell H Other Provider Kale SY, Dr. Chapa Primary Care Provider Kale SY, Dr. Chapa Referring Provider [phone] Mandie SY, Dr. Garcia Attending Provider [phone] Mg Rico Attending Provider Ruslan SY, Dr. Jones Emergency Provider [phone] Kale SY, Dr. Chapa Primary Care Provider Kale SY, Dr. Chapa Referring Provider Ruslan SY, Dr. Jones Attending Provider Kale SY, Dr. Chapa Attending Provider [phone] Roof AUTO PAINTER, Mitchell H Attending Unavailable Kale, Eduard Referring [...] Unavailable Ranney, Christopher Primary Care Unavailable Roof AUTO PAINTER, Mitchell Harvey Attending Unavailable Sherly AUTO PAINTER, Mitchell H Referring Unavailable Eduard Henley Primary Care Unavailable Jose Lockwood Attending Unavailable Sherly AUTO PAINTER, Mitchell Harvey Consulting Unavailable Sherly AUTO PAINTER, Mitchell Harvey Referring Unavailable Eduard Henley Primary [...] Kale SY, Dr. Chapa Referring Provider Sherly AUTO PAINTER-CMitchell Attending Physician Allergies Allergy Classification Reported Allergen(s) Allergy Type Date of Onset Reaction(s) Facility (3 sources) shrimp allergenic extract Drug Allergy 01-22-2025 Anaphylaxis [facility] (1 source) Scallop - dietary Drug allergy (disorder) 05-05-2025 [facility] (1 source) Shrimp product Drug allergy (disorder) 05-05-2025 [facility] (1 source) scallop allergenic extract Drug Allergy 05-05-2025 Anaphylaxis [facility] Medications Current Medications Medication Drug Class(es) [...] mg PO daily August 06, 2017 1:00am [facility] Complies with drug therapy Start: 11-27-2011 take 1 tablet by kolton th once daily ASPIRIN 81 MG TABS One tablet by mouth daily ASPIRIN [id number] Elizabet Sridevi Avila Start: 11-27-2011 take 1 tablet by kolton th once daily ASPIRIN 81 MG TABS One tablet by mouth daily ASPIRIN 17941172359 Elizabet Avila Start: 11-27-2011 take 1 tablet by kolton th once daily ASPIRIN EC 81 MG TBEC One tablet by mouth daily ASPIRIN 81389642194 Bhavani Ralph PA-C cetirizine hydrochloride 10 mg [...] One tablet by mouth daily CLOPIDOGREL BISULFATE 91432150620 Elizabet Avila 1 ml evolocumab 140 mg/ml [...] 5 min up to 3 X NITROGLYCERIN 32661014393 Brain Whyte MD Start: 11-27-2011 NITROGLYCERIN 0.4 MG/HR PT24 1 tablet under tongue every 5 min up to 3 X NITROGLYCERIN 52869611983 Elizabet Avila pantoprazole 40 mg delayed release [...] One tablet by mouth twice daily AMOXICILLIN 98097265736 Latisha Zayas PA-C amoxicillin 875 mg / [...] mouth three times daily as needed CLONAZEPAM 79453801699 Elizabet Avila Cobalamin Combinations capsule (4 sources) [...] Start: 06-14-2023 take 1 capsule by mo [facility] once daily Cobalamine Combinations Active CAP PO DAILY June 13, 2023 11:00pm Start: 06-14-2023 take 1 capsule by mo [facility] once daily Cobalamine Combinations Active CAP [...] TABS One tablet by mouth daily EZETIMIBE 58110504479 Brain Whyte MD famotidine 20 mg oral tablet (5 sources) Histamine-2 Receptor Antagonist Start: 10-25-2013 take 1 tablet by mouth once daily FAMOTIDINE 20 MG TABS One tablet by mouth daily FAMOTIDINE 07801357256 Brain Whyte MD fish oil (10 sources) Start: 06-01-2012 End: 01-11-2013 take 1 tablet by mouth once daily FISH OIL CAPS One tablet by mouth daily OMEGA-3 FATTY ACIDS CAPS 41633938049 Bhavani Ralph PA-C Start: 06-01-2012 take 1 tablet by kolton th once daily FISH OIL CAPS One tablet by mouth daily OMEGA-3 FATTY ACIDS CAPS 19632398663 Brain Whyte MD Start: 06-01-2012 End: 01-11-2013 take 1 tablet by mouth once daily FISH OIL CAPS One tablet by mouth daily OMEGA-3 FATTY ACIDS CAPS 42252853606 Bhavani Ralph PA-C Start: 06-01-2012 take 1 tablet by kolton th once daily FISH OIL CAPS One tablet by mouth daily OMEGA-3 FATTY ACIDS CAPS 95019747171 Brain Whyte MD lisinopril 10 mg oral [...] TABS One tablet by mouth daily LISINOPRIL 86660693632 Brain Whyte MD Start: 11-28-2011 End: 01-11-2013 take 1 tablet by mouth once daily LISINOPRIL 10 MG TABS One tablet by mouth daily LISINOPRIL 58025913081 Bhavani Ralph PA-C Start: 11-27-2011 take 1 tablet by kolton th once daily LISINOPRIL 2.5 MG TABS One tablet by mouth daily LISINOPRIL 06351205007 Elizabet Avila loratadine 10 mg oral tablet [...] tablet by mouth daily as needed LORATADINE 59795777387 Brain Whyte MD Start: 11-27-2011 take 1 tablet by kolton th once daily as needed CLARITIN 10 MG CAPS One tablet by mouth daily as needed LORATADINE 85793544903 Brain Whyte MD oxyCODONE hydrochloride 5 mg [...] tablet by mouth at bedtime. PRAVASTATIN SODIUM 32705832672 Brain Whyte MD raNITIdine 150 mg oral tablet (5 sources) Histamine-2 Receptor Antagonist Start: 06-01-2012 take 1 tablet by mouth twice daily RANITIDINE HCL 150 MG TABS One tablet by mouth twice daily RANITIDINE HCL 30683629388 Brain Whyte MD rosuvastatin calcium 5 mg [...] One tablet by mouth at bedtime. SIMVASTATIN 67308711064 Elizabetpili Avila tadalafil 5 mg oral tablet (20 sources) Phosphodiesterase 5 Inhibitor Start: 08-06-2017 End: 01-26-2018 Tadalafil 5 mg tablet Discontinued 5 mg PO NEEDED as needed for erectile 30 30 0 August 06, 2017 1:00am January 26, 2018 8:38am Start: 06-01-2012 CIALIS 5 MG TA BS as directed TADALAFIL 55891388145 Brain Whyte MD ticagrelor 90 mg oral [...] Coronary atherosclerosis; Translations: [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] Onset: 11-27-2011 [...] (current) use of other medications; Translations: [Other snf (current) drug therapy] Onset: 06-10-2012 Resolved: 05-03-2015 [...] Facility Cardiology Visit Reporton Cardiology Visit Report [facility] [address] [place] [address] OFFICE VISIT Date of Service: 05/05/25 MR#: [id number] Acct: [id number] Name: JOVANY MUÑIZ Rep #: [id number] : 1965 Provider: EUGENIA south Age/Sex: 59/M Location: [facility] Status: Signed HPI HPI History of Present Illness Details: This is a 59-year-old white male who presents today for outpatient cardiovascular follow-up regarding a history of underlying CAD, PCI, hyperlipidemia, and hypertension. He was noted to have inferior myocardial infarction with stenting to his obtuse marginal, proximal to mid circumflex, proximal to mid LAD in 2009. He presented [facility] on 04/23/2023 for assurance regarding stroke [...] room air Intake Visit Reasons: 9 M Disc Inspector Required: No Accompanied by: Is patient in pain?: No Allergies shrimp Allergy (Severe, Verified 05/05/25 08:30) Anaphylaxis scallops Allergy (Verified 05/05/25 08:30) Anaphylaxis Medications ???Medication ???Instructions ???Recorded ???Confirmed ???Type aspirin 81 mg tablet,delayed 81 mg PO QDAY [facility] 7 05/05/25 History release (Adult Low [...] Old myocardial infarction 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 (04/25/23) Surgical [...] of vision (more content not included)... Normal [facility] L5500.0550on 02-01-2025 BEEF <0.10 Normal Class 0 [facility] Comment on above: Performed By: #### L 500.2500, L501.4021, L100.0100 #### [facility] [address] [place], [address] CHOCOLATE <0.10 Normal Class 0 [facility] Comment on above: Performed By: #### L 500.2500, L501.4021, L100.0100 #### [facility] [address] [place], [address] CODFISH <0.10 Normal Class 0 [facility] Comment on above: Performed By: #### L 500.2500, L501.4021, L100.0100 #### [facility] [address] [place], [address] COMMENT Comment Normal . [facility] Comment on above: Result Comment: Master bennett of Specific IgE Class Description of Class ----- < 0.10 0 Negative 0.10 - 0.31 0/I Equivocal/Low 0.32 - 0.55 I Low 0.56 - 1.40 II Moderate 1.41 - 3.90 III High 3.91 - 19.00 IV Very High 19.01 - 100.00 V Very High >100.00 Very High Performed By: #### L 500.2500, L501.4021, L100.0100 #### [facility] [address] [place], [address] CORN <0.10 Normal Class 0 [facility] Comment on above: Performed By: #### L 500.2500, L501.4021, L100.0100 #### [facility] [address] [place], [address] EGG, WHOLE <0.10 Normal Class 0 [facility] Comment on above: Result Comment: Perf ormed at: [facility] [address] [id number] Gathering Worker: Brandie Dial MD, Phone: [phone] Performed By: #### L 500.2500, L501.4021, L100.0100 #### [facility] [address] [place], [address] MILK (COW) <0.10 Normal Class 0 [facility] Comment on above: Performed By: #### L 500.2500, L501.4021, L100.0100 #### [facility] [address] [place], [address] MUSSELS <0.10 Normal Class 0 [facility] Comment on above: Performed By: #### L 500.2500, L501.4021, L100.0100 #### [facility] [address] [place], [address] PEANUT <0.10 Normal Class 0 [facility] Comment on above: Performed By: #### L 500.2500, L501.4021, L100.0100 #### [facility] [address] [place], [address] PORK <0.10 Normal Class 0 [facility] Comment on above: Performed By: #### L 500.2500, L501.4021, L100.0100 #### [facility] [address] [place], [address] SALMON <0.10 Normal Class 0 [facility] Comment on above: Performed By: #### L 500.2500, L501.4021, L100.0100 #### [facility] [address] [place], [address] SHRIMP 0.50 kU/L Abnormal Class I [facility] Comment on above: Performed By: #### L 500.2500, L501.4021, L100.0100 #### [facility] [address] [place], [address] SOYBEAN <0.10 Normal Class 0 [facility] Comment on above: Performed By: #### L 500.2500, L501.4021, L100.0100 #### [facility] [address] [place], [address] TUNA <0.10 Normal Class 0 [facility] Comment on above: Performed By: #### L 500.2500, L501.4021, L100.0100 #### [facility] [address] [place], [address] WHEAT <0.10 Normal Class 0 [facility] Comment on above: Performed By: #### L 500.2500, L501.4021, L100.0100 #### [facility] [address] [place], [address] Calculated very low density lipoprotein (VLDL) cholesterol measurementOrdered By: Eduard Henley on 01-27-2025 Calculated very low density lipoprotein (VLDL) cholesterol measurement 31 mg/dL 5-40 [facility] LDL calc ser/plasOrdered By: Eduard Henley on 01-27-2025 Cholesterol in LDL [Mass/Vol] 131 mg/dL [facility] Comment on above: Papvnhijlg=895-325 m g/dL & Higher Qhtu=818 mg/dL or greater Laboratory - Miscellaneous t estsOrdered By: Eduard Henley on 01-27-2025 Service comment (Unsp spec) [Interp] Comment . [facility] Comment on above: Levels of Specific I gE Class Description of Class ----- < 0.10 0 Negative 0.10 - 0.31 0/I Equivocal/Low 0.32 - 0.55 I Low 0.56 - 1.40 II Moderate 1.41 - 3.90 III High 3.91 - 19.00 IV Very High 19.01 - 100.00 V Very High >100.00 Very High Lipid Profileon 01-27-2025 CHOL:HDL 2.83 Normal [facility] Comment on above: Order Comment: Order Date: 10/01/24 Order Info: [id number] - LIPID Performed By: #### L 500.4100 #### [facility] [address] [place], [address] Cholesterol [Mass/Vol] 251 mg/dL High <=200 [facility] Comment on above: Order Comment: Order Date: 10/01/24 Order Info: [id number] - LIPID Result Comment: Chol esterol level, Desirable <200 mg/dL Borderline high cholesterol 200-239 mg/dL High cholesterol >=240 mg/dL Recommendations of the NCEP Adult Treatment Panel for the following risk-cutoff thresholds for the [place] population. Performed By: #### L 500.4100 #### [facility] [address] [place], [place], [address] Cholesterol in HDL [Mass/Vol] 89 mg/dL Normal [facility] Comment on above: Order Comment: Order Date: 10/01/24 Order Info: [id number] - LIPID Result Comment: Anum onal Cholesterol Education Program (NCEP) guidelines: <40 mg/dL: Low HDL-cholesterol (major risk factor for CHD) >= 60 mg/dL: High HDL-cholesterol (negative risk factor for CHD) HDL-cholesterol is affected by a number of factors, e.g. smoking, exercise, hormones, sex and age. Performed By: #### L 500.4100 #### [facility] [address] [place], [place], [address] Cholesterol in LDL [Mass/Vol] 131 mg/dL Normal [facility] Comment on above: Order Comment: Order Date: 10/01/24 Order Info: [id number] - LIPID Result Comment: Bord qwynrd=331-199 mg/dL Higher Qzwd=553 mg/dL or greater Performed By: #### L 500.4100 #### [facility] [address] [place], [place], [address] Cholesterol in VLDL [Mass/Vol] 31 mg/dL Normal 5-40 [facility] Comment on above: Order Comment: Order Date: 10/01/24 Order Info: [id number] - LIPID Performed By: #### L 500.4100 #### [facility] [address] [place], [place], [address] Triglyceride [Mass/Vol] 156 mg/dL Normal [facility] Comment on above: Order Comment: Order Date: 10/01/24 Order Info: [id number] - LIPID Result Comment: The drugs N-Acetylcysteine and Metamizole may falsely depress this assay. Normal range: <150 mg/dL Borderline High: 150-199 mg/dL High: 200-499 mg/dL Very High: >500 mg/dL Performed By: #### L 500.4100 #### [facility] [address] [place], [place], [address] Screening total cholesterol/ high density lipoprotein (HDL) cholesterol ratioOrdered By: Eduard Henley on 01-27-2025 Cholesterol.total/Choles terol in HDL [Mass ratio] 2.83 {ratio} [facility] Serum beef IgE antibody assa y (units/volume)Ordered By: Eduard Henley on 01-27-2025 Beef IgE Qn (S) <0.10 kU/L Class 0 [facility] Serum codfish IgE antibody a ssay (units/volume)Ordered By: Eduard Henley on 01-27-2025 Codfish IgE Qn (S) <0.10 kU/L Class 0 [facility] Serum corn IgE antibody assa y (units/volume)Ordered By: Eduard Henley on 01-27-2025 [place] IgE Qn (S) <0.10 kU/L Class 0 [facility] Serum cow milk IgE antibody assay (units/volume)Ordered By: Eduard Henley on 01-27-2025 Cow milk IgE Qn (S) <0.10 kU/L Class 0 [facility] Serum or plasma cholesterol in HDL measurement (mass/volume)Ordered By: Eduard Henley on 01-27-2025 Cholesterol in HDL [Mass/Vol] 89 mg/dL >40 [facility] Comment on above: National Cholesterol Education Program (NCEP) guidelines:<40 mg/dL: Low HDL-cholesterol (major risk factor for CHD)>= 60 mg/dL: High HDL-cholesterol (negative risk factor for CHD)HDL-cholesterol is affected by a number of factors, e.g. smoking, exercise, hormones, sex and age. Serum or plasma cholesterol measurement (mass/volume)Ordered By: Eduard Henley on 01-27-2025 Cholesterol [Mass/Vol] 251 mg/dL High <201 [facility] Comment on above: Cholesterol level, D esirable <200 mg/dLBorderline high cholesterol 200-239 mg/dLHigh cholesterol >=240 mg/dLRecommendations of the NCEP Adult Treatment Panel for the following risk-cutoff thresholds for the [place] population. Serum peanut IgE antibody as say (units/volume)Ordered By: Eduard Henley on 01-27-2025 Peanut IgE Qn (S) <0.10 kU/L Class 0 [facility] Serum pork IgE antibody assa y (units/volume)Ordered By: Eduard Henley on 01-27-2025 Pork IgE Qn (S) <0.10 kU/L Class 0 [facility] Serum salmon IgE antibody as say (units/volume)Ordered By: Eduard Henley on 01-27-2025 [place] IgE Qn (S) <0.10 kU/L Class 0 [facility] Serum soybean IgE antibody a ssay (units/volume)Ordered By: Eduard Henley on 01-27-2025 Soybean IgE Qn (S) <0.10 kU/L Class 0 [facility] Serum tuna IgE antibody assa y (units/volume)Ordered By: Eduard Henley on 01-27-2025 Tuna IgE Qn (S) <0.10 kU/L Class 0 [facility] Serum wheat IgE antibody ass ay (units/volume)Ordered By: Eduard Henley on 01-27-2025 Wheat IgE Qn (S) <0.10 kU/L Class 0 [facility] Serum whole egg IgE antibody assay (units/volume)Ordered By: Eduard Henley on 01-27-2025 Whole Egg IgE Qn (S) <0.10 kU/L Class 0 [facility] Comment on above: Performed at: [address] [id number] Director: Brandie Dial MD, Phone: [phone] Triglycerides measurementOrd ered By: Eduard Henley on 01-27-2025 Triglyceride [Mass/Vol] 156 mg/dL <199 [facility] Comment on above: The drugs N-Acetylcy steine and Metamizole may falsely depress this assay. Normal range: <150 mg/dLBorderline High: 150-199 mg/dLHigh: 200-499 mg/dLVery High: >500 mg/dL Vitamin B12on 01-27-2025 Cobalamin (Vitamin B12) [Mass/Vol] 743 pg/mL Normal 180-914 [facility] Comment on above: Order Comment: Order Date: 10/01/24Order Info: [id number] - LIPID Performed By: #### L 503.0106, L5500.0550 ####[facility] [address] [facility] [place], [address] Vitamin B12 ser/plasOrdered By: Eduard Henley on 01-27-2025 Cobalamin (Vitamin B12) [Mass/Vol] 743 pg/mL 180-914 [facility] 12 Lead EKGon 01-22-2025 12 Lead EKG [facility] [address] [place] [address] 12 Lead EKG 01/22/25 1351 MR#: [id number] Acct: [id number] Name: JOVANY MUÑIZ Rep #: [id number] : 1965 59 From: Jose Lockwood MD [...] Normal ECG Confirmed by MANDIE SY, JOSE ([id number]), videotape editor JOY PAULSON ([id number]) on 01/25/2025 7:48:42 AM Referred By: ISHA/RUSLAN Confirmed By: JOSE LOCKWOOD MD 01/25/25 0748 Date Jose Lockwood MD CC: Dr. Eduard Henley MD; Dr. Robert Mercer MD Signed Normal [facility] Absolute lymphocyte countOrd ered By: ED PROVIDER on 01-22-2025 Lymphocytes Auto (Unsp spec) [#/Vol] 1.12 10*3/uL 0.83-4.51 [facility] Absolute neutrophil countOrd ered By: ED PROVIDER on 01-22-2025 Neutrophils (Bld) [#/Vol] 3.3 10*3/uL 2.0-7.7 [facility] Anion gap in Serum or Plasma Ordered By: ED PROVIDER on 01-22-2025 Anion gap [Moles/Vol] 14 mmol/L 5-15 [facility] Automated blood erythrocyte countOrdered By: ED PROVIDER on 01-22-2025 RBC (Bld) [#/Vol] 4.48 10*6/uL Low 4.6-6.2 [facility] Comment on above: Performed By: #### L 500.2500, L501.4021, L100.0100 #### [facility] [address] [place], [place], [address] Automated blood hematocrit ( percentage)Ordered By: ED PROVIDER on 01-22-2025 Hematocrit (Bld) [Volume fraction] 43.5 % Normal 40-54 [facility] Comment on above: Performed By: #### L 500.2500, L501.4021, L100.0100 #### [facility] [address] [place], [address] Automated lymphocyte count a s percentage of total leukocytesOrdered By: ED PROVIDER on 01-22-2025 Lymphocytes/100 WBC Auto (Unsp spec) 22.1 % 19-41 [facility] BUN/creatinine ratioOrdered By: ED PROVIDER on 01-22-2025 Urea nitrogen/Creatinine [Mass ratio] 11.0 mg/mg 10- [facility] Basic Metabolic Profile (BMP )on 01-22-2025 BUN/CRE 11.0 RATIO Normal -20 [facility] Comment on above: Performed By: #### L 500.2500, L501.4021, L100.0100 #### [facility] [address] [place], [address] ECRCL 76.71 ml/min Normal 50-250 [facility] Comment on above: Performed By: #### L 500.2500, L501.4021, L100.0100 #### [facility] [address] [place], [address] GAP 14 Normal 5-15 [facility] Comment on above: Performed By: #### L 500.2500, L501.4021, L100.0100 #### [facility] [address] [place], [address] Potassium [Moles/Vol] 4.8 mmol/L Normal 3.3-5.1 [facility] Comment on above: Result Comment: Hemo lysis present, Results??could be affected. ?? Performed By: #### L 500.2500, L501.4021, L100.0100 #### [facility] [address] [place], [address] Basophil percentageOrdered B y: ED PROVIDER on 01-22-2025 Basophils/100 WBC (Bld) 0.8 % Normal 0-1 [facility] Comment on above: Performed By: #### L 500.2500, L501.4021, L100.0100 #### [facility] [address] [place], [address] CBC W/Diff, Automatedon 01-09 Absolute Lymph 1.12 X10 3/uL Normal 0.83-4.51 [facility] Comment on above: Performed By: #### L 500.2500, L501.4021, L100.0100 #### [facility] [address] [place], [address] Absolute Neut 3.3 X10 3/uL Normal 2.0-7.7 [facility] Comment on above: Performed By: #### L 500.2500, L501.4021, L100.0100 #### [facility] [address] [place], [address] IG% 0.400 Normal 0.0-0.9 [facility] Comment on above: Result Comment: IG% - Immature Granulocytes (promyelocytes, myelocytes and metamyelocytes) > 1% indicates that a LEFT SHIFT is Present. Performed By: #### L 500.2500, L501.4021, L100.0100 #### [facility] [address] [place], [address] Lymphocytes/100 WBC (Bld) 22.1 % Normal 19-41 [facility] Comment on above: Performed By: #### L 500.2500, L501.4021, L100.0100 #### [facility] [address] [place], [address] Nucleated RBC (Bld) [#/Vol] 0 10*3/uL Normal 0-5 [facility] Comment on above: Performed By: #### L 500.2500, L501.4021, L100.0100 #### [facility] [address] [place], [address] RDW SD 46.8 fl High 35.1-43.9 [facility] Comment on above: Performed By: #### L 500.2500, L501.4021, L100.0100 #### [facility] [address] [place], [address] Carbon dioxide, total [Moles /volume] in Central venous bloodOrdered By: ED PROVIDER on 01-22-2025 CO2 [Moles/Vol] 21.7 mmol/L Normal 21.0-32.0 [facility] Comment on above: Performed By: #### L 500.2500, L501.4021, L100.0100 #### [facility] [address] [place], [address] Chest 1 View (Portable)on Chest 1 View (Portable) [facility] Imaging Services [address] [place] [address] Chest 1 View (Portable) MR#: [id number] Acct: [id number] Name: JOVANY MUÑIZ Rep #: [id number] : 1965 M 59 From: Rachael Santos nd, MD PCP: Dr. Eduard Henley MD Status: REG ER Study: Chest 1 View (Portable) Date of Exam: 01/22/25 Exam# [id number] Ordering Dr: Robert Mercer MD PROCEDURE: CHEST 1 VIEW (PORTABLE) 01/22/2025 REASON FOR EXAM: CHEST PAIN TECHNIQUE: Frontal view of the chest. COMPARISON: Chest radiograph 09/03/2024. FINDINGS: Hardware: None. Heart: The heart size is normal. Lungs: No focal consolidation, pleural effusion or pneumothorax. Bones: Degenerative changes are identified within the thoracic spine. RAD/Chest 1 View (Portable) IMPRESSION: Negative Chest. Reading Location: [id number] CC: Dr. Eduard Henley MD; Dr. Robert Mercer MD [facility] Paraprofessional: Signed [facility] Chloride assayOrdered By: ED PROVIDER on 01-22-2025 Chloride [Moles/Vol] 103 mmol/L Normal 98-108 [facility] Comment on above: Performed By: #### L 500.2500, L501.4021, L100.0100 #### [facility] [address] [place], [address] Emergency Department Summary on 01-22-2025 Emergency Department Summary [facility] Medical Records Department [address] [place] [address] Emergency Department Summary 01/22/25 MR#: [id number] Acct: [id number] Name: JOVANY MUÑIZ Rep #: [id number] : 1965 59 From: Robert Mercer MD [...] Old myocardial infarction 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 (04/25/23) Home Medications ???Medication ???Instructions ???Recorded ???Last Taken ???Type aspirin 81 mg tablet,delayed 81 mg PO QDAY [facility] 7 09/26/23 History release (Adult Low Dose [...] peritoneal signs. (more content not included)... Normal [facility] Emergency Department Summary [facility] Medical Records Department [address] [place] [address] Emergency Department Summary 01/22/25 MR#: [id number] Acct: [id number] Name: JOVANY MUÑIZ Rep #: [id number] : 1965 59 From: Robert Mercer MD [...] Old myocardial infarction 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 (04/25/23) Home [...] intolerance Hematol (more content not included)... Normal [facility] Eosinophil percentageOrdered By: ED PROVIDER on 01-22-2025 Eosinophils/100 WBC (Bld) 2.4 % Normal 0-5 [facility] Comment on above: Performed By: #### L 500.2500, L501.4021, L100.0100 #### [facility] [address] [place], [address] Erythrocyte distribution wid th ratioOrdered By: ED PROVIDER on 01-22-2025 Erythrocyte distribution width (RBC) [Ratio] 13.0 % Normal 11.6-14.6 [facility] Comment on above: Performed By: #### L 500.2500, L501.4021, L100.0100 #### [facility] [address] [place], [address] Erythrocyte distribution wid th standard deviationOrdered By: ED PROVIDER on 01-22-2025 Erythrocyte distribution width (RBC) [Ratio] 46.8 fl High 35.1-43.9 [facility] Glomerular filtration rate ( GFR) estimation/1.73 sq m using serum, plasma, or whole bOrdered By: ED PROVIDER on 01-22-2025 GFR/1.73 sq M.predicted among non-blacks MDRD (S/P/Bld) [Vol rate/Area] 76 mL/min/{1.73_m2} Normal >60 [facility] Comment on above: mL/min/1.73m2 CKD-EP I Creatinine Equation (2020) Result Comment: mL/m in/1.73m2 CKD-EPI Creatinine Equation (2020) Performed By: #### L 500.2500, L501.4021, L100.0100 #### [facility] [address] [place], [address] Hemoglobin measurementOrdere d By: ED PROVIDER on 01-22-2025 Hemoglobin (Bld) [Mass/Vol] 14.9 g/dL Normal 13.0-16.5 [facility] Comment on above: Performed By: #### L 500.2500, L501.4021, L100.0100 #### [facility] [address] [place], [address] Immature granulocytes/100 WB C Auto (Bld)Ordered By: ED PROVIDER on 01-22-2025 Immature granulocytes/100 WBC (Bld) 0.400 % 0.0-0.9 [facility] Comment on above: IG% - Immature Granu locytes (promyelocytes, myelocytes and metamyelocytes) > 1% indicates that a LEFT SHIFT is Present. L499.0042on 01-22-2025 Trop T High Sen < 6 Normal <=22 [facility] Comment on above: Performed By: #### L 499.0042 #### [facility] [address] [place], [address] L499.0043on 01-22-2025 Trop T High Sen Normal <=22 [facility] Comment on above: Result Comment: PABLITO ENT DISCHARGED Performed By: #### L 500.2500, L501.4021, L100.0100 #### [facility] [address] [place], [address] L501.4021on 01-22-2025 Trop T High Sen < 6 Normal <=22 [facility] Comment on above: Result Comment: Hemo lysis present, Results??could be affected. ?? Performed By: #### L 500.2500, L501.4021, L100.0100 #### [facility] [address] [place], [address] MCV (mean corpuscular volume ) determinationOrdered By: ED PROVIDER on 01-22-2025 MCV (RBC) [Entitic vol] 97.1 fL High 80-94 [facility] Comment on above: Performed By: #### L 500.2500, L501.4021, L100.0100 #### [facility] [address] [place], [address] Mean corpuscular hemoglobin (MCH) determinationOrdered By: ED PROVIDER on 01-22-2025 MCH (RBC) [Entitic mass] 33.3 pg High 27.0-32.0 [facility] Comment on above: Performed By: #### L 500.2500, L501.4021, L100.0100 #### [facility] [address] [place], [address] Mean corpuscular hemoglobin concentration (MCHC) determinationOrdered By: ED PROVIDER on 01-22-2025 MCHC (RBC) [Mass/Vol] 34.3 g/dL Normal 32-36 [facility] Comment on above: Performed By: #### L 500.2500, L501.4021, L100.0100 #### [facility] [address] [place], [address] Mean platelet volume determi nationOrdered By: ED PROVIDER on 01-22-2025 Platelet mean volume (Bld) [Entitic vol] 9.4 fL Normal 6.2-12.0 [facility] Comment on above: Performed By: #### L 500.2500, L501.4021, L100.0100 #### [facility] [address] [place], [address] Monocyte percentageOrdered B y: ED PROVIDER on 01-22-2025 Monocytes/100 WBC (Bld) 10.1 % High 0-10 [facility] Comment on above: Performed By: #### L 500.2500, L501.4021, L100.0100 #### [facility] [address] [place], [address] Neutrophil percentageOrdered By: ED PROVIDER on 01-22-2025 Neutrophils/100 WBC (Bld) 64.2 % Normal 47-70 [facility] Comment on above: Performed By: #### L 500.2500, L501.4021, L100.0100 #### [facility] [address] [place], [address] Nucleated red blood cell per centageOrdered By: ED PROVIDER on 01-22-2025 Nucleated RBC/100 WBC (Bld) [Ratio] 0 % 0-5 [facility] Platelet countOrdered By: ED PROVIDER on 01-22-2025 Platelets (Bld) [#/Vol] 211 10*3/uL Normal 150-450 [facility] Comment on above: Performed By: #### L 500.2500, L501.4021, L100.0100 #### [facility] [address] [place], [address] Potassium measurement (mass/ volume)Ordered By: ED PROVIDER on 01-22-2025 Potassium (Unsp spec) [Mass/Vol] 4.8 mmol/L 3.3-5.1 [facility] Comment on above: Hemolysis present, R esults could be affected. Serum creatinine measurement (mass/volume)Ordered By: ED PROVIDER on 01-22-2025 Creatinine [Mass/Vol] 1.11 mg/dL Normal 0.70-1.20 [facility] Comment on above: Performed By: #### L 500.2500, L501.4021, L100.0100 #### [facility] [address] [place], [address] Serum glucose measurement (m ass/volume)Ordered By: ED PROVIDER on 01-22-2025 Glucose [Mass/Vol] 97 mg/dL Normal 70-99 [facility] Comment on above: Performed By: #### L 500.2500, L501.4021, L100.0100 #### [facility] [address] [place], [address] Serum or plasma calcium randa urement (mass/volume)Ordered By: ED PROVIDER on 01-22-2025 Calcium [Mass/Vol] 9.5 mg/dL Normal 7.6-11.0 [facility] Comment on above: Performed By: #### L 500.2500, L501.4021, L100.0100 #### [facility] [address] [place], [address] Serum or plasma urea nitroge n measurement (mass/volume)Ordered By: ED PROVIDER on 01-22-2025 Urea nitrogen [Mass/Vol] 12 mg/dL Normal 4-19 [facility] Comment on above: Performed By: #### L 500.2500, L501.4021, L100.0100 #### [facility] [address] [place], [address] Sodium levelOrdered By: ED Madisyn LEIJA on 01-22-2025 Sodium [Moles/Vol] 139 mmol/L Normal 133-145 [facility] Comment on above: Performed By: #### L 500.2500, L501.4021, L100.0100 #### [facility] [address] [place], [address] Troponin T.cardiac [Mass/vol ume] in Serum or Plasma by High sensitivity methodOrdered By: Robert Mercer on 01-22-2025 Troponin T.cardiac High sensitivity method [Mass/Vol] < 6 ng/L <22 [facility] Comment on above: Hemolysis present, R esults could be affected. White blood cell (WBC) count Ordered By: ED PROVIDER on 01-22-2025 WBC (Bld) [#/Vol] 5.1 10*3/uL Normal 4.4-11.0 [facility] Comment on above: Performed By: #### L 500.2500, L501.4021, L100.0100 #### [facility] [address] [place], [address] Urgent Care Visit Reporton 0 11-09-2024 Urgent Care Visit Report [facility] [address], [address] [place], [place] [address] OFFICE VISIT Date of Service: 11/09/24 MR#: [id number] Acct: [id number] Name: JOVANY MUÑIZ Rep #: [id number] : 1965 Provider: FANTA Driscoll Age/Sex: 59/M Location: [facility] Status: Signed Intake Vital Signs 09/03/24 00:23 [...] mg PO QDAY 08/06/24 10/27/24 His tory [facility] Medical History Wears partial dentures High cholesterol Heartburn Gastric reflux History of diverticulitis Former smoker History of heart attack History of echocardiogram History of stress test Hypertension Cardiology follow-up encounter Sigmoid diverticulitis History of coronary artery disease Presence of stent in coronary artery (04/25/23) Essential hypertension HLD (hyperlipidemia) 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 Eduard Henley MD Status: REG CLI Referring Dr: Mitchell Dubois NP AUTO PAINTER-C Sex: M C Stress Test Report Exercise [...] 11/03/241806 Date _ Jose Lockwood MD CC: AUTO PAINTER-C Mitchell Dubois; Dr. Eduard Henley MD ~ Date Dictated: 11/03/241804 Date Transcribed: 11/03/241804 Group Home Paraprofessional: [place] Signed [facility] Work Phone: Stress Reporton 11-03-2024 Stress Report [facility] [address] [place] [address] MR#: [id number] Acct: [id number] Name: JOVANY MUÑIZ Rep #: [id number] : 1965 59 From: Jose Lockwood MD Primary Care: Dr. Eduard Henley MD Status: REG CLI Referring Dr: Mitchell Dubois NP AUTO PAINTER-C Sex: M C Stress Test Report Exercise [...] MD Date Dictated: 11/03/241804 Date Transcribed: 11/03/241804 Group Home Paraprofessional: [place] Signed Normal [facility] Vitamin D,25 Hydroxyon 09-30 Vitamin D 25-OH 35.3 ng/mL Normal [facility] Comment on above: Order Comment: Order Date: 09/28/24Order Info: [id number] - R57Astff Info: [id number] - VITD25 Result Comment: Mayte min D 25(OH) Status Range Deficiency <20 ng/mL (50nmol/L) Insufficiency 20 - 30 ng/mL (50 - 75 nmol/L) Sufficiency 30 - 100 ng/mL (75 - 250 nmol/L) Toxicity >100 ng/mL (>250 nmol/L) Performed By: #### L 501.9910, L506.1000, L500.4050, L503.0105, L500.4100 ####[facility] [address] [place], [address] [id number] DOrdered By: Cliff Henley on 09-28-2024 Vitamin [...] Albumin/Globulin [Mass ratio] 0.8 {ratio} Low 0.9-2.4 [facility] Bilirubin, totalOrdered By: Eduard Henley on 09-28-2024 Bilirubin [Mass/Vol] 0.50 mg/dL 0.20-1.00 [facility] Comment on above: For patients on eltr ombopag therapy, use of Dimension [place] TBIL is not recommended. Blood urea nitrogen (BUN)/cr eatinine ratioOrdered By: Eduard Henley on 09-28-2024 Urea nitrogen/Creatinine [Mass ratio] 15.0 mg/mg 10-20 [facility] Carbon dioxide measurementOr dered By: Eduard Henley on 09-28-2024 CO2 [Moles/Vol] 28.0 mmol/L 21.0-32.0 [facility] Chloride measurementOrdered By: Eduard Henley on 09-28-2024 Chloride [Moles/Vol] 104 mmol/L 98-107 [facility] Comprehensive Metabolic Prof ilon 09-28-2024 Albumin [Mass/Vol] 3.7 g/dL Normal 3.2-5.0 [facility] Comment on above: Order Comment: Order Date: 09/28/24 Order Info: [id number] - CMP Order Info: [id number] - LIPID Order Info: [id number] - PSA Performed By: #### L 501.9910, L506.1000, L500.4050, L503.0105, L500.4100 #### [facility] [address] [place], [address] Albumin/Globulin [Mass ratio] 0.8 {ratio} Low 0.9-2.4 [facility] Comment on above: Order Comment: Order Date: 09/28/24 Order Info: [id number] - CMP Order Info: [id number] - LIPID Order Info: 2851 - PSA Performed By: #### L 501.9910, L506.1000, L500.4050, L503.0105, L500.4100 #### [facility] [address] [place], [address] ALK P 66 U/L Normal 45-117 [facility] Comment on above: Order Comment: Order Date: 09/28/24 Order Info: [id number] - CMP Order Info: [id number] - LIPID Order Info: [id number] - PSA Performed By: #### L 501.9910, L506.1000, L500.4050, L503.0105, L500.4100 #### [facility] [address] [place], [address] ALT [Catalytic activity/Vol] 38 U/L Normal 16-61 [facility] Comment on above: Order Comment: Order Date: 09/28/24 Order Info: 0786 - CMP Order Info: [id number] - LIPID Order Info: [id number] - PSA Performed By: #### L 501.9910, L506.1000, L500.4050, L503.0105, L500.4100 #### [facility] [address] [place], [address] AST [Catalytic activity/Vol] 29 U/L Normal 15-37 [facility] Comment on above: Order Comment: Order Date: 09/28/24 Order Info: [id number] - CMP Order Info: [id number] - LIPID Order Info: [id number] - PSA Performed By: #### L 501.9910, L506.1000, L500.4050, L503.0105, L500.4100 #### [facility] [address] [place], [address] Bilirubin [Mass/Vol] 0.50 mg/dL Normal 0.20-1.00 [facility] Comment on above: Order Comment: Order Date: 09/28/24 Order Info: [id number] - CMP Order Info: - LIPID Order Info: [id number] - PSA Result Comment: For patients on eltrombopag therapy, use of Dimension [place] TBIL is not recommended. Performed By: #### L 501.9910, L506.1000, L500.4050, L503.0105, L500.4100 #### [facility] [address] [place], [address] BUN/CRE 15.0 RATIO Normal 10-20 [facility] Comment on above: Order Comment: Order Date: 09/28/24 Order Info: [id number] - CMP Order Info: - LIPID Order Info: [id number] - PSA Performed By: #### L 501.9910, L506.1000, L500.4050, L503.0105, L500.4100 #### [facility] [address] [place], [address] CA,Total 9.9 mg/dL Normal 8.5-10.1 [facility] Comment on above: Order Comment: Order Date: 09/28/24 Order Info: [id number] - CMP Order Info: - LIPID Order Info: [id number] - PSA Performed By: #### L 501.9910, L506.1000, L500.4050, L503.0105, L500.4100 #### [facility] [address] [place], [address] Chloride [Moles/Vol] 104 mmol/L Normal 98-107 [facility] Comment on above: Order Comment: Order Date: 09/28/24 Order Info: [id number] - CMP Order Info: [id number] - LIPID Order Info: [id number] - PSA Performed By: #### L 501.9910, L506.1000, L500.4050, L503.0105, L500.4100 #### [facility] [address] [place], [address] CO2 [Moles/Vol] 28.0 mmol/L Normal 21.0-32.0 [facility] Comment on above: Order Comment: Order Date: 09/28/24 Order Info: 785- - CMP Order Info: - LIPID Order Info: 1 - PSA Performed By: #### L 501.9910, L506.1000, L500.4050, L503.0105, L500.4100 #### [facility] [address] [place] [place], [address] Creatinine [Mass/Vol] 1.20 mg/dL Normal 0.70-1.30 [facility] Comment on above: Order Comment: Order Date: 09/28/24 Order Info: [id number] - CMP Order Info: - LIPID Order Info: [id number] - PSA Result Comment: The validity of the calculated GFR GFRAA in patients over 70 years has not been determined. Clinical correlation is essential. Performed By: #### L 501.9910, L506.1000, L500.4050, L503.0105, L500.4100 #### [facility] [address] [place], [address] EST GFR - AA 79 mL/min Normal >60 [facility] Comment on above: Order Comment: Order Date: 09/28/24 Order Info: [id number] - CMP Order Info: - LIPID Order Info: [id number] - PSA Result Comment: Afri can Vincentian GFR Calc Performed By: #### L 501.9910, L506.1000, L500.4050, L503.0105, L500.4100 #### [facility] [address] [place] [place], [address] GAP 5 Normal 5-15 [facility] Comment on above: Order Comment: Order Date: 09/28/24 Order Info: [id number] - CMP Order Info: - LIPID Order Info: [id number] - PSA Performed By: #### L 501.9910, L506.1000, L500.4050, L503.0105, L500.4100 #### [facility] [address] [place], [address] GFR/1.73 sq M.predicted among non-blacks MDRD (S/P/Bld) [Vol rate/Area] 65 mL/min/{1.73_m2} Normal >60 [facility] Comment on above: Order Comment: Order Date: 09/28/24 Order Info: 07 - CMP Order Info: - LIPID Order Info: [id number] - PSA Result Comment: Non- GFR Calc Performed By: #### L 501.9910, L506.1000, L500.4050, L503.0105, L500.4100 #### [facility] [address] [place], [address] Globulin (S) [Mass/Vol] 4.8 g/dL High 2.2-4.2 [facility] Comment on above: Order Comment: Order Date: 09/28/24 Order Info: [id number] - CMP Order Info: [id number] - LIPID Order Info: [id number] - PSA Performed By: #### L 501.9910, L506.1000, L500.4050, L503.0105, L500.4100 #### [facility] [address] [place], [address] Glucose [Mass/Vol] 105 mg/dL Normal 74-106 [facility] Comment on above: Order Comment: Order Date: 09/28/24 Order Info: 0786 - CMP Order Info: [id number] - LIPID Order Info: [id number] - PSA Result Comment: Fast ing Glucose result from 100 to 125 mg/dL suggests IMPAIRED HOMEOSTASIS per A.D.A. criteria. Performed By: #### L 501.9910, L506.1000, L500.4050, L503.0105, L500.4100 #### [facility] [address] [place], [address] Potassium [Moles/Vol] 4.4 mmol/L Normal 3.5-5.1 [facility] Comment on above: Order Comment: Order Date: 09/28/24 Order Info: 0786- - CMP Order Info: [id number] - LIPID Order Info: [id number] - PSA Performed By: #### L 501.9910, L506.1000, L500.4050, L503.0105, L500.4100 #### [facility] [address] [place], [address] Sodium [Moles/Vol] 138 mmol/L Normal 136-145 [facility] Comment on above: Order Comment: Order Date: 09/28/24 Order Info: 07 - CMP Order Info: [id number] - LIPID Order Info: [id number] - PSA Performed By: #### L 501.9910, L506.1000, L500.4050, L503.0105, L500.4100 #### [facility] [address] [place], [address] T PROT 8.5 g/dL High 6.4-8.2 [facility] Comment on above: Order Comment: Order Date: 09/28/24 Order Info: 0786- - CMP Order Info: [id number] - LIPID Order Info: [id number] - PSA Performed By: #### L 501.9910, L506.1000, L500.4050, L503.0105, L500.4100 #### [facility] [address] [place], [address] Urea nitrogen [Mass/Vol] 18 mg/dL Normal 7-18 [facility] Comment on above: Order Comment: Order Date: 09/28/24 Order Info: 0786- - CMP Order Info: [id number] - LIPID Order Info: [id number] - PSA Performed By: #### L 501.9910, L506.1000, L500.4050, L503.0105, L500.4100 #### [facility] [place], [address] Estimated glomerular filtrat ion rate (GFR) AmericanOrdered By: Eduard Henley on 09-28-2024 Estimated GFR (MDRD) Amer 79 mL/min >60 [facility] Comment on above: GFR Calc Glomerular filtration rate ( GFR) estimationOrdered By: Eduard Henley on 09-28-2024 Estimated GFR (MDRD) Non-Af Amer 65 mL/min >60 [facility] Comment on above: Non- GFR Calc GFR/1.73 sq M.predicted among non-blacks MDRD (S/P/Bld) [Vol rate/Area] 65 mL/min/{1.73_m2} >60 [facility] Comment on above: Non- GFR Calc Glucose measurementOrdered B y: Eduard Henley on 09-28-2024 Glucose [Mass/Vol] 105 mg/dL 74-106 [facility] Comment on above: Fasting Glucose resu lt from 100 to 125 mg/dL suggests IMPAIRED HOMEOSTASIS per A.D.A. criteria. High density lipoprotein (HD L) measurementOrdered By: Eduard Henley on 09-28-2024 Cholesterol in HDL [Mass/Vol] 81 mg/dL >40 [facility] Comment on above: The drugs N-Acetylcy steine and Metamizole may falsely depress this assay. Reference Range HDL <40 mg/dL Low HDL Cholesterol HDL >or= 60 mg/dL High HDL Cholesterol Laboratory - Chemistry and C hemistry - challengeOrdered By: Eduard Henley on 09-28-2024 AST [Catalytic activity/Vol] 29 U/L 15-37 [facility] Lipid Profileon 09-28-2024 Cholesterol [Mass/Vol] 245 mg/dL High 200 [facility] Comment on above: Order Comment: Order Date: 09/28/24 Order Info: 0786-1 - CMP Order Info: [id number] - LIPID Order Info: [id number] - PSA Result Comment: <200 mg/dL Desirable 200-240 mg/dL Borderline >240 mg/dL High Risk Performed By: #### L 501.9910, L506.1000, L500.4050, L503.0105, L500.4100 #### [facility] [address] [place], [address] Cholesterol in HDL [Mass/Vol] 81 mg/dL Normal [facility] Comment on above: Order Comment: Order Date: 09/28/24 Order Info: [id number] - CMP Order Info: [id number] - LIPID Order Info: [id number] - PSA Result Comment: The drugs N-Acetylcysteine and Metamizole may falsely depress this assay. Reference Range HDL <40 mg/dL Low HDL Cholesterol HDL >or= 60 mg/dL High HDL Cholesterol Performed By: #### L 501.9910, L506.1000, L500.4050, L503.0105, L500.4100 #### [facility] [address] [place], [address] Cholesterol in LDL [Mass/Vol] 144 mg/dL High 0-130 [facility] Comment on above: Order Comment: Order Date: 09/28/24 Order Info: 0786 - CMP Order Info: [id number] - LIPID Order Info: [id number]- - PSA Performed By: #### L 501.9910, L506.1000, L500.4050, L503.0105, L500.4100 #### [facility] [address] [place], [address] Cholesterol in VLDL [Mass/Vol] 20 mg/dL Normal 5-40 [facility] Comment on above: Order Comment: Order Date: 09/28/24 Order Info: 0786- - CMP Order Info: [id number] - LIPID Order Info: [id number] - PSA Performed By: #### L 501.9910, L506.1000, L500.4050, L503.0105, L500.4100 #### [facility] [address] [place], [address] Triglyceride [Mass/Vol] 101 mg/dL Normal [facility] Comment on above: Order Comment: Order Date: 09/28/24 Order Info: [id number] - CMP Order Info: [id number] - LIPID Order Info: [id number] - PSA Result Comment: The drugs N-Acetylcysteine and Metamizole may falsely depress this assay. Serum Triglycerides Reference Interval Normal <150 mg/dL Borderline high 150 - 199 mg/dL High 200 - 499 mg/dL Very High > or = 500 mg/dL Performed By: #### L 501.9910, L506.1000, L500.4050, L503.0105, L500.4100 #### [facility] [address] [place], [address] Low density lipoprotein (LDL ) cholesterol measurementOrdered By: Eduard Henley on 09-28-2024 Cholesterol in LDL [Mass/Vol] 144 mg/dL High 0-130 [facility] PSA,Total - Annual Screenon 09-28-2024 PSA,TOT SCREEN 0.78 ng/mL Normal 0.00-4.00 [facility] Comment on above: Order Comment: Order Date: 09/28/24Order Info: [id number] - CMPOrder Info: [id number] - LIPIDOrder Info: [id number] - PSA Result Comment: This test was performed using the TPSA assay method for the [employer] chemistry system. Values obtained with different assay methods cannot be used interchangably. When changing PSA assays in the course of monitoring a patient, additional sequential testing should be carried out to confirm baseline values. Performed By: #### L 501.9910, L506.1000, L500.4050, L503.0105, L500.4100 ####[facility] [address] [place], [place], [id number] Potassium measurementOrdered By: Eduard Henley on 09-28-2024 Potassium [Moles/Vol] 4.4 mmol/L 3.5-5.1 [facility] Screening prostate specific antigen (PSA) measurementOrdered By: Eduard Henley on 09-28-2024 Prostate Specific Antigen Screen 0.78 ng/mL 0.00-4.00 [facility] Comment on above: This test was perfor med using the TPSA assay method for the[employer]ension chemistry system. Values obtained with differentassay methods cannot be used interchangably.When changing PSA assays in the course of monitoring apatient, additional sequential testing should be carriedout to confirm baseline values. Serum anion gap measurementO rdered By: Eduard Henley on 09-28-2024 Anion gap [Moles/Vol] 5 mmol/L 5-15 [facility] Serum globulin measurementOr dered By: Eduard Henley on 09-28-2024 Globulin (S) [Mass/Vol] 4.8 g/dL High 2.2-4.2 [facility] Serum or plasma alanine pedraza otransferase (ALT) measurementOrdered By: Eduard Henley on 09-28-2024 ALT [Catalytic activity/Vol] 38 U/L 16-61 [facility] Serum or plasma albumin randa urement (mass/volume)Ordered By: Eduard Henley on 09-28-2024 Albumin [Mass/Vol] 3.7 g/dL 3.2-5.0 [facility] Serum or plasma alkaline saw sphatase measurementOrdered By: Eduard Henley on 09-28-2024 ALP [Catalytic activity/Vol] 66 U/L 45-117 [facility] Serum or plasma calcium randa urement (mass/volume)Ordered By: Eduard Henley on 09-28-2024 Calcium [Mass/Vol] 9.9 mg/dL 8.5-10.1 [facility] Serum or plasma cholesterol measurement (mass/volume)Ordered By: Eduard Henley on 09-28-2024 Cholesterol [Mass/Vol] 245 mg/dL High <200 [facility] Comment on above: <200 mg/dL Desirable 200-240 mg/dL Borderline >240 mg/dL High Risk Serum or plasma creatinine m easurement (mass/volume)Ordered By: Eduard Henley on 09-28-2024 Creatinine [Mass/Vol] 1.20 mg/dL 0.70-1.30 [facility] Comment on above: The validity of the calculated GFR & GFRAA in patients over 70 years has not been determined. Clinical correlation is essential. Serum or plasma urea nitroge n measurement (mass/volume)Ordered By: Eduard Henley on 09-28-2024 Urea nitrogen [Mass/Vol] 18 mg/dL 7-18 [facility] Sodium levelOrdered By: Rubina surendraher Henley on 09-28-2024 Sodium [Moles/Vol] 138 mmol/L 136-145 [facility] Total proteinOrdered By: Mukesh juanher Henley on 09-28-2024 Protein [Mass/Vol] 8.5 g/dL High 6.4-8.2 [facility] Triglycerides measurementOrd ered By: Eduard Henley on 09-28-2024 Triglyceride [Mass/Vol] 101 mg/dL <199 [facility] Comment on above: The drugs N-Acetylcy steine and Metamizole may falsely depress this assay.Serum Triglycerides Reference Interval Normal <150 mg/dL Borderline high 150 - 199 mg/dL High 200 - 499 mg/dL Very High > or = 500 mg/dL Very low density lipoprotein (VLDL) cholesterol measurementOrdered By: Eduard Henley on 09-28-2024 Very low density lipoprotein (VLDL) cholesterol measurement 20 mg/dL 5-40 [facility] VLDL Cholesterol 20 mg/dL 5-40 [facility] Vitamin B12on 09-28-2024 Cobalamin (Vitamin B12) [Mass/Vol] 337 pg/mL Normal 211-911 [facility] Comment on above: Order Comment: Order Date: 09/28/24Order Info: [id number] - [id number] Info: [id number] Performed By: #### L 501.9910, L506.1000, L500.4050, L503.0105, L500.4100 ####[facility] [address] [place], [address] Vitamin B12 measurementOrder ed By: Eduard Henley on 09-28-2024 Cobalamin (Vitamin B12) [Mass/Vol] 337 pg/mL 211-911 [facility] 12 Lead EKGon 09-03-2024 12 Lead EKG [facility] Cardiovascular Services [address] [place] [address] 12 Lead EKG 09/03/24 0023 MR#: [id number] Acct: [id number] Name: JOVANY MUÑIZ Rep #: [id number] : 1965 58 From: Eileen Ray MD [...] Abnormal ECG Confirmed by FLOR SY, GUANAKO ([id number]), videotape editor RUBI ROMERO ([id number]) on 09/07/2024 7:16:39 AM Referred By: TB Confirmed By: GUANAKO RAY MD 09/07/24 0716 Date Eileen Ray MD CC: Dr. Eduard Henley MD; Dr. Jesus Romero, Signed Normal [facility] Absolute neutrophil countOrd ered By: Jesus Romero on 09-03-2024 Neutrophils (Bld) [#/Vol] 3.1 10*3/uL 2.0-7.7 [facility] BNP (brain natriuretic pepti de measurement)Ordered By: Jesus Romero on 09-03-2024 Natriuretic peptide B (Bld) [Mass/Vol] 7.1 pg/mL 0-100 [facility] BNP,B-Type NATRIURETIC PEPTI Torrey 09-03-2024 Natriuretic peptide B (Bld) [Mass/Vol] 7.1 pg/mL Normal 0-100 [facility] Comment on above: Performed By: #### L 501.5425, L501.5200, L100.0100, L503.6620, L500.2500, L501.9520 ####[facility] [address] [place], [address] Basic Metabolic Profile (BMP )on 09-03-2024 BUN/CRE 14.0 RATIO Normal 10-20 [facility] Comment on above: Order Comment: 1Y Performed By: #### L 501.5425, L501.5200, L100.0100, L503.6620, L500.2500, L501.9520 ####[facility] [address] [place], [address] CA,Total 9.3 mg/dL Normal 8.5-10.1 [facility] Comment on above: Order Comment: 1Y Performed By: #### L 501.5425, L501.5200, L100.0100, L503.6620, L500.2500, L501.9520 ####[facility] [address] [place], [address] Chloride [Moles/Vol] 104 mmol/L Normal 98-107 [facility] Comment on above: Order Comment: 1Y Performed By: #### L 501.5425, L501.5200, L100.0100, L503.6620, L500.2500, L501.9520 ####[facility] [address] [place], [address] CO2 [Moles/Vol] 26.0 mmol/L Normal 21.0-32.0 [facility] Comment on above: Order Comment: 1Y Performed By: #### L 501.5425, L501.5200, L100.0100, L503.6620, L500.2500, L501.9520 ####[facility] [address] [place], [address] Creatinine [Mass/Vol] 1.29 mg/dL Normal 0.70-1.30 [facility] Comment on above: Order Comment: 1Y Result Comment: The validity of the calculated GFR GFRAA in patients over 70 years has not been determined. Clinical correlation is essential. Performed By: #### L 501.5425, L501.5200, L100.0100, L503.6620, L500.2500, L501.9520 ####[facility] [address] [place], [address] ECRCL 73.11 ml/min Normal [facility] Comment on above: Order Comment: 1Y Performed By: #### L 501.5425, L501.5200, L100.0100, L503.6620, L500.2500, L501.9520 ####[facility] [address] [place], [address] EST GFR - AA 73 mL/min Normal >60 [facility] Comment on above: Order Comment: 1Y Result Comment: Afri can Vincentian GFR Calc Performed By: #### L 501.5425, L501.5200, L100.0100, L503.6620, L500.2500, L501.9520 ####[facility] [address] [place], [address] GAP 8 Normal 5-15 [facility] Comment on above: Order Comment: 1Y Performed By: #### L 501.5425, L501.5200, L100.0100, L503.6620, L500.2500, L501.9520 ####[facility] [address] [place], [address] GFR/1.73 sq M.predicted among non-blacks MDRD (S/P/Bld) [Vol rate/Area] 60 mL/min/{1.73_m2} Normal >60 [facility] Comment on above: Order Comment: 1Y Result Comment: Non- GFR Calc Performed By: #### L 501.5425, L501.5200, L100.0100, L503.6620, L500.2500, L501.9520 ####[facility] [address] [place], [address] Glucose [Mass/Vol] 102 mg/dL Normal 74-106 [facility] Comment on above: Order Comment: 1Y Result Comment: Fast ing Glucose result from 100 to 125 mg/dL suggests IMPAIRED HOMEOSTASIS per A.D.A. criteria. Performed By: #### L 501.5425, L501.5200, L100.0100, L503.6620, L500.2500, L501.9520 ####[facility] [address] [place], [address] Potassium [Moles/Vol] 3.8 mmol/L Normal 3.5-5.1 [facility] Comment on above: Order Comment: 1Y Result Comment: Slig ht Hemolysis, Result may be falsely increased. Performed By: #### L 501.5425, L501.5200, L100.0100, L503.6620, L500.2500, L501.9520 ####[facility] [address] [place], [address] Sodium [Moles/Vol] 138 mmol/L Normal 136-145 [facility] Comment on above: Order Comment: 1Y Performed By: #### L 501.5425, L501.5200, L100.0100, L503.6620, L500.2500, L501.9520 ####[facility] [address] [place], [address] Urea nitrogen [Mass/Vol] 18 mg/dL Normal 7-18 [facility] Comment on above: Order Comment: 1Y Performed By: #### L 501.5425, L501.5200, L100.0100, L503.6620, L500.2500, L501.9520 ####[facility] [address] [place], [address] Basophil percentageOrdered B y: Jesus Romero on 09-03-2024 Basophils/100 WBC (Bld) 1.2 % High 0-1 [facility] Blood urea nitrogen (BUN)/cr eatinine ratioOrdered By: Jesus Romero on 09-03-2024 Urea nitrogen/Creatinine [Mass ratio] 14.0 mg/mg 10-20 [facility] CBC W/Diff, Automatedon 01-2 Absolute Lymph 1.72 X10 3/uL Normal 0.83-4.51 [facility] Comment on above: Performed By: #### L 501.5425, L501.5200, L100.0100, L503.6620, L500.2500, L501.9520 ####[facility] [address] [place], [address] Absolute Neut 3.1 X10 3/uL Normal 2.0-7.7 [facility] Comment on above: Performed By: #### L 501.5425, L501.5200, L100.0100, L503.6620, L500.2500, L501.9520 ####[facility] [address] [place], [address] Basophils/100 WBC (Bld) 1.2 % High 0-1 [facility] Comment on above: Performed By: #### L 501.5425, L501.5200, L100.0100, L503.6620, L500.2500, L501.9520 ####[facility] [address] [place], [address] Eosinophils/100 WBC (Bld) 3.3 % Normal 0-5 [facility] Comment on above: Performed By: #### L 501.5425, L501.5200, L100.0100, L503.6620, L500.2500, L501.9520 ####[facility] [address] [place], [address] Erythrocyte distribution width (RBC) [Ratio] 13.2 % Normal 11.6-14.6 [facility] Comment on above: Performed By: #### L 501.5425, L501.5200, L100.0100, L503.6620, L500.2500, L501.9520 ####[facility] [address] [place], [address] Hematocrit (Bld) [Volume fraction] 39.8 % Low 40-54 [facility] Comment on above: Performed By: #### L 501.5425, L501.5200, L100.0100, L503.6620, L500.2500, L501.9520 ####[facility] [address] [place], [address] Hemoglobin (Bld) [Mass/Vol] 13.4 g/dL Normal 13.0-16.5 [facility] Comment on above: Performed By: #### L 501.5425, L501.5200, L100.0100, L503.6620, L500.2500, L501.9520 ####[facility] [address] [place], [address] IG% 0.500 Normal 0.0-0.9 [facility] Comment on above: Result Comment: IG% - Immature Granulocytes (promyelocytes, myelocytes and metamyelocytes) > 1% indicates that a LEFT SHIFT is Present. Performed By: #### L 501.5425, L501.5200, L100.0100, L503.6620, L500.2500, L501.9520 ####[facility] [address] [place], [address] Lymphocytes/100 WBC (Bld) 30.3 % Normal 19-41 [facility] Comment on above: Performed By: #### L 501.5425, L501.5200, L100.0100, L503.6620, L500.2500, L501.9520 ####[facility] [address] [place], [address] MCH (RBC) [Entitic mass] 33.0 pg High 27.0-32.0 [facility] Comment on above: Performed By: #### L 501.5425, L501.5200, L100.0100, L503.6620, L500.2500, L501.9520 ####[facility] [address] [place], [address] MCHC (RBC) [Mass/Vol] 33.7 g/dL Normal 32-36 [facility] Comment on above: Performed By: #### L 501.5425, L501.5200, L100.0100, L503.6620, L500.2500, L501.9520 ####[facility] [address] [place], [address] MCV (RBC) [Entitic vol] 98.0 fL High 80-94 [facility] Comment on above: Performed By: #### L 501.5425, L501.5200, L100.0100, L503.6620, L500.2500, L501.9520 ####[facility] [address] [place], [address] Monocytes/100 WBC (Bld) 10.9 % High 0-10 [facility] Comment on above: Performed By: #### L 501.5425, L501.5200, L100.0100, L503.6620, L500.2500, L501.9520 ####[facility] [address] [place], [address] Neutrophils/100 WBC (Bld) 53.8 % Normal 47-70 [facility] Comment on above: Performed By: #### L 501.5425, L501.5200, L100.0100, L503.6620, L500.2500, L501.9520 ####[facility] [address] [place], [address] Nucleated RBC (Bld) [#/Vol] 0 10*3/uL Normal 0-5 [facility] Comment on above: Performed By: #### L 501.5425, L501.5200, L100.0100, L503.6620, L500.2500, L501.9520 ####[facility] [address] [place], [address] Platelet mean volume (Bld) [Entitic vol] 10.0 fL Normal 6.2-12.0 [facility] Comment on above: Performed By: #### L 501.5425, L501.5200, L100.0100, L503.6620, L500.2500, L501.9520 ####[facility] [address] [place], [address] Platelets (Bld) [#/Vol] 236 10*3/uL Normal 150-450 [facility] Comment on above: Performed By: #### L 501.5425, L501.5200, L100.0100, L503.6620, L500.2500, L501.9520 ####[facility] [address] [place], [address] RBC (Bld) [#/Vol] 4.06 10*6/uL Low 4.6-6.2 [facility] Comment on above: Performed By: #### L 501.5425, L501.5200, L100.0100, L503.6620, L500.2500, L501.9520 ####[facility] [address] [place], [address] RDW SD 47.3 fl High 35.1-43.9 [facility] Comment on above: Performed By: #### L 501.5425, L501.5200, L100.0100, L503.6620, L500.2500, L501.9520 ####[facility] [address] [place], [address] WBC (Bld) [#/Vol] 5.7 10*3/uL Normal 4.4-11.0 [facility] Comment on above: Performed By: #### L 501.5425, L501.5200, L100.0100, L503.6620, L500.2500, L501.9520 ####[facility] [address] [place], [address] Carbon dioxide measurementOr dered By: Jesus Romero on 09-03-2024 CO2 [Moles/Vol] 26.0 mmol/L 21.0-32.0 [facility] Chest PA and Lateralon 09-03 Chest PA and Lateral [facility] Imaging Services [address] [place] [address] Chest PA and Lateral MR#: [id number] Acct: [id number] Name: JOVANY MUÑIZ Rep #: [id number] : 1965 M 58 From: Layne Suh MD PCP: Dr. Eduard Henley MD Status: REG ER Study: Chest PA and Lateral Date of Exam: 09/03/24 Exam# [id number] Ordering Dr: Jesus Romero DO -[id number] STUDY: X-RAY CHEST REASON FOR EXAM: [...] Eduard Henley MD; Dr. Jesus Romero DO Group Home Paraprofessional: Signed Normal [facility] Chloride measurementOrdered By: Jesus Romero on 09-03-2024 Chloride [Moles/Vol] 104 mmol/L 98-107 [facility] D-Dimer Quantitative (DVT/PE )on 09-03-2024 D-DIMER QUANT 0.44 FEU/ug/m Normal 0.27-0.49 [facility] Comment on above: Result Comment: NORM AL D-Dimer level (<0.50) indicates no DVT or PE. Performed By: #### L 300.8000 #### [facility] [address] [facility] [place], [address] D-dimer measurement for deep venous thrombosisOrdered By: Jesus Romero on 09-03-2024 D-Dimer Quantitative (PE/DVT) 0.44 FEU/ug/m 0.27-0.49 [facility] Comment on above: NORMAL D-Dimer level (<0.50) indicates no DVT or PE. Emergency Department Summary on 09-03-2024 Emergency Department Summary [facility] Medical Records Department [address] [place] [address] Emergency Department Summary 09/03/24 MR#: [id number] Acct: [id number] Name: JOVANY MUÑIZ Rep #: [id number] : 1965 58 From: Jesus Romero DO [...] strenuous. Patient states that he saw his customs inspector the day after Gisela and the checkup went well. 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 Normal [facility] Eosinophil percentageOrdered By: Jesus Romero on 09-03-2024 Eosinophils/100 WBC (Bld) 3.3 % 0-5 [facility] Erythrocyte distribution wid th ratioOrdered By: Jesus Romero on 09-03-2024 Erythrocyte distribution width (RBC) [Ratio] 13.2 % 11.6-14.6 [facility] Erythrocyte distribution wid th standard deviationOrdered By: Jesus Romero on 09-03-2024 Erythrocyte distribution width (RBC) [Entitic vol] 47.3 fL High 35.1-43.9 [facility] Estimated glomerular filtrat ion rate (GFR) AmericanOrdered By: Jesus Romero on 09-03-2024 Estimated GFR (MDRD) Amer 73 mL/min >60 [facility] Comment on above: GFR Calc Estimation of creatinine liudmila aranceOrdered By: Jesus Romero on 09-03-2024 Estimated Creatinine Clearance Calc 73.11 ml/min [facility] Glomerular filtration rate ( GFR) estimationOrdered By: Jesus Romero on 09-03-2024 Estimated GFR (MDRD) Non-Af Amer 60 mL/min >60 [facility] Comment on above: Non- GFR Calc Glucose measurementOrdered B y: Jesus Romero on 09-03-2024 Glucose [Mass/Vol] 102 mg/dL 74-106 [facility] Comment on above: Fasting Glucose resu lt from 100 to 125 mg/dL suggests IMPAIRED HOMEOSTASIS per A.D.A. criteria. Hematocrit Auto (Bld) [Volum e fraction]Ordered By: Jesus Romero on 09-03-2024 Hematocrit (Bld) [Volume fraction] 39.8 % Low 40-54 [facility] Hemoglobin measurementOrdere d By: Jesus Romero on 09-03-2024 Hemoglobin (Bld) [Mass/Vol] 13.4 g/dL 13.0-16.5 [facility] Immature granulocytes/100 WB C Auto (Bld)Ordered By: Jesus Roemro on 09-03-2024 Immature granulocytes/100 WBC (Bld) 0.500 % 0.0-0.9 [facility] Comment on above: IG% - Immature Granu locytes (promyelocytes, myelocytes and metamyelocytes) > 1% indicates that a LEFT SHIFT is Present. Influenza virus A and B and SARS-CoV-2 (COVID-19) and Respiratory syncytial virus RNAOrdered By: Jesus Romero on 09-03-2024 SARS-CoV-2 (COVID-19) RNA LINDSAY+probe Ql (Unsp spec) [facility] L501.4020on 09-03-2024 TROPONIN-I HS 6 pg/mL Normal 3.0-78.0 [facility] Comment on above: Order Comment: 2 Result Comment: Plea se Note: New Test Units and Gender Specific Reference Ranges. For more information see Policy Stat Procedure [place] High Sensitivity Troponin (TNIH) and attachments. Performed By: #### L 500.2500, L501.4021, L100.0100 #### [facility] [address] [place], [address] L501.5425on 09-03-2024 TROPONIN-I HS 5 pg/mL Normal 3.0-78.0 [facility] Comment on above: Order Comment: 1Y Result Comment: Plea se Note: New Test Units and Gender Specific Reference Ranges. For more information see Policy Stat Procedure [place] High Sensitivity Troponin (TNIH) and attachments. Performed By: #### L 501.5425, L501.5200, L100.0100, L503.6620, L500.2500, L501.9520 ####[facility] [address] [place], [address] Lymphocytes Auto (Unsp spec) [#/Vol]Ordered By: Jesus Romero on 09-03-2024 Lymphocytes (Bld) [#/Vol] 1.72 10*3/uL 0.83-4.51 [facility] Lymphocytes/100 WBC Auto (Un sp spec)Ordered By: Jesus Romero on 09-03-2024 Lymphocytes/100 WBC (Bld) 30.3 % 19-41 [facility] M100.678on 09-03-2024 M100.678 Pending SARS-CoV-2 (COVID 19) Negative INFLUENZA A Negative INFLUENZA B Negative RSV PCR Negative Normal [facility] Comment on above: Performed By: #### L 500.2500, L501.4021, L100.0100 #### [facility] [address] [place], [address] MCV (mean corpuscular volume ) determinationOrdered By: Jesus Romero on 09-03-2024 MCV (RBC) [Entitic vol] 98.0 fL High 80-94 [facility] Magnesiumon 09-03-2024 Magnesium [Mass/Vol] 2.4 mg/dL Normal 1.6-2.6 [facility] Comment on above: Order Comment: 1Y Result Comment: Slig ht Hemolysis, Result may be falsely increased. Performed By: #### L 501.5425, L501.5200, L100.0100, L503.6620, L500.2500, L501.9520 ####[facility] [address] [place], [address] Magnesium measurementOrdered By: Jesus Romero on 09-03-2024 Magnesium [Mass/Vol] 2.4 mg/dL 1.6-2.6 [facility] Comment on above: Slight Hemolysis, Re sult may be falsely increased. Mean corpuscular hemoglobin (MCH) determinationOrdered By: Jesus Romero on 09-03-2024 MCH (RBC) [Entitic mass] 33.0 pg High 27.0-32.0 [facility] Mean corpuscular hemoglobin concentration (MCHC) determinationOrdered By: Jesus Romero on 09-03-2024 MCHC (RBC) [Mass/Vol] 33.7 g/dL 32-36 [facility] Mean platelet volume determi nationOrdered By: Jesus Romero on 09-03-2024 Platelet mean volume (Bld) [Entitic vol] 10.0 fL 6.2-12.0 [facility] Monocyte percentageOrdered B y: Jesus Romero on 09-03-2024 Monocytes/100 WBC (Bld) 10.9 % High 0-10 [facility] Neutrophil percentageOrdered By: Jesus Romero on 09-03-2024 Neutrophils/100 WBC (Bld) 53.8 % 47-70 [facility] Nucleated red blood cell per centageOrdered By: Jesus Romero on 09-03-2024 Nucleated RBC/100 WBC (Bld) [Ratio] 0 % 0-5 [facility] Platelet countOrdered By: Imtiaz Romero on 09-03-2024 Platelets (Bld) [#/Vol] 236 10*3/uL 150-450 [facility] Potassium measurementOrdered By: Jesus Romero on 09-03-2024 Potassium [Moles/Vol] 3.8 mmol/L 3.5-5.1 [facility] Comment on above: Slight Hemolysis, Re sult may be falsely increased. RBC Auto (Bld) [#/Vol]Ordere d By: Jesus Romero on 09-03-2024 RBC (Bld) [#/Vol] 4.06 10*6/uL Low 4.6-6.2 [facility] Serum anion gap measurementO rdered By: Jesus Romero on 09-03-2024 Anion gap [Moles/Vol] 8 mmol/L 5-15 [facility] Serum or plasma calcium randa urement (mass/volume)Ordered By: Jesus Romero on 09-03-2024 Calcium [Mass/Vol] 9.3 mg/dL 8.5-10.1 [facility] Serum or plasma creatinine m easurement (mass/volume)Ordered By: Jesus Romero on 09-03-2024 Creatinine [Mass/Vol] 1.29 mg/dL 0.70-1.30 [facility] Comment on above: The validity of the calculated GFR & GFRAA in patients over 70 years has not been determined. Clinical correlation is essential. Serum or plasma urea nitroge n measurement (mass/volume)Ordered By: Jesus Romero on 09-03-2024 Urea nitrogen [Mass/Vol] 18 mg/dL 7-18 [facility] Sodium levelOrdered By: Amanda Romero on 09-03-2024 Sodium [Moles/Vol] 138 mmol/L 136-145 [facility] TSH QnOrdered By: Jesus hussein on 09-03-2024 Thyroid Stimulating Hormone (TSH) 2.110 uIU/mL 0.358-3.740 [facility] Thyroid Stim Hormone (TSH)on 09-03-2024 TSH 2.110 uIU/mL Normal 0.358-3.740 [facility] Comment on above: Order Comment: 1Y Performed By: #### L 501.5425, L501.5200, L100.0100, L503.6620, L500.2500, L501.9520 ####[facility] [address] [place], [place], [address] Troponin IOrdered By: Jesus Romero on 09-03-2024 Troponin I High Sensitivity 6 pg/mL 3.0-78.0 [facility] Comment on above: Please Note: New Joan t Units and Gender Specific Reference Ranges. For more information see Policy Stat Procedure [place] High Sensitivity Troponin (TNIH) and attachments. White blood cell (WBC) count Ordered By: Jesus Romero on 09-03-2024 WBC (Bld) [#/Vol] 5.7 10*3/uL 4.4-11.0 [facility] Cardiology Visit Reporton Cardiology Visit Report [facility] [address] [place] [address] OFFICE VISIT Date of Service: 08/06/24 MR#: [id number] Acct: [id number] Name: JOVANY MUÑIZ Rep #: [id number] : 1965 Provider: Dr. Jose Lockwood MD Age/Sex: 58/M Location: [facility] Status: Signed HPI HPI History of Present Illness Details: This is a 58-year-old white male who presents today for outpatient cardiovascular follow-up regarding a history of underlying CAD, PCI, hyperlipidemia, and hypertension. 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 Normal [facility] Office Visit Reporton 2023 Office Visit Report [facility] [address] [place] [address] OFFICE VISIT Date of Service: 05/18/24 MR#: [id number] Acct: [id number] Patient: JOVANY MUÑIZ Rep #: [id number] : 1965 Provider: EUGENIA Costello Age/Sex: 58/M Location: [facility] [place] Status: Signed Intake Vital Signs 10/02/23 06:44 05/18/24 12:31 05/18/24 12:50 Height 6 ft 6 ft Intake Visit Reasons: STOMACH ISSUES Chief Complaint: STOMACH ISSUES Disc Inspector Required: No Accompanied by: Self Is patient [...] sent patient to hospital for further evaluation. [facility] Medical History Wears partial dentures High cholesterol Heartburn Gastric reflux History of diverticulitis Former smoker History of heart attack History of echocardiogram History of stress test Hypertension Cardiology follow-up encounter Sigmoid diverticulitis History of coronary artery disease Presence of stent in coronary artery (04/25/23) Essential hypertension HLD (hyperlipidemia) Old myocardial infarction 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 (04/25/23) Surgical [...] for Coding Level of Care Code Attention [employer] Comment Never seen/evaluated-sent to ER by senior front end developer staff. Assessment and Plan Assessment and Plan Patient Instructions: Patient advised by senior front end developer staff to proceed to ER for evaluation. No exam completed at this office. . 05/18/24 1422 Date Akua Vang NP-C Jacinda Signature: Date (if applicable) CC: Normal [facility] Basophil percentageOrdered B y: Carlita Velasquez on 09-10-2023 Bilirubin [Mass/Vol] 0.40 mg/dL 0.20-1.00 [facility] Comment on above: For patients on eltr ombopag therapy, use of Dimension [place] TBIL is not recommended. Chloride [Moles/Vol] 104 mmol/L 98-107 [facility] Glucose [Mass/Vol] 109 mg/dL 74-106 [facility] Comment on above: Fasting Glucose resu lt from 100 to 125 mg/dL suggests IMPAIRED HOMEOSTASIS per A.D.A. criteria. Hemoglobin (Bld) [Mass/Vol] 15.4 g/dL 13.0-16.5 [facility] Potassium [Moles/Vol] 4.6 mmol/L 3.5-5.1 [facility] Protein [Mass/Vol] 8.0 g/dL 6.4-8.2 [facility] Sodium [Moles/Vol] 133 mmol/L 136-145 [facility] WBC (Bld) [#/Vol] 5.9 10*3/uL 4.4-11.0 [facility] Determination of erythrocyte mean corpuscular volume (MCV)Ordered By: Carlita Statlexi on 09-10-2023 MCV (RBC) [Entitic vol] 97.1 fL 80-94 [facility] Erythrocyte distribution wid th ratioOrdered By: [facility] on 09-10-2023 Erythrocyte distribution width (RBC) [Ratio] 13.3 % 11.6-14.6 [facility] Erythrocyte distribution wid th standard deviationOrdered By: [facility] on 09-10-2023 Erythrocyte distribution width (RBC) [Entitic vol] 47.8 fL 35.1-43.9 [facility] Hematocrit Auto (Bld) [Volum e fraction]Ordered By: [facility] on 09-10-2023 Hematocrit (Bld) [Volume fraction] 46.5 % 40-54 [facility] - Chemistry and C hemistry - challengeOrdered By: [facility] on 09-10-2023 Albumin/Globulin [Mass ratio] 0.9 {ratio} 0.9-2.4 [facility] ALP [Catalytic activity/Vol] 63 U/L 45-117 [facility] ALT [Catalytic activity/Vol] 46 U/L 16-61 [facility] CO2 [Moles/Vol] 25.0 mmol/L 21.0-32.0 [facility] Cobalamin (Vitamin B12) [Mass/Vol] 438 pg/mL 211-911 [facility] Globulin (S) [Mass/Vol] 4.3 g/dL 2.2-4.2 [facility] Urea nitrogen/Creatinine [Mass ratio] 20.5 mg/mg 10-20 [facility] - Hematology and Cell countsOrdered By: Carlita Velasquez on 09-10-2023 MCH (RBC) [Entitic mass] 32.2 pg 27.0-32.0 [facility] MCHC (RBC) [Mass/Vol] 33.1 g/dL 32-36 [facility] Platelets (Bld) [#/Vol] 260 10*3/uL 150-450 [facility] No Panel InformationOrdered By: Carlita Velasquez on 09-10-2023 Estimated GFR (MDRD) Amer 107 mL/min >60 [facility] Comment on above: GFR Calc Estimated GFR (MDRD) Non-Af Amer 89 mL/min >60 [facility] Comment on above: Non- GFR Calc Platelet mean volume Codey-Ec ker (Bld) [Entitic vol]Ordered By: Carlita Velasquez on 09-10-2023 Platelet mean volume (Bld) [Entitic vol] 9.9 fL 6.2-12.0 [facility] RBC Auto (Bld) [#/Vol]Ordere d By: Carlita Velasquez on 09-10-2023 RBC (Bld) [#/Vol] 4.79 10*6/uL 4.6-6.2 [facility] Serum or plasma calcitriol m easurement (mass/volume)Ordered By: Carlita Velasquez on 09-10-2023 1,25-dihydroxyvitamin D3 [Mass/Vol] 33.6 pg/mL 24.8-81.5 [facility] Comment on above: Performed at: [address] [id number] Director: Brandie Dial MD, Phone: [phone] Serum or plasma calcium randa urement (mass/volume)Ordered By: Carlita Velasquez on 09-10-2023 Calcium [Mass/Vol] 9.3 mg/dL 8.5-10.1 [facility] Serum or plasma creatinine m easurement (mass/volume)Ordered By: Carlita Velasquez on 09-10-2023 Creatinine [Mass/Vol] 0.93 mg/dL 0.70-1.30 [facility] Comment on above: The validity of the calculated GFR & GFRAA in patients over 70 years has not been determined. Clinical correlation is essential. Serum or plasma urea nitroge n measurement (mass/volume)Ordered By: Carlita Velasquez on 09-10-2023 Urea nitrogen [Mass/Vol] 19 mg/dL 7-18 [facility] Thin prep Papanicolaou smear with manual screeningOrdered By: Carlita Velasquez on 09-10-2023 Thin prep Papanicolaou smear with manual screening 3.7 g/dL 3.2-5.0 [facility] Thin prep Papanicolaou smear with manual screening 32 U/L 15-37 [facility] Thin prep Papanicolaou smear with manual screening 4 5-15 [facility] Whole blood hemoglobin A1c/t otal hemoglobin ratio (mass fraction)Ordered By: Carlita Velasquez on 09-10-2023 HbA1c (Bld) [Mass fraction] 5.5 % 3.8-5.6 [facility] Comment on above: Normal < 5.7 % Predi abetic 5.7 - 6.4 % Diabetic >or= 6.5 % Please note range changes. Basophil percentageOrdered B y: Mitchell Dubois on 07-07-2023 Bilirubin [Mass/Vol] 0.50 mg/dL 0.20-1.00 [facility] Comment on above: For patients on eltr ombopag therapy, use of Dimension [place] TBIL is not recommended. Cholesterol [Mass/Vol] 152 mg/dL <200 [facility] Comment on above: <200 mg/dL Desirable 200-240 mg/dL Borderline >240 mg/dL High Risk Protein [Mass/Vol] 8.2 g/dL 6.4-8.2 [facility] Triglyceride [Mass/Vol] 140 mg/dL <199 [facility] Comment on above: The drugs N-Acetylcy steine and Metamizole may falsely depress this assay.Serum Triglycerides Reference Interval Normal <150 mg/dL Borderline high 150 - 199 mg/dL High 200 - 499 mg/dL Very High > or = 500 mg/dL Direct bilirubinOrdered By: Mitchell Dubois on 07-07-2023 Bilirubin.direct [Mass/Vol] 0.17 mg/dL 0.00-0.30 [facility] - Chemistry and C hemistry - challengeOrdered By: Mitchell Dubois on 07-07-2023 ALP [Catalytic activity/Vol] 72 U/L 45-117 [facility] ALT [Catalytic activity/Vol] 52 U/L 16-61 [facility] Globulin (S) [Mass/Vol] 4.6 g/dL 2.2-4.2 [facility] Serum or plasma albumin randa urement (mass/volume)Ordered By: Mitchell Dubois on 07-07-2023 Albumin [Mass/Vol] 3.6 g/dL 3.2-5.0 [facility] Serum or plasma cholesterol in HDL measurement (mass/volume)Ordered By: Mitchell Dubois on 07-07-2023 Cholesterol in HDL [Mass/Vol] 65 mg/dL >40 [facility] Comment on above: The drugs N-Acetylcy steine and Metamizole may falsely depress this assay. Reference Range HDL <40 mg/dL Low HDL Cholesterol HDL >or= 60 mg/dL High HDL Cholesterol Serum or plasma cholesterol in VLDL measurement (mass/volume)Ordered By: Mitchell Dubois on 07-07-2023 Cholesterol in VLDL [Mass/Vol] 28 mg/dL 5-40 [facility] Serum or plasma low density lipoprotein (LDL) cholesterol measurement (mass/volume)Ordered By: Mitchell Dubois on 07-07-2023 Cholesterol in LDL [Mass/Vol] 59 mg/dL 0-130 [facility] Thin prep Papanicolaou smear with manual screeningOrdered By: Mitchell Dubois on 07-07-2023 Thin prep Papanicolaou smear with manual screening 31 U/L 15-37 [facility] Absolute lymphocyte countOrd ered By: Meliza Ramírez on 06-15-2023 Lymphocytes Auto (Unsp spec) [#/Vol] 0.73 10*3/uL 0.83-4.51 [facility] Basophil percentageOrdered B y: Meliza Ramírez on 06-15-2023 Basophils/100 WBC (Bld) 0.3 % 0-1 [facility] Bilirubin [Mass/Vol] 0.50 mg/dL 0.20-1.00 [facility] Comment on above: For patients on eltr ombopag therapy, use of Dimension [place] TBIL is not recommended. Chloride [Moles/Vol] 109 mmol/L 98-107 [facility] Eosinophils/100 WBC (Bld) 2.6 % 0-5 [facility] Glucose [Mass/Vol] 93 mg/dL 74-106 [facility] Neutrophils (Bld) [#/Vol] 5.7 10*3/uL 2.0-7.7 [facility] Neutrophils/100 WBC (Bld) 81.6 % 47-70 [facility] Potassium [Moles/Vol] 3.6 mmol/L 3.5-5.1 [facility] Protein [Mass/Vol] 6.8 g/dL 6.4-8.2 [facility] Sodium [Moles/Vol] 138 mmol/L 136-145 [facility] WBC (Bld) [#/Vol] 7.0 10*3/uL 4.4-11.0 [facility] Blood erythrocytes count (nu mber/volume)Ordered By: Meliza Ramírez on 06-15-2023 RBC (Bld) [#/Vol] 3.60 10*6/uL 4.6-6.2 [facility] Blood hemoglobin measurement (mass/volume)Ordered By: Meliza Ramírez on 06-15-2023 Hemoglobin (Bld) [Mass/Vol] 11.7 g/dL 13.0-16.5 [facility] Blood lymphocytes/100 leukoc ytesOrdered By: Meliza Ramírez on 06-15-2023 Lymphocytes/100 WBC (Bld) 10.5 % 19-41 [facility] Blood monocytes/100 leukocyt esOrdered By: Meliza Ramírez on 06-15-2023 Monocytes/100 WBC (Bld) 4.6 % 0-10 [facility] Blood platelet mean volumeOr dered By: Meliza Ramírez on 06-15-2023 Platelet mean volume (Bld) [Entitic vol] 9.9 fL 6.2-12.0 [facility] Determination of erythrocyte mean corpuscular volume (MCV)Ordered By: Meliza Ramírez on 06-15-2023 MCV (RBC) [Entitic vol] 101.4 fL 80-94 [facility] Hematocrit Auto (Bld) [Volum e fraction]Ordered By: Meliza Ramírez on 06-15-2023 Hematocrit (Bld) [Volume fraction] 36.5 % 40-54 [facility] - Chemistry and C hemistry - challengeOrdered By: Meliza Ramírez on 06-15-2023 ALP [Catalytic activity/Vol] 61 U/L 45-117 [facility] ALT [Catalytic activity/Vol] 22 U/L 16-61 [facility] CO2 [Moles/Vol] 22.0 mmol/L 21.0-32.0 [facility] Globulin (S) [Mass/Vol] 4.3 g/dL 2.2-4.2 [facility] Urea nitrogen/Creatinine [Mass ratio] 11.1 mg/mg 10-20 [facility] - Hematology and Cell countsOrdered By: Meliza Ramírez on 06-15-2023 Erythrocyte distribution width (RBC) [Entitic vol] 50.3 fL 35.1-43.9 [facility] Erythrocyte distribution width (RBC) [Ratio] 13.4 % 11.6-14.6 [facility] Immature granulocytes/100 WBC (Bld) 0.400 % 0.0-0.9 [facility] Comment on above: IG% - Immature Granu locytes (promyelocytes, myelocytes and metamyelocytes) > 1% indicates that a LEFT SHIFT is Present. MCH (RBC) [Entitic mass] 32.5 pg 27.0-32.0 [facility] Nucleated RBC/100 WBC (Bld) [Ratio] 0 % 0-5 [facility] MCHC Auto (RBC) [Mass/Vol]Or dered By: Meliza Ramírez on 06-15-2023 MCHC (RBC) [Mass/Vol] 32.1 g/dL 32-36 [facility] No Panel InformationOrdered By: Meliza Ramírez on 06-15-2023 Estimated Creatinine Clearance Calc 107.78 ml/min [facility] Estimated GFR (MDRD) Amer 124 mL/min >60 [facility] Comment on above: GFR Calc Estimated GFR (MDRD) Non-Af Amer 103 mL/min >60 [facility] Comment on above: Non- GFR Calc Platelets bldOrdered By: Rubén Ramírez on 06-15-2023 Platelets (Bld) [#/Vol] 205 10*3/uL 150-450 [facility] Serum or plasma albumin randa urement (mass/volume)Ordered By: Meliza Ramírez on 06-15-2023 Albumin [Mass/Vol] 2.5 g/dL 3.2-5.0 [facility] Serum or plasma albumin/glob ulin mass ratioOrdered By: Meliza Ramírez on 06-15-2023 Albumin/Globulin [Mass ratio] 0.6 {ratio} 0.9-2.4 [facility] Serum or plasma calcium randa urement (mass/volume)Ordered By: Meliza Ramírez on 06-15-2023 Calcium [Mass/Vol] 7.9 mg/dL 8.5-10.1 [facility] Serum or plasma creatinine m easurement (mass/volume)Ordered By: Meliza Ramírez on 06-15-2023 Creatinine [Mass/Vol] 0.81 mg/dL 0.70-1.30 [facility] Comment on above: The validity of the calculated GFR & GFRAA in patients over 70 years has not been determined. Clinical correlation is essential. Serum or plasma urea nitroge n measurement (mass/volume)Ordered By: Meliza Ramírez on 06-15-2023 Urea nitrogen [Mass/Vol] 9 mg/dL 7-18 [facility] Thin prep Papanicolaou smear with manual screeningOrdered By: Meliza Ramírez on 06-15-2023 Thin prep Papanicolaou smear with manual screening 12 U/L 15-37 [facility] Thin prep Papanicolaou smear with manual screening 7 5-15 [facility] Absolute lymphocyte countOrd ered By: Donta Swenson on 06-14-2023 Lymphocytes Auto (Unsp spec) [#/Vol] 0.90 10*3/uL 0.83-4.51 [facility] Basophil percentageOrdered B y: Donta Swenson on 06-14-2023 Basophil percentage 0 SEEN /hpf 0-5 [facility] Basophils/100 WBC (Bld) 0.3 % 0-1 [facility] Bilirubin [Mass/Vol] 0.60 mg/dL 0.20-1.00 [facility] Comment on above: For patients on eltr ombopag therapy, use of Dimension [place] TBIL is not recommended. Chloride [Moles/Vol] 108 mmol/L 98-107 [facility] Eosinophils/100 WBC (Bld) 2.5 % 0-5 [facility] Glucose [Mass/Vol] 119 mg/dL 74-106 [facility] Comment on above: Fasting Glucose resu lt from 100 to 125 mg/dL suggests IMPAIRED HOMEOSTASIS per A.D.A. criteria. Neutrophils (Bld) [#/Vol] 7.4 10*3/uL 2.0-7.7 [facility] Neutrophils/100 WBC (Bld) 83.8 % 47-70 [facility] Potassium [Moles/Vol] 4.4 mmol/L 3.5-5.1 [facility] Protein [Mass/Vol] 8.0 g/dL 6.4-8.2 [facility] Sodium [Moles/Vol] 139 mmol/L 136-145 [facility] WBC (Bld) [#/Vol] 8.9 10*3/uL 4.4-11.0 [facility] Bilirubin Test strip Ql (U)O rdered By: Donta Swenson on 06-14-2023 Bilirubin Ql (U) Negative Negative [facility] Blood erythrocytes count (nu mber/volume)Ordered By: Donta Swenson on 06-14-2023 RBC (Bld) [#/Vol] 4.32 10*6/uL 4.6-6.2 [facility] Blood hemoglobin measurement (mass/volume)Ordered By: Donta Swenson on 06-14-2023 Hemoglobin (Bld) [Mass/Vol] 14.1 g/dL 13.0-16.5 [facility] Blood lymphocytes/100 leukoc ytesOrdered By: Donta Swenson on 06-14-2023 Lymphocytes/100 WBC (Bld) 10.2 % 19-41 [facility] Blood monocytes/100 leukocyt esOrdered By: Donta Swenson on 06-14-2023 Monocytes/100 WBC (Bld) 2.7 % 0-10 [facility] Blood platelet mean volumeOr dered By: Donta Swenson on 06-14-2023 Platelet mean volume (Bld) [Entitic vol] 9.4 fL 6.2-12.0 [facility] Determination of erythrocyte mean corpuscular volume (MCV)Ordered By: Donta Swenson on 06-14-2023 MCV (RBC) [Entitic vol] 100.2 fL 80-94 [facility] Hematocrit Auto (Bld) [Volum e fraction]Ordered By: Donta Swenson on 06-14-2023 Hematocrit (Bld) [Volume fraction] 43.3 % 40-54 [facility] Ketones Test strip Ql (U)Ord ered By: Donta Swenson on 06-14-2023 Ketones Ql (U) Negative Negative [facility] - Chemistry and C hemistry - challengeOrdered By: Donta Swenson on 06-14-2023 ALP [Catalytic activity/Vol] 72 U/L 45-117 [facility] ALT [Catalytic activity/Vol] 30 U/L 16-61 [facility] CO2 [Moles/Vol] 27.0 mmol/L 21.0-32.0 [facility] Globulin (S) [Mass/Vol] 4.8 g/dL 2.2-4.2 [facility] Lipase [Catalytic activity/Vol] 235 U/L 13-75 [facility] Comment on above: Please note:LIPASE r evised reference range effective 22. New Lipase methodology. Expected to produce lower values than the previous assay method. NEW Reference Range: 13 - 75 U/L Urea nitrogen/Creatinine [Mass ratio] 11.9 mg/mg 10-20 [facility] - Hematology and Cell countsOrdered By: Donta Swenson on 06-14-2023 Erythrocyte distribution width (RBC) [Entitic vol] 48.7 fL 35.1-43.9 [facility] Erythrocyte distribution width (RBC) [Ratio] 13.1 % 11.6-14.6 [facility] Immature granulocytes/100 WBC (Bld) 0.500 % 0.0-0.9 [facility] Comment on above: IG% - Immature Granu locytes (promyelocytes, myelocytes and metamyelocytes) > 1% indicates that a LEFT SHIFT is Present. MCH (RBC) [Entitic mass] 32.6 pg 27.0-32.0 [facility] Nucleated RBC/100 WBC (Bld) [Ratio] 0 % 0-5 [facility] MCHC Auto (RBC) [Mass/Vol]Or dered By: Donta Swenson on 06-14-2023 MCHC (RBC) [Mass/Vol] 32.6 g/dL 32-36 [facility] Mucus LM Ql (Urine sed)Order ed By: Donta Swenson on 06-14-2023 Mucus Ql (Urine sed) 0 SEEN /hpf [facility] Nitrite Test strip Ql (U)Ord ered By: Donta Swenson on 06-14-2023 Nitrite Ql (U) Negative Negative [facility] No Panel InformationOrdered By: Donta Swenson on 06-14-2023 Estimated Creatinine Clearance Calc 80.09 ml/min [facility] Estimated GFR (MDRD) Amer 89 mL/min >60 [facility] Comment on above: GFR Calc Estimated GFR (MDRD) Non-Af Amer 73 mL/min >60 [facility] Comment on above: Non- GFR Calc Platelets bldOrdered By: Goldie Swenson on 06-14-2023 Platelets (Bld) [#/Vol] 251 10*3/uL 150-450 [facility] Protein Test strip Ql (U)Ord ered By: Donta Swenson on 06-14-2023 Protein Ql (U) Negative Negative [facility] Serum or plasma albumin randa urement (mass/volume)Ordered By: Donta Swenson on 06-14-2023 Albumin [Mass/Vol] 3.2 g/dL 3.2-5.0 [facility] Serum or plasma albumin/glob ulin mass ratioOrdered By: Donta Swenson on 06-14-2023 Albumin/Globulin [Mass ratio] 0.7 {ratio} 0.9-2.4 [facility] Serum or plasma calcium randa urement (mass/volume)Ordered By: Donta Swenson on 06-14-2023 Calcium [Mass/Vol] 9.0 mg/dL 8.5-10.1 [facility] Serum or plasma creatinine m easurement (mass/volume)Ordered By: Donta Swenson on 06-14-2023 Creatinine [Mass/Vol] 1.09 mg/dL 0.70-1.30 [facility] Comment on above: The validity of the calculated GFR & GFRAA in patients over 70 years has not been determined. Clinical correlation is essential. Serum or plasma urea nitroge n measurement (mass/volume)Ordered By: Donta Swenson on 06-14-2023 Urea nitrogen [Mass/Vol] 13 mg/dL 7-18 [facility] Squamous epithelial cells de tection in urine sediment by light microscopyOrdered By: Donta Swenson on 06-14-2023 Epithelial cells.squamous LM Ql (Urine sed) 0 SEEN /hpf 0-5 [facility] Thin prep Papanicolaou smear with manual screeningOrdered By: Donta Swenson on 06-14-2023 Thin prep Papanicolaou smear with manual screening 18 U/L 15-37 [facility] Thin prep Papanicolaou smear with manual screening 4 5-15 [facility] Urine blood detectionOrdered By: Donta Swenson on 06-14-2023 RBC Ql (U) Negative Negative [facility] RBC Ql (U) 0 SEEN /hpf 0-5 [facility] Urine clarityOrdered By: Goldie Swenson on 06-14-2023 Clarity (U) Clear Clear [facility] Urine color determinationOrd ered By: Donta Swenson on 06-14-2023 Color (U) Yellow Yellow [facility] Urine glucose detectionOrder ed By: Donta Swenson on 06-14-2023 Glucose Ql (U) Normal mg/dl Normal [facility] Urine leukocyte esterase det ection by dipstickOrdered By: Donta Swenson on 06-14-2023 Leukocyte esterase Test strip Ql (U) Negative Negative [facility] Urine pHOrdered By: Donta dickerson on 06-14-2023 pH (U) 7.0 [pH] 5.0 - 8.0 [facility] Urine sediment bacteria coun t by microscopy (number/high power field)Ordered By: Donta Swenson on 06-14-2023 Bacteria LM.HPF (Urine sed) [#/Area] 0 /[HPF] None Seen [facility] Urine specific gravity measu rementOrdered By: Donta Swenson on 06-14-2023 Specific gravity (U) [Rel density] 1.010 1.002-1.030 [facility] Urobilinogen Auto test strip Ql (U)Ordered By: Donta Swenson on 06-14-2023 Urobilinogen Ql (U) Normal mg/dl Normal [facility] Basophil percentageOrdered B y: Sergei Henley on 06-02-2023 Bilirubin [Mass/Vol] 0.30 mg/dL 0.20-1.00 [facility] Comment on above: For patients on eltr ombopag therapy, use of Dimension [place] TBIL is not recommended. Chloride [Moles/Vol] 109 mmol/L 98-107 [facility] Glucose [Mass/Vol] 103 mg/dL 74-106 [facility] Comment on above: Fasting Glucose resu lt from 100 to 125 mg/dL suggests IMPAIRED HOMEOSTASIS per A.D.A. criteria. Potassium [Moles/Vol] 4.6 mmol/L 3.5-5.1 [facility] Protein [Mass/Vol] 7.6 g/dL 6.4-8.2 [facility] Sodium [Moles/Vol] 141 mmol/L 136-145 [facility] WBC (Bld) [#/Vol] 6.3 10*3/uL 4.4-11.0 [facility] Blood erythrocytes count (nu mber/volume)Ordered By: Sergei Henley on 06-02-2023 RBC (Bld) [#/Vol] 4.21 10*6/uL 4.6-6.2 [facility] Blood hemoglobin measurement (mass/volume)Ordered By: Sergei Henley on 06-02-2023 Hemoglobin (Bld) [Mass/Vol] 13.7 g/dL 13.0-16.5 [facility] Blood platelet mean volumeOr dered By: Sergei Henley on 06-02-2023 Platelet mean volume (Bld) [Entitic vol] 9.8 fL 6.2-12.0 [facility] Determination of erythrocyte mean corpuscular volume (MCV)Ordered By: Sergei Henley on 06-02-2023 MCV (RBC) [Entitic vol] 100.7 fL 80-94 [facility] Erythrocyte sedimentation ra teOrdered By: Sergei Henley on 06-02-2023 ESR (Bld) [Velocity] 8 mm/h 0-20 [facility] Hematocrit Auto (Bld) [Volum e fraction]Ordered By: Sergei Henley on 06-02-2023 Hematocrit (Bld) [Volume fraction] 42.4 % 40-54 [facility] Iron measurement (mass/mass) Ordered By: Sergei Henley on 06-02-2023 Iron (Unsp spec) [Mass/Mass] 101 ug/dL 65-175 [facility] - Chemistry and C hemistry - challengeOrdered By: Sergei Henley on 06-02-2023 ALP [Catalytic activity/Vol] 72 U/L 45-117 [facility] ALT [Catalytic activity/Vol] 35 U/L 16-61 [facility] CO2 [Moles/Vol] 28.0 mmol/L 21.0-32.0 [facility] Cobalamin (Vitamin B12) [Mass/Vol] 309 pg/mL 211-911 [facility] Globulin (S) [Mass/Vol] 4.2 g/dL 2.2-4.2 [facility] Magnesium [Mass/Vol] 2.6 mg/dL 1.6-2.6 [facility] Urea nitrogen/Creatinine [Mass ratio] 14.4 mg/mg 10-20 [facility] - Hematology and Cell countsOrdered By: Sergei Henley on 06-02-2023 Erythrocyte distribution width (RBC) [Entitic vol] 47.6 fL 35.1-43.9 [facility] Erythrocyte distribution width (RBC) [Ratio] 12.8 % 11.6-14.6 [facility] MCH (RBC) [Entitic mass] 32.5 pg 27.0-32.0 [facility] MCHC Auto (RBC) [Mass/Vol]Or dered By: Sergei Henley on 06-02-2023 MCHC (RBC) [Mass/Vol] 32.3 g/dL 32-36 [facility] No Panel InformationOrdered By: Sergei Henley on 06-02-2023 Estimated GFR (MDRD) Amer 101 mL/min >60 [facility] Comment on above: GFR Calc Estimated GFR (MDRD) Non-Af Amer 84 mL/min >60 [facility] Comment on above: Non- GFR Calc Thyroid Stimulating Hormone (TSH) 1.26 uIU/mL 0.358-3.74 [facility] Vitamin D 25-Hydroxy 34.5 ng/mL [facility] Comment on above: Vitamin D 25(OH) Sta tus Range Deficiency <20 ng/mL (50nmol/L) Insufficiency 20 - 30 ng/mL (50 - 75 nmol/L) Sufficiency 30 - 100 ng/mL (75 - 250 nmol/L) Toxicity >100 ng/mL (>250 nmol/L) Platelets bldOrdered By: Chr istophe Kale on 06-02-2023 Platelets (Bld) [#/Vol] 261 10*3/uL 150-450 [facility] Serum or plasma albumin randa urement (mass/volume)Ordered By: Sergei Henley on 06-02-2023 Albumin [Mass/Vol] 3.4 g/dL 3.2-5.0 [facility] Serum or plasma albumin/glob ulin mass ratioOrdered By: Sergei Henley on 06-02-2023 Albumin/Globulin [Mass ratio] 0.8 {ratio} 0.9-2.4 [facility] Serum or plasma calcium randa urement (mass/volume)Ordered By: Sergei Henley on 06-02-2023 Calcium [Mass/Vol] 8.7 mg/dL 8.5-10.1 [facility] Serum or plasma creatinine m easurement (mass/volume)Ordered By: Sergei Henley on 06-02-2023 Creatinine [Mass/Vol] 0.98 mg/dL 0.70-1.30 [facility] [facility] Comment on above: The validity of the calculated GFR & GFRAA in patients over 70 years has not been determined. Clinical correlation is essential. Serum or plasma ferritin seema surement (mass/volume)Ordered By: Sergei Henley on 06-02-2023 Ferritin [Mass/Vol] 285 ng/mL 26-388 [facility] Serum or plasma urea nitroge n measurement (mass/volume)Ordered By: Sergei Henley on 06-02-2023 Urea nitrogen [Mass/Vol] 14 mg/dL 7-18 [facility] Thin prep Papanicolaou smear with manual screeningOrdered By: Sergei Henley on 06-02-2023 Thin prep Papanicolaou smear with manual screening 24 U/L 15-37 [facility] Thin prep Papanicolaou smear with manual screening 4 5- [facility] Basophil percentageOrdered B y: Eileen Ray on 04-25-2023 Bilirubin [Mass/Vol] 0.40 mg/dL 0.20-1.00 [facility] Comment on above: For patients on eltr ombopag therapy, use of Dimension [place] TBIL is not recommended. Chloride [Moles/Vol] 109 mmol/L 98-107 [facility] Glucose [Mass/Vol] 104 mg/dL 74-106 [facility] Comment on above: Fasting Glucose resu lt from 100 to 125 mg/dL suggests IMPAIRED HOMEOSTASIS per A.D.A. criteria. Potassium [Moles/Vol] 3.9 mmol/L 3.5-5.1 [facility] Protein [Mass/Vol] 7.0 g/dL 6.4-8.2 [facility] Sodium [Moles/Vol] 139 mmol/L 136-145 [facility] WBC (Bld) [#/Vol] 4.7 10*3/uL 4.4-11.0 [facility] Blood erythrocytes count (nu mber/volume)Ordered By: Eileen Ray on 04-25-2023 RBC (Bld) [#/Vol] 4.14 10*6/uL 4.6-6.2 [facility] Blood hemoglobin measurement (mass/volume)Ordered By: Eileen Ray on 04-25-2023 Hemoglobin (Bld) [Mass/Vol] 13.9 g/dL 13.0-16.5 [facility] Blood platelet mean volumeOr dered By: Eileen Ray on 04-25-2023 Platelet mean volume (Bld) [Entitic vol] 9.5 fL 6.2-12.0 [facility] Determination of erythrocyte mean corpuscular volume (MCV)Ordered By: Eileen Ray on 04-25-2023 MCV (RBC) [Entitic vol] 99.8 fL 80-94 [facility] Hematocrit Auto (Bld) [Volum e fraction]Ordered By: Eileen Ray on 04-25-2023 Hematocrit (Bld) [Volume fraction] 41.3 % 40-54 [facility] Laboratory - Chemistry and C hemistry - challengeOrdered By: Eileen Ray on 04-25-2023 ALP [Catalytic activity/Vol] 61 U/L 45-117 [facility] ALT [Catalytic activity/Vol] 50 U/L 16-61 [facility] CO2 [Moles/Vol] 27.0 mmol/L 21.0-32.0 [facility] Globulin (S) [Mass/Vol] 3.9 g/dL 2.2-4.2 [facility] Urea nitrogen/Creatinine [Mass ratio] 10.2 mg/mg 10-20 [facility] Laboratory - Hematology and Cell countsOrdered By: Eileen Ray on 04-25-2023 Erythrocyte distribution width (RBC) [Entitic vol] 47.3 fL 35.1-43.9 [facility] Erythrocyte distribution width (RBC) [Ratio] 12.9 % 11.6-14.6 [facility] MCH (RBC) [Entitic mass] 33.6 pg 27.0-32.0 [facility] MCHC Auto (RBC) [Mass/Vol]Or dered By: Eileen Ray on 04-25-2023 MCHC (RBC) [Mass/Vol] 33.7 g/dL 32-36 [facility] No Panel InformationOrdered By: Eileen Ray on 04-25-2023 Estimated Creatinine Clearance Calc 89.08 ml/min [facility] Estimated GFR (MDRD) Amer 100 mL/min >60 [facility] Comment on above: GFR Calc Estimated GFR (MDRD) Non-Af Amer 83 mL/min >60 [facility] Comment on above: Non- GFR Calc Platelets bldOrdered By: Nuno Ray on 04-25-2023 Platelets (Bld) [#/Vol] 185 10*3/uL 150-450 [facility] Serum or plasma albumin randa urement (mass/volume)Ordered By: Eileen Ray on 04-25-2023 Albumin [Mass/Vol] 3.1 g/dL 3.2-5.0 [facility] Serum or plasma albumin/glob ulin mass ratioOrdered By: Eileen Ray on 04-25-2023 Albumin/Globulin [Mass ratio] 0.8 {ratio} 0.9-2.4 [facility] Serum or plasma calcium randa urement (mass/volume)Ordered By: Eileen Ray on 04-25-2023 Calcium [Mass/Vol] 8.6 mg/dL 8.5-10.1 [facility] Serum or plasma creatinine m easurement (mass/volume)Ordered By: Eileen Ray on 04-25-2023 Creatinine [Mass/Vol] 0.98 mg/dL 0.70-1.30 [facility] Comment on above: The validity of the calculated GFR & GFRAA in patients over 70 years has not been determined. Clinical correlation is essential. Serum or plasma urea nitroge n measurement (mass/volume)Ordered By: Eileen Ray on 04-25-2023 Urea nitrogen [Mass/Vol] 10 mg/dL 7-18 [facility] Thin prep Papanicolaou smear with manual screeningOrdered By: Eileen Ray on 04-25-2023 Thin prep Papanicolaou smear with manual screening 73 U/L 15-37 [facility] Thin prep Papanicolaou smear with manual screening 3 5-15 [facility] Whole blood hemoglobin A1c/t otal hemoglobin ratio (mass fraction)Ordered By: Ar Torres on 04-25-2023 HbA1c (Bld) [Mass fraction] 5.6 % 3.8-5.6 [facility] Comment on above: Normal < 5.7 % Predi abetic 5.7 - 6.4 % Diabetic >or= 6.5 % Please note range changes. Absolute lymphocyte countOrd ered By: Ar Torres on 04-24-2023 Lymphocytes Auto (Unsp spec) [#/Vol] 1.02 10*3/uL 0.83-4.51 [facility] Basophil percentageOrdered B y: Ar Torres on 04-24-2023 Basophils/100 WBC (Bld) 0.8 % 0-1 [facility] Cholesterol [Mass/Vol] 210 mg/dL <200 [facility] Comment on above: <200 mg/dL Desirable 200-240 mg/dL Borderline >240 mg/dL High Risk Eosinophils/100 WBC (Bld) 4.3 % 0-5 [facility] Neutrophils (Bld) [#/Vol] 3.1 10*3/uL 2.0-7.7 [facility] Neutrophils/100 WBC (Bld) 64.2 % 47-70 [facility] Triglyceride [Mass/Vol] 258 mg/dL <199 [facility] Comment on above: The drugs N-Acetylcy steine and Metamizole may falsely depress this assay.Serum Triglycerides Reference Interval Normal <150 mg/dL Borderline high 150 - 199 mg/dL High 200 - 499 mg/dL Very High > or = 500 mg/dL Blood lymphocytes/100 leukoc ytesOrdered By: Ar Torres on 04-24-2023 Lymphocytes/100 WBC (Bld) 20.9 % 19-41 [facility] Blood monocytes/100 leukocyt esOrdered By: Ar Torres on 04-24-2023 Monocytes/100 WBC (Bld) 9.2 % 0-10 [facility] INR in Blood by Coagulation assayOrdered By: Ar Torres on 04-24-2023 INR Coag (Bld) [Relative time] 1.0 {INR} [facility] - CoagulationOrde red By: Ar Torres on 04-24-2023 aPTT Coag (Bld) [Time] 22.7 s 24.1-36.2 [facility] PT Coag (PPP) [Time] 12.8 s 11.7-14.9 [facility] Laboratory - Hematology and Cell countsOrdered By: Ar Torres on 04-24-2023 Immature granulocytes/100 WBC (Bld) 0.600 % 0.0-0.9 [facility] Comment on above: IG% - Immature Granu locytes (promyelocytes, myelocytes and metamyelocytes) > 1% indicates that a LEFT SHIFT is Present. Nucleated RBC/100 WBC (Bld) [Ratio] 0 % 0-5 [facility] No Panel InformationOrdered By: Rommel Youssef on 04-24-2023 Activated Clotting Time 197 sec 74-137 [facility] No Panel InformationOrdered By: Ar Torres on 04-24-2023 Troponin I High Sensitivity 06904 pg/mL 3.0-78.0 [facility] Comment on above: Critical Result(s) C alled at: 08:06:06 04/24/2023 by: Kendal Mcqueen. Results read back by same. Please Note: New Test Units and Gender Specific Reference Ranges. For more information see Policy Stat Procedure [place] High Sensitivity Troponin (TNIH) and attachments. Serum or plasma cholesterol in HDL measurement (mass/volume)Ordered By: Ar Torres on 04-24-2023 Cholesterol in HDL [Mass/Vol] 71 mg/dL >40 [facility] Comment on above: The drugs N-Acetylcy steine and Metamizole may falsely depress this assay. Reference Range HDL <40 mg/dL Low HDL Cholesterol HDL >or= 60 mg/dL High HDL Cholesterol Serum or plasma cholesterol in VLDL measurement (mass/volume)Ordered By: Ar Torres on 04-24-2023 Cholesterol in VLDL [Mass/Vol] 52 mg/dL 5-40 [facility] Serum or plasma low density lipoprotein (LDL) cholesterol measurement (mass/volume)Ordered By: Ar Torres on 04-24-2023 Cholesterol in LDL [Mass/Vol] 87 mg/dL 0-130 [facility] Absolute lymphocyte countOrd ered By: Perez Dave on 04-23-2023 Lymphocytes Auto (Unsp spec) [#/Vol] 1.69 10*3/uL 0.83-4.51 [facility] Basophil percentageOrdered B y: Perez Dave on 04-23-2023 Basophils/100 WBC (Bld) 1.1 % 0-1 [facility] Chloride [Moles/Vol] 108 mmol/L 98-107 [facility] Eosinophils/100 WBC (Bld) 6.3 % 0-5 [facility] Glucose [Mass/Vol] 104 mg/dL 74-106 [facility] Comment on above: Fasting Glucose resu lt from 100 to 125 mg/dL suggests IMPAIRED HOMEOSTASIS per A.D.A. criteria. Neutrophils (Bld) [#/Vol] 2.5 10*3/uL 2.0-7.7 [facility] Neutrophils/100 WBC (Bld) 48.0 % 47-70 [facility] Potassium [Moles/Vol] 3.4 mmol/L 3.5-5.1 [facility] Sodium [Moles/Vol] 141 mmol/L 136-145 [facility] WBC (Bld) [#/Vol] 5.3 10*3/uL 4.4-11.0 [facility] Blood erythrocytes count (nu mber/volume)Ordered By: Perez Dave on 04-23-2023 RBC (Bld) [#/Vol] 4.28 10*6/uL 4.6-6.2 [facility] Blood hemoglobin measurement (mass/volume)Ordered By: Perez Dave on 04-23-2023 Hemoglobin (Bld) [Mass/Vol] 14.0 g/dL 13.0-16.5 [facility] Blood lymphocytes/100 leukoc ytesOrdered By: Perez Dave on 04-23-2023 Lymphocytes/100 WBC (Bld) 32.1 % 19-41 [facility] Blood monocytes/100 leukocyt esOrdered By: Perez Dave on 04-23-2023 Monocytes/100 WBC (Bld) 12.1 % 0-10 [facility] Blood platelet mean volumeOr dered By: Perez Dave on 04-23-2023 Platelet mean volume (Bld) [Entitic vol] 9.5 fL 6.2-12.0 [facility] Determination of erythrocyte mean corpuscular volume (MCV)Ordered By: Perez Dave on 04-23-2023 MCV (RBC) [Entitic vol] 98.8 fL 80-94 [facility] Hematocrit Auto (Bld) [Volum e fraction]Ordered By: Perez Dave on 04-23-2023 Hematocrit (Bld) [Volume fraction] 42.3 % 40-54 [facility] INR in Blood by Coagulation assayOrdered By: Perez Dave on 04-23-2023 INR Coag (Bld) [Relative time] 1.0 {INR} [facility] - Chemistry and C hemistry - challengeOrdered By: Perez Dave on 04-23-2023 CO2 [Moles/Vol] 24.0 mmol/L 21.0-32.0 [facility] Urea nitrogen/Creatinine [Mass ratio] 12.1 mg/mg 10-20 [facility] - CoagulationOrde red By: Perez Dave on 04-23-2023 aPTT Coag (Bld) [Time] 23.0 s 24.1-36.2 [facility] PT Coag (PPP) [Time] 12.9 s 11.7-14.9 [facility] Laboratory - Hematology and Cell countsOrdered By: Perez Dave on 04-23-2023 Erythrocyte distribution width (RBC) [Entitic vol] 45.7 fL 35.1-43.9 [facility] Erythrocyte distribution width (RBC) [Ratio] 12.6 % 11.6-14.6 [facility] Immature granulocytes/100 WBC (Bld) 0.400 % 0.0-0.9 [facility] Comment on above: IG% - Immature Granu locytes (promyelocytes, myelocytes and metamyelocytes) > 1% indicates that a LEFT SHIFT is Present. MCH (RBC) [Entitic mass] 32.7 pg 27.0-32.0 [facility] Nucleated RBC/100 WBC (Bld) [Ratio] 0 % 0-5 [facility] MCHC Auto (RBC) [Mass/Vol]Or dered By: Perez Dave on 04-23-2023 MCHC (RBC) [Mass/Vol] 33.1 g/dL 32-36 [facility] No Panel InformationOrdered By: Perez Dave on 04-23-2023 Estimated Creatinine Clearance Calc 70.40 ml/min [facility] Estimated GFR (MDRD) Amer 77 mL/min >60 [facility] Comment on above: GFR Calc Estimated GFR (MDRD) Non-Af Amer 63 mL/min >60 [facility] Comment on above: Non- GFR Calc Troponin I High Sensitivity 6 pg/mL 3.0-78.0 [facility] Comment on above: Please Note: New Joan t Units and Gender Specific Reference Ranges. For more information see Policy Stat Procedure [place] High Sensitivity Troponin (TNIH) and attachments. Platelets bldOrdered By: Priti Dave on 04-23-2023 Platelets (Bld) [#/Vol] 226 10*3/uL 150-450 [facility] Serum or plasma calcium randa urement (mass/volume)Ordered By: [facility] [place] on 04-23-2023 Calcium [Mass/Vol] 8.8 mg/dL 8.5-10.1 [facility] Serum or plasma creatinine m easurement (mass/volume)Ordered By: [place] Tenzin on 04-23-2023 Creatinine [Mass/Vol] 1.24 mg/dL 0.70-1.30 [facility] Comment on above: The validity of the calculated GFR & GFRAA in patients over 70 years has not been determined. Clinical correlation is essential. Serum or plasma urea nitroge n measurement (mass/volume)Ordered By: [facility] [place] on 04-23-2023 Urea nitrogen [Mass/Vol] 15 mg/dL 7-18 [facility] Thin prep Papanicolaou smear with manual screeningOrdered By: [facility] [place] on 04-23-2023 Thin prep Papanicolaou smear with manual screening 9 5-15 [facility] Absolute lymphocyte counton 05-06-2022 Lymphocytes Auto (Unsp spec) [#/Vol] 1.23 10*3/uL 0.83-4.51 [facility] Work Phone: Basophil percentageon 2021 Basophils/100 WBC (Bld) 0.7 % 0-1 [facility] Work Phone: Bilirubin [Mass/Vol] 0.50 mg/dL 0.20-1.00 [facility] Work Phone: Comment on above: For patients on eltr ombopag therapy, use of Dimension [place] TBIL is not recommended. Chloride [Moles/Vol] 105 mmol/L 98-107 [facility] Work Phone: Cholesterol [Mass/Vol] 179 mg/dL <200 [facility] Work Phone: Comment on above: <200 mg/dL Desirable 200-240 mg/dL Borderline >240 mg/dL High Risk Eosinophils/100 WBC (Bld) 3.0 % 0-5 [facility] Work Phone: Glucose [Mass/Vol] 104 mg/dL 74-106 [facility] Work Phone: Comment on above: Fasting Glucose resu lt from 100 to 125 mg/dL suggests IMPAIRED HOMEOSTASIS per A.D.A. criteria. Neutrophils (Bld) [#/Vol] 4.0 10*3/uL 2.0-7.7 [facility] Work Phone: Neutrophils/100 WBC (Bld) 66.8 % 47-70 [facility] Work Phone: Potassium [Moles/Vol] 4.3 mmol/L 3.5-5.1 [facility] Work Phone: Comment on above: Slight Hemolysis, Re sult may be falsely increased. Protein [Mass/Vol] 8.3 g/dL 6.4-8.2 [facility] Work Phone: Sodium [Moles/Vol] 140 mmol/L 136-145 [facility] Work Phone: Triglyceride [Mass/Vol] 169 mg/dL <199 [facility] Work Phone: Comment on above: The drugs N-Acetylcy steine and Metamizole may falsely depress this assay.Serum Triglycerides Reference Interval Normal <150 mg/dL Borderline high 150 - 199 mg/dL High 200 - 499 mg/dL Very High > or = 500 mg/dL WBC (Bld) [#/Vol] 6.0 10*3/uL 4.4-11.0 [facility] Work Phone: Blood erythrocytes count (nu mber/volume)on 05-06-2022 RBC (Bld) [#/Vol] 4.85 10*6/uL 4.6-6.2 [facility] Work Phone: Blood hemoglobin measurement (mass/volume)on 05-06-2022 Hemoglobin (Bld) [Mass/Vol] 15.8 g/dL 13.0-16.5 [facility] Work Phone: Blood lymphocytes/100 leukoc yteson 05-06-2022 Lymphocytes/100 WBC (Bld) 20.5 % 19-41 [facility] Work Phone: Blood monocytes/100 leukocyt eson 05-06-2022 Monocytes/100 WBC (Bld) 8.5 % 0-10 [facility] Work Phone: Blood platelet mean volumeon 05-06-2022 Platelet mean volume (Bld) [Entitic vol] 9.9 fL 6.2-12.0 [facility] Work Phone: Determination of erythrocyte mean corpuscular volume (MCV)on 05-06-2022 MCV (RBC) [Entitic vol] 98.4 fL 80-94 [facility] Work Phone: Erythrocyte sedimentation ra bobby 05-06-2022 ESR (Bld) [Velocity] 17 mm/h 0-20 [facility]: Hematocrit Auto (Bld) [Volum e fraction]on 05-06-2022 Hematocrit (Bld) [Volume fraction] 47.7 % 40-54 [facility] Work Phone: Laboratory - Chemistry and C hemistry - challengeon 05-06-2022 ALP [Catalytic activity/Vol] 82 U/L 45-117 [facility] Work Phone: ALT [Catalytic activity/Vol] 78 U/L 16-61 [facility] Work Phone: CO2 [Moles/Vol] 26.0 mmol/L 21.0-32.0 [facility] Work Phone: [phone] Cobalamin (Vitamin B12) [Mass/Vol] 289 pg/mL 211-911 [facility] Work Phone: Globulin (S) [Mass/Vol] 4.7 g/dL 2.2-4.2 [facility] Work Phone: Urea nitrogen/Creatinine [Mass ratio] 8.1 mg/mg 10-20 [facility] Work Phone: Laboratory - Hematology and Cell countson 05-06-2022 Erythrocyte distribution width (RBC) [Entitic vol] 46.7 fL 35.1-43.9 [facility] Work Phone: Erythrocyte distribution width (RBC) [Ratio] 12.9 % 11.6-14.6 [facility] Work Phone: [phone] Immature granulocytes/100 WBC (Bld) 0.500 % 0.0-0.9 [facility] Work Phone: [phone] Comment on above: IG% - Immature Granu locytes (promyelocytes, myelocytes and metamyelocytes) > 1% indicates that a LEFT SHIFT is Present. MCH (RBC) [Entitic mass] 32.6 pg 27.0-32.0 [facility] Work Phone: [phone] Nucleated RBC/100 WBC (Bld) [Ratio] 0 % 0-5 [facility] Work Phone: [phone] MCHC Auto (RBC) [Mass/Vol]on 05-06-2022 MCHC (RBC) [Mass/Vol] 33.1 g/dL 32-36 [facility] Work Phone: No Panel Informationon 05-06 Estimated GFR (MDRD) Amer 77 mL/min >60 [facility] Work Phone: [phone] Comment on above: GFR Calc Estimated GFR (MDRD) Non-Af Amer 64 mL/min >60 [facility] Work Phone: [phone] Comment on above: Non- GFR Calc Thyroid Stimulating Hormone (TSH) 0.99 uIU/mL 0.358-3.74 [facility] Work Phone: [phone] Vitamin D 25-Hydroxy 37.3 ng/mL [facility] Work Phone: [phone] Comment on above: Vitamin D 25(OH) Sta tus Range Deficiency <20 ng/mL (50nmol/L) Insufficiency 20 - 30 ng/mL (50 - 75 nmol/L) Sufficiency 30 - 100 ng/mL (75 - 250 nmol/L) Toxicity >100 ng/mL (>250 nmol/L) Platelets bldon 05-06-2022 Platelets (Bld) [#/Vol] 223 10*3/uL 150-450 [facility] Work Phone: Serum or plasma albumin randa urement (mass/volume)on 05-06-2022 Albumin [Mass/Vol] 3.6 g/dL 3.2-5.0 [facility] Work Phone: Serum or plasma albumin/glob ulin mass ratioon 05-06-2022 Albumin/Globulin [Mass ratio] 0.8 {ratio} 0.9-2.4 [facility] Work Phone: Serum or plasma calcium randa urement (mass/volume)on 05-06-2022 Calcium [Mass/Vol] 9.0 mg/dL 8.5-10.1 [facility] Work Phone: Serum or plasma cholesterol in HDL measurement (mass/volume)on 05-06-2022 Cholesterol in HDL [Mass/Vol] 78 mg/dL >40 [facility] Work Phone: Comment on above: The drugs N-Acetylcy steine and Metamizole may falsely depress this assay. Reference Range HDL <40 mg/dL Low HDL Cholesterol HDL >or= 60 mg/dL High HDL Cholesterol Serum or plasma cholesterol in VLDL measurement (mass/volume)on 05-06-2022 Cholesterol in VLDL [Mass/Vol] 34 mg/dL 5-40 [facility] Work Phone: Serum or plasma creatinine m easurement (mass/volume)on 05-06-2022 Creatinine [Mass/Vol] 1.24 mg/dL 0.70-1.30 [facility] Work Phone: Comment on above: The validity of the calculated GFR & GFRAA in patients over 70 years has not been determined. Clinical correlation is essential. Serum or plasma low density lipoprotein (LDL) cholesterol measurement (mass/volume)on 05-06-2022 Cholesterol in LDL [Mass/Vol] 67 mg/dL 0-130 [facility] Work Phone: Serum or plasma urea nitroge n measurement (mass/volume)on 05-06-2022 Urea nitrogen [Mass/Vol] 10 mg/dL 7-18 [facility] Work Phone: Thin prep Papanicolaou smear with manual screeningon 05-06-2022 Thin prep Papanicolaou smear with manual screening 54 U/L 15-37 [facility] Work Phone: Comment on above: Slight Hemolysis, Re sult may be falsely increased. Thin prep Papanicolaou smear with manual screening 9 5-15 [facility] Work Phone: Basophil percentageon 2021 Chloride [Moles/Vol] 108 mmol/L 98-107 [facility] Work Phone: Cholesterol [Mass/Vol] 158 mg/dL <200 [facility] Work Phone: Comment on above: <200 mg/dL Desirable 200-240 mg/dL Borderline >240 mg/dL High Risk Glucose [Mass/Vol] 112 mg/dL 74-106 [facility] Work Phone: Comment on above: Fasting Glucose resu lt from 100 to 125 mg/dL suggests IMPAIRED HOMEOSTASIS per A.D.A. criteria. Potassium [Moles/Vol] 3.9 mmol/L 3.5-5.1 [facility] Work Phone: Sodium [Moles/Vol] 139 mmol/L 136-145 [facility] Work Phone: Triglyceride [Mass/Vol] 147 mg/dL [facility] Work Phone: Comment on above: The drugs N-Acetylcy steine and Metamizole may falsely depress this assay.Serum Triglycerides Reference Interval Normal <150 mg/dL Borderline high 150 - 199 mg/dL High 200 - 499 mg/dL Very High > or = 500 mg/dL WBC (Bld) [#/Vol] 6.1 10*3/uL 4.4-11.0 [facility] Work Phone: [phone] Blood erythrocytes count (nu mber/volume)on 10-31-2021 RBC (Bld) [#/Vol] 4.40 10*6/uL 4.6-6.2 [facility] Work Phone: [phone] Blood hemoglobin measurement (mass/volume)on 10-31-2021 Hemoglobin (Bld) [Mass/Vol] 14.2 g/dL 13.0-16.5 [facility] Work Phone: [phone] Blood platelet mean volumeon 10-31-2021 Platelet mean volume (Bld) [Entitic vol] 9.9 fL 6.2-12.0 [facility] Work Phone: [phone] Determination of erythrocyte mean corpuscular volume (MCV)on 10-31-2021 MCV (RBC) [Entitic vol] 98.2 fL 80-94 [facility] Work Phone: [phone] Hematocrit Auto (Bld) [Volum e fraction]on 10-31-2021 Hematocrit (Bld) [Volume fraction] 43.2 % 40-54 [facility] Work Phone: [phone] Laboratory - Chemistry and C hemistry - challengeon 10-31-2021 CO2 [Moles/Vol] 28.0 mmol/L 21.0-32.0 [facility] Work Phone: [phone] Urea nitrogen/Creatinine [Mass ratio] 10.0 mg/mg 10-20 [facility] Work Phone: [phone] Laboratory - Hematology and Cell countson 10-31-2021 Erythrocyte distribution width (RBC) [Entitic vol] 46.4 fL 35.1-43.9 [facility] Work Phone: [phone] Erythrocyte distribution width (RBC) [Ratio] 13.0 % 11.6-14.6 [facility] Work Phone: [phone] MCH (RBC) [Entitic mass] 32.3 pg 27.0-32.0 [facility] Work Phone: [phone] MCHC Auto (RBC) [Mass/Vol]on 10-31-2021 MCHC (RBC) [Mass/Vol] 32.9 g/dL 32-36 [facility] Work Phone: [phone] No Panel Informationon 10-31 Estimated Creatinine Clearance Calc 98.20 ml/min [facility] Work Phone: [phone] Estimated GFR (MDRD) Amer 112 mL/min >60 [facility] Work Phone: Comment on above: GFR Calc Estimated GFR (MDRD) Non-Af Amer 92 mL/min >60 [facility] Work Phone: Comment on above: Non- GFR Calc Thyroid Stimulating Hormone (TSH) 0.80 uIU/mL 0.358-3.74 [facility] Work Phone: Platelets bldon 10-31-2021 Platelets (Bld) [#/Vol] 188 10*3/uL 150-450 [facility] Work Phone: Serum or plasma calcium randa urement (mass/volume)on 10-31-2021 Calcium [Mass/Vol] 8.6 mg/dL 8.5-10.1 [facility] Work Phone: Serum or plasma cholesterol in HDL measurement (mass/volume)on 10-31-2021 Cholesterol in HDL [Mass/Vol] 66 mg/dL [facility] Work Phone: Comment on above: The drugs N-Acetylcy steine and Metamizole may falsely depress this assay. Reference Range HDL <40 mg/dL Low HDL Cholesterol HDL >or= 60 mg/dL High HDL Cholesterol Serum or plasma cholesterol in VLDL measurement (mass/volume)on 10-31-2021 Cholesterol in VLDL [Mass/Vol] 29 mg/dL 5-40 [facility] Work Phone: Serum or plasma creatinine m easurement (mass/volume)on 10-31-2021 Creatinine [Mass/Vol] 0.90 mg/dL 0.70-1.30 [facility] Work Phone: Comment on above: The validity of the calculated GFR & GFRAA in patients over 70 years has not been determined. Clinical correlation is essential. Serum or plasma low density lipoprotein (LDL) cholesterol measurement (mass/volume)on 10-31-2021 Cholesterol in LDL [Mass/Vol] 63 mg/dL 0-130 [facility] Work Phone: Serum or plasma urea nitroge n measurement (mass/volume)on 10-31-2021 Urea nitrogen [Mass/Vol] 9 mg/dL 7-18 [facility] Work Phone: Thin prep Papanicolaou smear with manual screeningon 10-31-2021 Thin prep Papanicolaou smear with manual screening 3 5-15 [facility] Work Phone: Absolute lymphocyte counton 10-30-2021 Lymphocytes Auto (Unsp spec) [#/Vol] 1.97 10*3/uL 0.83-4.51 [facility] Work Phone: Basophil percentageon 2021 Basophils/100 WBC (Bld) 0.4 % 0-1 [facility] Work Phone: Chloride [Moles/Vol] 106 mmol/L 98-107 [facility] Work Phone: Eosinophils/100 WBC (Bld) 3.4 % 0-5 [facility] Work Phone: Glucose [Mass/Vol] 94 mg/dL 74-106 [facility] Work Phone: Neutrophils (Bld) [#/Vol] 4.2 10*3/uL 2.0-7.7 [facility] Work Phone: Neutrophils/100 WBC (Bld) 58.0 % 47-70 [facility] Work Phone: Potassium [Moles/Vol] 3.9 mmol/L 3.5-5.1 [facility] Work Phone: Comment on above: Moderate Hemolysis, Result may be falsely increased. Sodium [Moles/Vol] 140 mmol/L 136-145 [facility] Work Phone: WBC (Bld) [#/Vol] 7.2 10*3/uL 4.4-11.0 [facility] Work Phone: Blood erythrocytes count (nu mber/volume)on 10-30-2021 RBC (Bld) [#/Vol] 4.96 10*6/uL 4.6-6.2 [facility] Work Phone: Blood hemoglobin measurement (mass/volume)on 10-30-2021 Hemoglobin (Bld) [Mass/Vol] 16.4 g/dL 13.0-16.5 [facility] Work Phone: Blood lymphocytes/100 leukoc yteson 10-30-2021 Lymphocytes/100 WBC (Bld) 27.6 % 19-41 [facility] Work Phone: Blood monocytes/100 leukocyt eson 10-30-2021 Monocytes/100 WBC (Bld) 10.3 % 0-10 [facility] Work Phone: Blood platelet mean volumeon 10-30-2021 Platelet mean volume (Bld) [Entitic vol] 9.7 fL 6.2-12.0 [facility] Work Phone: Determination of erythrocyte mean corpuscular volume (MCV)on 10-30-2021 MCV (RBC) [Entitic vol] 96.4 fL 80-94 [facility] Work Phone: [phone] Hematocrit Auto (Bld) [Volum e fraction]on 10-30-2021 Hematocrit (Bld) [Volume fraction] 47.8 % 40-54 [facility] Work Phone: [phone] Laboratory - Chemistry and C hemistry - challengeon 10-30-2021 CO2 [Moles/Vol] 30.0 mmol/L 21.0-32.0 [facility] Work Phone: [phone] Magnesium [Mass/Vol] 2.3 mg/dL 1.6-2.6 [facility] Work Phone: Comment on above: Moderate Hemolysis, Result may be falsely increased. Urea nitrogen/Creatinine [Mass ratio] 16.0 mg/mg 10-20 [facility] Work Phone: Laboratory - Hematology and Cell countson 10-30-2021 Erythrocyte distribution width (RBC) [Entitic vol] 44.9 fL 35.1-43.9 [facility] Work Phone: Erythrocyte distribution width (RBC) [Ratio] 12.7 % 11.6-14.6 [facility] Work Phone: Immature granulocytes/100 WBC (Bld) 0.300 % 0.0-0.9 [facility] Work Phone: [phone] Comment on above: IG% - Immature Granu locytes (promyelocytes, myelocytes and metamyelocytes) > 1% indicates that a LEFT SHIFT is Present. MCH (RBC) [Entitic mass] 33.1 pg 27.0-32.0 [facility] Work Phone: [phone] Nucleated RBC/100 WBC (Bld) [Ratio] 0 % 0-5 [facility] Work Phone: [phone] MCHC Auto (RBC) [Mass/Vol]on 10-30-2021 MCHC (RBC) [Mass/Vol] 34.3 g/dL 32-36 [facility] Work Phone: No Panel Informationon 10-30 Troponin I High Sensitivity < 3 pg/mL 3.0-78.0 [facility] Work Phone: Comment on above: Please Note: New Joan t Units and Gender Specific Reference Ranges. For more information see Policy Stat Procedure [place] High Sensitivity Troponin (TNIH) and attachments. Troponin I High Sensitivity < 3 pg/mL 3.0-78.0 [facility] Work Phone: [phone] Comment on above: Please Note: New Joan t Units and Gender Specific Reference Ranges. For more information see Policy Stat Procedure [place] High Sensitivity Troponin (TNIH) and attachments. D-Dimer Quantitative (PE/DVT) 0.37 FEU/ug/m 0.27-0.49 [facility] Work Phone: [phone] Comment on above: NORMAL D-Dimer level (<0.50) indicates no DVT or PE. Estimated Creatinine Clearance Calc 74.27 ml/min [facility] Work Phone: [phone] Estimated GFR (MDRD) Amer 81 mL/min >60 [facility] Work Phone: [phone] Comment on above: GFR Calc Estimated GFR (MDRD) Non-Af Amer 67 mL/min >60 [facility] Work Phone: [phone] Comment on above: Non- GFR Calc Platelets bldon 10-30-2021 Platelets (Bld) [#/Vol] 235 10*3/uL 150-450 [facility] Work Phone: Serum or plasma calcium randa urement (mass/volume)on 10-30-2021 Calcium [Mass/Vol] 9.5 mg/dL 8.5-10.1 [facility] Work Phone: Serum or plasma creatinine m easurement (mass/volume)on 10-30-2021 Creatinine [Mass/Vol] 1.19 mg/dL 0.70-1.30 [facility] Work Phone: Comment on above: The validity of the calculated GFR & GFRAA in patients over 70 years has not been determined. Clinical correlation is essential. Serum or plasma urea nitroge n measurement (mass/volume)on 10-30-2021 Urea nitrogen [Mass/Vol] 19 mg/dL 7-18 [facility] Work Phone: Thin prep Papanicolaou smear with manual screeningon 10-30-2021 Thin prep Papanicolaou smear with manual screening 4 5-15 [facility] Work Phone: Office Visiton 01-20-2017 Dietary management education, guidance, and counseling (procedure) yes Invalid Interpretation Code [facility] Work Phone: [phone] Documentation of current medications (procedure) Done Invalid Interpretation Code [facility] Work Phone: [phone] Fall risk assessment No Invalid Interpretation Code [facility] Work Phone: [phone] Lab Report: Bilirubin, Direc ton 12-02-2016 Bilirubin (direct) 0.10 mg/dL Invalid Interpretation Code 0.00-0.30 [facility] Work Phone: [phone] Lab Report: Comprehensive Me tabolic Profilon 12-02-2016 Alanine aminotransferase (ALT) 55 U/L Invalid Interpretation Code 12-78 [facility] Work Phone: [phone] Albumin 4.0 g/dL Invalid Interpretation Code 3.4-5.0 [facility] Work Phone: [phone] Albumin/Globulin Ratio 1 {ratio} Invalid Interpretation Code 0.9-2.4 [facility] Work Phone: [phone] Alkaline phosphatase (ALP) 89 U/L Invalid Interpretation Code 45-117 [facility] Work Phone: [phone] ALP enzyme act/vol (Bld) 89 U/L 45-117 [facility] Work Phone: [phone] Anion gap 5 mmol/L Invalid Interpretation Code 5-15 [facility] Work Phone: [phone] Anion gap molar conc 5 mmol/L 5-[address] [facility] Work Phone: [phone] Aspartate aminotransferase (AST) 38 U/L High 15-37 [facility] Work Phone: [phone] Bilirubin (total) 0.40 mg/dL Invalid Interpretation Code 0.20-1.00 [facility] Work Phone: [phone] BUN/Creatinine Ratio 16.4 RATIO Invalid Interpretation Code 10-20 [facility] Work Phone: [phone] Calcium 8.8 mg/dL Invalid Interpretation Code 8.5-10.1 [facility] Work Phone: [phone] Chloride 108 mmol/L High 98-107 [facility] Work Phone: [phone] CO2 25.0 mmol/L Invalid Interpretation Code 21.0-32.0 [facility] Work Phone: [phone] CO2 ppres (BldV) 25.0 mmol/L 21.0-32.0 [facility] Work Phone: [phone] Creatinine 1.10 mg/dL Invalid Interpretation Code 0.70-1.30 [facility] Work Phone: [phone] eGFR (non-black) 74 mL/min/{1.73_m2} Invalid Interpretation Code >60 [facility] Work Phone: [phone] eGFR (non-black) 90 mL/min/{1.73_m2} Invalid Interpretation Code >60 [facility] Work Phone: [phone] EST GFR - AA 90 mL/min >60 [facility] Work Phone: [phone] Globulin 3.9 g/dL High 2.3-3.5 [facility] Work Phone: [phone] Globulin mass conc (S) 3.9 g/dL High 2.3-3.5 [facility] Work Phone: [phone] Glucose 89 mg/dL Invalid Interpretation Code 70-110 [facility] Work Phone: [phone] Glucose mass conc 89 mg/dL 70-110 [facility] Work Phone: [phone] Potassium molar conc 4.1 mmol/L Invalid Interpretation Code 3.5-5.1 [facility] Work Phone: [phone] Protein 7.9 g/dL Invalid Interpretation Code 6.4-8.2 [facility] Work Phone: [phone] Sodium 138 mmol/L Invalid Interpretation Code 136-145 [facility] Work Phone: [phone] Urea nitrogen 18 mg/dL Invalid Interpretation Code 7-18 [facility] Work Phone: [phone] Lab Report: Lipid Profileon 12-02-2016 Cholesterol 146 mg/dL Invalid Interpretation Code 200 [facility] Work Phone: [phone] HDL Cholesterol 55 mg/dL Invalid Interpretation Code [facility] Work Phone: [phone] LDL Cholesterol 64 mg/dL Invalid Interpretation Code 0-130 [facility] Work Phone: [phone] Triglyceride 135 mg/dL Invalid Interpretation Code [facility] Work Phone: [phone] very low density lipoproteins 27 mg/dL Invalid Interpretation Code 5-40 [facility] Work Phone: [phone] Lab Report: PSA,Total - [place] al Screenon 12-02-2016 prostate specific antigen (PSA) screening 0.43 ng/mL Invalid Interpretation Code 0.00-4.00 [facility] Work Phone: [phone] Protein mass conc 0.43 ng/mL 0.00-4.00 [facility] Work Phone: [phone] PSA,TOT SCREEN 0.43 ng/mL Invalid Interpretation Code 0.00-4.00 [facility] Work Phone: [phone] Office Visit: [facility] 07-09-20 16 Documentation of current medications (procedure) Done Invalid Interpretation Code [facility] Work Phone: Protein mass conc Done [facility] Work Phone: Replaced Document: Fernanda Ybarra CG Observationson 07-09-2016 EKG QRS axis -27 deg [facility] Work Phone: [phone] electrocardiogram interpretation Sinus Rhythm Low voltage in limb leads. ABNORMAL Invalid Interpretation Code [facility] Work Phone: [phone] GE use only - for [employer] import when terms are not otherwise specified 406 ms Invalid Interpretation Code [facility] Work Phone: Interpretation Sinus Rhythm Low voltage in limb leads. ABNORMAL [facility] Work Phone: [phone] P [place] 42 deg [facility] Work Phone: [phone] P wave axis, electrocardiogram 42 deg Invalid Interpretation Code [facility] Work Phone: [phone] NE Interval 162 ms [facility] Work Phone: [phone] NE interval, electrocardiogram 162 ms Invalid Interpretation Code [facility] Work Phone: [phone] Pulse (Heart Rate) 75 /min Invalid Interpretation Code [facility] Work Phone: QRS axis, electrocardiogram -27 deg Invalid Interpretation Code [facility] Work Phone: [phone] QRS Duration 102 ms [facility] Work Phone: QRS duration, electrocardiogram 102 ms Invalid Interpretation Code [facility] Work Phone: QT Interval new path ms [facility] Work Phone: QT interval, electrocardiogram new path ms Invalid Interpretation Code [facility] Work Phone: QTc Chan 406 ms [facility] Work Phone: T [place] 26 deg [facility] Work Phone: T wave axis, electrocardiogram 26 deg Invalid Interpretation Code [facility] Work Phone: Office Visiton 01-05-2016 Dietary management education, guidance, and counseling (procedure) yes Invalid Interpretation Code [facility] Work Phone: 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 Left ventricular Ejection fraction 55 % Invalid Interpretation Code [facility] Work Phone: [phone] Lab Report: Thyroid Stim Hor nikole (TSH)on 11-01-2015 Thyroid stimulating hormone (TSH) 1.25 u[iU]/mL Invalid Interpretation Code 0.358-3.74 [facility] Work Phone: [phone] Office Visit: [facility] 05-05-20 15 Tobacco smoking status NHIS Former smoker [facility] Work Phone: [phone] Tobacco use CPHS Former smoker Invalid Interpretation Code [facility] Work Phone: [phone] Office Visiton 11-04-2014 cardiac risk group C Invalid Interpretation Code [facility] Work Phone: [phone] General cardiovascular disease 10Y risk [#] [place].D'Agostino N/A Invalid Interpretation Code [facility] Work Phone: [phone] Vital Signs Date Time Vital Sign Value Performing Clinician Faci lity 05-05-2025 08:28-0400 Body height 182.[address] Eduard Henley MD Work Phone: [facility] 05-05-2025 08:28-0400 Body mass index (BMI) [Ratio] 26.8 kg/m2 Dr. Eduadr Henley MD Work Phone: [facility] 05-05-2025 08:28-0400 Body weight 89.[address] Eduard Henley MD Work Phone: [facility] 05-05-2025 08:28-0400 Diastolic blood pressure 78 mm[Hg] Dr. Eduard Henley MD Work Phone: [facility] 05-05-2025 08:28-0400 Heart rate 75 /min Dr. Eduard Henley MD Work Phone: [facility] 05-05-2025 08:28-0400 Respiratory rate 16 /min Dr. Eduard Henley MD Work Phone: [facility] 05-05-2025 08:28-0400 SaO2% (BldA) [Mass fraction] 98 % Dr. Eduard Henley MD Work Phone: [facility] 05-05-2025 08:28-0400 Systolic blood pressure 138 mm[Hg] Dr. Eduard Henley MD Work Phone: [facility] 01-22-2025 22:23-0400 Body temperature 97.9 [degF] Dr. Eduard Henley MD Work Phone: 7(310)092-346446 [place] [address] 01-22-2025 22:23-0400 Diastolic blood pressure 77 mm[Hg] Dr. Eduard Henley MD Work Phone: 7(033)519-129346 [place] [address] 01-22-2025 22:23-0400 Heart rate 104 /min Dr. Eduard Henley MD Work Phone: 7(796)999-831535 [place] [address] 01-22-2025 22:23-0400 Respiratory rate 13 /min Dr. Eduard Henley MD Work Phone: 5(013)515-374835 [place] [address] 01-22-2025 22:23-0400 SaO2% (BldA) [Mass fraction] 98 % Dr. dEuard Henley MD Work Phone: 7(625)458-736235 [place] [address] 01-22-2025 22:23-0400 Systolic blood pressure 120 mm[Hg] Dr. Eduard Henley MD Work Phone: 8(490)168-915046 [place] [address] 01-22-2025 21:30-0400 Inhaled oxygen flow rate 2 L/min Dr. Eduard Henley MD Work Phone: 1(015)015-768746 [place] [address] 01-22-2025 20:30-0400 Body height 182.[address] Eduard Henley MD Work Phone: 3(907)555-334235 [place] [address] 01-22-2025 20:30-0400 Body mass index (BMI) [Ratio] 29 kg/m2 Dr. Eduard Henley MD Work Phone: 9(883)770-178346 [place] [address] 01-22-2025 20:30-0400 Body weight 97.[address] Eduard Henley MD Work Phone: 4(464)251-610835 [place] [address] 01-22-2025 18:07-0400 Diastolic blood pressure 91 mm[Hg] Dr. Eduard Henley MD Work Phone: [facility] 01-22-2025 18:07-0400 Systolic blood pressure 145 mm[Hg] Dr. Eduard Henley MD Work Phone: [facility] 01-22-2025 17:00-0400 Heart rate 72 /min Dr. Eduard Henley MD Work Phone: 2(962)580-175846 [place] [address] 01-22-2025 17:00-0400 Respiratory rate 18 /min Dr. Eduard Henley MD Work Phone: 5(780)686-610925 [address] 01-22-2025 17:00-0400 SaO2% (BldA) [Mass fraction] 100 % Dr. Eduard Henley MD Work Phone: 2(351)868-937525 [address] 01-22-2025 13:46-0400 Body height 182.[address] Eduard Henley MD Work Phone: 2(817)310-273946 [place] [address] 01-22-2025 13:46-0400 Body mass index (BMI) [Ratio] 27.1 kg/m2 Dr. Eduard Henley MD Work Phone: 7(020)700-669946 [place] [address] 01-22-2025 13:46-0400 Body temperature 97.5 [degF] Dr. Eduard Henley MD Work Phone: 4(937)350-817846 [place] [address] 01-22-2025 13:46-0400 Body weight 90.[address] Eduard Henley MD Work Phone: 8(800)613-869246 [place] [address] 09-03-2024 03:53-0500 Body temperature 98 [degF] Dr. Eduard Henley MD Work Phone: 3(790)318-375225 [address] 09-03-2024 03:53-0500 Diastolic blood pressure 100 mm[Hg] Dr. Eduard Henley MD Work Phone: 1(286)228-293246 [place] [address] 09-03-2024 03:53-0500 Heart rate 86 /min Dr. Eduard Henley MD Work Phone: 8(011)078-322635 [place] [address] 09-03-2024 03:53-0500 Respiratory rate 18 /min Dr. Eduard Henley MD Work Phone: 0(187)808-417135 [place] [address] 09-03-2024 03:53-0500 SaO2% (BldA) [Mass fraction] 98 % Dr. Eduard Henley MD Work Phone: 7(570)944-736335 [place] [address] 09-03-2024 03:53-0500 Systolic blood pressure 145 mm[Hg] Dr. Eduard Henley MD Work Phone: 6(368)292-514335 [place] [address] 09-03-2024 00:23-0500 Body mass index (BMI) [Ratio] 28.6 kg/m2 Dr. Eduard Henley MD Work Phone: 4(957)117-602135 [place] [address] 09-03-2024 00:23-0500 Body weight 95.[address] Eduard Henley MD Work Phone: 8(183)565-560935 [place] [address] 08-06-2024 13:53-0500 Body mass index (BMI) [Ratio] 28 kg/m2 Dr. Eduard Henley MD Work Phone: 1(583)488-346435 [place] [address] 08-06-2024 13:53-0500 Body weight 93.[address] Eduard Henley MD Work Phone: 5(010)006-188535 [place] [address] 08-06-2024 13:53-0500 Diastolic blood pressure 89 mm[Hg] Dr. Eduard Henley MD Work Phone: 7(155)531-830135 [place] [address] 08-06-2024 13:53-0500 Heart rate 89 /min Dr. Eduard Henley MD Work Phone: 4(524)551-776835 [place] [address] 08-06-2024 13:53-0500 Respiratory rate 16 /min Dr. Eduard Henley MD Work Phone: 6(335)788-455035 [place] [address] 08-06-2024 13:53-0500 Systolic blood pressure 138 mm[Hg] Dr. Eduard Henley MD Work Phone: 7(872)166-042935 [place] [address] 10-02-2023 08:45-0500 Body temperature 98.6 [degF] Dr. Sergei Henley Work Phone: [facility] 10-02-2023 08:45-0500 Diastolic blood pressure 84 mm[Hg] Dr. Sergei Henley Work Phone: [facility] 10-02-2023 08:45-0500 Heart rate 83 /min Dr. Sergei Henley Work Phone: 5(230)200-308746 [place] [address] 10-02-2023 08:45-0500 Respiratory rate 18 /min Dr. Sergei Henley Work Phone: [facility] 10-02-2023 08:45-0500 SaO2% (BldA) [Mass fraction] 97 % Dr. Sergei Henley Work Phone: 0(907)351-585146 [place] [address] 10-02-2023 08:45-0500 Systolic blood pressure 117 mm[Hg] Dr. Sergei Henley Work Phone: 0(862)896-927746 [place] [address] 10-02-2023 06:44-0500 Body height 182.[address] Sergei Henley Work Phone: 1(475)442-049325 [address] 10-02-2023 06:44-0500 Body mass index (BMI) [Ratio] 27.5 kg/m2 Dr. Sergei Henley Work Phone: 2(728)962-662146 [place] [address] 10-02-2023 06:44-0500 Body weight [address] Sergei Henley Work Phone: 1(457)884-567746 [place] [address] 09-11-2023 08:30-0500 Body height 182.[address] Sergei Henley Work Phone: 1(944)747-467925 [address] 09-11-2023 08:27-0500 Body mass index (BMI) [Ratio] 28.6 kg/m2 Dr. Sergei Henley Work Phone: [facility] 09-11-2023 08:27-0500 Body weight 95.[address] Sergei Henley Work Phone: 1(031)811-552046 [place] [address] 09-11-2023 08:27-0500 Diastolic blood pressure 85 mm[Hg] Dr. Sergei Henley Work Phone: [facility] 09-11-2023 08:27-0500 Heart rate 77 /min Dr. Sergei Henley Work Phone: [facility] 09-11-2023 08:27-0500 Respiratory rate 18 /min Dr. Sergei Henley Work Phone: [facility] 09-11-2023 08:27-0500 Systolic blood pressure 141 mm[Hg] Dr. Sergei Henley Work Phone: [facility] 07-17-2023 08:17-0500 Body mass index (BMI) [Ratio] 28.9 kg/m2 Dr. Sergei Henley Work Phone: [facility] 07-17-2023 08:17-0500 Body temperature 97.2 [degF] Dr. Sergei Henley Work Phone: [facility] 07-17-2023 08:17-0500 Body weight 96.[address] Sergei Henley Work Phone: [facility] 07-17-2023 08:17-0500 Diastolic blood pressure 88 mm[Hg] Dr. Sergei Henley Work Phone: [facility] 07-17-2023 08:17-0500 Heart rate 78 /min Dr. Sergei Henley Work Phone: [facility] 07-17-2023 08:17-0500 Respiratory rate 18 /min Dr. Sergei Henley Work Phone: [facility] 07-17-2023 08:17-0500 SaO2% (BldA) [Mass fraction] 98 % Dr. Sergei Henley Work Phone: [facility] 07-17-2023 08:17-0500 Systolic blood pressure 125 mm[Hg] Dr. Sergei Henley Work Phone: [facility] 06-15-2023 07:26-0500 Body temperature 97.9 [degF] Dr. Sergei Henley Work Phone: [facility] 06-15-2023 07:26-0500 Diastolic blood pressure 83 mm[Hg] Dr. Sergei Henley Work Phone: [facility] 06-15-2023 07:26-0500 Heart rate 80 /min Dr. Sergei Henley Work Phone: [facility] 06-15-2023 07:26-0500 Respiratory rate 16 /min Dr. Sergei Henley Work Phone: [facility] 06-15-2023 07:26-0500 SaO2% (BldA) [Mass fraction] 99 % Dr. Sergei Henley Work Phone: [facility] 06-15-2023 07:26-0500 Systolic blood pressure 119 mm[Hg] Dr. Sergei Henley Work Phone: [facility] 06-14-2023 21:15-0400 Body height 182.[address] Sergei Henley Work Phone: [facility] 06-14-2023 21:15-0400 Body mass index (BMI) [Ratio] 29 kg/m2 Dr. Sergei Henley Work Phone: [facility] 06-14-2023 21:15-0400 Body weight 97.[address] Sergei Henley Work Phone: [facility] 06-14-2023 21:09-0400 Body temperature 98.4 [degF] Dr. Sergei Henley Work Phone: [facility] 06-14-2023 21:09-0400 Diastolic blood pressure 100 mm[Hg] Dr. Sergei Henley Work Phone: [facility] 06-14-2023 21:09-0400 Heart rate 88 /min Dr. Sergei Henley Work Phone: [facility] 06-14-2023 21:09-0400 Respiratory rate 22 /min Dr. Sergei Henley Work Phone: [facility] 06-14-2023 21:09-0400 SaO2% (BldA) [Mass fraction] 93 % Dr. Sergei Henley Work Phone: [facility] 06-14-2023 21:09-0400 Systolic blood pressure 152 mm[Hg] Dr. Sergei Henley Work Phone: [facility] 06-14-2023 16:36-0400 Body height 182.[address] Sergei Henley Work Phone: [facility] 06-14-2023 16:36-0400 Body mass index (BMI) [Ratio] 28.8 kg/m2 Dr. Sergei Henley Work Phone: [facility] 06-14-2023 16:36-0400 Body weight 96.[address] Sergei Henley Work Phone: [facility] 05-20-2023 13:29-0400 Body height 182.[address] Sergei Henley Work Phone: [facility] 05-20-2023 13:27-0400 Body mass index (BMI) [Ratio] 29.4 kg/m2 Dr. Sergei Henley Work Phone: [facility] 05-20-2023 13:27-0400 Body weight 98.[address] Sergei Henley Work Phone: [facility] 05-20-2023 13:27-0400 Diastolic blood pressure 80 mm[Hg] Dr. Sergei Henley Work Phone: [facility] 05-20-2023 13:27-0400 Heart rate 84 /min Dr. Sergei Henley Work Phone: [facility] 05-20-2023 13:27-0400 Respiratory rate 18 /min Dr. Seregi Henley Work Phone: [facility] 05-20-2023 13:27-0400 Systolic blood pressure 131 mm[Hg] Dr. Sergei Henley Work Phone: [facility] 04-25-2023 13:00-0400 Body mass index (BMI) [Ratio] 28.9 kg/m2 Dr. Sergei Henley Work Phone: [facility] 04-25-2023 10:23-0400 Body temperature 97.8 [degF] Dr. Sergei Henley Work Phone: [facility] 04-25-2023 10:23-0400 Diastolic blood pressure 78 mm[Hg] Dr. Sergei Henley Work Phone: [facility] 04-25-2023 10:23-0400 Heart rate 63 /min Dr. Sergei Henley Work Phone: [facility] 04-25-2023 10:23-0400 Respiratory rate 18 /min Dr. Sergei Henley Work Phone: [facility] 04-25-2023 10:23-0400 SaO2% (BldA) [Mass fraction] 96 % Dr. Sergei Henley Work Phone: [facility] 04-25-2023 10:23-0400 Systolic blood pressure 112 mm[Hg] Dr. Sergei Henley Work Phone: [facility] 04-24-2023 00:09-0400 Body height 182.[address] Sergei Henley Work Phone: [facility] 04-24-2023 00:09-0400 Body weight 96.[address] Sergei Henley Work Phone: [facility] 04-23-2023 23:38-0400 Body temperature 97.9 [degF] [facility] 04-23-2023 23:38-0400 Diastolic blood pressure 83 mm[Hg] [facility] 04-23-2023 23:38-0400 Heart rate 86 /min [facility] 04-23-2023 23:38-0400 Respiratory rate 17 /min [facility] 04-23-2023 23:38-0400 SaO2% (BldA) [Mass fraction] 99 % [facility] 04-23-2023 23:38-0400 Systolic blood pressure 126 mm[Hg] [facility] 04-23-2023 21:58-0400 Body height 182.88 cm [facility] 04-23-2023 21:58-0400 Body mass index (BMI) [Ratio] 29.5 kg/m2 [facility] 04-23-2023 21:58-0400 Body weight 98.7 kg [facility] 10-31-2021 10:52-0400 Body temperature 97.6 [degF] Dr. Sergei Henley Work Phone: [facility] Work Phone: 10-31-2021 10:52-0400 Diastolic blood pressure 86 mm[Hg] Dr. Sergei Henley Work Phone: [facility] Work Phone: 10-31-2021 10:52-0400 Heart rate 83 /min Dr. Sergei Henley Work Phone: [facility] Work Phone: 10-31-2021 10:52-0400 Respiratory rate 16 /min Dr. Sergei Henley Work Phone: [facility] Work Phone: 10-31-2021 10:52-0400 SaO2% (BldA) [Mass fraction] 96 % Dr. Sergei Henley Work Phone: [facility] Work Phone: 10-31-2021 10:52-0400 Systolic blood pressure 133 mm[Hg] Dr. Sergei Henley Work Phone: [facility] Work Phone: 10-30-2021 19:35-0400 Body height 182.[address] Sergei Henley Work Phone: [facility] Work Phone: 10-30-2021 19:35-0400 Body mass index (BMI) [Ratio] 29 kg/m2 Dr. Sergei Henley Work Phone: [facility] Work Phone: 10-30-2021 19:35-0400 Body weight [address] Sergei Henley Work Phone: [facility] Work Phone: 10-30-2021 19:18-0400 Body temperature 98.2 [degF] Dr. Sergei Henley Work Phone: [facility] Work Phone: 10-30-2021 19:18-0400 Diastolic blood pressure 89 mm[Hg] Dr. Sergei Henley Work Phone: [facility] Work Phone: 10-30-2021 19:18-0400 Heart rate 99 /min Dr. Sergei Henley Work Phone: [facility] Work Phone: 10-30-2021 19:18-0400 Respiratory rate 16 /min Dr. Sergei Henley Work Phone: [facility] Work Phone: 10-30-2021 19:18-0400 SaO2% (BldA) [Mass fraction] 99 % Dr. Sergei Henley Work Phone: [facility] Work Phone: 10-30-2021 19:18-0400 Systolic blood pressure 142 mm[Hg] Dr. Sergei Henley Work Phone: [facility] Work Phone: 10-30-2021 15:00-0400 Body mass index (BMI) [Ratio] 30.2 kg/m2 Dr. Sergei Henley Work Phone: [facility] Work Phone: 10-30-2021 15:00-0400 Body weight 100.[address] Sergei Henley Work Phone: [facility] Work Phone: 08-20-2021 07:38-0500 Diastolic blood pressure 75 mm[Hg] Dr. Sergei Henley Work Phone: [facility] Work Phone: 08-20-2021 07:38-0500 Systolic blood pressure 138 mm[Hg] Dr. Sergei Henley Work Phone: [facility] Work Phone: 08-14-2020 07:21-0500 Body mass index (BMI) [Ratio] 29.1 kg/m2 Dr. Sergei Henley Work Phone: [facility] Work Phone: 01-20-2017 08:42-0400 BMI (Body Mass Index) 28.34 kg/m2 [facility] Work Phone: 01-20-2017 08:42-0400 BP Diastolic 76 mm[Hg] Harumi DeFinis [facility] Work Phone: 01-20-2017 08:42-0400 BP Systolic 118 mm[Hg] Harumi DeFinis [facility] Work Phone: 01-20-2017 08:42-0400 Height 182.88 cm Harumi DeFinis [facility] Work Phone: 01-20-2017 08:42-0400 Pulse (Heart Rate) 88 /min Harumi DeFinis [facility] Work Phone: 01-20-2017 08:42-0400 Respiratory Rate 20 /min Harumi DeFinis [facility] Work Phone: 01-20-2017 08:42-0400 Weight 94.8 kg Harumi DeFinis [facility] Work Phone: 07-09-2016 08:40-0500 Heart rate 75 /min Harumi DeFinis [facility] Work Phone: 07-09-2016 08:26-0500 BMI (Body Mass Index) 28.33 kg/m2 Harumi Fernando [facility] Work Phone: 07-09-2016 08:26-0500 BP Diastolic 90 mm[Hg] Harumi DeFinis [facility] Work Phone: 07-09-2016 08:26-0500 BP Systolic 130 mm[Hg] Harumi DeFinhenrik [facility] Work Phone: 07-09-2016 08:26-0500 BSA (Body Surface Area) 2.17 m2 Harumi DeFinis [facility] Work Phone: 07-09-2016 08:26-0500 Pulse (Heart Rate) 75 /min Hartony DeFinhenrik [facility] Work Phone: 07-09-2016 08:26-0500 Respiratory Rate 16 /min Hartony DeFinis [facility] Work Phone: 07-09-2016 08:26-0500 Weight 94.76 kg Hartony DeFinhenrik [facility] Work Phone: 07-07-2010 15:49-0500 Height 182.88 cm Russellumi DeFinhenrik [facility] Work Phone: Encounters Encounter Date Encounter Type Care Provider Facility Start: 05-05-2025 End: 05-05-2025 Patient encounter procedure Mitchell Dubois AUTO PAINTER-C -[facility] Work Phone: Start: 05-05-2025 End: 05-05-2025 ambulatory Mitchell Dubois NP Facility:[facility] Start: 01-27-2025 End: 01-27-[address] Eduard Henley MD Work Phone: [facility] Work Phone: Start: 01-27-2025 End: 01-27-[address] Eduard Henley MD -[facility] Start: 01-27-2025 End: 01-27-2025 ambulatory Eduard Henley Facility:[facility] Start: 01-22-2025 End: 01-22-2025 Emergency department [...] 11-03-2024 Non-patient / Non-visit Dr. Vita SY -[facility] Start: 11-03-2024 End: 11-03-[address] Eduard Henley MD Work Phone: [facility] Work Phone: Start: 11-03-2024 End: 11-03-2024 Patient encounter procedure Mitchell Dubois AUTO PAINTER-C -[facility] Work Phone: Start: 11-03-2024 End: 11-03-2024 ambulatory Mitchell Dubois NP Facility:[facility] Start: 09-28-2024 End: 09-28-[address] Eduard Henley MD -[facility] Start: 09-28-2024 End: 09-28-2024 ambulatory Eduard Henley Facility:[facility] Start: 09-03-2024 ambulatory Eduard Henley Faci lity:[facility] Start: 09-03-2024 Non-patient / Non-visit Dr. Francheska Ray MD -[facility] Work Phone: Start: 09-03-2024 End: 09-03-[address] Eileen Ray MD -[facility] Work Phone: Start: 09-03-2024 End: 09-03-2024 Emergency department patient visit Dr. Jesus Romero DO -Emergency Department Work Phone: Start: 09-03-2024 End: 09-03-2024 ambulatory Eduard Henley Facility:[facility] Start: 08-06-2024 End: 08-06-[address] Jose Lockwood MD -[facility] Work Phone: Start: 08-06-2024 End: 08-06-2024 ambulatory Eduard Henley Facility:[facility] Start: 05-18-2024 ambulatory Eduard Henley Faci lity:[facility] Start: 10-02-2023 Non-patient / Non-visit Dr. Mario Henley Work Phone: [facility] Start: 10-02-2023 End: 10-02-2023 Admission to same day surgery center Dr. Sergei Henley Work Phone: [facility] Work Phone: Start: 10-02-2023 End: 10-02-[address] Sergei Henley Work Phone: [facility] Work Phone: Start: 09-11-2023 End: 09-11-[address] Sergei Henley Work Phone: [facility] Work Phone: Start: 09-10-2023 End: 09-10-[address] Sergei Henley Work Phone: [facility] Work Phone: Start: 09-10-2023 End: 09-10-[address] Sergei Henley Work Phone: [facility] Start: 07-17-2023 End: 07-17-[address] Sergei Henley Work Phone: [facility] Work Phone: Start: 07-07-2023 End: 07-07-[address] Sergei Henley Work Phone: [facility] Work Phone: Start: 07-07-2023 End: 07-07-[address] Sergei Henley Work Phone: [facility] Work Phone: Start: 06-15-2023 Non-patient / Non-visit Dr. Mario Henley Work Phone: [facility] Work Phone: Start: 06-14-2023 End: 06-15-2023 Evaluation and management of inpatient Dr. Sergei Henley Work Phone: [facility] Work Phone: Start: 06-14-2023 End: 06-15-[address] Sergei Henley Work Phone: [facility] Work Phone: Start: 06-02-2023 End: 06-02-[address] Sergei Henley Work Phone: [facility] Work Phone: Start: 06-02-2023 End: 06-02-[address] Sergei Henley Work Phone: [facility] Start: 05-20-2023 End: 05-20-[address] Sergei Henley Work Phone: [facility] Work Phone: Start: 04-25-2023 Non-patient / Non-visit Dr. Mario Henley Work Phone: [facility] Work Phone: Start: 04-25-2023 Non-patient / Non-visit Dr. Mario Henley Work Phone: [facility] Start: 04-24-2023 Non-patient / Non-visit Dr. Mario Henley Work Phone: [facility] Start: 04-23-2023 Non-patient / Non-visit Dr. Mario Henley Work Phone: [facility] Work Phone: Start: 04-23-2023 End: 04-25-2023 Evaluation and management of inpatient [facility] Work Phone: Start: 05-06-2022 End: 05-06-2022 ambulatory [facility] Work Phone: Start: 05-06-2022 End: 05-06-2022 Patient encounter procedure [facility] Start: 10-31-2021 Non-patient / Non-visit Dr. Mario Henley Work Phone: [facility] Start: 10-30-2021 Non-patient / Non-visit Dr. Mario Henley Work Phone: [facility] Start: 10-30-2021 End: 10-31-2021 Evaluation and management of inpatient [facility] Serge[facility] Hen[facility] Start: 08-20-2021 End: 08-20-[address] Sergei Henley Work Phone: [facility] Procedures Date Procedure Procedure [...] med using the TPSA assay method for [employer] chemistry system. Values obtained with differentassay methods [...] MRI of brain without contrast Dr. Sergei Henlye Work Phone: Start: 04-23-2023 Plain chest X-ray [...] Lipid 1996 panel - Serum or Plasma Bhvaani Ralph PA-C Work Phone: Start: 11-28-2016 End: [...] 10-25-2013 End: 11-09-2013 *Hepatic Function Panel Brain Whtye MD Start: 10-25-2013 End: 10-25-2013 Electrocardiogram, complete [...] Date Care Activity Detail Author Start: 01-22-2025 [facility] Start: 01-22-2025 End: 01-22-2025 [facility] Start: 09-03-2024 [facility] Start: 02-22-2024 Patient discharge [facility] Start: 06-15-2023 Patient discharge [facility] Start: 06-14-2023 Following clinical pathway protocol [facility] Start: 06-14-2023 Assessment of risk of venous thromboembolism [facility] Start: 06-14-2023 Inhalation therapy procedure [facility] Start: 06-14-2023 Insertion of catheter into peripheral vein [facility] Start: 06-14-2023 Providing care according to standard [facility] Start: 06-14-2023 Provision of activity privileges [facility] Start: 06-14-2023 [facility] Start: 06-14-2023 Admission procedure [facility] Start: 06-14-2023 Verification routine [facility] Start: 06-14-2023 Hospital admission, emergency, from emergency room, medical nature [facility] Start: 04-25-2023 Patient referral [facility] Work Phone: Start: 04-25-2023 Patient discharge [facility] Start: 04-24-2023 Cardiac monitoring [facility] Start: 04-24-2023 Cardiac rehabilitation - phase 1 [facility] Start: 04-24-2023 Cardiac rehabilitation - phase 2 [facility] Start: 04-24-2023 Patient discharge [facility] Start: 04-24-2023 Systemic arterial pressure monitoring [facility] Start: 04-24-2023 End: 04-24-2023 Taking patient vital signs [facility] Start: 04-24-2023 Vascular disease risk assessment [facility] Start: 04-24-2023 Vital signs measurements [facility] Start: 04-24-2023 End: 04-24-2023 [facility] Start: 04-24-2023 End: 04-24-2023 Notification of physician [facility] Start: 04-24-2023 Patient education [facility] Start: 04-24-2023 Provision of activity privileges [facility] Start: 04-24-2023 Pulse taking [facility] Start: 04-24-2023 Wound care [facility] Start: 04-24-2023 Referral to customs inspector [facility] Start: 04-24-2023 Following clinical pathway protocol [facility] Start: 04-24-2023 Assessment of risk of venous thromboembolism [facility] Start: 04-24-2023 Cardiac monitoring [facility] Start: 04-24-2023 Catheterization of vein [facility] Start: 04-24-2023 Elevation of head of bed [facility] Start: 04-24-2023 Exercises [facility] Start: 04-24-2023 Implementation of planned interventions [facility] Start: 04-24-2023 Insertion of catheter into peripheral vein [facility] Start: 04-24-2023 Measuring intake and output [facility] Start: 04-24-2023 Notification of physician [facility] Start: 04-24-2023 Providing care according to standard [facility] Start: 04-24-2023 Provision of activity privileges [facility] Start: 04-24-2023 Referral to occupational therapist [facility] Start: 04-24-2023 Referral to service [facility] Start: 04-24-2023 Speech therapy assessment [facility] Start: 04-24-2023 Tobacco use cessation education [facility] Start: 04-24-2023 [facility] Start: 04-24-2023 Vital signs measurements [facility] Start: 04-23-2023 Electrocardiographic procedure [facility] Start: 04-23-2023 Verification routine [facility] Start: 04-23-2023 Admission procedure [facility] Start: 04-23-2023 Oxygen therapy [facility] Start: 04-23-2023 [facility] Start: 01-26-2018 End: 01-26-2018 Appointment Appointment [facility] Work Phone: Start: 08-12-2017 End: 08-12-2017 Appointment Appointment [facility] Phone: Start: 06-03-2017 End: 12-06-2016 *Hepatic Function Panel *Hepatic Function Panel [facility] Phone: Start: 06-03-2017 End: 12-06-2016 Lipid panel [AGGREGATE] *Lipid Profile CC PCP [facility] Work Phone: Start: 06-03-2017 End: 12-06-2016 *Hepatic Function Panel *Hepatic Function Panel [facility] Work Phone: Start: 06-03-2017 End: 12-06-2016 Lipid panel [AGGREGATE] *Lipid Profile CC PCP [facility] Work Phone: Start: 01-20-2017 End: 01-20-2017 Appointment Appointment [facility] Work Phone: Start: 01-20-2017 End: 01-20-2017 Appointment Appointment [facility] Work Phone: Start: 01-20-2017 End: 01-20-2017 Follow Up Appt 6 months Follow Up Appt 6 months [facility] Work Phone: Start: 01-20-2017 End: 01-20-2017 MMM MMM [facility] Work Phone: Start: 11-28-2016 End: 12-02-2016 *Hepatic Function Panel *Hepatic Function Panel [facility] Work Phone: Start: 11-28-2016 End: 12-02-2016 Lipid panel [AGGREGATE] *Lipid Profile CC PCP [facility] Work Phone: Start: 11-28-2016 End: 12-02-2016 *Hepatic Function Panel *Hepatic Function Panel [facility] Work Phone: Start: 11-28-2016 End: 12-02-2016 Lipid panel [AGGREGATE] *Lipid Profile CC PCP [facility] Work Phone: Start: 07-09-2016 End: 07-09-2016 Follow Up Appt 6 months Follow Up Appt 6 months [facility] Work Phone: Start: 07-09-2016 End: 07-09-2016 PFM PFM [facility] Work Phone: Start: 07-09-2016 End: 07-09-2016 Follow Up Appt 6 months Follow Up Appt 6 months [facility] Work Phone: Start: 07-09-2016 End: 07-09-2016 PFM PFM [facility] Work Phone: Start: 05-03-2016 End: 05-30-2016 *Hepatic Function Panel *Hepatic Function Panel [facility] Work Phone: Start: 05-03-2016 End: 05-30-2016 Lipid panel [AGGREGATE] *Lipid Profile CC PCP [facility] Work Phone: Start: 05-03-2016 End: 05-30-2016 *Hepatic Function Panel *Hepatic Function Panel [facility] Work Phone: Start: 05-03-2016 End: 05-30-2016 Lipid panel [AGGREGATE] *Lipid Profile CC PCP [facility] Work Phone: Start: 01-05-2016 End: 01-05-2016 Follow Up Appt 6 months Follow Up Appt 6 months [facility] Work Phone: Start: 01-05-2016 End: 01-05-2016 MMM MMM [facility] Work Phone: Start: 01-05-2016 End: 01-05-2016 Follow Up Appt 6 months Follow Up Appt 6 months [facility] Work Phone: Start: 01-05-2016 End: 01-05-2016 MMM MMM [facility] Work Phone: Start: 10-31-2015 End: [...] w/least 12 lds w/i&r EKG (In office) [facility] Work Phone: Start: 05-05-2015 End: 05-05-2015 Follow Up Appt 6 months Follow Up Appt 6 months [facility] Work Phone: Start: 05-05-2015 End: 05-01-2015 Lipid panel [AGGREGATE] *Lipid Profile CC PCP [facility] Work Phone: Start: 05-05-2015 End: 05-30-2016 PFM PFM [facility] Work Phone: Start: 05-05-2015 End: 05-01-2015 *Hepatic Function Panel *Hepatic Function Panel [facility] Work Phone: Start: 05-05-2015 End: 05-30-2016 Electrocardiogram, complete EKG (In office) [facility] Work Phone: Start: 05-05-2015 End: 05-05-2015 Follow Up Appt 6 months Follow Up Appt 6 months [facility] Work Phone: Start: 05-05-2015 End: 05-01-2015 Lipid panel [AGGREGATE] *Lipid Profile CC PCP [facility] Work Phone: Start: 05-05-2015 End: 05-30-2016 PFM PFM [facility] Work Phone: Start: 11-04-2014 End: 04-26-2015 *Hepatic Function Panel *Hepatic Function Panel [facility] Work Phone: Start: 11-04-2014 End: 04-26-2015 Follow Up Appt 6 months Follow Up Appt 6 months [facility] Work Phone: Start: 11-04-2014 End: 04-26-2015 Lipid panel [AGGREGATE] *Lipid Profile CC PCP [facility] Work Phone: Start: 11-04-2014 End: 04-26-2015 MMM MMM [facility] Work Phone: Start: 11-04-2014 End: 04-26-2015 *Hepatic Function Panel *Hepatic Function Panel [facility] Work Phone: Start: 11-04-2014 End: 04-26-2015 Follow Up Appt 6 months Follow Up Appt 6 months [facility] Work Phone: Start: 11-04-2014 End: 04-26-2015 Lipid panel [AGGREGATE] *Lipid Profile CC PCP [facility] Work Phone: Start: 11-04-2014 End: 04-26-2015 MMM MMM [facility] Work Phone: Start: 10-31-2014 End: 11-03-2014 *Hepatic Function Panel *Hepatic Function Panel [facility] Work Phone: Start: 10-31-2014 End: 11-03-2014 Lipid panel [AGGREGATE] *Lipid Profile CC PCP [facility] Work Phone: Start: 10-31-2014 End: 11-03-2014 *Hepatic Function Panel *Hepatic Function Panel [facility] Work Phone: Start: 10-31-2014 End: 11-03-2014 Lipid panel [AGGREGATE] *Lipid Profile CC PCP [facility] Work Phone: Start: 05-02-2014 End: 04-26-2015 Follow Up Appt 6 months Follow Up Appt 6 months [facility] Work Phone: Start: 05-02-2014 End: 04-26-2015 PFM PFM [facility] Work Phone: Start: 05-02-2014 End: 04-26-2015 Follow Up Appt 6 months Follow Up Appt 6 months [facility] Work Phone: Start: 05-02-2014 End: [...] 6 months Follow Up Appt 6 months [facility] Work Phone: Start: 10-25-2013 End: 11-09-2013 Lipid panel [AGGREGATE] *Lipid Profile CC PCP [facility] Work Phone: Start: 10-25-2013 End: [...] stress test -exercise Nuclear stress test -exercise [facility] Work Phone: Start: 05-11-2013 End: 06-07-2013 *Hepatic Function Panel *Hepatic Function Panel [facility] Work Phone: Start: 05-11-2013 End: 06-07-2013 Lipid panel [AGGREGATE] *Lipid Profile [facility] Work Phone: Start: 05-11-2013 End: 06-07-2013 *Hepatic Function Panel *Hepatic Function Panel [facility] Work Phone: Start: 05-11-2013 End: 06-07-2013 Lipid panel [AGGREGATE] *Lipid Profile [facility] Work Phone: Start: 01-11-2013 End: 01-11-2013 Follow Up Appt 6 months Follow Up Appt 6 months [facility] Work Phone: Start: 01-11-2013 End: 01-11-2013 PFM PFM [facility] Work Phone: Start: 01-11-2013 End: 01-11-2013 Follow Up Appt 6 months Follow Up Appt 6 months [facility] Work Phone: Start: 01-11-2013 End: 01-11-2013 PFM PFM [facility] Work Phone: Start: 11-09-2012 End: 11-11-2012 *Hepatic Function Panel *Hepatic Function Panel [facility] Work Phone: Start: 11-09-2012 End: 11-11-2012 Lipid panel [AGGREGATE] *Lipid Profile [facility] Work Phone: Start: 11-09-2012 End: 11-11-2012 *Hepatic Function Panel *Hepatic Function Panel [facility] Work Phone: Start: 11-09-2012 End: 11-11-2012 Lipid panel [AGGREGATE] *Lipid Profile [facility] Work Phone: Start: 06-01-2012 End: 06-10-2012 *Hepatic Function Panel *Hepatic Function Panel [facility] Work Phone: Start: 06-01-2012 End: 12-30-2012 Follow Up Appt 6 months Follow Up Appt 6 months [facility] Work Phone: Start: 06-01-2012 End: 06-10-2012 Lipid panel [AGGREGATE] *Lipid Profile [facility] Work Phone: Start: 06-01-2012 End: 06-10-2012 *Hepatic Function Panel *Hepatic Function Panel [facility] Work Phone: Start: 06-01-2012 End: 12-30-2012 Follow Up Appt 6 months Follow Up Appt 6 months [facility] Work Phone: Start: 06-01-2012 End: 06-10-2012 Lipid panel [AGGREGATE] *Lipid Profile [facility] Work Phone: Start: 11-28-2011 End: 11-28-2011 Follow Up Appt 6 months Follow Up Appt 6 months [facility] Work Phone: Start: 11-28-2011 End: 11-28-2011 Follow Up Appt 6 months Follow Up Appt 6 months [facility] Work Phone: Lipid 1996 panel - S sharon or Plasma [facility] Patient Education [facility] Work Phone: Patient referral [facility] Work Phone: Troponin T.cardiac [Mass/volume] in Serum or Plasma by High sensitivity method [facility] Immunizations Immunization Date Immunization Notes Care Provider Fa cili 05-11-2021 Influenza, high dose seasonal Dr. Eduard Henley MD Work Phone: [facility] 05-11-2021 influenza, high dose seasonal, preservative-free Dr. Sergei Henley Work Phone: [facility] 06-25-[address] Sergei Henley Work Phone: [facility] 01-11-2014 tetanus and diphther ia toxoids, adsorbed, preservative free, for adult use (2 Lf of tetanus toxoid and 2 Lf of diphtheria toxoid) Dr. Sergei Henley Work Phone: [facility] Payers Date Payer Category Payer Private Health Insurance [id number] 2024 Private Health Insurance [id number] 2024 Self-pay [id number] 2011 Private Health Insurance [id number] Unknown [id number] 2.16.8 [id number] Unknown [id number] 2.16.8 [id number] Unknown [id number] 2.16.8 [id number] Unknown [id number] 2.16.8 [id number] Unknown [id number] 2.16.8 [id number] Unknown [id number] 2.16.8 [id number] Unknown [id number] 2.16.8 [id number] Unknown [id number] 2.16.8 [id number] Unknown [id number] 2.16.8 [id number] Unknown [id number] 2.16.8 [id number] Unknown [id number] 2.16.8 [id number] Unknown [id number] 2.16.8 [id number] Unknown [id number] 2.16.8 [id number] Social History Date Type Detail Facility Start: 10-30-2021 End: 09-25-2023 Tobacco smoking status NHIS Unknown if ever smoked [facility] Start: 10-23-2017 Heavy [facility] Start: 10-23-2017 None [facility] Start: 10-23-2017 Spouse/ Signif icant Other [facility] Start: 10-23-2017 Cigars [facility] Start: 1965 Sex Assigned At Male W [facility] Start: 04-25-2023 - [facility] Start: 10-27-2024 End: 01-22-2025 Tobacco smoking status NHIS Ex-smoker (finding) [facility] Start: 11-07-2024 Sex Male (finding) [facility] Sex Male [facility] Medical Equipment Procedure Code Equipment Code Equipment Origin al Text Equipment Identifier Dates Drug-eluting coronary artery stent, [id number] lymer-coated ()[id number] FDA Start: 04-24-2023 Drug-eluting coronary artery stent, [id number] lymer-coated ()[id number] 02 FDA Start: 04-24-2023 Goals Date Patient Goal Desired Activity /State Functional Status Date Assessment Result Facility 06-15-2023 Functional status Activity Ability Indepe ndent [facility] Work Phone: 04-25-2023 Functional status Ambulates;Up a d jovon;Bathroom Privilege [facility] Work Phone: 10-31-2021 Functional status Independent [facility] Work Phone: Mental Status Date Assessment Result Facility 01-22-2025 Cognitive function Voice/Name [facility] Work Phone: 09-03-2024 Cognitive function Voice/Name [facility] Work Phone: 10-02-2023 Cognitive function Voice/Name [facility] Work Phone: 06-14-2023 Cognitive function Appropriate;Cooperativ e [facility] Work Phone: 04-25-2023 Cognitive function Voice/Name [facility] Work Phone: 04-23-2023 Cognitive function Voice/Name [facility] Work Phone: 10-31-2021 Cognitive function Voice/Name [facility] Work Phone: 10-30-2021 Cognitive function Voice/Name [facility] Work Phone: Clinical Notes 06-11-2010 to 05-05-2025 Note Date & Type Note Facility 05-05-2025 Progress note [facility] 01-22-2025 Discharge summary [facility] 01-22-2025 Discharge summary [facility] 01-22-2025 Radiology Diagnostic study note [facility] Imaging Services [address] [place], [place] [address] Chest 1 View (Portable) MR#: [id number] Acct: [id number] Name: JOVANY MUÑIZ Rep #: [id number] : [id number] M [id number] From: Shanelle Ramos MD PCP: Dr. Eduard Henley MD Status: REG ER Study:Chest 1 View (Portable) Date of Exam: 01/22/25 Exam# [id number] Ordering Dr: Dave Mercer MD PROCEDURE: CHEST 1 VIEW (PORTABLE) 01/22/2025 REASON FOR EXAM: CHEST PAIN TECHNIQUE: Frontal view of the chest. COMPARISON: Chest radiograph 09/03/2024. FINDINGS: Hardware: None. Heart: The heart size is normal. Lungs: No focal consolidation, pleural effusion or pneumothorax. Bones: Degenerative changes are identified within the thoracic spine. RAD/Chest 1 View (Portable) IMPRESSION: Negative Chest. Reading Location: [facility] CC: Dr. Eduard Henley MD; Dr. Robert Mercer MD ~ Group Home Paraprofessional: Signed [facility] 01-22-2025 Discharge summary Note Date/Time January 22, 2025 5:53pm [facility] Medical Records Department [address] [place] [address] Emergency Department Summary 01/22/25 MR#: [id number] Acct: [id number] Name: JOVANY MUÑIZ Rep #:[id number] : 1965 59 From: Robert Mercer [...] TAD Risk Factors: Negative for Marfan's Syndrome [facility] Medical History Wears partial dentures High cholesterol Heartburn Gastric reflux History of diverticulitis Former smoker History of heart attack History of echocardiogram History of stress test Hypertension Cardiology follow-up encounter Sigmoid diverticulitis History of coronary artery disease Presence of stent in coronary artery (04/25/23) Essential hypertension HLD (hyperlipidemia) Old myocardial infarction 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 Equal and symmetrical radial pulses. Dorsi [...] % (Auto) 64.2 Lymph % (Auto) 22.1 Posey % (Auto) 10.1 H Eos % (Auto) [...] 01/22/25 14:25 IMPRESSION: Negative Chest. Reading Location: [facility] Chest x-ray, portable, single view interpreted [...] bad we can find today. Print Language: Macedonian Disposition Disposition: Home, Self Care What to do if you have Problems For any increased pain, shortness of breath, bleeding, nausea or vomiting, chestpain, or any unexpected problems, contact your Primary Care Provider. Call [facility] ([phone]) or report to the closest Emergency Room. Call 911 if necessary. 01/22/251752 <Electronically signed by Robert Mercer MD> [facility] Signature (if applicable): CC: Dr. 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 Print Language: Macedonian Disposition Disposition: Home, Self Care What to do if you have Problems For any increased pain, shortness of breath, bleeding, nausea or vomiting, chestpain, or any unexpected problems, contact your Primary Care Provider. Call [facility] ([phone]) or report to the closest Emergency Room. Call 911 if necessary. 01/22/256 <Electronically signed by Robert Mercer MD> Cosigner Signature (if applicable): CC: Dr. Eduard Henley MD ~ Signed [facility] Work Phone: 1(782) 627-910004-01-2025 Evaluation note* Diagnosis Onset Date Resolution Status Admit Date Encounter for examination required by Department of 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) acute November 09, 2024 5:56am [facility] Work Phone: 1(400) 160-218812-27-2024 Evaluation note* Diagnosis Onset Date Resolution Status Admit Date HLD (hyperlipidemia) chronic Dece mber 2023 1:33pm Presence of coronary angioplasty implant and graft April 25, 2023 chronic August 062023 1:33pm [facility] Work Phone: 1(960) 267-984802-22-2024 Procedure [facility] 10-02-2023 Procedure [facility]02-22-2024 Procedure note [facility] Procedure [facility] 06-15-2023 Progress note Author Rommel Youssef [facility] June 15, 2023 10:24am Note Date/Time June 15, 2023 7 :38am [facility] Medical Records Department [address] [place] [address] Progress Note - Hospitalist 06/15/23 0733 MR#: [id number] Acct: [id number] Name: JOVANY MUÑIZ Rep #:[id number] : 1965 57 From: oRmmel Youssef DO PCP: Dr. Sergei Henley MD Status: ADM FELICITA Location: SC3 VI480-5 Subjective Subjective Feeling better. Tolerated full liquid [...] 83.8 H, Lymph % (Auto) 10.2 L, Posey % (Auto) 2.7, Eos % (Auto) 2.5, [...] Clarity Clear, Urine pH 7.0, Ur Specific [place] 1.010, Urine Protein Negative, Urine Glucose (UA) [...] 17:53 EDT Reading Location ID and State: [facility] / [place] Tel , Service support , Physical Exam [...] Cosigner Signature (if applicable): CC: ~ Signed [facility] Work Phone: 1(154) 314-924111-04-2023 History and physical note Author Meliza Ramírez [facility] June 14, 2023 7:41pm Note Date/Time June 14, 2023 7 :41pm [facility] Medical Records Department [address] [place] [address] H&P Exam - Hospitalist 06/14/231930 MR#: [id number] Acct: [id number] Name: JOVANY MUÑIZ Rep #:[id number] : 1965 57 From: Meliza Ramírez MD PCP: Dr. Sergei Henley MD Status: REG ER Location: ED HPI - General General Date of Admission: 06/14/23 Date of Service: 06/14/23 Chief Complaint: Abdominal pain HPI Narrative JOVANY MUÑIZ, is a 57-year-old male history of hypertension, coronary artery disease with stent placement 2 months ago who presented to [facility] 06/14/2023 with abdominal pain x1 day. [...] denied any withdrawal symptoms at that time. 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 (04/25/23) Essential hypertension History of coronary artery disease HLD (hyperlipidemia) Old myocardial infarction Presence of stent in coronary artery (04/25/23) Home Medications aspirin 81 mg tablet,delayed release (Adult Low Dose Aspirin) 81 mg PO QDAY [facility] 08/06/17 [History Last Taken 10/30/21] buspirone 5 [...] subcutaneous pen injector (Repatha SureClick) 140 mg [id number] #2 mL 06/13/23 [Rx Last Taken Unknown] [...] 83.8 H, Lymph % (Auto) 10.2 L, Posey % (Auto) 2.7, Eos % (Auto) 2.5, [...] Clarity Clear, Urine pH 7.0, Ur Specific Mandaree 1.010, Urine Protein Negative, Urine Glucose (UA) [...] documentation, 56minutes Charges/Coding Visit Charges Inpatient E&M: 43004 Init Hosp L2 06/14/231940 <Electronically signed by Meliza Ramírez MD> Cosigner Signature (if applicable): CC: Dr. Sergei Henley MD; Dr. Meliza Ramírez MD~ Signed [facility] Work Phone: 1(691) 647-195211-04-2023 Discharge summary Author Donta Swenson [facility] June 14, 2023 7:24pm Note Date/Time June 14, 2023 4 :52pm [facility] Medical Records Department [address] [place] [address] Emergency Department Summary 06/14/23 MR#: [id number] Acct: [id number] Name: JOVANY MUÑIZ Rep #:[id number] : 1965 57 From: Donta Swenson [...] yesterday and he is not passing gas. 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 (04/25/23) Essential hypertension History of coronary artery disease HLD (hyperlipidemia) Old myocardial infarction Presence of stent in coronary artery (04/25/23) Home Medications aspirin 81 mg tablet,delayed release (Adult Low Dose Aspirin) 81 mg PO QDAY [facility] 08/06/17 [History Last Taken 10/30/21] buspirone 5 [...] subcutaneous pen injector (Repatha SureClick) 140 mg [id number] #2 mL 06/13/23 [Rx Last Taken Unknown] [...] 83.8 H Lymph % (Auto) 10.2 L Posey % (Auto) 2.7 Eos % (Auto) 2.5 [...] Clarity Clear Urine pH 7.0 Ur Specific [place] 1.010 Urine Protein Negative Urine Glucose (UA) [...] pain, Sigmoid diverticulitis Disposition Disposition: Acute Care [facility] What to do if you have Problems For any increased pain, shortness of breath, bleeding, nausea or vomiting, chestpain, or any unexpected problems, contact your Primary Care Provider. Call [facility] ([phone]) or report to the closest Emergency Room. Call 911 if necessary. 06/14/231923 <Electronically signed by Donta Swenson MD> Cosigner Signature (if applicable): CC: Dr. Sergei Henley MD ~ Signed [facility] Work Phone: 1([phone]) 788-810111-04-2023 Discharge summary Author Donta [facility] June 14, 2023 7:24pm Note Date/Time June 14, 2023 4 :52pm [facility] Medical Records Department [address] [place] [address] Emergency Department Summary 06/14/23 MR#: [id number] Acct: [id number] Name: JOVANY MUÑIZ Rep #:[id number] : 1965 57 From: Donta Swenson [...] yesterday and he is not passing gas. 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 (04/25/23) Essential hypertension History of coronary artery disease HLD (hyperlipidemia) Old myocardial infarction Presence of stent in coronary artery (04/25/23) Home Medications aspirin 81 mg tablet,delayed release (Adult Low Dose Aspirin) 81 mg PO QDAY [facility] 08/06/17 [History Last Taken 10/30/21] buspirone 5 [...] subcutaneous pen injector (Repatha SureClick) 140 mg [id number] #2 mL 06/13/23 [Rx Last Taken Unknown] [...] 83.8 H Lymph % (Auto) 10.2 L Posey % (Auto) 2.7 Eos % (Auto) 2.5 [...] Clarity Clear Urine pH 7.0 Ur Specific Mandaree 1.010 Urine Protein Negative Urine Glucose (UA) [...] Sigmoid diverticulitis Disposition Disposition: Acute Care [facility] What to do if you have Problems For any increased pain, shortness of breath, bleeding, nausea or vomiting, chestpain, or any unexpected problems, contact your Primary Care Provider. Call [facility] ([phone]) or report to the closest Emergency Room. Call 911 if necessary. 06/14/231923 <Electronically signed by Donta Swenson MD> Cosigner Signature (if applicable): CC: Dr. Sergei Henley MD ~ Signed [facility] Work Phone: 1(833) 672-137109-15-2023 Discharge summary Author Rommel Youssef [facility] April 25, 2023 12:09pm Note Date/Time April 25, 2023 12:06pm [facility] Medical Records Department [address] [place] [address] Discharge Summary 04/25/23 1203 MR#: [id number] Acct: [id number] Name: JOVANY MUÑIZ Rep #:[id number] : 1965 57 From: Rommel Youssef DO PCP: Dr. Sergei Henley MD Status: ADM IN Location: [place] [address] Providers Date of Admission: 04/23/23 Primary Care [...] Clear Calc 89.08, Est GFR (MDRD) Af Mfld682, Est GFR (MDRD) Non-Af 83, BUN/Creatinine Ratio [...] 90 Patient Comments: Referrals / Follow Up: [facility] [Provider Group] - Within 1 Month Sergei Henley MD [Primary Care Provider] - Within 2 Weeks Disposition Disposition (needs filled in before D/C Order can be placed): Home, Self Care Charges/Coding Visit Charges Inpatient E&M: 93852 Disch Hosp >30min 04/25/23 1209 <Electronically signed by Rommel Youssef DO> Cosigner Signature (if applicable): CC: Dr. Sergei Henley MD; Dr. Rommel Youssef DO~ Signed [facility] Work Phone: 1(189) 612-714209-15-2023 Progress note Author Rommel Youssef [facility] April 25, 2023 12:03pm Note Date/Time April 25, 2023 8:51am [facility] Medical Records Department [address] [place] [address] Progress Note - Hospitalist 04/25/23 0850 MR#: [id number] Acct: [id number] Name: JOVANY MUÑIZ Rep #:[id number] : 1965 57 From: Rommel Youssef DO PCP: Dr. 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 Ordering Physician: Ar Torres Referring Physician: Edurad Henley MD Performed By: Karely Sanchez, MARENCS, [...] Cosigner Signature (if applicable): CC: ~ Signed [facility] Work Phone: 1(136) 447-240009-15-2023 Evaluation note* Diagnosis Onset Date Resolution Status Admit Date Essential hypertension chronic Se pt2024 8:12am HLD (hyperlipidemia) chronic Apr 8:12am Presence of coronary angioplasty implant and graft April 25, 2023 chronic April 122024 8:12am [facility] Work Phone: 1(238) 130-967109-15-2023 Progress note Author Jose Lockwood [facility] April 25, 2023 7:23am Note Date/Time April 25, 2023 7:23am [facility] Medical Records Department [address] [place] [address] Progress Note - Cardiology 04/25/2320 MR#: [id number] Acct: [id number] Name: JOVANY MUÑIZ Rep #:[id number] : 1965 57 From: Jose Lockwood MD PCP: Dr. Sergei Henley MD Status: ADM IN Location: [place] [address] Subjective Subjective Patient seen and evaluated appears [...] hr 04/24/23 07:02: Troponin I High Sens 51060 H* 04/24/23 10:33: Activated Clotting Time 197 [...] Orientation: awake and alert Coordination / Balance: rzektp-ln-vebb test normal and cruq-bh-ocue test normal Speech: speech normal Psych affect [...] intensity statin. 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 Sergei Henley MD Status: ADM IN Location: [place] [address] Subjective Subjective Feels well. Some mild chest [...] % (Auto) 48.0, Lymph % (Auto) 32.1, Posey% (Auto) 12.1 H, Eos % (Auto) 6.3 [...] % (Auto) 64.2, Lymph % (Auto) 20.9, Posey% (Auto) 9.2, Eos % (Auto) 4.3, Baso [...] 106, Calcium 9.2, Troponin I High Sens 53092 H*, Triglycerides 258 H, Cholesterol 210 H, LDL Cholesterol 87, VLDL Cholesterol 52 H, HDL Cholesterol 71 04/24/23 07:02: Troponin I High Sens 20862 H* Radiography Diagnostic Testing: Radiology Impression Brain [...] Reading Location ID and State: 994 / [employer] Tel , Service support , Head/Neck CTA 04/23/23 21:34 IMPRESSION: Normal CTA Head with contrast. Moderate (60%) carotid stenosis bilaterally. Patent vertebral arteries bilaterally. Electronically Signed: Kris White MD at 22:05 EDT Reading Location ID and State: 994 / [employer] Tel , Service support , ADDENDUM: 04/23/233 IMPRESSION: Normal CTA Head with contrast. Moderate (60%) carotid stenosis bilaterally. Patent vertebral arteries bilaterally. N.B. : The above Results were Read Back by Kris White MD to Perez Dave DO, and understanding confirmed on 04/23/2023 22:06:20 (ET). Electronically Signed: Kris White MD at 22:05 EDT Reading Location ID and State: 994 / [employer] Tel , Service support , Chest X-Ray 04/23/23 22:14 IMPRESSION: Normal x-ray examination of the chest. Electronically Signed: Kris White MD at 22:32 EDT Reading Location ID and State: 994 / [employer] Tel , Service support , Physical Exam [...] Orientation: awake and alert Coordination / Balance: seyfxa-dt-zaot test normal and rfmv-wn-vzgc test normal Speech: speech normal Psych affect [...] is anticoagulated. Charges/Coding Visit Charges Inpatient E&M: 84281 Subs Hosp L2 04/24/23 3696 <Electronically signed by Rommel Youssef DO> Cosigner Signature (if applicable): CC: ~ Signed [facility] Work Phone: 1(761) 775-810709-14-2023 History and physical note Author Ar Torres [facility] April 24, 2023 10:35am Note Date/Time April 23, 2023 11:01pm [facility] Medical Records Department [address] [address] H&P Exam - Hospitalist 04/23/23 2301 MR#: [id number] Acct: [id number] Name: JOVANY MUÑIZ Rep #:[id number] : 1965 57 From: Ar Torres MD PCP: Dr. Sergei Henley MD Status: ADM IN Location: [place] [id number]- 1 HPI - General General Date of [...] and patient was not acandidate of thrombolytics. 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 Moderate (60%) carotid stenosis bilaterally. Patent vertebral arteries bilaterally. N.B. : The above Results were Read Back by Kris White MD to Perez Dave DO, and understanding confirmed on 04/23/2023 22:06:20 (ET). Electronically Signed: Kris White MD at 22:05 EDT Reading Location ID and State: 994 / [employer] Tel , Service support , Chest X-Ray 04/23/23 22:14 IMPRESSION: Normal x-ray examination of the chest. Electronically Signed: Kris White MD at 22:32 EDT Reading Location ID and State: 994 / [employer] Tel , Service support , Assessment & [...] documentation, 70minutes. Charges/Coding Visit Charges Inpatient E&M: 03122 Init Hosp L3 04/24/23 1035 <Electronically signed by Ar Torres MD> Cosigner Signature (if applicable): CC: Dr. Sergei Henley MD; Dr. Ar Torres MD~ Signed [facility] Work Phone: 1(438) 206-546709-14-2023 Consult note Author Jose Lockwood [facility] April 24, 2023 10:00am Note Date/Time April 24, 2023 7:34am [facility] Medical Records Department [address] [place] [address] Consultation - Cardiology 04/24/2326 MR#: [id number] Acct: [id number] Name: JOVANY MUÑIZ Rep #:[id number] : 1965 57 From: Jose Lockwood MD PCP: Dr. Sergei Henley MD Status: ADM IN Location: [place] [address] Assessment & Plan Assessment/Plan (1) NSTEMI (non-ST [...] intensity statin. 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 [facility] Medical History (Updated 04/24/23 @ 07:[address] 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 Essential hypertension [...] % (Auto) 48.0, Lymph % (Auto) 32.1, Posey% (Auto) 12.1 H, Eos % (Auto) 6.3 [...] % (Auto) 64.2, Lymph % (Auto) 20.9, Posey% (Auto) 9.2, Eos % (Auto) 4.3, Baso [...] 106, Calcium 9.2, Troponin I High Sens 43326 H*, Triglycerides 258 H, Cholesterol 210 H, LDL Cholesterol 87, VLDL Cholesterol 52 H, HDL Cholesterol 71 Cardiology Labs/Tests 04/23/23 21:30: WBC 5.3, RBC 4.28 L, Hgb 14.0, Hct 42.3, MCV 98.8 H, MCH 32.7 H,MCHC 33.1, Plt Count 226, MPV 9.5, Immature Gran % (Auto) 0.400, Neut % (Auto) 48.0, Lymph % (Auto) 32.1, Posey % (Auto) 12.1 H, Eos % (Auto) [...] % (Auto) 64.2, Lymph % (Auto) 20.9, Posey % (Auto) 9.2, Eos % (Auto) 4.3, [...] Reading Location ID and State: 994 / [employer] Tel , Service support , ADDENDUM: 04/23/232201 IMPRESSION: Negative Brain CT without contrast. N.B. : The above Results were Read Back by Kris White MD to Perez Dave DO, and understanding confirmed on 04/23/2023 21:55:56 (ET). Electronically Signed: Kris White MD at 21:54 EDT Reading Location ID and State: 994 / [employer] Tel , Service support , Head/Neck CTA 04/23/23 21:34 IMPRESSION: Normal CTA Head with contrast. Moderate (60%) carotid stenosis bilaterally. Patent vertebral arteries bilaterally. Electronically Signed: Kris White MD at 22:05 EDT Reading Location ID and State: 994 / [employer] Tel , Service support , ADDENDUM: 04/23/23 [...] Lockwood MD; Dr. Ar Torres MD~ Signed [facility] Work Phone: 1(552) 662-442609-14-2023 Discharge summary Author [facility] April 24, 2023 12:00am Note Date/Time April 23, 2023 9:39pm [facility] Medical Records Department [address] [place] [address] Emergency Department Summary 04/23/23 MR#: [id number] Acct: [id number] Name: JOVANY MUÑIZ Rep #:[id number] : 1965 57 From: Perez Dave DO PCP: Dr. Sergei Henley MD Status: ADM IN Location: [place] [address] HPI History of Present Illness Chief Complaint: [...] in his chest. Slight shortness of breath. 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 Will obtain EKG uponarrival back to the room as well as basic labs and troponin. Patient will be evaluated by stroke neurologist via robot from [facility]. Patient was evaluated by [facility] neurology. When he arrived back from CT [...] % (Auto) 48.0 Lymph % (Auto) 32.1 Posey % (Auto) 12.1 H Eos % (Auto) [...] Chest pain Disposition Disposition: Acute Care [facility] Discharge Date/Time: 04/23/23 23:43 What to do if you have Problems For any increased pain, shortness of breath, bleeding, nausea or vomiting, chestpain, or any unexpected problems, contact your Primary Care Provider. Call [facility] ([phone]) or report to the closest Emergency Room. Call 911 if necessary. 04/24/23 0000 <Electronically signed by Perez Dave DO> Cosigner Signature (if applicable): CC: Dr. Sergei Henley MD ~ Signed [facility] Work Phone: 1(699) 521-952011-01-2010 Evaluation note* Diagnosis Onset Date Resolution Status Atherosclerotic heart diseas e of makah coronary artery without angina pectoris chronic Essential hypertension chron ic HLD (hyperlipidemia) chronic Presence of stent in coronary artery June, chronic [facility] Work Phone: 1(888) 601-669611-01-2010 Evaluation note* Diagnosis Onset Date Resolution Status Atherosclerotic heart diseas e of makah coronary artery without angina pectoris chronic Essential hypertension chron ic HLD (hyperlipidemia) chronic Presence of stent in coronary artery June, chronic Chest pain, atypical acute [facility] Work Phone: Discharge summary Author Rommel Youssef [facility] June 15, 2023 10:31am Note Date/Time June 15, 2023 1 0:26am [facility] Medical Records Department [address] [place] [address] Discharge Summary 06/15/23 [facility] MR#: [id number] Acct: [id number] Name: JOVANY MUÑIZ Rep #:[id number] : 1965 57 From: Rommel Youssef DO PCP: Dr. Sergei Henley MD Status: ADM FELICITA Location: [address] Providers Date of Admission: 06/14/23 Primary [...] Dose Aspirin) 81 mg PO QDAY [facility] 08/06/17 buspirone 5 mg tablet 5 [...] subcutaneous pen injector (Repatha SureClick) 140 mg [id number] #2 mL 06/13/23 nitroglycerin 0.4 mg sublingual [...] 83.8 H, Lymph % (Auto) 10.2 L, Posey % (Auto) 2.7, Eos % (Auto) 2.5, [...] Clarity Clear, Urine pH 7.0, Ur Specific [place] 1.010, Urine Protein Negative, Urine Glucose (UA) [...] (Auto) 81.6 H, Lymph % (Auto)10.5 L, Posey % (Auto) 4.6, Eos % (Auto) 2.6, [...] Discharge Diet: Low fat / Low cholesterol ([place] diet, advance as tolerated.) Meaningful Use Info [...] months would recommend following up with a tire molder. Discharge Orders/Prescriptions Prescriptions: New amoxicillin-pot clavulanate 875-125 [...] Qty: 25 3RF Referrals / Follow Up: [facility] [Provider Group] - Within 3 Months Sergei Henley MD [Primary Care Provider] - Within 2 Weeks Disposition Disposition (needs filled in before D/C Order can be placed): Home, Self Care Charges/Coding Visit Charges Inpatient E&M: 82899 Disch Hosp >30min 06/15/23 1031 <Electronically signed by Rommel Youssef DO> Cosigner Signature (if applicable): CC: Dr. Sergei Henley MD; Dr. Rommel Youssef, DO~ Signed [facility] Work Phone: Evaluation noteNo assessment information available [facility] Work Phone: Evaluation note* Diagnosis Onset Date Resolution Status Brain TIA acute Chest pain acute History of coronary artery disease acute [facility] Work Phone: Evaluation note* Diagnosis Onset Date Resolution Status Brain TIA acute Chest pain acute History of coronary artery disease acute NSTEMI (non-ST elevated myocardial infarction) acute Atherosclerotic heart diseas e of makah coronary artery without angina pectoris chronic Essential hypertension chron ic HLD (hyperlipidemia) [facility] Work Phone: Evaluation note* Diagnosis Onset Date Resolution Status Essential hypertension chron ic HLD (hyperlipidemia) chronic Brain TIA resolved Chest pain resolved NSTEMI (non-ST elevated myoc ardial infarction) resolved Essential hypertension chron ic HLD (hyperlipidemia) chronic Presence of stent in coronary artery April 25, 023 chronic [facility] Work Phone: Evaluation note* Diagnosis Onset [...] in coronary artery April 25, 023 chronic [facility] Work Phone: Evaluation note* Diagnosis Onset Date Resolution Status HLD (hyperlipidemia) chronic Brain TIA resolved Chest pain resolved NSTEMI (non-ST elevated myocardial infarction) resolved HLD (hyperlipidemia) chronic Sigmoid diverticulitis acute Intractable abdominal pain r esolved [facility] Work Phone: Evaluation note* Diagnosis Onset [...] implant and graft April 25, 2023 chronic [facility] Work Phone: History and physical note Author Meliza Ramírez [facility] June 14, 2023 7:41pm Note Date/Time June 14, 2023 7 :41pm [facility] Medical Records Department [address] [place] [address] H&P Exam - Hospitalist 06/14/231930 MR#: [id number] Acct: [id number] Name: JOVNAY MUÑIZ Rep #:[id number] : 1965 57 From: Meliza Ramírez MD PCP: Dr. Sergei Henley MD Status: REG ER Location: ED HPI - General General Date of Admission: 06/14/23 Date of Service: 06/14/23 Chief Complaint: Abdominal pain HPI Narrative JOVANY MUÑIZ, is a 57-year-old male history of hypertension, coronary artery disease with stent placement 2 months ago who presented to [facility] 06/14/2023 with abdominal pain x1 day. [...] denied any withdrawal symptoms at that time. 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 (04/25/23) Essential hypertension History of coronary artery disease HLD (hyperlipidemia) Old myocardial infarction Presence of stent in coronary artery (04/25/23) Home Medications aspirin 81 mg tablet,delayed release (Adult Low Dose Aspirin) 81 mg PO QDAY [facility] 08/06/17 [History Last Taken 10/30/21] buspirone 5 [...] subcutaneous pen injector (Repatha SureClick) 140 mg [id number] #2 mL 06/13/23 [Rx Last Taken Unknown] [...] 83.8 H, Lymph % (Auto) 10.2 L, Posey % (Auto) 2.7, Eos % (Auto) 2.5, [...] Clarity Clear, Urine pH 7.0, Ur Specific [place] 1.010, Urine Protein Negative, Urine Glucose (UA) [...] documentation, 56minutes Charges/Coding Visit Charges Inpatient E&M: 13366 Init Hosp L2 06/14/231940 <Electronically signed by Meliza Ramírez MD> Cosigner Signature (if applicable): CC: Dr. Sergei Henley MD; Dr. Meliza Ramírez MD~ Signed [facility] Work Phone: History and physical note Author Olegario Segal [facility] October 02, 2023 7:28am Note Date/Time October 02, 2023 7:28am [facility] Medical Records Department [address] [place] [address] History & Physical Exam 10/02/23 0725 MR#: [id number] Acct: [id number] Name: JOVANY MUÑIZ Rep #:[id number] : 1965 58 From: Olegario Blackburn PCP: Dr. Sergei Henley MD Status: [place] [facility] [place] [address] History and Physical Date of Admission: 10/02/23 Date of Service: 07/17/23 MR#: [id number] Acct: [id number] Name: JOVANY MUÑIZ Rep #: [id number] : 1965 Provider: Dr. Olegario Segal MD Age/Sex: 57/M Location: [facility] Status: Signed Intake Vital Signs 06/14/2321:15 07/17/2308:17 Height 6 ft 6 ft Weight: 213 lb 2 oz BMI 28.9 BP 125/88 H Blood Pressure Location Rt brachial Position Sitting Respiration 18 Pulse 78 Pulse Source Monitor Temp 97.2 F L Temp Source Temporal Pulse Oximetry (%) 98 Oxygen Delivery Method room air Intake Visit Reasons: DIVERTICULITIS Chief Complaint: Diverticulitis Disc Inspector Required: No Is patient in pain?: No Allergies No Known Allergies Allergy (Verified 07/17/23 08:20) Medications aspirin 81 mg tablet,delayed release (Adult Low Dose Aspirin) 81 mg PO QDAY [facility] 08/06/17 [History Confirmed 07/17/23] coenzyme Q10 100 [...] subcutaneous pen injector (Repatha SureClick) 140 mg shihbsP1M #2 mL 06/13/23 [Rx Confirmed 07/17/23] nitroglycerin [...] Olegario Segal MD) 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 Olegario Segal MD~ Signed [facility] Work Phone: Hospital Discharge instructions Additional Instructions All your labs, EKG, chest x-ray were unremarkable. Follow-up with your doctor. Return if you are feeling worse. Nothing bad we can find today.[facility] Work Phone: Hospital Discharge instructions Additional Instructions Benadryl as needed for itching. Avoid shrimp or shellfish seems that you have an allergy to it. Follow-up with your doctor as needed.[facility] Work Phone: Progress note Author Mitchell Dubois [facility] Note Date/Time May 05, 2025 9:39am [facility] [address] [place] [address] OFFICE VISIT Date of Service: 05/05/25 MR#: [id number] Acct: [id number] Name: JOVANY MUÑIZ Rep #: [id number] : 1965 Provider: EUGENIA Dubois Age/Sex: 59/M Location: [facility] Status: Signed HPI HPI History of Present Illness Details: This is a 59-year-old white male who presents today for outpatient cardiovascular follow-up regarding a history of underlying CAD, PCI, hyperlipidemia, and hypertension. He was noted to have inferior myocardial infarction with stenting to his obtuse marginal, proximal to mid circumflex, proximal to mid LAD in 2009. 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 Follow Up: 12-15 Months (VISUAL STYLIST) Coding Level of Care Code Off vis,est,level [...] 58 05/05/25 1011 <Electronically signed by Mitchell BLELO> Date _ Mitchell Dubois NP, NP-C Cosigner Signature: Date (if applicable) CC: ~ [facility] Work Phone: Reason for referral (narrative)No reason for referral [facility]: Chief Complaint and Reason for Visit Chief Complaint 1 y fu CHEST PAIN Reason for Visit Atherosclerotic hear t disease of makah coronary artery without angina pectoris Essential hypertension HLD (hyperlipidemia) Presence of stent in coronary artery Chief Complaint 1 y fu CHEST PAIN CHEST PAIN CHEST PAIN Reason for Visit Atherosclerotic hear t disease of makah coronary artery without angina pectoris Essential hypertension [...] elevated myocardial infarction) 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 Essential hypertension HLD (hyperlipidemia) Chief Complaint CHEST PAIN, TIA CHEST PAIN, TIA CHEST PAIN, TIA CHEST PAIN, TIA CHEST PAIN, TIA S/P [facility] 15 Reason for Visit Essential hypertensi on HLD (hyperlipidemia) Brain TIA Chest pain NSTEMI (non-ST elevated myocardial infarction) Essential hypertension HLD (hyperlipidemia) Presence of stent in coronary artery Chief Complaint CHEST PAIN, TIA CHEST PAIN, TIA CHEST PAIN, TIA CHEST PAIN, TIA CHEST PAIN, TIA S/P [facility] 15 DIVERTICULITIS Reason for Visit Essential hypertensi on HLD (hyperlipidemia) Brain TIA Chest pain NSTEMI (non-ST elevated myocardial infarction) Essential hypertension HLD (hyperlipidemia) Presence of stent in coronary artery Intractable abdominal pain Sigmoid diverticulitis Essential hypertension Presence of stent in coronary artery Chief Complaint CHEST PAIN, TIA CHEST PAIN, TIA CHEST PAIN, TIA CHEST PAIN, TIA CHEST PAIN, TIA S/P [facility] 15 DIVERTICULITIS DIVERTICULITIS Reason for Visit Essential hypertensi on HLD (hyperlipidemia) Brain TIA Chest pain NSTEMI (non-ST elevated myocardial infarction) Essential hypertension HLD (hyperlipidemia) Presence of stent in coronary artery Intractable abdominal pain Sigmoid diverticulitis Essential hypertension Presence of stent in coronary artery Chief Complaint CHEST PAIN, TIA CHEST PAIN, TIA CHEST PAIN, TIA CHEST PAIN, TIA CHEST PAIN, TIA S/P [facility] 15 DIVERTICULITIS DIVERTICULITIS EORDER Reason for Visit HLD (hyperlipidemia) Brain TIA Chest pain NSTEMI (non-ST elevated myocardial infarction) HLD (hyperlipidemia) Sigmoid diverticulitis Intractable abdominal pain Chief Complaint S/P [facility] 0915 DIVERTICULITIS DIVERTICULITIS EORDER DIVERTICULITIS 3 [...] No October 30, 2021 7:09pm Power of Wedger Machine No October 30 7:09pm Advance Directive Response Recorded Date/ Time Living Will Yes April 23, 2023 9:57pm Power of Wedger Machine Yes April 9:57pm Name of Medical Power of Wedger Machine Jesus Muñiz April 23, 2023 9:57pm Advance Directive Response Recorded Date/ Time Name of Medical Power of Wedger Machine Ellie Muñiz April 24, 2023 12:15am Living Will Yes April 24, 2023 12:15am Power of Wedger Machine Yes April 12:15am Advance Directive Response Recorded Date/ Time Living Will No June 14 5:16pm Power of Wedger Machine No June 14, 2023 5:16pm Name of Medical Power of Wedger Machine Ellie Muñiz April 24, 2023 12:15am Advance Directive Response Recorded Date/ Time Name of Medical Power of Wedger Machine Ellie Muñiz June 14, 2023 8:15pm Living Will Yes June 14 8:15pm Power of Wedger Machine Yes June 14, 2023 8:15pm Name of Medical Power of Wedger Machine Ellie Muñiz April 23, 2023 11:15pm Advance Directive Response Recorded Date/ Time Name of Medical Power of Wedger Machine Ellie Muñiz June 14, 2023 8:15pm Living Will Yes June 14 8:15pm Power of Wedger Machine Yes June 14, 2023 8:15pm Advance Directive Response Recorded Date/ Time Name of Medical Power of Wedger Machine Ellie Muñiz June 14, 2023 8:15pm Name of Medical Power of Wedger Machine September 25, 2023 3:03pm Living Will Yes September 25, 024 3:03pm Power of Wedger Machine Yes September 25, 2023 3:03pm Advance Directive Response Recorded Date/ Time Living Will Yes April 24, 2023 12:15am Do you have a Healthcare Pow er of Wedger Machine? Yes April 24, 2023 12:15am Living Will Yes September 03 1:26am Do you have a Healthcare Pow er of Wedger Machine? Yes September 03, 2024 1:26am Name of Medical Power of Wedger Machine ELLIE MUÑIZ September 03, 2024 1:26am Advance Directive Response Recorded Date/ Time Do you have a Healthcare Power of Wedger Machine? Yes January 22, 2025 2:10pm Name of Medical Power of Wedger Machine Ellie Muñiz January 22, 2025 2:10pm Advance Directive Response Recorded Date/ Time Do you have a Healthcare Power of Wedger Machine? Yes January 22, 2025 9:41pm Do you have a Healthcare Power of Wedger Machine? Yes January 22, 2025 2:10pm Name of Medical Power of Wedger Machine Ellie Muñiz January 22, 2025 2:10pm Summary [...] Status: Active Member Role Status Dates Dr. Seregi Henley MD Primary Care Provider Activ e [...] Provider, Refe rring Provider Active Mitchell Dubois AUTO PAINTER, AUTO PAINTER-C Attending Provider Active Team Status: Inactive Member [...] Primary Care Provider Activ e Mitchell Dubois AUTO PAINTER, AUTO PAINTER-C Attending Provider, Referring Pro vider Active Team [...] 2024 End: November 03, 2024 Mitchell Dubois AUTO PAINTER, AUTO PAINTER-C Attending Provider Active S tart: November 03, 2024 End: November 03, 2024 Mitchell Dubois AUTO PAINTER, AUTO PAINTER-C Referring Provider Active S tart: November 03, 2024 End: November 03, 2024 Team Status: Active Member Role Status Dates Dr. Eduard Henley MD Primary Care Provider Acti ve Start: November 03, 2024 Mitchell Dubois AUTO PAINTER, AUTO PAINTER-C Referring Provider Active S tart: November 03, 2024 Mitchell Dubois AUTO PAINTER, AUTO PAINTER-C Other Provider Active Start : November 03, [...] 2025 End: January 22, 2025 Dr. Robert Mercre MD Emergency Departmen t Physician Active Start: [...] 2025 End: May 05, 2025 Mitchell Dubois AUTO PAINTER, AUTO PAINTER-C Attending physician Active Start: May 05, 2025 End: May 05, 2025 (unrecognized sect ion and content) No Status Records Found INFORMATION SOURCE (unrecogn ized section and content) DATE CREATED AUTHOR 05/06/2025 [facility] FOR RECORDS PERTAINING TO PATIENTS WHO [...] BE BASED ON THE PRIMARY CLINICAL RECORDS. [facility] [employer]. provides no warranty or guarantee of the accuracy or completeness of information in this document.
[2025-06-10] MEDS: 0.9% Normal Saline (1000mL) 1,000 ML 100 ML IV (00:24)
[2025-06-10 00:33] LABS: Magnesium 2.0 mg/dL (1.5-2.2)
[2025-06-10] MEDS: Pantoprazole Sodium 40 MG in 0.9% Normal Saline (100mL MB+) 100 ML 330 MG IV ×2 (00:52→11:02)
[2025-06-10] MEDS: 0.9% Normal Saline (1000mL) 1,000 ML 999 ML IV (00:53)
[2025-06-10] MEDS: 0.9% Saline Lock 10 ML Syringe IV (00:53)
[2025-06-10 04:48] VITALS: BP 147/95; PULSE 80; RESP 20; TEMP 36.6; O2SAT 100
[2025-06-10 04:55] VITALS: BMI 26.3
[2025-06-10 05:07] LABS: Hematocrit 37.2 % (40-54); Hemoglobin 12.2 g/dL (13.0-16.5); Immature Granulocytes Count 0.040 X10^3/uL (0.0-0.0); Mean Corp Hgb Conc 32.8 g/dL (32-36); Mean Corpuscular Volume 99.5 fL (80-94); Mean Platelet Vol. 9.8 fl (6.2-12.0); NRBC Flagged by Analyzer 0 % (0-5); Platelet Count 207 K/mm3 (150-450); RBC Distribution Width CV 13.1 % (11.6-14.6); RBC Distribution Width SD 47.8 fl (35.1-43.9); Red Blood Count 3.74 M/mm3 (4.6-6.2); White Blood Count 6.1 K/mm3 (4.4-11.0)
[2025-06-10 06:24] LABS: AST(SGOT) 19 U/L (<=37); Alanine Aminotransfer ALT/SGPT 16 U/L (<=46); Albumin, Serum 3.3 g/dL (3.4-4.8); Alkaline Phosphatase 57 U/L (40-129); Anion Gap 8 (5-15); BUN 11 mg/dL (4-19); BUN/Creat Ratio 13.1 RATIO (10-20); Calcium,Total 8.1 mg/dL (7.6-11.0); Carbon Dioxide 20.4 mmol/L (21.0-32.0); Chloride 110 mmol/L (98-108); Estimated Creatinine Clearance 99.01 ml/min (50-250); Globulin 2.8 g/dL (2.2-4.2); Glucose 106 mg/dL (70-99); Potassium 4.3 mmol/L (3.3-5.1)
[2025-06-10] MEDS: Piperacil/Tazobactam 3.375 GM in 0.9% Normal Saline (50mL MB+) 50 ML IV (06:35)
[2025-06-10 08:40] VITALS: BP 162/88; PULSE 73; RESP 16; TEMP 36.5; O2SAT 100
[2025-06-10] MEDS: Aspirin E.C. 81 MG Tablet PO (08:46)
--- NOTE | 2025-06-10 09:39 | DCINST_ITS ---
Discharge Instructions DC O2, CPAP, BIPAP needs Home O2 Discharge instructions: No Dressing / Incision Discharge Activity: Return to Normal Activity Dressing / Incision Call your doctor if you observe: Fever of 101 or Higher, Shortness of breath, Dizziness, Fainting spells, Swelling in the ankles, Chest pain and Increased palpitations (irregular heartbeat) Follow Up Care Test Results: Test results from this visit will be discussed in further detail at your follow- up appointment, if applicable. Discharge Plan Admission Admit Date/Time: 06/09/25 23:33 Attending Provider: Kaden Auguste Primary Care Provider: Eduard Henley Consulting Providers: Riddhi Azul Instructions Patient Instructions: Diverticulitis Dc Discharge Orders/Prescriptions Prescriptions: New amoxicillin-pot clavulanate 875-125 mg tablet 1 tab PO BID Qty: 20 0RF Continued aspirin [Adult Low Dose Aspirin] 81 mg tablet,delayed release (DR/EC) 81 mg PO QDAY cetirizine 10 mg tablet 10 mg PO PRN epinephrine 0.3 mg/0.3 mL auto-injector 0.3 mg IM PRN Leqvio 284 mg/1.5 mL syringe 284 mg subcut .COMPLEX Rx Instructions: 284 mg subcutaneously; x1 first month 06/03/25 then x1in 3 months 09/09/25 then every six months after that Metamucil Plus Calcium 1-60 gram-mg capsule 2 cap PO QHS Rx Instructions: administer with large glass of water essential 1 ea PO DAILY Patient Comments: algal omega 3 oil 900mg vitamin d3 50mcg vitamin b12 400mcg epa 135mg dha 270mg acetaminophen 500 mg capsule 1,000 mg PO Q8H PRN (Reason: fever or pain) nitroglycerin [Nitrostat] 0.4 mg tablet, sublingual 0.4 mg SUBLINGUAL Q5-15M PRN (Reason: CHEST PAIN) Qty: 25 3RF Held losartan 100 mg tablet 100 mg PO DAILY Hold Instructions: Resume on 06/13/25. Referrals / Follow Up: Eduard Henley MD [Primary Care Provider, Family Practice] - Within 1 Week Disposition Disposition (needs filled in before D/C Order can be placed): Home, Self Care
[2025-06-10 10:31] VITALS: O2SAT 97
--- NOTE | 2025-06-10 10:54 | PCM.DC.SUM ---
Providers Date of Admission: 06/09/25 Primary Care Physician: Dr. Eduard Henley MD Reason For Visit: SYNCOPE, DIVERTICULITIS Diagnosis Discharge Diagnosis (1) Diverticulitis: Status: Acute Code(s): K57.92 - Diverticulitis of intestine, part unspecified, without perforation or abscess without bleeding (2) Syncope and collapse: Status: Acute Code(s): R55 - Syncope and collapse Medications at Discharge Home Medications aspirin 81 mg tablet,delayed release (Adult Low Dose Aspirin) 81 mg PO QDAY [facility] 08/06/17 cetirizine 10 mg tablet 10 mg PO PRN allergy symptoms 05/20/23 nitroglycerin 0.4 mg sublingual tablet (Nitrostat) 0.4 mg sublingual Q5-15M PRN CHEST PAIN #25 tabs 06/13/23 acetaminophen 500 mg capsule 1,000 mg PO Q8H PRN fever or pain 06/09/25 epinephrine 0.3 mg/0.3 mL injection, auto-injector 0.3 mg IM PRN allergy to scallops 06/09/25 essential 1 ea PO DAILY supplement 06/09/25 inclisiran 284 mg/1.5 mL subcutaneous syringe (Leqvio) 284 mg subcut .COMPLEX cholesterol 06/09/25 losartan 100 mg tablet 100 mg PO DAILY blood pressure 06/09/25 Held on 06/10/25. Instructions: Resume on 06/13/25. psyllium husk-calcium 1 gram-60 mg capsule (Metamucil Plus Calcium) 2 cap PO QHS constipation 06/09/25 amoxicillin 875 mg-potassium clavulanate 125 mg tablet 1 tab PO BID #20 tabs 06/10/25 Hospital Course Operations None Procedures 2-D Echocardiogram Summary of Care Provided Minutes Spent on Discharge: 33 Hospital Course: Per HPI: The patient is a 59 y/o M w/ PMHx: CKD stage II per GFR trending, CAD s/p PCI, HTN, HLD, Former tobacco use, Hx prior diverticulitis last ~2-3 years prior who presents to the [facility] ED on 06/09/25 with history of increased lack of appetite, fatigue and malaise over the last approximate week with onset over the last 2 to 3 days mild left lower quadrant discomfort and loose stools as well as nausea but no emesis nor any fevers or chills and on day of presentation reported to have been using the bathroom with recurrent bowel movements with syncopal events twice in that setting and occurring once again when attempting to be up and moving with no head trauma but lightheadedness/dizziness prompting eventual ED evaluation to be cautious. Workup in the ED included T97.6, heart rate 80, BP 100/73, respiratory rate 16, 96% on room air, positive orthostatics, CBC with WC 5.0, Heenan 13, platelet 234 without marked shift, CMP with carbon oxide 19.5, anion gap 16, BUN/creatinine 14/0.98, GFR 87, glucose 141, hepatic profile unremarkable, troponin less than 6 x 2, urinalysis unremarkable, chest x-ray with no acute cardiopulmonary findings, EKG with sinus rhythm with no acute evidence of ischemia, CT abdomen and pelvis with moderate distal colonic diverticulosis, probable mild acute segmental colitis versus uncomplicated diverticulitis of the sigmoid colon, mild undulating aneurysmal dilatation of the infrarenal abdominal aorta. In the ED patient ministered 1 L normal saline, ciprofloxacin 500 mg p.o. x 1, Flagyl 500 mg p.o. x 1, morphine 4 mg IV x 1, Zofran 4 mg IV x 1. Hospital Course: 1. Vasovagal syncope secondary to dehydration from mild colitis versus diverticulitis?59-year-old male presented to the hospital with increased fatigue as well as loss of appetite that it started approximately a week ago as well as an episode of syncope/near syncope. He had orthostatic vital signs which demonstrated that he was orthostatic consistent with dehydration from his lack of p.o. intake and diarrhea from his colitis/diverticulitis. He was tested for C. difficile which was negative and he has had significant improvement on Zosyn and IV fluids. I did advance his diet and if he tolerates he is able to go home. I discussed with him the plan for discharge he expressed understanding of the risk and benefits of going home and would like to go home today. Will continue with Augmentin for 10 more days on discharge. He does have an echo pending however given the fact that this is likely dehydration and vasovagal I do not think that this can add much and therefore I do think it is safe for him to go home prior to the results coming back. 2. Coronary artery disease status post stent, essential hypertension, hyperlipidemia are chronic medical conditions which complicate his care. His home medications were continued where appropriate. He does have a mildly undulating aneurysmal dilatation of the infrarenal aorta, recommend outpatient monitoring and evaluation. Physical Exam Narrative General: Alert, Oriented x3, Cooperative, No apparent distress HEENT: Atraumatic, PERRLA, EOMI, Normocephalic Oral: Moist Mucosa Neck: Supple, No JVD Lungs: Diminished, Normal air movement, No rhonchi, No wheeze, No rales Cardiovascular: Regular rate, Regular Rhythm, Normal S1, Normal S2, No murmurs Abdomen: Soft, Non Tender, Non-Distended, No Hepato-splenomegaly Extremities: No edema, Capillary Refill Less than 3 Seconds Skin: No rashes, No breakdown Musculoskeletal: No Tenderness to Palpation of Joints or Extremities Neurological: No focal neurological deficits, moves all extremities Psych/Mental Status: Normal Affect, Appropriate Weight / BMI Weight Weight: 194 lb 3.636 oz Body Mass Index (BMI) 26.3 ABG / Lab / Microbiology Data 06/10/25 04:15 06/10/25 04:15 Laboratory: Laboratory Results - last 24 hr 06/09/25 19:40: WBC 5.0, RBC 3.92 L, Hgb 13.0, Hct 38.7 L, MCV 98.7 H, MCH 33.2 H, MCHC 33.6, RDW Std Deviation 46.5 H, RDW Coeff of Leticia 12.9, Plt Count 234, MPV 9.9, Immature Gran % (Auto) 0.800, Neut % (Auto) 47.1, Lymph % (Auto) 35.7, Beckham % (Auto) 11.6 H, Eos % (Auto) 4.0, Baso % (Auto) 0.8, Absolute Neuts (auto) 2.4, Absolute Lymphs (auto) 1.79, Nucleated RBC % 0, Sodium 135, Potassium 3.4, Chloride 100, Carbon Dioxide 19.5 L, Anion Gap 16 H, BUN 14, Creatinine 0.98, Estim Creat Clear Calc 86.88, Est GFR (MDRD) Non-Af 87, BUN/Creatinine Ratio 14.5, Glucose 141 H, Calcium 9.0, Total Bilirubin 0.28, Direct Bilirubin 0.13, AST 26, ALT 19, Alkaline Phosphatase 63, Troponin T High Sens < 6, Total Protein 7.0, Albumin 3.7, Globulin 3.3 06/09/25 21:04: Urine Color Straw, Urine Clarity Clear, Urine pH 6.0, Ur Specific [place] 1.010, Urine Protein 15 H, Urine Glucose (UA) Normal, Urine Ketones Negative, Urine Occult Blood Negative, Urine Nitrite Negative, Urine Bilirubin Negative, Urine Urobilinogen Normal, Ur Leukocyte Esterase Negative, Urine RBC 0 SEEN, Urine WBC 0-5 SEEN, Ur Squamous Epith Cells 0-5 SEEN, Urine Bacteria RARE, Hyaline Casts 0-5 SEEN, Urine Mucus 0 SEEN 06/09/25 21:45: Troponin T Hi Sens 2 Hr < 6 06/09/25 23:42: Magnesium 2.0, Troponin T Hi Sens 4Hr < 6 06/10/25 04:15: WBC 6.1, RBC 3.74 L, Hgb 12.2 L, Hct 37.2 L, MCV 99.5 H, MCH 32.6 H, MCHC 32.8, RDW Std Deviation 47.8 H, RDW Coeff of Leticia 13.1, Plt Count 207, MPV 9.8, Immature Gran % (Auto) 0.700, Neut % (Auto) 65.0, Lymph % (Auto) 20.5, Beckham % (Auto) 9.7, Eos % (Auto) 3.6, Baso % (Auto) 0.5, Absolute Neuts (auto) 4.0, Absolute Lymphs (auto) 1.25, Nucleated RBC % 0, Sodium 138, Potassium 4.3, Chloride 110 H, Carbon Dioxide 20.4 L, Anion Gap 8, BUN 11, Creatinine 0.86, Estim Creat Clear Calc 99.01, Est GFR (MDRD) Non-Af 99, BUN/Creatinine Ratio 13.1, Glucose 106 H, Calcium 8.1, Total Bilirubin 0.25, AST 19, ALT 16, Alkaline Phosphatase 57, Total Protein 6.2, Albumin 3.3 L, Globulin 2.8, Albumin/Globulin Ratio 1.2 Microbiology: Microbiology 06/10/25 06:00 Stool Enteric Bacteriology - Final 06/10/25 06:00 Stool Clostridioides difficile (PCR) - Final Radiography Diagnostic Testing: Radiology Impression Abdomen/Pelvis CT 06/09/25 20:10 IMPRESSION: 1. Moderate distal colonic diverticulosis, with probable mild acute segmental colitis versus uncomplicated diverticulitis of the sigmoid colon. 2. Mild undulating aneurysmal dilatation of the infrarenal abdominal aorta. Reading Location: [id number] Chest X-Ray 06/09/25 20:37 IMPRESSION: No Acute Findings. [facility] Instructions Call your doctor if you observe: Fever of 101 or Higher, Shortness of breath, Dizziness, Fainting spells, Swelling in the ankles, Chest pain and Increased palpitations (irregular heartbeat) DC O2, CPAP, BIPAP Needs Home O2 Discharge instructions: No Meaningful Use Info Meaningful Use Meaningful Use Diagnoses (Choose all that apply): None applicable Discharge Plan Admission Admit Date/Time: 06/09/25 23:33 Attending Provider: Kaden Auguste Primary Care Provider: Eduard Henley Consulting Providers: Riddhi Azul Instructions Patient Instructions: Diverticulitis Dc Discharge Orders/Prescriptions Prescriptions: New amoxicillin-pot clavulanate 875-125 mg tablet 1 tab PO BID Qty: 20 0RF Continued aspirin [Adult Low Dose Aspirin] 81 mg tablet,delayed release (DR/EC) 81 mg PO QDAY cetirizine 10 mg tablet 10 mg PO PRN epinephrine 0.3 mg/0.3 mL auto-injector 0.3 mg IM PRN Leqvio 284 mg/1.5 mL syringe 284 mg subcut .COMPLEX Rx Instructions: 284 mg subcutaneously; x1 first month 06/03/25 then x1in 3 months 09/09/25 then every six months after that Metamucil Plus Calcium 1-60 gram-mg capsule 2 cap PO QHS Rx Instructions: administer with large glass of water essential 1 ea PO DAILY Patient Comments: algal omega 3 oil 900mg vitamin d3 50mcg vitamin b12 400mcg epa 135mg dha 270mg acetaminophen 500 mg capsule 1,000 mg PO Q8H PRN (Reason: fever or pain) nitroglycerin [Nitrostat] 0.4 mg tablet, sublingual 0.4 mg SUBLINGUAL Q5-15M PRN (Reason: CHEST PAIN) Qty: 25 3RF Held losartan 100 mg tablet 100 mg PO DAILY Hold Instructions: Resume on 06/13/25. Referrals / Follow Up: Eduard Henley MD [Primary Care Provider, Family Practice] - Within 1 Week Disposition Disposition (needs filled in before D/C Order can be placed): Home, Self Care Charges/Coding Visit Charges Inpatient E&M: 67442 Disch Hosp >30min
[2025-06-10 11:03] VITALS: BP 143/99; BP 150/97; PULSE 79; PULSE 87
--- NOTE | 2025-06-10 11:41 | CASEMGMT ---
Patient has order for discharge. RN CM in to discuss needs at discharge, at bedside. Patient denies needs or help at discharge. Patient had no further questions or concerns.
--- NOTE | 2025-06-10 11:50 | PHA.DC.MC.R ---
Pharmacy [facility] Counsel[facility] Pharmacy Service has performed discharge medication reconciliation and counseling for this patient. The patient's discharge medication list was reviewed for discrepancies and discrepancies were resolved. The patient was counseled on the following discharge medications and changes in medications for homegoing were reviewed. The Reason for Use, instructions for use, and potential side effects were reviewed for all new medications. The patient's questions regarding all of their medications were answered. 1. Amoxicillin/clavulanate 875/125 mg PO BID x 10 days The patient was able to verbally demonstrate an understanding of their discharge medications. Medications at Discharge Home Medications aspirin 81 mg tablet,delayed release (Adult Low Dose Aspirin) 81 mg PO QDAY [facility] 08/06/17 cetirizine 10 mg tablet 10 mg PO PRN allergy symptoms 05/20/23 nitroglycerin 0.4 mg sublingual tablet (Nitrostat) 0.4 mg sublingual Q5-15M PRN CHEST PAIN #25 tabs 06/13/23 acetaminophen 500 mg capsule 1,000 mg PO Q8H PRN fever or pain 06/09/25 epinephrine 0.3 mg/0.3 mL injection, auto-injector 0.3 mg IM PRN allergy to scallops 06/09/25 essential 1 ea PO DAILY supplement 06/09/25 inclisiran 284 mg/1.5 mL subcutaneous syringe (Leqvio) 284 mg subcut .COMPLEX cholesterol 06/09/25 losartan 100 mg tablet 100 mg PO DAILY blood pressure 06/09/25 Held on 06/10/25. Instructions: Resume on 06/13/25. psyllium husk-calcium 1 gram-60 mg capsule (Metamucil Plus Calcium) 2 cap PO QHS constipation 06/09/25 amoxicillin 875 mg-potassium clavulanate 125 mg tablet 1 tab PO BID #20 tabs 06/10/25
--- NOTE | 2025-06-10 15:30 | CHAPLAIN ---
Type of Pastoral Visit ___ Initial Visit ___ Follow-up Visit ___ On-call Visit ___ General Patient Visit ___ Spiritual Assessment ___ Family Conference ___ Bereavement ___ Rapid Response ___ Code Blue ___ Other (describe below) Pastoral Care Referral From ___ Patient ___ Family ___ Nurse ___ Physician ___ Engineering Program Analyst ___ Dot Net Architect ___ Other (describe below) Sacrament/Intervention ___ Active listening ___ Anointing ___ Oriental Orthodox ___ Bereavement ___ Communion ___ Mendy exploration ___ ___ Life review ___ Prayer ___ Reconciliation ___ Sacrament of Sick ___ Supportive presence ___ Wedding ___ Other (describe below) Pastoral Comments patient had been discharged before being seen by this rug measurer
== END 2025-06-10 13:47 | disposition home or self-care (01) ==
LOC: ED 23:22 → PCU 06-10 00:10
PROVIDERS: Admitting Provider Family Medicine; Emergency Provider Emergency Medicine; PCP Family Medicine; Visit Provider Family Medicine
DX: K57.92 Diverticulitis of intestine, part unspecified, without perforation or abscess without bleeding (principal); R55 Syncope and collapse; E86.0 Dehydration; I25.10 Atherosclerotic heart disease of native coronary artery without angina pectoris; R63.0 Anorexia; I25.2 Old myocardial infarction; E78.00 Pure hypercholesterolemia, unspecified; Z87.891 Personal history of nicotine dependence; R42 Dizziness and giddiness; N18.2 Chronic kidney disease, stage 2 (mild); Z95.5 Presence of coronary angioplasty implant and graft; I12.9 Hypertensive chronic kidney disease with stage 1 through stage 4 chronic kidney disease, or unspecified chronic kidney disease; I77.811 Abdominal aortic ectasia; Z87.19 Personal history of other diseases of the digestive system
CPT/HCPCS: 36415; 71045; 74177; 80048; 80053; 80076; 81001; 83735; 84484; 85025; 87493; 87506; 93005; 93306; 94668; 96361; 96365; 96366; 96367; 96372; 96375; 99221; 99285; Q9967; A4216; G0378; J2405

== ENCOUNTER → 2025-06-21 | Outpatient (CLI) | payer OTHER, SELFPAY ==
--- OUTSIDE RECORDS SUMMARY | 2025-06-21 05:58 | XMS RPT_ITS | CCD ---
Author Organization [facility] Care Team Providers Care Doll Maker Name Role Phone DeFinis, Harumi Y Unavailable [...] Provider Dr. Sergei Henley Referring Provider Roof STRIPPER SHOVEL OPERATOR, STRIPPER SHOVEL OPERATOR-C Mitchell Harvey Attending Provider Dr. Sergei Henley Primary Care Provider Dr. Perez Dave Emergency Provider Dr. Ar Torres Admit Provider Dr. Ar Torres Attending Provider Dr. Ar Torres Other Provider Dr. Jose Lockwood Other Provider Dr. Rommel Youssef Other Provider Dr. Rommel Youssef Attending Provider Dr. Jose Lockwood Attending Provider [phone] Sergei Henley Referring Provider Sherly STRIPPER SHOVEL OPERATOR, STRIPPER SHOVEL OPERATOR-C Mitchell Harvey Attending Provider MD Donta Swenson Emergency Provider Dr. Meliza Ramírez Admit Provider Dr. Meliza Ramírez Other Provider Dr. Sergei Henley Primary Care Provider Dr. Rommel Youssef Attending Provider Dr. Rommel Youssef Other Provider Dr. Olegario Segal Attending Provider Dr. Sergei Henley Primary Care Provider Dr. Sergei Henley Referring Provider Sherly STRIPPER SHOVEL OPERATOR, STRIPPER SHOVEL OPERATOR-Cliff Harvey Attending Provider Dr. Olegario Segal Referring Provider Dr. Olegario Segal Other Provider Dr. Eduard Henley MD Primary Care Provider Dr. Eduard Henley MD Referring Provider [phone] Dr. Jose Lockwood MD Attending Provider Nick ABARCA, Dr. Lee Attending Provider Dr. Jesus Romero DO Emergency Provider Flor SY, Dr. Arellano Attending Provider Flor SY, Dr. Arellano Referring Provider Kale SY, Dr. Chapa Attending Provider Roof STRIPPER SHOVEL OPERATOR-C, Mitchell H Attending Provider [phone] Roof STRIPPER SHOVEL OPERATOR-C, Mitchell H Referring Provider [phone] Roof STRIPPER SHOVEL OPERATOR-C, Mitchell H Other Provider Kale SY, Dr. Chapa Primary Care Provider Kale SY, Dr. Chapa Referring Provider Mandie SY, Dr. Garcia Attending Provider [phone] Rico Attending Provider Ruslan SY, Dr. Jones Emergency Provider Kale SY, Dr. Chapa Primary Care Provider Kale SY, Dr. Chapa Referring Provider Ruslan SY, Dr. Jones Attending Provider Kale SY, Dr. Chapa Attending Provider Kale SY, Dr. Chapa Primary Care Physicia n Ruslan SY, Dr. Jones Attending Physician [phone] Ruslan SY, Dr. Jones Emergency Department Physici an Kale SY, Dr. Chapa Attending Physician Kale SY, Dr. Chapa Referring Provider Roof STRIPPER SHOVEL OPERATOR-C, Mitchell Harvey Attending Physician [phone] Eduard Henley Primary Care Unavailable Eduard Henley Referring Unavailable Eduard Henley Attending Unavailable Eduard Henley Primary Care Unavailable Roof STRIPPER SHOVEL OPERATOR, Mitchell Harvey Referring Unavailable Roof STRIPPER SHOVEL OPERATOR, Mitchell H Attending Unavailable Eduard Henley Primary Care Unavailable Roof STRIPPER SHOVEL OPERATOR, Mitchell H Referring Unavailable Jose Lockwood Attending Unavailable Roof STRIPPER SHOVEL OPERATORMitchell Consulting Unavailable [facility] Primary Care Unavailable White, Riddhi L Attending Unavailable White, Riddhi L Consulting Unavailable White, Riddhi L Admitting Unavailable Kaden Auguste Attending Unavailable Kaden Auguste Consulting Unavailable [facility] Unavailable [facility] Referring Unavailable Mg Rico Attending Unavailable [facility] Primary [facility] Unavailable [facility] Referring Unavailable Roof Mitchell ESCUDERO Attending Unavailable [facility] Referring Unavailable MandieJose navas Attending Unavailable [facility] Primary Care Unavailable [facility] Primary [facility] Unavailable Mandie, [place] Attending Unavailable [facility] Unavailable Nagajothi, Nagapradee Referring Unavailabl e Nagacris, Nagapradee Attending Unavailabl e Jesus Romero Attending Unavailable [facility] Primary Care Unavailable [facility] Primary Care Unavailable Robert Mrecer Attending Unavailable [facility] Primary Care Unavailable Robert Mercer Attending Unavailable Nagajothi, Nagapradee Referring Unavailabl e Nagacris, Nagapradee Attending Unavailabl e [facility] Primary Care Unavailable [facility] Primary Care Unavailable White, Riddhi L Consulting Unavailable WhiteRiddhi L Admitting Unavailable Kaden Auguste Attending Unavailable [facility] Primary Care Unavailable [facility] Referring Unavailable [facility] Attending Unavailable Allergies Allergy Classification Reported Allergen(s) Allergy Type Date of Onset Reaction(s) Facility (3 sources) shrimp allergenic extract Drug Allergy 01-22-2025 Anaphylaxis [facility] (1 source) scallop allergenic extract Drug Allergy 05-05-2025 Anaphylaxis [facility] (1 source) Scallop - dietary Drug allergy (disorder) 06-09-2025 [facility] (1 source) Shrimp product Drug allergy (disorder) 06-09-2025 [facility] Medications Current Medications Medication Drug Class(es) Dates Sig (Normalized) Sig (Original) acetaminophen 500 mg oral capsule (9 sources) Start: 06-15-2023 take 2 capsules by mouth every eight hours as needed for pain Acetaminophen 500 mg capsule Active 1000 mg PO EVERY 8 HOURS NEEDED as needed for fever or pain 30 June 15, 2023 11:28am Complies with drug [...] mg PO daily August 06, 2017 1:00am health system Complies with drug therapy Start: 11-27-2011 take 1 tablet by kolton th once daily ASPIRIN 81 MG TABS One tablet by mouth daily ASPIRIN [id number] Elizabet Avila Start: 11-27-2011 take 1 tablet by kolton th once daily ASPIRIN 81 MG TABS One tablet by mouth daily ASPIRIN [id number] Elizabet Avila Start: 11-27-2011 take 1 tablet by kolton th once daily ASPIRIN EC 81 MG TBEC One tablet by mouth daily ASPIRIN [id number] Bhavani Ralph PA-C cetirizine hydrochloride 10 mg [...] mg PO daily July 20, 2024 12:09pm Complies with drug therapy Start: 05-20-2023 End: 04-19-2024 take 2 tablets by mouth once daily Clopidogrel (Plavix) 75 mg tablet Discontinued 75 mg PO daily 93 May 20, 2023 12:00am April 19, 2024 [...] One tablet by mouth daily CLOPIDOGREL BISULFATE [id number] Elizabet Avila 1 ml evolocumab 140 mg/ml [...] 5 min up to 3 X NITROGLYCERIN [id number] Brain Whyte MD Start: 11-27-2011 NITROGLYCERIN 0.4 MG/HR PT24 1 tablet under tongue every 5 min up to 3 X NITROGLYCERIN 86186591878 Elizabet Avila pantoprazole 40 mg delayed release [...] One tablet by mouth twice daily AMOXICILLIN [id number] Latisha Zayas PA-C amoxicillin 875 mg / [...] mouth three times daily as needed CLONAZEPAM 09558216269 Elizabet Avila Cobalamin Combinations capsule (4 sources) [...] Start: 06-14-2023 take 1 capsule by mo [facility] once daily Cobalamine Combinations Active CAP PO [...] TABS One tablet by mouth daily EZETIMIBE 48978738129 Brain Whyte MD famotidine 20 mg oral tablet (5 sources) Histamine-2 Receptor Antagonist Start: 10-25-2013 take 1 tablet by mouth once daily FAMOTIDINE 20 MG TABS One tablet by mouth daily FAMOTIDINE 48656563937 Brain Whyte MD fish oil (10 sources) Start: 06-01-2012 End: 01-11-2013 take 1 tablet by mouth once daily FISH OIL CAPS One tablet by mouth daily OMEGA-3 FATTY ACIDS CAPS 63144905296 Bhavani Ralph PA-C Start: 06-01-2012 take 1 tablet by kolton th once daily FISH OIL CAPS One tablet by mouth daily OMEGA-3 FATTY ACIDS CAPS [id number] Brain Whyte MD Start: 06-01-2012 End: 01-11-2013 take 1 tablet by mouth once daily FISH OIL CAPS One tablet by mouth daily OMEGA-3 FATTY ACIDS CAPS 08974864096 Bhavani Ralph PA-C Start: 06-01-2012 take 1 tablet by kolton th once daily FISH OIL CAPS One tablet by mouth daily OMEGA-3 FATTY ACIDS CAPS 96569408753 Brain Whyte MD lisinopril 10 mg oral [...] TABS One tablet by mouth daily LISINOPRIL 33132587979 Brain Whyte MD Start: 11-28-2011 End: 01-11-2013 take 1 tablet by mouth once daily LISINOPRIL 10 MG TABS One tablet by mouth daily LISINOPRIL [id number] Bhavani Ralph PA-C Start: 11-27-2011 take 1 tablet by kolton th once daily LISINOPRIL 2.5 MG TABS One tablet by mouth daily LISINOPRIL 32149697064 Elizabet Avila loratadine 10 mg oral tablet [...] tablet by mouth daily as needed LORATADINE 41029693316 Brain Whyte MD Start: 11-27-2011 take 1 tablet by kolton th once daily as needed CLARITIN 10 MG CAPS One tablet by mouth daily as needed LORATADINE 66410232524 Brain Whyte MD oxyCODONE hydrochloride 5 mg [...] tablet by mouth at bedtime. PRAVASTATIN SODIUM 24648053099 Brain Whyte MD raNITIdine 150 mg oral tablet (5 sources) Histamine-2 Receptor Antagonist Start: 06-01-2012 take 1 tablet by mouth twice daily RANITIDINE HCL 150 MG TABS One tablet by mouth twice daily RANITIDINE HCL 79394966901 Brain Whyte MD rosuvastatin calcium 5 mg [...] mg tablet Discontinued 40 mg PO DAILY 30 11 May 05, 2023 12:00am May 20, 2023 [...] One tablet by mouth at bedtime. SIMVASTATIN 44385751424 Elizabet Avila tadalafil 5 mg oral tablet (20 sources) Phosphodiesterase 5 Inhibitor Start: 08-06-2017 End: 01-26-2018 Tadalafil 5 mg tablet Discontinued 5 mg PO NEEDED as needed for erectile 30 30 0 August 06, 2017 1:00am January 26, 2018 8:38am Start: 06-01-2012 CIALIS 5 MG TA BS as directed TADALAFIL 29358070549 Brain Whyte MD ticagrelor 90 mg oral [...] Coronary atherosclerosis; Translations: [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] Onset: 11-27-2011 11-27-2011 Chronic Comment on above: PTCA with CONNIE to pro ximal 1st obtuse marginal artery & proximal to mid LCX 05/20, mid LAD 06/20; 04/25/23: CONNIE to mid LAD and proximal OM1 Disorders of lipid metabolism (20 sources) Hyperlipidemia; Translations: [Hyperlipidemia, unspecified] Onset: 11-09-2024 07-07-2010 Chronic Diverticulosis and diverticulitis (19 sources) Diverticulitis of sigmoid colon; Translations: [Diverticulitis of large intestine without perforation or abscess without bleeding] Onset: 06-14-2025 06-14-2023 Chronic Comment on above: This is [...] Translations: [Myalgia and myositis, unspecified] 09-11-2023 Episodic Syncope (2 sources) Syncope and collapse; Translations: [Syncope and collapse] Onset: 06-14-2025 Episodic Transient cerebral ischemia (19 sources) Transient [...] (current) use of other medications; Translations: [Other termite helper (current) drug therapy] Onset: 06-10-2012 Resolved: 05-03-2015 [...] Test Name Value Interpretation Reference Range Facility CBC W/Diff, Automatedon 10-3 Absolute Lymph 1.25 X10 3/uL Normal 0.83-4.51 [facility] Comment on above: Performed By: #### L 100.0100, L500.4050 #### [facility] [address] [place], [address] Absolute Neut 4.0 X10 3/uL Normal 2.0-7.7 [facility] Comment on above: Performed By: #### L 100.0100, L500.4050 #### [facility] [address] [place], [address] Basophils/100 WBC (Bld) 0.5 % Normal 0-1 [facility] Comment on above: Performed By: #### L 100.0100, L500.4050 #### [facility] [address] [place], [address] Eosinophils/100 WBC (Bld) 3.6 % Normal 0-5 [facility] Comment on above: Performed By: #### L 100.0100, L500.4050 #### [facility] [address] [place], [address] Erythrocyte distribution width (RBC) [Ratio] 13.1 % Normal 11.6-14.6 [facility] Comment on above: Performed By: #### L 100.0100, L500.4050 #### [facility] [address] [place], [address] Hematocrit (Bld) [Volume fraction] 37.2 % Low 40-54 [facility] Comment on above: Performed By: #### L 100.0100, L500.4050 #### [facility] [address] [place], [address] Hemoglobin (Bld) [Mass/Vol] 12.2 g/dL Low 13.0-16.5 [facility] Comment on above: Performed By: #### L 100.0100, L500.4050 #### [facility] [address] [place], [address] IG% 0.700 Normal 0.0-0.9 [facility] Comment on above: Result Comment: IG% - Immature Granulocytes (promyelocytes, myelocytes and metamyelocytes) > 1% indicates that a LEFT SHIFT is Present. Performed By: #### L 100.0100, L500.4050 #### [facility] [address] [place], [address] Lymphocytes/100 WBC (Bld) 20.5 % Normal 19-41 [facility] Comment on above: Performed By: #### L 100.0100, L500.4050 #### [facility] [address] [place], [address] MCH (RBC) [Entitic mass] 32.6 pg High 27.0-32.0 [facility] Comment on above: Performed By: #### L 100.0100, L500.4050 #### [facility] [address] [place], [address] MCHC (RBC) [Mass/Vol] 32.8 g/dL Normal 32-36 [facility] Comment on above: Performed By: #### L 100.0100, L500.4050 #### [facility] [address] [place], [address] MCV (RBC) [Entitic vol] 99.5 fL High 80-94 [facility] Comment on above: Performed By: #### L 100.0100, L500.4050 #### [facility] [address] [place], [address] Monocytes/100 WBC (Bld) 9.7 % Normal 0-10 [facility] Comment on above: Performed By: #### L 100.0100, L500.4050 #### [facility] [address] [place], [address] Neutrophils/100 WBC (Bld) 65.0 % Normal 47-70 [facility] Comment on above: Performed By: #### L 100.0100, L500.4050 #### [facility] [address] [place], [address] Nucleated RBC (Bld) [#/Vol] 0 10*3/uL Normal 0-5 [facility] Comment on above: Performed By: #### L 100.0100, L500.4050 #### [facility] [address] [place], [address] Platelet mean volume (Bld) [Entitic vol] 9.8 fL Normal 6.2-12.0 [facility] Comment on above: Performed By: #### L 100.0100, L500.4050 #### [facility] [address] [place], [address] Platelets (Bld) [#/Vol] 207 10*3/uL Normal 150-450 [facility] Comment on above: Performed By: #### L 100.0100, L500.4050 #### [facility] [address] [place], [address] RBC (Bld) [#/Vol] 3.74 10*6/uL Low 4.6-6.2 [facility] Comment on above: Performed By: #### L 100.0100, L500.4050 #### [facility] [address] [place], [address] RDW SD 47.8 fl High 35.1-43.9 [facility] Comment on above: Performed By: #### L 100.0100, L500.4050 #### [facility] [address] [place], [address] WBC (Bld) [#/Vol] 6.1 10*3/uL Normal 4.4-11.0 [facility] Comment on above: Performed By: #### L 100.0100, L500.4050 #### [facility] [address] [place], [address] CDIFF (PCR)on 06-10-2025 CDIFF Is the patient receiving laxatives? N New/unexplained onset of 3 or more stools in past 24 hrs? Y Pending [phone] NAP1-B1 Presumptive Negative *for epidemiolologic???u se C. Diff PCR Negative- No toxigenic C. Diff Detected Normal [facility] Comment on above: Performed By: #### L 500.4100 #### [facility] [address] [place], [address] Comprehensive Metabolic Prof ilon 06-10-2025 Albumin [Mass/Vol] 3.3 g/dL Low 3.4-4.8 [facility] Comment on above: Performed By: #### L 500.2500, L500.3400 #### [facility] [address] [place], [address] Albumin/Globulin [Mass ratio] 1.2 {ratio} Normal 0.9-2.4 [facility] Comment on above: Performed By: #### L 500.2500, L500.3400 #### [facility] [address] [place], [address] ALK PHOS 57 U/L Normal 40-129 [facility] Comment on above: Performed By: #### L 500.2500, L500.3400 #### [facility] [address] [place], [address] ALT [Catalytic activity/Vol] 16 U/L Normal <=46 [facility] Comment on above: Performed By: #### L 500.2500, L500.3400 #### [facility] [address] [place], [address] AST [Catalytic activity/Vol] 19 U/L Normal <=37 [facility] Comment on above: Performed By: #### L 500.2500, L500.3400 #### [facility] [address] [place], [address] Bilirubin [Mass/Vol] 0.25 mg/dL Normal 0.00-1.30 [facility] Comment on above: Performed By: #### L 500.2500, L500.3400 #### [facility] [address] [place], [address] BUN/CRE 13.1 RATIO Normal 10-20 [facility] Comment on above: Performed By: #### L 500.2500, L500.3400 #### [facility] [address] [place], [address] Calcium [Mass/Vol] 8.1 mg/dL Normal 7.6-11.0 [facility] Comment on above: Performed By: #### L 500.2500, L500.3400 #### [facility] [address] [place], [address] Chloride [Moles/Vol] 110 mmol/L High 98-108 [facility] Comment on above: Performed By: #### L 500.2500, L500.3400 #### [facility] [address] [place], [address] CO2 [Moles/Vol] 20.4 mmol/L Low 21.0-32.0 [facility] Comment on above: Performed By: #### L 500.2500, L500.3400 #### [facility] [address] [place], [address] Creatinine [Mass/Vol] 0.86 mg/dL Normal 0.70-1.20 [facility] Comment on above: Performed By: #### L 500.2500, L500.3400 #### [facility] [address] [place], [address] ECRCL 99.01 ml/min Normal 50-250 [facility] Comment on above: Performed By: #### L 500.2500, L500.3400 #### [facility] [address] [place], [address] GAP 8 Normal 5-15 [facility] Comment on above: Performed By: #### L 500.2500, L500.3400 #### [facility] [address] [place], [address] GFR/1.73 sq M.predicted among non-blacks MDRD (S/P/Bld) [Vol rate/Area] 99 mL/min/{1.73_m2} Normal >60 [facility] Comment on above: Result Comment: mL/m in/1.73m2 CKD-EPI Creatinine Equation (2020) Performed By: #### L 500.2500, L500.3400 #### [facility] [address] [place], [address] Globulin (S) [Mass/Vol] 2.8 g/dL Normal 2.2-4.2 [facility] Comment on above: Performed By: #### L 500.2500, L500.3400 #### [facility] [address] [place], [address] Glucose [Mass/Vol] 106 mg/dL High 70-99 [facility] Comment on above: Performed By: #### L 500.2500, L500.3400 #### [facility] [address] [place], [address] Potassium [Moles/Vol] 4.3 mmol/L Normal 3.3-5.1 [facility] Comment on above: Performed By: #### L 500.2500, L500.3400 #### [facility] [address] [place], [address] Sodium [Moles/Vol] 138 mmol/L Normal 133-145 [facility] Comment on above: Performed By: #### L 500.2500, L500.3400 #### [facility] [address] [place], [address] T PROT 6.2 g/dL Normal 5.9-8.4 [facility] Comment on above: Performed By: #### L 500.2500, L500.3400 #### [facility] [address] [place], [address] Urea nitrogen [Mass/Vol] 11 mg/dL Normal 4-19 [facility] Comment on above: Performed By: #### L 500.2500, L500.3400 #### [facility] [address] [place], [address] Discharge Instructionon 10-3 Discharge Instruction [facility] Medical Records Department [address] [place] [address] Instructions for Home/Discharge Instructions 06/10/25 0939 MR#: [id number] Acct: [id number] Name: JOVANY MUÑIZ Rep #: [id number] : 1965 59 From: Kaden Auguste MD PCP: Dr. Eduard Henley MD Status:ADM FELICITA Discharge Instructions DC O2, CPAP, BIPAP needs Home O2 Discharge instructions: No Dressing / Incision Discharge Activity: Return to Normal Activity Dressing / Incision Call your doctor if you observe: Fever of 101 or Higher, Shortness of breath, Dizziness, Fainting spells, Swelling in the ankles, Chest pain and Increased palpitations (irregular heartbeat) Follow Up Care Test Results: Test results from this visit will be discussed in further detail at your follow-up appointment, if applicable. Discharge Plan Admission Admit Date/Time: 06/09/25 23:33 Attending Provider: Kaden Auguste Primary Care Provider: Eduard Henley Consulting Providers: Riddhi Azul Instructions Patient Instructions: Diverticulitis Dc Discharge Orders/Prescription s Prescriptions: New amoxicillin-pot clavulanate 875-125 mg tablet 1 tab PO BID Qty: 20 0RF Continued aspirin [Adult Low Dose Aspirin] 81 mg tablet,delayed release (DR/EC) 81 mg PO QDAY cetirizine 10 mg tablet 10 mg PO PRN epinephrine 0.3 mg/0.3 mL auto-injector 0.3 mg IM PRN Leqvio 284 mg/1.5 mL syringe 284 mg subcut .COMPLEX Rx Instructions: 284 mg subcutaneously; x1 first month 06/03/25 then x1in 3 months 09/09/25 then every six months after that Metamucil Plus Calcium 1-60 gram-mg capsule 2 cap PO QHS Rx Instructions: administer with large glass of water essential 1 ea PO DAILY Patient Comments: algal omega 3 oil 900mg vitamin d3 50mcg vitamin b12 400mcg epa 135mg dha 270mg acetaminophen 500 mg capsule 1,000 mg PO Q8H PRN (Reason: fever or pain) nitroglycerin [Nitrostat] 0.4 mg tablet, sublingual 0.4 mg SUBLINGUAL Q5-15M PRN (Reason: CHEST PAIN) Qty: 25 3RF Held losartan 100 mg tablet 100 mg PO DAILY Hold Instructions: Resume on 06/13/25. Referrals / Follow Up: Eduard Henley MD [Primary Care Provider, Family Practice] - Within 1 Week Disposition Disposition (needs filled in before D/C Order can be placed): Home, Self Care 06/10/25 5858 Kaden Auguste MD CC: Dr. Riddhi Azul MD; Dr. Eduard Henley MD Signed Normal [facility] ENTERIC PATHOGEN PANEL STOOL on 06-10-2025 EP PANEL Is the patient receiving laxatives? N New/unexplained onset of 3 or more stools in past 24 hrs? Y Normal Reference Range = Not Detected Not detected for Campylobacter group, Salmonella species, Shigella species, Vibrio Group, Yersinia enterocolitica, EHEC (Shiga Toxin 1, Shiga Toxin 2), Norovirus Gl/Gll, and Rotavirus A. Other common stool pathogens are not detected on this panel include: Aeromonas/Plesiomon as or parasites. Order testing for these organisms separately if suspected. This is an amplified DNA test which makes it both specific and sensitive. CAMPYLOBACTER Not Detected Norovirus Not Detected Rotavirus Not Detected Salmonella Not Detected Shiga Toxin Not Detected Shigella sp. Not Detected VIBRIO Not Detected Yersinia Not Detected Normal [facility] Comment on above: Performed By: #### L 500.5030, L501.9910, L506.1000, L503.0105, L500.4100 #### [facility] [address] [place], [address] Magnesiumon 06-10-2025 Magnesium [Mass/Vol] 2.0 mg/dL Normal 1.5-2.2 [facility] Comment on above: Order Comment: Comme nts: may add to ED labs Performed By: #### L 500.2500, L500.3400 #### [facility] [address] [place], [address] Troponin T HS 4 HRon 025 Trop T High Sen < 6 Normal <=22 [facility] Comment on above: Performed By: #### L 500.2500, L500.3400 #### [facility] [address] [place], [address] 12 Lead EKGon 06-09-2025 12 Lead EKG [facility] Cardiovascular Services [address] [place] [address] 12 Lead EKG 06/09/251941 MR#: [id number] Acct: [id number] Name: JOVANY MUÑIZ Rep #: [id number] : 1965 59 From: Jose Lockwood MD Attending Dr: Dr. Kaden Auguste MD Status : DIS FELICITA Ordering Dr: Robert Mercer MD Date: 06/09/25 Location: U Sex: M C Admitted: 06/09/25 Test Reason : DYSRHYTHMIA Blood Pressure : */* mmHG Vent. Rate : 81 BPM Atrial Rate : 81 BPM P-R Int : 184 ms QRS Dur : 84 ms QT Int : 374 ms P-R-T Axes : 56 -39 15 degrees QTcB Int : 434 ms Normal sinus rhythm Left axis deviation Low voltage QRS Inferior infarct , age undetermined Abnormal ECG Confirmed by JOSE LOCKWOOD MD ([id number]), commissioning editor RUBI ROMERO ([id number]) on 06/11/2025 8:02:31 AM Referred By: AK Confirmed By: JOSE LOCKWOOD MD 06/11/25 0802 Date Jose Lockwood MD CC: Dr. Eduard Henley MD; Dr. Robert Mercer MD; Dr. Kaden Auguste MD Signed Normal [facility] Abdomen/Pelvis W IV Cont ONL Yon 06-09-2025 Abdomen/Pelvis W IV Cont ONLY [facility] Imaging Services [address] [place] [address] Abdomen/Pelvis W IV Cont ONLY MR#: [id number] Acct: [id number] Name: JOVANY MUÑIZ Rep #: [id number] : 1965 M 59 From: Aidan Olguin MD PCP: Dr. Eduard Henley MD Status: REG ER Study: Abdomen/Pelvis W IV Cont ONLY Date of Exam: Exam# [id number] Ordering Dr: Robert Mercer MD PROCEDURE: CT ABDOMEN/PELVIS W IV CONT ONLY 06/09/2025 REASON FOR EXAM: LOWER ABD PAIN AND SYNCOPE TECHNIQUE: Procedure Code: [id number] Modality: CT Procedure: ABDOMEN/PELVIS W IV CONT ONLY Coronal and Sagittal reconstruction series were provided. CONTRAST: Isovue 370 VOLUME: 95 mL One or more dose reduction techniques were used (e.g., Automated exposure control, adjustment of the mA and/or kV according to patient size, use of iterative reconstruction technique. RADIATION DOSE SUMMARY: DLP: 969.71 mGycm COMPARISON: None available. FINDINGS: Lung bases: Clear. Mild dependent atelectasis. Liver: Mild hepatic steatosis, otherwise unremarkable. Gallbladder: Unremarkable. No biliary ductal dilatation. Spleen: Unremarkable. Pancreas: Unremarkable. Adrenals: Unremarkable Kidneys: Unremarkable. No urolithiasis or hydronephrosis. Bladder: Unremarkable. Reproductive Organs: Unremarkable, nonenlarged prostate. Bowel: Unremarkable stomach and small bowel. No evidence of obstruction. Normal appendix. Moderate distal colonic diverticulosis with segmental wall thickening of the sigmoid colon, suggestive of mild acute segmental colitis versus uncomplicated diverticulitis. Lymph nodes: No suspicious lymph node enlargement. Vasculature: Mild undulating aneurysmal dilatation of the infrarenal abdominal aorta, measuring up to 2.7 cm in maximal diameter. No dissection. Moderate atherosclerotic disease. Peritoneum / Retroperitoneum: No ascites or free air. Bones: Mild multilevel degenerative changes of the spine. CT/Abdomen/Pelvis W IV Cont ONLY IMPRESSION: 1. Moderate distal colonic diverticulosis, with probable mild acute segmental colitis versus uncomplicated diverticulitis of the sigmoid colon. 2. Mild undulating aneurysmal dilatation of the infrarenal abdominal aorta. Reading Location: [id number] CC: Dr. Eduard Henley MD; Dr. Robert Mercer MD Associate Creative Director: Signed Normal [facility] Basic Metabolic Profile (BMP )on 06-09-2025 BUN/CRE 14.5 RATIO Normal - [facility] Comment on above: Performed By: #### L 500.2500, L500.3400 #### [facility] Laboratory [address] [place], [address] Calcium [Mass/Vol] 9.0 mg/dL Normal 7.6-11.0 [facility] Comment on above: Performed By: #### L 500.2500, L500.3400 #### [facility] [address] [place], [address] Chloride [Moles/Vol] 100 mmol/L Normal 98-108 [facility] Comment on above: Performed By: #### L 500.2500, L500.3400 #### [facility] [address] [place], [address] CO2 [Moles/Vol] 19.5 mmol/L Low 21.0-32.0 [facility] Comment on above: Performed By: #### L 500.2500, L500.3400 #### [facility] [address] [place], [address] Creatinine [Mass/Vol] 0.98 mg/dL Normal 0.70-1.20 [facility] Comment on above: Performed By: #### L 500.2500, L500.3400 #### [facility] [address] [place], [address] ECRCL 86.88 ml/min Normal 50-250 [facility] Comment on above: Performed By: #### L 500.2500, L500.3400 #### [facility] [address] [place], [address] GAP 16 High 5-15 [facility] Comment on above: Performed By: #### L 500.2500, L500.3400 #### [facility] [address] [place], [address] GFR/1.73 sq M.predicted among non-blacks MDRD (S/P/Bld) [Vol rate/Area] 87 mL/min/{1.73_m2} Normal >60 [facility] Comment on above: Result Comment: mL/m in/1.73m2 CKD-EPI Creatinine Equation (2020) Performed By: #### L 500.2500, L500.3400 #### [facility] [address] [place], [address] Glucose [Mass/Vol] 141 mg/dL High 70-99 [facility] Comment on above: Performed By: #### L 500.2500, L500.3400 #### [facility] [address] [place], [address] Potassium [Moles/Vol] 3.4 mmol/L Normal 3.3-5.1 [facility] Comment on above: Performed By: #### L 500.2500, L500.3400 #### [facility] [address] [place], [address] Sodium [Moles/Vol] 135 mmol/L Normal 133-145 [facility] Comment on above: Performed By: #### L 500.2500, L500.3400 #### [facility] [address] [place], [address] Urea nitrogen [Mass/Vol] 14 mg/dL Normal 4-19 [facility] Comment on above: Performed By: #### L 500.2500, L500.3400 #### [facility] [address] [place], [address] CBC W/Diff, Automatedon 10-3 0-2025 Absolute Lymph 1.79 X10 3/uL Normal 0.83-4.51 [facility] Comment on above: Performed By: #### L 500.2500, L500.3400 #### [facility] [address] [place], [address] Absolute Neut 2.4 X10 3/uL Normal 2.0-7.7 [facility] Comment on above: Performed By: #### L 500.2500, L500.3400 #### [facility] [address] [place], [address] Basophils/100 WBC (Bld) 0.8 % Normal 0-1 [facility] Comment on above: Performed By: #### L 500.2500, L500.3400 #### [facility] [address] [place], [address] Eosinophils/100 WBC (Bld) 4.0 % Normal 0-5 [facility] Comment on above: Performed By: #### L 500.2500, L500.3400 #### [facility] [address] [place], [address] Erythrocyte distribution width (RBC) [Ratio] 12.9 % Normal 11.6-14.6 [facility] Comment on above: Performed By: #### L 500.2500, L500.3400 #### [facility] [address] [place], [address] Hematocrit (Bld) [Volume fraction] 38.7 % Low 40-54 [facility] Comment on above: Performed By: #### L 500.2500, L500.3400 #### [facility] [address] [place], [address] Hemoglobin (Bld) [Mass/Vol] 13.0 g/dL Normal 13.0-16.5 [facility] Comment on above: Performed By: #### L 500.2500, L500.3400 #### [facility] [address] [place], [address] IG% 0.800 Normal 0.0-0.9 [facility] Comment on above: Result Comment: IG% - Immature Granulocytes (promyelocytes, myelocytes and metamyelocytes) > 1% indicates that a LEFT SHIFT is Present. Performed By: #### L 500.2500, L500.3400 #### [facility] [address] [place], [address] Lymphocytes/100 WBC (Bld) 35.7 % Normal 19-41 [facility] Comment on above: Performed By: #### L 500.2500, L500.3400 #### [facility] [address] [place], [address] MCH (RBC) [Entitic mass] 33.2 pg High 27.0-32.0 [facility] Comment on above: Performed By: #### L 500.2500, L500.3400 #### [facility] [address] [place], [address] MCHC (RBC) [Mass/Vol] 33.6 g/dL Normal 32-36 [facility] Comment on above: Performed By: #### L 500.2500, L500.3400 #### [facility] [address] [place], [address] MCV (RBC) [Entitic vol] 98.7 fL High 80-94 [facility] Comment on above: Performed By: #### L 500.2500, L500.3400 #### [facility] [address] [place], [address] Monocytes/100 WBC (Bld) 11.6 % High 0-10 [facility] Comment on above: Performed By: #### L 500.2500, L500.3400 #### [facility] [address] [place], [address] Neutrophils/100 WBC (Bld) 47.1 % Normal 47-70 [facility] Comment on above: Performed By: #### L 500.2500, L500.3400 #### [facility] [address] [place], [address] Nucleated RBC (Bld) [#/Vol] 0 10*3/uL Normal 0-5 [facility] Comment on above: Performed By: #### L 500.2500, L500.3400 #### [facility] [address] [place], [address] Platelet mean volume (Bld) [Entitic vol] 9.9 fL Normal 6.2-12.0 [facility] Comment on above: Performed By: #### L 500.2500, L500.3400 #### [facility] [address] [place], [address] Platelets (Bld) [#/Vol] 234 10*3/uL Normal 150-450 [facility] Comment on above: Performed By: #### L 500.2500, L500.3400 #### [facility] [address] [place], [address] RBC (Bld) [#/Vol] 3.92 10*6/uL Low 4.6-6.2 [facility] Comment on above: Performed By: #### L 500.2500, L500.3400 #### [facility] [address] [place], [address] RDW SD 46.5 fl High 35.1-43.9 [facility] Comment on above: Performed By: #### L 500.2500, L500.3400 #### [facility] [address] [place], [address] WBC (Bld) [#/Vol] 5.0 10*3/uL Normal 4.4-11.0 [facility] Comment on above: Performed By: #### L 500.2500, L500.3400 #### [facility] [address] [place], [address] Chest 1 View (Portable)on Chest 1 View (Portable) [facility] Imaging Services [address] [place] [address] Chest 1 View (Portable) MR#: [id number] Acct: [id number] Name: JOVANY MUÑIZ Rep #: [id number] : 1965 M 59 From: Benito Abebe MD PCP: Dr. Eduard Henley MD Status: REG ER Study: Chest 1 View (Portable) Date of Exam: 06/09/25 Exam# [id number] Ordering Dr: Robert Mercer MD PROCEDURE: CHEST 1 VIEW (PORTABLE) 06/09/2025 REASON FOR EXAM: CHEST PAIN TECHNIQUE: Frontal view of the chest. COMPARISON: 09/03/2024 FINDINGS: Hardware: None. Heart: The heart size is normal. Lungs: The lungs are clear. No pneumothorax or pleural effusion. Bones: The bones are unremarkable. RAD/Chest 1 View (Portable) IMPRESSION: No Acute Findings. Reading [facility] CC: Dr. Eduard Henley MD; Dr. Robert Mercer MD Associate Creative Director: Signed Normal [facility] Echo Completeon 06-09-2025 Echo Complete [facility] Cardiovascular Services [address] [place] [address] Echo Complete 06/10/25 0912 MR#: [id number] Acct: [id number] Name: ANTONINOJOVANY JOSE Rep #: [id number] : 1965 59 From: Jose Lockwood MD Attending Dr: Dr. Kaden Auguste MD Status : DIS FELICITA Ordering Dr: Riddhi Azul MD Date: 06/09/25 Location: [facility] Sex: M C Admitted: 06/09/25 Reason For Study Reason For Study: Syncope/Near Syncope Procedure This was a 2D Doppler, Color Flow transthoracic echocardiogram. Exam performed portable in patient room. Left Ventricle Normal LV size. The left ventricular ejection fraction is 65 %. Stage 1 diastolic dysfunction. No regional wall motion abnormalities noted. Right Ventricle Normal RV size. Normal systolic function. Atria Normal left atrium. Normal right atrium. Mitral Valve Normal mitral valve. Tricuspid Valve Normal tricuspid valve. Mild (1+) tricuspid valve insufficiency. Pulmonary artery systolic pressure is 27 mmHg. Aortic Valve Normal aortic valve. Pulmonic Valve Normal pulmonic valve. Great Vessels Normal aortic root. The pulmonary artery is normal size. Inferior vena cava collapse with respiration. Pericardium/Pleural No pericardial effusion. MMode/2D Measurements Calculations LVIDd: 5.1 cm IVSd: 0.99 cm Ao root diam: 3.0 cm LVIDs: 3.2 cm LVPWd: 1.0 cm RVDd: 2.9 cm FS: 37.1 % __ LAV(MOD-bp): 32.3 ml LVAd ap4: 28.7 cm2 SV(MOD-sp4): 55.4 ml LAV(MOD-bp) Indexed: 15.4 ml/m2 LVLd ap4: 7.7 cm SI(MOD-sp4): 26.3 ml/m2 LAV(MOD-sp2): 28.4 ml EDV(MOD-sp4): 88.0 ml LAV(MOD-sp4): 29.4 ml EDV(sp4-el): 90.5 ml LVAs ap4: 15.4 cm2 LVLs ap4: 6.2 cm ESV(MOD-sp4): 32.6 ml ESV(sp4-el): 32.3 ml EF(MOD-sp4): 62.9 % EF(sp4-el): 64.3 % __ SV(sp4-el): 58.2 ml LA A4 area: 13.3 cm2 LA dimension(2D): 3.7 cm __ RA A4 area: 15.6 cm2 TAPSE: 2.5 cm Time Measurements MV dec time: 0.20 sec Doppler Measurements Calculations MV E max radha: 46.5 cm/sec Lat Peak E' Radha: 13.0 cm/sec Med Peak E' Radha: 7.1 cm/sec MV A max radha: 70.7 cm/sec E/E' lat: 3.6 E/E' med: 6.6 MV E/A: 0.66 __ Ao V2 max: 116.8 cm/sec LV V1 max: 100.9 cm/sec MV dec slope: 227.9 cm/sec2 Ao max P.5 mmHg LV V1 max P.1 mmHg Ao V2 mean: 94.5 cm/sec LV V1 mean P.3 mmHg Ao mean P.7 mmHg LV V1 mean: 70.9 cm/sec Ao V2 VTI: 24.0 cm LV V1 VTI: 19.7 cm AV (velocity ratio): 0.82 __ PA V2 max: 115.4 cm/sec TR max radha: 243.3 cm/sec TR max P.7 mmHg ECHO/Echo Complete Interpretation Summary The left ventricular ejection fraction is 65 %. Stage 1 diastolic dysfunction. Normal LV size. Structurally normal valves. __ Ordering Physician: Riddhi Azul Referring Physician: Eduard Henley Performed By: Kavitha Dubois, LASHAWN, RVT 06/10/251824 Date Jose Lockwood MD CC: Dr. Riddhi Azul MD; Dr. Eduard Henley MD; Dr. Kaden Auguste MD Date Dictated: 06/10/25911 Date Transcribed: 06/10/251824 Associate Creative Director: Signed [facility] Emergency Department Summary on 06-09-2025 Emergency Department Summary [facility] Medical Records Department [address] [place] [address] Emergency Department Summary 06/09/25 MR#: [id number] Acct: [id number] Name: JOVANY MUÑIZ Rep #: [id number] : 1965 59 From: Robert Mercer MD PCP: Dr. Eduard Henley MD Status:ADM FELICITA Location: [address] History of Present Illness Chief Complaint: Syncope Informant: patient and spouse/S.O. Onset/Context/Timin g Onset: Today Context: Sudden Onset Timing: Intermittent Current Severity: Gone Maximum Severity: Moderate Narrative Narrative: 59-year-old male history of IL CAD with stent on Plavix and aspirin. Patient feeling fine. Denies recent illness. He wanted to have a bowel movement it was done with a bowel movement stood up pulled his pants up and had a syncopal episode. heard him fall out of the floor. And said she went to open the door he was leaning against the door she said he was diaphoretic and unresponsive. But he was breathing. He had a second episode because he [place] get up to get on the toilet again. And then the third. He typically has not had syncopal events. He has a no history of cardiac dysrhythmia. He denies recent illness or melena. He denies any other complaints he denies a headache, chest pain or shortness of breath. He has some mild abdominal discomfort. Said has been feeling fine recently other than some mild diarrhea after using magnesium. 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 (04/25/23) Home Medications ???Medication ???Instructions ???Recorded ???Last Taken ???Type aspirin 81 mg tablet,delayed 81 mg PO QDAY health system 7 06/09/25 History release (Adult Low Dose Aspirin) cetirizine 10 mg tablet 10 mg PO PRN allergy symptoms 05/11 Unknown History nitroglycerin 0.4 mg sublingual 0.4 mg sublingual Q5-15M PRN CHEST 06/13/23 Unknown Rx tablet (Nitrostat) PAIN #25 tabs acetaminophen 500 mg capsule 1,000 mg PO Q8H PRN fever or pain 06/09/25 06/09/25 History epinephrine 0.3 mg/0.3 mL 0.3 mg IM PRN allergy to scallops 06/09/25 Unknown History injection, auto-injector essential 1 ea PO DAILY 06/09/25 06/09/25 Hi story inclisiran 284 mg/1.5 mL 284 mg subcut .COMPLEX 06/09/25 History subcutaneous syringe (Leqvio) losartan 100 mg tablet 100 mg PO DAILY 06/09/25 06/09/25 History psyllium husk-calcium 1 gram-60 mg 2 cap PO QHS 06/09/25 06/09/25 H istory capsule (Metamucil Plus Calcium) Allergy/AdvReac Type Severity Reaction Status Date / Time shrimp Allergy Severe Anaphylaxis Verified 06/09/25 19:37 scallops Allergy Anaphylaxis Verified 06/09/25 19:37 Family History Grandfather , age 76 CVA [...] ROS ROS ED ROS Narrative Denies recent illness or and some diarrhea after using magnesium. Constitutional Constitutional ED: Denies chills or fever(s) Eyes Eyes: Denies blurry vision ENT ENT ED: Denies ear pain Cardiovascular Cardiovascular: Denies chest pain Respiratory/Chest Respiratory/Chest: Denies cough or dyspnea Gastrointestinal Gastrointestinal: Reports abdominal pain and diarrhea; Denies nausea or vomiting Genitourinary Genitourinary ED: Denies dysuria or hematuria Musculoskeletal Musculoskeletal: Denies arthralgias Integumentary Denies abscess Neurologic Neurologic: Denies headache(s) Psychiatric Psychiatric: Denies anxiety or depression Hematologic/Lymphat ic Hematologic/Lymphat ic: Reports n (more content not included)... Normal [facility] H AND P Exam - Hospitaliston 06-09-2025 H&P Exam - Hospitalist [facility] Medical Records Department [address] [place] [address] H P Exam - Hospitalist 06/09/25 2333 MR#: [id number] Acct: [id number] Name: JOVANY MUÑIZ Rep #: [id number] : 1965 59 From: Riddhi Azul MD PCP: Dr. Eduard Henley MD Status:ADM FELICITA Location: [place] [address] HPI - General General Date of Admission: 06/09/25 Date of Service: 06/09/25 Chief Complaint: Syncope, N/lack of appetite/abdominal pain/diarrhea HPI Narrative The patient is a 59 y/o M w/ PMHx: CKD stage II per GFR trending, CAD s/p PCI, HTN, HLD, Former tobacco use, Hx prior diverticulitis last 2-3 years prior who presents to the [facility] ED on 06/09/25 with history of increased lack of appetite, fatigue and malaise over the last approximate week with onset over the last 2 to 3 days mild left lower quadrant discomfort and loose stools as well as nausea but no emesis nor any fevers or chills and on day of presentation reported to have been using the bathroom with recurrent bowel movements with syncopal events twice in that setting and occurring once again when attempting to be up and moving with no head trauma but lightheadedness/diz ziness prompting eventual ED evaluation to be cautious. Workup in the ED included T97.6, heart rate 80, BP 100/73, respiratory rate 16, 96% on room air, positive orthostatics, CBC with WC 5.0, Heenan 13, platelet 234 without marked shift, CMP with carbon oxide 19.5, anion gap 16, BUN/creatinine 14/0.98, GFR 87, glucose 141, hepatic profile unremarkable, troponin less than 6 x 2, urinalysis unremarkable, chest x-ray with no acute cardiopulmonary findings, EKG with sinus rhythm with no acute evidence of ischemia, CT abdomen and pelvis with moderate distal colonic diverticulosis, probable mild acute segmental colitis versus uncomplicated diverticulitis of the sigmoid colon, mild undulating aneurysmal dilatation of the infrarenal abdominal aorta. In the ED patient ministered 1 L normal saline, ciprofloxacin 500 mg p.o. x 1, Flagyl 500 mg p.o. x 1, morphine 4 mg IV x 1, Zofran 4 mg IV x 1. 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 (04/25/23) Home Medications ???Medication ???Instructions ???Recorded ???Last Taken ???Type aspirin 81 mg tablet,delayed 81 mg PO QDAY [facility] 7 06/09/25 History release (Adult Low Dose Aspirin) cetirizine 10 mg tablet 10 mg PO PRN allergy symptoms 05/11 Unknown History nitroglycerin 0.4 mg sublingual 0.4 mg sublingual Q5-15M PRN CHEST 06/13/23 Unknown Rx tablet (Nitrostat) PAIN #25 tabs acetaminophen 500 mg capsule 1,000 mg PO Q8H PRN fever or pain 06/09/25 06/09/25 History epinephrine 0.3 mg/0.3 mL 0.3 mg IM PRN allergy to scallops 06/09/25 Unknown History injection, auto-injector essential 1 ea PO DAILY 06/09/25 06/09/25 Hi story inclisiran 284 mg/1.5 mL 284 mg subcut .COMPLEX 06/09/25 History subcutaneous syringe (Leqvio) losartan 100 mg tablet 100 mg PO DAILY 06/09/25 06/09/25 History psyllium husk-calcium 1 gram-60 mg 2 cap PO QHS 06/09/25 06/09/25 H istory capsule (Metamucil Plus Calcium) Allergy/AdvReac Type Severity Reaction Status Date / Time shrimp Allergy Severe Anaphylaxis Verified 06/09/25 19:37 scallops Allergy Anaphylaxis Verified 06/09/25 19:37 Family History Grandfather , age 76 CVA (cerebral vascular accident) Father Diabetes Mother Dementia Surgical History History of coronary artery stent placement History of cardiac catheterization Presence of coronary angioplasty implant and graft (04/25/23) History of left heart catheterization ( 12/2010) Social History adopted: No household members: spouse housing: house Smoking Status: Former smoker how long ago did patient quit smokin alcohol intake: current alcohol intake frequency: 0-2 drinks per day Alcohol type: beer substance use type: does not use caffeine: Yes Type: coffee Number of servings: 2 what type of physical activity do you participate in: none seatbelt use: sometimes do you feel safe at home: Yes ROS ROS Narrative Admission Review of Systems: CONSTITUTIONAL: No weight loss, fever, chi (more content not included)... Normal [facility] L501.4021on 06-09-2025 Trop T High Sen < 6 Normal <=22 [facility] Comment on above: Performed By: #### L 500.2500, L500.3400 #### [facility] [place], [address] Liver Profileon 06-09-2025 Albumin [Mass/Vol] 3.7 g/dL Normal 3.4-4.8 [facility] Comment on above: Performed By: #### L 500.2500, L500.3400 #### [facility] [address] [place], [address] ALK PHOS 63 U/L Normal 40-129 [facility] Comment on above: Performed By: #### L 500.2500, L500.3400 #### [facility] [address] [place], [address] ALT [Catalytic activity/Vol] 19 U/L Normal <=46 [facility] Comment on above: Performed By: #### L 500.2500, L500.3400 #### [facility] [address] [place], [address] AST [Catalytic activity/Vol] 26 U/L Normal <=37 [facility] Comment on above: Performed By: #### L 500.2500, L500.3400 #### [facility] Laboratory [address] [place], [address] Bilirubin [Mass/Vol] 0.28 mg/dL Normal 0.00-1.30 [facility] Comment on above: Performed By: #### L 500.2500, L500.3400 #### [facility] Laboratory [address] [place], [address] Bilirubin.direct [Mass/Vol] 0.13 mg/dL Normal 0.00-0.30 [facility] Comment on above: Performed By: #### L 500.2500, L500.3400 #### [facility] Laboratory [address] [place], [address] Globulin (S) [Mass/Vol] 3.3 g/dL Normal 2.2-4.2 [facility] Comment on above: Performed By: #### L 500.2500, L500.3400 #### [facility] Laboratory [address] [place], [address] T PROT 7.0 g/dL Normal 5.9-8.4 [facility] Comment on above: Performed By: #### L 500.2500, L500.3400 #### [facility] Laboratory [address] [place], [address] Troponin T HS 2 HRon 06-09- 025 Trop T High Sen < 6 Normal <=22 [facility] Comment on above: Performed By: #### L 499.0042 #### [facility] Laboratory [address] [place], [address] Urinalysis, Completeon 06-09 BACTERIA RARE Normal None Seen [facility] Comment on above: Order Comment: Order Date: 09/28/24 Order Info: [id number] - CMP Order Info: [id number] - LIPID Order Info: [id number] - PSA Performed By: #### L 500.4050, L501.9910, L506.1000, L503.0105, L500.4100 #### [facility] Laboratory [address] [place], [address] CAST,HYALINE 0-5 SEEN Normal 0-5 [facility] Comment on above: Order Comment: Order Date: 09/28/24 Order Info: [id number] - CMP Order Info: [id number] - LIPID Order Info: [id number] - PSA Performed By: #### L 500.4050, L501.9910, L506.1000, L503.0105, L500.4100 #### [facility] Laboratory [address] [place], [address] EPI,SQUAMOUS 0-5 SEEN Normal 0-5 [facility] Comment on above: Order Comment: Order Date: 09/28/24 Order Info: [id number] - CMP Order Info: [id number] - LIPID Order Info: [id number] - PSA Performed By: #### L 500.4050, L501.9910, L506.1000, L503.0105, L500.4100 #### [facility] Laboratory [address] [place], [address] WBC 0-5 SEEN Normal 0-5 [facility] Comment on above: Order Comment: Order Date: 09/28/24 Order Info: [id number] - CMP Order Info: [id number] - LIPID Order Info: [id number] - PSA Performed By: #### L 500.4050, L501.9910, L506.1000, L503.0105, L500.4100 #### [facility] Laboratory [address] [place], [address] Mucus Ql (Urine sed) 0 SEEN Normal [facility] Comment on above: Order Comment: Order Date: 09/28/24 Order Info: [id number] - CMP Order Info: [id number] - LIPID Order Info: [id number] - PSA Performed By: #### L 500.4050, L501.9910, L506.1000, L503.0105, L500.4100 #### [facility] Laboratory [address] [place], [address] RBC 0 SEEN Normal 0-5 [facility] Comment on above: Order Comment: Order Date: 09/28/24 Order Info: [id number] - CMP Order Info: [id number] - LIPID Order Info: [id number] - PSA Performed By: #### L 500.4050, L501.9910, L506.1000, L503.0105, L500.4100 #### [facility] Laboratory [address] [place], [address] Cardiology Visit Reporton Cardiology Visit Report [facility] [address] [place], [place] [address] OFFICE VISIT Date of Service: 05/05/25 MR#: [id number] Acct: [id number] Name: JOVANY MUÑIZ Rep #: [id number] : 1965 Provider: EUGENIA south Age/Sex: 59/M Location: [facility] Status: Signed HPI HPI History of Present Illness Details: This is a 59-year-old white male who presents today for outpatient cardiovascular follow-up regarding a history of underlying CAD, PCI, hyperlipidemia, and hypertension. He was noted to have inferior myocardial infarction with stenting to his obtuse marginal, proximal to mid circumflex, proximal to mid LAD in 2009. 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 Normal [facility] L5500.0550on 02-01-2025 BEEF <0.10 Normal Class 0 [facility] Comment on above: Performed By: #### L 500.2500, L500.3400 #### [facility] Laboratory [address] [place], [address] CHOCOLATE <0.10 Normal Class 0 [facility] Comment on above: Performed By: #### L 500.2500, L500.3400 #### [facility] Laboratory [address] [place], [address] CODFISH <0.10 Normal Class 0 [facility] Comment on above: Performed By: #### L 500.2500, L500.3400 #### [facility] Laboratory [address] [place], [address] COMMENT Comment Normal . [facility] Comment on above: Result Comment: Master bennett of Specific IgE Class Description of Class ----- < 0.10 0 Negative 0.10 - 0.31 0/I Equivocal/Low 0.32 - 0.55 I Low 0.56 - 1.40 II Moderate 1.41 - 3.90 III High 3.91 - 19.00 IV Very High 19.01 - 100.00 V Very High >100.00 Very High Performed By: #### L 500.2500, L500.3400 #### [facility] [address] [place], [address] CORN <0.10 Normal Class 0 [facility] Comment on above: Performed By: #### L 500.2500, L500.3400 #### [facility] Laboratory [address] [place], [address] EGG, WHOLE <0.10 Normal Class 0 [facility] Comment on above: Result Comment: Perf ormed at: [facility] [address] [id number] Manager Cost: Brandie Dial MD, Phone: [phone] Performed By: #### L 500.2500, L500.3400 #### [facility] Laboratory [address] [place], [address] MILK (COW) <0.10 Normal Class 0 [facility] Comment on above: Performed By: #### L 500.2500, L500.3400 #### [facility] Laboratory [address] [place], [address] MUSSELS <0.10 Normal Class 0 [facility] Comment on above: Performed By: #### L 500.2500, L500.3400 #### [facility] [address] [place], [address] PEANUT <0.10 Normal Class 0 [facility] Comment on above: Performed By: #### L 500.2500, L500.3400 #### [facility] Laboratory [address] [place], [address] PORK <0.10 Normal Class 0 [facility] Comment on above: Performed By: #### L 500.2500, L500.3400 #### [facility] Laboratory [address] [place], [address] SALMON <0.10 Normal Class 0 [facility] Comment on above: Performed By: #### L 500.2500, L500.3400 #### [facility] Laboratory [address] [place], [address] SHRIMP 0.50 kU/L Abnormal Class I [facility] Comment on above: Performed By: #### L 500.2500, L500.3400 #### [facility] Laboratory [address] [place], [address] SOYBEAN <0.10 Normal Class 0 [facility] Comment on above: Performed By: #### L 500.2500, L500.3400 #### [facility] Laboratory [address] [place], [address] TUNA <0.10 Normal Class 0 [facility] Comment on above: Performed By: #### L 500.2500, L500.3400 #### [facility] Laboratory [address] [place], [address] WHEAT <0.10 Normal Class 0 [facility] Comment on above: Performed By: #### L 500.2500, L500.3400 #### [facility] Laboratory [address] [place], [address] Calculated very low density lipoprotein (VLDL) cholesterol measurementOrdered By: Eduard Henley on 01-27-2025 Calculated very low density lipoprotein (VLDL) cholesterol measurement 31 mg/dL 5-40 [facility] LDL calc ser/plasOrdered By: Eduard Henley on 01-27-2025 Cholesterol in LDL [Mass/Vol] 131 mg/dL [facility] Comment on above: Eevxuwtrem=641-762 m g/dL & Higher Uomn=968 mg/dL or greater Laboratory - Miscellaneous t estsOrdered By: Eduard Henley on 01-27-2025 Service comment (Unsp spec) [Interp] Comment . [facility] Comment on above: Levels of Specific I gE Class Description of Class ----- < 0.10 0 Negative 0.10 - 0.31 0/I Equivocal/Low 0.32 - 0.55 I Low 0.56 - 1.40 II Moderate 1.41 - 3.90 III High 3.91 - 19.00 IV Very High 19.01 - 100.00 V Very High >100.00 Very High Lipid Profileon 01-27-2025 CHOL:HDL 2.83 Normal [facility] Comment on above: Order Comment: Order Date: 10/01/24 Order Info: [id number] - LIPID Performed By: #### L 500.4100 #### [facility] Laboratory [address] [place], [address] Cholesterol [Mass/Vol] 251 mg/dL High <=200 [facility] Comment on above: Order Comment: Order Date: 10/01/24 Order Info: [id number] - LIPID Result Comment: Chol esterol level, Desirable <200 mg/dL Borderline high cholesterol 200-239 mg/dL High cholesterol >=240 mg/dL Recommendations of the NCEP Adult Treatment Panel for the following risk-cutoff thresholds for the [place] population. Performed By: #### L 500.4100 #### [facility] Laboratory [address] [place], [address] Cholesterol in HDL [Mass/Vol] 89 mg/dL Normal [facility] Comment on above: Order Comment: Order Date: 10/01/24 Order Info: [id number] - LIPID Result Comment: Anum onal Cholesterol Education Program (NCEP) guidelines: <40 mg/dL: Low HDL-cholesterol (major risk factor for CHD) >= 60 mg/dL: High HDL-cholesterol (negative risk factor for CHD) HDL-cholesterol is affected by a number of factors, e.g. smoking, exercise, hormones, sex and age. Performed By: #### L 500.4100 #### [facility] Laboratory [address] [place], [address] Cholesterol in LDL [Mass/Vol] 131 mg/dL Normal [facility] Comment on above: Order Comment: Order Date: 10/01/24 Order Info: [id number] - LIPID Result Comment: Bord otsvxh=682-848 mg/dL Higher Nzzi=235 mg/dL or greater Performed By: #### L 500.4100 #### [facility] Laboratory [address] [place], [address] Cholesterol in VLDL [Mass/Vol] 31 mg/dL Normal 5-40 [facility] Comment on above: Order Comment: Order Date: 10/01/24 Order Info: [id number] - LIPID Performed By: #### L 500.4100 #### [facility] Laboratory [address] [place], [address] Triglyceride [Mass/Vol] 156 mg/dL Normal [facility] Comment on above: Order Comment: Order Date: 10/01/24 Order Info: [id number] - LIPID Result Comment: The drugs N-Acetylcysteine and Metamizole may falsely depress this assay. Normal range: <150 mg/dL Borderline High: 150-199 mg/dL High: 200-499 mg/dL Very High: >500 mg/dL Performed By: #### L 500.4100 #### [facility] Laboratory [address] [place], [place], [address] Screening total cholesterol/ high density lipoprotein (HDL) cholesterol ratioOrdered By: Eduard Henley on 01-27-2025 Cholesterol.total/Choles terol in HDL [Mass ratio] 2.83 {ratio} [facility] Serum beef IgE antibody assa y (units/volume)Ordered By: Eduard Henley on 01-27-2025 Beef IgE Qn (S) <0.10 kU/L Class 0 [facility] Serum codfish IgE antibody a ssay (units/volume)Ordered By: Eduard Henley on 01-27-2025 Codfish IgE Qn (S) <0.10 kU/L Class [address] [facility] Serum corn IgE antibody assa y (units/volume)Ordered By: Eduard Henley on 01-27-2025 [place] IgE Qn (S) <0.10 kU/L Class 0 [facility] Serum cow milk IgE antibody assay (units/volume)Ordered By: Eduard Henley on 01-27-2025 Cow milk IgE Qn (S) <0.10 kU/L Class 0 [facility] Serum or plasma cholesterol in HDL measurement (mass/volume)Ordered By: Eduard Henley on 01-27-2025 Cholesterol in HDL [Mass/Vol] 89 mg/dL >40 [facility] Comment on above: National Cholesterol Education Program (NCEP) guidelines:<40 mg/dL: Low HDL-cholesterol (major risk factor for CHD)>= 60 mg/dL: High HDL-cholesterol (negative risk factor for CHD)HDL-cholesterol is affected by a number of factors, e.g. smoking, exercise, hormones, sex and age. Serum or plasma cholesterol measurement (mass/volume)Ordered By: Eduard Henley on 01-27-2025 Cholesterol [Mass/Vol] 251 mg/dL High <201 [facility] Comment on above: Cholesterol level, D esirable <200 mg/dLBorderline high cholesterol 200-239 mg/dLHigh cholesterol >=240 mg/dLRecommendations of the NCEP Adult Treatment Panel for the following risk-cutoff thresholds for the [place] population. Serum peanut IgE antibody as say (units/volume)Ordered By: Eduard Henley on 01-27-2025 Peanut IgE Qn (S) <0.10 kU/L Class 0 [facility] Serum pork IgE antibody assa y (units/volume)Ordered By: Eduard Henley on 01-27-2025 Pork IgE Qn (S) <0.10 kU/L Class 0 [facility] Serum salmon IgE antibody as say (units/volume)Ordered By: Eduard Henley on 01-27-2025 [place] IgE Qn (S) <0.10 kU/L Class 0 [facility] Serum soybean IgE antibody a ssay (units/volume)Ordered By: Eduard Henley on 01-27-2025 Soybean IgE Qn (S) <0.10 kU/L Class [address] [facility] Serum tuna IgE antibody assa y (units/volume)Ordered By: Eduard Henley on 01-27-2025 Tuna IgE Qn (S) <0.10 kU/L Class 0 [facility] Serum wheat IgE antibody ass ay (units/volume)Ordered By: Eduard Henley on 01-27-2025 Wheat IgE Qn (S) <0.10 kU/L Class 0 [facility] Serum whole egg IgE antibody assay (units/volume)Ordered By: Eduard Henley on 01-27-2025 Whole Egg IgE Qn (S) <0.10 kU/L Class 0 [facility] Comment on above: Performed at: [facility] - L [address] [id number] Director: Brandie Dial MD, Phone: [phone] Triglycerides measurementOrd ered By: Eduard Henley on 01-27-2025 Triglyceride [Mass/Vol] 156 mg/dL <199 [facility] Comment on above: The drugs N-Acetylcy steine and Metamizole may falsely depress this assay. Normal range: <150 mg/dLBorderline High: 150-199 mg/dLHigh: 200-499 mg/dLVery High: >500 mg/dL Vitamin B12on 01-27-2025 Cobalamin (Vitamin B12) [Mass/Vol] 743 pg/mL Normal 180-914 [facility] Comment on above: Order Comment: Order Date: 10/01/24Order Info: [id number] - LIPID Performed By: #### L 500.2500, L500.3400 #### [facility] Laboratory [address] [place], [address] Vitamin B12 ser/plasOrdered By: Eduard Henley on 01-27-2025 Cobalamin (Vitamin B12) [Mass/Vol] 743 pg/mL 180-914 [facility] 12 Lead EKGon 01-22-2025 12 Lead EKG [facility] Cardi[facility] Services [address] [place] [address] 12 Lead EKG 01/22/25 1351 MR#: [id number] Acct: [id number] Name: JOVANY MUÑIZ Rep #: [id number] : 1965 59 From: Jose Lockwood MD [...] Normal ECG Confirmed by MANDIE SY, JOSE ([id number]), commissioning editor JOY PAULSON ([id number]) on 01/25/2025 7:48:42 AM Referred By: ISHA/RUSLAN Confirmed By: JOSE LOCKWOOD MD 01/25/2548 Date Jose Lockwood MD CC: Dr. Eduard Henley MD; Dr. Robert Mercer MD Signed Normal [facility] Absolute lymphocyte countOrd ered By: ED PROVIDER on 01-22-2025 Lymphocytes Auto (Unsp spec) [#/Vol] 1.12 10*3/uL 0.83-4.51 [facility] Absolute neutrophil countOrd ered By: ED PROVIDER on 01-22-2025 Neutrophils (Bld) [#/Vol] 3.3 10*3/uL 2.0-7.7 [facility] Anion gap in Serum or Plasma Ordered By: ED PROVIDER on 01-22-2025 Anion gap [Moles/Vol] 14 mmol/L 5-15 [facility] Automated blood erythrocyte countOrdered By: ED PROVIDER on 01-22-2025 RBC (Bld) [#/Vol] 4.48 10*6/uL Low 4.6-6.2 [facility] Comment on above: Performed By: #### L 500.4050, L501.9910, L506.1000, L503.0105, L500.4100 #### [facility] Laboratory [address] [place], [address] Automated blood hematocrit ( percentage)Ordered By: ED PROVIDER on 01-22-2025 Hematocrit (Bld) [Volume fraction] 43.5 % Normal 40-54 [facility] Comment on above: Performed By: #### L 500.4050, L501.9910, L506.1000, L503.0105, L500.4100 #### [facility] Laboratory [address] [place], [place], [address] Automated lymphocyte count a s percentage of total leukocytesOrdered By: ED PROVIDER on 01-22-2025 Lymphocytes/100 WBC Auto (Unsp spec) 22.1 % 19-41 [facility] BUN/creatinine ratioOrdered By: ED PROVIDER on 01-22-2025 Urea nitrogen/Creatinine [Mass ratio] 11.0 mg/mg 10-20 [facility] Basic Metabolic Profile (BMP )on 01-22-2025 BUN/CRE 11.0 RATIO Normal 10-20 [facility] Comment on above: Performed By: #### L 500.4050, L501.9910, L506.1000, L503.0105, L500.4100 #### [facility] Laboratory [address] [place], [address] ECRCL 76.71 ml/min Normal 50-250 [facility] Comment on above: Performed By: #### L 500.4050, L501.9910, L506.1000, L503.0105, L500.4100 #### [facility] Laboratory [address] [place], [address] GAP 14 Normal 5-15 [facility] Comment on above: Performed By: #### L 500.4050, L501.9910, L506.1000, L503.0105, L500.4100 #### [facility] Laboratory [address] [place], [address] Potassium [Moles/Vol] 4.8 mmol/L Normal 3.3-5.1 [facility] Comment on above: Result Comment: Hemo lysis present, Results??could be affected. ?? Performed By: #### L 500.4050, L501.9910, L506.1000, L503.0105, L500.4100 #### [facility] Laboratory [address] [place], [address] Basophil percentageOrdered B y: ED PROVIDER on 01-22-2025 Basophils/100 WBC (Bld) 0.8 % Normal 0-1 [facility] Comment on above: Performed By: #### L 500.4050, L501.9910, L506.1000, L503.0105, L500.4100 #### [facility] Laboratory [address] [place], [address] CBC W/Diff, Automatedon 06-08 14-2024 Absolute Lymph 1.12 X10 3/uL Normal 0.83-4.51 [facility] Comment on above: Performed By: #### L 500.4050, L501.9910, L506.1000, L503.0105, L500.4100 #### [facility] Laboratory [address] [place], [address] Absolute Neut 3.3 X10 3/uL Normal 2.0-7.7 [facility] Comment on above: Performed By: #### L 500.4050, L501.9910, L506.1000, L503.0105, L500.4100 #### [facility] Laboratory [address] [place], [address] IG% 0.400 Normal 0.0-0.9 [facility] Comment on above: Result Comment: IG% - Immature Granulocytes (promyelocytes, myelocytes and metamyelocytes) > 1% indicates that a LEFT SHIFT is Present. Performed By: #### L 500.4050, L501.9910, L506.1000, L503.0105, L500.4100 #### [facility] Laboratory [address] [place], [address] Lymphocytes/100 WBC (Bld) 22.1 % Normal 19-41 [facility] Comment on above: Performed By: #### L 500.4050, L501.9910, L506.1000, L503.0105, L500.4100 #### [facility] Laboratory [address] [place], [address] Nucleated RBC (Bld) [#/Vol] 0 10*3/uL Normal 0-5 [facility] Comment on above: Performed By: #### L 500.4050, L501.9910, L506.1000, L503.0105, L500.4100 #### [facility] Laboratory [address] [place], [address] RDW SD 46.8 fl High 35.1-43.9 [facility] Comment on above: Performed By: #### L 500.4050, L501.9910, L506.1000, L503.0105, L500.4100 #### [facility] Laboratory [address] [place] [place], [address] Carbon dioxide, total [Moles /volume] in Central venous bloodOrdered By: ED PROVIDER on 01-22-2025 CO2 [Moles/Vol] 21.7 mmol/L Normal 21.0-32.0 [facility] Comment on above: Performed By: #### L 500.4050, L501.9910, L506.1000, L503.0105, L500.4100 #### [facility] Laboratory [address] [place], [address] Chest 1 View (Portable)on Chest 1 View (Portable) [facility] Services [address] [place] [address] Chest 1 View (Portable) MR#: [id number] Acct: [id number] Name: JOVANY MUÑIZ Rep #: [id number] : 1965 M 59 From: Rachael Santos nd, MD PCP: Dr. Eduard Henley MD Status: REG ER Study: Chest 1 View (Portable) Date of Exam: 01/22/25 Exam# [id number] Ordering Dr: Robert Mercer MD PROCEDURE: CHEST 1 VIEW (PORTABLE) 01/22/2025 REASON FOR EXAM: CHEST PAIN TECHNIQUE: Frontal view of the chest. COMPARISON: Chest radiograph 09/03/2024. FINDINGS: Hardware: None. Heart: The heart size is normal. Lungs: No focal consolidation, pleural effusion or pneumothorax. Bones: Degenerative changes are identified within the thoracic spine. RAD/Chest 1 View (Portable) IMPRESSION: Negative Chest. Reading Location: [id number] CC: Dr. Eduard Henley MD; Dr. Robert Mercer MD Associate Creative Director: Signed Normal [facility] Chloride assayOrdered By: ED PROVIDER on 01-22-2025 Chloride [Moles/Vol] 103 mmol/L Normal 98-108 [facility] Comment on above: Performed By: #### L 500.4050, L501.9910, L506.1000, L503.0105, L500.4100 #### [facility] Laboratory [address] [place], [address] Emergency Department Summary on 01-22-2025 Emergency Department Summary [facility] Medical Records Department [address] [place] [address] Emergency Department Summary 01/22/25 MR#: [id number] Acct: [id number] Name: JOVANY MUÑIZ Rep #: [id number] : 1965 59 From: Robert Mercer MD PCP: Dr. Eduard Henley MD Status:REG ER Location: ED HPI History of Present Illness Chief Complaint: Allergic Reaction Informant: patient and spouse/S.O. Onset/Context/Shad garcia Onset: Today Context: Sudden Onset Timing: Continuous Current Severity: Moderate Maximum Severity: Moderate Narrative Narrative: 59-year-old male history of CAD [place] stent. 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 (more content not included)... Normal [facility] Emergency Department Summary [facility] Medical Records Department [address] [place] [address] Emergency Department Summary 01/22/25 MR#: [id number] Acct: [id number] Name: JOVANY MUÑIZ Rep #: [id number] : 1965 59 From: Robert Mercer MD [...] TAD Risk Factors: Negative for Marfan's Syndrome 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 Normal [facility] Eosinophil percentageOrdered By: ED PROVIDER on 01-22-2025 Eosinophils/100 WBC (Bld) 2.4 % Normal 0-5 [facility] Comment on above: Performed By: #### L 500.4050, L501.9910, L506.1000, L503.0105, L500.4100 #### [facility] [address] [place], [address] Erythrocyte distribution wid th ratioOrdered By: ED PROVIDER on 01-22-2025 Erythrocyte distribution width (RBC) [Ratio] 13.0 % Normal 11.6-14.6 [facility] Comment on above: Performed By: #### L 500.4050, L501.9910, L506.1000, L503.0105, L500.4100 #### [facility] [address] [place], [address] Erythrocyte distribution wid th standard deviationOrdered By: ED PROVIDER on 01-22-2025 Erythrocyte distribution width (RBC) [Ratio] 46.8 fl High 35.1-43.9 [facility] Glomerular filtration rate ( GFR) estimation/1.73 sq m using serum, plasma, or whole bOrdered By: ED PROVIDER on 01-22-2025 GFR/1.73 sq M.predicted among non-blacks MDRD (S/P/Bld) [Vol rate/Area] 76 mL/min/{1.73_m2} Normal >60 [facility] Comment on above: mL/min/1.73m2 CKD-EP I Creatinine Equation (2020) Result Comment: mL/m in/1.73m2 CKD-EPI Creatinine Equation (2020) Performed By: #### L 500.4050, L501.9910, L506.1000, L503.0105, L500.4100 #### [facility] [address] [place], [address] Hemoglobin measurementOrdere d By: ED PROVIDER on 01-22-2025 Hemoglobin (Bld) [Mass/Vol] 14.9 g/dL Normal 13.0-16.5 [facility] Comment on above: Performed By: #### L 500.4050, L501.9910, L506.1000, L503.0105, L500.4100 #### [facility] [address] [place], [address] Immature granulocytes/100 WB C Auto (Bld)Ordered By: ED PROVIDER on 01-22-2025 Immature granulocytes/100 WBC (Bld) 0.400 % 0.0-0.9 [facility] Comment on above: IG% - Immature Granu locytes (promyelocytes, myelocytes and metamyelocytes) > 1% indicates that a LEFT SHIFT is Present. L499.0042on 01-22-2025 Trop T High Sen < 6 Normal <=22 [facility] Comment on above: Performed By: #### L 500.4050, L501.9910, L506.1000, L503.0105, L500.4100 #### [facility] [address] [place], [address] L499.0043on 01-22-2025 Trop T High Sen Normal <=22 [facility] Comment on above: Result Comment: PABLITO ENT DISCHARGED Performed By: #### L 500.2500, L500.3400 #### [facility] [address] [place], [address] L501.4021on 01-22-2025 Trop T High Sen < 6 Normal <=22 [facility] Comment on above: Result Comment: Hemo lysis present, Results??could be affected. ?? Performed By: #### L 500.4050, L501.9910, L506.1000, L503.0105, L500.4100 #### [facility] [address] [place], [address] MCV (mean corpuscular volume ) determinationOrdered By: ED PROVIDER on 01-22-2025 MCV (RBC) [Entitic vol] 97.1 fL High 80-94 [facility] Comment on above: Performed By: #### L 500.4050, L501.9910, L506.1000, L503.0105, L500.4100 #### [facility] [address] [place], [address] Mean corpuscular hemoglobin (MCH) determinationOrdered By: ED PROVIDER on 01-22-2025 MCH (RBC) [Entitic mass] 33.3 pg High 27.0-32.0 [facility] Comment on above: Performed By: #### L 500.4050, L501.9910, L506.1000, L503.0105, L500.4100 #### [facility] [address] [place], [address] Mean corpuscular hemoglobin concentration (MCHC) determinationOrdered By: ED PROVIDER on 01-22-2025 MCHC (RBC) [Mass/Vol] 34.3 g/dL Normal 32-36 [facility] Comment on above: Performed By: #### L 500.4050, L501.9910, L506.1000, L503.0105, L500.4100 #### [facility] [address] [place], [address] Mean platelet volume determi nationOrdered By: ED PROVIDER on 01-22-2025 Platelet mean volume (Bld) [Entitic vol] 9.4 fL Normal 6.2-12.0 [facility] Comment on above: Performed By: #### L 500.4050, L501.9910, L506.1000, L503.0105, L500.4100 #### [facility] [address] [place], [address] Monocyte percentageOrdered B y: ED PROVIDER on 01-22-2025 Monocytes/100 WBC (Bld) 10.1 % High 0-10 [facility] Comment on above: Performed By: #### L 500.4050, L501.9910, L506.1000, L503.0105, L500.4100 #### [facility] [address] [place], [address] Neutrophil percentageOrdered By: ED PROVIDER on 01-22-2025 Neutrophils/100 WBC (Bld) 64.2 % Normal 47-70 [facility] Comment on above: Performed By: #### L 500.4050, L501.9910, L506.1000, L503.0105, L500.4100 #### [facility] [address] [place], [address] Nucleated red blood cell per centageOrdered By: ED PROVIDER on 01-22-2025 Nucleated RBC/100 WBC (Bld) [Ratio] 0 % 0-5 [facility] Platelet countOrdered By: ED PROVIDER on 01-22-2025 Platelets (Bld) [#/Vol] 211 10*3/uL Normal 150-450 [facility] Comment on above: Performed By: #### L 500.4050, L501.9910, L506.1000, L503.0105, L500.4100 #### [facility] [address] [place], [address] Potassium measurement (mass/ volume)Ordered By: ED PROVIDER on 01-22-2025 Potassium (Unsp spec) [Mass/Vol] 4.8 mmol/L 3.3-5.1 [facility] Comment on above: Hemolysis present, R esults could be affected. Serum creatinine measurement (mass/volume)Ordered By: ED PROVIDER on 01-22-2025 Creatinine [Mass/Vol] 1.11 mg/dL Normal 0.70-1.20 [facility] Comment on above: Performed By: #### L 500.4050, L501.9910, L506.1000, L503.0105, L500.4100 #### [facility] [address] [place], [address] Serum glucose measurement (m ass/volume)Ordered By: ED PROVIDER on 01-22-2025 Glucose [Mass/Vol] 97 mg/dL Normal 70-99 [facility] Comment on above: Performed By: #### L 500.4050, L501.9910, L506.1000, L503.0105, L500.4100 #### [facility] [address] [place], [address] Serum or plasma calcium randa urement (mass/volume)Ordered By: ED PROVIDER on 01-22-2025 Calcium [Mass/Vol] 9.5 mg/dL Normal 7.6-11.0 [facility] Comment on above: Performed By: #### L 500.4050, L501.9910, L506.1000, L503.0105, L500.4100 #### [facility] [address] [place], [address] Serum or plasma urea nitroge n measurement (mass/volume)Ordered By: ED PROVIDER on 01-22-2025 Urea nitrogen [Mass/Vol] 12 mg/dL Normal 4-19 [facility] Comment on above: Performed By: #### L 500.4050, L501.9910, L506.1000, L503.0105, L500.4100 #### [facility] [address] [place], [place], [id number] Sodium levelOrdered By: ED P HELADIO on 01-22-2025 Sodium [Moles/Vol] 139 mmol/L Normal 133-145 [facility] Comment on above: Performed By: #### L 500.4050, L501.9910, L506.1000, L503.0105, L500.4100 #### [facility] [address] [place], [place], [id number] Troponin T.cardiac [Mass/vol ume] in Serum or Plasma by High sensitivity methodOrdered By: Robert Mercer on 01-22-2025 Troponin T.cardiac High sensitivity method [Mass/Vol] < 6 ng/L <22 [facility] Comment on above: Hemolysis present, R esults could be affected. White blood cell (WBC) count Ordered By: ED PROVIDER on 01-22-2025 WBC (Bld) [#/Vol] 5.1 10*3/uL Normal 4.4-11.0 [facility] Comment on above: Performed By: #### L 500.4050, L501.9910, L506.1000, L503.0105, L500.4100 #### [facility] [address] [place], [place], [address] Urgent Care Visit Reporton 0 11-09-2024 Urgent Care Visit Report [facility] [address], [address] [place], [place] [address] OFFICE VISIT Date of Service: 11/09/24 MR#: [id number] Acct: [id number] Name: JOVANY MUÑIZ Rep #: [id number] : 1965 Provider: FANTA Driscoll Age/Sex: 59/M Location: [facility] Status: Signed Intake Vital Signs 09/03/24 00:23 [...] mg PO QDAY 08/06/24 10/27/24 His tory [facility] Medical History Wears partial dentures High cholesterol Heartburn Gastric reflux History of diverticulitis Former smoker History of heart attack History of echocardiogram History of stress test Hypertension Cardiology follow-up encounter Sigmoid diverticulitis History of coronary artery disease Presence of stent in coronary artery (04/25/23) Essential hypertension HLD (hyperlipidemia) 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 Eduard Henley MD Status: REG CLI Referring Dr: Mitchell Dubois NP, NP-Cliff Sex: M C Stress Test Report Exercise [...] 11/03/241806 Date _ Jose Lockwood MD CC: STRIPPER SHOVEL OPERATOR-C Mitchell Dubois; Dr. Eduard Henley MD ~ Date Dictated: 11/03/241804 Date Transcribed: 11/03/241804 Associate Creative Director: CO Signed [facility] Work Phone: Stress Reporton 11-03-2024 Stress Report [facility] [address] [place] [address] MR#: [id number] Acct: [id number] Name: JOVANY MUÑIZ Rep #: [id number] : 1965 59 From: Jose Lockwood MD Primary Care: Dr. Eduard Henley MD Status: REG CLI Referring Dr: Mitchell Dubois NP STRIPPER SHOVEL OPERATOR-C Sex: M C Stress Test Report Exercise [...] MD Date Dictated: 11/03/241804 Date Transcribed: 11/03/241804 Associate Creative Director: CO Signed Normal [facility] Vitamin D,25 Hydroxyon 09-30 Vitamin D 25-OH 35.3 ng/mL Normal [facility] Comment on above: Order Comment: Order Date: 09/28/24 Order Info: [id number] - B12 Order Info: [id number] - VITD25 Result Comment: Mayte min D 25(OH) Status Range Deficiency <20 ng/mL (50nmol/L) Insufficiency 20 - 30 ng/mL (50 - 75 nmol/L) Sufficiency 30 - 100 ng/mL (75 - 250 nmol/L) Toxicity >100 ng/mL (>250 nmol/L) Performed By: #### L 500.4050, L501.9910, L506.1000, L503.0105, L500.4100 #### [facility] [address] [place], [place] [address], [address] [id number]-OV-Lqfeclo DOrdered By: Cliff Henley on 09-28-2024 Vitamin D 25-Hydroxy 35.3 ng/mL [facility] Comment on above: Vitamin D 25(OH) Sta tus Range Deficiency <20 ng/mL (50nmol/L) Insufficiency 20 - 30 ng/mL (50 - 75 nmol/L) Sufficiency 30 - 100 ng/mL (75 - 250 nmol/L) Toxicity >100 ng/mL (>250 nmol/L) Albumin to globulin ratioOrd ered By: Eduard Henley on 09-28-2024 Albumin/Globulin [Mass ratio] 0.8 {ratio} Low 0.9-2.4 [facility] Bilirubin, totalOrdered By: Eduard Henley on 09-28-2024 Bilirubin [Mass/Vol] 0.50 mg/dL 0.20-1.00 [facility] Comment on above: For patients on eltr ombopag therapy, use of Dimension [place] TBIL is not recommended. Blood urea nitrogen (BUN)/cr eatinine ratioOrdered By: Eduard Henley on 09-28-2024 Urea nitrogen/Creatinine [Mass ratio] 15.0 mg/mg 10-20 [facility] Carbon dioxide measurementOr dered By: Eduard Henley on 09-28-2024 CO2 [Moles/Vol] 28.0 mmol/L 21.0-32.0 [facility] Chloride measurementOrdered By: Eduard Henley on 09-28-2024 Chloride [Moles/Vol] 104 mmol/L 98-107 [facility] Comprehensive Metabolic Prof ilon 09-28-2024 Albumin [Mass/Vol] 3.7 g/dL Normal 3.2-5.0 [facility] Comment on above: Order Comment: Order Date: 09/28/24 Order Info: [id number] - CMP Order Info: [id number] - LIPID Order Info: [id number] - PSA Performed By: #### L 500.4050, L501.9910, L506.1000, L503.0105, L500.4100 #### [facility] [address] [place], [place], [id number] Albumin/Globulin [Mass ratio] 0.8 {ratio} Low 0.9-2.4 [facility] Comment on above: Order Comment: Order Date: 09/28/24 Order Info: [id number] - CMP Order Info: [id number] - LIPID Order Info: [id number] - PSA Performed By: #### L 500.4050, L501.9910, L506.1000, L503.0105, L500.4100 #### [facility] [address] [place], [place], [id number] ALK P 66 U/L Normal 45-117 [facility] Comment on above: Order Comment: Order Date: 09/28/24 Order Info: [id number] - CMP Order Info: [id number] - LIPID Order Info: [id number] - PSA Performed By: #### L 500.4050, L501.9910, L506.1000, L503.0105, L500.4100 #### [facility] [address] [place], [address] ALT [Catalytic activity/Vol] 38 U/L Normal 16-61 [facility] Comment on above: Order Comment: Order Date: 09/28/24 Order Info: [id number] - CMP Order Info: [id number] - LIPID Order Info: [id number] - PSA Performed By: #### L 500.4050, L501.9910, L506.1000, L503.0105, L500.4100 #### [facility] [address] [place], [address] AST [Catalytic activity/Vol] 29 U/L Normal 15-37 [facility] Comment on above: Order Comment: Order Date: 09/28/24 Order Info: [id number]- - CMP Order Info: [id number] - LIPID Order Info: [id number] - PSA Performed By: #### L 500.4050, L501.9910, L506.1000, L503.0105, L500.4100 #### [facility] [address] [place], [address] Bilirubin [Mass/Vol] 0.50 mg/dL Normal 0.20-1.00 [facility] Comment on above: Order Comment: Order Date: 09/28/24 Order Info: [id number]- - CMP Order Info: [id number] - LIPID Order Info: [id number] - PSA Result Comment: For patients on eltrombopag therapy, use of Dimension [place] TBIL is not recommended. Performed By: #### L 500.4050, L501.9910, L506.1000, L503.0105, L500.4100 #### [facility] [address] [place], [address] BUN/CRE 15.0 RATIO Normal 10-20 [facility] Comment on above: Order Comment: Order Date: 09/28/24 Order Info: [id number]- - CMP Order Info: [id number] - LIPID Order Info: [id number] - PSA Performed By: #### L 500.4050, L501.9910, L506.1000, L503.0105, L500.4100 #### [facility] [address] [place], [address] CA,Total 9.9 mg/dL Normal 8.5-10.1 [facility] Comment on above: Order Comment: Order Date: 09/28/24 Order Info: [id number]- - CMP Order Info: [id number] - LIPID Order Info: [id number] - PSA Performed By: #### L 500.4050, L501.9910, L506.1000, L503.0105, L500.4100 #### [facility] [address] [place], [address] Chloride [Moles/Vol] 104 mmol/L Normal 98-107 [facility] Comment on above: Order Comment: Order Date: 09/28/24 Order Info: [id number] - CMP Order Info: [id number] - LIPID Order Info: [id number] - PSA Performed By: #### L 500.4050, L501.9910, L506.1000, L503.0105, L500.4100 #### [facility] [address] [place], [address] CO2 [Moles/Vol] 28.0 mmol/L Normal 21.0-32.0 [facility] Comment on above: Order Comment: Order Date: 09/28/24 Order Info: [id number]- - CMP Order Info: [id number] - LIPID Order Info: [id number] - PSA Performed By: #### L 500.4050, L501.9910, L506.1000, L503.0105, L500.4100 #### [facility] [address] [place], [address] Creatinine [Mass/Vol] 1.20 mg/dL Normal 0.70-1.30 [facility] Comment on above: Order Comment: Order Date: 09/28/24 Order Info: [id number] - CMP Order Info: - LIPID Order Info: [id number] - PSA Result Comment: The validity of the calculated GFR GFRAA in patients over 70 years has not been determined. Clinical correlation is essential. Performed By: #### L 500.4050, L501.9910, L506.1000, L503.0105, L500.4100 #### [facility] [address] [place], [address] EST GFR - AA 79 mL/min Normal >60 [facility] Comment on above: Order Comment: Order Date: 09/28/24 Order Info: [id number] - CMP Order Info: - LIPID Order Info: [id number] - PSA Result Comment: Afri can Togolese GFR Calc Performed By: #### L 500.4050, L501.9910, L506.1000, L503.0105, L500.4100 #### [facility] [address] [place], [address] GAP 5 Normal 5-15 [facility] Comment on above: Order Comment: Order Date: 09/28/24 Order Info: [id number] - CMP Order Info: - LIPID Order Info: [id number] - PSA Performed By: #### L 500.4050, L501.9910, L506.1000, L503.0105, L500.4100 #### [facility] [address] [place], [address] GFR/1.73 sq M.predicted among non-blacks MDRD (S/P/Bld) [Vol rate/Area] 65 mL/min/{1.73_m2} Normal >60 [facility] Comment on above: Order Comment: Order Date: 09/28/24 Order Info: [id number] - CMP Order Info: - LIPID Order Info: [id number] - PSA Result Comment: Non- GFR Calc Performed By: #### L 500.4050, L501.9910, L506.1000, L503.0105, L500.4100 #### [facility] [address] [place], [address] Globulin (S) [Mass/Vol] 4.8 g/dL High 2.2-4.2 [facility] Comment on above: Order Comment: Order Date: 09/28/24 Order Info: [id number] - CMP Order Info: [id number] - LIPID Order Info: [id number] - PSA Performed By: #### L 500.4050, L501.9910, L506.1000, L503.0105, L500.4100 #### [facility] [address] [place], [address] Glucose [Mass/Vol] 105 mg/dL Normal 74-106 [facility] Comment on above: Order Comment: Order Date: 09/28/24 Order Info: [id number]- - CMP Order Info: [id number] - LIPID Order Info: [id number] - PSA Result Comment: Fast ing Glucose result from 100 to 125 mg/dL suggests IMPAIRED HOMEOSTASIS per A.D.A. criteria. Performed By: #### L 500.4050, L501.9910, L506.1000, L503.0105, L500.4100 #### [facility] [address] [place], [address] Potassium [Moles/Vol] 4.4 mmol/L Normal 3.5-5.1 [facility] Comment on above: Order Comment: Order Date: 09/28/24 Order Info: [id number] - CMP Order Info: [id number] - LIPID Order Info: [id number] - PSA Performed By: #### L 500.4050, L501.9910, L506.1000, L503.0105, L500.4100 #### [facility] [address] [place], [address] Sodium [Moles/Vol] 138 mmol/L Normal 136-145 [facility] Comment on above: Order Comment: Order Date: 09/28/24 Order Info: [id number] - CMP Order Info: [id number] - LIPID Order Info: [id number] - PSA Performed By: #### L 500.4050, L501.9910, L506.1000, L503.0105, L500.4100 #### [facility] [address] [place], [place], [address] T PROT 8.5 g/dL High 6.4-8.2 [facility] Comment on above: Order Comment: Order Date: 09/28/24 Order Info: [id number] - CMP Order Info: [id number] - LIPID Order Info: [id number] - PSA Performed By: #### L 500.4050, L501.9910, L506.1000, L503.0105, L500.4100 #### [facility] [address] [place], [address] Urea nitrogen [Mass/Vol] 18 mg/dL Normal - [facility] Comment on above: Order Comment: Order Date: 09/28/24 Order Info: [id number] - CMP Order Info: [id number] - LIPID Order Info: [id number] - PSA Performed By: #### L 500.4050, L501.9910, L506.1000, L503.0105, L500.4100 #### [facility] [address] [place], [place], [address] Estimated glomerular filtrat ion rate (GFR) AmericanOrdered By: Eduard Henley on 09-28-2024 Estimated GFR (MDRD) Amer 79 mL/min >60 [facility] Comment on above: GFR Calc Glomerular filtration rate ( GFR) estimationOrdered By: Eduard Henley on 09-28-2024 Estimated GFR (MDRD) Non-Af Amer 65 mL/min >60 [facility] Comment on above: Non- GFR Calc GFR/1.73 sq M.predicted among non-blacks MDRD (S/P/Bld) [Vol rate/Area] 65 mL/min/{1.73_m2} >60 [facility] Comment on above: Non- GFR Calc Glucose measurementOrdered B y: Neerajotis Kale on 09-28-2024 Glucose [Mass/Vol] 105 mg/dL 74-106 [facility] Comment on above: Fasting Glucose resu lt from 100 to 125 mg/dL suggests IMPAIRED HOMEOSTASIS per A.D.A. criteria. High density lipoprotein (HD L) measurementOrdered By: Eduard Henley on 09-28-2024 Cholesterol in HDL [Mass/Vol] 81 mg/dL >40 [facility] Comment on above: The drugs N-Acetylcy steine and Metamizole may falsely depress this assay. Reference Range HDL <40 mg/dL Low HDL Cholesterol HDL >or= 60 mg/dL High HDL Cholesterol Laboratory - Chemistry and C hemistry - challengeOrdered By: Eduard Henley on 09-28-2024 AST [Catalytic activity/Vol] 29 U/L 15-37 [facility] Lipid Profileon 09-28-2024 Cholesterol [Mass/Vol] 245 mg/dL High 200 [facility] Comment on above: Order Comment: Order Date: 09/28/24 Order Info: [id number] - CMP Order Info: [id number] - LIPID Order Info: [id number] - PSA Result Comment: <200 mg/dL Desirable 200-240 mg/dL Borderline >240 mg/dL High Risk Performed By: #### L 500.4050, L501.9910, L506.1000, L503.0105, L500.4100 #### [facility] [address] [place] [address]. [place], [address] Cholesterol in HDL [Mass/Vol] 81 mg/dL Normal [facility] Comment on above: Order Comment: Order Date: 09/28/24 Order Info: [id number] - CMP Order Info: [id number] - LIPID Order Info: [id number] - PSA Result Comment: The drugs N-Acetylcysteine and Metamizole may falsely depress this assay. Reference Range HDL <40 mg/dL Low HDL Cholesterol HDL >or= 60 mg/dL High HDL Cholesterol Performed By: #### L 500.4050, L501.9910, L506.1000, L503.0105, L500.4100 #### [facility] [address] [place], [address] Cholesterol in LDL [Mass/Vol] 144 mg/dL High 0-130 [facility] Comment on above: Order Comment: Order Date: 09/28/24 Order Info: [id number] - CMP Order Info: [id number] - LIPID Order Info: [id number] - PSA Performed By: #### L 500.4050, L501.9910, L506.1000, L503.0105, L500.4100 #### [facility] [address] [place], [address] Cholesterol in VLDL [Mass/Vol] 20 mg/dL Normal 5-40 [facility] Comment on above: Order Comment: Order Date: 09/28/24 Order Info: [id number]- - CMP Order Info: [id number] - LIPID Order Info: [id number] - PSA Performed By: #### L 500.4050, L501.9910, L506.1000, L503.0105, L500.4100 #### [facility] [address] [place], [address] Triglyceride [Mass/Vol] 101 mg/dL Normal [facility] Comment on above: Order Comment: Order Date: 09/28/24 Order Info: [id number] - CMP Order Info: [id number] - LIPID Order Info: [id number] - PSA Result Comment: The drugs N-Acetylcysteine and Metamizole may falsely depress this assay. Serum Triglycerides Reference Interval Normal <150 mg/dL Borderline high 150 - 199 mg/dL High 200 - 499 mg/dL Very High > or = 500 mg/dL Performed By: #### L 500.4050, L501.9910, L506.1000, L503.0105, L500.4100 #### [facility] [address] [place], [address] Low density lipoprotein (LDL ) cholesterol measurementOrdered By: Eduard Henley on 09-28-2024 Cholesterol in LDL [Mass/Vol] 144 mg/dL High 0-130 [facility] PSA,Total - Annual Screenon 09-28-2024 PSA,TOT SCREEN 0.78 ng/mL Normal 0.00-4.00 [facility] Comment on above: Order Comment: Order Date: 09/28/24 Order Info: [id number] - CMP Order Info: [id number] - LIPID Order Info: [id number] - PSA Result Comment: This test was performed using the TPSA assay method for the [employer] chemistry system. Values obtained with different assay methods cannot be used interchangably. When changing PSA assays in the course of monitoring a patient, additional sequential testing should be carried out to confirm baseline values. Performed By: #### L 500.4050, L501.9910, L506.1000, L503.0105, L500.4100 #### [facility] [place], [address] Potassium measurementOrdered By: Eduard Henley on 09-28-2024 Potassium [Moles/Vol] 4.4 mmol/L 3.5-5.1 [facility] Screening prostate specific antigen (PSA) measurementOrdered By: Eduard Henley on 09-28-2024 Prostate Specific Antigen Screen 0.78 ng/mL 0.00-4.00 [facility] Comment on above: This test was perfor med using the TPSA assay method for [employer] chemistry system. Values obtained with differentassay methods cannot be used interchangably.When changing PSA assays in the course of monitoring apatient, additional sequential testing should be carriedout to confirm baseline values. Serum anion gap measurementO rdered By: Eduard Henley on 09-28-2024 Anion gap [Moles/Vol] 5 mmol/L 5-15 [facility] Serum globulin measurementOr dered By: Eduard Henley on 09-28-2024 Globulin (S) [Mass/Vol] 4.8 g/dL High 2.2-4.2 [facility] Serum or plasma alanine pedraza otransferase (ALT) measurementOrdered By: Eduard Henley on 09-28-2024 ALT [Catalytic activity/Vol] 38 U/L 16-61 [facility] Serum or plasma albumin randa urement (mass/volume)Ordered By: Eduard Henley on 09-28-2024 Albumin [Mass/Vol] 3.7 g/dL 3.2-5.0 [facility] Serum or plasma alkaline saw sphatase measurementOrdered By: Eduard Henley on 09-28-2024 ALP [Catalytic activity/Vol] 66 U/L 45-117 [facility] Serum or plasma calcium randa urement (mass/volume)Ordered By: Eduard Henley on 09-28-2024 Calcium [Mass/Vol] 9.9 mg/dL 8.5-10.1 [facility] Serum or plasma cholesterol measurement (mass/volume)Ordered By: Eduard Henley on 09-28-2024 Cholesterol [Mass/Vol] 245 mg/dL High <200 [facility] Comment on above: <200 mg/dL Desirable 200-240 mg/dL Borderline >240 mg/dL High Risk Serum or plasma creatinine m easurement (mass/volume)Ordered By: Eduard Henley on 09-28-2024 Creatinine [Mass/Vol] 1.20 mg/dL 0.70-1.30 [facility] Comment on above: The validity of the calculated GFR & GFRAA in patients over 70 years has not been determined. Clinical correlation is essential. Serum or plasma urea nitroge n measurement (mass/volume)Ordered By: Eduard Henley on 09-28-2024 Urea nitrogen [Mass/Vol] 18 mg/dL 7-18 [facility] Sodium levelOrdered By: Rubina Henley on 09-28-2024 Sodium [Moles/Vol] 138 mmol/L 136-145 [facility] Total proteinOrdered By: Mukesh istopher Henley on 09-28-2024 Protein [Mass/Vol] 8.5 g/dL High 6.4-8.2 [facility] Triglycerides measurementOrd ered By: Eduard Henley on 09-28-2024 Triglyceride [Mass/Vol] 101 mg/dL <199 [facility] Comment on above: The drugs N-Acetylcy steine and Metamizole may falsely depress this assay.Serum Triglycerides Reference Interval Normal <150 mg/dL Borderline high 150 - 199 mg/dL High 200 - 499 mg/dL Very High > or = 500 mg/dL Very low density lipoprotein (VLDL) cholesterol measurementOrdered By: Eduard Henley on 09-28-2024 Very low density lipoprotein (VLDL) cholesterol measurement 20 mg/dL 5-40 [facility] VLDL Cholesterol 20 mg/dL -40 [facility] Vitamin B12on 09-28-2024 Cobalamin (Vitamin B12) [Mass/Vol] 337 pg/mL Normal 211-911 [facility] Comment on above: Order Comment: Order Date: 09/28/24 Order Info: [id number] - B12 Order Info: [id number] - [id number] Performed By: #### L 500.4050, L501.9910, L506.1000, L503.0105, L500.4100 #### [facility] [address] [place], [address] Vitamin B12 measurementOrder ed By: Eduard Henley on 09-28-2024 Cobalamin (Vitamin B12) [Mass/Vol] 337 pg/mL 211-911 [facility] 12 Lead EKGon 09-03-2024 12 Lead EKG [facility] Cardiovascular Services [address] [place] [address] 12 Lead EKG 09/03/24 0023 MR#: [id number] Acct: [id number] Name: JOVANY MUÑIZ Rep #: [id number] : 1965 58 From: Eileen Ray MD [...] Abnormal ECG Confirmed by FLOR SY, GUANAKO ([id number]), commissioning editor RUBI ROMERO ([id number]) on 09/07/2024 7:16:39 AM Referred By: TB Confirmed By: GUANAKO RAY MD 09/07/24 0716 Date Eileen Ray MD CC: Dr. Eduard Henley MD; Dr. Jesus Romero, DO Signed Normal [facility] Absolute neutrophil countOrd ered By: Jesus Romero on 09-03-2024 Neutrophils (Bld) [#/Vol] 3.1 10*3/uL 2.0-7.7 [facility] BNP (brain natriuretic pepti de measurement)Ordered By: Jesus Romero on 09-03-2024 Natriuretic peptide B (Bld) [Mass/Vol] 7.1 pg/mL 0-100 [facility] BNP,B-Type NATRIURETIC PEPTI Torrey 09-03-2024 Natriuretic peptide B (Bld) [Mass/Vol] 7.1 pg/mL Normal 0-100 [facility] Comment on above: Performed By: #### L 500.4050, L501.9910, L506.1000, L503.0105, L500.4100 #### [facility] [address] [place], [place], [id number] Basic Metabolic Profile (BMP )on 09-03-2024 BUN/CRE 14.0 RATIO Normal 10-20 [facility] Comment on above: Order Comment: Order Date: 09/28/24 Order Info: [id number] - CMP Order Info: [id number] - LIPID Order Info: [id number] - PSA Performed By: #### L 500.4050, L501.9910, L506.1000, L503.0105, L500.4100 #### [facility] [address] [place], [place], [id number] CA,Total 9.3 mg/dL Normal 8.5-10.1 [facility] Comment on above: Order Comment: Order Date: 09/28/24 Order Info: [id number] - CMP Order Info: - LIPID Order Info: [id number] - PSA Performed By: #### L 500.4050, L501.9910, L506.1000, L503.0105, L500.4100 #### [facility] [address] [place], [address] Chloride [Moles/Vol] 104 mmol/L Normal 98-107 [facility] Comment on above: Order Comment: Order Date: 09/28/24 Order Info: [id number]- - CMP Order Info: - LIPID Order Info: [id number] - PSA Performed By: #### L 500.4050, L501.9910, L506.1000, L503.0105, L500.4100 #### [facility] [address] [place], [address] CO2 [Moles/Vol] 26.0 mmol/L Normal 21.0-32.0 [facility] Comment on above: Order Comment: Order Date: 09/28/24 Order Info: [id number] - CMP Order Info: - LIPID Order Info: [id number] - PSA Performed By: #### L 500.4050, L501.9910, L506.1000, L503.0105, L500.4100 #### [facility] [address] [place], [address] Creatinine [Mass/Vol] 1.29 mg/dL Normal 0.70-1.30 [facility] Comment on above: Order Comment: Order Date: 09/28/24 Order Info: 07 - CMP Order Info: - LIPID Order Info: [id number] - PSA Result Comment: The validity of the calculated GFR GFRAA in patients over 70 years has not been determined. Clinical correlation is essential. Performed By: #### L 500.4050, L501.9910, L506.1000, L503.0105, L500.4100 #### [facility] [address] [place], [address] ECRCL 73.11 ml/min Normal [facility] Comment on above: Order Comment: Order Date: 09/28/24 Order Info: [id number] - CMP Order Info: - LIPID Order Info: [id number] - PSA Performed By: #### L 500.4050, L501.9910, L506.1000, L503.0105, L500.4100 #### [facility] [address] [place], [place], [address] EST GFR - AA 73 mL/min Normal >60 [facility] Comment on above: Order Comment: Order Date: 09/28/24 Order Info: [id number] - CMP Order Info: - LIPID Order Info: [id number] - PSA Result Comment: Afri can Togolese GFR Calc Performed By: #### L 500.4050, L501.9910, L506.1000, L503.0105, L500.4100 #### [facility] [address] [place], [place], [id number] GAP 8 Normal 5-15 [facility] Comment on above: Order Comment: Order Date: 09/28/24 Order Info: [id number] - CMP Order Info: - LIPID Order Info: [id number] - PSA Performed By: #### L 500.4050, L501.9910, L506.1000, L503.0105, L500.4100 #### [facility] [address] [place], [place], [id number] GFR/1.73 sq M.predicted among non-blacks MDRD (S/P/Bld) [Vol rate/Area] 60 mL/min/{1.73_m2} Normal >60 [facility] Comment on above: Order Comment: Order Date: 09/28/24 Order Info: [id number] - CMP Order Info: - LIPID Order Info: [id number] - PSA Result Comment: Non- GFR Calc Performed By: #### L 500.4050, L501.9910, L506.1000, L503.0105, L500.4100 #### [facility] [address] [place], [address] Glucose [Mass/Vol] 102 mg/dL Normal 74-106 [facility] Comment on above: Order Comment: Order Date: 09/28/24 Order Info: [id number] - CMP Order Info: [id number] - LIPID Order Info: [id number] - PSA Result Comment: Fast ing Glucose result from 100 to 125 mg/dL suggests IMPAIRED HOMEOSTASIS per A.D.A. criteria. Performed By: #### L 500.4050, L501.9910, L506.1000, L503.0105, L500.4100 #### [facility] [address] [place], [address] Potassium [Moles/Vol] 3.8 mmol/L Normal 3.5-5.1 [facility] Comment on above: Order Comment: Order Date: 09/28/24 Order Info: 07 - CMP Order Info: [id number] - LIPID Order Info: [id number] - PSA Result Comment: Slig ht Hemolysis, Result may be falsely increased. Performed By: #### L 500.4050, L501.9910, L506.1000, L503.0105, L500.4100 #### [facility] [address] [place], [address] Sodium [Moles/Vol] 138 mmol/L Normal 136-145 [facility] Comment on above: Order Comment: Order Date: 09/28/24 Order Info: [id number] - CMP Order Info: [id number] - LIPID Order Info: [id number] - PSA Performed By: #### L 500.4050, L501.9910, L506.1000, L503.0105, L500.4100 #### [facility] [address] [place], [address] Urea nitrogen [Mass/Vol] 18 mg/dL Normal 7-18 [facility] Comment on above: Order Comment: Order Date: 09/28/24 Order Info: [id number] - CMP Order Info: [id number] - LIPID Order Info: [id number] - PSA Performed By: #### L 500.4050, L501.9910, L506.1000, L503.0105, L500.4100 #### [facility] [address] [place], [address] Basophil percentageOrdered B y: Jesus Nick on 09-03-2024 Basophils/100 WBC (Bld) 1.2 % High 0-1 [facility] Blood urea nitrogen (BUN)/cr eatinine ratioOrdered By: Jesus Romero on 09-03-2024 Urea nitrogen/Creatinine [Mass ratio] 14.0 mg/mg - [facility] CBC W/Diff, Automatedon 08-12 Absolute Lymph 1.72 X10 3/uL Normal 0.83-4.51 [facility] Comment on above: Performed By: #### L 500.4050, L501.9910, L506.1000, L503.0105, L500.4100 #### [facility] [address] [place], [address] Absolute Neut 3.1 X10 3/uL Normal 2.0-7.7 [facility] Comment on above: Performed By: #### L 500.4050, L501.9910, L506.1000, L503.0105, L500.4100 #### [facility] [address] [place], [address] Basophils/100 WBC (Bld) 1.2 % High 0-1 [facility] Comment on above: Performed By: #### L 500.4050, L501.9910, L506.1000, L503.0105, L500.4100 #### [facility] [address] [place], [address] Eosinophils/100 WBC (Bld) 3.3 % Normal 0-5 [facility] Comment on above: Performed By: #### L 500.4050, L501.9910, L506.1000, L503.0105, L500.4100 #### [facility] [address] [place], [address] Erythrocyte distribution width (RBC) [Ratio] 13.2 % Normal 11.6-14.6 [facility] Comment on above: Performed By: #### L 500.4050, L501.9910, L506.1000, L503.0105, L500.4100 #### [facility] [address] [place], [address] Hematocrit (Bld) [Volume fraction] 39.8 % Low 40-54 [facility] Comment on above: Performed By: #### L 500.4050, L501.9910, L506.1000, L503.0105, L500.4100 #### [facility] [address] [place], [address] Hemoglobin (Bld) [Mass/Vol] 13.4 g/dL Normal 13.0-16.5 [facility] Comment on above: Performed By: #### L 500.4050, L501.9910, L506.1000, L503.0105, L500.4100 #### [facility] [address] [place], [address] IG% 0.500 Normal 0.0-0.9 [facility] Comment on above: Result Comment: IG% - Immature Granulocytes (promyelocytes, myelocytes and metamyelocytes) > 1% indicates that a LEFT SHIFT is Present. Performed By: #### L 500.4050, L501.9910, L506.1000, L503.0105, L500.4100 #### [facility] [address] [place], [address] Lymphocytes/100 WBC (Bld) 30.3 % Normal 19-41 [facility] Comment on above: Performed By: #### L 500.4050, L501.9910, L506.1000, L503.0105, L500.4100 #### [facility] [address] [place], [address] MCH (RBC) [Entitic mass] 33.0 pg High 27.0-32.0 [facility] Comment on above: Performed By: #### L 500.4050, L501.9910, L506.1000, L503.0105, L500.4100 #### [facility] [address] [place], [address] MCHC (RBC) [Mass/Vol] 33.7 g/dL Normal 32-36 [facility] Comment on above: Performed By: #### L 500.4050, L501.9910, L506.1000, L503.0105, L500.4100 #### [facility] [address] [place], [address] MCV (RBC) [Entitic vol] 98.0 fL High 80-94 [facility] Comment on above: Performed By: #### L 500.4050, L501.9910, L506.1000, L503.0105, L500.4100 #### [facility] [address] [place], [address] Monocytes/100 WBC (Bld) 10.9 % High 0-10 [facility] Comment on above: Performed By: #### L 500.4050, L501.9910, L506.1000, L503.0105, L500.4100 #### [facility] [address] [place], [address] Neutrophils/100 WBC (Bld) 53.8 % Normal 47-70 [facility] Comment on above: Performed By: #### L 500.4050, L501.9910, L506.1000, L503.0105, L500.4100 #### [facility] [address] [place], [address] Nucleated RBC (Bld) [#/Vol] 0 10*3/uL Normal 0-5 [facility] Comment on above: Performed By: #### L 500.4050, L501.9910, L506.1000, L503.0105, L500.4100 #### [facility] [address] [place], [address] Platelet mean volume (Bld) [Entitic vol] 10.0 fL Normal 6.2-12.0 [facility] Comment on above: Performed By: #### L 500.4050, L501.9910, L506.1000, L503.0105, L500.4100 #### [facility] [address] [place], [address] Platelets (Bld) [#/Vol] 236 10*3/uL Normal 150-450 [facility] Comment on above: Performed By: #### L 500.4050, L501.9910, L506.1000, L503.0105, L500.4100 #### [facility] [address] [place], [address] RBC (Bld) [#/Vol] 4.06 10*6/uL Low 4.6-6.2 [facility] Comment on above: Performed By: #### L 500.4050, L501.9910, L506.1000, L503.0105, L500.4100 #### [facility] [address] [place], [address] RDW SD 47.3 fl High 35.1-43.9 [facility] Comment on above: Performed By: #### L 500.4050, L501.9910, L506.1000, L503.0105, L500.4100 #### [facility] [address] [place], [address] WBC (Bld) [#/Vol] 5.7 10*3/uL Normal 4.4-11.0 [facility] Comment on above: Performed By: #### L 500.4050, L501.9910, L506.1000, L503.0105, L500.4100 #### [facility] [address] [place], [address] Carbon dioxide measurementOr dered By: Jesus Romero on 09-03-2024 CO2 [Moles/Vol] 26.0 mmol/L 21.0-32.0 [facility] Chest PA and Lateralon 09-03 Chest PA and Lateral [facility] Imaging Services [address] [place] [address] Chest PA and Lateral MR#: [id number] Acct: [id number] Name: JOVANY MUÑIZ Rep #: [id number] : 1965 M 58 From: Layne Suh MD PCP: Dr. Eduard Henley MD Status: REG ER Study: Chest PA and Lateral Date of Exam: 09/03/24 Exam# [id number] Ordering Dr: Jesus Romero DO -[id number] STUDY: X-RAY CHEST REASON FOR EXAM: [...] Signed: Layne Suh MD at 1:46 EST Reading Location ID and State: [facility] / [place] , Service support , CC: Dr. Eduard Henley MD; Dr. Jesus Romero DO Associate Creative Director: Signed Normal [facility] Chloride measurementOrdered By: Jesus Romero on 09-03-2024 Chloride [Moles/Vol] 104 mmol/L 98-107 [facility] D-Dimer Quantitative (DVT/PE )on 09-03-2024 D-DIMER QUANT 0.44 FEU/ug/m Normal 0.27-0.49 [facility] Comment on above: Result Comment: NORM AL D-Dimer level (<0.50) indicates no DVT or PE. Performed By: #### L 500.4050, L501.9910, L506.1000, L503.0105, L500.4100 #### [facility] [address] [place], [address] D-dimer measurement for deep venous thrombosisOrdered By: Jesus Romero on 09-03-2024 D-Dimer Quantitative (PE/DVT) 0.44 FEU/ug/m 0.27-0.49 [facility] Comment on above: NORMAL D-Dimer level (<0.50) indicates no DVT or PE. Emergency Department Summary on 09-03-2024 Emergency Department Summary [facility] Medical Records Department [address] [place] [address] Emergency Department Summary 09/03/24 MR#: [id number] Acct: [id number] Name: JOVANY MUÑIZ Rep #: [id number] : 1965 58 From: Jesus Romero DO [...] strenuous. Patient states that he saw his supervisor receiving and processing the day after Gisela and the checkup went well. 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 Normal [facility] Eosinophil percentageOrdered By: Jesus Romero on 09-03-2024 Eosinophils/100 WBC (Bld) 3.3 % 0-5 [facility] Erythrocyte distribution wid th ratioOrdered By: Jesus Romero on 09-03-2024 Erythrocyte distribution width (RBC) [Ratio] 13.2 % 11.6-14.6 [facility] Erythrocyte distribution wid th standard deviationOrdered By: Jesus Romero on 09-03-2024 Erythrocyte distribution width (RBC) [Entitic vol] 47.3 fL High 35.1-43.9 [facility] Estimated glomerular filtrat ion rate (GFR) AmericanOrdered By: Jesus Romero on 09-03-2024 Estimated GFR (MDRD) Amer 73 mL/min >60 [facility] Comment on above: GFR Calc Estimation of creatinine liudmila aranceOrdered By: Jesus Romero on 09-03-2024 Estimated Creatinine Clearance Calc 73.11 ml/min [facility] Glomerular filtration rate ( GFR) estimationOrdered By: Jesus Romero on 09-03-2024 Estimated GFR (MDRD) Non-Af Amer 60 mL/min >60 [facility] Comment on above: Non- GFR Calc Glucose measurementOrdered B y: Jesus Romero on 09-03-2024 Glucose [Mass/Vol] 102 mg/dL 74-106 [facility] Comment on above: Fasting Glucose resu lt from 100 to 125 mg/dL suggests IMPAIRED HOMEOSTASIS per A.D.A. criteria. Hematocrit Auto (Bld) [Volum e fraction]Ordered By: Jesus Romero on 09-03-2024 Hematocrit (Bld) [Volume fraction] 39.8 % Low 40-54 [facility] Hemoglobin measurementOrdere d By: Jesus Romero on 09-03-2024 Hemoglobin (Bld) [Mass/Vol] 13.4 g/dL 13.0-16.5 [facility] Immature granulocytes/100 WB C Auto (Bld)Ordered By: Jesus Romero on 09-03-2024 Immature granulocytes/100 WBC (Bld) 0.500 % 0.0-0.9 [facility] Comment on above: IG% - Immature Granu locytes (promyelocytes, myelocytes and metamyelocytes) > 1% indicates that a LEFT SHIFT is Present. Influenza virus A and B and SARS-CoV-2 (COVID-19) and Respiratory syncytial virus RNAOrdered By: Jesus Romero on 09-03-2024 SARS-CoV-2 (COVID-19) RNA LINDSAY+probe Ql (Unsp spec) [facility] L501.4020on 09-03-2024 TROPONIN-I HS 6 pg/mL Normal 3.0-78.0 [facility] Comment on above: Order Comment: 2 Result Comment: Plea se Note: New Test Units and Gender Specific Reference Ranges. For more information see Policy Stat Procedure [place] High Sensitivity Troponin (TNIH) and attachments. Performed By: #### L 500.2500, L500.3400 #### [facility] [address] [place], [address] L501.5425on 09-03-2024 TROPONIN-I HS 5 pg/mL Normal 3.0-78.0 [facility] Comment on above: Order Comment: Order Date: 09/28/24 Order Info: [id number] - CMP Order Info: [id number] - LIPID Order Info: [id number] - PSA Result Comment: Plea se Note: New Test Units and Gender Specific Reference Ranges. For more information see Policy Stat Procedure [place] High Sensitivity Troponin (TNIH) and attachments. Performed By: #### L 500.4050, L501.9910, L506.1000, L503.0105, L500.4100 #### [facility] [address] [place], [address] Lymphocytes Auto (Unsp spec) [#/Vol]Ordered By: Jesus Romero on 09-03-2024 Lymphocytes (Bld) [#/Vol] 1.72 10*3/uL 0.83-4.51 [facility] Lymphocytes/100 WBC Auto (Un sp spec)Ordered By: Jesus Rmoero on 09-03-2024 Lymphocytes/100 WBC (Bld) 30.3 % 19-41 [facility] M100.678on 09-03-2024 M100.678 Pending SARS-CoV-2 (COVID 19) Negative INFLUENZA A Negative INFLUENZA B Negative RSV PCR Negative Normal [facility] Comment on above: Performed By: #### L 500.2500, L500.3400 #### [facility] [address] [place], [place], [id number] MCV (mean corpuscular volume ) determinationOrdered By: Jesus Romero on 09-03-2024 MCV (RBC) [Entitic vol] 98.0 fL High 80-94 [facility] Magnesiumon 09-03-2024 Magnesium [Mass/Vol] 2.4 mg/dL Normal 1.6-2.6 [facility] Comment on above: Order Comment: Order Date: 09/28/24 Order Info: [id number] - CMP Order Info: [id number] - LIPID Order Info: [id number] - PSA Result Comment: Slig ht Hemolysis, Result may be falsely increased. Performed By: #### L 500.4050, L501.9910, L506.1000, L503.0105, L500.4100 #### [facility] [address] [place], [place], [address] Magnesium measurementOrdered By: Jesus Romero on 09-03-2024 Magnesium [Mass/Vol] 2.4 mg/dL 1.6-2.6 [facility] Comment on above: Slight Hemolysis, Re sult may be falsely increased. Mean corpuscular hemoglobin (MCH) determinationOrdered By: Jesus Romero on 09-03-2024 MCH (RBC) [Entitic mass] 33.0 pg High 27.0-32.0 [facility] Mean corpuscular hemoglobin concentration (MCHC) determinationOrdered By: Jesus Romero on 09-03-2024 MCHC (RBC) [Mass/Vol] 33.7 g/dL 32-36 [facility] Mean platelet volume determi nationOrdered By: Jesus Romero on 09-03-2024 Platelet mean volume (Bld) [Entitic vol] 10.0 fL 6.2-12.0 [facility] Monocyte percentageOrdered B y: Jesus Romero on 09-03-2024 Monocytes/100 WBC (Bld) 10.9 % High 0-10 [facility] Neutrophil percentageOrdered By: Jesus Romero on 09-03-2024 Neutrophils/100 WBC (Bld) 53.8 % 47-70 [facility] Nucleated red blood cell per centageOrdered By: Jesus Romero on 09-03-2024 Nucleated RBC/100 WBC (Bld) [Ratio] 0 % 0-5 [facility] Platelet countOrdered By: Imtiaz Romero on 09-03-2024 Platelets (Bld) [#/Vol] 236 10*3/uL 150-450 [facility] Potassium measurementOrdered By: Jesus Romero on 09-03-2024 Potassium [Moles/Vol] 3.8 mmol/L 3.5-5.1 [facility] Comment on above: Slight Hemolysis, Re sult may be falsely increased. RBC Auto (Bld) [#/Vol]Ordere d By: Jesus Romero on 09-03-2024 RBC (Bld) [#/Vol] 4.06 10*6/uL Low 4.6-6.2 [facility] Serum anion gap measurementO rdered By: Jesus Romero on 09-03-2024 Anion gap [Moles/Vol] 8 mmol/L 5-15 [facility] Serum or plasma calcium randa urement (mass/volume)Ordered By: Jesus Romero on 09-03-2024 Calcium [Mass/Vol] 9.3 mg/dL 8.5-10.1 [facility] Serum or plasma creatinine m easurement (mass/volume)Ordered By: Jesus Romero on 09-03-2024 Creatinine [Mass/Vol] 1.29 mg/dL 0.70-1.30 [facility] Comment on above: The validity of the calculated GFR & GFRAA in patients over 70 years has not been determined. Clinical correlation is essential. Serum or plasma urea nitroge n measurement (mass/volume)Ordered By: Jesus Romero on 09-03-2024 Urea nitrogen [Mass/Vol] 18 mg/dL 7-18 [facility] Sodium levelOrdered By: Amanda Romero on 09-03-2024 Sodium [Moles/Vol] 138 mmol/L 136-145 [facility] TSH QnOrdered By: Jesus hussein on 09-03-2024 Thyroid Stimulating Hormone (TSH) 2.110 uIU/mL 0.358-3.740 [facility] Thyroid Stim Hormone (TSH)on 09-03-2024 TSH 2.110 uIU/mL Normal 0.358-3.740 [facility] Comment on above: Order Comment: Order Date: 09/28/24 Order Info: [id number] - CMP Order Info: [id number] - LIPID Order Info: [id number] - PSA Performed By: #### L 500.4050, L501.9910, L506.1000, L503.0105, L500.4100 #### [facility] [address] [place], [address] Troponin IOrdered By: Jesus Romero on 09-03-2024 Troponin I High Sensitivity 6 pg/mL 3.0-78.0 [facility] Comment on above: Please Note: New Joan t Units and Gender Specific Reference Ranges. For more information see Policy Stat Procedure [place] High Sensitivity Troponin (TNIH) and attachments. White blood cell (WBC) count Ordered By: Jesus Romero on 09-03-2024 WBC (Bld) [#/Vol] 5.7 10*3/uL 4.4-11.0 [facility] Cardiology Visit Reporton Cardiology Visit Report [facility] [address] [place] [address] OFFICE VISIT Date of Service: 08/06/24 MR#: [id number] Acct: [id number] Name: JOVANY MUÑIZ Rep #: [id number] : 1965 Provider: Dr. Jose Lockwood MD Age/Sex: 58/M Location: [facility] Status: Signed HPI HPI History of Present Illness Details: This is a 58-year-old white male who presents today for outpatient cardiovascular follow-up regarding a history of underlying CAD, PCI, hyperlipidemia, and hypertension. 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 Normal [facility] Basophil percentageOrdered B y: Carlita Velasquez on 09-10-2023 Bilirubin [Mass/Vol] 0.40 mg/dL 0.20-1.00 [facility] Comment on above: For patients on eltr ombopag therapy, use of Dimension [place] TBIL is not recommended. Chloride [Moles/Vol] 104 mmol/L 98-107 [facility] Glucose [Mass/Vol] 109 mg/dL 74-106 [facility] Comment on above: Fasting Glucose resu lt from 100 to 125 mg/dL suggests IMPAIRED HOMEOSTASIS per A.D.A. criteria. Hemoglobin (Bld) [Mass/Vol] 15.4 g/dL 13.0-16.5 [facility] Potassium [Moles/Vol] 4.6 mmol/L 3.5-5.1 [facility] Protein [Mass/Vol] 8.0 g/dL 6.4-8.2 [facility] Sodium [Moles/Vol] 133 mmol/L 136-145 [facility] WBC (Bld) [#/Vol] 5.9 10*3/uL 4.4-11.0 [facility] Determination of erythrocyte mean corpuscular volume (MCV)Ordered By: Carlita Ron on 09-10-2023 MCV (RBC) [Entitic vol] 97.1 fL 80-94 [facility] Erythrocyte distribution wid th ratioOrdered By: [facility] 09-10-2023 Erythrocyte distribution width (RBC) [Ratio] 13.3 % 11.6-14.6 [facility] Erythrocyte distribution wid th standard deviationOrdered By: [facility] on 09-10-2023 Erythrocyte distribution width (RBC) [Entitic vol] 47.8 fL 35.1-43.9 [facility] Hematocrit Auto (Bld) [Volum e fraction]Ordered By: [facility] on 09-10-2023 Hematocrit (Bld) [Volume fraction] 46.5 % 40-54 [facility] - Chemistry and C hemistry - challengeOrdered By: [facility] on 09-10-2023 Albumin/Globulin [Mass ratio] 0.9 {ratio} 0.9-2.4 [facility] ALP [Catalytic activity/Vol] 63 U/L 45-117 [facility] ALT [Catalytic activity/Vol] 46 U/L 16-61 [facility] CO2 [Moles/Vol] 25.0 mmol/L 21.0-32.0 [facility] Cobalamin (Vitamin B12) [Mass/Vol] 438 pg/mL 211-911 [facility] Globulin (S) [Mass/Vol] 4.3 g/dL 2.2-4.2 [facility] Urea nitrogen/Creatinine [Mass ratio] 20.5 mg/mg 10-20 [facility] - Hematology and Cell countsOrdered By: Carlita Velasquez on 09-10-2023 MCH (RBC) [Entitic mass] 32.2 pg 27.0-32.0 [facility] MCHC (RBC) [Mass/Vol] 33.1 g/dL 32-36 [facility] Platelets (Bld) [#/Vol] 260 10*3/uL 150-450 [facility] No Panel InformationOrdered By: Carlita Velasquez on 09-10-2023 Estimated GFR (MDRD) Amer 107 mL/min >60 [facility] Comment on above: GFR Calc Estimated GFR (MDRD) Non-Af Amer 89 mL/min >60 [facility] Comment on above: Non- GFR Calc Platelet mean volume Codey-Ec ker (Bld) [Entitic vol]Ordered By: Carlita Velasquez on 09-10-2023 Platelet mean volume (Bld) [Entitic vol] 9.9 fL 6.2-12.0 [facility] RBC Auto (Bld) [#/Vol]Ordere d By: Carlita Velasquez on 09-10-2023 RBC (Bld) [#/Vol] 4.79 10*6/uL 4.6-6.2 [facility] Serum or plasma calcitriol m easurement (mass/volume)Ordered By: Carlita Velasquez on 09-10-2023 1,25-dihydroxyvitamin D3 [Mass/Vol] 33.6 pg/mL 24.8-81.5 [facility] Comment on above: Performed at: - [facility] [address] [id number] Director: Brandie Dial MD, Phone: [phone] Serum or plasma calcium randa urement (mass/volume)Ordered By: Carlita Velasquez on 09-10-2023 Calcium [Mass/Vol] 9.3 mg/dL 8.5-10.1 [facility] Serum or plasma creatinine m easurement (mass/volume)Ordered By: Carlita Velasquez on 09-10-2023 Creatinine [Mass/Vol] 0.93 mg/dL 0.70-1.30 [facility] Comment on above: The validity of the calculated GFR & GFRAA in patients over 70 years has not been determined. Clinical correlation is essential. Serum or plasma urea nitroge n measurement (mass/volume)Ordered By: [facility] on 09-10-2023 Urea nitrogen [Mass/Vol] 19 mg/dL 7-18 [facility] Thin prep Papanicolaou smear with manual screeningOrdered By: [facility] Thin prep Papanicolaou smear with manual screening 3.7 g/dL 3.2-5.0 [facility] Thin prep Papanicolaou smear with manual screening 32 U/L 15-37 [facility] Thin prep Papanicolaou smear with manual screening 4 5-15 [facility] Whole blood hemoglobin A1c/t otal hemoglobin ratio (mass fraction)Ordered By: Carlita Velasquez on 09-10-2023 HbA1c (Bld) [Mass fraction] 5.5 % 3.8-5.6 [facility] Comment on above: Normal < 5.7 % Predi abetic 5.7 - 6.4 % Diabetic >or= 6.5 % Please note range changes. Basophil percentageOrdered B y: Mitchell Dubois on 07-07-2023 Bilirubin [Mass/Vol] 0.50 mg/dL 0.20-1.00 [facility] Comment on above: For patients on eltr ombopag therapy, use of Dimension [place] TBIL is not recommended. Cholesterol [Mass/Vol] 152 mg/dL <200 [facility] Comment on above: <200 mg/dL Desirable 200-240 mg/dL Borderline >240 mg/dL High Risk Protein [Mass/Vol] 8.2 g/dL 6.4-8.2 [facility] Triglyceride [Mass/Vol] 140 mg/dL <199 [facility] Comment on above: The drugs N-Acetylcy steine and Metamizole may falsely depress this assay.Serum Triglycerides Reference Interval Normal <150 mg/dL Borderline high 150 - 199 mg/dL High 200 - 499 mg/dL Very High > or = 500 mg/dL Direct bilirubinOrdered By: Mitchell Dubois on 07-07-2023 Bilirubin.direct [Mass/Vol] 0.17 mg/dL 0.00-0.30 [facility] - Chemistry and C hemistry - challengeOrdered By: Mitchell Dubois on 07-07-2023 ALP [Catalytic activity/Vol] 72 U/L 45-117 [facility] ALT [Catalytic activity/Vol] 52 U/L 16-61 [facility] Globulin (S) [Mass/Vol] 4.6 g/dL 2.2-4.2 [facility] Serum or plasma albumin randa urement (mass/volume)Ordered By: Mitchell Dubois on 07-07-2023 Albumin [Mass/Vol] 3.6 g/dL 3.2-5.0 [facility] Serum or plasma cholesterol in HDL measurement (mass/volume)Ordered By: Mitchell Dubois on 07-07-2023 Cholesterol in HDL [Mass/Vol] 65 mg/dL >40 [facility] Comment on above: The drugs N-Acetylcy steine and Metamizole may falsely depress this assay. Reference Range HDL <40 mg/dL Low HDL Cholesterol HDL >or= 60 mg/dL High HDL Cholesterol Serum or plasma cholesterol in VLDL measurement (mass/volume)Ordered By: Mitchell Dubois on 07-07-2023 Cholesterol in VLDL [Mass/Vol] 28 mg/dL 5-40 [facility] Serum or plasma low density lipoprotein (LDL) cholesterol measurement (mass/volume)Ordered By: Mitchell Dubois on 07-07-2023 Cholesterol in LDL [Mass/Vol] 59 mg/dL 0-130 [facility] Thin prep Papanicolaou smear with manual screeningOrdered By: Mitchell Dubois on 07-07-2023 Thin prep Papanicolaou smear with manual screening 31 U/L 15-37 [facility] Absolute lymphocyte countOrd ered By: Meliza Ramírez on 06-15-2023 Lymphocytes Auto (Unsp spec) [#/Vol] 0.73 10*3/uL 0.83-4.51 [facility] Basophil percentageOrdered B y: Meliza Ramírez on 06-15-2023 Basophils/100 WBC (Bld) 0.3 % 0-1 [facility] Bilirubin [Mass/Vol] 0.50 mg/dL 0.20-1.00 [facility] Comment on above: For patients on eltr ombopag therapy, use of Dimension [place] TBIL is not recommended. Chloride [Moles/Vol] 109 mmol/L 98-107 [facility] Eosinophils/100 WBC (Bld) 2.6 % 0-5 [facility] Glucose [Mass/Vol] 93 mg/dL 74-106 [facility] Neutrophils (Bld) [#/Vol] 5.7 10*3/uL 2.0-7.7 [facility] Neutrophils/100 WBC (Bld) 81.6 % 47-70 [facility] Potassium [Moles/Vol] 3.6 mmol/L 3.5-5.1 [facility] Protein [Mass/Vol] 6.8 g/dL 6.4-8.2 [facility] Sodium [Moles/Vol] 138 mmol/L 136-145 [facility] WBC (Bld) [#/Vol] 7.0 10*3/uL 4.4-11.0 [facility] Blood erythrocytes count (nu mber/volume)Ordered By: Meliza Ramírez on 06-15-2023 RBC (Bld) [#/Vol] 3.60 10*6/uL 4.6-6.2 [facility] Blood hemoglobin measurement (mass/volume)Ordered By: Meliza Ramírez on 06-15-2023 Hemoglobin (Bld) [Mass/Vol] 11.7 g/dL 13.0-16.5 [facility] Blood lymphocytes/100 leukoc ytesOrdered By: Meliza Ramírez on 06-15-2023 Lymphocytes/100 WBC (Bld) 10.5 % 19-41 [facility] Blood monocytes/100 leukocyt esOrdered By: Meliza Ramírez on 06-15-2023 Monocytes/100 WBC (Bld) 4.6 % 0-10 [facility] Blood platelet mean volumeOr dered By: Meliza Ramírez on 06-15-2023 Platelet mean volume (Bld) [Entitic vol] 9.9 fL 6.2-12.0 [facility] Determination of erythrocyte mean corpuscular volume (MCV)Ordered By: Meliza Ramírez on 06-15-2023 MCV (RBC) [Entitic vol] 101.4 fL 80-94 [facility] Hematocrit Auto (Bld) [Volum e fraction]Ordered By: Meliza Ramírez on 06-15-2023 Hematocrit (Bld) [Volume fraction] 36.5 % 40-54 [facility] - Chemistry and C hemistry - challengeOrdered By: Meliza Ramírez on 06-15-2023 ALP [Catalytic activity/Vol] 61 U/L 45-117 [facility] ALT [Catalytic activity/Vol] 22 U/L 16-61 [facility] CO2 [Moles/Vol] 22.0 mmol/L 21.0-32.0 [facility] Globulin (S) [Mass/Vol] 4.3 g/dL 2.2-4.2 [facility] Urea nitrogen/Creatinine [Mass ratio] 11.1 mg/mg 10-20 [facility] - Hematology and Cell countsOrdered By: Meliza Ramírez on 06-15-2023 Erythrocyte distribution width (RBC) [Entitic vol] 50.3 fL 35.1-43.9 [facility] Erythrocyte distribution width (RBC) [Ratio] 13.4 % 11.6-14.6 [facility] Immature granulocytes/100 WBC (Bld) 0.400 % 0.0-0.9 [facility] Comment on above: IG% - Immature Granu locytes (promyelocytes, myelocytes and metamyelocytes) > 1% indicates that a LEFT SHIFT is Present. MCH (RBC) [Entitic mass] 32.5 pg 27.0-32.0 [facility] Nucleated RBC/100 WBC (Bld) [Ratio] 0 % 0-5 [facility] MCHC Auto (RBC) [Mass/Vol]Or dered By: Meliza Ramírez on 06-15-2023 MCHC (RBC) [Mass/Vol] 32.1 g/dL 32-36 [facility] No Panel InformationOrdered By: Meliza Ramírez on 06-15-2023 Estimated Creatinine Clearance Calc 107.78 ml/min [facility] Estimated GFR (MDRD) Amer 124 mL/min >60 [facility] Comment on above: GFR Calc Estimated GFR (MDRD) Non-Af Amer 103 mL/min >60 [facility] Comment on above: Non- GFR Calc Platelets bldOrdered By: Rubén Ramírez on 06-15-2023 Platelets (Bld) [#/Vol] 205 10*3/uL 150-450 [facility] Serum or plasma albumin randa urement (mass/volume)Ordered By: Meliza Ramírez on 06-15-2023 Albumin [Mass/Vol] 2.5 g/dL 3.2-5.0 [facility] Serum or plasma albumin/glob ulin mass ratioOrdered By: Meliza Ramírez on 06-15-2023 Albumin/Globulin [Mass ratio] 0.6 {ratio} 0.9-2.4 [facility] Serum or plasma calcium randa urement (mass/volume)Ordered By: Meliza Ramírez on 06-15-2023 Calcium [Mass/Vol] 7.9 mg/dL 8.5-10.1 [facility] Serum or plasma creatinine m easurement (mass/volume)Ordered By: Meliza Ramírez on 06-15-2023 Creatinine [Mass/Vol] 0.81 mg/dL 0.70-1.30 [facility] Comment on above: The validity of the calculated GFR & GFRAA in patients over 70 years has not been determined. Clinical correlation is essential. Serum or plasma urea nitroge n measurement (mass/volume)Ordered By: Meliza Ramírez on 06-15-2023 Urea nitrogen [Mass/Vol] 9 mg/dL 7-18 [facility] Thin prep Papanicolaou smear with manual screeningOrdered By: Meliza Ramírez on 06-15-2023 Thin prep Papanicolaou smear with manual screening 12 U/L 15-37 [facility] Thin prep Papanicolaou smear with manual screening 7 5-15 [facility] Absolute lymphocyte countOrd ered By: Donta Swenson on 06-14-2023 Lymphocytes Auto (Unsp spec) [#/Vol] 0.90 10*3/uL 0.83-4.51 [facility] Basophil percentageOrdered B y: Donta Swenson on 06-14-2023 Basophil percentage 0 SEEN /hpf 0-5 [facility] Basophils/100 WBC (Bld) 0.3 % 0-1 [facility] Bilirubin [Mass/Vol] 0.60 mg/dL 0.20-1.00 [facility] Comment on above: For patients on eltr ombopag therapy, use of Dimension [place] TBIL is not recommended. Chloride [Moles/Vol] 108 mmol/L 98-107 [facility] Eosinophils/100 WBC (Bld) 2.5 % 0-5 [facility] Glucose [Mass/Vol] 119 mg/dL 74-106 [facility] Comment on above: Fasting Glucose resu lt from 100 to 125 mg/dL suggests IMPAIRED HOMEOSTASIS per A.D.A. criteria. Neutrophils (Bld) [#/Vol] 7.4 10*3/uL 2.0-7.7 [facility] Neutrophils/100 WBC (Bld) 83.8 % 47-70 [facility] Potassium [Moles/Vol] 4.4 mmol/L 3.5-5.1 [facility] Protein [Mass/Vol] 8.0 g/dL 6.4-8.2 [facility] Sodium [Moles/Vol] 139 mmol/L 136-145 [facility] WBC (Bld) [#/Vol] 8.9 10*3/uL 4.4-11.0 [facility] Bilirubin Test strip Ql (U)O rdered By: Donta Swenson on 06-14-2023 Bilirubin Ql (U) Negative Negative [facility] Blood erythrocytes count (nu mber/volume)Ordered By: Donta Swenson on 06-14-2023 RBC (Bld) [#/Vol] 4.32 10*6/uL 4.6-6.2 [facility] Blood hemoglobin measurement (mass/volume)Ordered By: Donta Swenson on 06-14-2023 Hemoglobin (Bld) [Mass/Vol] 14.1 g/dL 13.0-16.5 [facility] Blood lymphocytes/100 leukoc ytesOrdered By: Donta Swenson on 06-14-2023 Lymphocytes/100 WBC (Bld) 10.2 % 19-41 [facility] Blood monocytes/100 leukocyt esOrdered By: Donta Swenson on 06-14-2023 Monocytes/100 WBC (Bld) 2.7 % 0-10 [facility] Blood platelet mean volumeOr dered By: Donta Swenson on 06-14-2023 Platelet mean volume (Bld) [Entitic vol] 9.4 fL 6.2-12.0 [facility] Determination of erythrocyte mean corpuscular volume (MCV)Ordered By: Donta Swenson on 06-14-2023 MCV (RBC) [Entitic vol] 100.2 fL 80-94 [facility] Hematocrit Auto (Bld) [Volum e fraction]Ordered By: Donta Swenson on 06-14-2023 Hematocrit (Bld) [Volume fraction] 43.3 % 40-54 [facility] Ketones Test strip Ql (U)Ord ered By: Donta Swenson on 06-14-2023 Ketones Ql (U) Negative Negative [facility] - Chemistry and C hemistry - challengeOrdered By: Donta Swenson on 06-14-2023 ALP [Catalytic activity/Vol] 72 U/L 45-117 [facility] ALT [Catalytic activity/Vol] 30 U/L 16-61 [facility] CO2 [Moles/Vol] 27.0 mmol/L 21.0-32.0 [facility] Globulin (S) [Mass/Vol] 4.8 g/dL 2.2-4.2 [facility] Lipase [Catalytic activity/Vol] 235 U/L 13-75 [facility] Comment on above: Please note:LIPASE r evised reference range effective 22. New Lipase methodology. Expected to produce lower values than the previous assay method. NEW Reference Range: 13 - 75 U/L Urea nitrogen/Creatinine [Mass ratio] 11.9 mg/mg 10-20 [facility] - Hematology and Cell countsOrdered By: Donta Swenson on 06-14-2023 Erythrocyte distribution width (RBC) [Entitic vol] 48.7 fL 35.1-43.9 [facility] Erythrocyte distribution width (RBC) [Ratio] 13.1 % 11.6-14.6 [facility] Immature granulocytes/100 WBC (Bld) 0.500 % 0.0-0.9 [facility] Comment on above: IG% - Immature Granu locytes (promyelocytes, myelocytes and metamyelocytes) > 1% indicates that a LEFT SHIFT is Present. MCH (RBC) [Entitic mass] 32.6 pg 27.0-32.0 [facility] Nucleated RBC/100 WBC (Bld) [Ratio] 0 % 0-5 [facility] MCHC Auto (RBC) [Mass/Vol]Or dered By: Donta Swenson on 06-14-2023 MCHC (RBC) [Mass/Vol] 32.6 g/dL 32-36 [facility] Mucus LM Ql (Urine sed)Order ed By: Donta Swenson on 06-14-2023 Mucus Ql (Urine sed) 0 SEEN /hpf [facility] Nitrite Test strip Ql (U)Ord ered By: Donta Swenson on 06-14-2023 Nitrite Ql (U) Negative Negative [facility] No Panel InformationOrdered By: Donta Swenson on 06-14-2023 Estimated Creatinine Clearance Calc 80.09 ml/min [facility] Estimated GFR (MDRD) Amer 89 mL/min >60 [facility] Comment on above: GFR Calc Estimated GFR (MDRD) Non-Af Amer 73 mL/min >60 [facility] Comment on above: Non- GFR Calc Platelets bldOrdered By: Goldie Swenson on 06-14-2023 Platelets (Bld) [#/Vol] 251 10*3/uL 150-450 [facility] Protein Test strip Ql (U)Ord ered By: Donta Swenson on 06-14-2023 Protein Ql (U) Negative Negative [facility] Serum or plasma albumin randa urement (mass/volume)Ordered By: Donta Swenson on 06-14-2023 Albumin [Mass/Vol] 3.2 g/dL 3.2-5.0 [facility] Serum or plasma albumin/glob ulin mass ratioOrdered By: Donta Swenson on 06-14-2023 Albumin/Globulin [Mass ratio] 0.7 {ratio} 0.9-2.4 [facility] Serum or plasma calcium randa urement (mass/volume)Ordered By: Donta Swenson on 11-04-2023 Calcium [Mass/Vol] 9.0 mg/dL 8.5-10.1 [facility] Serum or plasma creatinine m easurement (mass/volume)Ordered By: Donta Swenson on 06-14-2023 Creatinine [Mass/Vol] 1.09 mg/dL 0.70-1.30 [facility] Comment on above: The validity of the calculated GFR & GFRAA in patients over 70 years has not been determined. Clinical correlation is essential. Serum or plasma urea nitroge n measurement (mass/volume)Ordered By: Donta Swenson on 06-14-2023 Urea nitrogen [Mass/Vol] 13 mg/dL 7-18 [facility] Squamous epithelial cells de tection in urine sediment by light microscopyOrdered By: Donta Swenson on 06-14-2023 Epithelial cells.squamous LM Ql (Urine sed) 0 SEEN /hpf 0-5 [facility] Thin prep Papanicolaou smear with manual screeningOrdered By: Donta Swenson on 06-14-2023 Thin prep Papanicolaou smear with manual screening 18 U/L 15-37 [facility] Thin prep Papanicolaou smear with manual screening 4 5-15 [facility] Urine blood detectionOrdered By: Donta Swenson on 06-14-2023 RBC Ql (U) Negative Negative [facility] RBC Ql (U) 0 SEEN /hpf 0-5 [facility] Urine clarityOrdered By: Goldie Swenson on 06-14-2023 Clarity (U) Clear Clear [facility] Urine color determinationOrd ered By: Donta Swenson on 06-14-2023 Color (U) Yellow Yellow [facility] Urine glucose detectionOrder ed By: Donta Swenson on 06-14-2023 Glucose Ql (U) Normal mg/dl Normal [facility] Urine leukocyte esterase det ection by dipstickOrdered By: Donta Swenson on 06-14-2023 Leukocyte esterase Test strip Ql (U) Negative Negative [facility] Urine pHOrdered By: Donta dickerson on 06-14-2023 pH (U) 7.0 [pH] 5.0 - 8.0 [facility] Urine sediment bacteria coun t by microscopy (number/high power field)Ordered By: Donta Swenson on 06-14-2023 Bacteria LM.HPF (Urine sed) [#/Area] 0 /[HPF] None Seen [facility] Urine specific gravity measu rementOrdered By: Donta Swenson on 06-14-2023 Specific gravity (U) [Rel density] 1.010 1.002-1.030 [facility] Urobilinogen Auto test strip Ql (U)Ordered By: Donta Swenson on 06-14-2023 Urobilinogen Ql (U) Normal mg/dl Normal [facility] Basophil percentageOrdered B y: Sergei Henley on 06-02-2023 Bilirubin [Mass/Vol] 0.30 mg/dL 0.20-1.00 [facility] Comment on above: For patients on eltr ombopag therapy, use of Dimension [place] TBIL is not recommended. Chloride [Moles/Vol] 109 mmol/L 98-107 [facility] Glucose [Mass/Vol] 103 mg/dL 74-106 [facility] Comment on above: Fasting Glucose resu lt from 100 to 125 mg/dL suggests IMPAIRED HOMEOSTASIS per A.D.A. criteria. Potassium [Moles/Vol] 4.6 mmol/L 3.5-5.1 [facility] Protein [Mass/Vol] 7.6 g/dL 6.4-8.2 [facility] Sodium [Moles/Vol] 141 mmol/L 136-145 [facility] WBC (Bld) [#/Vol] 6.3 10*3/uL 4.4-11.0 [facility] Blood erythrocytes count (nu mber/volume)Ordered By: Sergei Henley on 06-02-2023 RBC (Bld) [#/Vol] 4.21 10*6/uL 4.6-6.2 [facility] Blood hemoglobin measurement (mass/volume)Ordered By: Sergei Henley on 06-02-2023 Hemoglobin (Bld) [Mass/Vol] 13.7 g/dL 13.0-16.5 [facility] Blood platelet mean volumeOr dered By: Sergei Henley on 06-02-2023 Platelet mean volume (Bld) [Entitic vol] 9.8 fL 6.2-12.0 [facility] Determination of erythrocyte mean corpuscular volume (MCV)Ordered By: Sergei Henley on 06-02-2023 MCV (RBC) [Entitic vol] 100.7 fL 80-94 [facility] Erythrocyte sedimentation ra teOrdered By: Sergei Henley on 06-02-2023 ESR (Bld) [Velocity] 8 mm/h 0-20 [facility] Hematocrit Auto (Bld) [Volum e fraction]Ordered By: Sergei Henley on 06-02-2023 Hematocrit (Bld) [Volume fraction] 42.4 % 40-54 [facility] Iron measurement (mass/mass) Ordered By: Sergei Henley on 06-02-2023 Iron (Unsp spec) [Mass/Mass] 101 ug/dL 65-175 [facility] Laboratory - Chemistry and C hemistry - challengeOrdered By: Sergei Henley on 06-02-2023 ALP [Catalytic activity/Vol] 72 U/L 45-117 [facility] ALT [Catalytic activity/Vol] 35 U/L 16-61 [facility] CO2 [Moles/Vol] 28.0 mmol/L 21.0-32.0 [facility] Cobalamin (Vitamin B12) [Mass/Vol] 309 pg/mL 211-911 [facility] Globulin (S) [Mass/Vol] 4.2 g/dL 2.2-4.2 [facility] Magnesium [Mass/Vol] 2.6 mg/dL 1.6-2.6 [facility] Urea nitrogen/Creatinine [Mass ratio] 14.4 mg/mg 10-20 [facility] Laboratory - Hematology and Cell countsOrdered By: Sergei Henley on 06-02-2023 Erythrocyte distribution width (RBC) [Entitic vol] 47.6 fL 35.1-43.9 [facility] Erythrocyte distribution width (RBC) [Ratio] 12.8 % 11.6-14.6 [facility] MCH (RBC) [Entitic mass] 32.5 pg 27.0-32.0 [facility] MCHC Auto (RBC) [Mass/Vol]Or dered By: Sergei Henley on 06-02-2023 MCHC (RBC) [Mass/Vol] 32.3 g/dL 32-36 [facility] No Panel InformationOrdered By: Sergei Henley on 06-02-2023 Estimated GFR (MDRD) Amer 101 mL/min >60 [facility] Comment on above: GFR Calc Estimated GFR (MDRD) Non-Af Amer 84 mL/min >60 [facility] Comment on above: Non- GFR Calc Thyroid Stimulating Hormone (TSH) 1.26 uIU/mL 0.358-3.74 [facility] Vitamin D 25-Hydroxy 34.5 ng/mL [facility] Comment on above: Vitamin D 25(OH) Sta tus Range Deficiency <20 ng/mL (50nmol/L) Insufficiency 20 - 30 ng/mL (50 - 75 nmol/L) Sufficiency 30 - 100 ng/mL (75 - 250 nmol/L) Toxicity >100 ng/mL (>250 nmol/L) Platelets bldOrdered By: Mukesh Henley on 06-02-2023 Platelets (Bld) [#/Vol] 261 10*3/uL 150-450 [facility] Serum or plasma albumin randa urement (mass/volume)Ordered By: Sergei Henley on 06-02-2023 Albumin [Mass/Vol] 3.4 g/dL 3.2-5.0 [facility] Serum or plasma albumin/glob ulin mass ratioOrdered By: Sergei Henley on 06-02-2023 Albumin/Globulin [Mass ratio] 0.8 {ratio} 0.9-2.4 [facility] Serum or plasma calcium randa urement (mass/volume)Ordered By: Sergei Henley on 06-02-2023 Calcium [Mass/Vol] 8.7 mg/dL 8.5-10.1 [facility] Serum or plasma creatinine m easurement (mass/volume)Ordered By: Sergei Henley on 06-02-2023 Creatinine [Mass/Vol] 0.98 mg/dL 0.70-1.30 [facility] Comment on above: The validity of the calculated GFR & GFRAA in patients over 70 years has not been determined. Clinical correlation is essential. Serum or plasma ferritin seema surement (mass/volume)Ordered By: Sergei Henley on 06-02-2023 Ferritin [Mass/Vol] 285 ng/mL 26-388 [facility] Serum or plasma urea nitroge n measurement (mass/volume)Ordered By: eSrgei Henley on 06-02-2023 Urea nitrogen [Mass/Vol] 14 mg/dL 7-18 [facility] Thin prep Papanicolaou smear with manual screeningOrdered By: Sergei Henley on 06-02-2023 Thin prep Papanicolaou smear with manual screening 24 U/L 15-37 [facility] Thin prep Papanicolaou smear with manual screening 4 5-15 [facility] Basophil percentageOrdered B y: Eileen Ray on 04-25-2023 Bilirubin [Mass/Vol] 0.40 mg/dL 0.20-1.00 [facility] Comment on above: For patients on eltr ombopag therapy, use of Dimension [place] TBIL is not recommended. Chloride [Moles/Vol] 109 mmol/L 98-107 [facility] Glucose [Mass/Vol] 104 mg/dL 74-106 [facility] Comment on above: Fasting Glucose resu lt from 100 to 125 mg/dL suggests IMPAIRED HOMEOSTASIS per A.D.A. criteria. Potassium [Moles/Vol] 3.9 mmol/L 3.5-5.1 [facility] Protein [Mass/Vol] 7.0 g/dL 6.4-8.2 [facility] Sodium [Moles/Vol] 139 mmol/L 136-145 [facility] WBC (Bld) [#/Vol] 4.7 10*3/uL 4.4-11.0 [facility] Blood erythrocytes count (nu mber/volume)Ordered By: Eileen Ray on 04-25-2023 RBC (Bld) [#/Vol] 4.14 10*6/uL 4.6-6.2 [facility] Blood hemoglobin measurement (mass/volume)Ordered By: Eileen Ray on 04-25-2023 Hemoglobin (Bld) [Mass/Vol] 13.9 g/dL 13.0-16.5 [facility] Blood platelet mean volumeOr dered By: Eileen Ray on 04-25-2023 Platelet mean volume (Bld) [Entitic vol] 9.5 fL 6.2-12.0 [facility] Determination of erythrocyte mean corpuscular volume (MCV)Ordered By: Eileen Ray on 04-25-2023 MCV (RBC) [Entitic vol] 99.8 fL 80-94 [facility] Hematocrit Auto (Bld) [Volum e fraction]Ordered By: Eileen Ray on 04-25-2023 Hematocrit (Bld) [Volume fraction] 41.3 % 40-54 [facility] Laboratory - Chemistry and C hemistry - challengeOrdered By: Eileen Ray on 04-25-2023 ALP [Catalytic activity/Vol] 61 U/L 45-117 [facility] ALT [Catalytic activity/Vol] 50 U/L 16-61 [facility] CO2 [Moles/Vol] 27.0 mmol/L 21.0-32.0 [facility] Globulin (S) [Mass/Vol] 3.9 g/dL 2.2-4.2 [facility] Urea nitrogen/Creatinine [Mass ratio] 10.2 mg/mg 10-20 [facility] Laboratory - Hematology and Cell countsOrdered By: Eileen Ray on 04-25-2023 Erythrocyte distribution width (RBC) [Entitic vol] 47.3 fL 35.1-43.9 [facility] Erythrocyte distribution width (RBC) [Ratio] 12.9 % 11.6-14.6 [facility] MCH (RBC) [Entitic mass] 33.6 pg 27.0-32.0 [facility] MCHC Auto (RBC) [Mass/Vol]Or dered By: Eileen Ray on 04-25-2023 MCHC (RBC) [Mass/Vol] 33.7 g/dL 32-36 [facility] No Panel InformationOrdered By: Eileen Ray on 04-25-2023 Estimated Creatinine Clearance Calc 89.08 ml/min [facility] Estimated GFR (MDRD) Amer 100 mL/min >60 [facility] Comment on above: GFR Calc Estimated GFR (MDRD) Non-Af Amer 83 mL/min >60 [facility] Comment on above: Non- GFR Calc Platelets bldOrdered By: Nuno Ray on 04-25-2023 Platelets (Bld) [#/Vol] 185 10*3/uL 150-450 [facility] Serum or plasma albumin randa urement (mass/volume)Ordered By: Eileen Ray on 04-25-2023 Albumin [Mass/Vol] 3.1 g/dL 3.2-5.0 [facility] Serum or plasma albumin/glob ulin mass ratioOrdered By: Eileen Ray on 04-25-2023 Albumin/Globulin [Mass ratio] 0.8 {ratio} 0.9-2.4 [facility] Serum or plasma calcium randa urement (mass/volume)Ordered By: Eileen Ray on 04-25-2023 Calcium [Mass/Vol] 8.6 mg/dL 8.5-10.1 [facility] Serum or plasma creatinine m easurement (mass/volume)Ordered By: Eileen Ray on 04-25-2023 Creatinine [Mass/Vol] 0.98 mg/dL 0.70-1.30 [facility] Comment on above: The validity of the calculated GFR & GFRAA in patients over 70 years has not been determined. Clinical correlation is essential. Serum or plasma urea nitroge n measurement (mass/volume)Ordered By: Eileen Ray on 04-25-2023 Urea nitrogen [Mass/Vol] 10 mg/dL 7-18 [facility] Thin prep Papanicolaou smear with manual screeningOrdered By: Eileen Ray on 04-25-2023 Thin prep Papanicolaou smear with manual screening 73 U/L 15-37 [facility] Thin prep Papanicolaou smear with manual screening 3 5-15 [facility] Whole blood hemoglobin A1c/t otal hemoglobin ratio (mass fraction)Ordered By: Ar Torres on 04-25-2023 HbA1c (Bld) [Mass fraction] 5.6 % 3.8-5.6 [facility] Comment on above: Normal < 5.7 % Predi abetic 5.7 - 6.4 % Diabetic >or= 6.5 % Please note range changes. Absolute lymphocyte countOrd ered By: Ar Torres on 04-24-2023 Lymphocytes Auto (Unsp spec) [#/Vol] 1.02 10*3/uL 0.83-4.51 [facility] Basophil percentageOrdered B y: Ar Torres on 04-24-2023 Basophils/100 WBC (Bld) 0.8 % 0-1 [facility] Cholesterol [Mass/Vol] 210 mg/dL <200 [facility] Comment on above: <200 mg/dL Desirable 200-240 mg/dL Borderline >240 mg/dL High Risk Eosinophils/100 WBC (Bld) 4.3 % 0-5 [facility] Neutrophils (Bld) [#/Vol] 3.1 10*3/uL 2.0-7.7 [facility] Neutrophils/100 WBC (Bld) 64.2 % 47-70 [facility] Triglyceride [Mass/Vol] 258 mg/dL <199 [facility] Comment on above: The drugs N-Acetylcy steine and Metamizole may falsely depress this assay.Serum Triglycerides Reference Interval Normal <150 mg/dL Borderline high 150 - 199 mg/dL High 200 - 499 mg/dL Very High > or = 500 mg/dL Blood lymphocytes/100 leukoc ytesOrdered By: rA Torres on 04-24-2023 Lymphocytes/100 WBC (Bld) 20.9 % 19-41 [facility] Blood monocytes/100 leukocyt esOrdered By: Ar Torres on 04-24-2023 Monocytes/100 WBC (Bld) 9.2 % 0-10 [facility] INR in Blood by Coagulation assayOrdered By: Ar Torres on 04-24-2023 INR Coag (Bld) [Relative time] 1.0 {INR} [facility] Laboratory - CoagulationOrde red By: Ar Torres on 04-24-2023 aPTT Coag (Bld) [Time] 22.7 s 24.1-36.2 [facility] PT Coag (PPP) [Time] 12.8 s 11.7-14.9 [facility] Laboratory - Hematology and Cell countsOrdered By: Ar Torres on 04-24-2023 Immature granulocytes/100 WBC (Bld) 0.600 % 0.0-0.9 [facility] Comment on above: IG% - Immature Granu locytes (promyelocytes, myelocytes and metamyelocytes) > 1% indicates that a LEFT SHIFT is Present. Nucleated RBC/100 WBC (Bld) [Ratio] 0 % 0-5 [facility] No Panel InformationOrdered By: Rommel Youssef on 04-24-2023 Activated Clotting Time 197 sec 74-137 [facility] No Panel InformationOrdered By: Ar Torres on 04-24-2023 Troponin I High Sensitivity 09025 pg/mL 3.0-78.0 [facility] Comment on above: Critical Result(s) C alled at: 08:06:06 04/24/2023 by: Kendal Mcqueen. Results read back by same. Please Note: New Test Units and Gender Specific Reference Ranges. For more information see Policy Stat Procedure [place] High Sensitivity Troponin (TNIH) and attachments. Serum or plasma cholesterol in HDL measurement (mass/volume)Ordered By: Ar Torres on 04-24-2023 Cholesterol in HDL [Mass/Vol] 71 mg/dL >40 [facility] Comment on above: The drugs N-Acetylcy steine and Metamizole may falsely depress this assay. Reference Range HDL <40 mg/dL Low HDL Cholesterol HDL >or= 60 mg/dL High HDL Cholesterol Serum or plasma cholesterol in VLDL measurement (mass/volume)Ordered By: Ar Torres on 04-24-2023 Cholesterol in VLDL [Mass/Vol] 52 mg/dL 5-40 [facility] Serum or plasma low density lipoprotein (LDL) cholesterol measurement (mass/volume)Ordered By: Ar Torres on 04-24-2023 Cholesterol in LDL [Mass/Vol] 87 mg/dL 0-130 [facility] Absolute lymphocyte countOrd ered By: Perez Dave on 04-23-2023 Lymphocytes Auto (Unsp spec) [#/Vol] 1.69 10*3/uL 0.83-4.51 [facility] Basophil percentageOrdered B y: Perez Dave on 04-23-2023 Basophils/100 WBC (Bld) 1.1 % 0-1 [facility] Chloride [Moles/Vol] 108 mmol/L 98-107 [facility] Eosinophils/100 WBC (Bld) 6.3 % 0-5 [facility] Glucose [Mass/Vol] 104 mg/dL 74-106 [facility] Comment on above: Fasting Glucose resu lt from 100 to 125 mg/dL suggests IMPAIRED HOMEOSTASIS per A.D.A. criteria. Neutrophils (Bld) [#/Vol] 2.5 10*3/uL 2.0-7.7 [facility] Neutrophils/100 WBC (Bld) 48.0 % 47-70 [facility] Potassium [Moles/Vol] 3.4 mmol/L 3.5-5.1 [facility] Sodium [Moles/Vol] 141 mmol/L 136-145 [facility] WBC (Bld) [#/Vol] 5.3 10*3/uL 4.4-11.0 [facility] Blood erythrocytes count (nu mber/volume)Ordered By: Perez Dave on 04-23-2023 RBC (Bld) [#/Vol] 4.28 10*6/uL 4.6-6.2 [facility] Blood hemoglobin measurement (mass/volume)Ordered By: Perez Dave on 04-23-2023 Hemoglobin (Bld) [Mass/Vol] 14.0 g/dL 13.0-16.5 [facility] Blood lymphocytes/100 leukoc ytesOrdered By: Perez Dave on 04-23-2023 Lymphocytes/100 WBC (Bld) 32.1 % 19-41 [facility] Blood monocytes/100 leukocyt esOrdered By: Perez Dave on 04-23-2023 Monocytes/100 WBC (Bld) 12.1 % 0-10 [facility] Blood platelet mean volumeOr dered By: Perez Dave on 04-23-2023 Platelet mean volume (Bld) [Entitic vol] 9.5 fL 6.2-12.0 [facility] Determination of erythrocyte mean corpuscular volume (MCV)Ordered By: Perez Dave on 04-23-2023 MCV (RBC) [Entitic vol] 98.8 fL 80-94 [facility] Hematocrit Auto (Bld) [Volum e fraction]Ordered By: Perez Dave on 04-23-2023 Hematocrit (Bld) [Volume fraction] 42.3 % 40-54 [facility] INR in Blood by Coagulation assayOrdered By: Perez Dave on 04-23-2023 INR Coag (Bld) [Relative time] 1.0 {INR} [facility] Laboratory - Chemistry and C hemistry - challengeOrdered By: Perez Dave on 04-23-2023 CO2 [Moles/Vol] 24.0 mmol/L 21.0-32.0 [facility] Urea nitrogen/Creatinine [Mass ratio] 12.1 mg/mg 10-20 [facility] Laboratory - CoagulationOrde red By: Perez Dave on 04-23-2023 aPTT Coag (Bld) [Time] 23.0 s 24.1-36.2 [facility] PT Coag (PPP) [Time] 12.9 s 11.7-14.9 [facility] Laboratory - Hematology and Cell countsOrdered By: Perez Dave on 04-23-2023 Erythrocyte distribution width (RBC) [Entitic vol] 45.7 fL 35.1-43.9 [facility] Erythrocyte distribution width (RBC) [Ratio] 12.6 % 11.6-14.6 [facility] Immature granulocytes/100 WBC (Bld) 0.400 % 0.0-0.9 [facility] Comment on above: IG% - Immature Granu locytes (promyelocytes, myelocytes and metamyelocytes) > 1% indicates that a LEFT SHIFT is Present. MCH (RBC) [Entitic mass] 32.7 pg 27.0-32.0 [facility] Nucleated RBC/100 WBC (Bld) [Ratio] 0 % 0-5 [facility] MCHC Auto (RBC) [Mass/Vol]Or dered By: Perez Dave on 04-23-2023 MCHC (RBC) [Mass/Vol] 33.1 g/dL 32-36 [facility] No Panel InformationOrdered By: Perez Dave on 04-23-2023 Estimated Creatinine Clearance Calc 70.40 ml/min [facility] Estimated GFR (MDRD) Amer 77 mL/min >60 [facility] Comment on above: GFR Calc Estimated GFR (MDRD) Non-Af Amer 63 mL/min >60 [facility] Comment on above: Non- GFR Calc Troponin I High Sensitivity 6 pg/mL 3.0-78.0 [facility] Comment on above: Please Note: New Joan t Units and Gender Specific Reference Ranges. For more information see Policy Stat Procedure [place] High Sensitivity Troponin (TNIH) and attachments. Platelets bldOrdered By: Priti Dave on 04-23-2023 Platelets (Bld) [#/Vol] 226 10*3/uL 150-450 [facility] Serum or plasma calcium randa urement (mass/volume)Ordered By: [facility] on 04-23-2023 Calcium [Mass/Vol] 8.8 mg/dL 8.5-10.1 [facility] Serum or plasma creatinine m easurement (mass/volume)[facility] Creatinine [Mass/Vol] 1.24 mg/dL 0.70-1.30 [facility] Comment on above: The validity of the calculated GFR & GFRAA in patients over 70 years has not been determined. Clinical correlation is essential. Serum or plasma urea nitroge n measurement (mass/volume)Ordered By: [facility] on 04-23-2023 Urea nitrogen [Mass/Vol] 15 mg/dL 7-18 [facility] Thin prep Papanicolaou smear with manual screeningOrdered By: [facility] on 04-23-2023 Thin prep Papanicolaou smear with manual screening 9 5-15 [facility] Absolute lymphocyte counton 05-06-2022 Lymphocytes Auto (Unsp spec) [#/Vol] 1.23 10*3/uL 0.83-4.51 [facility] Work Phone: Basophil percentageon 2021 Basophils/100 WBC (Bld) 0.7 % 0-1 [facility] Work Phone: Bilirubin [Mass/Vol] 0.50 mg/dL 0.20-1.00 [facility] Work Phone: Comment on above: For patients on eltr ombopag therapy, use of Dimension [place] TBIL is not recommended. Chloride [Moles/Vol] 105 mmol/L 98-107 [facility] Work Phone: Cholesterol [Mass/Vol] 179 mg/dL <200 [facility] Work Phone: Comment on above: <200 mg/dL Desirable 200-240 mg/dL Borderline >240 mg/dL High Risk Eosinophils/100 WBC (Bld) 3.0 % 0-5 [facility] Work Phone: Glucose [Mass/Vol] 104 mg/dL 74-106 [facility] Work Phone: Comment on above: Fasting Glucose resu lt from 100 to 125 mg/dL suggests IMPAIRED HOMEOSTASIS per A.D.A. criteria. Neutrophils (Bld) [#/Vol] 4.0 10*3/uL 2.0-7.7 [facility] Work Phone: Neutrophils/100 WBC (Bld) 66.8 % 47-70 [facility] Work Phone: Potassium [Moles/Vol] 4.3 mmol/L 3.5-5.1 [facility] Work Phone: Comment on above: Slight Hemolysis, Re sult may be falsely increased. Protein [Mass/Vol] 8.3 g/dL 6.4-8.2 [facility] Work Phone: Sodium [Moles/Vol] 140 mmol/L 136-145 [facility] Work Phone: Triglyceride [Mass/Vol] 169 mg/dL <199 [facility] Work Phone: Comment on above: The drugs N-Acetylcy steine and Metamizole may falsely depress this assay.Serum Triglycerides Reference Interval Normal <150 mg/dL Borderline high 150 - 199 mg/dL High 200 - 499 mg/dL Very High > or = 500 mg/dL WBC (Bld) [#/Vol] 6.0 10*3/uL 4.4-11.0 [facility] Work Phone: Blood erythrocytes count (nu mber/volume)on 05-06-2022 RBC (Bld) [#/Vol] 4.85 10*6/uL 4.6-6.2 [facility] Work Phone: Blood hemoglobin measurement (mass/volume)on 05-06-2022 Hemoglobin (Bld) [Mass/Vol] 15.8 g/dL 13.0-16.5 [facility] Work Phone: Blood lymphocytes/100 leukoc yteson 05-06-2022 Lymphocytes/100 WBC (Bld) 20.5 % 19-41 [facility] Work Phone: Blood monocytes/100 leukocyt eson 05-06-2022 Monocytes/100 WBC (Bld) 8.5 % 0-10 [facility] Work Phone: Blood platelet mean volumeon 05-06-2022 Platelet mean volume (Bld) [Entitic vol] 9.9 fL 6.2-12.0 [facility] Work Phone: Determination of erythrocyte mean corpuscular volume (MCV)on 05-06-2022 MCV (RBC) [Entitic vol] 98.4 fL 80-94 [facility] Work Phone: Erythrocyte sedimentation ra bobby 05-06-2022 ESR (Bld) [Velocity] 17 mm[facility]h [facility]: Hematocrit Auto (Bld) [Volum e fraction]on 05-06-2022 Hematocrit (Bld) [Volume fraction] 47.7 % 40-54 [facility] Work Phone: Laboratory - Chemistry and C hemistry - challengeon 05-06-2022 ALP [Catalytic activity/Vol] 82 U/L 45-117 [facility] Work Phone: ALT [Catalytic activity/Vol] 78 U/L 16-61 [facility] Work Phone: CO2 [Moles/Vol] 26.0 mmol/L 21.0-32.0 [facility] Work Phone: Cobalamin (Vitamin B12) [Mass/Vol] 289 pg/mL 211-911 [facility] Work Phone: Globulin (S) [Mass/Vol] 4.7 g/dL 2.2-4.2 [facility] Work Phone: [phone] Urea nitrogen/Creatinine [Mass ratio] 8.1 mg/mg 10-20 [facility] Work Phone: [phone] Laboratory - Hematology and Cell countson 05-06-2022 Erythrocyte distribution width (RBC) [Entitic vol] 46.7 fL 35.1-43.9 [facility] Work Phone: [phone] Erythrocyte distribution width (RBC) [Ratio] 12.9 % 11.6-14.6 [facility] Work Phone: [phone] Immature granulocytes/100 WBC (Bld) 0.500 % 0.0-0.9 [facility] Work Phone: [phone] Comment on above: IG% - Immature Granu locytes (promyelocytes, myelocytes and metamyelocytes) > 1% indicates that a LEFT SHIFT is Present. MCH (RBC) [Entitic mass] 32.6 pg 27.0-32.0 [facility] Work Phone: [phone] Nucleated RBC/100 WBC (Bld) [Ratio] 0 % 0-5 [facility] Work Phone: [phone] MCHC Auto (RBC) [Mass/Vol]on 05-06-2022 MCHC (RBC) [Mass/Vol] 33.1 g/dL 32-36 [facility] Work Phone: [phone] No Panel Informationon 05-06 Estimated GFR (MDRD) Amer 77 mL/min >60 [facility] Work Phone: [phone] Comment on above: GFR Calc Estimated GFR (MDRD) Non-Af Amer 64 mL/min >60 [facility] Work Phone: [phone] Comment on above: Non- GFR Calc Thyroid Stimulating Hormone (TSH) 0.99 uIU/mL 0.358-3.74 [facility] Work Phone: [phone] Vitamin D 25-Hydroxy 37.3 ng/mL [facility] Work Phone: [phone] Comment on above: Vitamin D 25(OH) Sta tus Range Deficiency <20 ng/mL (50nmol/L) Insufficiency 20 - 30 ng/mL (50 - 75 nmol/L) Sufficiency 30 - 100 ng/mL (75 - 250 nmol/L) Toxicity >100 ng/mL (>250 nmol/L) Platelets bldon 05-06-2022 Platelets (Bld) [#/Vol] 223 10*3/uL 150-450 [facility] Work Phone: Serum or plasma albumin randa urement (mass/volume)on 05-06-2022 Albumin [Mass/Vol] 3.6 g/dL 3.2-5.0 [facility] Work Phone: [phone] Serum or plasma albumin/glob ulin mass ratioon 05-06-2022 Albumin/Globulin [Mass ratio] 0.8 {ratio} 0.9-2.4 [facility] Work Phone: Serum or plasma calcium randa urement (mass/volume)on 05-06-2022 Calcium [Mass/Vol] 9.0 mg/dL 8.5-10.1 [facility] Work Phone: Serum or plasma cholesterol in HDL measurement (mass/volume)on 05-06-2022 Cholesterol in HDL [Mass/Vol] 78 mg/dL >40 [facility] Work Phone: Comment on above: The drugs N-Acetylcy steine and Metamizole may falsely depress this assay. Reference Range HDL <40 mg/dL Low HDL Cholesterol HDL >or= 60 mg/dL High HDL Cholesterol Serum or plasma cholesterol in VLDL measurement (mass/volume)on 05-06-2022 Cholesterol in VLDL [Mass/Vol] 34 mg/dL 5-40 [facility] Work Phone: [phone] Serum or plasma creatinine m easurement (mass/volume)on 05-06-2022 Creatinine [Mass/Vol] 1.24 mg/dL 0.70-1.30 [facility] Work Phone: Comment on above: The validity of the calculated GFR & GFRAA in patients over 70 years has not been determined. Clinical correlation is essential. Serum or plasma low density lipoprotein (LDL) cholesterol measurement (mass/volume)on 05-06-2022 Cholesterol in LDL [Mass/Vol] 67 mg/dL 0-130 [facility] Work Phone: [phone] Serum or plasma urea nitroge n measurement (mass/volume)on 05-06-2022 Urea nitrogen [Mass/Vol] 10 mg/dL 7-18 [facility] Work Phone: [phone] Thin prep Papanicolaou smear with manual screeningon 05-06-2022 Thin prep Papanicolaou smear with manual screening 54 U/L 15-37 [facility] Work Phone: [phone] Comment on above: Slight Hemolysis, Re sult may be falsely increased. Thin prep Papanicolaou smear with manual screening 9 5-15 [facility] Work Phone: Basophil percentageon 2021 Chloride [Moles/Vol] 108 mmol/L 98-107 [facility] Work Phone: [phone] Cholesterol [Mass/Vol] 158 mg/dL <200 [facility] Work Phone: [phone] Comment on above: <200 mg/dL Desirable 200-240 mg/dL Borderline >240 mg/dL High Risk Glucose [Mass/Vol] 112 mg/dL 74-106 [facility] Work Phone: [phone] Comment on above: Fasting Glucose resu lt from 100 to 125 mg/dL suggests IMPAIRED HOMEOSTASIS per A.D.A. criteria. Potassium [Moles/Vol] 3.9 mmol/L 3.5-5.1 [facility] Work Phone: [phone] Sodium [Moles/Vol] 139 mmol/L 136-145 [facility] Work Phone: [phone] Triglyceride [Mass/Vol] 147 mg/dL [facility] Work Phone: [phone] Comment on above: The drugs N-Acetylcy steine and Metamizole may falsely depress this assay.Serum Triglycerides Reference Interval Normal <150 mg/dL Borderline high 150 - 199 mg/dL High 200 - 499 mg/dL Very High > or = 500 mg/dL WBC (Bld) [#/Vol] 6.1 10*3/uL 4.4-11.0 [facility] Work Phone: [phone] Blood erythrocytes count (nu mber/volume)on 10-31-2021 RBC (Bld) [#/Vol] 4.40 10*6/uL 4.6-6.2 [facility] Work Phone: [phone] Blood hemoglobin measurement (mass/volume)on 10-31-2021 Hemoglobin (Bld) [Mass/Vol] 14.2 g/dL 13.0-16.5 [facility] Work Phone: [phone] Blood platelet mean volumeon 10-31-2021 Platelet mean volume (Bld) [Entitic vol] 9.9 fL 6.2-12.0 [facility] Work Phone: [phone] Determination of erythrocyte mean corpuscular volume (MCV)on 10-31-2021 MCV (RBC) [Entitic vol] 98.2 fL 80-94 [facility] Work Phone: [phone] Hematocrit Auto (Bld) [Volum e fraction]on 10-31-2021 Hematocrit (Bld) [Volume fraction] 43.2 % 40-54 [facility] Work Phone: [phone] Laboratory - Chemistry and C hemistry - challengeon 10-31-2021 CO2 [Moles/Vol] 28.0 mmol/L 21.0-32.0 [facility] Work Phone: [phone] Urea nitrogen/Creatinine [Mass ratio] 10.0 mg/mg 10-20 [facility] Work Phone: [phone] Laboratory - Hematology and Cell countson 10-31-2021 Erythrocyte distribution width (RBC) [Entitic vol] 46.4 fL 35.1-43.9 [facility] Work Phone: [phone] Erythrocyte distribution width (RBC) [Ratio] 13.0 % 11.6-14.6 [facility] Work Phone: [phone] MCH (RBC) [Entitic mass] 32.3 pg 27.0-32.0 [facility] Work Phone: [phone] MCHC Auto (RBC) [Mass/Vol]on 10-31-2021 MCHC (RBC) [Mass/Vol] 32.9 g/dL 32-36 [facility] Work Phone: No Panel Informationon 10-31 Estimated Creatinine Clearance Calc 98.20 ml/min [facility] Work Phone: Estimated GFR (MDRD) Amer 112 mL/min >60 [facility] Work Phone: Comment on above: GFR Calc Estimated GFR (MDRD) Non-Af Amer 92 mL/min >60 [facility] Work Phone: Comment on above: Non- GFR Calc Thyroid Stimulating Hormone (TSH) 0.80 uIU/mL 0.358-3.74 [facility] Work Phone: [phone] Platelets bldon 10-31-2021 Platelets (Bld) [#/Vol] 188 10*3/uL 150-450 [facility] Work Phone: [phone] Serum or plasma calcium randa urement (mass/volume)on 10-31-2021 Calcium [Mass/Vol] 8.6 mg/dL 8.5-10.1 [facility] Work Phone: [phone] Serum or plasma cholesterol in HDL measurement (mass/volume)on 10-31-2021 Cholesterol in HDL [Mass/Vol] 66 mg/dL [facility] Work Phone: Comment on above: The drugs N-Acetylcy steine and Metamizole may falsely depress this assay. Reference Range HDL <40 mg/dL Low HDL Cholesterol HDL >or= 60 mg/dL High HDL Cholesterol Serum or plasma cholesterol in VLDL measurement (mass/volume)on 10-31-2021 Cholesterol in VLDL [Mass/Vol] 29 mg/dL 5-40 [facility] Work Phone: [phone] Serum or plasma creatinine m easurement (mass/volume)on 10-31-2021 Creatinine [Mass/Vol] 0.90 mg/dL 0.70-1.30 [facility] Work Phone: Comment on above: The validity of the calculated GFR & GFRAA in patients over 70 years has not been determined. Clinical correlation is essential. Serum or plasma low density lipoprotein (LDL) cholesterol measurement (mass/volume)on 10-31-2021 Cholesterol in LDL [Mass/Vol] 63 mg/dL 0-130 [facility] Work Phone: Serum or plasma urea nitroge n measurement (mass/volume)on 10-31-2021 Urea nitrogen [Mass/Vol] 9 mg/dL 7-18 [facility] Work Phone: Thin prep Papanicolaou smear with manual screeningon 10-31-2021 Thin prep Papanicolaou smear with manual screening 3 5-15 [facility] Work Phone: Absolute lymphocyte counton 10-30-2021 Lymphocytes Auto (Unsp spec) [#/Vol] 1.97 10*3/uL 0.83-4.51 [facility] Work Phone: Basophil percentageon 2021 Basophils/100 WBC (Bld) 0.4 % 0-1 [facility] Work Phone: Chloride [Moles/Vol] 106 mmol/L 98-107 [facility] Work Phone: Eosinophils/100 WBC (Bld) 3.4 % 0-5 [facility] Work Phone: Glucose [Mass/Vol] 94 mg/dL 74-106 [facility] Work Phone: Neutrophils (Bld) [#/Vol] 4.2 10*3/uL 2.0-7.7 [facility] Work Phone: Neutrophils/100 WBC (Bld) 58.0 % 47-70 [facility] Work Phone: Potassium [Moles/Vol] 3.9 mmol/L 3.5-5.1 [facility] Work Phone: Comment on above: Moderate Hemolysis, Result may be falsely increased. Sodium [Moles/Vol] 140 mmol/L 136-145 [facility] Work Phone: WBC (Bld) [#/Vol] 7.2 10*3/uL 4.4-11.0 [facility] Work Phone: Blood erythrocytes count (nu mber/volume)on 10-30-2021 RBC (Bld) [#/Vol] 4.96 10*6/uL 4.6-6.2 [facility] Work Phone: Blood hemoglobin measurement (mass/volume)on 10-30-2021 Hemoglobin (Bld) [Mass/Vol] 16.4 g/dL 13.0-16.5 [facility] Work Phone: [phone] Blood lymphocytes/100 leukoc yteson 10-30-2021 Lymphocytes/100 WBC (Bld) 27.6 % 19-41 [facility] Work Phone: [phone] Blood monocytes/100 leukocyt eson 10-30-2021 Monocytes/100 WBC (Bld) 10.3 % 0-10 [facility] Work Phone: Blood platelet mean volumeon 10-30-2021 Platelet mean volume (Bld) [Entitic vol] 9.7 fL 6.2-12.0 [facility] Work Phone: Determination of erythrocyte mean corpuscular volume (MCV)on 10-30-2021 MCV (RBC) [Entitic vol] 96.4 fL 80-94 [facility] Work Phone: Hematocrit Auto (Bld) [Volum e fraction]on 10-30-2021 Hematocrit (Bld) [Volume fraction] 47.8 % 40-54 [facility] Work Phone: Laboratory - Chemistry and C hemistry - challengeon 10-30-2021 CO2 [Moles/Vol] 30.0 mmol/L 21.0-32.0 [facility] Work Phone: Magnesium [Mass/Vol] 2.3 mg/dL 1.6-2.6 [facility] Work Phone: Comment on above: Moderate Hemolysis, Result may be falsely increased. Urea nitrogen/Creatinine [Mass ratio] 16.0 mg/mg 10-20 [facility] Work Phone: [phone] Laboratory - Hematology and Cell countson 10-30-2021 Erythrocyte distribution width (RBC) [Entitic vol] 44.9 fL 35.1-43.9 [facility] Work Phone: [phone] Erythrocyte distribution width (RBC) [Ratio] 12.7 % 11.6-14.6 [facility] Work Phone: [phone] Immature granulocytes/100 WBC (Bld) 0.300 % 0.0-0.9 [facility] Work Phone: [phone] Comment on above: IG% - Immature Granu locytes (promyelocytes, myelocytes and metamyelocytes) > 1% indicates that a LEFT SHIFT is Present. MCH (RBC) [Entitic mass] 33.1 pg 27.0-32.0 [facility] Work Phone: [phone] Nucleated RBC/100 WBC (Bld) [Ratio] 0 % 0-5 [facility] Work Phone: [phone] MCHC Auto (RBC) [Mass/Vol]on 10-30-2021 MCHC (RBC) [Mass/Vol] 34.3 g/dL 32-36 [facility] Work Phone: [phone] No Panel Informationon 10-30 Troponin I High Sensitivity < 3 pg/mL 3.0-78.0 [facility] Work Phone: Comment on above: Please Note: New Joan t Units and Gender Specific Reference Ranges. For more information see Policy Stat Procedure [place] High Sensitivity Troponin (TNIH) and attachments. Troponin I High Sensitivity < 3 pg/mL 3.0-78.0 [facility] Work Phone: Comment on above: Please Note: New Joan t Units and Gender Specific Reference Ranges. For more information see Policy Stat Procedure [place] High Sensitivity Troponin (TNIH) and attachments. D-Dimer Quantitative (PE/DVT) 0.37 FEU/ug/m 0.27-0.49 [facility] Work Phone: [phone] Comment on above: NORMAL D-Dimer level (<0.50) indicates no DVT or PE. Estimated Creatinine Clearance Calc 74.27 ml/min [facility] Work Phone: Estimated GFR (MDRD) Amer 81 mL/min >60 [facility] Work Phone: Comment on above: GFR Calc Estimated GFR (MDRD) Non-Af Amer 67 mL/min >60 [facility] Work Phone: Comment on above: Non- GFR Calc Platelets bldon 10-30-2021 Platelets (Bld) [#/Vol] 235 10*3/uL 150-450 [facility] Work Phone: Serum or plasma calcium randa urement (mass/volume)on 10-30-2021 Calcium [Mass/Vol] 9.5 mg/dL 8.5-10.1 [facility] Work Phone: Serum or plasma creatinine m easurement (mass/volume)on 10-30-2021 Creatinine [Mass/Vol] 1.19 mg/dL 0.70-1.30 [facility] Work Phone: Comment on above: The validity of the calculated GFR & GFRAA in patients over 70 years has not been determined. Clinical correlation is essential. Serum or plasma urea nitroge n measurement (mass/volume)on 10-30-2021 Urea nitrogen [Mass/Vol] 19 mg/dL 7-18 [facility] Work Phone: Thin prep Papanicolaou smear with manual screeningon 10-30-2021 Thin prep Papanicolaou smear with manual screening 4 5-15 [facility] Work Phone: Office Visiton 01-20-2017 Dietary management education, guidance, and counseling (procedure) yes Invalid Interpretation Code [facility] Work Phone: [phone] Documentation of current medications (procedure) Done Invalid Interpretation Code [facility] Work Phone: [phone] Fall risk assessment No Invalid Interpretation Code [facility] Work Phone: [phone] Lab Report: Bilirubin, Direc ton 12-02-2016 Bilirubin (direct) 0.10 mg/dL Invalid Interpretation Code 0.00-0.30 [facility] Work Phone: [phone] Lab Report: Comprehensive Id tabmaren Profilon 12-02-2016 Alanine aminotransferase (ALT) 55 U/L Invalid Interpretation Code 12-78 [facility] Work Phone: [phone] Albumin 4.0 g/dL Invalid Interpretation Code 3.4-5.0 [facility] Work Phone: [phone] Albumin/Globulin Ratio 1 {ratio} Invalid Interpretation Code 0.9-2.4 [facility] Work Phone: [phone] Alkaline phosphatase (ALP) 89 U/L Invalid Interpretation Code 45-117 [facility] Work Phone: [phone] ALP enzyme act/vol (Bld) 89 U/L 45-117 [facility] Work Phone: [phone] Anion gap 5 mmol/L Invalid Interpretation Code 5-15 [facility] Work Phone: [phone] Anion gap molar conc 5 mmol/L 5-[address] [facility] Work Phone: [phone] Aspartate aminotransferase (AST) 38 U/L High 15-37 [facility] Work Phone: [phone] Bilirubin (total) 0.40 mg/dL Invalid Interpretation Code 0.20-1.00 [facility] Work Phone: [phone] BUN/Creatinine Ratio 16.4 RATIO Invalid Interpretation Code 10-20 [facility] Work Phone: [phone] Calcium 8.8 mg/dL Invalid Interpretation Code 8.5-10.1 [facility] Work Phone: [phone] Chloride 108 mmol/L High 98-107 [facility] Work [phone] CO2 25.0 mmol/L Invalid Interpretation Code 21.0-32.0 [facility] Work Phone: [phone] CO2 ppres (BldV) 25.0 mmol/L 21.0-32.0 [facility] Work Phone: [phone] Creatinine 1.10 mg/dL Invalid Interpretation Code 0.70-1.30 [facility] Work Phone: [phone] eGFR (non-black) 74 mL/min/{1.73_m2} Invalid Interpretation Code >60 [facility] Work Phone: [phone] eGFR (non-black) 90 mL/min/{1.73_m2} Invalid Interpretation Code >60 [facility] Work Phone: [phone] EST GFR - AA 90 mL/min >60 [facility] Work Phone: [phone] Globulin 3.9 g/dL High 2.3-3.5 [facility] Work Phone: [phone] Globulin mass conc (S) 3.9 g/dL High 2.3-3.5 [facility] Work Phone: [phone] Glucose 89 mg/dL Invalid Interpretation Code 70-110 [facility] Work Phone: [phone] Glucose mass conc 89 mg/dL 70-110 [facility] Work Phone: [phone] Potassium molar conc 4.1 mmol/L Invalid Interpretation Code 3.5-5.1 [facility] Work Phone: [phone] Protein 7.9 g/dL Invalid Interpretation Code 6.4-8.2 [facility] Work Phone: [phone] Sodium 138 mmol/L Invalid Interpretation Code 136-145 [facility] Work Phone: [phone] Urea nitrogen 18 mg/dL Invalid Interpretation Code 7-18 [facility] Work Phone: [phone] Lab Report: Lipid Profileon 12-02-2016 Cholesterol 146 mg/dL Invalid Interpretation Code 200 [facility] Work Phone: [phone] HDL Cholesterol 55 mg/dL Invalid Interpretation Code [facility] Work Phone: [phone] LDL Cholesterol 64 mg/dL Invalid Interpretation Code 0-130 [facility] Work Phone: [phone] Triglyceride 135 mg/dL Invalid Interpretation Code [facility] Work Phone: [phone] very low density lipoproteins 27 mg/dL Invalid Interpretation Code 5-40 [facility] Work Phone: [phone] Lab Report: PSA,Total - [place] al Screenon 12-02-2016 prostate specific antigen (PSA) screening 0.43 ng/mL Invalid Interpretation Code 0.00-4.00 [facility] Work Phone: [phone] Protein mass conc 0.43 ng/mL 0.00-4.00 [facility] Work Phone: [phone] PSA,TOT SCREEN 0.43 ng/mL Invalid Interpretation Code 0.00-4.00 [facility] Work Phone: [phone] Office Visit: [facility] 07-09-20 Documentation of current medications (procedure) Done Invalid Interpretation Code [facility] Work Phone: [phone] Protein mass conc Done [facility] Work Phone: [phone] Replaced Document: Fernanda Garcia 07-09-2016 EKG QRS axis -27 deg [facility] Work Phone: [phone] electrocardiogram interpretation Sinus Rhythm Low voltage in limb leads. ABNORMAL Invalid Interpretation Code [facility] Work Phone: [phone] GE use only - for [employer] import when terms are not otherwise specified 406 ms Invalid Interpretation Code [facility] Work Phone: [phone] Interpretation Sinus Rhythm Low voltage in limb leads. ABNORMAL [facility] Work Phone: [phone] P [place] 42 deg [facility] Work Phone: [phone] P wave axis, electrocardiogram 42 deg Invalid Interpretation Code [facility] Work Phone: [phone] WA Interval 162 ms [facility] Work Phone: [phone] WA interval, electrocardiogram 162 ms Invalid Interpretation Code [facility] Work Phone: [phone] Pulse (Heart Rate) 75 /min Invalid Interpretation Code [facility] Work Phone: [phone] QRS axis, electrocardiogram -27 deg Invalid Interpretation Code [facility] Work Phone: [phone] QRS Duration 102 ms [facility] Work Phone: [phone] QRS duration, electrocardiogram 102 ms Invalid Interpretation Code [facility] Work Phone: [phone] Interval new path ms [facility] Work Phone: [phone] QT interval, electrocardiogram new path ms Invalid Interpretation Code [facility] Work Phone: [phone] QTc Chan 406 ms [facility] Work Phone: [phone] T [place] 26 deg [facility] Work Phone: [phone] T wave axis, electrocardiogram 26 deg Invalid Interpretation Code [facility] Work Phone: [phone] Office Visiton 01-05-2016 Dietary management education, guidance, and counseling (procedure) yes Invalid Interpretation Code [facility] Work Phone: [phone] Clinical Lists 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: 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 psychologist 11-03-2015 Left ventricular Ejection fraction 55 % Invalid Interpretation Code [facility] Work Phone: [phone] Lab Report: Thyroid Stim Hor nikole (TSH)on 11-01-2015 Thyroid stimulating hormone (TSH) 1.25 u[iU]/mL Invalid Interpretation Code 0.358-3.74 [facility] Work Phone: [phone] Office Visit: [facility] 05-05-20 15 Tobacco smoking status NHIS Former smoker [facility] Work Phone: [phone] Tobacco use CPHS Former smoker Invalid Interpretation Code [facility] Work Phone: [phone] Office Visiton 11-04-2014 cardiac risk group C Invalid Interpretation Code [facility] Work Phone: [phone] General cardiovascular disease 10Y risk [#] Panora.D'Agostino N/A Invalid Interpretation Code [facility] Work Phone: [phone] Vital Signs Date Time Vital Sign Value Performing Clinician Faci [facility]vince 05-05-2025 08:28-0400 Body height 182.[address] Eduard Henley MD Work Phone: [facility] 05-05-2025 08:28-0400 Body mass index (BMI) [Ratio] 26.8 kg/m2 Dr. Eduard Henley MD Work Phone: [facility] 05-05-2025 08:28-0400 Body weight 89.[address] Eduard Henley MD Work Phone: [facility] 05-05-2025 08:28-0400 Diastolic blood pressure 78 mm[Hg] Dr. Eduard Henley MD Work Phone: [facility] 05-05-2025 08:28-0400 Heart rate 75 /min Dr. Eduard Henley MD Work Phone: 6(424)584-225855 [place] [address] 05-05-2025 08:28-0400 Respiratory rate 16 /min Dr. Eduard Henley MD Work Phone: 0(295)629-924655 [place] [address] 05-05-2025 08:28-0400 SaO2% (BldA) [Mass fraction] 98 % Dr. Eduard Henley MD Work Phone: [phone])849-917872 [place] [address] 05-05-2025 08:28-0400 Systolic blood pressure 138 mm[Hg] Dr. Eduard Henley MD Work Phone: 1(904)605-748172 [place] [address] 01-22-2025 22:23-0400 Body temperature 97.9 [degF] Dr. Eduard Henley MD Work Phone: 5(705)594-000072 [place] [address] 01-22-2025 22:23-0400 Diastolic blood pressure 77 mm[Hg] Dr. Eduard Henley MD Work Phone: 0(312)919-616372 [place] [address] 01-22-2025 22:23-0400 Heart rate 104 /min Dr. Eduard Henley MD Work Phone: 0(865)285-771172 [place] [address] 01-22-2025 22:23-0400 Respiratory rate 13 /min Dr. Eduard Henley MD Work Phone: 8(052)162-157772 [place] [address] 01-22-2025 22:23-0400 SaO2% (BldA) [Mass fraction] 98 % Dr. Eduard Henley MD Work Phone: 4(109)311-629955 [place] [address] 01-22-2025 22:23-0400 Systolic blood pressure 120 mm[Hg] Dr. Eduard Henley MD Work Phone: 1(640)621-308072 [place] [address] 01-22-2025 21:30-0400 Inhaled oxygen flow rate 2 L/min Dr. Eduard Henley MD Work Phone: 0(466)464-062272 [place] [address] 01-22-2025 20:30-0400 Body height 182.[address] Eduard Henley MD Work Phone: 0(226)217-202572 [place] [address] 01-22-2025 20:30-0400 Body mass index (BMI) [Ratio] 29 kg/m2 Dr. Eduard Henley MD Work Phone: 2(224)750-964272 [place] [address] 01-22-2025 20:30-0400 Body weight 97.[address] Eduard Henley MD Work Phone: 4(374)630-082472 [place] [address] 01-22-2025 18:07-0400 Diastolic blood pressure 91 mm[Hg] Dr. Eduard Henley MD Work Phone: 9(641)343-458872 [place] [address] 01-22-2025 18:07-0400 Systolic blood pressure 145 mm[Hg] Dr. Eduard Henley MD Work Phone: 5(204)476-287772 [place] [address] 01-22-2025 17:00-0400 Heart rate 72 /min Dr. Eduard Henley MD Work Phone: 8(086)249-648172 [place] [address] 01-22-2025 17:00-0400 Respiratory rate 18 /min Dr. Eduard Henley MD Work Phone: 0(709)037-329872 [place] [address] 01-22-2025 17:00-0400 SaO2% (BldA) [Mass fraction] 100 % Dr. Eduard Henley MD Work Phone: 5(881)001-198772 [place] [address] 01-22-2025 13:46-0400 Body height 182.[address] Eduard Henley MD Work Phone: 4(305)088-791272 [place] [address] 01-22-2025 13:46-0400 Body mass index (BMI) [Ratio] 27.1 kg/m2 Dr. Eduard Henley MD Work Phone: 0(374)422-353472 [place] [address] 01-22-2025 13:46-0400 Body temperature 97.5 [degF] Dr. Eduard Henley MD Work Phone: 5(898)307-919572 [place] [address] 01-22-2025 13:46-0400 Body weight 90.[address] Eduard Henley MD Work Phone: 0(604)646-450272 [place] [address] 09-03-2024 03:53-0500 Body temperature 98 [degF] Dr. Eduard Henley MD Work Phone: 1(306)111-138455 [place] [address] 09-03-2024 03:53-0500 Diastolic blood pressure 100 mm[Hg] Dr. Eduard Henley MD Work Phone: 1(217)966-016256 [address] 09-03-2024 03:53-0500 Heart rate 86 /min Dr. Eduard Henley MD Work Phone: 7(776)293-059772 [place] [address] 09-03-2024 03:53-0500 Respiratory rate 18 /min Dr. Eduard Henley MD Work Phone: 1(442)172-986172 [place] [address] 09-03-2024 03:53-0500 SaO2% (BldA) [Mass fraction] 98 % Dr. Eduard Henley MD Work Phone: 3(212)891-117772 [place] [address] 09-03-2024 03:53-0500 Systolic blood pressure 145 mm[Hg] Dr. Eduard Henley MD Work Phone: 0(660)287-146372 [place] [address] 09-03-2024 00:23-0500 Body mass index (BMI) [Ratio] 28.6 kg/m2 Dr. Eduard Henley MD Work Phone: 7(979)127-098772 [place] [address] 09-03-2024 00:23-0500 Body weight 95.[address] Eduard Henley MD Work Phone: 1(916)248-394372 [place] [address] 08-06-2024 13:53-0500 Body mass index (BMI) [Ratio] 28 kg/m2 Dr. Eduard Henley MD Work Phone: [phone] [place] [address] 08-06-2024 13:53-0500 Body weight 93.[address] Eduard Henley MD Work Phone: 3(925)497-795272 [place] [address] 08-06-2024 13:53-0500 Diastolic blood pressure 89 mm[Hg] Dr. Eduard Henley MD Work Phone: 0(878)655-433772 [place] [address] 08-06-2024 13:53-0500 Heart rate 89 /min Dr. Eduard Henley MD Work Phone: 8(475)696-273872 [place] [address] 08-06-2024 13:53-0500 Respiratory rate 16 /min Dr. Eduard Henley MD Work Phone: 4(652)758-147672 [place] [address] 08-06-2024 13:53-0500 Systolic blood pressure 138 mm[Hg] Dr. Eduard Henley MD Work Phone: 8(975)309-676972 [place] [address] 10-02-2023 08:45-0500 Body temperature 98.6 [degF] Dr. Sergei Henley Work Phone: 1(672)801-122372 [place] [address] 10-02-2023 08:45-0500 Diastolic blood pressure 84 mm[Hg] Dr. Sergei Henley Work Phone: 2(930)924-983772 [place] [address] 10-02-2023 08:45-0500 Heart rate 83 /min Dr. Sergei Henley Work Phone: 4(723)859-323572 [place] [address] 10-02-2023 08:45-0500 Respiratory rate 18 /min Dr. Sergei Henley Work Phone: 1(826)304-971572 [place] [address] 10-02-2023 08:45-0500 SaO2% (BldA) [Mass fraction] 97 % Dr. Sergei Henley Work Phone: 6(649)761-118572 [place] [address] 10-02-2023 08:45-0500 Systolic blood pressure 117 mm[Hg] Dr. Sergei Henley Work Phone: 9(359)990-680972 [place] [address] 10-02-2023 06:44-0500 Body height 182.[address] Sergei Henley Work Phone: 7(421)656-139955 [place] [address] 10-02-2023 06:44-0500 Body mass index (BMI) [Ratio] 27.5 kg/m2 Dr. Sergei Henley Work Phone: 3(198)346-761072 [place] [address] 10-02-2023 06:44-0500 Body weight [address] Sergei Henley Work Phone: 1(073)162-677872 [place] [address] 09-11-2023 08:30-0500 Body height 182.[address] Sergei Henley Work Phone: [facility] 09-11-2023 08:27-0500 Body mass index (BMI) [Ratio] 28.6 kg/m2 Dr. Sergei Henley Work Phone: [facility] 09-11-2023 08:27-0500 Body weight 95.[address] Sergei Henley Work Phone: [facility] 09-11-2023 08:27-0500 Diastolic blood pressure 85 mm[Hg] Dr. Sergei Henley Work Phone: [facility] 09-11-2023 08:27-0500 Heart rate 77 /min Dr. Sergei Henley Work Phone: [facility] 09-11-2023 08:27-0500 Respiratory rate 18 /min Dr. Sergei Henley Work Phone: [facility] 09-11-2023 08:27-0500 Systolic blood pressure 141 mm[Hg] Dr. Sergei Henley Work Phone: [facility] 07-17-2023 08:17-0500 Body mass index (BMI) [Ratio] 28.9 kg/m2 Dr. Sergei Henley Work Phone: [facility] 07-17-2023 08:17-0500 Body temperature 97.2 [degF] Dr. Sergei Henley Work Phone: [facility] 07-17-2023 08:17-0500 Body weight 96.[address] Sergei Henley Work Phone: [facility] 07-17-2023 08:17-0500 Diastolic blood pressure 88 mm[Hg] Dr. Sergei Henley Work Phone: [facility] 07-17-2023 08:17-0500 Heart rate 78 /min Dr. Sergei Henley Work Phone: [facility] 07-17-2023 08:17-0500 Respiratory rate 18 /min Dr. Sergei Henley Work Phone: [facility] 07-17-2023 08:17-0500 SaO2% (BldA) [Mass fraction] 98 % Dr. Sergei Henley Work Phone: [facility] 07-17-2023 08:17-0500 Systolic blood pressure 125 mm[Hg] Dr. Sergei Henley Work Phone: 3(338)978-572856 [address] 06-15-2023 07:26-0500 Body temperature 97.9 [degF] Dr. Sergei Henley Work Phone: 7(511)695-037556 [address] 06-15-2023 07:26-0500 Diastolic blood pressure 83 mm[Hg] Dr. Sergei Henley Work Phone: 3(081)851-129556 [address] 06-15-2023 07:26-0500 Heart rate 80 /min Dr. Sergei Henley Work Phone: 6(737)642-040356 [address] 06-15-2023 07:26-0500 Respiratory rate 16 /min Dr. Sergei Henley Work Phone: 4(799)432-356256 [address] 06-15-2023 07:26-0500 SaO2% (BldA) [Mass fraction] 99 % Dr. Sergei Henley Work Phone: 1(652)786-415856 [address] 06-15-2023 07:26-0500 Systolic blood pressure 119 mm[Hg] Dr. Sergei Henley Work Phone: 1(065)560-848855 [place] [address] 06-14-2023 21:15-0400 Body height 182.[address] Sergei Henley Work Phone: 5(249)392-941156 [address] 06-14-2023 21:15-0400 Body mass index (BMI) [Ratio] 29 kg/m2 Dr. Sergei Henley Work Phone: 6(896)593-076672 [place] [address] 06-14-2023 21:15-0400 Body weight 97.[address] Sergei Henley Work Phone: 4(057)659-649756 [address] 06-14-2023 21:09-0400 Body temperature 98.4 [degF] Dr. Sergei Henley Work Phone: [facility] 06-14-2023 21:09-0400 Diastolic blood pressure 100 mm[Hg] Dr. Sergei Henley Work Phone: [facility] 06-14-2023 21:09-0400 Heart rate 88 /min Dr. Sergei Henley Work Phone: [facility] 06-14-2023 21:09-0400 Respiratory rate 22 /min Dr. Sergei Henley Work Phone: [facility] 06-14-2023 21:09-0400 SaO2% (BldA) [Mass fraction] 93 % Dr. Sergei Henley Work Phone: 7(080)029-143056 [address] 06-14-2023 21:09-0400 Systolic blood pressure 152 mm[Hg] Dr. Sergei Henley Work Phone: 1(043)198-559455 [place] [address] 06-14-2023 16:36-0400 Body height 182.[address] Sergei Henley Work Phone: 8(617)301-807255 [place] [address] 06-14-2023 16:36-0400 Body mass index (BMI) [Ratio] 28.8 kg/m2 Dr. Sergei Henley Work Phone: [facility] 06-14-2023 16:36-0400 Body weight 96.[address] Sergei Henley Work Phone: [facility] 05-20-2023 13:29-0400 Body height 182.[address] Sergei Henley Work Phone: 9(975)566-208655 [place] [address] 05-20-2023 13:27-0400 Body mass index (BMI) [Ratio] 29.4 kg/m2 Dr. Sergei Henley Work Phone: [facility] 05-20-2023 13:27-0400 Body weight 98.[address] Sergei Henley Work Phone: 0(428)091-744855 [place] [address] 05-20-2023 13:27-0400 Diastolic blood pressure 80 mm[Hg] Dr. Sergei Henley Work Phone: [facility] 05-20-2023 13:27-0400 Heart rate 84 /min Dr. Sergei Henley Work Phone: [facility] 05-20-2023 13:27-0400 Respiratory rate 18 /min Dr. Sergei Henley Work Phone: [facility] 05-20-2023 13:27-0400 Systolic blood pressure 131 mm[Hg] Dr. Sergei Henley Work Phone: [facility] 04-25-2023 13:00-0400 Body mass index (BMI) [Ratio] 28.9 kg/m2 Dr. Sergei Henley Work Phone: 4(749)910-247556 [address] 04-25-2023 10:23-0400 Body temperature 97.8 [degF] Dr. Sergei Henley Work Phone: 1(045)482-007256 [address] 04-25-2023 10:23-0400 Diastolic blood pressure 78 mm[Hg] Dr. Sergei Henley Work Phone: 9(251)377-231356 [address] 04-25-2023 10:23-0400 Heart rate 63 /min Dr. Sergei Henley Work Phone: 3(434)217-367455 [place] [address] 04-25-2023 10:23-0400 Respiratory rate 18 /min Dr. Sergei Henley Work Phone: [facility] 04-25-2023 10:23-0400 SaO2% (BldA) [Mass fraction] 96 % Dr. Sergei Henley Work Phone: [facility] 04-25-2023 10:23-0400 Systolic blood pressure 112 mm[Hg] Dr. Sergei Henley Work Phone: [facility] 04-24-2023 00:09-0400 Body height 182.[address] Sergei Henley Work Phone: [facility] 04-24-2023 00:09-0400 Body weight 96.[address] Sergei Henley Work Phone: [facility] 04-23-2023 23:38-0400 Body temperature 97.9 [degF] [facility] 04-23-2023 23:38-0400 Diastolic blood pressure 83 mm[Hg] [facility] 04-23-2023 23:38-0400 Heart rate 86 /min [facility] 04-23-2023 23:38-0400 Respiratory rate 17 /min [facility] 04-23-2023 23:38-0400 SaO2% (BldA) [Mass fraction] 99 % [facility] 04-23-2023 23:38-0400 Systolic blood pressure 126 mm[Hg] [facility] 04-23-2023 21:58-0400 Body height 182.88 cm [facility] 04-23-2023 21:58-0400 Body mass index (BMI) [Ratio] 29.5 kg/m2 [facility] 04-23-2023 21:58-0400 Body weight 98.7 kg [facility] 10-31-2021 10:52-0400 Body temperature 97.6 [degF] Dr. Sergei Henley Work Phone: [facility] Work Phone: 10-31-2021 10:52-0400 Diastolic blood pressure 86 mm[Hg] Dr. Sergei Henley Work Phone: [facility] Work Phone: 10-31-2021 10:52-0400 Heart rate 83 /min Dr. Sergei Henley Work Phone: [facility] Work Phone: 10-31-2021 10:52-0400 Respiratory rate 16 /min Dr. Sergei Henley Work Phone: [facility] Work Phone: 10-31-2021 10:52-0400 SaO2% (BldA) [Mass fraction] 96 % Dr. Sergei Henley Work Phone: [facility] Work Phone: 10-31-2021 10:52-0400 Systolic blood pressure 133 mm[Hg] Dr. Sergei Henley Work Phone: [facility] Work Phone: 10-30-2021 19:35-0400 Body height 182.[address] Sergei Henley Work Phone: [facility] Work Phone: 10-30-2021 19:35-0400 Body mass index (BMI) [Ratio] 29 kg/m2 Dr. Sergei Henley Work Phone: [facility] Work Phone: 10-30-2021 19:35-0400 Body weight [address] Sergei Henley Work Phone: [facility] Work Phone: 10-30-2021 19:18-0400 Body temperature 98.2 [degF] Dr. Sergei Henley Work Phone: [facility] Work Phone: 10-30-2021 19:18-0400 Diastolic blood pressure 89 mm[Hg] Dr. Sergei Henley Work Phone: [facility] Work Phone: 10-30-2021 19:18-0400 Heart rate 99 /min Dr. Sergei Henley Work Phone: [facility] Work Phone: 10-30-2021 19:18-0400 Respiratory rate 16 /min Dr. Sergei Henley Work Phone: [facility] Work Phone: 10-30-2021 19:18-0400 SaO2% (BldA) [Mass fraction] 99 % Dr. Sergei Henley Work Phone: [facility] Work Phone: 10-30-2021 19:18-0400 Systolic blood pressure 142 mm[Hg] Dr. Sergei Henley Work Phone: [facility] Work Phone: 10-30-2021 15:00-0400 Body mass index (BMI) [Ratio] 30.2 kg/m2 Dr. Sergei Henley Work Phone: [facility] Work Phone: 10-30-2021 15:00-0400 Body weight 100.[address] Sergei Henley Work Phone: [facility] Work Phone: 08-20-2021 07:38-0500 Diastolic blood pressure 75 mm[Hg] Dr. Sergei Henley Work Phone: [facility] Work Phone: 08-20-2021 07:38-0500 Systolic blood pressure 138 mm[Hg] Dr. Sergei Henley Work Phone: [facility] Work Phone: 08-14-2020 07:21-0500 Body mass index (BMI) [Ratio] 29.1 kg/m2 Dr. Sergei Henley Work Phone: [facility] Work Phone: 01-20-2017 08:42-0400 BMI (Body Mass Index) 28.34 kg/m2 Zee King [facility] Work Phone: 01-20-2017 08:42-0400 BP Diastolic 76 mm[Hg] [facility] Work Phone: 01-20-2017 08:42-0400 BP Systolic 118 mm[Hg] [facility] Cindi[facility] Work Phone: 01-20-2017 08:42-0400 Height 182.88 cm [facility] Cindihernik [facility] Work Phone: 01-20-2017 08:42-0400 Pulse (Heart Rate) 88 /min Harumi DeFinis [facility] Work Phone: 01-20-2017 08:42-0400 Respiratory Rate 20 /min Harumi DeFinis [facility] Work Phone: 01-20-2017 08:42-0400 Weight 94.8 kg Harumi DeFinis [facility] Work Phone: 07-09-2016 08:40-0500 Heart rate 75 /min Harumi DeFinis [facility] Work Phone: 07-09-2016 08:26-0500 BMI (Body Mass Index) 28.33 kg/m2 Harumi DeFinhenrik [facility] Work Phone: 07-09-2016 08:26-0500 BP Diastolic 90 mm[Hg] Harumi DeFinis [facility] Work Phone: 07-09-2016 08:26-0500 BP Systolic 130 mm[Hg] Harumi DeFinis [facility] Work Phone: 07-09-2016 08:26-0500 BSA (Body Surface Area) 2.17 m2 Harumi DeFinis [facility] Work Phone: 07-09-2016 08:26-0500 Pulse (Heart Rate) 75 /min Harumi DeFinis [facility] Work Phone: 07-09-2016 08:26-0500 Respiratory Rate 16 /min Harumi DeFinis [facility] Work Phone: 07-09-2016 08:26-0500 Weight 94.76 kg Harumi DeFinis [facility] Work Phone: 07-07-2010 15:49-0500 Height 182.88 cm Harumi DeFinis [facility] Work Phone: Encounters Encounter Date Encounter Type Care Provider Facility Start: 06-10-2025 ambulatory Eduard Henley Faccedrick lity:[facility] Start: 06-09-2025 End: 06-10-2025 [facility] Facility[facility] Start: 05-05-2025 End: 05-05-2025 Patient encounter procedure Mitchell BELLO -[facility] Work Phone: Start: 05-05-2025 End: 05-05-[address] Eduard Henley MD Work Phone: -[facility] Start: 01-27-2025 End: 01-27-[address] Eduard Henley MD Work Phone: [facility] Work Phone: Start: 01-27-2025 End: 01-27-[address] Eduard Henley MD -[place] Start: 01-27-2025 End: 01-27-2025 ambulatory Eduard Henley Facility:[facility] Start: 01-22-2025 End: 01-22-2025 Emergency department patient visit Dr. Eduard Henley MD Work Phone: -Emergency Department Work Phone: Start: 01-22-2025 End: 01-22-2025 Emergency department patient visit Dr. Eduard Henley MD Work Phone: -Emergency Department Work Phone: Start: 11-09-2024 End: 11-09-2024 Patient encounter procedure Mg Lewis [place] -[facility] Work Phone: Start: 11-09-2024 End: 11-09-2024 ambulatory Eduard Henley Facility:[facility] Start: 11-03-2024 ambulatory Eduard Henley Faci lity:[facility] Start: 11-03-2024 Non-patient / Non-visit [facility] Madrigal [facility] Start: 11-03-2024 End: 11-03-[address] Eduard Henley MD Work Phone: [facility] Work Phone: Start: 11-03-2024 End: 11-03-2024 Patient encounter procedure Mitchell Dubois [employer]-C -[facility] Work Phone: Start: 11-03-2024 End: 11-03-2024 ambulatory Eduard Henley Facility:[facility] Start: 09-28-2024 End: 09-28-[address] Eduard Henley MD -[facility] Start: 09-28-2024 End: 09-28-2024 ambulatory Eduard Henley Facility:[facility] Start: 09-03-2024 ambulatory Eduard Henley Faci lity:[facility] Start: 09-03-2024 Non-patient / Non-visit Dr. Francheska [place] MD -[facility] Work Phone: Start: 09-03-2024 End: 09-03-[address] Eileen [place] MD -[facility] Work Phone: Start: 09-03-2024 End: 09-03-2024 Emergency department patient visit Dr. Jesus Romero DO -Emergency Department Work Phone: Start: 09-03-2024 End: 09-03-2024 ambulatory Eileen Ray Facility:[facility] Start: 08-06-2024 End: 08-06-[address] Jose Lockwood [facility] Work Phone: Start: 08-06-2024 End: 08-06-2024 ambulatory Eduard Henley Facility:[facility] Start: 10-02-2023 Non-patient / Non-visit Dr. Mario Henley Work Phone: [facility] Start: 10-02-2023 End: 10-02-2023 Admission to same day surgery center Dr. Sergei Henley Work Phone: [facility] Work Phone: Start: 10-02-2023 End: 10-02-[address] Sergei Henley Work Phone: [facility] Work Phone: Start: 09-11-2023 End: 09-11-[address] Sergei Henley Work Phone: [facility] Work Phone: Start: 09-10-2023 End: 09-10-[address] Sergei Henley Work Phone: [facility] Work Phone: Start: 09-10-2023 End: 09-10-[address] Sergei Henley Work Phone: [facility] Start: 07-17-2023 End: 07-17-[address] Sergei Henley Work Phone: [facility] Work Phone: Start: 07-07-2023 End: 07-07-[address] Sergei Henley Work Phone: [facility] Work Phone: Start: 07-07-2023 End: 07-07-[address] Sergei Henley Work Phone: [facility] Work Phone: Start: 06-15-2023 Non-patient / Non-visit Dr. Mario Henley Work Phone: [facility] Work Phone: Start: 06-14-2023 End: 06-15-2023 Evaluation and management of inpatient Dr. Sergei Henley Work Phone: [facility] Work Phone: Start: 06-14-2023 End: 06-15-[address] Sergei Henley Work Phone: [facility] Work Phone: Start: 06-02-2023 End: 06-02-[address] Sergei Henley Work Phone: [facility] Work Phone: Start: 06-02-2023 End: 06-02-[address] Sergei Henley Work Phone: [facility] Start: 05-20-2023 End: 05-20-[address] Sergei Henley Work Phone: [facility] Work Phone: Start: 04-25-2023 Non-patient / Non-visit Dr. Mario Henley Work Phone: [facility] Work Phone: Start: 04-25-2023 Non-patient / Non-visit Dr. Mario Henley Work Phone: [facility] Start: 04-24-2023 Non-patient / Non-visit Dr. Mario Henley Work Phone: [facility] Start: 04-23-2023 Non-patient / Non-visit Dr. Mario Henley Work Phone: [facility] Work Phone: Start: 04-23-2023 End: 04-25-2023 Evaluation and management of inpatient [facility] Work Phone: Start: 05-06-2022 End: 05-06-2022 ambulatory [facility] Work Phone: Start: 05-06-2022 End: 05-06-2022 Patient encounter procedure [facility] Start: 10-31-2021 Non-patient / Non-visit Dr. Mario Henley Work Phone: [facility] Start: 10-30-2021 Non-patient / Non-visit Dr. Mario Henley Work Phone: [facility] Start: 10-30-2021 End: 10-31-2021 Evaluation and management of inpatient Dr. Sergei Henley Work Phone: [facility] Start: 08-20-2021 End: 08-20-[address] Sergei Henley Work Phone: [facility] Procedures Date Procedure Procedure Detail Performing Clinician Start: 01-27-2025 Chocolate MARCOS Henley MD Work Phone: Start: 01-27-2025 Food MARCOS Henley MD Work Phone: Start: 01-27-2025 Shrimp MARCOS Henley MD Work Phone: Start: 01-22-2025 Plain [...] med using the TPSA assay method for the[employer] chemistry system. Values obtained with differentassay methods [...] 11-28-2016 End: 12-02-2016 *Hepatic Function Panel Bhavani Laureano Shai grajeda PA-C Work Phone: Start: 11-28-2016 End: 12-02-2016 Lipid panel [AGGREGATE] Bhavani Laureano Shai grajeda PA-C Work Phone: Start: 07-09-2016 End: 07-09-2016 Follow Up Appt 6 months Bhavani Laureano Shai grajeda PA-C Work Phone: Start: 07-09-2016 End: 07-09-2016 PFM Bhavani Ralph PA-C Work Phone: Start: 07-09-2016 End: 07-09-2016 Follow Up Appt 6 months Bhavani Sridevi Shai grajeda PA-C Work Phone: Start: 07-09-2016 End: 07-09-2016 PFM Bhavani Ralph PA-C Work Phone: Start: 05-03-2016 End: 05-30-2016 *Hepatic Function Panel Bhavani Laureano Shai grajeda PA-C Work Phone: Start: 05-03-2016 End: 05-30-2016 Lipid 1996 panel - Serum or Plasma Bhavani Ralph PA-C Work Phone: Start: 05-03-2016 End: 05-30-2016 *Hepatic Function Panel Bhavani Laureano Shai grajeda PA-C Work Phone: Start: 05-03-2016 End: 05-30-2016 Lipid panel [AGGREGATE] Bhavani Laureano Shai grajeda PA-C Work Phone: Start: 01-05-2016 End: 01-05-2016 Follow Up Appt 6 months Brain Whyte MD Start: 01-05-2016 End: 01-05-2016 M Brain Whyte MD Start: 01-05-2016 End: 01-05-2016 [...] PA-C Work Phone: Start: 05-05-2015 End: 05-30-2016 PFSridevi Ralph PA-C Work Phone: Start: 05-01-2015 End: [...] PF Bhavani Ralph PA-C Work Phone: Start: 04-11-2014 [...] Brain Whyte MD Start: 10-25-2013 End: 10-25-2013 MM Brain Whyte MD Start: 10-25-2013 End: 11-10-2013 [...] PA-C Work Phone: Start: 01-11-2013 End: 01-11-2013 PF Bhavani Ralph PA-C Work Phone: Start: 01-11-2013 End: 01-11-2013 Follow Up Appt 6 months Bhavani grajeda PA-C Work Phone: Start: 01-11-2013 End: 01-11-2013 PFSridevi Bhavani Ralph PA-C Work Phone: Start: 11-09-2012 [...] Lipid 1996 panel - Serum or Plasma Barin Whyte MD Start: 06-01-2012 End: 06-10-2012 *Hepatic [...] Date Care Activity Detail Author Start: 01-22-2025 [facility] Start: 01-22-2025 End: 01-22-2025 [facility] Start: 09-03-2024 [facility] Start: 10-02-2023 Patient discharge [facility] Start: 06-15-2023 Patient discharge [facility] Start: 06-14-2023 Following clinical pathway protocol [facility] Start: 06-14-2023 Assessment of risk of venous thromboembolism [facility] Start: 06-14-2023 Inhalation therapy procedure [facility] Start: 06-14-2023 Insertion of catheter into peripheral vein [facility] Start: 06-14-2023 Providing care according to standard [facility] Start: 06-14-2023 Provision of activity privileges [facility] Start: 06-14-2023 [facility] Start: 06-14-2023 Admission procedure [facility] Start: 06-14-2023 Verification routine [facility] Start: 06-14-2023 Hospital admission, emergency, from emergency room, medical nature [facility] Start: 04-25-2023 Patient referral [facility] Work Phone: Start: 04-25-2023 Patient discharge [facility] Start: 04-24-2023 Cardiac monitoring [facility] Start: 04-24-2023 Cardiac rehabilitation - phase 1 [facility] Start: 04-24-2023 Cardiac rehabilitation - phase 2 [facility] Start: 04-24-2023 Patient discharge [facility] Start: 04-24-2023 Systemic arterial pressure monitoring [facility] Start: 04-24-2023 End: 04-24-2023 Taking patient vital signs [facility] Start: 04-24-2023 Vascular disease risk assessment [facility] Start: 04-24-2023 Vital signs measurements [facility] Start: 04-24-2023 End: 04-24-2023 [facility] Start: 04-24-2023 End: 04-24-2023 Notification of physician [facility] Start: 04-24-2023 Patient education [facility] Start: 04-24-2023 Provision of activity privileges [facility] Start: 04-24-2023 Pulse taking [facility] Start: 04-24-2023 Wound care [facility] Start: 04-24-2023 Referral to supervisor receiving and processing [facility] Start: 04-24-2023 Following clinical pathway protocol [facility] Start: 04-24-2023 Assessment of risk of venous thromboembolism [facility] Start: 04-24-2023 Cardiac monitoring [facility] Start: 04-24-2023 Catheterization of vein [facility] Start: 04-24-2023 Elevation of head of bed [facility] Start: 04-24-2023 Exercises [facility] Start: 04-24-2023 Implementation of planned interventions [facility] Start: 04-24-2023 Insertion of catheter into peripheral vein [facility] Start: 04-24-2023 Measuring intake and output [facility] Start: 04-24-2023 Notification of physician [facility] Start: 04-24-2023 Providing care according to standard [facility] Start: 04-24-2023 Provision of activity privileges [facility] Start: 04-24-2023 Referral to occupational therapist [facility] Start: 04-24-2023 Referral to service [facility] Start: 04-24-2023 Speech therapy assessment [facility] Start: 04-24-2023 Tobacco use cessation education [facility] Start: 04-24-2023 [facility] Start: 04-24-2023 Vital signs measurements [facility] Start: 04-23-2023 Electrocardiographic procedure [facility] Start: 04-23-2023 Verification routine [facility] Start: 04-23-2023 Admission procedure [facility] Start: 04-23-2023 Oxygen therapy [facility] Start: 04-23-2023 [facility] Start: 01-26-2018 End: 01-26-2018 Appointment Appointment [facility] Work Phone: Start: 08-12-2017 End: 08-12-2017 Appointment Appointment [facility] Work Phone: Start: 06-03-2017 End: 12-06-2016 *Hepatic Function Panel *Hepatic Function Panel [facility] Work Phone: Start: 06-03-2017 End: 12-06-2016 Lipid panel [AGGREGATE] *Lipid Profile CC PCP [facility] Work Phone: Start: 06-03-2017 End: 12-06-2016 *Hepatic Function Panel *Hepatic Function Panel [facility] Work Phone: Start: 06-03-2017 End: 12-06-2016 Lipid panel [AGGREGATE] *Lipid Profile CC PCP [facility] Work Phone: Start: 01-20-2017 End: 01-20-2017 Appointment Appointment [facility] Work Phone: Start: 01-20-2017 End: 01-20-2017 Appointment Appointment [facility] Work Phone: Start: 01-20-2017 End: 01-20-2017 Follow Up Appt 6 months Follow Up Appt 6 months [facility] Work Phone: Start: 01-20-2017 End: 01-20-2017 MMM MMM [facility] Work Phone: Start: 11-28-2016 End: 12-02-2016 *Hepatic Function Panel *Hepatic Function Panel [facility] Work Phone: Start: 11-28-2016 End: 12-02-2016 Lipid panel [AGGREGATE] *Lipid Profile CC PCP [facility] Work Phone: Start: 11-28-2016 End: 12-02-2016 *Hepatic Function Panel *Hepatic Function Panel [facility] Work Phone: Start: 11-28-2016 End: 12-02-2016 Lipid panel [AGGREGATE] *Lipid Profile CC PCP [facility] Work Phone: Start: 07-09-2016 End: 07-09-2016 Follow Up Appt 6 months Follow Up Appt 6 months [facility] Work Phone: Start: 07-09-2016 End: 07-09-2016 PFM PFM [facility] Work Phone: Start: 07-09-2016 End: 07-09-2016 Follow Up Appt 6 months Follow Up Appt 6 months [facility] Work Phone: Start: 07-09-2016 End: 07-09-2016 PFM PFM [facility] Work Phone: Start: 05-03-2016 End: 05-30-2016 *Hepatic Function Panel *Hepatic Function Panel [facility] Work Phone: Start: 05-03-2016 End: 05-30-2016 Lipid panel [AGGREGATE] *Lipid Profile CC PCP [facility] Work Phone: Start: 05-03-2016 End: 05-30-2016 *Hepatic Function Panel *Hepatic Function Panel [facility] Work Phone: Start: 05-03-2016 End: 05-30-2016 Lipid panel [AGGREGATE] *Lipid Profile CC PCP [facility] Work Phone: Start: 01-05-2016 End: 01-05-2016 Follow Up Appt 6 months Follow Up Appt 6 months [facility] Work Phone: Start: 01-05-2016 End: 01-05-2016 MMM MMM [facility] Work Phone: Start: 01-05-2016 End: 01-05-2016 Follow Up Appt 6 months Follow Up Appt 6 months [facility] Work Phone: Start: 01-05-2016 End: 01-05-2016 MMM MMM [facility] Work Phone: Start: 10-31-2015 End: 11-01-2015 *Hepatic Function Panel *Hepatic Function Panel [facility] Work Phone: Start: 10-31-2015 End: 11-01-2015 Lipid panel [AGGREGATE] *Lipid Profile CC PCP [facility] Work Phone: Start: 10-31-2015 End: 11-01-2015 *Hepatic Function Panel *Hepatic Function Panel [facility] Work Phone: Start: 10-31-2015 End: 11-01-2015 Lipid panel [AGGREGATE] *Lipid Profile CC PCP [facility] Work Phone: Start: 05-05-2015 End: 05-01-2015 *Hepatic Function Panel *Hepatic Function Panel [facility] Work Phone: Start: 05-05-2015 End: 05-30-2016 Ecg routine ecg w/least 12 lds w/i&r EKG (In office) [facility] Work Phone: Start: 05-05-2015 End: 05-05-2015 Follow Up Appt 6 months Follow Up Appt 6 months [facility] Work Phone: Start: 05-05-2015 End: [...] Lipid panel [AGGREGATE] *Lipid Profile CC PCP [facility] Work Phone: Start: 05-05-2015 End: 05-30-2016 PFM PFM [facility] Work Phone: Start: 11-04-2014 End: [...] 6 months Follow Up Appt 6 months [facility] Work Phone: Start: 11-04-2014 End: 04-26-2015 Lipid panel [AGGREGATE] *Lipid Profile CC PCP [facility] Work Phone: Start: 11-04-2014 End: 04-26-2015 MMM MMM [facility] Work Phone: Start: 10-31-2014 End: 11-03-2014 *Hepatic Function Panel *Hepatic Function Panel [facility] Work Phone: Start: 10-31-2014 End: 11-03-2014 Lipid panel [AGGREGATE] *Lipid Profile CC PCP [facility] Work Phone: Start: 10-31-2014 End: [...] Function Panel *Hepatic Function Panel [facility] Work Phone: Start: 04-11-2014 End: 05-02-2014 Lipid panel [AGGREGATE] *Lipid Profile CC PCP [facility] Work Phone: Start: 04-11-2014 End: 05-02-2014 *Hepatic Function Panel *Hepatic Function Panel [facility] Work Phone: Start: 04-11-2014 End: 05-02-2014 Lipid panel [AGGREGATE] *Lipid Profile CC PCP [facility] Work Phone: Start: 10-25-2013 End: 11-09-2013 *Hepatic Function Panel *Hepatic Function Panel [facility] Work Phone: Start: 10-25-2013 End: 10-25-2013 Ecg routine ecg w/least 12 lds w/i&r EKG (In office) [facility] Work Phone: Start: 10-25-2013 End: 10-25-2013 Follow Up Appt 6 months Follow Up Appt 6 months [facility] Work Phone: Start: 10-25-2013 End: 11-09-2013 Lipid panel [AGGREGATE] *Lipid Profile CC PCP [facility] Work Phone: Start: 10-25-2013 End: 10-25-2013 MMM MMM [facility] Work Phone: Start: 10-25-2013 End: 10-25-2013 Nuclear stress test -exercise Nuclear stress test -exercise [facility] Work Phone: Start: 10-25-2013 End: 11-09-2013 *Hepatic Function Panel *Hepatic Function Panel [facility] Work Phone: Start: 10-25-2013 End: 10-25-2013 Electrocardiogram, complete EKG (In office) [facility] Work Phone: Start: 10-25-2013 End: 10-25-2013 Follow Up Appt 6 months Follow Up Appt 6 months [facility] Work Phone: Start: 10-25-2013 End: 11-09-2013 Lipid panel [AGGREGATE] *Lipid Profile CC PCP [facility] Work Phone: Start: 10-25-2013 End: 10-25-2013 MMM MMM [facility] Work Phone: Start: 10-25-2013 End: 10-25-2013 Nuclear stress test -exercise Nuclear stress test -exercise [facility] Work Phone: Start: 05-11-2013 End: 06-07-2013 *Hepatic Function Panel *Hepatic Function Panel [facility] Work Phone: Start: 05-11-2013 End: [...] Phone: Start: 01-11-2013 End: 01-11-2013 PFM PFM [facility] Work Phone: Start: 01-11-2013 End: 01-11-2013 Follow Up Appt 6 months Follow Up Appt 6 months [facility] Work Phone: Start: 01-11-2013 End: 01-11-2013 PFM PFM [facility] Work Phone: Start: 11-09-2012 End: 11-11-2012 *Hepatic Function Panel *Hepatic Function Panel [facility] Work Phone: Start: 11-09-2012 End: 11-11-2012 Lipid panel [AGGREGATE] *Lipid Profile [facility] Work Phone: Start: 11-09-2012 End: 11-11-2012 *Hepatic Function Panel *Hepatic Function Panel [facility] Work Phone: Start: 11-09-2012 End: 11-11-2012 Lipid panel [AGGREGATE] *Lipid Profile [facility] Work Phone: Start: 06-01-2012 End: 06-10-2012 *Hepatic Function Panel *Hepatic Function Panel [facility] Work Phone: Start: 06-01-2012 End: 12-30-2012 Follow Up Appt 6 months Follow Up Appt 6 months [facility] Work Phone: Start: 06-01-2012 End: 06-10-2012 Lipid panel [AGGREGATE] *Lipid Profile [facility] Work Phone: Start: 06-01-2012 End: 06-10-2012 *Hepatic Function Panel *Hepatic Function Panel [facility] Work Phone: Start: 06-01-2012 End: 12-30-2012 Follow Up Appt 6 months Follow Up Appt 6 months [facility] Work Phone: Start: 06-01-2012 End: 06-10-2012 Lipid panel [AGGREGATE] *Lipid Profile [facility] Work Phone: Start: 11-28-2011 End: 11-28-2011 Follow Up Appt 6 months Follow Up Appt 6 months [facility] Work Phone: Start: 11-28-2011 End: 11-28-2011 Follow Up Appt 6 months Follow Up Appt 6 months [facility] Work Phone: Lipid 1996 panel - S sharon or Plasma [facility] Patient Education [facility] Work Phone: Patient referral [facility] Work Phone: Troponin T.cardiac [Mass/volume] in Serum or Plasma by High sensitivity method [facility] Immunizations Immunization Date Immunization Notes Care Provider Chica miguel ángel 05-11-2021 Influenza, high dose seasonal Dr. Eduard Henley MD Work Phone: [facility] 05-11-2021 influenza, high dose seasonal, preservative-free Dr. Sergei Henley Work Phone: [facility] 06-25-[address] Sergei Henley Work Phone: [facility] 01-11-2014 tetanus and diphther ia toxoids, adsorbed, preservative free, for adult use (2 Lf of tetanus toxoid and 2 Lf of diphtheria toxoid) Dr. Sergei Henley Work Phone: [facility] Payers Date Payer Category Payer Private Health Insurance [id number] 2024 Self-pay [id number] 2024 Private Health Insurance [id number] 2011 Private Health Insurance [id number] Unknown [id number] 2.16.8 [id number] Unknown [id number] 2.16.8 [id number] Unknown [id number] 2.16.8 [id number] Unknown [id number] 2.16.8 [id number] Unknown [id number] 2.16.8 [id number] Unknown [id number] 2.16.8 [id number] Unknown [id number] 2.16.8 [id number] Unknown [id number] 2.16.8 [id number] Unknown [id number] 2.16.8 [id number] Unknown [id number] 2.16.8 [id number] Unknown [id number] 2.16.8 [id number] Unknown [id number] 2.16.8 [id number] Unknown [id number] 2.16.8 40.1.230119.3.579.2.462 Unknown [id number] 2.16.8 [id number] Unknown [id number] 2.16.8 [id number] Unknown [id number] 2.16.8 [id number] Social History Date Type Detail Facility Start: 10-30-2021 End: 09-25-2023 Tobacco smoking status WAIS Unknown if ever smoked [facility] Start: 10-23-2017 Heavy [facility] Start: 10-23-2017 None [facility] Start: 10-23-2017 Spouse/ Signif icant Other [facility] Start: 10-23-2017 Cigars [facility] Start: 1965 Sex Assigned At Male [facility] Start: 04-25-2023 - [facility] Start: 10-27-2024 End: 01-22-2025 Tobacco smoking status NHIS Ex-smoker (finding) [facility] Start: 11-07-2024 Sex Male (finding) [facility] Sex Male [facility] Medical Equipment Procedure Code Equipment Code Equipment Origin al Text Equipment Identifier Dates Drug-eluting coronary artery stent, zkx-qxjylcmzyxtop-ys lymer-coated ()[id number] 24 FDA Start: 04-24-2023 Drug-eluting coronary artery stent, mnf-iohbrctlubvjo-nd lymer-coated ()[id number] 02 FDA Start: 04-24-2023 Goals Date Patient Goal Desired Activity /State Functional Status Date Assessment Result Facility 06-15-2023 Functional status Activity Ability Indepe ndent [facility] Work Phone: 04-25-2023 Functional status Ambulates;Up a d jovon;Bathroom Privilege [facility] Work Phone: 10-31-2021 Functional status Independent [facility] Work Phone: Mental Status Date Assessment Result Facility 01-22-2025 Cognitive function Voice/Name [facility] Work Phone: 09-03-2024 Cognitive function Voice/Name [facility] Work Phone: 10-02-2023 Cognitive function Voice/Name [facility] Work Phone: 06-14-2023 Cognitive function Appropriate;Cooperativ e [facility] Work Phone: 04-25-2023 Cognitive function Voice/Name [facility] Work Phone: 04-23-2023 Cognitive function Voice/Name [facility] Work Phone: 10-31-2021 Cognitive function Voice/Name [facility] Work Phone: 10-30-2021 Cognitive function Voice/Name [facility] Work Phone: Clinical Notes 06-11-2010 to 06-10-2025 Note Date & Type Note Facility 06-10-2025 Note [facility] Medical Records Department [address] [place] [address] Discharge Summary 06/10/25 1054 MR#: [id number] Acct: [id number] Name: JOVANY MUÑIZ Rep #: [id number] : 1965 59 From: Kaden Auguste MD PCP: Dr. Eduard Henley MD Status:ADM FELICITA Location: [place] [address] Providers Date of Admission: 06/09/25 Primary Care Physician: Dr. Eduard Henley MD Reason For Visit: SYNCOPE, DIVERTICULITIS Diagnosis Discharge Diagnosis (1) Diverticulitis: Status: Acute Code(s): K57.92 - Diverticulitis of intestine, part unspecified, without perforation or abscess without bleeding (2) Syncope and collapse: Status: Acute Code(s): R55 - Syncope and collapse Medications at Discharge Home Medications aspirin 81 mg tablet,delayed release (Adult Low Dose Aspirin) 81 mg PO [facility] 08/06/17 cetirizine 10 mg tablet 10 mg PO PRN allergy symptoms 05/20/23 nitroglycerin 0.4 mg sublingual tablet (Nitrostat) 0.4 mg sublingual Q5-15M PRN CHEST PAIN #25 tabs 06/13/23 acetaminophen 500 mg capsule 1,000 mg PO Q8H PRN fever or pain 06/09/25 epinephrine 0.3 mg/0.3 mL injection, auto-injector 0.3 mg IM PRN allergy to scallops 06/09/25 essential 1 ea PO DAILY supplement 06/09/25 inclisiran 284 mg/1.5 mL subcutaneous syringe (Leqvio) 284 mg subcut .COMPLEX cholesterol 06/09/25 losartan 100 mg tablet 100 mg PO DAILY blood pressure 06/09/25 Held on 06/10/25. Instructions: Resume on 06/13/25. psyllium husk-calcium 1 gram-60 mg capsule (Metamucil Plus Calcium) 2 cap PO QHS constipation 06/09/25 amoxicillin 875 mg-potassium clavulanate 125 mg tablet 1 tab PO BID #20 tabs 06/10/25 Hospital Course Operations None Procedures 2-D Echocardiogram Summary of Care Provided Minutes Spent on Discharge: 33 Hospital Course: Per HPI: The patient is a 59 y/o M w/ PMHx: CKD stage II per GFR trending, CAD s/p PCI, HTN, HLD, Former tobacco use, Hx prior diverticulitis last 2-3 years prior who presents to the [facility] ED on 06/09/25 with history of increased lack of appetite, fatigue and malaise over the last approximate week with onset over the last 2 to 3 days mild left lower quadrant discomfort and loose stools as well as nausea but no emesis nor any fevers or chills and on day of presentation reported to have been using the bathroom with recurrent bowel movements with syncopal events twice in that setting and occurring once again when attempting to be up and moving with no head trauma but lightheadedness/dizziness prompting eventual ED evaluation to be cautious. Workup in the ED included T97.6, heart rate 80, BP 100/73, respiratory rate 16, 96% on room air, positive orthostatics, CBC with WC 5.0, Heenan 13, platelet 234 without marked shift, CMP with carbon oxide 19.5, anion gap 16, BUN/creatinine 14/0.98, GFR 87, glucose 141, hepatic profile unremarkable, troponin less than 6 x 2, urinalysis unremarkable, chest x-ray with no acute cardiopulmonary findings, EKG with sinus rhythm with no acute evidence of ischemia, CT abdomen and pelvis with moderate distal colonic diverticulosis, probable mild acute segmental colitis versus uncomplicated diverticulitis of the sigmoid colon, mild undulating aneurysmal dilatation of the infrarenal abdominal aorta. In the ED patient ministered 1 L normal saline, ciprofloxacin 500 mg p.o. x 1, Flagyl 500 mg p.o. x 1, morphine 4 mg IV x 1, Zofran 4 mg IV x 1. Hospital Course: 1. Vasovagal syncope secondary to dehydration from mild colitis versus diverticulitis???59-year-old male presented to the hospital with increased fatigue as well as loss of appetite that it started approximately a week ago as well as an episode of syncope/near syncope. He had orthostatic vital signs which demonstrated that he was orthostatic consistent with dehydration from his lack of p.o. intake and diarrhea from his colitis/diverticulitis. He was tested for C. difficile which was negative and he has had significant improvement on Zosyn and IV fluids. I did advance his diet and if he tolerates he is able to go home. I discussed with him the plan for discharge he expressed understanding of the risk and benefits of going home and would like to go home today. Will continue with Augmentin for 10 more days on discharge. He does have an echo pending however given the fact that this is likely dehydration and vasovagal I do not think that this can add much and therefore I do think it is safe for him to go home prior to the results coming back. 2. Coronary artery disease status post stent, essential hypertension, hyperlipidemia are chronic medical conditions which complicate his care. His home medications were continued where appropriate. He does have a mildly undulating aneurysmal dilatation of the infrarenal aorta, recommend outpatient monitoring and evaluation. Physical Exam Narrative General: Aler (more content not included)... [facility] 05-05-2025 Progress note [facility] 01-22-2025 Discharge summary [facility] 01-22-2025 Discharge summary [facility] 01-22-2025 Radiology Diagnostic study note [facility] Imaging Services [address] [place] [address] Chest 1 View (Portable) MR#: [id number] Acct: [id number] Name: JOVANY MUÑIZ Rep #: [id number] : 1965 M 59 From: Shanelle Ramos MD PCP: Dr. Eduard Henley MD Status: REG ER Study:Chest 1 View (Portable) Date of Exam: 01/22/25 Exam# [id number] Ordering Dr: Dvae Mercer MD PROCEDURE: CHEST 1 VIEW (PORTABLE) 01/22/2025 REASON FOR EXAM: CHEST PAIN TECHNIQUE: Frontal view of the chest. COMPARISON: Chest radiograph 09/03/2024. FINDINGS: Hardware: None. Heart: The heart size is normal. Lungs: No focal consolidation, pleural effusion or pneumothorax. Bones: Degenerative changes are identified within the thoracic spine. RAD/Chest 1 View (Portable) IMPRESSION: Negative Chest. Reading Location: [id number] CC: Dr. Eduard Henley MD; Dr. Robert Mercer MD ~ Associate Creative Director: Signed [facility] 01-22-2025 Discharge summary Note Date/Time January 22, 2025 5:53pm [facility] Medical Records Department [address] [place] [address] Emergency Department Summary 01/22/25 MR#: [id number] Acct: [id number] Name: JOVANY MUÑIZ Rep #:[id number] : 1965 59 From: Robert Mercer [...] Old myocardial infarction 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 (04/25/23) Home [...] in his cast. 5 out of 5 special effects artist strength. Equal and symmetrical radial pulses. Dorsi [...] % (Auto) 64.2 Lymph % (Auto) 22.1 Manati % (Auto) 10.1 H Eos % (Auto) [...] 01/22/25 14:25 IMPRESSION: Negative Chest. Reading Location: [facility] Chest x-ray, portable, single view interpreted by myself shows normal cardiac silhouette. Normal mediastinum. No goiter knob. Normal lung osman. No acuteprocess. Rhythm Strip Rhythm Strip: Sinus Rhythm Rate: 88 Ectopy: None EKG Initial EKG: Attestation: I personally reviewed and interpreted this EKG as follows: Interpretation: Sinus Rhythm and No Acute Injury Pattern Comments: Normal sinus rhythm rate 88 no acute signs of IL or ischemia. Discharge Plan Triage Chief Complaint: Chest Pain ED Provider: Robert Mercer Dx/Rx/DC Orders Clinical Impression: Chest pain, History of coronary artery disease, History of IL (myocardial infarction) Instructions: ED Chest Pain, Uncertain [...] bad we can find today. Print Language: Cymraes Disposition Disposition: Home, Self Care What to do if you have Problems For any increased pain, shortness of breath, bleeding, nausea or vomiting, chestpain, or any unexpected problems, contact your Primary Care Provider. Call [facility] ([phone]) or report to the closest Emergency Room. Call 911 if necessary. 01/22/25 175 <Electronically signed by Robert Mercer MD> Cosigner Signature (if applicable): CC: Dr. Eduard Henley MD ~ Signed [facility] Work Phone: 1(997) 278-853606-14-2025 Discharge summary Author Robert Mercer [facility] Note Date/Time January 22, 2025 10:1 6pm [facility] Medical Records Department [address] [place] [address] Emergency Department Summary 01/22/25 MR#: [id number] Acct: [id number] Name: JOVANY MUÑIZ Rep #:[id number] : 1965 59 From: Robert Mercer MD PCP: Dr. Eduard Henley MD Status :REG ER Location: ED HPI History of Present Illness Chief Complaint: Allergic Reaction Informant: patient and spouse/S.O. Onset/Context/Timing Onset: Today Context: Sudden Onset Timing: Continuous Current Severity: Moderate Maximum Severity: Moderate Narrative Narrative: 59-year-old male history of CAD IL stent. Seen earlier tonight for atypical back [...] Old myocardial infarction 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 (04/25/23) Home [...] with your doctor as needed. Print Language: Cymraes Disposition Disposition: Home, Self Care What to do if you have Problems For any increased pain, shortness of breath, bleeding, nausea or vomiting, chestpain, or any unexpected problems, contact your Primary Care Provider. Call [facility] ([phone]) or report to the closest Emergency Room. Call 911 if necessary. 01/22/25 2216 <Electronically signed by Robert Mercer MD> Cosigner Signature (if applicable): CC: Dr. Eduard Henley MD ~ Signed [facility] Work Phone: 1(872) 973-989404-01-2025 Evaluation note* Diagnosis Onset Date Resolution Status Admit Date Encounter for examination required by Department of 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) acute November 09, 2024 5:56am [facility] Work Phone: 1(583) 635-177912-27-2024 Evaluation note* Diagnosis Onset Date Resolution Status Admit Date HLD (hyperlipidemia) chronic Dece mber 2023 1:33pm Presence of coronary angioplasty implant and graft April 25, 2023 chronic August 062023 1:33pm [facility] Work Phone: 1(979) 292-848802-22-2024 Procedure [facility] 10-02-2023 Procedure [facility]02-22-2024 Procedure note [facility]02-22-2024 Procedure [facility] 06-15-2023 Progress note Author Rommel Youssef [facility] June 15, 2023 10:24am Note Date/Time June 15, 2023 7 :38am [facility] Medical Records Department [address] [place] [address] Progress Note - Hospitalist 06/15/23732 MR#: [id number] Acct: [id number] Name: JOVANY MUÑIZ Rep #:[id number] : 1965 57 From: Rommel Youssef DO PCP: Dr. Sergei Henley MD Status: ADM FELICITA Location: [place] [address] Subjective Subjective Feeling better. Tolerated full liquid [...] 83.8 H, Lymph % (Auto) 10.2 L, Manati % (Auto) 2.7, Eos % (Auto) 2.5, [...] Clarity Clear, Urine pH 7.0, Ur Specific [place] 1.010, Urine Protein Negative, Urine Glucose (UA) [...] Cosigner Signature (if applicable): CC: ~ Signed [facility] Work Phone: 1(607) 662-403811-04-2023 History and physical note Author Meliza Ramírez [facility] June 14, 2023 7:41pm Note Date/Time June 14, 2023 7 :41pm [facility] Medical Records Department [address] [place] [address] H&P Exam - Hospitalist 06/14/23 193 MR#: [id number] Acct: [id number] Name: JOVANY MUÑIZ Rep #:[id number] : 1965 57 From: Meliza Ramírez MD PCP: Dr. Sergei Henley MD Status: REG ER Location: ED HPI - General General Date of Admission: 06/14/23 Date of Service: 06/14/23 Chief Complaint: Abdominal pain HPI Narrative JOVANY MUÑIZ, is a 57-year-old male history of hypertension, coronary artery disease with stent placement 2 months ago who presented to [facility] 06/14/2023 with abdominal pain x1 [...] denied any withdrawal symptoms at that time. 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 (04/25/23) Essential hypertension History of coronary artery disease HLD (hyperlipidemia) Old myocardial infarction Presence of stent in coronary artery (04/25/23) Home Medications aspirin 81 mg tablet,delayed release (Adult Low Dose Aspirin) 81 mg PO QDAY health system 08/06/17 [History Last Taken 10/30/21] buspirone 5 [...] subcutaneous pen injector (Repatha SureClick) 140 mg [id number] #2 mL 06/13/23 [Rx Last Taken Unknown] [...] 83.8 H, Lymph % (Auto) 10.2 L, [place] % (Auto) 2.7, Eos % (Auto) 2.5, [...] Clarity Clear, Urine pH 7.0, Ur Specific [place] 1.010, Urine Protein Negative, Urine Glucose (UA) [...] documentation, 56minutes Charges/Coding Visit Charges Inpatient E&M: 68273 Init Hosp L2 06/14/231940 <Electronically signed by Meliza Ramírze MD> Cosigner Signature (if applicable): CC: Dr. Sergei Henley MD; Dr. Meliza Ramírez MD~ Signed [facility] Work Phone: 1(135) 461-131311-04-2023 Discharge summary Author Donta Swenson [facility] June 14, 2023 7:24pm Note Date/Time June 14, 2023 4 :52pm [facility] Medical Records Department [address] [place] [address] Emergency Department Summary 06/14/23 MR#: [id number] Acct: [id number] Name: JOVANY MUÑIZ Rep #:[id number] : 1965 57 From: Donta Swenson [...] statins. Few months ago he had an [place]/stent placement, and was restarted on a statin. [...] yesterday and he is not passing gas. [facility] Medical History 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 (04/25/23) Essential hypertension History of coronary artery disease HLD (hyperlipidemia) Old myocardial infarction Presence of stent in coronary artery (04/25/23) Home Medications aspirin 81 mg tablet,delayed release (Adult Low Dose Aspirin) 81 mg PO QDAY health system 08/06/17 [History Last Taken 10/30/21] buspirone 5 [...] subcutaneous pen injector (Repatha SureClick) 140 mg [id number] #2 mL 06/13/23 [Rx Last Taken Unknown] [...] 83.8 H Lymph % (Auto) 10.2 L [place] % (Auto) 2.7 Eos % (Auto) 2.5 [...] Clarity Clear Urine pH 7.0 Ur Specific [place] 1.010 Urine Protein Negative Urine Glucose (UA) [...] Sigmoid diverticulitis Disposition Disposition: Acute Care Hospital [facility] What to do if you have Problems For any increased pain, shortness of breath, bleeding, nausea or vomiting, chestpain, or any unexpected problems, contact your Primary Care Provider. Call [facility] ([phone]) or report to the closest Emergency Room. Call 911 if necessary. 06/14/231923 <Electronically signed by Donta Swenson MD> Cosigner Signature (if applicable): CC: Dr. Sergei Henley MD ~ Signed [facility] Work Phone: 1(265) 103-110611-04-2023 Discharge summary [facility] June 14, 2023 7:24pm Note Date/Time June 14, 2023 4 :52pm [facility] Medical Records Department [address] [place] [address] Emergency Department Summary 06/14/23 MR#: [id number] Acct: [id number] Name: JOVANY MUÑIZ Rep #:[id number] : 1965 57 From: Donta Swenson [...] statins. Few months ago he had an [place]/stent placement, and was restarted on a statin. [...] yesterday and he is not passing gas. [facility] Medical History 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 (04/25/23) Essential hypertension History of coronary artery disease HLD (hyperlipidemia) Old myocardial infarction Presence of stent in coronary artery (04/25/23) Home Medications aspirin 81 mg tablet,delayed release (Adult Low Dose Aspirin) 81 mg PO QDAY health system 08/06/17 [History Last Taken 10/30/21] buspirone 5 [...] subcutaneous pen injector (Repatha SureClick) 140 mg [id number] #2 mL 06/13/23 [Rx Last Taken Unknown] [...] Presence of coronary angioplasty implant and graft (~11/09/10) Social History Smoking Status: Former smoker how [...] 83.8 H Lymph % (Auto) 10.2 L [place] % (Auto) 2.7 Eos % (Auto) 2.5 [...] Clarity Clear Urine pH 7.0 Ur Specific [place] 1.010 Urine Protein Negative Urine Glucose (UA) [...] Sigmoid diverticulitis Disposition Disposition: Acute Care Hospital [facility] What to do if you have Problems For any increased pain, shortness of breath, bleeding, nausea or vomiting, chestpain, or any unexpected problems, contact your Primary Care Provider. Call [facility] ([phone]) or report to the closest Emergency Room. Call 911 if necessary. 06/14/231923 <Electronically signed by Donta Swenson MD> Cosigner Signature (if applicable): CC: Dr. Sergei Henley MD ~ Signed [facility] Work Phone: 1(261) 426-719309-15-2023 Discharge summary Author Rommel Youssef [facility] April 25, 2023 12:09pm Note Date/Time April 25, 2023 12:06pm [facility] Medical Records Department [address] [place] [address] Discharge Summary 04/25/23 1203 MR#: [id number] Acct: [id number] Name: JOVANY MUÑIZ Rep #:[id number] : 1965 57 From: Rommel Youssef DO PCP: Dr. Sergei Henley MD Status: ADM IN Location: [facility] [id number] Providers Date of Admission: 04/23/23 Primary [...] Clear Calc 89.08, Est GFR (MDRD) Af [id number], Est GFR (MDRD) Non-Af 83, BUN/Creatinine Ratio [...] not ordered:: Drug Interaction Done w/ Acute IL measure.: Yes Documented LVEF (%): 60 Discharge [...] 90 Patient Comments: Referrals / Follow Up: [facility] [Provider Group] - Within 1 Month Sergei Henley MD [Primary Care Provider] - Within 2 Weeks Disposition Disposition (needs filled in before D/C Order can be placed): Home, Self Care Charges/Coding Visit Charges Inpatient E&M: 62817 Disch Hosp >30min 04/25/23 1209 <Electronically signed by Rommel Youssef DO> Cosigner Signature (if applicable): CC: Dr. Sergei Henley MD; Dr. Rommel Youssef DO~ Signed [facility] Work Phone: 1(475) 171-448809-15-2023 Progress note Author Rommel Youssef [facility] April 25, 2023 12:03pm Note Date/Time April 25, 2023 8:51am [facility] Medical Records Department [address] [place] [address] Progress Note - Hospitalist 04/25/23 0850 MR#: [id number] Acct: [id number] Name: JOVANY MUÑIZ Rep #:[id number] : 1965 57 From: Rommel Youssef DO PCP: Dr. Sergei Henley MD Status: ADM IN Location: [place] [address] Reason for Visit Reason for Visit: Diagnoses Hyperlipidemia, unspecified (04/23/23) Transient cerebral ischemic attack, unspecified (04/23/23) Essential (primary) hypertension (04/23/23) Non-ST elevation (NSTEMI) myocardial infarction (04/23/23) 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 (04/23/23) Chest [...] Clear Calc 89.08, Est GFR (MDRD) Af [id number], Est GFR (MDRD) Non-Af 83, BUN/Creatinine Ratio [...] occurred during sexual encounter while taking sildenafil. 09/15/23 1203 <Electronically signed by Rommel Youssef DO> Cosigner Signature (if applicable): CC: ~ Signed [facility] Work Phone: 1(610) 658-128709-15-2023 Evaluation note* Diagnosis Onset Date Resolution Status Admit Date Essential hypertension chronic Se ptember 2024 8:12am HLD (hyperlipidemia) chronic Sept ember 2024 8:12am Presence of coronary angioplasty implant and graft April 25, 2023 chronic April 122024 8:12am [facility] Work Phone: 1(370) 306-910509-15-2023 Progress note Author Jose Lockwood [facility] April 25, 2023 7:23am Note Date/Time April 25, 2023 7:23am [facility] Medical Records Department [address] [place] [address] Progress Note - Cardiology 04/25/23719 MR#: [id number] Acct: [id number] Name: JOVANY MUÑIZ Rep #:[id number] : 1965 57 From: Jose Lockwood MD PCP: Dr. Sergei Henley MD Status: ADM IN Location: [place] [address] Subjective Subjective Patient seen and evaluated appears [...] hr 04/24/23 07:02: Troponin I High Sens 83474 H* 04/24/23 10:33: Activated Clotting Time 197 [...] Orientation: awake and alert Coordination / Balance: sqjxnv-bf-icfr test normal and gphf-xt-bdwx test normal Speech: speech normal Psych affect [...] intensity statin. 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 transplanted heart: mcgrath heart QualifiedCode(s): I25.10 - 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 PLAN: He [...] Cosigner Signature (if applicable): CC: ~ Signed [facility] Work Phone: 1(348) 679-748709-14-2023 Progress note Author Rommel Youssef [facility] April 24, 2023 2:53pm Note Date/Time April 24, 2023 8:27am [facility] Medical Records Department [address] [place] [address] Progress Note - Hospitalist 04/24/2320 MR#: [id number] Acct: [id number] Name: JOVANY MUÑIZ Rep #:[id number] : 1965 57 From: Rommel Youssef DO PCP: Dr. Sergei Henley MD Status: ADM IN Location: [place] [address] Subjective Subjective Feels well. Some mild chest [...] % (Auto) 48.0, Lymph % (Auto) 32.1, [place]% (Auto) 12.1 H, Eos % (Auto) 6.3 [...] % (Auto) 64.2, Lymph % (Auto) 20.9, [place]% (Auto) 9.2, Eos % (Auto) 4.3, Baso [...] 106, Calcium 9.2, Troponin I High Sens 78342 H*, Triglycerides 258 H, Cholesterol 210 H, LDL Cholesterol 87, VLDL Cholesterol 52 H, HDL Cholesterol 71 04/24/23 07:02: Troponin I High Sens 44125 H* Radiography Diagnostic Testing: Radiology Impression Brain [...] Reading Location ID and State: 994 / [employer] , Service support , Head/Neck CTA 04/23/23 21:34 IMPRESSION: Normal CTA Head with contrast. Moderate (60%) carotid stenosis bilaterally. Patent vertebral arteries bilaterally. Electronically Signed: Kris White MD at 22:05 EDT Reading Location ID and State: 994 / [employer] , Service support , ADDENDUM: 04/23/23 2213 IMPRESSION: Normal CTA Head with contrast. Moderate (60%) carotid stenosis bilaterally. Patent vertebral arteries bilaterally. N.B. : The above Results were Read Back by Kris White MD to Perez Dave DO, and understanding confirmed on 04/23/2023 22:06:20 (ET). Electronically Signed: Kris White MD at 22:05 EDT Reading Location ID and State: 994 / [employer] , Service support , Chest X-Ray 04/23/23 22:14 IMPRESSION: Normal x-ray examination of the chest. Electronically Signed: Kris White MD at 22:32 EDT Reading Location ID and State: [email or web address] / [employer] , Service support , Physical Exam [...] Orientation: awake and alert Coordination / Balance: nqlivp-rj-blqv test normal and awvn-cn-kzqi test normal Speech: speech normal Psych affect [...] is anticoagulated. Charges/Coding Visit Charges Inpatient E&M: 26597 [facility] Hosp L2 04/24/23 7383 <Electronically signed by Rommel Youssef DO> Cosigner Signature (if applicable): CC: ~ Signed [facility] Work Phone: 1(318) 545-824309-14-2023 History and physical note Author Ar Torres [facility] April 24, 2023 10:35am Note Date/Time April 23, 2023 11:01pm [facility] Medical Records Department [address] [place] [address] H&P Exam - Hospitalist 04/23/23 2301 MR#: [id number] Acct: [id number] Name: JOVANY MUÑIZ Rep #:[id number] : 1965 57 From: Ar Torres MD PCP: Dr. Sergei Henley MD Status: ADM IN Location: [facility] [id number] HPI - General General Date of [...] and patient was not acandidate of thrombolytics. 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 Essential hypertension HLD (hyperlipidemia) Old myocardial infarction Presence of stent in coronary artery (~06/19/10) Home Medications aspirin 81 mg tablet,delayed release (Adult Low Dose Aspirin) 81 mg PO QDAY health system 08/06/17 [History Last Taken 10/30/21] clopidogrel 75 [...] % (Auto) 48.0, Lymph % (Auto) 32.1, [place]% (Auto) 12.1 H, Eos % (Auto) 6.3 [...] Reading Location ID and State: 994 / [employer] , Service support , ADDENDUM: 04/23/232201 [...] Reading Location ID and State: 994 / [employer] , Service support , ADDENDUM: 04/23/23 [...] EKG tracing did not show ST elevation [place]. ASA 81 mg p.o. daily; and Plavix [...] documentation, 70minutes. Charges/Coding Visit Charges Inpatient E&M: 94192 Init Hosp L3 04/24/23 1035 <Electronically signed by Ar Torres MD> Cosigner Signature (if applicable): CC: Dr. Sergei Henley MD; Dr. Ar Torres MD~ Signed [facility] Work Phone: 1(412) 206-897809-14-2023 Consult note Author Jose Lockwood [facility] April 24, 2023 10:00am Note Date/Time April 24, 2023 7:34am [facility] Medical Records Department [address] [place] [address] Consultation - Cardiology 04/24/23 0726 MR#: [id number] Acct: [id number] Name: JOVANY MUÑIZ Rep #:[id number] : 1965 57 From: Jose Lockwood MD PCP: Dr. Sergei Henley MD Status: ADM IN Location: [place] [address] Assessment & Plan Assessment/Plan (1) NSTEMI (non-ST [...] intensity statin. 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 [facility] Medical History (Updated 04/24/23 @ 07:[address] 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 Essential hypertension HLD (hyperlipidemia) Old myocardial infarction Presence of stent in coronary artery (~06/19/10) Home Medications aspirin 81 mg tablet,delayed release (Adult [facility] D[facility]) [facility] [History Last Taken 10/30/21] clopidogrel 75 [...] % (Auto) 48.0, Lymph % (Auto) 32.1, [place]% (Auto) 12.1 H, Eos % (Auto) 6.3 [...] % (Auto) 64.2, Lymph % (Auto) 20.9, [place]% (Auto) 9.2, Eos % (Auto) 4.3, Baso [...] 106, Calcium 9.2, Troponin I High Sens 26949 H*, Triglycerides 258 H, Cholesterol 210 H, LDL Cholesterol 87, VLDL Cholesterol 52 H, HDL Cholesterol 71 Cardiology Labs/Tests 04/23/23 21:30: WBC 5.3, RBC 4.28 L, Hgb 14.0, Hct 42.3, MCV 98.8 H, MCH 32.7 H,MCHC 33.1, Plt Count 226, MPV 9.5, Immature Gran % (Auto) 0.400, Neut % (Auto) 48.0, Lymph % (Auto) 32.1, [place] % (Auto) 12.1 H, Eos % (Auto) [...] % (Auto) 64.2, Lymph % (Auto) 20.9, [place] % (Auto) 9.2, Eos % (Auto) 4.3, [...] Reading Location ID and State: 994 / [employer] , Service support , ADDENDUM: 04/23/23 2202 IMPRESSION: Negative Brain CT without contrast. N.B. : The above Results were Read Back by Kris White MD to Perez Dave DO, and understanding confirmed on 04/23/2023 21:55:56 (ET). Electronically Signed: Kris White MD at 21:54 EDT Reading Location ID and State: [email or web address] / [employer] , Service support , Head/Neck CTA 04/23/23 21:34 IMPRESSION: Normal CTA Head with contrast. Moderate (60%) carotid stenosis bilaterally. Patent vertebral arteries bilaterally. Electronically Signed: Kris White MD at 22:05 EDT Reading Location ID and State: 994 / [employer] , Service support , ADDENDUM: 04/23/23 2213 IMPRESSION: Normal CTA Head with contrast. Moderate (60%) carotid stenosis bilaterally. Patent vertebral arteries bilaterally. N.B. : The above Results were Read Back by Kris White MD to Perez Dave DO, and understanding confirmed on 04/23/2023 22:06:20 (ET). Electronically Signed: Kris White MD at 22:05 EDT Reading Location ID and State: 994 / [employer] , Service support , Chest X-Ray 04/23/23 22:14 IMPRESSION: Normal x-ray examination of the chest. Electronically Signed: Kris White MD at 22:32 EDT , 04/24/23 1000 <Electronically signed by Jose Lockwood MD> Cosigner Signature (if applicable): CC: Dr. Sergei Henley MD; Dr. Jose Lockwood MD; Dr. Ar Torres MD~ Signed [facility] Work Phone: 1(222) 964-957409-14-2023 Discharge summary Author Perez [facility] April 24, 2023 12:00am Note Date/Time April 23, 2023 9:39pm [facility] Medical Records Department [address] [place] [address] Emergency Department Summary 04/23/23 MR#: [id number] Acct: [id number] Name: JOVANY MUÑIZ Rep #:[id number] : 1965 57 From: Perez Dave DO PCP: Dr. Sergei Henley MD Status: ADM IN Location: [place] [address] HPI History of Present Illness Chief Complaint: [...] in his chest. Slight shortness of breath. 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 Will obtain EKG uponarrival back to the room as well as basic labs and troponin. Patient will be evaluated by stroke neurologist via robot from [facility]. Patient was evaluated by [facility] neurology. When he arrived back from [...] of [address] elevation [place] noted although the computerthought there was ST elevation [place]. CT scan of the brain without contrast [...] % (Auto) 48.0 Lymph % (Auto) 32.1 [place] % (Auto) 12.1 H Eos % (Auto) [...] 21:54 EDT Reading Location ID and State: [employer] / [employer] , Service support , ADDENDUM: 04/23/23 2202 IMPRESSION: Negative Brain CT without contrast. N.B. : The above Results were Read Back by Kris White MD to Perez Dave DO, and understanding confirmed on 04/23/2023 21:55:56 (ET). Electronically Signed: Kris White MD at 21:54 EDT Reading Location ID and State: [employer] / [employer] , Service support , Head/Neck CTA 04/23/23 21:34 IMPRESSION: Normal CTA Head with contrast. Moderate (60%) carotid stenosis bilaterally. Patent vertebral arteries bilaterally. Electronically Signed: Kris White MD at 22:05 EDT Reading Location ID and State: [employer] / [employer] , Service support , ADDENDUM: 04/23/23 [...] rate of [address] elevation [place] noted. Hehad some nonspecific ST changes. Prior EKG tracings: available for review Prior: Unchanged Discharge Plan Dx/Rx/DC Orders Clinical Impression: Brain TIA, History of coronary artery disease, Chest pain Disposition Disposition: Acute Care Hospital [facility] Discharge Date/Time: 04/23/23 23:43 What to do if you have Problems For any increased pain, shortness of breath, bleeding, nausea or vomiting, chestpain, or any unexpected problems, contact your Primary Care Provider. Call [facility] ([phone]) or report to the closest Emergency Room. Call 911 if necessary. 04/24/23 0000 <Electronically signed by Perez Dave DO> Cosigner Signature (if applicable): CC: Dr. Sergei Henley MD ~ Signed [facility] Work Phone: 1(491) 100-602911-01-2010 Evaluation note* Diagnosis Onset Date Resolution Status Atherosclerotic heart diseas e of mcgrath coronary artery without angina pectoris chronic Essential hypertension chron ic HLD (hyperlipidemia) chronic Presence of stent in coronary artery June, chronic [facility] Work Phone: 1(353) 366-273611-01-2010 Evaluation note* Diagnosis Onset Date Resolution Status Atherosclerotic heart diseas e of mcgrath coronary artery without angina pectoris chronic Essential hypertension chron ic HLD (hyperlipidemia) chronic Presence of stent in coronary artery June, chronic Chest pain, atypical acute [facility] Work Phone: Discharge summary Author Rommel Youssef [facility] June 15, 2023 10:31am Note Date/Time June 15, 2023 1 0:26am [facility] Medical Records Department [address] [place] [address] Discharge Summary 06/15/23 1024 MR#: [id number] Acct: [id number] Name: JOVANY MUÑIZ Rep #:[id number] : 1965 57 From: Rommel Youssef DO PCP: Dr. Sergei Henley MD Status: ADM FELICITA Location: [place] [address] Providers Date of Admission: 06/14/23 Primary Care [...] Low Dose Aspirin) 81 mg PO QDAY health system 08/06/17 buspirone 5 mg tablet 5 mg PO BID 04/23/23 coenzyme Q10 100 mg capsule 100 mg PO DAILY 05/05/23 cetirizine 10 mg tablet 10 mg PO DAILY PRN allergy symptoms 05/20/23 clopidogrel 75 mg tablet (Plavix) 75 mg PO QDAY #93 tabs 05/20/23 losartan 50 mg tablet 50 mg PO DAILY 05/20/23 evolocumab 140 mg/mL subcutaneous pen injector (Repatha SureClick) 140 mg [id number] #2 mL 06/13/23 nitroglycerin 0.4 mg sublingual [...] 83.8 H, Lymph % (Auto) 10.2 L, [place] % (Auto) 2.7, Eos % (Auto) 2.5, [...] Clarity Clear, Urine pH 7.0, Ur Specific [place] 1.010, Urine Protein Negative, Urine Glucose (UA) [...] (Auto) 81.6 H, Lymph % (Auto)10.5 L, [place] % (Auto) 4.6, Eos % (Auto) 2.6, [...] Discharge Diet: Low fat / Low cholesterol (Scurry diet, advance as tolerated.) Meaningful Use Info [...] months would recommend following up with a medical officer psychiatry. Discharge Orders/Prescriptions Prescriptions: New amoxicillin-pot clavulanate 875-125 [...] Qty: 25 3RF Referrals / Follow Up: [facility] [Provider Group] - Within 3 Months Sergei Henley MD [Primary Care Provider] - Within 2 Weeks Disposition Disposition (needs filled in before D/C Order can be placed): Home, Self Care Charges/Coding Visit Charges Inpatient E&M: 00732 Disch Hosp >30min 06/15/23 1031 <Electronically signed by Rommel Youssef DO> Cosigner Signature (if applicable): CC: Dr. Sergei Henley MD; Dr. Rommel Youssef DO~ Signed [facility] Work Phone: Evaluation noteNo assessment information available [facility] Work Phone: Evaluation note* Diagnosis Onset Date Resolution Status Brain TIA acute Chest pain acute History of coronary artery disease acute [facility] Work Phone: Evaluation note* Diagnosis Onset Date Resolution Status Brain TIA acute Chest pain acute History of coronary artery disease acute NSTEMI (non-ST elevated myocardial infarction) acute Atherosclerotic heart diseas e of mcgrath coronary artery without angina pectoris chronic Essential hypertension chron ic HLD (hyperlipidemia) [facility] Work Phone: Evaluation note* Diagnosis Onset Date Resolution Status Essential hypertension chron ic HLD (hyperlipidemia) chronic Brain TIA resolved Chest pain resolved NSTEMI (non-ST elevated myoc ardial infarction) resolved Essential hypertension chron ic HLD (hyperlipidemia) chronic Presence of stent in coronary artery April 25, 023 [facility] Work Phone: Evaluation note* Diagnosis Onset Date Resolution Status Essential hypertension chron ic HLD (hyperlipidemia) chronic Brain TIA resolved Chest pain resolved NSTEMI (non-ST elevated myoc ardial infarction) resolved Essential hypertension chron ic HLD (hyperlipidemia) chronic Presence of stent in coronary artery April 25 chronic Intractable abdominal pain a cute Sigmoid diverticulitis acute Essential hypertension chron ic Presence of stent in coronary artery April 25, [facility] Work Phone: Evaluation note* Diagnosis Onset Date Resolution Status HLD (hyperlipidemia) chronic Brain TIA resolved Chest pain resolved NSTEMI (non-ST elevated myocardial infarction) resolved HLD (hyperlipidemia) chronic Sigmoid diverticulitis acute Intractable abdominal pain r esolved [facility] Work Phone: Evaluation note* Diagnosis Onset Date Resolution Status Essential hypertension chron ic HLD (hyperlipidemia) chronic Sigmoid diverticulitis acute Essential hypertension chron ic Intractable abdominal pain r esolved GERD (gastroesophageal reflux disease) acute Sigmoid diverticulitis acute Myalgia acute Palpitation acute HLD (hyperlipidemia) chronic Presence of coronary angiopl asty implant and graft April 25, 2023 [facility] Work Phone: Evaluation note* Diagnosis Onset Date Resolution Status Sigmoid diverticulitis acute Essential hypertension chron ic Intractable abdominal pain r esolved GERD (gastroesophageal reflux disease) acute Sigmoid diverticulitis acute Myalgia acute Palpitation acute HLD (hyperlipidemia) chronic Presence of coronary angiopl asty implant and graft April 25, 2023 [facility] Work Phone: History and physical note Author Meliza Ramírez [facility] June 14, 2023 7:41pm Note Date/Time June 14, 2023 7 :41pm [facility] Medical Records Department [address] [place] [address] H&P Exam - Hospitalist 06/14/231930 MR#: [id number] Acct: [id number] Name: JOVANY MUÑIZ Rep #:[id number] : 1965 57 From: Meliza Ramírez MD PCP: Dr. Sergei Henley MD Status: REG ER Location: ED HPI - General General Date of Admission: 06/14/23 Date of Service: 06/14/23 Chief Complaint: Abdominal pain HPI Narrative JOVANY MUÑIZ, is a 57-year-old male history of hypertension, coronary artery disease with stent placement 2 months ago who presented to [facility] 06/14/2023 with abdominal pain x1 [...] denied any withdrawal symptoms at that time. 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 (04/25/23) Essential hypertension History of coronary artery disease HLD (hyperlipidemia) Old myocardial infarction Presence of stent in coronary artery (04/25/23) Home Medications aspirin 81 mg tablet,delayed release (Adult Low Dose Aspirin) 81 mg PO QDAY health system 08/06/17 [History Last Taken 10/30/21] buspirone 5 [...] subcutaneous pen injector (Repatha SureClick) 140 mg [id number] #2 mL 06/13/23 [Rx Last Taken Unknown] [...] 83.8 H, Lymph % (Auto) 10.2 L, [place] % (Auto) 2.7, Eos % (Auto) 2.5, [...] Clarity Clear, Urine pH 7.0, Ur Specific [place] 1.010, Urine Protein Negative, Urine Glucose (UA) [...] 17:53 EDT Reading Location ID and State: [id number] Tel , Service support , Assessment & Plan Assessment/Plan (1) Intractable [...] documentation, 56minutes Charges/Coding Visit Charges Inpatient E&M: 01426 Init Hosp L2 06/14/231940 <Electronically signed by Meliza Ramírez MD> Cosigner Signature (if applicable): CC: Dr. Sergei Henley MD; Dr. Meliza Ramírez MD~ Signed [facility] Work Phone: History and physical note Author Olegario Segal [facility] October 02, 2023 7:28am Note Date/Time October 02, 2023 7:28am [facility] Medical Records Department [address] [place] [id number] History & Physical Exam 10/02/23 0725 MR#: [id number] Acct: [id number] Name: ANTONINOJOVANY JOSE Rep #:[id number] : 1965 58 From: Olegario Blackburn PCP: Dr. Sergei Henley MD Status: [facility] Location: [place] [address] History and Physical Date of Admission: 10/02/23 Date of Service: 07/17/23 MR#: [id number] Acct: [id number] Name: JOVANY MUÑIZ Rep #: [id number] : 1965 Provider: Dr. Olegario Segal MD Age/Sex: 57/M Location: [facility] Status: Signed Intake Vital Signs 06/14/2321:15 07/17/2308:17 Height 6 ft 6 ft Weight: 213 lb 2 oz BMI 28.9 BP 125/88 H Blood Pressure Location Rt brachial Position Sitting Respiration 18 Pulse 78 Pulse Source Monitor Temp 97.2 F L Temp Source Temporal Pulse Oximetry (%) 98 Oxygen Delivery Method room air Intake Visit Reasons: DIVERTICULITIS Chief Complaint: Diverticulitis Heel Buffer Required: No Is patient in pain?: No Allergies No Known Allergies Allergy (Verified 07/17/23 08:20) Medications aspirin 81 mg tablet,delayed release (Adult Low Dose Aspirin) 81 mg PO QDAY health system 08/06/17 [History Confirmed 07/17/23] coenzyme Q10 100 [...] subcutaneous pen injector (Repatha SureClick) 140 mg [id number] #2 mL 06/13/23 [Rx Confirmed 07/17/23] nitroglycerin [...] Olegario Segal MD) 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 He shares that the pain "just left" this week. He shares that he may have had a slightly delayed presentation as he initially blamed his symptoms on adverse effects from statin therapy. He has a history ofmultiple coronary stents?the last of which were placed this past April. He says that he was "loaded up on statins" after the stents and figured that his lower abdominal pain was related to this medication change. He otherwise describes that he had very small bowel movements around the time of his flare but near constant cramping "like he had to go". He denies any urinary changes. He confirms this was his first and only episode to date. He denies any associated fevers or chills. He shares that his big question around this diagnosis is why he has right-sided pain when he has been advised by others thathis pain should be left-sided. Mr. Muñiz generally describes his bowel habits as "normal". They have approximately 3 per day (all in the morning) and spend roughly 1 minute on the toilet with only some significant straining. They have not noticed recent bleeding or dark stools. They do not regularly take fiber supplements, but he does share that he recently started taking enema supplement after he was convinced by an thee Brown to trial this medication. He also shares [...] that he will need to have a cart driver with him the day of the [...] Henley MD; Dr. Olegario Segal MD~ Signed [facility] Work Phone: Hospital Discharge instructions Additional Instructions All your labs, EKG, chest x-ray were unremarkable. Follow-up with your doctor. Return if you are feeling worse. Nothing bad we can find today.[facility] Work Phone: Hospital Discharge instructions Additional Instructions Benadryl as needed for itching. Avoid shrimp or shellfish seems that you have an allergy to it. Follow-up with your doctor as needed.[facility] Work Phone: Progress note Author Mitchell Dubois [facility] Note Date/Time May 05, 2025 9:39am [facility] [address] [place] [address] OFFICE VISIT Date of Service: 05/05/25 MR#: [id number] Acct: [id number] Name: JOVANY MUÑIZ Rep #: [id number] : 1965 Provider: EUGENIA Dubois Age/Sex: 59/M Location: [facility] Status: Signed HPI HPI History of Present Illness Details: This is a 59-year-old white male who presents today for outpatient cardiovascular follow-up regarding a history of underlying CAD, PCI, hyperlipidemia, and hypertension. He was noted to have inferior myocardial infarction with stenting to his obtuse marginal, proximal to mid circumflex, proximal to mid LAD in 2009. 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 Follow Up: 12-15 Months (REHABILITATION TEAM LEAD) Coding Level of Care Code Off vis,est,level [...] signed by Mitchell BELLO> Date _ Mitchell BELLO Cosigner Signature: Date (if applicable) CC: ~ [facility] Work Phone: Reason for referral (narrative)No reason for referral information [facility]ol[facility] Work Phone: Chief Complaint and Reason for Visit Chief Complaint 1 y fu CHEST PAIN Reason for Visit Atherosclerotic hear t disease of mcgrath coronary artery without angina pectoris Essential hypertension HLD (hyperlipidemia) Presence of stent in coronary artery Chief Complaint 1 y fu CHEST PAIN CHEST PAIN CHEST PAIN Reason for Visit Atherosclerotic hear t disease of mcgrath coronary artery without angina pectoris Essential hypertension [...] elevated myocardial infarction) 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 Essential hypertension HLD (hyperlipidemia) Chief Complaint CHEST PAIN, TIA CHEST PAIN, TIA CHEST PAIN, TIA CHEST PAIN, TIA CHEST PAIN, TIA S/P [facility] 15 Reason for Visit Essential hypertensi on HLD (hyperlipidemia) Brain TIA Chest pain NSTEMI (non-ST elevated myocardial infarction) Essential hypertension HLD (hyperlipidemia) Presence of stent in coronary artery Chief Complaint CHEST PAIN, TIA CHEST PAIN, TIA CHEST PAIN, TIA CHEST PAIN, TIA CHEST PAIN, TIA S/P [facility] 15 DIVERTICULITIS Reason for Visit Essential hypertensi on HLD (hyperlipidemia) Brain TIA Chest pain NSTEMI (non-ST elevated myocardial infarction) Essential hypertension HLD (hyperlipidemia) Presence of stent in coronary artery Intractable abdominal pain Sigmoid diverticulitis Essential hypertension Presence of stent in coronary artery Chief Complaint CHEST PAIN, TIA CHEST PAIN, TIA CHEST PAIN, TIA CHEST PAIN, TIA CHEST PAIN, TIA S/P [facility] 04/25 DIVERTICULITIS DIVERTICULITIS Reason for Visit Essential hypertensi on HLD (hyperlipidemia) Brain TIA Chest pain NSTEMI (non-ST elevated myocardial infarction) Essential hypertension HLD (hyperlipidemia) Presence of stent in coronary artery Intractable abdominal pain Sigmoid diverticulitis Essential hypertension Presence of stent in coronary artery Chief Complaint CHEST PAIN, TIA CHEST PAIN, TIA CHEST PAIN, TIA CHEST PAIN, TIA CHEST PAIN, TIA S/P [facility] 04/25 DIVERTICULITIS DIVERTICULITIS EORDER Reason for Visit HLD (hyperlipidemia) Brain TIA Chest pain NSTEMI (non-ST elevated myocardial infarction) HLD (hyperlipidemia) Sigmoid diverticulitis Intractable abdominal pain Chief Complaint S/P [facility] 15 DIVERTICULITIS DIVERTICULITIS EORDER DIVERTICULITIS 3 M FU [...] graft May 05, 2025 8:12am Advance Directives No Advanced Directives Records Found Advance Directive Response Recorded Date/ Time Living Will No October 30, 2021 7:09pm Power of Crm Marketing Analyst No October 30 7:09pm Advance Directive Response Recorded Date/ Time Living Will Yes April 23, 2023 9:57pm Power of Crm Marketing Analyst Yes April 9:57pm Name of Medical Power of Crm Marketing Analyst Jesus Muñiz April 23, 2023 9:57pm Advance Directive Response Recorded Date/ Time Name of Medical Power of Crm Marketing Analyst Ellie Muñiz April 24, 2023 12:15am Living Will Yes April 24, 2023 12:15am Power of Crm Marketing Analyst Yes April 12:15am Advance Directive Response Recorded Date/ Time Living Will No June 14 5:16pm Power of Crm Marketing Analyst No June 14, 2023 5:16pm Name of Medical Power of Crm Marketing Analyst Ellie Muñiz April 24, 2023 12:15am Advance Directive Response Recorded Date/ Time Name of Medical Power of Crm Marketing Analyst Ellie Muñiz June 14, 2023 8:15pm Living Will Yes June 14 8:15pm Power of Crm Marketing Analyst Yes June 14, 2023 8:15pm Name of Medical Power of Crm Marketing Analyst Ellie Muñiz April 23, 2023 11:15pm Advance Directive Response Recorded Date/ Time Name of Medical Power of Crm Marketing Analyst Ellie Muñiz June 14, 2023 8:15pm Living Will Yes June 14 8:15pm Power of Crm Marketing Analyst Yes June 14, 2023 8:15pm Advance Directive Response Recorded Date/ Time Name of Medical Power of Crm Marketing Analyst Ellie Muñiz June 14, 2023 8:15pm Name of Medical Power of Crm Marketing Analyst September 25, 2023 3:03pm Living Will Yes September 25, 024 3:03pm Power of Crm Marketing Analyst Yes September 25, 2023 3:03pm Advance Directive Response Recorded Date/ Time Living Will Yes April 24, 2023 12:15am Do you have a Healthcare Pow er of Crm Marketing Analyst? Yes April 24, 2023 12:15am Living Will Yes September 03 1:26am Do you have a Healthcare Pow er of Crm Marketing Analyst? Yes September 03, 2024 1:26am Name of Medical Power of Crm Marketing Analyst ELLIE MUÑIZ September 03, 2024 1:26am Advance Directive Response Recorded Date/ Time Do you have a Healthcare Power of Crm Marketing Analyst? Yes January 22, 2025 2:10pm Name of Medical Power of Crm Marketing Analyst Ellie Muñiz January 22, 2025 2:10pm Advance Directive Response Recorded Date/ Time Do you have a Healthcare Power of Crm Marketing Analyst? Yes January 22, 2025 9:41pm Do you have a Healthcare Power of Crm Marketing Analyst? Yes January 22, 2025 2:10pm Name of Medical Power of Crm Marketing Analyst Ellie Muñiz January 22, 2025 2:10pm Summary [...] Other Provider Active Dr. Rommel Youssef , DO Other Provider Active Team Status: Active Member Role Status Dates Dr. Sergei Henley MD Primary Care Provider Activ e Dr. Perez Dave , DO Emergency Provider Active Dr. Ar Torres MD Admit Provider, Other Provide r Active Dr. Jose Lockwood MD Other Provider Active Dr. Rommel Youssef , DO Attending Provider, Other Provid er Active [...] Provider, Refe rring Provider Active Mitchell Dubois STRIPPER SHOVEL OPERATOR, STRIPPER SHOVEL OPERATOR-C Attending Provider Active Team Status: Inactive Member [...] Primary Care Provider Activ e Mitchell Dubois STRIPPER SHOVEL OPERATOR, STRIPPER SHOVEL OPERATOR-C Attending Provider, Referring Pro vider Active Team [...] 2024 End: November 03, 2024 Mitchell Dubois STRIPPER SHOVEL OPERATOR, STRIPPER SHOVEL OPERATOR-C Attending Provider Active S tart: November 03, 2024 End: November 03, 2024 Mitchell Dubois STRIPPER SHOVEL OPERATOR, STRIPPER SHOVEL OPERATOR-C Referring Provider Active S tart: November 03, 2024 End: November 03, 2024 Team Status: Active Member Role Status Dates Dr. Eduard Henley MD Primary Care Provider Acti ve Start: November 03, 2024 Mitchell Dubois STRIPPER SHOVEL OPERATOR, STRIPPER SHOVEL OPERATOR-C Referring Provider Active S tart: November 03, 2024 Mitchell Dubois STRIPPER SHOVEL OPERATOR, STRIPPER SHOVEL OPERATOR-C Other Provider Active Start : November 03, 2024 Dr. Jose Lockwood MD Attending Provider Active S tart: November 03, 2024 Team Status: Inactive Member Role Status Dates Dr. Eduard Henley MD Primary Care Provider Acti ve Start: November 09, 2024 End: November 09, 2024 Dr. Eduard Henley MD Referring Provider Active Start: November 09, 2024 End: November 09, 2024 Mg Lewis PA, PA Attending Provider Active Start: November 09, [...] 2025 End: May 05, 2025 Mitchell Dubois STRIPPER SHOVEL OPERATOR, STRIPPER SHOVEL OPERATOR-C Attending physician Active Start: May 05, 2025 End: May 05, 2025 (unrecognized sect ion and content) No Status Records Found INFORMATION SOURCE (unrecogn ized section and content) DATE CREATED AUTHOR 06/15/2025 [facility] FOR RECORDS PERTAINING TO PATIENTS WHO ARE [...] BE BASED ON THE PRIMARY CLINICAL RECORDS. [employer] [facility]. provides no warranty or guarantee of the accuracy or completeness of information in this document.
[2025-06-21 07:25] LABS: Cholesterol 161 mg/dL (<=200); Low Density Lipoprotein Calc. 72 mg/dL; Triglycerides 81 mg/dL; Very Low Density Lipoprotein 16 mg/dL (5-40); cholesterol:hdl ratio screen 2.19
== END | disposition home or self-care (01) ==
LOC: LAB 05:55
PROVIDERS: PCP Family Medicine; Referring Provider Family Medicine; Visit Provider Family Medicine
DX: E78.5 Hyperlipidemia, unspecified (principal)
CPT/HCPCS: 36415; 80061